=== PATIENT | male | born 1945 | race Caucasian/White ===

== ENCOUNTER → 2017-10-14 08:15 | Outpatient (CLI) | payer MEDICARE, OTHER, SELFPAY ==
[2017-10-14 10:46] LABS: AST(SGOT) 17 U/L (15-37); Alanine Aminotransfer ALT/SGPT 22 U/L (16-61); Albumin, Serum 3.8 g/dL (3.2-5.0); Alkaline Phosphatase 96 U/L (45-117); Bilirubin, Direct 0.12 mg/dL (0.00-0.30); Cholesterol 137 mg/dL (200); Globulin 3.3 g/dL (2.2-4.2); High Density Lipoprotein 37 mg/dL; Protein, Total 7.1 g/dL (6.4-8.2); Triglycerides 101 mg/dL; Very Low Density Lipoprotein 20 mg/dL (5-40)
== END ==
PROVIDERS: Family Provider Internal Medicine; PCP Internal Medicine; Visit Provider Internal Medicine Cardiovascular Disease
DX: E78.5 Hyperlipidemia, unspecified (principal); Z79.899 Other long term (current) drug therapy
CPT/HCPCS: 36415; 80061; 80076

== ENCOUNTER → 2018-06-06 13:16 | Outpatient (CLI) | payer MEDICARE, OTHER, SELFPAY ==
--- NOTE | 2018-06-06 13:20 | CT_ITS ---
STUDY: CT ABDOMEN AND PELVIS WITH AND WITHOUT CONTRAST REASON FOR EXAM: Male, 73 years old. Microhematuria RADIATION DOSAGE (If Supplied By Facility): CTDIvol = ( 22.36 ) mGy, DLP = ( 2009.42 ) mGycm TECHNIQUE: Transaxial images were obtained from the dome of the diaphragm to the symphysis pubis without oral contrast. 100mL ml of Isovue 300 contrast was administered. Sagittal and coronal images were reconstructed. Individualized dose optimization techniques were used for this CT. COMPARISON: None. FINDINGS: The lung bases are clear. Multiple scattered hepatic cysts ranging in size from 4 mm to 3.5 cm.. No dilated intrahepatic biliary radicles. The gallbladder is normal with no calcifications within it. There is no pericholecystic fluid collection or streakiness The spleen is normal. The pancreas is normal. Both adrenals are normal. A solid 1.5 cm left renal mass. Multiple benign right renal cysts. The stomach is normal. There is no bowel distention, acute appendicitis or diverticulitis. No constricting lesions are seen in large bowel. The abdominal wall is intact with no hernias. There is no ascites or any free intraperitoneal air. No indication of epiploic appendagitis The vascular structures in the retroperitoneum are normal. There is no retrocrural, retroperitoneal or mesenteric adenopathy. The bones and joints are normal. The urinary bladder is normal.--The prostate is normal. There is no inguinal or pelvic adenopathy. There is no inguinal hernia. . CT/CT Abd/Pelvis W/WO Contrast IMPRESSION: Multiple benign hepatic cysts. A 1.5 cm solid left renal mass. Multiple benign right renal cyst. No acute appendicitis or diverticulitis Electronically Signed: Madan Marie MD at 5:04 EDT Tel , Service support ,
[2018-06-06 13:31] LABS: EGFR FINGERSTICK > 60.0000 mL/min (>60)
== END ==
PROVIDERS: Family Provider Internal Medicine; PCP Internal Medicine; Referring Provider Nurse Practitioner Adult Health; Visit Provider Nurse Practitioner Adult Health
DX: R31.29 Other microscopic hematuria (principal)
CPT/HCPCS: 74178; Q9967

== ENCOUNTER → 2018-06-10 10:56 | Outpatient (CLI) | payer MEDICARE, OTHER, SELFPAY ==
--- NOTE | 2018-06-10 11:01 | US_ITS ---
STUDY: RENAL ULTRASOUND - COMPLETE REASON FOR EXAM: Male, 73 years old. Left renal mass. Abnormal CT abdomen and pelvis. TECHNIQUE: Ultrasound evaluation of the kidneys was performed with real-time and static rucker-scale imaging. COMPARISON: CT abdomen and pelvis June 06, 2018 FINDINGS: RIGHT KIDNEY: Normal location of the right kidney, which is normal in size. The right kidney measures 11.3 x 5.9 x 6.0 cm. There is a normal cortex of the right kidney. The renal cortex measures 1.8 cm. Reveal cortical cysts are identified. One is at the anterolateral margin of the midpole, measuring 3.0 x 2.6 x 2.7 cm. Another is at the medial margin of the upper pole, measuring 1.1 x 1.2 x 0.9 cm. There is at the anterior midpole, measuring 6 x 9 x 7 mm. There are no right renal calculi. There is no right hydronephrosis. DISTAL RIGHT URETER: There is non-visualization of the distal right ureter. There is no demonstrated right ureterovesical junction calculus. There is a visualized right ureteral jet. LEFT KIDNEY: Normal location of the left kidney, which is normal in size. The left kidney measures 11.2 x 5.7 x 5.7 cm. There is a normal cortex of the left kidney. The renal cortex measures 1.7 cm. An incompletely defined 1.95 x 2.3 x 1.9 cm mildly hypoechoic soft tissue mass is seen at the anterolateral mid to lower pole. There are also cortical cysts. There is a partially septated 2.0 x 1.3 x 1.5 cm cyst in the anterior mid to lower pole. A 1.4 x 1.4 x 1.0 cm cortical cyst is seen in the anterolateral upper to midpole. An 11 x 10 mm cortical cyst emanates from the tip of the lower pole. There are no left renal calculi. There is no left hydronephrosis. DISTAL LEFT URETER: There is non-visualization of the distal left ureter. There is no demonstrated left ureterovesical junction calculus. There is a visualized left ureteral jet. BLADDER: The distended urinary bladder has a volume of 230 ml. The bladder measures 9.9 x 5.8 x 4.6 cm. There is a normal wall thickness of the distended urinary bladder. There is no demonstrated mass within the urinary bladder. There are no demonstrated bladder calculi. US/Kidney and Bladder IMPRESSION: 1. Bilateral renal cortical cysts, as described. No hydronephrosis. 2. 2.3 cm solid mass in the mid to lower pole of the left kidney. The appearance is nonspecific, but neoplastic malignancy must be considered until proven otherwise. One might consider ultrasound-guided kidney biopsy or, if more imaging is performed, MRI. 3. Unremarkable urinary bladder. Electronically Signed: Michael Mackay MD at 18:00 EDT , Service support ,
== END ==
PROVIDERS: Family Provider Internal Medicine; PCP Internal Medicine; Referring Provider Nurse Practitioner Adult Health; Visit Provider Nurse Practitioner Adult Health
DX: N28.89 Other specified disorders of kidney and ureter (principal)
CPT/HCPCS: 76770

== ENCOUNTER → 2018-09-02 10:45 | Outpatient (CLI) | payer MEDICARE, OTHER, SELFPAY ==
--- NOTE | 2018-09-02 10:49 | US_ITS ---
STUDY: THYROID ULTRASOUND REASON FOR EXAM: Male, 73 years old. Follow up thyroid nodules TECHNIQUE: Transverse and longitudinal ultrasound evaluation of the thyroid was performed with real-time and static tong-scale imaging. COMPARISON: October 10, 2015 FINDINGS: RIGHT LOBE: 4.9 x 2.1 x 2.0 cm. Homogeneous echotexture. There is a hypoechoic nodule in the lower pole measuring 16.0 x 12.7 x 14.0 mm. This previously measured 18.4 x 10.3 x 15.9 mm. LEFT LOBE: 4.4 x 2.0 x 2.2 cm. Homogeneous echotexture. There is a heterogeneous mixed echogenicity nodule in the upper pole measuring 8.1 x 4.3 x 6.1 mm. This previously measured 6.2 x 4.3 x 6.9 mm. There is another hypoechoic nodule in the upper pole measuring 3.9 x 4.1 x 4.1 mm. This previously measured 6.5 x 5.1 x 4.5 mm. ISTHMUS: 6.0 mm. The regional lymph nodes are unremarkable. US/Thyroid IMPRESSION: No significant changes in the bilateral thyroid nodules. Electronically Signed: Kimberly Olivas MD at 10:47 EST Tel Direct: [phone], Service support ,
== END ==
PROVIDERS: Family Provider Internal Medicine; PCP Internal Medicine; Referring Provider Internal Medicine; Visit Provider Internal Medicine
DX: E04.1 Nontoxic single thyroid nodule (principal)
CPT/HCPCS: 76536

== ENCOUNTER → 2018-09-16 06:51 | Outpatient (CLI) | payer MEDICARE, OTHER, SELFPAY ==
[2018-09-08 13:40] VITALS: BMI 28.1
--- NOTE | 2018-09-16 12:38 | STRESSREP ---
Stress Test Report Date: 09/16/2018 Procedure: Stress nuclear imaging study Indications: Chest pain; CAD; PCI Consent: Per the patient Procedure: The patient exercised on a Eder protocol for 7 minutes completing stage I and 1 minute of stage II achieving a peak heart rate of 142 beats per minute (95% predicted maximal heart rate) with a peak blood pressure was 184/92 mmHg and a peak MET capacity of 8 METS. The baseline ECG demonstrated normal sinus rhythm. The peak exercise ECG demonstrated no obvious ECG changes. There were no cardiac dysrhythmias pretest, during exercise, or recovery. The functional capacity was considered good. The patient had no complaint of chest discomfort during exercise or recovery. The examination was discontinued secondary to dyspnea. Impression: 1. Technically adequate (percent predicted maximal heart rate greater than 85%) exercise tolerance test 2. Peak exercise ECG with no obvious ECG changes 3. Nuclear images pending Myocardial perfusion imaging study: Technique: The patient was injected with 11.1 mci of technetium 99 M Cardiolite and subsequently rest SPECT Cardiolite nuclear imaging was obtained in the horizontal long, vertical long, and short axis views. The patient exercised on a Eder protocol for 7 minutes completing stage I and 1 minute of stage II achieving a peak heart rate of 142 beats per minute (95% predicted maximal heart rate) with a peak blood pressure was 84/92 mmHg and a peak MET capacity of 8 METS. The patient was injected with 33.5 mci of technetium 99 M Cardiolite and subsequently stress SPECT Cardiolite nuclear imaging was obtained in the horizontal long, vertical long, and short axis views. A gated Cardiolite study at peak stress was obtained. Interpretation: Rest and stress SPECT Cardiolite nuclear imaging status post realignment, normalization, and attenuation correction, demonstrates at rest areas of extra cardiac/gastrointestinal tracer uptake near the inferior segments which appears to be less prominent following stress. At rest there appears to be relative uniform tracer uptake. Following stress there is notation of an area of diminished tracer uptake in portions of the basal towards mid inferior segments. There is end systolic thickening and brightening. The gated Cardiolite study demonstrates myocardial thickening and normal motion. The reported LVEF is 59%. Impression: 1. Rest and stress SPECT Cardiolite nuclear imaging demonstrate myocardial perfusion changes status post stress demonstrating an area of diminished tracer uptake in portions of the basal to mid inferior segments appearing compatible with an area of stress induced myocardial ischemia. 2. The gated Cardiolite study reports an LVEF of 59%. This note was generated using a voice recognition system and there may be incorrect words, spelling or punctuation that were not noted when reviewing the office note prior to saving.
--- OUTSIDE RECORDS SUMMARY | 2018-11-18 07:05 | XMS RPT_ITS | Continuity of Care Document ---
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 Denisse Unavailable Unavailable Slarb 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Noaha Unavailable Unavailable Unavailable Unavailable Problems Name Dates Details Annual Medicare Phyiscal WITHOUT abnormal findings (Renamed from Encounter for general adult medical examination without abnormal findings) (Z00.00, V70.9) Status: Active Anticoagulated (Z79.01, V58.61) Status: Active Anxiety (F41.9, 300.00) Status: Active BMI 27.0-27.9,adult (Z68.27, V85.23) Status: Active BMI 27.0-27.9,adult (Z68.27, V85.23) Status: Active BMI 27.0-27.9,adult (Z68.27, V85.23) Status: Active BMI 28.0-28.9,adult (Z68.28, V85.24) Status: Active CAD (coronary artery disease) (I25.10, 414.00) Status: Active Current nonsmoker (Z78.9, V49.89) Status: Active Encounter for screening for malignant neoplasm of colon (Renamed from Special screening for malignant neoplasms, colon) (Z12.11, V76.51) Comments: last scope 2012 good for 10 yrs Status: Active Hematuria, microscopic (R31.29, 599.72) Status: Active Hyperlipidemia (E78.5, 272.4) Comments: on less statin less achy less tired - # still good Status: Active Hypertensive heart disease without heart failure (I11.9, 402.90) Comments: ID March 17 stents-- mild elevation adn progression -- did dose adj at 12/11 ov Status: Active Need for prophylactic vaccination and inoculation against influenza (Renamed from Need for immunization against influenza) (Z23, V04.81) Status: Active Need for zoster vaccination (Z23, V04.89) Status: Active Nonsmoker (Z78.9, V49.89) Status: Active Non-smoker (Z78.9, V49.89) Status: Active Renal mass, left (N28.89, 593.9) Status: Active Screening for prostate cancer (Z12.5, V76.44) Status: Active Smoker (F17.200, 305.1) Comments: social smoker, only on the weekends will have 1-2 Status: Active Thyroid nodule (E04.1, 241.0) Status: Active Upper respiratory infection (J06.9, 465.9) Status: Active Vitamin B12 deficiency (E53.8, 266.2) Status: Active Vitamin D deficiency, unspecified (E55.9, 268.9) Status: Active Medications Name Dates Details ASPIRIN LOW DOSE, 81MG (Oral Tablet) 1 QD for 0 days Refills: 0 Ordered:09-Aug-2009 Trisha Loya Atorvastatin Calcium 80 MG Oral Tablet 1 Tablet qod for 0 days Quantity: 30 {Tablet} Refills: 3 Ordered:05-May-2018 Sandra Madrigal DO, DO, Kathleen Start : 05-May-2018 Active Escitalopram Oxalate 20 MG Oral Tablet 1 (one) Tablet Tablet qhs for 0 days Quantity: 30 {Tablet} Refills: 3 Ordered:25-Apr-2018 Denisse Alvarado LPN Start : 17-Apr-2018 Active Lexapro 20 MG Oral Tablet 1 Tablet QD for 0 days Quantity: 30 {Tablet} Refills: 3 Ordered:07-Jul-2018 Sandra Madrigal DO, DO, Kathleen Start : 07-Jul-2018 End : 17-Apr-2018 Active Lisinopril 10 MG Oral Tablet 1 (one) Tablet Tablet qd for 0 days Quantity: 30 {Tablet} Refills: 3 Ordered:25-Apr-2018 Denisse Alvarado LPN Start : 17-Apr-2018 Active NITROGLYCERIN, 0.4MG (Sublingual Tablet Sublingual) 1 q 5minutes x3 (0.4 MG) Active Toprol XL 25 MG Oral Tablet Extended Release 24 Hour 1 Tablet ER 24HR qd for 0 days Quantity: 30 {Tablet} Refills: 6 Ordered:07-Jul-2018 Sandra Madrigal DO, DO, Kathleen Start : 07-Jul-2018 Active ALBUTEROL SULFATE, (2.5 MG/3ML)0.083% (Inhalation Nebulization Solution) 1 Nebulized Soln 1-2 puffs q 6h for 0 days Quantity: 1 {Nebulized_Soln} Refills: 0 Ordered:24-Apr-2012 Denisse Alvarado LPN Start : 08-Feb-2009 End : 24-Apr-2012 Inactive Augmentin 875-125 MG Oral Tablet 1 Tablet Tablet bid for 14 days Quantity: 28 {Tablet} Refills: 0 Ordered:14-Nov-2017 Denisse Alvarado LPN Start : 14-Nov-2017 End : 28-Nov-2017 Inactive Comments:Take with food BACTRIM DS, 800-160MG (Oral Tablet) 1 (one) Tablet bid for 0 days Quantity: 20 {Tablet} Refills: 0 Ordered:13-Sep-2009 Denisse Alvarado LPN Start : 03-Aug-2009 Inactive BACTROBAN NASAL, 2% (Nasal Ointment) 1 (one) Ointment bid for 5 days Quantity: 1 {Gram(s)} Refills: 0 Ordered:09-Aug-2009 Allan Darlene Canas Start : 09-Aug-2009 End : 14-Aug-2009 Inactive BIAXIN XL PAC, 500MG (Oral Tablet Extended Release 24 Hour) 2 (two) Tablet ER 24HR daily for 10 days Quantity: 20 {Tablet_ER_24HR} Refills: 0 Ordered:08-Feb-2009 Ivett DAVISSuzanne E Start : 08-Feb-2009 End : 18-Feb-2009 Inactive Brilinta 90 MG Oral Tablet 1 bid for 0 days Refills: 0 Ordered:27-Aug-2017 Denisse Ann Start : 21-Mar-2015 End : 27-Aug-2017 Inactive BYSTOLIC, 5MG (Oral Tablet) 1 Tablet qd for 0 days Quantity: 30 {Tablet} Refills: 3 Ordered:22-Oct-2008 Denisse Alvarado LPN End : 01-Nov-2008 Inactive Cetirizine Hydrochloride 10mg 1 tab PRN Inactive CHERATUSSIN AC, 100-10MG/5ML (Oral Syrup) 1 Teaspoon(s) q6-8 hrs prn for cough for 0 days Quantity: 6 {Ounce(s)} Refills: 0 Ordered:04-Nov-2013 Denisse Alvarado LPN Start : 05-Jun-2013 End : 04-Nov-2013 Inactive Clotrimazole 10 MG Mouth/Throat Cynthia 1 (one) Cynthia Cynthia 5 x daily for 10 days Quantity: 50 {Cynthia} Refills: 0 Ordered:05-Nov-2017 Josselin Sanchez Start : 05-Nov-2017 End : 15-Nov-2017 Inactive CLOTRIMAZOLE, 10MG (Mouth/Throat Lozenge) 1 Lozenge 5 x daily for 14 days Quantity: 60 {Lozenge} Refills: 0 Ordered:05-Jun-2013 Ivett DAVIS Antonette Start : 05-Jun-2013 End : 19-Jun-2013 Inactive ERGOCALCIFEROL, 52355LUVF (Oral Capsule) 1 Capsule weekly for 0 days Quantity: 12 {Capsule} Refills: 3 Ordered:03-Nov-2012 Denisse Alvarado LPN Start : 12-May-2012 End : 03-Nov-2012 Inactive GUAIATUSSIN AC, 100-10MG/5ML (Oral Syrup) 1 Syrup 1tsp qhs for 0 days Quantity: 6 {Syrup} Refills: 0 Ordered:13-Sep-2009 Denisse Alvarado LPN Start : 12-Jan-2009 Inactive KAPIDEX, 60MG (Oral Capsule Delayed Release) 1 (one) Capsule DR qd for 15 days Refills: 0 Ordered:12-Oct-2009 Natalia Ratliff RN Start : 13-Sep-2009 End : 28-Sep-2009 Inactive LEVAQUIN, 500MG (Oral Tablet) 1 Tablet Daily for 10 days Quantity: 10 {Tablet} Refills: 0 Ordered:20-Sep-2009 Natalia Ratliff RN Start : 20-Sep-2009 End : 30-Sep-2009 Inactive LOPRESSOR, 50MG (Oral Tablet) 1 (one) Tablet bid for 0 days Quantity: 60 {Tablet} Refills: 3 Ordered:24-Jul-2011 Rona Painter LPN Start : 23-Jul-2011 End : 24-Jul-2011 Inactive NORVASC, 5MG (Oral Tablet) 1 (one) Tablet qd for 0 days Quantity: 30 {Tablet} Refills: 0 Ordered:07-Dec-2014 Suzanne Root CNP Start : 25-May-2014 End : 07-Dec-2014 Inactive PREDNISONE, 20MG (Oral Tablet) 1 Tablet TAD for 0 days Quantity: 20 {Tablet} Refills: 0 Ordered:13-Sep-2009 Denisse Alvarado LPN Start : 08-Feb-2009 Inactive Comments:Take 2 for 5 days, 1 for 5 days, 1/2 for 5 days PROVENTIL HFA, 108 (90 Base)MCG/ACT (Inhalation Aerosol Solution) 1 or 2 puffs Aerosol Soln q 6hours prn for 0 days Quantity: 1 {Aerosol_Soln} Refills: 1 Ordered:25-May-2014 Denisse Alvarado LPN Start : 04-Nov-2012 End : 25-May-2014 Inactive Comments:called to [facility] 11-04-12 sari ZOSTAVAX, 15337MSO/0.65ML (Subcutaneous Solution Reconstituted) 1 For Solution injection for 0 days Quantity: 1 {For_Solution} Refills: 0 Ordered:24-Apr-2012 Denisse Alvarado LPN Start : 21-Aug-2010 End : 24-Apr-2012 Inactive ANITA-D 12 HOUR, 60-120MG (Oral Tablet Extended Release 12 Hour) 1 (one) Tablet ER 12HR bid for 0 days Refills: 0 Ordered:10-Jan-2009 Lolita Stephenson Start : 10-Jan-2009 End : 08-Feb-2009 Discontinued CIPROFLOXACIN HCL, 0.3% (Ophthalmic Solution) 2 (two) Drop(s) QID for 0 days Quantity: 1 {Bottle(s)} Refills: 0 Ordered:14-Apr-2007 Lolita Stephenson Start : 14-Apr-2007 End : 13-Jul-2008 Discontinued CORICIDIN HBP COLD/FLU, 2-325MG (Oral Tablet) 1 (one) Tablet daily for 0 days Refills: 0 Ordered:13-Jul-2008 Lolita Stephenson Start : 13-Jul-2008 End : 12-Jan-2009 Discontinued Lisinopril-Hydrochlorothiazide 20-25 MG Oral Tablet 1/2 Tablet qd for 30 days Quantity: 30 {Tablet} Refills: 3 Ordered:17-Apr-2018 Sandra Madrigal DO, DO, Kathleen Start : 17-Apr-2018 End : 17-Apr-2018 Discontinued Zithromax Z-Kaiser 250 MG Oral Tablet 1 Tablet TAD for 0 days Quantity: 1 {Tablet} Refills: 0 Ordered:14-Nov-2017 Josselin Sanchez Start : 05-Nov-2017 End : 14-Nov-2017 Discontinued Allergies and Adverse Reactions Name Dates Details No Known Drug Allergies (Allergy) Status: Active Past Medical History Name Dates Details Abdominal pain, acute, left upper quadrant (R10.12, 789.02) Status: Inactive as of 03-Nov-2012 Abdominal pain, acute, right upper quadrant (R10.11, 789.01) Status: Inactive as of 03-Nov-2012 Abnormal blood chemistry (R79.9, 790.6) Comments: low platelets Status: Inactive as of 07-Dec-2014 Abnormal chest x-ray (R93.89, 793.2) Status: Resolved as of 07-Dec-[address] of the abdomen (R93.5, 793.6) Status: Resolved as of 03-Nov-2012 Abnormal CXR (793.1) Status: Resolved as of 07-Dec-2014 Abnormal lung sounds (R09.89, 786.7) Status: Resolved as of 07-Dec-2014 Accelerated essential hypertension (I10, 401.0) Status: Resolved as of 07-Dec-2014 Acute sinusitis, unspecified (J01.90, 461.9) Status: Inactive as of 07-Feb-2009 Asthma (J45.909, 493.90) Status: Inactive as of 07-Dec-2014 Body aches (R52, 780.96) Status: Inactive as of 19-Dec-2017 Bronchitis (J40, 490) Status: Inactive as of 04-Nov-2013 Che infection of mouth (112.0) Status: Resolved as of 07-Dec-2014 Candidiasis (B37.9, 112.9) Status: Inactive as of 19-Dec-2017 Carcinoma in situ of skin, unspecified (D04.9, 232.9) Status: Resolved as of 03-Nov-2012 Ceruminosis, bilateral (Renamed from Excessive cerumen in both ear canals) (H61.23, 380.4) Status: Inactive as of 19-Dec-2017 Ceruminosis, right (Renamed from Excessive cerumen in ear canal, right) (H61.21, 380.4) Status: Inactive as of 19-Dec-2017 Controlled diabetes mellitus (E11.9, 250.00) Comments: such good control if haic stays great can make visit q 6mo Status: Resolved as of 19-Dec-2017 Cough (R05, 786.2) Status: Inactive as of 27-Nov-2017 Cough (R05, 786.2) Status: Inactive as of 21-Mar-2015 Diverticulitis (K57.92, 562.11) Comments: new dx Status: Resolved as of 17-Oct-2009 Dizziness (R42, 780.4) Status: Inactive as of 21-Mar-2015 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) Status: Resolved as of 07-Dec-2014 Encounter for Medicare annual wellness exam (Z00.00, V70.0) Comments: -09-10 colonoscopy 6-14 repeat in 5 years, PSA 11-04-13, all immunizations are up to date, told to get Prevnar 13 at local pharmacy, reviewed all tests and questions Status: Inactive as of 21-Mar-2015 Epigastric pain (R10.13, 789.06) Status: Inactive as of 03-Nov-2012 Folliculitis (L73.9, 704.8) Status: Resolved as of 08-May-2012 Hemorrhoids (K64.9, 455.6) Status: Inactive as of 03-Nov-2012 Hypertension, essential, benign (I10, 401.1) Status: Inactive as of 05-Apr-2016 Low HDL (under 40) (E78.6, 272.5) Status: Inactive as of 07-Dec-2014 Malaise and fatigue (R53.81, 780.79) Status: Resolved as of 03-Nov-2012 Nasal Congestion (478.1) Status: Inactive as of 07-Feb-2009 Nasal congestion (R09.81, 478.19) Comments: mucinex Status: Resolved as of 07-Dec-2014 Nasal drainage (J34.89, 478.19) Status: Inactive as of 19-Dec-2017 Need for prophylactic vaccination and inoculation against influenza (Z23, V04.81) Comments: Lot:[id number]:02/23/16Amt:0.5mlRoute:IMSite: L DltdGiven By: ERLIN Call signed Status: Inactive as of 26-Sep-2015 Need for prophylactic vaccination and inoculation against other specified disease (Z23, V05.8) Status: Inactive as of 21-Mar-2015 Otalgia, right (H92.01, 388.70) Status: Inactive as of 27-Nov-2017 Other fatigue (R53.83, 780.79) Comments: will ck lab and do mid afternoon snack adn chg diet and see how feesl Status: Inactive as of 28-Aug-2018 Other specified viral infection, in conditions classified elsewhere and of unspecified site (B97.89, 079.89) Status: Resolved as of 02-Feb-2009 Preop examination (Z01.818, V72.84) Status: Inactive as of 21-Mar-2015 Preop examination (Z01.818, V72.84) Status: Inactive as of 19-Dec-2017 Serous conjunctivitis, unspecified laterality (H10.239, 372.01) Status: Resolved as of 02-Feb-2009 Smoker (F17.200, 305.1) Status: Inactive as of 26-Sep-2015 SOB (shortness of breath) (R06.02, 786.05) Comments: Wants to do Spirometry on his next OV with Dr. Madrigal 11/27. Status: Inactive as of 19-Dec-2017 Unspecified asthma with (acute) exacerbation (J45.901, 493.92) Status: Resolved as of 08-May-2012 Unspecified Diagnosis Status: Inactive as of 21-Mar-2015 Procedures Procedure Dates Details Angioplasty Completed Comments: x2 [facility] 03-15-15 [facility] Appendectomy Completed Cataract Extraction-Right Completed Comments: Dr. Paul Facial surgery Completed Vasectomy Completed Date Value Details 10-Jun-2018 Kidney and Bladder Result: Comments: See Note; NOTES: [facility] Imaging Services [address] [place] [address] Kidney and Bladder MR#: [id number] Acct: [id number] Name: RICKI BHARDWAJ Rep #: [id number] OB: 1945 M 73 From: Jerome Mackay MD PCP: Catherine Madrigal DO Status: REG CLI Study: Kidney and Bladder Date of Exam: 06/10/18 Exam# [id number] Ordering Dr: Yessica Siu THORACIC SURGEON-C STUDY: RENAL ULT RASOUND - COMPLETE REASON FOR EXAM: Male, 73 years old. Left renal mass. Abnormal CT abdomen and pelvis. TECHNIQUE: Ultrasound evaluation of the kidneys was performed with real-time and static rucker-sc beto imaging. COMPARISON: CT abdomen and pelvis June 06, 2018 FINDINGS: RIGHT KIDNEY: Normal location of the right kidney, which is normal in size. The right kid poonam measures 11.3 x 5.9 x 6.0 cm. There is a normal cortex of the right kidney. The renal cortex measures 1.8 cm. Reveal cortical cysts are identified. One is at the anterolateral margin of the midpole, measuring 3.0 x 2.6 x 2.7 cm. Another is at the medial margin of the upper pole, measuring 1.1 x 1.2 x 0.9 cm. There is at the anterior midpole, measuring 6 x 9 x 7 mm. There are no right renal calculi . There is no right hydronephrosis. DISTAL RIGHT URETER: There is non-visualization of the distal right ureter. There is no demonstrated right ureterovesical junction calculus. There is a visualized ri ght ureteral jet. LEFT KIDNEY: Normal location of the left kidney, which is normal in size. The left kidney measures 11.2 x 5.7 x 5.7 cm. There is a normal cortex of the left kidney. The renal cortex m easures 1.7 cm. An incompletely defined 1.95 x 2.3 x 1.9 cm mildly hypoechoic soft tissue mass is seen at the anterolateral mid to lower pole. There are also cortical cysts. There is a partially septate d 2.0 x 1.3 x 1.5 cm cyst in the anterior mid to lower pole. A 1.4 x 1.4 x 1.0 cm cortical cyst is seen in the anterolateral upper to midpole. An 11 x 10 mm cortical cyst emanates from the tip of the lo wer pole. There are no left renal calculi. There is no left hydronephrosis. DISTAL LEFT URETER: There is non-visualization of the distal left ureter. There is no demonstrated left ureterovesical juncti on calculus. There is a visualized left ureteral jet. BLADDER: The distended urinary bladder has a volume of 230 ml. The bladder measures 9.9 x 5.8 x 4.6 cm. There is a normal wall thickness of the dis tended urinary bladder. There is no demonstrated mass within the urinary bladder. There are no demonstrated bladder calculi. US/Kidney and Bladde r IMPRESSION: 1. Bilateral renal cortical cysts, as described. No hydronephrosis. 2. 2.3 cm solid mass in the mid to lower pole of the left kidney. The appearance is nonspecific, but neoplastic malignan cy must be considered until proven otherwise. One might consider ultrasound-guided kidney biopsy or, if more imaging is performed, MRI. 3. Unremarkable urinary bladder. Electronically Signed: Michael Macaky MD at 18:00 EDT , Service support , CC: Catherine Madrigal DO; Yessica Siu NP Cook Syrup Maker: Signed 06-Jun-2018 CT Abd/Pelvis W/WO Contrast Result: Comments: See Note; NOTES: [facility] Imaging Services [address] [place] [address] Abd/Pelvis W/WO Contrast MR#: [id number] Acct: [id number] Name: RICKI BHARDWAJ Rep #: [id number] : 1945 M 73 From: Madan Marie MD PCP: Catherine Madrigal DO Status: REG CLI Study: CT Abd/Pelvis W/WO Contrast Date of Exam: 06/06/18 Exam# [id number] Ordering Dr: Eb Siu THORACIC SURGEON-C STUDY: CT ABDOMEN AND PELVIS WITH AND WITHOUT CONTRAST REASON FOR EXAM: Male, 73 years old. Microhematuria RADIATION DOSAGE (If Supplied By Facility): CTDIvol = ( 22.36 ) mGy, DLP = ( 2009. 42 ) mGycm TECHNIQUE: Transaxial images were obtained from the dome of the diaphragm to the symphysis pubis without oral contrast. 100mL ml of Isovue 300 contrast was administered. Sagittal and coronal images were reconstructed. Individualized dose optimization techniques were used for this CT. COMPARISON: None. FINDINGS: The lung bases are clear. Multiple scat tered hepatic cysts ranging in size from 4 mm to 3.5 cm.. No dilated intrahepatic biliary radicles. The gallbladder is normal with no calcifications within it. There is no pericholecystic fluid collecti on or streakiness The spleen is normal. The pancreas is normal. Both adrenals are normal. A solid 1.5 cm left renal mass. Multiple benign right renal cysts. The stomach is normal. There is no bowel d istention, acute appendicitis or diverticulitis. No constricting lesions are seen in large bowel. The abdominal wall is intact with no hernias. There is no ascites or any free intraperitoneal air. No i ndication of epiploic appendagitis The vascular structures in the retroperitoneum are normal. There is no retrocrural, retroperitoneal or mesenteric adenopathy. The bones and joints are normal. The urinary bladder is normal.--The prostate is normal. There is no inguinal or pelvic adenopathy. There is no inguinal hernia. . CT/CT Abd/Pelvis W /WO Contrast IMPRESSION: Multiple benign hepatic cysts. A 1.5 cm solid left renal mass. Multiple benign right renal cyst. No acute appendicitis or diverticulitis Electronically Signed: Madan Brooks MD at 5:04 EDT Tel , Service support , CC: Catherine Madrigal DO; Yessica Siu NP Cook Syrup Maker: Signed 24-Oct-2017 Cardiology Visit Report Result: Comments: See Note; NOTES: [facility] [address] [place] [address] OFFICE VISIT Date of Service: 10/23/17 MR#: [id number] Acct: [id number] Name: RICKI BHARDWAJ ep #: [id number] : 1945 Provider: Dana Matute Age/Sex: 72/M Location: [facility] Status: Signed HPI HPI Details: RICKI BHARDWAJ is a 72 M who presents to the office today for for a cardiovasc ular follow-up. He established with us in March of 2015 following an acute inferolateral ST-T segment eevation myocardial infarction. He had a thrombectomy and stenting to his circumflex and OM. From a cardiac standpoint, patient is doing well. He does not have any chest discomfort/heaviness/tightness. His exercise tolerance is stable for his age. He does not have any worsening symptoms of shortnes s of breath. He denies any PND. He does not have any orthopnea. He does not have any symptoms of congestive heart failure. He does not have any palpitations that he is aware of. He does not have any lig htheadedness or dizziness. He does not have any near-syncope or syncope. He does not have any lower extremity edema. He does not have any symptoms of claudication. 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 Ac companied by: None Is patient in pain?: No Allergies No Known Allergies Allergy (Verified 10/23/17 14:37) Medications Aspirin [Aspirin, Baby] 81 mg PO DAILY@0800 04/14/15 [History Confirmed 8] Atorvastatin Calcium [Lipitor] 80 mg PO QHS 04/14/15 [History Confirmed 10/23/17] Citalopram [Celexa] 20 mg PO DAILY 04/14/15 [History Confirmed 10/23/17] Metoprolol(XL)Succ [Toprol Xl (Beta Mackenzie) ] 25 mg PO DAILY 04/14/15 [History Confirmed 10/23/17] Nitroglycerin [Nitrostat] 0.4 mg SUBLINGUAL Q5M PRN 04/14/15 [History Confirmed 10/23/17] ascorbic acid (vitamin C) 500 mg tablet 500 mg PO QDAY [History Confirmed 10/23/17] lisinopril 5 mg tablet 5 mg PO DAILY tab 10/23/17 [History Confirmed 10/23/17] Ejection fraction %: 60 to 64 PFSH Medical History Mitral valve disorder (Chronic) Myocardial infarction (Chronic) Hypertension (Chronic) Hyperlipidemia (Chronic) Atherosclerotic heart disease of [place] coronary artery without angina pectoris (Chronic) 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) Surgical History Postsurgical percutaneous transluminal coronary angioplasty (PTCA) status (Chronic) Family History Father CVA (cerebral vascular accident) Mother Rheumatic fever FH: CABG (coronary artery bypass surgery) Social History Smoking Status: Current some day smoker alcohol intake: current alcohol intake frequency: a few times a week Alcohol type: beer substance use type: does not use caffeine: Yes Type: coffee Number of servings: 3 what type of physical activity do you participate in: none seatbelt use: always do you feel safe at home: Yes ROS Const Cons t: Negative for weakness, fatigue, fever(s) or headache(s) Eyes Eyes: Negative for blind spots, loss of peripheral vision or transient loss of vision ENT ENT: Negative for headache(s), dizziness, tinnit us or Nosebleed/epistaxis Cardio Chest Pain: No Palpitations: No Edema: None Muscle aches with walking: None Resp Respiratory: Negative for SOB with activity, SOB at rest, SOB orthopnea\SOB lying down o r Cough GI GI: Negative nausea, vomiting, heartburn or vomiting blood/hematemesis : Negative for hematuria Musc Musc: Negative for muscle aches/ myalgia Neuro Neuro: Negative for weakness, headache (s), dizziness, near syncope, syncope, lightheadedness or orthostatic symptoms Nicola Hematologic/Lymphatic: Negative for easy bleeding Endo Endo: Negative for fatigue Cardiology Exam Const Appearance: cooperative, no acute distress and well developed Orientation: alert, awake and oriented x3 Head Head: normocephalic and atraumatic Mouth: moist mucous membranes Eyes General: appearance normal, both ey es and all related structures Conjunctivae: conjunctivae normal Pupils: PERRL EOM: EOM intact bilaterally Neck Neck: normal visual inspection, no lymphadenopathy and no JVD Carotids: Negative bruit Neck Mass: Negative Neck mass Chest Chest inspection: normal inspection of the chest and symmetric chest movement Auscultation: Bilateral: Clear to Auscultation Cardio Palpation: normal PMI Rate: regular ra te Rhythm: regular rhythm Heart sounds: S1 normal, S2 normal and murmur; negative rub or gallop Murmur: Grade 2/6, soft and mid systolic GI GI: normal to inspection, soft, no hepatosplenomegaly and william l sounds present; negative tender Neuro General: alert, awake, oriented x3, CN's II-XI intact bilaterally and moves all extremities Extremities Pulses: Normal: Right Posterior Tibial Pulse, Left Posteri or Tibial Pulse, Right Radial Pulse, Left Radial Pulse Lower Extremity Edema: None: Bilateral Psych Psychological: normal affect Supplemental Info Echocardiogram in 2016 demonstrates Left ventricula r systolic function is normal. The estimated ejection fraction is 60 %. Mild concentric left ventricular hypertrophy. Mild (1+) mitral valve insufficiency. Trivial tricuspid valve insufficiency. Mild fo tone aortic valve calcification. Trivial pulmonic valve insufficiency. Assessment AND Plan 1. Atherosclerosis of [place] coronary artery of [place] heart without angina pectoris I25.10 Plan - KAREN Rebolledo Stable, from a cardiac standpoint patient does not have any symptoms of angina. We recommend that they continue with current aggressive medical management and risk factor modification. 2. Essential hypertension I10 Plan - KAREN Rebolledo Slightly elevated today however at home patient states that his been adequately controlled. Will have patient continue to monitor. He will let us know if it is elevated. 3. Pure hypercholesterolemia E78.00; E78.0 Plan - KAREN Rebolledo Recent lipid profile demonstrates total cholesterol of 137, HDL 37, LDL 80. Will continue to monit or. Plan Detail Additional Comments - KAREN Rebolledo The above patient was discussed with Dr. James in Dr. Dueñas's absence, he agrees with plan of care. Thank you for allowing us to part icipate in patient's plan of care, if you have any questions please do not hesitate to call. This note was generated using a voice recognition system and there may be incorrect words, spelling or punct uation errors that were not noted when reviewing the office note prior to saving. Follow Up 9 Months (PFM) Coding Level of Care Code Off vis,est,level 3 Diagnoses Atherosclerosis of [place] coronary a rtery of [place] heart without angina pectoris I25.10 [place] vs. transplanted heart: [place] heart Essential hypertension I10 Hypertension type: essential hypertension Pure hypercholesterolemia E78.00; E7 8.0 Hyperlipidemia type: pure hypercholesterolemia Coding Level of Care Code Off vis,est,level 3 Diagnoses Atherosclerosis of [place] coronary artery of [place] heart without angina pectoris I25.10 [place] vs. transplanted heart: [place] heart Essential hypertension I10 Hypertension type: essential hypertension Pure hypercholesterolemia E78.00; E78.0 Hyperlipidemia type: pure hypercholesterolemia 1055 <Electronically signed by Dana JONES> Date Dana JONES 10/24/17 1241<Electronically maicol d by Pacheco James MD> Cosigner Signature: Date (if applicable) Pacheco James MD CC: Catherine Madrigal 24-Oct-2017 Cardiology Visit Report Result: Comments: See Note; NOTES: [facility] [address] [place] [address] OFFICE VISIT Date of Service: 10/23/17 MR#: [id number] Acct: [id number] Name: RICKI BHARDWAJ ep #: [id number] : 1945 Provider: Dana Matute Age/Sex: 72/M [place] [facility] Status: Signed HPI HPI Details: RICKI BHARDWAJ, is a 72 M who presents to the office today for for a cardiovasc ular follow-up. He established with us in March of 2015 following an acute inferolateral ST-T segment eevation myocardial infarction. He had a thrombectomy and stenting to his circumflex and OM. From a cardiac standpoint, patient is doing well. He does not have any chest discomfort/heaviness/tightness. His exercise tolerance is stable for his age. He does not have any worsening symptoms of shortnes s of breath. He denies any PND. He does not have any orthopnea. He does not have any symptoms of congestive heart failure. He does not have any palpitations that he is aware of. He does not have any lig htheadedness or dizziness. He does not have any near-syncope or syncope. He does not have any lower extremity edema. He does not have any symptoms of claudication. 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 Ac companied by: None Is patient in pain?: No Allergies No Known Allergies Allergy (Verified 10/23/17 14:37) Medications Aspirin [Aspirin, Baby] 81 mg PO DAILY@0800 04/14/15 [History Confirmed 8] Atorvastatin Calcium [Lipitor] 80 mg PO QHS 04/14/15 [History Confirmed 10/23/17] Citalopram [Celexa] 20 mg PO DAILY 04/14/15 [History Confirmed 10/23/17] Metoprolol(XL)Succ [Toprol Xl (Beta Mackenzie) ] 25 mg PO DAILY 04/14/15 [History Confirmed 10/23/17] Nitroglycerin [Nitrostat] 0.4 mg SUBLINGUAL Q5M PRN 04/14/15 [History Confirmed 10/23/17] ascorbic acid (vitamin C) 500 mg tablet 500 mg PO QDAY [History Confirmed 10/23/17] lisinopril 5 mg tablet 5 mg PO DAILY tab 10/23/17 [History Confirmed 10/23/17] Ejection fraction %: 60 to 64 PFSH Medical History Mitral valve disorder (Chronic) Myocardial infarction (Chronic) Hypertension (Chronic) Hyperlipidemia (Chronic) Atherosclerotic heart disease of [place] coronary artery without angina pectoris (Chronic) 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) Surgical History Postsurgical percutaneous transluminal coronary angioplasty (PTCA) status (Chronic) Family History Father CVA (cerebral vascular accident) Mother Rheumatic fever FH: CABG (coronary artery bypass surgery) Social History Smoking Status: Current some day smoker alcohol intake: current alcohol intake frequency: a few times a week Alcohol type: beer substance use type: does not use caffeine: Yes Type: coffee Number of servings: 3 what type of physical activity do you participate in: none seatbelt use: always do you feel safe at home: Yes ROS Const Cons t: Negative for weakness, fatigue, fever(s) or headache(s) Eyes Eyes: Negative for blind spots, loss of peripheral vision or transient loss of vision ENT ENT: Negative for headache(s), dizziness, tinnit us or Nosebleed/epistaxis Cardio Chest Pain: No Palpitations: No Edema: None Muscle aches with walking: None Resp Respiratory: Negative for SOB with activity, SOB at rest, SOB orthopnea\SOB lying down o r Cough GI GI: Negative nausea, vomiting, heartburn or vomiting blood/hematemesis : Negative for hematuria Musc Musc: Negative for muscle aches/ myalgia Neuro Neuro: Negative for weakness, headache (s), dizziness, near syncope, syncope, lightheadedness or orthostatic symptoms Nicola Hematologic/Lymphatic: Negative for easy bleeding Endo Endo: Negative for fatigue Cardiology Exam Const Appearance: cooperative, no acute distress and well developed Orientation: alert, awake and oriented x3 Head Head: normocephalic and atraumatic Mouth: moist mucous membranes Eyes General: appearance normal, both ey es and all related structures Conjunctivae: conjunctivae normal Pupils: PERRL EOM: EOM intact bilaterally Neck Neck: normal visual inspection, no lymphadenopathy and no JVD Carotids: Negative bruit Neck Mass: Negative Neck mass Chest Chest inspection: normal inspection of the chest and symmetric chest movement Auscultation: Bilateral: Clear to Auscultation Cardio Palpation: normal PMI Rate: regular ra te Rhythm: regular rhythm Heart sounds: S1 normal, S2 normal and murmur; negative rub or gallop Murmur: Grade 2/6, soft and mid systolic GI GI: normal to inspection, soft, no hepatosplenomegaly and william l sounds present; negative tender Neuro General: alert, awake, oriented x3, CN's II-XI intact bilaterally and moves all extremities Extremities Pulses: Normal: Right Posterior Tibial Pulse, Left Posteri or Tibial Pulse, Right Radial Pulse, Left Radial Pulse Lower Extremity Edema: None: Bilateral Psych Psychological: normal affect Supplemental Info Echocardiogram in 2016 demonstrates Left ventricula r systolic function is normal. The estimated ejection fraction is 60 %. Mild concentric left ventricular hypertrophy. Mild (1+) mitral valve insufficiency. Trivial tricuspid valve insufficiency. Mild fo tone aortic valve calcification. Trivial pulmonic valve insufficiency. Assessment AND Plan 1. Atherosclerosis of [place] coronary artery of [place] heart without angina pectoris I25.10 Plan - KAREN Rebolledo Stable, from a cardiac standpoint patient does not have any symptoms of angina. We recommend that they continue with current aggressive medical management and risk factor modification. 2. Essential hypertension I10 Plan - KAREN Rebolledo Slightly elevated today however at home patient states that his been adequately controlled. Will have patient continue to monitor. He will let us know if it is elevated. 3. Pure hypercholesterolemia E78.00; E78.0 Plan - KAREN Rebolledo Recent lipid profile demonstrates total cholesterol of 137, HDL 37, LDL 80. Will continue to monit or. Plan Detail Additional Comments - KAREN Rebolledo The above patient was discussed with Dr. James in Dr. Dueñas's absence, he agrees with plan of care. Thank you for allowing us to part icipate in patient's plan of care, if you have any questions please do not hesitate to call. This note was generated using a voice recognition system and there may be incorrect words, spelling or punct uation errors that were not noted when reviewing the office note prior to saving. Follow Up 9 Months (PFM) Coding Level of Care Code Off vis,est,level 3 Diagnoses Atherosclerosis of [place] coronary a rtery of [place] heart without angina pectoris I25.10 [place] vs. transplanted heart: [place] heart Essential hypertension I10 Hypertension type: essential hypertension Pure hypercholesterolemia E78.00; E7 8.0 Hyperlipidemia type: pure hypercholesterolemia Coding Level of Care Code Off vis,est,level 3 Diagnoses Atherosclerosis of [place] coronary artery of [place] heart without angina pectoris I25.10 [place] vs. transplanted heart: [place] heart Essential hypertension I10 Hypertension type: essential hypertension Pure hypercholesterolemia E78.00; E78.0 Hyperlipidemia type: pure hypercholesterolemia 1055 <Electronically signed by Dana JONES> Date Dana JONES 10/24/17 1241<Electronically maicol d by Pacheco James MD> Cosigner Signature: Date (if applicable) Pacheco James MD CC: Catherine Madrigal DO 29-Dec-2015 ELECTROCARDIOGRAM, COMPLETE (ECG) ([id number]) Comments: sinus reyna -no acute changes Result: [MEASUREMENTS ANALYSIS] Date of Test: 12/29/2015 09:54:20; Heart Rate: 59; ME Interval: 176; QRS: 102; QT Interval: 408; Corrected QT Interval (QTc): 407; P Wave [place]: 23; QRS [place]: 11; T Wave [place] : 15; Blood Pressure: 148/84 [ECG DIAGNOSTIC STATEMENTS] Date of Test: 12/29/2015 09:54:20; Summary: 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 ABNORMAL 10-Oct-2015 Thyroid Result: Comments: See Note; NOTES: [facility] Imaging Services [address] [place] [id number] [address]ana 4d Thyroid MR#: [id number] Acct: [id number] Name: RICKI BHARDWAJ Rep # : [id number] : 1945 M 70 From: Franko Julien MD PCP: Catherine Madrigal DO Status: REG CLI Study: Thyroid Date of Exam: 10/10/15 Exam# [id number] Ordering Dr: Catherine Madrigal DO STUDY : THYROID ULTRASOUND REASON FOR EXAM: Male, 70 years old. History of thyroid nodule. TECHNIQUE: Ultrasound evaluation of the thyroid was performed with real-time and static tong-scale imaging. CO MPARISON: Comparison is made with prior study dated May 20, 2012. FINDINGS: RIGHT LOBE: The right lobe of the thyroid gland is enlarged and measures 6.3 c m x 2.6 cm x 2.5 cm. There is a homogeneous echotexture. There is a 1.8 cm x 1.6 cm a 1 cm solid nodule in the lower pole of the right lobe of the thyroid. This is essentially unchanged as compared to prior study. LEFT LOBE: The left lobe of the thyroid gland is enlarged and measures 5.4 cm x 2.2 cm x 2.4 cm. There is a homogeneous echotexture. There are 3 subcentimeter hypoechoic solid and cyst ic nodules scattered throughout the left lobe. The larger measures 7 mm x 5 mm x 5 mm. This is in the posterior aspect of the midportion of the left lobe ISTHMUS: The isthmus measures 6.0 mm. The regional lymph nodes are normal. IMPRESSION: Stable solid nodule in the right lobe of the thyroid. 3 subcentimeter nodules in the left lobe. Enlargement of the thyroid. Electronically Signed: Franko Julien MD at 8:04 EST Tel [phone], Service support [phone], CC: Catherine Madrigal DO Cook Syrup Maker: Signed 04-Oct-2015 Echocardiogram Complete Result: Comments: See Note; NOTES: [facility] Cardiovascular Services [address] [place] [address] Echo Complete 10/04/15 0956 MR#: [id number] Acct: [id number] Name: RICKI MERINO Rep #: [id number] : 1945 70 From: Ranjith Dueñas MD Attending Dr: Ranjith Dueñas MD Status: REG CLI Ordering Dr: Ranjith Dueñas MD Date: 10/04/15 Location: [facility] Sex: M C Admitte d: Procedure This was a 2D Doppler, Color Flow transthoracic echocardiogram. The exam was of adequate technical quality. Exam performed in department. Left Ventricle Normal LV size. Mild conc entric left ventricular hypertrophy. Left ventricular systolic function is normal. The estimated ejection fraction is 60 %. No regional wall motion abnormalities noted. Right Ventricle Normal RV si ze. Normal systolic function. Atria Normal left atrium. Normal right atrium. No doppler evidence for ASD. Mitral Valve There is no mitral annular calcification. Normal mitral valve. Mild (1+) mitr al valve insufficiency. Tricuspid Valve Normal tricuspid valve. Trivial tricuspid valve insufficiency. Aortic Valve Trisinus/trileaflet aortic valve. Mild focal aortic valve calcification. Pulm onic Valve The pulmonic valve is not well visualized. Trivial pulmonic valve insufficiency. Great Vessels Normal sized aortic root. Pericardium/Pleural No pericardial effusion. MMode/2D Measure ments AND Calculations LVIDd: 4.2 cm IVSd: 1.5 cm Ao root diam: 3.5 cm LAV(MOD- bp): 36.4 ml LVIDs: 2.9 cm LVPWd: 1.3 cm Ao root area: 9.4 cm2 LAV(MOD-bp) Indexed: 17.2 ml /m2 RVDd: 3.1 cm FS: 30.9 % LA dimension: 3.6 cm LAV(MOD-sp2): 41.2 ml LAV(MOD-sp4): 30.9 ml LA A4 area: 13.7 cm2 RA A4 area: 12.2 cm2 Doppl er Measurements AND Calculations MV E max lamont: Lat Peak E' Lamont: Med Peak E' Lamont: Ao V2 max: 82.6 cm/sec 4.9 cm/sec 5.8 cm/sec 122.9 cm/sec MV A max lamont: Ao max P.0 mmHg 99.3 cm/sec MV E/A: 0.8 3 LV V1 max: 100.4 cm/sec PA V2 max: 109.4 cm/sec E/E' lat: 16.7 E/E' med: 14.3 LV V1 max P.0 mmHg PA max P. 8 mmHg Interpretation Summary Left ventricular systolic function is normal. The estimated ejection fraction is 60 %. Mild concentric left ventricular hypertrophy. Mild (1+) mitral valve insufficie ncy. Trivial tricuspid valve insufficiency. Mild focal aortic valve calcification. Trivial pulmonic valve insufficiency. Ordering Physician: Ranjith Dueñas Referring Physician: Catherine Madrigal M.D. Performed By: Gina Davalos RVT Electronically signed by: Ranjith Dueñas MD on 04/2016 11:27 AM 10/04/15 1127 Date Ranjith Dueñas MD CC: Catherine Madrigal DO; Ranjith Dueñas MD Date Dictated: 10/04/15 0956 Date Transcrib ed: 10/04/151126 Cook Syrup Maker: Signed 24-Jun-2015 CR - Individual Treatment Plan Result: Comments: See Note; NOTES: [facility] Cardiac Rehab [address] [place] [address] CR - Individual Treatment Plan MR#: [id number] Acct: [id number] Name: RICKI BHARDWAJ Rep #: [id number] : 1945 70 From: Froilan Chan PCP: Catherine Madrigal DO DOS: 06/24/15 Exercise - 60-Day Assessment - Visit Date of Eval: 06/24/15 - Stages of Change Stages of Michelle nge:: Action - Exercise Prescription Mode:: Treadmill, Rower, Airdyne, NuStep Frequency (x/week): 3 Duration (Minutes):: 30-35 METs: 8.5 Target Heart Rate:: 132-141 - Hypertension Resting Bloo d Pressure:: 100/70 Peak Exercise Blood Pressure:: 170/90 Medication Changes:: No - Intervention Home Exercise/Activity Goal:: Sitting Time <3 hrs/day - Education Attended class for:: Wa rm-up, RPE APOLINAR Scale, S/S, Safe Exercise, Self-Monitoring - Exercise Program Goals Exercise Program Goals: Aerobic Activity >30 min, B/P <140/90 Nutrition - 30-Day Assessment - P rogram Goals Nutrition Program Goals: LDL <70. Total Cholesterol <200. HDL >45. Triglycerides <150. HgbA1C <7%. BMI <25 - Diabetes Diabetes:: No Nutrition - 60-Day Assessment - Program Goals Nutrition Program Goals: LDL <70. Total Choles terol <200. HDL >45. Triglycerides <150. HgbA1C <7%. BMI <25 - Visit Date of Assessment:: 06/24/15 - Stages of Change Stages of Change:: Action - Lipids Has the patient seen the dietitian?: No - Diabetes Diabetes:: No - Weight Management Weight:: 88.088 kg - Intervention Referral to dietitian:: No Referral to Diabetic Clinic:: No Will attend diet classes:: Yes - Education Attended class for:: Healthy eating Nutrition - Final Assessment - Program Goals Nutrition Program Goals: LDL <70. Total Cholesterol <200. HDL &am p;#62;45. Triglycerides <150. HgbA1C <7%. BMI <25 - Diabetes Diabetes:: No Tobacco - Initial Assessment - Program Goals Tobacco Program Goals: Complete smoking cessation . Attend education classes. Improve Knowledge Test score - Tobacco Use Tobacco Use: Non-smoker Tobacco - 30-Day Assessment - Program Goals Tobacco Program Goals: Complete smoking cessation. Att end education classes. Improve Knowledge Test score - Tobacco Use Tobacco Use: Non-smoker Tobacco - 60-Day Assessment - Program Goals Tobacco Program Goals: Complete smoking cessation. Attend e ducation classes. Improve Knowledge Test score - Tobacco Use Tobacco Use: Non-smoker - Intervention Individual Education/Counseling:: No Education Schedule Given:: Yes - Education Attended cl ass for:: Coronary artery disease, Risk factors, Sexuality, Medical compliance, Cardiac A AND P, Angina signs AND symptoms Tobacco - Final Assessment - Program Goals Tobacco Program Goals: Complet e smoking cessation. Attend education classes. Improve Knowledge Test score - Tobacco Use Tobacco Use: Non-smoker Psychosocial - 60-Day Assess - Target Goals Target Goals: Assess presence or ab sence of depression. Using a valid screening tool, maximizes coping skills. Positive support system - Stages of Change Stages of Change:: Action - Psychosocial Test Tool Used:: HANDS Depression Q uestionnaire Self-reported stress:: none Tests Completed: Mood Scale Test Total Mood Screening Score:: 1 Self-Efficacy Score:: 9 - Intervention PS - Interventions: Yes Attend Stress Management Cl asses, Yes Uses Stress Management Skills, No Referral to Mental Health, No Referral to [facility] Case Management, No Referral to Physician - Education Attended classes for:: Coping techniques, Signs AND sy mptoms of depression, Stress management, Relaxation techniques - Patient/Program Goal Preventative Medication(s):: Aspirin, ROSANNA inhibitor, Clopidogrel, Beta mackenzie, Statin/lipid - Assistive Devic es Assistive Devices:: None Fall Risk Assessed:: Yes 06/24/15 1421 <Electronically signed by Froilan Chan > Date Froilan Chan Out come assessment reviewed. Exercise plan approved as documented. Treatment plan and goals support patient needs/abilities. Continue with current plan. I certify the patient demonstrates improvement and remains willing and capable of participation. the patient continues to benefit from cardiac rehab services/training. The patient may continue at current intensity, endurance and modality and prog ress per protocol. 06/24/15 5451 <Electronically signed by Ranjith Dueñas MD> Cosigner Signature: Date Ranjith Dueñas MD CC: Signed 25-May-2015 CR - Individual Treatment Plan Result: Comments: See Note; NOTES: [facility] Cardiac Rehab [address] [place] [address] CR - Individual Treatment Plan MR#: [id number] Acct: [id number] Name: RICKI BHARDWAJ Rep #: [id number] : 1945 70 From: Froilan Chan PCP: Catherine Madrigal DO DOS: 05/23/15 Exercise - 30-day Assessment - Visit Date of Eval: 05/23/15 - Stages of Change Stages of Change:: Action - Exercise Prescription Mode:: Treadmill, Rower, Airdyne, NuStep Frequency (x/week): 3 Duration (Minutes):: 30-35 METs - Progression: 0.5-1 MET as tolerated: 6 Target Heart Rate:: 132-141 - Hypertension Resting Blood Pressure:: 120/80 Peak Exercise Blood Pressure:: 180/88 Medication Changes:: No - Intervention Home Exercise/Activity Goal:: Sitting Time <3 hrs/day - Edu cation Attended class for:: Warm-up, RPE APOLINAR Scale, S/S, Safe Exercise, Self- Monitoring - Exercise Program Goals Exercise Program Goals: Aerobic Activity >30 min, B/P <140/90 Nutr ition - 30-Day Assessment - Program Goals Nutrition Program Goals: LDL <70. Total Cholesterol <200. HDL >45. Triglycerides <150. HgbA1C <7%. BMI <25 - Visit Date of Assessment:: 05/23/15 - Stages of Change Stages of Change:: Action - Lipids Has the patient seen the dietitian?: No - Diabetes Diabetes:: No - Weight Management Weight:: 19 6 kg - Intervention Referral to dietitian:: No Will attend diet classes:: Yes - Education Attended class for:: Healthy eating Nutrition - 60-Day Assessment - Program Goals Nutrition Program Goals: LDL <70. Total Cholesterol <200. HDL >45. Triglycerides <150. HgbA1C <7%. BMI <25 - Diabetes Diabetes:: No Nutrition - Final Assessment - Program Goals Nutrition Program Goals: LDL <70. Total Cholesterol <200. HDL > 45. Triglycerides <150. HgbA1C <7%. BMI <25 - Diabetes Diabetes:: No Tobacco - 30-Day Assessment - Program Goals Tobacco Program Goals: Complete smoking cessation. Atten d education classes. Improve Knowledge Test score - Stage of Change Stages of Change:: Action - Learning Barriers Learning Barriers: Participates in education - Family Support Do you have fami ly support?: Yes - Tobacco Use Tobacco Use: Non-smoker Do you use smokeless tobacco?: No - Intervention Education Schedule Given:: Yes - Education Attended class for:: Coronary artery disease, Risk factors, Sexuality, Medical compliance, Cardiac A AND P, Angina signs AND symptoms Psychosocial - 30-Day Assess - Target Goals Target Goals: Assess presence or absence of depression. Using a valid screening tool, maximizes coping skills. Positive support system - Stages of Change Stages of Change:: Action - Psychosocial Test Tool Used:: HANDS Depression Questionnaire Self-reported stress:: none Total Mood Screening Score:: 0 Self-Efficacy Score:: 10 - Intervention PS - Interventions: Yes Attend Stress Management Classes, Yes Uses Stress Management Skills, No Referral to [facility], No Referral to [facility] Case Management, No Referral to Physician - Education Attended classes for:: Coping techniques, Signs AND symptoms of depression, Stress management, Relaxation techniqu es - Patient/Program Goal Preventative Medication(s):: Aspirin, Clopidogrel - Assistive Devices Assistive Devices:: None Fall Risk Assessed:: Yes 05/24/15 1140 <Electronically signed by Froilan Chan > Date Froilan Chan Outcome assessment reviewed. Exercise plan approved as documented. Treatment plan and goals support patie nt needs/abilities. Continue with current plan. I certify the patient demonstrates improvement and remains willing and capable of participation. the patient continues to benefit from cardiac rehab services/training. The patient may continue at current intensity, endurance and modality and progress per protocol. 05/25/15 0815 <Electronically signed by Pacheco James MD> Cosigner Signature: Date Pacheco James MD CC: Signed 15-Apr-2015 CR - Individual Treatment Plan Result: Comments: See Note; NOTES: [facility] Cardiac Rehab [address] [facility] [place] [address] CR - Individual Treatment Plan MR#: [id number] Acct: [id number] Name: RICKI BHARDWAJ #: [id number] : 1945 69 From: Kamron Wilks PCP: Catherine Madrigal DO DOS: 04/14/15 Exercise - Initial Assessment - Visit Date of Eval: 04/14/15 - Stages of Change Stages of Change :: Preparation, Action - Stress Test Date: 04/06/15 HR (bpm):: 141 EKG: NSR MET LEVEL:: 10 Blood Pressure: 176/84 - Exercise Prescription Mode:: Treadmill, Biodyne, Rower, Airdyne, NuStep Ang cris with exercise?: No Target Heart Rate:: 105-120 - Hypertension Do any of the following apply?: Yes, Medication, Diet Resting Blood Pressure:: 130/80 Nutrition - Initial Assessment - Program Goals Nutrition Program Goals: LDL <70. Total Cholesterol <200. HDL >45. Triglycerides <150. HgbA1C <7%. BMI <25 - Visit Date of Assessment:: 5 - Stages of Change Stages of Change:: Preparation, Action - Lipids Total Cholesterol (mg/dL) Goal = less than 200 mg/dL: 147 HDL Cholesterol (mg/dL) Goal = less than 45 mg/dL: 42 LDL Cholester ol (mg/dL) Goal = less than 70 mg/dL: 92 Lipid Medication: ATORVASTATIN - Diabetes Diabetes:: No - Weight Management Height: 1.8 m Weight:: 88.451 kg Weight Goal (kg):: 78.018 kg Goal % Body F at:: 27 - Intervention Referral to dietitian:: No Referral to Diabetic Clinic:: No Will attend diet classes:: Yes Nutrition - 30-Day Assessment - Program Goals Nutrition Program Goals: LDL &am p;#60;70. Total Cholesterol <200. HDL >45. Triglycerides <150. HgbA1C <7%. BMI <25 - Weight Management Weight:: 88.451 kg Nutrition - 60-Day Assessment - Program Goals Nutrition Program Goals: LDL <70. Total Cholesterol <200. HDL &#62 ;45. Triglycerides <150. HgbA1C <7%. BMI <25 - Weight Management Weight:: 88.451 kg Nutrition - Final Assessment - Program Goals Nutrition Program Goals: LDL <70. Total Cholesterol <200. HDL >45. Triglycerides <150. HgbA1C <7%. B ID <25 - Lipids Total Cholesterol (mg/dL) Goal = less than 200 mg/dL: 147 HDL Cholesterol (mg/dL) Goal = less than 45 mg/dL: 42 LDL Cholesterol (mg/dL) Goal = less than 70 mg/dL: 92 - Antonio ght Management Height: 1.8 m Weight:: 88.451 kg Tobacco - Initial Assessment - Program Goals Tobacco Program Goals: Complete smoking cessation. Attend education classes. Improve Knowledge Test s core - Stage of Change Stages of Change:: Preparation, Action - Learning Barriers Learning Barriers: Vision - wears glasses, Ready to Learn - Family Support Do you have family support?: Yes - Tobacco Use Tobacco Use: Cigarettes How long ago did you quit using tobacco products?: Less than 6 months ago How many cigarettes do you smoke per day?: 0 - was at 1ppd How many years have you smok ed?: 4 - quit 14 years, now smoked for 4 years Do you use smokeless tobacco?: No - Intervention Smoking Cessation Referral:: Yes Individual Education/Counseling:: Yes Education Schedule Given:: Chris bragg Psychosocial - Initial Assess - Target Goals Target Goals: Assess presence or absence of depression. Using a valid screening tool, maximizes coping skills. Positive support system - Stages of Change Stages of Change:: Preparation, Action - Psychosocial Test Tool Used:: HANDS Depression Questionnaire Self-reported stress:: no Tests Completed: Mood Scale Test Total Mood Screening Score: : 1 - normal score Self-Efficacy Score:: 10 - Intervention PS - Interventions: Yes Attend Stress Management Classes, Yes Uses Stress Management Skills, No Referral to Mental Health, No Referral to [facility] Case Management, No Referral to Physician - Patient/Program Goal Preventative Medication(s):: Aspirin, ROSANNA inhibitor, Beta mackenzie - on Brilinta, Statin/lipid - Assistive Devices Assistive Ariane nicole:: None Fall Risk Assessed:: Yes Psychosocial - 30-Day Assess - Target Goals Target Goals: Assess presence or absence of depression. Using a valid screening tool, maximizes coping skills. Posi tive support system - Psychosocial Test Tool Used:: HANDS Depression Questionnaire Self-Efficacy Score:: 10 Psychosocial - 60-Day Assess - Target Goals Target Goals: Assess presence or absence of depression. Using a valid screening tool, maximizes coping skills. Positive support system - Psychosocial Test Tool Used:: HANDS Depression Questionnaire Self-Efficacy Score:: 10 Psychosocial - Final Assessmen - Target Goals Target Goals: Assess presence or absence of depression. Using a valid screening tool, maximizes coping skills. Positive support system - Psychosocial Test Tool Us ed:: HANDS Depression Questionnaire Self-Efficacy Score:: 10 04/14/15 1310 <Electronically signed by Kamron Wilks > Date Kamron Molina ins Outcome assessment reviewed. Exercise plan approved as documented. Treatment plan and goals support patient needs/abilities. Continue with current plan. I certify the patient demonstrates im provement and remains willing and capable of participation. the patient continues to benefit from cardiac rehab services/training. The patient may continue at current intensity, endurance and modality and progress per protocol. 04/15/15 0843 <Electronically signed by Ranjith Dueñas MD> Cosigner Signature: Date Ranjith Dueñas MD CC: Signed 06-Apr-2015 Stress Report Result: Comments: See Note; NOTES: [facility] Cardiovascular Services [address] [place] [address] STRESS TEST REPORT 04/05/15 1305 MR#: [id number] Acct: [id number] Name: RICKI ROY Rep #: [id number] : 1945 69 From: Ranjith Dueñas MD Primary Care: Catherine Madrigal DO Status: REG CLI Ordering Dr: Ranjith Dueñas MD Service Date: 04/05/15 Order Date: 04/05/15 Se x: Brigitte Edwards DATE OF SERVICE: 04/05/2015 EXERCISE TOLERANCE TEST: The patient exercised on a Eder protocol for 9 minutes completing stage 3 achieving a peak heart rate of 141 beats per minute (92% predicted maximum heart rate) and a peak blood pressure of 176/84 mmHg and a peak MET capacity of 10 METS. The baseline ECG demonstrated normal sinus rhythm with inferolateral ID of indeterminate ag e. The peak exercise ECG demonstrated no obvious ECG changes. There were no cardiac dysrhythmias pretest, during exercise, or recovery. The functional capacity was considered good. The patient had no complaint of chest discomfort during exercise or recovery. The examination was discontinued secondary to dyspnea and leg discomfort. IMPRESSION: 1. Technically adequate (percent predicted maxim um heart rate greater than 85%) exercise tolerance test. 2. Peak exercise ECG with no obvious ECG changes. Ranjith Dueñas MD T: MARCOS JOB: [id number] 04/06/15 0948 <Electronically maicol d by Ranjith Dueñas MD> Date Ranjith Dueñas MD CC: Catherine Madrigal DO; Ranjith Dueñas MD Date Dictated: 04/05/151304 Date Transcribed: 04/05/151304 Cook Syrup Maker: Signed 06-Apr-2015 Emergency Department Summary Result: Comments: See Note; NOTES: [facility] Medical Records Department [address] [place] [address] Emergency Department Summary MR#: [id number] Acct: [id number] Name: RICKI BHARDWAJ Rep #: [id number] : 1945 69 From: Hong Blair DO PCP: Catherine Madrigal DO Status: [facility] DATE OF SERVICE: 03/15/2015 The patient was seen and assessed by Dr. Jose Alejandro and was found to have an acute myocardial infarction. When the patient went to CT scanner to evaluate his head injury, he became more unresponsive and started to have desaturations. He was brought back to [facility] resuscitation bay while Dr. Alejandro was speaking with the transferring physician, the decision was made to intubate the patient using 20 of etomidate and rocuronium. The patient underwent RSI with a 7. 5 endotracheal tube and it was passed easily on the first attempt without difficulty, secured at 23 cm, good color change, equal breath sounds bilaterally. The patient was started on Versed for [facility]. Please see Dr. Alejandro's dictation for the rest of the ED course and his assessment. Hong Blair DO T: MARCOS JOB: [id number] 04/06/15 08 <Electronically signed by Hong Blair DO&am p;#62; Date Hong Blair Cosigner Signature (If Indicated): Date CC: Catherine Wick Date Dictated: 03/25/151558 Date Transcribed: 03/25/151558 Cook Syrup Maker: Signed 16-Mar-2015 Emergency Department Summary Result: Comments: See Note; NOTES: [facility] Medical Records Department [address] [place] [address] Emergency Department Summary MR#: [id number] Acct: [id number] Name: RICKI BHARDWAJ Rep #: [id number] : 1945 69 From: Jose Alejandro MD PCP: Catherine Madrigal DO Status: [facility] DATE OF SERVICE: 03/15/2015 METHOD OF ARRIVAL: By EMS. CHIEF COMPLAINT: Chest pain. PRIMARY CARE: Dr. Madrigal. BEAVERS HISTORY: A 69-year-old male has a history of heart disease. The patient comes in by squad with chest pain. The patient states it started about an hour ago. It has been continuous, simply describes the pain across his chest. He denies feeling short of breath, but has felt nauseous, no vomiting or diaphoresis. The patient apparently passed out at home causing a lace ration to his right mandaen with this as well. EMS EKG was transmitted and does show an acute inferior lateral ID. The STEMI team was activated prior to his arrival. PHYSICAL EXAMINATION: VITAL SIGN S: Noted. HEENT: Head exam reveals laceration on his right temporal area. His pupils are equal, round and reactive. TMs are pearly white. NECK: Supple. HEART: Regular. I do not appreciate any murmur , rub or gallop. LUNGS: Sound clear. ABDOMEN: Soft, nontender. NEUROLOGIC: He is alert and oriented. He did not know where he was when he was at [facility]. His GCS is 13. TESTS: A chest x-ray read by radiology as no acute pathology. CT of the brain was obtained due to his head injury prior to requiring anticoagulation, was no bleed. EKG again was from the field an acute ID. CBC: His white count is 15.1, hemoglobin 17 with 77 percent neutrophils, 14 percent lymphocytes. Chemistry panel remarkable for BUN is 19, creatinine is 1.6, troponin is negative. EMERGENCY DEPARTM ENT COURSE: The patient was initially again resuscitated. Due to his concern with hitting his head, wanted to make sure there is no bleed before anticoagulation medication was given. Therefore, the C T was obtained and was negative by my read and radiology. The patient was given heparin, aspirin, and Brilinta. I spoke with Dr. Camp from [facility]. Due to his abnormal GCS and acut ID, i t was elected to intubate the patient. Dr. Blair assisted with this while I spoke with cardiology and the family. Please see his dictation. After intubation, the patient did have a transient episode of loss of pulse. I do not believe CPR was done or any medication was required. Dr. Blair was in the room with the patient the whole time. The patient is currently hemodynamically stable. I do not be lieve air ambulance transport is indicated. The patient will be sent by local ground crew. Since the patient did have a cardiac arrest, the patient will not meet criteria for a door to balloon time o f 90 minutes. This will be excluded. The patient was transferred by local ground crew in critical condition. Family was counseled. CLINICAL IMPRESSION: 1. Acute myocardial infarction. 2. Respirator y failure. 3. Intubation by Emergency Department physician. 4. Cardiac arrest. DISPOSITION: Transfer in critical condition. Critical care time is 30 minutes. MD Jerry Carpenter C: Pippa Madrigal DO T: NTS JOB: [id number] 03/16/15 0159 <Electronically signed by Jose Alejandro MD> Date Jose Alejandro MD CC: Catherine Wick Date Dictated: 03/16/157 Date Transcribed: 03/16/157 Cook Syrup Maker: Signed 15-Mar-2015 Brain/Head without Contrast Result: Comments: See Note; NOTES: [facility] Imaging Services [address] [place] [address] CAT Scan Report MR#: [id number] Acct: [id number] Name: RICKI BHARDWAJ Rep #: [id number] : 1945 M 69 From: Jackson Daniel MD PCP: Catherine Madrigal DO Status: REG ER Study: Brain/Head without Contrast Date of Exam: 03/15/15 Exam# [id number] Ordering Dr: Jose Alejandro MD STUDY : CT BRAIN WITHOUT CONTRAST REASON FOR EXAM: Male, 69 years old. Unresponsive status post myocardial infarction RADIATION DOSAGE (If Supplied By Facility): CTDIvol = ( 58.38 ) mGy, DLP = ( 1065.46 ) mGycm TECHNIQUE: Transaxial CT imaging of the brain was performed without administration of intravenous contrast material. COMPARISON: None. FINDINGS: Nor mal soft tissue structures. Normal calvarium. 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 There is mild cavernous carotid calcification Normal size ventricles an d extra-axial spaces for the patient's age. Mild nonspecific periventricular white matter ischemic changes are seen.. Normal basal ganglia and thalami. Normal brainstem. Normal cerebellum. There is no intracranial hemorrhage. There are no findings of an acute ischemic infarction. Normal visualized paranasal sinuses. IMPRESSION: Periventricular white matte r ischemic changes No evidence for acute bleed. MRI is recommended for more definitive evaluation Electronically Signed: Jackson Daniel MD at 17:27 EDT , Service suppo rt [phone], CC: Catherine Madrigal DO; Jose Alejandro MD Cook Syrup Maker: Signed 15-Mar-2015 Chest 1 View (Portable) Result: Comments: See Note; NOTES: [facility] Imaging Services [address] [place] [address] Radiology Report MR#: [id number] Acct: [id number] Name: RICKI BHARDWAJ Rep #: [id number] : 1945 M 69 From: Jackson Daniel MD PCP: Catherine Madrigal DO Status: DEP ER Study: Chest 1 View (Portable) Date of Exam: 03/15/15 Exam# [id number] Ordering Dr: Jose Alejandro MD STUDY: X -RAY CHEST REASON FOR EXAM: Male, 69 years old. Chest pain status post endotracheal tube placement TECHNIQUE: AP portable COMPARISON: None. FINDINGS: Dimi nished inspiratory effort is seen. There is minimal atelectasis or scarring at the lung bases.. There is no demonstrated pleural abnormality. Heart is mildly enlarged. Normal mediastinum and shayan. No rmal visualized pulmonary arteries. Normal visualized aortic arch and descending thoracic aorta. Endotracheal tube placement approximately 3.5 cm proximal to the aguila The dorsal spine demonstrate spondylosis. Normal visualized ribs, clavicles, and shoulders. There is no demonstrated abnormality of the visualized soft tissue structures of the upper abdomen. _ IMPRESSION: No acute cardiopulmonary pathology status post intubation Electronically Signed: Jackson Daniel MD at 22:36 EDT , Service support [phone], Fax RAD/Chest 1 View (Portable) IMPRESSION: No acute cardiopulmonary pathology status post intubation Electronically Signed: Jackson Daniel MD at 22:36 EDT , Service support [phone], CC: Catherine Madrigal DO; Jose Alejandro MD Cook Syrup Maker: Signed 07-Dec-2014 Chest PA and Lateral Result: Comments: See Note; NOTES: [facility] Imaging Services [address] [address] Radiology Report MR#: [id number] Acct: [id number] Name: RICKI BHARDWAJ Rep #: [id number] : 1945 M 69 From: Chris Lo MD PCP: Catherine Madrigal DO Status: REG CLI Study: Chest PA and Lateral Date of Exam: 12/07/14 Exam# [id number] Ordering Dr: Suzanne Root STUDY: X-RAY [facility] [facility] REASON FOR EXAM: Male, 69 years old. Smoker. TECHNIQUE: Frontal and lateral views of the chest. COMPARISON: November 04, 2013 FINDINGS: There is stable hyp erexpansion with granulomatous calcification. There is no demonstrated pleural abnormality. Normal size heart. Normal mediastinum and shayan. Normal visualized pulmonary arteries. Normal visualized ao rtic arch and descending thoracic aorta. Normal visualized thoracic spine. Normal visualized ribs, clavicles, and shoulders. There is no demonstrated abnormality of the visualized soft tissue str uctures of the upper abdomen. IMPRESSION: Stable findings compatible with chronic obstructive pulmonary disease. No acute pathology. Electronically Signed: Oj Lo MD at 17:48 EDT , Service support [phone], RAD/Chest PA and Lateral IMPRESSION: Stable findings compatible with ch ronic obstructive pulmonary disease. No acute pathology. Electronically Signed: Chris Lo MD at 17:48 EDT , Service support [phone], C C: Suzanne Root; Catherine Madrigal DO Cook Syrup Maker: Signed 04-Nov-2013 Chest PA and Lateral Result: Comments: See Note; NOTES: [facility] Imaging Services [address] [place] [address] Radiology Report MR#: [id number] Acct: [id number] Name: RICKI BHARDWAJ Rep #: [id number] : 1945 M 68 From: Angel Davis DO PCP: Catherine Mdarigal DO Status: REG CLI Study: Chest PA and Lateral Date of Exam: 11/04/13 Exam# [id number] Ordering Dr: Catherine Madrigal DO STUDY: X -RAY CHEST REASON FOR EXAM: Male, 68 years old. Cough for one week. Smoking history. TECHNIQUE: PA and lateral views of the chest. COMPARISON: 2012. ____ FINDINGS: The lungs are hyperexpanded but without acute infiltrate or mass. There is no demonstrated pleural abnormality. Normal size heart. Normal mediastinum and shayan. Normal visualized p ulmonary arteries. There is atherosclerotic calcification of the aortic arch with tortuosity. Normal visualized thoracic spine. There is degenerative osteoarthritis of the bilateral shoulders. The re is no demonstrated abnormality of the visualized soft tissue structures of the upper abdomen. IMPRESSION: No evidence of acute cardiopulmonary disease or jesús r change from 2012. Electronically Signed: Angel Davis D.O. 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 Comments: Quit smoking February 2015 following heart attack Status: Active Smoking Status Name Dates Details Former smoker Current every day smoker Vital Signs Date Test Result Details 28-Aug-20189:27 Pulse 73 /min Comments: Pattern: Regular Respiration Rate 18 /min Comments: Pattern: Unlabored O2 SAT 97 % Comments: Room air BP Systolic 148 mm[Hg] Comments: Patient Position: Sitting; Cuff Location: Left Arm; Cuff Size: Large BP Diastolic 82 mm[Hg] Comments: Patient Position: Sitting; Cuff Location: Left Arm; Cuff Size: Large Weight 198.375 lb Height 71.5 in Body Mass Index Calculated 27.28 kg/m2 Body Surface Area Calculated 2.11 m2 :10 Temperature 97.6 f Comments: Method: Temporal Pulse 80 /min Comments: Pattern: Regular Respiration Rate 16 /min Comments: Pattern: Unlabored O2 SAT 95 % Comments: Room air BP Systolic 120 mm[Hg] Comments: Patient Position: Sitting; Cuff Location: Left Arm; Cuff Size: Standard BP Diastolic 80 mm[Hg] Comments: Patient Position: Sitting; Cuff Location: Left Arm; Cuff Size: Standard Weight 201.25 lb Height 71.5 in Body Mass Index Calculated 27.68 kg/m2 Body Surface Area Calculated 2.13 m2 :33 Temperature 98.7 f Comments: Method: Temporal Pulse 18 /min Comments: Pattern: Regular Respiration Rate 18 /min Comments: Pattern: Unlabored O2 SAT 93 % Comments: Room air BP Systolic 128 mm[Hg] Comments: Patient Position: Sitting; Cuff Location: Left Arm; Cuff Size: Large BP Diastolic 82 mm[Hg] Comments: Patient Position: Sitting; Cuff Location: Left Arm; Cuff Size: Large Weight 202.25 lb Height 71.5 in Body Mass Index Calculated 27.81 kg/m2 Body Surface Area Calculated 2.13 m2 :14 Pulse 70 /min Comments: Pattern: Regular Respiration Rate 18 /min Comments: Pattern: Unlabored O2 SAT 97 % Comments: Room air BP Systolic 128 mm[Hg] Comments: Patient Position: Sitting; Cuff Location: Left Arm; Cuff Size: Large BP Diastolic 78 mm[Hg] Comments: Patient Position: Sitting; Cuff Location: Left Arm; Cuff Size: Large Weight 200.375 lb Height 71.5 in Body Mass Index Calculated 27.56 kg/m2 Body Surface Area Calculated 2.12 m2 :13 Pulse 74 /min Comments: Pattern: Regular Respiration Rate 18 /min Comments: Pattern: Unlabored O2 SAT 96 % Comments: Room air BP Systolic 140 mm[Hg] Comments: Patient Position: Sitting; Cuff Location: Left Arm; Cuff Size: Large BP Diastolic 86 mm[Hg] Comments: Patient Position: Sitting; Cuff Location: Left Arm; Cuff Size: Large Weight 201.375 lb Height 71.5 in Body Mass Index Calculated 27.69 kg/m2 Body Surface Area Calculated 2.13 m2 :47 Comments: [facility] Pulse 78 /min Comments: Pattern: Regular Respiration Rate 18 /min Comments: Pattern: Unlabored O2 SAT 94 % Comments: Room air BP Systolic 124 mm[Hg] Comments: Patient Position: Sitting; Cuff Location: Left Arm; Cuff Size: Large BP Diastolic 82 mm[Hg] Comments: Patient Position: Sitting; Cuff Location: Left Arm; Cuff Size: Large Weight 201.375 lb Height 71.5 in Body Mass Index Calculated 27.69 kg/m2 Body Surface Area Calculated 2.13 m2 :45 Temperature 96.7 f Pulse 92 /min Comments: Pattern: Regular Respiration Rate 17 /min Comments: Pattern: Unlabored O2 SAT 94 % Comments: Room air BP Systolic 140 mm[Hg] Comments: Patient Position: Sitting; Cuff Location: Left Arm; Cuff Size: Standard BP Diastolic 80 mm[Hg] Comments: Patient Position: Sitting; Cuff Location: Left Arm; Cuff Size: Standard Weight 204 lb Height 71.5 in Body Mass Index Calculated 28.06 kg/m2 Body Surface Area Calculated 2.14 m2 :37 Temperature 98.3 f Comments: Method: Temporal Pulse 72 /min Comments: Pattern: Regular Respiration Rate 16 /min Comments: Pattern: Unlabored O2 SAT 96 % Comments: Room air BP Systolic 130 mm[Hg] Comments: Patient Position: Sitting; Cuff Location: Left Arm; Cuff Size: Standard BP Diastolic 78 mm[Hg] Comments: Patient Position: Sitting; Cuff Location: Left Arm; Cuff Size: Standard Weight 204 lb Height 71.5 in Body Mass Index Calculated 28.06 kg/m2 Body Surface Area Calculated 2.14 m2 :47 Temperature 98 f Comments: Method: Temporal Pulse 98 /min Comments: Pattern: Regular Respiration Rate 18 /min Comments: Pattern: Unlabored O2 SAT 94 % Comments: Room air BP Systolic 138 mm[Hg] Comments: Patient Position: Sitting; Cuff Location: Left Arm; Cuff Size: Large BP Diastolic 90 mm[Hg] Comments: Patient Position: Sitting; Cuff Location: Left Arm; Cuff Size: Large Weight 204 lb Height 71.5 in Body Mass Index Calculated 28.06 kg/m2 Body Surface Area Calculated 2.14 m2 :09 Pulse 86 /min Comments: Pattern: Regular Respiration Rate 18 /min Comments: Pattern: Unlabored O2 SAT 96 % Comments: Room air BP Systolic 138 mm[Hg] Comments: Patient Position: Sitting; Cuff Location: Right Arm; Cuff Size: Large BP Diastolic 82 mm[Hg] Comments: Patient Position: Sitting; Cuff Location: Right Arm; Cuff Size: Large Weight 204 lb Height 71.5 in Body Mass Index Calculated 28.06 kg/m2 Body Surface Area Calculated 2.14 m2 :31 Temperature 97.9 f Pulse 73 /min Comments: Pattern: Regular Respiration Rate 16 /min Comments: Pattern: Unlabored O2 SAT 95 % Comments: Room air BP Systolic 124 mm[Hg] Comments: Patient Position: Sitting; Cuff Location: Left Arm; Cuff Size: Standard BP Diastolic 76 mm[Hg] Comments: Patient Position: Sitting; Cuff Location: Left Arm; Cuff Size: Standard Weight 203 lb Height 71.5 in Body Mass Index Calculated 27.92 kg/m2 Body Surface Area Calculated 2.13 m2 :51 Temperature 97.9 f Pulse 80 /min Comments: Pattern: Regular Respiration Rate 16 /min Comments: Pattern: Unlabored O2 SAT 96 % Comments: Room air BP Systolic 126 mm[Hg] Comments: Patient Position: Sitting; Cuff Location: Left Arm; Cuff Size: Standard BP Diastolic 84 mm[Hg] Comments: Patient Position: Sitting; Cuff Location: Left Arm; Cuff Size: Standard Weight 202.375 lb Height 71.5 in Body Mass Index Calculated 27.83 kg/m2 Body Surface Area Calculated 2.13 m2 :41 Pulse 79 /min Comments: Pattern: Regular Respiration Rate 18 /min Comments: Pattern: Unlabored O2 SAT 97 % Comments: Room air BP Systolic 128 mm[Hg] Comments: Patient Position: Sitting; Cuff Location: Left Arm; Cuff Size: Large BP Diastolic 84 mm[Hg] Comments: Patient Position: Sitting; Cuff Location: Left Arm; Cuff Size: Large Weight 205.375 lb Height 71.5 in Body Mass Index Calculated 28.24 kg/m2 Body Surface Area Calculated 2.14 m2 :29 Pulse 76 /min Comments: Pattern: Regular Respiration Rate 18 /min Comments: Pattern: Unlabored O2 SAT 96 % Comments: Room air BP Systolic 148 mm[Hg] Comments: Patient Position: Sitting; Cuff Location: Left Arm; Cuff Size: Large BP Diastolic 84 mm[Hg] Comments: Patient Position: Sitting; Cuff Location: Left Arm; Cuff Size: Large Weight 208.5 lb Height 71.5 in Body Mass Index Calculated 28.67 kg/m2 Body Surface Area Calculated 2.16 m2 :04 Temperature 96.2 f Comments: Method: Oral Pulse 84 /min Comments: Pattern: Regular Respiration Rate 16 /min Comments: Pattern: Unlabored O2 SAT 98 % Comments: Room air BP Systolic 115 mm[Hg] Comments: Patient Position: Sitting; Cuff Location: Left Arm; Cuff Size: Standard BP Diastolic 78 mm[Hg] Comments: Patient Position: Sitting; Cuff Location: Left Arm; Cuff Size: Standard Weight 202.375 lb Height 71.5 in Body Mass Index Calculated 27.83 kg/m2 Body Surface Area Calculated 2.13 m2 :23 Comments: pt said wasnt done, but it was, so repeat BP Systolic 118 mm[Hg] Comments: Patient Position: Sitting; Cuff Location: Left Arm; Cuff Size: Standard BP Diastolic 68 mm[Hg] Comments: Patient Position: Sitting; Cuff Location: Left Arm; Cuff Size: Standard :14 Pulse 76 /min Comments: Pattern: Regular Respiration Rate 18 /min Comments: Pattern: Unlabored O2 SAT 98 % Comments: Room air BP Systolic 128 mm[Hg] Comments: Patient Position: Sitting; Cuff Location: Left Arm; Cuff Size: Large BP Diastolic 70 mm[Hg] Comments: Patient Position: Sitting; Cuff Location: Left Arm; Cuff Size: Large Weight 196.375 lb Height 71.5 in Body Mass Index Calculated 27.01 kg/m2 Body Surface Area Calculated 2.1 m2 :50 Temperature 97.9 f Comments: Method: Temporal Pulse 72 /min Comments: Pattern: Regular Respiration Rate 18 /min Comments: Pattern: Unlabored O2 SAT 98 % Comments: Room air BP Systolic 104 mm[Hg] Comments: Patient Position: Sitting; Cuff Location: Left Arm; Cuff Size: Standard BP Diastolic 64 mm[Hg] Comments: Patient Position: Sitting; Cuff Location: Left Arm; Cuff Size: Standard Weight 194 lb Height 71.5 in Body Mass Index Calculated 26.68 kg/m2 Body Surface Area Calculated 2.09 m2 :05 Temperature 97.2 f Pulse 80 /min Comments: Pattern: Regular Respiration Rate 16 /min BP Systolic 112 mm[Hg] Comments: Patient Position: Supine; Cuff Location: Right Arm; Cuff Size: Standard BP Diastolic 70 mm[Hg] Comments: Patient Position: Supine; Cuff Location: Right Arm; Cuff Size: Standard Weight 199.5 lb Height 71.5 in Body Mass Index Calculated 27.44 kg/m2 Body Surface Area Calculated 2.12 m2 :06 Pulse 69 /min Comments: Pattern: Regular Respiration Rate 20 /min Comments: Pattern: Unlabored O2 SAT 98 % Comments: Room air BP Systolic 162 mm[Hg] Comments: Patient Position: Sitting; Cuff Location: Left Arm; Cuff Size: Large BP Diastolic 100 mm[Hg] Comments: Patient Position: Sitting; Cuff Location: Left Arm; Cuff Size: Large Weight 205 lb Height 71 in Body Mass Index Calculated 28.59 kg/m2 Body Surface Area Calculated 2.13 m2 :28 Temperature 97.7 f Comments: Method: Oral Pulse 77 /min Comments: Pattern: Regular Respiration Rate 18 /min Comments: Pattern: Unlabored O2 SAT 95 % Comments: Room air BP Systolic 128 mm[Hg] Comments: Patient Position: Sitting; Cuff Location: Left Arm; Cuff Size: Large BP Diastolic 98 mm[Hg] Comments: Patient Position: Sitting; Cuff Location: Left Arm; Cuff Size: Large Weight 203.3125 lb Height 71 in Body Mass Index Calculated 28.36 kg/m2 Body Surface Area Calculated 2.12 m2 :52 Temperature 98.8 f Comments: Method: Oral Pulse 84 /min Comments: Pattern: Regular Respiration Rate 18 /min O2 SAT 98 % Comments: Room air BP Systolic 120 mm[Hg] Comments: Patient Position: Sitting; Cuff Location: Left Arm; Cuff Size: Standard BP Diastolic 70 mm[Hg] Comments: Patient Position: Sitting; Cuff Location: Left Arm; Cuff Size: Standard Weight 204.0625 lb Height 71 in Body Mass Index Calculated 28.46 kg/m2 Body Surface Area Calculated 2.13 m2 :20 Pulse 80 /min Comments: Pattern: Regular Respiration Rate 20 /min Comments: Pattern: Unlabored BP Systolic 118 mm[Hg] Comments: Patient Position: Sitting; Cuff Location: Left Arm; Cuff Size: Large BP Diastolic 68 mm[Hg] Comments: Patient Position: Sitting; Cuff Location: Left Arm; Cuff Size: Large Weight 204.0625 lb Height 71 in Body Mass Index Calculated 28.46 kg/m2 Body Surface Area Calculated 2.13 m2 52-Ioi-[id number]:05 Temperature 98.2 f Comments: Method: Oral Pulse 76 /min Comments: Pattern: Regular Respiration Rate 17 /min O2 SAT 96 % Comments: Room air BP Systolic 144 mm[Hg] Comments: Patient Position: Sitting; Cuff Location: Left Arm; Cuff Size: Standard BP Diastolic 84 mm[Hg] Comments: Patient Position: Sitting; Cuff Location: Left Arm; Cuff Size: Standard Weight 202.0625 lb Height 71 in Body Mass Index Calculated 28.18 kg/m2 Body Surface Area Calculated 2.12 m2 :08 Temperature 97.9 f Comments: Method: Oral Pulse 60 /min Comments: Pattern: Regular Respiration Rate 18 /min Comments: Pattern: Unlabored BP Systolic 122 mm[Hg] Comments: Patient Position: Sitting; Cuff Location: Left Arm; Cuff Size: Standard BP Diastolic 80 mm[Hg] Comments: Patient Position: Sitting; Cuff Location: Left Arm; Cuff Size: Standard Weight 202.0625 lb Height 71 in Body Mass Index Calculated 28.18 kg/m2 Body Surface Area Calculated 2.12 m2 :28 Comments: Did not take bp meds this am. BP Systolic 138 mm[Hg] Comments: Patient Position: Sitting; Cuff Location: Left Arm; Cuff Size: Standard BP Diastolic 88 mm[Hg] Comments: Patient Position: Sitting; Cuff Location: Left Arm; Cuff Size: Standard :17 Comments: hearing wnlvision with correction ou=20/30 os=20/30 od= 20/50 Temperature 96.7 f Comments: Method: Oral Pulse 76 /min Comments: Pattern: Regular Respiration Rate 20 /min Comments: Pattern: Unlabored BP Systolic 178 mm[Hg] Comments: Patient Position: Sitting; Cuff Location: Left Arm; Cuff Size: Large BP Diastolic 102 mm[Hg] Comments: Patient Position: Sitting; Cuff Location: Left Arm; Cuff Size: Large Weight 202.0625 lb Height 71 in Body Mass Index Calculated 28.18 kg/m2 Body Surface Area Calculated 2.12 m2 :21 Temperature 97.8 f Comments: Method: Oral Pulse 68 /min Comments: Pattern: Regular Respiration Rate 18 /min Comments: Pattern: Unlabored BP Systolic 142 mm[Hg] Comments: Patient Position: Sitting; Cuff Location: Left Arm; Cuff Size: Large BP Diastolic 100 mm[Hg] Comments: Patient Position: Sitting; Cuff Location: Left Arm; Cuff Size: Large Weight 208.0625 lb Height 71 in Body Mass Index Calculated 29.02 kg/m2 Body Surface Area Calculated 2.14 m2 :50 Pulse 68 /min Comments: Pattern: Regular Respiration Rate 14 /min Comments: Pattern: Unlabored Weight 209.0625 lb Height 71 in Body Mass Index Calculated 29.16 kg/m2 Body Surface Area Calculated 2.15 m2 :52 Pulse 76 /min Comments: Pattern: Regular Respiration Rate 20 /min Comments: Pattern: Unlabored BP Systolic 138 mm[Hg] Comments: Patient Position: Sitting; Cuff Location: Left Arm; Cuff Size: Large BP Diastolic 82 mm[Hg] Comments: Patient Position: Sitting; Cuff Location: Left Arm; Cuff Size: Large Weight 209.0625 lb Height 71 in Body Mass Index Calculated 29.16 kg/m2 Body Surface Area Calculated 2.15 m2 :08 Pulse 72 /min Comments: Pattern: Regular Respiration Rate 20 /min Comments: Pattern: Unlabored BP Systolic 124 mm[Hg] Comments: Patient Position: Sitting; Cuff Location: Left Arm; Cuff Size: Large BP Diastolic 78 mm[Hg] Comments: Patient Position: Sitting; Cuff Location: Left Arm; Cuff Size: Large Weight 208.5 lb Height 71 in Body Mass Index Calculated 29.08 kg/m2 Body Surface Area Calculated 2.15 m2 :24 Pulse 68 /min Comments: Pattern: Regular Respiration Rate 20 /min Comments: Pattern: Unlabored BP Systolic 138 mm[Hg] Comments: Patient Position: Sitting; Cuff Location: Left Arm; Cuff Size: Large BP Diastolic 82 mm[Hg] Comments: Patient Position: Sitting; Cuff Location: Left Arm; Cuff Size: Large Weight 208.5 lb Height 71 in Body Mass Index Calculated 29.08 kg/m2 Body Surface Area Calculated 2.15 m2 :35 Temperature 96.2 f Comments: Method: Undefined Pulse 62 /min Comments: Pattern: Regular Respiration Rate 18 /min Comments: Pattern: Undefined BP Systolic 122 mm[Hg] Comments: Patient Position: Sitting; Cuff Location: Left Arm; Cuff Size: Large BP Diastolic 74 mm[Hg] Comments: Patient Position: Sitting; Cuff Location: Left Arm; Cuff Size: Large Weight 0 lb Height 0 in Head Circumference 0.00 cm :29 Temperature 97 f Comments: Method: Undefined Pulse 84 /min Comments: Pattern: Regular Respiration Rate 16 /min Comments: Pattern: Undefined BP Systolic 146 mm[Hg] Comments: Patient Position: Sitting; Cuff Location: Left Arm; Cuff Size: Standard BP Diastolic 100 mm[Hg] Comments: Patient Position: Sitting; Cuff Location: Left Arm; Cuff Size: Standard Weight 0 lb Height 0 in Head Circumference 0.00 cm :03 Pulse 60 /min Comments: Pattern: Regular Respiration Rate 16 /min Comments: Pattern: Unlabored BP Systolic 150 mm[Hg] Comments: Patient Position: Supine; Cuff Location: Left Arm; Cuff Size: Standard BP Diastolic 80 mm[Hg] Comments: Patient Position: Supine; Cuff Location: Left Arm; Cuff Size: Standard Weight 208.5 lb Height 71 in Body Mass Index Calculated 29.08 kg/m2 Body Surface Area Calculated 2.15 m2 Head Circumference 0.00 cm :29 Pulse 60 /min Comments: Pattern: Regular Respiration Rate 16 /min Comments: Pattern: Unlabored BP Systolic 130 mm[Hg] Comments: Patient Position: Supine; Cuff Location: Left Arm; Cuff Size: Standard BP Diastolic 72 mm[Hg] Comments: Patient Position: Supine; Cuff Location: Left Arm; Cuff Size: Standard Weight 201 lb Height 71 in Body Mass Index Calculated 28.03 kg/m2 Body Surface Area Calculated 2.11 m2 Head Circumference 0.00 cm :16 Temperature 98.9 f Comments: Method: Oral Pulse 70 /min Comments: Pattern: Regular Respiration Rate 18 /min Comments: Pattern: Unlabored BP Systolic 118 mm[Hg] Comments: Patient Position: Sitting; Cuff Location: Left Arm; Cuff Size: Large BP Diastolic 80 mm[Hg] Comments: Patient Position: Sitting; Cuff Location: Left Arm; Cuff Size: Large Weight 201 lb Height 0 in Head Circumference 0.00 cm :26 Temperature 98.4 f Comments: Method: Oral Pulse 92 /min Comments: Pattern: Regular Respiration Rate 18 /min Comments: Pattern: Unlabored BP Systolic 122 mm[Hg] Comments: Patient Position: Sitting; Cuff Location: Left Arm; Cuff Size: Standard BP Diastolic 80 mm[Hg] Comments: Patient Position: Sitting; Cuff Location: Left Arm; Cuff Size: Standard Weight 201.125 lb Height 71 in Body Mass Index Calculated 28.05 kg/m2 Body Surface Area Calculated 2.11 m2 Head Circumference 0.00 cm :16 Temperature 98.1 f Comments: Method: Oral Pulse 80 /min Comments: Pattern: Regular Respiration Rate 16 /min Comments: Pattern: Unlabored BP Systolic 132 mm[Hg] Comments: Patient Position: Supine; Cuff Location: Left Arm; Cuff Size: Standard BP Diastolic 72 mm[Hg] Comments: Patient Position: Supine; Cuff Location: Left Arm; Cuff Size: Standard Weight 201.125 lb Height 71 in Body Mass Index Calculated 28.05 kg/m2 Body Surface Area Calculated 2.11 m2 Head Circumference 0.00 cm :02 Temperature 98.7 f Comments: Method: Oral Pulse 94 /min Comments: Pattern: Regular Respiration Rate 18 /min Comments: Pattern: Unlabored O2 SAT 96 % Comments: Room air BP Systolic 118 mm[Hg] Comments: Patient Position: Sitting; Cuff Location: Left Arm; Cuff Size: Standard BP Diastolic 82 mm[Hg] Comments: Patient Position: Sitting; Cuff Location: Left Arm; Cuff Size: Standard Weight 201.125 lb Height 0 in Head Circumference 0.00 cm :08 Temperature 98.5 f Comments: Method: Oral Pulse 70 /min Comments: Pattern: Regular Respiration Rate 20 /min Comments: Pattern: Unlabored BP Systolic 120 mm[Hg] Comments: Patient Position: Sitting; Cuff Location: Left Arm; Cuff Size: Standard BP Diastolic 76 mm[Hg] Comments: Patient Position: Sitting; Cuff Location: Left Arm; Cuff Size: Standard Weight 0 lb Height 0 in Head Circumference 0.00 cm :57 Temperature 98.1 f Comments: Method: Undefined Pulse 72 /min Comments: Pattern: Regular Respiration Rate 16 /min Comments: Pattern: Undefined BP Systolic 124 mm[Hg] Comments: Patient Position: Undefined; Cuff Location: Undefined; Cuff Size: Undefined BP Diastolic 70 mm[Hg] Comments: Patient Position: Undefined; Cuff Location: Undefined; Cuff Size: Undefined Weight 197 lb Height 71.5 in Body Mass Index Calculated 27.09 kg/m2 Body Surface Area Calculated 2.11 m2 Head Circumference 0.00 cm Results Date Description Value Details :24 CREATININE FINGERSTICK Comments: [facility] [place]ndb[address] [address] EGFR WB > 60.0000 mL/min (Normal) CREATININE WB 1.0 mg/dL (Normal) Range: 0.70-1.30 69-Sfm-610417:37 Microscopic Examination Comments: PERFORMED BY: [facility] [id number] Bacteria None seen (Normal) Mucus Threads Present (Normal) Epithelial Cells (non renal) 0-10 {/hpf} (Normal) Range: 0 - 10 RBC 0-2 {/hpf} (Normal) Range: 0 - 2 WBC 0-5 {/hpf} (Normal) Range: 0 - 5 03-Bcp-706415:47 VITAMIN B-12 Comments: PATIENT WAS FASTINGPERFORMED BY: [employer] [id number] BY: [employer]70 [facility] [id number] (CYANOCOBALAMIN) (16472) Vitamin B12 579 pg/mL (Normal) Range: 232-1245 54-Smn-008413:47 TSH (87754) Comments: PATIENT WAS FASTINGPERFORMED BY: [facility] [address] [id number] BY: [employer]70 [facility] HospitalKIWATCHSam[facility] [id number] TSH 0.979 {uIU/mL} (Normal) Range: 0.450-4.500 19-Wai-262618:37 URINALYSIS, W/ MICRO (34540) Comments: PERFORMED BY: [employer] [facility] [id number] Microscopic Examination See below: (Normal) Comments: Microscopic was indicated and was performed. Microscopic Examination MICRON (Normal) Comments: Microscopic follows if indicated. Nitrite, Urine Negative (Normal) Urobilinogen,Semi-Qn 0.2 mg/dL (Normal) Range: 0.2-1.0 Bilirubin Negative (Normal) Occult Blood Negative (Normal) Ketones Negative (Normal) Glucose Negative (Normal) Protein Negative (Normal) WBC Esterase Negative (Normal) Appearance Clear (Normal) Urine-Color Yellow (Normal) pH 6.0 (Normal) Range: 5.0-7.5 Specific [place] 1.018 (Normal) Range: 1.005-1.030 90-Tug-172287:37 MICROALBUMIN: CREATININE RATIO Comments: PERFORMED BY: [facility] GlobalHackettstown Medical CenterWsdril6595 [facility] [id number] (13674) AND (18253) Alb/Creat Ratio 7.5 {mg/g_creat} (Normal) Range: 0.0-30.0 Albumin, Urine 8.7 ug/mL (Normal) Creatinine, Urine 116.0 mg/dL (Normal) 43-Fqd-944175:47 METABOLIC PANEL, Comments: PATIENT WAS FASTINGPERFORMED BY: [facility] [id number] BY: [facility] Resources GlobalHackettstown Medical CenterZpkoeh3187 [facility] [id number] COMPREHENSIVE (55860) ALT (SGPT) 12 [iU]/L (Normal) Range: 0-44 AST (SGOT) 17 [iU]/L (Normal) Range: 0-40 Alkaline Phosphatase 75 [iU]/L (Normal) Range: 39-117 Bilirubin, Total 0.5 mg/dL (Normal) Range: 0.0-1.2 A/G Ratio 2.0 (Normal) Range: 1.2-2.2 Globulin, Total 2.2 g/dL (Normal) Range: 1.5-4.5 Albumin 4.5 g/dL (Normal) Range: 3.5-4.8 Protein, Total 6.7 g/dL (Normal) Range: 6.0-8.5 Calcium 9.3 mg/dL (Normal) Range: 8.6-10.2 Carbon Dioxide, Total 25 mmol/L (Normal) Range: 20-29 Chloride 102 mmol/L (Normal) Range: 96-106 Potassium 5.1 mmol/L (Normal) Range: 3.5-5.2 Sodium 141 mmol/L (Normal) Range: 134-144 BUN/Creatinine Ratio 14 (Normal) Range: 10-24 eGFR If Africn Am 71 mL/min/1.73 (Normal) eGFR If NonAfricn Am 62 mL/min/1.73 (Normal) Creatinine 1.18 mg/dL (Normal) Range: 0.76-1.27 BUN 16 mg/dL (Normal) Range: 8-27 Glucose 78 mg/dL (Normal) Range: 65-99 45-Cci-857708:47 LIPOPROTEIN, BLD, BY NMR Comments: PATIENT WAS FASTINGPERFORMED BY: [facility] Gpjzkplsop0810 [facility] [id number] BY: [facility] Taxxqx9203 [facility] [id number] (15504) LP-IR Score 87 (Abnormal) Comments: INSULIN RESISTANCE MARKER <--Insulin Sensitive Insulin Resistant--> Percentile in Reference PopulationInsulin Resistance ScoreLP-IR Score Low 25th 50th 75th High <27 27 45 63 >63LP-IR Score is inaccurate if patient is non-fasting. .The LP-IR score is a laboratory developed [facility] that has beenassociated with insulin resistance and diabetes risk and should beused as one component of a physician's clinical assessment. TheLP-IR score listed above has not been cleared by the [place] Food andDrug Administration. LDL Size 19.8 nm (Normal) Comments: INTERPRETATIVE INFORMATION PARTICLE CONCENTRATION AND SIZE <--Lower CVD Risk Highe r CVD Risk--> LDL AND HDL PARTICLES Percentile in Reference Population HDL-P (total) High 75th 50th 25th Low >34.9 34.9 30.5 26.7 <26.7 . Small LDL-P Low 25th 50th 75th High <117 117 527 839 >839 . LDL Size <-Large (Pattern A)-> <-Small (Pattern B)-> 23.0 20.6 20.5 19.0 Small LDL-P and LDL Size are associated with CVD risk, but not afterLDL-P is taken into account. .These assays were developed and their performance characteristicsdetermined by [employer]. These assays have not been cleared by [place] Food and Drug Administration. The clinical utility of theselaboratory values have not been fully established. Small LDL-P 1324 nmol/L (Abnormal) HDL-P (Total) 26.3 umol/L (Abnormal) Cholesterol, Total 185 mg/dL (Normal) Range: 100-199 Triglycerides 199 mg/dL (Abnormal) Range: 0-149 HDL-C 34 mg/dL (Abnormal) LDL-C 111 mg/dL (Abnormal) Range: 0-99 Comments: . Optimal < 100 Above optimal 100 - 129 Borderline 1 30 - 159 High 160 - 189 Very high > 189 .LDL-C is inaccurate if patient is non-fasting. LDL-P 1793 nmol/L (Abnormal) Comments: Low < 1000 Moderate 1000 - 1299 Borderline-High 1300 - 1599 High 1600 - 2000 Very High > 2000 34-Qbo-074982:47 CBC W/AUTO DIFF WBC Comments: PATIENT WAS FASTINGPERFORMED BY: BN [facility] [address] [id number] BY: CB [facility] Fzdrrr3044 [facility] [id number] (21020) Immature Grans (Abs) 0.0 {x10E3/uL} (Normal) Range: 0.0-0.1 Immature Granulocytes 0 % (Normal) Baso (Absolute) 0.1 {x10E3/uL} (Normal) Range: 0.0-0.2 Eos (Absolute) 0.4 {x10E3/uL} (Normal) Range: 0.0-0.4 Monocytes(Absolute) 0.5 {x10E3/uL} (Normal) Range: 0.1-0.9 Lymphs (Absolute) 1.5 {x10E3/uL} (Normal) Range: 0.7-3.1 Neutrophils (Absolute) 5.2 {x10E3/uL} (Normal) Range: 1.4-7.0 Basos 1 % (Normal) Eos 5 % (Normal) Monocytes 7 % (Normal) Lymphs 19 % (Normal) Neutrophils 68 % (Normal) Platelets 199 {x10E3/uL} (Normal) Range: 150-379 RDW 14.4 % (Normal) Range: 12.3-15.4 MCHC 34.3 g/dL (Normal) Range: 31.5-35.7 MCH 31.7 pg (Normal) Range: 26.6-33.0 MCV 93 fL (Normal) Range: 79-97 Hematocrit 46.4 % (Normal) Range: 37.5-51.0 Hemoglobin 15.9 g/dL (Normal) Range: 13.0-17.7 RBC 5.01 {x10E6/uL} (Normal) Range: 4.14-5.80 WBC 7.6 {x10E3/uL} (Normal) Range: 3.4-10.8 :34 HgA1C , Office (90533) HgA1C , Office 5.2 % (Normal) Range: 4.6 - 7.1 :34 Blood Glucose , Office (46305) Blood Glucose , Office 89 (Normal) 8-Crv-892222:44 Microscopic Examination Comments: PATIENT WAS FASTINGPERFORMED BY: [employer] [id number] BY: [employer] Urcfrt9072 [facility] [id number] Bacteria None seen (Normal) Mucus Threads Present (Normal) Epithelial Cells (non renal) 0-10 {/hpf} (Normal) Range: 0 - 10 RBC None seen {/hpf} (Normal) Range: 0 - 2 WBC 0-5 {/hpf} (Normal) Range: 0 - 5 0-Ajg-283949:44 CALCIFIDIOL (00173) VIT D Comments: PATIENT WAS FASTINGPERFORMED BY: [employer] [id number] BY: ShipServHackettstown Medical CenterJfslsv5393 [facility] [id number] 25 Vitamin D, 25-Hydroxy 25.7 ng/mL (Abnormal) Range: 30.0-100.0 Comments: Vitamin D deficiency has been defined by the [place] of[place] and an Endocrine Society practice guideline as alevel of serum 25-OH vitamin D less than 20 ng/mL (1,2).The Endocrine Society went on to further define vitamin Dinsufficiency as a level between 21 and 29 ng/mL (2).1. IOM ([place] of [employer]). 2010. Dietary reference intakes for calcium and D. [place]: The National Academies Press.2. Luca MF, Elena AGARWAL, Vini ALVAREZ, et al. Evaluation, treatment, and prevention of vitamin D deficiency: an Endocrine Society clinical practice guideline. JCEM. 2010; 96(7):1911-30. 9-Tah-679526:44 VITAMIN B-12 (CYANOCOBALAMIN) Comments: PATIENT WAS FASTINGPERFORMED BY: [employer] [id number] BY: [employer] Iwfrfo9805 Bishop RoadDublin [place] [id number] (25796) Vitamin B12 362 pg/mL (Normal) Range: 232-1245 3-Wvo-486841:44 TSH (03617) Comments: PATIENT WAS FASTINGPERFORMED BY: [employer] O[address] [id number] BY: [employer] LabPreisbock6370 Bishop RoadDublin [place] [id number] TSH 0.957 {uIU/mL} (Normal) Range: 0.450-4.500 3-Vth-464084:44 URINALYSIS, W/ MICRO Comments: PATIENT WAS FASTINGPERFORMED BY: [employer] [id number] BY: [employer] Otethc5434 Bishop RoadDublin [place] [id number] (96191) Microscopic Examination See below: (Normal) Comments: Microscopic was indicated and was performed. Microscopic Examination MICRON (Normal) Comments: Microscopic follows if indicated. Nitrite, Urine Negative (Normal) Urobilinogen,Semi-Qn 0.2 mg/dL (Normal) Range: 0.2-1.0 Bilirubin Negative (Normal) Occult Blood Negative (Normal) Ketones Negative (Normal) Glucose Negative (Normal) Protein Negative (Normal) WBC Esterase Negative (Normal) Appearance Clear (Normal) Urine-Color Yellow (Normal) pH 7.5 (Normal) Range: 5.0-7.5 Specific [place] 1.018 (Normal) Range: 1.005-1.030 :44 MICROALBUMIN: CREATININE Comments: PATIENT WAS FASTINGPERFORMED BY: [employer] [id number] BY: ShipServHackettstown Medical CenterVbwjzm6722 [facility] [id number] RATIO (20776) AND (40992) Alb/Creat Ratio 8.8 {mg/g_creat} (Normal) Range: 0.0-30.0 Albumin, Urine 8.0 ug/mL (Normal) Creatinine, Urine 91.2 mg/dL (Normal) 1-Pev-043606:44 METABOLIC PANEL, Comments: PATIENT WAS FASTINGPERFORMED BY: [employer] [id number] BY: [employer] Vztrza8087 [facility] [id number] COMPREHENSIVE (42979) ALT (SGPT) 9 [iU]/L (Normal) Range: 0-44 AST (SGOT) 10 [iU]/L (Normal) Range: 0-40 Alkaline Phosphatase 89 [iU]/L (Normal) Range: 39-117 Bilirubin, Total 0.5 mg/dL (Normal) Range: 0.0-1.2 A/G Ratio 1.9 (Normal) Range: 1.2-2.2 Globulin, Total 2.3 g/dL (Normal) Range: 1.5-4.5 Albumin 4.4 g/dL (Normal) Range: 3.5-4.8 Protein, Total 6.7 g/dL (Normal) Range: 6.0-8.5 Calcium 8.9 mg/dL (Normal) Range: 8.6-10.2 Carbon Dioxide, Total 26 mmol/L (Normal) Range: 18-29 Chloride 101 mmol/L (Normal) Range: 96-106 Potassium 4.6 mmol/L (Normal) Range: 3.5-5.2 Sodium 144 mmol/L (Normal) Range: 134-144 BUN/Creatinine Ratio 18 (Normal) Range: 10-24 eGFR If Africn Am 89 mL/min/1.73 (Normal) eGFR If NonAfricn Am 77 mL/min/1.73 (Normal) Creatinine 0.98 mg/dL (Normal) Range: 0.76-1.27 BUN 18 mg/dL (Normal) Range: 8-27 Glucose 74 mg/dL (Normal) Range: 65-99 4-Vfr-252155:44 LIPOPROTEIN, BLD, BY NMR Comments: PATIENT WAS FASTINGPERFORMED BY: BN [facility] Ptrxugbyow6382 [facility] [id number] BY: CB [facility] Qioxwn5942 [facility] [id number] (41363) LP-IR Score 77 (Abnormal) Comments: INSULIN RESISTANCE MARKER <--Insulin Sensitive Insulin Resistant--> Percentile in Reference PopulationInsulin Resistance ScoreLP-IR Score Low 25th 50th 75th High <27 27 45 63 >63LP-IR Score is inaccurate if patient is non-fasting. .The LP-IR score is a laboratory developed i [facility] that has beenassociated with insulin resistance and diabetes risk and should beused as one component of a physician's clinical assessment. TheLP-IR score listed above has not been cleared by the US Food andDrug Administration. LDL Size 20.4 nm (Normal) Comments: INTERPRETATIVE INFORMATION PARTICLE CONCENTRATION AND SIZE <--Lower CVD Risk Highe r CVD Risk--> LDL AND HDL PARTICLES Percentile in Reference Population HDL-P (total) High 75th 50th 25th Low >34.9 34.9 30.5 26.7 <26.7 . Small LDL-P Low 25th 50th 75th High <117 117 527 839 >839 . LDL Size <-Large (Pattern A)-> <-Small (Pattern B)-> 23.0 20.6 20.5 19.0 Small LDL-P and LDL Size are associated with CVD risk, but not afterLDL-P is taken into account. .These assays were developed and their performance characteristicsdetermined by [employer]. These assays have not been cleared by [place] Food and Drug Administration. The clinical utility of theselaboratory values have not been fully established. Small LDL-P 652 nmol/L (Abnormal) HDL-P (Total) 25.7 umol/L (Abnormal) Cholesterol, Total 181 mg/dL (Normal) Range: 100-199 Triglycerides 165 mg/dL (Abnormal) Range: 0-149 HDL-C 34 mg/dL (Abnormal) LDL-C 114 mg/dL (Abnormal) Range: 0-99 Comments: . Optimal < 100 Above optimal 100 - 129 Borderline 1 30 - 159 High 160 - 189 Very high > 189 .LDL-C is inaccurate if patient is non-fasting. LDL-P 1492 nmol/L (Abnormal) Comments: Low < 1000 Moderate 1000 - 1299 Borderline-High 1300 - 1599 High 1600 - 2000 Very High > 2000 [id number]-[id number] CBC W/AUTO DIFF WBC Comments: PATIENT WAS FASTINGPERFORMED BY: BN [facility] [address] [id number] BY: CB [facility] Uglhqb3736 [facility] [id number] ([id number]) Immature Grans (Abs) 0.0 {x10E3/uL} (Normal) Range: 0.0-0.1 Immature Granulocytes 0 % (Normal) Baso (Absolute) 0.1 {x10E3/uL} (Normal) Range: 0.0-0.2 Eos (Absolute) 0.8 {x10E3/uL} (Abnormal) Range: 0.0-0.4 Monocytes(Absolute) 0.5 {x10E3/uL} (Normal) Range: 0.1-0.9 Lymphs (Absolute) 1.6 {x10E3/uL} (Normal) Range: 0.7-3.1 Neutrophils (Absolute) 6.3 {x10E3/uL} (Normal) Range: 1.4-7.0 Basos 1 % (Normal) Eos 9 % (Normal) Monocytes 5 % (Normal) Lymphs 17 % (Normal) Neutrophils 68 % (Normal) Platelets 223 {x10E3/uL} (Normal) Range: 150-379 RDW 14.0 % (Normal) Range: 12.3-15.4 MCHC 34.2 g/dL (Normal) Range: 31.5-35.7 MCH 32.5 pg (Normal) Range: 26.6-33.0 MCV 95 fL (Normal) Range: 79-97 Hematocrit 48.5 % (Normal) Range: 37.5-51.0 Hemoglobin 16.6 g/dL (Normal) Range: 13.0-17.7 RBC 5.10 {x10E6/uL} (Normal) Range: 4.14-5.80 WBC 9.2 {x10E3/uL} (Normal) Range: 3.4-10.8 9-Cae-086073:44 PSA (PROSTATE SPECIFIC Comments: PATIENT WAS FASTINGPERFORMED BY: BN [facility] [address] [id number] BY: CB [facility] Kxydij9225 [facility] [id number] ANTIGEN) (V76.44) Prostate Specific Ag, 0.9 ng/mL (Normal) Range: 0.0-4.0 Serum Comments: [place] ECLIA methodology. .According to the [place] [employer], Serum PSA shoulddecrease and remain at undetectable levels after radicalprostatectomy. The AUA defines biochemical recurrence as an initialPSA value 0.2 ng/mL or greater followed by a subsequent confirmatoryPSA value 0.2 ng/mL or greater.Values obtained with d ifferent assay methods or kits cannot be usedinterchangeably. Results cannot be interpreted as absolute evidenceof the presence or absence of malignant disease. 09-Axu-[id number] Lipid Profile Comments: Order Date: 05/15/17Order Info: [id number] - *Hepatic Function PanelOrder Info: [id number] - *Lipid Profile CC PCPComments: 12 hours fasting, may have water.[facility] [address] [place], [place], [id number] VLDL 20 mg/dL (Normal) Range: 5-40 LDL 80 mg/dL (Normal) Range: 0-130 HDL 37 mg/dL (Abnormal) Comments: The drugs N-Acetylcysteine and Metamizole may falselydepress this assay. Reference Range HDL <40 mg/dL Low HDL Cholesterol HDL >or= 60 mg/dL High HDL Cholesterol TRIG 101 mg/dL (Normal) Comments: The drugs N-Acetylcysteine and Metamizole may falselydepress this assay.Serum Triglycerides Reference Interval Normal <150 mg/dL Borderline high 150 - 199 mg/dL High 200 - 499 mg/dL Very High > or = 500 mg/dL CHOL 137 mg/dL (Normal) Comments: <200 mg/dL Desirable 200-240 mg/dL Borderline >240 mg/dL High Risk 31-Bes-96921:27 Liver Profile Comments: Order Date: 05/15/17Order Info: [id number] - *Hepatic Function PanelOrder Info: [id number] - *Lipid Profile CC PCPComments: 12 hours fasting, may have water.[facility] Amz[address]oh6981 [facility] [place], [address] D BILI 0.12 mg/dL (Normal) Range: 0.00-0.30 T BILI 0.40 mg/dL (Normal) Range: 0.20-1.00 ALT 22 U/L (Normal) Range: 16-61 Comments: Please note revised ALT reference range ktbogywai45/28/2018. ALK P 96 U/L (Normal) Range: 45-117 AST 17 U/L (Normal) Range: 15-37 GLOB 3.3 g/dL (Normal) Range: 2.2-4.2 ALB 3.8 g/dL (Normal) Range: 3.2-5.0 T PROT 7.1 g/dL (Normal) Range: 6.4-8.2 9-Dqx-835807:28 THROAT CULTURE (61602) Comments: PATIENT NOT FASTINGPERFORMED BY: [facility] Gmswpp8133 [facility] [id number] Information: SRC:TH Result 1 RRF (Normal) Comments: Routine respiratory thomas Upper Respiratory Culture Final report (Normal) 92-Kqs-47722:26 Lipid Profile Comments: Order Date: 04/22/17Order Info: [id number] - *Hepatic Function PanelOrder Info: [id number] - *Lipid Profile CC PCPComments: 12 hours fasting, may have water.[facility] [address] [place], [place], [id number] VLDL 22 mg/dL (Normal) Range: 5-40 LDL 68 mg/dL (Normal) Range: 0-130 HDL 41 mg/dL (Normal) Comments: The drugs N-Acetylcysteine and Metamizole may falselydepress this assay. Reference Range HDL <40 mg/dL Low HDL Cholesterol HDL >or= 60 mg/dL High HDL Cholesterol TRIG 110 mg/dL (Normal) Comments: The drugs N-Acetylcysteine and Metamizole may falselydepress this assay.Serum Triglycerides Reference Interval Normal <150 mg/dL Borderline high 150 - 199 mg/dL High 200 - 499 mg/dL Very High > or = 500 mg/dL CHOL 131 mg/dL (Normal) Comments: <200 mg/dL Desirable 200-240 mg/dL Borderline >240 mg/dL High Risk 43-Laz-57960:26 Liver Profile Comments: Order Date: 04/22/17Order Info: [id number] - *Hepatic Function PanelOrder Info: [id number] - *Lipid Profile CC PCPComments: 12 hours fasting, may have water.[facility] [address] [place], [place], [id number] D BILI 0.19 mg/dL (Normal) Range: 0.00-0.30 T BILI 0.70 mg/dL (Normal) Range: 0.20-1.00 ALT 22 U/L (Normal) Range: 12-78 ALK P 87 U/L (Normal) Range: 45-117 AST 15 U/L (Normal) Range: 15-37 GLOB 3.1 g/dL (Normal) Range: 2.3-3.5 ALB 3.7 g/dL (Normal) Range: 3.4-5.0 T PROT 6.8 g/dL (Normal) Range: 6.4-8.2 45-Agr-834052:34 PSA,Total - Annual Screen Comments: [facility] [address] [place], [place], [id number] PSA,TOT SCREEN 1.88 ng/mL (Normal) Range: 0.00-4.00 Comments: This test was performed using the TPSA assay method for [employer] chemistry system. Values obtained with differentassay methods cannot be used interchangably.When changing PSA assays in the course of monitoring apatient, additional sequential testing should be carriedout to confirm baseline values. :28 PT (PROTHROMBIN TIME) (85148) Comments: PATIENT NOT FASTINGPERFORMED BY: [employer] Riqcyw4186 [facility] [id number] Prothrombin Time 10.4 {sec} (Normal) Range: 9.1-12.0 INR 1.0 (Normal) Range: 0.8-1.2 Comments: Reference interval is for non-anticoagulated patients. . Suggested INR therapeutic range for Vitamin K anta gonist therapy: Standard Dose (moderate intensity therapeutic range): 2.0 - 3.0 Higher intensity therapeutic range 2.5 - 3.5 :28 CBC, Platelets & Auto Diff Comments: PATIENT NOT FASTINGPERFORMED BY: [employer] Clcvag9356 [facility] [id number] Information: [id number] (01446) Immature Grans (Abs) 0.0 {x10E3/uL} (Normal) Range: 0.0-0.1 Immature Granulocytes 0 % (Normal) Baso (Absolute) 0.1 {x10E3/uL} (Normal) Range: 0.0-0.2 Eos (Absolute) 0.2 {x10E3/uL} (Normal) Range: 0.0-0.4 Monocytes(Absolute) 0.5 {x10E3/uL} (Normal) Range: 0.1-0.9 Lymphs (Absolute) 1.2 {x10E3/uL} (Normal) Range: 0.7-3.1 Neutrophils (Absolute) 6.4 {x10E3/uL} (Normal) Range: 1.4-7.0 Basos 1 % (Normal) Eos 2 % (Normal) Monocytes 6 % (Normal) Lymphs 15 % (Normal) Neutrophils 76 % (Normal) Platelets 199 {x10E3/uL} (Normal) Range: 150-379 RDW 13.6 % (Normal) Range: 12.3-15.4 MCHC 33.6 g/dL (Normal) Range: 31.5-35.7 MCH 31.4 pg (Normal) Range: 26.6-33.0 MCV 93 fL (Normal) Range: 79-97 Hematocrit 47.3 % (Normal) Range: 37.5-51.0 Hemoglobin 15.9 g/dL (Normal) Range: 12.6-17.7 RBC 5.07 {x10E6/uL} (Normal) Range: 4.14-5.80 WBC 8.4 {x10E3/uL} (Normal) Range: 3.4-10.8 9-Evv-496611:28 Metabolic Panel, Basic (57923) Comments: PATIENT NOT FASTINGPERFORMED BY: [facility] CenterIifaqt1322 [facility] [id number] Calcium, Serum 8.8 mg/dL (Normal) Range: 8.6-10.2 Carbon Dioxide, Total 23 mmol/L (Normal) Range: 18-29 Chloride, Serum 102 mmol/L (Normal) Range: 97-108 Comments: Effective June 11, 2016 the reference interval for Chloride, Serum will be changing to: 97 - 106 Potassium, Serum 4.8 mmol/L (Normal) Range: 3.5-5.2 Comments: Effective June 11, 2016 the reference interval for Potassium, Serum will be changing to: 0 - 7 days 3.7 - 5.2 8 - 30 days 3.7 - 6.4 1 - 6 months 3.8 - 6.0 7 months - 1 year 3.8 - 5.3 >1 year 3.5 - 5.2 Sodium, Serum 143 mmol/L (Normal) Range: 134-144 Comments: Effective June 11, 2016 the reference interval for Sodium, Serum will be changing to: 136 - 144 BUN/Creatinine Ratio 13 (Normal) Range: 10-22 eGFR If Africn Am 73 mL/min/1.73 (Normal) eGFR If NonAfricn Am 63 mL/min/1.73 (Normal) Creatinine, Serum 1.17 mg/dL (Normal) Range: 0.76-1.27 BUN 15 mg/dL (Normal) Range: 8-27 Glucose, Serum 74 mg/dL (Normal) Range: 65-99 :16 Urinalysis, Office (26573) UA - LEUKOCYTE ESTERASE Negative (Normal) UA - NITRITE Negative (Normal) URINE UROBILINGN NELSON TIMED Normal mg/dL (Normal) UA - PROTEIN Negative mg/dL (Normal) UA - PH 7.0 (Normal) UA - BLOOD Non Hemolyzed Moderate (Normal) UA - SPECIFIC GRAVITY 1.010 (Normal) UA - KETONES Negative mg/dL (Normal) UA - BILIRUBIN Negative (Normal) UA - GLUCOSE Negative (Normal) 71-Kkf-861196:07 CBC-Complete Blood Cnt No Diff Comments: [facility] [address] [place], [place], [id number] MPV 10.2 fL (Normal) Range: 6.2-12.0 PLT 192 K/mm3 (Normal) Range: 150-450 RDW SD 44.9 fL (Abnormal) Range: 35.1-43.9 RDW CV 13.0 % (Normal) Range: 11.6-14.6 MCHC 33.3 {g/gl} (Normal) Range: 32-36 MCH 31.6 pg (Normal) Range: 27.0-32.0 MCV 94.8 fL (Abnormal) Range: 80-94 HCT 45.6 % (Normal) Range: 40-54 HGB 15.2 g/dL (Normal) Range: 13.0-16.5 RBC 4.81 {M/mm3} (Normal) Range: 4.6-6.2 WBC 8.7 K/mm3 (Normal) Range: 4.4-11.0 :39 HgA1C , Office (95216) HgA1C , Office 5.2 % (Normal) Range: 4.6 - 7.1 :39 Blood Glucose , Office (26478) Blood Glucose , Office 81 (Normal) :18 Microscopic Examination Comments: PATIENT WAS FASTINGPERFORMED BY: [facility]CoH[facility] CenterQuwpcm8123 [facility] [id number] Bacteria None seen (Normal) Mucus Threads Present (Normal) Crystal Type Calcium Oxalate (Normal) Crystals Present (Abnormal) Epithelial Cells (non renal) 0-10 {/hpf} (Normal) Range: 0 - 10 RBC 0-2 {/hpf} (Normal) Range: 0 - 2 WBC 0-5 {/hpf} (Normal) Range: 0 - 5 :18 TSH (68102) Comments: PATIENT WAS FASTINGPERFORMED BY: [facility]6370 [facility] [id number] TSH 0.790 {uIU/mL} (Normal) Range: 0.450-4.500 :18 URINALYSIS, W/ MICRO (71743) Comments: PATIENT WAS FASTINGPERFORMED BY: [facility]6370 [facility] [id number] Microscopic Examination See below: (Normal) Comments: Microscopic was indicated and was performed. Microscopic Examination MICRON (Normal) Comments: Microscopic follows if indicated. Nitrite, Urine Negative (Normal) Urobilinogen,Semi-Qn 0.2 mg/dL (Normal) Range: 0.2-1.0 Bilirubin Negative (Normal) Occult Blood Negative (Normal) Ketones Negative (Normal) Glucose Negative (Normal) Protein Trace (Normal) WBC Esterase Negative (Normal) Appearance Clear (Normal) Urine-Color Yellow (Normal) pH 6.0 (Normal) Range: 5.0-7.5 Specific [place] 1.028 (Normal) Range: 1.005-1.030 :18 MICROALBUMIN: CREATININE RATIO Comments: PATIENT WAS FASTINGPERFORMED BY: [facility]6370 [facility] [id number] (13163) AND (00431) Microalb/Creat Ratio 7.5 {mg/g_creat} (Normal) Range: 0.0-30.0 Microalbumin, Urine 13.6 ug/mL (Normal) Creatinine, Urine 182.3 mg/dL (Normal) :18 METABOLIC PANEL, COMPREHENSIVE Comments: PATIENT WAS FASTINGPERFORMED BY: [facility]6370 [facility] [id number] (87105) ALT (SGPT) 13 [iU]/L (Normal) Range: 0-44 AST (SGOT) 18 [iU]/L (Normal) Range: 0-40 Alkaline Phosphatase, S 84 [iU]/L (Normal) Range: 39-117 Bilirubin, Total 0.8 mg/dL (Normal) Range: 0.0-1.2 A/G Ratio 1.8 (Normal) Range: 1.1-2.5 Globulin, Total 2.3 g/dL (Normal) Range: 1.5-4.5 Albumin, Serum 4.1 g/dL (Normal) Range: 3.6-4.8 Protein, Total, Serum 6.4 g/dL (Normal) Range: 6.0-8.5 Calcium, Serum 8.7 mg/dL (Normal) Range: 8.6-10.2 Carbon Dioxide, Total 23 mmol/L (Normal) Range: 18-29 Chloride, Serum 101 mmol/L (Normal) Range: 97-108 Potassium, Serum 4.6 mmol/L (Normal) Range: 3.5-5.2 Sodium, Serum 142 mmol/L (Normal) Range: 134-144 BUN/Creatinine Ratio 19 (Normal) Range: 10-22 eGFR If Africn Am 79 mL/min/1.73 (Normal) eGFR If NonAfricn Am 68 mL/min/1.73 (Normal) Creatinine, Serum 1.10 mg/dL (Normal) Range: 0.76-1.27 BUN 21 mg/dL (Normal) Range: 8-27 Glucose, Serum 78 mg/dL (Normal) Range: 65-99 36-Wam-60911:18 LIPID PANEL (17514) Comments: PATIENT WAS FASTINGPERFORMED BY: [facility] Liukru9950 [facility] [id number]; fu 04-05-16 LDL/HDL Ratio 1.8 {ratio_units} (Normal) Range: 0.0-3.6 Comments: LDL/HDL Ratio Men Women 1/2 Avg.Risk 1.0 1.5 Av g.Risk 3.6 3.2 2X Avg.Risk 6.2 5.0 3X Avg.Risk 8.0 6.1 LDL Cholesterol Calc 63 mg/dL (Normal) Range: 0-99 VLDL Cholesterol Tone 19 mg/dL (Normal) Range: 5-40 HDL Cholesterol 35 mg/dL (Abnormal) Comments: According to ATP-III Guidelines, HDL-C >59 mg/dL is considered anegative risk factor for CHD. Triglycerides 96 mg/dL (Normal) Range: 0-149 Cholesterol, Total 117 mg/dL (Normal) Range: 100-199 :18 CBC W/AUTO DIFF WBC Comments: PATIENT WAS FASTINGPERFORMED BY: [facility]CoH[facility] CenterIgnvkq1735 [facility] [id number] Information: [id number] (74059) Immature Grans (Abs) 0.0 {x10E3/uL} (Normal) Range: 0.0-0.1 Immature Granulocytes 0 % (Normal) Baso (Absolute) 0.1 {x10E3/uL} (Normal) Range: 0.0-0.2 Eos (Absolute) 0.2 {x10E3/uL} (Normal) Range: 0.0-0.4 Monocytes(Absolute) 0.5 {x10E3/uL} (Normal) Range: 0.1-0.9 Lymphs (Absolute) 1.6 {x10E3/uL} (Normal) Range: 0.7-3.1 Neutrophils (Absolute) 4.3 {x10E3/uL} (Normal) Range: 1.4-7.0 Basos 1 % (Normal) Eos 4 % (Normal) Monocytes 8 % (Normal) Lymphs 24 % (Normal) Neutrophils 63 % (Normal) Platelets 185 {x10E3/uL} (Normal) Range: 150-379 RDW 13.6 % (Normal) Range: 12.3-15.4 MCHC 33.8 g/dL (Normal) Range: 31.5-35.7 MCH 31.6 pg (Normal) Range: 26.6-33.0 MCV 94 fL (Normal) Range: 79-97 Hematocrit 46.1 % (Normal) Range: 37.5-51.0 Hemoglobin 15.6 g/dL (Normal) Range: 12.6-17.7 RBC 4.93 {x10E6/uL} (Normal) Range: 4.14-5.80 WBC 6.7 {x10E3/uL} (Normal) Range: 3.4-10.8 :26 HgA1C , Office (09798) HgA1C , Office 5.3 % (Normal) Range: 4.6 - 7.1 :26 Blood Glucose , Office (10369) Blood Glucose , Office 86 (Normal) 47-Kmu-25360:36 LIPID PANEL (04688) Comments: PATIENT WAS FASTINGPERFORMED BY: DOROTHY [employer] Xftxbe7126 [facility] [id number] Information: [id number] LDL/HDL Ratio 1.4 {ratio_units} (Normal) Range: 0.0-3.6 Comments: LDL/HDL Ratio Men Women 1/2 Avg.Risk 1.0 1.5 Av g.Risk 3.6 3.2 2X Avg.Risk 6.2 5.0 3X Avg.Risk 8.0 6.1 LDL Cholesterol Calc 48 mg/dL (Normal) Range: 0-99 VLDL Cholesterol Tone 17 mg/dL (Normal) Range: 5-40 HDL Cholesterol 34 mg/dL (Abnormal) Comments: According to ATP-III Guidelines, HDL-C >59 mg/dL is considered anegative risk factor for CHD. Triglycerides 84 mg/dL (Normal) Range: 0-149 Cholesterol, Total 99 mg/dL (Abnormal) Range: 100-199 :08 LIPID PANEL (31095) Comments: copy to [employer]; PATIENT WAS FASTINGPERFORMED BY: DOROTHY [employer]6370 [facility] [id number]; apt. 06-[address]-15 LDL/HDL Ratio 1.7 {ratio_units} (Normal) Range: 0.0-3.6 Comments: LDL/HDL Ratio Men Women 1/2 Avg.Risk 1.0 1.5 Av g.Risk 3.6 3.2 2X Avg.Risk 6.2 5.0 3X Avg.Risk 8.0 6.1 LDL Cholesterol Calc 59 mg/dL (Normal) Range: 0-99 VLDL Cholesterol Tone 18 mg/dL (Normal) Range: 5-40 HDL Cholesterol 35 mg/dL (Abnormal) Comments: According to ATP-III Guidelines, HDL-C >59 mg/dL is considered anegative risk factor for CHD. Triglycerides 89 mg/dL (Normal) Range: 0-149 Cholesterol, Total 112 mg/dL (Normal) Range: 100-199 :08 METABOLIC PANEL, Comments: PATIENT WAS FASTINGPERFORMED BY: [employer]6370 [facility] [id number] Information: [id number] COMPREHENSIVE (27299) ALT (SGPT) 13 [iU]/L (Normal) Range: 0-44 AST (SGOT) 17 [iU]/L (Normal) Range: 0-40 Alkaline Phosphatase, S 91 [iU]/L (Normal) Range: 39-117 Bilirubin, Total 0.5 mg/dL (Normal) Range: 0.0-1.2 A/G Ratio 1.8 (Normal) Range: 1.1-2.5 Globulin, Total 2.3 g/dL (Normal) Range: 1.5-4.5 Albumin, Serum 4.2 g/dL (Normal) Range: 3.6-4.8 Protein, Total, Serum 6.5 g/dL (Normal) Range: 6.0-8.5 Calcium, Serum 8.5 mg/dL (Abnormal) Range: 8.6-10.2 Carbon Dioxide, Total 24 mmol/L (Normal) Range: 18-29 Chloride, Serum 104 mmol/L (Normal) Range: 97-108 Potassium, Serum 4.7 mmol/L (Normal) Range: 3.5-5.2 Sodium, Serum 143 mmol/L (Normal) Range: 134-144 BUN/Creatinine Ratio 23 (Abnormal) Range: 10-22 eGFR If Africn Am 89 mL/min/1.73 (Normal) eGFR If NonAfricn Am 77 mL/min/1.73 (Normal) Creatinine, Serum 0.99 mg/dL (Normal) Range: 0.76-1.27 BUN 23 mg/dL (Normal) Range: 8-27 Glucose, Serum 93 mg/dL (Normal) Range: 65-99 22-Uvk-139254:54 Basic Metabolic Profile (BMP) Comments: Serial Specimen #1, #2 or #3? 1'TROP' Serial specimen #1, #2, #3, or #4: 1Test performed at:[facility] [address] [place], [place] [id number] GAP 5 (Normal) Range: 5-15 CO2 29.0 mmol/L (Normal) Range: 21.0-32.0 CL 102 mmol/L (Normal) Range: 98-107 K 5.1 mmol/L (Normal) Range: 3.5-5.1 NA 136 mmol/L (Normal) Range: 136-145 CA 8.7 mg/dL (Normal) Range: 8.5-10.1 BUN/CRE 11.9 {RATIO} (Normal) Range: 10-20 Estimated CRCL 49.94 ml/min (Normal) EST GFR - AA 56 mL/min (Abnormal) EST GFR 46 mL/min (Abnormal) CREAT,SERUM 1.6 mg/dL (Abnormal) Range: 0.8-1.3 BUN 19 mg/dL (Abnormal) Range: 7-18 GLU 155 mg/dL (Abnormal) Range: 70-110 Comments: Fasting Glucose result greater than or equal to 126 mg/dLsuggests DIABETES MELLITUS per A.D.A. criteria. 13-Yyv-984494:54 CBC W/Diff, Automated Comments: Test performed at:[facility] [address] [place] [address] ; Ordered by another doctor Absolute Lymph 2.16 {X10_3/ul} (Normal) Range: 0.83-4.51 Absolute Neut 11.7 {X10_3/uL} (Abnormal) Range: 2.0-7.7 IM GRAN % 0.300 % (Normal) Range: 0.0-0.9 Comments: IG% - Immature Granulocytes (promyelocytes, myelocytes andmetamyelocytes) > 1% indicates that a LEFT SHIFT is Present. BASO% 0.7 % (Normal) Range: 0-1 EO% 2.0 % (Normal) Range: 0-5 MONO% 5.0 % (Normal) Range: 0-10 LY% 14.3 % (Abnormal) Range: 19-41 NEUT% 77.7 % (Abnormal) Range: 47-70 MPV 9.4 fL (Normal) Range: 6.2-12.0 PLT 300 K/mm3 (Normal) Range: 150-450 RDW SD 44.4 fL (Abnormal) Range: 35.1-43.9 RDW CV 13.3 % (Normal) Range: 11.6-14.6 MCHC 35.1 {g/gl} (Normal) Range: 32-36 MCH 33.1 pg (Abnormal) Range: 27.0-32.0 MCV 94.5 fL (Abnormal) Range: 80-94 HCT 48.5 % (Normal) Range: 40-54 HGB 17.0 g/dL (Abnormal) Range: 13.0-16.5 RBC 5.13 {M/mm3} (Normal) Range: 4.6-6.2 WBC 15.1 K/mm3 (Abnormal) Range: 4.4-11.0 :54 CK-MB Quantitative and Index Comments: Serial Specimen #1, #2 or #3? 1'TROP' Serial specimen #1, #2, #3, or #4: 1Test performed at:[facility] [address] [place], [place] [id number] CPKMB 1.0 ng/mL (Normal) Range: 0.0-5.0 Comments: CK-MB and RI Interpretation MB Relative Index Non-AMI <or= 5 NA Indeterminate > 5 <or= 4 AMI > 5 > 4 CPK TOTAL 101 U/L (Normal) Range: 39-308 :54 Troponin-I Comments: Serial Specimen #1, #2 or #3? 1'TROP' Serial specimen #1, #2, #3, or #4: 1Test performed at:[facility] [address] [place] [address] TROPONIN-I < 0.02 ng/mL (Normal) Comments: TROPONIN-I EXPECTED VALUES <0.05 NEGATIVE 0.06 - 0.59 AT RISK OF ID > OR = 0.60 SUGGEST ID :[id number] Metabolic Panel, Basic Comments: PATIENT NOT FASTINGPERFORMED BY: [facility]CoH[facility] CenterQtsnew3972 [facility] [id number] (20608) Calcium, Serum 9.1 mg/dL (Normal) Range: 8.6-10.2 Carbon Dioxide, Total 23 mmol/L (Normal) Range: 18-29 Chloride, Serum 101 mmol/L (Normal) Range: 97-108 Potassium, Serum 4.2 mmol/L (Normal) Range: 3.5-5.2 Sodium, Serum 142 mmol/L (Normal) Range: 134-144 BUN/Creatinine Ratio 15 (Normal) Range: 10-22 eGFR If Africn Am 83 mL/min/1.73 (Normal) eGFR If NonAfricn Am 72 mL/min/1.73 (Normal) Creatinine, Serum 1.06 mg/dL (Normal) Range: 0.76-1.27 BUN 16 mg/dL (Normal) Range: 8-27 Glucose, Serum 92 mg/dL (Normal) Range: 65-99 :33 PT (Prothrobim Time) (82153) Comments: PATIENT NOT FASTINGPERFORMED BY: [employer]6370 [facility] [id number] Prothrombin Time 10.1 {sec} (Normal) Range: 9.1-12.0 INR 1.0 (Normal) Range: 0.8-1.2 Comments: Reference interval is for non-anticoagulated patients. . Suggested INR therapeutic range for Vitamin K anta gonist therapy: Standard Dose (moderate intensity therapeutic range): 2.0 - 3.0 Higher intensity therapeutic range 2.5 - 3.5 :33 CBC, Platelets & Auto Comments: PATIENT NOT FASTINGPERFORMED BY: [employer]6370 [facility] [id number] Information: [id number] Diff (13495) Immature Grans (Abs) 0.0 {x10E3/uL} (Normal) Range: 0.0-0.1 Immature Granulocytes 0 % (Normal) Baso (Absolute) 0.0 {x10E3/uL} (Normal) Range: 0.0-0.2 Eos (Absolute) 0.3 {x10E3/uL} (Normal) Range: 0.0-0.4 Monocytes(Absolute) 0.8 {x10E3/uL} (Normal) Range: 0.1-0.9 Lymphs (Absolute) 2.2 {x10E3/uL} (Normal) Range: 0.7-3.1 Neutrophils (Absolute) 6.2 {x10E3/uL} (Normal) Range: 1.4-7.0 Basos 0 % (Normal) Eos 4 % (Normal) Monocytes 8 % (Normal) Lymphs 23 % (Normal) Neutrophils 65 % (Normal) Platelets 223 {x10E3/uL} (Normal) Range: 150-379 RDW 13.6 % (Normal) Range: 12.3-15.4 MCHC 34.6 g/dL (Normal) Range: 31.5-35.7 MCH 31.7 pg (Normal) Range: 26.6-33.0 MCV 92 fL (Normal) Range: 79-97 Hematocrit 46.0 % (Normal) Range: 37.5-51.0 Hemoglobin 15.9 g/dL (Normal) Range: 12.6-17.7 RBC 5.02 {x10E6/uL} (Normal) Range: 4.14-5.80 WBC 9.6 {x10E3/uL} (Normal) Range: 3.4-10.8 [id number] TSH (80101) Comments: PATIENT NOT FASTINGPERFORMED BY: [facility] GlobalHack[facility] CenterEvgznq2006 [facility] [id number] TSH 1.090 {uIU/mL} (Normal) Range: 0.450-4.500 :07 CBC, Platelets & Auto Comments: PATIENT NOT FASTINGPERFORMED BY: [facility] GlobalHackett[facility] CenterTkdrro7123 [facility] [id number] Information: [id number] Diff ([id number]) Immature Grans (Abs) 0.0 {x10E3/uL} (Normal) Range: 0.0-0.1 Immature Granulocytes 0 % (Normal) Baso (Absolute) 0.1 {x10E3/uL} (Normal) Range: 0.0-0.2 Eos (Absolute) 0.3 {x10E3/uL} (Normal) Range: 0.0-0.4 Monocytes(Absolute) 0.6 {x10E3/uL} (Normal) Range: 0.1-0.9 Lymphs (Absolute) 2.0 {x10E3/uL} (Normal) Range: 0.7-3.1 Neutrophils (Absolute) 5.5 {x10E3/uL} (Normal) Range: 1.4-7.0 Basos 1 % (Normal) Eos 4 % (Normal) Monocytes 7 % (Normal) Lymphs 24 % (Normal) Neutrophils 64 % (Normal) Platelets 179 {x10E3/uL} (Normal) Range: 150-379 RDW 14.0 % (Normal) Range: 12.3-15.4 MCHC 34.4 g/dL (Normal) Range: 31.5-35.7 MCH 31.7 pg (Normal) Range: 26.6-33.0 MCV 92 fL (Normal) Range: 79-97 Hematocrit 47.4 % (Normal) Range: 37.5-51.0 Hemoglobin 16.3 g/dL (Normal) Range: 12.6-17.7 RBC 5.14 {x10E6/uL} (Normal) Range: 4.14-5.80 WBC 8.6 {x10E3/uL} (Normal) Range: 3.4-10.8 11-Hps-[id number]:07 Metabolic Panel, Comprehensive Comments: PATIENT NOT FASTINGPERFORMED BY: [facility] [id number] [facility] [id number] ([id number]) ALT (SGPT) 15 [iU]/L (Normal) Range: 0-44 AST (SGOT) 14 [iU]/L (Normal) Range: 0-40 Alkaline Phosphatase, S 90 [iU]/L (Normal) Range: 39-117 Bilirubin, Total 0.4 mg/dL (Normal) Range: 0.0-1.2 A/G Ratio 1.7 (Normal) Range: 1.1-2.5 Globulin, Total 2.3 g/dL (Normal) Range: 1.5-4.5 Albumin, Serum 4.0 g/dL (Normal) Range: 3.6-4.8 Protein, Total, Serum 6.3 g/dL (Normal) Range: 6.0-8.5 Calcium, Serum 8.7 mg/dL (Normal) Range: 8.6-10.2 Carbon Dioxide, Total 25 mmol/L (Normal) Range: 18-29 Chloride, Serum 101 mmol/L (Normal) Range: 97-108 Potassium, Serum 4.6 mmol/L (Normal) Range: 3.5-5.2 Sodium, Serum 141 mmol/L (Normal) Range: 134-144 BUN/Creatinine Ratio 15 (Normal) Range: 10-22 eGFR If Africn Am 85 mL/min/1.73 (Normal) eGFR If NonAfricn Am 73 mL/min/1.73 (Normal) Creatinine, Serum 1.04 mg/dL (Normal) Range: 0.76-1.27 BUN 16 mg/dL (Normal) Range: 8-27 Glucose, Serum 80 mg/dL (Normal) Range: 65-99 9-Abc-[id number]:08 METANEPHRINES - URINE (47204) Comments: PATIENT NOT FASTINGPERFORMED BY: [facility] [id number] Metanephrine, U,24hr 135 {ug/24_hr} (Normal) Range: 45-290 Comments: (Hypertensive) >17 years 11 months: 35 - 460 Metanephrine, Ur 82 ug/L (Normal) Normetanephr.,U,24h 343 {ug/24_hr} (Normal) Range: 82-500 Comments: (Hypertensive) >17 years 11 months: 110 - 1050 Normetanephrine, Ur 208 ug/L (Normal) 3-Jnh-601315:08 CATECHOLAMINES TOTAL, URINE Comments: PATIENT NOT FASTINGPERFORMED BY: [facility] [id number] Information: SRC:LEANNA [id number] START 4@6:10AM 1,650ML FINISH 05/28/14@6: ([id number]) Dopamine, Ur, 24hr 117 {ug/24_hr} (Normal) Range: 0-510 Dopamine, Urine 71 ug/L (Normal) Norepinephrine,U,24h 51 {ug/24_hr} (Normal) Range: 0-135 Norepinephrine, Ur 31 ug/L (Normal) Epinephrine, U, 24hr 7 {ug/24_hr} (Normal) Range: 0-20 Epinephrine, Urine 4 ug/L (Normal) 6-Scv-826418:08 URINE VMA (81328) Comments: PATIENT NOT FASTINGPERFORMED BY: [facility] [id number] VMA, Urine, 24hr 3.1 {mg/24_hr} (Normal) Range: 0.0-7.5 VMA, Urine 1.9 mg/L (Normal) 31-Ewz-287644:47 Microscopic Examination Comments: PATIENT WAS FASTINGPERFORMED BY: [facility] Fduzig0488 [facility] [id number] Bacteria Few (Normal) Mucus Threads Present (Normal) Epithelial Cells (non renal) 0-10 {/hpf} (Normal) Range: 0 - 10 RBC 0-3 {/hpf} (Normal) Range: 0 - 3 WBC 0-5 {/hpf} (Normal) Range: 0 - 5 :42 PSA (PROSTATE SPECIFIC Comments: PATIENT WAS FASTINGPERFORMED BY: [employer] Tnwmnx3529 Radient PharmaceuticalsDublin [place] [id number] ANTIGEN) (V76.44) Prostate Specific Ag, 1.5 ng/mL (Normal) Range: 0.0-4.0 Serum Comments: Apt[employer]us ECLIA methodology. .According to the [place] [employer], Serum PSA shoulddecrease and remain at undetectable levels after radicalprostatectomy. The AUA defines biochemical recurrence as an initialPSA value 0.2 ng/mL or greater followed by a subsequent confirmatoryPSA value 0.2 ng/mL or greater.Values obtained with d ifferent assay methods or kits cannot be usedinterchangeably. Results cannot be interpreted as absolute evidenceof the presence or absence of malignant disease. :42 Vitamin D Hydroxy (68814) Comments: PATIENT WAS FASTINGPERFORMED BY: [employer] Yscbjm1749 Kiddie Kist RoadDublin [place] [id number] Vitamin D, 25-Hydroxy 40.9 ng/mL (Normal) Range: 30.0-100.0 Comments: Vitamin D deficiency has been defined by the [place] of[place] and an Endocrine Society practice guideline as alevel of serum 25-OH vitamin D less than 20 ng/mL (1,2).The Endocrine Society went on to further define vitamin Dinsufficiency as a level between 21 and 29 ng/mL (2).1. IOM ([place] of [employer]). 2010. Dietary reference intakes for calcium and D. [place]: The National Academies Press.2. Luca MF, Elena NC, Vini ALVAREZ, et al. Evaluation, treatment, and prevention of vitamin D deficiency: an Endocrine Society clinical practice guideline. JCEM. 2010; 96(7):1911-30. :42 TSH (58167) Comments: PATIENT WAS FASTINGPERFORMED BY: [employer] Yoekfp6517 Bishop RoadDublin [place] [id number] TSH 1.150 {uIU/mL} (Normal) Range: 0.450-4.500 :42 URINALYSIS, W/ MICRO (14541) Comments: PATIENT WAS FASTINGPERFORMED BY: [facility] GlobalHackettstown Medical CenterIxpzet3474 [facility] [id number] Microscopic Examination See below: (Normal) Nitrite, Urine Negative (Normal) Urobilinogen,Semi-Qn 0.2 mg/dL (Normal) Range: 0.0-1.9 Bilirubin Negative (Normal) Occult Blood Negative (Normal) Ketones Negative (Normal) Glucose Negative (Normal) Protein Negative (Normal) WBC Esterase Trace (Abnormal) Appearance Clear (Normal) Urine-Color Yellow (Normal) pH 6.5 (Normal) Range: 5.0-7.5 Specific [place] 1.011 (Normal) Range: 1.005-1.030 :42 MICROALBUMIN: CREATININE RATIO Comments: PATIENT WAS FASTINGPERFORMED BY: [facility] GlobalHackettstown Medical CenterPxhssi9603 [facility] [id number] ([id number]) AND (74322) Microalb/Creat Ratio 17.6 {mg/g_creat} (Normal) Range: 0.0-30.0 Microalbumin, Urine 13.2 ug/mL (Normal) Range: 0.0-17.0 Creatinine, Urine 75.1 mg/dL (Normal) Range: 22.0-328.0 :42 METABOLIC PANEL, COMPREHENSIVE Comments: PATIENT WAS FASTINGPERFORMED BY: [facility] GlobalHackettstown Medical CenterLywfoc3777 [facility] [id number] (83902) ALT (SGPT) 13 [iU]/L (Normal) Range: 0-44 AST (SGOT) 15 [iU]/L (Normal) Range: 0-40 Alkaline Phosphatase, S 96 [iU]/L (Normal) Range: 39-117 Bilirubin, Total 0.5 mg/dL (Normal) Range: 0.0-1.2 A/G Ratio 1.8 (Normal) Range: 1.1-2.5 Globulin, Total 2.5 g/dL (Normal) Range: 1.5-4.5 Albumin, Serum 4.4 g/dL (Normal) Range: 3.6-4.8 Protein, Total, Serum 6.9 g/dL (Normal) Range: 6.0-8.5 Calcium, Serum 9.0 mg/dL (Normal) Range: 8.6-10.2 Carbon Dioxide, Total 25 mmol/L (Normal) Range: 19-28 Chloride, Serum 102 mmol/L (Normal) Range: 97-108 Potassium, Serum 5.5 mmol/L (Abnormal) Range: 3.5-5.2 Sodium, Serum 140 mmol/L (Normal) Range: 134-144 BUN/Creatinine Ratio 16 (Normal) Range: 10-22 eGFR If Africn Am 68 mL/min/1.73 (Normal) eGFR If NonAfricn Am 59 mL/min/1.73 (Abnormal) Creatinine, Serum 1.25 mg/dL (Normal) Range: 0.76-1.27 BUN 20 mg/dL (Normal) Range: 8-27 Glucose, Serum 89 mg/dL (Normal) Range: 65-99 :42 LIPID PANEL (54787) Comments: PATIENT WAS FASTINGPERFORMED BY: [employer]70 [facility] [id number] LDL/HDL Ratio 3.5 {ratio_units} (Normal) Range: 0.0-3.6 LDL Cholesterol Calc 118 mg/dL (Abnormal) Range: 0-99 VLDL Cholesterol Tone 30 mg/dL (Normal) Range: 5-40 HDL Cholesterol 34 mg/dL (Abnormal) Comments: According to ATP-III Guidelines, HDL-C >59 mg/dL is considered anegative risk factor for CHD. Triglycerides 148 mg/dL (Normal) Range: 0-149 Cholesterol, Total 182 mg/dL (Normal) Range: 100-199 :42 CBC WITH MANUAL DIFF Comments: PATIENT WAS FASTINGPERFORMED BY: ShipServHackettstown Medical CenterZfppqh1084 [facility] [id number] Information: [id number] (22389) Immature Grans (Abs) 0.0 {x10E3/uL} (Normal) Range: 0.0-0.1 Immature Granulocytes 0 % (Normal) Range: 0-2 Baso (Absolute) 0.1 {x10E3/uL} (Normal) Range: 0.0-0.2 Eos (Absolute) 0.3 {x10E3/uL} (Normal) Range: 0.0-0.4 Monocytes(Absolute) 0.6 {x10E3/uL} (Normal) Range: 0.1-0.9 Lymphs (Absolute) 1.6 {x10E3/uL} (Normal) Range: 0.7-3.1 Neutrophils (Absolute) 5.6 {x10E3/uL} (Normal) Range: 1.4-7.0 Basos 1 % (Normal) Range: 0-3 Eos 3 % (Normal) Range: 0-5 Monocytes 7 % (Normal) Range: 4-12 Lymphs 20 % (Normal) Range: 14-46 Neutrophils 69 % (Normal) Range: 40-74 Platelets 205 {x10E3/uL} (Normal) Range: 155-379 RDW 13.6 % (Normal) Range: 12.3-15.4 MCHC 35.1 g/dL (Normal) Range: 31.5-35.7 MCH 31.7 pg (Normal) Range: 26.6-33.0 MCV 90 fL (Normal) Range: 79-97 Hematocrit 49.9 % (Normal) Range: 37.5-51.0 Hemoglobin 17.5 g/dL (Normal) Range: 12.6-17.7 RBC 5.52 {x10E6/uL} (Normal) Range: 4.14-5.80 WBC 8.1 {x10E3/uL} (Normal) Range: 3.4-10.8 1-Cxw-503258:47 CBC with manual diff Comments: PATIENT NOT FASTINGPERFORMED BY: LabCoHackettstown Medical CenterSojfxl8114 [facility] [id number] Information: [id number] ([id number]) Immature Grans (Abs) 0.0 {x10E3/uL} (Normal) Range: 0.0-0.1 Immature Granulocytes 0 % (Normal) Range: 0-2 Baso (Absolute) 0.1 {x10E3/uL} (Normal) Range: 0.0-0.2 Eos (Absolute) 0.3 {x10E3/uL} (Normal) Range: 0.0-0.4 Monocytes(Absolute) 0.4 {x10E3/uL} (Normal) Range: 0.1-1.0 Lymphs (Absolute) 1.6 {x10E3/uL} (Normal) Range: 0.7-4.5 Neutrophils (Absolute) 4.3 {x10E3/uL} (Normal) Range: 1.8-7.8 Basos 1 % (Normal) Range: 0-3 Eos 5 % (Normal) Range: 0-7 Monocytes 7 % (Normal) Range: 4-13 Lymphs 24 % (Normal) Range: 14-46 Neutrophils 63 % (Normal) Range: 40-74 Platelets 174 {x10E3/uL} (Normal) Range: 140-415 RDW 13.6 % (Normal) Range: 12.3-15.4 MCHC 34.6 g/dL (Normal) Range: 31.5-35.7 MCH 31.4 pg (Normal) Range: 26.6-33.0 MCV 91 fL (Normal) Range: 79-97 Hematocrit 48.0 % (Normal) Range: 37.5-51.0 Hemoglobin 16.6 g/dL (Normal) Range: 12.6-17.7 RBC 5.28 {x10E6/uL} (Normal) Range: 4.14-5.80 WBC 6.8 {x10E3/uL} (Normal) Range: 4.0-10.5 53-Evf-650307:21 Metabolic Panel, Comprehensive Comments: PATIENT NOT FASTINGPERFORMED BY: LabCoHackettstown Medical CenterMqlqci9423 [facility] [id number] ([id number]) ALT (SGPT) 16 [iU]/L (Normal) Range: 0-44 AST (SGOT) 18 [iU]/L (Normal) Range: 0-40 Alkaline Phosphatase, S 91 [iU]/L (Normal) Range: 25-160 Bilirubin, Total 0.4 mg/dL (Normal) Range: 0.0-1.2 A/G Ratio 1.7 (Normal) Range: 1.1-2.5 Globulin, Total 2.3 g/dL (Normal) Range: 1.5-4.5 Albumin, Serum 4.0 g/dL (Normal) Range: 3.6-4.8 Protein, Total, Serum 6.3 g/dL (Normal) Range: 6.0-8.5 Calcium, Serum 8.7 mg/dL (Normal) Range: 8.6-10.2 Carbon Dioxide, Total 23 mmol/L (Normal) Range: 20-32 Chloride, Serum 104 mmol/L (Normal) Range: 97-108 Potassium, Serum 4.2 mmol/L (Normal) Range: 3.5-5.2 Sodium, Serum 140 mmol/L (Normal) Range: 134-144 BUN/Creatinine Ratio 20 (Normal) Range: 10-22 eGFR If Africn Am 107 mL/min/1.73 (Normal) eGFR If NonAfricn Am 93 mL/min/1.73 (Normal) Creatinine, Serum 0.81 mg/dL (Normal) Range: 0.76-1.27 BUN 16 mg/dL (Normal) Range: 8-27 Glucose, Serum 81 mg/dL (Normal) Range: 65-99 43-Leq-625217:21 CBC, Platelets & Auto Comments: PATIENT NOT FASTINGPERFORMED BY: [facility] Duysba3492 [facility] [id number] Information: [id number] Diff (01404) Immature Grans (Abs) 0.0 {x10E3/uL} (Normal) Range: 0.0-0.1 Immature Granulocytes 0 % (Normal) Range: 0-2 Baso (Absolute) 0.0 {x10E3/uL} (Normal) Range: 0.0-0.2 Eos (Absolute) 0.4 {x10E3/uL} (Normal) Range: 0.0-0.4 Monocytes(Absolute) 0.5 {x10E3/uL} (Normal) Range: 0.1-1.0 Lymphs (Absolute) 1.8 {x10E3/uL} (Normal) Range: 0.7-4.5 Neutrophils (Absolute) 3.6 {x10E3/uL} (Normal) Range: 1.8-7.8 Basos 1 % (Normal) Range: 0-3 Eos 6 % (Normal) Range: 0-7 Monocytes 7 % (Normal) Range: 4-13 Lymphs 29 % (Normal) Range: 14-46 Neutrophils 57 % (Normal) Range: 40-74 Platelets 136 {x10E3/uL} (Abnormal) Range: 140-415 RDW 13.4 % (Normal) Range: 12.3-15.4 MCHC 34.9 g/dL (Normal) Range: 31.5-35.7 MCH 31.7 pg (Normal) Range: 26.6-33.0 MCV 91 fL (Normal) Range: 79-97 Hematocrit 45.6 % (Normal) Range: 37.5-51.0 Hemoglobin 15.9 g/dL (Normal) Range: 12.6-17.7 RBC 5.01 {x10E6/uL} (Normal) Range: 4.14-5.80 WBC 6.3 {x10E3/uL} (Normal) Range: 4.0-10.5 68-Ryy-378173:09 THYROID Radiology Report See Note (Normal) Comments: PROCEDURE: THYROID ULTRASOUND REASON FOR EXAM: Male, 67 years old. Nontoxic goiter. TECHNIQUE: Ultrasound evaluation of the thyroid was performed withreal-time and static tong-scale imaging. COMP ARISON: Comparison is made with prior examination dated . FINDINGS: RIGHT LOBE: The right lobe of the thyroid gland is enlarged and measures6.2 cm x 1.9 cm by 2.2 cm. There is a homo geneous echotexture. Thereisa 2 cm x 1.6 cm x 1.0 cm solid nodule in the lower pole. This hasincreased slightly in size since prior study. LEFT LOBE: The left lobe of the thyroid gland measures 5.2 cm x 2.1 cmby2.1 cm. There is a homogeneous echotexture. There is a 5 mm x 3 mm x 3mmcystic nodule in the midportion of the left lobe. This is unchanged. ISTHMUS: The isthmus measures 3.3 mm. IMPRES CARLOS:There is been a slight increase in size of the solid nodule in the rightlobe of the thyroid. Signed:Franko Julien M.D.May 20, 2012 at 3:49:16 PM [id number] Signed GP/ GP If you are the referring physician and would like to consult with theradiologist who provided this interpretation, please contact Denton Chau at [phone]. If this radiologist is unava ilable, youwill be directed to another radiologist to assist. If you are a patient with a question regarding this report, pleasecontactyour referring physician directly. Professional Interpretation Prov ided By: Guillermo, Phone , These documents contain legally protected and confidential healthinformation intended only for the use of the individual or entity namedabove. If you are not the intended recipient, you are hereby notifiedthatany disclosure, copying, distribution, or other use of these documents isstrictly prohibited. If you have received this information in error,pleasenotify the sender immediately and arrange for the return or destructionofthese documents. Dictated on 05/20/12 1107 by Erich LANG,Cherylranscribed on 05/20/12 1555 by ITS IMPORTSign by Erich LANG,Franko on 05/20/12 1556 Sign by: Franko Julien MD 7-Fpa-519903:48 LIPID PANEL ([id number]) Comments: PATIENT WAS FASTINGPERFORMED BY: [employer] Hrmdzc6865 [facility] HospitalKIWATCHSam[facility] [id number] Information: [id number],2ND ORDER NO DRAW F EE LDL Cholesterol Calc 103 mg/dL (Abnormal) Range: 0-99 LDL/HDL Ratio 3.2 {ratio_units} (Normal) Range: 0.0-3.6 HDL Cholesterol 32 mg/dL (Abnormal) Comments: According to ATP-III Guidelines, HDL-C >59 mg/dL is considered anegative risk factor for CHD. VLDL Cholesterol Tone 33 mg/dL (Normal) Range: 5-40 Triglycerides 163 mg/dL (Abnormal) Range: 0-149 Cholesterol, Total 168 mg/dL (Normal) Range: 100-199 6-Obe-352593:48 CALCIFEDIOL (38620) Comments: PATIENT WAS FASTINGPERFORMED BY: ShipServHackettstown Medical CenterFnkcsb1036 [facility] [id number] Vitamin D, 25-Hydroxy 68.9 ng/mL (Normal) Range: 30.0-100.0 Comments: Vitamin D deficiency has been defined by the [place] of[place] and an Endocrine Society practice guideline as alevel of serum 25-OH vitamin D less than 20 ng/mL (1,2).The Endocrine Society went on to further define vitamin Dinsufficiency as a level between 21 and 29 ng/mL (2).1. IOM ([place] of [employer]). 2010. Dietary reference intakes for calcium and D. [place]: The National Academies Press.2. Luca MF, Elena NC, Vini ALVAREZ, et al. Evaluation, treatment, and prevention of vitamin D deficiency: an Endocrine Society clinical practice guideline. JCEM. 2010; 96(7):1911-30. 52-Stk-79264:33 CHEST, PA AND LATERAL Radiology Report See Note (Normal) Comments: PROCEDURE: X-RAY CHEST REASON FOR EXAM: Male, 67 years old. Routine examination. TECHNIQUE: PA and lateral views of the chest. COMPARISON: Comparison is made with prior study dated January 31, 2009 . FINDINGS: The lungs are expanded. There is no demonstrated parenchymalabnormality.There is evidence of calcified old granulomatous disease. There is nodemonstrated pleural abnormality. Normal heart and pericardium. Normal mediastinum and shayan. Normal visualized pulmonary arteries.Thereis atherosclerotic tortuosity of the aortic arch and descending thoracicaorta. Normal visualized thoracic spine. Normal visualized ribs, clavicles, andshoulders. There is no demonstrated abnormality of the visualized soft tissuestructures of the upper abdomen. IMPRESSION:No acute abnormality is seen. Signed:Bear Julien M.D.2012 at 2:44:05 PM [id number] Signed GP/GP If you are the referring physician and would like to consult with theradiologist who provided this interpre tation, please contact Denton Chau at [phone]. If this radiologist is unavailable, youwill be directed to another radiologist to assist. If you are a patient with a question regarding t his report, pleasecontactyour referring physician directly. Professional Interpretation Provided By: [employer], Phone , These documents contain legally protected and conf idential healthinformation intended only for the use of the individual or entity namedabove. If you are not the intended recipient, you are hereby notifiedthatany disclosure, copying, distribution, or o ther use of these documents isstrictly prohibited. If you have received this information in error,pleasenotify the sender immediately and arrange for the return or destructionofthese documents. Dicta manju on 05/08/12 0900 by Erich LANG,GalileorieleTranscribed on 05/08/12 1450 by ITS IMPORTSign by Erich LANG,Franko on 05/08/12 1451 Sign by: Franko Julien MD :33 Microscopic Examination Comments: PATIENT WAS FASTINGPERFORMED BY: [facility] GlobalHackettstown Medical CenterDknwfd8276 [facility] [id number] Bacteria None seen (Normal) Mucus Threads Present (Normal) Epithelial Cells (non renal) 0-10 {/hpf} (Normal) Range: 0 - 10 RBC 0-3 {/hpf} (Normal) Range: 0 - 3 WBC 0-5 {/hpf} (Normal) Range: 0 - 5 :33 TSH (09885) Comments: PATIENT WAS FASTINGPERFORMED BY: [facility] GlobalHackettstown Medical CenterApqlcb8324 [facility] [id number] TSH 0.773 {uIU/mL} (Normal) Range: 0.450-4.500 :33 URINALYSIS, W/ MICRO (41771) Comments: PATIENT WAS FASTINGPERFORMED BY: [facility] GlobalHackettstown Medical CenterBznrwk7485 [facility] [id number] Microscopic Examination See below: (Normal) Microscopic Examination MICRON (Normal) Comments: Microscopic follows if indicated. Nitrite, Urine Negative (Normal) Urobilinogen,Semi-Qn 1.0 mg/dL (Normal) Range: 0.0-1.9 Bilirubin Negative (Normal) Occult Blood Negative (Normal) Ketones Negative (Normal) Glucose Negative (Normal) Protein Trace (Normal) WBC Esterase Negative (Normal) Appearance Clear (Normal) Urine-Color Yellow (Normal) pH 6.0 (Normal) Range: 5.0-7.5 Specific [place] 1.019 (Normal) Range: 1.005-1.030 :33 MICROALBUMIN: CREATININE RATIO Comments: PATIENT WAS FASTINGPERFORMED BY: [employer]70 [facility] [id number] ([id number]) AND (24336) Microalb/Creat Ratio 3.7 {mg/g_creat} (Normal) Range: 0.0-30.0 Creatinine, Urine 262.2 mg/dL (Normal) Range: 22.0-328.0 Microalbumin, Urine 9.6 ug/mL (Normal) Range: 0.0-17.0 :33 METABOLIC PANEL, COMPREHENSIVE Comments: PATIENT WAS FASTINGPERFORMED BY: [employer]70 [facility] [id number] (14581) ALT (SGPT) 19 [iU]/L (Normal) Range: 0-55 AST (SGOT) 21 [iU]/L (Normal) Range: 0-40 Alkaline Phosphatase, S 93 [iU]/L (Normal) Range: 25-160 Bilirubin, Total 1.1 mg/dL (Normal) Range: 0.0-1.2 A/G Ratio 1.8 (Normal) Range: 1.1-2.5 Globulin, Total 2.4 g/dL (Normal) Range: 1.5-4.5 Albumin, Serum 4.2 g/dL (Normal) Range: 3.6-4.8 Protein, Total, Serum 6.6 g/dL (Normal) Range: 6.0-8.5 Calcium, Serum 8.9 mg/dL (Normal) Range: 8.6-10.2 Carbon Dioxide, Total 23 mmol/L (Normal) Range: 20-32 Chloride, Serum 104 mmol/L (Normal) Range: 97-108 Potassium, Serum 4.6 mmol/L (Normal) Range: 3.5-5.2 Sodium, Serum 141 mmol/L (Normal) Range: 134-144 BUN/Creatinine Ratio 18 (Normal) Range: 10-22 eGFR If Africn Am 88 mL/min/1.73 (Normal) eGFR If NonAfricn Am 76 mL/min/1.73 (Normal) Creatinine, Serum 1.02 mg/dL (Normal) Range: 0.76-1.27 BUN 18 mg/dL (Normal) Range: 8-27 Glucose, Serum 90 mg/dL (Normal) Range: 65-99 :33 LIPID PANEL (70495) Comments: PATIENT WAS FASTINGPERFORMED BY: LabCoHackettstown Medical CenterQsxiko6712 [facility] [id number] LDL/HDL Ratio 3.7 {ratio_units} (Abnormal) Range: 0.0-3.6 LDL Cholesterol Calc 143 mg/dL (Abnormal) Range: 0-99 Comments: Please note reference interval change VLDL Cholesterol Tone 25 mg/dL (Normal) Range: 5-40 HDL Cholesterol 39 mg/dL (Abnormal) Comments: According to ATP-III Guidelines, HDL-C >59 mg/dL is considered anegative risk factor for CHD. Triglycerides 124 mg/dL (Normal) Range: 0-149 Comments: Please note reference interval change Cholesterol, Total 207 mg/dL (Abnormal) Range: 100-199 Comments: Please note reference interval change :33 CBC WITH MANUAL DIFF Comments: PATIENT WAS FASTINGPERFORMED BY: LabCoHackettstown Medical CenterMukxrz8295 [facility] [id number] Information: [id number] ([id number]) Immature Grans (Abs) 0.0 {x10E3/uL} (Normal) Range: 0.0-0.1 Immature Granulocytes 0 % (Normal) Range: 0-2 Baso (Absolute) 0.1 {x10E3/uL} (Normal) Range: 0.0-0.2 Eos (Absolute) 0.5 {x10E3/uL} (Abnormal) Range: 0.0-0.4 Monocytes(Absolute) 0.7 {x10E3/uL} (Normal) Range: 0.1-1.0 Lymphs (Absolute) 1.7 {x10E3/uL} (Normal) Range: 0.7-4.5 Neutrophils (Absolute) 5.7 {x10E3/uL} (Normal) Range: 1.8-7.8 Basos 1 % (Normal) Range: 0-3 Eos 6 % (Normal) Range: 0-7 Monocytes 8 % (Normal) Range: 4-13 Lymphs 20 % (Normal) Range: 14-46 Neutrophils 65 % (Normal) Range: 40-74 Platelets 191 {x10E3/uL} (Normal) Range: 140-415 RDW 13.8 % (Normal) Range: 12.3-15.4 MCHC 34.4 g/dL (Normal) Range: 31.5-35.7 MCH 31.7 pg (Normal) Range: 26.6-33.0 MCV 92 fL (Normal) Range: 79-97 Hematocrit 49.7 % (Normal) Range: 37.5-51.0 Hemoglobin 17.1 g/dL (Normal) Range: 12.6-17.7 RBC 5.39 {x10E6/uL} (Normal) Range: 4.14-5.80 WBC 8.7 {x10E3/uL} (Normal) Range: 4.0-10.5 7-Avu-533776:48 PSA (PROSTATE SPECIFIC Comments: PATIENT NOT FASTINGPERFORMED BY: LabHenry [facility]6370 [facility] [id number] Information: [id number],2ND ORDER NO DRAW F EE ANTIGEN) (V76.44) Prostate Specific Ag, 0.7 ng/mL (Normal) Range: 0.0-4.0 Serum Comments: Apt[employer]us ECLIA methodology. .According to the [place] [employer], Serum PSA shoulddecrease and remain at undetectable levels after radicalprostatectomy. The AUA defines biochemical recurrence as an initialPSA value 0.2 ng/mL or greater followed by a subsequent confirmatoryPSA value 0.2 ng/mL or greater.Values obtained with d ifferent assay methods or kits cannot be usedinterchangeably. Results cannot be interpreted as absolute evidenceof the presence or absence of malignant disease. 1-Cli-906531:51 CBCD,SMEAR DIFF MACROCYTE 1+ (Normal) RED CELL MORPH N CHROM {NORMAL} (Normal) PLT EST SeeNote (Normal) Comments: Result: ADEQUATE EOS 1 % (Normal) Range: 0-5 MONOCYTE 5 % (Normal) Range: 0-10 LYMPH 16 % (Abnormal) Range: 19-41 SEGS 78 % (Abnormal) Range: 47-70 CELLS COUNTED 100 (Normal) ABSOLUTE NEUT 6.3 3/uL (Normal) Range: 2.0-7.7 PLT 220 K/mm3 (Normal) Range: 150-450 RDW 13.4 % (Normal) Range: 11.6-14.6 MCHC 34.6 g/dL (Normal) Range: 32-36 MCH 32.6 pg (Abnormal) Range: 27.0-32.0 MCV 94.3 fL (Abnormal) Range: 80-94 HCT 48.4 % (Normal) Range: 40-54 HGB 16.8 g/dL (Normal) Range: 14.0-18.0 RBC 5.13 {M/mm3} (Normal) Range: 4.6-6.2 WBC 8.7 K/mm3 (Normal) Range: 4.4-11.0 3-Duy-499059:51 COMP METABOLIC GAP 9 (Normal) Range: 5-15 CO2 30.0 mmol/L (Normal) Range: 21.0-32.0 CL 101 mmol/L (Normal) Range: 98-107 K 4.4 mmol/L (Normal) Range: 3.5-5.1 NA 140 mmol/L (Normal) Range: 136-145 T BILI 1.00 mg/dL (Normal) Range: 0.00-1.00 ALT 26 U/L (Normal) Range: 12-78 ALK P 93 U/L (Normal) Range: 50-136 AST 17 U/L (Normal) Range: 15-37 CA 8.5 mg/dL (Normal) Range: 8.5-10.1 A/G 1.2 {RATIO} (Normal) Range: 0.9-2.4 GLOB 3.3 g/dL (Normal) Range: 2.7-4.2 ALB 4.1 g/dL (Normal) Range: 3.4-5.0 T PROT 7.4 g/dL (Normal) Range: 6.4-8.2 BUN/CRE 14.0 {RATIO} (Normal) Range: 10-20 EST GFR - AA 97 mL/min (Normal) EST GFR 80 mL/min (Normal) CREAT,SERUM 1.0 mg/dL (Normal) Range: 0.8-1.3 BUN 14 mg/dL (Normal) Range: 7-18 GLU 75 mg/dL (Normal) Range: 70-110 1-Jyr-271407:51 COMPLETE UA MUCUS, URINE 0 SEEN {/hpf} (Normal) BACTERIA RARE {/hpf} (Normal) SQUAM EPI SeeNote {/hpf} (Normal) Range: 0-5 Comments: Result: 0-5 SEEN RBC-UA 0 SEEN {/hpf} (Normal) Range: 0-5 WBC SeeNote {/hpf} (Normal) Range: 0-5 Comments: Result: 0-5 SEEN LEUK ESTERASE TRACE (Abnormal) OCCULT BLOOD-UR SeeNote (Abnormal) Comments: Result: TRACE-INTACT NITRITE UR SeeNote (Normal) Comments: Result: NEGATIVE UROBILI 0.2 EU/dl (Normal) Range: 0.2 - 1.0 PROT DIPSTX SeeNote (Normal) Comments: Result: NEGATIVE pH UR 6.0 (Normal) Range: 5.0-8.0 SP.GR. DIPSTX 1.015 (Normal) Range: 1.002-1.030 KETONE UR SeeNote mg/dL (Normal) Comments: Result: NEGATIVE BILIRUBIN URINE SeeNote (Normal) Comments: Result: NEGATIVE GLUCOSE, UR SeeNote (Normal) Comments: Result: NEGATIVE CLARITY CLEAR (Normal) COLOR YELLOW (Normal) 3-Tbc-636761:51 LIPID VLDL 35 mg/dL (Normal) Range: 5-40 LDL 119 mg/dL (Normal) Range: 0-130 HDL 34 mg/dL (Abnormal) Comments: Reference Range HDL <40 mg/dL Low HDL Cholesterol HDL >or= 60 mg/dL High HDL Cholesterol TRIG 176 mg/dL (Normal) Comments: Serum Triglycerides Reference Interval Normal <150 mg/dL Borderline high 150 - 199 mg/dL High 200 - 499 mg/dL Very High > or = 500 mg/dL CHOL 188 mg/dL (Normal) Comments: <200 mg/dL Desirable 200-240 mg/dL Borderline >240 mg/dL High Risk 3-Vpv-[id number]:51 MICROALB:CRE UR MALB:CREAT 23.7 {mg/g_CRE} (Normal) MICROALBUMIN,UR 23.6 mg/L (Normal) UR CREAT 99.5 mg/dL (Normal) 4-Stb-515565:51 TSH 1.15 {uIU/mL} (Normal) Range: 0.358-3.74 36-Jiv-08967:19 THYROID (HP) Radiology Report See Note (Normal) Comments: Exam Number: [id number] LINICAL:Goiter. Bilateral thyroid nodules. ULTRASOUND THYROID TECHNIQUE:Multiple ultrasound images of the thyroid gland are submitted forinterpretation with the techn ologist work sheet. COMPARISON:06/14/09 FINDINGS:The right thyroid lobe is enlarged and heterogeneous, measuring 5.7x 1.9 x 2.0 cm. in there is a hypoechoic, solid nodule in the lowerpole of the right thyroid lobe t hat measures 1.7 x 1.6 x 0.9 cm anddoes not appear significantly changed. A small hypoechoic nodule inthe upper pole of the right thyroid lobe measuring 0.4 x 0.5 x 0.2cm appears stable, but was not me asured on the previous exam. The left thyroid lobe is enlarged and heterogeneous measuring 5.2 x2.0 x 1.8 cm. There is a small hypoechoic nodule in the left midthyroid lobe that measures 0.7 x 0.4 x 0. 4 cm and is notsignificantly changed. There is no discrete solid or cystic lesion. Normal thyroid isthmus. There is no perithyroidal pathology. IMPRESSION:Enlarged, heterogeneous thyroid gland containin g scattered nodulesmeasuring up to 1.7 cm in the right inferior thyroid lobe. These donot appear significantly changed compared to the previous exam. Reported By: JENNY DAMON M.D. 03-Sar-76685:45 CBCD,SMEAR DIFF Comments: ORDERED PSA,BMPDR.JOSE ORDERED EVERYTHING BUT PSA PLT EST SeeNote (Normal) Comments: Result: ADEQUATE RED CELL MORPH SeeNote {NORMAL} (Normal) Comments: Result: NORM C+C ABSOLUTE NEUT 4.8 3/uL (Normal) Range: 2.0-7.7 BAND 1 % (Normal) Range: 0-5 CELLS COUNTED 100 (Normal) EOS 1 % (Normal) Range: 0-5 HCT 44.5 % (Normal) Range: 40-54 HGB 15.5 g/dL (Normal) Range: 14.0-18.0 LYMPH 16 % (Abnormal) Range: 19-41 MCH 32.0 pg (Normal) Range: 27.0-32.0 MCHC 34.8 g/dL (Normal) Range: 32-36 MCV 91.8 fL (Normal) Range: 80-94 MONOCYTE 10 % (Normal) Range: 0-10 PLT 207 K/mm3 (Normal) Range: 150-450 RBC 4.84 {M/mm3} (Normal) Range: 4.6-6.2 RDW 13.7 % (Normal) Range: 11.6-14.6 SEGS 72 % (Abnormal) Range: 47-70 WBC 6.9 K/mm3 (Normal) Range: 4.4-11.0 :45 COMP METABOLIC Comments: ORDERED PSA,BMPDRMINH ORDERED EVERYTHING BUT PSA CL 107 mmol/L (Normal) Range: 98-107 CO2 26.0 mmol/L (Normal) Range: 21.0-32.0 GAP 7 (Normal) Range: 5-15 K 4.5 mmol/L (Normal) Range: 3.5-5.1 NA 140 mmol/L (Normal) Range: 136-145 A/G 1.1 {RATIO} (Normal) Range: 0.9-2.4 ALB 3.6 g/dL (Normal) Range: 3.4-5.0 ALK P 88 U/L (Normal) Range: 50-136 ALT 21 U/L (Normal) Range: 12-78 AST 16 U/L (Normal) Range: 15-37 BUN 21 mg/dL (Abnormal) Range: 7-18 BUN/CRE 17.5 {RATIO} (Normal) Range: 10-20 CA 8.2 mg/dL (Abnormal) Range: 8.5-10.1 CREAT,SERUM 1.2 mg/dL (Normal) Range: 0.8-1.3 EST GFR 65 mL/min (Normal) EST GFR - AA 79 mL/min (Normal) GLOB 3.3 g/dL (Normal) Range: 2.7-4.2 GLU 103 mg/dL (Normal) Range: 70-110 T BILI 0.60 mg/dL (Normal) Range: 0.00-1.00 T PROT 6.9 g/dL (Normal) Range: 6.4-8.2 :45 COMPLETE UA Comments: ORDERED PSA,LITO ORDERED EVERYTHING BUT PSA AMORPHOUS 3+ (Normal) BACTERIA 0 SEEN {/hpf} (Normal) CA OX CRYSTAL 1+ {/hpf} (Normal) LEUK ESTERASE SeeNote (Normal) Comments: Result: NEGATIVE MUCUS, URINE 0 SEEN {/hpf} (Normal) NITRITE UR SeeNote (Normal) Comments: Result: NEGATIVE OCCULT BLOOD-UR SeeNote (Abnormal) Comments: Result: TRACE-LYSED RBC-UA 0 SEEN {/hpf} (Normal) Range: 0-5 SQUAM EPI 0 SEEN {/hpf} (Normal) Range: 0-5 WBC 0 SEEN {/hpf} (Normal) Range: 0-5 BILIRUBIN URINE SeeNote (Normal) Comments: Result: NEGATIVE GLUCOSE, UR SeeNote (Normal) Comments: Result: NEGATIVE KETONE UR SeeNote mg/dL (Normal) Comments: Result: NEGATIVE pH UR 6.0 (Normal) Range: 5.0-8.0 PROT DIPSTX SeeNote (Normal) Comments: Result: NEGATIVE SP.GR. DIPSTX >=1.030 (Normal) Range: 1.002-1.030 UROBILI 0.2 EU/dl (Normal) Range: 0.2 - 1.0 CLARITY CLOUDY (Normal) COLOR YELLOW (Normal) :45 FREE T3 3.0 pg/mL (Normal) Comments: ORDERED PSA,LITO ORDERED EVERYTHING BUT PSA Range: 2.18-3.98 :45 LIPID Comments: ORDERED PSA,LITO ORDERED EVERYTHING BUT PSA VLDL 30 mg/dL (Normal) Range: 5-40 CHOL 172 mg/dL (Normal) Comments: <200 mg/dL Bboalsust553-962 mg/dL Borderline>240 mg/dL High Risk HDL 34 mg/dL (Abnormal) Comments: Reference RangeHDL <40 mg/dL Low HDL CholesterolHDL >or= 60 mg/dL High HDL Cholesterol LDL 108 mg/dL (Normal) Range: 0-130 TRIG 149 mg/dL (Normal) Comments: Serum Triglycerides Reference IntervalNormal <150 mg/dLBorderline high 150 - 199 mg/dLHigh 200 - 499 mg/ dLVery High > or = 500 mg/dL :45 MICROALB:CRE UR Comments: ORDERED PSALITO ORDERED EVERYTHING BUT PSA MALB:CREAT 6.5 {mg/g_CRE} (Normal) MICROALBUMIN,UR 17.2 mg/L (Normal) UR CREAT 263.3 mg/dL (Normal) :45 PSA, SCREEN 0.7 ng/mL (Normal) Comments: ORDERED PSA,BMPDR.JOSE ORDERED EVERYTHING BUT PSA Range: 0.0-4.0 :45 T4 FREE DIRECT 0.94 ng/dL (Normal) Comments: ORDERED PSA,BMPDR.JOSE ORDERED EVERYTHING BUT PSA Range: 0.76-1.46 :45 TSH 0.77 {uIU/mL} (Normal) Comments: ORDERED PSA,BMPDR.JOSE ORDERED EVERYTHING BUT PSA Range: 0.358-3.74 91-Cmu-74935:15 HEPATOBILIARY IMAGING Radiology Report See Note (Normal) Comments: Exam Number: [id number] HEPATOBILIARY SCAN WITH KINEVAC HISTORYThimahsa is a 64-year-old male patient with history of left lower quadrantpain. TECHNIQUE5.2 mCi of Tc99m labelled Choletec were given intraveno usly.Multiple scintiphotos of the right upper quadrant were obtained. 1.9micrograms of Kinevac were given intravenously at approximately 30minutes following the injection of Choletec. The gallbladder ejectionfraction was then obtained. FINDINGSThere is homogeneous uptake by the hepatocytes. The gallbladder isopacified within 30 minutes. Following the intravenous injection ofKinevac, the gallbladd er contracted with an ejection fraction of 39%.This is within normal limits. IMPRESSIONNormal hepatobiliary scan with Kinevac. Reported By: FRANKO JULIEN 16-Tjq-[id number]:21 ABDOMEN/PELVIS WITH CONTRAST Radiology Report See Note (Normal) Comments: Exam Number: [id number] CT SCAN OF THE ABDOMEN AND PELVIS Multiple axial tomographic images were obtained from the dome of theliver down to the symphysis pubis following both oral and intrave nouscontrast administration. Coronal and sagittal reconstructions wereobtained as well. HISTORYThis is a 64-year-old male patient with history of stabbing pain inthe central portion of the epigastrium as well as l eft upper quadrantpain. FINDINGSComparison is made with the prior examination dated July 30, 2005. There is a minimal degree of atelectatic changes at the left base. Multiple well-defined hypodense n odules are seen scattered throughoutthe liver. These are unchanged from prior examination and most likelyrepresent hepatic cysts. These are unchanged. The spleen is notenlarged. No focal lesion is s een. The pancreas is of homogeneousdensity. No focal lesion is seen. The adrenal glands areunremarkable. There is good corticomedullary differentiation in bothkidneys. Small cysts are seen in both kidneys as well. There is noevidence of hydronephrosis. There is a mild degree of atheroscleroticchanges of the infrarenal abdominal aorta. There is also evidence ofatherosclerotic changes of the rig ht common iliac artery. No aneurysmis seen. There is no evidence of free air or free fluid within theabdomen or pelvis. There is no evidence of retroperitoneal or pelviclymphadenopathy. There is manuel dence of sigmoid diverticulosis withthickening of the wall of the sigmoid colon. A mild degree ofdiverticulitis should be ruled out. IMPRESSIONMultiple cysts seen throughout the liver. These are uncha nged. Thereis evidence of thickening of the wall of the sigmoid colon suggestinga mild degree of diverticulitis. There is no evidence of free fluidat this time. Reported By: FRANKO JULIEN 20-Ilj-83341:49 GALLBLADDER Radiology Report See Note (Normal) Comments: Exam Number: [id number] CLINICAL:Right upper quadrant pain. LIMITED ABDOMINAL ULTRASOUND TECHNIQUE:Multiple images of the right upper quadrant are submitted forinterpretation with a technologist maximo t. COMPARISON:CT abdomen dated 07/30/05 FINDINGS:Normal liver size, contour and echogenicity. Multiple hepatic cystsare again identified with the largest measuring up to 2.0 x 1.5 x2.2 cm in the right hepatic lobe. The largest cyst in the leftkidney measures 2.3 x 1.9 x 2.1 cm. Normal gallbladder size and contour, with no wall thickening,filling defects or pericholecystic fluid. Normal caliber of th e common bile duct, measuring 3.1 mm. Normalintrahepatic ducts with no intrahepatic biliary ductal dilatation. Normal pancreas without focal or diffuse enlargement, and there areno cysts or calcificati ons. Normal visualized pancreatic duct. Normal right kidney size, contour, and echogenicity, measuring 10.5cm in length. There is a small cortical cyst in the mid to lower pole of the rightkidney that measures approximately 1.4 x 1.2 x 1.2 cm. Normalintrarenal collecting system with no renal calculi or hydronephrosis. IMPRESSION:Multiple hepatic cysts again identified, measuring up to 2.2 cm andthe r ight hepatic lobe. No evidence of cholelithiasis or acute cholecystitis. 1.4- cm cortical cyst in the right kidney. Reported By: JENNY DAMON M.D. 82-Art-[id number]:44 Lipase ([id number]) Comments: PATIENT NOT FASTINGPERFORMED BY: [facility] [id number] [facility] [id number] Lipase, Serum 46 U/L (Normal) Range: 0-59 89-Pku-656374:44 C-REACT PROT HIGH SENS(hsCRP) Comments: PATIENT NOT FASTINGPERFORMED BY: [facility] [id number] [facility] [id number] ([id number]) C-Reactive Protein, Cardiac 2.96 mg/L (Normal) Range: 0.00-3.00 Comments: Relative Risk for Future Cardiovascular EventLow <1.00Average 1.00 - 3.00High >3.00 23-Rlx-512571:44 Amylase ([id number]) Comments: PATIENT NOT FASTINGPERFORMED BY: [facility] [id number] [facility] [id number] Amylase, Serum 44 U/L (Normal) Range: 31-124 81-Zqj-843714:44 CBC WITH MANUAL DIFF Comments: PATIENT NOT FASTINGPERFORMED BY: [facility] [id number] [facility] [id number] Information: [id number] ([id number]) Baso (Absolute) 0.1 {x10E3/uL} (Normal) Range: 0.0-0.2 Eos (Absolute) 0.3 {x10E3/uL} (Normal) Range: 0.0-0.4 Lymphs (Absolute) 1.5 {x10E3/uL} (Normal) Range: 0.7-4.5 Monocytes(Absolute) 0.6 {x10E3/uL} (Normal) Range: 0.1-1.0 Basos 1 % (Normal) Range: 0-3 Eos 4 % (Normal) Range: 0-7 Lymphs 19 % (Normal) Range: 14-46 Monocytes 7 % (Normal) Range: 4-13 Neutrophils 69 % (Normal) Range: 40-74 Neutrophils (Absolute) 5.6 {x10E3/uL} (Normal) Range: 1.8-7.8 MCHC 34.8 g/dL (Normal) Range: 32.0-36.0 Platelets 183 {x10E3/uL} (Normal) Range: 140-415 RDW 13.6 % (Normal) Range: 11.7-15.0 Hematocrit 44.8 % (Normal) Range: 36.0-50.0 MCH 32.3 pg (Normal) Range: 27.0-34.0 MCV 93 fL (Normal) Range: 80-98 Hemoglobin 15.6 g/dL (Normal) Range: 12.5-17.0 RBC 4.82 {x10E6/uL} (Normal) Range: 4.10-5.60 WBC 8.1 {x10E3/uL} (Normal) Range: 4.0-10.5 69-Veb-383252:44 METABOLIC PANEL, COMPREHENSIVE Comments: PATIENT NOT FASTINGPERFORMED BY: [facility] [id number] [facility] [id number] ([id number]) A/G Ratio 1.8 (Normal) Range: 1.1-2.5 Alkaline Phosphatase, S 105 [iU]/L (Normal) Range: 25-160 ALT (SGPT) 22 [iU]/L (Normal) Range: 0-55 AST (SGOT) 21 [iU]/L (Normal) Range: 0-40 Bilirubin, Total 0.6 mg/dL (Normal) Range: 0.1-1.2 Albumin, Serum 4.4 g/dL (Normal) Range: 3.6-4.8 Globulin, Total 2.4 g/dL (Normal) Range: 1.5-4.5 Protein, Total, Serum 6.8 g/dL (Normal) Range: 6.0-8.5 Calcium, Serum 8.9 mg/dL (Normal) Range: 8.6-10.2 Carbon Dioxide, Total 25 mmol/L (Normal) Range: 20-32 Chloride, Serum 104 mmol/L (Normal) Range: 97-108 Potassium, Serum 4.4 mmol/L (Normal) Range: 3.5-5.2 BUN/Creatinine Ratio 18 (Normal) Range: 8-27 eGFR >59 mL/min/1.73 (Normal) eGFR AfricanAmerican >59 mL/min/1.73 Comments: Note: Persistent reduction for 3 months or more in an eGFR<60 mL/min/1.73 m2 defines CKD. Patients with eGFR values>/=60 mL/min/1.73 m2 may also have CKD if evidence of persistentproteinuria is (Normal) present. Additional information may be found [email or web address]. Sodium, Serum 142 mmol/L (Normal) Range: 135-145 BUN 18 mg/dL (Normal) Range: 5-26 Creatinine, Serum 1.01 mg/dL (Normal) Range: 0.76-1.27 Glucose, Serum 75 mg/dL (Normal) Range: 65-99 53-Blm-744030:00 Anaerobic and Aerobic Culture Comments: Clinical Information: SRC:FM LEFT FOREARM PERFORMED BY: [facility] [id number] [facility] [id number] Aerobic Culture Final report (Normal) Anaerobic Culture Final report (Normal) Antimicrobial MIHEAD (Normal) Comments: S = Susceptible; I = Intermediate; R = Resistant P = Positive; N = Negative MICS are expressed in micrograms per mL Antibiotic RSLT#1 RSLT#2 Susceptibility RSLT#3 RSLT#4Amoxicillin/Clavulanic Acid RAmpicillin RCefepime SCeftriaxone SCefuroxime SCephalothin RCiprofloxacin S SClindamycin SErythromycin RGentamicin S SImipenem SLevofloxacin S SLinezolid SOxacillin RPenicillin RQuinup ristin/Dalfopristin STetracycline S STobramycin STrimethoprim/Sulfa S SVancomycin S Result 1 NANG72 (Normal) Comments: No anaerobic growth in 72 hours. Result 1 MRSA (Normal) Comments: Methicillin - resistant Staphylococcus aureusHeavy growthSusceptibility or resistance of staphylococci to oxacillin predictssusceptibility or resistance to (a) other rfup-zajufakrv-vzidggpeb icillins suc h as cloxacillin and dicloxacillin, (b) combinationsof a penicillin and a beta-lactamase inhibitor, and(c) anti-staphylococcal cephalosporins. Routine testing of otherpenicillins, beta-lactam/beta-lacta guerrero inhibitor combinations,cephems, and carbapenems is not advised by the CLSI Standards(I843-F73, 2005). Result 2 Enterobacter cloacae Comments: Heavy growth (Normal) 90-Xpr-26607:53 CHEST WITHOUT CONTRAST Radiology Report See Note (Normal) Comments: Exam Number: [id number] CLINICAL:Follow- up lung nodule. CT CHEST WITHOUT CONTRAST COMPARISON:Chest CT dated February 03, 2009 TECHNIQUE:High resolution transaxial imaging was performed without the administra tion of intravenous contrast material. FINDINGS: There is a stable 9-mm low attenuation lesion in the inferior right thyroid lobe. There has been no significant interval change in atelectasis and/or sca rring in the left lower lobe, lingula and right middle lobe. Scattered bullous changes in the lungs are stable. A 4-mm nodular density in the right lower lobe is unchanged (series 2 image 67). There are no new parenchymal nodules or infiltrates. Normal pleura without pleural thickening, a mass lesion or calcifications. There are no pleural effusions. Normal mediastinum and pulmonary shayan without l ymphadenopathy. Normal cardiac size without demonstrated pericardial fluid or thickening. There are no vascular calcifications of the coronary arteries. There are no valvular calcifications. Normal ma in pulmonary artery with normal right and left pulmonary arteries. Normal bilateral peripheral pulmonary arteries without vascular prominence. There is atherosclerotic tortuosity of the aortic arch and descending thoracic aorta without a demonstrated aneurysm. Normal thoracic esophagus. There is no lymphadenopathy of the axillary or supraclavicular lymph nodes. Innumerable cysts are identified through out the liver which appear unchanged, although they were inadvertently omitted from the prior report. These measure up to 2.4 cm in the right hepatic lobe (series 2 image 72). Normal visualized spleen, gallbladder, pancreas and adrenal glands. Mild degenerative changes of the spine are stable. Normal visualized chest wall structures. IMPRESSION:Stable 4-mm nodular density in the right lower lobe. N o new parenchymal nodules. Stable bullous changes in the lungs with atelectasis and/or scarring at the lung bases. Stable 9-mm right thyroid nodule. Innumerable hepatic cysts, unchanged. These were cris dvertently omitted from the previous report. Reported By: JENNY DAMON M.D. 91-Fjk-95052:51 THYROID (HP) Radiology Report See Note (Normal) Comments: Exam Number: [id number] CLINICAL:Goiter. ULTRASOUND THYROID COMPARISON:Thyroid ultrasound dated 02/24/09 FINDINGS:The right thyroid lobe is prominent in size measuring 5.8 x 1.8 x 1.9 cm. A hypoechoic s olid nodule is again identified in the lower pole of the right thyroid lobe that measures 1.7 x 0.8 x 1.6 cm. This is not significantly changed compared to the previous exam. Normal thyroid isthmus. T here is no perithyroidal pathology. IMPRESSION:Bilateral thyroid nodules, not significantly changed. Reported By: JENNY DAMON M.D. 3-Qyn-784090:15 THYROID Radiology Report See Note (Normal) Comments: Exam Number: [id number] CLINICAL:63-year-old male follow-up nodules seen on CT ULTRASOUND THYROID COMPARISON:CT from 02/03/2009. FINDINGS:Normal size, contour and echotexture of the right lobe of the thyr oid gland, measuring 5.3 x 2 .0 x 1.4 cm in length. There is 1.8 x 1.7 x 1 .0 cm nodule involving the lower pole of right thyroid gland. This nodule is complex. Normal size, contour and echotexture of the left lobe of the thyroid gland, measuring 5.1 x 2 .0 by 1.8 cm in length. There is a 0.7 x 0.5 x 2.4 cm nodule involving the mid pole. This nodule is partially cystic. Normal thyroid isthmus. This measures are .3 cm. There is no perithyroidal pathology. IMPRESSION:Nodules as mentioned above. Differential includes both benign as well as malignant entities. Correlation with clinical medicine thy roid study recommended. Reported By: RUBÉN OREILLY M.D. 32-Kmh-862160:25 CHEST W/WO CONTRAST Radiology Report See Note (Normal) Comments: Exam Number: [id number] CLINICAL:Cough. Abnormal chest x-ray. CT CHEST WITH AND WITHOUT CONTRAST COMPARISON:Chest x- ray dated January 31, 2009 TECHNIQUE:High resolution transaxial imaging was p erformed wit hout and with following the intravenous administration of 100 ml of Isovue 300 contrast material. Coronal and sagittal images were reconstructed. FINDINGS: There is a 1 cm low-attenuation lesion in the inferior right thyroid lobe (series 4, image 7). Scattered bullous changes are noted within the lungs. There is subsegmental atelectasis in the left lower lobe. Mild linear scarring is identified in t he lingula. There is a 4 mm subpleural nodular density in the right lower lobe (series 4 image 70). No other parenchymal nodules are seen. There is no focal consolidation.. Normal pleura without pleu ral thickening, a mass lesion or calcifications. There are no pleural effusions. Normal mediastinum and pulmonary shayan without lymphadenopathy. Normal cardiac size without demonstrated pericardial flui d or thickening. There are no vascular calcifications of the coronary arteries. There are no valvular calcifications. Normal main pulmonary artery with normal right and left pulmonary arteries. Normal bilateral peripheral pulmonary arteries without vascular prominence. There is no demonstrated intraluminal defect of the pulmonary arteries. Specifically, there is no demonstrated pulmonary embolus on this examination. The aorta is ectatic with the ascending aorta measuring up to 4 cm in diameter.. Normal thoracic esophagus. There is no lymphadenopathy of the axillary or supraclavicular lymph nodes. Normal visualized liver, spleen, gallbladder, pancreas and adrenal glands. There is a 1.1 cm cyst in the upper pole of the right kidney (series 4 image 107). A 1 cm cyst is identified in the mid left kidney (series 4 image 123). In the mid to upper pole of the left kidney, there is a 1.5-cm low-attenuation lesion which is not a simple cyst (series 4 image 119). There are mild degenerative changes of the spine. Normal visualized chest wall structures. There is no abnormal contrast enhancement. IMPRESSION:Subsegmental atelectasis in the left lower lobe. No parenchymal infiltrate. 4 mm subpleura l nodular density in the right lower lobe. This is nonspecific and may be related to an infectious or inflammatory process. No other parenchymal nodules are seen. Scattered bullous changes throughout the lungs. Bilateral renal cysts. 1.5-cm low-attenuation lesion in the upper pole of the left kidney which is not a simple cyst. Renal ultrasound may be useful for further evaluation, if clinically wa rranted. 1 cm low-attenuation nodule in the right thyroid lobe. Reported By: JENNY DAMON M.D. 9-Tql-544856:22 CHEST, PA AND LATERAL Radiology Report See Note (Normal) Comments: Exam Number: [id number] TWO VIEWS OF THE CHEST HISTORYThe patient is a 63-year-old man with a history of cough x3 weeks. There is a poor degree of inspiration. This is associated withcrowding of lung ma rkings and slight atelectasis located posteriorly. No acute infiltrate, area of consolidation, pleural effusion orvascular congestion is identified. There is a rectangular densityprojecting over the ri ght 6th anterior rib. This is most likelyrelated to calcification in costal cartilage. On the left, there is a6-mm density identified between the 5th and 6th anterior ribs. Thismay be a nipple shadow . PA view with nipple markers is recommended. IMPRESSION1. There is a small density in the left lung base which may representa nipple shadow. PA view with nipple markers is recommended.2. A triangu lar density is seen at the level of the right 6thanterior rib. This is likely to represent costal calcification. 3. If symptoms persist, a CT could be considered. Reported By: VICTORINO VEGA M.D. 20-Fxb-878675:20 Rapid Flu (90648 x 2) INFLUENZA IMMUNOASSY DIRECT OPTICAL OBSERV neg (Normal) Comments: negative :19 CBC HCT 43.5 % (Normal) Range: 40-54 HGB 14.9 g/dL (Normal) Range: 14.0-18.0 MCH 31.1 pg (Normal) Range: 27.0-32.0 MCHC 34.3 g/dL (Normal) Range: 32-36 MCV 90.7 fL (Normal) Range: 80-94 PLT 232 K/mm3 (Normal) Range: 150-450 RBC 4.80 {M/mm3} (Normal) Range: 4.6-6.2 RDW 13.4 % (Normal) Range: 11.6-14.6 WBC 5.3 K/mm3 (Normal) Range: 4.4-11.0 :19 COMP METABOLIC A/G 1.2 {RATIO} (Normal) Range: 0.9-2.4 ALB 3.8 g/dL (Normal) Range: 3.4-5.0 ALK P 92 U/L (Normal) Range: 50-136 ALT 37 [iU]/L (Normal) Range: 30-65 AST 22 U/L (Normal) Range: 15-37 BUN 21 mg/dL (Abnormal) Range: 7-18 BUN/CRE 21.0 {RATIO} (Abnormal) Range: 10-20 CA 8.2 mg/dL (Abnormal) Range: 8.5-10.1 CL 105 mmol/L (Normal) Range: 98-107 CO2 26.9 mmol/L (Normal) Range: 22.0-29.0 CREAT,SERUM 1.0 mg/dL (Normal) Range: 0.8-1.3 GAP 9 (Normal) Range: 5-15 GLOB 3.1 g/dL (Normal) Range: 2.3-3.5 GLU 81 mg/dL (Normal) Range: 70-110 K 4.0 mmol/L (Normal) Range: 3.5-5.1 NA 141 mmol/L (Normal) Range: 136-145 T BILI 0.56 mg/dL (Normal) Range: 0.00-1.00 T PROT 6.9 g/dL (Normal) Range: 6.4-8.2 :19 PFLIP CHOL 166 mg/dL (Normal) Comments: <200 mg/dL Desirable 200-240 mg/dL Borderline >240 mg/dL High Risk HDL 36 mg/dL (Normal) Comments: Reference Range HDL <40 mg/dL Low HDL Cholesterol HDL >or= 60 mg/dL High HDL Cholesterol LDL 114 mg/dL (Normal) Range: 0-130 TRIG 79 mg/dL (Normal) Comments: Serum Triglycerides Reference Interval Normal <150 mg/dL Borderline high 150 - 199 mg/dL High 200 - 499 mg/dL Very High > or = 500 mg/dL VLDL 16 mg/dL (Normal) Range: 5-40 :19 ROUTINE UA BILIRUBIN URINE SeeNote (Normal) Comments: Result: NEGATIVE CLARITY CLEAR (Normal) COLOR YELLOW (Normal) GLUCOSE, UR SeeNote (Normal) Comments: Result: NEGATIVE KETONE UR SeeNote mg/dL (Normal) Comments: Result: NEGATIVE LEUK ESTERASE SeeNote (Normal) Comments: Result: NEGATIVE NITRITE UR SeeNote (Normal) Comments: Result: NEGATIVE OCCULT BLOOD-UR 1+ (Abnormal) pH UR 5.0 (Normal) Range: 5.0-8.0 PROT DIPSTX SeeNote (Normal) Comments: Result: NEGATIVE SP.GR. DIPSTX >=1.030 (Normal) Range: 1.002-1.030 UROBILI 0.2 EU/dl (Normal) Range: 0.2 - 1.0 77-Bpw-01656:19 TSH 1.04 {uIU/mL} (Normal) Range: 0.34-4.82 Plan of Care Name Dates Details Instructions Hypertensive heart disease without heart failure : Follow up in 4 months Indication: Hypertensive heart disease without heart failure Hypertensive heart disease without heart failure : Continue Current Prescription(s) Indication: Hypertensive heart disease without heart failure CAD (coronary artery disease) : Reviewed Heat Transfer Technician Letter Indication: CAD (coronary artery disease) Hypertensive heart disease without heart failure : HTN/CAD Red Flags Indication: Hypertensive heart disease without heart failure Hyperlipidemia : Cholesterol mgmt Indication: Hyperlipidemia Non-smoker : Eprescribed prescriptions (G8553) Indication: Non-smoker Hematuria, microscopic : Reviewed Diagnostic Tests Indication: Hematuria, microscopic BMI 27.0-27.9,adult : Eprescribed prescriptions (G8553) Indication: BMI 27.0-27.9,adult Hyperlipidemia : Cholesterol mgmt Indication: Hyperlipidemia Hyperlipidemia : Reviewed Lab Indication: Hyperlipidemia Hypertensive heart disease without heart failure : Follow up in 4 months Indication: Hypertensive heart disease without heart failure CAD (coronary artery disease) : Continue Current Prescription(s) Indication: CAD (coronary artery disease) CAD (coronary artery disease) : Reviewed Heat Transfer Technician Letter Indication: CAD (coronary artery disease) Hypertensive heart disease without heart failure : Diet, Exercise, and Wt loss Indication: Hypertensive heart disease without heart failure Hypertensive heart disease without heart failure : HTN/CAD Red Flags Indication: Hypertensive heart disease without heart failure Controlled diabetes mellitus : Reviewed Lab Indication: Controlled diabetes mellitus Hyperlipidemia : Continue Current Prescription(s) Indication: Hyperlipidemia Controlled diabetes mellitus : Follow up in 6 months Indication: Controlled diabetes mellitus Hyperlipidemia : Cholesterol mgmt Indication: Hyperlipidemia Hypertensive heart disease without heart failure : HTN/CAD Red Flags Indication: Hypertensive heart disease without heart failure CAD (coronary artery disease) : Continue Current Prescription(s) Indication: CAD (coronary artery disease) CAD (coronary artery disease) : Reviewed Heat Transfer Technician Letter Indication: CAD (coronary artery disease) Controlled diabetes mellitus : *Diabetes Education Indication: Controlled diabetes mellitus Current nonsmoker : Eprescribed prescriptions (G8553) Indication: Current nonsmoker Annual Medicare Phyiscal WITHOUT abnormal findings (Renamed from Encounter for general adult medical examination without abnormal findings) : advance planning information Indication: Annual Medicare Phyiscal WITHOUT abnormal findings (Renamed from Encounter for general adult medical examination without abnormal findings) Annual Medicare Phyiscal WITHOUT abnormal findings (Renamed from Encounter for general adult medical examination without abnormal findings) : elderly packet given Indication: Annual Medicare Phyiscal WITHOUT abnormal findings (Renamed from Encounter for general adult medical examination without abnormal findings) Annual Medicare Phyiscal WITHOUT abnormal findings (Renamed from Encounter for general adult medical examination without abnormal findings) : fall reduction handout Indication: Annual Medicare Phyiscal WITHOUT abnormal findings (Renamed from Encounter for general adult medical examination without abnormal findings) Encounter for screening for malignant neoplasm of colon (Renamed from Special screening for malignant neoplasms, colon) : *Colon Cancer Screening Indication: Encounter for screening for malignant neoplasm of colon (Renamed from Special screening for malignant neoplasms, colon) Candidiasis : Continue Current Prescription(s) Indication: Candidiasis Cough : Common Cold *: upper respiratory infection Indication: Cough SOB (shortness of breath) : Follow up if no improvement or if symptoms worsen Indication: SOB (shortness of breath) BMI 28.0-28.9,adult : Eprescribed prescriptions (G8553) Indication: BMI 28.0-28.9,adult Current nonsmoker : Follow up if no improvement or if symptoms worsen Indication: Current nonsmoker Cough : *Antibiotic Usage Education - Male Indication: Cough Cough : *URI Treatment Indication: Cough Cough : *URI Symptoms Indication: Cough BMI 28.0-28.9,adult : Eprescribed prescriptions (G8553) Indication: BMI 28.0-28.9,adult Cough : Follow up if no improvement or if symptoms worsen Indication: Cough Upper respiratory infection : Cough: upper respiratory infection Indication: Upper respiratory infection BMI 28.0-28.9,adult : Eprescribed prescriptions (G8553) Indication: BMI 28.0-28.9,adult CAD (coronary artery disease) : Reviewed Diagnostic Tests Indication: CAD (coronary artery disease) Controlled diabetes mellitus : Reviewed Diagnostic Tests Indication: Controlled diabetes mellitus Hyperlipidemia : Reviewed Lab Indication: Hyperlipidemia Hyperlipidemia : Cholesterol mgmt Indication: Hyperlipidemia Controlled diabetes mellitus : *Diabetes Education Indication: Controlled diabetes mellitus Controlled diabetes mellitus : Follow up in 4 months Indication: Controlled diabetes mellitus CAD (coronary artery disease) : Reviewed Heat Transfer Technician Letter Indication: CAD (coronary artery disease) CAD (coronary artery disease) : Reviewed Lab Indication: CAD (coronary artery disease) Hypertensive heart disease without heart failure : HTN/CAD Red Flags Indication: Hypertensive heart disease without heart failure Controlled diabetes mellitus : Diabetes and Exercise: Preventing Low Blood Sugar: blood sugar Indication: Controlled diabetes mellitus Controlled diabetes mellitus : Follow up in 3 months Indication: Controlled diabetes mellitus CAD (coronary artery disease) : Continue Current Prescription(s) Indication: CAD (coronary artery disease) CAD (coronary artery disease) : Reviewed Heat Transfer Technician Letter Indication: CAD (coronary artery disease) Hyperlipidemia : Cholesterol mgmt Indication: Hyperlipidemia Hypertension, essential, benign : HTN/CAD Red Flags Indication: Hypertension, essential, benign Controlled diabetes mellitus : Eprescribed prescriptions (G8553) Indication: Controlled diabetes mellitus Controlled diabetes mellitus : Diabetes and Exercise: Preventing Low Blood Sugar: blood sugar Indication: Controlled diabetes mellitus Controlled diabetes mellitus : Follow up in 3 months Indication: Controlled diabetes mellitus Controlled diabetes mellitus : Diet, Exercise, and Wt loss Indication: Controlled diabetes mellitus Controlled diabetes mellitus : *Diabetes Education Indication: Controlled diabetes mellitus Hyperlipidemia : Cholesterol mgmt Indication: Hyperlipidemia Hyperlipidemia : HTN/CAD Red Flags Indication: Hyperlipidemia Hypertension, essential, benign : HTN/CAD Red Flags Indication: Hypertension, essential, benign CAD (coronary artery disease) : Eprescribed prescriptions (G8553) Indication: CAD (coronary artery disease) Hyperlipidemia : Follow up in 3 months Indication: Hyperlipidemia Hypertension, essential, benign : Reviewed Lab Indication: Hypertension, essential, benign Hyperlipidemia : Cholesterol mgmt Indication: Hyperlipidemia CAD (coronary artery disease) : Reviewed Heat Transfer Technician Letter Indication: CAD (coronary artery disease) Hypertension, essential, benign : HTN/CAD Red Flags Indication: Hypertension, essential, benign Hypertension, essential, benign : Eprescribed prescriptions (G8553) Indication: Hypertension, essential, benign Hypertension, essential, benign : High Blood Pressure (Essential Hypertension) *: blood Indication: Hypertension, essential, benign Smoker : Follow up after consult Indication: Smoker Accelerated essential hypertension : Follow up - Make appt after diagnostic tests Indication: Accelerated essential hypertension Accelerated essential hypertension : HTN/CAD Red Flags Indication: Accelerated essential hypertension Accelerated essential hypertension : HTN/CAD Red Flags Indication: Accelerated essential hypertension Hypertension, essential, benign : Follow up in 6 months Indication: Hypertension, essential, benign Encounter for Medicare annual wellness exam : *Colon Cancer Screening Indication: Encounter for Medicare annual wellness exam Encounter for Medicare annual wellness exam : fall reduction handout Indication: Encounter for Medicare annual wellness exam Encounter for Medicare annual wellness exam : elderly packet given Indication: Encounter for Medicare annual wellness exam Encounter for Medicare annual wellness exam : advance planning information Indication: Encounter for Medicare annual wellness exam Hypertension, essential, benign : HTN/CAD Red Flags Indication: Hypertension, essential, benign Nasal congestion : Follow up if no improvement or if symptoms worsen Indication: Nasal congestion Bronchitis : *URI Treatment Indication: Bronchitis Bronchitis : *URI Symptoms Indication: Bronchitis Hypertension, essential, benign : Follow up in 6 months Indication: Hypertension, essential, benign Hypertension, essential, benign : Reviewed Lab Indication: Hypertension, essential, benign Hypertension, essential, benign : HTN/CAD Red Flags Indication: Hypertension, essential, benign Che infection of mouth : Follow up if no improvement or if symptoms worsen Indication: Che infection of mouth Hypertension, essential, benign : Follow up in 6 months Indication: Hypertension, essential, benign Hypertension, essential, benign : HTN/CAD Red Flags Indication: Hypertension, essential, benign Hypertension, essential, benign : HTN/CAD Red Flags Indication: Hypertension, essential, benign Asthma : Asthma: asthma Indication: Asthma Encounter for Medicare annual wellness exam : advance planning information Indication: Encounter for Medicare annual wellness exam Anxiety : Anxiety: emotional health Indication: Anxiety Hypertension, essential, benign : Follow up in 6 months Indication: Hypertension, essential, benign Hypertension, essential, benign : HTN/CAD Red Flags Indication: Hypertension, essential, benign Hypertension, essential, benign : Diet, Exercise, and Wt loss Indication: Hypertension, essential, benign Need for prophylactic vaccination and inoculation against other specified disease : Shingles Vaccine Education 2005 Indication: Need for prophylactic vaccination and inoculation against other specified disease Anxiety : Continue Current Prescription(s) Indication: Anxiety Hypertension, essential, benign : HTN/CAD Red Flags Indication: Hypertension, essential, benign Diverticulitis : Diverticulosis Indication: Diverticulitis Folliculitis : Antibiotic Usage Education - Male Indication: Folliculitis Abnormal CXR : Colon Cancer Screening Indication: Abnormal CXR Thyroid nodule : FOLLOW UP IN 2 WEEKS Indication: Thyroid nodule Acute sinusitis, unspecified : *URI Treatment Indication: Acute sinusitis, unspecified Acute sinusitis, unspecified : URI Symptoms Indication: Acute sinusitis, unspecified Acute sinusitis, unspecified : Antibiotic Usage Education - Male Indication: Acute sinusitis, unspecified Other specified viral infection, in conditions classified elsewhere and of unspecified site : *URI Treatment Indication: Other specified viral infection, in conditions classified elsewhere and of unspecified site Other specified viral infection, in conditions classified elsewhere and of unspecified site : *URI Symptoms Indication: Other specified viral infection, in conditions classified elsewhere and of unspecified site Other specified viral infection, in conditions classified elsewhere and of unspecified site : *URI Treatment Indication: Other specified viral infection, in conditions classified elsewhere and of unspecified site Reviewed Lab HTN/CAD Red Flags Planned Observations LIPOPROTEIN, BLD, BY NMR ([id number])Indication: Hyperlipidemia On: :38 Request MICROALBUMIN: CREATININE RATIO (04473) AND (37939)Indication: Hypertensive heart disease without heart failure On: :38 Request METABOLIC PANEL, COMPREHENSIVE (52145)Indication: CAD (coronary artery disease) On: :38 Request CBC W/AUTO DIFF WBC (26906)Indication: CAD (coronary artery disease) On: :38 Request VITAMIN B-12 (CYANOCOBALAMIN) (22743)Indication: Vitamin B12 deficiency On: :38 Request TSH (43967)Indication: Thyroid nodule On: :37 Request T4, FREE (THYROXINE) (47458)Indication: Thyroid nodule On: :37 Request T3, FREE (TRIDOTHYRONINE) (09415)Indication: Thyroid nodule On: 6-Hui-220627:37 Request HEPATIC FUNCTION PANEL (60000)Indication: Hyperlipidemia On: 82-Spu-102702:51 Request LIPOPROTEIN, BLD, BY NMR (30349)Indication: Hyperlipidemia On: 38-Hoc-099142:51 Request VITAMIN B-12 (CYANOCOBALAMIN) (42673)Indication: Vitamin B12 deficiency On: 55-Vpf-328625:08 Request Rapid Strep Test, Office (39335)Indication: Body aches On: 7-Cwl-396367:10 Request Rapid Flu (82959 x 2)Indication: Body aches On: 4-Ous-731361:10 Request URINALYSIS, W/ MICRO ([id number])Indication: Hypertension, essential, benign On: :31 Request CBC W/AUTO DIFF WBC (35355)Indication: Hypertension, essential, benign On: :31 Request CBC with auto diff (92130)Indication: Controlled diabetes mellitus On: : Request MICROALBUMIN: CREATININE RATIO (62947) AND (16701)Indication: Controlled diabetes mellitus On: : Request METABOLIC PANEL, COMPREHENSIVE (79827)Indication: Controlled diabetes mellitus On: : Request LIPID PANEL (80215)Indication: Controlled diabetes mellitus On: : Request HgA1C , Office (73780)Indication: Controlled diabetes mellitus On: : Request TSH (07001)Indication: Anxiety On: : Request URINALYSIS, W/ MICRO (84363)Indication: Hypertension, essential, benign On: Request MICROALBUMIN: CREATININE RATIO (97653) AND (00432)Indication: Hypertension, essential, benign On: Request METABOLIC PANEL, COMPREHENSIVE (25733)Indication: Hypertension, essential, benign On: Request LIPID PANEL ([id number])Indication: Hypertension, essential, benign On: 53 Request CBC WITH MANUAL DIFF (40268)Indication: Hypertension, essential, benign On: Request T4, FREE (THYROXINE) ([id number])Indication: Thyroid nodule On: Request T3, FREE (TRIDOTHYRONINE) (34750)Indication: Thyroid nodule On: Request TSH (51588)Indication: Thyroid nodule On: Request URINALYSIS, W/ MICRO (84721)Indication: Hypertension, essential, benign On: Request MICROALBUMIN: CREATININE RATIO (52236) AND (79046)Indication: Hypertension, essential, benign On: Request METABOLIC PANEL, COMPREHENSIVE (63321)Indication: Hypertension, essential, benign On: : Request LIPID PANEL (45557)Indication: Hypertension, essential, benign On: Request CBC WITH MANUAL DIFF (03157)Indication: Hypertension, essential, benign On: 04-May-20109:27 Request BACT CULTURE ANY-ANAEROBIC (32993)Indication: Folliculitis On: 3-Gxw-143246:23 Request EDELMIRA CULTURE-OTHER ([id number])Indication: Folliculitis On: 5-Ycx-309530:23 Request Planned Encounters Medical; [facility] PHY/GEN MED - On: 04-Dec-2018 9:00 [facility] Catherine Madrigal DO, DO, Kathleen Planned Procedures THYROID ULTRASOUND ([id number])By: On: 28-Aug-2018 Intent Catherine Madrigal DO, DO, Kathleen Flu Vaccine (Quadrivalent) On: 12-Jun-2018 Intent [id number]: Keke Mike Comments: Lot #[id number]/30/[id number]-L dltd, IMDose prefilled syringegiven by:ESTHER Boggs reviewed and ABN signed B 12 Injection, 1000 mcg On: 17-Apr-2018 Intent (J3420)By: Catherine Madrigal DO Comments: 1 ml given im lt arm lot [id number] exp 05/14 Catherine Madrigal DO B 12 Injection, 1000 mcg On: 20-Feb-2018 Intent (J3420)By: Visit, Nurse Comments: [id number] exp 11/11 B 12 Injection, 1000 mcg On: 23-Jan-2018 Intent (J3420)By: Catherine Madrigal DO Comments: Vitamin b12 1000mcg injection lot:exp:L DELT IMpt tolerated well 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,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 Catherine Madrigal DO B 12 Injection, 1000 mcg On: 16-Jan-2018 Intent (J3420)By: Florentino Amos Comments: Vitamin b12 1000mcg injection lot:[id number]:05/2019L DELT IMpt tolerated well 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,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 B 12 Injection, 1000 mcg On: 09-Jan-2018 Intent (J3420)By: Catherine Madrigal DO Comments: Vitamin b12 1000mcg injection lot:[id number]:05/2019L DELT IMpt tolerated well 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,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 Catherine Madrigal DO B 12 Injection, 1000 mcg On: 26-Dec-2017 Intent (J3420)By: Catherine Madrigal DO Comments: Vitamin b12 1000mcg injection lot:[id number]:05/2019L DELT IMpt tolerated well BRUNILDA CHOE DO, Kathleen [place] ([id number])By: Jose On: 19-Dec-2017 Catherine Florence DO, DO, Kathleen Comments: [id number]/0.65mlin [id number]/L arm, IM -- dltdMLONGmlong ELECTROCARDIOGRAM, COMPLETE (ECG) On: 19-Dec-2017 Intent (26095)By: Catherine Madrigal DO Comments: nsr no acute chg - Catherine Madrigal DO B 12 Injection, 1000 mcg On: 19-Dec-2017 Intent (J3420)By: Catherine Madrigal DO Comments: lot:[id number]:rte:IM left deltoid dose:1ml given by:BRUNILDA Pedro lpn, DO, Kathleen Wax Currettes ([id number])By: Maggie On: 11-Oct-2016 Intent BRUNILDA Bijal Ear Irrigation (16029)By: Maggie On: 11-Oct-2016 Intent Bijal WORLEY Comments: right ear irrigated with watertolerated well-- used currrette to revomve wax by dr madrigal and denisse butts noted internallymoderate amount light yellow wax removed with some blood residuewax currette used by Denisse Ann CNP Wax Currettes (06452)By: Maggie On: 17-Jul-2016 Intent BRUNILDA, Bijal Ear Irrigation (29033)By: Jose On: 17-Jul-2016 Intent Catherine APARICIO DO, Kathleen Comments: Amount/color removed cerumen:large amt, blackish brown from both earsOUtcome:clearUsed wax curettes:yes and tweezersEar Irrigation done by:Randy ELECTROCARDIOGRAM, COMPLETE (ECG) On: 01-Jun-2016 Intent ([id number])By: Suzanne Root CNP Ultrasound - ThyroidBy: Jose On: 26-Sep-2015 Catherine Florence DO, DO, Kathleen Flu Vaccine (Quadrivalent) On: 23-Jun-2015 Intent 36144Pl: Catherine Madrigal DO, DO, Kathleen Radiology - ChestBy: Ivett DAVIS, On: 07-Dec-2014 Intent Suzanne Duncan ELECTROCARDIOGRAM, COMPLETE (ECG) On: 07-Dec-2014 Intent (39118)By: Ivett DAVIS, Suzanne Duncan Cartoid DopplerBy: Jose APARICIO, On: 25-May-2014 Intent Catherine Mathis DO Renal Duplex ScanBy: Jose APARICIO, On: 25-May-2014 Intent Catherine Mathis DO EKG (90651)By: Jose APARICIO, On: 25-May-2014 Intent Catherine Mathis DO Comments: nsr no acute chg some mild LVH suggested ADMINISTRATION OF PNEUMOCOCCAL On: 04-Nov-2013 Intent VACCINE (G0009)By: Catherine Madrigal DO, DO, Kathleen PNEUM VAC ADLT/IMUMNOSPR, On: 04-Nov-2013 Intent SBC/INTRM ([id number])By: Jose APARICIO, Comments: Lot:[id number]:10/11/14Dose:0.5mgRoute:imSite:l armGiven By:GURDEEP signed Catherine Mathis DO Spirometry (97369)By: Jose APARICIO, On: 04-Nov-2013 Intent Catherine Mathis DO Comments: great curve and technique -- asx Radiology - Chest- PA and LatBy: On: 04-Nov-2013 Intent Catherine Madrigal DO, DO, Kathleen EKG (35649)By: Jose APARICIO, On: 04-Nov-2013 Intent Catherine Mathis DO Comments: nsr no acute chg EKG (67541)By: Jose APARICIO, On: 03-Nov-2012 Intent Catherine Mathis DO Comments: nsr no acute ischemic changes Aerosol Treatment ([id number])By: On: 03-Nov-2012 Intent Catherine Madrigal DO, DO, Kathleen Eprescribed prescriptions On: 03-Nov-2012 Intent (G8553)By: Catherine Madrigal DO, DO, Kathleen Spirometry (29590)By: Jose APARICIO On: 08-May-2012 Intent Catherine Mathis DO Comments: mild obstruciton -- pt asx didnt want inhlaer Ultrasound - ThyroidBy: Jose On: 08-May-2012 Intent Catherine APARICIO DO, Kathleen Radiology - Chest- PA and LatBy: On: 08-May-2012 Intent Catherine Madrigal DO, DO, Kathleen FLU VAC, SPLIT, >3 YEARS, On: 24-Apr-2012 Intent INTRAMUSC (74291)By: Jose APARICIO, Comments: Lot #[id number]/30/13Site-right deltoidgiven by: BRUNILDA Peters DO, Kathleen ADMINISTRATION OF INFLUENZA VIRUS On: 24-Apr-2012 Intent VACCINE (G0008)By: Catherine Madrigal DO, DO, Kathleen Eprescribed prescriptions On: 24-Apr-2012 Intent (G8553)By: Denisse Alvarado LPN EKG ([id number])By: Jose APARICIO, On: 03-Oct-2011 Intent Catherine Mathis DO Comments: nsr no acute chg Eprescribed prescriptions On: 03-Oct-2011 Intent (G8553)By: Catherine Madrigal DO, DO, Kathleen IMMUNIZ ADMNIN, 1 VAC, SNGL/COMBO On: 21-Aug-2010 Intent (47235)By: Fidelina Waters LPN Comments: Lot #[id number]-LarmDose 0.65mlgiven by:Khushi [place] ([id number])By: Jt On: 21-Aug-2010 Intent Fidelina WORLEY TDAP VACCINE >7 IM (43273)By: On: 16-May-2010 Intent Fidelina Waters LPN Comments: Lot #[id number]/17/12Site-L armDose0.5mlgiven by:BRUNILDA KEY Ultrasound - ThyroidBy: Jose On: 04-May-2010 Intent DO, Catherine Mathis DO Comments: please compare to prev us roughly a yr ago EKG (81761)By: Jose APARICIO, On: 04-May-2010 Intent Catherine Mathis DO OtherBy: Catherine Madrigal DO On: 17-Oct-2009 Intent Catherine Madrigal DO Comments: hida scan with cck CT - Abdomen & Pelvis (IV On: 13-Sep-2009 Intent Contrast Needed)By: Catherine Madrigal DO, DO, Kathleen Ultrasound - GallbladderBy: On: 13-Sep-2009 Intent Catherine Madrigal DO, DO, Kathleen Ultrasound - ThyroidBy: Ivett On: 24-May-[address] - ChestBy: Suzanne Root CNP On: 24-May-2009 Intent Comments: follow up from abnormal CT of 02-03-09 CT - ChestBy: Suzanne Root CNP On: 08-Feb-2009 Intent Comments: To be done May 04 Ultrasound - ThyroidBy: Ivett On: 08-Feb-2009 Intent Suzanne DAVIS PFT - CompleteBy: Suzanne Root CNP On: 08-Feb-2009 Intent E Spirometry (49005)By: Ivett DAVIS On: 08-Feb-2009 Intent Suzanne Duncan Comments: done-awModerately severe restriction Inhaler Demo (20959)By: Ivett On: 08-Feb-2009 Intent Suzanne DAVIS Comments: doneAW Pulse Oximetry (54941)By: Ivett On: 08-Feb-2009 Intent Suzanne DAVIS Comments: 94% Solu- Medrol Injection, 125mg On: 08-Feb-2009 Intent (J2930)By: Suzanne Root CNP Comments: Lot #[id number]-left [id number]/2mlgiven by Neville Meier LPN CT - ChestBy: Suzanne Root CNP On: 31-Jan-2009 Intent Radiology - ChestBy: Ivett DAVIS On: 31-Jan-2009 Intent Suzanne Duncan Comments: LEFT PA with NIPPLE MARKERS Aerosol Treatment (11602)By: On: 10-Jan-2009 Intent Suzanne Root CNP Spirometry (69147)By: Jose APARICIO, On: 21-Oct-2006 Intent Catherine Mathis DO Comments: NORMAL SPIROMETRY EKG (10985)By: Jose APARICIO, On: 21-Oct-2006 Intent Catherine Mathis DO Comments: NSR NO ACUTE ISCHEMIC CHANGES Planned Medications Vitamin B-12 1000 MCG/ML Injection Solution Ordered: 19-Dec-2017 Pending Catherine Madrigal DO, DO, Kathleen Vitamin B-12 1000 MCG/ML Injection Solution Ordered: 26-Dec-2017 Pending Catherine Madrigal DO, DO, Kathleen Vitamin B-12 1000 MCG/ML Injection Solution Ordered: 09-Jan-2018 Pending Catherine Madrigal DO, DO, Catherine Vitamin B-12 1000 MCG/ML Injection Solution Ordered: 16-Jan-2018 Pending Florentino Amos Vitamin B-12 1000 MCG/ML Injection Solution Ordered: 23-Jan-2018 Pending Catherine Madrigal DO, DO, Kathleen Vitamin B-12 1000 MCG/ML Injection Solution Ordered: 20-Feb-2018 Pending Nurse Dong Vitamin B-12 1000 MCG/ML Injection Solution Ordered: 17-Apr-2018 Pending Catherine Madrigal DO, DO, Kathleen Instructions Name Dates Details Non-smoker : How to access health information online Indication: Non-smoker Non-smoker : How to access health information online - Detail Indication: Non-smoker Non-smoker : Patient Instructions Indication: Non-smoker BMI 27.0-27.9,adult : How to access health information online Indication: BMI 27.0-27.9,adult BMI 27.0-27.9,adult : How to access health information online Indication: BMI 27.0-27.9,adult BMI 27.0-27.9,adult : How to access health information online - Detail Indication: BMI 27.0-27.9,adult BMI 27.0-27.9,adult : Patient Instructions Indication: BMI 27.0-27.9,adult Smoker : How to access health information online Indication: Smoker Smoker : How to access health information online - Detail Indication: Smoker Smoker : Patient Instructions Indication: Smoker Current nonsmoker : How to access health information online Indication: Current nonsmoker Current nonsmoker : How to access health information online - Detail Indication: Current nonsmoker Current nonsmoker : Patient Instructions Indication: Current nonsmoker Current nonsmoker : How to access health information online Indication: Current nonsmoker Current nonsmoker : How to access health information online - Detail Indication: Current nonsmoker Current nonsmoker : Patient Instructions Indication: Current nonsmoker Current nonsmoker : How to access health information online Indication: Current nonsmoker Current nonsmoker : How to access health information online - Detail Indication: Current nonsmoker Current nonsmoker : Patient Instructions Indication: Current nonsmoker BMI 28.0-28.9,adult : How to access health information online Indication: BMI 28.0-28.9,adult BMI 28.0-28.9,adult : How to access health information online - Detail Indication: BMI 28.0-28.9,adult Cough : Patient Instructions Indication: Cough BMI 28.0-28.9,adult : How to access health information online Indication: BMI 28.0-28.9,adult BMI 28.0-28.9,adult : How to access health information online - Detail Indication: BMI 28.0-28.9,adult BMI 28.0-28.9,adult : Patient Instructions Indication: BMI 28.0-28.9,adult Current nonsmoker : How to access health information online Indication: Current nonsmoker Current nonsmoker : How to access health information online - Detail Indication: Current nonsmoker Cough : Patient Instructions Indication: Cough BMI 28.0-28.9,adult : How to access health information online Indication: BMI 28.0-28.9,adult BMI 28.0-28.9,adult : How to access health information online - Detail Indication: BMI 28.0-28.9,adult BMI 28.0-28.9,adult : Patient Instructions Indication: BMI 28.0-28.9,adult Controlled diabetes mellitus : How to access health information online Indication: Controlled diabetes mellitus Controlled diabetes mellitus : How to access health information online - Detail Indication: Controlled diabetes mellitus Controlled diabetes mellitus : Patient Instructions Indication: Controlled diabetes mellitus CAD (coronary artery disease) : How to access health information online Indication: CAD (coronary artery disease) CAD (coronary artery disease) : How to access health information online - Detail Indication: CAD (coronary artery disease) CAD (coronary artery disease) : Patient Instructions Indication: CAD (coronary artery disease) Hypertension, essential, benign : How to access health information online Indication: Hypertension, essential, benign Hypertension, essential, benign : How to access health information online - Detail Indication: Hypertension, essential, benign Hypertension, essential, benign : Patient Instructions Indication: Hypertension, essential, benign Anxiety : How to access health information online - Detail Indication: Anxiety Anxiety : Patient Instructions Indication: Anxiety Abnormal lung sounds : Patient Instructions Indication: Abnormal lung sounds Asthma : Patient Instructions Indication: Asthma Encounter for Medicare annual wellness exam : Patient Instructionsset up medcial visit in 2 weeks adn come fasting bring bp diaries - Indication: Encounter for Medicare annual wellness exam Anxiety : Patient Instructions Indication: Anxiety Encounters Office Visit On: 28-Aug-2018 9:26 Encounter Reason: Follow up for chronic medical issues - The patient feels well with minor complaints, has good energy level and is sleeping well. Patient has been compliant with instructions. Current medication use: no End: 28-Aug-2018 11:09 side effects and compliant with dosing regimen. Patient sleeps 8 hours per night. Nutrition: balanced diet and supplemental vitamins. The medical issues the patient is following up for include cardiac i ssues and high cholesterol. Note for Follow up for chronic medical issues: bp up today -- ck at home about [place] and up and down -- no stress , sleeping well no painEncounter Diagnosis: BMI 27.0-27.9,adult, Non-smoker, Hypertensive heart disease without heart failure, Vitamin B12 deficiency, Hyperlipidemia, CAD (coronary artery disease), Thyroid nodule [facility] Office Visit On: 12-Jun-2018 10:45 Encounter Reason: Follow up tests - Diagnostic tests include other (CT of abdomen and renal u/s). Date: (06/11/18 imaging). Current symptoms include other (blood in urine per urologist).Encounter Diagnosis: End: 12-Jun-2018 11:54 Need for prophylactic vaccination and inoculation against influenza (Renamed from Need for immunization against influenza), BMI 27.0-27.9,adult, Non-smoker, Hematuria, microscopic, Renal mass, left [facility] Office Visit On: 25-Apr-2018 14:31 Encounter Reason: Follow up tests - Date: (04/17/18 labs).Encounter Diagnosis: BMI 27.0-27.9,adult, Smoker, Hyperlipidemia, CAD (coronary artery disease) End: 25-Apr-2018 14:52 [facility] Office Visit On: 17-Apr-2018 10:06 Encounter Reason: Follow up for chronic medical issues - The patient feels well with minor complaints, has good energy level and is sleeping well. Patient has been compliant with instructions. Current medication use: no End: 17-Apr-2018 12:16 side effects and compliant with dosing regimen. Patient sleeps 8 hours per night. Nutrition: balanced diet and no supplemental vitamins & iron. The medical issues the patient is following up for inc rosie All identified problems below, high blood pressure and high cholesterol. blood pressure range : and weight :.Encounter Diagnosis: BMI 27.0-27.9,adult, Current nonsmoker, Vitamin B12 deficiency, CAD (coronary artery disease), Hyperlipidemia, Hypertensive heart disease without heart failure, Anxiety [facility] Nurse Visit On: 20-Feb-2018 13:40 Encounter Reason: Injections - The medication the patient is here to receive is vitamin B12 IM.Encounter Diagnosis: Vitamin B12 deficiency End: 20-Feb-2018 14:10 [facility] Office Visit On: 23-Jan-2018 9:27 Encounter Reason: Injections - The medication the patient is here to receive is vitamin B12 IM.Encounter Diagnosis: Vitamin B12 deficiency End: 23-Jan-2018 10:52 [facility] Office Visit On: 16-Jan-2018 13:44 Encounter Reason: Injections - The medication the patient is here to receive is vitamin B12 IM.Encounter Diagnosis: Vitamin B12 deficiency End: 16-Jan-2018 14:09 [facility] Office Visit On: 09-Jan-2018 9:36 Encounter Reason: Injections - The medication the patient is here to receive is vitamin B12 IM.Encounter Diagnosis: Vitamin B12 deficiency End: 09-Jan-2018 11:50 [facility] Office Visit On: 26-Dec-2017 8:52 Encounter Reason: Injections - The medication the patient is here to receive is vitamin B12 IM.Encounter Diagnosis: Vitamin B12 deficiency End: 26-Dec-2017 9:59 [facility] Office Visit On: 19-Dec-2017 10:12 Encounter Reason: Follow up for chronic medical issues - The patient feels well with minor complaints, has good energy level and is sleeping well. Patient has been compliant with instructions. Current medication use: no End: 19-Dec-2017 12:23 side effects and compliant with dosing regimen. Patient sleeps 8 hours per night. Nutrition: balanced diet and no supplemental vitamins & iron. The medical issues the patient is following up for inc alyssae All identified problems below, blood sugar issues, high blood pressure and high cholesterol. blood pressure range :, fasting blood sugars : and weight :.Encounter Diagnosis: BMI 27.0-27.9,adult, Current nonsmoker, Controlled diabetes mellitus, CAD (coronary artery disease), Hypertensive heart disease without heart failure, Hyperlipidemia, Vitamin B12 deficiency, Vitamin D deficiency, unspecified, Need for zoster vaccination [facility] Office Visit On: 27-Nov-2017 9:41 Encounter Reason: Annual Medicare Exam - The patient had reviewed and updated the family history, medication/s, past medical history and social history. Yes the patient did have a mini mental status exam done today. The End: 27-Nov-2017 10:32 activities of daily living the patient needs help with are none. The patient has driven in past 6 months and put area rugs through house, but the patient has not had fecal incontinence, had urinary inco ntinence, missed or ran out of medications to soon, fallen in the past 6 months, gotten lost, has a medalert necklace or bracelet or put handrails in bathroom. The patient has completed the following pr eventative measures: PSA testing (2017) and colonoscopy (5 yrs). The patient does have durable power of energy attorney and living will. The patient has noticed lack of energy. Other providers contributing to the patient's care are general service officer. Encounter Diagnosis: BMI 27.0-27.9,adult, Current nonsmoker, Annual Medicare Phyiscal WITHOUT abnormal findings (Renamed from Encounter for general adult medical examination without abnormal findings), Screening for prostate cancer, Encounter for screening for malignant neoplasm of colon (Renamed from Special screening for malignant neoplasms, colon), Controlled diabetes mellitus, Other fatigue [facility] Office Visit On: 14-Nov-2017 8:43 Encounter Reason: Cold Symptoms - Symptoms include nasal congestion, runny nose, postnasal drainage, productive cough (clear mucus) and headache, while symptoms do not include sore throat. Onset was sudden 1 week(s) ago. End: 14-Nov-2017 10:19 The patient describes this as moderate in severity. Associated symptoms include wheezing and fatigue, while associated symptoms do not include shortness of breath, nausea, vomiting, diarrhea, fever or chills. Note for Cold symptoms: Cold symptoms, pt was here 11/05 and states he is not feeling any better-was rx zpakWas seen about 1 week ago-put on zpack- first two days were good and then went back to feeling bad again.-Wheezing, chest congestion, some SOB, fatigue, cough-white, nasal drainage-white, headache, No ear pain or pressure, fever or chills, sore throat. Has had symptoms off and on since August. Had asthma when he was younger and grew out of it. Thrush is better.Encounter Diagnosis: Cough, BMI 28.0-28.9,adult, Candidiasis, Smoker, Upper respiratory infection, Nasal drainage, SOB (shortness of breath) [facility] Office Visit On: 05-Nov-2017 9:35 Encounter Reason: Cold Symptoms - Onset was 1 week(s) ago. Note for Cold symptoms: Cold symptomsEncounter Diagnosis: BMI 28.0-28.9,adult, Current nonsmoker, Candidiasis, Cough End: 05-Nov-2017 10:04 [facility] Office Visit On: 27-Aug-2017 9:47 Encounter Reason: Upper Respiratory Infection (URI) - No changes in management were made at the last visit. Symptoms include nasal congestion, runny nose and productive cough, while symptoms do not include fever, chills End: 27-Aug-2017 10:29 or general malaise. Onset was sudden 4 day(s) ago. The symptoms occur constantly. The patient describes this as moderate in severity and unchanged. Current treatment includes non-prescription cold medic ation. Note for Upper respiratory infection: Symptoms started 4 days ago-fatigue, runny nose-clear, cough, body aches, no energy, No sore throat, fever or chills, sneezing, headaches, SOB, CP. Has taken dayquil and nyquil.Encounter Diagnosis: BMI 28.0-28.9,adult, Current nonsmoker, Cough, Body aches, Upper respiratory infection [facility] Office Visit On: 11-Oct-2016 9:09 Encounter Reason: Earache - The onset of the earache has been sudden and has been occurring in a persistent pattern for 3 months. The course has been constant. The earache is described as a moderate dull ache. It affects End: 11-Oct-2016 11:15 the right ear. The pain affects the internal ear. There has been associated difficulty sleeping, while there has been no chills, crying, decreased hearing or non- purulent discharge from ear.Encounter Diagnosis: Current nonsmoker, BMI 28.0-28.9,adult , Ceruminosis, right (Renamed from Excessive cerumen in ear canal, right), Otalgia, right [facility] Office Visit On: 17-Jul-2016 8:25 Encounter Reason: Earache - The earache has been occurring in a persistent pattern. The earache is described as a pressure sensation. It affects both ears (right more). The pain affects the internal ear.Encounter Diagnosis: BMI 27.0-27.9,adult, End: 17-Jul-2016 12:19 Current nonsmoker, Ceruminosis, bilateral (Renamed from Excessive cerumen in both ear canals) [facility] Office Visit On: 01-Jun-2016 7:15 Encounter Reason: Pre-Op Visit - The procedure scheduled is a Excisional biopsy subcutaneous masses left eyebrow on Jun 2016. The surgeon for the procedure will be Kevin Pelletier. Recent symptoms do not include fever, ch End: 01-Jun-2016 10:46 ills, fatigue, chest pain, cough, dyspnea, dysuria, urinary frequency, nausea, vomiting, diarrhea, abdominal pain, easy bruising, lower extremity swelling or poor exercise tolerance. Pertinent family hi story does not include anesthesia reaction, myocardial infarction, stroke, aneurysm, sudden , clotting disorder or bleeding disorder. Pertinent social history includes aspirin use. After surgery th e patient plans to recover at home with family. Note for Pre-op visit: Facial for surgical scaring to have excisional biopsies of subucutaneous masses Left medial eyebrow, left nasal wall and final in setting forehead flap to nose under MAC anesthesia Encounter Diagnosis: Preop examination, Hypertensive heart disease without heart failure, Controlled diabetes mellitus, Hyperlipidemia, CAD (coronary artery disease), BMI 27.0-27.9,adult, Anxiety, Anticoagulated [facility] Office Visit On: 05-Apr-2016 8:32 Encounter Reason: Follow up tests - Date: (03/22/16 labs)., [ADDITIONAL REASON] Follow up for chronic medical issues - The patient feels well with minor complai End: 05-Apr-2016 9:52 nts, has good energy level and is sleeping well. Patient has been compliant with instructions. Current medication use: no side effects and compliant with dosing regimen. Patient sleeps 8 hours per night . Nutrition: balanced diet and no supplemental vitamins & iron. The medical issues the patient is following up for include All identified problems below, blood sugar issues, high blood pressure and high cholesterol. blood pressure range : and weight :. Encounter Diagnosis: Controlled diabetes mellitus, Nonsmoker, CAD (coronary artery disease), Hyperlipidemia, Hypertensive heart disease without heart failure [facility] Office Visit On: 29-Dec-2015 8:26 Encounter Reason: Follow up for chronic medical issues - The patient feels well with minor complaints, has good energy level and is sleeping well. Patient has been compliant with instructions. Current medication use: no End: 29-Dec-2015 14:20 side effects and compliant with dosing regimen. Patient sleeps 7 hours per night. Nutrition: balanced diet and no supplemental vitamins & iron. The medical issues the patient is following up for inc alyssae All identified problems below, blood sugar issues, cardiac issues, high blood pressure and high cholesterol. blood pressure range :.Encounter Diagnosis: Controlled diabetes mellitus, Hypertension, essential, benign, Hyperlipidemia, CAD (coronary artery disease), Nonsmoker [facility] Office Visit On: 26-Sep-2015 8:03 Encounter Reason: Follow up for chronic medical issues - The patient feels well with minor complaints (getting over a cold), has decreased energy level and is sleeping poorly. Patient has been compliant with instructions End: 26-Sep-2015 13:24 . Current medication use: no side effects and compliant with dosing regimen. Patient sleeps 5 hours per night. Nutrition: balanced diet and no supplemental vitamins & iron. The medical issues the karen lynn is following up for include All identified problems below, cardiac issues (CAD), depression (anxiety), high blood pressure and high cholesterol. blood pressure range :.Encounter Diagnosis: Anxiety, Hypertension, essential, benign, Hyperlipidemia, CAD (coronary artery disease), Controlled diabetes mellitus, Thyroid nodule, Smoker, Nonsmoker [facility] Historical Summary On: 26-Sep-2015 7:21 [facility] End: 26-Sep-2015 7:26 Office Visit On: 23-Jun-2015 8:08 Encounter Reason: Follow up for chronic medical issues - The patient feels well with minor complaints, has good energy level and is sleeping well. Patient has been compliant with instructions. Current medication use: no End: 23-Jun-2015 9:36 side effects and compliant with dosing regimen. Patient sleeps 7 hours per night. Nutrition: balanced diet and no supplemental vitamins & iron. The medical issues the patient is following up for inc lude All identified problems below, cardiac issues (CAD), depression (anxiety), high blood pressure and high cholesterol. blood pressure range :.Encounter Diagnosis: HYPERTENSION, BENIGN ESSENTIAL (401.1), Need for prophylactic vaccination and inoculation against influenza, CAD (coronary artery disease), Hyperlipidemia [facility] Office Visit On: 21-Mar-2015 9:49 Encounter Reason: Follow up hospital - Reason for ER visit: heart attack. The patient feels well with minor complaints and has decreased energy level. Patient has been compliant with instructions. Current medication use: End: 21-Mar-2015 10:30 no side effects, compliant with dosing regimen and considered effective by patient. Patient sleeps 7 hours per night. Impact of disease: emotional impact-mild. Nutrition: balanced diet and supplemental vitamins. Hospital procedures performed were heart catherization (with angioplasty ).Encounter Diagnosis: Anxiety (300.00), Hyperlipidemia, CAD (coronary artery disease), Nontoxic uninodular goiter (241.0), HYPERTENSION, BENIGN ESSENTIAL (401.1), Smoker [facility] Office Visit On: 07-Dec-2014 14:49 Encounter Reason: Preoperative evaluation - The patient feels well with no complaints, has good energy level and is sleeping well. Surgical procedures include: other (Will have flap to nose after a Moh's procedure done o End: 07-Dec-2014 15:40 n 4-[address] Bernard secondary to basal cell cancer). Date of procedure: (12-09-2014) . There have been no problems with general anesthesia or blood/blood products.Encounter Diagnosis: Preop examination, HYPERTENSION, BENIGN ESSENTIAL (401.1), Anxiety (300.00), Smoker [facility] Phone Encounter On: 08-Jun-2014 15:13 Encounter Diagnosis: Dizziness End: 08-Jun-2014 15:14 [facility] Office Visit On: 25-May-2014 13:42 Encounter Diagnosis: HYPERTENSION, BENIGN ESSENTIAL (401.1) End: 25-May-2014 13:43 [facility] Office Visit On: 25-May-2014 11:59 Encounter Reason: Follow up Hypertension - blood pressure range : (ever since he had a pre op a week ago it has been around 130 to 170/60 tp 90).Encounter Diagnosis: Accelerated essential hypertension End: 25-May-2014 13:31 [facility] Office Visit On: 04-Nov-2013 8:26 Encounter Reason: Follow up for chronic medical issues - The patient feels well with minor complaints, has good energy level and is sleeping well. Patient has been compliant with instructions. Current medication use: no End: 04-Nov-2013 12:13 side effects and compliant with dosing regimen. Patient sleeps 8 hours per night. Nutrition: inappropriate diet and no supplemental vitamins & iron. The medical issues the patient is following up fo r include All identified problems below and asthma. blood pressure range :., [ADDITIONAL REASON] Annual Medicare Exam - Yes the patient did have (mms30/30 wisper 10/26) a mini men khadar status exam done today. The activities of daily living the patient needs help with are none. The patient has driven in past 6 months, but the patient has not had fecal incontinence, had urinary inco ntinence, missed or ran out of medications to soon, fallen in the past 6 months, gotten lost, has a medalert necklace or bracelet, put area rugs through house or put handrails in bathroom. The patient h as completed the following preventative measures: PSA testing (2013) and colonoscopy (checking with ananda). The patient does have durable power of energy attorney and living will. The patient has noticed noth ing from the geriatic depression scale. Other providers contributing to the patient's care are urologist and other: (endo ). Encounter Diagnosis: Asthma (493.11), DEFICIENCY, VITAMIN D NOS (268.9), Anxiety (300.00), Low HDL (272.5), HYPERTENSION, BENIGN ESSENTIAL (401.1), Cough (786.2), SCREENING FOR CANCER OF THE PROSTATE (V76.44), Annual Medicare Physical (V70.0), Nontoxic uninodular goiter (241.0) [facility] Office Visit On: 05-Jun-2013 10:47 Encounter Reason: Cough - The onset of the cough has been sudden. The cough is characterized as productive of mucoid sputum. The amount of sputum produced is scanty. The cough occurs all the time. The symptoms are aggra End: 05-Jun-2013 11:28 vated by supine posture. The symptoms have been associated with hoarseness, runny nose and wheezing. the color of the sputum is yellowish.Encounter Diagnosis: Cough (786.2), Nasal congestion (478.19), Che infection of mouth (112.0), BRONCHITIS, NOT SPECIFIED ACUTE OR CHRONIC (490.) [facility] Prescription Refill On: 04-Nov-2012 11:44 Encounter Diagnosis: Asthma (493.11) End: 04-Nov-2012 11:49 [facility] Office Visit On: 03-Nov-2012 10:18 Encounter Reason: Follow up tests - Date: (10/28/12 labs)., [ADDITIONAL REASON] Follow up for chronic medical issues - The patient feels well with minor complai End: 03-Nov-2012 10:59 nts, has good energy level and is sleeping well. Patient has been compliant with instructions. Current medication use: no side effects and compliant with dosing regimen. Patient sleeps 8 hours per night . Nutrition: balanced diet and no supplemental vitamins & iron. The medical issues the patient is following up for include All identified problems below, asthma and depression (anxiety). blood pressure range :. Encounter Diagnosis: HYPERTENSION, BENIGN ESSENTIAL (401.1), Asthma (493.11), Anxiety (300.00), Nontoxic uninodular goiter (241.0), Low HDL (272.5), Malaise and fatigue (780.79), Che infection of mouth (112.0), Skin Cancer, Site Unspecified (232.9), DEFICIENCY, VITAMIN D NOS (268.9), Abnormal CT of Abdomen(794.9), Abnormal Lung Sounds/Rales (786.7) [facility] Annotation/Addendum On: 24-Oct-2012 12:34 Encounter Diagnosis: Abnormal Blood Chemistry (790.6) End: 24-Oct-2012 12:37 [facility] Annotation/Addendum On: 21-Oct-2012 14:51 Encounter Diagnosis: Malaise and fatigue (780.79) End: 21-Oct-2012 14:53 [facility] Office Visit On: 21-Oct-2012 13:59 Encounter Reason: Cold Symptoms - Symptoms include nasal congestion, runny nose, hoarseness and productive cough, while symptoms do not include sore throat, dry cough, facial pressure, facial pain or headache. Onset was End: 21-Oct-2012 14:39 sudden 2 week(s) ago. There is no known event that preceded symptom onset. The symptoms occur constantly. The patient describes this as moderate in severity. Associated symptoms include fatigue, while a ssociated symptoms do not include ear pain, wheezing, shortness of breath, nausea, vomiting, diarrhea or fever.Encounter Diagnosis: Che infection of mouth (112.0) [facility] Phone Encounter On: 12-May-2012 10:48 Encounter Diagnosis: Low HDL (272.5), DEFICIENCY, VITAMIN D NOS (268.9) End: 12-May-2012 11:16 [facility] Office Visit On: 08-May-2012 8:03 Encounter Reason: Follow up for chronic medical issues - The patient feels well with minor complaints, has good energy level and is sleeping well. Patient has been compliant with instructions. Current medication use: no End: 08-May-2012 15:24 side effects and compliant with dosing regimen. Patient sleeps 8 hours per night. Nutrition: balanced diet and no supplemental vitamins & iron. The medical issues the patient is following up for inc lude All identified problems below, asthma and depression (anxiety). blood pressure range :.Encounter Diagnosis: Asthma (493.11), HYPERTENSION, BENIGN ESSENTIAL (401.1), ASTHMA, UNSPECIFIED, WITH ACUTE EXACERBATION (493.92), Foliculitis (704.8), Abnormal CXR (793.1), Abdominal Pain,LUQ (789.02), Epigastric pain (789.06), Nontoxic uninodular goiter (241.0), Skin Cancer, Site Unspecified (232.9) [facility] Office Visit On: 24-Apr-2012 9:17 Encounter Reason: Annual Medicare Exam - The patient had reviewed and updated the family history, medication/s, past medical history and social history. Yes the patient did have a mini mental status exam done today. The End: 24-Apr-2012 11:42 patient would like education and information on weight loss, smoking cessation, meals and exercise programs. The activities of daily living the patient needs help with are none. The patient has driven i n past 6 months, but the patient has not had fecal incontinence, had urinary incontinence, missed or ran out of medications to soon, fallen in the past 6 months, gotten lost, has a medalert necklace or bracelet, put area rugs through house or put handrails in bathroom. The patient has completed the following preventative measures: PSA testing (2 yrs) and colonoscopy (2 or 3 yrs). The patient does have living will, but the patient does not have durable power of energy attorney. The patient has noticed nothing from the geriatic depression scale. Other providers contributing to the patient's care are urologist (Dr. Schmitz).Encounter Diagnosis: Anxiety (300.00), Hypertension (401.0), Annual Medicare Physical (V70.0), Need for prophylactic vaccination and inoculation against influenza (V04.81), SCREENING FOR CANCER OF THE PROSTATE (V76.44) [facility] Office Visit On: 03-Oct-2011 11:13 Encounter Reason: Follow up for chronic medical issues - The patient feels well with minor complaints, has good energy level and is sleeping well. Patient has been compliant with instructions. Current medication use: no End: 03-Oct-2011 12:56 side effects and compliant with dosing regimen. Patient sleeps 7 hours per night. Nutrition: balanced diet and supplemental vitamins. The medical issues the patient is following up for include All ident ified problems below, asthma, depression (anxiety) and high blood pressure. blood pressure range :.Encounter Diagnosis: Anxiety (300.00), HYPERTENSION, BENIGN ESSENTIAL (401.1), Asthma (493.11) [facility] Office Visit On: 21-Aug-2010 15:15 Encounter Reason: Injections - The medication the patient is here to receive is shingles vaccine IM.Encounter Diagnosis: Need for prophylactic vaccination and inoculation against other specified disease (V05.8) End: 21-Aug-2010 16:20 [facility] Phone Encounter On: 24-Jul-2010 9:56 Encounter Diagnosis: Need for prophylactic vaccination and inoculation against other specified disease (V05.8) End: 24-Jul-2010 9:59 [facility] Office Visit On: 16-May-2010 10:45 Encounter Diagnosis: Unspecified Diagnosis End: 16-May-2010 10:57 [facility] Office Visit On: 04-May-2010 8:48 Encounter Reason: Follow up for chronic medical issues - The patient feels well with minor complaints ,has good energy level and is sleeping well. Patient has been compliant with instructions. Current medication use: no End: 04-May-2010 9:49 side effects and compliant with dosing regimen. Patient sleeps 6 hours per night. Nutrition: balanced diet and no supplemental vitamins & iron. The medical issues the patient is following up for inc lude All identified problems below ,high blood pressure and high cholesterol. blood pressure range : and weight :. Encounter Diagnosis: HYPERTENSION, BENIGN ESSENTIAL (401.1), Low HDL (272.5), Nontoxic uninodular goiter (241.0), Anxiety (300.00), Asthma (493.11) [facility] Office Visit On: 17-Oct-2009 13:07 Encounter Reason: Follow up acute care visit - The patient feeling better since last seen. Patient has been compliant with instructions. Current medication use: no side effects and compliant with dosing regimen. Patient End: 17-Oct-2009 14:13 sleeps 7 hours per night. Nutrition: balanced diet and no supplemental vitamins & iron. Encounter Diagnosis: Abdominal Pain,RUQ(789.01), Diverticulitis (562.11) [facility] Phone Encounter On: 20-Sep-2009 10:04 [facility] End: 20-Sep-2009 10:05 Office Visit On: 13-Sep-2009 9:23 Encounter Reason: Abdominal pain - The onset of the pain has been sudden and has been occurring in an intermittent pattern for 3 weeks. The course has been recurrent. The pain is described as a moderate burning and stabb End: 13-Sep-2009 10:26 ing. The pain is described as being located in the upper abdomen. The pain does not radiate. The symptoms are aggravated by lying down. The symptoms have no relieving factors. The symptoms have been ass ociated with bloating, while the symptoms have not been associated with constipation or diarrhea. Encounter Diagnosis: Abdominal Pain,RUQ(789.01), Epigastric pain (789.06), Abdominal Pain,LUQ (789.02) [facility] Office Visit On: 09-Aug-2009 10:35 Encounter Reason: Follow up acute care visit - The patient feeling better since last seen and improving. Patient has been compliant with instructions. Current medication use: no side effects and compliant with dosing reg End: 09-Aug-2009 22:58 imen. The medical issues the patient is following up for include All identified problems below and other (folliculitis of left forearm). Note for Follow up acute care visit: no issue with antiobitoic and feels alot btterEncounter Diagnosis: Foliculitis (704.8) [facility] Office Visit On: 03-Aug-2009 14:29 Encounter Reason: Skin lesion - The skin lesion appeared rapidly and has been occurring for 2 weeks. It has been increasing in size. The skin lesion is characterized as red and raised above the skin. The skin lesion is l End: 04-Aug-2009 7:43 ocated on the upper extremity (left forearm). There has been associated itching, while there has been no chills ,fever ,loss of sensation or pain. Note for Skin lesion: started few pimples now togethe r like abscess- has squezzd pus out- no fever or chills- feels fine otherwiseEncounter Diagnosis: Foliculitis (704.8) [facility] Office Visit On: 24-May-2009 11:11 Encounter Reason: Follow up for chronic medical issues - The patient feels well with no complaints ,has good energy level and is sleeping well. Patient has been compliant with instructions. Current medication use: no lukas End: 24-May-2009 14:14 e effects. Patient sleeps 8 hours per night. Impact of disease: no overall impact. Nutrition: balanced diet. The medical issues the patient is following up for include All identified problems below ,hig h blood pressure and other (anxiety, asthma, Skin CA, abnl x-ray). Encounter Diagnosis: Nontoxic uninodular goiter (241.0), Abnormal CXR (793.1) [facility] Office Visit On: 24-Feb-2009 16:32 Encounter Diagnosis: Nontoxic uninodular goiter (241.0) End: 24-Feb-2009 16:34 [facility] Office Visit On: 22-Feb-2009 9:26 Encounter Reason: Follow up acute care visit - The patient feeling better since last seen. Patient has been compliant with instructions. Current medication use: no side effects. Patient sleeps 8 hours per night. Impact o End: 22-Feb-2009 10:03 f disease: no overall impact. Nutrition: balanced diet. Note for Follow up acute care visit: Was evaluated 2 weeks ago for exacerbation of asthma. Is feeling alot betterEncounter Diagnosis: Abnormal CT of Abdomen(794.9), Nontoxic uninodular goiter (241.0), 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) [facility] Office Visit On: 08-Feb-2009 14:32 Encounter Reason: Follow up, Diagnostic Procedure Results - Diagnostic tests include other (abnormal chest xray, thyroid, results in EMR). Date: (01/31/09 & 02/03/09). Current symptoms include cough and other (allergies). Encounter Diagnosis: End: 08-Feb-2009 16:43 ASTHMA, UNSPECIFIED, WITH ACUTE EXACERBATION (493.92), Abnormal CT of Abdomen(794.9), Nontoxic uninodular goiter (241.0), Abnormal Chest X-Ray (793.99), Cough (786.2) [facility] Annotation/Addendum On: 31-Jan-2009 17:08 Encounter Diagnosis: Abnormal Chest X-Ray (793.99) End: 31-Jan-2009 17:10 [facility] Office Visit On: 12-Jan-2009 15:23 Encounter Diagnosis: Acute sinusitis, unspecified (461.9), Cough (786.2) End: 12-Jan-2009 15:36 [facility] Office Visit On: 10-Jan-2009 15:04 Encounter Reason: Cough - The onset of the cough has been gradual. The cough is characterized as dry. The cough occurs mainly at night. The symptoms are aggravated by supine posture. The symptoms have been associated wit End: 10-Jan-2009 17:02 h runny nose (PND). Note for Cough: Pt notes PND especially at HSEncounter Diagnosis: Nasal Congestion (478.1), Cough (786.2) [facility] Historical Summary On: 01-Nov-2008 13:09 [facility] End: 01-Nov-2008 13:10 Historical Summary On: 22-Oct-2008 12:38 [facility] End: 22-Oct-2008 12:39 Office Visit On: 13-Jul-2008 12:56 Encounter Reason: Flu like symptoms - The onset of the flu like symptoms has been acute and they have been occurring in a persistent pattern for 2 days. The course has been increasing. The flu like symptoms are described as moderate. End: 13-Jul-2008 13:50 Encounter Diagnosis: Viral infection, unspecified (079.99) [facility] Office Visit On: 14-Apr-2007 16:08 Encounter Reason: Eye redness - The onset of the eye redness has been acute and has been occurring in a persistent pattern for 3 days. The course has been constant. The eye redness is described as mild. Note for Eye red End: 14-Apr-2007 16:48 ness: right eye, redness some edema ?pink eye 48 hours only, not painful, some swelling saturday also. is getting better, matter shut last 2 nights better this am, no contacts, Encounter Diagnosis: Acute Conjuctivitis (372.01) [facility] Office Visit On: 21-Oct-2006 14:57 Encounter Reason: Follow up for chronic medical issues - The patient feels well with no complaints ,has good energy level and is sleeping well. Patient has been compliant with instructions. Current medication use: no lukas End: 21-Oct-2006 15:46 e effects. Patient sleeps 8 hours per night. Nutrition: balanced diet. The medical issues the patient is following up for include depression and high blood pressure. Encounter Diagnosis: Hypertension (401.0), Asthma (493.11), Anxiety (300.00), Low HDL (272.5) [facility] Historical Summary On: 10-Sep-2006 13:49 [facility] End: 10-Sep-2006 13:53 Historical Summary On: 16-Jul-2006 9:10 Encounter Diagnosis: Unspecified Diagnosis End: 16-Jul-2006 9:12 [facility] Historical Summary On: 13-May-2006 14:05 [facility] End: 15-May-2006 19:31 Payers MedicareForethought Life InsTRANS JACKIEobert Solomon; a guarantor
--- OUTSIDE RECORDS SUMMARY | 2018-11-18 07:06 | XMS RPT_ITS | Continuity of Care Document ---
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) Comments: WA March 17 stents-- mild elevation adn progression -- did dose adj at 12/11 ov Status: Active Need for prophylactic vaccination and inoculation against influenza (Renamed from Need for immunization against influenza) (Z23, V04.81) Status: Active Need for zoster vaccination (Z23, V04.89) Status: Active Nonsmoker (Z78.9, V49.89) Status: Active Non-smoker (Z78.9, V49.89) Status: Active Other fatigue (R53.83, 780.79) Comments: will ck lab and do mid afternoon snack adn chg diet and see how feesl Status: Active Renal mass, left (N28.89, 593.9) [...] days Quantity: 30 {Tablet} Refills: 6 Ordered:07-Jul-2018 Jose Sandra APARICIO DO, Kathleen Start : 07-Jul-2018 Active ALBUTEROL [...] days Quantity: 1 {Gram(s)} Refills: 0 Ordered:09-Aug-2009 Darlene Lemus DO Start : 09-Aug-2009 End : 14-Aug-2009 Inactive BIAXIN XL PAC, 500MG (Oral Tablet Extended Release 24 Hour) 2 (two) Tablet ER 24HR daily for 10 days Quantity: 20 {Tablet_ER_24HR} Refills: 0 Ordered:08-Feb-2009 Suzanne Root CNP Start : 08-Feb-2009 End : 18-Feb-2009 Inactive [...] Quantity: 60 {Lozenge} Refills: 0 Ordered:05-Jun-2013 Ivett DAVISSuzanne Start : 05-Jun-2013 End : 19-Jun-2013 Inactive ERGOCALCIFEROL, 05998TOQK (Oral Capsule) 1 Capsule weekly for 0 [...] days Quantity: 20 {Tablet} Refills: 0 Ordered:13-Sep-2009 Deinsse Alvarado LPN Start : 08-Feb-2009 Inactive Comments:Take 2 for 5 days, 1 for 5 days, 1/2 for 5 days PROVENTIL HFA, 108 (90 Base)MCG/ACT (Inhalation Aerosol Solution) 1 or 2 puffs Aerosol Soln q 6hours prn for 0 days Quantity: 1 {Aerosol_Soln} Refills: 1 Ordered:25-May-2014 Denisse Alvarado LPN Start : 04-Nov-2012 End : 25-May-2014 Inactive Comments:called to [place] rx 11-04-12 sari ZOSTAVAX, 91856EEP/0.65ML (Subcutaneous Solution Reconstituted) 1 For Solution injection [...] days Quantity: 30 {Tablet} Refills: 3 Ordered:17-Apr-2018 Jose APARICIO CatherineCricketodilon APARICIO Catherine Start : 17-Apr-2018 End : 17-Apr-2018 Discontinued [...] Medicare annual wellness exam (Z00.00, V70.0) Comments: -16 colonoscopy 6-14 repeat in 5 years, PSA [...] 780.79) Status: Resolved as of 03-Nov-2012 Nasal congestion (R09.81, 478.19) Comments: mucinex Status: Resolved as of 07-Dec-2014 Nasal Congestion (478.1) Status: Inactive as of 07-Feb-2009 Nasal drainage (J34.89, 478.19) Status: Inactive as of 19-Dec-2017 Need for prophylactic vaccination and inoculation against influenza (Z23, V04.81) Comments: Lot:56WU9Mmh:02/23/16Amt:0.5mlRoute:IMSite: L DltdGiven By: ERLIN Call signed Status: Inactive as of 26-Sep-2015 Need for prophylactic vaccination and inoculation against other specified disease (Z23, V05.8) Status: Inactive as of 21-Mar-2015 Otalgia, right (H92.01, 388.70) Status: Inactive as of 27-Nov-2017 Other specified viral infection, in conditions classified [...] Procedure Dates Details Angioplasty Completed Comments: x2 [facility] 03-15-15 [facility] Appendectomy Completed Cataract Extraction-Right Completed Comments: Dr. Paul Facial surgery Completed Vasectomy Completed Date Value Details 10-Jun-2018 Kidney and Bladder Result: Comments: See Note; NOTES: [facility] Imaging Services [address] [place] [address] Kidney and Bladder MR#: [id number] Acct: [id number] Name: RICKI BHARDWAJ Rep #: [id number] D OB: 1945 M 73 From: Jerome Mackay MD PCP: Jose DO,Catherine Status: REG CLI Study: Kidney and Bladder Date of Exam: 06/10/18 Exam# [id number] Ordering Dr: Yessica Siu PASTEURIZING SUPERVISOR-C STUDY: RENAL ULT RASOUND - COMPLETE REASON [...] 3. Unremarkable urinary bladder. Electronically Signed: Michael Mackay MD at 18:00 EDT , Service support , CC: Catherine Madrigal DO; Yessica Siu NP Transition Specialist: Signed 06-Jun-2018 CT Abd/Pelvis W/WO Contrast Result: Comments: See Note; NOTES: [facility] Imaging Services [address] [place] [address] Abd/Pelvis W/WO Contrast MR#: [id number] Acct: [id number] Name: RICKI BHARDWAJ Rep #: [id number] : 1945 M 73 From: Madan Marie MD PCP: Catherine Madrigal DO Status: REG CLI Study: CT Abd/Pelvis W/WO Contrast Date of Exam: 06/06/18 Exam# [id number] Ordering Dr: Eb Siu PASTEURIZING SUPERVISOR-C STUDY: CT ABDOMEN AND PELVIS WITH AND [...] CC: Catherine Madrigal DO; Yessica Siu NP Transition Specialist: Signed 24-Oct-2017 Cardiology Visit Report Result: Comments: See Note; NOTES: [facility] [place] [address] OFFICE VISIT Date of Service: 10/23/17 MR#: [id number] Acct: [id number] Name: RICKI BHARDWAJ ep #: [id number] : 1945 Provider: Dana Matute Age/Sex: 72/M Location: [facility] Status: Signed HPI HPI Details: RICKI BHARDWAJ, [...] Lt brachial Intake Visit Reasons: 6 M Lathe Machinist Required: No Ac companied by: None Is [...] (Chronic) Hyperlipidemia (Chronic) Atherosclerotic heart disease of [place] coronary artery without angina pectoris (Chronic) long term care pharmacist use of drug (Chronic) Surgical History Postsurgical [...] insufficiency. Assessment AND Plan 1. Atherosclerosis of [place] coronary artery of [place] heart without angina pectoris I25.10 Plan - [...] Code Off vis,est,level 3 Diagnoses Atherosclerosis of [place] coronary a rtery of [place] heart without angina pectoris I25.10 [place] vs. transplanted heart: [place] heart Essential hypertension I10 Hypertension type: essential hypertension Pure hypercholesterolemia E78.00; E7 8.0 Hyperlipidemia type: pure hypercholesterolemia Coding Level of Care Code Off vis,est,level 3 Diagnoses Atherosclerosis of [place] coronary artery of [place] heart without angina pectoris I25.10 [place] vs. transplanted heart: [place] heart Essential hypertension I10 Hypertension type: essential hypertension Pure hypercholesterolemia E78.00; E78.0 Hyperlipidemia type: pure hypercholesterolemia 1055 <Electronically signed by Dana Matute PA> Date Dana JONES 10/24/17 1241<Electronically maicol d by Pacheco James MD> Cosigner Signature: Date (if applicable) Pacheco James MD CC: Catherine Madrigal DO 24-Oct-2017 Cardiology Visit Report Result: Comments: See Note; NOTES: [facility] [address] [place] [address] OFFICE VISIT Date of Service: 10/23/17 MR#: [id number] Acct: [id number] Name: RICKI BHARDWAJ ep #: [id number] : 1945 Provider: Dana Matute Age/Sex: 72/M Location: [facility] Status: Signed HPI HPI Details: RICKI [...] Lt brachial Intake Visit Reasons: 6 M Lathe Machinist Required: No Ac companied by: None Is [...] (Chronic) Hyperlipidemia (Chronic) Atherosclerotic heart disease of [place] coronary artery without angina pectoris (Chronic) long term care pharmacist use of drug (Chronic) Surgical History Postsurgical [...] insufficiency. Assessment AND Plan 1. Atherosclerosis of [place] coronary artery of [place] heart without angina pectoris I25.10 Plan - [...] Code Off vis,est,level 3 Diagnoses Atherosclerosis of [place] coronary a rtery of [place] heart without angina pectoris I25.10 [place] vs. transplanted heart: [place] heart Essential hypertension I10 Hypertension type: essential hypertension Pure hypercholesterolemia E78.00; E7 8.0 Hyperlipidemia type: pure hypercholesterolemia Coding Level of Care Code Off vis,est,level 3 Diagnoses Atherosclerosis of [place] coronary artery of [place] heart without angina pectoris I25.10 [place] vs. transplanted heart: [place] heart Essential hypertension I10 Hypertension type: essential hypertension Pure hypercholesterolemia E78.00; E78.0 Hyperlipidemia type: pure hypercholesterolemia 1055 <Electronically signed by Dana JONES> Date Dana JONES 10/24/17 1241<Electronically maicol d by Pacheco James MD> Cosigner Signature: Date (if applicable) Pacheco James MD CC: Catherine Madrigal DO 29-Dec-2015 ELECTROCARDIOGRAM, COMPLETE (ECG) (12920) Comments: sinus reyna -no acute changes Result: [MEASUREMENTS ANALYSIS] Date of Test: 12/29/2015 09:54:20; Heart Rate: 59; WA Interval: 176; QRS: 102; QT Interval: 408; Corrected QT Interval (QTc): 407; P Wave [place]: 23; QRS Wave [place]: 11; T Wave [place] : 15; Blood Pressure: 148/84 [ECG DIAGNOSTIC STATEMENTS] Date of Test: 12/29/2015 09:54:20; Summary: 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 ABNORMAL 10-Oct-2015 Thyroid Result: Comments: See Note; NOTES: [facility] Imaging Services [address] [place] [address] Verdana 4d Thyroid MR#: [id number] Acct: [id number] Name: RICKI BHARDWAJ Rep # : [id number] : 1945 M 70 From: Franko Julien MD PCP: Catherine Madrigal DO Status: REG CLI Study: Thyroid Date of Exam: 10/10/15 Exam# [id number] Ordering Dr: Catherine Madrigal DO STUDY : [...] Franko Julien MD at 8:04 EST Tel [phone], Service support [phone], CC: Catherine Madrigal DO Transition Specialist: Signed 04-Oct-2015 Echocardiogram Complete Result: Comments: See Note; NOTES: [facility] Cardiovascular Services [address] [place] [address] Echo Complete 10/04/15 0956 MR#: [id number] Acct: [id number] Name: RICKI MERINO Rep #: [id number] : 1945 70 From: Ranjith Dueñas MD Attending Dr: Ranjith Dueñas MD Status: REG CLI Ordering Dr: Ranjith Dueñas MD Date: 10/04/15 Location: [facility] Sex: M C Admitte d: Procedure This [...] Date Dictated: 10/04/15 0956 Date Transcrib ed: 10/04/157 Transition Specialist: Signed 24-Jun-2015 CR - Individual Treatment Plan Result: Comments: See Note; NOTES: [facility] Cardiac Rehab [address] [place] [address] CR - Individual Treatment Plan MR#: [id number] Acct: [id number] Name: RICKI BHARDWAJ Rep #: [id number] : 1945 70 From: Froilan Chan PCP: [...] Referral to Mental Health, No Referral to [facility] Case Management, No Referral to Physician - [...] modality and prog ress per protocol. 06/24/15 6673 <Electronically signed by Ranjith Dueñas MD> Cosigner Signature: Date Ranjith Dueñas MD CC: Signed 25-May-2015 CR - Individual Treatment Plan Result: Comments: See Note; NOTES: [facility] Cardiac Rehab [address] [place] [address] CR - Individual Treatment Plan MR#: [id number] Acct: [id number] Name: RICKI BHARDWAJ Rep #: [id number] : 1945 70 From: Froilan Chan PCP: [...] Uses Stress Management Skills, No Referral to [facility], No Referral to [facility] Case Management, No Referral to Physician - [...] Treatment Plan Result: Comments: See Note; NOTES: [facility] Cardiac Rehab [address] [place] [address] CR - Individual Treatment Plan MR#: [id number] Acct: [id number] Name: BENTONRICKI Lucian Rep #: [id number] : 1945 69 From: Kamron Wilks PCP: [...] HDL >45. Triglycerides <150. HgbA1C <7%. B WA <25 - Lipids Total Cholesterol (mg/dL) Goal [...] Referral to Mental Health, No Referral to [facility] Case Management, No Referral to Physician - [...] Positive support system - Psychosocial Test Tool ed:: HANDS Depression Questionnaire Self-Efficacy Score:: 10 [...] Stress Report Result: Comments: See Note; NOTES: [facility] Cardiovascular Services [address] [place] [address] STRESS TEST REPORT 04/05/15 1305 MR#: [id number] Acct: [id number] Name: RICKI ROY Rep #: [id number] : 1945 69 From: Ranjith Dueñas MD Primary Care: Catherine Madrigal DO Status: REG CLI Ordering Dr: Ranjith Dueñas MD Service Date: 04/05/15 Order Date: 04/05/15 Se x: Brigitte C DATE OF SERVICE: 04/05/2015 EXERCISE TOLERANCE TEST: The patient exercised on a Eder protocol for 9 minutes completing stage 3 achieving a peak heart rate of 141 beats per minute (92% predicted maximum heart rate) and a peak blood pressure of 176/84 mmHg and a peak MET capacity of 10 METS. The baseline ECG demonstrated normal sinus rhythm with inferolateral WA of indeterminate ag e. The peak exercise [...] changes. Ranjith Dueñas MD T: MARCOS JOB: [id number] 04/06/15 0948 <Electronically maicol d by Ranjith Dueñas MD> Date Ranjith Dueñas MD CC: Catherine Madrigal DO; Ranjith Dueñas MD Date Dictated: 04/05/151304 Date Transcribed: 04/05/151304 Transition Specialist: Signed 06-Apr-2015 Emergency Department Summary Result: Comments: See Note; NOTES: [facility] Medical Records Department [address] [place] [address] Emergency Department Summary MR#: [id number] Acct: [id number] Name: RICKI BHARDWAJ Rep #: [id number] : 1945 69 From: Hong Blair DO PCP: Catherine Madrigal DO Status: [facility] ER DATE OF SERVICE: 03/15/2015 The patient was seen and assessed by Dr. Jose Alejandro and was found to have an acute myocardial infarction. When the patient went to CT scanner to evaluate his head injury, he became more unresponsive and started to have desaturations. He was brought back to [facility] resuscitation bay while Dr. Alejandro was speaking [...] was started on Versed for [facility] er. Please see Dr. Alejandro's dictation for the rest of the ED course and his assessment. Hong Blair DO T: MARCOS JOB: [id number] 04/06/15 0806 <Electronically signed by Hong Blair DO&am p;#62; Date Hong Austin Cosigner Signature (If Indicated): Date CC: Catherine Wick Date Dictated: 03/25/151558 Date Transcribed: 03/25/151558 Transition Specialist: Signed 16-Mar-2015 Emergency Department Summary Result: Comments: See Note; NOTES: [facility] Medical Records Department [address] [place] [address] Emergency Department Summary MR#: [id number] Acct: [id number] Name: RICKI BHARDWAJ Rep #: [id number] : 1945 69 From: Jose Alejandro MD PCP: Catherine Madrigal DO Status: [facility] ER DATE OF SERVICE: 03/15/2015 METHOD OF [...] causing a lace ration to his right restorationist with this as well. EMS EKG was transmitted and does show an acute inferior lateral WA. The STEMI team was activated prior to [...] where he was when he was at [facility]. His GCS is 13. TESTS: A chest x-ray read by radiology as no acute pathology. CT of the brain was obtained due to his head injury prior to requiring anticoagulation, was no bleed. EKG again was from the field an acute WA. CBC: His white count is 15.1, hemoglobin [...] Brilinta. I spoke with Dr. Camp from [facility]. Due to his abnormal GCS and acut WA, i t was elected to intubate the [...] C: Pippa Madrigal DO T: NTS JOB: [id number] 03/16/15 0159 <Electronically signed by Jose Alejandro MD> Date Jose Alejandro MD CC: Catherine Germain O Date Dictated: 03/16/157 Date Transcribed: 03/16/157 Transition Specialist: Signed 15-Mar-2015 Brain/Head without Contrast Result: Comments: See Note; NOTES: [facility] Imaging Services [address] [place] [address] CAT Scan Report MR#: [id number] Acct: [id number] Name: RICKI BHARDWAJ Rep #: [id number] : 1945 M 69 From: Jackson Daniel MD PCP: Catherine Madrigal DO Status: REG ER Study: Brain/Head without Contrast Date of Exam: 03/15/15 Exam# [id number] Ordering Dr: Jose Alejandro MD STUDY : [...] at 17:27 EDT , Service suppo rt [phone], CC: Catherine Madrigal DO; Jose Alejandro MD Transition Specialist: Signed 15-Mar-2015 Chest 1 View (Portable) Result: Comments: See Note; NOTES: [facility] Imaging Services [address] [place] [address] Radiology Report MR#: [id number] Acct: [id number] Name: RICKI BHARDWAJ Rep #: [id number] : 1945 M 69 From: Jackson Daniel MD PCP: Catherine Madrigal DO Status: DEP ER Study: Chest 1 View (Portable) Date of Exam: 03/15/15 Exam# [id number] Ordering Dr: Jose Alejandro MD STUDY: X [...] MD at 22:36 EDT , Service support [phone], Fax RAD/Chest 1 View (Portable) IMPRESSION: No acute cardiopulmonary pathology status post intubation Electronically Signed: Jackson Daniel MD at 22:36 EDT , Service support [phone], CC: Catherine Madrigal DO; Jose Alejandro MD Transition Specialist: Signed 07-Dec-2014 Chest PA and Lateral Result: Comments: See Note; NOTES: [facility] Imaging Services [address] [place] [address] Radiology Report MR#: [id number] Acct: [id number] Name: RICKI BHARDWAJ Rep #: [id number] : 1945 M 69 From: Chris Lo MD PCP: Catherine Madrigal DO Status: REG CLI Study: Chest PA and Lateral Date of Exam: 12/07/14 Exam# [id number] Ordering Dr: Suzanne Root STUDY: X-RAY MINNIE [...] MD at 17:48 EDT , Service support [phone], RAD/Chest PA and Lateral IMPRESSION: Stable findings compatible with ch ronic obstructive pulmonary disease. No acute pathology. Electronically Signed: Chris Lo MD at 17:48 EDT , Service support [phone], C C: Suzanne Root; Catherine Madrigal DO Transition Specialist: Signed 04-Nov-2013 Chest PA and Lateral Result: Comments: See Note; NOTES: [facility] Imaging Services [address] [place] [address] Radiology Report MR#: [id number] Acct: [id number] Name: RICKI BHARDWAJ Rep #: [id number] : 1945 M 68 From: Angel Davis DO PCP: Catherine Madrigal DO Status: REG CLI Study: Chest PA and Lateral Date of Exam: 11/04/13 Exam# [id number] Ordering Dr: Catherine Madrigal DO STUDY: X [...] D.O. 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 Comments: Quit smoking February 2015 following heart attack Status: Active Smoking Status Name Dates Details Former smoker Current every day smoker Vital Signs Date Test Result Details 00-Via-666423:10 Temperature 97.6 f Comments: Method: Temporal Pulse [...] kg/m2 Body Surface Area Calculated 2.13 m2 :05 Temperature 98.2 f Comments: Method: Oral Pulse [...] Description Value Details :24 CREATININE FINGERSTICK Comments: [facility] [address] [address] EGFR WB > 60.0000 mL/min (Normal) CREATININE WB 1.0 mg/dL (Normal) Range: 0.70-1.30 67-Baa-621231:37 Microscopic Examination Comments: PERFORMED BY: [facility] Apnbtg8085 [facility] [id number] Bacteria None seen (Normal) Mucus Threads Present (Normal) Epithelial Cells (non renal) 0-10 {/hpf} (Normal) Range: 0 - 10 RBC 0-2 {/hpf} (Normal) Range: 0 - 2 WBC 0-5 {/hpf} (Normal) Range: 0 - 5 64-Cev-411537:47 VITAMIN B-12 Comments: PATIENT WAS FASTINGPERFORMED BY: [facility] [id number] BY: [facility] [facility] [id number] (CYANOCOBALAMIN) (14467) Vitamin B12 579 pg/mL (Normal) Range: 232-1245 40-Vmp-083361:47 TSH (70376) Comments: PATIENT WAS FASTINGPERFORMED BY: [facility] [id number] BY: [facility] Yhhhxp0821 [facility] [id number] TSH 0.979 {uIU/mL} (Normal) Range: 0.450-4.500 73-Swy-237612:37 URINALYSIS, W/ MICRO (66101) Comments: PERFORMED BY: [facility] [id number] Microscopic Examination See below: (Normal) Comments: Microscopic was indicated and was performed. Microscopic Examination MICRON (Normal) Comments: Microscopic follows if indicated. Nitrite, Urine Negative (Normal) Urobilinogen,Semi-Qn 0.2 mg/dL (Normal) Range: 0.2-1.0 Bilirubin Negative (Normal) Occult Blood Negative (Normal) Ketones Negative (Normal) Glucose Negative (Normal) Protein Negative (Normal) WBC Esterase Negative (Normal) Appearance Clear (Normal) Urine-Color Yellow (Normal) pH 6.0 (Normal) Range: 5.0-7.5 Specific [place] 1.018 (Normal) Range: 1.005-1.030 14-Sdk-607102:37 MICROALBUMIN: CREATININE RATIO Comments: PERFORMED BY: [facility] Wxuoal2845 [facility] [id number] (42290) AND (94815) Alb/Creat Ratio 7.5 {mg/g_creat} (Normal) Range: 0.0-30.0 Albumin, Urine 8.7 ug/mL (Normal) Creatinine, Urine 116.0 mg/dL (Normal) 03-Ivx-635117:47 METABOLIC PANEL, Comments: PATIENT WAS FASTINGPERFORMED BY: [facility]Ysjoccordk8960 [facility] [id number] BY: [facility]6[address] [facility] [id number] COMPREHENSIVE (08884) ALT (SGPT) 12 [iU]/L (Normal) Range: 0-44 [...] 8-27 Glucose 78 mg/dL (Normal) Range: 65-99 16-Zfw-105183:47 LIPOPROTEIN, BLD, BY NMR Comments: PATIENT WAS FASTINGPERFORMED BY: [facility] [id number] BY: DOROTHY [facility]CoR[facility] CenterZngnzz5973 [facility] [id number] (00962) LP-IR Score 87 (Abnormal) Comments: INSULIN RESISTANCE MARKER <--Insulin Sensitive Insulin Resistant--> Percentile in Reference PopulationInsulin Resistance ScoreLP-IR Score Low 25th 50th 75th High <27 27 45 63 >63LP-IR Score is inaccurate if patient is non-fasting. .The LP-IR score is a laboratory developed i [facility] [place] that has beenassociated with insulin resistance and [...] were developed and their performance characteristicsdetermined by [employer]. These assays have not been cleared by [...] 1600 - 2000 Very High > 2000 62-Pln-167119:47 CBC W/AUTO DIFF WBC Comments: PATIENT WAS FASTINGPERFORMED BY: BN [facility] [address] [id number] BY: CB [facility] Ruvfyj6187 [facility] [id number] (28547) Immature Grans (Abs) 0.0 {x10E3/uL} (Normal) Range: [...] 4.14-5.80 WBC 7.6 {x10E3/uL} (Normal) Range: 3.4-10.8 86-Qax-167893:34 HgA1C , Office (67662) HgA1C , Office 5.2 % (Normal) Range: 4.6 - 7.1 89-Xeh-616139:34 Blood Glucose , Office (28016) Blood Glucose , Office 89 (Normal) 1-Jrk-703539:44 Microscopic Examination Comments: PATIENT WAS FASTINGPERFORMED BY: [facility] [id number] BY: [employer] Xfmnnr1895 [facility] [id number] Bacteria None seen (Normal) Mucus Threads Present (Normal) Epithelial Cells (non renal) 0-10 {/hpf} (Normal) Range: 0 - 10 RBC None seen {/hpf} (Normal) Range: 0 - 2 WBC 0-5 {/hpf} (Normal) Range: 0 - 5 0-Eff-054208:44 CALCIFIDIOL (82520) VIT D Comments: PATIENT WAS FASTINGPERFORMED BY: [facility] [id number] BY: [employer]6370 [facility] [id number] 25 Vitamin D, 25-Hydroxy 25.7 ng/mL (Abnormal) Range: 30.0-100.0 Comments: Vitamin D deficiency has been defined by the [place] [employer] and an Endocrine Society practice guideline as alevel of serum 25-OH vitamin D less than 20 ng/mL (1,2).The Endocrine Society went on to further define vitamin Dinsufficiency as a level between 21 and 29 ng/mL (2).1. IOM ([place] [employer]). 2010. Dietary reference intakes for calcium and D. [place]: The National Academies Press.2. Luca MF, Elena NC, Vini ALVAREZ, et al. Evaluation, treatment, and prevention of vitamin D deficiency: an Endocrine Society clinical practice guideline. JCEM. 2010; 96(7):1911-30. 9-Hrx-722549:44 VITAMIN B-12 (CYANOCOBALAMIN) Comments: PATIENT WAS FASTINGPERFORMED BY: [facility] [id number] BY: Koa.la70 Bishop RoadDublin [place] [id number] (26381) Vitamin B12 362 pg/mL (Normal) Range: 232-1245 2-Fqx-289833:44 TSH (37602) Comments: PATIENT WAS FASTINGPERFORMED BY: [employer] [id number] BY: [employer]70 Bishop RoadDublin [place] [id number] TSH 0.957 {uIU/mL} (Normal) Range: 0.450-4.500 2-Gjr-905201:44 URINALYSIS, W/ MICRO Comments: PATIENT WAS FASTINGPERFORMED BY: [employer] [id number] BY: [employer]70 Bishop RoadDublin [place] [id number] (88333) Microscopic Examination See below: (Normal) Comments: Microscopic was indicated and was performed. Microscopic Examination MICRON (Normal) Comments: Microscopic follows if indicated. Nitrite, Urine Negative (Normal) Urobilinogen,Semi-Qn 0.2 mg/dL (Normal) Range: 0.2-1.0 Bilirubin Negative (Normal) Occult Blood Negative (Normal) Ketones Negative (Normal) Glucose Negative (Normal) Protein Negative (Normal) WBC Esterase Negative (Normal) Appearance Clear (Normal) Urine-Color Yellow (Normal) pH 7.5 (Normal) Range: 5.0-7.5 Specific [place] 1.018 (Normal) Range: 1.005-1.030 0-Osg-120823:44 MICROALBUMIN: CREATININE Comments: PATIENT WAS FASTINGPERFORMED BY: [facility] [employer] [id number] BY: Code Rebel Qkqduq2637 Bishop RoadDublin [place] [id number] RATIO (43961) AND (04238) Alb/Creat Ratio 8.8 {mg/g_creat} (Normal) Range: 0.0-30.0 Albumin, Urine 8.0 ug/mL (Normal) Creatinine, Urine 91.2 mg/dL (Normal) 1-Abt-479612:44 METABOLIC PANEL, Comments: PATIENT WAS FASTINGPERFORMED BY: [facility]Cap[facility]Ovdvyokokd8058 [facility] [id number] BY: [facility]la[facility] Hospital6370 [facility] [id number] COMPREHENSIVE (02045) ALT (SGPT) 9 [iU]/L (Normal) Range: 0-44 [...] 8-27 Glucose 74 mg/dL (Normal) Range: 65-99 0-Gki-104071:44 LIPOPROTEIN, BLD, BY NMR Comments: PATIENT WAS FASTINGPERFORMED BY: [employer] [id number] BY: DOROTHY LabCoRiverview Medical CenterSpkebj7536 [facility] [id number] (70791) LP-IR Score 77 (Abnormal) Comments: INSULIN RESISTANCE MARKER <--Insulin Sensitive Insulin Resistant--> Percentile in Reference PopulationInsulin Resistance ScoreLP-IR Score Low 25th 50th 75th High <27 27 45 63 >63LP-IR Score is inaccurate if patient is non-fasting. .The LP-IR score is a laboratory developed i [facility] [place] that has beenassociated with insulin resistance and [...] were developed and their performance characteristicsdetermined by [employer]. These assays have not been cleared by [...] 1600 - 2000 Very High > 2000 8-Ylq-904811:44 CBC W/AUTO DIFF WBC Comments: PATIENT WAS FASTINGPERFORMED BY: BN [facility] [address] [id number] BY: CB [facility] Xmcfdd0671 [facility] [id number] (79982) Immature Grans (Abs) 0.0 {x10E3/uL} (Normal) Range: [...] 4.14-5.80 WBC 9.2 {x10E3/uL} (Normal) Range: 3.4-10.8 8-Kao-275069:44 PSA (PROSTATE SPECIFIC Comments: PATIENT WAS FASTINGPERFORMED BY: BN [facility] Ukzrmpsybi1577 [facility] [id number] BY: CB [facility] Hwpqxp1088 [facility] [id number] ANTIGEN) (V76.44) Prostate Specific Ag, 0.9 ng/mL (Normal) Range: 0.0-4.0 Serum Comments: CydcorIA methodology. .According to the [place] [employer], Serum PSA shoulddecrease and remain at undetectable levels after radicalprostatectomy. The AUA defines biochemical recurrence as an initialPSA value 0.2 ng/mL or greater followed by a subsequent confirmatoryPSA value 0.2 ng/mL or greater.Values obtained with d ifferent assay methods or kits cannot be usedinterchangeably. Results cannot be interpreted as absolute evidenceof the presence or absence of malignant disease. 70-Qww-92761:27 Lipid Profile Comments: Order Date: 05/15/17Order Info: 0788-1 - *Hepatic Function PanelOrder Info: [id number] - *Lipid Profile CC PCPComments: 12 hours fasting, may have water.[facility] [address] [place], [address] VLDL 20 mg/dL (Normal) Range: 5-40 LDL [...] 200-240 mg/dL Borderline >240 mg/dL High Risk 48-Dzz-36479:27 Liver Profile Comments: Order Date: 05/15/17Order Info: 0788-1 - *Hepatic Function PanelOrder Info: [id number] - *Lipid Profile CC PCPComments: 12 hours fasting, may have water.[facility] [address] [place], [place], [id number] D BILI 0.12 mg/dL (Normal) Range: 0.00-0.30 T BILI 0.40 mg/dL (Normal) Range: 0.20-1.00 ALT 22 U/L (Normal) Range: 16-61 Comments: Please note revised ALT reference range ozuvlldvz86/28/2018. ALK P 96 U/L (Normal) Range: 45-117 AST 17 U/L (Normal) Range: 15-37 GLOB 3.3 g/dL (Normal) Range: 2.2-4.2 ALB 3.8 g/dL (Normal) Range: 3.2-5.0 T PROT 7.1 g/dL (Normal) Range: 6.4-8.2 5-Hjc-810128:28 THROAT CULTURE (82188) Comments: PATIENT NOT FASTINGPERFORMED BY: [facility] Ynyway7714 [facility] [id number] Information: SRC:TH Result 1 RRF (Normal) Comments: Routine respiratory thomas Upper Respiratory Culture Final report (Normal) 56-Fcv-95851:26 Lipid Profile Comments: Order Date: 04/22/17Order Info: [id number] - *Hepatic Function PanelOrder Info: [id number] - *Lipid Profile CC PCPComments: 12 hours fasting, may have water.[facility] [address] [place], [place], [address] VLDL 22 mg/dL (Normal) Range: 5-40 LDL [...] 200-240 mg/dL Borderline >240 mg/dL High Risk :26 Liver Profile Comments: Order Date: 04/22/17Order Info: 0788-1 - *Hepatic Function PanelOrder Info: [id number] - *Lipid Profile CC PCPComments: 12 hours fasting, may have water.[facility] [address] [place], [place], [address] D BILI 0.19 mg/dL (Normal) Range: 0.00-0.30 T BILI 0.70 mg/dL (Normal) Range: 0.20-1.00 ALT 22 U/L (Normal) Range: 12-78 ALK P 87 U/L (Normal) Range: 45-117 AST 15 U/L (Normal) Range: 15-37 GLOB 3.1 g/dL (Normal) Range: 2.3-3.5 ALB 3.7 g/dL (Normal) Range: 3.4-5.0 T PROT 6.8 g/dL (Normal) Range: 6.4-8.2 21-Qqf-326113:34 PSA,Total - Annual Screen Comments: [facility] [address] [place], [place], [address] PSA,TOT SCREEN 1.88 ng/mL (Normal) Range: 0.00-4.00 Comments: This test was performed using the TPSA assay method for theHospital For Behavioral Medicinesion chemistry system. Values obtained with differentassay methods cannot be used interchangably.When changing PSA assays in the course of monitoring apatient, additional sequential testing should be carriedout to confirm baseline values. 7-Mnd-872290:28 PT (PROTHROMBIN TIME) (70469) Comments: PATIENT NOT FASTINGPERFORMED BY: LabCoRiverview Medical CenterMzgmhn6377 [facility] [id number] Prothrombin Time 10.4 {sec} (Normal) Range: 9.1-12.0 INR 1.0 (Normal) Range: 0.8-1.2 Comments: Reference interval is for non-anticoagulated patients. . Suggested INR therapeutic range for Vitamin K anta gonist therapy: Standard Dose (moderate intensity therapeutic range): 2.0 - 3.0 Higher intensity therapeutic range 2.5 - 3.5 1-Dde-000442:28 CBC, Platelets & Auto Diff Comments: PATIENT NOT FASTINGPERFORMED BY: LabCoRiverview Medical CenterDccslb4024 [facility] [id number] Information: [id number] (58400) Immature Grans (Abs) 0.0 {x10E3/uL} (Normal) Range: [...] 4.14-5.80 WBC 8.4 {x10E3/uL} (Normal) Range: 3.4-10.8 2-Ncd-440473:28 Metabolic Panel, Basic (28374) Comments: PATIENT NOT FASTINGPERFORMED BY: CB [facility] Sjnbbp1678 [facility] [id number] Calcium, Serum 8.8 mg/dL (Normal) Range: 8.6-10.2 [...] Glucose, Serum 74 mg/dL (Normal) Range: 65-99 01-Jun-20167:16 Urinalysis, Office (49019) UA - LEUKOCYTE ESTERASE Negative (Normal) UA - NITRITE Negative (Normal) URINE UROBILINGN NELSON TIMED Normal mg/dL (Normal) UA - PROTEIN Negative mg/dL (Normal) UA - PH 7.0 (Normal) UA - BLOOD Non Hemolyzed Moderate (Normal) UA - SPECIFIC GRAVITY 1.010 (Normal) UA - KETONES Negative mg/dL (Normal) UA - BILIRUBIN Negative (Normal) UA - GLUCOSE Negative (Normal) 86-Bwk-363551:07 CBC-Complete Blood Cnt No Diff Comments: [facility] [address] [place], [address] MPV 10.2 fL (Normal) Range: 6.2-12.0 PLT [...] (Normal) Range: 4.4-11.0 :39 HgA1C , Office (79495) HgA1C , Office 5.2 % (Normal) Range: 4.6 - 7.1 :39 Blood Glucose , Office (95409) Blood Glucose , Office 81 (Normal) :18 Microscopic Examination Comments: PATIENT WAS FASTINGPERFORMED BY: ZapMe [facility] [id number] Bacteria None seen (Normal) Mucus Threads Present (Normal) Crystal Type Calcium Oxalate (Normal) Crystals Present (Abnormal) Epithelial Cells (non renal) 0-10 {/hpf} (Normal) Range: 0 - 10 RBC 0-2 {/hpf} (Normal) Range: 0 - 2 WBC 0-5 {/hpf} (Normal) Range: 0 - 5 :18 TSH (36595) Comments: PATIENT WAS FASTINGPERFORMED BY: [employer] [facility] [id number] TSH 0.790 {uIU/mL} (Normal) Range: 0.450-4.500 :18 URINALYSIS, W/ MICRO (15207) Comments: PATIENT WAS FASTINGPERFORMED BY: ComparaOnlineox RoadDublin [place] [id number] Microscopic Examination See below: (Normal) Comments: Microscopic was indicated and was performed. Microscopic Examination MICRON (Normal) Comments: Microscopic follows if indicated. Nitrite, Urine Negative (Normal) Urobilinogen,Semi-Qn 0.2 mg/dL (Normal) Range: 0.2-1.0 Bilirubin Negative (Normal) Occult Blood Negative (Normal) Ketones Negative (Normal) Glucose Negative (Normal) Protein Trace (Normal) WBC Esterase Negative (Normal) Appearance Clear (Normal) Urine-Color Yellow (Normal) pH 6.0 (Normal) Range: 5.0-7.5 Specific [place] 1.028 (Normal) Range: 1.005-1.030 :18 MICROALBUMIN: CREATININE RATIO Comments: PATIENT WAS FASTINGPERFORMED BY: [facility]6370 [facility] [id number] (48223) AND (47351) Microalb/Creat Ratio 7.5 {mg/g_creat} (Normal) Range: 0.0-30.0 Microalbumin, Urine 13.6 ug/mL (Normal) Creatinine, Urine 182.3 mg/dL (Normal) :18 METABOLIC PANEL, COMPREHENSIVE Comments: PATIENT WAS FASTINGPERFORMED BY: [facility]6[address] [facility] [id number] (04893) ALT (SGPT) 13 [iU]/L (Normal) Range: 0-44 [...] Glucose, Serum 78 mg/dL (Normal) Range: 65-99 :18 LIPID PANEL (95027) Comments: PATIENT WAS FASTINGPERFORMED BY: [employer]70 TuCloset.comAtrium Health Mercy [id number]; fu 04-05-16 LDL/HDL Ratio 1.8 {ratio_units} (Normal) [...] DIFF WBC Comments: PATIENT WAS FASTINGPERFORMED BY: Sajanlin[address] [facility] [id number] Information: [id number] (59166) Immature Grans (Abs) 0.0 {x10E3/uL} (Normal) Range: [...] (Normal) Range: 3.4-10.8 :26 HgA1C , Office (94347) HgA1C , Office 5.3 % (Normal) Range: 4.6 - 7.1 :26 Blood Glucose , Office (31209) Blood Glucose , Office 86 (Normal) :36 LIPID PANEL (39821) Comments: PATIENT WAS FASTINGPERFORMED BY: LabCoRiverview Medical CenterAjatsv7460 [facility] [id number] Information: [id number] LDL/HDL Ratio 1.4 {ratio_units} (Normal) Range: 0.0-3.6 [...] mg/dL (Abnormal) Range: 100-199 :08 LIPID PANEL (55974) Comments: copy to [employer]; PATIENT WAS FASTINGPERFORMED BY: [employer]6370 PWAAdventHealth [facility] [id number]; apt. 06-23-15 LDL/HDL Ratio 1.7 {ratio_units} (Normal) [...] METABOLIC PANEL, Comments: PATIENT WAS FASTINGPERFORMED BY: Tracked[employer]com6370 [facility] [id number] Information: [id number] COMPREHENSIVE (88530) ALT (SGPT) 13 [iU]/L (Normal) Range: 0-44 [...] Glucose, Serum 93 mg/dL (Normal) Range: 65-99 75-Gzp-300457:54 Basic Metabolic Profile (BMP) Comments: Serial Specimen #1, #2 or #3? 1'TROP' Serial specimen #1, #2, #3, or #4: 1Test performed at:[facility] Onqsvpwcdv[address] [place] [address] GAP 5 (Normal) Range: 5-15 CO2 29.0 [...] 126 mg/dLsuggests DIABETES MELLITUS per A.D.A. criteria. :54 CBC W/Diff, Automated Comments: Test performed at:[facility] Ju[address]at[address] [place] [address] ; Ordered by another doctor Absolute Lymph [...] #1, #2, #3, or #4: 1Test performed at:[facility] [address] [place], [place] [address] CPKMB 1.0 ng/mL (Normal) Range: 0.0-5.0 Comments: CK-MB and RI Interpretation MB Relative Index Non-AMI <or= 5 NA Indeterminate > 5 <or= 4 AMI > 5 > 4 CPK TOTAL 101 U/L (Normal) Range: 39-308 93-Lbl-132722:54 Troponin-I Comments: Serial Specimen #1, #2 or #3? 1'TROP' Serial specimen #1, #2, #3, or #4: 1Test performed at:[facility] [address]uictgl[address] [place], [place] [address] TROPONIN-I < 0.02 ng/mL (Normal) Comments: TROPONIN-I EXPECTED VALUES <0.05 NEGATIVE 0.06 - 0.59 AT RISK OF WA > OR = 0.60 SUGGEST WA 63-Pmn-556689:33 Metabolic Panel, Basic Comments: PATIENT NOT FASTINGPERFORMED BY: [employer] [place] [id number] (19056) Calcium, Serum 9.1 mg/dL (Normal) Range: 8.6-10.2 [...] Glucose, Serum 92 mg/dL (Normal) Range: 65-99 59-Hje-945688:33 PT (Prothrobim Time) (31251) Comments: PATIENT NOT FASTINGPERFORMED BY: [employer] [place] [id number] Prothrombin Time 10.1 {sec} (Normal) Range: 9.1-12.0 INR 1.0 (Normal) Range: 0.8-1.2 Comments: Reference interval is for non-anticoagulated patients. . Suggested INR therapeutic range for Vitamin K anta gonist therapy: Standard Dose (moderate intensity therapeutic range): 2.0 - 3.0 Higher intensity therapeutic range 2.5 - 3.5 22-Bln-484135:33 CBC, Platelets & Auto Comments: PATIENT NOT FASTINGPERFORMED BY: [facility] Klmexs4510 [facility] [id number] Information: [id number] Diff (78842) Immature Grans (Abs) 0.0 {x10E3/uL} (Normal) Range: [...] 4.14-5.80 WBC 9.6 {x10E3/uL} (Normal) Range: 3.4-10.8 81-Aaa-839484:07 TSH (63098) Comments: PATIENT NOT FASTINGPERFORMED BY: [facility] [facility] [id number] TSH 1.090 {uIU/mL} (Normal) Range: 0.450-4.500 66-Icx-040867:07 CBC, Platelets & Auto Comments: PATIENT NOT FASTINGPERFORMED BY: [facility]6[address] [facility] [id number] Information: [id number] Diff (09962) Immature Grans (Abs) 0.0 {x10E3/uL} (Normal) Range: [...] 4.14-5.80 WBC 8.6 {x10E3/uL} (Normal) Range: 3.4-10.8 74-Iah-428225:07 Metabolic Panel, Comprehensive Comments: PATIENT NOT FASTINGPERFORMED BY: DOROTHY [facility] Bvzedm4735 [facility] [id number] (58504) ALT (SGPT) 15 [iU]/L (Normal) Range: 0-44 [...] Glucose, Serum 80 mg/dL (Normal) Range: 65-99 2-Dwd-702451:08 METANEPHRINES - URINE (03886) Comments: PATIENT NOT FASTINGPERFORMED BY: MARIA EUGENIA [facility] Mugdhscmgn5649 [facility] [id number] Metanephrine, U,24hr 135 {ug/24_hr} (Normal) Range: 45-290 Comments: (Hypertensive) >17 years 11 months: 35 - 460 Metanephrine, Ur 82 ug/L (Normal) Normetanephr.,U,24h 343 {ug/24_hr} (Normal) Range: 82-500 Comments: (Hypertensive) >17 years 11 months: 110 - 1050 Normetanephrine, Ur 208 ug/L (Normal) 4-Spk-999129:08 CATECHOLAMINES TOTAL, URINE Comments: PATIENT NOT FASTINGPERFORMED BY: Horse CollaborativeLaura [place] 649547 [facility] [id number] Information: SRC:LEANNA [id number] START 4@6:10AM 1,650ML FINISH 05/28/14@6: (33747) Dopamine, Ur, 24hr 117 {ug/24_hr} (Normal) Range: 0-510 Dopamine, Urine 71 ug/L (Normal) Norepinephrine,U,24h 51 {ug/24_hr} (Normal) Range: 0-135 Norepinephrine, Ur 31 ug/L (Normal) Epinephrine, U, 24hr 7 {ug/24_hr} (Normal) Range: 0-20 Epinephrine, Urine 4 ug/L (Normal) 9-Qaa-661870:08 URINE VMA (69875) Comments: PATIENT NOT FASTINGPERFORMED BY: uberlifeLaura [place] 649547 [facility] [id number] VMA, Urine, 24hr 3.1 {mg/24_hr} (Normal) Range: 0.0-7.5 VMA, Urine 1.9 mg/L (Normal) 50-Qga-039482:47 Microscopic Examination Comments: PATIENT WAS FASTINGPERFORMED BY: Lagiar GeekStatusAdventHealth Hendersonville [id number] Bacteria Few (Normal) Mucus Threads Present (Normal) Epithelial Cells (non renal) 0-10 {/hpf} (Normal) Range: 0 - 10 RBC 0-3 {/hpf} (Normal) Range: 0 - 3 WBC 0-5 {/hpf} (Normal) Range: 0 - 5 06-Mwr-59628:42 PSA (PROSTATE SPECIFIC Comments: PATIENT WAS FASTINGPERFORMED BY: [facility] UndergroundAt[facility] Health [facility]cy [id number] ANTIGEN) (V76.44) Prostate Specific Ag, 1.5 ng/mL (Normal) Range: 0.0-4.0 Serum Comments: [place] ECLIA methodology. .According to the [place] [employer] Association, Serum PSA shoulddecrease and remain [...] of malignant disease. :42 Vitamin D Hydroxy (63339) Comments: PATIENT WAS FASTINGPERFORMED BY: Code Rebel Xmcagf2008 [facility] Hospitalblin [place] [id number] Vitamin D, 25-Hydroxy 40.9 ng/mL (Normal) Range: 30.0-100.0 Comments: Vitamin D deficiency has been defined by the [place] [employer] and an Endocrine Society practice guideline as alevel of serum 25-OH vitamin D less than 20 ng/mL (1,2).The Endocrine Society went on to further define vitamin Dinsufficiency as a level between 21 and 29 ng/mL (2).1. IOM ([place] of [employer]). 2010. Dietary reference intakes for calcium and D. [place]: The National Academies Press.2. Luca MF, Elena NC, Vini ALVAREZ, et al. Evaluation, treatment, and prevention of vitamin D deficiency: an Endocrine Society clinical practice guideline. JCEM. 2010; 96(7):1911-30. :42 TSH (21543) Comments: PATIENT WAS FASTINGPERFORMED BY: [employer] LabSimracewayrp Hoenin5160 [facility] Hospitalblin [place] [id number] TSH 1.150 {uIU/mL} (Normal) Range: 0.450-4.500 :42 URINALYSIS, W/ MICRO (78799) Comments: PATIENT WAS FASTINGPERFORMED BY: [employer] [facility] Kddiby3444 [facility] Hospitalblin [place] [id number] Microscopic Examination See below: (Normal) Nitrite, Urine Negative (Normal) Urobilinogen,Semi-Qn 0.2 mg/dL (Normal) Range: 0.0-1.9 Bilirubin Negative (Normal) Occult Blood Negative (Normal) Ketones Negative (Normal) Glucose Negative (Normal) Protein Negative (Normal) WBC Esterase Trace (Abnormal) Appearance Clear (Normal) Urine-Color Yellow (Normal) pH 6.5 (Normal) Range: 5.0-7.5 Specific [place] 1.011 (Normal) Range: 1.005-1.030 :42 MICROALBUMIN: CREATININE RATIO Comments: PATIENT WAS FASTINGPERFORMED BY: [employer] [facility] Community HospitalShoutOmaticAdventHealth Hendersonville [id number] (98772) AND (79355) Microalb/Creat Ratio 17.6 {mg/g_creat} (Normal) Range: 0.0-30.0 Microalbumin, Urine 13.2 ug/mL (Normal) Range: 0.0-17.0 Creatinine, Urine 75.1 mg/dL (Normal) Range: 22.0-328.0 :42 METABOLIC PANEL, COMPREHENSIVE Comments: PATIENT WAS FASTINGPERFORMED BY: [employer]70 PWAAdventHealth Hendersonville [id number] (09798) ALT (SGPT) 13 [iU]/L (Normal) Range: 0-44 [...] mg/dL (Normal) Range: 65-99 :42 LIPID PANEL (35323) Comments: PATIENT WAS FASTINGPERFORMED BY: [employer]70 [facility] [id number] LDL/HDL Ratio 3.5 {ratio_units} (Normal) Range: 0.0-3.6 [...] MANUAL DIFF Comments: PATIENT WAS FASTINGPERFORMED BY: [employer]70 [facility] [id number] Information: [id number] (70243) Immature Grans (Abs) 0.0 {x10E3/uL} (Normal) Range: [...] 4.14-5.80 WBC 8.1 {x10E3/uL} (Normal) Range: 3.4-10.8 1-Aiq-744221:47 CBC with manual diff Comments: PATIENT NOT FASTINGPERFORMED BY: [facility] Muaakx3159 [facility] [id number] Information: [id number] (72544) Immature Grans (Abs) 0.0 {x10E3/uL} (Normal) Range: [...] 4.14-5.80 WBC 6.8 {x10E3/uL} (Normal) Range: 4.0-10.5 33-Ylv-277049:21 Metabolic Panel, Comprehensive Comments: PATIENT NOT FASTINGPERFORMED BY: [facility] Prgsps8833 [facility] [id number] (15858) ALT (SGPT) 16 [iU]/L (Normal) Range: 0-44 [...] Glucose, Serum 81 mg/dL (Normal) Range: 65-99 16-Ffx-286300:21 CBC, Platelets & Auto Comments: PATIENT NOT FASTINGPERFORMED BY: LabCoRiverview Medical CenterBxrwtu6676 [facility] [id number] Information: [id number] Diff (68704) Immature Grans (Abs) 0.0 {x10E3/uL} (Normal) Range: [...] 4.14-5.80 WBC 6.3 {x10E3/uL} (Normal) Range: 4.0-10.5 89-Qpr-305939:09 THYROID Radiology Report See Note (Normal) Comments: [...] Julien M.D.May 20, 2012 at 3:49:16 PM [phone] Signed GP/ GP If you are the referring physician and would like to consult with theradiologist who provided this interpretation, please contact Denton Chau at [phone]. If this radiologist is unava ilable, youwill be directed to another radiologist to assist. If you are a patient with a question regarding this report, pleasecontactyour referring physician directly. Professional Interpretation Prov ided By: [facility], Phone , These documents contain legally protected [...] Erich LANG,Franko on 05/20/12 1556 Sign by: Frnako Julien MD 7-Yst-757367:48 LIPID PANEL (80067) Comments: PATIENT WAS FASTINGPERFORMED BY: LabCoRiverview Medical CenterSgaexm6626 [facility] [id number] Information: [id number],2ND ORDER NO DRAW F EE LDL Cholesterol Calc 103 mg/dL (Abnormal) Range: 0-99 LDL/HDL Ratio 3.2 {ratio_units} (Normal) Range: 0.0-3.6 HDL Cholesterol 32 mg/dL (Abnormal) Comments: According to ATP-III Guidelines, HDL-C >59 mg/dL is considered anegative risk factor for CHD. VLDL Cholesterol Tone 33 mg/dL (Normal) Range: 5-40 Triglycerides 163 mg/dL (Abnormal) Range: 0-149 Cholesterol, Total 168 mg/dL (Normal) Range: 100-199 3-Gck-623444:48 CALCIFEDIOL (72455) Comments: PATIENT WAS FASTINGPERFORMED BY: LabCoRiverview Medical CenterLzkwxn5245 [facility] [id number] Vitamin D, 25-Hydroxy 68.9 ng/mL (Normal) Range: 30.0-100.0 Comments: Vitamin D deficiency has been defined by the [place] [employer] and an Endocrine Society practice guideline as alevel of serum 25-OH vitamin D less than 20 ng/mL (1,2).The Endocrine Society went on to further define vitamin Dinsufficiency as a level between 21 and 29 ng/mL (2).1. IOM ([place] [employer]). 2010. Dietary reference intakes for calcium and D. [place]: The National Academies Press.2. Luca MF, Elena [place], Vini ALVAREZ, et al. Evaluation, treatment, and prevention of vitamin D deficiency: an Endocrine Society clinical practice guideline. JCEM. 2010; 96(7):1911-30. 86-Gvw-82568:33 CHEST, PA AND LATERAL Radiology Report See [...] seen. Signed:Bear Julien M.D.2012 at 2:44:05 PM [phone] Signed GP/GP If you are the referring physician and would like to consult with theradiologist who provided this interpre tation, please contact Denton Chau at [phone]. If this radiologist is unavailable, youwill be directed to another radiologist to assist. If you are a patient with a question regarding t his report, pleasecontactyour referring physician directly. Professional Interpretation Provided By: [facility], Phone , These documents contain legally protected [...] Dicta manju on 05/08/12 0900 by Erich LANG,Cherylranscribed on 05/08/12 1450 by ITS IMPORTSign by Erich LANG,Franko on 05/08/12 1451 Sign by: Franko Julien MD :33 Microscopic Examination Comments: PATIENT WAS FASTINGPERFORMED BY: [employer] Siuqde7801 [facility] [id number] Bacteria None seen (Normal) Mucus Threads Present (Normal) Epithelial Cells (non renal) 0-10 {/hpf} (Normal) Range: 0 - 10 RBC 0-3 {/hpf} (Normal) Range: 0 - 3 WBC 0-5 {/hpf} (Normal) Range: 0 - 5 :33 TSH (35631) Comments: PATIENT WAS FASTINGPERFORMED BY: [employer] Xdzzkn5165 [facility] [facility] [id number] TSH 0.773 {uIU/mL} (Normal) Range: 0.450-4.500 : URINALYSIS, W/ MICRO (30208) Comments: PATIENT WAS FASTINGPERFORMED BY: [facility]nessFX6370 [facility] [id number] Microscopic Examination See below: (Normal) Microscopic Examination MICRON (Normal) Comments: Microscopic follows if indicated. Nitrite, Urine Negative (Normal) Urobilinogen,Semi-Qn 1.0 mg/dL (Normal) Range: 0.0-1.9 Bilirubin Negative (Normal) Occult Blood Negative (Normal) Ketones Negative (Normal) Glucose Negative (Normal) Protein Trace (Normal) WBC Esterase Negative (Normal) Appearance Clear (Normal) Urine-Color Yellow (Normal) pH 6.0 (Normal) Range: 5.0-7.5 Specific [place] 1.019 (Normal) Range: 1.005-1.030 :33 MICROALBUMIN: CREATININE RATIO Comments: PATIENT WAS FASTINGPERFORMED BY: [facility]zt[address] [facility] [id number] ([id number]) AND ([id number]) Microalb/Creat Ratio 3.7 {mg/g_creat} (Normal) Range: 0.0-30.0 Creatinine, Urine 262.2 mg/dL (Normal) Range: 22.0-328.0 Microalbumin, Urine 9.6 ug/mL (Normal) Range: 0.0-17.0 :33 METABOLIC PANEL, COMPREHENSIVE Comments: PATIENT WAS FASTINGPERFORMED BY: DOROTHY Koa.la70 [facility] [id number] (97943) ALT (SGPT) 19 [iU]/L (Normal) Range: 0-55 [...] mg/dL (Normal) Range: 65-99 :33 LIPID PANEL (86936) Comments: PATIENT WAS FASTINGPERFORMED BY: [facility] [id number] LDL/HDL Ratio 3.7 {ratio_units} (Abnormal) Range: 0.0-3.6 [...] 100-199 Comments: Please note reference interval change 61-Jzk-19387:33 CBC WITH MANUAL DIFF Comments: PATIENT WAS FASTINGPERFORMED BY: [facility] CenterAfwrfn4370 [facility] [id number] Information: [id number] (82339) Immature Grans (Abs) 0.0 {x10E3/uL} (Normal) Range: [...] 4.14-5.80 WBC 8.7 {x10E3/uL} (Normal) Range: 4.0-10.5 :48 PSA (PROSTATE SPECIFIC Comments: PATIENT NOT FASTINGPERFORMED BY: DOROTHY LabCoR[facility]view Medical CenterNrmyyo0356 Dario Méndezjordan [place] [id number] Information: [id number],2ND ORDER NO DRAW F EE ANTIGEN) (V76.44) Prostate Specific Ag, 0.7 ng/mL (Normal) Range: 0.0-4.0 Serum Comments: CytoPherx ECLIA methodology. .According to the [employer] [employer], Serum PSA shoulddecrease and remain at undetectable levels after radicalprostatectomy. The AUA defines biochemical recurrence as an initialPSA value 0.2 ng/mL or greater followed by a subsequent confirmatoryPSA value 0.2 ng/mL or greater.Values obtained with d ifferent assay methods or kits cannot be usedinterchangeably. Results cannot be interpreted as absolute evidenceof the presence or absence of malignant disease. 4-Dix-717083:51 CBCD,SMEAR DIFF MACROCYTE 1+ (Normal) RED CELL [...] 4.6-6.2 WBC 8.7 K/mm3 (Normal) Range: 4.4-11.0 :51 COMP METABOLIC GAP 9 (Normal) Range: 5-15 [...] 7-18 GLU 75 mg/dL (Normal) Range: 70-110 :51 COMPLETE UA MUCUS, URINE 0 SEEN {/hpf} [...] NEGATIVE CLARITY CLEAR (Normal) COLOR YELLOW (Normal) 7-Gsm-311051:51 LIPID VLDL 35 mg/dL (Normal) Range: 5-40 [...] 200-240 mg/dL Borderline >240 mg/dL High Risk 0-Vva-078732:51 MICROALB:CRE UR MALB:CREAT 23.7 {mg/g_CRE} (Normal) MICROALBUMIN,UR 23.6 mg/L (Normal) UR CREAT 99.5 mg/dL (Normal) 4-Qbk-866622:51 TSH 1.15 {uIU/mL} (Normal) Range: 0.358-3.74 20-Iit-57249:19 THYROID (HP) Radiology Report See Note (Normal) Comments: Exam Number: [id number] LINICAL:Goiter. Bilateral thyroid nodules. ULTRASOUND THYROID TECHNIQUE:Multiple [...] previous exam. Reported By: JENNY DAMON M.D. :45 CBCD,SMEAR DIFF Comments: ORDERED PSA,BMPDRMINH ORDERED EVERYTHING BUT PSA PLT EST SeeNote [...] Range: 6.4-8.2 :45 COMPLETE UA Comments: ORDERED PSA,BMPDR.JOSE ORDERED EVERYTHING BUT PSA AMORPHOUS 3+ (Normal) [...] FREE T3 3.0 pg/mL (Normal) Comments: ORDERED PSALITO ORDERED EVERYTHING BUT PSA Range: 2.18-3.98 :45 LIPID Comments: ORDERED PSA,LITO ORDERED EVERYTHING BUT PSA VLDL 30 mg/dL (Normal) Range: 5-40 CHOL 172 mg/dL (Normal) Comments: <200 mg/dL Bztfcmxhq558-054 mg/dL Borderline>240 mg/dL High Risk HDL 34 [...] PSA, SCREEN 0.7 ng/mL (Normal) Comments: ORDERED PSALITO ORDERED EVERYTHING BUT PSA Range: 0.0-4.0 :45 T4 FREE DIRECT 0.94 ng/dL (Normal) Comments: ORDERED PSALITO ORDERED EVERYTHING BUT PSA Range: 0.76-1.46 :45 TSH 0.77 {uIU/mL} (Normal) Comments: ORDERED PSALITO ORDERED EVERYTHING BUT PSA Range: 0.358-3.74 26-Qpz-46563:15 HEPATOBILIARY IMAGING Radiology Report See Note (Normal) Comments: Exam Number: [id number] HEPATOBILIARY SCAN WITH KINEVAC HISTORYThimahsa is a [...] scan with Kinevac. Reported By: FRANKO JULIEN 24-Bbp-224572:21 ABDOMEN/PELVIS WITH CONTRAST Radiology Report See Note (Normal) Comments: Exam Number: [id number] CT SCAN OF THE ABDOMEN AND PELVIS [...] fluidat this time. Reported By: FRANKO JULIEN 36-Axt-52257:49 GALLBLADDER Radiology Report See Note (Normal) Comments: Exam Number: [id number] CLINICAL:Right upper quadrant pain. LIMITED ABDOMINAL ULTRASOUND TECHNIQUE:Multiple images of the right upper quadrant are submitted forinterpretation with a technologist maximo mehta. COMPARISON:CT abdomen dated 07/30/05 FINDINGS:Normal liver size, [...] right kidney. Reported By: JENNY DAMON M.D. 05-Iiy-942373:44 Lipase (96555) Comments: PATIENT NOT FASTINGPERFORMED BY: [facility] [facility] [id number] Lipase, Serum 46 U/L (Normal) Range: 0-59 75-Vrm-094419:44 C-REACT PROT HIGH SENS(hsCRP) Comments: PATIENT NOT FASTINGPERFORMED BY: [facility] [id number] ([id number]) C-Reactive Protein, Cardiac 2.96 mg/L (Normal) Range: 0.00-3.00 Comments: Relative Risk for Future Cardiovascular EventLow <1.00Average 1.00 - 3.00High >3.00 80-Lys-390309:44 Amylase (55862) Comments: PATIENT NOT FASTINGPERFORMED BY: [facility] [facility] [id number] Amylase, Serum 44 U/L (Normal) Range: 31-124 86-Fyh-842812:44 CBC WITH MANUAL DIFF Comments: PATIENT NOT FASTINGPERFORMED BY: [facility] [facility] [id number] Information: [id number] (20836) Baso (Absolute) 0.1 {x10E3/uL} (Normal) Range: 0.0-0.2 [...] 4.10-5.60 WBC 8.1 {x10E3/uL} (Normal) Range: 4.0-10.5 12-Mph-101116:44 METABOLIC PANEL, COMPREHENSIVE Comments: PATIENT NOT FASTINGPERFORMED BY: [facility] CenterMvcxzt2285 [facility] [id number] (20412) A/G Ratio 1.8 (Normal) Range: 1.1-2.5 Alkaline [...] Glucose, Serum 75 mg/dL (Normal) Range: 65-99 50-Tqi-509314:00 Anaerobic and Aerobic Culture Comments: Clinical Information: SRC:FM LEFT FOREARM PERFORMED BY: DOROTHY [facility] Votlre57[address] [facility] [id number] Aerobic Culture Final report (Normal) Anaerobic Culture [...] oxacillin predictssusceptibility or resistance to (a) other ijsh-lbkaiykki-zetdyutfp icillins suc h as cloxacillin and dicloxacillin, (b) combinationsof a penicillin and a beta-lactamase inhibitor, and(c) anti-staphylococcal cephalosporins. Routine testing of otherpenicillins, beta-lactam/beta-lacta guerrero inhibitor combinations,cephems, and carbapenems is not advised by the CLSI Standards(X285-A54, 2005). Result 2 Enterobacter cloacae Comments: Heavy growth (Normal) 25-Aba-53154:53 CHEST WITHOUT CONTRAST Radiology Report See Note (Normal) Comments: Exam Number: [id number] CLINICAL:Follow- up lung nodule. CT CHEST WITHOUT [...] previous report. Reported By: JENNY DAMON M.D. 11-Pov-57158:51 THYROID () Radiology Report See Note (Normal) Comments: Exam Number: [id number] CLINICAL:Goiter. ULTRASOUND THYROID COMPARISON:Thyroid ultrasound dated 02/24/09 [...] significantly changed. Reported By: JENNY DAMON M.D. 5-Fst-100067:15 THYROID Radiology Report See Note (Normal) Comments: Exam Number: [id number] CLINICAL:63-year-old male follow-up nodules seen on CT [...] study recommended. Reported By: RUBÉN OREILLY M.D. 95-Gow-375054:25 CHEST W/WO CONTRAST Radiology Report See Note (Normal) Comments: Exam Number: [id number] CLINICAL:Cough. Abnormal chest x-ray. CT CHEST WITH [...] thyroid lobe. Reported By: JENNY DAMON M.D. 1-Oyv-210020:22 CHEST, PA AND LATERAL Radiology Report See Note (Normal) Comments: Exam Number: [id number] TWO VIEWS OF THE CHEST HISTORYThe patient [...] be considered. Reported By: VICTORINO VEGA M.D. 50-Ith-219818:20 Rapid Flu (74528 x 2) INFLUENZA IMMUNOASSY DIRECT OPTICAL OBSERV [...] 0.2 EU/dl (Normal) Range: 0.2 - 1.0 :19 TSH 1.04 {uIU/mL} (Normal) Range: 0.34-4.82 Plan of Care Name Dates Details Instructions Hematuria, microscopic : Reviewed Diagnostic Tests Indication: [...] disease) CAD (coronary artery disease) : Reviewed Registration Specialist Letter Indication: CAD (coronary artery disease) Hypertensive [...] disease) CAD (coronary artery disease) : Reviewed Registration Specialist Letter Indication: CAD (coronary artery disease) Controlled [...] mellitus CAD (coronary artery disease) : Reviewed Registration Specialist Letter Indication: CAD (coronary artery disease) CAD [...] disease) CAD (coronary artery disease) : Reviewed Registration Specialist Letter Indication: CAD (coronary artery disease) Hyperlipidemia [...] Hyperlipidemia CAD (coronary artery disease) : Reviewed Registration Specialist Letter Indication: CAD (coronary artery disease) Hypertension, [...] Reviewed Lab HTN/CAD Red Flags Planned Observations HEPATIC FUNCTION PANEL (04922)Indication: Hyperlipidemia On: 29-Ggd-840473:51 Request LIPOPROTEIN, BLD, BY NMR (20110)Indication: Hyperlipidemia On: 34-Gzt-667233:51 Request VITAMIN B-12 (CYANOCOBALAMIN) (55993)Indication: Vitamin B12 deficiency On: 96-Kqx-865889:08 Request Rapid Strep Test, Office (26970)Indication: Body aches On: 2-Huo-640521:10 Request Rapid Flu (28548 x 2)Indication: Body aches On: 3-Tjk-011144:10 Request URINALYSIS, W/ MICRO (07992)Indication: Hypertension, essential, benign On: : Request CBC W/AUTO DIFF WBC (59514)Indication: Hypertension, essential, benign On: Request CBC with auto diff (05650)Indication: Controlled diabetes mellitus On: :30 Request MICROALBUMIN: CREATININE RATIO (63125) AND (99301)Indication: Controlled diabetes mellitus On: : Request METABOLIC PANEL, COMPREHENSIVE (36230)Indication: Controlled diabetes mellitus On: : Request LIPID PANEL (40395)Indication: Controlled diabetes mellitus On: : Request HgA1C , Office (48422)Indication: Controlled diabetes mellitus On: : Request TSH (05033)Indication: Anxiety On: :53 Request URINALYSIS, W/ MICRO (09521)Indication: Hypertension, essential, benign On: :53 Request MICROALBUMIN: CREATININE RATIO (67359) AND (47821)Indication: Hypertension, essential, benign On: :53 Request METABOLIC PANEL, COMPREHENSIVE (26753)Indication: Hypertension, essential, benign On: :53 Request LIPID PANEL (25493)Indication: Hypertension, essential, benign On: :53 Request CBC WITH MANUAL DIFF (27067)Indication: Hypertension, essential, benign On: :53 Request T4, FREE (THYROXINE) (35552)Indication: Thyroid nodule On: :31 Request T3, FREE (TRIDOTHYRONINE) (86017)Indication: Thyroid nodule On: : Request TSH (50878)Indication: Thyroid nodule On: : Request URINALYSIS, W/ MICRO (26650)Indication: Hypertension, essential, benign On: : Request MICROALBUMIN: CREATININE RATIO (34675) AND (85694)Indication: Hypertension, essential, benign On: : Request METABOLIC PANEL, COMPREHENSIVE (86010)Indication: Hypertension, essential, benign On: :27 Request LIPID PANEL (84472)Indication: Hypertension, essential, benign On: :27 Request CBC WITH MANUAL DIFF (17736)Indication: Hypertension, essential, benign On: :27 Request BACT CULTURE ANY-ANAEROBIC (88506)Indication: Folliculitis On: 5-Xnn-367542:23 Request EDELMIRA CULTURE-OTHER (27322)Indication: Folliculitis On: 2-Zvu-113598:23 Request Planned Encounters Medical; 4 Month FU - On: 28-Aug-2018 9:30 [facility] Catherine Madrigal DO, DO, Kathleen Planned Procedures Flu Vaccine (Quadrivalent) On: 12-Jun-2018 Intent 72239Hm: Keke Mike Comments: Lot #[id number]/30/2019Site-L dltd, IMDose prefilled syringegiven by:ESTHER Boggs reviewed and ABN signed B 12 Injection, 1000 mcg On: 17-Apr-2018 Intent (J3420)By: Jose APARICIO, Comments: 1 ml given im lt arm lot [id number] exp 05/14 Deepa Mathis DOhleen B 12 Injection, 1000 mcg On: 20-Feb-2018 Intent (J3420)By: Visit, Nurse Comments: [id number] exp 11/11 B 12 Injection, 1000 mcg On: 23-Jan-2018 Intent (J3420)By: Jose APARICIO, Comments: Vitamin b12 1000mcg injection lot:exp:L DELT IMpt tolerated well 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,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 Deepa Mathis DOhleen B 12 Injection, 1000 mcg On: 16-Jan-2018 Intent (J3420)By: Florentino Amos Comments: Vitamin b12 1000mcg injection lot:[id number]:05/2019L DELT IMpt tolerated well 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,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 B 12 Injection, 1000 mcg On: 09-Jan-2018 Intent (J3420)By: Jose APARICIO, Comments: Vitamin b12 1000mcg injection lot:[id number]:05/2019L DELT IMpt tolerated well 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,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 Catherine Madrigal DO, Catherine B 12 Injection, 1000 mcg On: 26-Dec-2017 Intent (J3420)By: Jose APARICIO, Comments: Vitamin b12 1000mcg injection lot:[id number]:05/2019L DELT IMpt tolerated well BRUNILDA CHOE DO, Kathleen [place] (26053)By: On: 19-Dec-2017 Catherine Huerta DO Comments: [id number]/.65mlin [id number]/L arm, IM -- dltdMLONGmlCatherine nuñez DO ELECTROCARDIOGRAM, COMPLETE On: 19-Dec-2017 Intent (ECG) (70861)By: Jose APARICIO, Comments: nsr no acute chg - Catherine Mathis DO B 12 Injection, 1000 mcg On: 19-Dec-2017 Intent (J3420)By: Jose APARICIO, Comments: lot:[id number]:rte:IM left deltoid dose:1ml given by:BRUNILDA Pedro lpn, DO, Kathleen Wax Currettes (17988)By: On: 11-Oct-2016 Intent Maggie WORLEY Bijal Ear Irrigation (42037)By: On: 11-Oct-2016 Intent Bijal Serrano LPN Comments: right ear irrigated with watertolerated well-- used currrette to revomve wax by dr madrigal and denisse butts noted internallymoderate amount light yellow wax removed with some blood residuewax currette used by Denisse Ann CNP Wax Currettes (70061)By: On: 17-Jul-2016 Intent Maggie WORLEY Bijal Ear Irrigation (64715)By: On: 17-Jul-2016 Intent Catherine Madrigal DO Comments: Amount/color removed cerumen:large amt, blackish brown from both earsOUtcome:clearUsed wax curettes:yes and tweezersEar Irrigation done by:Catherine Padilla DO ELECTROCARDIOGRAM, COMPLETE On: 01-Jun-2016 Intent (ECG) (00933)By: Suzanne Root CNP Ultrasound - ThyroidBy: On: 26-Sep-2015 Catherine Huerta DO, DO, Kathleen Flu Vaccine (Quadrivalent) On: 23-Jun-2015 Intent 68738Ad: Catherine Madrigal DO, DO, Kathleen Radiology - ChestBy: Ivett On: 07-Dec-2014 Intent Suzanne DAVIS ELECTROCARDIOGRAM, COMPLETE On: 07-Dec-2014 Intent (ECG) (21864)By: Ivett DAVIS Suzanne Duncan Cartoid DopplerBy: Jose APARICIO, On: 25-May-2014 Intent Catherine Mathis DO Renal Duplex ScanBy: Jose On: 25-May-2014 Intent Catherine APARICIO DOCatherine EKG (79248)By: Jose APARICIO, On: 25-May-2014 Intent Catherine Mathis DO Comments: nsr no acute chg some mild LVH suggested ADMINISTRATION OF On: 04-Nov-2013 Intent PNEUMOCOCCAL VACCINE (G0009)By: Catherine Madrigal DO, DO, Kathleen PNEUM VAC ADLT/IMUMNOSPR, On: 04-Nov-2013 Intent SBC/INTRM (47161)By: Jose Comments: Lot:[id number]:10/11/14Dose:0.5mgRoute:imSite:l armGiven By:Catherine Barr DO, DO, Kathleen Spirometry (30580)By: Jose On: 04-Nov-2013 Intent Catherine APARICIO DO, Comments: great curve and technique -- asx Catherine Radiology - Chest- PA and On: 04-Nov-2013 Intent LatBy: Catherine Madrigal DO, DO, Kathleen EKG (59061)By: Jose APARICIO, On: 04-Nov-2013 Intent Catherine Mathis DO Comments: nsr no acute chg EKG (08414)By: Jose APARICIO, On: 03-Nov-2012 Intent Cathreine Mathis DO Comments: nsr no acute ischemic changes Aerosol Treatment (97892)By: On: 03-Nov-2012 Intent Catherine Madrigal DO, DO, Kathleen Eprescribed prescriptions On: 03-Nov-2012 Intent (G8553)By: Catherine Madrigal DO, DO, Kathleen Spirometry (94444)By: Jose On: 08-May-2012 Intent DO, Catherine Madrigal DO, Comments: mild obstruciton -- pt asx didnt want inhlaer Catherine Ultrasound - ThyroidBy: On: 08-May-2012 Intent Jose APARICIO, Catherine Madrigal DO, Catherine Radiology - Chest- PA and On: 08-May-2012 Intent LatBy: Catherine Madrigal DO, DO, Catherine FLU VAC, SPLIT, >3 YEARS, On: 24-Apr-2012 Intent INTRAMUSC (38468)By: Jose Comments: Lot #[id number]/30/13Site-right deltoidgiven by: Kristina Painter LPN DO, Catherine Mathis DO ADMINISTRATION OF INFLUENZA On: 24-Apr-2012 Intent VIRUS VACCINE (G0008)By: Catherine Madrigal DO, DO, Kathleen Eprescribed prescriptions On: 24-Apr-2012 Intent (G8553)By: Denisse Alvarado LPN EKG (04546)By: Jose APARICIO, On: 03-Oct-2011 Intent Catherine Mathis DO Comments: nsr no acute chg Eprescribed prescriptions On: 03-Oct-2011 Intent (G8553)By: Catherine Madrigal DO, DO, Catherine IMMUNIZ ADMNIN, 1 VAC, On: 21-Aug-2010 Intent SNGL/COMBO (22404)By: Jt Comments: Lot #[id number]/06Site-LarmDose 0.65mlgiven by:Fidelina Puri LPN [place] (01603)By: On: 21-Aug-2010 Intent Fidelina Waters LPN TDAP VACCINE >7 IM (62168)By: On: 16-May-2010 Intent Fidelina Waters LPN Comments: Lot #[id number]/17/12Sijillian-L armDose0.5mlgiven by:BRUNILDA KEY Ultrasound - ThyroidBy: On: 04-May-2010 Intent Catherine Madrigal DO Comments: please compare to prev us roughly a yr ago Catherine APARICIO EKG (24507)By: Jose APARICIO, On: 04-May-2010 Intent Catherine Mathis [...] ChestBy: Suzanne Root CNP On: 24-May-2009 Intent E Comments: follow up from abnormal CT of 02-03-09 CT - ChestBy: Suzanne Root CNP On: 08-Feb-2009 Intent E Comments: To be done May 04 Ultrasound - ThyroidBy: Ivett On: 08-Feb-2009 Intent Suzanne DAVIS PFT - CompleteBy: Ivett DAVIS, On: 08-Feb-2009 Intent Suzanne Duncan Spirometry (15324)By: Ivett On: 08-Feb-2009 Intent Suzanne DAVIS Comments: done-awModerately severe restriction Inhaler Demo (71203)By: Ivett On: 08-Feb-2009 Intent Suzanne DAVIS Comments: doneAW Pulse Oximetry (22911)By: On: 08-Feb-2009 Intent Suzanne Root CNP Comments: 94% Solu- Medrol Injection, 125mg On: 08-Feb-2009 Intent (J2930)By: Suzanne Root CNP Comments: Lot #[id number]/2012Site-left qumPigb084uo/2mlgiven by Neville Meier LPN CT - ChestBy: Suzanne Root CNP On: 31-Jan-2009 Intent E Radiology - ChestBy: Ivett On: 31-Jan-2009 Intent Suzanne DAVIS Comments: LEFT PA with NIPPLE MARKERS Aerosol Treatment (31737)By: On: 10-Jan-2009 Intent Suzanne Root CNP Spirometry (55126)By: Jose On: 21-Oct-2006 Intent Catherine APARICIO DO, Comments: NORMAL SPIROMETRY Catherine EKG (66663)By: Jose APARICIO, On: 21-Oct-2006 Intent Catherine Mathis DO Comments: NSR NO ACUTE ISCHEMIC CHANGES Planned Medications Vitamin B-12 1000 MCG/ML Injection Solution Ordered: 19-Dec-2017 Pending Catherine Madirgal DO, DO, Kathleen Vitamin B-12 1000 MCG/ML Injection Solution Ordered: 26-Dec-2017 Pending Catherine Madrigal DO DO, Catherine Vitamin B-12 1000 MCG/ML Injection [...] DO, DO, Kathleen Instructions Name Dates Details BMI 27.0-27.9,adult : How to access health [...] Instructions Indication: Anxiety Encounters Office Visit On: 12-Jun-2018 10:45 Encounter Reason: [...] for inc lude All identified problems below, high blood pressure [...] for inc lude All identified problems below, blood sugar issues, [...] the following pr eventative measures: PSA testing (2018) and colonoscopy (5 yrs). The patient does have durable power of commercial litigation attorney and living will. The patient has noticed lack of energy. Other providers contributing to the patient's care are dairy laboratory technician. Encounter Diagnosis: BMI 27.0-27.9,adult, Current nonsmoker, Annual [...] for inc lude All identified problems below, blood sugar issues, [...] Yes the patient did have (mms30/30 wisper 3/3) a mini men khadar status exam done [...] The patient does have durable power of commercial litigation attorney and living will. The patient has [...] patient does not have durable power of commercial litigation attorney. The patient has noticed nothing from [...] for Cough: [facility]: Nasal Congestion (478.1), Cough (786.2) Comprehensive [...] End: 15-May-2006 19:31 Payers MedicareForethought Life InsTRANS RXRobert Race; a guarantor
--- OUTSIDE RECORDS SUMMARY | 2018-11-18 07:07 | XMS RPT_ITS | Continuity of Care Document ---
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 Unavailable Unavailable Unavailable Unavailable Problems Name [...] : 05-Jun-2013 End : 19-Jun-2013 Inactive ERGOCALCIFEROL, [id number] (Oral Capsule) 1 Capsule weekly for 0 [...] Comments:called to [place] rx 11-04-12 sari ZOSTAVAX, 56173YPY/0.65ML (Subcutaneous Solution Reconstituted) 1 For Solution injection [...] and inoculation against influenza (Z23, V04.81) Comments: Lot:[id number]:02/23/16Amt:0.5mlRoute:IMSite: L DltdGiven By: ERLIN Call signed Status: [...] Procedure Dates Details Angioplasty Completed Comments: x2 [facility] 03-15-15 [facility] Appendectomy Completed Cataract Extraction-Right Completed Comments: Dr. Paul Facial surgery Completed Vasectomy Completed Date Value Details 10-Jun-2018 Kidney and Bladder Result: Comments: See Note; NOTES: [facility] Imaging Services [address] [place] [address] Kidney and Bladder MR#: [id number] Acct: [id number] Name: RICKI BHARDWAJ Rep #: [id number] D OB: 1945 M 73 From: Jerome Mackay MD PCP: Jose DO,Catherine Status: REG CLI Study: Kidney and Bladder Date of Exam: 06/10/18 Exam# [id number] Ordering Dr: Yessica Siu VIDEOTAPE RECORDING ENGINEER-C STUDY: RENAL ULT RASOUND - COMPLETE REASON [...] CC: Catherine Madrigal DO; Yessica Siu NP Rn Hemodialysis Charge: Signed 06-Jun-2018 CT Abd/Pelvis W/WO Contrast Result: Comments: See Note; NOTES: [facility] Imaging Services [address] [place] [address] Abd/Pelvis W/WO Contrast MR#: [id number] Acct: [id number] Name: RICKI BHARDWAJ Rep #: [id number] : 1945 M 73 From: Madan Marie MD PCP: Catherine Madrigal DO Status: REG CLI Study: CT Abd/Pelvis W/WO Contrast Date of Exam: 06/06/18 Exam# [id number] Ordering Dr: Eb Siu VIDEOTAPE RECORDING ENGINEER-C STUDY: CT ABDOMEN AND PELVIS WITH AND [...] CC: Catherine Madrigal DO; Yessica Siu NP Rn Hemodialysis Charge: Signed 24-Oct-2017 Cardiology Visit Report Result: Comments: See Note; NOTES: [facility] [place] [address] OFFICE VISIT Date of Service: 10/23/17 MR#: [id number] Acct: [id number] Name: RICKI BHARDWAJ ep #: [id number] : 1945 Provider: Dana Matute Age/Sex: 72/M [...] Lt brachial Intake Visit Reasons: 6 M Safety Associate Required: No Ac companied by: None Is [...] (Chronic) Hyperlipidemia (Chronic) Atherosclerotic heart disease of [place] coronary artery without angina pectoris (Chronic) buttermaker use of drug (Chronic) Surgical History Postsurgical [...] insufficiency. Assessment AND Plan 1. Atherosclerosis of [place] coronary artery of [place] heart without angina pectoris I25.10 Plan - [...] Code Off vis,est,level 3 Diagnoses Atherosclerosis of [place] coronary a rtery of [place] heart without angina pectoris I25.10 [place] vs. transplanted heart: [place] heart Essential hypertension I10 Hypertension type: essential hypertension Pure hypercholesterolemia E78.00; E7 8.0 Hyperlipidemia type: pure hypercholesterolemia Coding Level of Care Code Off vis,est,level 3 Diagnoses Atherosclerosis of [place] coronary artery of [place] heart without angina pectoris I25.10 [place] vs. transplanted heart: [place] heart Essential hypertension I10 Hypertension type: essential hypertension Pure hypercholesterolemia E78.00; E78.0 Hyperlipidemia type: pure hypercholesterolemia 1055 <Electronically signed by Dana Matute PA> Date Dana JONES 10/24/17 1241<Electronically maicol d by Pacheco James MD> Cosigner Signature: Date (if applicable) Pacheco James MD CC: Catherine Madrigal DO 24-Oct-2017 Cardiology Visit Report Result: Comments: See Note; NOTES: [facility] [address] [place] [address] OFFICE VISIT Date of Service: 10/23/17 MR#: [id number] Acct: [id number] Name: RICKI BHARDWAJ ep #: [id number] : 1945 Provider: Dana Matute Age/Sex: 72/M Location: [facility] Status: Signed HPI HPI Details: RICKI [...] Lt brachial Intake Visit Reasons: 7 M Safety Associate Required: No Ac companied by: None Is [...] (Chronic) Hyperlipidemia (Chronic) Atherosclerotic heart disease of [place] coronary artery without angina pectoris (Chronic) buttermaker use of drug (Chronic) Surgical History Postsurgical [...] insufficiency. Assessment AND Plan 1. Atherosclerosis of [place] coronary artery of [place] heart without angina pectoris I25.10 Plan - [...] Code Off vis,est,level 3 Diagnoses Atherosclerosis of [place] coronary a rtery of [place] heart without angina pectoris I25.10 [place] vs. transplanted heart: [place] heart Essential hypertension I10 Hypertension type: essential hypertension Pure hypercholesterolemia E78.00; E7 8.0 Hyperlipidemia type: pure hypercholesterolemia Coding Level of Care Code Off vis,est,level 3 Diagnoses Atherosclerosis of [place] coronary artery of [place] heart without angina pectoris I25.10 [place] vs. transplanted heart: [place] heart Essential hypertension I10 Hypertension type: essential hypertension Pure hypercholesterolemia E78.00; E78.0 Hyperlipidemia type: pure hypercholesterolemia 1055 <Electronically signed by Dana JONES> Date Dana JONES 10/24/17 1241<Electronically maicol d by Pacheco James MD> Cosigner Signature: Date (if applicable) Pacheco James MD CC: Catherine Madrigal DO 29-Dec-2015 ELECTROCARDIOGRAM, COMPLETE (ECG) (91001) Comments: sinus reyna -no acute changes Result: [MEASUREMENTS ANALYSIS] Date of Test: 12/29/2015 09:54:20; Heart Rate: 59; UT Interval: 176; QRS: 102; QT Interval: 408; Corrected QT Interval (QTc): 407; P Wave [place]: 23; QRS Wave [place]: 11; T Wave [place] : 15; Blood Pressure: 148/84 [ECG DIAGNOSTIC STATEMENTS] Date of Test: 12/29/2015 09:54:20; Summary: 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 ABNORMAL 10-Oct-2015 Thyroid Result: Comments: See Note; NOTES: [facility] Imaging Services [address] [place] [address] Verdana 4d Thyroid MR#: [id number] Acct: [id number] Name: RICKI BHARDWAJ Rep # : [id number] : 1945 M 70 From: Franko Julien MD PCP: Catherine Madrigal DO Status: REG CLI Study: Thyroid Date of Exam: 10/10/15 Exam# [id number] Ordering Dr: Catherine Madrigal DO STUDY : [...] Franko Julien MD at 8:04 EST Tel [phone], Service support [phone], CC: Catherine Madrigal DO Rn Hemodialysis Charge: Signed 04-Oct-2015 Echocardiogram Complete Result: Comments: See Note; NOTES: [facility] Cardiovascular Services [address] [place] [address] Echo Complete 10/04/15 0956 MR#: [id number] Acct: [id number] Name: RICKI MERINO Rep #: [id number] : 1945 70 From: Ranjith Dueñas MD Attending Dr: Ranjith Dueñas MD Status: REG CLI Ordering Dr: Ranjith Dueñas MD Date: 10/04/15 Location: [facility] Sex: M C Admitte d: Procedure This [...] Dictated: 10/04/15 0956 Date Transcrib ed: 10/04/157 Rn Hemodialysis Charge: Signed 24-Jun-2015 CR - Individual Treatment Plan Result: Comments: See Note; NOTES: [facility] Cardiac Rehab [address] [place] [address] CR - Individual Treatment Plan MR#: [id number] Acct: [id number] Name: RICKI BHARDWAJ Rep #: [id number] : 1945 70 From: Froilan Chan PCP: [...] Referral to Mental Health, No Referral to [facility] Case Management, No Referral to Physician - [...] modality and prog ress per protocol. 06/24/15 5906 <Electronically signed by Ranjith Dueñas MD> Cosigner Signature: Date Ranjith Dueñas MD CC: Signed 25-May-2015 CR - Individual Treatment Plan Result: Comments: See Note; NOTES: [facility] Cardiac Rehab [address] [place] [address] CR - Individual Treatment Plan MR#: [id number] Acct: [id number] Name: RICKI BHARDWAJ Rep #: [id number] : 1945 70 From: Froilan Chan PCP: [...] Uses Stress Management Skills, No Referral to [facility], No Referral to [facility] Case Management, No Referral to Physician - [...] Treatment Plan Result: Comments: See Note; NOTES: [facility] Cardiac Rehab [address] [place] [address] CR - Individual Treatment Plan MR#: [id number] Acct: [id number] Name: BENTONRICKI Lucian Rep #: [id number] : 1945 69 From: Kamron Wilks PCP: [...] Referral to Mental Health, No Referral to [facility] Case Management, No Referral to [...] Stress Report Result: Comments: See Note; NOTES: [facility] Cardiovascular Services [address] [place] [address] STRESS TEST REPORT 04/05/15 1305 MR#: [id number] Acct: [id number] Name: RICKI ROY Rep #: [id number] : 1945 69 From: Ranjith Dueñas MD [...] changes. Ranjith Dueñas MD T: MARCOS JOB: [id number] 04/06/15 0948 <Electronically maicol d by Ranjith Dueñas MD> Date Ranjith Dueñas MD CC: Catherine Madrigal DO; Ranjith Dueñas MD Date Dictated: 04/05/151304 Date Transcribed: 04/05/151304 Rn Hemodialysis Charge: Signed 06-Apr-2015 Emergency Department Summary Result: Comments: See Note; NOTES: [facility] Medical Records Department [address] [place] [address] Emergency Department Summary MR#: [id number] Acct: [id number] Name: RICKI BHRADWAJ Rep #: [id number] : 1945 69 From: Hong Blair DO PCP: Catherine Madrigal DO Status: [facility] ER DATE OF SERVICE: 03/15/2015 The patient was seen and assessed by Dr. Jose Alejandro and was found to have an acute myocardial infarction. When the patient went to CT scanner to evaluate his head injury, he became more unresponsive and started to have desaturations. He was brought back to [facility] resuscitation bay while Dr. Alejandro was speaking [...] The patient was started on Versed for [facility] er. Please see Dr. Alejandro's dictation for the rest of the ED course and his assessment. Hong Blair DO T: MARCOS JOB: [id number] 04/06/15 0806 <Electronically signed by Hong Blair DO&am p;#62; Date Hong [place] Cosigner Signature (If Indicated): Date CC: Catherine Wick Date Dictated: 03/25/151558 Date Transcribed: 03/25/151558 Rn Hemodialysis Charge: Signed 16-Mar-2015 Emergency Department Summary Result: Comments: See Note; NOTES: [facility] Medical Records Department [address] [place] [address] Emergency Department Summary MR#: [id number] Acct: [id number] Name: RICKI BHARDWAJ Rep #: [id number] : 1945 69 From: Jose Aljeandro MD PCP: Catherine Madrigal DO Status: [facility] ER DATE OF SERVICE: 03/15/2015 METHOD OF [...] causing a lace ration to his right caodaism with this as well. EMS EKG was [...] where he was when he was at [facility]. His GCS is 13. TESTS: [...] C: Pippa Madrigal DO T: NTS JOB: [id number] 03/16/15 0159 <Electronically signed by Jose Alejandro MD> Date Jose Alejandro MD CC: Catherine Germain O Date Dictated: 03/16/157 Date Transcribed: 03/16/157 Rn Hemodialysis Charge: Signed 15-Mar-2015 Brain/Head without Contrast Result: Comments: See Note; NOTES: [facility] Imaging Services [address] [place] [address] CAT Scan Report MR#: [id number] Acct: [id number] Name: RICKI BHARDWAJ Rep #: [id number] : 1945 M 69 From: Jackson Daniel MD PCP: Catherine Madrigal DO Status: REG ER Study: Brain/Head without Contrast Date of Exam: 03/15/15 Exam# [id number] Ordering Dr: Jose Alejandro MD STUDY : [...] at 17:27 EDT , Service suppo rt [phone], CC: Catherine Madrigal DO; Jose Alejandro MD Rn Hemodialysis Charge: Signed 15-Mar-2015 Chest 1 View (Portable) Result: Comments: See Note; NOTES: [facility] Imaging Services [address] [place] [address] Radiology Report MR#: [id number] Acct: [id number] Name: RICKI BHARDWAJ Rep #: [id number] : 1945 M 69 From: Jackson Daniel MD PCP: Catherine Madrigal DO Status: DEP ER Study: Chest 1 View (Portable) Date of Exam: 03/15/15 Exam# [id number] Ordering Dr: Jose Alejandro MD STUDY: X [...] MD at 22:36 EDT , Service support [phone], Fax RAD/Chest 1 View (Portable) IMPRESSION: No acute cardiopulmonary pathology status post intubation Electronically Signed: Jackson Daniel MD at 22:36 EDT , Service support [phone], CC: Catherine Madrigal DO; Jose Alejandro MD Rn Hemodialysis Charge: Signed 07-Dec-2014 Chest PA and Lateral Result: Comments: See Note; NOTES: [facility] Imaging Services [address] [place] [address] Radiology Report MR#: [id number] Acct: [id number] Name: RICKI BHARDWAJ Rep #: [id number] : 1945 M 69 From: Chris Lo MD PCP: Catherine Madrigal DO Status: REG CLI Study: Chest PA and Lateral Date of Exam: 12/07/14 Exam# [id number] Ordering Dr: Suzanne Root STUDY: X-RAY MINNIE [...] MD at 17:48 EDT , Service support [phone], RAD/Chest PA and Lateral IMPRESSION: Stable findings compatible with ch ronic obstructive pulmonary disease. No acute pathology. Electronically Signed: Chris Lo MD at 17:48 EDT , Service support [phone], C C: Suzanne Root; Catherine Madrigal DO Rn Hemodialysis Charge: Signed 04-Nov-2013 Chest PA and Lateral Result: Comments: See Note; NOTES: [facility] Imaging Services [address] [place] [address] Radiology Report MR#: [id number] Acct: [id number] Name: RICKI BHARDWAJ Rep #: [id number] : 1945 M 68 From: Angel Davis DO PCP: Catherine Madrigal DO Status: REG CLI Study: Chest PA and Lateral Date of Exam: 11/04/13 Exam# [id number] Ordering Dr: Catherine Madrigal DO STUDY: X [...] D.O. 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 Comments: Quit smoking February 2015 following heart attack Status: Active Smoking Status Name Dates Details Former smoker Current every day smoker Vital Signs Date Test Result Details 34-Pgj-405096:10 Temperature 97.6 f Comments: Method: Temporal Pulse [...] Description Value Details :24 CREATININE FINGERSTICK Comments: [facility] [address] [address] EGFR WB > 60.0000 mL/min (Normal) CREATININE WB 1.0 mg/dL (Normal) Range: 0.70-1.30 50-Hxc-471302:37 Microscopic Examination Comments: PERFORMED BY: [facility] Qbgtae6808 [facility] [id number] Bacteria None seen (Normal) Mucus Threads Present (Normal) Epithelial Cells (non renal) 0-10 {/hpf} (Normal) Range: 0 - 10 RBC 0-2 {/hpf} (Normal) Range: 0 - 2 WBC 0-5 {/hpf} (Normal) Range: 0 - 5 21-Tgg-912093:47 VITAMIN B-12 Comments: PATIENT WAS FASTINGPERFORMED BY: [employer]A [employer] [id number] BY: [facility]6370 [facility] [id number] (CYANOCOBALAMIN) (79189) Vitamin B12 579 pg/mL (Normal) Range: 232-1245 16-Sxs-569784:47 TSH (53781) Comments: PATIENT WAS FASTINGPERFORMED BY: [employer]A [employer] [id number] BY: [employer] Ytfvkj9776 [facility] [id number] TSH 0.979 {uIU/mL} (Normal) Range: 0.450-4.500 99-Emw-032301:37 URINALYSIS, W/ MICRO (67334) Comments: PERFORMED BY: [employer] [facility] [id number] Microscopic Examination See below: (Normal) Comments: Microscopic was indicated and was performed. Microscopic Examination MICRON (Normal) Comments: Microscopic follows if indicated. Nitrite, Urine Negative (Normal) Urobilinogen,Semi-Qn 0.2 mg/dL (Normal) Range: 0.2-1.0 Bilirubin Negative (Normal) Occult Blood Negative (Normal) Ketones Negative (Normal) Glucose Negative (Normal) Protein Negative (Normal) WBC Esterase Negative (Normal) Appearance Clear (Normal) Urine-Color Yellow (Normal) pH 6.0 (Normal) Range: 5.0-7.5 Specific [place] 1.018 (Normal) Range: 1.005-1.030 42-Fcp-962119:37 MICROALBUMIN: CREATININE RATIO Comments: PERFORMED BY: [employer] Xsuqhe6809 [facility] [id number] (49011) AND (96327) Alb/Creat Ratio 7.5 {mg/g_creat} (Normal) Range: 0.0-30.0 Albumin, Urine 8.7 ug/mL (Normal) Creatinine, Urine 116.0 mg/dL (Normal) 19-Xps-404066:47 METABOLIC PANEL, Comments: PATIENT WAS FASTINGPERFORMED BY: TELA BioRehabilitation Hospital of South JerseyCdfxoemdvf2[address] [id number] BY: [facility]6370 [facility] [id number] COMPREHENSIVE (68982) ALT (SGPT) 12 [iU]/L (Normal) Range: 0-44 [...] 8-27 Glucose 78 mg/dL (Normal) Range: 65-99 31-Coj-635416:47 LIPOPROTEIN, BLD, BY NMR Comments: PATIENT WAS FASTINGPERFORMED BY: [employer]ELA [employer] [id number] BY: DOROTHY LabCoChristian Health Care CenterTldqvv7567 [facility] [id number] (09938) LP-IR Score 87 (Abnormal) Comments: INSULIN RESISTANCE MARKER <--Insulin Sensitive Insulin Resistant--> Percentile in Reference PopulationInsulin Resistance ScoreLP-IR Score Low 25th 50th 75th High <27 27 45 63 >63LP-IR Score is inaccurate if patient is non-fasting. .The LP-IR score is a laboratory developed i [facility] that has beenassociated with insulin resistance and [...] were developed and their performance characteristicsdetermined by [employer]. These assays have not been cleared by [...] 1600 - 2000 Very High > 2000 52-Fin-601073:47 CBC W/AUTO DIFF WBC Comments: PATIENT WAS FASTINGPERFORMED BY: BN [facility] [address] [id number] BY: CB [facility] Dvggvl7977 [facility] [id number] (34973) Immature Grans (Abs) 0.0 {x10E3/uL} (Normal) Range: [...] 4.14-5.80 WBC 7.6 {x10E3/uL} (Normal) Range: 3.4-10.8 16-Qfp-904879:34 HgA1C , Office (89683) HgA1C , Office 5.2 % (Normal) Range: 4.6 - 7.1 69-Jtx-491841:34 Blood Glucose , Office (98962) Blood Glucose , Office 89 (Normal) 0-Hfa-369559:44 Microscopic Examination Comments: PATIENT WAS FASTINGPERFORMED BY: [employer] [id number] BY: [employer] Grwrjg2497 [facility] [id number] Bacteria None seen (Normal) Mucus Threads Present (Normal) Epithelial Cells (non renal) 0-10 {/hpf} (Normal) Range: 0 - 10 RBC None seen {/hpf} (Normal) Range: 0 - 2 WBC 0-5 {/hpf} (Normal) Range: 0 - 5 9-Cjd-732955:44 CALCIFIDIOL (55020) VIT D Comments: PATIENT WAS FASTINGPERFORMED BY: [employer] [id number] BY: [employer]6370 [facility] [id number] 25 Vitamin D, 25-Hydroxy 25.7 ng/mL (Abnormal) Range: 30.0-100.0 Comments: Vitamin D deficiency has been defined by the [place] of[place]icine and an Endocrine Society practice guideline as alevel of serum 25-OH vitamin D less than 20 ng/mL (1,2).The Endocrine Society went on to further define vitamin Dinsufficiency as a level between 21 and 29 ng/mL (2).1. IOM ([place] of Medicine). 2010. Dietary reference intakes for calcium and D. [place]: The National Academies Press.2. Luca MF, Elena NC, Vini ALVAREZ, et al. Evaluation, treatment, and prevention of vitamin D deficiency: an Endocrine Society clinical practice guideline. JCEM. 2010; 96(7):1911-30. 9-Liv-092764:44 VITAMIN B-12 (CYANOCOBALAMIN) Comments: PATIENT WAS FASTINGPERFORMED BY: [employer]A [employer] [id number] BY: [employer] RoadDublin [place] [id number] (50687) Vitamin B12 362 pg/mL (Normal) Range: 232-1245 6-Zci-701705:44 TSH (76562) Comments: PATIENT WAS FASTINGPERFORMED BY: [employer] [id number] BY: [employer]70 Bishop RoadDublin [place] [id number] TSH 0.957 {uIU/mL} (Normal) Range: 0.450-4.500 9-Ibk-601396:44 URINALYSIS, W/ MICRO Comments: PATIENT WAS FASTINGPERFORMED BY: [employer] [id number] BY: [employer] RoadDublin [place] [id number] (64184) Microscopic Examination See below: (Normal) Comments: Microscopic was indicated and was performed. Microscopic Examination MICRON (Normal) Comments: Microscopic follows if indicated. Nitrite, Urine Negative (Normal) Urobilinogen,Semi-Qn 0.2 mg/dL (Normal) Range: 0.2-1.0 Bilirubin Negative (Normal) Occult Blood Negative (Normal) Ketones Negative (Normal) Glucose Negative (Normal) Protein Negative (Normal) WBC Esterase Negative (Normal) Appearance Clear (Normal) Urine-Color Yellow (Normal) pH 7.5 (Normal) Range: 5.0-7.5 Specific [place] 1.018 (Normal) Range: 1.005-1.030 3-Pkj-894558:44 MICROALBUMIN: CREATININE Comments: PATIENT WAS FASTINGPERFORMED BY: [employer]A [employer] [id number] BY: [employer]9828 Bishop RoadDublin [place] [id number] RATIO (11694) AND (63112) Alb/Creat Ratio 8.8 {mg/g_creat} (Normal) Range: 0.0-30.0 Albumin, Urine 8.0 ug/mL (Normal) Creatinine, Urine 91.2 mg/dL (Normal) 1-Xbt-665480:44 METABOLIC PANEL, Comments: PATIENT WAS FASTINGPERFORMED BY: TELA BioRehabilitation Hospital of South JerseyEyhidvntop6[address] [id number] BY: [facility]6370 [facility] [id number] COMPREHENSIVE (93320) ALT (SGPT) 9 [iU]/L (Normal) Range: 0-44 [...] 8-27 Glucose 74 mg/dL (Normal) Range: 65-99 3-Orl-205303:44 LIPOPROTEIN, BLD, BY NMR Comments: PATIENT WAS FASTINGPERFORMED BY: [employer]A [employer] [id number] BY: DOROTHY LabCoChristian Health Care CenterVcsbuj6606 [facility] [id number] (41940) LP-IR Score 77 (Abnormal) Comments: INSULIN RESISTANCE MARKER <--Insulin Sensitive Insulin Resistant--> Percentile in Reference PopulationInsulin Resistance ScoreLP-IR Score Low 25th 50th 75th High <27 27 45 63 >63LP-IR Score is inaccurate if patient is non-fasting. .The LP-IR score is a laboratory developed i [facility] that has beenassociated with insulin resistance and [...] were developed and their performance characteristicsdetermined by [employer]. These assays have not been cleared by [...] 1600 - 2000 Very High > 2000 1-Lts-370723:44 CBC W/AUTO DIFF WBC Comments: PATIENT WAS FASTINGPERFORMED BY: BN [facility] [address] [id number] BY: CB [facility] Zimpgd7748 [facility] [id number] (14856) Immature Grans (Abs) 0.0 {x10E3/uL} (Normal) Range: [...] 4.14-5.80 WBC 9.2 {x10E3/uL} (Normal) Range: 3.4-10.8 7-Pwi-573795:44 PSA (PROSTATE SPECIFIC Comments: PATIENT WAS FASTINGPERFORMED BY: BN [facility] Bxxsslltky68[address] [id number] BY: CB [facility] Qchbgr6921 [facility] [id number] ANTIGEN) (V76.44) Prostate Specific Ag, 0.9 ng/mL (Normal) Range: 0.0-4.0 Serum Comments: JoostIA methodology. .According to the [place] [employer], Serum PSA shoulddecrease and remain at undetectable levels after radicalprostatectomy. The AUA defines biochemical recurrence as an initialPSA value 0.2 ng/mL or greater followed by a subsequent confirmatoryPSA value 0.2 ng/mL or greater.Values obtained with d ifferent assay methods or kits cannot be usedinterchangeably. Results cannot be interpreted as absolute evidenceof the presence or absence of malignant disease. 92-Dpb-24319:27 Lipid Profile Comments: Order Date: 05/15/17Order Info: [id number] - *Hepatic Function PanelOrder Info: [id number] - *Lipid Profile CC PCPComments: 12 hours fasting, may have water.[facility] Zksptjhpco[address] [place], [address] VLDL 20 mg/dL (Normal) Range: 5-40 LDL [...] 200-240 mg/dL Borderline >240 mg/dL High Risk 17-Jil-66335:27 Liver Profile Comments: Order Date: 05/15/17Order Info: 0788-1 - *Hepatic Function PanelOrder Info: 57844-7 - *Lipid Profile CC PCPComments: 12 hours fasting, may have water.[facility] [address] [place], [place], [id number] D BILI 0.12 mg/dL (Normal) Range: 0.00-0.30 T BILI 0.40 mg/dL (Normal) Range: 0.20-1.00 ALT 22 U/L (Normal) Range: 16-61 Comments: Please note revised ALT reference range kvftnhcum72/28/2018. ALK P 96 U/L (Normal) Range: 45-117 AST 17 U/L (Normal) Range: 15-37 GLOB 3.3 g/dL (Normal) Range: 2.2-4.2 ALB 3.8 g/dL (Normal) Range: 3.2-5.0 T PROT 7.1 g/dL (Normal) Range: 6.4-8.2 8-Xic-593245:28 THROAT CULTURE (47979) Comments: PATIENT NOT FASTINGPERFORMED BY: [facility] Yqviod1208 [facility] [id number] Information: SRC:TH Result 1 RRF (Normal) Comments: Routine respiratory thomas Upper Respiratory Culture Final report (Normal) 66-Ykk-32624:26 Lipid Profile Comments: Order Date: 04/22/17Order Info: 0788-1 - *Hepatic Function PanelOrder Info: 74875-7 - *Lipid Profile CC PCPComments: 12 hours fasting, may have water.[facility] [address] [place], [place], [address] VLDL 22 mg/dL (Normal) Range: 5-40 LDL [...] Info: 0788-1 - *Hepatic Function PanelOrder Info: 34126-8 - *Lipid Profile CC PCPComments: 12 hours fasting, may have water.[facility] [address] [place], [place], [address] D BILI 0.19 mg/dL (Normal) Range: 0.00-0.30 T BILI 0.70 mg/dL (Normal) Range: 0.20-1.00 ALT 22 U/L (Normal) Range: 12-78 ALK P 87 U/L (Normal) Range: 45-117 AST 15 U/L (Normal) Range: 15-37 GLOB 3.1 g/dL (Normal) Range: 2.3-3.5 ALB 3.7 g/dL (Normal) Range: 3.4-5.0 T PROT 6.8 g/dL (Normal) Range: 6.4-8.2 66-Cxb-767186:34 PSA,Total - Annual Screen Comments: [facility] [address] [place], [place], [address] PSA,TOT SCREEN 1.88 ng/mL (Normal) Range: 0.00-4.00 Comments: This test was performed using the TPSA assay method for theBeth Israel Deaconess Medical Centersion chemistry system. Values obtained with differentassay methods cannot be used interchangably.When changing PSA assays in the course of monitoring apatient, additional sequential testing should be carriedout to confirm baseline values. 4-Bfj-778045:28 PT (PROTHROMBIN TIME) (74452) Comments: PATIENT NOT FASTINGPERFORMED BY: [facility]Co[facility] CenterTlpzdr9913 [facility] [id number] Prothrombin Time 10.4 {sec} (Normal) Range: 9.1-12.0 INR 1.0 (Normal) Range: 0.8-1.2 Comments: Reference interval is for non-anticoagulated patients. . Suggested INR therapeutic range for Vitamin K anta gonist therapy: Standard Dose (moderate intensity therapeutic range): 2.0 - 3.0 Higher intensity therapeutic range 2.5 - 3.5 4-Hbj-394094:28 CBC, Platelets & Auto Diff Comments: PATIENT NOT FASTINGPERFORMED BY: [facility]Co[facility] CenterPztszq4422 [facility] [id number] Information: [id number] (17291) Immature Grans (Abs) 0.0 {x10E3/uL} (Normal) Range: [...] 4.14-5.80 WBC 8.4 {x10E3/uL} (Normal) Range: 3.4-10.8 1-Nys-296940:28 Metabolic Panel, Basic (33148) Comments: PATIENT NOT FASTINGPERFORMED BY: CB [facility] Dspmys9383 [facility] [id number] Calcium, Serum 8.8 mg/dL (Normal) Range: 8.6-10.2 [...] mg/dL (Normal) Range: 65-99 01-Jun-20167:16 Urinalysis, Office (71089) UA - LEUKOCYTE ESTERASE Negative (Normal) UA - NITRITE Negative (Normal) URINE UROBILINGN NELSON TIMED Normal mg/dL (Normal) UA - PROTEIN Negative mg/dL (Normal) UA - PH 7.0 (Normal) UA - BLOOD Non Hemolyzed Moderate (Normal) UA - SPECIFIC GRAVITY 1.010 (Normal) UA - KETONES Negative mg/dL (Normal) UA - BILIRUBIN Negative (Normal) UA - GLUCOSE Negative (Normal) 38-Lkq-733152:07 CBC-Complete Blood Cnt No Diff Comments: [facility] [address] [place], [address] MPV 10.2 fL (Normal) Range: 6.2-12.0 PLT [...] (Normal) Range: 4.4-11.0 :39 HgA1C , Office (18236) HgA1C , Office 5.2 % (Normal) Range: 4.6 - 7.1 :39 Blood Glucose , Office (49894) Blood Glucose , Office 81 (Normal) :18 Microscopic Examination Comments: PATIENT WAS FASTINGPERFORMED BY: Beatrobo [facility] [id number] Bacteria None seen (Normal) Mucus Threads Present (Normal) Crystal Type Calcium Oxalate (Normal) Crystals Present (Abnormal) Epithelial Cells (non renal) 0-10 {/hpf} (Normal) Range: 0 - 10 RBC 0-2 {/hpf} (Normal) Range: 0 - 2 WBC 0-5 {/hpf} (Normal) Range: 0 - 5 :18 TSH (23361) Comments: PATIENT WAS FASTINGPERFORMED BY: [facility] [id number] TSH 0.790 {uIU/mL} (Normal) Range: 0.450-4.500 :18 URINALYSIS, W/ MICRO (70903) Comments: PATIENT WAS FASTINGPERFORMED BY: Virsto Softwareox RoadDublin [place] [id number] Microscopic Examination See below: (Normal) Comments: Microscopic was indicated and was performed. Microscopic Examination MICRON (Normal) Comments: Microscopic follows if indicated. Nitrite, Urine Negative (Normal) Urobilinogen,Semi-Qn 0.2 mg/dL (Normal) Range: 0.2-1.0 Bilirubin Negative (Normal) Occult Blood Negative (Normal) Ketones Negative (Normal) Glucose Negative (Normal) Protein Trace (Normal) WBC Esterase Negative (Normal) Appearance Clear (Normal) Urine-Color Yellow (Normal) pH 6.0 (Normal) Range: 5.0-7.5 Specific [place] 1.028 (Normal) Range: 1.005-1.030 :18 MICROALBUMIN: CREATININE RATIO Comments: PATIENT WAS FASTINGPERFORMED BY: [facility]6370 [facility] [id number] (69964) AND (38941) Microalb/Creat Ratio 7.5 {mg/g_creat} (Normal) Range: 0.0-30.0 Microalbumin, Urine 13.6 ug/mL (Normal) Creatinine, Urine 182.3 mg/dL (Normal) :18 METABOLIC PANEL, COMPREHENSIVE Comments: PATIENT WAS FASTINGPERFORMED BY: [facility]6370 [facility] [id number] (61021) ALT (SGPT) 13 [iU]/L (Normal) Range: 0-44 [...] mg/dL (Normal) Range: 65-99 :18 LIPID PANEL (18857) Comments: PATIENT WAS FASTINGPERFORMED BY: [employer]70 [facility] [id number]; fu 04-05-16 LDL/HDL Ratio 1.8 {ratio_units} (Normal) [...] DIFF WBC Comments: PATIENT WAS FASTINGPERFORMED BY: [employer]sglin6370 [facility] [id number] Information: [id number] (51118) Immature Grans (Abs) 0.0 {x10E3/uL} (Normal) Range: [...] (Normal) Range: 3.4-10.8 :26 HgA1C , Office (31648) HgA1C , Office 5.3 % (Normal) Range: 4.6 - 7.1 :26 Blood Glucose , Office (75465) Blood Glucose , Office 86 (Normal) :36 LIPID PANEL (65054) Comments: PATIENT WAS FASTINGPERFORMED BY: [facility]Co[facility] CenterHgsime5366 [facility] [id number] Information: [id number] LDL/HDL Ratio 1.4 {ratio_units} (Normal) Range: 0.0-3.6 [...] mg/dL (Abnormal) Range: 100-199 :08 LIPID PANEL (47384) Comments: copy to [employer]X FACTORY; PATIENT WAS FASTINGPERFORMED BY: [employer]6370 Rank By SearchFormerly [facility] [id number]; apt. 06-23-15 LDL/HDL Ratio 1.7 {ratio_units} (Normal) [...] METABOLIC PANEL, Comments: PATIENT WAS FASTINGPERFORMED BY: [employer]6370 [facility] [id number] Information: [id number] COMPREHENSIVE (94186) ALT (SGPT) 13 [iU]/L (Normal) Range: 0-44 [...] Glucose, Serum 93 mg/dL (Normal) Range: 65-99 52-Rpp-826971:54 Basic Metabolic Profile (BMP) Comments: Serial Specimen #1, #2 or #3? 1'TROP' Serial specimen #1, #2, #3, or #4: 1Test performed at:[facility] [address] [place] [address] GAP 5 (Normal) Range: 5-15 CO2 29.0 [...] :54 CBC W/Diff, Automated Comments: Test performed at:[facility] [address] [place] [address] ; Ordered by another doctor Absolute Lymph [...] #1, #2, #3, or #4: 1Test performed at:[facility] [address] [place], [place] [address] CPKMB 1.0 ng/mL (Normal) Range: 0.0-5.0 Comments: CK-MB and RI Interpretation MB Relative Index Non-AMI <or= 5 NA Indeterminate > 5 <or= 4 AMI > 5 > 4 CPK TOTAL 101 U/L (Normal) Range: 39-308 82-Ukn-679011:54 Troponin-I Comments: Serial Specimen #1, #2 or #3? 1'TROP' Serial specimen #1, #2, #3, or #4: 1Test performed at:[facility] [address] [place], [place] [address] TROPONIN-I < 0.02 ng/mL (Normal) Comments: TROPONIN-I EXPECTED VALUES <0.05 NEGATIVE 0.06 - 0.59 AT RISK OF WA > OR = 0.60 SUGGEST WA 81-Vam-557787:33 Metabolic Panel, Basic Comments: PATIENT NOT FASTINGPERFORMED BY: [place] [id number] (07937) Calcium, Serum 9.1 mg/dL (Normal) Range: 8.6-10.2 [...] Glucose, Serum 92 mg/dL (Normal) Range: 65-99 31-Gkk-801556:33 PT (Prothrobim Time) (96376) Comments: PATIENT NOT FASTINGPERFORMED BY: [place] [id number] Prothrombin Time 10.1 {sec} (Normal) Range: 9.1-12.0 INR 1.0 (Normal) Range: 0.8-1.2 Comments: Reference interval is for non-anticoagulated patients. . Suggested INR therapeutic range for Vitamin K anta gonist therapy: Standard Dose (moderate intensity therapeutic range): 2.0 - 3.0 Higher intensity therapeutic range 2.5 - 3.5 99-Yix-093264:33 CBC, Platelets & Auto Comments: PATIENT NOT FASTINGPERFORMED BY: [facility] Nqimxy0912 [facility] [id number] Information: [id number] Diff (69901) Immature Grans (Abs) 0.0 {x10E3/uL} (Normal) Range: [...] 4.14-5.80 WBC 9.6 {x10E3/uL} (Normal) Range: 3.4-10.8 56-Aql-624337:07 TSH (30864) Comments: PATIENT NOT FASTINGPERFORMED BY: [facility]6370 [facility] [id number] TSH 1.090 {uIU/mL} (Normal) Range: 0.450-4.500 43-Ray-463746:07 CBC, Platelets & Auto Comments: PATIENT NOT FASTINGPERFORMED BY: [facility]6370 [facility] [id number] Information: [id number] Diff (64036) Immature Grans (Abs) 0.0 {x10E3/uL} (Normal) Range: [...] 4.14-5.80 WBC 8.6 {x10E3/uL} (Normal) Range: 3.4-10.8 02-Nde-149052:07 Metabolic Panel, Comprehensive Comments: PATIENT NOT FASTINGPERFORMED BY: DOROTHY [facility] Bzlhsb0362 [facility] [id number] (46794) ALT (SGPT) 15 [iU]/L (Normal) Range: 0-44 [...] Glucose, Serum 80 mg/dL (Normal) Range: 65-99 4-Vho-354915:08 METANEPHRINES - URINE (50201) Comments: PATIENT NOT FASTINGPERFORMED BY: MARIA EUGENIA [facility] Nemrjheoon4083 [facility] [id number] Metanephrine, U,24hr 135 {ug/24_hr} (Normal) Range: 45-290 Comments: (Hypertensive) >17 years 11 months: 35 - 460 Metanephrine, Ur 82 ug/L (Normal) Normetanephr.,U,24h 343 {ug/24_hr} (Normal) Range: 82-500 Comments: (Hypertensive) >17 years 11 months: 110 - 1050 Normetanephrine, Ur 208 ug/L (Normal) 8-Czb-543143:08 CATECHOLAMINES TOTAL, URINE Comments: PATIENT NOT FASTINGPERFORMED BY: TELA [place] [address] [facility] [id number] Information: SRC:LEANNA [id number] START 4@6:10AM 1,650ML FINISH 05/28/14@6: (62825) Dopamine, Ur, 24hr 117 {ug/24_hr} (Normal) Range: 0-510 Dopamine, Urine 71 ug/L (Normal) Norepinephrine,U,24h 51 {ug/24_hr} (Normal) Range: 0-135 Norepinephrine, Ur 31 ug/L (Normal) Epinephrine, U, 24hr 7 {ug/24_hr} (Normal) Range: 0-20 Epinephrine, Urine 4 ug/L (Normal) 2-Gwn-685633:08 URINE VMA (89646) Comments: PATIENT NOT FASTINGPERFORMED BY: [employer]2 MedtechAndre [place] [address] [facility] [id number] VMA, Urine, 24hr 3.1 {mg/24_hr} (Normal) Range: 0.0-7.5 VMA, Urine 1.9 mg/L (Normal) 68-Etb-851325:47 Microscopic Examination Comments: PATIENT WAS FASTINGPERFORMED BY: [employer] Advanced SystemsFormerly [facility] [id number] Bacteria Few (Normal) Mucus Threads Present (Normal) Epithelial Cells (non renal) 0-10 {/hpf} (Normal) Range: 0 - 10 RBC 0-3 {/hpf} (Normal) Range: 0 - 3 WBC 0-5 {/hpf} (Normal) Range: 0 - 5 30-Vps-29189:42 PSA (PROSTATE SPECIFIC Comments: PATIENT WAS FASTINGPERFORMED BY: [facility] [id number] ANTIGEN) (V76.44) Prostate Specific Ag, 1.5 ng/mL (Normal) Range: 0.0-4.0 Serum Comments: [place] ECLIA methodology. .According to the [place] [employer] Association, Serum PSA shoulddecrease and remain [...] of malignant disease. :42 Vitamin D Hydroxy (26346) Comments: PATIENT WAS FASTINGPERFORMED BY: [employer] Eqtrkx4497 [facility] [place] [id number] Vitamin D, 25-Hydroxy 40.9 ng/mL (Normal) Range: 30.0-100.0 Comments: Vitamin D deficiency has been defined by the [place] of[place]icine and an Endocrine Society practice guideline as alevel of serum 25-OH vitamin D less than 20 ng/mL (1,2).The Endocrine Society went on to further define vitamin Dinsufficiency as a level between 21 and 29 ng/mL (2).1. IOM ([place] of Medicine). 2010. Dietary reference intakes for calcium and D. [place]: The National Academies Press.2. Luca MF, Elena NC, Vini ALVAREZ, et al. Evaluation, treatment, and prevention of vitamin D deficiency: an Endocrine Society clinical practice guideline. JCEM. 2010; 96(7):1911-30. :42 TSH (37250) Comments: PATIENT WAS FASTINGPERFORMED BY: [employer] LabAudioTriprp Djrmet0674 [facility] [place] [id number] TSH 1.150 {uIU/mL} (Normal) Range: 0.450-4.500 :42 URINALYSIS, W/ MICRO (57109) Comments: PATIENT WAS FASTINGPERFORMED BY: [employer] [facility] Jxzpmy4300 [facility] [place] [id number] Microscopic Examination See below: (Normal) Nitrite, Urine Negative (Normal) Urobilinogen,Semi-Qn 0.2 mg/dL (Normal) Range: 0.0-1.9 Bilirubin Negative (Normal) Occult Blood Negative (Normal) Ketones Negative (Normal) Glucose Negative (Normal) Protein Negative (Normal) WBC Esterase Trace (Abnormal) Appearance Clear (Normal) Urine-Color Yellow (Normal) pH 6.5 (Normal) Range: 5.0-7.5 Specific [place] 1.011 (Normal) Range: 1.005-1.030 :42 MICROALBUMIN: CREATININE RATIO Comments: PATIENT WAS FASTINGPERFORMED BY: [employer]70 [facility] HospitalMotionDSPFormerly [facility] [id number] (67201) AND (58794) Microalb/Creat Ratio 17.6 {mg/g_creat} (Normal) Range: 0.0-30.0 Microalbumin, Urine 13.2 ug/mL (Normal) Range: 0.0-17.0 Creatinine, Urine 75.1 mg/dL (Normal) Range: 22.0-328.0 :42 METABOLIC PANEL, COMPREHENSIVE Comments: PATIENT WAS FASTINGPERFORMED BY: [employer]70 Rank By SearchFormerly [facility] [id number] (87512) ALT (SGPT) 13 [iU]/L (Normal) Range: 0-44 [...] mg/dL (Normal) Range: 65-99 :42 LIPID PANEL (90375) Comments: PATIENT WAS FASTINGPERFORMED BY: [employer]70 [facility] [id number] LDL/HDL Ratio 3.5 {ratio_units} (Normal) Range: 0.0-3.6 [...] MANUAL DIFF Comments: PATIENT WAS FASTINGPERFORMED BY: [employer]70 [facility] [id number] Information: [id number] (32810) Immature Grans (Abs) 0.0 {x10E3/uL} (Normal) Range: [...] 4.14-5.80 WBC 8.1 {x10E3/uL} (Normal) Range: 3.4-10.8 2-Bvo-654130:47 CBC with manual diff Comments: PATIENT NOT FASTINGPERFORMED BY: [facility] Fjddrg4778 [facility] [id number] Information: [id number] (59952) Immature Grans (Abs) 0.0 {x10E3/uL} (Normal) Range: [...] 4.14-5.80 WBC 6.8 {x10E3/uL} (Normal) Range: 4.0-10.5 57-Heg-067132:21 Metabolic Panel, Comprehensive Comments: PATIENT NOT FASTINGPERFORMED BY: [facility] Ifzicv4246 [facility] [id number] (37930) ALT (SGPT) 16 [iU]/L (Normal) Range: 0-44 [...] Glucose, Serum 81 mg/dL (Normal) Range: 65-99 56-Mbq-765778:21 CBC, Platelets & Auto Comments: PATIENT NOT FASTINGPERFORMED BY: [facility]CoChristian [facility] Care CenterEwmwav8589 [facility] [id number] Information: [id number] Diff (52833) Immature Grans (Abs) 0.0 {x10E3/uL} (Normal) Range: [...] 4.14-5.80 WBC 6.3 {x10E3/uL} (Normal) Range: 4.0-10.5 84-Cir-467360:09 THYROID Radiology Report See Note (Normal) Comments: [...] Julien M.D.May 20, 2012 at 3:49:16 PM [id number] Signed GP/ GP If you are the referring physician and would like to consult with theradiologist who provided this interpretation, please contact Denton Chau at [phone]. If this radiologist is unava ilable, youwill be directed to another radiologist to assist. If you are a patient with a question regarding this report, pleasecontactyour referring physician directly. Professional Interpretation Prov ided By: [employer], Phone , These documents contain legally protected [...] 05/20/12 1556 Sign by: Franko Julien MD 5-Tkl-161483:48 LIPID PANEL (96925) Comments: PATIENT WAS FASTINGPERFORMED BY: [facility]Co[facility] Care CenterPlsogp2979 [facility] [id number] Information: [id number],2ND ORDER NO DRAW F EE LDL Cholesterol Calc 103 mg/dL (Abnormal) Range: 0-99 LDL/HDL Ratio 3.2 {ratio_units} (Normal) Range: 0.0-3.6 HDL Cholesterol 32 mg/dL (Abnormal) Comments: According to ATP-III Guidelines, HDL-C >59 mg/dL is considered anegative risk factor for CHD. VLDL Cholesterol Tone 33 mg/dL (Normal) Range: 5-40 Triglycerides 163 mg/dL (Abnormal) Range: 0-149 Cholesterol, Total 168 mg/dL (Normal) Range: 100-199 0-Zhb-664515:48 CALCIFEDIOL (08074) Comments: PATIENT WAS FASTINGPERFORMED BY: [facility]Co[facility] Care CenterXubbmv4142 [facility] [id number] Vitamin D, 25-Hydroxy 68.9 ng/mL (Normal) Range: 30.0-100.0 Comments: Vitamin D deficiency has been defined by the [place] of[place]icine and an Endocrine Society practice guideline as alevel of serum 25-OH vitamin D less than 20 ng/mL (1,2).The Endocrine Society went on to further define vitamin Dinsufficiency as a level between 21 and 29 ng/mL (2).1. IOM ([place] of [employer]). 2010. Dietary reference intakes for calcium and D. [place]: The National Academies Press.2. Luca MF, Elena NC, Vini ALVAREZ, et al. Evaluation, treatment, and prevention of vitamin D deficiency: an Endocrine Society clinical practice guideline. JCEM. 2010; 96(7):1911-30. 84-Ypt-36244:33 CHEST, PA AND LATERAL Radiology Report See [...] seen. Signed:Bear Julien M.D.2012 at 2:44:05 PM [id number] Signed GP/GP If you are the referring physician and would like to consult with theradiologist who provided this interpre tation, please contact Denton Chau at [phone]. If this radiologist is unavailable, youwill be directed to another radiologist to assist. If you are a patient with a question regarding t his report, pleasecontactyour referring physician directly. Professional Interpretation Provided By: [employer], Phone , These documents contain legally protected [...] Microscopic Examination Comments: PATIENT WAS FASTINGPERFORMED BY: TELA [employer] Npssfv3594 [facility] [id number] Bacteria None seen (Normal) Mucus Threads Present (Normal) Epithelial Cells (non renal) 0-10 {/hpf} (Normal) Range: 0 - 10 RBC 0-3 {/hpf} (Normal) Range: 0 - 3 WBC 0-5 {/hpf} (Normal) Range: 0 - 5 :33 TSH (91444) Comments: PATIENT WAS FASTINGPERFORMED BY: TELA Bio Zmeaki0730 [facility] [id number] TSH 0.773 {uIU/mL} (Normal) Range: 0.450-4.500 : URINALYSIS, W/ MICRO (55862) Comments: PATIENT WAS FASTINGPERFORMED BY: [employer]6370 [facility] [id number] Microscopic Examination See below: (Normal) Microscopic Examination MICRON (Normal) Comments: Microscopic follows if indicated. Nitrite, Urine Negative (Normal) Urobilinogen,Semi-Qn 1.0 mg/dL (Normal) Range: 0.0-1.9 Bilirubin Negative (Normal) Occult Blood Negative (Normal) Ketones Negative (Normal) Glucose Negative (Normal) Protein Trace (Normal) WBC Esterase Negative (Normal) Appearance Clear (Normal) Urine-Color Yellow (Normal) pH 6.0 (Normal) Range: 5.0-7.5 Specific [place] 1.019 (Normal) Range: 1.005-1.030 :33 MICROALBUMIN: CREATININE RATIO Comments: PATIENT WAS FASTINGPERFORMED BY: TELA Bio Ngdxmw2407 [facility] [id number] (51730) AND (81655) Microalb/Creat Ratio 3.7 {mg/g_creat} (Normal) Range: 0.0-30.0 Creatinine, Urine 262.2 mg/dL (Normal) Range: 22.0-328.0 Microalbumin, Urine 9.6 ug/mL (Normal) Range: 0.0-17.0 :33 METABOLIC PANEL, COMPREHENSIVE Comments: PATIENT WAS FASTINGPERFORMED BY: DOROTHY [employer]70 [facility] [id number] (21603) ALT (SGPT) 19 [iU]/L (Normal) Range: 0-55 [...] mg/dL (Normal) Range: 65-99 :33 LIPID PANEL (41805) Comments: PATIENT WAS FASTINGPERFORMED BY: [employer]6370 [facility] [id number] LDL/HDL Ratio 3.7 {ratio_units} (Abnormal) Range: 0.0-3.6 [...] 100-199 Comments: Please note reference interval change 30-Eyf-10254:33 CBC WITH MANUAL DIFF Comments: PATIENT WAS FASTINGPERFORMED BY: [facility]Co[facility] Care CenterQrwhoz0477 [facility] [id number] Information: [id number] (87204) Immature Grans (Abs) 0.0 {x10E3/uL} (Normal) Range: [...] SPECIFIC Comments: PATIENT NOT FASTINGPERFORMED BY: DOROTHY LabCo[facility] Care CenterIjgppk1625 Dario Méndezjordan [place] [id number] Information: [id number],2ND ORDER NO DRAW F EE ANTIGEN) (V76.44) Prostate Specific Ag, 0.7 ng/mL (Normal) Range: 0.0-4.0 Serum Comments: [employer] ECLIA methodology. .According to the [place] U[employer] Association, Serum PSA shoulddecrease and remain at undetectable levels after radicalprostatectomy. The AUA defines biochemical recurrence as an initialPSA value 0.2 ng/mL or greater followed by a subsequent confirmatoryPSA value 0.2 ng/mL or greater.Values obtained with d ifferent assay methods or kits cannot be usedinterchangeably. Results cannot be interpreted as absolute evidenceof the presence or absence of malignant disease. 3-Yod-473828:51 CBCD,SMEAR DIFF MACROCYTE 1+ (Normal) RED CELL [...] NEGATIVE CLARITY CLEAR (Normal) COLOR YELLOW (Normal) 3-Mqk-583082:51 LIPID VLDL 35 mg/dL (Normal) Range: 5-40 [...] 200-240 mg/dL Borderline >240 mg/dL High Risk 2-Fha-957947:51 MICROALB:CRE UR MALB:CREAT 23.7 {mg/g_CRE} (Normal) MICROALBUMIN,UR 23.6 mg/L (Normal) UR CREAT 99.5 mg/dL (Normal) 4-Aut-018723:51 TSH 1.15 {uIU/mL} (Normal) Range: 0.358-3.74 95-Bjn-13409:19 THYROID (HP) Radiology Report See Note (Normal) Comments: Exam Number: [id number] LINICAL:Goiter. Bilateral thyroid nodules. ULTRASOUND THYROID TECHNIQUE:Multiple [...] CHOL 172 mg/dL (Normal) Comments: <200 mg/dL Jkaghovla878-738 mg/dL Borderline>240 mg/dL High Risk HDL 34 [...] PSALITO ORDERED EVERYTHING BUT PSA Range: 0.358-3.74 40-Fvt-29571:15 HEPATOBILIARY IMAGING Radiology Report See Note (Normal) Comments: Exam Number: [id number] HEPATOBILIARY SCAN WITH KINEVAC HISTORYThimahsa is a [...] scan with Kinevac. Reported By: FRANKO JULIEN 74-Poy-862639:21 ABDOMEN/PELVIS WITH CONTRAST Radiology Report See Note (Normal) Comments: Exam Number: [id number] CT SCAN OF THE ABDOMEN AND PELVIS [...] fluidat this time. Reported By: FRANKO JULIEN 69-Zdg-06429:49 GALLBLADDER Radiology Report See Note (Normal) Comments: Exam Number: [id number] CLINICAL:Right upper quadrant pain. LIMITED ABDOMINAL ULTRASOUND [...] right kidney. Reported By: JENNY DAMON M.D. 17-Ccf-140076:44 Lipase (25737) Comments: PATIENT NOT FASTINGPERFORMED BY: [facility]6370 [facility] [id number] Lipase, Serum 46 U/L (Normal) Range: 0-59 48-Kjg-100601:44 C-REACT PROT HIGH SENS(hsCRP) Comments: PATIENT NOT FASTINGPERFORMED BY: [facility]Asc[facility]6370 [facility] [id number] (55860) C-Reactive Protein, Cardiac 2.96 mg/L (Normal) Range: 0.00-3.00 Comments: Relative Risk for Future Cardiovascular EventLow <1.00Average 1.00 - 3.00High >3.00 21-Snb-222354:44 Amylase (52879) Comments: PATIENT NOT FASTINGPERFORMED BY: [facility]6370 [facility] [id number] Amylase, Serum 44 U/L (Normal) Range: 31-124 16-Vye-396198:44 CBC WITH MANUAL DIFF Comments: PATIENT NOT FASTINGPERFORMED BY: [facility]6370 [facility] [id number] Information: [id number] ([id number]) Baso (Absolute) 0.1 {x10E3/uL} (Normal) Range: 0.0-0.2 [...] 4.10-5.60 WBC 8.1 {x10E3/uL} (Normal) Range: 4.0-10.5 65-Ele-199764:44 METABOLIC PANEL, COMPREHENSIVE Comments: PATIENT NOT FASTINGPERFORMED BY: [facility] [id number] [facility] [id number] ([id number]) A/G Ratio 1.8 (Normal) Range: 1.1-2.5 Alkaline [...] Glucose, Serum 75 mg/dL (Normal) Range: 65-99 10-Oqz-278143:00 Anaerobic and Aerobic Culture Comments: Clinical Information: SRC:FM LEFT FOREARM PERFORMED BY: DOROTHY [facility] [id number] [facility] [id number] Aerobic Culture Final report (Normal) Anaerobic Culture [...] oxacillin predictssusceptibility or resistance to (a) other vrmo-abbrqvvek-nkpbtjvzk icillins suc h as cloxacillin and dicloxacillin, (b) combinationsof a penicillin and a beta-lactamase inhibitor, and(c) anti-staphylococcal cephalosporins. Routine testing of otherpenicillins, beta-lactam/beta-lacta guerrero inhibitor combinations,cephems, and carbapenems is not advised by the CLSI Standards(C707-S68, 2005). Result 2 Enterobacter cloacae Comments: Heavy growth (Normal) 47-Rve-29431:53 CHEST WITHOUT CONTRAST Radiology Report See Note (Normal) Comments: Exam Number: [id number] CLINICAL:Follow- up lung nodule. CT CHEST WITHOUT [...] previous report. Reported By: JENNY DAMON M.D. 04-Bgw-45386:51 THYROID () Radiology Report See Note (Normal) Comments: Exam Number: [id number] CLINICAL:Goiter. ULTRASOUND THYROID COMPARISON:Thyroid ultrasound dated 02/24/09 [...] significantly changed. Reported By: JENNY DAMON M.D. 9-Svx-081542:15 THYROID Radiology Report See Note (Normal) Comments: Exam Number: [id number] CLINICAL:63-year-old male follow-up nodules seen on CT [...] study recommended. Reported By: RUBÉN OREILLY M.D. 85-Ozn-042177:25 CHEST W/WO CONTRAST Radiology Report See Note (Normal) Comments: Exam Number: [id number] CLINICAL:Cough. Abnormal chest x-ray. CT CHEST WITH [...] thyroid lobe. Reported By: JENNY DAMON M.D. 7-Ipk-989696:22 CHEST, PA AND LATERAL Radiology Report See Note (Normal) Comments: Exam Number: [id number] TWO VIEWS OF THE CHEST HISTORYThe patient [...] be considered. Reported By: VICTORINO VEGA M.D. 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 Indication: CAD (coronary artery disease) Hypertensive [...] disease) CAD (coronary artery disease) : 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 Indication: CAD (coronary artery disease) Controlled [...] mellitus CAD (coronary artery disease) : 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 Indication: CAD (coronary artery disease) CAD [...] disease) CAD (coronary artery disease) : 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 Indication: CAD (coronary artery disease) Hyperlipidemia [...] Hyperlipidemia CAD (coronary artery disease) : 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 Indication: CAD (coronary artery disease) Hypertension, [...] Red Flags Planned Observations HEPATIC FUNCTION PANEL (19260)Indication: Hyperlipidemia On: 96-Oju-235125:51 Request LIPOPROTEIN, BLD, BY NMR (48834)Indication: Hyperlipidemia On: 03-Ehs-269658:51 Request VITAMIN B-12 (CYANOCOBALAMIN) (24418)Indication: Vitamin B12 deficiency On: 73-Dkx-506336:08 Request Rapid Strep Test, Office (01458)Indication: Body aches On: 9-Tdf-081426:10 Request Rapid Flu (87885 x 2)Indication: Body aches On: 4-Olb-641345:10 Request URINALYSIS, W/ MICRO (76713)Indication: Hypertension, essential, benign On: : Request CBC W/AUTO DIFF WBC (09528)Indication: Hypertension, essential, benign On: Request CBC with auto diff (76288)Indication: Controlled diabetes mellitus On: :30 Request MICROALBUMIN: CREATININE RATIO (36668) AND (30172)Indication: Controlled diabetes mellitus On: : Request METABOLIC PANEL, COMPREHENSIVE (07065)Indication: Controlled diabetes mellitus On: : Request LIPID PANEL (07256)Indication: Controlled diabetes mellitus On: : Request HgA1C , Office (05886)Indication: Controlled diabetes mellitus On: : Request TSH (88833)Indication: Anxiety On: :53 Request URINALYSIS, W/ MICRO (70111)Indication: Hypertension, essential, benign On: :53 Request MICROALBUMIN: CREATININE RATIO (75582) AND (08410)Indication: Hypertension, essential, benign On: :53 Request METABOLIC PANEL, COMPREHENSIVE (04299)Indication: Hypertension, essential, benign On: :53 Request LIPID PANEL (12628)Indication: Hypertension, essential, benign On: :53 Request CBC WITH MANUAL DIFF (00299)Indication: Hypertension, essential, benign On: :53 Request T4, FREE (THYROXINE) (35212)Indication: Thyroid nodule On: :31 Request T3, FREE (TRIDOTHYRONINE) (80592)Indication: Thyroid nodule On: : Request TSH (69492)Indication: Thyroid nodule On: : Request URINALYSIS, W/ MICRO (56009)Indication: Hypertension, essential, benign On: : Request MICROALBUMIN: CREATININE RATIO (02617) AND (02251)Indication: Hypertension, essential, benign On: : Request METABOLIC PANEL, COMPREHENSIVE (30852)Indication: Hypertension, essential, benign On: :27 Request LIPID PANEL (90664)Indication: Hypertension, essential, benign On: :27 Request CBC WITH MANUAL DIFF (67036)Indication: Hypertension, essential, benign On: :27 Request BACT CULTURE ANY-ANAEROBIC (20324)Indication: Folliculitis On: 1-Opr-027513:23 Request EDELMIRA CULTURE-OTHER ([id number])Indication: Folliculitis On: 0-Heu-633455:23 Request Planned Encounters Medical; 4 Month FU - On: 28-Aug-2018 9:30 [facility] Catherine Madrigal DO, DO, Kathleen Planned Procedures Flu Vaccine (Quadrivalent) On: 12-Jun-2018 Intent 61692Ag: Keke Mike Comments: Lot #[id number]/30/2019Site-L dltd, IMDose prefilled syringegiven by:ESTHER Boggs reviewed and ABN signed B 12 Injection, 1000 mcg On: 17-Apr-2018 Intent (J3420)By: Jose APARICIO, Comments: 1 ml given im lt arm lot [id number] exp 05/14 Deepa Mathis DOhleen B 12 Injection, 1000 mcg On: 20-Feb-2018 Intent (J3420)By: Visit, Nurse Comments: [id number] exp 11/11 B 12 Injection, 1000 mcg On: 23-Jan-2018 Intent (J3420)By: Jose APARICIO, Comments: Vitamin b12 1000mcg injection lot:exp:L DELT IMpt tolerated well 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,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 Deepa Mathis DOhleen B 12 Injection, 1000 mcg On: 16-Jan-2018 Intent (J3420)By: Florentino Amos Comments: Vitamin b12 1000mcg injection lot:[id number]:05/2019L DELT IMpt tolerated well 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,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 B 12 Injection, 1000 mcg On: 09-Jan-2018 Intent (J3420)By: Jose APARICIO, Comments: Vitamin b12 1000mcg injection lot:[id number]:05/2019L DELT IMpt tolerated well 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,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 Catherine Madrigal DO, Catherine B 12 Injection, 1000 mcg On: 26-Dec-2017 Intent (J3420)By: Jose APARICIO, Comments: Vitamin b12 1000mcg injection lot:[id number]:05/2019L DELT IMpt tolerated well BRUNILDA CHOE DO, Kathleen [place] ([id number])By: On: 19-Dec-2017 Catherine Huerta DO Comments: [id number] [id number]/L arm, IM -- dltdMLONGmlCatherine nuñez DO ELECTROCARDIOGRAM, COMPLETE On: 19-Dec-2017 Intent (ECG) (32536)By: Jose APARICIO, Comments: nsr no acute chg - Catherine Mathis DO B 12 Injection, 1000 mcg On: 19-Dec-2017 Intent (J3420)By: Jose APARICIO, Comments: lot:[id number]:rte:IM left deltoid dose:1ml given by:BRUNILDA Pedro lpn, DO, Kathleen Wax Currettes (51568)By: On: 11-Oct-2016 Intent Maggie WORLEY Bijal Ear Irrigation (71458)By: On: 11-Oct-2016 Intent Bijal Serrano LPN Comments: right ear irrigated with watertolerated well-- used currrette to revomve wax by dr madrigal and denisse butts noted internallymoderate amount light yellow wax removed with some blood residuewax currette used by Denisse Ann CNP Wax Currettes (51710)By: On: 17-Jul-2016 Intent Maggie WORLEY Bijal Ear Irrigation (14182)By: On: 17-Jul-2016 Intent Catherine Madrigal DO Comments: Amount/color removed cerumen:large amt, blackish brown from both earsOUtcome:clearUsed wax curettes:yes and tweezersEar Irrigation done by:Catherine Padilla DO ELECTROCARDIOGRAM, COMPLETE On: 01-Jun-2016 Intent (ECG) (48918)By: Suzanne Root CNP Ultrasound - ThyroidBy: On: 26-Sep-2015 Catherine Huerta DO, DO, Kathleen Flu Vaccine (Quadrivalent) On: 23-Jun-2015 Intent 73173Ah: Catherine Madrigal DO, DO, Kathleen Radiology - ChestBy: Ivett On: 07-Dec-2014 Intent Suzanne DAVIS ELECTROCARDIOGRAM, COMPLETE On: 07-Dec-2014 Intent (ECG) (05128)By: Ivett DAVIS Suzanne Duncan Cartoid DopplerBy: Jose APARICIO, On: 25-May-2014 Intent Catherine Mathis DO Renal Duplex ScanBy: Jose On: 25-May-2014 Intent Catherine APARICIO DOCatherine EKG (56988)By: Jose APARICIO, On: 25-May-2014 Intent Catherine Mathis DO Comments: nsr no acute chg some mild LVH suggested ADMINISTRATION OF On: 04-Nov-2013 Intent PNEUMOCOCCAL VACCINE (G0009)By: Catherine Madrigal DO, DO, Kathleen PNEUM VAC ADLT/IMUMNOSPR, On: 04-Nov-2013 Intent SBC/INTRM (22559)By: Jose Comments: Lot:[id number]:10/11/14Dose:0.5mgRoute:imSite:l armGiven By:Catherine Barr DO, DO, Kathleen Spirometry (42350)By: Jose On: 04-Nov-2013 Intent Catherine APARICIO DO, Comments: great curve and technique -- asx Catherine Radiology - Chest- PA and On: 04-Nov-2013 Intent LatBy: Catherine Madrigal DO, DO, Kathleen EKG (43686)By: Jose APARICIO, On: 04-Nov-2013 Intent Catherine Mathis DO Comments: nsr no acute chg EKG (11995)By: Jose APARICIO, On: 03-Nov-2012 Intent Catherine Mathis DO Comments: nsr no acute ischemic changes Aerosol Treatment (04953)By: On: 03-Nov-2012 Intent Catherine Madrigal DO, DO, Kathleen Eprescribed prescriptions On: 03-Nov-2012 Intent (G8553)By: Catherine Madrigal DO, DO, Kathleen Spirometry (16190)By: Jose On: 08-May-2012 Intent DO, Catherine Madrigal DO, Comments: mild obstruciton -- pt asx didnt want inhlaer Catherine Ultrasound - ThyroidBy: On: 08-May-2012 Intent Jose APARICIO, Catherine Madrigal DO, Catherine Radiology - Chest- PA and On: 08-May-2012 Intent LatBy: Catherine Madrigal DO, DO, Catherine FLU VAC, SPLIT, >3 YEARS, On: 24-Apr-2012 Intent INTRAMUSC (78005)By: Jose Comments: Lot #[id number]/30/13Site-right deltoidgiven by: Kristina Painter LPN DO, Catherine Mathis DO ADMINISTRATION OF INFLUENZA On: 24-Apr-2012 Intent VIRUS VACCINE (G0008)By: Catherine Madrigal DO, DO, Kathleen Eprescribed prescriptions On: 24-Apr-2012 Intent (G8553)By: Denisse Alvarado LPN EKG (42068)By: Jose APARICIO, On: 03-Oct-2011 Intent Catherine Mathis DO Comments: nsr no acute chg Eprescribed prescriptions On: 03-Oct-2011 Intent (G8553)By: Catherine Madrigal DO, DO, Catherine IMMUNIZ ADMNIN, 1 VAC, On: 21-Aug-2010 Intent SNGL/COMBO (00305)By: Jt Comments: Lot #[id number]-LarmDose 0.65mlgiven by:Fidelina Puri LPN [place] ([id number])By: On: 21-Aug-2010 Intent Fidelina Waters LPN TDAP VACCINE >7 IM (12752)By: On: 16-May-2010 Intent Fidelina Waters LPN Comments: Lot #[id number]-4/17/12Sijillian-L armDose0.5mlgiven by:BRUNILDA KEY Ultrasound - ThyroidBy: On: 04-May-2010 Intent Catherine Madrigal DO Comments: please compare to prev us roughly a yr ago Catherine APARICIO EKG (53030)By: Jose APARICIO, On: 04-May-2010 Intent Catherine Mathis [...] DAVIS, On: 08-Feb-2009 Intent Suzanne Duncan Spirometry (18873)By: Ivett On: 08-Feb-2009 Intent Suzanne DAVIS Comments: done-awModerately severe restriction Inhaler Demo (91275)By: Ivett On: 08-Feb-2009 Intent Suzanne DAVIS Comments: doneAW Pulse Oximetry (03901)By: On: 08-Feb-2009 Intent Suzanne Root CNP Comments: 94% Solu- Medrol Injection, 125mg On: 08-Feb-2009 Intent (J2930)By: Suzanne Root CNP Comments: Lot #[id number]/2012Site-left nuhKfpm136xh/2mlgiven by Neville Meier LPN CT - ChestBy: Suzanne Root CNP On: 31-Jan-2009 Intent E Radiology - ChestBy: Ivett On: 31-Jan-2009 Intent Suzanne DAVIS Comments: LEFT PA with NIPPLE MARKERS Aerosol Treatment (94895)By: On: 10-Jan-2009 Intent Suzanne Root CNP Spirometry (16184)By: Jose On: 21-Oct-2006 Intent Catherine APARICIO DO, Comments: NORMAL SPIROMETRY Catherine EKG (64841)By: Jose APARICIO, On: 21-Oct-2006 Intent Catherine Mathis [...] The patient does have durable power of litigation attorney and living will. The patient has noticed lack of energy. 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 Encounter Diagnosis: BMI 27.0-27.9,adult, Current nonsmoker, Annual [...] The patient does have durable power of litigation attorney and living will. The patient [...] patient does not have durable power of litigation attorney. The patient has noticed nothing [...] for Cough[facility]: Nasal Congestion (478.1), Cough (786.2) Comprehensive [...]
--- OUTSIDE RECORDS SUMMARY | 2018-11-18 07:09 | XMS RPT_ITS ---
:1945 Author Organization OHIP Care Team Providers Name Role Phone Catherine Cota DO Attending Unavailable Catherine Cota DO Referring Unavailable Catherine Cota DO Consulting Unavailable Catherine Cota Attending Unavailable Catherine Cota Referring Unavailable Catherine Cota Primary Care Unavailable Dana Wade Attending Unavailable Ranjith Dueñas Attending Unavailable Catherine Cota Primary Care Unavailable Jaymie Gutierrez Attending Unavailable Ranjith Dueñas Attending Unavailable Catherine Cota Referring Unavailable Ranjith Dueñas Attending Unavailable Ranjith Dueñas Referring Unavailable Catherine Cota Primary Care Unavailable Dana Matute Attending Unavailable Deepa Cotahleen Referring Unavailable Deepa Cotahleen Primary Care Unavailable Yessica Siu Attending Unavailable Yessica Siu Referring Unavailable Cipriano, Catherine Primary Care Unavailable Yessica Siu Attending Unavailable Yessica Siu Referring Unavailable Deepa Cotahleen Primary Care Unavailable PROBLEMS PROBLEMS DATE TYPE CONDITION / CODE ATTENDING STATUS SOURCE 09/08/2018 Unknown I25.10 - StephanieRanjith rodriguez Atherosclerotic heart [facility] disease of [facility] coronary artery Repository without angina pectoris / I25.10(ICD-10) 09/08/2018 Unknown Z95.5 - Presence of Dankismonroekiley Ranjith Active [place] coronary angioplasty [facility] graft / Hospital Z95.5(ICD-10) Repository 10/14/2017 Unknown Z79.899 - Other long StephaniemonroeRanjith cao Isauro Singhoster term (current) drug Community therapy / Hospital Z79.899(ICD-10) Repository 10/14/2017 Unknown E78.5 - DankisRanjith rodriguez Active [place] Hyperlipidemia, Community unspecified / Hospital E78.5(ICD-10) Repository PROCEDURES PROCEDURES No Procedure Records FoundRESULTS RESULTS STRESS REPORT Observed: 09/16/2018 Status: F Source: [place] 12:55 PM [facility] REPOSITORY [facility] Cardiovascular Services [address] [place] [address] MR#: [id number] Acct: [id number] Name: RICKI BHARDWAJ Rep #: [id number] : 1945 73 From: Ranjith Dueñas MD Primary Care: Catherine Cota DO Status: REG CLI Ordering Dr: Syeda Edwards Stress Test Report Date: 09/16/2018 Procedure: Stress nuclear imaging study Indications: Chest pain; CAD; PCI Consent: Per the patient Procedure: The patient exercised on a Eder protocol for 7 minutes completing stage I and 1 minute of stage II achieving a peak heart rate of 142 beats per minute (95% predicted maximal heart rate) with a peak blood pressure was 184/92 mmHg and a peak MET capacity of 8 METS. The baseline ECG demonstrated normal sinus rhythm. The peak exercise ECG demonstrated no obvious ECG changes. There were no cardiac dysrhythmias pretest, during exercise, or recovery. The functional capacity was considered good. The patient had no complaint of chest discomfort during exercise or recovery. The examination was discontinued secondary to dyspnea. Impression: 1. Technically adequate (percent predicted maximal heart rate greater than 85%) exercise tolerance test 2. Peak exercise ECG with no obvious ECG changes 3. Nuclear images pending Myocardial perfusion imaging study: Technique: The patient was injected with 11.1 mci of technetium 99 M Cardiolite and subsequently rest SPECT Cardiolite nuclear imaging was obtained in the horizontal long, vertical long, and short axis views. The patient exercised on a Eder protocol for 7 minutes completing stage I and 1 minute of stage II achieving a peak heart rate of 142 beats per minute (95% predicted maximal heart rate) with a peak blood pressure was 84/92 mmHg and a peak MET capacity of 8 METS. The patient was injected with 33.5 mci of technetium 99 M Cardiolite and subsequently stress SPECT Cardiolite nuclear imaging was obtained in the horizontal long, vertical long, and short axis views. A gated Cardiolite study at peak stress was obtained. Interpretation: Rest and stress SPECT Cardiolite nuclear imaging status post realignment, normalization, and attenuation correction, demonstrates at rest areas of extra cardiac/gastrointestinal tracer uptake near the inferior segments which appears to be less prominent following stress. At rest there appears to be relative uniform tracer uptake. Following stress there is notation of an area of diminished tracer uptake in portions of the basal towards mid inferior segments. There is end systolic thickening and brightening. The gated Cardiolite study demonstrates myocardial thickening and normal motion. The reported LVEF is 59%. Impression: 1. Rest and stress SPECT Cardiolite nuclear imaging demonstrate myocardial perfusion changes status post stress demonstrating an area of diminished tracer uptake in portions of the basal to mid inferior segments appearing compatible with an area of stress induced myocardial ischemia. 2. The gated Cardiolite study reports an LVEF of 59%. This note was generated using a voice recognition system and there may be incorrect words, spelling or punctuation that were not noted when reviewing the office note prior to saving. 09/16/18 5002 <Electronically signed by Ranjith Dueñas MD> Date Ranjith Dueñas MD CC: Catherine Cota DO; Ranjith Dueñas MD Date Dictated: 09/16/18 1238 Date Transcribed: 09/16/18 1238 Manager Federal: PM Signed CARDIOLOGY VISIT Observed: 09/08/2018 Status: F Source: [place] REPORT 2:23 PM [facility] [place] [place] REPOSITORY [facility] [address] [place], [place] [address] OFFICE VISIT Date of Service: 09/08/18 MR#: [id number] Acct: [id number] Name: RICKI BHARDWAJ Rep #: [id number] : 1945 Provider: Ranjith Dueñas MD Age/Sex: 73/M [place] [facility] [place] Status: Signed HPI HPI Details: RICKI BHARDWAJ, is a 73 M who presents to the office today for Outpatient cardiovascular followup. He states he has some intermittent left-sided chest dullness/aching sensation. That is not necessarily radiate. It is not necessarily associated with other symptoms such as nausea, emesis, or diaphoresis. There has been no orthopnea or PND or peripheral pitting edema. He has had no near syncope or syncope. He have an ECG in the office today. He remains in sinus rhythm. He has an inferior VA pattern of indeterminate age. He does note that his blood pressure has been mildly up recently. He states he was asked to increase his exercise by his PCP with the hopes that this may helped bring his blood pressure under better control. Otherwise he may need adjustment of his antihypertensive therapy. Intake Vital Signs09/08/18 Height 5 ft 11 in 09/08/18 Weight: 202 lb 09/08/18 Body Mass Index (BMI) 28.1 09/08/18 Blood Pressure 144/84 H Intake Visit Reasons: 9 M FU Allergies No Known Allergies Allergy (Verified 09/08/18 13:40) Medications Aspirin [Aspirin, Baby] 81 mg PO DAILY@0800 04/14/15 [History Confirmed 09/08/18] Atorvastatin Calcium [Lipitor] 80 mg PO QHS 04/14/15 [History Confirmed 09/08/18] Citalopram [Celexa] 20 mg PO DAILY 04/14/15 [History Confirmed 09/08/18] Metoprolol(XL)Succ [Toprol Xl (Beta Benjamin)] 25 mg PO DAILY 04/14/15 [History Confirmed 09/08/18] Nitroglycerin [Nitrostat] 0.4 mg SUBLINGUAL Q5M PRN 04/14/15 [History Confirmed 09/08/18] lisinopril 5 mg tablet 5 mg PO DAILY #30 tab 11/05/17 [Rx Confirmed 09/08/18] FOR[facility]LY [facility], [facility] Medical History Nonrheumatic mitral valve disorder (Chronic) Presence of stent in coronary artery (Chronic 03/15/15) Essential hypertension (Chronic) Myocardial infarction (Chronic) Hyperlipidemia (Chronic) 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) Hypertension (Inactive) Mitral valve disorder (Inactive) Surgical History Status post percutaneous transluminal coronary angioplasty (Chronic 02/24/15) History of appendectomy (Resolved) Postsurgical percutaneous transluminal coronary angioplasty (PTCA) status (Inactive) Family History Father CVA (cerebral vascular accident) [...] feel safe at home: Yes ROS Const Const: Negative for fatigue, weakness, weight gain, weight loss, frequent falls or excessive sweating Eyes Eyes: Negative for change in vision, blurry vision or transient loss of vision ENT ENT: Negative for dizziness or balance problems Cardio Chest Pain: Yes Character: tightness (muscle pull) Onset: at rest, exercise Location: left chest Duration: brief Palpitations: No Edema: None Muscle aches with walking: None Resp Respiratory: Negative for SOB with activity or SOB at rest GI GI: Negative vomiting or vomiting blood/hematemesis : Negative for hematuria Musc Musc: Negative for balance problems, muscle aches/ myalgia, muscle weakness or joint pain Skin Skin: Negative non-healing lesions or rash Neuro Neuro: Negative for weakness, blurry vision, dizziness, lightheadedness, frequent falls or orthostatic symptoms Nicola Hematologic/Lymphatic: Negative for easy bleeding Endo Endo: Negative for fatigue or excessive sweating Psych Psych: Negative for anxiety or depression Allergy Allergy/Immunology: Negative for hives, Negative for rash Cardiology Exam Const Appearance: cooperative, no acute distress, well developed, healthy appearing, comfortable and well groomed Nutritional Appearance: overweight Orientation: alert, awake and oriented x3 Head Head: normocephalic, atraumatic and normal to inspection Ears: hearing grossly normal bilaterally Nose: external nose normal Face and Sinus: face symmetric Mouth: moist mucous membranes Eyes General: appearance normal, both eyes and all related structures Conjunctivae: conjunctivae normal Pupils: PERRL EOM: EOM intact bilaterally Neck Neck: normal visual inspection, no JVD and full ROM Carotids: Negative bruit Neck Mass: Negative Neck mass Chest Chest inspection: normal inspection of the chest and symmetric chest movement Auscultation: Bilateral: Clear to Auscultation Cardio Palpation: normal PMI Rate: regular rate Rhythm: regular rhythm Heart sounds: S1 normal, S2 normal, murmur and positive S4; negative rub or gallop Murmur: soft, mid systolic and Grade 1/6 GI GI: normal to inspection, soft and bowel sounds present; negative tender Neuro General: alert, awake, oriented x3 and moves all extremities Skin Skin: no rashes or lesions noted Extremities Pulses: Normal: Right Posterior Tibial Pulse, Left Posterior Tibial Pulse, Right Radial Pulse, Left Radial Pulse Lower Extremity Edema: None: Bilateral Psych Psychological: normal affect Assessment AND Plan 1. Atherosclerosis of [place] coronary artery of [place] heart without angina pectoris I25.10 Plan At the present time it is unclear whether his symptoms are related to his history of underlying CAD. He will have further evaluation with an exercise tolerance test/imaging study. In the meantime he will continue medical management. Orders Orders: 2. Presence of stent in coronary artery Z95.5 PTCA/JENNY to distal L CFX AND OM, distal 60% stenosis mid- RCA not treated 03/15/15 Plan He does have a history of previous PCI as noted above. Again he will continue evaluation and care. This will include his medical therapy and an upcoming exercise tolerance test/imaging study. Orders Orders: 3. Nonrheumatic mitral valve disorder I34.9 Plan He has a history of underlying MR. He will continue to be followed by history, exam, and echocardiogram she is deemed appropriate. 4. Pure hypercholesterolemia E78.00 Plan A copy of his most recent lipid labs will be appreciated for continuity of care. 5. Essential hypertension I10 Plan If his blood pressure does not improve he may need adjustment of other medication such as advancing his lisinopril dose. Plan Detail Additional Comments Thank you for allowing me to participate in the care of your patient. Please don't hesitate to call if any issues arise This note was generated using a voice recognition system and there may be incorrect words, spelling or punctuation that were not noted when reviewing the office note prior to saving. Follow Up 6 Months (PFM) Coding Level of Care Code Off vis,est,level 4 Diagnoses Atherosclerosis of [place] coronary artery of [place] heart without angina pectoris I25.10 [place] vs. transplanted heart: [place] heart Presence of stent in coronary artery Z95.5 Nonrheumatic mitral valve disorder I34.9 Pure hypercholesterolemia E78.00 Hyperlipidemia type: pure hypercholesterolemia Essential hypertension I10 Coding Level of Care Code Off vis,est,level 4 Diagnoses Atherosclerosis of [place] coronary artery of [place] heart without angina pectoris I25.10 [place] vs. transplanted heart: [place] heart Presence of stent in coronary artery Z95.5 Nonrheumatic mitral valve disorder I34.9 Pure hypercholesterolemia E78.00 Hyperlipidemia type: pure hypercholesterolemia Essential hypertension I10 Supplemental Info Supplemental Information Transthoracic echocardiogram: To 05/15/16 Interpretation Summary Left ventricular systolic function is normal. The estimated ejection fraction is 60 %. Mild concentric left ventricular hypertrophy. Mild (1+) mitral valve insufficiency. Trivial tricuspid valve insufficiency. Mild focal aortic valve calcification. Trivial pulmonic valve insufficiency. Stress test: 04/05/2015 The patient exercised on a Eder protocol for 9 minutes completing stage 3 achieving a peak heart rate of 141 beats per minute (92% predicted maximum heart rate) and a peak blood pressure of 176/84 mmHg and a peak MET capacity of 10 METS. The baseline ECG demonstrated normal sinus rhythm with inferolateral VA of indeterminate age. The peak exercise ECG demonstrated no obvious ECG changes. There were no cardiac dysrhythmias pretest, during exercise, or recovery. The functional capacity was considered good. The patient had no complaint of chest discomfort during exercise or recovery. The examination was discontinued secondary to dyspnea and leg discomfort. IMPRESSION: 1. Technically adequate (percent predicted maximum heart rate greater than 85%) exercise tolerance test. 2. Peak exercise ECG with no obvious ECG changes. Labs LDL Cholesterol 80 mg/dL (0-130) 10/14/17 HDL Cholesterol 37 mg/dL (40-) L 10/14/17 Triglycerides 101 mg/dL (-199) 10/14/17 VLDL Cholesterol 20 mg/dL (5-40) 10/14/17 Diagnostics Electrocardiogram 09/08/18 Echocardiogram 10/04/15 Stress Test 04/05/15 Chest X-Ray 03/15/15 09/08/18 1423 <Electronically signed by Ranjith Dueñas MD> Date Ranjith Dueñas MD Cosigner Signature: Date (if applicable) CC: Catherine Cota DO 12 LEAD EKG PERFORMED Observed: 09/08/2018 Status: F Source: [place] [facility] 1:44 PM [facility] [place] [place] REPOSITORY [facility] [address] [place] [address] 12 Lead EKG performed by [facility] 09/08/18 1344 MR#: [id number] Acct: [id number] Name: RICKI BHARDWAJ Rep #: [id number] : 1945 73 From: Ranjith Dueñas MD Attending Dr: Ranjith Dueñas MD Status: DEP AMB Ordering Dr: Ranjith Dueñas MD Date: 09/08/18 Location: [facility] [place] Sex: M C Admitted: BMS/12 Lead EKG performed by [facility] ECG Report Interpretation Sinus Rhythm Inferior VA, age undetermined, cannot be excludedABNORMAL Electronically signed on 09/08/2018 at 17:25 by Ranjith Dueñas Software Version [id number] 09/08/18 2737 Date Ranjith Dueñas MD CC: Catherine Cota DO Date Dictated: 09/08/181343 Date Transcribed: 09/08/181343 Manager Federal: PM Signed THYROID Observed: 09/02/2018 Status: F Source: [place] 10:49 AM [facility] [place] [place] REPOSITORY [facility] Imaging Services [address] [place] [address] Thyroid MR#: [id number] Acct: [id number] Name: RACE,RICKI Cao Rep #: [id number] : 1945 M 73 From: Kimberly Olivas MD PCP: Catherine Cota DO Status: REG CLI Study: Thyroid Date of Exam: 09/02/18 Exam# [id number] Ordering Dr: Catherine Cota DO STUDY: THYROID ULTRASOUND REASON FOR EXAM: Male, 73 years old. Follow up thyroid nodules TECHNIQUE: Transverse and longitudinal ultrasound evaluation of the thyroid was performed with real-time and static tong-scale imaging. COMPARISON: October 10, 2015 FINDINGS: RIGHT LOBE: 4.9 x 2.1 x 2.0 cm. Homogeneous echotexture. There is a hypoechoic nodule in the lower pole measuring 16.0 x 12.7 x 14.0 mm. This previously measured 18.4 x 10.3 x 15.9 mm. LEFT LOBE: 4.4 x 2.0 x 2.2 cm. Homogeneous echotexture. There is a heterogeneous mixed echogenicity nodule in the upper pole measuring 8.1 x 4.3 x 6.1 mm. This previously measured 6.2 x 4.3 x 6.9 mm. There is another hypoechoic nodule in the upper pole measuring 3.9 x 4.1 x 4.1 mm. This previously measured 6.5 x 5.1 x 4.5 mm. ISTHMUS: 6.0 mm. The regional lymph nodes are unremarkable. US/Thyroid IMPRESSION: No significant changes in the bilateral thyroid nodules. Electronically Signed: Kimberly Olivas MD at 10:47 EST Tel Direct: [phone], Service support , CC: Catherine Cota DO Manager Federal: Signed KIDNEY AND BLADDER Observed: 06/10/2018 Status: F Source: [place] 11:01 AM [facility] [place] [place] REPOSITORY [facility] Imaging Services [address] [place] [address] Kidney and Bladder MR#: [id number] Acct: [id number] Name: RICKI BHARDWAJ Rep #: [id number] : 1945 M 73 From: Jerome Mackay MD PCP: Catherine Cota DO Status: REG CLI Study: Kidney and Bladder Date of Exam: 06/10/18 Exam# [id number] Ordering Dr: Yessica Siu CHAINSTITCH BINDER-C STUDY: RENAL ULTRASOUND - COMPLETE REASON FOR EXAM: Male, 73 years old. Left renal mass. Abnormal CT abdomen and pelvis. TECHNIQUE: Ultrasound evaluation of the kidneys was performed with real-time and static rucker-scale imaging. COMPARISON: CT abdomen and pelvis June 06, 2018 FINDINGS: RIGHT KIDNEY: Normal location of the right kidney, which is normal in size. The right kidney measures 11.3 x 5.9 x 6.0 cm. [...] 7 mm. There are no right renal calculi. There is no right hydronephrosis. DISTAL RIGHT URETER: There is non-visualization of the distal right ureter. There is no demonstrated right ureterovesical junction calculus. There is a visualized right ureteral jet. LEFT KIDNEY: Normal location of the left kidney, which is normal in size. The left kidney measures 11.2 x 5.7 x 5.7 cm. There is a normal cortex of the left kidney. The renal cortex measures 1.7 cm. An incompletely defined 1.95 x 2.3 x 1.9 cm mildly hypoechoic soft tissue mass is seen at the anterolateral mid to lower pole. There are also cortical cysts. There is a partially septated 2.0 x 1.3 x 1.5 cm cyst in the anterior mid to lower pole. A 1.4 x 1.4 x 1.0 cm cortical cyst is seen in the anterolateral upper to midpole. An 11 x 10 mm cortical cyst emanates from the tip of the lower pole. There are no left renal calculi. There is no left hydronephrosis. DISTAL LEFT URETER: There is non-visualization of the distal left ureter. There is no demonstrated left ureterovesical junction calculus. There is a visualized left ureteral jet. BLADDER: The distended urinary bladder has a volume of 230 ml. The bladder measures 9.9 x 5.8 x 4.6 cm. There is a normal wall thickness of the distended urinary bladder. There is no demonstrated mass within the urinary bladder. There are no demonstrated bladder calculi. US/Kidney and Bladder IMPRESSION: 1. Bilateral renal cortical cysts, as described. No hydronephrosis. 2. 2.3 cm solid mass in the mid to lower pole of the left kidney. The appearance is nonspecific, but neoplastic malignancy must be considered until proven otherwise. One might consider ultrasound-guided kidney biopsy or, if more imaging is performed, MRI. 3. Unremarkable urinary bladder. Electronically Signed: Michael Mackay MD at 18:00 EDT , Service support , CC: Catherine Cota DO; Yessica Siu NP Manager Federal: Signed CREATININE FINGERSTICK Collected: 06/06/2018 Status: F Source: [place] 1:24 PM [facility] [place] [place] REPOSITORY TYPE CODE TESTS RESULT OUT OF RANGE REFERENCE UNITS LAB L9100.0210 0.70-1.30 mg/dL Normal CREATININE WB 1.0 LAB L9100.0220 >60 mL/min EGFR WB Normal > 60.0000 Performed By: #### L9100.0200 #### [facility] Point of Care [address] [place] [address] CT ABD/PELVIS W/WO Observed: 06/06/2018 Status: F Source: [place] CONTRAST 1:21 PM [facility] [place] [place] REPOSITORY [facility] Imaging Services [address] [place] [address] CT Abd/Pelvis W/WO Contrast MR#: [id number] Acct: [id number] Name: RICKI BHARDWAJ Rep #: [id number] : 1945 M 73 From: Madan Marie MD PCP: Catherine Cota DO Status: REG CLI Study: CT Abd/Pelvis W/WO Contrast Date of Exam: 06/06/18 Exam# [id number] Ordering Dr: Yessica Siu CHAINSTITCH BINDER-C STUDY: CT ABDOMEN AND PELVIS WITH AND WITHOUT CONTRAST REASON FOR EXAM: Male, 73 years old. Microhematuria RADIATION DOSAGE (If Supplied By Facility): CTDIvol = ( 22.36 ) mGy, DLP = ( 2009.42 ) mGycm TECHNIQUE: Transaxial images were obtained from the dome of the diaphragm to the symphysis pubis without oral contrast. 100mL ml of Isovue 300 contrast was administered. Sagittal and coronal images were reconstructed. Individualized dose optimization techniques were used for this CT. COMPARISON: None. FINDINGS: The lung bases are clear. Multiple scattered hepatic cysts ranging in size from 4 mm to 3.5 cm.. No dilated intrahepatic biliary radicles. The gallbladder is normal with no calcifications within it. There is no pericholecystic fluid collection or streakiness The spleen is normal. The pancreas is normal. Both adrenals are normal. A solid 1.5 cm left renal mass. Multiple benign right renal cysts. The stomach is normal. There is no bowel distention, acute appendicitis or diverticulitis. No constricting lesions are seen in large bowel. The abdominal wall is intact with no hernias. There is no ascites or any free intraperitoneal air. No indication of epiploic appendagitis The vascular structures in the retroperitoneum are normal. There is no retrocrural, retroperitoneal or mesenteric adenopathy. The bones and joints are normal. The urinary bladder is normal.--The prostate is normal. There is no inguinal or pelvic adenopathy. There is no inguinal hernia. . CT/CT Abd/Pelvis W/WO Contrast IMPRESSION: Multiple benign hepatic cysts. A 1.5 cm solid left renal mass. Multiple benign right renal cyst. No acute appendicitis or diverticulitis Electronically Signed: Madan Marie MD at 5:04 EDT Tel , Service support , CC: Catherine Cota DO; Yessica Siu NP Manager Federal: Signed CARDIOLOGY VISIT Observed: 10/24/2017 Status: F Source: [place] REPORT 12:42 PM [facility] [place] [place] REPOSITORY [facility] [address] [place] [address]. [address] [place] [address] OFFICE VISIT Date of Service: 10/23/17 MR#: [id number] Acct: [id number] Name: RICKI BHARDWAJ Rep #: [id number] : 1945 Provider: Dana Matute Age/Sex: 72/M Location: [facility] [place] Status: Signed HPI HPI Details: RICKI BHARDWAJ, is a 72 M who presents to the office today for for a cardiovascular follow-up. He established with us in March of 2015 following an acute inferolateral ST-T segment eevation myocardial infarction. He had a thrombectomy and stenting to his circumflex and OM. From a cardiac standpoint, patient is doing well. He does not have any chest discomfort/heaviness/tightness. His exercise tolerance is stable for his age. He does not have any worsening symptoms of shortness of breath. He denies any PND. He does not have any orthopnea. He does not have any symptoms of congestive heart failure. He does not have any palpitations that he is aware of. He does not have any lightheadedness or dizziness. He does not have any near-syncope or syncope. He does not have any lower extremity edema. He does not have any symptoms of claudication. Intake Vital Signs10/23/17 Height 5 ft 11 in 10/23/17 Weight: 203 lb 10/23/17 Body Mass Index (BMI) 28.3 10/23/17 Blood Pressure 138/90 10/23/17 Blood Pressure Location Lt brachial Intake Visit Reasons: 6 M FU Ux Manager Required: No Accompanied by: None Is patient in pain?: No Allergies No Known Allergies Allergy (Verified 10/23/17 14:37) Medications Aspirin [Aspirin, Baby] 81 mg PO DAILY@0800 04/14/15 [History Confirmed 10/23/17] Atorvastatin Calcium [Lipitor] 80 mg PO QHS 04/14/15 [History Confirmed 10/23/17] Citalopram [Celexa] 20 mg PO DAILY 04/14/15 [History Confirmed 10/23/17] Metoprolol(XL)Succ [Toprol Xl (Beta Benjamin)] 25 mg PO DAILY 04/14/15 [History Confirmed 10/23/17] Nitroglycerin [Nitrostat] 0.4 mg SUBLINGUAL Q5M PRN 04/14/15 [History Confirmed 10/23/17] ascorbic acid (vitamin C) 500 mg tablet 500 mg PO QDAY 10/17/17 [History Confirmed 10/23/17] lisinopril 5 mg tablet 5 mg PO DAILY tab 10/23/17 [History Confirmed 10/23/17] Ejection fraction %: 60 to 64 PFSH Medical History Mitral valve disorder (Chronic) Myocardial infarction (Chronic) Hypertension (Chronic) Hyperlipidemia (Chronic) Atherosclerotic heart disease of [place] coronary artery without angina pectoris (Chronic) 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) Surgical History Postsurgical [...] feel safe at home: Yes ROS Const Const: Negative for weakness, fatigue, fever(s) or headache(s) Eyes Eyes: Negative for blind spots, loss of peripheral vision or transient loss of vision ENT ENT: Negative for headache(s), dizziness, tinnitus or Nosebleed/epistaxis Cardio Chest Pain: No Palpitations: No Edema: None Muscle aches with walking: None Resp Respiratory: Negative for SOB with activity, SOB at rest, SOB orthopnea\SOB lying down or Cough GI GI: Negative nausea, vomiting, heartburn or vomiting blood/hematemesis : Negative for hematuria Musc Musc: Negative for muscle aches/ myalgia Neuro Neuro: Negative for weakness, headache(s), dizziness, near syncope, syncope, lightheadedness or orthostatic symptoms Nicola Hematologic/Lymphatic: Negative for easy bleeding Endo Endo: Negative for fatigue Cardiology Exam Const Appearance: cooperative, no acute distress and well developed Orientation: alert, awake and oriented x3 Head Head: normocephalic and atraumatic Mouth: moist mucous membranes Eyes General: appearance normal, both eyes and all related structures Conjunctivae: conjunctivae normal Pupils: PERRL EOM: EOM intact bilaterally Neck Neck: normal visual inspection, no lymphadenopathy and no JVD Carotids: Negative bruit Neck Mass: Negative Neck mass Chest Chest inspection: normal inspection of the chest and symmetric chest movement Auscultation: Bilateral: Clear to Auscultation Cardio Palpation: normal PMI Rate: regular rate Rhythm: regular rhythm Heart sounds: S1 normal, S2 normal and murmur; negative rub or gallop Murmur: Grade 2/6, soft and mid systolic GI GI: normal to inspection, soft, no hepatosplenomegaly and bowel sounds present; negative tender Neuro General: alert, awake, oriented x3, CN's II-XI intact bilaterally and moves all extremities Extremities Pulses: Normal: Right Posterior Tibial Pulse, Left Posterior Tibial Pulse, Right Radial Pulse, Left Radial Pulse Lower Extremity Edema: None: Bilateral Psych Psychological: normal affect Supplemental Info Echocardiogram in 2016 demonstrates Left ventricular systolic function is normal. The estimated ejection fraction is 60 %. Mild concentric left ventricular hypertrophy. Mild (1+) mitral valve insufficiency. Trivial tricuspid valve insufficiency. Mild focal aortic valve calcification. Trivial pulmonic valve insufficiency. Assessment AND Plan 1. Atherosclerosis of [place] coronary artery of [place] heart without angina pectoris I25.10 Plan - MONROE Rebolledo Stable, from a cardiac standpoint patient does not have any symptoms of angina. We recommend that they continue with current aggressive medical management and risk factor modification. 2. Essential hypertension I10 Plan - [place] Rebol[place]o Slightly elevated today however at home patient states that his been adequately controlled. Will have patient continue to monitor. He will let us know if it is elevated. 3. Pure hypercholesterolemia E78.00; E78.0 Plan - [place]E Rebolledo Recent lipid profile demonstrates total cholesterol of 137, HDL 37, LDL 80. Will continue to monitor. Plan Detail Additional Comments - MONROE Rebolledo The above patient was discussed with Dr. James in Dr. Dueñas's absence, he agrees with plan of care. Thank you for allowing us to participate in patient's plan of care, if you have any questions please do not hesitate to call. This note was generated using a voice recognition system and there may be incorrect words, spelling or punctuation errors that were not noted when reviewing the office note prior to saving. Follow Up 9 Months (PFM) Coding Level of Care Code Off vis,est,level 3 Diagnoses Atherosclerosis of [place] coronary artery of [place] heart without angina pectoris I25.10 [place] vs. transplanted heart: [place] heart Essential hypertension I10 Hypertension type: essential hypertension Pure hypercholesterolemia E78.00; E78.0 Hyperlipidemia type: pure hypercholesterolemia Coding Level of Care Code Off vis,est,level 3 Diagnoses Atherosclerosis of [place] coronary artery of [place] heart without angina pectoris I25.10 [place] vs. transplanted heart: [place] heart Essential hypertension I10 Hypertension type: essential hypertension Pure hypercholesterolemia E78.00; E78.0 Hyperlipidemia type: pure hypercholesterolemia 10/24/17 1055 <Electronically signed by Dana JONES> Date Dana JONES 10/24/17 1241<Electronically signed by Pacheco James MD> Cosigner Signature: Date (if applicable) Pacheco James MD CC: Catherine Cota DO LIVER PROFILE Collected: 10/14/2017 Status: F Source: MARLI 8:27 AM [facility] [place] [place] REPOSITORY Order Comment: Order Date: 05/15/17 Order Info: [id number] - *Hepatic Function Panel Order Info: [id number] - *Lipid Profile CC PCP Comments: 12 hours fasting, may have water. TYPE CODE TESTS RESULT OUT OF RANGE REFERENCE UNITS LAB L501.1500 6.4-8.2 g/dL Normal T PROT 7.1 LAB L501.1800 3.2-5.0 g/dL Normal ALB 3.8 LAB L501.1950 2.2-4.2 g/dL Normal GLOB 3.3 LAB L501.4100 15-37 U/L Normal AST 17 LAB L501.4305 45-117 U/L Normal ALK P 96 LAB L501.4405 16-61 U/L Normal ALT 22 Result Comment: Please note revised ALT reference range effective 2017. LAB L501.4600 0.20-1.00 mg/dL Normal T BILI 0.40 LAB L501.4700 0.00-0.30 mg/dL Normal D BILI 0.12 Performed By: #### L500.3400 #### [facility] [address] [place], [address] LIPID PROFILE Collected: 10/14/2017 Status: F Source: MARLI 8:27 AM [facility] [place], [place] REPOSITORY Order Comment: Order Date: 05/15/17 Order Info: [id number] - *Hepatic Function Panel Order Info: [id number] - *Lipid Profile CC PCP Comments: 12 hours fasting, may have water. TYPE CODE TESTS RESULT OUT OF RANGE REFERENCE UNITS LAB L501.4900 200 mg/dL Normal CHOL 137 Result Comment: <200 mg/dL Desirable 200-240 mg/dL Borderline >240 mg/dL High Risk LAB L501.5000 mg/dL Normal TRIG 101 Result Comment: The drugs N-Acetylcysteine and Metamizole may falsely depress this assay. Serum Triglycerides Reference Interval Normal <150 mg/dL Borderline high 150 - 199 mg/dL High 200 - 499 mg/dL Very High > or = 500 mg/dL LAB L501.6400 mg/dL Low HDL 37 Result Comment: The drugs N-Acetylcysteine and Metamizole may falsely depress this assay. Reference Range HDL <40 mg/dL Low HDL Cholesterol HDL >or= 60 mg/dL High HDL Cholesterol LAB L501.6500 0-130 mg/dL Normal LDL 80 LAB L501.6600 5-40 mg/dL Normal VLDL 20 Performed By: #### L500.4100 #### [facility] [address] [place], [address] ALLERGIES ALLERGIES DATE TYPE / CODE NAME / CODE REACTION SEVERITY SOURCE 09/08/2018 Drug No Known Unknown [facility] Allergy/4160 Allergies/F00 Hospital 49457(SNOMED 6001996(RXNOR Repository CT) M) ENCOUNTERS ENCOUNTERS ADMIT/DISCHARGE ACCOUNT ADMITTING ENCOUNTER LOCATION SOURCE NUMBER CLASS 09/16/2018 [id number] Ambulatory [place] 0 [facility] Hospital ing:[facility] Repository 09/08/2018/ [id number] Ambulatory BMSBuilding:B [place] 9 8 [facility] Repository 09/04/2018 [id number] Ambulatory BMSBuilding:B [place] 2 [facility] Repository 09/02/2018 [id number] Ambulatory [place] 9 [facility] Hospital ing:[place] Repository 08/28/2018 [id number] Ambulatory Building:[facility] Repository 06/10/2018 [id number] Ambulatory [place] 3 [facility] Hospital ing:[place] Repository 06/06/2018 [id number] Amb[place] 3 [facility] Hospital ing:CT Repository 10/23/2017/ [id number] Ambulatory BMSBuilding:B [place] 8 3 [facility] Repository 10/23/2017 [id number] Ambulatory BMSBuilding:B [place] 8 [facility] Repository 10/14/2017 [id number] Ambulatory Marli [place] 1 [facility] PAYERS PAYERS ENCOUNTER GUARANTOR PAYER SUBSCRIBER SOURCE 09/16/2018 RICKI Cao [id number] Primary RICKI Calles UNA Insurance:MEDICARE RACEDOB: [place] PART A [facility] [id number] Hospital [address]Kzj: (330) Number: Repository [phone] (HP) [id number] Date:2018-09-09 09/16/2018 Secondary RICKI W [place] Insurance:FORETHOUGHT RACEDOB: Community LIFE INS [facility] [id number] Hospital Number: Repository [id number] Date:2018-09-09[address], [place] [address]RB: 09/16/2018 Tertiary NOT GIVENUNK [place] Insurance:SELF PAY [facility] Number: Effective Repository Date:2018-09-09 09/08/2018 RICKI Kiley [id number] Primary RICKI Calles UNA Insurance:MEDICARE RACEDOB: [place] PART A [facility] [id number] Hospital [address]Zbz: (330) Number: Repository [phone] (HP) [id number] Date:2017-10-23 09/08/2018 Secondary RICKI W [place] Insurance:FORETHOUGHT RACEDOB: Community LIFE [facility] [id number] Hospital Number: Repository [id number] Date:2017-10-23[address], [place] [address]LQ: 09/08/2018 Tertiary NOT GIVENUNK [place] Insurance:SELF PAY [facility] Hospital Number: Effective Repository Date:2018-09-05 09/04/2018 RICKI W [id number] Primary RICKI Kiley Calles UNA Insurance:MEDICARE RACEDOB: [place] PART A [facility] [id number] Hospital [address]Rny: (330) Number: Repository [phone] (HP) [id number] Date:2018-09-04 09/04/2018 Secondary RICKI W [place] Insurance:FORETHOUGHT RACEDOB: Community LIFE INS [facility] [id number] Hospital Number: Repository [id number] Date:2018-09-04[address], [place] [address]YL: 09/04/2018 Tertiary NOT GIVENUNK [place] Insurance:SELF PAY [facility] Number: Effective Repository Date:2018-09-04 09/02/2018 RICKI W [id number] Primary RICKI W [place] U[place] Insurance:MEDICARE RACEDOB[place] [facility] [place] [facility] [id number] Hospital [address]Wgi: (330) Number: Repository [phone] (HP) [id number] Date:2018-08-28 09/02/2018 Secondary RICKI W [place] Insurance:FORETHOUGHT RACEDOB: Community LIFE INS [facility] [id number] Hospital Number: Repository [id number] Date:2018-08-28[address], [place] [address]QX: 09/02/2018 Tertiary NOT GIVENUNK Mar[place] Insurance:SELF PAY [facility] Number: Effective Repository Date:2018-08-28 08/28/2018 Ricki RaceDOB: Primary Ricki RaceDOB: [place] Practices Insurance:MedicarePol [id number] Repository [place] Number: [id number] [place] [address] [place] [id number] [place] [address]Vqo: 330) Date:5627-87-79Qrna [address]Bmh: Name:BOOKING PRIZER [phone] (HP) (HP)Tel: [phone], [place] [phone] (WP) [address]ZK: 08/28/2018 Secondary Ricki RaceDOB: [place] Pract[employer] Insurance:[employer] [id number] [facility] Number: [address] [place] [id number] [address]Rqg: Date:5073-85-10Zkhf ~(3 Name:[address] (HP) [address]kwvs, [place] [id number]: 08/28/2018 Tertiary Ricki RaceDOB: [place] Pract[place] Insurance:[place] [id number] [facility] Number: ERIN Ballester[place] [id number] [address]Ywn: Date:2004-06-13 - ~(3 5479-89-70Tfml 30 (HP) Name:[facility] [address], [place] [address]QY: 08/28/2018 Tertiary Ricki RaceDOB: [place] Pract[place] Insurance:[facility] [id number] Repository icy Number: [place] [id number] ERIN Ballesteros Date:2007-02-23 416[address]Yqq: 8412-13-56Mhyc ~(3 Name:[facility] [address] () [address], [place] [id number]: 06/10/2018 RICKI W [id number] Primary RICKI Kiley Calles UNA Insurance:MEDICARE [facility]AC[facility]OB[facility] [place] [facility] [id number] Hospital [address]Anr: (330) Number: Repository [phone] () [id number] Date:2018-06-09 06/10/2018 Secondary RICKI W [place] Insurance:FORETHOUGHT RACEDOB: [facility] [id number] Hospital Number: Repository [id number] Date:2018-06-09P [facility] [address], [place] [address]TO: 06/10/2018 Tertiary NOT GIVENUNK [place] Insurance:SELF PAY [facility] Number: Effective Repository Date:2018-06-09 06/06/2018 RICKI W [id number] Primary RICKI W Marli UNA Insurance:MEDICARE RACEDOB: [place] PART A [facility] [id number] Hospital [address]Jdj: (330) Number: Repository [phone] () [id number] Date:2018-06-05 06/06/2018 Secondary RICKI W [place] Insurance:FORETHOUGHT RACEDOB: Community LIFE INS COMPolicy [id number] Hospital Number: Repository [id number] Date:2018-06-05 [address], [place] [address]EN: 06/06/2018 Tertiary NOT GIVENUNK [place] Insurance:SELF PAY [facility] Number: Effective Repository Date:2018-06-05 10/23/2017 RICKI DAVIS8 Primary RICKI W Marli [place] Insurance:MEDICARE [place]AC[place]OB[place] olicy [id number] Hospital [address]Igk: (330) Number: Repository [phone] () [id number] Date:2017-08-01 10/23/2017 Secondary RICKI W [place] Insurance:FORETHOUGHT RACEDOB: Community LIFE INS COMPolicy [id number] Hospital Number: Repository [id number] Date:2017-08-01[address], [place] [address]NE: 10/23/2017 Tertiary NOT GIVENUNK [place] Insurance:SELF PAY [facility] Number: Effective Repository Date:2017-08-01 10/23/2017 Ricki Davis8 Primary Ricki [place] Insurance:MED[place]ARE [place] [facility] [id number] Hospital [address]Grj: (330) Number: Repository [phone] () [id number] Date:2017-10-23 10/23/2017 Secondary Ricki W [place] Insurance:FORETHOUGHT RaceDOB: Community LIFE INS COMPolicy [id number] Hospital Number: Repository [id number] Date:2017-10-23[address] [address]JJ: 10/23/2017 Tertiary NOT GIVENUNK [place] Insurance:SELF PAY [facility] Number: Effective Repository Date:2017-10-23 10/14/2017 Ricki Cao [id number] Primary Ricki Kiley [place] Insurance:MEDICARE [place] B[place] [id number] Hospital [address]Pof: (330) Number: Repository [phone] (UY) [id number] Date:2017-10-14 10/14/2017 Secondary Ricki W [place] Insurance:FORETHOUGHT RaceDOB: Community LIFE INS COMPolicy [id number] Hospital Number: Repository [id number] Date:2017-10-14 [address], [place] [address]ZF: 10/14/2017 Tertiary NOT GIVENUNK [place] Insurance:SELF PAY [facility] Number: Effective Repository Date:2017-10-14
--- OUTSIDE RECORDS SUMMARY | 2018-11-18 07:09 | XMS RPT_ITS | Continuity of Care Document ---
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) Comments: MS March 17 stents-- mild elevation adn progression [...] Denisse Alvarado LPN Start : 17-Apr-2018 Active Lisinopril 10 MG Oral [...] 0 days Quantity: 30 {Tablet} Refills: 6 Ordered:09-Dec-2017 Jose APARICIO CatherineHattiepenelope APARICIO Catherine Start : 09-Dec-2017 Active ALBUTEROL SULFATE, (2.5 MG/3ML)0.083% (Inhalation Nebulization [...] days Quantity: 60 {Lozenge} Refills: 0 Ordered:05-Jun-2013 Amiriver SUSANSuzanne Start : 05-Jun-2013 End : 19-Jun-2013 Inactive ERGOCALCIFEROL, 74657QLCM (Oral Capsule) 1 Capsule weekly for 0 [...] Start : 20-Sep-2009 End : 30-Sep-2009 Inactive Lexapro 20 MG Oral Tablet 1 Tablet QD for 0 days Quantity: 30 {Tablet} Refills: 3 Ordered:17-Apr-2018 Denisse Alvarado LPN Start : 10-Mar-2018 End : 17-Apr-2018 Inactive LOPRESSOR, 50MG (Oral Tablet) 1 (one) Tablet bid for 0 days Quantity: 60 {Tablet} Refills: 3 Ordered:24-Jul-2011 Madina BRUNILDARona Start : 23-Jul-2011 End : 24-Jul-2011 Inactive [...] 04-Nov-2012 End : 25-May-2014 Inactive Comments:called to [place] [facility] 11-04-12 sari ZOSTAVAX, 85439JWO/0.65ML (Subcutaneous Solution Reconstituted) 1 For Solution injection [...] Quantity: 30 {Tablet} Refills: 3 Ordered:17-Apr-2018 Jose DO DeepaJodi APARICIO Catherine Start : 17-Apr-2018 End : [...] Medicare annual wellness exam (Z00.00, V70.0) Comments: 2--16 colonoscopy 6-14 repeat in 5 years, PSA [...] and inoculation against influenza (Z23, V04.81) Comments: Lot:23HZ8Plh:02/23/16Amt:0.5mlRoute:IMSite: L DltdGiven By: ERLIN Call signed Status: [...] Procedure Dates Details Angioplasty Completed Comments: x2 [facility] 03-15-15 [facility] Appendectomy Completed Cataract Extraction-Right Completed Comments: Dr. Paul Facial surgery Completed Vasectomy Completed Date Value Details 10-Jun-2018 Kidney and Bladder Result: Comments: See Note; NOTES: [facility] Imaging Services [address] [place] [address] Kidney and Bladder MR#: [id number] Acct: [id number] Name: RICKI BHARDWAJ Rep #: [id number] D OB: 1945 M 73 From: Jerome Mackay MD PCP: Catherine Madrigal DO Status: REG CLI Study: Kidney and Bladder Date of Exam: 06/10/18 Exam# [id number] Ordering Dr: Yessica Siu LIGHT EQUIPMENT OPERATOR-C STUDY: RENAL ULT RASOUND - COMPLETE REASON [...] are no demonstrated bladder calculi. US/Kidney and Samreen r IMPRESSION: 1. Bilateral renal cortical cysts, [...] CC: Catherine Madrigal DO; Yessica Siu NP Senior Quality Assurance Engineer: Signed 06-Jun-2018 CT Abd/Pelvis W/WO Contrast Result: Comments: See Note; NOTES: [facility] Imaging Services [address] [place] [address] Abd/Pelvis W/WO Contrast MR#: [id number] Acct: [id number] Name: RICKI BHARDWAJ Rep #: : 1945 M 73 From: Madan Marie MD PCP: Catherine Madrigal DO Status: REG CLI Study: CT Abd/Pelvis W/WO Contrast Date of Exam: 06/06/18 Exam# [id number] Ordering Dr: Eb Siu LIGHT EQUIPMENT OPERATOR-C STUDY: CT ABDOMEN AND PELVIS WITH AND [...] CC: Catherine Madrigal DO; Yessica Siu NP Senior Quality Assurance Engineer: Signed 24-Oct-2017 Cardiology Visit Report Result: Comments: See Note; NOTES: 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 Assessment AND Plan 1. Atherosclerosis of [place] coronary artery of [place] heart without angina pectoris I25.10 Plan - [...] Code Off vis,est,level 3 Diagnoses Atherosclerosis of [place] coronary a rtery of [place] heart without angina pectoris I25.10 [place] vs. transplanted heart: e[place]p heart Essential hypertension I10 Hypertension type: essential hypertension Pure hypercholesterolemia E78.00; E7 8.0 Hyperlipidemia type: pure hypercholesterolemia Coding Level of Care Code Off vis,est,level 3 Diagnoses Atherosclerosis of [place]wi[place]ayp coronary artery of [place] heart without angina pectoris I25.10 [place] anselmo vs. transplanted heart: ewiiaapaayp heart Essential hypertension I10 Hypertension type: essential hypertension Pure hypercholesterolemia E78.00; E78.0 Hyperlipidemia type: pure hypercholesterolemia 1055 <Electronically signed by Dana Matute PA> Date Dana JONES 10/24/17 1241<Electronically maicol d by Pacheco James MD> Cosigner Signature: Date (if applicable) Pacheco James MD CC: Catherine Madrigal DO 24-Oct-2017 Cardiology Visit Report Result: Comments: See Note; NOTES: [facility] [address] [place] [address]. 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 Assessment AND Plan 1. Atherosclerosis of [place] coronary artery of [place] heart without angina pectoris I25.10 Plan - [...] Code Off vis,est,level 3 Diagnoses Atherosclerosis of [place] coronary a rtery of [place] heart without angina pectoris I25.10 [place] vs. transplanted heart: e[place]p heart Essential hypertension I10 Hypertension type: essential hypertension Pure hypercholesterolemia E78.00; E7 8.0 Hyperlipidemia type: pure hypercholesterolemia Coding Level of Care Code Off vis,est,level 3 Diagnoses Atherosclerosis of [place] coronary artery of [place] heart without angina pectoris I25.10 [place] anselmo vs. transplanted heart: ewi[place]p heart Essential hypertension I10 Hypertension type: essential hypertension Pure hypercholesterolemia E78.00; E78.0 Hyperlipidemia type: pure hypercholesterolemia 1055 <Electronically signed by Dana JONES> Date Dana JONES 10/24/17 1241<Electronically maicol d by Pacheco James MD> Cosigner Signature: Date (if applicable) Pacheco James MD CC: Catherine Madrigal DO 29-Dec-2015 ELECTROCARDIOGRAM, COMPLETE (ECG) (16198) Comments: sinus reyna -no acute changes Result: [MEASUREMENTS ANALYSIS] Date of Test: 12/29/2015 09:54:20; Heart Rate: 59; AR Interval: 176; QRS: 102; QT Interval: 408; Corrected QT Interval (QTc): 407; P Wave [place]: 23; QRS Wave [place]: 11; T Wave [place] : 15; Blood Pressure: 148/84 [ECG DIAGNOSTIC STATEMENTS] Date of Test: 12/29/2015 09:54:20; Summary: 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 ABNORMAL 10-Oct-2015 Thyroid Result: Comments: See Note; NOTES: [facility] Imaging Services [address] [place] [address] Verdana 4d Thyroid MR#: [id number] Acct: [id number] Name: RICKI BHARDWAJ Rep # : [id number] : 1945 M 70 From: Franko Julien MD PCP: Catherine Madrigal DO Status: REG CLI Study: Thyroid Date of Exam: 10/10/15 Exam# [id number] Ordering Dr: Catherine Madrigal DO STUDY : [...] Franko Julien MD at 8:04 EST Tel [phone], Service support [phone], CC: Catherine Madrigal DO Senior Quality Assurance Engineer: Signed 04-Oct-2015 Echocardiogram Complete Result: Comments: See Note; NOTES: [facility] Cardiovascular Services [address] [place] [address] Echo Complete 10/04/15 0956 MR#: [id number] Acct: [id number] Name: RA CHAMPAGNERICKI Lucian Rep #: [id number] : 1945 70 From: Ranjith Dueñas MD Attending Dr: Ranjith Dueñas MD Status: REG CLI Ordering Dr: Ranjith Dueñas MD Date: 10/04/15 Location: [facility] Sex: M C Admitte d: [...] Dictated: 10/04/15 0956 Date Transcrib ed: 10/04/151126 Senior Quality Assurance Engineer: Signed 24-Jun-2015 CR - Individual Treatment Plan Result: Comments: See Note; NOTES: [facility] Cardiac Rehab [address] [place] [address] CR - Individual Treatment Plan MR#: [id number] Acct: [id number] Name: RICKI BHARDWAJ Rep #: [id number] : 1945 70 From: Froilan Chan PCP: Catherine Madrigal DO DOS: 06/24/15 Exercise - 60-Day Assessment - Visit Date of Eval: 06/24/15 - Stages of Change Stages of Mihcelle nge:: Action - Exercise Prescription Mode:: Treadmill, [...] Referral to Mental Health, No Referral to [facility] Case Management, No Referral to Physician - [...] modality and prog ress per protocol. 06/24/15 3636 <Electronically signed by Ranjith Dueñas MD> Cosigner Signature: Date Ranjith Dueñas MD CC: Signed 25-May-2015 CR - Individual Treatment Plan Result: Comments: See Note; NOTES: [facility] Cardiac Rehab [address] [place] [address] CR - Individual Treatment Plan MR#: [id number] Acct: [id number] Name: RICKI BHARDWAJ Rep #: [id number] : 1945 70 From: Froilan Chan PCP: [...] Uses Stress Management Skills, No Referral to [facility], No Referral to [facility] Case Management, No Referral to Physician - [...] Treatment Plan Result: Comments: See Note; NOTES: [facility] Cardiac Rehab [address] [place] [address] CR - Individual Treatment Plan MR#: [id number] Acct: [id number] Name: BENTONRICKI Lucian Rep #: [id number] : 1945 69 From: Kamron Wilks PCP: [...] HDL >45. Triglycerides <150. HgbA1C <7%. B MS <25 - Lipids Total Cholesterol (mg/dL) Goal [...] Yes Individual Education/Counseling:: Yes Education Schedule Given:: Ye mahsa Psychosocial - Initial Assess - Target Goals [...] Referral to Mental Health, No Referral to [facility] Case Management, No Referral to Physician - [...] signed by Kamron Wilks > Date Kamron matamoros Outcome assessment reviewed. Exercise plan approved as [...] Stress Report Result: Comments: See Note; NOTES: [facility] Cardiovascular Services [address] [place] [address] STRESS TEST REPORT 04/05/15 1305 MR#: [id number] Acct: [id number] Name: RICKI ROY Rep #: [id number] : 1945 69 From: Ranjith Dueñas MD [...] ECG demonstrated normal sinus rhythm with inferolateral MS of indeterminate ag e. The peak exercise [...] changes. Ranjith Dueñas MD T: MARCOS JOB: [id number] 04/06/15 0948 <Electronically maicol d by Ranjith Dueñas MD> Date Ranjith Dueñas MD CC: Catherine Madrigal DO; Ranjith Dueñas MD Date Dictated: 04/05/151304 Date Transcribed: 04/05/151304 Senior Quality Assurance Engineer: Signed 06-Apr-2015 Emergency Department Summary Result: Comments: See Note; NOTES: [facility] Medical Records Department [address] [place] [address] Emergency Department Summary MR#: [id number] Acct: [id number] Name: RICKI BHARDWAJ Rep #: [id number] : 1945 69 From: Hong Blair DO PCP: Catherine Madrigal DO Status: DEP ER DATE OF SERVICE: 03/15/2015 The patient was seen and assessed by Dr. Jose Alejandro and was found to have an acute myocardial infarction. When the patient went to CT scanner to evaluate his head injury, he became more unresponsive and started to have desaturations. He was brought back to [facility] resuscitation bay while Dr. Alejandro was speaking [...] The patient was started on Versed [facility]. Please see Dr. Alejandro's dictation for the rest of the ED course and his assessment. Hong Blair DO T: MARCOS JOB: [id number] 04/06/15 08 <Electronically signed by Hong Blair DO&am p;#62; Date Hong Rossy APARICIO Cosigner Signature (If Indicated): Date CC: Catherine Wick Date Dictated: 03/25/151558 Date Transcribed: 03/25/151558 Senior Quality Assurance Engineer: Signed 16-Mar-2015 Emergency Department Summary Result: Comments: See Note; NOTES: [facility] Medical Records Department [address] [place] [address] Emergency Department Summary MR#: [id number] Acct: [id number] Name: RICKI BHARDWAJ Rep #: [id number] : 1945 69 From: Jose Alejandro MD PCP: Catherine Madrigal DO Status: [facility] ER DATE OF SERVICE: 03/15/2015 [...] causing a lace ration to his right worship with this as well. EMS EKG was transmitted and does show an acute inferior lateral MS. The STEMI team was activated prior to [...] where he was when he was at [facility]. His GCS is 13. TESTS: A chest x-ray read by radiology as no acute pathology. CT of the brain was obtained due to his head injury prior to requiring anticoagulation, was no bleed. EKG again was from the field an acute MS. CBC: His white count is 15.1, hemoglobin [...] Brilinta. I spoke with Dr. Camp from [facility]. Due to his abnormal GCS and acut MS, i t was elected to intubate the [...] Jerry Carpenter C: Pippa Madrigal DO T: [facility] JOB: [id number] 03/16/15 0159 <Electronically signed by Jose Alejandro MD> Date Jose Alejandro MD CC: Catherine Wick Date Dictated: 03/16/157 Date Transcribed: 03/16/157 Senior Quality Assurance Engineer: Signed 15-Mar-2015 Brain/Head without Contrast Result: Comments: See Note; NOTES: [facility] Imaging Services [address] [place] [address] CAT Scan Report MR#: [id number] Acct: [id number] Name: RICKI BHARDWAJ Rep #: [id number] : 1945 M 69 From: Jackson Daniel MD PCP: Catherine Madrigal DO Status: REG ER Study: Brain/Head without Contrast Date of Exam: 03/15/15 Exam# [id number] Ordering Dr: Jose Alejandro MD STUDY : [...] at 17:27 EDT , Service suppo rt [phone], CC: Catherine Madrigal DO; Jose Alejandro MD Senior Quality Assurance Engineer: Signed 15-Mar-2015 Chest 1 View (Portable) Result: Comments: See Note; NOTES: [facility] Imaging Services [address] [place] [address] Radiology Report MR#: [id number] Acct: [id number] Name: RICKI BHARDWAJ Rep #: [id number] : 1945 M 69 From: Jackson Daniel MD PCP: Catherine Madrigal DO Status: DEP ER Study: Chest 1 View (Portable) Date of Exam: 03/15/15 Exam# [id number] Ordering Dr: Jose Alejandro MD STUDY: X [...] MD at 22:36 EDT , Service support [phone], Fax RAD/Chest 1 View (Portable) IMPRESSION: No acute cardiopulmonary pathology status post intubation Electronically Signed: Jackson Daniel MD at 22:36 EDT , Service support [phone], CC: Catherine Madrigal DO; Jose Alejandro MD Senior Quality Assurance Engineer: Signed 07-Dec-2014 Chest PA and Lateral Result: Comments: See Note; NOTES: [facility] Imaging Services [address] [place] [address] Radiology Report MR#: [id number] Acct: [id number] Name: RICKI BHARDWAJ Rep #: [id number] : 1945 M 69 From: Chris Lo MD PCP: Catherine Madrigal DO Status: REG CLI Study: Chest PA and Lateral Date of Exam: 12/07/14 Exam# [id number] Ordering Dr: Suzanne Root STUDY: X-RAY MINNIE [...] MD at 17:48 EDT , Service support [phone], RAD/Chest PA and Lateral IMPRESSION: Stable findings compatible with ch ronic obstructive pulmonary disease. No acute pathology. Electronically Signed: Chris Lo MD at 17:48 EDT , Service support [phone], C C: Suzanne Root; Catherine Madrigal DO Senior Quality Assurance Engineer: Signed 04-Nov-2013 Chest PA and Lateral Result: Comments: See Note; NOTES: [facility] Imaging Services [address] [place] [address] Radiology Report MR#: [id number] Acct: [id number] Name: RICKI BHARDWAJ Rep #: [id number] : 1945 M 68 From: Angel Davis DO PCP: Catherine Madrigal DO Status: REG CLI Study: Chest PA and Lateral Date of Exam: 11/04/13 Exam# [id number] Ordering Dr: Catherine Madrigal DO STUDY: X [...] D.O. 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 Comments: Quit smoking February 2015 following heart attack Status: Active Smoking Status Name Dates Details Former smoker Current every day smoker Vital Signs Date Test Result Details 58-Qvq-044803:10 Temperature 97.6 f Comments: Method: Temporal Pulse [...] kg/m2 Body Surface Area Calculated 2.13 m2 43-Kod-000130:33 Temperature 98.7 f Comments: Method: Temporal Pulse [...] kg/m2 Body Surface Area Calculated 2.13 m2 63-Cgb-706276:14 Pulse 70 /min Comments: Pattern: Regular Respiration [...] kg/m2 Body Surface Area Calculated 2.12 m2 89-Frj-119336:13 Pulse 74 /min Comments: Pattern: Regular Respiration [...] Description Value Details :24 CREATININE FINGERSTICK Comments: [facility] Laboratory[facility] of [address] [place] [address] EGFR WB > 60.0000 mL/min (Normal) CREATININE WB 1.0 mg/dL (Normal) Range: 0.70-1.30 72-Cxa-601473:37 Microscopic Examination Comments: PERFORMED BY: DOROTHY Mata6370 [facility] [id number] Bacteria None seen (Normal) Mucus Threads Present (Normal) Epithelial Cells (non renal) 0-10 {/hpf} (Normal) Range: 0 - 10 RBC 0-2 {/hpf} (Normal) Range: 0 - 2 WBC 0-5 {/hpf} (Normal) Range: 0 - 5 28-Wjg-374598:47 VITAMIN B-12 Comments: PATIENT WAS FASTINGPERFORMED BY: [employer] [id number] BY: [employer] D-Share [facility] [id number] (CYANOCOBALAMIN) (79986) Vitamin B12 579 pg/mL (Normal) Range: 232-1245 56-Gmh-803088:47 TSH (27538) Comments: PATIENT WAS FASTINGPERFORMED BY: [employer] [id number] BY: [employer] [facility] [id number] TSH 0.979 {uIU/mL} (Normal) Range: 0.450-4.500 68-Wlu-163710:37 URINALYSIS, W/ MICRO (95530) Comments: PERFORMED BY: [employer] [facility] [facility] [id number] Microscopic Examination See below: (Normal) Comments: Microscopic was indicated and was performed. Microscopic Examination MICRON (Normal) Comments: Microscopic follows if indicated. Nitrite, Urine Negative (Normal) Urobilinogen,Semi-Qn 0.2 mg/dL (Normal) Range: 0.2-1.0 Bilirubin Negative (Normal) Occult Blood Negative (Normal) Ketones Negative (Normal) Glucose Negative (Normal) Protein Negative (Normal) WBC Esterase Negative (Normal) Appearance Clear (Normal) Urine-Color Yellow (Normal) pH 6.0 (Normal) Range: 5.0-7.5 Specific [place] 1.018 (Normal) Range: 1.005-1.030 13-Thz-109127:37 MICROALBUMIN: CREATININE RATIO Comments: PERFORMED BY: [employer] [facility] [id number] (45864) AND (90401) Alb/Creat Ratio 7.5 {mg/g_creat} (Normal) Range: 0.0-30.0 Albumin, Urine 8.7 ug/mL (Normal) Creatinine, Urine 116.0 mg/dL (Normal) 39-Mik-747832:47 METABOLIC PANEL, Comments: PATIENT WAS FASTINGPERFORMED BY: [employer] [id number] BY: LabCoOcean Medical CenterWpucax3769 [facility] [id number] [facility] ([address]) ALT (SGPT) 12 [iU]/L (Normal) Range: 0-44 [...] 8-27 Glucose 78 mg/dL (Normal) Range: 65-99 17-Whu-231957:47 LIPOPROTEIN, BLD, BY NMR Comments: PATIENT WAS FASTINGPERFORMED BY: [employer] [id number] BY: [employer] Ndaikm8519 Dario [facility] [id number] (16034) LP-IR Score 87 (Abnormal) Comments: INSULIN RESISTANCE MARKER <--Insulin Sensitive Insulin Resistant--> Percentile in Reference PopulationInsulin Resistance ScoreLP-IR Score Low 25th 50th 75th High <27 27 45 63 >63LP-IR Score is inaccurate if patient is non-fasting. .The LP-IR score is a laboratory developed i [facility] that has beenassociated with insulin [...] were developed and their performance characteristicsdetermined by [employer] (powering [employer]). These assays have not been cleared by [...] 1600 - 2000 Very High > 2000 49-Fww-862637:47 CBC W/AUTO DIFF WBC Comments: PATIENT WAS FASTINGPERFORMED BY: BN [facility] Brfjzddnab1385 [facility] [id number] BY: CB [facility] Goyyms3116 [facility] [id number] (59386) Immature Grans (Abs) 0.0 {x10E3/uL} (Normal) Range: [...] 4.14-5.80 WBC 7.6 {x10E3/uL} (Normal) Range: 3.4-10.8 34-Edk-551363:34 HgA1C , Office (63333) HgA1C , Office 5.2 % (Normal) Range: 4.6 - 7.1 :34 Blood Glucose , Office (86765) Blood Glucose , Office 89 (Normal) 5-Rjt-221222:44 Microscopic Examination Comments: PATIENT WAS FASTINGPERFORMED BY: [employer] [address] [id number] BY: [employer] SystemsOcean Medical CenterLvbksa9745 [facility] [id number] Bacteria None seen (Normal) Mucus Threads Present (Normal) Epithelial Cells (non renal) 0-10 {/hpf} (Normal) Range: 0 - 10 RBC None seen {/hpf} (Normal) Range: 0 - 2 WBC 0-5 {/hpf} (Normal) Range: 0 - 5 :44 CALCIFIDIOL (82261) VIT D Comments: PATIENT WAS FASTINGPERFORMED BY: [employer] [address] [id number] BY: QuidOcean Medical CenterOimgcy1189 [facility] [id number] 25 Vitamin D, 25-Hydroxy 25.7 ng/mL (Abnormal) Range: 30.0-100.0 Comments: Vitamin D deficiency has been defined by the [place] of[place]icine and an Endocrine Society practice guideline as alevel of serum 25-OH vitamin D less than 20 ng/mL (1,2).The Endocrine Society went on to further define vitamin Dinsufficiency as a level between 21 and 29 ng/mL (2).1. IOM ([place] of Medicine). 2010. Dietary reference intakes for calcium and D. [place]: The National Academies Press.2. Luca MF, Elena AGARWAL, Vini ALVAREZ, et al. Evaluation, treatment, and prevention of vitamin D deficiency: an Endocrine Society clinical practice guideline. JCEM. 2010; 96(6):1911-30. 1-Dye-882455:44 VITAMIN B-12 (CYANOCOBALAMIN) Comments: PATIENT WAS FASTINGPERFORMED BY: [employer] [id number] BY: [employer] Yeiwnc9873 Bishop RoadDublin [place] [id number] ([address]) Vitamin B12 362 pg/mL (Normal) Range: 232-1245 0-Ijd-072735:44 TSH (85328) Comments: PATIENT WAS FASTINGPERFORMED BY: [employer] [id number] BY: [employer] [facility] Onton[facility] HospitalDublin [place] [id number] TSH 0.957 {uIU/mL} (Normal) Range: 0.450-4.500 1-Tls-507364:44 URINALYSIS, W/ MICRO Comments: PATIENT WAS FASTINGPERFORMED BY: [employer] [id number] BY: [employer] [facility] Centerbl[facility] [place] [id number] ([address]) Microscopic Examination See below: (Normal) Comments: Microscopic was indicated and was performed. Microscopic Examination MICRON (Normal) Comments: Microscopic follows if indicated. Nitrite, Urine Negative (Normal) Urobilinogen,Semi-Qn 0.2 mg/dL (Normal) Range: 0.2-1.0 Bilirubin Negative (Normal) Occult Blood Negative (Normal) Ketones Negative (Normal) Glucose Negative (Normal) Protein Negative (Normal) WBC Esterase Negative (Normal) Appearance Clear (Normal) Urine-Color Yellow (Normal) pH 7.5 (Normal) Range: 5.0-7.5 Specific [place] 1.018 (Normal) Range: 1.005-1.030 5-Aag-445823:44 MICROALBUMIN: CREATININE Comments: PATIENT WAS FASTINGPERFORMED BY: [employer] [id number] BY: [employer] Rxygmt3594 Bishop RoadDublin [place] [id number] RATIO (64456) AND (01669) Alb/Creat Ratio 8.8 {mg/g_creat} (Normal) Range: 0.0-30.0 Albumin, Urine 8.0 ug/mL (Normal) Creatinine, Urine 91.2 mg/dL (Normal) 9-Lkh-475220:44 METABOLIC PANEL, Comments: PATIENT WAS FASTINGPERFORMED BY: [employer] [facility]Co[address] [id number] BY: LabCoOcean Medical CenterTphppw3718 [facility] [id number] [facility] (12358) ALT (SGPT) 9 [iU]/L (Normal) Range: 0-44 [...] 8-27 Glucose 74 mg/dL (Normal) Range: 65-99 8-Jzn-332860:44 LIPOPROTEIN, BLD, BY NMR Comments: PATIENT WAS FASTINGPERFORMED BY: [employer] [id number] BY: DOROTHY LabCo Crhrpt2291 [facility] [id number] (72664) LP-IR Score 77 (Abnormal) Comments: INSULIN RESISTANCE MARKER <--Insulin Sensitive Insulin Resistant--> Percentile in Reference PopulationInsulin Resistance ScoreLP-IR Score Low 25th 50th 75th High <27 27 45 63 >63LP-IR Score is inaccurate if patient is non-fasting. .The LP-IR score is a laboratory developed i [facility] that has beenassociated with insulin [...] were developed and their performance characteristicsdetermined by [employer] (powering [employer]). These assays have not been cleared by [...] 1600 - 2000 Very High > 2000 7-Ens-881254:44 CBC W/AUTO DIFF WBC Comments: PATIENT WAS FASTINGPERFORMED BY: BN [facility] Hfayokgzju6310 [facility] [id number] BY: CB [facility] Xqrvcv4601 [facility] [id number] (64491) Immature Grans (Abs) 0.0 {x10E3/uL} (Normal) Range: [...] 4.14-5.80 WBC 9.2 {x10E3/uL} (Normal) Range: 3.4-10.8 4-Oma-081996:44 PSA (PROSTATE SPECIFIC Comments: PATIENT WAS FASTINGPERFORMED BY: BN [facility] Fdtyfvejqt7373 [facility] [id number] BY: CB [facility] Bfeiyu5420 [facility] [id number] ANTIGEN) (V76.44) Prostate Specific Ag, 0.9 ng/mL (Normal) Range: 0.0-4.0 Serum Comments: [employer] Meet[employer] InternationalIA methodology. .According to the [place] Urological Association, Serum PSA shoulddecrease and remain at undetectable levels after radicalprostatectomy. The AUA defines biochemical recurrence as an initialPSA value 0.2 ng/mL or greater followed by a subsequent confirmatoryPSA value 0.2 ng/mL or greater.Values obtained with d ifferent assay methods or kits cannot be usedinterchangeably. Results cannot be interpreted as absolute evidenceof the presence or absence of malignant disease. 66-Wkq-20253:27 Lipid Profile Comments: Order Date: 05/15/17Order Info: 0788-1 - *Hepatic Function PanelOrder Info: 49414-1 - *Lipid Profile CC PCPComments: 12 hours fasting, may have water.[facility] [address] [place], [place], [id number] VLDL 20 mg/dL (Normal) Range: 5-40 LDL [...] 200-240 mg/dL Borderline >240 mg/dL High Risk 59-Xkr-98270:27 Liver Profile Comments: Order Date: 05/15/17Order Info: 0788-1 - *Hepatic Function PanelOrder Info: 19542-0 - *Lipid Profile CC PCPComments: 12 hours fasting, may have water.[facility] [address] [place], [place], [address] D BILI 0.12 mg/dL (Normal) Range: 0.00-0.30 T BILI 0.40 mg/dL (Normal) Range: 0.20-1.00 ALT 22 U/L (Normal) Range: 16-61 Comments: Please note revised ALT reference range bcfqelmzo93/28/2018. ALK P 96 U/L (Normal) Range: 45-117 AST 17 U/L (Normal) Range: 15-37 GLOB 3.3 g/dL (Normal) Range: 2.2-4.2 ALB 3.8 g/dL (Normal) Range: 3.2-5.0 T PROT 7.1 g/dL (Normal) Range: 6.4-8.2 3-Qfk-679974:28 THROAT CULTURE (75208) Comments: PATIENT NOT FASTINGPERFORMED BY: [facility] Viugly5143 [facility] [id number] Information: SRC:TH Result 1 RRF (Normal) Comments: Routine respiratory thomas Upper Respiratory Culture Final report (Normal) 45-Tsc-68671:26 Lipid Profile Comments: Order Date: 04/22/17Order Info: 0788-1 - *Hepatic Function PanelOrder Info: 84889-3 - *Lipid Profile CC PCPComments: 12 hours fasting, may have water.[facility] [address] [place], [place], [address] VLDL 22 mg/dL (Normal) Range: 5-40 LDL [...] Info: 0788-1 - *Hepatic Function PanelOrder Info: 14433-0 - *Lipid Profile CC PCPComments: 12 hours fasting, may have water.[facility] [address] [facility] [address] [place], [place], [address] D BILI 0.19 mg/dL (Normal) Range: 0.00-0.30 T BILI 0.70 mg/dL (Normal) Range: 0.20-1.00 ALT 22 U/L (Normal) Range: 12-78 ALK P 87 U/L (Normal) Range: 45-117 AST 15 U/L (Normal) Range: 15-37 GLOB 3.1 g/dL (Normal) Range: 2.3-3.5 ALB 3.7 g/dL (Normal) Range: 3.4-5.0 T PROT 6.8 g/dL (Normal) Range: 6.4-8.2 01-Otf-444540:34 PSA,Total - Annual Screen Comments: [facility] [address] [place], [place], [address] PSA,TOT SCREEN 1.88 ng/mL (Normal) Range: 0.00-4.00 Comments: This test was performed using the TPSA assay method for theNATURE'S WAY GARDEN HOUSEGloNav chemistry system. Values obtained with differentassay methods cannot be used interchangably.When changing PSA assays in the course of monitoring apatient, additional sequential testing should be carriedout to confirm baseline values. 7-Jzg-886020:28 PT (PROTHROMBIN TIME) (94317) Comments: PATIENT NOT FASTINGPERFORMED BY: LabCoOcean Medical CenterPgofja5137 [facility] [id number] Prothrombin Time 10.4 {sec} (Normal) Range: 9.1-12.0 INR 1.0 (Normal) Range: 0.8-1.2 Comments: Reference interval is for non-anticoagulated patients. . Suggested INR therapeutic range for Vitamin K anta gonist therapy: Standard Dose (moderate intensity therapeutic range): 2.0 - 3.0 Higher intensity therapeutic range 2.5 - 3.5 3-Rpr-833632:28 CBC, Platelets & Auto Diff Comments: PATIENT NOT FASTINGPERFORMED BY: LabCoOcean Medical CenterDlbier0695 [facility] [id number] Information: [id number], [id number] (13034) Immature Grans (Abs) 0.0 {x10E3/uL} (Normal) Range: [...] 4.14-5.80 WBC 8.4 {x10E3/uL} (Normal) Range: 3.4-10.8 1-Bxa-888405:28 Metabolic Panel, Basic (52109) Comments: PATIENT NOT FASTINGPERFORMED BY: [facility] Zwgvpw3040 [facility] [place] [id number] Calcium, Serum 8.8 mg/dL (Normal) Range: 8.6-10.2 [...] mg/dL (Normal) Range: 65-99 01-Jun-20167:16 Urinalysis, Office (99090) UA - LEUKOCYTE ESTERASE Negative (Normal) UA - NITRITE Negative (Normal) URINE UROBILINGN NELSON TIMED Normal mg/dL (Normal) UA - PROTEIN Negative mg/dL (Normal) UA - PH 7.0 (Normal) UA - BLOOD Non Hemolyzed Moderate (Normal) UA - SPECIFIC GRAVITY 1.010 (Normal) UA - KETONES Negative mg/dL (Normal) UA - BILIRUBIN Negative (Normal) UA - GLUCOSE Negative (Normal) 88-Zcd-128808:07 CBC-Complete Blood Cnt No Diff Comments: [facility] [address] [place], [address] MPV 10.2 fL (Normal) Range: 6.2-12.0 PLT [...] (Normal) Range: 4.4-11.0 :39 HgA1C , Office (38574) HgA1C , Office 5.2 % (Normal) Range: 4.6 - 7.1 :39 Blood Glucose , Office (23366) Blood Glucose , Office 81 (Normal) :18 Microscopic Examination Comments: PATIENT WAS FASTINGPERFORMED BY: [employer] [facility] [id number] Bacteria None seen (Normal) Mucus Threads Present (Normal) Crystal Type Calcium Oxalate (Normal) Crystals Present (Abnormal) Epithelial Cells (non renal) 0-10 {/hpf} (Normal) Range: 0 - 10 RBC 0-2 {/hpf} (Normal) Range: 0 - 2 WBC 0-5 {/hpf} (Normal) Range: 0 - 5 :18 TSH (81053) Comments: PATIENT WAS FASTINGPERFORMED BY: [employer]70 [facility] [id number] TSH 0.790 {uIU/mL} (Normal) Range: 0.450-4.500 :18 URINALYSIS, W/ MICRO (21952) Comments: PATIENT WAS FASTINGPERFORMED BY: [employer]-Share [facility] [id number] Microscopic Examination See below: (Normal) Comments: Microscopic was indicated and was performed. Microscopic Examination MICRON (Normal) Comments: Microscopic follows if indicated. Nitrite, Urine Negative (Normal) Urobilinogen,Semi-Qn 0.2 mg/dL (Normal) Range: 0.2-1.0 Bilirubin Negative (Normal) Occult Blood Negative (Normal) Ketones Negative (Normal) Glucose Negative (Normal) Protein Trace (Normal) WBC Esterase Negative (Normal) Appearance Clear (Normal) Urine-Color Yellow (Normal) pH 6.0 (Normal) Range: 5.0-7.5 Specific [place] 1.028 (Normal) Range: 1.005-1.030 :18 MICROALBUMIN: CREATININE RATIO Comments: PATIENT WAS FASTINGPERFORMED BY: [employer] Pcugee3708 [facility] [id number] (35681) AND (96885) Microalb/Creat Ratio 7.5 {mg/g_creat} (Normal) Range: 0.0-30.0 Microalbumin, Urine 13.6 ug/mL (Normal) Creatinine, Urine 182.3 mg/dL (Normal) :18 METABOLIC PANEL, COMPREHENSIVE Comments: PATIENT WAS FASTINGPERFORMED BY: [employer] Cgmwpu0030 [facility] [id number] (69524) ALT (SGPT) 13 [iU]/L (Normal) Range: 0-44 [...] mg/dL (Normal) Range: 65-99 :18 LIPID PANEL (76853) Comments: PATIENT WAS FASTINGPERFORMED BY: [employer] Snktfh3324 [facility] [id number]; fu 04-05-16 LDL/HDL Ratio 1.8 {ratio_units} (Normal) [...] DIFF WBC Comments: PATIENT WAS FASTINGPERFORMED BY: Cantaloupe SystemsOcean Medical CenterOzzyga3420 [facility] [id number] Information: [id number] (66259) Immature Grans (Abs) 0.0 {x10E3/uL} (Normal) Range: [...] (Normal) Range: 3.4-10.8 :26 HgA1C , Office (67742) HgA1C , Office 5.3 % (Normal) Range: 4.6 - 7.1 :26 Blood Glucose , Office (50735) Blood Glucose , Office 86 (Normal) :36 LIPID PANEL (04039) Comments: PATIENT WAS FASTINGPERFORMED BY: LabCoOcean Medical CenterMvkrzv4112 [facility] [id number] Information: [id number] LDL/HDL Ratio 1.4 {ratio_units} (Normal) Range: 0.0-3.6 [...] mg/dL (Abnormal) Range: 100-199 :08 LIPID PANEL (53875) Comments: copy to Sprout; PATIENT WAS FASTINGPERFORMED BY: Oravel6370 [address] [facility]ton[facility] HospitalCentec NetworksDor[facility] Dix Hospital [id number]; apt. 06-23-15 LDL/HDL Ratio 1.7 {ratio_units} (Normal) [...] METABOLIC PANEL, Comments: PATIENT WAS FASTINGPERFORMED BY: Oravel6370 [facility] [id number] Information: [id number] COMPREHENSIVE (31151) ALT (SGPT) 13 [iU]/L (Normal) Range: 0-44 [...] Glucose, Serum 93 mg/dL (Normal) Range: 65-99 90-Hbe-835742:54 Basic Metabolic Profile (BMP) Comments: Serial Specimen #1, #2 or #3? 1'TROP' Serial specimen #1, #2, #3, or #4: 1Test performed at:[facility] [address] [place], [place] [address] GAP 5 (Normal) Range: 5-15 CO2 29.0 [...] :54 CBC W/Diff, Automated Comments: Test performed at:[facility] [address] [place] [address] ; Ordered by another doctor Absolute Lymph [...] #1, #2, #3, or #4: 1Test performed at:[facility] [address] [place], [place] [address] CPKMB 1.0 ng/mL (Normal) Range: 0.0-5.0 Comments: CK-MB and RI Interpretation MB Relative Index Non-AMI <or= 5 NA Indeterminate > 5 <or= 4 AMI > 5 > 4 CPK TOTAL 101 U/L (Normal) Range: 39-308 67-Zfw-616326:54 Troponin-I Comments: Serial Specimen #1, #2 or #3? 1'TROP' Serial specimen #1, #2, #3, or #4: 1Test performed at:[facility] Jqnnfdihkv0938 [facility] [place] [address] TROPONIN-I < 0.02 ng/mL (Normal) Comments: TROPONIN-I EXPECTED VALUES <0.05 NEGATIVE 0.06 - 0.59 AT RISK OF MS > OR = 0.60 SUGGEST MS :33 Metabolic Panel, Basic Comments: PATIENT NOT FASTINGPERFORMED BY: [place] [id number] (79833) Calcium, Serum 9.1 mg/dL (Normal) Range: 8.6-10.2 [...] (Normal) Range: 65-99 :33 PT (Prothrobim Time) (42569) Comments: PATIENT NOT FASTINGPERFORMED BY: [place] [id number] Prothrombin Time 10.1 {sec} (Normal) Range: 9.1-12.0 INR 1.0 (Normal) Range: 0.8-1.2 Comments: Reference interval is for non-anticoagulated patients. . Suggested INR therapeutic range for Vitamin K anta gonist therapy: Standard Dose (moderate intensity therapeutic range): 2.0 - 3.0 Higher intensity therapeutic range 2.5 - 3.5 18-Cjs-396195:33 CBC, Platelets & Auto Comments: PATIENT NOT FASTINGPERFORMED BY: LabCoOcean Medical CenterVvmqal7633 [facility] [id number] Information: [id number] Diff (46312) Immature Grans (Abs) 0.0 {x10E3/uL} (Normal) Range: [...] 4.14-5.80 WBC 9.6 {x10E3/uL} (Normal) Range: 3.4-10.8 15-Vlh-252292:07 TSH (68977) Comments: PATIENT NOT FASTINGPERFORMED BY: LabCoOcean Medical CenterDjiirl2218 [facility] [id number] TSH 1.090 {uIU/mL} (Normal) Range: 0.450-4.500 :07 CBC, Platelets & Auto Comments: PATIENT NOT FASTINGPERFORMED BY: LabCoOcean Medical CenterCxokad3860 [facility] [id number] Information: [id number] Diff (10281) Immature Grans (Abs) 0.0 {x10E3/uL} (Normal) Range: [...] 4.14-5.80 WBC 8.6 {x10E3/uL} (Normal) Range: 3.4-10.8 06-Edh-777235:07 Metabolic Panel, Comprehensive Comments: PATIENT NOT FASTINGPERFORMED BY: CB [facility] Fmtmnf3141 [facility] [id number] (62158) ALT (SGPT) 15 [iU]/L (Normal) Range: 0-44 [...] Glucose, Serum 80 mg/dL (Normal) Range: 65-99 3-Ktg-111034:08 METANEPHRINES - URINE (20614) Comments: PATIENT NOT FASTINGPERFORMED BY: [facility] Fpkhhysxna0755 [facility] [id number] Metanephrine, U,24hr 135 {ug/24_hr} (Normal) Range: 45-290 Comments: (Hypertensive) >17 years 11 months: 35 - 460 Metanephrine, Ur 82 ug/L (Normal) Normetanephr.,U,24h 343 {ug/24_hr} (Normal) Range: 82-500 Comments: (Hypertensive) >17 years 11 months: 110 - 1050 Normetanephrine, Ur 208 ug/L (Normal) 9-Yoz-407865:08 CATECHOLAMINES TOTAL, URINE Comments: PATIENT NOT FASTINGPERFORMED BY: [employer] [id number] Information: SRC:LEANNA [id number] START 4@6:10AM 1,650ML FINISH 05/28/14@6: (19468) Dopamine, Ur, 24hr 117 {ug/24_hr} (Normal) Range: 0-510 Dopamine, Urine 71 ug/L (Normal) Norepinephrine,U,24h 51 {ug/24_hr} (Normal) Range: 0-135 Norepinephrine, Ur 31 ug/L (Normal) Epinephrine, U, 24hr 7 {ug/24_hr} (Normal) Range: 0-20 Epinephrine, Urine 4 ug/L (Normal) 9-Leg-707468:08 URINE VMA (80145) Comments: PATIENT NOT FASTINGPERFORMED BY: [employer] [id number] VMA, Urine, 24hr 3.1 {mg/24_hr} (Normal) Range: 0.0-7.5 VMA, Urine 1.9 mg/L (Normal) 61-Uia-178126:47 Microscopic Examination Comments: PATIENT WAS FASTINGPERFORMED BY: Quid Xdrydh9202 [facility] [id number] Bacteria Few (Normal) Mucus Threads Present (Normal) Epithelial Cells (non renal) 0-10 {/hpf} (Normal) Range: 0 - 10 RBC 0-3 {/hpf} (Normal) Range: 0 - 3 WBC 0-5 {/hpf} (Normal) Range: 0 - 5 12-Nja-56915:42 PSA (PROSTATE SPECIFIC Comments: PATIENT WAS FASTINGPERFORMED BY: QuidOcean Medical CenterHfhlil1050 [facility] [id number] ANTIGEN) (V76.44) Prostate Specific Ag, 1.5 ng/mL (Normal) Range: 0.0-4.0 Serum Comments: [place] ECLIA methodology. .According to the [place] Urological Association, Serum PSA shoulddecrease and remain [...] of malignant disease. :42 Vitamin D Hydroxy (34668) Comments: PATIENT WAS FASTINGPERFORMED BY: Oravel6370 Gaz[employer] Entertainmentblin [place] [id number] Vitamin D, 25-Hydroxy 40.9 ng/mL (Normal) Range: 30.0-100.0 Comments: Vitamin D deficiency has been defined by the [place] of[place]icine and an Endocrine Society practice guideline as alevel of serum 25-OH vitamin D less than 20 ng/mL (1,2).The Endocrine Society went on to further define vitamin Dinsufficiency as a level between 21 and 29 ng/mL (2).1. IOM ([place] of Medicine). 2010. Dietary reference intakes for calcium and D. [place]: The National Academies Press.2. Luca MF, Elena NC, Vini ALVAREZ, et al. Evaluation, treatment, and prevention of vitamin D deficiency: an Endocrine Society clinical practice guideline. JCEM. 2010; 96(7):1911-30. :42 TSH (29818) Comments: PATIENT WAS FASTINGPERFORMED BY: [employer] Wftbub9860 [employer] Entertainmentbl[place] [id number] TSH 1.150 {uIU/mL} (Normal) Range: 0.450-4.500 :42 URINALYSIS, W/ MICRO (29795) Comments: PATIENT WAS FASTINGPERFORMED BY: Oravel6370 [address] [facility] [place] [id number] Microscopic Examination See below: (Normal) Nitrite, Urine Negative (Normal) Urobilinogen,Semi-Qn 0.2 mg/dL (Normal) Range: 0.0-1.9 Bilirubin Negative (Normal) Occult Blood Negative (Normal) Ketones Negative (Normal) Glucose Negative (Normal) Protein Negative (Normal) WBC Esterase Trace (Abnormal) Appearance Clear (Normal) Urine-Color Yellow (Normal) pH 6.5 (Normal) Range: 5.0-7.5 Specific [place] 1.011 (Normal) Range: 1.005-1.030 :42 MICROALBUMIN: CREATININE RATIO Comments: PATIENT WAS FASTINGPERFORMED BY: Quid Lwfgih1822 [facility] [id number] (51341) AND (80420) Microalb/Creat Ratio 17.6 {mg/g_creat} (Normal) Range: 0.0-30.0 Microalbumin, Urine 13.2 ug/mL (Normal) Range: 0.0-17.0 Creatinine, Urine 75.1 mg/dL (Normal) Range: 22.0-328.0 :42 METABOLIC PANEL, COMPREHENSIVE Comments: PATIENT WAS FASTINGPERFORMED BY: Oravel6370 [facility] [id number] (16968) ALT (SGPT) 13 [iU]/L (Normal) Range: 0-44 [...] mg/dL (Normal) Range: 65-99 :42 LIPID PANEL (62329) Comments: PATIENT WAS FASTINGPERFORMED BY: [employer]70 [facility] [id number] LDL/HDL Ratio 3.5 {ratio_units} (Normal) Range: 0.0-3.6 [...] MANUAL DIFF Comments: PATIENT WAS FASTINGPERFORMED BY: Oravel6370 [facility] [id number] Information: [id number] (29937) Immature Grans (Abs) 0.0 {x10E3/uL} (Normal) Range: [...] 4.14-5.80 WBC 8.1 {x10E3/uL} (Normal) Range: 3.4-10.8 5-Qek-370386:47 CBC with manual diff Comments: PATIENT NOT FASTINGPERFORMED BY: LabCoOcean Medical CenterInprhe8731 [facility] [id number] Information: [id number] (22191) Immature Grans (Abs) 0.0 {x10E3/uL} (Normal) Range: [...] 4.14-5.80 WBC 6.8 {x10E3/uL} (Normal) Range: 4.0-10.5 54-Vff-038034:21 Metabolic Panel, Comprehensive Comments: PATIENT NOT FASTINGPERFORMED BY: LabCoOcean Medical CenterQgmycg0509 [facility] [id number] (79278) ALT (SGPT) 16 [iU]/L (Normal) Range: 0-44 [...] Glucose, Serum 81 mg/dL (Normal) Range: 65-99 21-Pez-167866:21 CBC, Platelets & Auto Comments: PATIENT NOT FASTINGPERFORMED BY: DOROTHY [facility] Dpjxdv2551 [facility] [id number] Information: [id number] Diff (83831) Immature Grans (Abs) 0.0 {x10E3/uL} (Normal) Range: [...] 4.14-5.80 WBC 6.3 {x10E3/uL} (Normal) Range: 4.0-10.5 26-Ydt-078715:09 THYROID Radiology Report See Note (Normal) Comments: [...] Julien M.D.May 20, 2012 at 3:49:16 PM [id number] Signed GP/ GP If you are the referring physician and would like to consult with theradiologist who provided this interpretation, please contact Denton Chau at [phone]. If this radiologist is unava ilable, youwill be directed to another radiologist to assist. If you are a patient with a question regarding this report, pleasecontactyour referring physician directly. Professional Interpretation Prov ided By: Fanattac, Phone , These documents contain legally protected [...] documents. Dictated on 05/20/12 1107 by Erich LANG,Mojganscribed on 05/20/12 1555 by ITS IMPORTSign by Erich LANG,Franko on 05/20/12 1556 Sign by: Franko Julien MD 9-Zbo-265139:48 LIPID PANEL (87689) Comments: PATIENT WAS FASTINGPERFORMED BY: LabCoOcean Medical CenterImctmb9477 [facility] [id number] Information: [id number],2ND ORDER NO DRAW F EE LDL Cholesterol Calc 103 mg/dL (Abnormal) Range: 0-99 LDL/HDL Ratio 3.2 {ratio_units} (Normal) Range: 0.0-3.6 HDL Cholesterol 32 mg/dL (Abnormal) Comments: According to ATP-III Guidelines, HDL-C >59 mg/dL is considered anegative risk factor for CHD. VLDL Cholesterol Tone 33 mg/dL (Normal) Range: 5-40 Triglycerides 163 mg/dL (Abnormal) Range: 0-149 Cholesterol, Total 168 mg/dL (Normal) Range: 100-199 3-Zqk-384910:48 CALCIFEDIOL (87780) Comments: PATIENT WAS FASTINGPERFORMED BY: LabCoOcean Medical CenterCujdox8610 [facility] [id number] Vitamin D, 25-Hydroxy 68.9 ng/mL (Normal) Range: 30.0-100.0 Comments: Vitamin D deficiency has been defined by the [place] of[place]icine and an Endocrine Society practice guideline as alevel of serum 25-OH vitamin D less than 20 ng/mL (1,2).The Endocrine Society went on to further define vitamin Dinsufficiency as a level between 21 and 29 ng/mL (2).1. IOM ([place] of [employer]). 2010. Dietary reference intakes for calcium and D. [place]: The National Academies Press.2. Luca MILLS, Elena AGARWAL, Vini ALVAREZ, et al. Evaluation, treatment, and prevention of vitamin D deficiency: an Endocrine Society clinical practice guideline. JCEM. 2010; 96(7):1911-30. 92-Taj-10723:33 CHEST, PA AND LATERAL Radiology Report See [...] seen. Signed:Bear Julien M.D.2012 at 2:44:05 PM [id number] Signed GP/GP If you are the referring physician and would like to consult with theradiologist who provided this interpre tation, please contact Denton Chau at [phone]. If this radiologist is unavailable, youwill be directed to another radiologist to assist. If you are a patient with a question regarding t his report, pleasecontactyour referring physician directly. Professional Interpretation Provided By: Fanattac, Phone , These documents contain legally protected [...] Erich LANG,Franko on 05/08/12 1451 Sign by: Erich LANG,Franko :33 Microscopic Examination Comments: PATIENT WAS FASTINGPERFORMED BY: LabCo Qzlglj3787 [facility] [id number] Bacteria None seen (Normal) Mucus Threads Present (Normal) Epithelial Cells (non renal) 0-10 {/hpf} (Normal) Range: 0 - 10 RBC 0-3 {/hpf} (Normal) Range: 0 - 3 WBC 0-5 {/hpf} (Normal) Range: 0 - 5 :33 TSH (57616) Comments: PATIENT WAS FASTINGPERFORMED BY: LabKoa.la Qwdiej1064 [facility] [id number] TSH 0.773 {uIU/mL} (Normal) Range: 0.450-4.500 : URINALYSIS, W/ MICRO (05217) Comments: PATIENT WAS FASTINGPERFORMED BY: LabKoa.la Dyelib0638 [facility] [id number] Microscopic Examination See below: (Normal) Microscopic Examination MICRON (Normal) Comments: Microscopic follows if indicated. Nitrite, Urine Negative (Normal) Urobilinogen,Semi-Qn 1.0 mg/dL (Normal) Range: 0.0-1.9 Bilirubin Negative (Normal) Occult Blood Negative (Normal) Ketones Negative (Normal) Glucose Negative (Normal) Protein Trace (Normal) WBC Esterase Negative (Normal) Appearance Clear (Normal) Urine-Color Yellow (Normal) pH 6.0 (Normal) Range: 5.0-7.5 Specific [place] 1.019 (Normal) Range: 1.005-1.030 :33 MICROALBUMIN: CREATININE RATIO Comments: PATIENT WAS FASTINGPERFORMED BY: [employer] Dvmbkw0297 [facility] [id number] (75282) AND (46360) Microalb/Creat Ratio 3.7 {mg/g_creat} (Normal) Range: 0.0-30.0 Creatinine, Urine 262.2 mg/dL (Normal) Range: 22.0-328.0 Microalbumin, Urine 9.6 ug/mL (Normal) Range: 0.0-17.0 :33 METABOLIC PANEL, COMPREHENSIVE Comments: PATIENT WAS FASTINGPERFORMED BY: [employer]70 [facility] [id number] (91309) ALT (SGPT) 19 [iU]/L (Normal) Range: 0-55 [...] mg/dL (Normal) Range: 65-99 :33 LIPID PANEL (20658) Comments: PATIENT WAS FASTINGPERFORMED BY: [employer]70 [facility] [id number] LDL/HDL Ratio 3.7 {ratio_units} (Abnormal) Range: 0.0-3.6 [...] MANUAL DIFF Comments: PATIENT WAS FASTINGPERFORMED BY: LabCoOcean Medical CenterVhopfg8459 [facility] [id number] Information: [id number] (84453) Immature Grans (Abs) 0.0 {x10E3/uL} (Normal) Range: [...] 4.14-5.80 WBC 8.7 {x10E3/uL} (Normal) Range: 4.0-10.5 7-Vfk-627299:48 PSA (PROSTATE SPECIFIC Comments: PATIENT NOT FASTINGPERFORMED BY: DOROTHY [facility] Bksbyp5669 Dario Wong [place] [id number] Information: [id number],2ND ORDER NO DRAW F EE ANTIGEN) (V76.44) Prostate Specific Ag, 0.7 ng/mL (Normal) Range: 0.0-4.0 Serum Comments: Red Swoosh ECLIA methodology. .According to the [place] [employer], Serum PSA shoulddecrease and remain at undetectable levels after radicalprostatectomy. The AUA defines biochemical recurrence as an initialPSA value 0.2 ng/mL or greater followed by a subsequent confirmatoryPSA value 0.2 ng/mL or greater.Values obtained with d ifferent assay methods or kits cannot be usedinterchangeably. Results cannot be interpreted as absolute evidenceof the presence or absence of malignant disease. 1-Tvu-610098:51 CBCD,SMEAR DIFF MACROCYTE 1+ (Normal) RED CELL [...] NEGATIVE CLARITY CLEAR (Normal) COLOR YELLOW (Normal) 9-Vsk-581452:51 LIPID VLDL 35 mg/dL (Normal) Range: 5-40 [...] 200-240 mg/dL Borderline >240 mg/dL High Risk 9-Qiu-297667:51 MICROALB:CRE UR MALB:CREAT 23.7 {mg/g_CRE} (Normal) MICROALBUMIN,UR 23.6 mg/L (Normal) UR CREAT 99.5 mg/dL (Normal) 8-Yfu-614978:51 TSH 1.15 {uIU/mL} (Normal) Range: 0.358-3.74 :19 THYROID (HP) Radiology Report See Note (Normal) Comments: Exam Number: [id number] LINICAL:Goiter. Bilateral thyroid nodules. ULTRASOUND THYROID TECHNIQUE:Multiple [...] DAMON M.D. :45 CBCD,SMEAR DIFF Comments: ORDERED PSA,LITO ORDERED EVERYTHING BUT PSA PLT EST SeeNote [...] Range: 4.4-11.0 :45 COMP METABOLIC Comments: ORDERED PSA,LITO ORDERED EVERYTHING BUT PSA CL 107 mmol/L [...] FREE T3 3.0 pg/mL (Normal) Comments: ORDERED PSA,BMP ORDERED EVERYTHING BUT PSA Range: 2.18-3.98 :45 LIPID Comments: ORDERED PSA,BMPDRMINH ORDERED EVERYTHING BUT PSA VLDL 30 mg/dL (Normal) Range: 5-40 CHOL 172 mg/dL (Normal) Comments: <200 mg/dL Csbxuwvhy897-748 mg/dL Borderline>240 mg/dL High Risk HDL 34 [...] PSA, SCREEN 0.7 ng/mL (Normal) Comments: ORDERED PSA,BMP ORDERED EVERYTHING BUT PSA Range: 0.0-4.0 :45 T4 FREE DIRECT 0.94 ng/dL (Normal) Comments: ORDERED PSA,BMP ORDERED EVERYTHING BUT PSA Range: 0.76-1.46 :45 TSH 0.77 {uIU/mL} (Normal) Comments: ORDERED PSA,LITO ORDERED EVERYTHING BUT PSA Range: 0.358-3.74 39-Rax-21801:15 HEPATOBILIARY IMAGING Radiology Report See Note (Normal) Comments: Exam Number: [id number] HEPATOBILIARY SCAN WITH KINEVAC HISTORYThis is a 64-year-old male patient with [...] scan with Kinevac. Reported By: FRANKO JULIEN 29-Ezp-279130:21 ABDOMEN/PELVIS WITH CONTRAST Radiology Report See Note (Normal) Comments: Exam Number: [id number] CT SCAN OF THE ABDOMEN AND PELVIS [...] fluidat this time. Reported By: FRANKO JULIEN 76-Cck-38328:49 GALLBLADDER Radiology Report See Note (Normal) Comments: Exam Number: [id number] CLINICAL:Right upper quadrant pain. LIMITED ABDOMINAL ULTRASOUND [...] right kidney. Reported By: JENNY DAMON M.D. 44-Sgo-546798:44 Lipase (65325) Comments: PATIENT NOT FASTINGPERFORMED BY: [facility] Ifgfoq9027 [facility] [id number] Lipase, Serum 46 U/L (Normal) Range: 0-59 41-Gme-524759:44 C-REACT PROT HIGH SENS(hsCRP) Comments: PATIENT NOT FASTINGPERFORMED BY: [employer] Nitemb3697 [facility] [id number] ([id number]) C-Reactive Protein, Cardiac 2.96 mg/L (Normal) Range: 0.00-3.00 Comments: Relative Risk for Future Cardiovascular EventLow <1.00Average 1.00 - 3.00High >3.00 42-Myj-089101:44 Amylase (41381) Comments: PATIENT NOT FASTINGPERFORMED BY: [facility]Hnkzjt5458 [facility] [id number] Amylase, Serum 44 U/L (Normal) Range: 31-124 13-Ehe-490770:44 CBC WITH MANUAL DIFF Comments: PATIENT NOT FASTINGPERFORMED BY: [facility] [place] [id number] Information: [id number] ([id number]) Baso (Absolute) 0.1 {x10E3/uL} (Normal) Range: 0.0-0.2 [...] 4.10-5.60 WBC 8.1 {x10E3/uL} (Normal) Range: 4.0-10.5 26-Ckv-313627:44 METABOLIC PANEL, COMPREHENSIVE Comments: PATIENT NOT FASTINGPERFORMED BY: [facility] CenterLzjhlo2699 [facility] [id number] (78079) A/G Ratio 1.8 (Normal) Range: 1.1-2.5 Alkaline [...] Glucose, Serum 75 mg/dL (Normal) Range: 65-99 65-Frr-909672:00 Anaerobic and Aerobic Culture Comments: Clinical Information: SRC:FM LEFT FOREARM PERFORMED BY: DOROTHY [facility] Oetcyo0436 [facility] [id number] Aerobic Culture Final report (Normal) Anaerobic Culture [...] oxacillin predictssusceptibility or resistance to (a) other gxvb-delwmaokh-kabigwydg icillins suc h as cloxacillin and dicloxacillin, (b) combinationsof a penicillin and a beta-lactamase inhibitor, and(c) anti-staphylococcal cephalosporins. Routine testing of otherpenicillins, beta-lactam/beta-lacta guerrero inhibitor combinations,cephems, and carbapenems is not advised by the CLSI Standards(V219-X26, 2005). Result 2 Enterobacter cloacae Comments: Heavy growth (Normal) 39-Ddy-57399:53 CHEST WITHOUT CONTRAST Radiology Report See Note (Normal) Comments: Exam Number: [id number] CLINICAL:Follow- up lung nodule. CT CHEST WITHOUT [...] previous report. Reported By: JENNY DAMON M.D. 55-Oey-45680:51 THYROID () Radiology Report See Note (Normal) Comments: Exam Number: [id number] CLINICAL:Goiter. ULTRASOUND THYROID COMPARISON:Thyroid ultrasound dated 02/24/09 [...] significantly changed. Reported By: JENNY DAMON M.D. 0-Jwf-286480:15 THYROID Radiology Report See Note (Normal) Comments: Exam Number: [id number] CLINICAL:63-year-old male follow-up nodules seen on CT [...] study recommended. Reported By: RUBÉN OREILLY M.D. 25-Zqx-922070:25 CHEST W/WO CONTRAST Radiology Report See Note (Normal) Comments: Exam Number: [id number] CLINICAL:Cough. Abnormal chest x-ray. CT CHEST WITH [...] thyroid lobe. Reported By: JENNY DAMON M.D. 1-Jyp-292364:22 CHEST, PA AND LATERAL Radiology Report See Note (Normal) Comments: Exam Number: [id number] TWO VIEWS OF THE CHEST HISTORYThe patient [...] be considered. Reported By: VICTORINO VEGA M.D. 43-Uoi-690697:20 Rapid Flu (92746 x 2) INFLUENZA IMMUNOASSY DIRECT OPTICAL OBSERV [...] disease) CAD (coronary artery disease) : Reviewed Data Entry Technician Letter Indication: CAD (coronary artery disease) [...] disease) CAD (coronary artery disease) : Reviewed Data Entry Technician Letter Indication: CAD (coronary artery disease) [...] mellitus CAD (coronary artery disease) : Reviewed Data Entry Technician Letter Indication: CAD (coronary artery disease) [...] disease) CAD (coronary artery disease) : Reviewed Data Entry Technician Letter Indication: CAD (coronary artery disease) [...] Hyperlipidemia CAD (coronary artery disease) : Reviewed Data Entry Technician Letter Indication: CAD (coronary artery disease) [...] Red Flags Planned Observations HEPATIC FUNCTION PANEL (69153)Indication: Hyperlipidemia On: 04-Ktc-881343:51 Request LIPOPROTEIN, BLD, BY NMR (03837)Indication: Hyperlipidemia On: 57-Iye-607940:51 Request VITAMIN B-12 (CYANOCOBALAMIN) (94471)Indication: Vitamin B12 deficiency On: 77-Fmw-621509:08 Request Rapid Strep Test, Office (62965)Indication: Body aches On: 0-Atl-030604:10 Request Rapid Flu (99332 x 2)Indication: Body aches On: 7-Gjx-165850:10 Request URINALYSIS, W/ MICRO (07332)Indication: Hypertension, essential, benign On: : Request CBC W/AUTO DIFF WBC (27352)Indication: Hypertension, essential, benign On: Request CBC with auto diff (71033)Indication: Controlled diabetes mellitus On: Request MICROALBUMIN: CREATININE RATIO (86839) AND (03505)Indication: Controlled diabetes mellitus On: : Request METABOLIC PANEL, COMPREHENSIVE (42777)Indication: Controlled diabetes mellitus On: : Request LIPID PANEL (23882)Indication: Controlled diabetes mellitus On: Request HgA1C , Office (75217)Indication: Controlled diabetes mellitus On: Request TSH (64723)Indication: Anxiety On: : Request URINALYSIS, W/ MICRO (36468)Indication: Hypertension, essential, benign On: Request MICROALBUMIN: CREATININE RATIO (68256) AND (13489)Indication: Hypertension, essential, benign On: 53 Request METABOLIC PANEL, COMPREHENSIVE (74146)Indication: Hypertension, essential, benign On: 53 Request LIPID PANEL (34998)Indication: Hypertension, essential, benign On: Request CBC WITH MANUAL DIFF (93808)Indication: Hypertension, essential, benign On: :53 Request T4, FREE (THYROXINE) (51932)Indication: Thyroid nodule On: Request T3, FREE (TRIDOTHYRONINE) (40243)Indication: Thyroid nodule On: Request TSH (84912)Indication: Thyroid nodule On: Request URINALYSIS, W/ MICRO (95664)Indication: Hypertension, essential, benign On: Request MICROALBUMIN: CREATININE RATIO (27285) AND (08223)Indication: Hypertension, essential, benign On: Request METABOLIC PANEL, COMPREHENSIVE (22549)Indication: Hypertension, essential, benign On: 9-Sep-25065:27 Request LIPID PANEL (78086)Indication: Hypertension, essential, benign On: :27 Request CBC WITH MANUAL DIFF (26574)Indication: Hypertension, essential, benign On: :27 Request BACT CULTURE ANY-ANAEROBIC (93228)Indication: Folliculitis On: :23 Request EDELMIRA CULTURE-OTHER (13071)Indication: Folliculitis On: :23 Request Planned Procedures Flu Vaccine (Quadrivalent) On: 12-Jun-2018 Intent [id number]: Keke Mike Comments: Lot #[id number]/30/2019Site-L dltd, IMDose prefilled syringegiven by:ESTHER Boggs reviewed and ABN signed B 12 Injection, 1000 mcg On: 17-Apr-2018 Intent (J3420)By: Jose APARIICO, Comments: 1 ml given im lt arm lot [id number] exp 05/14 Catherine Jose APARICIO, Catherine B 12 Injection, 1000 mcg On: 20-Feb-2018 Intent (J3420)By: Visit, Nurse Comments: [id number] exp 11/11 B 12 Injection, 1000 mcg On: 23-Jan-2018 Intent (J3420)By: Jose APARICIO, Comments: Vitamin b12 1000mcg injection lot:exp:L DELT IMpt tolerated well MSMITH,MANAGER REHAB Catherine Jose DO, Catherine B 12 Injection, 1000 mcg On: 16-Jan-2018 Intent (J3420)By: Florentino Amos Comments: Vitamin b12 1000mcg injection lot:[id number]:05/2019L DELT IMpt tolerated well MSMITH,MANAGER REHAB B 12 Injection, 1000 mcg On: 09-Jan-2018 Intent (J3420)By: Jose APARICIO, Comments: Vitamin b12 1000mcg injection lot:[id number]:05/2019L DELT IMpt tolerated well MSMITH,MANAGER REHAB Catherine Jose DO, Catherine B 12 Injection, 1000 mcg On: 26-Dec-2017 Intent (J3420)By: Jose APARICIO, Comments: Vitamin b12 1000mcg injection lot:[id number]:05/2019L DELT IMpt tolerated well MSMITH,MANAGER REHAB Catherine Jose DO, Catherine [place] (94475)By: On: 19-Dec-2017 Intent Catherine Madrigal DO Comments: [id number]/.65mlin [id number]/L arm, IM -- dltdMLONGmlCatherine nuñez DO ELECTROCARDIOGRAM, COMPLETE On: 19-Dec-2017 Intent (ECG) (68520)By: Jose APARICIO, Comments: nsr no acute chg - Catherine Mathis DO B 12 Injection, 1000 mcg On: 19-Dec-2017 Intent (J3420)By: Jose APARICIO, Comments: lot:[id number]:rte:IM left deltoid dose:1ml given by:BRUNILDA Pedro lpn, DO, Kathleen Wax Currettes (27835)By: On: 11-Oct-2016 Intent Maggie WORLEY Bijal Ear Irrigation (19634)By: On: 11-Oct-2016 Intent Maggie WORLEY Bijal Comments: right ear irrigated with watertolerated well-- used currrette to revomve wax by dr madrigal and denisse butts noted internallymoderate amount light yellow wax removed with some blood residuewax currette used by Denisse Ann CNP Wax Currettes (16946)By: On: 17-Jul-2016 Intent Maggie WORLEY Bijal Ear Irrigation (78079)By: On: 17-Jul-2016 Intent Catherine Madrigal DO Comments: Amount/color removed cerumen:large amt, blackish brown from both earsOUtcome:clearUsed wax curettes:yes and tweezersEar Irrigation done by:Catherine Padilla DO ELECTROCARDIOGRAM, COMPLETE On: 01-Jun-2016 Intent (ECG) (83140)By: Ivett DAVIS, Suzanne Duncan Ultrasound - ThyroidBy: On: 26-Sep-2015 Intent Catherine Madrigal DO, DO, Kathleen Flu Vaccine (Quadrivalent) On: 23-Jun-2015 Intent [id number]: Catherine Madrigal DO, DO, Kathleen Radiology - ChestBy: Ivett On: 07-Dec-2014 Intent Suzanne DAVIS ELECTROCARDIOGRAM, COMPLETE On: 07-Dec-2014 Intent (ECG) (87750)By: Ivett DAVISSuzanne Cartoid DopplerBy: Jose APARICIO, On: 25-May-2014 Intent Catherine Mathis DO Renal Duplex ScanBy: Jose On: 25-May-2014 Intent DOCatherine DO, Catherine EKG (95195)By: Jose APARICIO, On: 25-May-2014 Intent Catherine Mathis DO Comments: nsr no acute chg some mild LVH suggested ADMINISTRATION OF On: 04-Nov-2013 Intent PNEUMOCOCCAL VACCINE (G0009)By: Catherine Madrigal DO, DO, Kathleen PNEUM VAC ADLT/IMUMNOSPR, On: 04-Nov-2013 Intent SBC/INTRM (58340)By: Jose Comments: Lot:[id number]:10/11/14Dose:0.5mgRoute:imSite:l armGiven By:GURDEEP signed , Catherine Madrigal DO, Catherine Spirometry (42306)By: Jose On: 04-Nov-2013 Intent Catherine APARICIO DO, Comments: great curve and technique -- asx Catherine Radiology - Chest- PA and On: 04-Nov-2013 Intent LatBy: Catherine Madrigal DO, DO, Catherine EKG (86241)By: Jose APARICIO, On: 04-Nov-2013 Intent Catherine Mathis DO Comments: nsr no acute chg EKG (35217)By: Jose APARICIO, On: 03-Nov-2012 Intent Catherine Mathis DO Comments: nsr no acute ischemic changes Aerosol Treatment (51996)By: On: 03-Nov-2012 Intent Catherine Madrigal DO, DO, Kathleen Eprescribed prescriptions On: 03-Nov-2012 Intent (G8553)By: Catherine Madrigal DO, DO, Catherine Spirometry (14869)By: Jose On: 08-May-2012 Intent Catherine APARICIO DO, Comments: mild obstruciton -- pt asx didnt want inhlaer Catherine Ultrasound - ThyroidBy: On: 08-May-2012 Intent Jose APARICIO, aCtherine Madrigal DO, Catherine Radiology - Chest- PA and On: 08-May-2012 Intent LatBy: Catherine Madrigal DO, DO, Catherine FLU VAC, SPLIT, >3 YEARS, On: 24-Apr-2012 Intent INTRAMUSC (90341)By: Jose Comments: Lot #[id number]/30/13Site-right deltoidgiven by: Kristina Painter LPN DO, Catherine Mathis DO ADMINISTRATION OF INFLUENZA On: 24-Apr-2012 Intent VIRUS VACCINE (G0008)By: Catherine Madrigal DO, DO, Kathleen Eprescribed prescriptions On: 24-Apr-2012 Intent (G8553)By: Denisse Alvarado LPN EKG (79956)By: Jose APARICIO, On: 03-Oct-2011 Intent Catherine Mathis DO Comments: nsr no acute chg Eprescribed prescriptions On: 03-Oct-2011 Intent (G8553)By: Jose APARICIO, Catherine Madrigal DO, Catherine IMMUNIZ ADMNIN, 1 VAC, On: 21-Aug-2010 Intent SNGL/COMBO (54934)By: Jt Comments: Lot #[id number]/06Site-LarmDose 0.65mlgiven by:Fidelina Puri LPN [place], [place] (05171)By: On: 21-Aug-2010 Intent Fidelina Waters LPN TDAP VACCINE >7 IM (45298)By: On: 16-May-2010 Intent Fidelina Waters LPN Comments: Lot #[id number]/17/12Site-L armDose0.5mlgiven by:BRUNILDA KEY Ultrasound - ThyroidBy: On: 04-May-2010 Intent Catherine Madrigal DO Comments: please compare to prev us roughly a yr ago Catherine APARICIO EKG (99492)By: Jose APARICIO, On: 04-May-2010 Intent Catherine Mathis [...] be done May 04 Ultrasound - ThyroidBy: Rosalinajohanna On: 08-Feb-2009 Intent Suzanne DAVIS PFT - CompleteBy: Rosalinajohanna SUSAN, On: 08-Feb-2009 Intent Antonette Spirometry (11532)By: Ivett On: 08-Feb-2009 Intent SUSAN Suzanne Duncan Comments: done-awModerately severe restriction Inhaler Demo (05628)By: Ivett On: 08-Feb-2009 Intent SUSAN Suzanne Duncan Comments: doneAW Pulse Oximetry (59154)By: On: 08-Feb-2009 Intent Rosalinajohanna DAVIS Suzanne Duncan Comments: 94% Solu- Medrol Injection, 125mg On: 08-Feb-2009 Intent (J2930)By: Ivett DAVIS Suzanne Duncan Comments: Lot #[id number]/2012Site-left wojLxsb402jy/2mlgiven by Neville Meier LPN CT - ChestBy: Suzanne Root CNP On: 31-Jan-2009 Intent E Radiology - ChestBy: Ivett On: 31-Jan-2009 Intent SUSAN Suzanne Duncan Comments: LEFT PA with NIPPLE MARKERS Aerosol Treatment (79660)By: On: 10-Jan-2009 Intent Ivett DAVISSuzanne E Spirometry (39457)By: Jose On: 21-Oct-2006 Intent Catherine APARICIO DO, Comments: NORMAL SPIROMETRY Catherine EKG (04265)By: Jose APARICIO, On: 21-Oct-2006 Intent Catherine Mathis DO Comments: NSR NO ACUTE ISCHEMIC CHANGES Planned Medications Vitamin B-12 1000 MCG/ML Injection Solution Ordered: 19-Dec-2017 Pending Catherine Madrigal DO, DO, Kathleen Vitamin B-12 1000 MCG/ML Injection Solution Ordered: 26-Dec-2017 Pending Catherine Madrigal DO, DO, Kathleen Vitamin B-12 1000 MCG/ML Injection Solution Ordered: 09-Jan-2018 Pending Catherine Madrigal DO, DO, Kathleen Vitamin [...] The patient does have durable power of finance attorney and living will. The patient has noticed lack of energy. Other providers contributing to the patient's care are manager rehab. Encounter Diagnosis: BMI 27.0-27.9,adult, Current nonsmoker, Annual [...] The patient does have durable power of finance attorney and living will. The patient has [...] patient does not have durable power of finance attorney. The patient has noticed nothing from [...] End: 15-May-2006 19:31 Payers MedicareForethought Life InsTRANS Allison Bhardwaj; johanna guarantor
== END ==
PROVIDERS: Family Provider Internal Medicine; PCP Internal Medicine; Referring Provider Internal Medicine Cardiovascular Disease; Visit Provider Internal Medicine Cardiovascular Disease
DX: I25.10 Atherosclerotic heart disease of native coronary artery without angina pectoris (principal)
CPT/HCPCS: 78452; 93017; A9500; A4216

== ENCOUNTER 2018-10-21 07:57 | Day surgery (SDC) | payer MEDICARE, OTHER, SELFPAY ==
[2018-09-08 13:40] VITALS: BMI 28.1
--- NOTE | 2018-10-08 10:00 | RAD_ITS ---
STUDY: X-RAY CHEST REASON FOR EXAM: Male, 73 years old. Chest pain. TECHNIQUE: Frontal and lateral views of the chest. COMPARISON: 12/07/2014. FINDINGS: There is hyperinflation of the lungs consistent with chronic obstructive lung disease (COPD). No infiltrates or effusions. Small calcified granuloma in the left lung base. There is no demonstrated pleural abnormality. Normal size heart. Normal mediastinum and shayan. Normal visualized pulmonary arteries. Normal visualized aortic arch and descending thoracic aorta. There are diffuse degenerative changes of the visualized thoracic spine. Normal visualized ribs, clavicles, and shoulders. There is no demonstrated abnormality of the visualized soft tissue structures of the upper abdomen. RAD/Chest PA and Lateral IMPRESSION: There are findings consistent with COPD. There is no evidence of acute chest disease. Electronically Signed: Perry Paul MD at 19:56 EST , Service support ,
[2018-10-08 10:08] VITALS: BMI 28.1
[2018-10-08 11:39] LABS: Hematocrit 50.3 % (40-54); Hemoglobin 16.8 g/dl (13.0-16.5); Mean Corp Hgb Conc 33.4 g/gl (32-36); Mean Corpuscular Hgb 31.6 pg (27.0-32.0); Mean Corpuscular Volume 94.7 fL (80-94); Mean Platelet Vol. 9.6 fl (6.2-12.0); Platelet Count 170 K/mm3 (150-450); RBC Distribution Width CV 12.9 % (11.6-14.6); RBC Distribution Width SD 44.8 fl (35.1-43.9); Red Blood Count 5.31 M/mm3 (4.6-6.2); White Blood Count 8.4 K/mm3 (4.4-11.0)
[2018-10-08 11:42] LABS: Scan Indicated on CBC? Y/N NO
[2018-10-08 11:49] LABS: Partial Thromboplast Time 29.2 Seconds (24.1-36.2)
[2018-10-08 12:17] LABS: Anion Gap 9 (5-15); BUN 20 mg/dL (7-18); BUN/Creat Ratio 19.8 RATIO (10-20); Calcium,Total 8.3 mg/dL (8.5-10.1); Chloride 109 mmol/L (98-107); Creatinine, Serum 1.01 mg/dL (0.70-1.30); EST Glomerular Filtration Rate 77 mL/min (>60); Est Glom Filt Rate - Afr Amer 93 mL/min (>60); Glucose 88 mg/dL (74-106); Potassium 4.2 mmol/L (3.5-5.1); Sodium Level 141 mmol/L (136-145)
[2018-10-20 09:42] VITALS: BMI 27.8
--- NOTE | 2018-10-21 09:49 | CL.D_ITS ---
Patient Name: RICKI BHARDWAJ Study Date: 10/21/2018 Performing: Ranjith Dueñas MD Ht: 70.86 inches 180 cm : 1945 Wt: 200.62 lbs 91 kg Age: 73 Gender: male BSA: 2.11 PROCEDURE(S) PERFORMED [id number] CLINICAL PROFILE AND INDICATIONS Indications: Suspected CAD Heart Failure: None Stress/Imaging Stress Test w/SPECT MPI: Yes Result: PositiveStress Test with SPECT MPI: Positive Angina Classification Anginal Classification w/in 2 Weeks: CCS III CAD Presentations: Stable angina. CONCLUSIONS Normal Left Ventricular End Diastolic Pressure Perserved Left Ventricular systolic function with normal EDP LVEF: by LV gram 55 % [place] Multivessel CAD LCX: Stent: Patent RECOMMENDATIONS Risk factor modification Medical therapy DESCRIPTION OF PROCEDURE The patient arrived to the procedure lab. The risks and benefits of the procedure as well as a full d escription of our services here and current unavailability of surgical backup were fully explained to the patient and/or their significant other prior to the catheterization. The Timeout was completed, verifying the correct patient and procedure. The patient's procedural site was prepped and draped in the usual fashion. Local anesthetic was given subcutaneously to right groin region with Lidocaine 2%. Using a modified Seldinger technique, arterial access was obtained via the right femoral artery, a 4 Fr sheath was inserted Left Coronary Artery selective angiography was performed in multiple views us ing a 4 Fr. JL5 catheter. Right Coronary Artery selective angiography was then performed in multiple views using a 4 Fr. 3DRC catheter. Left Ventriculography was performed in DOMINGUEZ projection using a 4 Fr . Pigtail catheter. LV to AO pullback pressures were then recorded.The arterial sheath was pulled and manual compression applied until hemostasis is achieved. CORONARY ANGIOGRAPHY DOMINANCE: Left Dominant LEFT HEART ASSESSMENT Left Ventricular Ejection Fraction: by LV Gram 55 % Inferior Basal Hypokinesis Normal Left Ventricular End Diastolic Pressure LVEDP: 12 mmHg LEFT MAIN: Angiographically normal LEFT ANTERIOR DECENDING ARTERY: Mild luminal irregularities CIRCUMFLEX ARTERY: Mild luminal irregularities PROX CIRC: Eccentric: 10-25 % Stenosis MID CIRC: Previously placed stent is patent RIGHT CORONARY ARTERY: MID RCA: 25 % Stenosis VALVE FINDINGS: Normal Aortic Valve function Normal Mitral Valve function AORTIC ROOT: Angiographically normal COMPLICATIONS No Complications PROCEDURE MEDICATIONS Versed 1 mg IV Oxygen: 2 L/min via nasal cannula SUMMARY OF HEMODYNAMIC DATA Time AIR REST ECG 08:15:58 AO 150/84 (112) SA 09:18:48 LV 132/0, 14 09:26:29 LV 142/-6, 12 09:26:36 LV 148/-8, 18 09:27:37 LV 144/-5, 17 09:27:43 LVp 146/-11, 14 09:27:49 AOp 156/81 (114) 09:27:54 09:47:35 Signed By Ranjith Dueñas MD On 10/21/2018 09:48:33 Ranjith Dueñas MD
== END 2018-10-21 16:48 | disposition home or self-care (01) ==
LOC: CLSP 07:59
PROVIDERS: Family Provider Internal Medicine; PCP Internal Medicine; Referring Provider Internal Medicine Cardiovascular Disease; Visit Provider Internal Medicine Cardiovascular Disease
DX: I25.118 Atherosclerotic heart disease of native coronary artery with other forms of angina pectoris (principal); I34.9 Nonrheumatic mitral valve disorder, unspecified; I10 Essential (primary) hypertension; E78.00 Pure hypercholesterolemia, unspecified; R07.9 Chest pain, unspecified; F17.200 Nicotine dependence, unspecified, uncomplicated; Z79.02 Long term (current) use of antithrombotics/antiplatelets; Z79.82 Long term (current) use of aspirin; Z79.899 Other long term (current) drug therapy; I25.2 Old myocardial infarction; Z95.5 Presence of coronary angioplasty implant and graft
CPT/HCPCS: 36415; 71046; 80048; 85027; 85610; 85730; 93458; 99152; 99153; J7040; C1769; C1894; Q9967

== ENCOUNTER → 2019-01-05 16:32 | Outpatient (CLI) | payer MEDICARE, OTHER, SELFPAY ==
[2019-01-05 16:32] VITALS: BMI 28.1
[2019-01-05 17:55] LABS: Hematocrit 43.8 % (40-54); Hemoglobin 14.6 g/dl (13.0-16.5); Mean Corp Hgb Conc 33.3 g/gl (32-36); Mean Corpuscular Hgb 31.7 pg (27.0-32.0); Mean Corpuscular Volume 95.2 fL (80-94); Platelet Count 216 K/mm3 (150-450); RBC Distribution Width CV 13.6 % (11.6-14.6); RBC Distribution Width SD 45.4 fl (35.1-43.9); White Blood Count 8.5 K/mm3 (4.4-11.0)
[2019-01-05 17:56] LABS: Scan Indicated on CBC? Y/N NO
== END ==
PROVIDERS: Internal Medicine Gastroenterology; Family Provider Internal Medicine; PCP Internal Medicine; Referring Provider Internal Medicine Rheumatology; Visit Provider Internal Medicine Rheumatology
DX: K62.5 Hemorrhage of anus and rectum (principal)
CPT/HCPCS: 36415; 85027

== ENCOUNTER → 2019-02-10 | Outpatient (CLI) | payer MEDICARE, OTHER, SELFPAY ==
[2019-01-05 16:32] VITALS: BMI 28.1
--- NOTE | 2019-02-10 07:24 | CT_ITS ---
STUDY: CT ABDOMEN AND PELVIS WITH AND WITHOUT CONTRAST REASON FOR EXAM: Male, 73 years old. Abdominal pain and hematuria RADIATION DOSAGE (If Supplied By Facility): CTDIvol = ( 16.36 ) mGy, DLP = ( 1748.04 ) mGycm TECHNIQUE: Transaxial images were obtained from the dome of the diaphragm to the symphysis pubis without oral contrast. 100ml IV Isovue 370 was administered. Sagittal and coronal images were reconstructed. Individualized dose optimization techniques were used for this CT. COMPARISON: : June 06 2018 FINDINGS: The visualized lung bases are unremarkable. The visualized portions of the heart are within normal limits. There is nonspecific fatty infiltration of the liver. There are multiple cysts of varying sizes. Bile ducts are not dilated.. Normal gallbladder and extrahepatic biliary system. Normal spleen. Normal pancreas. Normal bilateral adrenal glands. No evidence for renal obstruction or ureteral calculus. There are 2 simple cysts in each kidney and one small solid nodule in the left Normal visualized stomach. Normal small intestine. Diverticular changes of the descending and sigmoid colon without evidence for acute diverticulitis. There is no evidence for acute appendicitis.. Atherosclerotic changes of the aorta. 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 Normal inferior vena cava. Normal retroperitoneum. Nonspecific prominence of the prostate impinging upon the base of bladder which is incompletely distended and thick-walled. Small bilateral fat-containing inguinal hernias.. Lumbar spine demonstrates mild spondylosis No significant change since prior exam CT/Abdomen/Pelvis W IV Cont ONLY IMPRESSION: Multiple hepatic cysts.. Bilateral renal cysts and small solid left renal nodule unchanged since previous study Enlarged prostate impinging upon the base of bladder which is incompletely distended and thick-walled Diverticulosis of the descending and sigmoid colon without evidence for acute diverticulitis Electronically Signed: Jackson Daniel MD at 17:13 EDT , Service support ,
[2019-02-10 07:36] LABS: CREATININE FINGERSTICK 0.9 mg/dL (0.70-1.30); EGFR FINGERSTICK > 60.0000 mL/min (>60)
== END | disposition home or self-care (01) ==
PROVIDERS: Family Provider Internal Medicine; PCP Internal Medicine; Referring Provider Urology; Visit Provider Urology
DX: R31.9 Hematuria, unspecified (principal); C64.9 Malignant neoplasm of unspecified kidney, except renal pelvis
CPT/HCPCS: 74177; Q9967

== ENCOUNTER → 2020-05-05 10:11 | Outpatient (CLI) | payer MEDICARE, OTHER, SELFPAY ==
[2019-11-02 16:06] VITALS: BMI 27.2
[2020-05-05 13:02] LABS: PSA,Total - Annual Screen 2.67 ng/mL (0.00-4.00)
== END ==
LOC: LAB.FUTURE 10:14 → MTLAB 10:18
PROVIDERS: PCP Internal Medicine; Visit Provider Nurse Practitioner Adult Health
DX: Z12.5 Encounter for screening for malignant neoplasm of prostate (principal)
CPT/HCPCS: 36415; 84153; G0103

== ENCOUNTER → 2020-05-10 06:51 | Outpatient (CLI) | payer MEDICARE, OTHER, SELFPAY ==
[2019-11-02 16:06] VITALS: BMI 27.2
--- NOTE | 2020-05-10 06:55 | CT_ITS ---
STUDY: CT ABDOMEN AND PELVIS WITH AND WITHOUT CONTRAST REASON FOR EXAM: Male, 75 years old. GROSS HEMATURIA. PRIOR APPENDECTOMY. RADIATION DOSAGE (If Supplied By Facility): CTDIvol = ( 14.21 ) mGy, DLP = ( 2429.87 ) mGycm TECHNIQUE: Transaxial images were obtained from the dome of the diaphragm to the symphysis pubis without oral contrast. 100 ML ISOVUE 300 was administered. Sagittal and coronal images were reconstructed. Individualized dose optimization techniques were used for this CT. COMPARISON: Comparison is made with prior study dated 02/11/2019. FINDINGS: The visualized lung bases are unremarkable. Coronary artery calcification. Stable appearance of the multiple hepatic cysts of varying sizes. Normal gallbladder and extrahepatic biliary system. Normal spleen. Normal pancreas. Normal bilateral adrenal glands. There is a 2.2 cm x 2.9 cm cyst in the lateral inferior aspect of the right kidney. There is a 1.4 cm cyst in the midportion of the left kidney as well as a 1.6 on the cyst in the upper posterior aspect of the left kidney. Nonspecific left perinephric stranding. Mild degree of the left hydronephrosis and hydroureter due to a 4.8 mm calculus in the distal portion of the left ureter. Normal visualized stomach. Normal small intestine. There are multiple colonic diverticula consistent with diverticulosis. The patient is status post appendectomy. There is diffuse atherosclerotic calcification of the abdominal aorta. There is evidence of a infrarenal abdominal aortic aneurysm with a transverse dimension of 3 cm. Normal inferior vena cava. There is borderline retroperitoneal lymphadenopathy with enlarged nodes no greater than 10mm in the short axis diameter. There is evidence of diffuse bladder wall thickening. There is enlargement of the prostate gland. It measures 3.4 cm x 4.7 cm. This causes indentation at the bladder base. Normal abdominal wall. There are degenerative changes of the visualized lumbar spine. CT/CT Abd/Pelvis W/WO Contrast IMPRESSION: Multiple hepatic cysts. These are unchanged. Bilateral renal cysts. 4.8 mm calculus in the distal portion of the left ureter with the mild left hydronephrosis and hydroureter. Diffuse bladder wall thickening. Prostatic enlargement with indentation at the bladder base. Stable infrarenal abdominal aortic aneurysm. Electronically Signed: Franko Jung, at 8:25 EDT , Service support ,
[2020-05-10 07:05] LABS: CREATININE FINGERSTICK 0.8 mg/dL (0.70-1.30); EGFR FINGERSTICK > 60.0000 mL/min (>60)
== END ==
PROVIDERS: PCP Internal Medicine; Referring Provider Nurse Practitioner Adult Health; Visit Provider Nurse Practitioner Adult Health
DX: R31.0 Gross hematuria (principal)
CPT/HCPCS: 74178; Q9967

== ENCOUNTER 2020-05-20 10:00 | Day surgery (SDC) | payer MEDICARE, OTHER, SELFPAY ==
[2019-11-02 16:06] VITALS: BMI 27.2
[2020-05-20] VITALS (7 sets, daily range): BP systolic 159–182; BP diastolic 84–105; PULSE 65–71; RESP 16; TEMP 36–37.2; O2SAT 94–99; BMI 25.2
[2020-05-20] MEDS: Lactated Ringers 1,000 ML 75 ML IV (11:06)
[2020-05-20] MEDS: Cefazolin 2 GM in 0.9% Normal Saline 100 ML IV (11:17)
--- NOTE | 2020-05-20 11:54 | PCM.HP.STD ---
Problem List (1) Left ureteral calculus Status: Acute History of Present Illness Date of Admission: 05/20/20 Chief Complaint: Left obstructing ureteral calculi The patient is a 75 year old male with obstructing stone in the distal left ureter plan to proceed with laser lithotripsy of the stone. Past Medical History Past Medical History (Chronic Problems): Chronic Problems (Last Reviewed 11/02/19 @ 16:09 by Dana Wade) Pure hypercholesterolemia (Chronic) Nonrheumatic mitral valve disorder (Chronic) Presence of stent in coronary artery (Chronic ~03/15/15) PTCA/JENNY to distal L CFX & OM, distal 60% stenosis mid-RCA not treated 03/15/15 Essential hypertension (Chronic) Myocardial infarction (Chronic) Atherosclerotic heart disease of [place] coronary artery without angina pectoris (Chronic) PTCA/JENNY to distal L CFX & OM, distal 60% stenosis mid-RCA not treated 03/15/15 Medical History: Medical History (Last Reviewed 05/20/20 @ 11:[address] Torin Quiñonez MD) Pure hypercholesterolemia (Chronic) E78.00 Chest pain (Acute) R07.9 Nonrheumatic mitral valve disorder (Chronic) I34.9 Presence of stent in coronary artery (Chronic) Onset Date: ~03/15/15 Z95.5 PTCA/JENNY to distal L CFX & OM, distal 60% stenosis mid-RCA not treated 03/15/15 Essential hypertension (Chronic) I10 Myocardial infarction (Chronic) I21.9 Atherosclerotic heart disease of [place] coronary artery without angina pectoris (Chronic) I25.10 PTCA/JENNY to distal L CFX & OM, distal 60% stenosis mid-RCA not treated 03/15/15 assisted use of drug Z79.899 Hypertension (Inactive) I10 Mitral valve disorder (Inactive) I05.9 Allergies No Known Allergies Allergy (Verified 05/13/20 13:23) Home Medications: Ambulatory Orders Medication Instructions Recorded Aspirin [Aspirin, Baby] 81 mg PO DAILY@0800 04/14/15 Citalopram [Celexa] 20 mg PO DAILY 04/14/15 B-complex with vitamin C 1 tab PO DAILY 11/02/19 cholecalciferol (vitamin D3) 25 25 mcg PO DAILY 11/02/19 mcg (1,000 unit) tablet metoprolol succinate 50 mg 50 mg PO DAILY 11/02/19 tablet,extended release 24 hr nitroglycerin 0.4 mg sublingual 0.4 mg SUBLINGUAL Q5M PRN #90 tab 11/02/19 tablet thiamine HCl (vitamin B1) 100 mg 100 mg PO DAILY 11/02/19 tablet Pravastatin [Pravachol] 20 mg PO QHS 05/13/20 Surgical History: Surgical History (Last Reviewed 11/02/19 @ 16:09 by Dana Wade) Status post percutaneous transluminal coronary angioplasty Onset Date: ~02/24/15 Z98.61 PTCA/JENNY to distal L CFX & OM, distal 60% stenosis mid-RCA not treated 03/15/15 History of appendectomy Z90.49 Postsurgical percutaneous transluminal coronary angioplasty (PTCA) status (Inactive) Z98.61 PTCA/JENNY to distal L CFX & OM, distal 60% stenosis mid-RCA not treated 03/15/15 Surgical History: appendectomy, - - 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 Smoking Status: Current every day smoker Tobacco Use: Cigarettes Review of Systems Constitutional: Denies: Chills, Fever, Weight Change HEENT: Denies: Head Aches, Sinus Congestion, Sinus Drainage Cardiovascular: Denies: Chest Pain, Palpitations Respiratory: Denies: Cough, Shortness of breath at rest, Sputum production Gastrointestinal: Denies: Abdominal Pain, Nausea, Vomiting Genitourinary: Denies: Dysuria Musculoskeletal: Denies: Joint Pain, Joint Tenderness Skin: Denies: Rash, Wounds Neurological: Denies: Numbness, Tingling, Focal weakness Psychiatric: Denies: Anxiety, Depression, Homicidal Ideations, Suicidal Ideations Hematologic/ Lymphatic: Denies: Easy Bruising, Easy Bleeding VTE Information - Inpt Only VTE Present on Admission: No VTE Mechan Device Prophylaxis: SCD's Patient Problems: Active and Suspected Problems (Last Reviewed 11/02/19 @ 16:09 by Dana Wade) Left ureteral calculus (Acute) - Physical Exam Vitals/I&O's: Vital Signs Temp Pulse Resp BP Pulse Ox 98.7 F 69 16 166/85 H 99 05/20/20 10:15 05/20/20 10:15 05/20/20 10:15 05/20/20 10:15 05/20/20 10:15 Oxygen Delivery Method Room Air Weight: 84.3 kg Body Mass Index (BMI) 25.2 Intake and Output for Last 24 Hours 05/18/20 05/19/20 05/20/20 23:59 23:59 23:59 Intake Total 110 / 110 Balance 110 / 110 General: Alert, Oriented x3, Cooperative HEENT: Atraumatic, PERRLA, EOMI, Normocephalic Neck: Supple, No JVD, Negative Carotid Bruits Lungs: Clear to auscultation, Normal air movement Cardiovascular: Regular rate, No murmurs Abdomen: Bowel Sounds Present, Soft, Non Tender Extremities: No edema, Capillary Refill Less than 3 Seconds Skin: No rashes, No breakdown Musculoskeletal: No Tenderness to Palpation of Joints or Extremities Neurological: Cranial nerves II-XII grossly intact Psych/Mental Status: Normal Affect, Appropriate Current Medications Cefazolin Sodium 2 gm/ Sodium (Chloride) 110 mls @ 150 mls/hr IV PREOP ONE Stop: 05/20/20 12:33 Last Infusion: 05/20/20 11:51 Dose: Infused Documented by: Lactated Ringer's () 1,000 mls @ 75 mls/hr IV .[id number] [facility] Last Admin: 05/20/20 11:06 Dose: 75 mls/hr Documented by: Assessment/Plan All Active Problems (Last Reviewed 11/02/19 @ 16:09 by Dana Wade) Left ureteral calculus (Acute) Chest pain (Acute) Plan for left ureteroscopy and laser of stone.
--- NOTE | 2020-05-20 11:58 | PCM.DC.URO ---
Discharge Diet: No Restrictions Discharge Activity: Return to Normal Activity, May Not Drive - for 2 days. Additional Activity Instructions:: Please be aware that pain medications may cause nausea. You should typically eat light foods as you take your pain medication. Pain medication may cause constipation, if this is a problem for you, please discuss with your doctor. Allergies/Adverse Reactions: Allergies No Known Allergies Allergy (Verified 05/13/20 13:23) Medications to take at Discharge Citalopram [Celexa] 20 mg PO DAILY 04/14/15 B-complex with vitamin C 1 tab PO DAILY 11/02/19 cholecalciferol (vitamin D3) 25 mcg (1,000 unit) tablet 25 mcg PO DAILY 11/02/19 metoprolol succinate 50 mg tablet,extended release 24 hr 50 mg PO DAILY 11/02/19 nitroglycerin 0.4 mg sublingual tablet 0.4 mg SUBLINGUAL Q5M PRN #90 tab 11/02/19 thiamine HCl (vitamin B1) 100 mg tablet 100 mg PO DAILY 11/02/19 Pravastatin [Pravachol] 20 mg PO QHS 05/13/20 Ciprofloxacin [Cipro] 500 mg PO BID #6 tab 05/20/20 Hydrocodone/Acetaminophen [[place] 5-325 Tablet] 1 each PO Q4H PRN PRN 5 Days #14 tablet 05/20/20 The following prescriptions were given: Ciprofloxacin [Cipro] 500 mg PO BID #6 tab Transmission Status: Pending to [facility]/pharmacy #[id number] Hydrocodone/Acetaminophen [[place] 5-325 Tablet] 1 each PO Q4H PRN PRN 5 Days #14 tablet PRN Reason: Pain Score 1-10/10 Transmission Status: Received by [facility]/pharmacy #[id number] Primary Care Physician: Catherine Cota DO [Primary Care Provider] - Test Results: Test results from this visit will be discussed in further detail at your follow-up appointment, if applicable. Please Follow Up With: Torin Quiñonez MD When: please call to make an appointment.
--- NOTE | 2020-05-20 12:00 | BLA_PTH ---
PATIENT: RICKI BHARDWAJ LOC: [facility] [place] U#:[id number] AGE/SX: 75/M ROOM: RE05/20/[address]: Dr. Torin Quiñonez MD : 1945 BED: DIS: 05/20/2020 SPEC #: [id number] RECD: 05/20/20 15:52 STATUS: COOPER MURPHY #: [id number] GARRETT: 05/20/20 12:[address]: Torin Quiñonez DEPT: SURGICAL PATHOLOGY RECD BY: Yanique Guo ENTERED: 05/20/20 13:11 SP TYPE: BLADDER BX OTHR DR: Dr. Catherine Cota DO Tissues: Urinary bladder, NOS Procedures: Surgery Specimen Level IV HEADER OPERATION: Cystoureteroscopy, laser, stent, balloon dilation, biopsy of bladder PRE-OP DIAGNOSIS: Gross hematuria, neoplasm of left kidney TISSUE SUBMITTED: Bladder polyp MICROSCOPIC DIAGNOSIS Urinary bladder polyp, biopsy: Papillary urothelial carcinoma. See comment. 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 There is no evidence of lamina propria invasion. Smooth muscle fiber (detrusor muscle) is not represented in the biopsy. No angiolymphatic invasion is seen. Clinical correlation is suggested. MICROSCOPIC DESCRIPTION Slides are reviewed. GROSS DESCRIPTION Received in fixative is one container labeled with the patient's name and designated bladder polyp. The specimen consists of a piece of mueller soft tissue measuring 0.4 x 0.2 x 0.1 cm. The specimen is totally submitted in one cassette. / SJ:tera 05/20/20 TC:0 CPT: 51014
--- NOTE | 2020-05-20 12:00 | PCM.OPRPT ---
Problem List (1) Left ureteral calculus Status: Acute Report of Operation Date of Procedure: 05/20/20 Pre-Operative Diagnosis: Left ureteral calculi with obstruction Post-Operative Diagnosis: The same plus small bladder polyp Surgery/Procedure Performed:: Cystoscopy biopsy of a bladder polyp and fulguration. Balloon dilation of the left ureter. Left ureteroscopy laser of stone and stent placement Description of Surgical Findings:: 75-year-old male was found to have an obstructing stone in the distal left ureter he had a CAT scan done that demonstrated the stones were taken to surgery today for left ureteroscopy laser of the stone and stent placement. He was taken back to the operating room at the smooth induction of general anesthesia he was placed in dorsolithotomy position. The penis and testicles are prepped and draped in usual sterile fashion went in to the urethra with a 21 Turkish rigid cystourethroscope the urethra severely tortuous urethra but with no strictures there is a little angulation of the went to the prostate past the prostate was clear nonobstructive prostate once again to the bladder there was a polyp be looking like tumor in the left lateral wall the bladder a biopsy of this was taken sent off as a specimen and then we cauterized the base of this with a Bugbee electrode. I then cannulated the left ureteral orifice with a wire advanced a wire up past the stone and then balloon dilated the distal left ureter and the left the wire in place and then over the wire went in with a semirigid ureteroscope I then pulled the wire out got to the stone. I used a 270 ?m laser fiber and perform laser lithotripsy and the stone until all the fragments were small and passed into the bladder and then worked out of the ureter put a wire back up on the left side and over the wire loaded the stent. It was a 6 Turkish by 26 cm stent I put a stent up in the kidney once a stent was a good position I pulled the wire and the stent: The kidney bladder good position I drained the bladder and patient's anesthetic was reversed he was taken back to the PACU in good condition plan to see him back next week for cystoscopy stent removal. Type of Anesthesia:: General Drains: left stent - Admit VTE Documentation VTE Present on Admission: No VTE Mechan Device Prophylaxis: SCD's
[2020-05-20] MEDS: Ketorolac 15 MG/ML Vial IV (12:10)
== END 2020-05-20 14:09 | disposition home or self-care (01) ==
LOC: SDC 10:00 → AC 10:00
PROVIDERS: Anesthesiology; PCP Internal Medicine; Referring Provider Urology; Visit Provider Urology
PROC: 0TJ98ZZ Inspection of Ureter, Via Natural or Artificial Opening Endoscopic (ICD-10-PCS; CPT 52352; principal; 2020-05-20 11:50)
DX: N20.1 Calculus of ureter (principal); C67.2 Malignant neoplasm of lateral wall of bladder; I25.10 Atherosclerotic heart disease of native coronary artery without angina pectoris; I10 Essential (primary) hypertension; E78.5 Hyperlipidemia, unspecified; J45.909 Unspecified asthma, uncomplicated; N40.0 Benign prostatic hyperplasia without lower urinary tract symptoms; F32.9 Major depressive disorder, single episode, unspecified; F17.210 Nicotine dependence, cigarettes, uncomplicated; I25.2 Old myocardial infarction; Z79.82 Long term (current) use of aspirin; Z79.899 Other long term (current) drug therapy; Z95.5 Presence of coronary angioplasty implant and graft
CPT/HCPCS: 00918; 52234; 52356; 87635; 88305; C9803; J7120; C1769; C2617; J2405; U0003

== ENCOUNTER 2021-10-31 16:34 | Outpatient (CLI) | payer MEDICARE, OTHER, SELFPAY ==
--- NOTE | 2021-10-31 | CYSPIN_PTH ---
PATIENT: RICKI BHARDWAJ LOC: [facility] U#:[id number] AGE/SX: 76/M ROOM: RE10/31/[address]: Dr. Torin Quiñonez MD : 1945 BED: DIS: 10/31/2021 SPEC #: [id number] RECD: 11/01/21 09:25 STATUS: COOPER REJulienne #: [id number] GARRETT: 10/31/21 00:[address]: Torin Quiñonez DEPT: CYTOLOGY RECD BY: Flaco Luis ENTERED: 11/01/21 09:25 SP TYPE: CYSPIN FL OTHR DR: Dr. Catherine Cota, DO Tissues: Urine Procedures: Pap Stain (control) Special Stain Group II Cytospin Fluid HEADER OPERATION: Not noted PRE-OP DIAGNOSIS: Malignant neoplasm of bladder TISSUE SUBMITTED: Urine for cytology DIAGNOSIS CYTOLOGY Urine for cytology (cytospin): A few clusters of mildly atypical urothelial cells noted. Mild acute inflammation. SJ:tera 11/01/2021 COMMENT Please make reference to previous specimen ([id number]) urinary bladder polyp, biopsy with diagnosis of ?papillary urothelial carcinoma.? CYTOLOGY STUDY Slides are reviewed. CYTOLOGY GROSS Received is 10 ml of dark yellow cloudy fluid labeled with the patient's name and and designated per the requisition as urine. Submitted for cytology preparation. / tera 10/31/2021 TC:5 CPT: 29915
[2021-10-31 17:26] LABS: Cytology, Body Fluid / CSF SEE PATHOLOGY REPORT
== END 2021-10-31 23:59 | disposition home or self-care (01) ==
LOC: LABSPEC 16:36
PROVIDERS: PCP Internal Medicine; Visit Provider Urology
DX: C67.2 Malignant neoplasm of lateral wall of bladder (principal)
CPT/HCPCS: 88108; 88313

== ENCOUNTER → 2022-02-06 | Outpatient (CLI) | payer MEDICARE, OTHER, SELFPAY ==
--- NOTE | 2022-02-06 12:55 | ECHOD_ITS ---
Reason For Study: MV INSUFFICIENCY Procedure This was a 2D Doppler, Color Flow transthoracic echocardiogram. The exam was of adequate technical quality. Exam performed in department. Left Ventricle Normal LV size. Left ventricular systolic function is normal. The estimated ejection fraction is 60 %. No evidence for diastolic dysfunction. No regional wall motion abnormalities noted. Right Ventricle Normal RV size. Normal systolic function. Atria Normal left atrium. Normal right atrium. No doppler evidence for ASD. Mitral Valve There is no mitral annular calcification. Normal mitral valve. Trivial mitral valve insufficiency. Tricuspid Valve Normal tricuspid valve. Trivial tricuspid valve insufficiency. Right ventricular systolic pressure estimated to be 25 mmHg. Aortic Valve Trisinus/trileaflet aortic valve. Mild focal aortic valve calcification. Trivial aortic valve insufficiency. Pulmonic Valve The pulmonic valve is not well visualized. Trivial pulmonic valve insufficiency. Great Vessels Normal sized aortic root. Pericardium/Pleural No pericardial effusion. MMode/2D Measurements & Calculations LVIDd: 4.2 cm IVSd: 1.2 cm Ao root diam: 3.4 cm LVIDs: 2.9 cm LVPWd: 1.2 cm RVDd: 3.2 cm FS: 32.6 % LAV(MOD-bp): 33.7 ml LVAd ap4: 25.6 cm2 SV(MOD-sp4): 42.5 ml LAV(MOD-bp) Indexed: 16.2 ml/m2 LVLd ap4: 7.8 cm LAV(MOD-sp2): 35.0 ml EDV(MOD-sp4): 70.9 ml LAV(MOD-sp4): 32.6 ml EDV(sp4-el): 71.4 ml LVAs ap4: 14.9 cm2 LVLs ap4: 6.9 cm ESV(MOD-sp4): 28.3 ml ESV(sp4-el): 27.0 ml EF(MOD-sp4): 60.0 % EF(sp4-el): 62.2 % SV(sp4-el): 44.4 ml LA A4 area: 14.2 cm2 LA dimension(2D): 3.3 cm RA A4 area: 14.4 cm2 Time Measurements MV dec time: 0.33 sec Doppler Measurements & Calculations MV E max parth: 68.6 cm/sec Lat Peak E' Parth: 7.8 cm/sec Med Peak E' Parth: 5.9 cm/sec MV A max parth: 96.1 cm/sec E/E' lat: 8.8 E/E' med: 11.5 MV E/A: 0.71 Ao V2 max: 136.3 cm/sec AI max parth: 378.2 cm/sec LV V1 max: 107.5 cm/sec Ao max P.4 mmHg AI max P.2 mmHg LV V1 max P.6 mmHg AI dec slope: 133.2 cm/sec2 AI P1/2t: 831.8 msec PA V2 max: 73.9 cm/sec TR max parth: 231.7 cm/sec TR max P.5 mmHg ECHO/Echo Complete Interpretation Summary Left ventricular systolic function is normal. The estimated ejection fraction is 60 %. Trivial mitral valve insufficiency. Trivial tricuspid valve insufficiency. Mild focal aortic valve calcification. Trivial aortic valve insufficiency. Trivial pulmonic valve insufficiency. Right ventricular systolic pressure estimated to be 25 mmHg. No evidence for diastolic dysfunction. Ordering Physician: Evangelist Gao/Ranjith Dueñas Referring Physician: JOSH GARCIA Performed By: Mary Reyes RDCS
== END | disposition home or self-care (01) ==
LOC: CVS 12:52
PROVIDERS: PCP Internal Medicine; Visit Provider Nurse Practitioner Gerontology
DX: I25.10 Atherosclerotic heart disease of native coronary artery without angina pectoris (principal); I34.9 Nonrheumatic mitral valve disorder, unspecified
CPT/HCPCS: 93306

== ENCOUNTER → 2023-06-25 | Outpatient (CLI) | payer MEDICARE, OTHER, SELFPAY ==
--- NOTE | 2023-06-25 17:21 | STRESSREP ---
Stress Test Report Exercise myocardial perfusion stress test. 78-year-old man with a history of coronary artery disease Stress protocol: Resting EKG demonstrates normal sinus rhythm with a rate of 64 bpm resting blood pressure is 142/92 mmHg. The patient exercised according to the regular Eder protocol for a total duration of 8 minutes attaining a maximum heart rate of 141 bpm which was 98% of maximum predicted heart rate; the maximum workload was 10.1 metabolic equivalents. At rest there were no ST or T wave changes noted to suggest ischemia and at peak exercise upsloping ST changes only were noted which did not meet the criteria for ischemia. No clinical angina was noted the test was terminated due to the target heart rate being achieved/fatigue. The peak blood pressure was 210/98 mmHg. Rate-pressure product was 26,400. Myocardial perfusion protocol. 11.5 mCi of technetium 99m sestamibi was injected at rest. The patient exercised according to regular Eder protocol for total duration of 8 minutes and at peak exercise 33.4 mCi of technetium 99m sestamibi was injected stress images were obtained stress and rest images were reconstructed in comparing the short axis vertical long and horizontal long axis. Gated images were also obtained. Perfusion SPECT analysis: Review of the stress images demonstrate normal uptake of tracer noted in all areas of the myocardium. The resting images similarly demonstrate normal uptake of tracer noted in all areas of the myocardium. No areas of reversibility are noted to suggest ischemia no previous infarct was noted. Gated SPECT analysis: The gated ejection fraction is 56%. Conclusion: Normal exercise myocardial perfusion stress test at a high workload Preserved ejection fraction.
== END | disposition home or self-care (01) ==
LOC: CVS 06:10
PROVIDERS: PCP Internal Medicine; Referring Provider Nurse Practitioner Gerontology; Visit Provider Nurse Practitioner Gerontology
DX: I25.10 Atherosclerotic heart disease of native coronary artery without angina pectoris (principal); Z95.5 Presence of coronary angioplasty implant and graft
CPT/HCPCS: 78452; 93017; A9500; A4216

== ENCOUNTER → 2024-01-07 | Outpatient (CLI) | payer MEDICARE, OTHER, SELFPAY ==
--- NOTE | 2024-01-07 08:15 | CT_ITS ---
STUDY: LOW DOSE CT LUNG CANCER SCREENING REASON FOR EXAM: Male, 78 years old. Current smoker. Patient smokes 1 pack per day for 57 years. RADIATION DOSAGE (If Supplied By Facility): CTDIvol = ( 3.02 ) mGy, DLP = ( 97.42 ) mGycm TECHNIQUE: No contrast was administered. Low dose technique was utilized (average mAS-38 and kVp 120). 1.25 mm axial source images with a slice interval of 1.25-mm were reconstructed in lung windows. 2.5 mm axial source images with a slice interval of 2.5-mm were reconstructed in lung windows. 5.0 mm axial source images with a slice interval of 5.0-mm were reconstructed in soft tissue windows. COMPARISON: None. NODULES: There is an 8.7 mm x 16.3 mm density adherent to the lateral wall of the trachea as seen on axial image #55 and coronal image #120. This may represent secretions. Clinical correlation recommended. Emphysema: Hyperinflation. Mild linear scarring at the lung bases and medial aspect of the right middle lobe. Endobronchial lesion: None Aorta: Atherosclerotic plaque formation of the aortic arch. CORONARY ARTERIES: Coronary artery calcification is seen. Heart: Unremarkable Pulmonary artery: Unremarkable Mediastinal nodes: Small mediastinal lymph nodes. Other chest and abdominal findings: Scattered low density lesions are seen throughout both lobes of the liver. These may represent cysts although correlation with ultrasound recommended. CT/Low Dose CT Lung Screening IMPRESSION: Lung-RADS category 2 - Continue annual screening with LDCT in 12 months. IMPORTANT NOTES FOR USE: ACR Lung-RADS Version 1.1 Assessment Categories Release Date: 2018 Category: Coded 0-4 bases on nodule(s) with highest degree of suspicion. Negative screen is defined as categories 1 and 2; a positive screen is defined as categories 3 and 4. Category 3 and 4A nodules that are unchanged on interval CT should be coded as category 2, and individuals returned to screening in 12 months. Category 4X: Category 3 or 4 nodules with additional imaging findings that increase the suspicion of lung cancer, such as spiculation, GGN that doubles in size in 1 year, enlarged lymph notes, etc. Category Modifiers: S (significant finding unrelated to lung cancer) Electronically Signed: Franko Jung MD at 8:47 EDT ,
== END | disposition home or self-care (01) ==
LOC: CT 08:12
PROVIDERS: PCP Internal Medicine; Referring Provider Internal Medicine; Visit Provider Internal Medicine
DX: F17.211 Nicotine dependence, cigarettes, in remission (principal)
CPT/HCPCS: 71271

== ENCOUNTER 2025-08-01 18:24 | Inpatient (IN) | payer MEDICARE, OTHER, SELFPAY ==
[2025-08-01 18:25] VITALS: TEMP 37.2; BMI 23.3
[2025-08-01 18:31] VITALS: BP 147/81; PULSE 94; RESP 22; TEMP 37.2; O2SAT 92
--- NOTE | 2025-08-01 18:45 | EKG12_ITS ---
Test Reason : Blood Pressure : */* mmHG Vent. Rate : 88 BPM Atrial Rate : 88 BPM P-R Int : 164 ms QRS Dur : 90 ms QT Int : 368 ms P-R-T Axes : 60 45 59 degrees QTcB Int : 445 ms Normal sinus rhythm Inferior infarct , age undetermined Abnormal ECG Confirmed by Yomi Osborne ([id number]), field map editor RONAL SUMNER ([id number]) on 08/03/2025 8:37:33 AM Referred By: Confirmed By: Yomi Osborne
[2025-08-01] MEDS: 0.9% Normal Saline (1000mL) 1,000 ML 1000 ML IV (19:01)
[2025-08-01 19:02] LABS: Hematocrit 47.7 % (40-54); Hemoglobin 15.7 g/dL (13.0-16.5); Immature Granulocytes Count 0.050 X10^3/uL (0.0-0.0); Mean Corp Hgb Conc 32.9 g/dL (32-36); Mean Corpuscular Volume 93.7 fL (80-94); Mean Platelet Vol. 9.8 fl (6.2-12.0); NRBC Flagged by Analyzer 0 % (0-5); POSITIVE DIFFERENTIAL YES; Platelet Count 130 K/mm3 (150-450); RBC Distribution Width CV 12.7 % (11.6-14.6); RBC Distribution Width SD 43.8 fl (35.1-43.9); Red Blood Count 5.09 M/mm3 (4.6-6.2); White Blood Count 10.1 K/mm3 (4.4-11.0)
--- NOTE | 2025-08-01 19:15 | EX.ED.DYSGE1 ---
HPI History of Present Illness Chief Complaint: General Illness Narrative Narrative: Chief complaint and HPI: 80-year-old male with past medical history of HTN, HLD, BPH presents for evaluation of generalized weakness and bilateral back pain. Patient states for the past 2 days he has been fatigued with decreased p.o. intake. States he has been sleeping a lot. States he has had generalized weakness in which he is having difficulty ambulating. States he tried to get out of bed to use the restroom when he was too weak and lowered himself to the ground. Did not hit his head. No LOC. States he was on the ground for approximately 20 minutes until his fianc?e found him and called EMS. He denies any fever, chills, shortness of breath, chest pain, URI symptoms, abdominal pain, nausea, vomiting, dysuria. Review of systems: See HPI Medications: As listed on the chart Allergies: As listed on the chart PFSH: Per chart Vital signs: As listed on the chart. Reviewed. Physical exam: Gen: A&O x3, NAD Head: Normocephalic, atraumatic Eyes: No sclera icterus, conjunctiva clear, PERRL, EOMI ENT: TMs clear BL, dry mucous membranes, posterior oropharynx unremarkable, uvula midline Neck: Trachea midline,Full ROM CV: RRR, no murmurs, no peripheral edema Resp: Lungs CTA BL, no w/r/c GI: Abd soft, non-distended, non-tender, no r/r/g : No CVA tenderness Musc: Moves all extremities, no deformity, strength intact in all extremities, no midline spinal tenderness, no bony step-off Skin: Warm, dry, no rash Neuro: Alert, oriented, grossly intact, sensation intact Psych: Cooperative, appropriate mood and affect [facility] Medical History Right inguinal hernia Cancer Cataracts, bilateral Skin cancer Pure hypercholesterolemia Chest pain Nonrheumatic mitral valve disorder Presence of stent in coronary artery (~03/15/15) Essential hypertension Mitral valve disorder Myocardial infarction Hypertension Atherosclerotic heart disease of tribal coronary artery without angina pectoris 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 Home Medications ?Medication ?Instructions ?Recorded ?Last Taken ?Type B-complex with vitamin C (Super B 1 tab PO DAILY 11/02/19 08/01/25 History Complex-Vitamin C tablet) cholecalciferol (vitamin D3) 25 25 mcg PO DAILY 11/02/19 08/01/25 History mcg (1,000 unit) tablet nitroglycerin 0.4 mg sublingual 0.4 mg sublingual Q5M PRN Chest 11/02/19 Unknown Rx tablet Pain #90 tabs atorvastatin 80 mg tablet 80 mg PO Q OTHER DAY 01/09/22 07/31/25 History escitalopram oxalate 20 mg tablet 20 mg PO QDAY 06/04/24 07/31/25 History isosorbide mononitrate 30 mg 30 mg PO DAILY #90 tabs 12/21/24 08/01/25 Rx tablet,extended release 24 hr aspirin 81 mg tablet,delayed 81 mg PO QDAY #90 tabs 06/08/25 08/01/25 Rx release (Adult Aspirin Regimen) metoprolol tartrate 50 mg tablet 50 mg PO BID 08/01/25 08/01/25 History tamsulosin 0.4 mg capsule 0.4 mg PO QHS 08/01/25 07/31/25 History Allergy/AdvReac Type Severity Reaction Status Date / Time No Known Allergies Allergy Verified 08/01/25 18:32 Family History Father CVA (cerebral vascular accident) Mother Rheumatic fever FH: CABG (coronary artery bypass surgery) Surgical History Status post percutaneous transluminal coronary angioplasty (~02/24/15) History of appendectomy Postsurgical percutaneous transluminal coronary angioplasty (PTCA) status Social History Smoking Status: Current every day smoker tobacco type: cigarettes alcohol intake: current alcohol intake frequency: a few times a week Alcohol type: beer substance use type: does not use caffeine: Yes Type: coffee Number of servings: 3 what type of physical activity do you participate in: none seatbelt use: always do you feel safe at home: Yes EXAM Physical Exam Const Vital Signs: 08/01/25 18:25 08/01/25 18:31 08/01/25 18:32 Temperature 99 F 99 F Temperature Source Oral Oral Pulse Rate 94 Respiratory Rate 22 H Respiratory Effort Normal Non-Labored Respiratory Pattern Normal Blood Pressure 147/81 H Blood Pressure Mean 103 Pulse Ox 92 Oxygen Delivery Method Room Air 08/01/25 18:32 08/01/25 20:37 08/01/25 23:00 Temperature 97.5 F L Temperature Source Oral Pulse Rate 81 77 Respiratory Rate 16 16 Respiratory Effort Normal Non-Labored Respiratory Pattern Normal Blood Pressure 167/96 H 171/93 H Blood Pressure Mean 119 119 Pulse Ox 94 98 Oxygen Delivery Method Room Air Room Air MDM MDM MDM Narrative Medical decision making narrative: 80-year-old male with past medical history of HTN, HLD, BPH presents for evaluation of generalized weakness and bilateral back pain. Patient states for the past 2 days he has been fatigued with decreased p.o. intake. States he has been sleeping a lot. States he has had generalized weakness in which he is having difficulty ambulating. States he tried to get out of bed to use the restroom when he was too weak and lowered himself to the ground. Did not hit his head. No LOC. States he was on the ground for approximately 20 minutes until his fianc?e found him and called EMS. Differential diagnosis includes but is not limited to viral illness, electrolyte abnormality, dehydration, UTI, anemia, ACS. NS bolus ordered. Weakness workup ordered. COVID, flu, RSV negative. CBC without leukocytosis or anemia. Patient does have thrombocytopenia of 130. CMP shows dehydration with an PURA. Creatinine 1.57. No transaminitis. CPK mildly elevated at 201 consistent with dehydration. Troponin unremarkable. UA positive for UTI. Urine culture sent. Rocephin ordered. Repeat troponin 23. Patient will warrant admission for his UTI with PURA however CT abdomen pelvis still pending at this time. Patient and family updated of the results and the plan. Patient has had an extended stay here in the emergency department secondary to radiology not reading imaging. Radiology was contacted multiple times for this and is made aware of the issue. CT abdomen pelvis still pending at this time. Patient signed out to night physician, Dr. Fritz. He will await final read with plans to admit the patient. EKG: Interpreted by me/EM physician: EKG shows normal sinus rhythm without any acute ischemic changes. Heart rate 88 Diagnostic: Interpreted by me/EM physician: Chest x-ray without pneumonia, effusion, cardiomegaly, pneumothorax. Radiology in agreement. Impression: 1. UTI 2. Dehydration with PURA 3. Thrombocytopenia 4. Generalized weakness Lab Data Labs: Laboratory Results - last 24 hr 08/01/25 08/01/25 08/01/25 18:50 20:00 20:40 WBC 10.1 RBC 5.09 Hgb 15.7 Hct 47.7 MCV 93.7 MCH 30.8 MCHC 32.9 RDW Std Deviation 43.8 RDW Coeff of Omega 12.7 Plt Count 130 L MPV 9.8 Immature Gran % (Auto) 0.500 Neut % (Auto) 87.8 H Lymph % (Auto) 3.0 L Luce % (Auto) 8.4 Eos % (Auto) 0.0 Baso % (Auto) 0.3 Absolute Neuts (auto) 8.8 H Absolute Lymphs (auto) 0.30 L Nucleated RBC % 0 Sodium 141 Potassium 4.1 Chloride 103 Carbon Dioxide 21.8 Anion Gap 16 H BUN 30 H Creatinine 1.57 H Estim Creat Clear Calc 39.39 L Est GFR (MDRD) Non-Af 45 L BUN/Creatinine Ratio 18.9 Glucose 149 H Lactic Acid 1.8 Calcium 9.2 Magnesium 2.0 Total Bilirubin 1.27 AST 20 ALT 6 Alkaline Phosphatase 79 Total Creatine Kinase 201 H Troponin T High Sens 20 Troponin T Hi Sens 2 Hr 23 H Total Protein 7.3 Albumin 4.1 Globulin 3.2 Albumin/Globulin Ratio 1.3 Urine Color Yellow Urine Clarity Cloudy Urine pH 6.0 Ur Specific [place] 1.015 Urine Protein 100 H Urine Glucose (UA) Normal Urine Ketones 15 H Urine Occult Blood 250 H Urine Nitrite Negative Urine Bilirubin Negative Urine Urobilinogen Normal Ur Leukocyte Esterase 500 H Urine RBC 25-50 SEEN Urine WBC >100 SEEN Ur Squamous Epith Cells 0-5 SEEN Urine Bacteria 3+ Hyaline Casts 0-5 SEEN Urine Mucus 1+ Radiography Diagnostic Testing: Clinical Impression(s) from Imaging Studies Chest X-Ray 08/01/25 19:22 IMPRESSION: No acute cardiopulmonary abnormality. Reading Location: [facility] Discharge Plan Triage Chief Complaint: General Illness Other Complaint: Fall ED Provider: Sincere Doss Dx/Rx/DC Orders Prescriptions: No Action B-complex with vitamin C [Super B Complex-Vitamin C] Tablet 1 tab PO DAILY cholecalciferol (vitamin D3) 25 mcg (1,000 unit) tablet 25 mcg PO DAILY nitroglycerin 0.4 mg tablet, sublingual 0.4 mg SUBLINGUAL Q5M PRN (Reason: Chest Pain) Qty: 90 6RF atorvastatin 80 mg tablet 80 mg PO Q OTHER DAY escitalopram oxalate 20 mg tablet 20 mg PO QDAY aspirin [Adult Aspirin Regimen] 81 mg tablet,delayed release (DR/EC) 81 mg PO QDAY Qty: 90 3RF metoprolol tartrate 50 mg tablet 50 mg PO BID tamsulosin 0.4 mg capsule 0.4 mg PO QHS isosorbide mononitrate 30 mg tablet extended release 24 hr 30 mg PO DAILY Qty: 90 3RF Primary Care Provider: Catherine Cota Referrals: Catherine Cota DO [Primary Care Provider, Internal Medicine] Print Language: Icelandic
--- NOTE | 2025-08-01 19:22 | RAD_ITS ---
PROCEDURE: CHEST PA AND LATERAL 08/01/2025 REASON FOR EXAM: WEAKNESS TECHNIQUE: Procedure Code: RADCXR Modality: DX Procedure: CHEST PA AND LATERAL COMPARISON: None FINDINGS: Hardware: None Heart: The heart size is normal. Mediastinum: The mediastinal contour is unremarkable. Lungs: The lungs are clear. Bones: The bones are unremarkable. RAD/Chest PA and Lateral IMPRESSION: No acute cardiopulmonary abnormality. Reading Location: [facility]
[2025-08-01 19:26] LABS: CPK Total, Creatine Kinase 201 U/L (24-195); Magnesium 2.0 mg/dL (1.5-2.2); Troponin T High Sensitivity 20 ng/L (<=22)
--- NOTE | 2025-08-01 19:35 | CT_ITS ---
PROCEDURE: ABDOMEN/PELVIS W IV CONT ONLY 08/01/2025 REASON FOR EXAM: BACK PAIN TECHNIQUE: Procedure Code: [id number] Modality: CT Procedure: ABDOMEN/PELVIS W IV CONT ONLY Coronal and Sagittal reconstruction series were provided. CONTRAST: OMNIPAQUE 350 VOLUME: 100 mL One or more dose reduction techniques were used (e.g., Automated exposure control, adjustment of the mA and/or kV according to patient size, use of iterative reconstruction technique. RADIATION DOSE SUMMARY: CTDlvol: 12.5 mGy DLP: 125 mGycm COMPARISON: CT scan on 05/10/2020. FINDINGS: Obstructing stone of the left ureter at L5 measuring 10.3 x 8.7 mm. Moderate to severe left hydroureteronephrosis. Left perinephric fat stranding. Mild bilateral basilar atelectatic pulmonary changes. Multiple well-defined simple hepatic cysts are noted with the largest measuring 4.2 cm, unchanged. Minimal sludge in the gallbladder. Diffuse thickening of the stomach suggestive of gastritis. Mild splenomegaly measuring 15.4 cm. Mild prostatomegaly. Diffuse thickening of the wall of the bladder, probably chronic bladder outlet obstruction. Bilateral fat containing inguinal hernias without incarceration. Uncomplicated colonic diverticulosis. Diffuse spondylosis. Uncomplicated infrarenal abdominal aortic aneurysm measuring 4.8 x 4.2 cm, increased in size since the prior exam. No CT evidence of an associated acute abnormality. Normal extrahepatic biliary system. Normal pancreas. Normal bilateral adrenal glands. Normal size of the right kidney. There are no right renal calculi. There is no right hydronephrosis. Normal visualized right ureter. Normal size of the left kidney. Normal small intestine. The appendix is visualized and appears normal. There is no demonstrated peritoneal fluid. Normal inferior vena cava. Normal retroperitoneum. There is no pelvic mass lesion or lymphadenopathy. There is no pelvic fluid. CT/Abdomen/Pelvis W IV Cont ONLY IMPRESSION: Obstructing stone of the left ureter at L5 measuring 10.3 x 8.7 mm. Moderate to severe left hydroureteronephrosis. Left perinephric fat stranding. Mild bilateral basilar atelectatic pulmonary changes. Multiple well-defined simple hepatic cysts are noted with the largest measuring 4.2 cm, unchanged. Minimal sludge in the gallbladder. Diffuse thickening of the stomach suggestive of gastritis. Mild splenomegaly measuring 15.4 cm. Mild prostatomegaly. Diffuse thickening of the wall of the bladder, probably chronic bladder outlet obstruction. Bilateral fat containing inguinal hernias without incarceration. Uncomplicated colonic diverticulosis. Diffuse spondylosis. Uncomplicated infrarenal abdominal aortic aneurysm measuring 4.8 x 4.2 cm, incr eased in size since the prior exam. No CT evidence of an associated acute abnormality. Reading Location[facility] [address]
[2025-08-01 19:42] LABS: AST(SGOT) 20 U/L (<=37); Alanine Aminotransfer ALT/SGPT 6 U/L (<=46); Albumin, Serum 4.1 g/dL (3.4-4.8); Alkaline Phosphatase 79 U/L (40-129); Anion Gap 16 (5-15); BUN 30 mg/dL (4-19); BUN/Creat Ratio 18.9 RATIO (10-20); Calcium,Total 9.2 mg/dL (7.6-11.0); Carbon Dioxide 21.8 mmol/L (21.0-32.0); Chloride 103 mmol/L (98-108); Estimated Creatinine Clearance 39.39 ml/min (50-250); Globulin 3.2 g/dL (2.2-4.2); Glucose 149 mg/dL (70-99); Potassium 4.1 mmol/L (3.3-5.1)
[2025-08-01 20:09] LABS: Color, Urine Yellow (Yellow); Glucose, Dipstick Normal (Normal); Ketone-Dipstick 15 mg/dl (Negative); Leukocyte Esterase-Dipstick 500 /ul (Negative); Nitrite-Dipstick Negative (Negative); Occult Blood-Urine 250 /ul (Negative); Protein-Dipstick 100 mg/dl (Negative); Specific Gravity, Urine 1.015 (1.002-1.030); Urine Bilirubin Dipstick Negative (Negative)
[2025-08-01 20:21] LABS: Red Blood Cells-Urine 25-50 SEEN /hpf (0-5)
[2025-08-01 20:22] LABS: Mucous, Urine 1+ /hpf (<or=2+); Squamous Epithelial Cells - UA 0-5 SEEN /hpf (0-5)
[2025-08-01 20:37] VITALS: BP 167/96; PULSE 81; RESP 16; TEMP 36.4; O2SAT 94
[2025-08-01 21:20] LABS: Troponin T High Sens 2 HR 23 ng/L (<=22)
[2025-08-01 23:00] VITALS: BP 171/93; PULSE 77; RESP 16; O2SAT 98
[2025-08-02] VITALS (11 sets, daily range): BP systolic 124–172; BP diastolic 65–101; PULSE 72–79; RESP 16–18; TEMP 36.6–37.1; O2SAT 94–96; BMI 22.0
--- NOTE | 2025-08-02 02:36 | PCM.HP.STD ---
HPI - General General Date of Admission: 08/02/25 Date of Service: 08/02/25 Chief Complaint: Generalized weakness, unable to get up from the bed for 2 to 3 days HPI Narrative RICKI BHARDWAJ, is a 80 M who presents ED as he could not get out of the bed for last 2 to 3 days. He felt his legs are too weak and could not stand up or walk along with generalized weakness. He also felt pain in both lower legs which moved to proximally. Complain of left lateral lumbar area pain localized 4-5/10 intensity without radiation. Patient stated his said that he has fever but did not feel any chills or rigors. No nausea vomiting or headache. He did not much eat or drink for the last 2 days In ED, CT scan was done of abdomen which showed left ureteric stone with hydroureter and findings of left pyelonephritis. Urologist consulted and further admitted. Vitals shows blood pressure elevated But no fever. Social history: Current everyday smoker since age of 20. Quit for 2 years but relapsed. [facility] Medical History (Updated 08/02/25 @ 02:[address] 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 Home Medications ?Medication ?Instructions ?Recorded ?Last Taken ?Type B-complex with vitamin C (Super B 1 tab PO DAILY 11/02/19 08/01/25 History Complex-Vitamin C tablet) cholecalciferol (vitamin D3) 25 25 mcg PO DAILY 11/02/19 08/01/25 History mcg (1,000 unit) tablet nitroglycerin 0.4 mg sublingual 0.4 mg sublingual Q5M PRN Chest 11/02/19 Unknown Rx tablet Pain #90 tabs atorvastatin 80 mg tablet 80 mg PO Q OTHER DAY 01/09/22 07/31/25 History escitalopram oxalate 20 mg tablet 20 mg PO QDAY 06/04/24 07/31/25 History isosorbide mononitrate 30 mg 30 mg PO DAILY #90 tabs 12/21/24 08/01/25 Rx tablet,extended release 24 hr aspirin 81 mg tablet,delayed 81 mg PO QDAY #90 tabs 06/08/25 08/01/25 Rx release (Adult Aspirin Regimen) metoprolol tartrate 50 mg tablet 50 mg PO BID 08/01/25 08/01/25 History tamsulosin 0.4 mg capsule 0.4 mg PO QHS 08/01/25 07/31/25 History Allergy/AdvReac Type Severity Reaction Status Date / Time No Known Allergies Allergy Verified 08/01/25 18:32 Family History Father CVA (cerebral vascular accident) Mother Rheumatic fever FH: CABG (coronary artery bypass surgery) Surgical History Status post percutaneous transluminal coronary angioplasty (~02/24/15) History of appendectomy Postsurgical percutaneous transluminal coronary angioplasty (PTCA) status Social History Smoking Status: Current every day smoker tobacco type: cigarettes alcohol intake: current alcohol intake frequency: a few times a week Alcohol type: beer substance use type: does not use caffeine: Yes Type: coffee Number of servings: 3 what type of physical activity do you participate in: none seatbelt use: always do you feel safe at home: Yes ROS ROS Narrative Constitutional: Reports fatigue and generalized weakness. Subjective fever HEENT: Reports systems reviewed and no addt'l complaints, except as documented Respiratory/Chest: No acute shortness of breath or respiratory distress or wheezing. Current everyday smoker CVS: No chest pain or shortness of breath. No CAD with cardiac stent in 2014 Gastrointestinal: Denies coffee ground emesis, hematemesis or vomiting Genitourinary: denies burning urination or new urinary tract symptoms Musculoskeletal: Left lateral lumbar area pain. Denies acute joint pain or limited range of motion. No acute injury Neurologic: Denies seizure-like symptoms. skin: No ulcer. No rash Endocrinology: Reports systems reviewed and no addt'l complaints, except as documented Hematologic/Lymphatic: Reports systems reviewed and no addt'l complaints, except as documented Rest 14 ROS are negative except as mentioned in HPI Vital Signs Vital Signs Vital Signs: 08/01/25 18:25 08/01/25 18:31 08/01/25 18:32 Temperature 99 F 99 F Temperature Source Oral Oral Pulse Rate 94 Respiratory Rate 22 H Respiratory Effort Normal Non-Labored Respiratory Pattern Normal Blood Pressure 147/81 H Blood Pressure Mean 103 Pulse Ox 92 Oxygen Delivery Method Room Air 08/01/25 18:32 08/01/25 20:37 08/01/25 23:00 Temperature 97.5 F L Temperature Source Oral Pulse Rate 81 77 Respiratory Rate 16 16 Respiratory Effort Normal Non-Labored Respiratory Pattern Normal Blood Pressure 167/96 H 171/93 H Blood Pressure Mean 119 119 Pulse Ox 94 98 Oxygen Delivery Method Room Air Room Air Weight Weight: 166 lb 10.711 oz Body Mass Index (BMI) 23.3 Physical Exam Narrative General: Alert, Oriented x3, Cooperative. BMI 23.3 kg/m? HEENT: Atraumatic, PERRLA, EOMI, Normocephalic. Oral: No Gingival or Mucosal Lesions/ Ulcerations Neck: Supple, No JVD, Negative Carotid Bruits Chest wall/Lungs: Air entry diminished in bilateral lung bases. No crepitation/rhonchi Cardiovascular: Regular rate and rhythm, Normal S1,S2, No M/G/R Abdomen: Bowel Sounds Present, Soft, no distention. Right inguinal hernia, reducible. No tenderness over hernia swelling : No dysuria. Mild tenderness present over left hypochondriac/lumbar area. No suprapubic tenderness. Extremities: No edema, Capillary Refill Less than 3 Seconds Skin: No rashes, No breakdown Musculoskeletal: No Tenderness to Palpation of Joints or Extremities. ROM intact. Muscle strength 5/5 at major joints of lower extremities Neurological: Cranial nerves II-XII grossly intact, DTR 2+/4. No acute focal neurological deficit. Psych/Mental Status: Normal Affect, Appropriate. Results Lab / Micro Data 08/01/25 18:50 08/01/25 18:50 Labs: Laboratory Results - last 24 hr 08/01/25 18:50: WBC 10.1, RBC 5.09, Hgb 15.7, Hct 47.7, MCV 93.7, MCH 30.8, MCHC 32.9, RDW Std Deviation 43.8, RDW Coeff of Omega 12.7, Plt Count 130 L, MPV 9.8, Immature Gran % (Auto) 0.500, Neut % (Auto) 87.8 H, Lymph % (Auto) 3.0 L, [place] % (Auto) 8.4, Eos % (Auto) 0.0, Baso % (Auto) 0.3, Absolute Neuts (auto) 8.8 H, Absolute Lymphs (auto) 0.30 L, Nucleated RBC % 0, Sodium 141, Potassium 4.1, Chloride 103, Carbon Dioxide 21.8, Anion Gap 16 H, BUN 30 H, Creatinine 1.57 H, Estim Creat Clear Calc 39.39 L, Est GFR (MDRD) Non-Af 45 L, BUN/Creatinine Ratio 18.9, Glucose 149 H, Lactic Acid 1.8, Calcium 9.2, Magnesium 2.0, Total Bilirubin 1.27, AST 20, ALT 6, Alkaline Phosphatase 79, Total Creatine Kinase 201 H, Troponin T High Sens 20, Total Protein 7.3, Albumin 4.1, Globulin 3.2, Albumin/Globulin Ratio 1.3 08/01/25 20:00: Urine Color Yellow, Urine Clarity Cloudy, Urine pH 6.0, Ur Specific [place] 1.015, Urine Protein 100 H, Urine Glucose (UA) Normal, Urine Ketones 15 H, Urine Occult Blood 250 H, Urine Nitrite Negative, Urine Bilirubin Negative, Urine Urobilinogen Normal, Ur Leukocyte Esterase 500 H, Urine RBC 25-50 SEEN, Urine WBC >100 SEEN, Ur Squamous Epith Cells 0-5 SEEN, Urine Bacteria 3+, Hyaline Casts 0-5 SEEN, Urine Mucus 1+ 08/01/25 20:40: Troponin T Hi Sens 2 Hr 23 H Micro: Microbiology 08/01/25 18:50 Mucosa - Nose SARS-CoV-2, Influenza & RSV (PCR) - Final Imaging Radiology Impression Chest X-Ray 08/01/25 19:22 IMPRESSION: No acute cardiopulmonary abnormality. Reading Location: [facility] Abdomen/Pelvis CT 08/01/25 19:35 IMPRESSION: Obstructing stone of the left ureter at L5 measuring 10.3 x 8.7 mm. Moderate to severe left hydroureteronephrosis. Left perinephric fat stranding. Mild bilateral basilar atelectatic pulmonary changes. Multiple well-defined simple hepatic cysts are noted with the largest measuring 4.2 cm, unchanged. Minimal sludge in the gallbladder. Diffuse thickening of the stomach suggestive of gastritis. Mild splenomegaly measuring 15.4 cm. Mild prostatomegaly. Diffuse thickening of the wall of the bladder, probably chronic bladder outlet obstruction. Bilateral fat containing inguinal hernias without incarceration. Uncomplicated colonic diverticulosis. Diffuse spondylosis. Uncomplicated infrarenal abdominal aortic aneurysm measuring 4.8 x 4.2 cm, increased in size since the prior exam. No CT evidence of an associated acute abnormality. Reading Location: [place] [id number] Assessment & Plan Assessment/Plan (1) Generalized muscle weakness: (2) Kidney stone: (3) Pyelonephritis: (4) Hydroureter on left: PLAN: Plan This 71-year-old gentleman being admitted for evaluation of left kidney stone with pyelonephritis and hydronephrosis 1. Left obstructing ureteric stone at L5 10.3 x 8.7 mm complicating into left hydroureteronephrosis and left pyelonephritis: Patient had CT abdomen pelvis with IV contrast, images individually reviewed. It shows obstructing stone at left ureter with moderate to severe left hydroureteronephrosis and left perinephric fat stranding. Patient denies dysuria or any lower urinary tract symptoms. UA shows LE 500, WBC more than 100 cells, RBC 25-50 cells, squamous epithelial 0-5 cells, bacteria 3+. Urine nitrite negative. Patient was started on IV ceftriaxone in the ED and continued. Urine culture ordered. Urologist, Dr. Quiñonez is consulted. Anticipate possible cystoscopy 2. PURA: Patient creatinine was 1.01 in 2019. Admitting BUN 30 and creatinine 1.57, BUN/creatinine ratio 19. IV fluid ordered. Creatinine was 1.61 time in 2014. Monitor kidney function. 3. Generalized weakness/lower extremity weakness probably due to pyelonephritis/infection: Patient not showing signs and symptoms of sepsis fortunately with WBC count 20.1 thousand. Lactic acid 1.8.. Muscle strength 5/5 at bilateral knee and hip joints. PT and OT ordered. CPK elevated 201 does not meet criteria for rhabdomyolysis. On IV fluid. 4. CT finding of incidental simple hepatic cyst: CT shows multiple well-defined simple hepatic cyst largest 4.2 cm, unchanged. 5. Chronic BPH with bladder outlet obstruction: CT also shows diffuse thickening of bladder wall, chronic bladder outlet obstruction. Patient follows Dr. Quiñonez for long time. On tamsulosin continued 6. Chronic right inguinal hernia: Right inguinal hernia is palpable with impulse on coughing. It is reducible, not incarcerated or inflamed. 7. CAD status post cardiac stent: Patient had cardiac stent in distal left circumflex and OM in 2014. Follows [place] [facility]. On baby aspirin, metoprolol, isosorbide mononitrate and atorvastatin; continued 8. Essential hypertension and dyslipidemia: BP is high 171/93. IV hydralazine as needed. Monitor BP and titrate antihypertensive medication accordingly. 9. DVT prophylaxis, high risk: Started on Lovenox 40 mg subcu daily from tomorrow a.m. Living will/advanced directive/end of life care: Patient does have living will or advanced directive. His son is power of commonwealth attorney for health after discussion of benefits/risks procedures involved with full code, DNR CC arrest and DNR CC, the patient opted for DNR CC arrest with no interval Patient doesn't want artificial life support including intubation, tube feed, ventilator and/chest compression, central venous catheter, vasopressor and DC shock if needed Total time spent in [id number] encounter in discussion of advanced directive 17 minutes. Charges/Coding Visit Charges Inpatient E&M: 79269 Init Hosp L3 Procedures Hospitalists Procedures: 50771 Advncd Care Plan 30 Min
--- OUTSIDE RECORDS SUMMARY | 2025-08-02 02:52 | XMS RPT_ITS | CCD ---
Author Organization [facility] CliniSymn Care Team Providers Care Ell Teacher Name Role Phone Coco SINCLAIR, Dolly Canas Unavailable Unavailable Jaymie Gutierrez Y Unavailable Unavailable Meghan Sanchez Unavailable Unavailable ANDREZ Matute, Dana Quesada Unavailable Brenda, Harumi Y Unavailable Unavailable Ctaherine Garcia Unavailable Chanelle Bailey Unavailable Gravius, Keke Unavailable Unavailable Slarb, Bijal Unavailable Unavailable Unavailable Unavailable Florentino Amos Unavailable Unavailable Meghan Sanchez Unavailable Unavailable Leana LANG, Ranjith Thompson Unavailable Nicho Cage Unavailable [phone] Christiano, Denisse Unavailable Unavailable Myrna Mena Unavailable Unavailable Jt Fidelina L Unavailable Unavailable Florentino Amos Unavailable Unavailable Gravius, Keke Unavailable Unavailable MessengerDenisse Unavailable Unavailable Jt Fidelina L Unavailable Unavailable Ciesa, Antonette Unavailable Florentino Sanchez Unavailable Unavailable Jessi Sheriff Unavailable Unavailable Catherine Garcia DO Unavailable Nicho Cage MD Unavailable Jessi Sheriff LPN Unavailable Unavailable Messenger Denisse SINCLAIR Unavailable Unavailable Fidelina Waters RN Unavailable Unavailable Gravius SALVATORE, Keke Unavailable Unavailable Florentino Sanchez LPN Unavailable Unavailable Slarb SHOE SALESMAN, Bijal Unavailable Unavailable Unavailable Unavailable Tarah Calzada LPN Unavailable Unavailable Ciesa ASSEMBLED WOOD PRODUCTS REPAIRER, Antonette Unavailable Catherine Garcia DO Unavailable Dr. Catherine Garcia Primary Care Provider Dr. Catherine Garcia Referring Provider Seth GAGE, FIRST COOK-C Denisse Attending Provider Dr. Ranjith Dueñas Attending Provider [phone] Ciro SHAHID, Barbara Unavailable Unavailable Naeem ASSEMBLED WOOD PRODUCTS REPAIRER, Demetria Unavailable Carley LIVESTOCK YARD SUPERVISOR, Jersona Unavailable Unavailable Catherine Garcia DO Attending Unavailable Jose APARICIO, Catherine Referring Unavailable Jose APARICIO, Catherine Consulting Unavailable Dr. Catherine Garcia Primary Care Provider [phone] Dr. Catherine Garcia Referring Provider Seth FIRST COOK, FIRST COOKRamu Salcedo Attending Provider Seth GAGE, MERARI-Jerry Salcedo Referring Provider Seth GAGE, MERARI-Jerry Salcedo Other Provider [phone] Dr. Pacheco James Attending Provider [phone] JOSE APARICIO, DR ALEXANDER Primary Care Physician [phone] MATTHEW LANG, DR CHRISTIANSON Attending Unavailabl e JOSE APARICIO, DR ALEXANDER Primary Care Unavailab Ricki Jean Baptiste Attending Unavailable Catherine Garcia Primary Care Unavailable Catherine Garcia Referring Unavailable Catherine Garcia Primary Care Unavailable Catherine Garcia Referring Unavailable Taiwo Knight Attending Unavailable Catherine Garcia Primary Care Unavailable Catherine Garcia Referring Unavailable Evangelist Gao NP Attending Unavailable Jose APARICIO, Dr. Alexander Primary Care Physician Dr. Catherine Garcia DO Referring Provider [phone] Evangelist Cabrera Attending Physician [phone] Medications Current Medications Medication Drug Class(es) Dates Sig (Normalized) Sig (Original) aspirin 81 mg delayed release oral tablet (20 sources) Platelet Aggregation Inhibitor, Nonsteroidal Anti-inflammatory Drug Start: 06-08-2025 take 1 tablet by mouth once daily Aspirin (Adult Aspirin Regimen) 81 mg tablet,delayed release (DR/EC) Active 81 mg PO daily 90 June 08, 2025 12:00am Complies with drug therapy Start: 04-14-2015 End: 05-20-2020 take 1 tablet by mouth five times daily Aspirin 81 MG tablet,chewable Discontinued 81 mg PO DAILY@0800 April 14, 2015 12:00am May 20, 2020 11:59am will stop 5 days Start: 03-30-2015 take 1 tablet by suyapa th once daily ASPIRIN 81 MG TABS One tablet by mouth daily ASPIRIN [id number] Gloria Norton RN Start: 03-30-2015 take 1 tablet by suyapa th once daily ASPIRIN 81 MG TABS One tablet by mouth daily ASPIRIN [id number] Gloria Norton RN Start: 03-30-2015 take 1 tablet by suyapa th once daily ASPIRIN EC 81 MG TBEC Take one tab by mouth daily ASPIRIN [id number] Yuki Santillan LPN atorvastatin 80 mg oral tabl et (20 sources) HMG-CoA Reductase Inhibitor Start: 06-06-2023 Start: 02-15-2023 Start: 11-16-2021 take 1 tablet by suyapa th every other day Atorvastatin 80 mg tablet Active 80 mg PO every other day January 09, 2022 12:00am Complies with drug therapy Start: 02-10-2021 Start: 08-15-2020 Start: 01-13-2020 take 1 tablet by suyapa th every other day Atorvastatin Calcium 80 MG Oral Tablet 1 Tablet qod for 0 days Quantity: 30 {Tablet} Refills: 3 Ordered: 13-Jan-2020 Catherine Garcia DO, DO, Kathleen Start : 13-Jan-2020 Active Start: 05-06-2019 take 1 tablet by suyapa th every other day Atorvastatin Calcium 80 MG Oral Tablet 1 Tablet qod for 0 days Quantity: 30 {Tablet} Refills: 3 Ordered: 06-May-2019 Catherine Garcia DO, DO, Kathleen Start : 06-May-2019 Active Start: 05-05-2018 take 1 tablet by suyapa th every other day Atorvastatin Calcium 80 MG Oral Tablet 1 Tablet qod for 0 days Quantity: 30 {Tablet} Refills: 3 Ordered: 05-May-2018 Catherine Garcia DO, DO, Kathleen Start : 05-May-2018 Active Start: 03-30-2015 take 1 tablet by suyapa th once daily ATORVASTATIN CALCIUM 80 MG TABS One tablet by mouth daily ATORVASTATIN CALCIUM [id number] Gloria Norton RN B-Complex With Vitamin C (Stevens per B Complex-Vitamin C) tablet (3 sources) Start: 11-02-2019 B-Complex With Vitamin C (Super B Complex-Vitamin C) tablet Active 1 {tbl} PO DAILY November 02, 2019 12:00am Complies with drug therapy Start: 11-02-2019 take 1 tablet by suyapa th once daily B-Complex With Vitamin C (Super B Complex-Vitamin C) tablet Active 1 TABLET PO DAILY November 02, 2019 12:00am cholecalciferol 0.025 mg oral tablet (20 sources) Vitamin D Start: 11-02-2019 take 1 tablet by mouth once daily Cholecalciferol (Vitamin D3) 25 mcg (1,000 unit) tablet Active 25 ug PO DAILY November 02, 2019 12:00am Complies with drug therapy Vitamin D3 25 MC G (1000 UT) Oral Capsule (25 MCG (1000 UT)) Active escitalopram 20 mg oral tablet (20 sources) Serotonin Reuptake Inhibitor Start: 06-04-2024 take 1 tablet by mouth once daily Escitalopram Oxalate 20 mg tablet Active 20 mg PO daily June 04, 2024 12:00am Complies with drug therapy Start: 07-19-2021 Start: 07-27-2020 Start: 06-24-2020 take 1 tablet by suyapa th once daily at bedtime Escitalopram Oxalate 20 MG Oral Tablet 1 (one) Tablet qhs for 0 days Quantity: 30 {Tablet} Refills: 0 Ordered: 24-Jun-2020 Catherine Garcia DO, DO, Kathleen Start : 24-Jun-2020 Active Start: 05-13-2020 take 1 tablet by suyapa th once daily at bedtime Escitalopram Oxalate 20 MG Oral Tablet 1 (one) Tablet qhs for 0 days Quantity: 30 {Tablet} Refills: 0 Ordered: 13-May-2020 Catherine Garcia DO, DO, Kathleen Start : 13-May-2020 Active Start: 04-21-2020 take 1 tablet by suyapa th once daily at bedtime Escitalopram Oxalate 20 MG Oral Tablet 1 (one) Tablet qhs for 0 days Quantity: 30 {Tablet} Refills: 0 Ordered: 21-Apr-2020 Catherine Garcia DO, DO, Kathleen Start : 21-Apr-2020 Active Start: 04-13-2020 take 1 tablet by suyapa th once daily at bedtime Escitalopram Oxalate 20 MG Oral Tablet 1 (one) Tablet qhs for 0 days Quantity: 30 {Tablet} Refills: 0 Ordered: 13-Apr-2020 Keke Mike CMA Start : 13-Apr-2020 Active Start: 12-14-2019 take 1 tablet by suyapa th once daily at bedtime Escitalopram Oxalate 20 MG Oral Tablet 1 (one) Tablet qhs for 0 days Quantity: 30 {Tablet} Refills: 3 Ordered: 14-Dec-2019 Catherine Garcia DO, DO, Kathleen Start : 14-Dec-2019 Active Start: 12-10-2018 End: 06-11-2019 Start: 12-10-2018 End: 04-17-2018 take 1 tablet by mouth once daily Lexapro 20 MG Oral Tablet 1 Tablet QD for 0 days Quantity: 30 {Tablet} Refills: 3 Ordered: 10-Dec-2018 Catherine Garcia DO, DO, Kathleen Start : 10-Dec-2018 End : 17-Apr-2018 Active Start: 12-10-2018 End: 04-17-2018 take 1 tablet by mouth once daily Lexapro 20 MG Oral Tablet 1 Tablet QD for 0 days Quantity: 30 {Tablet} Refills: 3 Ordered: 10-Dec-2018 Catherine Garcia DO, DO, Kathleen Start : 10-Dec-2018 End : 17-Apr-2018 Active Start: 12-10-2018 End: 04-17-2018 take 1 tablet by mouth once daily Lexapro 20 MG Oral Tablet 1 Tablet QD for 0 days Quantity: 30 {Tablet} Refills: 3 Ordered: 10-Dec-2018 Jose DOCatherine DO, Kathleen Start : 10-Dec-2018 End : 17-Apr-2018 Active Start: 12-10-2018 End: 04-17-2018 take 1 tablet by mouth once daily Lexapro 20 MG Oral Tablet 1 Tablet QD for 0 days Quantity: 30 {Tablet} Refills: 3 Ordered: 10-Dec-2018 Catherine Garcia DO, DO, Kathleen Start : 10-Dec-2018 End : 17-Apr-2018 Active Start: 12-10-2018 End: 04-17-2018 take 1 tablet by mouth once daily Lexapro 20 MG Oral Tablet 1 Tablet QD for 0 days Quantity: 30 {Tablet} Refills: 3 Ordered: 10-Dec-2018 Catherine Garcia DO, DO, Kathleen Start : 10-Dec-2018 End : 17-Apr-2018 Active Start: 12-10-2018 End: 04-17-2018 take 1 tablet by mouth once daily Lexapro 20 MG Oral Tablet 1 Tablet QD for 0 days Quantity: 30 {Tablet} Refills: 3 Ordered: 10-Dec-2018 Catherine Garcia DO, DO, Kathleen Start : 10-Dec-2018 End : 17-Apr-2018 Active Start: 12-10-2018 End: 04-17-2018 take 1 tablet by mouth once daily Lexapro 20 MG Oral Tablet 1 Tablet QD for 0 days Quantity: 30 {Tablet} Refills: 3 Ordered: 10-Dec-2018 Catherine Garcia DO, DO, Kathleen Start : 10-Dec-2018 End : 17-Apr-2018 Active Start: 12-10-2018 End: 04-17-2018 take 1 tablet by mouth once daily Lexapro 20 MG Oral Tablet 1 Tablet QD for 0 days Quantity: 30 {Tablet} Refills: 3 Ordered: 10-Dec-2018 Catherine Garcia DO, DO, Kathleen Start : 10-Dec-2018 End : 17-Apr-2018 Active Start: 12-10-2018 End: 04-17-2018 take 1 tablet by mouth once daily Lexapro 20 MG Oral Tablet 1 Tablet QD for 0 days Quantity: 30 {Tablet} Refills: 3 Ordered: 10-Dec-2018 Catherine Garcia DO, DO, Kathleen Start : 10-Dec-2018 End : 17-Apr-2018 Active Start: 12-10-2018 End: 04-17-2018 take 1 tablet by mouth once daily Lexapro 20 MG Oral Tablet 1 Tablet QD for 0 days Quantity: 30 {Tablet} Refills: 3 Ordered: 10-Dec-2018 Catherine Garcia DO, DO, Kathleen Start : 10-Dec-2018 End : 17-Apr-2018 Active Start: 12-10-2018 End: 04-17-2018 take 1 tablet by mouth once daily Lexapro 20 MG Oral Tablet 1 Tablet QD for 0 days Quantity: 30 {Tablet} Refills: 3 Ordered: 10-Dec-2018 Jose APARICIOCatherine JoseIrina parker DOeen Start : 10-Dec-2018 End : 17-Apr-2018 Active Start: 07-07-2018 End: 04-17-2018 take 1 tablet by mouth once daily Lexapro 20 MG Oral Tablet 1 Tablet QD for 0 days Quantity: 30 {Tablet} Refills: 3 Ordered: 07-Jul-2018 Jose APARICIOCatherine DO, Kathleen Start : 07-Jul-2018 End : 17-Apr-2018 Active Start: 07-07-2018 End: 04-17-2018 take 1 tablet by mouth once daily Lexapro 20 MG Oral Tablet 1 Tablet QD for 0 days Quantity: 30 {Tablet} Refills: 3 Ordered: 07-Jul-2018 JoseCatherine parker DO, DO, Kathleen Start : 07-Jul-2018 End : 17-Apr-2018 Active Start: 07-07-2018 End: 04-17-2018 take 1 tablet by mouth once daily Lexapro 20 MG Oral Tablet 1 Tablet QD for 0 days Quantity: 30 {Tablet} Refills: 3 Ordered: 07-Jul-2018 Jose Catheirne APARICIO JoseIrina parker DOeen Start : 07-Jul-2018 End : 17-Apr-2018 Active Start: 04-17-2018 take 1 tablet by suyapa th once daily at bedtime Escitalopram Oxalate 20 MG Oral Tablet 1 (one) Tablet Tablet qhs for 0 days Quantity: 30 {Tablet} Refills: 3 Ordered: 25-Apr-2018 Denisse Alvarado LPN Start : 17-Apr-2018 Active 24 hr isosorbide mononitrate 30 mg extended release oral tablet (20 sources) Nitrate Vasodilator Start: 10-21-2020 End: 12-21-2024 take 1 tablet by mouth once daily, then take 1 tablet by mouth every twenty-four hours Isosorbide Mononitrate 30 mg tablet extended release 24 hr Active 30 mg PO DAILY December 21, 2024 10:29am Complies with drug therapy Start: 10-21-2018 End: 10-16-2019 take 1 tablet by mouth once daily, then take 1 tablet by mouth every twenty-four hours Isosorbide Mononitrate 30 mg tablet extended release 24 hr Discontinued 30 mg PO DAILY October 21, 2018 1:00am October 16, 2019 12:55pm 24 hr metoprolol succinate 50 mg extended release oral tablet (20 sources) beta-Adrenergic Mackenzie Start: 06-06-2023 take 1 tablet by mouth once daily Metoprolol Succinate 50 mg tablet extended release 24 hr Active 50 mg PO DAILY June 06, 2023 8:40am Complies with drug therapy Start: 10-31-2022 End: 07-24-2011 Start: 10-31-2022 End: 07-24-2011 Start: 10-31-2022 End: 07-24-2011 Start: 10-31-2022 End: 07-24-2011 Start: 10-31-2022 End: 07-24-2011 Start: 10-31-2022 End: 07-24-2011 Start: 05-21-2022 Metoprolol Tar trate 50 mg oral tablet Dose : 50 mg = 1 tab(s), Oral, BID, # 60 tab(s), 0 Refill(s) Start Date: 05/21/22 Status: Ordered Start: 03-13-2022 End: 06-06-2023 Metoprolol Succinate 50 mg t ablet extended release 24 hr Discontinued 100 mg PO DAILY March 13, 2022 3:38pm June 06, 2023 8:40am Start: 03-13-2022 End: 06-06-2023 take 100 mg by mouth once daily Metoprolol Succinate Discontinued 100 MG PO DAILY March 13, 2022 3:38pm June 06, 2023 8:40am Start: 02-06-2022 End: 03-13-2022 take 1 tablet by mouth twice daily Metoprolol Succinate 50 mg tablet extended release 24 hr Discontinued 50 mg PO TWICE A DAY February 06, 2022 4:32pm March 13, 2022 3:39pm Start: 07-05-2021 End: 07-24-2011 Start: 07-05-2021 End: 07-24-2011 Start: 07-05-2021 End: 07-24-2011 Start: 07-05-2021 End: 07-24-2011 Start: 07-05-2021 End: 07-24-2011 Start: 07-05-2021 End: 07-24-2011 Start: 07-05-2021 End: 07-24-2011 Start: 07-05-2021 End: 07-24-2011 Start: 07-05-2021 End: 07-24-2011 Start: 07-05-2021 End: 07-24-2011 Start: 07-05-2021 End: 07-24-2011 Start: 08-11-2020 End: 07-24-2011 Start: 08-11-2020 End: 07-24-2011 Start: 08-11-2020 End: 07-24-2011 take 1 tablet by mouth twice daily Lopressor 50 MG Oral Tablet 1 (one) Tablet bid for 0 days Quantity: 60 {Tablet} Refills: 0 Ordered: 11-Aug-2020 Jose DOCatherine Jose DO Catherine Start : 11-Aug-2020 End : 24-Jul-2011 Active Start: 08-11-2020 End: 07-24-2011 take 1 tablet by mouth twice daily Lopressor 50 MG Oral Tablet 1 (one) Tablet bid for 0 days Quantity: 60 {Tablet} Refills: 0 Ordered: 11-Aug-2020 Jose DOCatherine Jose DOIrinaCatherine Start : 11-Aug-2020 End : 24-Jul-2011 Active Start: 08-11-2020 End: 07-24-2011 take 1 tablet by mouth twice daily Lopressor 50 MG Oral Tablet 1 (one) Tablet bid for 0 days Quantity: 60 {Tablet} Refills: 0 Ordered: 11-Aug-2020 Jose DOCatherine Jose DO Catherine Start : 11-Aug-2020 End : 24-Jul-2011 Active Start: 08-11-2020 End: 07-24-2011 take 1 tablet by mouth twice daily Lopressor 50 MG Oral Tablet 1 (one) Tablet bid for 0 days Quantity: 60 {Tablet} Refills: 0 Ordered: 11-Aug-2020 Jose DOCatherine Jose DO Catherine Start : 11-Aug-2020 End : 24-Jul-2011 Active Start: 07-18-2020 End: 07-24-2011 take 1 tablet by mouth twice daily Lopressor 50 MG Oral Tablet 1 (one) Tablet bid for 0 days Quantity: 60 {Tablet} Refills: 0 Ordered: 18-Jul-2020 Jose DO Catherine Jose DO Catherine Start : 18-Jul-2020 End : 24-Jul-2011 Active Start: 07-18-2020 End: 07-24-2011 take 1 tablet by mouth twice daily Lopressor 50 MG Oral Tablet 1 (one) Tablet bid for 0 days Quantity: 60 {Tablet} Refills: 0 Ordered: 18-Jul-2020 Catherine Garcia DO, DO, Kathleen Start : 18-Jul-2020 End : 24-Jul-2011 Active Start: 07-18-2020 End: 07-24-2011 take 1 tablet by mouth twice daily Lopressor 50 MG Oral Tablet 1 (one) Tablet bid for 0 days Quantity: 60 {Tablet} Refills: 0 Ordered: 18-Jul-2020 Catherine Garcia DO, DO, Kathleen Start : 18-Jul-2020 End : 24-Jul-2011 Active Start: 07-18-2020 End: 07-24-2011 take 1 tablet by mouth twice daily Lopressor 50 MG Oral Tablet 1 (one) Tablet bid for 0 days Quantity: 60 {Tablet} Refills: 0 Ordered: 18-Jul-2020 Catherine Garcia DO, DO, Kathleen Start : 18-Jul-2020 End : 24-Jul-2011 Active Start: 07-18-2020 End: 07-24-2011 take 1 tablet by mouth twice daily Lopressor 50 MG Oral Tablet 1 (one) Tablet bid for 0 days Quantity: 60 {Tablet} Refills: 0 Ordered: 18-Jul-2020 Catherine Garcia DO, DO, Kathleen Start : 18-Jul-2020 End : 24-Jul-2011 Active Start: 06-20-2020 End: 07-24-2011 take 1 tablet by mouth twice daily Lopressor 50 MG Oral Tablet 1 (one) Tablet bid for 0 days Quantity: 60 {Tablet} Refills: 0 Ordered: 20-Jun-2020 Start : 20-Jun-2020 End : 24-Jul-2011 Active Start: 06-20-2020 End: 07-24-2011 take 1 tablet by mouth twice daily Lopressor 50 MG Oral Tablet 1 (one) Tablet bid for 0 days Quantity: 60 {Tablet} Refills: 0 Ordered: 20-Jun-2020 Start : 20-Jun-2020 End : 24-Jul-2011 Active Start: 06-20-2020 End: 07-24-2011 take 1 tablet by mouth twice daily Lopressor 50 MG Oral Tablet 1 (one) Tablet bid for 0 days Quantity: 60 {Tablet} Refills: 0 Ordered: 20-Jun-2020 Start : 20-Jun-2020 End : 24-Jul-2011 Active Start: 06-20-2020 End: 07-24-2011 take 1 tablet by mouth twice daily Lopressor 50 MG Oral Tablet 1 (one) Tablet bid for 0 days Quantity: 60 {Tablet} Refills: 0 Ordered: 20-Jun-2020 Start : 20-Jun-2020 End : 24-Jul-2011 Active Start: 06-20-2020 End: 07-24-2011 take 1 tablet by mouth twice daily Lopressor 50 MG Oral Tablet 1 (one) Tablet bid for 0 days Quantity: 60 {Tablet} Refills: 0 Ordered: 20-Jun-2020 Start : 20-Jun-2020 End : 24-Jul-2011 Active Start: 05-23-2020 End: 07-24-2011 take 1 tablet by mouth twice daily Lopressor 50 MG Oral Tablet 1 (one) Tablet bid for 0 days Quantity: 60 {Tablet} Refills: 0 Ordered: 23-May-2020 Start : 23-May-2020 End : 24-Jul-2011 Active Start: 04-25-2020 End: 07-24-2011 take 1 tablet by mouth twice daily Lopressor 50 MG Oral Tablet 1 (one) Tablet bid for 0 days Quantity: 60 {Tablet} Refills: 0 Ordered: 25-Apr-2020 Keke Mike CMA Start : 25-Apr-2020 End : 24-Jul-2011 Active Start: 04-25-2020 End: 07-24-2011 take 1 tablet by mouth twice daily Lopressor 50 MG Oral Tablet 1 (one) Tablet bid for 0 days Quantity: 60 {Tablet} Refills: 0 Ordered: 25-Apr-2020 Keke Mike CMA Start : 25-Apr-2020 End : 24-Jul-2011 Active Start: 04-25-2020 End: 07-24-2011 take 1 tablet by mouth twice daily Lopressor 50 MG Oral Tablet 1 (one) Tablet bid for 0 days Quantity: 60 {Tablet} Refills: 0 Ordered: 25-Apr-2020 Keke Mike CMA Start : 25-Apr-2020 End : 24-Jul-2011 Active Start: 04-25-2020 End: 07-24-2011 take 1 tablet by mouth twice daily Lopressor 50 MG Oral Tablet 1 (one) Tablet bid for 0 days Quantity: 60 {Tablet} Refills: 0 Ordered: 25-Apr-2020 Keke Mike CMA Start : 25-Apr-2020 End : 24-Jul-2011 Active Start: 04-25-2020 End: 07-24-2011 take 1 tablet by mouth twice daily Lopressor 50 MG Oral Tablet 1 (one) Tablet bid for 0 days Quantity: 60 {Tablet} Refills: 0 Ordered: 25-Apr-2020 Keke Mike CMA Start : 25-Apr-2020 End : 24-Jul-2011 Active Start: 03-28-2020 End: 07-24-2011 take 1 tablet by mouth twice daily Lopressor 50 MG Oral Tablet 1 (one) Tablet bid for 0 days Quantity: 60 {Tablet} Refills: 0 Ordered: 28-Mar-2020 Keke Mike CMA Start : 28-Mar-2020 End : 24-Jul-2011 Active Start: 03-28-2020 End: 07-24-2011 take 1 tablet by mouth twice daily Lopressor 50 MG Oral Tablet 1 (one) Tablet bid for 0 days Quantity: 60 {Tablet} Refills: 0 Ordered: 28-Mar-2020 Keke Mike CMA Start : 28-Mar-2020 End : 24-Jul-2011 Active Start: 03-28-2020 End: 07-24-2011 take 1 tablet by mouth twice daily Lopressor 50 MG Oral Tablet 1 (one) Tablet bid for 0 days Quantity: 60 {Tablet} Refills: 0 Ordered: 28-Mar-2020 Keke Mike CMA Start : 28-Mar-2020 End : 24-Jul-2011 Active Start: 11-02-2019 End: 02-06-2022 take 1 tablet by mouth once daily Metoprolol Succinate 50 mg tablet extended release 24 hr Discontinued 50 mg PO DAILY November 02, 2019 12:00am February 06, 2022 4:32pm Start: 04-02-2019 End: 07-24-2011 take 1 tablet by mouth twice daily Lopressor 50 MG Oral Tablet 1 (one) Tablet bid for 0 days Quantity: 60 {Tablet} Refills: 3 Ordered: 02-Apr-2019 Catherine Garcia DO, DO, Kathleen Start : 02-Apr-2019 End : 24-Jul-2011 Active Start: 04-02-2019 End: 07-24-2011 take 1 tablet by mouth twice daily Lopressor 50 MG Oral Tablet 1 (one) Tablet bid for 0 days Quantity: 60 {Tablet} Refills: 3 Ordered: 02-Apr-2019 Catherine Garcia DO, DO, Kathleen Start : 02-Apr-2019 End : 24-Jul-2011 Active Start: 04-02-2019 End: 07-24-2011 take 1 tablet by mouth twice daily Lopressor 50 MG Oral Tablet 1 (one) Tablet bid for 0 days Quantity: 60 {Tablet} Refills: 3 Ordered: 02-Apr-2019 Catherine Garcia DO, DO, Kathleen Start : 02-Apr-2019 End : 24-Jul-2011 Active Start: 04-02-2019 End: 07-24-2011 take 1 tablet by mouth twice daily Lopressor 50 MG Oral Tablet 1 (one) Tablet bid for 0 days Quantity: 60 {Tablet} Refills: 3 Ordered: 02-Apr-2019 Catherine Garcia DO, DO, Kathleen Start : 02-Apr-2019 End : 24-Jul-2011 Active Start: 04-02-2019 End: 07-24-2011 take 1 tablet by mouth twice daily Lopressor 50 MG Oral Tablet 1 (one) Tablet bid for 0 days Quantity: 60 {Tablet} Refills: 3 Ordered: 02-Apr-2019 Catherine Garcia DO, DO, Kathleen Start : 02-Apr-2019 End : 24-Jul-2011 Active Start: 04-02-2019 End: 07-24-2011 take 1 tablet by mouth twice daily Lopressor 50 MG Oral Tablet 1 (one) Tablet bid for 0 days Quantity: 60 {Tablet} Refills: 3 Ordered: 02-Apr-2019 Catherine Garcia DO, DO, Kathleen Start : 02-Apr-2019 End : 24-Jul-2011 Active Start: 04-02-2019 End: 07-24-2011 take 1 tablet by mouth twice daily Lopressor 50 MG Oral Tablet 1 (one) Tablet bid for 0 days Quantity: 60 {Tablet} Refills: 3 Ordered: 02-Apr-2019 Catherine Garcia DO, DO, Kathleen Start : 02-Apr-2019 End : 24-Jul-2011 Active Start: 04-02-2019 End: 07-24-2011 take 1 tablet by mouth twice daily Lopressor 50 MG Oral Tablet 1 (one) Tablet bid for 0 days Quantity: 60 {Tablet} Refills: 3 Ordered: 02-Apr-2019 JoseCatherine parker DO, DO, Kathleen Start : 02-Apr-2019 End : 24-Jul-2011 Active Start: 04-02-2019 End: 07-24-2011 take 1 tablet by mouth twice daily Lopressor 50 MG Oral Tablet 1 (one) Tablet bid for 0 days Quantity: 60 {Tablet} Refills: 3 Ordered: 02-Apr-2019 Jose Catherine APARICIO DO, Kathleen Start : 02-Apr-2019 End : 24-Jul-2011 Active Start: 04-02-2019 End: 07-24-2011 take 1 tablet by mouth twice daily Lopressor 50 MG Oral Tablet 1 (one) Tablet bid for 0 days Quantity: 60 {Tablet} Refills: 3 Ordered: 02-Apr-2019 JoseCatherine parker DO, DO, Kathleen Start : 02-Apr-2019 End : 24-Jul-2011 Active Start: 04-02-2019 End: 07-24-2011 take 1 tablet by mouth twice daily Lopressor 50 MG Oral Tablet 1 (one) Tablet bid for 0 days Quantity: 60 {Tablet} Refills: 3 Ordered: 02-Apr-2019 Jose Catherine APARICIO DO, Kathleen Start : 02-Apr-2019 End : 24-Jul-2011 Active Start: 04-02-2019 End: 07-24-2011 take 1 tablet by mouth twice daily Lopressor 50 MG Oral Tablet 1 (one) Tablet bid for 0 days Quantity: 60 {Tablet} Refills: 3 Ordered: 02-Apr-2019 Jose Catherine APARICIO DO, Kathleen Start : 02-Apr-2019 End : 24-Jul-2011 Active Start: 03-30-2015 End: 06-24-2020 take 1 tablet by mouth once daily Metoprolol Succinate 25 MG tablet Discontinued 25 mg PO DAILY April 14, 2015 12:00am November 02, 2019 4:08pm Start: 07-23-2011 End: 07-24-2011 take 1 tablet by mouth twice daily LOPRESSOR, 50MG (Oral Tablet) 1 (one) Tablet bid for 0 days Quantity: 60 {Tablet} Refills: 3 Ordered: 24-Jul-2011 Start : 23-Jul-2011 End : 24-Jul-2011 Inactive Vitamin C 500 mg oral tablet (1 source) Start: 09-26-2022 Vitamin C 500 mg oral tablet Dose : 500 mg = 1 tab(s), Oral, qDay, 0 Refill(s) Start Date: 05/21/22 Status: Ordered Vitamin D3 (1 source) Start: 05-21-2022 Vitamin D3 qDa y, 0 Refill(s) Start Date: 05/21/22 Status: Ordered Vitamin E (1 source) Start: 05-21-2022 vitamin E Oral , qDay, 0 Refill(s) Start Date: 05/21/22 Status: Ordered Completed/Discontinued Medications Medication Drug Class(es) Dates Sig (Normalized) Sig (Original) acetaminophen 325 mg / chlorpheniramine maleate 2 mg oral tablet (20 sources) Histamine-1 Receptor Antagonist Start: 07-13-2008 End: 01-12-2009 Start: 07-13-2008 End: 01-12-2009 take 1 tablet by mouth once daily CORICIDIN HBP COLD/FLU, 2-325MG (Oral Tablet) 1 (one) Tablet daily for 0 days Refills: 0 Ordered: 13-Jul-2008 Lolita Stephenson Start : 13-Jul-2008 End : 12-Jan-2009 Discontinued acetaminophen 325 mg / HYDROcodone bitartrate 5 mg oral tablet (3 sources) Opioid Agonist Start: 05-20-2020 End: 05-25-2020 Hydrocodone-Acetaminophen 1 EACH tablet Discontinued 1 NMA PO EVERY 4 HOURS NEEDED as needed for Pain Score 1-10/10 14 5 0 May 20, 2020 May 24, 2020 12:00am May 25, 2020 12:02am Personal history of urinary calculi Start: 05-20-2020 End: 05-25-2020 Hydrocodone-Acetaminophen Di scontinued 1 EACH PO EVERY 4 HOURS NEEDED 14 5 May 20, 2020 May 25, 2020 12:02am albuterol 0.83 mg/ml inhalat ion solution (20 sources) beta2-Adrenergic Agonist Start: 07-14-2019 End: 06-24-2020 Start: 07-14-2019 End: 06-24-2020 Start: 07-14-2019 End: 06-24-2020 take 2 puff(s) by inhalation three times daily ProAir HFA 108 (90 Base) MCG/ACT Inhalation Aerosol Solution 2 (two) Puff tid for 0 days Quantity: 1 {Inhaler} Refills: 0 Ordered: 24-Jun-2020 GravKeke snell CMA Start : 14-Jul-2019 End : 24-Jun-2020 Inactive Start: 11-04-2012 End: 05-25-2014 Start: 11-04-2012 End: 05-25-2014 PROVENTIL HFA, 108 (90 Base)MCG/ACT (Inhalation Aerosol Solution) 1 or 2 puffs Aerosol Soln q 6hours prn for 0 days Quantity: 1 {Aerosol_Soln} Refills: 1 Ordered: 25-May-2014 Denisse Alvarado RN Start : 04-Nov-2012 End : 25-May-2014 Inactive Comments: called to [facility] 11-04-12 quyenssell Start: 02-08-2009 End: 04-24-2012 ALBUTEROL SULFATE, (2.5 MG/3ML)0.083% (Inhalation Nebulization Solution) 1 Nebulized Soln 1-2 puffs q 6h for 0 days Quantity: 1 {Nebulized_Soln} Refills: 0 Ordered: 24-Apr-2012 Denisse Alvarado SHOE SALESMAN Start : 08-Feb-2009 End : 24-Apr-2012 Inactive Comment on above: called to [facility]04-12 [facility] amLODIPine 5 mg oral tablet (20 sources) Dihydropyridine Calcium Channel Mackenzie Start: 05-25-2014 End: 12-07-2014 amoxicillin 875 mg / clavulanate 125 mg oral tablet (20 sources) Penicillin-class Antibacterial Start: 11-27-2018 End: 12-07-2018 Start: 11-27-2018 End: 12-07-2018 take 1 tablet by mouth twice daily at mealtime Augmentin 875-125 MG Oral Tablet 1 Tablet bid for 10 days Quantity: 20 {Tablet} Refills: 0 Ordered: 27-Nov-2018 Chanelle Bailey MD Start : 27-Nov-2018 End : 07-Dec-2018 Inactive Comments: Take with food Comment on above: Take with food ascorbic acid 250 mg oral tablet (20 sources) Vitamin C Start: 01-09-2022 End: 03-13-2022 take 1 tablet by mouth once daily Ascorbic Acid (Vitamin C) 250 mg tablet Discontinued 250 mg PO DAILY January 09, 2022 12:00am March 13, 2022 3:18pm Start: 10-17-2017 End: 09-08-2018 take 1 tablet by mouth once daily Ascorbic Acid (Vitamin C) 500 mg tablet Discontinued 500 mg PO daily October 17, 2017 1:00am September 08, 2018 2:41pm Start: 04-22-2017 take 1 tablet by suyapa once daily VITAMIN C 500 MG TABS One tablet by mouth daily ASCORBIC ACID [id number] Ranjith Dueñas MD azithromycin 250 mg oral tab let (20 sources) Macrolide Antimicrobial Start: 02-13-2023 Start: 05-21-2022 End: 05-25-2022 azithromycin 250 mg oral tab let Take two (2) tablets day 1-then one (1) tablet, Oral, Daily, # 6 tab(s), 0 Refill(s) Start Date: 05/21/22 Stop Date: 05/25/22 Status: Ordered Start: 05-15-2022 End: 07-30-2022 Start: 07-14-2019 End: 06-24-2020 Start: 11-05-2017 End: 11-14-2017 Zithromax Z-Kaiser 250 MG Oral Tablet 1 Tablet TAD for 0 days Quantity: 1 {Tablet} Refills: 0 Ordered: 14-Nov-2017 Josselin Sanchez Start : 05-Nov-2017 End : 14-Nov-2017 Discontinued Cetirizine (20 sources) Histamine-1 Receptor Antagonist Cetirizine Hydrochloride 10mg 1 tab PRN Inactive ciprofloxacin 500 mg oral tablet (20 sources) Quinolone Antimicrobial Start: 05-20-20 End: 01-10-20 take 1 tablet by mouth twice daily Ciprofloxacin Hcl 500 MG tablet Discontinued 500 mg PO TWICE A DAY 6 0 May 20, 2020 12:00am January 09, 2022 1:11pm Personal history of urinary calculi Start: 11-27-2018 End: 04-30-2019 Start: 11-27-2018 End: 04-30-2019 take 2 drop(s) into the eye(s) four times daily Ciprofloxacin HCl 0.3 % Ophthalmic Solution 2 (two) Drop(s) QID in right ear for 0 days Quantity: 1 {Bottle} Refills: 0 Ordered: 30-Apr-2019 Florentino Sanchez LPN Start : 27-Nov-2018 End : 30-Apr-2019 Inactive citalopram 20 mg oral tablet (17 sources) Serotonin Reuptake Inhibitor Start: 03-30-2015 End: 06-04-2024 take 1 tablet by mouth once daily Citalopram 20 MG tablet Discontinued 20 mg PO DAILY April 14, 2015 12:00am June 04, 2024 8:36am 24 hr clarithromycin 500 mg extended release oral tablet (20 sources) Macrolide Antimicrobial Start: 02-08-2009 End: 02-18-2009 Start: 02-08-2009 End: 02-18-2009 take 2 tablets by mouth once daily BIAXIN XL PAC, 500MG (Oral Tablet Extended Release 24 Hour) 2 (two) Tablet ER 24HR daily for 10 days Quantity: 20 {Tablet_ER_24HR} Refills: 0 Ordered: 08-Feb-2009 Amiriver SUSANSuzanne Start : 08-Feb-2009 End : 18-Feb-2009 Inactive Start: 02-08-2009 End: 02-18-2009 take 2 tablets by mouth once daily BIAXIN XL PAC, 500MG (Oral Tablet Extended Release 24 Hour) 2 (two) Tablet ER 24HR daily for 10 days Quantity: 20 {Tablet_ER_24HR} Refills: 0 Ordered: 08-Feb-2009 Ivett DAVISSuzanne Start : 08-Feb-2009 End : 18-Feb-2009 Inactive clopidogrel 75 mg oral tablet (6 sources) P2Y12 Platelet Inhibitor Start: 09-19-2018 End: 10-22-2018 take 1 tablet by mouth once daily Clopidogrel 75 mg tablet Discontinued 75 mg PO DAILY 30 October 08, 2018 10:54am October 22, 2018 9:44am clotrimazole 10 mg oral lozenge (20 sources) Azole Antifungal Start: 11-05-2017 End: 11-15-2017 Start: 06-05-2013 End: 06-19-2013 codeine phosphate 2 mg/ml / guaiFENesin 20 mg/ml oral solution (20 sources) Opioid Agonist Start: 06-05-2013 End: 11-04-2013 CHERATUSSIN AC, 100-10MG/5ML (Oral Syrup) 1 Teaspoon(s) q6-8 hrs prn for cough for 0 days Quantity: 6 {Ounce(s)} Refills: 0 Ordered: 04-Nov-2013 Denisse Alvarado RN Start : 05-Jun-2013 End : 04-Nov-2013 Inactive Start: 01-12-2009 End: 11-04-2013 Start: 01-12-2009 GUAIATUSSIN AC , 100-10MG/5ML (Oral Syrup) 1 Syrup 1tsp qhs for 0 days Quantity: 6 {Syrup} Refills: 0 Ordered: 13-Sep-2009 Denisse Alvarado RN Start : 12-Jan-2009 Inactive colchicine 0.6 mg oral capsule (10 sources) Start: 10-17-2017 End: 10-23-2017 take 1 tablet by mouth once daily Colchicine 0.6 mg capsule Discontinued 0 PO daily October 17, 2017 1:00am October 23, 2017 3:40pm 0.6 MG, 2 Tablets PO QDAY Start: 04-22-2017 take 2 tablets by mo uth once daily COLCHICINE 0.6 MG CAPS Two tablets by mouth daily COLCHICINE [id number] Ranjith Dueñas MD [id number] 2 (Bio-Immunex) 500 mg capsule (1 source) Start: 06-04-2024 End: 12-21-2024 take 1 capsule by mouth once daily Balfyssqd-Jqavmser-Iaor-Hb112 (Bio-Immunex) 500 mg capsule Discontinued NMA PO daily June 04, 2024 12:00am December 21, 2024 1:56pm dexlansoprazole 60 mg delaye d release oral capsule (20 sources) Proton Pump Inhibi tor Start: 09-13-2009 End: 09-28-2009 ergocalciferol 1.25 mg oral capsule (20 sources) Provit wetzel D2 Compou nd Start: 05-12-2012 End: 11-03-2012 Start: 05-12-2012 End: 11-03-2012 take 1 capsule by mouth every week ERGOCALCIFEROL, [id number] (Oral Capsule) 1 Capsule weekly for 0 days Quantity: 12 {Capsule} Refills: 3 Ordered: 03-Nov-2012 Denisse Alvarado RN Start : 12-May-2012 End : 03-Nov-2012 Inactive 12 hr fexofenadine hydrochloride 60 mg / pseudoephedrine hydrochloride 120 mg extended release oral tablet (20 sources) alpha-Adrenergic Agonist, Histamine-1 Receptor Antagonist Start: 01-10-2009 End: 02-08-2009 Start: 01-10-2009 End: 02-08-2009 take 60-120 mg by mouth twice daily ANITA-D 12 HOUR, 60-120MG (Oral Tablet Extended Release 12 Hour) 1 (one) Tablet ER 12HR bid for 0 days Refills: 0 Ordered: 10-Jan-2009 Lolita Stephenson Start : 10-Jan-2009 End : 08-Feb-2009 Discontinued 12 hr guaiFENesin 600 mg ext ended release oral tablet (20 sources) Start: 07-14-2019 End: 06-24-2020 hydroCHLOROthiazide 25 mg / lisinopril 20 mg oral tablet (20 sources) Thiazide Diuretic, Angiotensin Converting Enzyme Inhibitor Start: 04-17-2018 End: 04-17-2018 Start: 04-17-2018 End: 04-17-2018 take 0.5 tablet by mouth once daily Lisinopril-Hydrochlorothiazide 20-25 MG Oral Tablet 1/2 Tablet qd for 30 days Quantity: 30 {Tablet} Refills: 3 Ordered: 17-Apr-2018 Catherine Garcia DO, DO, Kathleen Start : 17-Apr-2018 End : 17-Apr-2018 Discontinued levoFLOXacin 500 mg oral tab let (20 sources) Quinolone Antimicrobial Start: 09-20-2009 End: 09-30-2009 lisinopril 10 mg oral tablet (20 sources) Angiotensin Converting Enzyme Inhibitor Start: 04-17-2018 End: 12-28-2021 Start: 03-31-2015 End: 02-24-2019 take 1 tablet by mouth once daily Lisinopril 5 MG tablet Discontinued 5 mg PO DAILY 30 November 05, 2017 3:19pm February 24, 2019 1:06pm methylPREDNISolone 4 mg oral tablet (17 sources) Corticosteroid Start: 07-03-2021 End: 11-15-2021 mupirocin 0.02 mg/mg nasal ointment (20 sources) RNA Synthetase Inhibitor Antibacterial Start: 08-09-2009 End: 08-14-2009 nebivolol 5 mg oral tablet (20 sources) End: 11-01-2008 nitroglycerin 0.4 mg sublingual tablet (20 sources) Nitrate Vasodilator Start: 03-30-2015 End: 11-02-2019 Nitroglycerin 0.4 MG tablet Discontinued 0.4 mg SL Q5M as needed for Chest Pain April 14, 2015 12:00am November 02, 2019 4:32pm pravastatin sodium 20 mg oral tablet (6 sources) HMG-CoA Reductase Inhibitor Start: 05-13-2020 End: 01-09-2022 take 1 tablet by mouth at bedtime Pravastatin 20 mg tablet Discontinued 20 mg PO AT BEDTIME 90 3 October 17, 2020 1:07pm January 09, 2022 1:09pm predniSONE 10 mg oral tablet (20 sources) Start: 07-11-2021 End: 11-15-2021 Start: 02-08-2009 Start: 02-08-2009 PREDNISONE, 20 MG (Oral Tablet) 1 Tablet TAD for 0 days Quantity: 20 {Tablet} Refills: 0 Ordered: 13-Sep-2009 Denisse Alvarado RN Start : 08-Feb-2009 Inactive Comments: Take 2 for 5 days, 1 for 5 days, 1/2 for 5 days Comment on above: Take 2 for 5 days, 1 for 5 days, 1/2 for 5 days sulfamethoxazole 800 mg / trimethoprim 160 mg oral tablet (20 sources) Dihydrofolate Reductase Inhibitor Antibacterial, Sulfonamide Antimicrobial Start: 08-03-2009 Start: 08-03-2009 take 1 tablet by suyapa twice daily BACTRIM DS, 800-160MG (Oral Tablet) 1 (one) Tablet bid for 0 days Quantity: 20 {Tablet} Refills: 0 Ordered: 13-Sep-2009 Denisse Alvarado RN Start : 03-Aug-2009 Inactive thiamine 100 mg oral tablet (3 sources) Start: 11-02-2019 End: 01-09-2022 take 1 tablet by mouth once daily Thiamine Hcl (Vitamin B1) 100 mg tablet Discontinued 100 mg PO DAILY November 02, 2019 12:00am January 09, 2022 1:11pm ticagrelor 90 mg oral tablet (20 sources) Start: 03-21-2015 End: 10-23-2017 take 1 tablet by mouth twice daily Ticagrelor 90 MG tablet Discontinued 90 mg PO TWICE A DAY April 14, 2015 12:00am October 23, 2017 3:41pm Tyrosine-Acetylcystein e (Adrenamax) 400-133 mg capsule (1 source) Start: 06-04-2024 End: 12-21-2024 take 1 capsule by mouth once daily Tyrosine-Acetylcysteine (Adrenamax) 400-133 mg capsule Discontinued NMA PO daily June 04, 2024 12:00am December 21, 2024 1:56pm Vitamin B Complex (11 sources) Vitamin B Complex Oral Tablet (20 sources) Vitamin B Comple x Oral Tablet Active vitamin b6 100 mg oral tablet (3 sources) Start: 01-09-2022 End: 03-13-2022 take 1 tablet by mouth once daily Pyridoxine (Vitamin B6) 100 mg tablet Discontinued 100 mg PO DAILY January 09, 2022 12:00am March 13, 2022 3:19pm Vitamins B Complex (8 sources) (7 sources) Problems Active Problems Problem Classification Problem Date Documented Date Episodic/Chronic Abdominal hernia (1 source) Right inguinal hernia ; Translations: [Unilateral inguinal hernia, without obstruction or gangrene, not specified as recurrent] 12-21-2024 Episodic Abdominal pain (20 sources) Epigastric pain; Translations: [Left upper quadrant pain] Resolved: 11-03-2012 07-12-2015 Episodic Acute myocardial infarction (10 sources) Myocardial infarction; Translations: [Acute myocardial infarction, unspecified] Onset: 03-30-2015 03-30-2015 Chronic Anxiety disorders (20 sources) Anxiety; Translations: [Anxiety] 11-27-2018 Chronic Asthma (20 sources) Asthma; Translations: [Acute exacerbation of asthma] Resolved: 12-07-2014 07-12-2015 Chronic Asthma (20 sources) Asthma Calculus of urinary tract (3 sources) Ureteric stone; Translations: [Calculus of ureter] 05-20-2020 Episodic Chronic obstructive pulmonary disease and bronchiectasis (20 sources) Emphysematous bleb; Translations: [Emphysematous bleb] Resolved: 12-07-2014 03-21-2015 Chronic Chronic obstructive pulmonary disease and bronchiectasis (20 sources) Bronchitis; Translations: [Bronchitis] Resolved: 11-04-2013 05-31-2015 Episodic Chronic obstructive pulmonary disease and bronchiectasis (20 sources) Chronic obstructive pulmonary disease and bronchiectasis Conditions associated with dizziness or vertigo (20 sources) Dizziness; Translations: [Dizziness] Resolved: 03-21-2015 03-21-2015 Episodic Coronary atherosclerosis and other heart disease (20 sources) 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; Translations: [Coronary arteriosclerosis] Onset: 03-30-2015 03-30-2015 Chronic Comment on above: 2019- heart cath min dz stent doing well PTCA/JENNY to distal L CFX & OM, distal 60% stenosis mid-RCA not treated 03/15/15 Coronary atherosclerosis and other heart disease (16 sources) Coronary angioplasty status; Translations: [Stented coronary artery] Onset: 02-23-2015 03-30-2015 Episodic Comment on above: PTCA/JENNY to distal L CFX & OM, distal 60% stenosis mid-RCA not treated 03/15/15 Diabetes mellitus without complication (20 sources) Diabetes mellitus; Translations: [Controlled diabetes mellitus] Resolved: 12-19-2017 12-26-2017 Chronic Comment on above: such good control if haic stays great can make visit q 6mo Diabetes mellitus without complication (20 sources) Diabetes mellitus without complication Disorders of lipid metabolism (20 sources) Hyperlipidemia; Translations: [Hyperlipidemia] Onset: 03-30-2015 03-30-2015 Chronic Comment on above: on less statin less achy less tired - # still good Diverticulosis and diverticulitis (20 sources) Diverticulitis of gastrointestinal tract; Translations: [Diverticulitis] Resolved: 10-17-2009 11-03-2012 Chronic Comment on above: new dx Essential hypertension (20 sources) Hypertensive disorder; Translations: [Malignant essential hypertension] Onset: 03-30-2015 Resolved: 04-05-2016 03-30-2015 Chronic Genitourinary symptoms and ill-defined conditions (20 sources) Microscopic hematuria; Translations: [Hematuria, microscopic] 11-27-2018 Episodic Heart valve disorders (16 sources) Mitral valve disorder; Translations: [Non-rheumatic mitral valve disease] Onset: 03-30-2015 03-30-2015 Chronic Hypertension with complications and secondary hypertension (20 sources) Hypertensive heart disease without heart failure; Translations: [Hypertensive heart disease without congestive heart failure] 11-27-2018 Chronic Comment on above: MD March 17 kamilla nts-- mild elevation adn progression -- did dose adj at 12/11 ov Immunizations and screening for infectious disease (20 sources) Need for prophylactic vaccination and inoculation against influenza; Translations: [Need for prophylactic vaccination and inoculation against other specified disease] Resolved: 09-26-2015 06-12-2018 Episodic Inflammation; infection of eye (except that caused by tuberculosis or sexually transmitteddisease) (20 sources) Serous conjunctivitis; Translations: [Serous conjunctivitis, unspecified laterality] Resolved: 02-02-2009 07-15-2015 Episodic Malaise and fatigue (20 sources) Malaise and fatigue; Translations: [Other fatigue] Resolved: 08-28-2018 11-04-2013 Episodic Comment on above: will ck lab and do m id afternoon snack adn chg diet and see how feesl Mycoses (20 sources) Candidiasis; Translations: [Candidiasis of mouth] Resolved: 12-19-2017 03-21-2015 Episodic Nonspecific chest pain (3 sources) Chest pain; Translations: [Chest pain, unspecified] 10-08-2018 Episodic Nutritional deficiencies (20 sources) Vitamin D deficiency; Translations: [Vitamin D deficiency, unspecified] 11-27-2018 Chronic Comment on above: pt taking supplement now - Nutritional deficiencies (20 sources) Vitamin B12 deficiency (non anemic); Translations: [Cobalamin deficiency] 11-27-2018 Episodic Comment on above: went to oral Other aftercare (20 sources) Drug therapy finding; Translations: [Anticoagulated] 12-15-2020 Episodic Other and unspecified benign neoplasm (20 sources) Polyp of colon; Translations: [Sessile colonic polyp] 12-28-2021 Episodic Other circulatory disease (20 sources) Other specified symptoms and signs involving the circulatory and respiratory systems; Translations: [Abnormal chest sounds] Resolved: 12-07-2014 07-12-2015 Episodic Other diseases of kidney and ureters (20 sources) Renal mass; Translations: [Renal mass, left] 12-15-2020 Chronic Other diseases of kidney and ureters (20 sources) Renal mass; Translations: [Renal mass, left] 11-27-2018 Episodic Comment on above: benign -- urology ck yraly Other ear and sense organ disorders (20 sources) Hearing loss; Translations: [Hearing loss] 12-23-2018 Chronic Other ear and sense organ disorders (5 sources) Hearing loss of right ear; Translations: [Hearing loss of right ear due to cerumen impaction] 06-24-2020 Chronic Other ear and sense organ disorders (20 sources) Otalgia, right ear; Translations: [Otalgia of right ear] Resolved: 06-11-2019 12-19-2017 Episodic Other ear and sense organ disorders (20 sources) Excessive cerumen in ear canal ; Translations: [Ceruminosis, right (Renamed from Excessive cerumen in ear canal, right)] Resolved: 07-30-2022 12-19-2017 Episodic Other ear and sense organ disorders (20 sources) Hearing loss of right ear; Translations: [Hearing loss of right ear due to cerumen impaction] 12-15-2020 Episodic Other eye disorders (1 source) Blepharochalasis right upper eyelid; Translations: [Blepharochalasis of both upper eyelids] 08-27-2024 Episodic Other lower respiratory disease (20 sources) Cough; Translations: [Cough] Resolved: 11-27-2017 03-21-2015 Episodic Other lower respiratory disease (20 sources) Dyspnea; Translations: [SOB (shortness of breath)] Resolved: 12-19-2017 12-19-2017 Episodic Comment on above: Wants to do Spiromet ry on his next OV with Dr. Garcia 11/27. Other lower respiratory disease (20 sources) Nonspecific abnormal findings on radiological and other examination of lung field; Translations: [Abnormal CXR] Resolved: 12-07-2014 03-21-2015 Episodic Other lower respiratory disease (20 sources) Postviral cough; Translations: [Post-viral cough syndrome] 07-14-2019 Episodic Other non-epithelial cancer of skin (20 sources) Carcinoma in situ of skin; Translations: [Carcinoma in situ of skin, unspecified] Resolved: 11-03-2012 08-03-2015 Episodic Other non-traumatic joint disorders (20 sources) Pain in elbow; Translations: [Elbow pain, right] 07-14-2019 Episodic Comment on above: use elbow strap and if not improving return to get referal elsewhere. Other nutritional; endocrine; and metabolic disorders (20 sources) Cholesterol level - finding; Translations: [Low HDL (under 40)] Resolved: 12-07-2014 07-11-2015 Chronic Other nutritional; endocrine; and metabolic disorders (20 sources) Body mass index 25-29 - overweight; Translations: [BMI 27.0-27.9,adult] 07-17-2016 Chronic Other nutritional; endocrine; and metabolic disorders (20 sources) Body mass index 25-29 - overweight; Translations: [BMI 26.0-26.9,adult] 12-23-2018 Episodic Other nutritional; endocrine; and metabolic disorders (20 sources) Overweight in adulthood with body mass index of 25 or more but less than 30; Translations: [BMI 26.0-26.9,adult] 05-15-2022 Episodic Other screening for suspected conditions (not mental disorders or infectious disease) (20 sources) Imaging of thorax abnormal; Translations: [Abnormal chest x-ray] Resolved: 12-07-2014 07-13-2015 Chronic Other screening for suspected conditions (not mental disorders or infectious disease) (20 sources) Imaging of thorax abnormal; Translations: [Abnormal findings on diagnostic imaging of other abdominal regions, including retroperitoneum] Onset: 11-18-2023 Resolved: 12-07-2014 07-13-2015 Episodic Comment on above: low platelets Other skin disorders (20 sources) Folliculitis; Translations: [Folliculitis] Resolved: 2012 07-15-2015 Episodic Other skin disorders (20 sources) Eruption; Translations: [Rash] 07-11-2021 Episodic Other upper respiratory disease (20 sources) Allergic rhinitis; Translations: [Allergic rhinitis due to other allergen] 12-15-2020 Chronic Other upper respiratory disease (20 sources) Nasal congestion; Translations: [Other diseases of nasal cavity and sinuses] Resolved: 12-07-2014 03-21-2015 Episodic Comment on above: mucinex Other upper respiratory disease (20 sources) Nasal discharge; Translations: [Nasal drainage] Resolved: 12-19-2017 12-19-2017 Episodic Other upper respiratory disease (20 sources) Other diseases of nasal cavity and sinuses; Translations: [Nasal Congestion] Resolved: 02-07-2009 11-03-2012 Episodic Other upper respiratory infections (20 sources) Upper respiratory infection; Translations: [Acute sinusitis] Resolved: 02-07-2009 11-27-2018 Episodic Otitis media and related conditions (20 sources) Otitis media, unspecified, left ear; Translations: [Otitis media of left ear] Resolved: 06-11-2019 11-27-2018 Episodic Comment on above: getting better Pneumonia (except that caused by tuberculosis or sexually transmitted disease) (14 sources) Severe acute respiratory syndrome; Translations: [SARS (severe acute respiratory syndrome)] 07-30-2022 Episodic Residual codes; unclassified (20 sources) Generalized aches and pains; Translations: [Body aches] Resolved: 12-19-2017 12-19-2017 Episodic Residual codes; unclassified (20 sources) Needs influenza immunization; Translations: [Need for prophylactic vaccination and inoculation against influenza (Renamed from Need for immunization against influenza)] Resolved: 09-26-2015 11-27-2018 Episodic Comment on above: Lot:[id number]:02/23/16 Amt:0.5mlRoute:IMSite: L DltdGiven By: ERLIN Call signed Residual codes; unclassified (20 sources) Requires varicella vaccination; Translations: [Need for zoster vaccination] 06-12-2018 Episodic Residual codes; unclassified (20 sources) Current non-smoker ; Translations: [Current nonsmoker] 06-12-2018 Episodic Residual codes; unclassified (20 sources) Non-smoker; Translations: [Nonsmoker] 07-17-2016 Episodic Substance-related disorders (20 sources) Smoker; Translations: [Smoker] Resolved: 09-26-2015 11-27-2018 Chronic Comment on above: social smoker, only on the weekends will have 1-2 Thyroid disorders (20 sources) Non-toxic uninodular goiter; Translations: [Thyroid nodule] 11-27-2018 Chronic Unclassified (4 sources) Long-term drug therapy; Translations: [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] Onset: 03-30-2015 03-30-2015 Unclassified (20 sources) Low HDL (272.5) Unclassified (20 sources) Unclassified (20 sources) Current non-smoker ; Translations: [Current nonsmoker] 06-12-2018 Unclassified (20 sources) Abnormal CT of Abdomen(794.9) Unclassified (20 sources) Non-smoker; Translations: [Nonsmoker] 07-17-2016 Unclassified (20 sources) Abnormal CXR (793.1) Unclassified (20 sources) Foliculitis (704.8) Unclassified (20 sources) Abdominal Pain,LUQ (789.02) Unclassified (20 sources) HYPERTENSION, BENIGN ESSENTIAL (401.1) Unclassified (20 sources) Skin Cancer, Site Unspecified (232.9) Unclassified (20 sources) DEFICIENCY, VITAMIN D NOS (268.9) Unclassified (20 sources) Che infection of mouth (112.0) Unclassified (20 sources) Abnormal Lung Sounds/Rales (786.7) Unclassified (20 sources) BMI 27.0-27.9,adult Unclassified (20 sources) Non-smoker Unclassified (20 sources) CAD (coronary artery disease) Unclassified (20 sources) Hypertension, essential, benign Unclassified (20 sources) Need for zoster vaccination Unclassified (20 sources) BMI 26.0-26.9,adult Viral infection (20 sources) Viral disease; Translations: [Viral infection, unspecified] Resolved: 02-02-2009 07-11-2015 Episodic Past or Other Problems Problem Classification Problem Date Documented Date Episodic/Chronic Coronary atherosclerosis and other heart disease (20 sources) Coronary atherosclerosis and other heart disease Essential hypertension (20 sources) Essential hypertension Hemorrhoids (20 sources) Hemorrhoids; Translations: [Hemorrhoids] Resolved: 11-03-2012 06-07-2015 Episodic Other aftercare (3 sources) Other correction (current) drug therapy; Translations: [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] Onset: 03-30-2015 03-30-2015 Episodic Other ear and sense organ disorders (20 sources) Otalgia of right ear; Translations: [Otalgia, right] Resolved: 06-11-2019 12-19-2017 Other eye disorders (2 sources) Dermatochalasis of right lower eyelid; Translations: [Dermatochalasis of both lower eyelids] Onset: 12-15-2024 08-27-2024 Episodic Other eye disorders (1 source) Dermatochalasis of left lower eyelid; Translations: [Dermatochalasis of left lower eyelid] Onset: 12-15-2024 Episodic Other nutritional; endocrine; and metabolic disorders (14 sources) Body mass index (BMI) 28.0-28.9, adult; Translations: [Body Mass Index 27.0-27.9, adult] Onset: 03-31-2015 07-07-2015 Episodic Otitis media and related conditions (20 sources) Otitis media and related conditions; Translations: [Otitis media of left ear] Resolved: 06-11-2019 12-23-2018 Comment on above: getting better Residual codes; unclassified (7 sources) Family history of stroke; Translations: [Family history of stroke] 10-06-2015 Episodic Residual codes; unclassified (20 sources) Vaccination required; Translations: [Need for prophylactic vaccination and inoculation against other specified disease] Resolved: 03-21-2015 03-21-2015 Episodic Unclassified (20 sources) Patient encounter status; Translations: [Annual Medicare Phyiscal WITHOUT abnormal findings (Renamed from Encounter for general adult medical examination without abnormal findings)] Resolved: 12-19-2017 11-27-2018 Comment on above: 2-1-16 colonoscopy 6 -14 repeat in 5 years, PSA 3-12-14, all immunizations are up to date, told to get Prevnar 13 at local pharmacy, reviewed all tests and questions Unclassified (20 sources) Unspecified Diagnosis Resolved: 03-21-2015 03-21-2015 Unclassified (20 sources) Acute Conjuctivitis (372.01) Unclassified (20 sources) Screening status; Translations: [Encounter for screening for malignant neoplasm of colon (Renamed from Special screening for malignant neoplasms, colon)] 11-27-2018 Comment on above: last scope 2013 good for 10 yrs last scope 2017 good for 5yrs psa done by urology and up to date- loi last scope 2017 good for 5yrs/jabour Unclassified (20 sources) Abnormal Chest X-Ray (793.99) Unclassified (20 sources) Abdominal Pain,RUQ(789.01) Unclassified (20 sources) SCREENING FOR CANCER OF THE PROSTATE (V76.44) Unclassified (20 sources) Annual Medicare Physical (V70.0) Unclassified (20 sources) Abnormal Blood Chemistry (790.6) Unclassified (20 sources) Preprocedural examination done; Translations: [Preop examination] Resolved: 12-19-2017 03-21-2015 Unclassified (20 sources) Hematuria, microscopic Unclassified (20 sources) Renal mass, left Unclassified (20 sources) Screening for prostate cancer Unclassified (20 sources) Anticoagulated; Translations: [Drug therapy finding] 11-27-2018 Unclassified (20 sources) BMI 28.0-28.9,adult Unclassified (20 sources) Nasal drainage Unclassified (20 sources) Ceruminosis, bilateral (Renamed from Excessive cerumen in both ear canals) Unclassified (20 sources) Body aches Unclassified (20 sources) Otalgia, right Unclassified (20 sources) Ceruminosis, right (Renamed from Excessive cerumen in ear canal, right) Unclassified (20 sources) Annual Medicare Physical WITH abnormal findings (Renamed from Encounter for general adult medical examination with abnormal findings) Unclassified (20 sources) Hearing loss of right ear due to cerumen impaction Unclassified (20 sources) Ear pain, right Unclassified (20 sources) Post-viral cough syndrome Unclassified (20 sources) Elbow pain, right Unclassified (5 sources) Physical exam WITHOUT abnormal findings (Renamed from Encounter for routine adult health examination without abnormal findings) Results Test Name Value Interpretation Reference Range Facility Cardiology Visit Reporton Cardiology Visit Report [facility] [address] [place] [address] OFFICE VISIT Date of Service: 06/08/25 MR#: [id number] Acct: [id number] Name: RICKI BHARDWAJ Rep #: [id number] : 1945 Provider: DEVIN thompson Age/Sex: 80/M Location: [facility] Status: Signed HPI HPI History of Present Illness Details: RICKI BHARDWAJ, is a 80 year old white male who presents to the office today for a cardiovascular outpatient follow-up visit. He has a history of an acute inferolateral ST-T segment elevation myocardial infarction in February of 2015 with thrombectomy and stenting to his circumflex and OM. He also has a history of mitral valve disease, hypertension, and hyperlipidemia. He denies chest, arm, jaw, or neck discomfort. He denies palpitations. He denies bilateral lower extremity edema. He denies claudication. He denies shortness of breath with activity, shortness of breath at rest, orthopnea, or PND. He denies chronic cough. He denies significant, sudden weight gain. He denies lightheadedness, dizziness, near-syncope, or syncope. He denies blood in urine, blood in stool, or epistaxis. He denies fever with chills. He denies myalgia. He denies fatigue. His exercise level has remained stable via golfing and part-time work. Intake Vital Signs 06/04/24 08:34 06/08/25 07:12 Height 6 ft 5 ft 11 in Weight: 173 lb BMI 24.1 BP 133/81 H Pulse 61 Pulse Oximetry (%) 96 Intake Visit Reasons: 1 Y FU/PREV PFM PT Allergies No Known Allergies Allergy (Verified 12/21/24 13:56) Medications ???Medication ???Instructions ???Recorded ???Confirmed ???Type B-complex with vitamin C (Super B 1 tab PO DAILY 11/02/19 06/08/25 History Complex-Vitamin C tablet) cholecalciferol (vitamin D3) 25 25 mcg PO DAILY 11/02/19 06/08/25 History mcg (1,000 unit) tablet nitroglycerin 0.4 mg sublingual 0.4 mg sublingual Q5M PRN Chest 06/08/25 Rx tablet Pain #90 tabs atorvastatin 80 mg tablet 80 mg PO Q OTHER DAY 01/09/2205/26 History metoprolol succinate 50 mg 50 mg PO DAILY 06/06/23 06/08/25 H istory tablet,extended release 24 hr escitalopram oxalate 20 mg tablet 20 mg PO QDAY 06/04/24 06/08/25 H istory isosorbide mononitrate 30 mg 30 mg PO DAILY #90 tabs 12/21/24 1 Rx tablet,extended release 24 hr aspirin 81 mg tablet,delayed 81 mg PO QDAY #90 tabs 06/08/25 Rx release (Adult Aspirin Regimen) Ejection fraction %: 60 Have you fallen in the past year?: No PFSH Medical History (Updated 12/21/24 @ 13:55 by Poornima Santos LPN) Right inguinal hernia Cancer Cataracts, bilateral Skin cancer Pure hypercholesterolemia Chest pain Nonrheumatic mitral valve disorder Presence of stent in coronary artery ( 03/15/15) Essential hypertension Mitral valve disorder Myocardial infarction Hypertension 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 Surgical History Status post percutaneous transluminal coronary angioplasty ( 02/24/15) History of appendectomy Postsurgical percutaneous transluminal coronary angioplasty (PTCA) status Family History Father CVA (cerebral vascular accident) Mother Rheumatic fever FH: CABG (coronary artery bypass surgery) Social History Smoking Status: Current every day smoker alcohol intake: current alcohol intake frequency: a few times a week Alcohol type: beer substance use type: does not use caffeine: Yes Type: coffee Number of servings: 3 what type of physical activity do you participate in: none seatbelt use: always do you feel safe at home: Yes ROS Const Const: Negative for fatigue, weakness, headache(s) or frequent falls Eyes Eyes: Negative for blurry vision ENT ENT: Negative for headache(s), dizziness or Nosebleed/epistaxis Cardio Chest Pain: No Palpitations: No Edema: None Muscle aches with walking: None Resp Respiratory: Negative for SOB with activity, SOB at rest or SOB orthopnea SOB lying down GI GI: Negative nausea, vomiting, heartburn, bright, red blood in stools or black,tarry stools : Negative for hematuria Musc Musc: Negative for muscle aches/ myalgia Skin Skin: Negative non-healing lesions or rash Neuro Neuro: Negative for dizziness, lightheadedness, near syncope, syncope, frequent falls, headache(s), weakness or blurry vision Endo Endo: Negative for fatigue Allergy Allergy/Immunology: Negative for rash Cardiology Exam Const Appearance: cooperative, healthy appearing, comfortable and no acute distress Nutritional Appearance: average gurinder (more content not included)... Normal [facility] Surgery Visit Reporton 12-21 Surgery Visit Report [facility] [address] [place] [address] OFFICE VISIT Date of Service: 12/21/24 MR#: [id number] Acct: [id number] Name: RICKI BHARDWAJ Rep #: [id number] : 1945 Provider: Dr. Taiwo goodwin MD Age/Sex: 79/M Location: [facility] Status: Signed Intake Vital Signs 08/27/24 09:11 12/21/24 13:55 Height 5 ft 11 in 5 ft 11 in Weight: 179 lb 175 lb BMI 25.0 24.4 BP 152/81 H 156/60 H Blood Pressure Location Rt brachial Lt brachial Position Sitting Sitting Respiration 18 17 Pulse 87 72 Pulse Source Monitor Temp 97.9 F 97.3 F L Temp Source Oral Temporal Pulse Oximetry (%) 97 99 Oxygen Delivery Method room air room air Intake Visit Reasons: INGUINAL HERNIA Chief Complaint: right inguinal hernia Is patient in pain?: No Allergies No Known Allergies Allergy (Verified 12/21/24 13:56) Medications ???Medication ???Instructions ???Recorded ???Confirmed ???Type B-complex with vitamin C (Super B 1 tab PO DAILY 11/02/19 12/21/24 History Complex-Vitamin C tablet) cholecalciferol (vitamin D3) 25 25 mcg PO DAILY 11/02/19 12/21/24 History mcg (1,000 unit) tablet nitroglycerin 0.4 mg sublingual 0.4 mg sublingual Q5M PRN Chest 12/21/24 Rx tablet Pain #90 tabs atorvastatin 80 mg tablet 80 mg PO Q OTHER DAY 01/09/2211/25 History metoprolol succinate 50 mg 50 mg PO DAILY 06/06/23 12/21/24 H istory tablet,extended release 24 hr escitalopram oxalate 20 mg tablet 20 mg PO QDAY 06/04/24 12/21/24 H istory isosorbide mononitrate 30 mg 30 mg PO DAILY #90 tabs 12/21/24 0 12/21/24 Rx tablet,extended release 24 hr Have you fallen in the past year?: No PFSH Medical History (Updated 12/21/24 @ 13:55 by Poornima Santos LPN) Right inguinal hernia Cancer Cataracts, bilateral Skin cancer Pure hypercholesterolemia Chest pain Nonrheumatic mitral valve disorder Presence of stent in coronary artery ( 03/15/15) Essential hypertension Mitral valve disorder Myocardial infarction Hypertension 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 Surgical History Status post percutaneous transluminal coronary angioplasty ( 02/24/15) History of appendectomy Postsurgical percutaneous transluminal coronary angioplasty (PTCA) status Family History Father CVA (cerebral vascular accident) Mother Rheumatic fever FH: CABG (coronary artery bypass surgery) Social History Smoking Status: Current every day smoker alcohol intake: current alcohol intake frequency: a few times a week Alcohol type: beer substance use type: does not use caffeine: Yes Type: coffee Number of servings: 3 what type of physical activity do you participate in: none seatbelt use: always do you feel safe at home: Yes HPI HPI HPI: Patient is a 79-year-old male here for right inguinal hernia. Patient notes that has been there for a long time and it is bulging but is easily pushed back again and has not causing any pain ROS General General: Yes weight change; No appetite, fatigue, colon cancer, breast cancer or weakness HEENT HEENT: Yes eye surgery; No difficulty swallowing, eye injury, swollen glands or hoarseness Additional Details: cataract Endo Endocrine: No thyroid disease, diabetes mellitus, thyroid cancer, Hair loss, heat intolerance or cold intolerance Skin Skin: No rash or changing moles Musc Musculoskeletal: No back problems, arthritis, rheumatoid arthritis, gout or joint pain Cardio Cardiovascular: Yes heart attack and heart stent; No murmur, pacemaker, heart disease, atrial fibrillation, high blood pressure, palpitations, shortness of breath with exertion or chest pain Psych Psychiatric: No depression, anxiety or hearing voices Resp Respiratory: No shortness of breath, No sleep apnea, No cough, No COPD, No asthma, No emphysema and No wheezing Gastro Gastrointestinal: No abdominal pain, No nausea or vomiting, No diarrhea, No constipation, No blood in stool, No acid reflux, No hemorrhoids, No ulcers, No gallbladder problem and No black,tarry stools Nicola Hematologic: Yes blood thinners, No blood disorders, No bleeding, No anemia and No blood clots Additional Details: 81mg aspirin Neuro Neurologic: No numbness, No tingling and No weakness Exam Const General: cooperative Orientation: alert and oriented x3 HENMT Head: normal to inspection Neck Neck: normal visual inspection and full ROM Chest Chest palpation inspection: normal inspection of the chest Resp Effor (more content not included)... Normal [facility] Plastic Surgery Visit Report on 08-27-2024 Plastic Surgery Visit Report [facility] [address], [address] [place] [address] OFFICE VISIT Date of Service: 08/27/24 MR#: [id number] Acct: [id number] Name: RICKI BHARDWAJ Rep #: [id number] : 1945 Provider: Dr. Ricki Fournier MD Age/Sex: 79/M Location: [facility] Status: Signed with Addenda ADDENDUM by Dr. Ricki Fournier MD on 08/27/24 at 0932 Assessment and Plan (No Qualifiers) Assessment and Plan (1) Dermatochalasis of both lower eyelids: Status: Acute (2) Blepharochalasis of both upper eyelids: Status: Acute 08/27/2432 Date Ricki Fournier MD cc: * Signed Intake Vital Signs 06/04/24 08:34 08/27/24 09:11 Height 6 ft 5 ft 11 in Weight: 178 lb 179 lb BMI 24.1 25.0 BP 111/75 152/81 H Blood Pressure Location Lt brachial Rt brachial Position Sitting Sitting Respiration 16 18 Pulse 90 87 Pulse Source NIBP Temp 97.9 F Temp Source Oral Pulse Oximetry (%) 97 Oxygen Delivery Method room air Intake Visit Reasons: BLEPHAROCHALASIS Chief Complaint: discusss options for left blepharochalasis Is patient in pain?: No Allergies No Known Allergies Allergy (Verified 08/27/24 09:09) Medications ???Medication ???Instructions ???Recorded ???Confirmed ???Type B-complex with vitamin C (Super B 1 tab PO DAILY 11/02/19 06/04/24 History Complex-Vitamin C tablet) cholecalciferol (vitamin D3) 25 25 mcg PO DAILY 11/02/19 06/04/24 History mcg (1,000 unit) tablet nitroglycerin 0.4 mg sublingual 0.4 mg sublingual Q5M PRN Chest 11/02/19 06/04/24 Rx tablet Pain #90 tabs atorvastatin 80 mg tablet 80 mg PO Q OTHER DAY 01/09/22 06/04/24 History metoprolol succinate 50 mg 50 mg PO DAILY 06/06/23 06/04/24 History tablet,extended release 24 hr isosorbide mononitrate 30 mg 30 mg PO DAILY #90 tabs 10/30/23 06/04/24 Rx tablet,extended release 24 hr wqassahlw-itoyavks-qgxy-hb 112 500 cap PO QDAY 06/04/24 06/04/24 History mg capsule (Bio-Immunex) escitalopram oxalate 20 mg tablet 20 mg PO QDAY 06/04/24 06/04/24 History tyrosine 400 mg-acetylcysteine 133 cap PO QDAY 06/04/24 06/04/24 History mg capsule (AdrenaMax) Have you fallen in the past year?: No PFSH Medical History Cancer Cataracts, bilateral Skin cancer Pure hypercholesterolemia Chest pain Nonrheumatic mitral valve disorder Presence of stent in coronary artery ( 03/15/15) Essential hypertension Mitral valve disorder Myocardial infarction Hypertension 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 Surgical History Status post percutaneous transluminal coronary angioplasty ( 02/24/15) History of appendectomy Postsurgical percutaneous transluminal coronary angioplasty (PTCA) status Family History Father CVA (cerebral vascular accident) Mother Rheumatic fever FH: CABG (coronary artery bypass surgery) Social History Smoking Status: Current every day smoker alcohol intake: current alcohol intake frequency: a few times a week Alcohol type: beer substance use type: does not use caffeine: Yes Type: coffee Number of servings: 3 what type of physical activity do you participate in: none seatbelt use: always do you feel safe at home: Yes HPI BLEPHAROCHALASIS Details: Ricki Bhardwaj is a delightful 79-year-old male with past medical history of heart attack in 2014 status post stenting (negative stress test in 2022 with a recent ejection fraction of 55%, follows with cardiology) who is not on any blood thinners or antiplatelet agents at this time, who also has a history of essential hypertension, who presents today for evaluation as a referral from [facility] dermatology for lower eyelid deformity. He reports episodic swelling over the bottom of the lower eyelids bilaterally. Skin appears stretched. Of note, he also had stroke 2 decades ago that affects his left eye vision (burly), but he's 20/20 out of the right. He has some watering of the left eye. Had upper eyelid blepharoplasty in the past. No personal or family history of bleeding or clotting problems, no personal or family history of problems with anesthesia. He is a current smoker (1 pack/day). ROS General General: Yes good health; No fatigue, fever(s) or weight loss HENMT HENMT: No rhinitis, sore throat/mouth sore, nasal congestion, contacts or glaucoma Endo Endocrine: No thyroid disease, polydipsia, heat intolerance, cold intolerance, hepatitis or excessive urine Sk (more content not included)... [facility] Final Surgical Pathology Rep eva 11-20-2023 Final Surgical Pathology Report . Pathology Reports Accession: Collected Date/Time: Received Date/Time: Pathologist: [id number] 11/18/2023 08:58 EDT 11/19/2023 07:22 EDT HONG VALLADARES MD Final Surgical Pathology Report DIAGNOSIS: A. TRANSVERSE COLON, POLYPECTOMY: - TUBULAR ADENOMA B. CECUM, POLYPECTOMY: - TUBULAR ADENOMA CLINICAL INFORMATION: PROCEDURE: COLONOSCOPY PREOPERATIVE DIAGNOSIS: HISTORY OF MULTIPLE ADENOMAS, COLON POSTOPERATIVE DIAGNOSIS: HISTORY OF MULTIPLE ADENOMAS, COLON SPECIMEN: A TRANSVERSE COLON POLYP B CECAL POLYP GROSS DESCRIPTION: All parts labelled with patient name and [id number] A. Received in formalin labeled transverse colon polyp is 1 mueller tissue fragment measuring 0.3 cm. TS-1 B. Received in formalin labeled cecal polyp are 3 mueller tissue fragments measuring 0.2 to 0.5 x 0.1 cm. TS-1 Oriana Ridley, Grossing Power Marketer/ Dr. Hong Valladares, Pathologist Dictated by Oriana Ridley MICROSCOPIC DESCRIPTION: The microscopic examination is performed, except in the case of Gross Only. Electronically Signed by Pathology Report verified by [facility] HONG VALLADARES Sign out Date: 11/20/2023 14:45 Performing Lab: [facility], [address] [place] [address] Pathology Dept Disclaimer If ancillary studies were utilized, the following Laboratory Developed Test (LDT) disclaimer will apply: Under CLIA requirements, [facility] Pathology Laboratory is qualified to perform high complexity testing. For all ancillary stains, positive and negative controls stain appropriately. Performance characteristics of immunohistochemical and chromogenic in-situ hybridization tests have been determined by [facility] Pathology Laboratory. These tests are used for clinical purposes, They should not be regarded as investigational or for research. Normal [facility] ([place]) 2019 Novel Coronavirus (COVI D-19), KEN ([id number])Ordered By: Nutritionist on 05-15-20222018 Novel Coronavirus (COVID-19), KEN ([id number]) Not detected Normal [facility]; [facility] Work Phone: HEPATITIS C ANTIBODY ([id number]) Ordered By: Nutritionist on 12-28-2021 HCV Ab Signal/Cutoff IA [Rel units/Vol] {ratio} Normal 0.0-0.9 [facility]; [facility] Work Phone: PSA (Medicare - [id number]) ([id number])Ordered By: Nutritionist on 12-28-2021 Prostate specific Ag [Mass/Vol] 1.8 ng/mL Normal 0.0-4.0 [facility]; [facility] Work Phone: Cytology report of Body flui d Cyto stainon 10-31-2021 Cytology report Cyto stain Doc (Body fld) SEE PATHOLOGY REPORT [facility] Work Phone: Comment on above: Specimen submitted t o Anatomical Pathology Department for testing. CALCIFEDIOL ([id number])Ordered B y: Nutritionist on 06-24-2020 25-Hydroxyvitamin D2+25-Hydroxyvitamin D3 [Mass/Vol] 44.7 ng/mL Normal 30.0-100.0 [facility] Work Phone: Comment on above: Vitamin D deficiency has been defined by the [place] ofMedicine and an Endocrine Society practice guideline as alevel of serum 25-OH vitamin D less than 20 ng/mL (1,2).The Endocrine Society went on to further define vitamin Dinsufficiency as a level between 21 and 29 ng/mL (2).1. IOM ([place] of Medicine). 2010. Dietary reference intakes for calcium and D. [place]: The National Academies Press.2. Luca MF, Elena NC, David-Ben ALVAREZ, et al. Evaluation, treatment, and prevention of vitamin D deficiency: an Endocrine Society clinical practice guideline. JCEM. 2010; 96(7):1911-30. PATIENT WAS FASTINGP ERFORMED BY: [facility] Center[facility]hpbco8066 [facility] [id number] CBC W/AUTO DIFF WBC ([id number])O rdered By: Nutritionist on 06-24-2020 Basophils (Bld) [#/Vol] 0.1 {x10E3/uL} Normal 0.0-0.2 [facility] Work Phone: Comment on above: PATIENT WAS FASTINGP ERFORMED BY: DOROTHY GilbertoRenuka Hnxeku0793 [facility] [id number] Basophils (Bld) [#/Vol] 0.1 10*3/uL Normal 0.0-0.2 [facility]; [facility] Work Phone: Basophils/100 WBC (Bld) 1 % Normal [facility] Work Phone: Comment on above: PATIENT WAS FASTINGP ERFORMED BY: DOROTHY [facility] Urxzry3606 [facility] [id number] Eosinophils (Bld) [#/Vol] 0.4 {x10E3/uL} Normal 0.0-0.4 [facility] Work Phone: Comment on above: PATIENT WAS FASTINGP ERFORMED BY: DOROTHY [place] [id number] [facility] [id number] Eosinophils (Bld) [#/Vol] 0.4 10*3/uL Normal 0.0-0.4 [facility]; [facility] Work Phone: Eosinophils/100 WBC (Bld) 5 % Normal [facility] Work Phone: Comment on above: PATIENT WAS FASTINGP ERFORMED BY: [place] [id number] [facility] [id number] Erythrocyte distribution width (RBC) [Ratio] 13.5 % Normal 11.6-15.4 [facility] Work Phone: Comment on above: PATIENT WAS FASTINGP ERFORMED BY: DOROTHY [place] [id number] [facility] [id number] Hematocrit (Bld) [Volume fraction] 41.3 % Normal 37.5-51.0 [facility] Work Phone: Comment on above: PATIENT WAS FASTINGP ERFORMED BY: [address] [id number] Hemoglobin (Bld) [Mass/Vol] 14.1 g/dL Normal 13.0-17.7 [facility] Work Phone: Comment on above: PATIENT WAS FASTINGP ERFORMED BY: DOROTHY [facility]6370 [facility] [id number] Immature granulocytes (Bld) [#/Vol] 0.0 {x10E3/uL} Normal 0.0-0.1 [facility] Work Phone: Comment on above: PATIENT WAS FASTINGP ERFORMED BY: [place] [id number] [facility] [id number] Immature granulocytes (Bld) [#/Vol] 0.0 10*3/uL Normal 0.0-0.1 [facility]; [facility] Work Phone: Immature granulocytes/100 WBC (Bld) 1 % Normal [facility] Work Phone: Comment on above: PATIENT WAS FASTINGP ERFORMED BY: [place] [id number] [facility] [id number] Lymphocytes (Bld) [#/Vol] 1.5 {x10E3/uL} Normal 0.7-3.1 [facility] Work Phone: Comment on above: PATIENT WAS FASTINGP ERFORMED BY: [place] [id number] [facility] [id number] Lymphocytes (Bld) [#/Vol] 1.5 10*3/uL Normal 0.7-3.1 [facility]; [facility] Work Phone: Lymphocytes/100 WBC (Bld) 19 % Normal [facility] Work Phone: Comment on above: PATIENT WAS FASTINGP ERFORMED BY: [place] [id number] [facility] [id number] MCH (RBC) [Entitic mass] 31.1 pg Normal 26.6-33.0 [facility] Work Phone: Comment on above: PATIENT WAS FASTINGP ERFORMED BY: [place] [id number] [facility] [id number] MCHC (RBC) [Mass/Vol] 34.1 g/dL Normal 31.5-35.7 [facility] Work Phone: Comment on above: PATIENT WAS FASTINGP ERFORMED BY: DOROTHY [facility] Cjiksc9317 [facility] [id number] MCV (RBC) [Entitic vol] 91 fL Normal 79-97 [facility] Work Phone: Comment on above: PATIENT WAS FASTINGP ERFORMED BY: DOROTHY [facility] Wshcfy9006 [facility] [id number] Monocytes (Bld) [#/Vol] 0.5 {x10E3/uL} Normal 0.1-0.9 [facility] Work Phone: Comment on above: PATIENT WAS FASTINGP ERFORMED BY: DOROTHY [facility] Luqgcd3077 [facility] [id number] Monocytes (Bld) [#/Vol] 0.5 10*3/uL Normal 0.1-0.9 [facility]; [facility] Work Phone: Monocytes/100 WBC (Bld) 7 % Normal [facility] Work Phone: Comment on above: PATIENT WAS FASTINGP ERFORMED BY: DOROTHY [facility] Kstmdj6566 [facility] [id number] Neutrophils (Bld) [#/Vol] 5.6 {x10E3/uL} Normal 1.4-7.0 [facility] Work Phone: Comment on above: PATIENT WAS FASTINGP ERFORMED BY: [facility]6370 [facility] [id number] Neutrophils (Bld) [#/Vol] 5.6 10*3/uL Normal 1.4-7.0 [facility]; [facility] Work Phone: Neutrophils/100 WBC (Bld) 67 % Normal [facility] Work Phone: Comment on above: PATIENT WAS FASTINGP ERFORMED BY: CB [facility]6370 [facility] [id number] Platelets (Bld) [#/Vol] 195 {x10E3/uL} Normal 150-450 [facility] Work Phone: Comment on above: PATIENT WAS FASTINGP ERFORMED BY: DOROTHY Castillolin6370 [facility] [id number] Platelets (Bld) [#/Vol] 195 10*3/uL Normal 150-450 [facility]; [facility] Work Phone: RBC (Bld) [#/Vol] 4.54 {x10E6/uL} Normal 4.14-5.80 [facility] Internal Medicine Work Phone: Comment on above: PATIENT WAS FASTINGP ERFORMED BY: DOROTHY Castillolin6370 [facility] [id number] RBC (Bld) [#/Vol] 4.54 10*6/uL Normal 4.14-5.80 [facility] Internal Medicine; [facility] Work Phone: WBC (Bld) [#/Vol] 8.1 {x10E3/uL} Normal 3.4-10.8 [facility] Work Phone: Comment on above: PATIENT WAS FASTINGP ERFORMED BY: DOROTHY [place] Aaygdi6154 [facility] [id number] WBC (Bld) [#/Vol] 8.1 10*3/uL Normal 3.4-10.8 [facility] [place] [facility]; [facility] Work Phone: LIPID PANEL ([id number])Ordered B y: Nutritionist on 06-24-2020 Cholesterol [Mass/Vol] 108 mg/dL Normal 100-199 [facility] Work Phone: Comment on above: PATIENT WAS FASTINGP ERFORMED BY: DOROTHY GilbertoJessenia Rvzvcf8991 [facility] [id number] Cholesterol in HDL [Mass/Vol] 36 mg/dL Abnormal [facility] Work Phone: Comment on above: PATIENT WAS FASTINGP ERFORMED BY: CB [facility] Qfaqaz0254 [facility] [place] [id number] Cholesterol in LDL/Cholesterol in HDL [Mass ratio] 1.5 {ratio} Normal 0.0-3.6 [facility] Work Phone: Comment on above: LDL/HDL Ratio Men Wo men 1/2 Avg.Risk 1.0 1.5 Avg.Risk 3.6 3.2 2X Avg.Risk 6.2 5.0 3X Avg.Risk 8.0 6.1 PATIENT WAS FASTINGP ERFORMED BY: CB [facility] Xjzbxi8165 [facility] [place] [id number] Triglyceride [Mass/Vol] 83 mg/dL Normal 0-149 [facility] Work Phone: Comment on above: PATIENT WAS FASTINGP ERFORMED BY: DOROTHY [facility] Cmzxcl8319 [facility]in [place] [id number] LIPID PANEL (38659) 17 mg/dL Normal 5-40 [facility] Internal Medicine Work Phone: Comment on above: PATIENT WAS FASTINGP ERFORMED BY: DOROTHY [facility] Yiysgp1958 [facility]in [place] [id number] LIPID PANEL (14750) 55 mg/dL Normal 0-99 [facility] Internal Medicine Work Phone: Comment on above: PATIENT WAS FASTINGP ERFORMED BY: DOROTHY [facility] Ifjohc5855 [facility]in [place] [id number] LIPID PANEL (72268) 1.5 {ratio} Normal 0.0-3.6 [facility]erens[facility]; [facility] Work Phone: METABOLIC PANEL, COMPREHENSI VE (47752)Ordered By: Nutritionist on 06-24-2020 Albumin [Mass/Vol] 4.1 g/dL Normal 3.7-4.7 [facility] [place] Internal Medicine Work Phone: Comment on above: PATIENT WAS FASTINGP ERFORMED BY: CB [facility] Zsambv7028 [facility] [place] [id number] Albumin/Globulin [Mass ratio] 1.9 {ratio} Normal 1.2-2.2 [facility] Work Phone: Comment on above: PATIENT WAS FASTINGP ERFORMED BY: [facility] Jnoyht0025 [address] RoadDublin [place] [id number] ALP [Catalytic activity/Vol] 91 [iU]/L Normal 39-117 [facility] Work Phone: Comment on above: PATIENT WAS FASTINGP ERFORMED BY: [facility] Arwugz5607 [address] RoadDublin [place] [id number] ALP [Catalytic activity/Vol] 91 U/L Normal 39-117 [facility]; [facility] Work Phone: ALT [Catalytic activity/Vol] 22 [iU]/L Normal 0-44 [facility] Work Phone: Comment on above: PATIENT WAS FASTINGP ERFORMED BY: [facility] Vdxvzy8643 [address] RoadDublin [place] [id number] ALT [Catalytic activity/Vol] 22 U/L Normal 0-44 [facility]; [facility] Work Phone: AST [Catalytic activity/Vol] 22 [iU]/L Normal 0-40 [facility] Work Phone: Comment on above: PATIENT WAS FASTINGP ERFORMED BY: [facility]Ell[facility] Yepyod8041 [address] RoadDublin [place] [id number] AST [Catalytic activity/Vol] 22 U/L Normal 0-40 [facility]; [facility] Work Phone: Bilirubin [Mass/Vol] 0.5 mg/dL Normal 0.0-1.2 [facility]erens[facility] Work Phone: Comment on above: PATIENT WAS FASTINGP ERFORMED BY: [facility] Vmkcwf7741 [address] RoadDublin [place] [id number] Calcium [Mass/Vol] 8.6 mg/dL Normal 8.6-10.2 [facility] [place] Internal Medicine Work Phone: Comment on above: PATIENT WAS FASTINGP ERFORMED BY: [facility] Dwcznc8106 [address] RoadDublin [place] [id number] Chloride [Moles/Vol] 106 mmol/L Normal 96-106 [facility] Work Phone: Comment on above: PATIENT WAS FASTINGP ERFORMED BY: CB [facility] Spacxl5696 [address] RoadDublin [place] [id number] CO2 [Moles/Vol] 25 mmol/L Normal 20-29 [facility] Internal Medicine Work Phone: Comment on above: PATIENT WAS FASTINGP ERFORMED BY: CB [facility] Wmjund6854 [address] RoadDublin [place] [id number] Creatinine [Mass/Vol] 1.13 mg/dL Normal 0.76-1.27 [facility] Work Phone: Comment on above: PATIENT WAS FASTINGP ERFORMED BY: CB [facility] Gjzqpr8021 [address] RoadDublin [place] [id number] GFR/1.73 sq M predicted among blacks CKD-EPI (S/P/Bld) [Vol rate/Area] 74 mL/min/1.73 Normal [facility] Work Phone: Comment on above: PATIENT WAS FASTINGP ERFORMED BY: [facility] Gmaemi4069 [address] RoadDublin [place] [id number] GFR/1.73 sq M predicted among non-blacks CKD-EPI (S/P/Bld) [Vol rate/Area] 64 mL/min/1.73 Normal [facility] Work Phone: Comment on above: PATIENT WAS FASTINGP ERFORMED BY: CB [facility] Mnukga3606 [address] RoadUnc Medical Centerin [place] [id number] Globulin (S) [Mass/Vol] 2.2 g/dL Normal 1.5-4.5 [facility] Internal Medicine Work Phone: Comment on above: PATIENT WAS FASTINGP ERFORMED BY: CB [facility] Djampa7532 [address] RoadDublin [place] [id number] Glucose [Mass/Vol] 82 mg/dL Normal 65-99 [facility] [place] Internal Medicine Work Phone: Comment on above: PATIENT WAS FASTINGP ERFORMED BY: CB [facility] Spuvtn4350 [address] RoadDublin [place] [id number] Potassium [Moles/Vol] 4.9 mmol/L Normal 3.5-5.2 [facility] Work Phone: Comment on above: PATIENT WAS FASTINGP ERFORMED BY: DOROTHY LabComonserrat CastilloHcyobf0685 [address] [place] [facility] CommerceUnc Medical Centerin [place] [id number] Protein [Mass/Vol] 6.3 g/dL Normal 6.0-8.5 [facility] Internal [facility] Work Phone: Comment on above: PATIENT WAS FASTINGP ERFORMED BY: DOROTHY LabComonserrat CastilloYgqwhm3550 [address] [facility]in [place] [id number] Sodium [Moles/Vol] 143 mmol/L Normal 134-144 [facility] Work Phone: Comment on above: PATIENT WAS FASTINGP ERFORMED BY: DOROTHY LabJessenia CastilloXcemlc6908 [address] [facility] CommerceAt[facility] Pine[facility] [id number] Urea nitrogen [Mass/Vol] 21 mg/dL Normal 8-27 [facility] Work Phone: Comment on above: PATIENT WAS FASTINGP ERFORMED BY: DOROTHY LabJessenia CastilloUdydjl9920 [address] [facility] CommerceAt[facility] Health Pine[facility] [id number] Urea nitrogen/Creatinine [Mass ratio] 19 mg/mg Normal 10-24 [facility] Work Phone: Comment on above: PATIENT WAS FASTINGP ERFORMED BY: DOROTHY Castillolin6370 [address] [facility] CommerceAt[facility] Health Pine[facility] [id number] MICROALBUMINOrdered By: Syst em Ion Implant Machine Operator on 06-24-2020 Albumin DL <= 20 mg/L (U) [Mass/Vol] 29.0 ug/mL Normal Comprehensiv e Internal Medicine Work Phone: Comment on above: PATIENT WAS FASTINGP ERFORMED BY: DOROTHY [facility] Louvfm5923 [facility]in [place] [id number] Albumin/Creatinine (U) [Mass ratio] 14 {mg/g_creat} Normal 0-29 [facility] Work Phone: Comment on above: Normal: 0 - 29 Moder ately increased: 30 - 300 Severely increased: >300 PATIENT WAS FASTINGP ERFORMED BY: DOROTHY [facility]6370 [facility] [id number] Creatinine (U) [Mass/Vol] 200.1 mg/dL Normal [facility] Work Phone: Comment on above: PATIENT WAS FASTINGP ERFORMED BY: DOROTHY Nicol Yqzbug7459 [address] [facility]in [place] [id number] TSH ([id number])Ordered By: Designlabe m Ion Implant Machine Operator on 06-24-2020 TSH Qn 0.675 {uIU/mL} Normal 0.450-4.50 0 [facility] Work Phone: Comment on above: PATIENT WAS FASTINGP ERFORMED BY: DOROTHY [facility] Bijnfi4440 [facility] [id number] URINALYSIS, W/ MICRO (30076) Ordered By: Nutritionist on 06-24-2020 Appearance (U) Clear Normal Comprehens anselmo Internal Medicine Work Phone: Comment on above: PATIENT WAS FASTINGP ERFORMED BY: DOROTHY GilbertoEllis Fischel [facility] Sfkcmh8659 [facility] [id number] Bilirubin Ql (U) Negative Normal Comprehe nsive Internal Medicine Work Phone: Comment on above: PATIENT WAS FASTINGP ERFORMED BY: DOROTHY GilbertoEllis [facility]ische[facility] Wzmjlq6419 [facility] [id number] Bilirubin Ql (U) Negative Normal Comprehe nsive Internal Medicine; [facility] Work Phone: Color (U) Yellow Normal [facility] Work Phone: Comment on above: PATIENT WAS FASTINGP ERFORMED BY: [facility]Stra[facility]6370 [address] [facility]in [place] [id number] Glucose Ql (U) Negative Normal Comprehens anselmo Internal Medicine Work Phone: Comment on above: PATIENT WAS FASTINGP ERFORMED BY: [facility] Uakpyc4136 [address] [facility] Hospitalblin [place] [id number] Glucose Ql (U) Negative Normal Comprehens anselmo Internal Medicine; [facility] Work Phone: Hemoglobin Ql (U) Negative Normal Compreh ensive Internal Medicine Work Phone: Comment on above: PATIENT WAS FASTINGP ERFORMED BY: DOROTHY [facility] Bnnuio5022 [address] RoadDublin [place] [id number] Hemoglobin Ql (U) Negative Normal Compreh ensive Internal Medicine; [facility] Work Phone: Ketones Ql (U) Negative Normal Comprehens anselmo Internal Medicine Work Phone: Comment on above: PATIENT WAS FASTINGP ERFORMED BY: DOROTHY [facility] Yaggsx5523 [address] RoadDublin [place] [id number] Ketones Ql (U) Negative Normal Comprehens anselmo Internal Medicine; [facility] Work Phone: Leukocyte esterase Test strip Ql (U) Negative Normal [facility] Work Phone: Comment on above: PATIENT WAS FASTINGP ERFORMED BY: DOROTHY LabComonserrat CastilloEmbjyb6229 [address] RoadDublin [place] [id number] Leukocyte esterase Test strip Ql (U) Negative Normal [facility]; [facility] Work Phone: Microscopic observation LM Nom (Urine sed) MICRON Normal [facility] Work Phone: Comment on above: Microscopic follows if indicated. PATIENT WAS FASTINGP ERFORMED BY: DOROTHY [facility] Bkvczq6846 [address] RoadDublin [place] [id number] Microscopic observation LM Nom (Urine sed) See below: Normal [facility] Work Phone: Comment on above: Microscopic was clayton cated and was performed. PATIENT WAS FASTINGP ERFORMED BY: DOROTHY [facility] Dpgsyk7466 [address] RoadDublin [place] [id number] Nitrite Ql (U) Negative Normal Comprehens anselmo Internal Medicine Work Phone: Comment on above: PATIENT WAS FASTINGP ERFORMED BY: DOROTHY [facility] Vxjvbl2304 [address] RoadDublin [place] [id number] Nitrite Ql (U) Negative Normal Comprehens anselmo Internal Medicine; [facility] Work Phone: pH (U) 5.0 [pH] Normal 5.0-7.5 [facility] Work Phone: Comment on above: PATIENT WAS FASTINGP ERFORMED BY: DOROTHY LabComonserrat Jtfoyg1621 [address] RoadDublin [place] [id number] Protein Ql (U) Trace Normal [facility] Internal Medicine Work Phone: Comment on above: PATIENT WAS FASTINGP ERFORMED BY: DOROTHY GilbertoCorp Kagbmm0766 [address] RoadDublin [place] [id number] Specific gravity (U) [Rel density] 1.028 1 Normal 1.005-1.03 0 [facility] Internal Medicine Work Phone: Comment on above: PATIENT WAS FASTINGP ERFORMED BY: DOROTHY [facility] Tqvfjs1567 [address] RoadDublin [place] [id number] Urobilinogen (U) [Mass/Vol] 0.2 mg/dL Normal 0.2-1.0 [facility] Internal Medicine; [facility] Internal Medicine Work Phone: Urobilinogen Test strip (U) [Mass/Vol] 0.2 mg/dL Normal 0.2-1.[address] [facility]erenst[facility] Internal Medicine Work Phone: Comment on above: PATIENT WAS FASTINGP ERFORMED BY: DOROTHY LabEll[facility] Aoebto7570 [address] RoadDublin [place] [id number] VITAMIN B-12 (CYANOCOBALAMIN ) ([id number])Ordered By: Nutritionist on 06-24-2020 Cobalamin (Vitamin B12) [Mass/Vol] 402 pg/mL Normal 232-1245 [facility] Internal Medicine Work Phone: Comment on above: PATIENT WAS FASTINGP ERFORMED BY: DOROTHY [facility] Jfmygm3580 [address] RoadDublin [place] [id number] C-REACTIVE PROTEIN (32937)Or dered By: Nutritionist on 04-30-2019 CRP [Mass/Vol] 1 mg/L Normal 0-[address] [facility] Internal Medicine Work Phone: Comment on above: PATIENT WAS FASTINGP ERFORMED BY: DOROTHY [facility] Hiygnk1778 [address] RoadDublin [place] [id number] CALCIFIDIOL (91288) VIT D 25 Ordered By: Nutritionist on 04-30-2019 25-Hydroxyvitamin D2+25-Hydroxyvitamin D3 [Mass/Vol] 34.7 ng/mL Normal 30.0-100.0 [facility] Work Phone: Comment on above: Vitamin D deficiency has been defined by the [place] ofMedicine and an Endocrine Society practice guideline as alevel of serum 25-OH vitamin D less than 20 ng/mL (1,2).The Endocrine Society went on to further define vitamin Dinsufficiency as a level between 21 and 29 ng/mL (2).1. IOM (Bennett of Medicine). 2010. Dietary reference intakes for calcium and D. [place]: The National AcademEnergid Technologies Press.2. Luca MF, Eelna NC, Vini ALVAREZ, et al. Evaluation, treatment, and prevention of vitamin D deficiency: an Endocrine Society clinical practice guideline. JCEM. 2010; 96(7):1911-30. PATIENT WAS FASTINGP ERFORMED BY: [employer] Sczbym6803 [address] RoadDublin [place] [id number] CBC (AUTO) (09231)Ordered By : Nutritionist on 04-30-2019 Erythrocyte distribution width (RBC) [Ratio] 12.8 % Normal 12.3-15.4 [facility] Work Phone: Comment on above: PATIENT WAS FASTINGP ERFORMED BY: [employer] LabCareToSaverp Dsiovz8738 [address] [place] [employer] CommerceDublin [place] [id number] Hematocrit (Bld) [Volume fraction] 46.2 % Normal 37.5-51.0 [facility] Work Phone: Comment on above: PATIENT WAS FASTINGP ERFORMED BY: [employer] [facility] Uymxyy8897 [address] RoadDublin [place] [id number] Hemoglobin (Bld) [Mass/Vol] 16.0 g/dL Normal 13.0-17.7 [facility] Work Phone: Comment on above: PATIENT WAS FASTINGP ERFORMED BY: [employer] LabCareToSaverp Tsnhpi2461 [address] RoadDublin [place] [id number] MCH (RBC) [Entitic mass] 32.7 pg Normal 26.6-33.0 [facility] Work Phone: Comment on above: PATIENT WAS FASTINGP ERFORMED BY: [employer] [facility] Fjgfrk8179 [facility]in [place] [id number] MCHC (RBC) [Mass/Vol] 34.6 g/dL Normal 31.5-35.7 [facility] Work Phone: Comment on above: PATIENT WAS FASTINGP ERFORMED BY: DOROTHY [facility] Iuyvjj0754 [address] [facility] Hospitalbl[facility] [place] [id number] MCV (RBC) [Entitic vol] 94 fL Normal 79-97 [facility] Work Phone: Comment on above: PATIENT WAS FASTINGP ERFORMED BY: DOROTHY [facility] Fekpum5865 [address] RoadUnc Medical Centerin [place] [id number] Platelets (Bld) [#/Vol] 216 {x10E3/uL} Normal 150-450 [facility] Work Phone: Comment on above: PATIENT WAS FASTINGP ERFORMED BY: DOROTHY LabEll[facility] Xudgbl5925 [facility] [id number] Platelets (Bld) [#/Vol] 216 10*3/uL Normal 150-450 [facility]; [facility] Work Phone: RBC (Bld) [#/Vol] 4.90 {x10E6/uL} Normal 4.14-5.80 [facility] Internal Medicine Work Phone: Comment on above: PATIENT WAS FASTINGP ERFORMED BY: DOROTHY [facility]Stra[facility]6370 [facility] [id number] RBC (Bld) [#/Vol] 4.90 10*6/uL Normal 4.14-5.80 [facility] Internal Medicine; [facility] Work Phone: WBC (Bld) [#/Vol] 9.9 {x10E3/uL} Normal 3.4-10.8 [facility] Internal Medicine Work Phone: Comment on above: PATIENT WAS FASTINGP ERFORMED BY: DOROTHY [facility] Iqeyem6762 [address] [facility]in [place] [id number] WBC (Bld) [#/Vol] 9.9 10*3/uL Normal 3.4-10.8 [facility] [place] [facility]; [facility] Work Phone: METABOLIC PANEL, COMPREHENSI VE ([id number])Ordered By: Nutritionist on 04-30-2019 Albumin [Mass/Vol] 4.3 g/dL Normal 3.5-4.8 [facility] Internal Medicine Work Phone: Comment on above: PATIENT WAS FASTINGP ERFORMED BY: CB [facility] Ktzuja5659 [facility] [id number] Information: [id number], [id number] Albumin/Globulin [Mass ratio] 2.0 {ratio} Normal 1.2-2.2 [facility] Work Phone: Comment on above: PATIENT WAS FASTINGP ERFORMED BY: DOROTHY [facility] Squqha0978 [facility] [id number] Information: [id number], [id number] ALP [Catalytic activity/Vol] 95 [iU]/L Normal 39-117 [facility] Work Phone: Comment on above: PATIENT WAS FASTINGP ERFORMED BY: DOROTHY [facility] Ebzibz6706 [facility] [id number] Information: [id number], [id number] ALP [Catalytic activity/Vol] 95 U/L Normal 39-117 [facility]; [facility] Work Phone: ALT [Catalytic activity/Vol] 16 [iU]/L Normal 0-44 [facility] Work Phone: Comment on above: PATIENT WAS FASTINGP ERFORMED BY: [facility] Xsasxt0719 [facility] [id number] Information: [id number], [id number] ALT [Catalytic activity/Vol] 16 U/L Normal 0-44 [facility]; [facility] Work Phone: AST [Catalytic activity/Vol] 22 [iU]/L Normal 0-40 [facility] Work Phone: Comment on above: PATIENT WAS FASTINGP ERFORMED BY: [facility] Qnwifb1353 [facility] [id number] Information: [id number], [id number] AST [Catalytic activity/Vol] 22 U/L Normal 0-40 [facility]; [facility] Work Phone: Bilirubin [Mass/Vol] 0.5 mg/dL Normal 0.0-1.2 [facility]eren[facility] Internal Medicine Work Phone: Comment on above: PATIENT WAS FASTINGP ERFORMED BY: CB [facility] Ypusuv8350 [address] RoadDublin [place] [id number] Information: [id number], [id number] Calcium [Mass/Vol] 8.7 mg/dL Normal 8.6-10.2 [facility] Internal Medicine Work Phone: Comment on above: PATIENT WAS FASTINGP ERFORMED BY: CB [facility] Syljty1115 [address] RoadDublin [place] [id number] Information: [id number], [id number] Chloride [Moles/Vol] 105 mmol/L Normal 96-106 [facility] Internal Medicine Work Phone: Comment on above: PATIENT WAS FASTINGP ERFORMED BY: CB [facility] Fjzbzg6709 [address] RoadDublin [place] [id number] Information: [id number], [id number] CO2 [Moles/Vol] 24 mmol/L Normal 20-29 [facility] Internal Medicine Work Phone: Comment on above: PATIENT WAS FASTINGP ERFORMED BY: CB [facility] Qbrrpp2533 [address] RoadUnc Medical Centerin [place] [id number] Information: [id number], [id number] Creatinine [Mass/Vol] 1.04 mg/dL Normal 0.76-1.27 [facility] Internal Medicine Work Phone: Comment on above: PATIENT WAS FASTINGP ERFORMED BY: CB [facility] Zrczzi3070 [address] RoadUnc Medical Centerin [place] [id number] Information: [id number], [id number] GFR/1.73 sq M predicted among blacks CKD-EPI (S/P/Bld) [Vol rate/Area] 83 mL/min/1.73 Normal [facility] Internal Medicine Work Phone: Comment on above: PATIENT WAS FASTINGP ERFORMED BY: [facility]6370 [facility] [id number] Information: [id number], 609191 GFR/1.73 sq M predicted among non-blacks CKD-EPI (S/P/Bld) [Vol rate/Area] 71 mL/min/1.73 Normal [facility] Work Phone: Comment on above: PATIENT WAS FASTINGP ERFORMED BY: [facility]6370 [facility] [id number] Information: [id number], [id number] Globulin (S) [Mass/Vol] 2.2 g/dL Normal 1.5-4.5 [facility] Work Phone: Comment on above: PATIENT WAS FASTINGP ERFORMED BY: [facility]6370 [facility] [id number] Information: [id number] Glucose [Mass/Vol] 92 mg/dL Normal 65-99 [facility] Internal Medicine Work Phone: Comment on above: PATIENT WAS FASTINGP ERFORMED BY: [facility]6370 [facility] [id number] Information: [id number], [id number] Potassium [Moles/Vol] 4.3 mmol/L Normal 3.5-5.2 [facility] Work Phone: Comment on above: PATIENT WAS FASTINGP ERFORMED BY: LabStraith [facility]6370 [facility] [id number] Information: [id number], [id number] Protein [Mass/Vol] 6.5 g/dL Normal 6.0-8.5 [facility] [place] Internal [facility] Work Phone: Comment on above: PATIENT WAS FASTINGP ERFORMED BY: [facility] Gnbxoq8511 [facility] [id number] Information: [id number], [id number] Sodium [Moles/Vol] 144 mmol/L Normal 134-144 [facility] [place] [facility] Work Phone: Comment on above: PATIENT WAS FASTINGP ERFORMED BY: [facility] Bzvvkb0093 Bishop RoadDublin [place] [id number] Information: [id number], [id number] Urea nitrogen [Mass/Vol] 17 mg/dL Normal 8-27 [facility] Work Phone: Comment on above: PATIENT WAS FASTINGP ERFORMED BY: CB [facility] Emxzom6886 Bishop RoadDublin [place] [id number] Information: [id number], [id number] Urea nitrogen/Creatinine [Mass ratio] 16 mg/mg Normal 10-24 [facility] Work Phone: Comment on above: PATIENT WAS FASTINGP ERFORMED BY: CB [facility] Rvxjec7646 Bishop RoadDublin [place] [id number] Information: [id number], [id number] SED RATE ERYTHROCYTE (88410) Ordered By: Nutritionist on 04-30-2019 ESR (Bld) [Velocity] 2 mm/h Normal 0-30 [facility] Work Phone: Comment on above: PATIENT WAS FASTINGP ERFORMED BY: [facility] Ctymtg5412 Bishop RoadDublin [place] [id number] TSH (91872)Ordered By: Olga m [employer] Implant Machine Operator on 04-30-2019 TSH Qn 1.010 {uIU/mL} Normal 0.450-4.50 0 [facility] Work Phone: Comment on above: PATIENT WAS FASTINGP ERFORMED BY: [facility] Frzyik5525 Bishop RoadDublin [place] [id number] VITAMIN B-12 (CYANOCOBALAMIN ) (13110)Ordered By: Nutritionist on 04-30-2019 Cobalamin (Vitamin B12) [Mass/Vol] 525 pg/mL Normal 232-1245 [facility] Work Phone: Comment on above: PATIENT WAS FASTINGP ERFORMED BY: CB [facility] Qprput4451 Bishop RoadDublin [place] [id number] Basic Metabolic Profile (BMP )Ordered By: Nutritionist on 10-08-2018 Basic metabolic 2000 panel 19.8 {RATIO} Normal 10-20 [facility] Work Phone: Comment on above: [facility] [address] [place], [place], [phone] Basic metabolic 2000 panel 9 1 Normal 5-15 [facility] Work Phone: Comment on above: [facility] [address] [place], [place], [address] Basic metabolic 2000 panel 93 mL/min Normal [facility] Work Phone: Comment on above: GFR Calc [facility] [address] [place], [place], [phone] Basic metabolic 2000 panel 77 mL/min Normal [facility] Work Phone: Comment on above: Non- GFR Calc [facility] [address] [place], [place], [phone] Basic metabolic 2000 panel 1.01 mg/dL Normal 0.70-1.30 [facility] Work Phone: Comment on above: The validity of the calculated GFR AND GFRAA in patients over70 years has not been determined. Clinical correlation isessential. [facility] [address] [place], [place], [phone] Basic metabolic 2000 panel 20 mg/dL Abnormal 7-18 [facility] Work Phone: Comment on above: [facility] [address] [place], [place], [address] Basic metabolic 2000 panel 4.2 mmol/L Normal 3.5-5.1 [facility] Work Phone: Comment on above: [facility] [address] [place], [place], [phone] Basic metabolic 2000 panel 141 mmol/L Normal 136-145 [facility] Work Phone: Comment on above: [facility] [address]rxaf[address] [place], [place], [address] Basic metabolic 2000 panel 88 mg/dL Normal 74-106 [facility] Work Phone: Comment on above: Please note revised GLUCOSE reference range tcotlqifu17/02/2018. [facility] [address] [place], [place], [address] Basic metabolic 2000 panel 8.3 mg/dL Abnormal 8.5-10.1 [facility] Work Phone: Comment on above: [facility] N[address] [place], [address] Basic metabolic 2000 panel 109 mmol/L Abnormal 98-107 [facility] Work Phone: Comment on above: [facility] S[address] [place], [address] Basic metabolic 2000 panel 23.0 mmol/L Normal 21.0-32.0 [facility] Work Phone: Comment on above: [facility] Gr[address] [place], [place], [phone] CBC-Complete Blood Cnt No Di ffOrdered By: Nutritionist on 10-08-2018 Erythrocyte distribution width (RBC) [Ratio] 12.9 % Normal 11.6-14.6 [facility] Work Phone: Comment on above: [facility] T[address] [place], [address] Hematocrit (Bld) [Volume fraction] 50.3 % Normal 40-54 [facility] Work Phone: Comment on above: [facility] [address] [place], [address] Hemoglobin (Bld) [Mass/Vol] 16.8 g/dL Abnormal 13.0-16.5 [facility] Work Phone: Comment on above: [facility] [address] [place], [address] MCH (RBC) [Entitic mass] 31.6 pg Normal 27.0-32.0 [facility] Work Phone: Comment on above: [facility] [address] [place], [address] MCHC (RBC) [Mass/Vol] 33.4 {g/gl} Normal 32-36 [facility] Work Phone: Comment on above: [facility] Le[address] [place], [address] MCV (RBC) [Entitic vol] 94.7 fL Abnormal 80-94 [facility] Work Phone: Comment on above: [facility] [address] [place], [address] Platelet mean volume (Bld) [Entitic vol] 9.6 fL Normal 6.2-12.0 [facility] Internal Medicine Work Phone: Comment on above: [facility] [address] [place], [address] Platelets (Bld) [#/Vol] 170 10*3/uL Normal 150-450 [facility] Work Phone: Comment on above: [facility] [address] [place], [address] RBC (Bld) [#/Vol] 5.31 {M/mm3} Normal 4.6-6.2 Com[facility] Internal Medicine Work Phone: Comment on above: [facility] Ak[address]hl[address]pf[address] [place], [address] WBC (Bld) [#/Vol] 8.4 10*3/uL Normal 4.4-11.0 Comprcox [facility] Internal Medicine Work Phone: Comment on above: [facility] [address] [place], [address] CBC-Complete Blood Cnt No Diff 44.8 fL Abnormal 35.1-43.9 [facility] Work Phone: Comment on above: [facility] [address] [place], [place], [phone] Partial Thromboplast TimeOrd ered By: Nutritionist on 10-08-2018 aPTT Coag (PPP) [Time] 29.2 s Normal 24.1-36.2 [facility] Work Phone: Comment on above: [facility] [address] [place], [place], [phone] Prothrombin Time w/INROrdere d By: Nutritionist on 10-08-2018 INR Coag (PPP) [Relative time] 1.0 {INR} Normal [facility] Work Phone: Comment on above: [facility] [address] [place], [place], [phone] PT Coag (PPP) [Time] 13.0 s Normal 11.7-14.9 [facility] Work Phone: Comment on above: [facility] [address] [place], [place], [address] CBC W/AUTO DIFF WBC (73267)O rdered By: Nutritionist on 08-28-2018 Basophils (Bld) [#/Vol] 0.1 {x10E3/uL} Normal 0.0-0.2 [facility] Work Phone: Comment on above: PATIENT WAS FASTINGP ERFORMED BY: [employer] [address] [id number] BY: iContactHoboken University Medical CenterQfbqoi6866 [facility] [id number] Basophils (Bld) [#/Vol] 0.1 10*3/uL Normal 0.0-0.2 [facility]; [facility] Work Phone: Basophils/100 WBC (Bld) 1 % Normal [facility] Work Phone: Comment on above: PATIENT WAS FASTINGP ERFORMED BY: [employer] [address] [id number] BY: LabStraith [facility]6[address] [facility]in [place] [id number] Eosinophils (Bld) [#/Vol] 0.3 {x10E3/uL} Normal 0.0-0.4 [facility] Work Phone: Comment on above: PATIENT WAS FASTINGP ERFORMED BY: [address] [id number] BY: [place] 7958370 [facility] [id number] Eosinophils (Bld) [#/Vol] 0.3 10*3/uL Normal 0.0-0.4 [facility]; [facility] Work Phone: Eosinophils/100 WBC (Bld) 3 % Normal [facility] Work Phone: Comment on above: PATIENT WAS FASTINGP ERFORMED BY: [address] [id number] BY: [place] 7958370 [facility] [id number] Erythrocyte distribution width (RBC) [Ratio] 13.5 % Normal 12.3-15.4 [facility] Work Phone: Comment on above: PATIENT WAS FASTINGP ERFORMED BY: [address] [id number] BY: [place] 7958370 [facility] [id number] Hematocrit (Bld) [Volume fraction] 49.4 % Normal 37.5-51.0 [facility] Work Phone: Comment on above: PATIENT WAS FASTINGP ERFORMED BY: [address] [id number] BY: [facility]6370 [facility] [id number] Hemoglobin (Bld) [Mass/Vol] 17.1 g/dL Normal 13.0-17.7 [facility] Work Phone: Comment on above: PATIENT WAS FASTINGP ERFORMED BY: [address] [id number] BY: LabCoHoboken University Medical CenterKkxryl0691 [facility] [id number] Immature granulocytes (Bld) [#/Vol] 0.0 {x10E3/uL} Normal 0.0-0.1 [facility] Work Phone: Comment on above: PATIENT WAS FASTINGP ERFORMED BY: Lab[address] [id number] BY: LabCoHoboken University Medical CenterUeuxzt1007 [facility] [id number] Immature granulocytes (Bld) [#/Vol] 0.0 10*3/uL Normal 0.0-0.1 [facility]; [facility] Work Phone: Immature granulocytes/100 WBC (Bld) 0 % Normal [facility] Work Phone: Comment on above: PATIENT WAS FASTINGP ERFORMED BY: [employer] [id number] BY: LabCoHoboken University Medical CenterAzrgum7899 [facility] [id number] Lymphocytes (Bld) [#/Vol] 1.7 {x10E3/uL} Normal 0.7-3.1 [facility] Work Phone: Comment on above: PATIENT WAS FASTINGP ERFORMED BY: [address] [id number] BY: [place] 7958370 [facility] [id number] Lymphocytes (Bld) [#/Vol] 1.7 10*3/uL Normal 0.7-3.1 [facility]; [facility] Work Phone: Lymphocytes/100 WBC (Bld) 18 % Normal [facility] Work Phone: Comment on above: PATIENT WAS FASTINGP ERFORMED BY: [address] [id number] BY: [facility]Co Wfcnvu4731 [facility] [id number] MCH (RBC) [Entitic mass] 32.4 pg Normal 26.6-33.0 [facility] Work Phone: Comment on above: PATIENT WAS FASTINGP ERFORMED BY: [address] [id number] BY: LabCoJoseph [place] 7220570 [facility] [id number] MCHC (RBC) [Mass/Vol] 34.6 g/dL Normal 31.5-35.7 [facility] Work Phone: Comment on above: PATIENT WAS FASTINGP ERFORMED BY: [address] [id number] BY: LabElizabeth [place] 8571170 [facility] [id number] MCV (RBC) [Entitic vol] 94 fL Normal 79-97 [facility] Work Phone: Comment on above: PATIENT WAS FASTINGP ERFORMED BY: [employer] [id number] BY: LabElizabeth [place] 8571170 [facility] [id number] Monocytes (Bld) [#/Vol] 0.6 {x10E3/uL} Normal 0.1-0.9 [facility] Work Phone: Comment on above: PATIENT WAS FASTINGP ERFORMED BY: [employer] [id number] BY: LabStraith [facility]6370 [facility] [id number] Monocytes (Bld) [#/Vol] 0.6 10*3/uL Normal 0.1-0.9 [facility]; [facility] Work Phone: Monocytes/100 WBC (Bld) 6 % Normal [facility] Work Phone: Comment on above: PATIENT WAS FASTINGP ERFORMED BY: Lab[address] [id number] BY: [facility] Pijqtc3153 Bishop RoadDuin [place] [id number] Neutrophils (Bld) [#/Vol] 7.0 {x10E3/uL} Normal 1.4-7.0 [facility] Work Phone: Comment on above: PATIENT WAS FASTINGP ERFORMED BY: LabCo[address] [id number] BY: [facility] Kwexce0071 Bishop RoadUnc Medical Centerin [place] [id number] Neutrophils (Bld) [#/Vol] 7.0 10*3/uL Normal 1.4-7.0 [facility]; [facility] Work Phone: Neutrophils/100 WBC (Bld) 72 % Normal [facility] Work Phone: Comment on above: PATIENT WAS FASTINGP ERFORMED BY: LabCo[address] [id number] BY: LabCoHoboken University Medical CenterKlyhem2939 [facility] [id number] Platelets (Bld) [#/Vol] 202 {x10E3/uL} Normal 150-379 [facility] Work Phone: Comment on above: PATIENT WAS FASTINGP ERFORMED BY: [address] [id number] BY: LabStraith [facility]6370 [facility] [id number] Platelets (Bld) [#/Vol] 202 10*3/uL Normal 150-379 [facility]; [facility] Work Phone: RBC (Bld) [#/Vol] 5.27 {x10E6/uL} Normal 4.14-5.80 [facility] Internal Medicine Work Phone: Comment on above: PATIENT WAS FASTINGP ERFORMED BY: Lab[address] [id number] BY: DOROTHY [employer] Rnpuzz4397 [facility] [id number] RBC (Bld) [#/Vol] 5.27 10*6/uL Normal 4.14-5.80 [facility]; [facility] Work Phone: WBC (Bld) [#/Vol] 9.7 {x10E3/uL} Normal 3.4-10.8 [facility] Centerensive Internal [facility] Work Phone: Comment on above: PATIENT WAS FASTINGP ERFORMED BY: [employer] [id number] BY: iContactHoboken University Medical CenterVmsove1228 [facility] [id number] WBC (Bld) [#/Vol] 9.7 10*3/uL Normal 3.4-10.8 [facility] [place] [facility]; [facility] Work Phone: LIPOPROTEIN, BLD, BY NMR (83 70)Ordered By: Nutritionist on 08-28-2018 Cholesterol [Mass/Vol] 167 mg/dL Normal 100-199 [facility] Work Phone: Comment on above: PATIENT WAS FASTINGP ERFORMED BY: [employer] [id number] BY: iContactHoboken University Medical CenterBvlrqi0394 [facility] [id number] Cholesterol in HDL [Mass/Vol] 33 mg/dL Abnormal [facility] Work Phone: Comment on above: PATIENT WAS FASTINGP ERFORMED BY: [employer] [id number] BY: iContactHoboken University Medical CenterBmkadw0639 [facility] [id number] Cholesterol in LDL [Mass/Vol] 99 mg/dL Normal 0-99 [facility] Work Phone: Comment on above: . Optimal < 100 Abov e optimal 100 - 129 Borderline 130 - 159 High 160 - 189 Very high > 189 .LDL-C is inaccurate if patient is non-fasting. PATIENT WAS FASTINGP ERFORMED BY: [employer] [address] [id number] BY: [employer] Jjehxe1798 [facility] [id number] Lipoprotein.alpha [Moles/Vol] 25.2 umol/L Abnormal [facility] Work Phone: Comment on above: PATIENT WAS FASTINGP ERFORMED BY: [employer]Contact[address] [id number] BY: [employer] Xnypqq5182 [facility] [id number] Lipoprotein.beta.sub particle [Entitic length] 20.3 nm Abnormal [facility] Work Phone: Comment on above: INTERPRETATIVE INFORMATION PARTICLE CONCENTRATION AND SIZE <--Lower CVD Risk Higher CVD Risk--> LDL AND HDL PARTICLES Percentile [...] were developed and their performance characteristicsdetermined by [employer]. These assays have not been cleared by [place] Food and Drug Administration. The clinical utility of theselaboratory values have not been fully established. PATIENT WAS FASTINGP ERFORMED BY: Qritiqr[address] [id number] BY: [facility]Co Gjldhd3609 Bishop RoadUnc Medical Centerin [place] [id number] Lipoprotein.beta.sub particle [Moles/Vol] 1188 nmol/L Abnormal Comprehensi ve Internal Medicine Work Phone: Comment on above: Low < 1000 Moderate 1000 - 1299 Borderline-High 1300 - 1599 High 1600 - 2000 Very High > 2000 PATIENT WAS FASTINGP ERFORMED BY: LabCo[address] [id number] BY: [facility] Yknpzq1050 [facility]in [place] [id number] Lipoprotein.beta.sub particle.small [Moles/Vol] 552 nmol/L Abnormal [facility] Work Phone: Comment on above: PATIENT WAS FASTINGP ERFORMED BY: [employer]Contact[address] [id number] BY: LabDoctors Hospital Of SpringfieldNellvc0437 [facility] [id number] Triglyceride [Mass/Vol] 177 mg/dL Abnormal 0-149 [facility] Work Phone: Comment on above: PATIENT WAS FASTINGP ERFORMED BY: [employer] [id number] BY: LabCoHoboken University Medical CenterZkopqg2066 [facility] [id number] METABOLIC PANEL, COMPREHENSI VE (36061)Ordered By: Nutritionist on 08-28-2018 Albumin [Mass/Vol] 4.5 g/dL Normal 3.5-4.8 [facility] [place] [facility] Work Phone: Comment on above: PATIENT WAS FASTINGP ERFORMED BY: [employer] [id number] BY: LabStraith [facility]6370 [facility] [id number] Albumin/Globulin [Mass ratio] 1.8 {ratio} Normal 1.2-2.2 [facility] Work Phone: Comment on above: PATIENT WAS FASTINGP ERFORMED BY: [employer] [id number] BY: LabCoHoboken University Medical CenterBrywsj6233 [facility] [id number] ALP [Catalytic activity/Vol] 88 [iU]/L Normal 39-117 [facility] Work Phone: Comment on above: PATIENT WAS FASTINGP ERFORMED BY: Lab[address] [id number] BY: LabCoJoseph [place] 7220570 [facility] [id number] ALP [Catalytic activity/Vol] 88 U/L Normal 39-117 [facility]; [facility] Work Phone: ALT [Catalytic activity/Vol] 14 [iU]/L Normal 0-44 [facility] Work Phone: Comment on above: PATIENT WAS FASTINGP ERFORMED BY: iContact[address] [id number] BY: LabCoJoseph [place] 7220570 [facility] [id number] ALT [Catalytic activity/Vol] 14 U/L Normal 0-44 [facility]; [facility] Work Phone: AST [Catalytic activity/Vol] 15 [iU]/L Normal 0-40 [facility] Work Phone: Comment on above: PATIENT WAS FASTINGP ERFORMED BY: [employer] [id number] BY: LabStra[facility]6370 [facility] [id number] AST [Catalytic activity/Vol] 15 U/L Normal 0-40 [facility]; [facility] Work Phone: Bilirubin [Mass/Vol] 0.6 mg/dL Normal 0.0-1.2 Comp rehensive Internal Medicine Work Phone: Comment on above: PATIENT WAS FASTINGP ERFORMED BY: [employer] [id number] BY: CB [facility] Mbdcmv3070 [address] RoadDublin [place] [id number] Calcium [Mass/Vol] 9.1 mg/dL Normal 8.6-10.2 [facility] [place] [facility] Work Phone: Comment on above: PATIENT WAS FASTINGP ERFORMED BY: BN [facility] Psohzfweoj[address] [id number] BY: DOROTHY [facility] Lgyfew4928 Bishop RoadDublin [place] [id number] Chloride [Moles/Vol] 102 mmol/L Normal 96-106 Comp [facility]ensive Internal [facility] Work Phone: Comment on above: PATIENT WAS FASTINGP ERFORMED BY: BN [facility] [address] [id number] BY: DOROTHY [facility] Xyavtb6469 Bishop RoadDublin [place] [id number] CO2 [Moles/Vol] 24 mmol/L Normal 20-29 [facility] Internal Medicine Work Phone: Comment on above: PATIENT WAS FASTINGP ERFORMED BY: [facility] [address] [id number] BY: DOROTHY [facility] Uipffi0949 [address] RoadDublin [place] [id number] Creatinine [Mass/Vol] 0.99 mg/dL Normal 0.76-1.27 [facility] Work Phone: Comment on above: PATIENT WAS FASTINGP ERFORMED BY: [facility] [address] [id number] BY: CB [facility] Aqnzxh4229 Bishop RoadDublin [place] [id number] GFR/1.73 sq M predicted among blacks CKD-EPI (S/P/Bld) [Vol rate/Area] 88 mL/min/1.73 Normal [facility] Work Phone: Comment on above: PATIENT WAS FASTINGP ERFORMED BY: [facility] [address] [id number] BY: DOROTHY [facility] Fcwtgs1657 [address] RoadDublin [place] [id number] GFR/1.73 sq M predicted among non-blacks CKD-EPI (S/P/Bld) [Vol rate/Area] 76 mL/min/1.73 Normal [facility] Work Phone: Comment on above: PATIENT WAS FASTINGP ERFORMED BY: Lab[address] [id number] BY: LabCo Zedaaa9802 Bishop RoadUnc Medical Centerin [place] [id number] Globulin (S) [Mass/Vol] 2.5 g/dL Normal 1.5-4.5 [facility] Work Phone: Comment on above: PATIENT WAS FASTINGP ERFORMED BY: Lab[address] [id number] BY: [facility] Eidcis2312 [facility]in [place] [id number] Glucose [Mass/Vol] 82 mg/dL Normal 65-99 [facility] [place] [facility] Work Phone: Comment on above: PATIENT WAS FASTINGP ERFORMED BY: Lab[address] [id number] BY: LabDoctors Hospital Of SpringfieldZaxpfb8588 [facility] Hospitalin [place] [id number] Potassium [Moles/Vol] 5.0 mmol/L Normal 3.5-5.2 [facility] Internal Medicine Work Phone: Comment on above: PATIENT WAS FASTINGP ERFORMED BY: Lab[address] [id number] BY: [facility] Gzegkt4258 Bishop Roadblin [place] [id number] Protein [Mass/Vol] 7.0 g/dL Normal 6.0-8.5 [facility] [place] [facility] Work Phone: Comment on above: PATIENT WAS FASTINGP ERFORMED BY: Lab[address] [id number] BY: [facility]Co Xlrcuv7283 [facility] [id number] Sodium [Moles/Vol] 141 mmol/L Normal 134-144 [facility] Internal Medicine Work Phone: Comment on above: PATIENT WAS FASTINGP ERFORMED BY: LabCo[address] [id number] BY: DOROTHY [facility] Yipgwv4414 [facility] [id number] Urea nitrogen [Mass/Vol] 15 mg/dL Normal 8-27 [facility] Work Phone: Comment on above: PATIENT WAS FASTINGP ERFORMED BY: LabCareToSave[address] [id number] BY: DOROTHY LabCoHoboken University Medical CenterZxkavy8067 [facility] [id number] Urea nitrogen/Creatinine [Mass ratio] 15 mg/mg Normal 10-24 [facility] Work Phone: Comment on above: PATIENT WAS FASTINGP ERFORMED BY: iContact[address] [id number] BY: DOROTHY [facility] Eedplu4553 [facility] [id number] MICROALBUMINOrdered By: Syst em Ion Implant Machine Operator on 08-28-2018 Albumin DL <= 20 mg/L (U) [Mass/Vol] 8.0 ug/mL Normal Comprehensiv e Internal Medicine Work Phone: Comment on above: PATIENT WAS FASTINGP ERFORMED BY: iContact[address] [id number] BY: LabStraith [facility] Surgery6370 [facility] [id number] Albumin/Creatinine (U) [Mass ratio] 8.6 {mg/g_creat} Normal 0.0-30.0 [facility] Work Phone: Comment on above: Normal: 0.0 - 30.0 A lbuminuria: 31.0 - 300.0 Clinical albuminuria: >300.0 PATIENT WAS FASTINGP ERFORMED BY: iContact[address] [id number] BY: iContactHoboken University Medical CenterXmrhiv2612 Bishop RoadDublin [place] [id number] Creatinine (U) [Mass/Vol] 92.7 mg/dL Normal [facility] Internal Medicine Work Phone: Comment on above: PATIENT WAS FASTINGP ERFORMED BY: iContact[address] [id number] BY: iContactHoboken University Medical CenterOixtxv9958 Bishop RoadDublin [place] [id number] T3, FREE (TRIDOTHYRONINE) (5 0403)Ordered By: Nutritionist on 08-28-2018 Free T3 [Mass/Vol] 3.2 pg/mL Normal 2.0-4.4 [facility] [place] Internal Medicine Work Phone: Comment on above: PATIENT WAS FASTINGP ERFORMED BY: iContact[address] [id number] BY: iContactJoseph [place] 7220570 Bishop RoadUnc Medical Centerin [place] [id number] T4, FREE (THYROXINE) (78349) Ordered By: Nutritionist on 08-28-2018 Free T4 [Mass/Vol] 1.09 ng/dL Normal 0.82-1.77 [facility] [place] Internal Medicine Work Phone: Comment on above: PATIENT WAS FASTINGP ERFORMED BY: iContact[address] [id number] BY: iContactHoboken University Medical CenterEbrrcw7805 [address] [facility] Hospitalin [place] [id number] TSH (45868)Ordered By: Krowder Ion Implant Machine Operator on 08-28-2018 TSH Qn 1.030 {uIU/mL} Normal 0.450-4.50 0 [facility] Work Phone: Comment on above: PATIENT WAS FASTINGP ERFORMED BY: iContact[address] [id number] BY: iContactHoboken University Medical CenterIgwzmq3912 Bishop RoadDublin [place] [id number] VITAMIN B-12 (CYANOCOBALAMIN ) (59939)Ordered By: Nutritionist on 08-28-2018 Cobalamin (Vitamin B12) [Mass/Vol] 437 pg/mL Normal 232-1245 [facility] Work Phone: Comment on above: PATIENT WAS FASTINGP ERFORMED BY: [employer] ([place])[address] [id number] BY: [employer] Tguoxc2182 [facility] [id number] CREATININE FINGERSTICKOrdere d By: Nutritionist on 06-06-2018 Creatinine [Mass/Vol] 1.0 mg/dL Normal 0.70-1.30 [facility] Work Phone: Comment on above: [facility] LaboratoryPoint of Fjjp[address] [place] [address] GFR/1.73 sq M predicted among non-blacks MDRD (S/P/Bld) [Vol rate/Area] mL/min/{1.73_m2} Normal [facility] Work Phone: Comment on above: [facility] LaboratoryPoint of Zjzu[address] [place], [place] [address] CBC W/AUTO DIFF WBC (98715)O rdered By: Nutritionist on 04-17-2018 Basophils (Bld) [#/Vol] 0.1 {x10E3/uL} Normal 0.0-0.2 [facility] Work Phone: Comment on above: PATIENT WAS FASTINGP ERFORMED BY: [employer] ([place])[address] [id number] BY: iContactHoboken University Medical CenterSmfuhb6002 [facility] [id number] Basophils (Bld) [#/Vol] 0.1 10*3/uL Normal 0.0-0.2 [facility]; [facility] Work Phone: Basophils/100 WBC (Bld) 1 % Normal [facility] Work Phone: Comment on above: PATIENT WAS FASTINGP ERFORMED BY: [employer] ([place])[address] [id number] BY: LabStraith [facility] For [facility] Surgery6370 [address] [facility] [id number] Eosinophils (Bld) [#/Vol] 0.4 {x10E3/uL} Normal 0.0-0.4 [facility] Work Phone: Comment on above: PATIENT WAS FASTINGP ERFORMED BY: [address] [id number] BY: [place] 7958370 [facility] [id number] Eosinophils (Bld) [#/Vol] 0.4 10*3/uL Normal 0.0-0.4 [facility]; [facility] Work Phone: Eosinophils/100 WBC (Bld) 5 % Normal [facility] Work Phone: Comment on above: PATIENT WAS FASTINGP ERFORMED BY: [address] [id number] BY: [place] 7958370 [facility] [id number] Erythrocyte distribution width (RBC) [Ratio] 14.4 % Normal 12.3-15.4 [facility] Work Phone: Comment on above: PATIENT WAS FASTINGP ERFORMED BY: [address] [id number] BY: LabElizabeth Ville 8571170 [facility] [id number] Hematocrit (Bld) [Volume fraction] 46.4 % Normal 37.5-51.0 [facility] Work Phone: Comment on above: PATIENT WAS FASTINGP ERFORMED BY: [address] [id number] BY: [facility]6370 [facility] [id number] Hemoglobin (Bld) [Mass/Vol] 15.9 g/dL Normal 13.0-17.7 [facility] Work Phone: Comment on above: PATIENT WAS FASTINGP ERFORMED BY: [address] [id number] BY: [facility]6370 [facility] [id number] Immature granulocytes (Bld) [#/Vol] 0.0 {x10E3/uL} Normal 0.0-0.1 [facility] Work Phone: Comment on above: PATIENT WAS FASTINGP ERFORMED BY: [address] [id number] BY: LabStraith [facility] Surgery6370 [facility] [id number] Immature granulocytes (Bld) [#/Vol] 0.0 10*3/uL Normal 0.0-0.1 [facility]; [facility] Work Phone: Immature granulocytes/100 WBC (Bld) 0 % Normal [facility] Work Phone: Comment on above: PATIENT WAS FASTINGP ERFORMED BY: [address] [id number] BY: LabStraith [facility] Surgery6370 [facility] [id number] Lymphocytes (Bld) [#/Vol] 1.5 {x10E3/uL} Normal 0.7-3.1 [facility] Work Phone: Comment on above: PATIENT WAS FASTINGP ERFORMED BY: [address] [id number] BY: [facility]6370 [facility] [id number] Lymphocytes (Bld) [#/Vol] 1.5 10*3/uL Normal 0.7-3.1 [facility]; [facility] Work Phone: Lymphocytes/100 WBC (Bld) 19 % Normal [facility] Work Phone: Comment on above: PATIENT WAS FASTINGP ERFORMED BY: [address] [id number] BY: [facility] Zvbccu3456 [facility] [id number] MCH (RBC) [Entitic mass] 31.7 pg Normal 26.6-33.0 [facility] Work Phone: Comment on above: PATIENT WAS FASTINGP ERFORMED BY: [address] [id number] BY: LabElizabeth V[place] 8571170 [facility] [id number] MCHC (RBC) [Mass/Vol] 34.3 g/dL Normal 31.5-35.7 [facility] Work Phone: Comment on above: PATIENT WAS FASTINGP ERFORMED BY: iContact[address] [id number] BY: [place] 7958370 [facility] [id number] MCV (RBC) [Entitic vol] 93 fL Normal 79-97 [facility] Work Phone: Comment on above: PATIENT WAS FASTINGP ERFORMED BY: [employer] [id number] BY: [place] 7958370 [facility] [id number] Monocytes (Bld) [#/Vol] 0.5 {x10E3/uL} Normal 0.1-0.9 [facility] Work Phone: Comment on above: PATIENT WAS FASTINGP ERFORMED BY: [employer] [id number] BY: [facility]6370 [facility] [id number] Monocytes (Bld) [#/Vol] 0.5 10*3/uL Normal 0.1-0.9 [facility]; [facility] Work Phone: Monocytes/100 WBC (Bld) 7 % Normal [facility] Work Phone: Comment on above: PATIENT WAS FASTINGP ERFORMED BY: [employer] [id number] BY: LabCo Lyufvz2289 Bishop RoadDuin [place] [id number] Neutrophils (Bld) [#/Vol] 5.2 {x10E3/uL} Normal 1.4-7.0 [facility] Work Phone: Comment on above: PATIENT WAS FASTINGP ERFORMED BY: Lab[address] [id number] BY: LabCo Nehled1215 Bishop RoadAtrium Health Pineville [id number] Neutrophils (Bld) [#/Vol] 5.2 10*3/uL Normal 1.4-7.0 [facility]; [facility] Work Phone: Neutrophils/100 WBC (Bld) 68 % Normal [facility] Work Phone: Comment on above: PATIENT WAS FASTINGP ERFORMED BY: Lab[address] [id number] BY: [facility]Co Kkjtij9692 [address] [facility] [id number] Platelets (Bld) [#/Vol] 199 {x10E3/uL} Normal 150-379 [facility] Work Phone: Comment on above: PATIENT WAS FASTINGP ERFORMED BY: [address] [id number] BY: LabStraith [facility] Surgery6370 [facility] [id number] Platelets (Bld) [#/Vol] 199 10*3/uL Normal 150-379 [facility]; [facility] Work Phone: RBC (Bld) [#/Vol] 5.01 {x10E6/uL} Normal 4.14-5.80 [facility] Internal Medicine Work Phone: Comment on above: PATIENT WAS FASTINGP ERFORMED BY: [address] [id number] BY: LabDoctors Hospital Of SpringfieldOckjyi8466 [facility] [id number] RBC (Bld) [#/Vol] 5.01 10*6/uL Normal 4.14-5.80 [facility] Internal Medicine; [facility] Work Phone: WBC (Bld) [#/Vol] 7.6 {x10E3/uL} Normal 3.4-10.8 [facility] Centerensive Internal Medicine Work Phone: Comment on above: PATIENT WAS FASTINGP ERFORMED BY: tribalX [address] [id number] BY: iContactHoboken University Medical CenterFuhuiv3148 [facility] [id number] WBC (Bld) [#/Vol] 7.6 10*3/uL Normal 3.4-10.8 [facility] [place] Internal [facility]; [facility] Work Phone: LIPOPROTEIN, BLD, BY NMR (83 704)Ordered By: Nutritionist on 04-17-2018 Cholesterol [Mass/Vol] 185 mg/dL Normal 100-199 [facility] Work Phone: Comment on above: PATIENT WAS FASTINGP ERFORMED BY: [employer] ([place])[address] [id number] BY: SavorfullHoboken University Medical CenterFytatb1556 [facility] [id number] Cholesterol in HDL [Mass/Vol] 34 mg/dL Abnormal [facility] Work Phone: Comment on above: PATIENT WAS FASTINGP ERFORMED BY: tribalX [address] [id number] BY: iContactHoboken University Medical CenterFzciwg6926 [facility] [id number] Cholesterol in LDL [Mass/Vol] 111 mg/dL Abnormal 0-99 [facility] Work Phone: Comment on above: . Optimal < 100 Abov e optimal 100 - 129 Borderline 130 - 159 High 160 - 189 Very high > 189 .LDL-C is inaccurate if patient is non-fasting. PATIENT WAS FASTINGP ERFORMED BY: [employer] ([place])[address] [id number] BY: iContact Icbrwc3989 [facility] [id number] Lipoprotein.alpha [Moles/Vol] 26.3 umol/L Abnormal [facility] Work Phone: Comment on above: PATIENT WAS FASTINGP ERFORMED BY: iContact[address] [id number] BY: iContact Ovsnvw4593 [facility] [id number] Lipoprotein.beta.sub particle [Entitic length] 19.8 nm Normal [facility] Work Phone: Comment on above: INTERPRETATIVE INFORMATION PARTICLE CONCENTRATION AND SIZE <--Lower CVD Risk Higher CVD Risk--> LDL AND HDL PARTICLES Percentile [...] were developed and their performance characteristicsdetermined by [employer]. These assays have not been cleared by [place] Food and Drug Administration. The clinical utility of theselaboratory values have not been fully established. PATIENT WAS FASTINGP ERFORMED BY: iContact[address] [id number] BY: LabCo Biauha9790 [facility] [id number] Lipoprotein.beta.sub particle [Moles/Vol] 1793 nmol/L Abnormal Comprehensi ve Internal Medicine Work Phone: Comment on above: Low < 1000 Moderate 1000 - 1299 Borderline-High 1300 - 1599 High 1600 - 2000 Very High > 2000 PATIENT WAS FASTINGP ERFORMED BY: LabCo[address] [id number] BY: LabCo Qhyyyh2990 [facility] [id number] Lipoprotein.beta.sub particle.small [Moles/Vol] 1324 nmol/L Abnormal [facility] Work Phone: Comment on above: PATIENT WAS FASTINGP ERFORMED BY: LabCareToSave[address] [id number] BY: LabCoHoboken University Medical CenterPwraki1815 [facility] [id number] Triglyceride [Mass/Vol] 199 mg/dL Abnormal 0-149 [facility] Work Phone: Comment on above: PATIENT WAS FASTINGP ERFORMED BY: [employer] [id number] BY: LabCoHoboken University Medical CenterFkwyrh5765 [facility] [id number] METABOLIC PANEL, COMPREHENSI VE (20079)Ordered By: Nutritionist on 04-17-2018 Albumin [Mass/Vol] 4.5 g/dL Normal 3.5-4.8 [facility] Internal Medicine Work Phone: Comment on above: PATIENT WAS FASTINGP ERFORMED BY: [employer] [id number] BY: LabStraith [facility] Surgery6370 [facility] [id number] Albumin/Globulin [Mass ratio] 2.0 {ratio} Normal 1.2-2.2 [facility] Work Phone: Comment on above: PATIENT WAS FASTINGP ERFORMED BY: [address] [id number] BY: LabCoHoboken University Medical CenterDtgmmo4980 [facility] [id number] ALP [Catalytic activity/Vol] 75 [iU]/L Normal 39-117 [facility] Work Phone: Comment on above: PATIENT WAS FASTINGP ERFORMED BY: [address] [id number] BY: LabCoJoseph Ville 7220570 [facility] [id number] ALP [Catalytic activity/Vol] 75 U/L Normal 39-117 [facility]; [facility] Work Phone: ALT [Catalytic activity/Vol] 12 [iU]/L Normal 0-44 [facility] Work Phone: Comment on above: PATIENT WAS FASTINGP ERFORMED BY: iContact[address] [id number] BY: LabElizabeth Ville 8571170 [facility] [id number] ALT [Catalytic activity/Vol] 12 U/L Normal 0-44 [facility]; [facility] Work Phone: AST [Catalytic activity/Vol] 17 [iU]/L Normal 0-40 [facility] Work Phone: Comment on above: PATIENT WAS FASTINGP ERFORMED BY: [employer] [id number] BY: LabStraith [facility] Surgery6370 [facility] [id number] AST [Catalytic activity/Vol] 17 U/L Normal 0-40 [facility]; [facility] Work Phone: Bilirubin [Mass/Vol] 0.5 mg/dL Normal 0.0-1.2 Comp rehensive Internal Medicine Work Phone: Comment on above: PATIENT WAS FASTINGP ERFORMED BY: [address] [id number] BY: CB [facility] Kfufmh1474 Bishop RoadDublin [place] [id number] Calcium [Mass/Vol] 9.3 mg/dL Normal 8.6-10.2 [facility] Internal [facility] Work Phone: Comment on above: PATIENT WAS FASTINGP ERFORMED BY: BN [facility] Yfvfuodbsd7[address] [id number] BY: CB [facility] Dgqcma1739 [address] RoadDublin [place] [id number] Chloride [Moles/Vol] 102 mmol/L Normal 96-106 Comp [facility] hospitalensive Internal Medicine Work Phone: Comment on above: PATIENT WAS FASTINGP ERFORMED BY: [facility] [address] [id number] BY: DOROTHY [facility] Rnluaa2222 Bishop RoadDublin [place] [id number] CO2 [Moles/Vol] 25 mmol/L Normal 20-[address] [facility] Internal Medicine Work Phone: Comment on above: PATIENT WAS FASTINGP ERFORMED BY: [facility] [address] [id number] BY: DOROTHY [facility] Rjspcx3460 [address] RoadDublin [place] [id number] Creatinine [Mass/Vol] 1.18 mg/dL Normal 0.76-1.27 [facility] Work Phone: Comment on above: PATIENT WAS FASTINGP ERFORMED BY: [facility] [address] [id number] BY: CB [facility] Lmkgix4084 [address] RoadDublin [place] [id number] GFR/1.73 sq M predicted among blacks CKD-EPI (S/P/Bld) [Vol rate/Area] 71 mL/min/1.73 Normal [facility] Work Phone: Comment on above: PATIENT WAS FASTINGP ERFORMED BY: [facility] [address] [id number] BY: CB [facility] Rhszkm4615 [address] RoadDublin [place] [id number] GFR/1.73 sq M predicted among non-blacks CKD-EPI (S/P/Bld) [Vol rate/Area] 62 mL/min/1.73 Normal [facility] Work Phone: Comment on above: PATIENT WAS FASTINGP ERFORMED BY: Lab[address] [id number] BY: LabCo Cilogr3949 [address] Roadblin [place] [id number] Globulin (S) [Mass/Vol] 2.2 g/dL Normal 1.5-4.5 [facility] Work Phone: Comment on above: PATIENT WAS FASTINGP ERFORMED BY: Lab[address] [id number] BY: DOROTHY [facility] Otryrx7167 [address] [facility] Hospitalin [place] [id number] Glucose [Mass/Vol] 78 mg/dL Normal 65-99 [facility] Internal Medicine Work Phone: Comment on above: PATIENT WAS FASTINGP ERFORMED BY: Lab[address] [id number] BY: LabEllis [facility] Hmmzpg6548 [address] Roane General Hospitalblin [place] [id number] Potassium [Moles/Vol] 5.1 mmol/L Normal 3.5-5.2 [facility] Internal Medicine Work Phone: Comment on above: PATIENT WAS FASTINGP ERFORMED BY: Lab[address] [id number] BY: [facility] Ugakyp1808 [address] RoadDublin [place] [id number] Protein [Mass/Vol] 6.7 g/dL Normal 6.0-8.5 [facility] [place] Internal Medicine Work Phone: Comment on above: PATIENT WAS FASTINGP ERFORMED BY: Lab[address] [id number] BY: [facility] Slsrpr9368 [address] RoadDublin [place] [id number] Sodium [Moles/Vol] 141 mmol/L Normal 134-144 Compre hensive Internal Medicine Work Phone: Comment on above: PATIENT WAS FASTINGP ERFORMED BY: [employer] [address] [id number] BY: [facility] Zaikva3719 [address] RoadDublin [place] [id number] Urea nitrogen [Mass/Vol] 16 mg/dL Normal 8-27 [facility] Work Phone: Comment on above: PATIENT WAS FASTINGP ERFORMED BY: Qritiqrrp [address] [id number] BY: Savorfullrp Vwwklg0543 [address] RoadDublin [place] [id number] Urea nitrogen/Creatinine [Mass ratio] 14 mg/mg Normal 10-24 [facility] Work Phone: Comment on above: PATIENT WAS FASTINGP ERFORMED BY: Qritiqrrp Pouohpykjs[address] [id number] BY: [employer] Ktcroo5283 [address] RoadDublin [place] [id number] MICROALBUMINOrdered By: Syst em Ion Implant Machine Operator on 04-17-2018 Albumin DL <= 20 mg/L (U) [Mass/Vol] 8.7 ug/mL Normal Comprehensiv e Internal Medicine Work Phone: Comment on above: PERFORMED BY: [employer] Qszomg2758 [address] RoadDublin [place] [id number] Albumin/Creatinine (U) [Mass ratio] 7.5 {mg/g_creat} Normal 0.0-30.0 [facility] Work Phone: Comment on above: PERFORMED BY: [employer] Bxeoea9223 [address] RoadDublin [place] [id number] Creatinine (U) [Mass/Vol] 116.0 mg/dL Normal [facility] Work Phone: Comment on above: PERFORMED BY: [employer] Jggocz6303 [address] RoadDublin [place] [id number] Microscopic ExaminationOrder ed By: Nutritionist on 04-17-2018 Bacteria LM.HPF (Urine sed) [#/Area] None seen Normal Comprehensi ve Internal Medicine Work Phone: Comment on above: PERFORMED BY: [employer]70 adRiseFirstHealth [facility] [id number] Epithelial cells LM.HPF (Urine sed) [#/Area] 0-10 Normal 0 - 10 [facility] Work Phone: Comment on above: PERFORMED BY: Bold TechnologiesWilliamson ARH Hospital [id number] Mucus Ql (Urine sed) Present Normal Comp rehensive Internal Medicine Work Phone: Comment on above: PERFORMED BY: Anuway CorporationFirstHealth [facility] [id number] RBC LM.HPF (Urine sed) [#/Area] 0-2 Normal 0 - 2 [facility] Work Phone: Comment on above: PERFORMED BY: Anu[employer] CorporationFirstHealth [facility] [place] [id number] WBC LM.HPF (Urine sed) [#/Area] 0-5 Normal 0 - 5 [facility] Work Phone: Comment on above: PERFORMED BY: Anuway CorporationFirstHealth [facility] [place] [id number] TSH ([id number])Ordered By: Designlabe m Ion Implant Machine Operator on 04-17-2018 TSH Qn 0.979 {uIU/mL} Normal 0.450-4.50 0 [facility] Work Phone: Comment on above: PATIENT WAS FASTINGP ERFORMED BY: [facility] Qppxykkrjq1948 [facility] [id number] BY: [employer] [facility] Izibvw6342 adRiseFirstHealth [facility] [place] [id number] URINALYSIS, W/ MICRO ([id number]) Ordered By: Nutritionist on 04-17-2018 Appearance (U) Clear Normal Comprehens anselmo Internal Medicine Work Phone: Comment on above: PERFORMED BY: Anu[employer] CorporationFirstHealth [facility] [place] [id number] Bilirubin Ql (U) Negative Normal Comprehe nsive Internal Medicine Work Phone: Comment on above: PERFORMED BY: [employer]chMe6[address] RoadDublin [place] [id number] Bilirubin Ql (U) Negative Normal Comprehe nsive Internal Medicine; [facility] Work Phone: Color (U) Yellow Normal [facility] Work Phone: Comment on above: PERFORMED BY: MerchMe6[address] RoadDublin [place] [id number] Glucose Ql (U) Negative Normal Comprehens anselmo Internal Medicine Work Phone: Comment on above: PERFORMED BY: [employer] RoadDublin [place] [id number] Glucose Ql (U) Negative Normal Comprehens anselmo Internal Medicine; [facility] Work Phone: Hemoglobin Ql (U) Negative Normal Compreh ensive Internal Medicine Work Phone: Comment on above: PERFORMED BY: [employer]chMe6[address] RoadDublin [place] [id number] Hemoglobin Ql (U) Negative Normal Compreh ensive Internal Medicine; [facility] Work Phone: Ketones Ql (U) Negative Normal Comprehens anselmo Internal Medicine Work Phone: Comment on above: PERFORMED BY: [employer]70 [address] RoadDublin [place] [id number] Ketones Ql (U) Negative Normal Comprehens anselmo Internal Medicine; [facility] Work Phone: Leukocyte esterase Test strip Ql (U) Negative Normal [facility] Work Phone: Comment on above: PERFORMED BY: [employer]70 [address] RoadDublin [place] [id number] Leukocyte esterase Test strip Ql (U) Negative Normal [facility]; [facility] Work Phone: Microscopic observation LM Nom (Urine sed) MICRON Normal [facility] Work Phone: Comment on above: Microscopic follows if indicated. PERFORMED BY: bTendoox Night Node Softwareblin [place] [id number] Microscopic observation LM Nom (Urine sed) See below: Normal [facility] Work Phone: Comment on above: Microscopic was clayton cated and was performed. PERFORMED BY: MerchMe6[address] RoadDublin [place] [id number] Nitrite Ql (U) Negative Normal Comprehens anselmo [facility] Work Phone: Comment on above: PERFORMED BY: [employer] [employer] [id number] Nitrite Ql (U) Negative Normal Comprehens [facility]; [facility] Work Phone: pH (U) 6.0 [pH] Normal 5.0-7.5 [facility] Work Phone: Comment on above: PERFORMED BY: [employer] [place] [employer] [place] [id number] Protein Ql (U) Negative Normal Comprehens ansemlo Internal Medicine Work Phone: Comment on above: PERFORMED BY: MerchMe6370 [address] [employer] [id number] Protein Ql (U) Negative Normal Comprehens anselmo [facility]; [facility] Work Phone: Specific gravity (U) [Rel density] 1.018 1 Normal 1.005-1.03 0 [facility] Work Phone: Comment on above: PERFORMED BY: MerchMe6370 [place] [employer] [id number] Urobilinogen (U) [Mass/Vol] 0.2 mg/dL Normal 0.2-1.0 [facility]; [facility] Work Phone: Urobilinogen Test strip (U) [Mass/Vol] 0.2 mg/dL Normal 0.2-1.0 Comprehensi ve Internal Medicine Work Phone: Comment on above: PERFORMED BY: WordWatch70 [employer]ise[employer] [place] [id number] VITAMIN B-12 (CYANOCOBALAMIN ) (39867)Ordered By: Nutritionist on 04-17-2018 Cobalamin (Vitamin B12) [Mass/Vol] 579 pg/mL Normal 232-1245 [facility] Work Phone: Comment on above: PATIENT WAS FASTINGP ERFORMED BY: [employer] ([place])[address] [id number] BY: LabVoIPshield Systems6370 [facility] [id number] Blood Glucose , Office ([phone])Ordered By: Denisse Alvarado on 12-19-2017 Glucose Glucometer (BldC) [Moles/Vol] 89 1 Normal [facility] Work Phone: HgA1C , Office (71497)Ordere d By: Josselin Sanchez on 12-19-2017 HbA1c (Bld) [Mass fraction] 5.2 % Normal 4.6 - 7.1 [facility] Work Phone: CALCIFIDIOL (65185) VIT D 25 Ordered By: Nutritionist on 11-27-2017 25-Hydroxyvitamin D2+25-Hydroxyvitamin D3 [Mass/Vol] 25.7 ng/mL Abnormal 30.0-100.0 [facility] Work Phone: Comment on above: Vitamin D deficiency has been defined by the Bennett ofMedicine and an Endocrine Society practice guideline as alevel of serum 25-OH vitamin D less than 20 ng/mL (1,2).The Endocrine Society went on to further define vitamin Dinsufficiency as a level between 21 and 29 ng/mL (2).1. IOM (Bennett of Medicine). 2010. Dietary reference intakes for calcium and D. [place]: The National Academies Press.2. Luca MF, Elena NC, Vini ALVAREZ, et al. Evaluation, treatment, and prevention of vitamin D deficiency: an Endocrine Society clinical practice guideline. JCEM. 2010; 96(7):1911-30. PATIENT WAS FASTINGP ERFORMED BY: [employer] ([place])[address] [id number] BY: [employer] Rwfjit0938 [facility] [id number] CBC W/AUTO DIFF WBC (14168)O rdered By: Nutritionist on 11-27-2017 Basophils (Bld) [#/Vol] 0.1 {x10E3/uL} Normal 0.0-0.2 [facility] Work Phone: Comment on above: PATIENT WAS FASTINGP ERFORMED BY: Beauty Works[address] [id number] BY: iContactJoseph Ville 7220570 [facility] [id number] Basophils (Bld) [#/Vol] 0.1 10*3/uL Normal 0.0-0.2 [facility]; [facility] Work Phone: Basophils/100 WBC (Bld) 1 % Normal [facility] Work Phone: Comment on above: PATIENT WAS FASTINGP ERFORMED BY: iContact[address] [id number] BY: iContactJoseph [place] 7220570 [facility] [id number] Eosinophils (Bld) [#/Vol] 0.8 {x10E3/uL} Abnormal 0.0-0.4 [facility] Work Phone: Comment on above: PATIENT WAS FASTINGP ERFORMED BY: iContact[address] [id number] BY: iContactJoseph [place] 7220570 [facility] [id number] Eosinophils (Bld) [#/Vol] 0.8 10*3/uL Abnormal 0.0-0.4 [facility]; [facility] Work Phone: Eosinophils/100 WBC (Bld) 9 % Normal [facility] Work Phone: Comment on above: PATIENT WAS FASTINGP ERFORMED BY: [employer] [id number] BY: [facility]6370 [facility] [id number] Erythrocyte distribution width (RBC) [Ratio] 14.0 % Normal 12.3-15.4 [facility] Work Phone: Comment on above: PATIENT WAS FASTINGP ERFORMED BY: LabCo[address] [id number] BY: DOROTHY LabCo Bqaowo7586 [facility] [id number] Hematocrit (Bld) [Volume fraction] 48.5 % Normal 37.5-51.0 [facility] Work Phone: Comment on above: PATIENT WAS FASTINGP ERFORMED BY: LabCo[address] [id number] BY: DOROTHY LabCo Isczap1536 [facility] [id number] Hemoglobin (Bld) [Mass/Vol] 16.6 g/dL Normal 13.0-17.7 [facility] Work Phone: Comment on above: PATIENT WAS FASTINGP ERFORMED BY: iContact[address] [id number] BY: DOROTHY LabCo Gfwjyy6419 [facility] [id number] Immature granulocytes (Bld) [#/Vol] 0.0 {x10E3/uL} Normal 0.0-0.1 [facility] Work Phone: Comment on above: PATIENT WAS FASTINGP ERFORMED BY: [employer] [id number] BY: [facility]Ell[facility] Ojxzxf7122 [facility] [id number] Immature granulocytes (Bld) [#/Vol] 0.0 10*3/uL Normal 0.0-0.1 [facility]; [facility] Work Phone: Immature granulocytes/100 WBC (Bld) 0 % Normal [facility] Work Phone: Comment on above: PATIENT WAS FASTINGP ERFORMED BY: [address] [id number] BY: [facility]Ell[facility] Zrxftz0193 [facility] [id number] Lymphocytes (Bld) [#/Vol] 1.6 {x10E3/uL} Normal 0.7-3.1 [facility] Work Phone: Comment on above: PATIENT WAS FASTINGP ERFORMED BY: [address] [id number] BY: LabStraith [facility] Surgery6370 [facility] [id number] Lymphocytes (Bld) [#/Vol] 1.6 10*3/uL Normal 0.7-3.1 [facility]; [facility] Work Phone: Lymphocytes/100 WBC (Bld) 17 % Normal [facility] Work Phone: Comment on above: PATIENT WAS FASTINGP ERFORMED BY: [address] [id number] BY: LabElizabeth Ville 8571170 [facility] [id number] MCH (RBC) [Entitic mass] 32.5 pg Normal 26.6-33.0 [facility] Work Phone: Comment on above: PATIENT WAS FASTINGP ERFORMED BY: Lab[address] [id number] BY: LabStra[facility] Surgery6370 [facility] [id number] MCHC (RBC) [Mass/Vol] 34.2 g/dL Normal 31.5-35.7 [facility] Work Phone: Comment on above: PATIENT WAS FASTINGP ERFORMED BY: Lab[address] [id number] BY: LabElizabeth [place]ille 8571170 [facility] [id number] MCV (RBC) [Entitic vol] 95 fL Normal 79-97 [facility] Work Phone: Comment on above: PATIENT WAS FASTINGP ERFORMED BY: Lab[address] [id number] BY: LabCo Gaudaf0725 Bishop RoadDublin [place] [id number] Monocytes (Bld) [#/Vol] 0.5 {x10E3/uL} Normal 0.1-0.9 [facility] Work Phone: Comment on above: PATIENT WAS FASTINGP ERFORMED BY: [address] [id number] BY: LabEll[facility] Bwlcjc1018 Bishop RoadDublin [place] [id number] Monocytes (Bld) [#/Vol] 0.5 10*3/uL Normal 0.1-0.9 [facility]; [facility] Work Phone: Monocytes/100 WBC (Bld) 5 % Normal [facility] Work Phone: Comment on above: PATIENT WAS FASTINGP ERFORMED BY: [address] [id number] BY: [place] 7958370 Bishop RoadDublin [place] [id number] Neutrophils (Bld) [#/Vol] 6.3 {x10E3/uL} Normal 1.4-7.0 [facility] Work Phone: Comment on above: PATIENT WAS FASTINGP ERFORMED BY: [address] [id number] BY: [facility]6370 [address] RoadDublin [place] [id number] Neutrophils (Bld) [#/Vol] 6.3 10*3/uL Normal 1.4-7.0 [facility]; [facility] Work Phone: Neutrophils/100 WBC (Bld) 68 % Normal [facility] Work Phone: Comment on above: PATIENT WAS FASTINGP ERFORMED BY: [address] [id number] BY: LabEll[facility] Vfbsow4198 [address] RoadDublin [place] [id number] Platelets (Bld) [#/Vol] 223 {x10E3/uL} Normal 150-379 [facility] Work Phone: Comment on above: PATIENT WAS FASTINGP ERFORMED BY: iContact[address] [id number] BY: iContactHoboken University Medical CenterHizpth5805 [facility] [id number] Platelets (Bld) [#/Vol] 223 10*3/uL Normal 150-379 [facility]; [facility] Work Phone: RBC (Bld) [#/Vol] 5.10 {x10E6/uL} Normal 4.14-5.80 [facility] Internal Medicine Work Phone: Comment on above: PATIENT WAS FASTINGP ERFORMED BY: tribalX [address] [id number] BY: iContactHoboken University Medical CenterUdlcbm2835 [facility] [id number] RBC (Bld) [#/Vol] 5.10 10*6/uL Normal 4.14-5.80 [facility] Internal Medicine; [facility] Work Phone: WBC (Bld) [#/Vol] 9.2 {x10E3/uL} Normal 3.4-10.8 [facility] Internal Medicine Work Phone: Comment on above: PATIENT WAS FASTINGP ERFORMED BY: iContact[address] [id number] BY: iContactHoboken University Medical CenterQweepl1297 [facility] [id number] WBC (Bld) [#/Vol] 9.2 10*3/uL Normal 3.4-10.8 [facility] [place] [facility]; [facility] Work Phone: LIPOPROTEIN, BLD, BY NMR (83 701)Ordered By: Nutritionist on 11-27-2017 Cholesterol [Mass/Vol] 181 mg/dL Normal 100-199 [facility] Work Phone: Comment on above: PATIENT WAS FASTINGP ERFORMED BY: Qritiqr[address] [id number] BY: iContactJoseph [place] 7220570 [facility] [id number] Cholesterol in HDL [Mass/Vol] 34 mg/dL Abnormal [facility] Work Phone: Comment on above: PATIENT WAS FASTINGP ERFORMED BY: iContact[address] [id number] BY: iContact Gvdfio3297 [facility] [id number] Cholesterol in LDL [Mass/Vol] 114 mg/dL Abnormal 0-99 [facility] Work Phone: Comment on above: . Optimal < 100 Abov e optimal 100 - 129 Borderline 130 - 159 High 160 - 189 Very high > 189 .LDL-C is inaccurate if patient is non-fasting. PATIENT WAS FASTINGP ERFORMED BY: Qritiqr[address] [id number] BY: iContact Jaoliv0558 [facility] [id number] Lipoprotein.alpha [Moles/Vol] 25.7 umol/L Abnormal [facility] Work Phone: Comment on above: PATIENT WAS FASTINGP ERFORMED BY: Qritiqr[address] [id number] BY: iContactJoseph [place] 7220570 [facility] [id number] Lipoprotein.beta.sub particle [Entitic length] 20.4 nm Normal [facility] Work Phone: Comment on above: INTERPRETATIVE INFORMATION PARTICLE CONCENTRATION AND SIZE <--Lower CVD Risk Higher CVD Risk--> LDL AND HDL PARTICLES Percentile [...] were developed and their performance characteristicsdetermined by [employer]. These assays have not been cleared by [place] Food and Drug Administration. The clinical utility of theselaboratory values have not been fully established. PATIENT WAS FASTINGP ERFORMED BY: [employer] ([place])ton1447 [facility] [id number] BY: TappInAtrium Health Pineville [id number] Lipoprotein.beta.sub particle [Moles/Vol] 1492 nmol/L Abnormal Comprehensi Internal Medicine Work Phone: Comment on above: Low < 1000 Moderate 1000 - 1299 Borderline-High 1300 - 1599 High 1600 - 2000 Very High > 2000 PATIENT WAS FASTINGP ERFORMED BY: [employer] [place] [address] [id number] BY: [employer]70 CMS Global TechnologiesAtrium Health Pineville [id number] Lipoprotein.beta.sub particle.small [Moles/Vol] 652 nmol/L Abnormal [facility] Work Phone: Comment on above: PATIENT WAS FASTINGP ERFORMED BY: adicate timeads1447 [facility] [id number] BY: [employer]70 [place] [employer] of CommerceAtrium Health Pineville [id number] Triglyceride [Mass/Vol] 165 mg/dL Abnormal 0-149 [facility] Work Phone: Comment on above: PATIENT WAS FASTINGP ERFORMED BY: ThundersoftCareToSave[address] [id number] BY: [facility] Gnbcxd0020 [address] RoadDublin [place] [id number] METABOLIC PANEL, COMPREHENSI VE (31089)Ordered By: Nutritionist on 11-27-2017 Albumin [Mass/Vol] 4.4 g/dL Normal 3.5-4.8 [facility] [place] [facility] Work Phone: Comment on above: PATIENT WAS FASTINGP ERFORMED BY: Lab[address] [id number] BY: LabCo Pxtgox7217 Bishop RoadDublin [place] [id number] Albumin/Globulin [Mass ratio] 1.9 {ratio} Normal 1.2-2.2 [facility] Work Phone: Comment on above: PATIENT WAS FASTINGP ERFORMED BY: Beauty Works[address] [id number] BY: LabEll[facility] Tzjbnd6182 [address] RoadDublin [place] [id number] ALP [Catalytic activity/Vol] 89 [iU]/L Normal 39-117 [facility] Work Phone: Comment on above: PATIENT WAS FASTINGP ERFORMED BY: iContact[address] [id number] BY: LabCo Snlara5657 [address] RoadDublin [place] [id number] ALP [Catalytic activity/Vol] 89 U/L Normal 39-117 [facility]; [facility] Work Phone: ALT [Catalytic activity/Vol] 9 [iU]/L Normal 0-44 [facility] Work Phone: Comment on above: PATIENT WAS FASTINGP ERFORMED BY: [employer] [id number] BY: Lab[facility] Xsuoxo0835 [address] RoadDublin [place] [id number] ALT [Catalytic activity/Vol] 9 U/L Normal 0-44 [facility]; [facility] Work Phone: AST [Catalytic activity/Vol] 10 [iU]/L Normal 0-40 [facility] Work Phone: Comment on above: PATIENT WAS FASTINGP ERFORMED BY: [facility] [address] [id number] BY: DOROTHY [facility] Hvcebv2049 Bishop RoadDublin [place] [id number] AST [Catalytic activity/Vol] 10 U/L Normal 0-40 [facility]; [facility] Work Phone: Bilirubin [Mass/Vol] 0.5 mg/dL Normal 0.0-1.2 Comp rehensive Internal Medicine Work Phone: Comment on above: PATIENT WAS FASTINGP ERFORMED BY: [facility] [address] [id number] BY: DOROTHY [facility] Oxqdvv3499 Bishop RoadAtrium Health Pineville [id number] Calcium [Mass/Vol] 8.9 mg/dL Normal 8.6-10.2 [facility] [place] [facility] Work Phone: Comment on above: PATIENT WAS FASTINGP ERFORMED BY: [facility] [address] [id number] BY: DOROTHY [facility] Mriwmt7712 Bishop RoadDuin [place] [id number] Chloride [Moles/Vol] 101 mmol/L Normal 96-106 Comp [facility] hospitalensive Internal Medicine Work Phone: Comment on above: PATIENT WAS FASTINGP ERFORMED BY: [facility] [address] [id number] BY: DOROTHY [facility] Erexpx9297 [address] RoadDublin [place] [id number] CO2 [Moles/Vol] 26 mmol/L Normal 18-29 Com[facility]hen [facility] Internal Medicine Work Phone: Comment on above: PATIENT WAS FASTINGP ERFORMED BY: [facility] [address] [id number] BY: [facility] Xllbll0359 [address] RoadDublin [place] [id number] Creatinine [Mass/Vol] 0.98 mg/dL Normal 0.76-1.27 [facility] Work Phone: Comment on above: PATIENT WAS FASTINGP ERFORMED BY: LabCareToSave[address] [id number] BY: [facility] Npvmew8308 [address] RoadDublin [place] [id number] GFR/1.73 sq M predicted among blacks CKD-EPI (S/P/Bld) [Vol rate/Area] 89 mL/min/1.73 Normal [facility] Work Phone: Comment on above: PATIENT WAS FASTINGP ERFORMED BY: iContact[address] [id number] BY: Lab[facility] Auxfuh7581 [address] RoadDuin [place] [id number] GFR/1.73 sq M predicted among non-blacks CKD-EPI (S/P/Bld) [Vol rate/Area] 77 mL/min/1.73 Normal [facility] Work Phone: Comment on above: PATIENT WAS FASTINGP ERFORMED BY: iContact[address] [id number] BY: [facility] Lodbgi6621 [facility] [id number] Globulin (S) [Mass/Vol] 2.3 g/dL Normal 1.5-4.5 [facility] Work Phone: Comment on above: PATIENT WAS FASTINGP ERFORMED BY: iContact[address] [id number] BY: [facility] Vctyxo9985 [facility] [id number] Glucose [Mass/Vol] 74 mg/dL Normal 65-99 [facility] Work Phone: Comment on above: PATIENT WAS FASTINGP ERFORMED BY: LabCareToSave[address] [id number] BY: DOROTHY [facility] Appiuy3179 [address] RoadDublin [place] [id number] Potassium [Moles/Vol] 4.6 mmol/L Normal 3.5-5.2 [facility] Internal Medicine Work Phone: Comment on above: PATIENT WAS FASTINGP ERFORMED BY: [facility] [address] [id number] BY: DOROTHY [facility] Wuvyyo4374 [address] RoadDublin [place] [id number] Protein [Mass/Vol] 6.7 g/dL Normal 6.0-8.5 [facility] Work Phone: Comment on above: PATIENT WAS FASTINGP ERFORMED BY: [facility] [address] [id number] BY: DOROTHY [facility] Eobfsg4589 [address] RoadDublin [place] [id number] Sodium [Moles/Vol] 144 mmol/L Normal 134-144 [facility] Work Phone: Comment on above: PATIENT WAS FASTINGP ERFORMED BY: [facility] [address] [id number] BY: DOROTHY [facility] Kduuhh2443 [address] RoadDublin [place] [id number] Urea nitrogen [Mass/Vol] 18 mg/dL Normal 8-27 [facility] Work Phone: Comment on above: PATIENT WAS FASTINGP ERFORMED BY: [facility] [address] [id number] BY: DOROTHY [facility] Vzzegr1751 [address] RoadDublin [place] [id number] Urea nitrogen/Creatinine [Mass ratio] 18 mg/mg Normal 10-24 [facility] Work Phone: Comment on above: PATIENT WAS FASTINGP ERFORMED BY: [facility] [address] [id number] BY: DOROTHY [facility] Qbqajw8255 [address] RoadDublin [place] [id number] MICROALBUMINOrdered By: Syst em Ion Implant Machine Operator on 11-27-2017 Albumin DL <= 20 mg/L (U) [Mass/Vol] 8.0 ug/mL Normal Comprehensiv e Internal Medicine Work Phone: Comment on above: PATIENT WAS FASTINGP ERFORMED BY: iContact[address] [id number] BY: DOROTHY [facility] Qvxxnl8711 [address] RoadDublin [place] [id number] Albumin/Creatinine (U) [Mass ratio] 8.8 {mg/g_creat} Normal 0.0-30.0 [facility] Work Phone: Comment on above: PATIENT WAS FASTINGP ERFORMED BY: Lab[address] [id number] BY: DOROTHY [facility] Udwgop4542 [address] RoadDublin [place] [id number] Creatinine (U) [Mass/Vol] 91.2 mg/dL Normal [facility] Work Phone: Comment on above: PATIENT WAS FASTINGP ERFORMED BY: iContact[address] [id number] BY: Lab[facility] Caznka7768 [address] [facility] Hospitalin [place] [id number] Microscopic ExaminationOrder ed By: Nutritionist on 11-27-2017 Bacteria LM.HPF (Urine sed) [#/Area] None seen Normal Comprehensi ve Internal Medicine Work Phone: Comment on above: PATIENT WAS FASTINGP ERFORMED BY: LabCareToSave[address] [id number] BY: [facility] Rwosmv4087 [address] RoadDublin [place] [id number] Epithelial cells LM.HPF (Urine sed) [#/Area] 0-10 Normal 0 - 10 [facility] Work Phone: Comment on above: PATIENT WAS FASTINGP ERFORMED BY: [employer] [id number] BY: LabCoHoboken University Medical CenterSafctq1462 [facility] [id number] Mucus Ql (Urine sed) Present Normal Comp rehensive Internal Medicine Work Phone: Comment on above: PATIENT WAS FASTINGP ERFORMED BY: Lab[address] [id number] BY: LabStraith Hospital For Special Surgery6370 [facility] [id number] RBC LM.HPF (Urine sed) [#/Area] None seen Normal 0 - 2 [facility] Work Phone: Comment on above: PATIENT WAS FASTINGP ERFORMED BY: [employer] [id number] BY: [place] 7958370 [facility] [id number] WBC LM.HPF (Urine sed) [#/Area] 0-5 Normal 0 - 5 [facility] Work Phone: Comment on above: PATIENT WAS FASTINGP ERFORMED BY: [employer] [id number] BY: [facility]6370 [facility] [id number] PSA (PROSTATE SPECIFIC ANTIG EN) (V76.44)Ordered By: Nutritionist on 11-27-2017 Prostate specific Ag [Mass/Vol] 0.9 ng/mL Normal 0.0-4.0 [facility] Work Phone: Comment on above: German ECLIA methodol ogy. .According to the [place] U[employer], Serum PSA shoulddecrease and remain at undetectable levels after radicalprostatectomy. The AUA defines biochemical recurrence as an initialPSA value 0.2 ng/mL or greater followed by a subsequent confirmatoryPSA value 0.2 ng/mL or greater.Values obtained with different assay methods or kits cannot be usedinterchangeably. Results cannot be interpreted as absolute evidenceof the presence or absence of malignant disease. PATIENT WAS FASTINGP ERFORMED BY: [employer] [id number] BY: [place] 7958370 [address] RoadDublin [place] [id number] TSH ([id number])Ordered By: Designlabe m Ion Implant Machine Operator on 11-27-2017 TSH Qn 0.957 {uIU/mL} Normal 0.450-4.50 0 [facility] Work Phone: Comment on above: PATIENT WAS FASTINGP ERFORMED BY: LabCo[address] [id number] BY: DOROTHY [facility] Eooefk4215 [address] RoadDublin [place] [id number] URINALYSIS, W/ MICRO ([id number]) Ordered By: Nutritionist on 11-27-2017 Appearance (U) Clear Normal Comprehens anselmo Internal Medicine Work Phone: Comment on above: PATIENT WAS FASTINGP ERFORMED BY: LabCo[address] [id number] BY: DOROTHY [facility] Vwebku9094 [address] RoadDublin [place] [id number] Bilirubin Ql (U) Negative Normal Comprehe nsive Internal Medicine Work Phone: Comment on above: PATIENT WAS FASTINGP ERFORMED BY: LabCo[address] [id number] BY: DOROTHY [facility] Tikcqf1786 [address] RoadDublin [place] [id number] Bilirubin Ql (U) Negative Normal Comprehe nsive Internal Medicine; [facility] Work Phone: Color (U) Yellow Normal [facility] Work Phone: Comment on above: PATIENT WAS FASTINGP ERFORMED BY: [facility] [address] [id number] BY: DOROTHY [facility] Nfgati8692 [address] RoadDublin [place] [id number] Glucose Ql (U) Negative Normal Comprehens anselmo Internal Medicine Work Phone: Comment on above: PATIENT WAS FASTINGP ERFORMED BY: LabCo[address] [id number] BY: DOROTHY [facility] Zhkglb2601 [address] RoadDublin [place] [id number] Glucose Ql (U) Negative Normal Comprehens anselmo Internal Medicine; Comprehensive Internal Medicine Work Phone: Hemoglobin Ql (U) Negative Normal Compreh ensive Internal Medicine Work Phone: Comment on above: PATIENT WAS FASTINGP ERFORMED BY: [employer] [id number] BY: [facility] Fovwih9874 Bishop RoadDuin [place] [id number] Hemoglobin Ql (U) Negative Normal Compreh ensive Internal Medicine; [facility] Work Phone: Ketones Ql (U) Negative Normal Comprehens anselmo Internal Medicine Work Phone: Comment on above: PATIENT WAS FASTINGP ERFORMED BY: iContact[address] [id number] BY: [facility] Oohovz4000 [address] RoadAtrium Health Pineville [id number] Ketones Ql (U) Negative Normal Comprehens anselmo Internal Medicine; [facility] Work Phone: Leukocyte esterase Test strip Ql (U) Negative Normal [facility] Work Phone: Comment on above: PATIENT WAS FASTINGP ERFORMED BY: iContact[address] [id number] BY: [facility] Poitim7927 Bishop RoadDuin [place] [id number] Leukocyte esterase Test strip Ql (U) Negative Normal [facility]; [facility] Work Phone: Microscopic observation LM Nom (Urine sed) MICRON Normal [facility] Work Phone: Comment on above: Microscopic follows if indicated. PATIENT WAS FASTINGP ERFORMED BY: [employer] [id number] BY: [facility] Bydnlj6938 Bishop RoadDublin [place] [id number] Microscopic observation LM Nom (Urine sed) See below: Normal [facility] Work Phone: Comment on above: Microscopic was clayton cated and was performed. PATIENT WAS FASTINGP ERFORMED BY: [address] [id number] BY: [facility] Vjsgoa0496 Bishop RoadDublin [place] [id number] Nitrite Ql (U) Negative Normal Comprehens anselmo Internal Medicine Work Phone: Comment on above: PATIENT WAS FASTINGP ERFORMED BY: [address] [id number] BY: [facility] Iyohpm9702 Bishop RoadDublin [place] [id number] Nitrite Ql (U) Negative Normal Comprehens anselmo Internal Medicine; [facility] Work Phone: pH (U) 7.5 [pH] Normal 5.0-7.5 [facility] Work Phone: Comment on above: PATIENT WAS FASTINGP ERFORMED BY: [employer] [id number] BY: [place] 7958370 Bishop RoadDublin [place] [id number] Protein Ql (U) Negative Normal Comprehens anselmo Internal Medicine Work Phone: Comment on above: PATIENT WAS FASTINGP ERFORMED BY: [address] [id number] BY: [facility] Ppxtxk8900 Bishop RoadDublin [place] [id number] Protein Ql (U) Negative Normal Comprehens anselmo Internal Medicine; [facility] Work Phone: Specific gravity (U) [Rel density] 1.018 1 Normal 1.005-1.03 0 [facility] Work Phone: Comment on above: PATIENT WAS FASTINGP ERFORMED BY: [address] [id number] BY: [facility] Jthtpg5403 [address] RoadDublin [place] [id number] Urobilinogen (U) [Mass/Vol] 0.2 mg/dL Normal 0.2-1.0 [facility]; [facility] Work Phone: Urobilinogen Test strip (U) [Mass/Vol] 0.2 mg/dL Normal 0.2-1.0 Comprehensi Internal Medicine Work Phone: Comment on above: PATIENT WAS FASTINGP ERFORMED BY: [employer] Boiebztnfs9568 [facility] [id number] BY: LabCoGo[employer]y Dmxmwq2267 [facility] [id number] VITAMIN B-12 (CYANOCOBALAMIN ) (71979)Ordered By: Nutritionist on 11-27-2017 Cobalamin (Vitamin B12) [Mass/Vol] 362 pg/mL Normal 232-1245 [facility] Internal Medicine Work Phone: Comment on above: PATIENT WAS FASTINGP ERFORMED BY: [employer] ([place])ton1447 [facility] [id number] BY: LabAcceleforcePqqqor5452 [facility] [id number] Lab Report: Lipid Profileon 10-14-2017 Cholesterol 137 mg/dL Normal [facility] Work Phone: Comment on above: <200 mg/dL Desirable 200-240 mg/dL Borderline >240 mg/dL High Risk Order Date: 05/15/17 Order Info: 0788-1 - *Hepatic Function PanelOrder Info: [id number] - *Lipid Profile CC PCPComments: 12 hours fasting, may have water.[facility] [address] [place], [address] HDL Cholesterol 37 mg/dL Abnormal [facility] Work Phone: Comment on above: The drugs N-Acetylcy steine and Metamizole may falselydepress this assay. Reference Range HDL <40 mg/dL Low HDL Cholesterol HDL >or= 60 mg/dL High HDL Cholesterol Order Date: 05/15/17 Order Info: 0788-1 - *Hepatic Function PanelOrder Info: 14289-8 - *Lipid Profile CC PCPComments: 12 hours fasting, may have water.[facility] [address] [place], [address] LDL Cholesterol 80 mg/dL Normal 0-130 [facility] eart Group Work Phone: Comment on above: Order Date: 05/15/17 Order Info: 0788-1 - *Hepatic Function PanelOrder Info: 40720-0 - *Lipid Profile CC PCPComments: 12 hours fasting, may have water.[facility] [address] [place], [address] Triglyceride 101 mg/dL Normal [facility] t Group Work Phone: Comment on above: The drugs N-Acetylcy steine and Metamizole may falselydepress this assay.Serum Triglycerides Reference Interval Normal <150 mg/dL Borderline high 150 - 199 mg/dL High 200 - 499 mg/dL Very High > or = 500 mg/dL Order Date: 05/15/17 Order Info: 0788-1 - *Hepatic Function PanelOrder Info: 78295-4 - *Lipid Profile CC PCPComments: 12 hours fasting, may have water.[facility] [address] [place], [place], [address] very low density lipoproteins 20 mg/dL Invalid Interpretation Code 5-40 [place] katena Group Work Phone: Lab Report: Liver Profileon 10-14-2017 Alanine aminotransferase (ALT) 22 U/L Normal 16-61 [place] [facility] Work Phone: Comment on above: Please note revised ALT reference range lfkcmejvo50/28/2018. Order Date: 05/15/17 Order Info: 0788-1 - *Hepatic Function PanelOrder Info: 27671-1 - *Lipid Profile CC PCPComments: 12 hours fasting, may have water.[facility] [address] [place], [phone] Albumin 3.8 g/dL Normal 3.2-5.0 [place] katena [facility] Work Phone: Comment on above: Order Date: 05/15/17 Order Info: 0788-1 - *Hepatic Function PanelOrder Info: 65658-4 - *Lipid Profile CC PCPComments: 12 hours fasting, may have water.[facility] [address] [place], [address] Alkaline phosphatase (ALP) 96 U/L Normal 45-117 [facility] [employer] Work Phone: Comment on above: Order Date: 05/15/17 Order Info: 0788-1 - *Hepatic Function PanelOrder Info: 50013-6 - *Lipid Profile CC PCPComments: 12 hours fasting, may have water.[facility] [address] [place], [address] Aspartate aminotransferase (AST) 17 U/L Normal 15-37 [facility] [employer] Work Phone: Comment on above: Order Date: 05/15/17 Order Info: 0788-1 - *Hepatic Function PanelOrder Info: 07617-9 - *Lipid Profile CC PCPComments: 12 hours fasting, may have water.[facility] [address] [place], [address] Bilirubin (direct) 0.12 mg/dL Normal 0.00-0.30 [facility] [employer] Work Phone: Comment on above: Order Date: 05/15/17 Order Info: 0788-1 - *Hepatic Function PanelOrder Info: 13621-7 - *Lipid Profile CC PCPComments: 12 hours fasting, may have water.[facility] [address] [place], [address] Bilirubin (total) 0.40 mg/dL Normal 0.20-1.00 [facility] [employer] Work Phone: Comment on above: Order Date: 05/15/17 Order Info: 0788-1 - *Hepatic Function PanelOrder Info: 75682-6 - *Lipid Profile CC PCPComments: 12 hours fasting, may have water.[facility] [address] [place], 123507(484) Protein 7.1 g/dL Normal 6.4-8.2 [place] [employer] Work Phone: Comment on above: Order Date: 05/15/17 Order Info: 0788-1 - *Hepatic Function PanelOrder Info: 46091-7 - *Lipid Profile CC PCPComments: 12 hours fasting, may have water.[facility] [address] [place], [address] Globulin 3.3 g/dL Invalid Interpretation Code 2.2-4.2 [facility] Work Phone: Lipid ProfileOrdered By: [employer] tem Ion Implant Machine Operator on 10-14-2017 Cholesterol in VLDL [Mass/Vol] 20 mg/dL Normal 5-40 [facility] Work Phone: Comment on above: Order Date: 05/15/17 Order Info: 0788-1 - *Hepatic Function PanelOrder Info: [id number] - *Lipid Profile CC PCPComments: 12 hours fasting, may have water.[facility] [address] [place], [address] Liver ProfileOrdered By: [employer] tem Ion Implant Machine Operator on 10-14-2017 Globulin (S) [Mass/Vol] 3.3 g/dL Normal 2.2-4.2 [facility] Work Phone: Comment on above: Order Date: 05/15/17 Order Info: 0788-1 - *Hepatic Function PanelOrder Info: 85068-9 - *Lipid Profile CC PCPComments: 12 hours fasting, may have water.[facility] [address] [place], [address] Hepatic function 2000 panel - Serum or Plasma 7.1 g/dL Normal 6.4-8.2 [facility] Work Phone: Comment on above: Order Date: 05/15/17 Order Info: 0788-1 - *Hepatic Function PanelOrder Info: 96618-8 - *Lipid Profile CC PCPComments: 12 hours fasting, may have water.[facility] [address] [place], [address] Hepatic function 2000 panel - Serum or Plasma 96 U/L Normal 45-117 [facility] Work Phone: Comment on above: Order Date: 05/15/17 Order Info: 0788-1 - *Hepatic Function PanelOrder Info: 45386-0 - *Lipid Profile CC PCPComments: 12 hours fasting, may have water.[facility] [address] [place], [address] THROAT CULTURE (12177)Ordere d By: Nutritionist on 08-27-2017 Bacteria identified Respiratory culture Nom (Unsp spec) RRF Normal [facility] Work Phone: Comment on above: Routine respiratory thomas PATIENT NOT FASTINGP ERFORMED BY: [facility] Qfaqad2808 Bishop RoadAtrium Health [facility] [id number] Information: SRC:TH Bacteria identified Respiratory culture Nom (Unsp spec) Final report Normal [facility] Work Phone: Comment on above: PATIENT NOT FASTINGP ERFORMED BY: [facility] Whhmzn6980 Bishop RoadAtrium Health [facility] [id number] Information: SRC:TH Lab Report: Lipid Profileon 05-14-2017 Cholesterol in HDL mass conc 41 mg/dL Normal [facility] Work Phone: Comment on above: The drugs N-Acetylcy steine and Metamizole may falselydepress this assay. Reference Range HDL <40 mg/dL Low HDL Cholesterol HDL >or= 60 mg/dL High HDL Cholesterol Order Date: 04/22/17 Order Info: 0788-1 - *Hepatic Function PanelOrder Info: 13450-5 - *Lipid Profile CC PCPComments: 12 hours fasting, may have water.[facility] [address] [place], [address] Cholesterol in LDL mass conc 68 mg/dL Normal 0-130 [place] [facility] Work Phone: Comment on above: Order Date: 04/22/17 Order Info: 0788-1 - *Hepatic Function PanelOrder Info: 34866-5 - *Lipid Profile CC PCPComments: 12 hours fasting, may have water.[facility] [address] [place], [id number] Cholesterol mass conc 131 mg/dL Normal [facility] Work Phone: Comment on above: <200 mg/dL Desirable 200-240 mg/dL Borderline >240 mg/dL High Risk Order Date: 04/22/17 Order Info: 0788-1 - *Hepatic Function PanelOrder Info: 24883-4 - *Lipid Profile CC PCPComments: 12 hours fasting, may have water.[facility] [address] [place], [place], [address] Triglyceride mass conc 110 mg/dL Normal [place] [employer] Work Phone: Comment on above: The drugs N-Acetylcy steine and Metamizole may falselydepress this assay.Serum Triglycerides Reference Interval Normal <150 mg/dL Borderline high 150 - 199 mg/dL High 200 - 499 mg/dL Very High > or = 500 mg/dL Order Date: 04/22/17 Order Info: 0788-1 - *Hepatic Function PanelOrder Info: 73410-9 - *Lipid Profile CC PCPComments: 12 hours fasting, may have water.[facility] [address] [place], [place], [address] Lipoprotein.pre-beta mass conc 22 mg/dL Invalid Interpretation Code 540 [place] [employer] Work Phone: Lab Report: Liver Profileon 05-14-2017 Albumin mass conc 3.7 g/dL Normal 3.4-5.0 [place] [facility] Work Phone: Comment on above: Order Date: 04/22/17 Order Info: 0788-1 - *Hepatic Function PanelOrder Info: 71542-7 - *Lipid Profile CC PCPComments: 12 hours fasting, may have water.[facility] [address] [place], [place], [address] Alkaline phosphatase (ALP) 87 U/L Normal 45-117 [place] [employer] Work Phone: Comment on above: Order Date: 04/22/17 Order Info: 0788-1 - *Hepatic Function PanelOrder Info: 82601-1 - *Lipid Profile CC PCPComments: 12 hours fasting, may have water.[facility] [address] [place], [place], [address] ALT enzyme act/vol 22 U/L Normal 12-78 [facility] Work Phone: Comment on above: Order Date: 04/22/17 Order Info: 0788-1 - *Hepatic Function PanelOrder Info: 03047-3 - *Lipid Profile CC PCPComments: 12 hours fasting, may have water.[facility] [address] [place], [phone] AST enzyme act/vol 15 U/L Normal 15-37 [facility] Work Phone: Comment on above: Order Date: 04/22/17 Order Info: 0788-1 - *Hepatic Function PanelOrder Info: 57325-1 - *Lipid Profile CC PCPComments: 12 hours fasting, may have water.[facility] [address] [place], [phone] Bilirubin mass conc 0.70 mg/dL Normal 0.20-1.00 [facility] Work Phone: Comment on above: Order Date: 04/22/17 Order Info: 0788-1 - *Hepatic Function PanelOrder Info: 04448-2 - *Lipid Profile CC PCPComments: 12 hours fasting, may have water.[facility] [address] [place], [address] Bilirubin.direct mass conc 0.19 mg/dL Normal 0.00-0.30 [facility] Work Phone: Comment on above: Order Date: 04/22/17 Order Info: 0788-1 - *Hepatic Function PanelOrder Info: 82501-5 - *Lipid Profile CC PCPComments: 12 hours fasting, may have water.[facility] [address] [place], [phone] Protein mass conc 6.8 g/dL Normal 6.4-8.2 [facility] Work Phone: Comment on above: Order Date: 04/22/17 Order Info: 0788-1 - *Hepatic Function PanelOrder Info: 64733-3 - *Lipid Profile CC PCPComments: 12 hours fasting, may have water.[facility] [address] [place], [address] Globulin 3.1 g/dL Invalid Interpretation Code 2.3-3.5 [facility] Work Phone: Lipid ProfileOrdered By: [employer] tem Ion Implant Machine Operator on 05-14-2017 Cholesterol in VLDL [Mass/Vol] 22 mg/dL Normal 5-40 [facility] Work Phone: Comment on above: Order Date: 04/22/17 Order Info: 0788-1 - *Hepatic Function PanelOrder Info: 66997-3 - *Lipid Profile CC PCPComments: 12 hours fasting, may have water.[facility] [address] [place], [address] Liver ProfileOrdered By: [employer] Ion Implant Machine Operator on 05-14-2017 Globulin mass conc (S) 3.1 g/dL Normal 2.3-3.5 [facility] Work Phone: Comment on above: Order Date: 04/22/17 Order Info: 0788-1 - *Hepatic Function PanelOrder Info: 98256-5 - *Lipid Profile CC PCPComments: 12 hours fasting, may have water.[facility] [address] [place], [address] Hepatic function 2000 panel - Serum or Plasma 6.8 g/dL Normal 6.4-8.2 [facility] Work Phone: Comment on above: Order Date: 04/22/17 Order Info: 0788-1 - *Hepatic Function PanelOrder Info: 16637-1 - *Lipid Profile CC PCPComments: 12 hours fasting, may have water.[facility] [address] [place], [address] Hepatic function 2000 panel - Serum or Plasma 87 U/L Normal 45-117 [facility] Work Phone: Comment on above: Order Date: 04/22/17 Order Info: 0788-1 - *Hepatic Function PanelOrder Info: 93523-6 - *Lipid Profile CC PCPComments: 12 hours fasting, may have water.[facility] [address] [place], [address] Replaced Document: Liver Pro fileon 05-14-2017 ALP enzyme act/vol (Bld) 87 U/L Invalid Interpretation Code 45-117 [facility] Work Phone: Office Visiton 04-22-2017 Dietary management education, guidance, and counseling (procedure) yes Invalid Interpretation Code [facility] Work Phone: Documentation of current medications (procedure) Done Invalid Interpretation Code [facility] Work Phone: Fall risk assessment No Invalid Interpretation Code [facility] Work Phone: Protein mass conc Done Invalid Interpretation Code [facility] Work Phone: Tobacco smoking status NHIS Tobacco smoking status NHIS Invalid Interpretation Code [facility] Work Phone: Tobacco smoking status NHIS Current every day smoker Invalid Interpretation Code [facility] Work Phone: Tobacco use HS Current every day smoker Invali d Interpretation Code [facility] Work Phone: PSA,Total - Annual ScreenOrd ered By: Nutritionist on 11-19-2016 Prostate specific Ag [Mass/Vol] 1.88 ng/mL Normal 0.00-4.00 [facility] Work Phone: Comment on above: This test was perfor med using the TPSA assay method for theAceable chemistry system. Values obtained with differentassay methods cannot be used interchangably.When changing PSA assays in the course of monitoring apatient, additional sequential testing should be carriedout to confirm baseline values. [facility] [address] 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 Invalid Interpretation Code [employer] Work Phone: P [place] 33 deg Invalid Interpretation Code [employer] Work Phone: P wave axis, electrocardiogram 33 deg Invalid Interpretation Code [employer] Work Phone: NM Interval 166 ms Invalid Interpretation Code [employer] Work Phone: NM interval, electrocardiogram 166 ms Invalid Interpretation Code [employer] Work Phone: Pulse (Heart Rate) 90 /min Invalid Interpretation Code [employer] Work Phone: QRS axis, electrocardiogram 22 deg Invalid Interpretation Code [employer] Work Phone: QRS Duration 100 ms Invalid Interpretation Code [employer] Work Phone: QRS duration, electrocardiogram 100 ms Invalid Interpretation Code [employer] Work Phone: QT Interval new path ms Invalid Interpretation Code [employer] Work Phone: QT interval, electrocardiogram new path ms Invalid Interpretation Code [employer] Work Phone: QTc Marie 416 ms Invalid Interpretation Code [employer] Work Phone: T [place] 20 deg Invalid Interpretation Code [employer] Work Phone: T wave axis, electrocardiogram 20 deg Invalid Interpretation Code [employer] Work Phone: Clinical Lists 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 Left ventricular Ejection fraction 60 % Invalid Interpretation Code [employer] Work Phone: CBC, Platelets & Auto Diff ( 16949)Ordered By: Nutritionist on 06-01-2016 Basophils (Bld) [#/Vol] 0.1 {x10E3/uL} Normal 0.0-0.2 [facility] Work Phone: Comment on above: PATIENT NOT FASTINGP ERFORMED BY: LabCoHoboken University Medical CenterPlarxp3098 [facility] [id number] Information: [id number], [id number] Basophils (Bld) [#/Vol] 0.1 10*3/uL Normal 0.0-0.2 [facility]; [facility] Work Phone: Basophils/100 WBC (Bld) 1 % Normal [facility] Work Phone: Comment on above: PATIENT NOT FASTINGP ERFORMED BY: [facility] Lzhifw9055 [facility] [id number] Information: [id number], [id number] Eosinophils (Bld) [#/Vol] 0.2 {x10E3/uL} Normal 0.0-0.4 [facility] Work Phone: Comment on above: PATIENT NOT FASTINGP ERFORMED BY: [place] 7958370 [facility] [id number] Information: [id number] Eosinophils (Bld) [#/Vol] 0.2 10*3/uL Normal 0.0-0.4 [facility]; [facility] Work Phone: Eosinophils/100 WBC (Bld) 2 % Normal [facility] Work Phone: Comment on above: PATIENT NOT FASTINGP ERFORMED BY: [facility] [address] [id number] Information: [id number], [id number] Erythrocyte distribution width (RBC) [Ratio] 13.6 % Normal 12.3-15.4 [facility] Work Phone: Comment on above: PATIENT NOT FASTINGP ERFORMED BY: [facility]6370 [facility] [id number] Information: [id number], [id number] Hematocrit (Bld) [Volume fraction] 47.3 % Normal 37.5-51.0 [facility] Work Phone: Comment on above: PATIENT NOT FASTINGP ERFORMED BY: [facility]6370 [facility] [id number] Information: [id number], [id number] Hemoglobin (Bld) [Mass/Vol] 15.9 g/dL Normal 12.6-17.7 [facility] Work Phone: Comment on above: PATIENT NOT FASTINGP ERFORMED BY: DOROTHY Mata6370 [facility] [id number] Information: [id number], [id number] Immature granulocytes (Bld) [#/Vol] 0.0 {x10E3/uL} Normal 0.0-0.1 [facility] Work Phone: Comment on above: PATIENT NOT FASTINGP ERFORMED BY: [facility]6370 [facility] [id number] Information: [id number], [id number] Immature granulocytes (Bld) [#/Vol] 0.0 10*3/uL Normal 0.0-0.1 [facility]; [facility] Work Phone: Immature granulocytes/100 WBC (Bld) 0 % Normal [facility] Work Phone: Comment on above: PATIENT NOT FASTINGP ERFORMED BY: [facility] Udwtym3648 [facility] [id number] Information: [id number], [id number] Lymphocytes (Bld) [#/Vol] 1.2 {x10E3/uL} Normal 0.7-3.1 [facility] Work Phone: Comment on above: PATIENT NOT FASTINGP ERFORMED BY: [facility]6370 [facility] [id number] Information: [id number], [id number] Lymphocytes (Bld) [#/Vol] 1.2 10*3/uL Normal 0.7-3.1 [facility]; [facility] Work Phone: Lymphocytes/100 WBC (Bld) 15 % Normal [facility] Work Phone: Comment on above: PATIENT NOT FASTINGP ERFORMED BY: DOROTHY [facility] Dasjyl3627 [facility] [id number] Information: [id number], [id number] MCH (RBC) [Entitic mass] 31.4 pg Normal 26.6-33.0 [facility] Work Phone: Comment on above: PATIENT NOT FASTINGP ERFORMED BY: DOROTHY Mata6370 [facility] [id number] Information: [id number], [id number] MCHC (RBC) [Mass/Vol] 33.6 g/dL Normal 31.5-35.7 [facility] Work Phone: Comment on above: PATIENT NOT FASTINGP ERFORMED BY: DOROTHY Mata6370 [facility] [id number] Information: [id number], [id number] MCV (RBC) [Entitic vol] 93 fL Normal 79-97 [facility] Work Phone: Comment on above: PATIENT NOT FASTINGP ERFORMED BY: DOROTHY Mata6370 [facility] [id number] Information: [id number] Monocytes (Bld) [#/Vol] 0.5 {x10E3/uL} Normal 0.1-0.9 [facility] Work Phone: Comment on above: PATIENT NOT FASTINGP ERFORMED BY: DOROTHY Mata6370 [facility] [id number] Information: [id number], [id number] Monocytes (Bld) [#/Vol] 0.5 10*3/uL Normal 0.1-0.9 [facility]; [facility] Work Phone: Monocytes/100 WBC (Bld) 6 % Normal [facility] Work Phone: Comment on above: PATIENT NOT FASTINGP ERFORMED BY: DOROTHY MaciasCo Yfkhit8382 [facility] [id number] Information: [id number] Neutrophils (Bld) [#/Vol] 6.4 {x10E3/uL} Normal 1.4-7.0 [facility] Work Phone: Comment on above: PATIENT NOT FASTINGP ERFORMED BY: DOROTHY Camarena Lxywgj3889 [facility] [id number] Information: [id number], [id number] Neutrophils (Bld) [#/Vol] 6.4 10*3/uL Normal 1.4-7.0 [facility]; [facility] Work Phone: Neutrophils/100 WBC (Bld) 76 % Normal [facility] Internal Medicine Work Phone: Comment on above: PATIENT NOT FASTINGP ERFORMED BY: DOROTHY Tello70 [facility] [id number] Information: [id number], [id number] Platelets (Bld) [#/Vol] 199 {x10E3/uL} Normal 150-379 [facility] Internal Medicine Work Phone: Comment on above: PATIENT NOT FASTINGP ERFORMED BY: DOROTHY Shweta Mata6370 [facility] [id number] Information: [id number], [id number] Platelets (Bld) [#/Vol] 199 10*3/uL Normal 150-379 [facility] Internal Medicine; [facility] Medicine Work Phone: RBC (Bld) [#/Vol] 5.07 {x10E6/uL} Normal 4.14-5.80 [facility] Internal Medicine Work Phone: Comment on above: PATIENT NOT FASTINGP ERFORMED BY: DOROTHY Castillolin6370 [facility] [id number] Information: [id number], [id number] RBC (Bld) [#/Vol] 5.07 10*6/uL Normal 4.14-5.80 [facility] Internal Medicine; [facility] Internal Medicine Work Phone: WBC (Bld) [#/Vol] 8.4 {x10E3/uL} Normal 3.4-10.8 [facility] Internal Medicine Work Phone: Comment on above: PATIENT NOT FASTINGP ERFORMED BY: DOROTHY Camarena Cibyhy0268 [facility] [id number] Information: [id number], [id number] WBC (Bld) [#/Vol] 8.4 10*3/uL Normal 3.4-10.8 [facility]; [facility] Work Phone: Metabolic Panel, Basic ([phone])Ordered By: Nutritionist on 06-01-2016 Calcium [Mass/Vol] 8.8 mg/dL Normal 8.6-10.2 [facility] Work Phone: Comment on above: PATIENT NOT FASTINGP ERFORMED BY: CB [facility] Wiprih8[address] RoadDublin [place] [id number] Chloride [Moles/Vol] 102 mmol/L Normal 97-108 [facility] Work Phone: Comment on above: Effective June 11, 2016 the reference interval for Chloride, Serum will be changing to: 97 - 106 PATIENT NOT FASTINGP ERFORMED BY: CB [facility] Zbsolp4244 [address] RoadDublin [place] [id number] CO2 [Moles/Vol] 23 mmol/L Normal 18-29 [facility] Internal Medicine Work Phone: Comment on above: PATIENT NOT FASTINGP ERFORMED BY: CB [facility] Otxywy9341 [address] RoadDublin [place] [id number] Creatinine [Mass/Vol] 1.17 mg/dL Normal 0.76-1.27 [facility] Work Phone: Comment on above: PATIENT NOT FASTINGP ERFORMED BY: CB [facility] Xefmfm0253 [address] RoadDublin [place] [id number] GFR/1.73 sq M predicted among blacks CKD-EPI (S/P/Bld) [Vol rate/Area] 73 mL/min/1.73 Normal [facility] Work Phone: Comment on above: PATIENT NOT FASTINGP ERFORMED BY: CB [facility] Lhxbzf7269 [address] RoadDublin [place] [id number] GFR/1.73 sq M predicted among non-blacks CKD-EPI (S/P/Bld) [Vol rate/Area] 63 mL/min/1.73 Normal [facility] Work Phone: Comment on above: PATIENT NOT FASTINGP ERFORMED BY: DOROTHY [facility] Ulhzvx2359 [facility] [id number] Glucose [Mass/Vol] 74 mg/dL Normal 65-99 [facility] Work Phone: Comment on above: PATIENT NOT FASTINGP ERFORMED BY: DOROTHY Camarena Voyrbt6210 [facility] [id number] Potassium [Moles/Vol] 4.8 mmol/L Normal 3.5-5.2 [facility] Internal Medicine Work Phone: Comment on above: Effective June 11, 2016 the reference interval for Potassium, Serum will be changing to: 0 - 7 days 3.7 - 5.2 8 - 30 days 3.7 - 6.4 1 - 6 months 3.8 - 6.0 7 months - 1 year 3.8 - 5.3 >1 year 3.5 - 5.2 PATIENT NOT FASTINGP ERFORMED BY: [facility]toEll[facility] Xsratj0776 [facility] [id number] Sodium [Moles/Vol] 143 mmol/L Normal 134-144 [facility] Work Phone: Comment on above: Effective June 11, 2016 the reference interval for Sodium, Serum will be changing to: 136 - 144 PATIENT NOT FASTINGP ERFORMED BY: DOROTHY Camarena Ewqxfw2340 [facility] [id number] Urea nitrogen [Mass/Vol] 15 mg/dL Normal 8-27 [facility] Internal Medicine Work Phone: Comment on above: PATIENT NOT FASTINGP ERFORMED BY: LabStraith [facility] Surgery6370 [facility] [id number] Urea nitrogen/Creatinine [Mass ratio] 13 mg/mg Normal 10-22 [facility] Work Phone: Comment on above: PATIENT NOT FASTINGP ERFORMED BY: DOROTHY LabRenuka Tvnont8844 [facility] [id number] PT (PROTHROMBIN TIME) ([id number] )Ordered By: Nutritionist on 06-01-2016 INR Coag (PPP) [Relative time] 1.0 {INR} Normal 0.8-1.2 [facility] Work Phone: Comment on above: Reference interval i s for non-anticoagulated patients. . Suggested INR therapeutic range for Vitamin K antagonist therapy: Standard Dose (moderate intensity therapeutic range): 2.0 - 3.0 Higher intensity therapeutic range 2.5 - 3.5 PATIENT NOT FASTINGP ERFORMED BY: CB [facility] Iacdsi3944 [address] RoadDublin [place] [id number] PT Coag (PPP) [Time] 10.4 {sec} Normal 9.1-12.0 Comp rehensive Internal Medicine Work Phone: Comment on above: PATIENT NOT FASTINGP ERFORMED BY: CB [facility] Ewasue5251 [address] RoadDublin [place] [id number] PT Coag (PPP) [Time] 10.4 s Normal 9.1-12.0 Comp rehensive [facility]; [facility] Work Phone: Urinalysis, Office ([phone])Or dered By: Bijal Serrano on 06-01-2016 Bilirubin Ql (U) Negative Normal Comprehe nsive Internal Medicine Work Phone: Bilirubin Ql (U) Negative Normal Comprehe nsive Internal Medicine; [facility] Work Phone: Glucose Test strip (U) [Mass/Vol] Negative Normal [facility] Work Phone: Glucose Test strip (U) [Mass/Vol] Negative Normal [facility]; [facility] Work Phone: Hemoglobin Ql (U) Non Hemolyzed Moderate Normal [facility] Work Phone: Ketones Ql (U) Negative Normal Comprehens anselmo Internal Medicine Work Phone: Ketones Ql (U) Negative Normal Comprehens anselmo [facility]; [facility] Work Phone: Leukocyte esterase Test strip Ql (U) Negative Normal [facility] Work Phone: Leukocyte esterase Test strip Ql (U) Negative Normal [facility]; [facility] Work Phone: Nitrite Ql (U) Negative Normal Comprehens [facility] Work Phone: Nitrite Ql (U) Negative Normal Comprehens [facility]; [facility] Work Phone: pH (U) 7.0 [pH] Normal [facility] Work Phone: Protein Ql (U) Negative Normal Comprehens an[facility]mo [facility] Work Phone: Protein Ql (U) Negative Normal Comprehens anselmo [facility]; [facility] Work Phone: Specific gravity (U) [Rel density] 1.010 1 Normal [facility] Work Phone: Urobilinogen (24H U) [Mass/Time] Normal Normal [facility] Work Phone: CBC-Complete Blood Cnt No Di ffOrdered By: Nutritionist on 05-16-2016 Erythrocyte distribution width (RBC) [Ratio] 13.0 % Normal 11.6-14.6 [facility] Work Phone: Comment on above: [facility] [address] [place], [place], [phone] Hematocrit (Bld) [Volume fraction] 45.6 % Normal 40-54 [facility] Work Phone: Comment on above: [facility] [address] [place], [address] Hemoglobin (Bld) [Mass/Vol] 15.2 g/dL Normal 13.0-16.5 [facility] Work Phone: Comment on above: [facility] Bug[address] [place], [address] MCH (RBC) [Entitic mass] 31.6 pg Normal 27.0-32.0 [facility] Work Phone: Comment on above: [facility] [address] [place], [place], [phone] MCHC (RBC) [Mass/Vol] 33.3 {g/gl} Normal 32-36 [facility] Work Phone: Comment on above: [facility] [address] [place], [address] MCV (RBC) [Entitic vol] 94.8 fL Abnormal 80-94 [facility] Work Phone: Comment on above: [facility] [address] [place], [address] Platelet mean volume (Bld) [Entitic vol] 10.2 fL Normal 6.2-12.0 Comprehensiv e [facility] Medicine Work Phone: Comment on above: [facility] [address] [place], [phone] Platelets (Bld) [#/Vol] 192 10*3/uL Normal 150-450 [facility] Work Phone: Comment on above: [facility] [address] [place], [address] RBC (Bld) [#/Vol] 4.81 {M/mm3} Normal 4.6-6.2 Compr ehensive [facility] Medicine Work Phone: Comment on above: [facility] [address] [place], [address] WBC (Bld) [#/Vol] 8.7 10*3/uL Normal 4.4-11.0 Compre hensive Internal Medicine Work Phone: Comment on above: [facility] In[address] [place], [address] CBC-Complete Blood Cnt No Diff 44.9 fL Abnormal 35.1-43.9 [facility] Work Phone: Comment on above: [facility] [address] [place], [address] Blood Glucose , Office ([phone])Ordered By: Denisse Alvarado on 04-05-2016 Glucose Glucometer (BldC) [Moles/Vol] 81 1 Normal [facility] Work Phone: HgA1C , Office ([phone])Ordere d By: Denisse Alvarado on 04-05-2016 HbA1c (Bld) [Mass fraction] 5.2 % Normal 4.6 - 7.1 [facility] Work Phone: CBC W/AUTO DIFF WBC ([phone])O rdered By: Nutritionist on 03-22-2016 Basophils (Bld) [#/Vol] 0.1 {x10E3/uL} Normal 0.0-0.2 [facility] Work Phone: Comment on above: PATIENT WAS FASTINGP ERFORMED BY: DOROTHY Dish.fm [address] [place] [facility] CommerceAt[facility] Health [facility] [id number] Information: [id number] Basophils (Bld) [#/Vol] 0.1 10*3/uL Normal 0.0-0.2 [facility]; [facility] Work Phone: Basophils/100 WBC (Bld) 1 % Normal [facility] Work Phone: Comment on above: PATIENT WAS FASTINGP ERFORMED BY: DOROTHY iContact Ctarjj8058 [employer] Global TechnologiesAt[facility] Health [facility] [id number] Information: [id number] Eosinophils (Bld) [#/Vol] 0.2 {x10E3/uL} Normal 0.0-0.4 [facility] Work Phone: Comment on above: PATIENT WAS FASTINGP ERFORMED BY: DOROTHY [employer]6370 [address] [place] [employer] [facility] CommerceAt[facility] Health [facility] [id number] Information: [id number] Eosinophils (Bld) [#/Vol] 0.2 10*3/uL Normal 0.0-0.4 [facility]; [facility] Work Phone: Eosinophils/100 WBC (Bld) 4 % Normal [facility] Work Phone: Comment on above: PATIENT WAS FASTINGP ERFORMED BY: DOROTHY Raumfeld70 [address] [place] [employer] CommerceAt[facility] Health [facility] [id number] Information: [id number] Erythrocyte distribution width (RBC) [Ratio] 13.6 % Normal 12.3-15.4 [facility] Work Phone: Comment on above: PATIENT WAS FASTINGP ERFORMED BY: DOROTHY GilbertoElizabeth Ville 8571170 [facility] [id number] Information: [id number] Hematocrit (Bld) [Volume fraction] 46.1 % Normal 37.5-51.0 [facility] Work Phone: Comment on above: PATIENT WAS FASTINGP ERFORMED BY: DOROTHY Gilberto[address] [id number] Information: [id number] Hemoglobin (Bld) [Mass/Vol] 15.6 g/dL Normal 12.6-17.7 [facility] Work Phone: Comment on above: PATIENT WAS FASTINGP ERFORMED BY: DOROTHY Macias[address] [id number] Information: [id number] Immature granulocytes (Bld) [#/Vol] 0.0 {x10E3/uL} Normal 0.0-0.1 [facility] Work Phone: Comment on above: PATIENT WAS FASTINGP ERFORMED BY: DORTOHY Castillolin6370 [facility] [id number] Information: [id number] Immature granulocytes (Bld) [#/Vol] 0.0 10*3/uL Normal 0.0-0.1 [facility]; [facility] Work Phone: Immature granulocytes/100 WBC (Bld) 0 % Normal [facility] Work Phone: Comment on above: PATIENT WAS FASTINGP ERFORMED BY: DOROTHY [address] [id number] Information: [id number] Lymphocytes (Bld) [#/Vol] 1.6 {x10E3/uL} Normal 0.7-3.1 [facility] Work Phone: Comment on above: PATIENT WAS FASTINGP ERFORMED BY: [place] 7958370 [facility] [id number] Information: [id number] Lymphocytes (Bld) [#/Vol] 1.6 10*3/uL Normal 0.7-3.1 [facility]; [facility] Work Phone: Lymphocytes/100 WBC (Bld) 24 % Normal [facility] Work Phone: Comment on above: PATIENT WAS FASTINGP ERFORMED BY: [address] [id number] Information: [id number] MCH (RBC) [Entitic mass] 31.6 pg Normal 26.6-33.0 [facility] Work Phone: Comment on above: PATIENT WAS FASTINGP ERFORMED BY: [address] [id number] Information: [id number] MCHC (RBC) [Mass/Vol] 33.8 g/dL Normal 31.5-35.7 [facility] Work Phone: Comment on above: PATIENT WAS FASTINGP ERFORMED BY: [address] [id number] Information: [id number] MCV (RBC) [Entitic vol] 94 fL Normal 79-97 [facility] Work Phone: Comment on above: PATIENT WAS FASTINGP ERFORMED BY: [address] [id number] Information: [id number] Monocytes (Bld) [#/Vol] 0.5 {x10E3/uL} Normal 0.1-0.9 [facility] Work Phone: Comment on above: PATIENT WAS FASTINGP ERFORMED BY: [address] [id number] Information: [id number] Monocytes (Bld) [#/Vol] 0.5 10*3/uL Normal 0.1-0.9 [facility]; [facility] Work Phone: Monocytes/100 WBC (Bld) 8 % Normal [facility] Work Phone: Comment on above: PATIENT WAS FASTINGP ERFORMED BY: DOROTHY GilbertoJessenia CastilloBidnal8607 [facility] [id number] Information: [id number] Neutrophils (Bld) [#/Vol] 4.3 {x10E3/uL} Normal 1.4-7.0 [facility] Work Phone: Comment on above: PATIENT WAS FASTINGP ERFORMED BY: DOROTHY [facility] CenterJessenia CastilloQddejb4772 [facility] [id number] Information: [id number] Neutrophils (Bld) [#/Vol] 4.3 10*3/uL Normal 1.4-7.0 [facility]; [facility] Work Phone: Neutrophils/100 WBC (Bld) 63 % Normal [facility] Work Phone: Comment on above: PATIENT WAS FASTINGP ERFORMED BY: DOROTHY [facility] Hospitalmonserrat CastilloZwynht1887 [facility] [id number] Information: [id number] Platelets (Bld) [#/Vol] 185 {x10E3/uL} Normal 150-379 [facility] Work Phone: Comment on above: PATIENT WAS FASTINGP ERFORMED BY: DOROTHY [place] 6278870 [facility] [id number] Information: [id number] Platelets (Bld) [#/Vol] 185 10*3/uL Normal 150-379 [facility]; [facility] Internal Medicine Work Phone: RBC (Bld) [#/Vol] 4.93 {x10E6/uL} Normal 4.14-5.80 [facility] Internal Medicine Work Phone: Comment on above: PATIENT WAS FASTINGP ERFORMED BY: DOROTHY [place] 6278870 [facility] [id number] Information: [id number] RBC (Bld) [#/Vol] 4.93 10*6/uL Normal 4.14-5.80 [facility]; [facility] Work Phone: WBC (Bld) [#/Vol] 6.7 {x10E3/uL} Normal 3.4-10.8 [facility] Internal Medicine Work Phone: Comment on above: PATIENT WAS FASTINGP ERFORMED BY: DOROTHY Castillolin6370 [facility] [id number] Information: [id number] WBC (Bld) [#/Vol] 6.7 10*3/uL Normal 3.4-10.8 [facility]; [facility] Work Phone: Clinical Lists 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 PATIENT WAS FASTINGP ERFORMED BY: DOROTHY Mata6370 [facility] [id number]; fu 04-05-16 Cholesterol in LDL mass conc 63 mg/dL Normal 0-99 [employer] Work Phone: Comment on above: PATIENT WAS FASTINGP ERFORMED BY: DOROTHY Castillolin6370 [facility] [id number]; fu 04-05-16 Cholesterol mass conc 117 mg/dL Normal 100-199 [employer] Work Phone: Comment on above: PATIENT WAS FASTINGP ERFORMED BY: DOROTHY LabJessenia CastilloJuiaxp9187 [facility] [id number]; fu 04-05-16 Triglyceride mass conc 96 mg/dL Normal 0-149 [employer] Work Phone: Comment on above: PATIENT WAS FASTINGP ERFORMED BY: DOROTHY Beauty WorksJessenia CastilloOoggot5873 [facility] [id number]; fu 04-05-16 Cholesterol in LDL/Cholesterol in HDL mass ratio 1.8 Invalid Interpretation Code [facility] Work Phone: Lipoprotein.pre-beta mass conc 19 mg/dL Invalid Interpretation Code [facility] Work Phone: LIPID PANEL ([phone])Ordered B y: Nutritionist on 03-22-2016 Cholesterol in LDL/Cholesterol in HDL [Mass ratio] 1.8 {ratio_units} Normal 0.0-3.6 [facility] Work Phone: Comment on above: LDL/HDL Ratio Men Wo men 1/2 Avg.Risk 1.0 1.5 Avg.Risk 3.6 3.2 2X Avg.Risk 6.2 5.0 3X Avg.Risk 8.0 6.1 PATIENT WAS FASTINGP ERFORMED BY: CB [facility] Clcyjt9509 [address] [employer] SoftwareFirstHealth [facility] [id number]; fu 04-05-16 Cholesterol in VLDL [Mass/Vol] 19 mg/dL Normal 5-40 [facility] Work Phone: Comment on above: PATIENT WAS FASTINGP ERFORMED BY: CB [facility] Pzdsaz2663 [address] [place] [employer] [place] CommerceDublin [place] [id number]; fu 04-05-16 METABOLIC PANEL, COMPREHENSI VE ([phone])Ordered By: Nutritionist on 03-22-2016 Albumin [Mass/Vol] 4.1 g/dL Normal 3.6-4.8 [facility] Work Phone: Comment on above: PATIENT WAS FASTINGP ERFORMED BY: CB [facility] Wwtrfu6065 [address] [place] [employer] [place] CommerceDublin [place] [id number] Albumin/Globulin [Mass ratio] 1.8 {ratio} Normal 1.1-2.5 [facility] Work Phone: Comment on above: PATIENT WAS FASTINGP ERFORMED BY: CB [facility] Lbnfov1098 [address] [place] [employer] [place] Commerceblin [place] [id number] ALP [Catalytic activity/Vol] 84 [iU]/L Normal 39-117 [facility] Work Phone: Comment on above: PATIENT WAS FASTINGP ERFORMED BY: [facility] Ackpog6328 [address] RoadDublin [place] [id number] ALP [Catalytic activity/Vol] 84 U/L Normal 39-117 [facility]; [facility] Work Phone: ALT [Catalytic activity/Vol] 13 [iU]/L Normal 0-44 [facility] Work Phone: Comment on above: PATIENT WAS FASTINGP ERFORMED BY: [facility] Bzexxt3183 [address] RoadDublin [place] [id number] ALT [Catalytic activity/Vol] 13 U/L Normal 0-44 [facility]; [facility] Work Phone: AST [Catalytic activity/Vol] 18 [iU]/L Normal 0-40 [facility] Work Phone: Comment on above: PATIENT WAS FASTINGP ERFORMED BY: LabDoctors Hospital Of SpringfieldCtrncq4902 [address] RoadDublin [place] [id number] AST [Catalytic activity/Vol] 18 U/L Normal 0-40 [facility]; [facility] Work Phone: Bilirubin [Mass/Vol] 0.8 mg/dL Normal 0.0-1.2 Comp rehensive Internal Medicine Work Phone: Comment on above: PATIENT WAS FASTINGP ERFORMED BY: [facility] Zpscgy6909 [address] RoadDublin [place] [id number] Calcium [Mass/Vol] 8.7 mg/dL Normal 8.6-10.2 [facility] Work Phone: Comment on above: PATIENT WAS FASTINGP ERFORMED BY: [facility] Fedyqb0058 [address] RoadDublin [place] [id number] Chloride [Moles/Vol] 101 mmol/L Normal 97-108 Comp rehensive Internal Medicine Work Phone: Comment on above: PATIENT WAS FASTINGP ERFORMED BY: [facility] Nwqszs6499 [address] RoadDublin [place] [id number] CO2 [Moles/Vol] 23 mmol/L Normal 18-29 [facility] Internal Medicine Work Phone: Comment on above: PATIENT WAS FASTINGP ERFORMED BY: [facility] Jordzm2191 [address] RoadDublin [place] [id number] Creatinine [Mass/Vol] 1.10 mg/dL Normal 0.76-1.27 [facility] Work Phone: Comment on above: PATIENT WAS FASTINGP ERFORMED BY: [facility] Ldvtil7161 [address] RoadDublin [place] [id number] GFR/1.73 sq M predicted among blacks CKD-EPI (S/P/Bld) [Vol rate/Area] 79 mL/min/1.73 Normal [facility] Work Phone: Comment on above: PATIENT WAS FASTINGP ERFORMED BY: [facility] Ceyorl0334 [address]ohp RoadDublin [place] [id number] GFR/1.73 sq M predicted among non-blacks CKD-EPI (S/P/Bld) [Vol rate/Area] 68 mL/min/1.73 Normal [facility] Work Phone: Comment on above: PATIENT WAS FASTINGP ERFORMED BY: [facility] Zcofii2033 [address] RoadD[address] [place] [id number] Globulin (S) [Mass/Vol] 2.3 g/dL Normal 1.5-4.5 [facility] Work Phone: Comment on above: PATIENT WAS FASTINGP ERFORMED BY: [facility] Qyzbwc2027 [address] RoadD[address] [place] [id number] Glucose [Mass/Vol] 78 mg/dL Normal 65-99 [facility] Work Phone: Comment on above: PATIENT WAS FASTINGP ERFORMED BY: [facility] Ibnong6259 [address] RoadDublin [place] [id number] Potassium [Moles/Vol] 4.6 mmol/L Normal 3.5-5.2 [facility] Work Phone: Comment on above: PATIENT WAS FASTINGP ERFORMED BY: [facility] Eavmdj3785 Bishop RoadDublin [place] [id number] Protein [Mass/Vol] 6.4 g/dL Normal 6.0-8.5 [facility] [place] [facility] Work Phone: Comment on above: PATIENT WAS FASTINGP ERFORMED BY: DOROTHY LabComonserrat Shquin4354 [address] RoadDublin [place] [id number] Sodium [Moles/Vol] 142 mmol/L Normal 134-144 [facility] [place] [facility] Work Phone: Comment on above: PATIENT WAS FASTINGP ERFORMED BY: DOROTHY LabJessenia CastilloWozmul0828 [address] RoadDublin [place] [id number] Urea nitrogen [Mass/Vol] 21 mg/dL Normal 8-27 [facility] Work Phone: Comment on above: PATIENT WAS FASTINGP ERFORMED BY: DOROTHY LabJessenia CastilloTryrcd1868 [address] RoadDublin [place] [id number] Urea nitrogen/Creatinine [Mass ratio] 19 mg/mg Normal 10-22 [facility] Work Phone: Comment on above: PATIENT WAS FASTINGP ERFORMED BY: ODROTHY Castillolin6370 [address] RoadDublin [place] [id number] MICROALBUMINOrdered By: Syst em Ion Implant Machine Operator on 03-22-2016 Albumin DL <= 20 mg/L (U) [Mass/Vol] 13.6 ug/mL Normal Comprehensiv e Internal Medicine Work Phone: Comment on above: PATIENT WAS FASTINGP ERFORMED BY: DOROTHY LabJessenia CastilloQybjaa0553 [address] RoadDublin [place] [id number] Albumin/Creatinine (U) [Mass ratio] 7.5 {mg/g_creat} Normal 0.0-30.0 [facility] Work Phone: Comment on above: PATIENT WAS FASTINGP ERFORMED BY: DOROTHY LabCo Ouhfrs0829 [address] RoadDublin [place] [id number] Creatinine (U) [Mass/Vol] 182.3 mg/dL Normal [facility] Work Phone: Comment on above: PATIENT WAS FASTINGP ERFORMED BY: DOROTHY LabJessenia Kgtqaj2737 [address] RoadDublin [place] [id number] Microscopic ExaminationOrder ed By: Nutritionist on 03-22-2016 Bacteria LM.HPF (Urine sed) [#/Area] None seen Normal Comprehensi ve Internal Medicine Work Phone: Comment on above: PATIENT WAS FASTINGP ERFORMED BY: DOROTHY [facility] Nfajmp[address] [facility]in [place] [id number] Crystals LM Nom (Urine sed) Calcium Oxalate Normal [facility] Work Phone: Comment on above: PATIENT WAS FASTINGP ERFORMED BY: [facility] Lbatzg8633 [facility] [id number] Epithelial cells LM.HPF (Urine sed) [#/Area] 0-10 Normal 0 - 10 [facility] Work Phone: Comment on above: PATIENT WAS FASTINGP ERFORMED BY: DOROTHY [facility] Jlczdv0581 [address] [facility] [id number] Mucus Ql (Urine sed) Present Normal Comp rehensive Internal Medicine Work Phone: Comment on above: PATIENT WAS FASTINGP ERFORMED BY: DOROTHY [facility] Ugsjgl7897 [facility] [id number] RBC LM.HPF (Urine sed) [#/Area] 0-2 Normal 0 - 2 [facility] Work Phone: Comment on above: PATIENT WAS FASTINGP ERFORMED BY: DOROTHY [facility] Gmxofe4646 [facility] [id number] Unidentified crystals LM Ql (Urine sed) Present Abnormal [facility] Work Phone: Comment on above: PATIENT WAS FASTINGP ERFORMED BY: [facility] Wuyxkv2265 [facility] [id number] WBC LM.HPF (Urine sed) [#/Area] 0-5 Normal 0 - 5 [facility] Work Phone: Comment on above: PATIENT WAS FASTINGP ERFORMED BY: [facility] Xcpyxp2442 [facility] [id number] TSH ([id number])Ordered By: Olga Mcgee on 03-22-2016 TSH Qn 0.790 {uIU/mL} Normal 0.450-4.50 0 [facility] Work Phone: Comment on above: PATIENT WAS FASTINGP ERFORMED BY: DOROTHY [facility] Tovgmq8614 [address] RoadDublin [place] [id number] URINALYSIS, W/ MICRO ([id number]) Ordered By: Nutritionist on 03-22-2016 Appearance (U) Clear Normal Comprehens anselmo Internal Medicine Work Phone: Comment on above: PATIENT WAS FASTINGP ERFORMED BY: DOROTHY [facility] Vowuop7902 [address] RoadDublin [place] [id number] Bilirubin Ql (U) Negative Normal Comprehe nsive Internal Medicine Work Phone: Comment on above: PATIENT WAS FASTINGP ERFORMED BY: DOROTHY LabJessenia CastilloNlwnic2494 [address] RoadDublin [place] [id number] Bilirubin Ql (U) Negative Normal Comprehe nsive Internal Medicine; [facility] Work Phone: Color (U) Yellow Normal [facility] Work Phone: Comment on above: PATIENT WAS FASTINGP ERFORMED BY: DOROTHY Castillolin6370 [address] RoadDublin [place] [id number] Glucose Ql (U) Negative Normal Comprehens anselmo [facility] Medicine Work Phone: Comment on above: PATIENT WAS FASTINGP ERFORMED BY: DOROTHY Castillolin6370 [address] RoadDublin [place] [id number] Glucose Ql (U) Negative Normal Comprehens anselmo [facility]; [facility] Work Phone: Hemoglobin Ql (U) Negative Normal Compreh ensive Internal Medicine Work Phone: Comment on above: PATIENT WAS FASTINGP ERFORMED BY: DOROTHY [facility] Hhvwkm0828 [address] RoadDublin [place] [id number] Hemoglobin Ql (U) Negative Normal Compreh ensive Internal Medicine; [facility] Work Phone: Ketones Ql (U) Negative Normal Comprehens anselmo [facility] Work Phone: Comment on above: PATIENT WAS FASTINGP ERFORMED BY: DOROTHY [facility] Jydogy4874 [address] RoadDublin [place] [id number] Ketones Ql (U) Negative Normal Comprehens anselmo [facility] Medicine; [facility] Work Phone: Leukocyte esterase Test strip Ql (U) Negative Normal [facility] Work Phone: Comment on above: PATIENT WAS FASTINGP ERFORMED BY: DOROTHY GilbertoRenukamonserrat MataLghajf6798 [address] RoadDublin [place] [id number] Leukocyte esterase Test strip Ql (U) Negative Normal [facility]; [facility] Work Phone: Microscopic observation LM Nom (Urine sed) See below: Normal [facility] Work Phone: Comment on above: Microscopic was clayton cated and was performed. PATIENT WAS FASTINGP ERFORMED BY: DOROTHY LabJessenia CastilloLelion6349 [address] RoadDublin [place] [id number] Microscopic observation LM Nom (Urine sed) MICRON Normal [facility] Work Phone: Comment on above: Microscopic follows if indicated. PATIENT WAS FASTINGP ERFORMED BY: DOROTHY Castillolin6370 [address] RoadDublin [place] [id number] Nitrite Ql (U) Negative Normal Comprehens anselmo [facility] Work Phone: Comment on above: PATIENT WAS FASTINGP ERFORMED BY: DOROTHY Castillolin6370 [address] RoadDublin [place] [id number] Nitrite Ql (U) Negative Normal Comprehens anselmo [facility]; [facility] Work Phone: pH (U) 6.0 [pH] Normal 5.0-7.5 [facility] Work Phone: Comment on above: PATIENT WAS FASTINGP ERFORMED BY: DOROTHY LabEll[facility] Criloc2876 [address] RoadDublin [place] [id number] Protein Ql (U) Trace Normal Comprehens anselmo Internal Medicine Work Phone: Comment on above: PATIENT WAS FASTINGP ERFORMED BY: DOROTHY LabJessenia Xxnpyc2267 [address] RoadDublin [place] [id number] Specific gravity (U) [Rel density] 1.028 1 Normal 1.005-1.03 0 [facility] Work Phone: Comment on above: PATIENT WAS FASTINGP ERFORMED BY: DOROTHY Mata6370 [facility] [id number] Urobilinogen (U) [Mass/Vol] 0.2 mg/dL Normal 0.2-1.0 [facility]; [facility] Work Phone: Urobilinogen Test strip (U) [Mass/Vol] 0.2 mg/dL Normal 0.2-1.[address] [facility] Work Phone: Comment on above: PATIENT WAS FASTINGP ERFORMED BY: DOROTHY Mata6370 [facility] [id number] Blood Glucose , Office ([phone])Ordered By: Denisse Alvarado on 12-29-2015 Glucose Glucometer (BldC) [Moles/Vol] 86 1 Normal [facility] Work Phone: HgA1C , Office ([phone])Ordere d By: Denisse Alvarado on 12-29-2015 HbA1c (Bld) [Mass fraction] 5.3 % Normal 4.6 - 7.1 [facility] Work Phone: LIPID PANEL ([id number])Ordered B y: Nutritionist on 09-23-2015 Cholesterol [Mass/Vol] 99 mg/dL Abnormal 100-199 [facility] Work Phone: Comment on above: PATIENT WAS FASTINGP ERFORMED BY: DOROTHY Castillolin6370 [facility] [id number] Information: [id number] Cholesterol in HDL [Mass/Vol] 34 mg/dL Abnormal [facility] Work Phone: Comment on above: According to ATP-III Guidelines, HDL-C >59 mg/dL is considered anegative risk factor for CHD. PATIENT WAS FASTINGP ERFORMED BY: DOROTHY LabRenuka Twwynp5440 [facility] [id number] Information: [id number] Cholesterol in LDL [Mass/Vol] 48 mg/dL Normal 0-99 [facility] Work Phone: Comment on above: PATIENT WAS FASTINGP ERFORMED BY: CB [facility]6370 [facility] [id number] Information: [id number] Cholesterol in LDL/Cholesterol in HDL [Mass ratio] 1.4 {ratio_units} Normal 0.0-3.6 [facility] Work Phone: Comment on above: LDL/HDL Ratio Men Wo men 1/2 Avg.Risk 1.0 1.5 Avg.Risk 3.6 3.2 2X Avg.Risk 6.2 5.0 3X Avg.Risk 8.0 6.1 PATIENT WAS FASTINGP ERFORMED BY: DOROTHY [place] 6278870 [facility] [id number] Information: [id number] Cholesterol in VLDL [Mass/Vol] 17 mg/dL Normal 5-40 [facility] Work Phone: Comment on above: PATIENT WAS FASTINGP ERFORMED BY: DOROTHY [place] 6278870 [facility] [id number] Information: [id number] Triglyceride [Mass/Vol] 84 mg/dL Normal 0-149 [facility] Work Phone: Comment on above: PATIENT WAS FASTINGP ERFORMED BY: DOROTHY [place] 6278870 [facility] [id number] Information: [id number] LIPID PANEL ([id number])Ordered B y: Nutritionist on 05-27-2015 Cholesterol [Mass/Vol] 112 mg/dL Normal 100-199 [facility] Work Phone: Comment on above: copy to Numbrs AGpaw; P ATIENT WAS FASTINGPERFORMED BY: DOROTHY [place] 6278870 [facility] [id number]; apt. 06-23-15 Cholesterol in HDL [Mass/Vol] 35 mg/dL Abnormal [facility] Work Phone: Comment on above: According to ATP-III Guidelines, HDL-C >59 mg/dL is considered anegative risk factor for CHD. copy to moodispaw; P ATIENT WAS FASTINGPERFORMED BY: DOROTHY [facility] Cuuykg6710 [address] RoadDublin [place] [id number]; apt. 06-23-15 Cholesterol in LDL [Mass/Vol] 59 mg/dL Normal 0-99 [facility] Work Phone: Comment on above: copy to moodispaw; P ATIENT WAS FASTINGPERFORMED BY: DOROTHY [facility] Gopgxo5843 [address] RoadDublin [place] [id number]; apt. 06-23-15 Cholesterol in LDL/Cholesterol in HDL [Mass ratio] 1.7 {ratio_units} Normal 0.0-3.6 [facility] Work Phone: Comment on above: LDL/HDL Ratio Men Wo men 1/2 Avg.Risk 1.0 1.5 Avg.Risk 3.6 3.2 2X Avg.Risk 6.2 5.0 3X Avg.Risk 8.0 6.1 copy to moodispaw; P ATIENT WAS FASTINGPERFORMED BY: DOROTHY [facility] Nyayyg5076 [address] Roadblin [place] [id number]; apt. 06-23-15 Cholesterol in VLDL [Mass/Vol] 18 mg/dL Normal 5-40 [facility] Work Phone: Comment on above: copy to moodispaw; P ATIENT WAS FASTINGPERFORMED BY: DOROTHY [facility] Labluk8267 [address] Roadblin [place] [id number]; apt. 06-23-15 Triglyceride [Mass/Vol] 89 mg/dL Normal 0-149 [facility] Work Phone: Comment on above: copy to moodispaw; P ATIENT WAS FASTINGPERFORMED BY: CB [facility] Rwyoiu7915 [address] RoadDublin [place] [id number]; apt. 06-23-15 METABOLIC PANEL, COMPREHENSI VE ([id number])Ordered By: Nutritionist on 05-27-2015 Albumin [Mass/Vol] 4.2 g/dL Normal 3.6-4.8 [facility] [place] [facility] Work Phone: Comment on above: PATIENT WAS FASTINGP ERFORMED BY: DOROTHY [facility] Jkijri3193 [address] [facility] Hospitalbl[place] [id number] Information: [id number] Albumin/Globulin [Mass ratio] 1.8 {ratio} Normal 1.1-2.5 [facility] Work Phone: Comment on above: PATIENT WAS FASTINGP ERFORMED BY: [place] 7958370 [facility] [id number] Information: [id number] ALP [Catalytic activity/Vol] 91 [iU]/L Normal 39-117 [facility] Work Phone: Comment on above: PATIENT WAS FASTINGP ERFORMED BY: [address] [id number] Information: [id number] ALP [Catalytic activity/Vol] 91 U/L Normal 39-117 [facility]; [facility] Work Phone: ALT [Catalytic activity/Vol] 13 [iU]/L Normal 0-44 [facility] Work Phone: Comment on above: PATIENT WAS FASTINGP ERFORMED BY: [place] 7958370 [facility] [id number] Information: [id number] ALT [Catalytic activity/Vol] 13 U/L Normal 0-44 [facility]; [facility] Work Phone: AST [Catalytic activity/Vol] 17 [iU]/L Normal 0-40 [facility] Work Phone: Comment on above: PATIENT WAS FASTINGP ERFORMED BY: [address] [id number] Information: [id number] AST [Catalytic activity/Vol] 17 U/L Normal 0-40 [facility]; [facility] Work Phone: Bilirubin [Mass/Vol] 0.5 mg/dL Normal 0.0-1.2 [facility] Work Phone: Comment on above: PATIENT WAS FASTINGP ERFORMED BY: [address] [id number] Information: [id number] Calcium [Mass/Vol] 8.5 mg/dL Abnormal 8.6-10.2 [facility] [place] [facility] Work Phone: Comment on above: PATIENT WAS FASTINGP ERFORMED BY: [facility] Twynrx1902 [facility] [id number] Information: [id number] Chloride [Moles/Vol] 104 mmol/L Normal 97-108 Comp [facility] Work Phone: Comment on above: PATIENT WAS FASTINGP ERFORMED BY: [facility] Znnqxr0144 [facility] [id number] Information: [id number] CO2 [Moles/Vol] 24 mmol/L Normal 18-29 [facility] Work Phone: Comment on above: PATIENT WAS FASTINGP ERFORMED BY: [facility] Vachrz4993 [facility] [id number] Information: [id number] Creatinine [Mass/Vol] 0.99 mg/dL Normal 0.76-1.27 [facility] Work Phone: Comment on above: PATIENT WAS FASTINGP ERFORMED BY: [facility] Rwloqq5243 [facility] [id number] Information: [id number] GFR/1.73 sq M predicted among blacks CKD-EPI (S/P/Bld) [Vol rate/Area] 89 mL/min/1.73 Normal [facility] Work Phone: Comment on above: PATIENT WAS FASTINGP ERFORMED BY: [facility] Kdpxis6786 [facility] [id number] Information: [id number] GFR/1.73 sq M predicted among non-blacks CKD-EPI (S/P/Bld) [Vol rate/Area] 77 mL/min/1.73 Normal [facility] Work Phone: Comment on above: PATIENT WAS FASTINGP ERFORMED BY: [place] 7958370 [facility] [id number] Information: [id number] Globulin (S) [Mass/Vol] 2.3 g/dL Normal 1.5-4.5 [facility] Work Phone: Comment on above: PATIENT WAS FASTINGP ERFORMED BY: [place] 7958370 [facility] [id number] Information: [id number] Glucose [Mass/Vol] 93 mg/dL Normal 65-99 [facility] [place] [facility] Work Phone: Comment on above: PATIENT WAS FASTINGP ERFORMED BY: [place] 7958370 [facility] [id number] Information: [id number] Potassium [Moles/Vol] 4.7 mmol/L Normal 3.5-5.2 [facility] Work Phone: Comment on above: PATIENT WAS FASTINGP ERFORMED BY: [place] 7958370 [facility] [id number] Information: [id number] Protein [Mass/Vol] 6.5 g/dL Normal 6.0-8.5 [facility] [place] [facility] Work Phone: Comment on above: PATIENT WAS FASTINGP ERFORMED BY: [place] 7958370 [facility] [id number] Information: [id number] Sodium [Moles/Vol] 143 mmol/L Normal 134-144 [facility] [place] [facility] Work Phone: Comment on above: PATIENT WAS FASTINGP ERFORMED BY: [facility]6370 [facility] [id number] Information: [id number] Urea nitrogen [Mass/Vol] 23 mg/dL Normal 8-27 [facility] Work Phone: Comment on above: PATIENT WAS FASTINGP ERFORMED BY: LabElizabeth [place] 8571170 [facility] [id number] Information: [id number] Urea nitrogen/Creatinine [Mass ratio] 23 mg/mg Abnormal 10- [facility] Work Phone: Comment on above: PATIENT WAS FASTINGP ERFORMED BY: DOROTHY [facility] Hrrlkq0599 [address] [facility] [id number] Information: [id number] Office Visiton 03-31-2015 cardiac risk group C Invalid Interpretation Code [employer] [facility] [employer] Work Phone: General cardiovascular disease 10Y risk [#] [place].D'Agostin o N/A Invalid Interpretation Code [employer] Work Phone: Clinical Lists Update: 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 Chloride molar conc 105 mmol/L Invalid Interpretation Code [employer] Work Phone: CO2 27 mmol/L Invalid Interpretation Code [employer] Work Phone: CO2 ppres (BldV) 27 mmol/L Invalid Interpretation Code [employer] Work Phone: Creatinine mass conc 1.10 mg/dL Invalid Interpretation Code [employer] Work Phone: Hematocrit (HCT) 40.7 % Invalid Interpretation Code [employer] Work Phone: Hematocrit Volume Fraction (Bld) 40.7 % [employer] Work Phone: Hemoglobin mass conc (Bld) 13.7 g/dL Invalid Interpretation Code [employer] Work Phone: Magnesium mass conc 2.1 mg/dL Invalid Interpretation Code [employer] [facility] [employer] Work Phone: Platelets 190 10*3/mm3 Invalid Interpretation Code [employer] Work Phone: Platelets #/vol (Bld) 190 10*3/mm3 [employer] Work Phone: Potassium molar conc 3.5 mmol/L Invalid Interpretation Code [employer] Work Phone: Sodium molar conc 140 mmol/L Invalid Interpretation Code [employer] Work Phone: Urea nitrogen mass conc 25 mg/dL Invalid Interpretation Code [employer] [facility] Work Phone: WBC #/vol (Bld) 9.8 10*3/uL [facility] Work Phone: WBC (Leukocytes) 9.8 10*3/uL Invalid Interpretation Code [facility] Work Phone: Clinical Lists Update: 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 1'TROP' Serial specimen #1, #2, #3, or #4: 1Test performed at:[facility] [address] [place] [address] Basic metabolic 2000 panel 136 mmol/L Normal 136-145 [facility] Work Phone: Comment on above: Serial Specimen #1, #2 or #3? 1'TROP' Serial specimen #1, #2, #3, or #4: 1Test performed at:[facility] [address] [place] [address] Basic metabolic 2000 panel 155 mg/dL Abnormal 70-110 [facility] Work Phone: Comment on above: Fasting Glucose resu lt greater than or equal to 126 mg/dLsuggests DIABETES MELLITUS per A.D.A. criteria. Serial Specimen #1, #2 or #3? 1'TROP' Serial specimen #1, #2, #3, or #4: 1Test performed at:[facility] [address] [place] [address] [place] [id number] Basic metabolic 2000 panel 19 mg/dL Abnormal 7-18 [facility] Work Phone: Comment on above: Serial Specimen #1, #2 or #3? 1'TROP' Serial specimen #1, #2, #3, or #4: 1Test performed at:[facility] [address] [place], [place] [id number] Basic metabolic 2000 panel 1.6 mg/dL Abnormal 0.8-1.3 [facility] Work Phone: Comment on above: Serial Specimen #1, #2 or #3? 1'TROP' Serial specimen #1, #2, #3, or #4: 1Test performed at:[facility] [address] [place] [address] Basic metabolic 2000 panel 46 mL/min Abnormal [facility] Work Phone: Comment on above: Serial Specimen #1, #2 or #3? 1'TROP' Serial specimen #1, #2, #3, or #4: 1Test performed at:[facility] [address] [place] [address] Basic metabolic 2000 panel 56 mL/min Abnormal [facility] Work Phone: Comment on above: Serial Specimen #1, #2 or #3? 1'TROP' Serial specimen #1, #2, #3, or #4: 1Test performed at:[facility] [address] [place] [address] Basic metabolic 2000 panel 5 1 Normal 5-15 [facility] Work Phone: Comment on above: Serial Specimen #1, #2 or #3? 1'TROP' Serial specimen #1, #2, #3, or #4: 1Test performed at:[facility] [address] [place], [place] [id number] Basic metabolic 2000 panel 11.9 {RATIO} Normal 10-20 [facility] Work Phone: Comment on above: Serial Specimen #1, #2 or #3? 1'TROP' Serial specimen #1, #2, #3, or #4: 1Test performed at:[facility] Ircpijoblr0810 [facility] [address] Basic metabolic 2000 panel 8.7 mg/dL Normal 8.5-10.1 [facility] Work Phone: Comment on above: Serial Specimen #1, #2 or #3? 1'TROP' Serial specimen #1, #2, #3, or #4: 1Test performed at:[facility] [address] [place] [id number] Basic metabolic 2000 panel 5.1 mmol/L Normal 3.5-5.1 [facility] Work Phone: Comment on above: Serial Specimen #1, #2 or #3? 1'TROP' Serial specimen #1, #2, #3, or #4: 1Test performed at:[facility] [address] [place] [address] Basic metabolic 2000 panel 102 mmol/L Normal 98-107 [facility] Work Phone: Comment on above: Serial Specimen #1, #2 or #3? 1'TROP' Serial specimen #1, #2, #3, or #4: 1Test performed at:[facility] [address] [place] [address] Basic metabolic 2000 panel 29.0 mmol/L Normal 21.0-32.0 [facility] Work Phone: Comment on above: Serial Specimen #1, #2 or #3? 1'TROP' Serial specimen #1, #2, #3, or #4: 1Test performed at:[facility] [address] [place] [address] CBC W/Diff, AutomatedOrdered By: Nutritionist on 03-15-2015 Absolute Neut 11.7 {X10_3/uL} Abnormal 2.0-7.7 [facility] [place] [facility] Work Phone: Comment on above: Test performed at:[facility] [address] [place] [address] ; Ordered by another doctor Basophils/100 WBC (Bld) 0.7 % Normal 0-1 [facility] Work Phone: Comment on above: Test performed at:[facility] [address] [place] [address] ; Ordered by another doctor Eosinophils/100 WBC (Bld) 2.0 % Normal 0-5 [facility] Work Phone: Comment on above: Test performed at:[facility] [address] [place] [address] ; Ordered by another doctor Erythrocyte distribution width (RBC) [Ratio] 13.3 % Normal 11.6-14.6 [facility] Work Phone: Comment on above: Test performed at:[facility] [address] [place] [address] ; Ordered by another doctor Hematocrit (Bld) [Volume fraction] 48.5 % Normal 40-54 [facility] Work Phone: Comment on above: Test performed at:[facility] [address] [place] [address] ; Ordered by another doctor Hemoglobin (Bld) [Mass/Vol] 17.0 g/dL Abnormal 13.0-16.5 [facility] Work Phone: Comment on above: Test performed at:[facility] [address] [place] [address] ; Ordered by another doctor IM GRAN % 0.300 % Normal 0.0-0.9 [facility] Work Phone: Comment on above: IG% - Immature Granu locytes (promyelocytes, myelocytes andmetamyelocytes) > 1% indicates that a LEFT SHIFT is Present. Test performed at:[facility] [address] [place], [place] [address] ; Ordered by another doctor Lymphocytes (Bld) [#/Vol] 2.16 {X10_3/ul} Normal 0.83-4.51 [facility] Work Phone: Comment on above: Test performed at:[facility] [address] [place] [address] ; Ordered by another doctor Lymphocytes/100 WBC (Bld) 14.3 % Abnormal 19-41 [facility] Work Phone: Comment on above: Test performed at:[facility] [address] [place] [address] ; Ordered by another doctor MCH (RBC) [Entitic mass] 33.1 pg Abnormal 27.0-32.0 [facility] Work Phone: Comment on above: Test performed at:[facility] [address] [place] [address] ; Ordered by another doctor MCHC (RBC) [Mass/Vol] 35.1 {g/gl} Normal 32-36 [facility] Work Phone: Comment on above: Test performed at:[facility] [address] [place] [address] ; Ordered by another doctor MCV (RBC) [Entitic vol] 94.5 fL Abnormal 80-94 [facility] Work Phone: Comment on above: Test performed at:[facility] [address] [place] [address] ; Ordered by another doctor Monocytes/100 WBC (Bld) 5.0 % Normal 0-10 [facility] Work Phone: Comment on above: Test performed at:[facility] [address] [place] [address] ; Ordered by another doctor Neutrophils/100 WBC (Bld) 77.7 % Abnormal 47-70 [facility] Work Phone: Comment on above: Test performed at:[facility] [address] [place] [address] ; Ordered by another doctor Platelet mean volume (Bld) [Entitic vol] 9.4 fL Normal 6.2-12.0 [facility] Work Phone: Comment on above: Test performed at:[facility] [address] [place] [address] ; Ordered by another doctor Platelets (Bld) [#/Vol] 300 10*3/uL Normal 150-450 [facility] Work Phone: Comment on above: Test performed at:[facility] [address] [place] [address] ; Ordered by another doctor RBC (Bld) [#/Vol] 5.13 {M/mm3} Normal 4.6-6.2 [facility] Internal Medicine Work Phone: Comment on above: Test performed at:[facility] [address] [place] [address] ; Ordered by another doctor RDW SD 44.4 fL Abnormal 35.1-43.9 [facility] Internal Medicine Work Phone: Comment on above: Test performed at:[facility] [address] [place] [address] ; Ordered by another doctor WBC (Bld) [#/Vol] 15.1 10*3/uL Abnormal 4.4-11.0 [facility] Internal Medicine Work Phone: Comment on above: Test performed at:[facility] [address] [place] [address] ; Ordered by another doctor CK-MB Quantitative and Index Ordered By: Nutritionist on 03-15-2015 CK.MB [Mass/Vol] 1.0 ng/mL Normal 0.0-5.0 Comprehe nsive Internal Medicine Work Phone: Comment on above: CK-MB and RI Interpr etation MB Relative Index Non-AMI 5 5 > 4 Serial Specimen #1, #2 or #3? 1'TROP' Serial specimen #1, #2, #3, or #4: 1Test performed at:[facility] [address] [place] [address] CK-MB Quantitative and Index 101 U/L Normal 39-308 [facility] Work Phone: Comment on above: Serial Specimen #1, #2 or #3? 1'TROP' Serial specimen #1, #2, #3, or #4: 1Test performed at:[facility] [address] [place] [address] Troponin-IOrdered By: Nutritionist on 03-15-2015 Troponin I.cardiac [Mass/Vol] ng/mL Normal [facility] Work Phone: Comment on above: TROPONIN-I EXPECTED VALUES <0.05 NEGATIVE 0.06 - 0.59 AT RISK OF MD > OR = 0.60 SUGGEST MD Serial Specimen #1, #2 or #3? 1'TROP' Serial specimen #1, #2, #3, or #4: 1Test performed at:[facility] [address] [place] [address] CBC, Platelets & Auto Diff ( [id number])Ordered By: Nutritionist on 12-07-2014 Basophils (Bld) [#/Vol] 0.0 {x10E3/uL} Normal 0.0-0.2 [facility] Work Phone: Comment on above: PATIENT NOT FASTINGP ERFORMED BY: [facility] [id number] Information: [id number] Basophils (Bld) [#/Vol] 0.0 10*3/uL Normal 0.0-0.2 [facility]; [facility] Work Phone: Basophils/100 WBC (Bld) 0 % Normal [facility] Work Phone: Comment on above: PATIENT NOT FASTINGP ERFORMED BY: [facility]ongo.[facility]First[facility] [id number] Information: [id number] Eosinophils (Bld) [#/Vol] 0.3 {x10E3/uL} Normal 0.0-0.4 [facility] Work Phone: Comment on above: PATIENT NOT FASTINGP ERFORMED BY: DOROTHY Castillolin6370 [facility] [id number] Information: [id number] Eosinophils (Bld) [#/Vol] 0.3 10*3/uL Normal 0.0-0.4 [facility]; [facility] Work Phone: Eosinophils/100 WBC (Bld) 4 % Normal [facility] Work Phone: Comment on above: PATIENT NOT FASTINGP ERFORMED BY: DOROTHY Camarena [address] [id number] Information: [id number] Erythrocyte distribution width (RBC) [Ratio] 13.6 % Normal 12.3-15.4 [facility] Work Phone: Comment on above: PATIENT NOT FASTINGP ERFORMED BY: [address] [id number] Information: [id number] Hematocrit (Bld) [Volume fraction] 46.0 % Normal 37.5-51.0 [facility] Work Phone: Comment on above: PATIENT NOT FASTINGP ERFORMED BY: [address] [id number] Information: [id number] Hemoglobin (Bld) [Mass/Vol] 15.9 g/dL Normal 12.6-17.7 [facility] Work Phone: Comment on above: PATIENT NOT FASTINGP ERFORMED BY: DOROTHY [address] [id number] Information: [id number] Immature granulocytes (Bld) [#/Vol] 0.0 {x10E3/uL} Normal 0.0-0.1 [facility] Work Phone: Comment on above: PATIENT NOT FASTINGP ERFORMED BY: DOROTHY [facility]Stra[facility] Surgery6370 [facility] [id number] Information: [id number] Immature granulocytes (Bld) [#/Vol] 0.0 10*3/uL Normal 0.0-0.1 [facility]; [facility] Work Phone: Immature granulocytes/100 WBC (Bld) 0 % Normal [facility] Work Phone: Comment on above: PATIENT NOT FASTINGP ERFORMED BY: DOROTHY [place] 6[address]8870 [facility] [id number] Information: [id number] Lymphocytes (Bld) [#/Vol] 2.2 {x10E3/uL} Normal 0.7-3.1 [facility] Work Phone: Comment on above: PATIENT NOT FASTINGP ERFORMED BY: DOROTHY [address] [id number] Information: [id number] Lymphocytes (Bld) [#/Vol] 2.2 10*3/uL Normal 0.7-3.1 [facility]; [facility] Work Phone: Lymphocytes/100 WBC (Bld) 23 % Normal [facility] Work Phone: Comment on above: PATIENT NOT FASTINGP ERFORMED BY: DOROTHY [place] 6278870 [facility] [id number] Information: [id number] MCH (RBC) [Entitic mass] 31.7 pg Normal 26.6-33.0 [facility] Work Phone: Comment on above: PATIENT NOT FASTINGP ERFORMED BY: [place] 7958370 [facility] [id number] Information: [id number] MCHC (RBC) [Mass/Vol] 34.6 g/dL Normal 31.5-35.7 [facility] Work Phone: Comment on above: PATIENT NOT FASTINGP ERFORMED BY: [facility]6370 [facility] [id number] Information: [id number] MCV (RBC) [Entitic vol] 92 fL Normal 79-97 [facility] Work Phone: Comment on above: PATIENT NOT FASTINGP ERFORMED BY: [address] [id number] Information: [id number] Monocytes (Bld) [#/Vol] 0.8 {x10E3/uL} Normal 0.1-0.9 [facility] Work Phone: Comment on above: PATIENT NOT FASTINGP ERFORMED BY: [facility] I[address]vir[address] [id number] Information: [id number] Monocytes (Bld) [#/Vol] 0.8 10*3/uL Normal 0.1-0.9 [facility]; [facility] Work Phone: Monocytes/100 WBC (Bld) 8 % Normal [facility] Work Phone: Comment on above: PATIENT NOT FASTINGP ERFORMED BY: [facility] [address] [id number] Information: [id number] Neutrophils (Bld) [#/Vol] 6.2 {x10E3/uL} Normal 1.4-7.0 [facility] Work Phone: Comment on above: PATIENT NOT FASTINGP ERFORMED BY: [place] 7958370 [facility] [id number] Information: [id number] Neutrophils (Bld) [#/Vol] 6.2 10*3/uL Normal 1.4-7.0 [facility]; [facility] Work Phone: Neutrophils/100 WBC (Bld) 65 % Normal [facility] Work Phone: Comment on above: PATIENT NOT FASTINGP ERFORMED BY: [place] 7958370 [facility] [id number] Information: [id number] Platelets (Bld) [#/Vol] 223 {x10E3/uL} Normal 150-379 [facility] Internal Medicine Work Phone: Comment on above: PATIENT NOT FASTINGP ERFORMED BY: DOROTHY Tello70 [facility] [id number] Information: [id number] Platelets (Bld) [#/Vol] 223 10*3/uL Normal 150-379 [facility] Internal Medicine; [facility] Work Phone: RBC (Bld) [#/Vol] 5.02 {x10E6/uL} Normal 4.14-5.80 [facility] Internal Medicine Work Phone: Comment on above: PATIENT NOT FASTINGP ERFORMED BY: DOROTHY Castillolin6370 [facility] [id number] Information: [id number] RBC (Bld) [#/Vol] 5.02 10*6/uL Normal 4.14-5.80 [facility] Internal Medicine; [facility] Work Phone: WBC (Bld) [#/Vol] 9.6 {x10E3/uL} Normal 3.4-10.8 [facility] Internal Medicine Work Phone: Comment on above: PATIENT NOT FASTINGP ERFORMED BY: DOROTHY Castillolin6370 [facility] [id number] Information: [id number] WBC (Bld) [#/Vol] 9.6 10*3/uL Normal 3.4-10.8 [facility] Internal Medicine; [facility] Work Phone: Metabolic Panel, Basic ([phone])Ordered By: Nutritionist on 12-07-2014 Calcium [Mass/Vol] 9.1 mg/dL Normal 8.6-10.2 [facility] Internal [facility] Work Phone: Comment on above: PATIENT NOT FASTINGP ERFORMED BY: DOROTHY Castillolin6370 [facility] [id number] Chloride [Moles/Vol] 101 mmol/L Normal 97-108 Comp rehensive Internal Medicine Work Phone: Comment on above: PATIENT NOT FASTINGP ERFORMED BY: DOROTHY LabComonserrat CastilloWihgqr2167 [facility] [id number] CO2 [Moles/Vol] 23 mmol/L Normal 18-29 [facility]hen [facility] Internal Medicine Work Phone: Comment on above: PATIENT NOT FASTINGP ERFORMED BY: DOROTHY LabCoHoboken University Medical CenterEfabgd8052 [facility] [id number] Creatinine [Mass/Vol] 1.06 mg/dL Normal 0.76-1.27 [facility] Work Phone: Comment on above: PATIENT NOT FASTINGP ERFORMED BY: DOROTHY LabEllis [facility] Atauxu3064 [facility] [id number] GFR/1.73 sq M predicted among blacks CKD-EPI (S/P/Bld) [Vol rate/Area] 83 mL/min/1.73 Normal [facility] Work Phone: Comment on above: PATIENT NOT FASTINGP ERFORMED BY: DOROTHY Camarena Sdithz2057 [facility] [id number] GFR/1.73 sq M predicted among non-blacks CKD-EPI (S/P/Bld) [Vol rate/Area] 72 mL/min/1.73 Normal [facility] Work Phone: Comment on above: PATIENT NOT FASTINGP ERFORMED BY: DOROTHY LabCo Dikcwq1546 [facility] [id number] Glucose [Mass/Vol] 92 mg/dL Normal 65-99 Compre [facility] Internal Medicine Work Phone: Comment on above: PATIENT NOT FASTINGP ERFORMED BY: DOROTHY LabRenuka Kddbma4178 [facility] [id number] Potassium [Moles/Vol] 4.2 mmol/L Normal 3.5-5.2 [facility] Work Phone: Comment on above: PATIENT NOT FASTINGP ERFORMED BY: DOROTHY LabEllis [facility] Kmhlxn5905 [facility] [id number] Sodium [Moles/Vol] 142 mmol/L Normal 134-144 [facility] [place] Internal Medicine Work Phone: Comment on above: PATIENT NOT FASTINGP ERFORMED BY: LabCo Lkrzzs9536 [facility] [id number] Urea nitrogen [Mass/Vol] 16 mg/dL Normal 8-27 [facility] Work Phone: Comment on above: PATIENT NOT FASTINGP ERFORMED BY: LabStraith [facility] Surgery6370 [facility] [id number] Urea nitrogen/Creatinine [Mass ratio] 15 mg/mg Normal 10- [facility] Work Phone: Comment on above: PATIENT NOT FASTINGP ERFORMED BY: [facility] Mkvmrl4225 [facility] [id number] PT (Prothrobim Time) ([id number]) Ordered By: Nutritionist on 12-07-2014 INR Coag (PPP) [Relative time] 1.0 {INR} Normal 0.8-1.2 [facility] Work Phone: Comment on above: Reference interval i s for non-anticoagulated patients. . Suggested INR therapeutic range for Vitamin K antagonist therapy: Standard Dose (moderate intensity therapeutic range): 2.0 - 3.0 Higher intensity therapeutic range 2.5 - 3.5 PATIENT NOT FASTINGP ERFORMED BY: [facility]Stra[facility] Surgery6370 [facility] [id number] PT Coag (PPP) [Time] 10.1 {sec} Normal 9.1-12.0 Comp [facility] Internal [facility] Work Phone: Comment on above: PATIENT NOT FASTINGP ERFORMED BY: LabStraith [facility] Surgery6370 [facility] [id number] PT Coag (PPP) [Time] 10.1 s Normal 9.1-12.0 Comp rehensive Internal Medicine; [facility] Work Phone: CATECHOLAMINES TOTAL, URINE ([id number])Ordered By: Nutritionist on 05-28-2014 Dopamine (24H U) [Mass/Time] 117 {ug/24_hr} Normal 0-510 [facility] Work Phone: Comment on above: PATIENT NOT FASTINGP ERFORMED BY: BN [facility] Mocqvqmyik9878 [facility] [id number] Information: SRC:LEANNA [id number] START 4@6:10AM 1,650ML FINISH 05/28/14@6: Dopamine (U) [Mass/Vol] 71 ug/L Normal [facility] Work Phone: Comment on above: PATIENT NOT FASTINGP ERFORMED BY: BN [facility] [address] [id number] Information: SRC:LEANNA [id number] START 4@6:10AM 1,650ML FINISH 05/28/14@6: Epinephrine (24H U) [Mass/Time] 7 {ug/24_hr} Normal 0-20 [facility] Work Phone: Comment on above: PATIENT NOT FASTINGP ERFORMED BY: BN [facility] Xqyv[address] [id number] Information: SRC:LEANNA [id number] START 4@6:10AM 1,650ML FINISH 05/28/14@6: Epinephrine (U) [Mass/Vol] 4 ug/L Normal [facility] Work Phone: Comment on above: PATIENT NOT FASTINGP ERFORMED BY: BN [facility] Yxdtphxq[address] [id number] Information: SRC:LEANNA [id number] START 4@6:10AM 1,650ML FINISH 05/28/14@6: Norepinephrine (24H U) [Mass/Time] 51 {ug/24_hr} Normal 0-135 [facility] Work Phone: Comment on above: PATIENT NOT FASTINGP ERFORMED BY: BN [facility] W[address]ft[address] [id number] Information: SRC:LEANNA [id number] START 4@6:10AM 1,650ML FINISH 05/28/14@6: Norepinephrine (U) [Mass/Vol] 31 ug/L Normal [facility] Work Phone: Comment on above: PATIENT NOT FASTINGP ERFORMED BY: BN [facility] Bxxlmxucpb3052 [facility] [id number] Information: SRC:LEANNA [id number] START 4@6:10AM 1,650ML FINISH 05/28/14@6: METANEPHRINES - URINE ([id number] )Ordered By: Nutritionist on 05-28-2014 Metanephrine (24H U) [Mass/Time] 135 {ug/24_hr} Normal 45-290 [facility] Work Phone: Comment on above: (Hypertensive) >17 y ears 11 months: 35 - 460 PATIENT NOT FASTINGP ERFORMED BY: BN [facility] [address] [id number] Metanephrines (24H U) [Mass/Vol] 82 ug/L Normal [facility] Work Phone: Comment on above: PATIENT NOT FASTINGP ERFORMED BY: BN [facility] Nxqhhpflpo6538 [facility] [id number] Normetanephrine (24H U) [Mass/Time] 343 {ug/24_hr} Normal 82-500 [facility] Work Phone: Comment on above: (Hypertensive) >17 y ears 11 months: 110 - 1050 PATIENT NOT FASTINGP ERFORMED BY: BN [facility] Eobkbaxghz8641 [facility] [id number] Normetanephrine (24H U) [Mass/Vol] 208 ug/L Normal [facility] Work Phone: Comment on above: PATIENT NOT FASTINGP ERFORMED BY: BN [facility] Mwtodokpyq0375 [facility] [id number] URINE VMA ([id number])Ordered By: Nutritionist on 05-28-2014 Vanillylmandelate (24H U) [Mass/Time] 3.1 {mg/24_hr} Normal 0.0-7.5 Comprehensiv e Internal Medicine Work Phone: Comment on above: PATIENT NOT FASTINGP ERFORMED BY: iContactCape Regional Medical CenterYizemzduza3224 [facility] [id number] Vanillylmandelate (U) [Mass/Vol] 1.9 mg/L Normal [facility] Work Phone: Comment on above: PATIENT NOT FASTINGP ERFORMED BY: LabCoCape Regional Medical CenterDofjctbaea3959 [facility] [id number] CBC, Platelets & Auto Diff ( [id number])Ordered By: Nutritionist on 05-25-2014 Basophils (Bld) [#/Vol] 0.1 {x10E3/uL} Normal 0.0-0.2 [facility] Work Phone: Comment on above: PATIENT NOT FASTINGP ERFORMED BY: iContactHoboken University Medical CenterAgihcf0651 [facility] [id number] Information: [id number] Basophils (Bld) [#/Vol] 0.1 10*3/uL Normal 0.0-0.2 [facility]; [facility] Work Phone: Basophils/100 WBC (Bld) 1 % Normal [facility] Work Phone: Comment on above: PATIENT NOT FASTINGP ERFORMED BY: iContactHoboken University Medical CenterBrnxug1156 [facility] [id number] Information: [id number] Eosinophils (Bld) [#/Vol] 0.3 {x10E3/uL} Normal 0.0-0.4 [facility] Work Phone: Comment on above: PATIENT NOT FASTINGP ERFORMED BY: iContactHoboken University Medical CenterFnsznm7200 [facility] [id number] Information: [id number] Eosinophils (Bld) [#/Vol] 0.3 10*3/uL Normal 0.0-0.4 [facility]; [facility] Work Phone: Eosinophils/100 WBC (Bld) 4 % Normal [facility] Work Phone: Comment on above: PATIENT NOT FASTINGP ERFORMED BY: DOROTHY MaciasCoJoseph [place] 7220570 [facility] [id number] Information: [id number] Erythrocyte distribution width (RBC) [Ratio] 14.0 % Normal 12.3-15.4 [facility] Work Phone: Comment on above: PATIENT NOT FASTINGP ERFORMED BY: [facility] HospitalCo[address] [id number] Information: [id number] Hematocrit (Bld) [Volume fraction] 47.4 % Normal 37.5-51.0 [facility] Work Phone: Comment on above: PATIENT NOT FASTINGP ERFORMED BY: DOROTHY MaciasEllis Fische[facility] Center Xhyisy42[address] [id number] Information: [id number] Hemoglobin (Bld) [Mass/Vol] 16.3 g/dL Normal 12.6-17.7 [facility] Work Phone: Comment on above: PATIENT NOT FASTINGP ERFORMED BY: [address] [id number] Information: [id number] Immature granulocytes (Bld) [#/Vol] 0.0 {x10E3/uL} Normal 0.0-0.1 [facility] Work Phone: Comment on above: PATIENT NOT FASTINGP ERFORMED BY: [address] [id number] Information: [id number] Immature granulocytes (Bld) [#/Vol] 0.0 10*3/uL Normal 0.0-0.1 [facility]; [facility] Work Phone: Immature granulocytes/100 WBC (Bld) 0 % Normal [facility] Work Phone: Comment on above: PATIENT NOT FASTINGP ERFORMED BY: [address] [id number] Information: [id number] Lymphocytes (Bld) [#/Vol] 2.0 {x10E3/uL} Normal 0.7-3.1 [facility] Work Phone: Comment on above: PATIENT NOT FASTINGP ERFORMED BY: DOROTHY Mata6370 [facility] [id number] Information: [id number] Lymphocytes (Bld) [#/Vol] 2.0 10*3/uL Normal 0.7-3.1 [facility]; [facility] Work Phone: Lymphocytes/100 WBC (Bld) 24 % Normal [facility] Work Phone: Comment on above: PATIENT NOT FASTINGP ERFORMED BY: DOROTHY Nicol Xcnkgu[address] [id number] Information: [id number] MCH (RBC) [Entitic mass] 31.7 pg Normal 26.6-33.0 [facility] Work Phone: Comment on above: PATIENT NOT FASTINGP ERFORMED BY: [facility]Ell[facility] Zhjiyf552[address] [id number] Information: [id number] MCHC (RBC) [Mass/Vol] 34.4 g/dL Normal 31.5-35.7 [facility] Work Phone: Comment on above: PATIENT NOT FASTINGP ERFORMED BY: [address] [id number] Information: [id number] MCV (RBC) [Entitic vol] 92 fL Normal 79-97 [facility] Work Phone: Comment on above: PATIENT NOT FASTINGP ERFORMED BY: [address] [id number] Information: [id number] Monocytes (Bld) [#/Vol] 0.6 {x10E3/uL} Normal 0.1-0.9 [facility] Work Phone: Comment on above: PATIENT NOT FASTINGP ERFORMED BY: [facility]6370 [facility] [id number] Information: [id number] Monocytes (Bld) [#/Vol] 0.6 10*3/uL Normal 0.1-0.9 [facility]; [facility] Work Phone: Monocytes/100 WBC (Bld) 7 % Normal [facility] Work Phone: Comment on above: PATIENT NOT FASTINGP ERFORMED BY: [place] 7958370 [facility] [id number] Information: [id number] Neutrophils (Bld) [#/Vol] 5.5 {x10E3/uL} Normal 1.4-7.0 [facility] Work Phone: Comment on above: PATIENT NOT FASTINGP ERFORMED BY: [address] [id number] Information: [id number] Neutrophils (Bld) [#/Vol] 5.5 10*3/uL Normal 1.4-7.0 [facility]; [facility] Work Phone: Neutrophils/100 WBC (Bld) 64 % Normal [facility] Work Phone: Comment on above: PATIENT NOT FASTINGP ERFORMED BY: [place] 7958370 [facility] [id number] Information: [id number] Platelets (Bld) [#/Vol] 179 {x10E3/uL} Normal 150-379 [facility] Work Phone: Comment on above: PATIENT NOT FASTINGP ERFORMED BY: [place] [id number] [facility] [id number] Information: [id number] Platelets (Bld) [#/Vol] 179 10*3/uL Normal 150-379 [facility]; [facility] Work Phone: RBC (Bld) [#/Vol] 5.14 {x10E6/uL} Normal 4.14-5.80 [facility] Internal Medicine Work Phone: Comment on above: PATIENT NOT FASTINGP ERFORMED BY: DOROTHY LabComonserrat Yiobgb2389 [facility] [id number] Information: [id number] RBC (Bld) [#/Vol] 5.14 10*6/uL Normal 4.14-5.80 [facility] Internal Medicine; [facility] Work Phone: WBC (Bld) [#/Vol] 8.6 {x10E3/uL} Normal 3.4-10.8 [facility] Internal Medicine Work Phone: Comment on above: PATIENT NOT FASTINGP ERFORMED BY: DOROTHY LabComonserrat CastilloPtjqak9548 [facility] [id number] Information: [id number] WBC (Bld) [#/Vol] 8.6 10*3/uL Normal 3.4-10.8 [facility] Medicine; [facility] Work Phone: Metabolic Panel, Comprehensi ve ([id number])Ordered By: Nutritionist on 05-25-2014 Albumin [Mass/Vol] 4.0 g/dL Normal 3.6-4.8 [facility] Internal Medicine Work Phone: Comment on above: PATIENT NOT FASTINGP ERFORMED BY: DOROTHY LabComonserrat CastilloPhmkdm5662 [facility] [id number] Albumin/Globulin [Mass ratio] 1.7 {ratio} Normal 1.1-2.5 [facility] Internal Medicine Work Phone: Comment on above: PATIENT NOT FASTINGP ERFORMED BY: DOROTHY [facility] Zdzzaq6043 [facility] [id number] ALP [Catalytic activity/Vol] 90 [iU]/L Normal 39-117 [facility] Work Phone: Comment on above: PATIENT NOT FASTINGP ERFORMED BY: DOROTHY [facility] Irrtzx2383 [facility] [id number] ALP [Catalytic activity/Vol] 90 U/L Normal 39-117 [facility]; [facility] Work Phone: ALT [Catalytic activity/Vol] 15 [iU]/L Normal 0-44 [facility] Work Phone: Comment on above: PATIENT NOT FASTINGP ERFORMED BY: CB [facility] Hbrism1323 [address] RoadDublin [place] [id number] ALT [Catalytic activity/Vol] 15 U/L Normal 0-44 [facility]; [facility] Work Phone: AST [Catalytic activity/Vol] 14 [iU]/L Normal 0-40 [facility] Work Phone: Comment on above: PATIENT NOT FASTINGP ERFORMED BY: CB [facility] Zodkvf3407 Bishop RoadDublin [place] [id number] AST [Catalytic activity/Vol] 14 U/L Normal 0-40 [facility]; [facility] Internal Medicine Work Phone: Bilirubin [Mass/Vol] 0.4 mg/dL Normal 0.0-1.2 [facility] Work Phone: Comment on above: PATIENT NOT FASTINGP ERFORMED BY: CB [facility] Gfdant7608 [address] RoadDublin [place] [id number] Calcium [Mass/Vol] 8.7 mg/dL Normal 8.6-10.2 [facility] Internal Medicine Work Phone: Comment on above: PATIENT NOT FASTINGP ERFORMED BY: CB [facility] Hxwxcf1222 [address] RoadDublin [place] [id number] Chloride [Moles/Vol] 101 mmol/L Normal 97-108 [facility] Work Phone: Comment on above: PATIENT NOT FASTINGP ERFORMED BY: CB [facility] Hmuuxw1785 [address] RoadDublin [place] [id number] CO2 [Moles/Vol] 25 mmol/L Normal 18-29 [facility] Internal Medicine Work Phone: Comment on above: PATIENT NOT FASTINGP ERFORMED BY: CB [facility] Dkyhrp1968 [address] RoadDublin [place] [id number] Creatinine [Mass/Vol] 1.04 mg/dL Normal 0.76-1.27 [facility] Work Phone: Comment on above: PATIENT NOT FASTINGP ERFORMED BY: DOROTHY LabComonserrat Onsikg5498 [address] Roadblin [place] [id number] GFR/1.73 sq M predicted among blacks CKD-EPI (S/P/Bld) [Vol rate/Area] 85 mL/min/1.73 Normal [facility] Work Phone: Comment on above: PATIENT NOT FASTINGP ERFORMED BY: CB [facility] Smkshu9537 [address] RoadDublin [place] [id number] GFR/1.73 sq M predicted among non-blacks CKD-EPI (S/P/Bld) [Vol rate/Area] 73 mL/min/1.73 Normal [facility] Work Phone: Comment on above: PATIENT NOT FASTINGP ERFORMED BY: DOROTHY [facility] Lmvssf8378 Bishop RoadUnc Medical Centerin [place] [id number] Globulin (S) [Mass/Vol] 2.3 g/dL Normal 1.5-4.5 [facility] Work Phone: Comment on above: PATIENT NOT FASTINGP ERFORMED BY: DOROTHY [facility] Tpqfhb0142 [facility]in [place] [id number] Glucose [Mass/Vol] 80 mg/dL Normal 65-99 [facility] Internal Medicine Work Phone: Comment on above: PATIENT NOT FASTINGP ERFORMED BY: DOROTHY [facility] Lpydqj7005 [facility]in [place] [id number] Potassium [Moles/Vol] 4.6 mmol/L Normal 3.5-5.2 [facility] Work Phone: Comment on above: PATIENT NOT FASTINGP ERFORMED BY: CB [facility] Rehxas7130 [address] [facility] Hospitalbl[facility] [place] [id number] Protein [Mass/Vol] 6.3 g/dL Normal 6.0-8.5 [facility] Internal Medicine Work Phone: Comment on above: PATIENT NOT FASTINGP ERFORMED BY: CB [facility] Zekdbn8076 [facility] [place] [id number] Sodium [Moles/Vol] 141 mmol/L Normal 134-144 [facility] Internal Medicine Work Phone: Comment on above: PATIENT NOT FASTINGP ERFORMED BY: DOROTHY Camarena Lebedr2114 [facility] [id number] Urea nitrogen [Mass/Vol] 16 mg/dL Normal 8-27 [facility] Work Phone: Comment on above: PATIENT NOT FASTINGP ERFORMED BY: [facility]6370 [facility] [id number] Urea nitrogen/Creatinine [Mass ratio] 15 mg/mg Normal 10-22 [facility] Work Phone: Comment on above: PATIENT NOT FASTINGP ERFORMED BY: [facility]6370 [facility] [id number] TSH ([id number])Ordered By: Olga m Ion Implant Machine Operator on 05-25-2014 TSH Qn 1.090 {uIU/mL} Normal 0.450-4.50 0 [facility] Work Phone: Comment on above: PATIENT NOT FASTINGP ERFORMED BY: [facility]6370 [facility] [id number] CBC WITH MANUAL DIFF ([id number]) Ordered By: Nutritionist on 11-04-2013 Basophils (Bld) [#/Vol] 0.1 {x10E3/uL} Normal 0.0-0.2 [facility] Work Phone: Comment on above: PATIENT WAS FASTINGP ERFORMED BY: [facility]6370 [facility] [id number] Information: [id number] Basophils (Bld) [#/Vol] 0.1 10*3/uL Normal 0.0-0.2 [facility]; [facility] Work Phone: Basophils/100 WBC (Bld) 1 % Normal 0-3 [facility] Work Phone: Comment on above: PATIENT WAS FASTINGP ERFORMED BY: LabCoJoseph Ville [id number] [facility] [id number] Information: [id number] Eosinophils (Bld) [#/Vol] 0.3 {x10E3/uL} Normal 0.0-0.4 [facility] Work Phone: Comment on above: PATIENT WAS FASTINGP ERFORMED BY: [address] [id number] Information: [id number] Eosinophils (Bld) [#/Vol] 0.3 10*3/uL Normal 0.0-0.4 [facility]; [facility] Work Phone: Eosinophils/100 WBC (Bld) 3 % Normal 0-5 [facility] Work Phone: Comment on above: PATIENT WAS FASTINGP ERFORMED BY: [address] [id number] Information: [id number] Erythrocyte distribution width (RBC) [Ratio] 13.6 % Normal 12.3-15.4 [facility] Work Phone: Comment on above: PATIENT WAS FASTINGP ERFORMED BY: [address] [id number] Information: [id number] Hematocrit (Bld) [Volume fraction] 49.9 % Normal 37.5-51.0 [facility] Work Phone: Comment on above: PATIENT WAS FASTINGP ERFORMED BY: [address] [id number] Information: [id number] Hemoglobin (Bld) [Mass/Vol] 17.5 g/dL Normal 12.6-17.7 [facility] Work Phone: Comment on above: PATIENT WAS FASTINGP ERFORMED BY: [address] [id number] Information: [id number] Immature granulocytes (Bld) [#/Vol] 0.0 {x10E3/uL} Normal 0.0-0.1 [facility] Work Phone: Comment on above: PATIENT WAS FASTINGP ERFORMED BY: [place] 7958370 [facility] [id number] Information: [id number] Immature granulocytes (Bld) [#/Vol] 0.0 10*3/uL Normal 0.0-0.1 [facility]; [facility] Work Phone: Immature granulocytes/100 WBC (Bld) 0 % Normal 0-2 [facility] Work Phone: Comment on above: PATIENT WAS FASTINGP ERFORMED BY: [address] [id number] Information: [id number] Lymphocytes (Bld) [#/Vol] 1.6 {x10E3/uL} Normal 0.7-3.1 [facility] Work Phone: Comment on above: PATIENT WAS FASTINGP ERFORMED BY: [facility]6370 [facility] [id number] Information: [id number] Lymphocytes (Bld) [#/Vol] 1.6 10*3/uL Normal 0.7-3.1 [facility]; [facility] Work Phone: Lymphocytes/100 WBC (Bld) 20 % Normal 14-46 [facility] Work Phone: Comment on above: PATIENT WAS FASTINGP ERFORMED BY: [place] 7958370 [facility] [id number] Information: [id number] MCH (RBC) [Entitic mass] 31.7 pg Normal 26.6-33.0 [facility] Work Phone: Comment on above: PATIENT WAS FASTINGP ERFORMED BY: [place] 7958370 [facility] [id number] Information: [id number] MCHC (RBC) [Mass/Vol] 35.1 g/dL Normal 31.5-35.7 [facility] Work Phone: Comment on above: PATIENT WAS FASTINGP ERFORMED BY: DOROTHY Camarena Mrgglx1558 [facility] [id number] Information: [id number] MCV (RBC) [Entitic vol] 90 fL Normal 79-97 [facility] Work Phone: Comment on above: PATIENT WAS FASTINGP ERFORMED BY: [address] [id number] Information: [id number] Monocytes (Bld) [#/Vol] 0.6 {x10E3/uL} Normal 0.1-0.9 [facility] Work Phone: Comment on above: PATIENT WAS FASTINGP ERFORMED BY: [address] [id number] Information: [id number] Monocytes (Bld) [#/Vol] 0.6 10*3/uL Normal 0.1-0.9 [facility]; [facility] Work Phone: Monocytes/100 WBC (Bld) 7 % Normal 4-12 [facility] Work Phone: Comment on above: PATIENT WAS FASTINGP ERFORMED BY: [facility]6370 [facility] [id number] Information: [id number] Neutrophils (Bld) [#/Vol] 5.6 {x10E3/uL} Normal 1.4-7.0 [facility] Work Phone: Comment on above: PATIENT WAS FASTINGP ERFORMED BY: [place] 7958370 [facility] [id number] Information: [id number] Neutrophils (Bld) [#/Vol] 5.6 10*3/uL Normal 1.4-7.0 [facility]; [facility] Work Phone: Neutrophils/100 WBC (Bld) 69 % Normal 40-74 [facility] Work Phone: Comment on above: PATIENT WAS FASTINGP ERFORMED BY: [facility] Rhpnry9625 [facility] [id number] Information: [id number] Platelets (Bld) [#/Vol] 205 {x10E3/uL} Normal 155-379 [facility] Work Phone: Comment on above: PATIENT WAS FASTINGP ERFORMED BY: [place] 7958370 [facility] [id number] Information: [id number] Platelets (Bld) [#/Vol] 205 10*3/uL Normal 155-379 [facility]; [facility] Work Phone: RBC (Bld) [#/Vol] 5.52 {x10E6/uL} Normal 4.14-5.80 [facility] Internal Medicine Work Phone: Comment on above: PATIENT WAS FASTINGP ERFORMED BY: [facility]6370 [facility] [id number] Information: [id number] RBC (Bld) [#/Vol] 5.52 10*6/uL Normal 4.14-5.80 [facility] Internal Medicine; [facility] Work Phone: WBC (Bld) [#/Vol] 8.1 {x10E3/uL} Normal 3.4-10.8 [facility] Internal Medicine Work Phone: Comment on above: PATIENT WAS FASTINGP ERFORMED BY: [facility]6370 [facility] [id number] Information: [id number] WBC (Bld) [#/Vol] 8.1 10*3/uL Normal 3.4-10.8 [facility]; [facility] Work Phone: LIPID PANEL ([id number])Ordered B y: Nutritionist on 11-04-2013 Cholesterol [Mass/Vol] 182 mg/dL Normal 100-199 [facility] Work Phone: Comment on above: PATIENT WAS FASTINGP ERFORMED BY: CB [facility] Hejpae3226 [address] RoadDublin [place] [id number] Cholesterol in HDL [Mass/Vol] 34 mg/dL Abnormal [facility] Work Phone: Comment on above: According to ATP-III Guidelines, HDL-C >59 mg/dL is considered anegative risk factor for CHD. PATIENT WAS FASTINGP ERFORMED BY: CB [facility] Hthdrn7753 [address] RoadDublin [place] [id number] Cholesterol in LDL [Mass/Vol] 118 mg/dL Abnormal 0-99 [facility] Work Phone: Comment on above: PATIENT WAS FASTINGP ERFORMED BY: CB [facility] Xomhyr7605 [address] RoadDublin [place] [id number] Cholesterol in LDL/Cholesterol in HDL [Mass ratio] 3.5 {ratio_units} Normal 0.0-3.6 [facility] Work Phone: Comment on above: PATIENT WAS FASTINGP ERFORMED BY: CB [facility] Dzyekj4038 [address] RoadDublin [place] [id number] Cholesterol in VLDL [Mass/Vol] 30 mg/dL Normal 5-40 [facility] Work Phone: Comment on above: PATIENT WAS FASTINGP ERFORMED BY: CB [facility] Beaidg5376 [address] RoadDublin [place] [id number] Triglyceride [Mass/Vol] 148 mg/dL Normal 0-149 [facility] Work Phone: Comment on above: PATIENT WAS FASTINGP ERFORMED BY: CB [facility] Cxbyvw0436 [address] RoadDublin [place] [id number] METABOLIC PANEL, COMPREHENSI VE ([id number])Ordered By: Nutritionist on 11-04-2013 Albumin [Mass/Vol] 4.4 g/dL Normal 3.6-4.8 [facility] Internal Medicine Work Phone: Comment on above: PATIENT WAS FASTINGP ERFORMED BY: CB [facility] Ktkiuu0283 [address] RoadDublin [place] [id number] Albumin/Globulin [Mass ratio] 1.8 {ratio} Normal 1.1-2.5 [facility] Work Phone: Comment on above: PATIENT WAS FASTINGP ERFORMED BY: DOROTHY LabJessenia Mata6370 [address] RoadDublin [place] [id number] ALP [Catalytic activity/Vol] 96 [iU]/L Normal 39-117 [facility] Work Phone: Comment on above: PATIENT WAS FASTINGP ERFORMED BY: DOROTHY [facility] Nbdjzp5906 [address] RoadDublin [place] [id number] ALP [Catalytic activity/Vol] 96 U/L Normal 39-117 [facility]; [facility] Work Phone: ALT [Catalytic activity/Vol] 13 [iU]/L Normal 0-44 [facility] Work Phone: Comment on above: PATIENT WAS FASTINGP ERFORMED BY: DOROTHY [facility]Ell[facility] Xoktii9111 [address] RoadDublin [place] [id number] ALT [Catalytic activity/Vol] 13 U/L Normal 0-44 [facility]; [facility] Work Phone: AST [Catalytic activity/Vol] 15 [iU]/L Normal 0-40 [facility] Work Phone: Comment on above: PATIENT WAS FASTINGP ERFORMED BY: DOROTHY Shweta Castillolin6370 [address] RoadDublin [place] [id number] AST [Catalytic activity/Vol] 15 U/L Normal 0-40 [facility]; [facility] Work Phone: Bilirubin [Mass/Vol] 0.5 mg/dL Normal 0.0-1.2 Comp [facility] Internal [facility] Work Phone: Comment on above: PATIENT WAS FASTINGP ERFORMED BY: DOROTHY [facility] Hmzaxl1458 [address] RoadDublin [place] [id number] Calcium [Mass/Vol] 9.0 mg/dL Normal 8.6-10.2 [facility] Work Phone: Comment on above: PATIENT WAS FASTINGP ERFORMED BY: DOROTHY [facility] Fbdigz0001 [address] RoadDublin [place] [id number] Chloride [Moles/Vol] 102 mmol/L Normal 97-108 Comp rehensive Internal Medicine Work Phone: Comment on above: PATIENT WAS FASTINGP ERFORMED BY: CB [facility] Vrehnp6467 [address] RoadDublin [place] [id number] CO2 [Moles/Vol] 25 mmol/L Normal 19-28 [facility]hst. [facility] Internal Medicine Work Phone: Comment on above: PATIENT WAS FASTINGP ERFORMED BY: CB [facility] Trpciu3302 Bishop RoadUnc Medical Centerin [place] [id number] Creatinine [Mass/Vol] 1.25 mg/dL Normal 0.76-1.27 [facility] Work Phone: Comment on above: PATIENT WAS FASTINGP ERFORMED BY: DOROTHY [facility] Nqqest4136 [facility] [id number] GFR/1.73 sq M predicted among blacks CKD-EPI (S/P/Bld) [Vol rate/Area] 68 mL/min/1.73 Normal [facility] Work Phone: Comment on above: PATIENT WAS FASTINGP ERFORMED BY: [facility] Uxslcn4584 [address] RoadRo[place] [id number] GFR/1.73 sq M predicted among non-blacks CKD-EPI (S/P/Bld) [Vol rate/Area] 59 mL/min/1.73 Abnormal [facility] Work Phone: Comment on above: PATIENT WAS FASTINGP ERFORMED BY: [facility] Zipjro6442 [facility] [id number] Globulin (S) [Mass/Vol] 2.5 g/dL Normal 1.5-4.5 [facility] Work Phone: Comment on above: PATIENT WAS FASTINGP ERFORMED BY: CB [facility] Haiint5164 [facility]in [place] [id number] Glucose [Mass/Vol] 89 mg/dL Normal 65-99 Compre [facility] Internal Medicine Work Phone: Comment on above: PATIENT WAS FASTINGP ERFORMED BY: CB [facility] Rekyah7773 [facility] [place] [id number] Potassium [Moles/Vol] 5.5 mmol/L Abnormal 3.5-5.2 [facility] Work Phone: Comment on above: PATIENT WAS FASTINGP ERFORMED BY: DOROTHY Castillolin6370 [facility]in [place] [id number] Protein [Mass/Vol] 6.9 g/dL Normal 6.0-8.5 [facility] Internal [facility] Work Phone: Comment on above: PATIENT WAS FASTINGP ERFORMED BY: DOROTHY Mata6370 [facility]in [place] [id number] Sodium [Moles/Vol] 140 mmol/L Normal 134-144 [facility] Internal [facility] Work Phone: Comment on above: PATIENT WAS FASTINGP ERFORMED BY: DOROTHY Mata6370 [facility] [id number] Urea nitrogen [Mass/Vol] 20 mg/dL Normal 8-27 [facility] Work Phone: Comment on above: PATIENT WAS FASTINGP ERFORMED BY: DOROTHY Mata6370 [facility] [id number] Urea nitrogen/Creatinine [Mass ratio] 16 mg/mg Normal 10-22 [facility] Work Phone: Comment on above: PATIENT WAS FASTINGP ERFORMED BY: DOROTHY Castillolin6370 [facility] [id number] MICROALBUMINOrdered By: Syst em Ion Implant Machine Operator on 11-04-2013 Albumin DL <= 20 mg/L (U) [Mass/Vol] 13.2 ug/mL Normal 0.0-17.0 Comprehensiv e Internal Medicine Work Phone: Comment on above: PATIENT WAS FASTINGP ERFORMED BY: DOROTHY Castillolin6370 [facility]in [place] [id number] Albumin/Creatinine (U) [Mass ratio] 17.6 {mg/g_creat} Normal 0.0-30.0 [facility] Work Phone: Comment on above: PATIENT WAS FASTINGP ERFORMED BY: CB [facility] Mvcygb6003 [facility] [id number] Creatinine (U) [Mass/Vol] 75.1 mg/dL Normal 22.0-328.0 [facility] Work Phone: Comment on above: PATIENT WAS FASTINGP ERFORMED BY: DOROTHY [facility] Aarrrc1829 [facility] [id number] Microscopic ExaminationOrder ed By: Nutritionist on 11-04-2013 Bacteria LM.HPF (Urine sed) [#/Area] Few Normal Comprehensi ve Internal Medicine Work Phone: Comment on above: PATIENT WAS FASTINGP ERFORMED BY: DOROTHY [facility] Ificmq3260 [facility] [id number] Epithelial cells LM.HPF (Urine sed) [#/Area] 0-10 Normal 0 - 10 [facility] Work Phone: Comment on above: PATIENT WAS FASTINGP ERFORMED BY: DOROTHY [facility] Tniuno4014 [facility] [id number] Mucus Ql (Urine sed) Present Normal Comp rehensive Internal Medicine Work Phone: Comment on above: PATIENT WAS FASTINGP ERFORMED BY: DOROTHY [facility]Stra[facility] Surgery6370 [facility] [id number] RBC LM.HPF (Urine sed) [#/Area] 0-3 Normal 0 - 3 [facility] Work Phone: Comment on above: PATIENT WAS FASTINGP ERFORMED BY: [facility]Stra[facility] Surgery6370 [facility] [id number] WBC LM.HPF (Urine sed) [#/Area] 0-5 Normal 0 - 5 [facility] Work Phone: Comment on above: PATIENT WAS FASTINGP ERFORMED BY: [facility]Stra[facility]6370 [facility] [id number] PSA (PROSTATE SPECIFIC ANTIG EN) (V76.44)Ordered By: Nutritionist on 11-04-2013 Prostate specific Ag [Mass/Vol] 1.5 ng/mL Normal 0.0-4.0 [facility] Work Phone: Comment on above: German ECLIA methodol ogy. .According to the [employer] [employer], Serum PSA shoulddecrease and remain at undetectable levels after radicalprostatectomy. The AUA defines biochemical recurrence as an initialPSA value 0.2 ng/mL or greater followed by a subsequent confirmatoryPSA value 0.2 ng/mL or greater.Values obtained with different assay methods or kits cannot be usedinterchangeably. Results cannot be interpreted as absolute evidenceof the presence or absence of malignant disease. PATIENT WAS FASTINGP ERFORMED BY: CB [facility] Fsqftu9698 [address] RoadDublin [place] [id number] TSH ([id number])Ordered By: Krowder m Ion Implant Machine Operator on 11-04-2013 TSH Qn 1.150 {uIU/mL} Normal 0.450-4.50 0 [facility] Work Phone: Comment on above: PATIENT WAS FASTINGP ERFORMED BY: CB [facility] Foxmot7625 [address] RoadDublin [place] [id number] URINALYSIS, W/ MICRO ([id number]) Ordered By: Nutritionist on 11-04-2013 Appearance (U) Clear Normal Comprehens anselmo Internal Medicine Work Phone: Comment on above: PATIENT WAS FASTINGP ERFORMED BY: CB [facility] Nbkaqw6966 [address] RoadDublin [place] [id number] Bilirubin Ql (U) Negative Normal Comprehe nsive Internal Medicine Work Phone: Comment on above: PATIENT WAS FASTINGP ERFORMED BY: CB [facility] Eaqzid0904 [address] RoadDublin [place] [id number] Bilirubin Ql (U) Negative Normal Comprehe nsive Internal Medicine; [facility] Work Phone: Color (U) Yellow Normal [facility] Work Phone: Comment on above: PATIENT WAS FASTINGP ERFORMED BY: CB [facility] Oigtxe5470 [address] RoadDublin [place] [id number] Glucose Ql (U) Negative Normal Comprehens anselmo Internal Medicine Work Phone: Comment on above: PATIENT WAS FASTINGP ERFORMED BY: CB [facility] Riuynr4711 [address] RoadDublin [place] [id number] Glucose Ql (U) Negative Normal Comprehens anselmo Internal Medicine; [facility] Work Phone: Hemoglobin Ql (U) Negative Normal Compreh ensive Internal Medicine Work Phone: Comment on above: PATIENT WAS FASTINGP ERFORMED BY: DOROTHY [facility] Esadth5174 [address] RoadDublin [place] [id number] Hemoglobin Ql (U) Negative Normal Compreh ensive Internal Medicine; [facility] Work Phone: Ketones Ql (U) Negative Normal Comprehens anselmo Internal Medicine Work Phone: Comment on above: PATIENT WAS FASTINGP ERFORMED BY: DOROTHY LabJessenia CastilloVfgdso1242 [address] RoadDublin [place] [id number] Ketones Ql (U) Negative Normal Comprehens anselmo Internal Medicine; [facility] Work Phone: Leukocyte esterase Test strip Ql (U) Trace Abnormal [facility] Work Phone: Comment on above: PATIENT WAS FASTINGP ERFORMED BY: DOROTHY LabJessenia CastilloJpmtwr8395 Bishop RoadDublin [place] [id number] Microscopic observation LM Nom (Urine sed) See below: Normal [facility] Work Phone: Comment on above: PATIENT WAS FASTINGP ERFORMED BY: DOROTHY LabJessenia CastilloMprlsx7185 Bishop RoadDublin [place] [id number] Nitrite Ql (U) Negative Normal Comprehens [facility] Work Phone: Comment on above: PATIENT WAS FASTINGP ERFORMED BY: DOROTHY [facility] Jikmyq2144 Bishop RoadDublin [place] [id number] Nitrite Ql (U) Negative Normal Comprehens [facility]; [facility] Work Phone: pH (U) 6.5 [pH] Normal 5.0-7.5 [facility] Work Phone: Comment on above: PATIENT WAS FASTINGP ERFORMED BY: DOROTHY [facility] Ckvzsq7320 Bishop RoadDublin [place] [id number] Protein Ql (U) Negative Normal Comprehens [facility] Work Phone: Comment on above: PATIENT WAS FASTINGP ERFORMED BY: iContactrp Phqaxz1148 [address] RoadDublin [place] [id number] Protein Ql (U) Negative Normal Comprehens [facility]; [facility] Work Phone: Specific gravity (U) [Rel density] 1.011 1 Normal 1.005-1.03 0 [facility] Work Phone: Comment on above: PATIENT WAS FASTINGP ERFORMED BY: iContact Zifpat8749 Bishop RoadDublin [place] [id number] Urobilinogen (U) [Mass/Vol] 0.2 mg/dL Normal 0.0-1.9 [facility]; [facility] Work Phone: Urobilinogen Test strip (U) [Mass/Vol] 0.2 mg/dL Normal 0.0-1.9 Comprehensi [facility] Work Phone: Comment on above: PATIENT WAS FASTINGP ERFORMED BY: [employer] Byttyy1632 [address] Roadblin [place] [id number] Vitamin D Hydroxy (33173)Ord ered By: Nutritionist on 11-04-2013 25-Hydroxyvitamin D2+25-Hydroxyvitamin D3 [Mass/Vol] 40.9 ng/mL Normal 30.0-100.0 [facility] Work Phone: Comment on above: Vitamin D deficiency has been defined by the [facility] and an Endocrine Society practice guideline as alevel of serum 25-OH vitamin D less than 20 ng/mL (1,2).The Endocrine Society went on to further define vitamin Dinsufficiency as a level between 21 and 29 ng/mL (2).1. IOM (Bennett of Medicine). 2010. Dietary reference intakes for calcium and D. [place]: The National Academies Press.2. Luca MF, Elena AGARWAL, Vini ALVAREZ, et al. Evaluation, treatment, and prevention of vitamin D deficiency: an Endocrine Society clinical practice guideline. JCEM. 2010; 96(7):1911-30. PATIENT WAS FASTINGP ERFORMED BY: Fritterlin6370 [facility] [id number] CALCIFEDIOL (45402)Ordered B y: Nutritionist on 10-28-2012 25-Hydroxyvitamin D2+25-Hydroxyvitamin D3 [Mass/Vol] 68.9 ng/mL Normal 30.0-100.0 [facility] Work Phone: Comment on above: Vitamin D deficiency has been defined by the [facility] and an Endocrine Society practice guideline as alevel of serum 25-OH vitamin D less than 20 ng/mL (1,2).The Endocrine Society went on to further define vitamin Dinsufficiency as a level between 21 and 29 ng/mL (2).1. IOM (Bennett of Medicine). 2010. Dietary reference intakes for calcium and D. [place]: The National Academies Press.2. Luca MF, Elena AGARWAL, Vini ALVAREZ, et al. Evaluation, treatment, and prevention of vitamin D deficiency: an Endocrine Society clinical practice guideline. JCEM. 2010; 96(7):1911-30. PATIENT WAS FASTINGP ERFORMED BY: iContact Rwyjah4579 [facility] [id number] CBC with manual diff (50301) Ordered By: Nutritionist on 10-28-2012 Basophils (Bld) [#/Vol] 0.1 {x10E3/uL} Normal 0.0-0.2 [facility] Work Phone: Comment on above: PATIENT NOT FASTINGP ERFORMED BY: iContactHoboken University Medical CenterBmvbqf5054 [facility] [id number] Information: [id number] Basophils (Bld) [#/Vol] 0.1 10*3/uL Normal 0.0-0.2 [facility]; [facility] Work Phone: Basophils/100 WBC (Bld) 1 % Normal 0-3 [facility] Work Phone: Comment on above: PATIENT NOT FASTINGP ERFORMED BY: iContactHoboken University Medical CenterYmwduo3552 [facility] [id number] Information: [id number] Eosinophils (Bld) [#/Vol] 0.3 {x10E3/uL} Normal 0.0-0.4 [facility] Work Phone: Comment on above: PATIENT NOT FASTINGP ERFORMED BY: DOROTHY Castillolin6370 [facility] [id number] Information: [id number] Eosinophils (Bld) [#/Vol] 0.3 10*3/uL Normal 0.0-0.4 [facility]; [facility] Work Phone: Eosinophils/100 WBC (Bld) 5 % Normal 0-7 [facility] Work Phone: Comment on above: PATIENT NOT FASTINGP ERFORMED BY: DOROTHY Camarena Rxwcry26[address] [id number] Information: [id number] Erythrocyte distribution width (RBC) [Ratio] 13.6 % Normal 12.3-15.4 [facility] Work Phone: Comment on above: PATIENT NOT FASTINGP ERFORMED BY: DOROTHY [address] [id number] Information: [id number] Hematocrit (Bld) [Volume fraction] 48.0 % Normal 37.5-51.0 [facility] Work Phone: Comment on above: PATIENT NOT FASTINGP ERFORMED BY: [facility] HospitalCo[address] [id number] Information: [id number] Hemoglobin (Bld) [Mass/Vol] 16.6 g/dL Normal 12.6-17.7 [facility] Work Phone: Comment on above: PATIENT NOT FASTINGP ERFORMED BY: DOROTHY Lab[address] [id number] Information: [id number] Immature granulocytes (Bld) [#/Vol] 0.0 {x10E3/uL} Normal 0.0-0.1 [facility] Work Phone: Comment on above: PATIENT NOT FASTINGP ERFORMED BY: DOROTHY CamarenaHoboken University Medical CenterLpxjcx1323 [facility] [id number] Information: [id number] Immature granulocytes (Bld) [#/Vol] 0.0 10*3/uL Normal 0.0-0.1 [facility]; [facility] Work Phone: Immature granulocytes/100 WBC (Bld) 0 % Normal 0-2 [facility] Work Phone: Comment on above: PATIENT NOT FASTINGP ERFORMED BY: DOROTHY Macias[address] [id number] Information: [id number] Lymphocytes (Bld) [#/Vol] 1.6 {x10E3/uL} Normal 0.7-4.5 [facility] Work Phone: Comment on above: PATIENT NOT FASTINGP ERFORMED BY: [address] [id number] Information: [id number] Lymphocytes (Bld) [#/Vol] 1.6 10*3/uL Normal 0.7-4.5 [facility]; [facility] Work Phone: Lymphocytes/100 WBC (Bld) 24 % Normal 14-46 [facility] Work Phone: Comment on above: PATIENT NOT FASTINGP ERFORMED BY: [place] 7958370 [facility] [id number] Information: [id number] MCH (RBC) [Entitic mass] 31.4 pg Normal 26.6-33.0 [facility] Work Phone: Comment on above: PATIENT NOT FASTINGP ERFORMED BY: [place] 7958370 [facility] [id number] Information: [id number] MCHC (RBC) [Mass/Vol] 34.6 g/dL Normal 31.5-35.7 [facility] Work Phone: Comment on above: PATIENT NOT FASTINGP ERFORMED BY: DOROTHY Shweta Castillolin6370 [facility] [id number] Information: [id number] MCV (RBC) [Entitic vol] 91 fL Normal 79-97 [facility] Work Phone: Comment on above: PATIENT NOT FASTINGP ERFORMED BY: DOROTHY Castillolin6370 [facility] [id number] Information: [id number] Monocytes (Bld) [#/Vol] 0.4 {x10E3/uL} Normal 0.1-1.0 [facility] Work Phone: Comment on above: PATIENT NOT FASTINGP ERFORMED BY: DOROTHY Nicolmonserrat CastilloWixbkk8732 [facility] [id number] Information: [id number] Monocytes (Bld) [#/Vol] 0.4 10*3/uL Normal 0.1-1.0 [facility]; [facility] Work Phone: Monocytes/100 WBC (Bld) 7 % Normal 4-13 [facility] Work Phone: Comment on above: PATIENT NOT FASTINGP ERFORMED BY: DOROTHY Nicolmonserrat CastilloKgyivw7578 [facility] [id number] Information: [id number] Neutrophils (Bld) [#/Vol] 4.3 {x10E3/uL} Normal 1.8-7.8 [facility] Work Phone: Comment on above: PATIENT NOT FASTINGP ERFORMED BY: DOROTHY CamarenaHoboken University Medical CenterHcpbbj1419 [facility] [id number] Information: [id number] Neutrophils (Bld) [#/Vol] 4.3 10*3/uL Normal 1.8-7.8 [facility]; [facility] Work Phone: Neutrophils/100 WBC (Bld) 63 % Normal 40-74 [facility] Work Phone: Comment on above: PATIENT NOT FASTINGP ERFORMED BY: DOROTYH LabJessenia Mata6370 [facility] [id number] Information: [id number] Platelets (Bld) [#/Vol] 174 {x10E3/uL} Normal 140-415 [facility] Work Phone: Comment on above: PATIENT NOT FASTINGP ERFORMED BY: DOROTHY Nicol Urvafi0494 [facility] [id number] Information: [id number] Platelets (Bld) [#/Vol] 174 10*3/uL Normal 140-415 [facility]; [facility] Work Phone: RBC (Bld) [#/Vol] 5.28 {x10E6/uL} Normal 4.14-5.80 [facility] Internal Medicine Work Phone: Comment on above: PATIENT NOT FASTINGP ERFORMED BY: DOROTHY [facility] CenterJessenia CastilloTrrymx4483 [facility] [id number] Information: [id number] RBC (Bld) [#/Vol] 5.28 10*6/uL Normal 4.14-5.80 [facility]; [facility] Work Phone: WBC (Bld) [#/Vol] 6.8 {x10E3/uL} Normal 4.0-10.5 [facility] Internal Medicine Work Phone: Comment on above: PATIENT NOT FASTINGP ERFORMED BY: DOROTHY [facility] CenterRenukaHoboken University Medical CenterAzqfsa3716 [facility] [id number] Information: [id number] WBC (Bld) [#/Vol] 6.8 10*3/uL Normal 4.0-10.5 [facility] [place] [facility]; [facility] Work Phone: LIPID PANEL ([id number])Ordered B y: Nutritionist on 10-28-2012 Cholesterol [Mass/Vol] 168 mg/dL Normal 100-199 [facility] Work Phone: Comment on above: PATIENT WAS FASTINGP ERFORMED BY: DOROTHY [place] 6278870 [facility] [id number] Information: Z23174,2ND ORDER NO DRAW F EE Cholesterol in HDL [Mass/Vol] 32 mg/dL Abnormal [facility] Work Phone: Comment on above: According to ATP-III Guidelines, HDL-C >59 mg/dL is considered anegative risk factor for CHD. PATIENT WAS FASTINGP ERFORMED BY: [place] 7958370 [facility] [id number] Information: T43014,2ND ORDER NO DRAW F EE Cholesterol in LDL [Mass/Vol] 103 mg/dL Abnormal 0-99 [facility] Work Phone: Comment on above: PATIENT WAS FASTINGP ERFORMED BY: [place] 7958370 [facility] [id number] Information: Z12005,2ND ORDER NO DRAW F EE Cholesterol in LDL/Cholesterol in HDL [Mass ratio] 3.2 {ratio_units} Normal 0.0-3.6 [facility] Work Phone: Comment on above: PATIENT WAS FASTINGP ERFORMED BY: [place] 7958370 [facility] [id number] Information: S64660,2ND ORDER NO DRAW F EE Cholesterol in VLDL [Mass/Vol] 33 mg/dL Normal 5-40 [facility] Work Phone: Comment on above: PATIENT WAS FASTINGP ERFORMED BY: [place] 7958370 [facility] [id number] Information: D48311,2ND ORDER NO DRAW F EE Triglyceride [Mass/Vol] 163 mg/dL Abnormal 0-149 [facility] Work Phone: Comment on above: PATIENT WAS FASTINGP ERFORMED BY: [place] 7958370 [facility] [id number] Information: A10561,2ND ORDER NO DRAW F EE PSA (PROSTATE SPECIFIC ANTIG EN) (V76.44)Ordered By: Nutritionist on 10-28-2012 Prostate specific Ag [Mass/Vol] 0.7 ng/mL Normal 0.0-4.0 [facility] Work Phone: Comment on above: German ECLIA methodol ogy. .According to the [place] [employer], Serum PSA shoulddecrease and remain at undetectable levels after radicalprostatectomy. The AUA defines biochemical recurrence as an initialPSA value 0.2 ng/mL or greater followed by a subsequent confirmatoryPSA value 0.2 ng/mL or greater.Values obtained with different assay methods or kits cannot be usedinterchangeably. Results cannot be interpreted as absolute evidenceof the presence or absence of malignant disease. PATIENT NOT FASTINGP ERFORMED BY: [employer]70 BishopProfessional Logical SolutionsAtrium Health Pineville [id number] Information: I16520,2ND ORDER NO DRAW F EE CBC, Platelets & Auto Diff ( 48669)Ordered By: Nutritionist on 10-21-2012 Basophils (Bld) [#/Vol] 0.0 {x10E3/uL} Normal 0.0-0.2 [facility] Work Phone: Comment on above: PATIENT NOT FASTINGP ERFORMED BY: Savorfull Ocdurf4893 BishopProfessional Logical SolutionsAtrium Health Pineville [id number] Information: [id number] Basophils (Bld) [#/Vol] 0.0 10*3/uL Normal 0.0-0.2 [facility]; [facility] Work Phone: Basophils/100 WBC (Bld) 1 % Normal 0-3 [facility] Work Phone: Comment on above: PATIENT NOT FASTINGP ERFORMED BY: Savorfull Exzmhz9092 CMS Global TechnologiesAtrium Health Pineville [id number] Information: [id number] Eosinophils (Bld) [#/Vol] 0.4 {x10E3/uL} Normal 0.0-0.4 [facility] Work Phone: Comment on above: PATIENT NOT FASTINGP ERFORMED BY: [employer] Beqjgy4600 BishopProfessional Logical SolutionsAtrium Health Pineville [id number] Information: [id number] Eosinophils (Bld) [#/Vol] 0.4 10*3/uL Normal 0.0-0.4 [facility]; [facility] Work Phone: Eosinophils/100 WBC (Bld) 6 % Normal 0-7 [facility] Work Phone: Comment on above: PATIENT NOT FASTINGP ERFORMED BY: [place] 7958370 [facility] [id number] Information: [id number] Erythrocyte distribution width (RBC) [Ratio] 13.4 % Normal 12.3-15.4 [facility] Work Phone: Comment on above: PATIENT NOT FASTINGP ERFORMED BY: Lab[address] [id number] Information: [id number] Hematocrit (Bld) [Volume fraction] 45.6 % Normal 37.5-51.0 [facility] Work Phone: Comment on above: PATIENT NOT FASTINGP ERFORMED BY: [place] 7958370 [facility] [id number] Information: [id number] Hemoglobin (Bld) [Mass/Vol] 15.9 g/dL Normal 12.6-17.7 [facility] Work Phone: Comment on above: PATIENT NOT FASTINGP ERFORMED BY: [address] [id number] Information: [id number] Immature granulocytes (Bld) [#/Vol] 0.0 {x10E3/uL} Normal 0.0-0.1 [facility] Work Phone: Comment on above: PATIENT NOT FASTINGP ERFORMED BY: LabElizabeth Ville 8571170 [facility] [id number] Information: [id number],[id number] Immature granulocytes (Bld) [#/Vol] 0.0 10*3/uL Normal 0.0-0.1 [facility]; [facility] Work Phone: Immature granulocytes/100 WBC (Bld) 0 % Normal 0-2 [facility] Work Phone: Comment on above: PATIENT NOT FASTINGP ERFORMED BY: DOROTHY Castillolin6370 [facility] [id number] Information: [id number] Lymphocytes (Bld) [#/Vol] 1.8 {x10E3/uL} Normal 0.7-4.5 [facility] Work Phone: Comment on above: PATIENT NOT FASTINGP ERFORMED BY: [address] [id number] Information: [id number] Lymphocytes (Bld) [#/Vol] 1.8 10*3/uL Normal 0.7-4.5 [facility]; [facility] Work Phone: Lymphocytes/100 WBC (Bld) 29 % Normal 14-46 [facility] Work Phone: Comment on above: PATIENT NOT FASTINGP ERFORMED BY: GilbertoElizabeth [place] 8571170 [facility] [id number] Information: [id number] MCH (RBC) [Entitic mass] 31.7 pg Normal 26.6-33.0 [facility] Work Phone: Comment on above: PATIENT NOT FASTINGP ERFORMED BY: [address] [id number] Information: [id number] MCHC (RBC) [Mass/Vol] 34.9 g/dL Normal 31.5-35.7 [facility] Work Phone: Comment on above: PATIENT NOT FASTINGP ERFORMED BY: [place] 7958370 [facility] [id number] Information: [id number] MCV (RBC) [Entitic vol] 91 fL Normal 79-97 [facility] Work Phone: Comment on above: PATIENT NOT FASTINGP ERFORMED BY: [address] [id number] Information: [id number],[id number] Monocytes (Bld) [#/Vol] 0.5 {x10E3/uL} Normal 0.1-1.0 [facility] Work Phone: Comment on above: PATIENT NOT FASTINGP ERFORMED BY: DOROTHY GilbertoJessenia CastilloJilhnf4877 [facility] [id number] Information: [id number] Monocytes (Bld) [#/Vol] 0.5 10*3/uL Normal 0.1-1.0 [facility]; [facility] Work Phone: Monocytes/100 WBC (Bld) 7 % Normal 4-13 [facility] Work Phone: Comment on above: PATIENT NOT FASTINGP ERFORMED BY: DOROTHY GilbertoJessenia CastilloYmdeee7284 [facility] [id number] Information: [id number] Neutrophils (Bld) [#/Vol] 3.6 {x10E3/uL} Normal 1.8-7.8 [facility] Work Phone: Comment on above: PATIENT NOT FASTINGP ERFORMED BY: DOROTHY Castillolin6370 [facility] [id number] Information: [id number] Neutrophils (Bld) [#/Vol] 3.6 10*3/uL Normal 1.8-7.8 [facility]; [facility] Work Phone: Neutrophils/100 WBC (Bld) 57 % Normal 40-74 [facility] Work Phone: Comment on above: PATIENT NOT FASTINGP ERFORMED BY: DOROTHY LabCo Tkxxal2943 [facility] [id number] Information: [id number] Platelets (Bld) [#/Vol] 136 {x10E3/uL} Abnormal 140-415 [facility] Work Phone: Comment on above: PATIENT NOT FASTINGP ERFORMED BY: DOROTHY LabCo Ieudkb3610 [facility] [id number] Information: [id number] Platelets (Bld) [#/Vol] 136 10*3/uL Abnormal 140-415 [facility] Internal Medicine; [facility] Work Phone: RBC (Bld) [#/Vol] 5.01 {x10E6/uL} Normal 4.14-5.80 [facility] Internal Medicine Work Phone: Comment on above: PATIENT NOT FASTINGP ERFORMED BY: DOROTHY LabComonserrat MataCybsdd9811 [facility] [id number] Information: [id number] RBC (Bld) [#/Vol] 5.01 10*6/uL Normal 4.14-5.80 [facility] Internal Medicine; [facility] Work Phone: WBC (Bld) [#/Vol] 6.3 {x10E3/uL} Normal 4.0-10.5 [facility] Internal Medicine Work Phone: Comment on above: PATIENT NOT FASTINGP ERFORMED BY: DOROTHY Mata6370 [facility] [id number] Information: [id number] WBC (Bld) [#/Vol] 6.3 10*3/uL Normal 4.0-10.5 [facility]; [facility] Internal Medicine Work Phone: Metabolic Panel, Comprehensi ve (77648)Ordered By: Nutritionist on 10-21-2012 Albumin [Mass/Vol] 4.0 g/dL Normal 3.6-4.8 [facility] Medicine Work Phone: Comment on above: PATIENT NOT FASTINGP ERFORMED BY: DOROTHY LabComonserrat CastilloFcvkdn6937 [facility] [id number] Albumin/Globulin [Mass ratio] 1.7 {ratio} Normal 1.1-2.5 [facility] Internal Medicine Work Phone: Comment on above: PATIENT NOT FASTINGP ERFORMED BY: DOROTHY LabComonserrat Bkshqh4242 [facility] [id number] ALP [Catalytic activity/Vol] 91 [iU]/L Normal 25-160 [facility] Work Phone: Comment on above: PATIENT NOT FASTINGP ERFORMED BY: DOROTHY Mata6370 [facility] [place] [id number] ALP [Catalytic activity/Vol] 91 U/L Normal 25-160 [facility]; [facility] Work Phone: ALT [Catalytic activity/Vol] 16 [iU]/L Normal 0-44 [facility] Work Phone: Comment on above: PATIENT NOT FASTINGP ERFORMED BY: DOROTHY Shweta Castillolin6370 [address] [facility] [id number] ALT [Catalytic activity/Vol] 16 U/L Normal 0-44 [facility]; [facility] Work Phone: AST [Catalytic activity/Vol] 18 [iU]/L Normal 0-40 [facility] Work Phone: Comment on above: PATIENT NOT FASTINGP ERFORMED BY: DOROTHY Castillolin6370 [address] [facility] [id number] AST [Catalytic activity/Vol] 18 U/L Normal 0-40 [facility]; [facility] Work Phone: Bilirubin [Mass/Vol] 0.4 mg/dL Normal 0.0-1.2 Comp rehensive Internal Medicine Work Phone: Comment on above: PATIENT NOT FASTINGP ERFORMED BY: DOROTHY Nicol Lhtqqx8979 [facility] [id number] Calcium [Mass/Vol] 8.7 mg/dL Normal 8.6-10.2 [facility] Internal Medicine Work Phone: Comment on above: PATIENT NOT FASTINGP ERFORMED BY: DOROTHY Camarena Xjoecu5964 [facility] [id number] Chloride [Moles/Vol] 104 mmol/L Normal 97-108 Comp rehensive Internal Medicine Work Phone: Comment on above: PATIENT NOT FASTINGP ERFORMED BY: DOROTHY NicolHoboken University Medical CenterRihwkf2184 [facility] [id number] CO2 [Moles/Vol] 23 mmol/L Normal 20-32 [facility] Internal Medicine Work Phone: Comment on above: PATIENT NOT FASTINGP ERFORMED BY: DOROTHY LabComonserrat CastilloBydcrb8602 [facility] [id number] Creatinine [Mass/Vol] 0.81 mg/dL Normal 0.76-1.27 [facility] Work Phone: Comment on above: PATIENT NOT FASTINGP ERFORMED BY: DOROTHY LabCoHoboken University Medical CenterSkggxz5907 [facility] [id number] GFR/1.73 sq M predicted among blacks CKD-EPI (S/P/Bld) [Vol rate/Area] 107 mL/min/1.73 Normal [facility] Work Phone: Comment on above: PATIENT NOT FASTINGP ERFORMED BY: DOROTHY LabStraith [facility] For [facility] Surgery6370 [facility] [id number] GFR/1.73 sq M predicted among non-blacks CKD-EPI (S/P/Bld) [Vol rate/Area] 93 mL/min/1.73 Normal [facility] Work Phone: Comment on above: PATIENT NOT FASTINGP ERFORMED BY: DOROTHY LabCo Imzxah0903 [facility] [id number] Globulin (S) [Mass/Vol] 2.3 g/dL Normal 1.5-4.5 [facility] Work Phone: Comment on above: PATIENT NOT FASTINGP ERFORMED BY: CB LabCo Euvzlu0939 [facility] [id number] Glucose [Mass/Vol] 81 mg/dL Normal 65-99 [facility] Internal Medicine Work Phone: Comment on above: PATIENT NOT FASTINGP ERFORMED BY: DOROTHY LabCo Occrod5599 [facility] [id number] Potassium [Moles/Vol] 4.2 mmol/L Normal 3.5-5.2 [facility] Work Phone: Comment on above: PATIENT NOT FASTINGP ERFORMED BY: DOROTHY LabCoHoboken University Medical CenterJknlgo6109 Bishop RoadDublin [place] [id number] Protein [Mass/Vol] 6.3 g/dL Normal 6.0-8.5 [facility] [place] Internal Medicine Work Phone: Comment on above: PATIENT NOT FASTINGP ERFORMED BY: CB [facility] Vtueod4866 [address] RoadDublin [place] [id number] Sodium [Moles/Vol] 140 mmol/L Normal 134-144 [facility] [place] [facility] Work Phone: Comment on above: PATIENT NOT FASTINGP ERFORMED BY: CB [facility] Qhlune1403 [address] RoadDublin [place] [id number] Urea nitrogen [Mass/Vol] 16 mg/dL Normal 8-27 [facility] Internal Medicine Work Phone: Comment on above: PATIENT NOT FASTINGP ERFORMED BY: CB [facility] Flbvvi4539 [address] RoadDublin [place] [id number] Urea nitrogen/Creatinine [Mass ratio] 20 mg/mg Normal 10- [facility] Work Phone: Comment on above: PATIENT NOT FASTINGP ERFORMED BY: CB [facility] Xdtkrd5856 [address] RoadDublin [place] [id number] THYROIDOrdered By: Crista allison on 05-20-2012 THYROID See Note Normal [facility] Work Phone: Comment on above: PROCEDURE: THYROID U LTRASOUND REASON FOR EXAM: Male, 67 years old. Nontoxic goiter. TECHNIQUE: Ultrasound evaluation of the thyroid was performed withreal-time and static tong-scale imaging. COMPARISON: Comparison is made with prior examination dated . FINDINGS: RIGHT LOBE: The right lobe of the thyroid gland is enlarged and measures6.2 cm x 1.9 cm by 2.2 cm. There is a homogeneous echotexture. Thereisa 2 cm x 1.6 cm [...] unchanged. ISTHMUS: The isthmus measures 3.3 mm. IMPRESSION:There is been a slight increase in size of the solid nodule in the rightlobe of the thyroid. Signed:Franko Julien M.D.May 20, 2012 at 3:49:16 PM [phone] Signed GP/GP If you are the referring physician and would like to consult with theradiologist who provided this interpretation, please contact Denton Chau at [phone]. If this radiologist is unavailable, youwill be directed to another radiologist to assist. If you are a patient with a question regarding this report, pleasecontactyour referring physician directly. Professional Interpretation Provided By: [employer], Phone , These documents contain legally protected [...] destructionofthese documents. Dictated on 05/20/12 1107 by Cheryl Julien MDranscribed on 05/20/12 1555 by ITS IMPORTSign by Franko Julien MD on 05/20/12 1556 Sign by: Franko Julien MD CBC WITH MANUAL DIFF ([id number]) Ordered By: Nutritionist on 2012 Basophils (Bld) [#/Vol] 0.1 {x10E3/uL} Normal 0.0-0.2 [facility] Work Phone: Comment on above: PATIENT WAS FASTINGP ERFORMED BY: LabCoHoboken University Medical CenterJbriva4648 [facility] [id number] Information: [id number] Basophils (Bld) [#/Vol] 0.1 10*3/uL Normal 0.0-0.2 [facility]; [facility] Work Phone: Basophils/100 WBC (Bld) 1 % Normal 0-3 [facility] Work Phone: Comment on above: PATIENT WAS FASTINGP ERFORMED BY: [address] [id number] Information: [id number] Eosinophils (Bld) [#/Vol] 0.5 {x10E3/uL} Abnormal 0.0-0.4 [facility] Work Phone: Comment on above: PATIENT WAS FASTINGP ERFORMED BY: [address] [id number] Information: [id number] Eosinophils (Bld) [#/Vol] 0.5 10*3/uL Abnormal 0.0-0.4 [facility]; [facility] Work Phone: Eosinophils/100 WBC (Bld) 6 % Normal 0-7 [facility] Work Phone: Comment on above: PATIENT WAS FASTINGP ERFORMED BY: [address] [id number] Information: [id number] Erythrocyte distribution width (RBC) [Ratio] 13.8 % Normal 12.3-15.4 [facility] Work Phone: Comment on above: PATIENT WAS FASTINGP ERFORMED BY: [address] [id number] Information: [id number] Hematocrit (Bld) [Volume fraction] 49.7 % Normal 37.5-51.0 [facility] Work Phone: Comment on above: PATIENT WAS FASTINGP ERFORMED BY: [place] 7958370 [facility] [id number] Information: [id number] Hemoglobin (Bld) [Mass/Vol] 17.1 g/dL Normal 12.6-17.7 [facility] Work Phone: Comment on above: PATIENT WAS FASTINGP ERFORMED BY: [place] 7958370 [facility] [id number] Information: [id number] Immature granulocytes (Bld) [#/Vol] 0.0 {x10E3/uL} Normal 0.0-0.1 [facility] Work Phone: Comment on above: PATIENT WAS FASTINGP ERFORMED BY: [place] 7958370 [facility] [id number] Information: [id number] Immature granulocytes (Bld) [#/Vol] 0.0 10*3/uL Normal 0.0-0.1 [facility]; [facility] Work Phone: Immature granulocytes/100 WBC (Bld) 0 % Normal 0-2 [facility] Work Phone: Comment on above: PATIENT WAS FASTINGP ERFORMED BY: [place] 7958370 [facility] [id number] Information: [id number] Lymphocytes (Bld) [#/Vol] 1.7 {x10E3/uL} Normal 0.7-4.5 [facility] Work Phone: Comment on above: PATIENT WAS FASTINGP ERFORMED BY: [facility]6370 [facility] [id number] Information: [id number] Lymphocytes (Bld) [#/Vol] 1.7 10*3/uL Normal 0.7-4.5 [facility]; [facility] Work Phone: Lymphocytes/100 WBC (Bld) 20 % Normal 14-46 [facility] Work Phone: Comment on above: PATIENT WAS FASTINGP ERFORMED BY: [facility]6370 [facility] [id number] Information: [id number] MCH (RBC) [Entitic mass] 31.7 pg Normal 26.6-33.0 [facility] Work Phone: Comment on above: PATIENT WAS FASTINGP ERFORMED BY: DOROTHY [facility] Xreszy5194 [facility] [id number] Information: [id number] MCHC (RBC) [Mass/Vol] 34.4 g/dL Normal 31.5-35.7 [facility] Work Phone: Comment on above: PATIENT WAS FASTINGP ERFORMED BY: DOROTHY [address] [id number] Information: [id number] MCV (RBC) [Entitic vol] 92 fL Normal 79-97 [facility] Work Phone: Comment on above: PATIENT WAS FASTINGP ERFORMED BY: DOROTHY [address] [id number] Information: [id number] Monocytes (Bld) [#/Vol] 0.7 {x10E3/uL} Normal 0.1-1.0 [facility] Work Phone: Comment on above: PATIENT WAS FASTINGP ERFORMED BY: DOROTHY [facility]6370 [facility] [id number] Information: [id number] Monocytes (Bld) [#/Vol] 0.7 10*3/uL Normal 0.1-1.0 [facility]; [facility] Work Phone: Monocytes/100 WBC (Bld) 8 % Normal 4-13 [facility] Work Phone: Comment on above: PATIENT WAS FASTINGP ERFORMED BY: DOROTHY [facility]6370 [facility] [id number] Information: [id number] Neutrophils (Bld) [#/Vol] 5.7 {x10E3/uL} Normal 1.8-7.8 [facility] Work Phone: Comment on above: PATIENT WAS FASTINGP ERFORMED BY: DOROTHY [place] [id number] [facility] [id number] Information: [id number] Neutrophils (Bld) [#/Vol] 5.7 10*3/uL Normal 1.8-7.8 [facility]; [facility] Work Phone: Neutrophils/100 WBC (Bld) 65 % Normal 40-74 [facility] Internal Medicine Work Phone: Comment on above: PATIENT WAS FASTINGP ERFORMED BY: [place] [address]958370 [facility] [id number] Information: [id number] Platelets (Bld) [#/Vol] 191 {x10E3/uL} Normal 140-415 [facility] Internal Medicine Work Phone: Comment on above: PATIENT WAS FASTINGP ERFORMED BY: [place] 7958370 [facility] [id number] Information: [id number] Platelets (Bld) [#/Vol] 191 10*3/uL Normal 140-415 [facility] Internal Medicine; [facility] Internal Medicine Work Phone: RBC (Bld) [#/Vol] 5.39 {x10E6/uL} Normal 4.14-5.80 [facility] Internal Medicine Work Phone: Comment on above: PATIENT WAS FASTINGP ERFORMED BY: [facility]6370 [facility] [id number] Information: [id number] RBC (Bld) [#/Vol] 5.39 10*6/uL Normal 4.14-5.80 [facility] Internal Medicine; [facility] Internal Medicine Work Phone: WBC (Bld) [#/Vol] 8.7 {x10E3/uL} Normal 4.0-10.5 [facility] Internal Medicine Work Phone: Comment on above: PATIENT WAS FASTINGP ERFORMED BY: [facility]6370 [facility] [id number] Information: [id number] WBC (Bld) [#/Vol] 8.7 10*3/uL Normal 4.0-10.5 Compre americ[facility] healthcare systemsive Internal [facility]; [facility] Work Phone: CHEST, PA AND LATERALOrdered By: Nutritionist on 2012 CHEST, PA AND LATERAL See Note Normal [facility] Work Phone: Comment on above: PROCEDURE: X-RAY MIN[place] ST REASON FOR EXAM: Male, 67 years old. Routine examination. TECHNIQUE: PA and lateral views of the chest. COMPARISON: Comparison is made with prior study dated January 31, 2009. FINDINGS: The lungs are expanded. There is [...] upper abdomen. IMPRESSION:No acute abnormality is seen. Signed:Franko Julien M.D.2012 at 2:44:05 PM [phone] Signed GP/GP If you are the referring physician and would like to consult with theradiologist who provided this interpretation, please contact Denton Chau at [phone]. If this radiologist is unavailable, youwill be directed to another radiologist to assist. If you are a patient with a question regarding this report, pleasecontactyour referring physician directly. Professional Interpretation Provided By: [employer], Phone , These documents contain legally protected [...] the return or destructionofthese documents. Dictated on 05/08/12 0900 by Mojgan Julien MDscribed on 05/08/12 1450 by ITS IMPORTSign by Franko Julien MD on 05/08/12 1451 Sign by: Franko Julien MD LIPID PANEL ([id number])Ordered B y: Nutritionist on 2012 Cholesterol [Mass/Vol] 207 mg/dL Abnormal 100-199 [facility] Work Phone: Comment on above: Please note refere nce interval change PATIENT WAS FASTINGP ERFORMED BY: CB [facility] Thqeoh0453 [address] RoadDublin [place] [id number] Cholesterol in HDL [Mass/Vol] 39 mg/dL Abnormal [facility] Work Phone: Comment on above: According to ATP-III Guidelines, HDL-C >59 mg/dL is considered anegative risk factor for CHD. PATIENT WAS FASTINGP ERFORMED BY: CB [facility] Tvczdz7046 [address] RoadDublin [place] [id number] Cholesterol in LDL [Mass/Vol] 143 mg/dL Abnormal 0-99 [facility] Work Phone: Comment on above: Please note refere nce interval change PATIENT WAS FASTINGP ERFORMED BY: CB [facility] Cmtylx0783 [address] RoadDublin [place] [id number] Cholesterol in LDL/Cholesterol in HDL [Mass ratio] 3.7 {ratio_units} Abnormal 0.0-3.6 [facility] Work Phone: Comment on above: PATIENT WAS FASTINGP ERFORMED BY: CB [facility] Etxzdv4402 [address] RoadDublin [place] [id number] Cholesterol in VLDL [Mass/Vol] 25 mg/dL Normal 5-40 [facility] Work Phone: Comment on above: PATIENT WAS FASTINGP ERFORMED BY: CB [facility] Edjovy7761 [address] RoadDublin [place] [id number] Triglyceride [Mass/Vol] 124 mg/dL Normal 0-149 [facility] Work Phone: Comment on above: Please note refere nce interval change PATIENT WAS FASTINGP ERFORMED BY: CB [facility] Jhxrmz3428 [address] RoadDublin [place] [id number] METABOLIC PANEL, COMPREHENSI VE ([id number])Ordered By: Nutritionist on 2012 Albumin [Mass/Vol] 4.2 g/dL Normal 3.6-4.8 [facility] [place] [facility] Work Phone: Comment on above: PATIENT WAS FASTINGP ERFORMED BY: CB [facility] Qznkal9852 [address] RoadDublin [place] [id number] Albumin/Globulin [Mass ratio] 1.8 {ratio} Normal 1.1-2.5 [facility] Work Phone: Comment on above: PATIENT WAS FASTINGP ERFORMED BY: CB [facility] Qcnict4288 [address] RoadDublin [place] [id number] ALP [Catalytic activity/Vol] 93 [iU]/L Normal 25-160 [facility] Work Phone: Comment on above: PATIENT WAS FASTINGP ERFORMED BY: CB [facility] Akzckp4571 [address] RoadDublin [place] [id number] ALP [Catalytic activity/Vol] 93 U/L Normal 25-160 [facility]; [facility] Work Phone: ALT [Catalytic activity/Vol] 19 [iU]/L Normal 0-55 [facility] Work Phone: Comment on above: PATIENT WAS FASTINGP ERFORMED BY: CB [facility] Ypnmqp1460 [address] RoadDublin [place] [id number] ALT [Catalytic activity/Vol] 19 U/L Normal 0-55 [facility]; [facility] Work Phone: AST [Catalytic activity/Vol] 21 [iU]/L Normal 0-40 [facility] Work Phone: Comment on above: PATIENT WAS FASTINGP ERFORMED BY: CB [facility] Sofimx8805 [address] RoadDublin [place] [id number] AST [Catalytic activity/Vol] 21 U/L Normal 0-40 [facility]; [facility] Work Phone: Bilirubin [Mass/Vol] 1.1 mg/dL Normal 0.0-1.2 [facility] Centerensive Internal [facility] Work Phone: Comment on above: PATIENT WAS FASTINGP ERFORMED BY: DOROTHY [facility] Thbwxj0131 [address] RoadDublin [place] [id number] Calcium [Mass/Vol] 8.9 mg/dL Normal 8.6-10.2 [facility] [place] [facility] Work Phone: Comment on above: PATIENT WAS FASTINGP ERFORMED BY: CB [facility] Ibtbyj8983 [address] RoadDublin [place] [id number] Chloride [Moles/Vol] 104 mmol/L Normal 97-108 [facility] Work Phone: Comment on above: PATIENT WAS FASTINGP ERFORMED BY: DOROTHY [facility] Dinpwp0268 [address] RoadDublin [place] [id number] CO2 [Moles/Vol] 23 mmol/L Normal 20-32 [facility]prehst. [facility] Work Phone: Comment on above: PATIENT WAS FASTINGP ERFORMED BY: CB [facility] Izqbyy9781 [address] RoadDublin [place] [id number] Creatinine [Mass/Vol] 1.02 mg/dL Normal 0.76-1.27 [facility] Work Phone: Comment on above: PATIENT WAS FASTINGP ERFORMED BY: [facility] Zhefxo9362 [address] RoadDublin [place] [id number] GFR/1.73 sq M predicted among blacks CKD-EPI (S/P/Bld) [Vol rate/Area] 88 mL/min/1.73 Normal [facility] Work Phone: Comment on above: PATIENT WAS FASTINGP ERFORMED BY: CB [facility] Hguids7570 [address] RoadDublin [place] [id number] GFR/1.73 sq M predicted among non-blacks CKD-EPI (S/P/Bld) [Vol rate/Area] 76 mL/min/1.73 Normal [facility] Work Phone: Comment on above: PATIENT WAS FASTINGP ERFORMED BY: DOROTHY [facility] Blnqex4962 [address] RoadDublin [place] [id number] Globulin (S) [Mass/Vol] 2.4 g/dL Normal 1.5-4.5 [facility] Work Phone: Comment on above: PATIENT WAS FASTINGP ERFORMED BY: DOROTHY LabComonserrat CastilloUaosbi3047 [address] RoadDublin [place] [id number] Glucose [Mass/Vol] 90 mg/dL Normal 65-99 [facility] [place] [facility] Work Phone: Comment on above: PATIENT WAS FASTINGP ERFORMED BY: DOROTHY LabEll[facility] Yvwubz0763 [address] RoadDublin [place] [id number] Potassium [Moles/Vol] 4.6 mmol/L Normal 3.5-5.2 [facility] Work Phone: Comment on above: PATIENT WAS FASTINGP ERFORMED BY: DOROTHY [facility]iasEll[facility] Ayxhnd8427 [address] RoadDublin [place] [id number] Protein [Mass/Vol] 6.6 g/dL Normal 6.0-8.5 [facility] [place] [facility] Work Phone: Comment on above: PATIENT WAS FASTINGP ERFORMED BY: DOROTHY LabJessenia CastilloKvqotf7036 [address] RoadDublin [place] [id number] Sodium [Moles/Vol] 141 mmol/L Normal 134-144 [facility] [place] [facility] Work Phone: Comment on above: PATIENT WAS FASTINGP ERFORMED BY: DOROTHY LabEll[facility] Epesxq6844 [address] RoadDublin [place] [id number] Urea nitrogen [Mass/Vol] 18 mg/dL Normal 8-27 [facility] Work Phone: Comment on above: PATIENT WAS FASTINGP ERFORMED BY: DOROTHY [facility] Zsuhhs3154 [address] RoadDublin [place] [id number] Urea nitrogen/Creatinine [Mass ratio] 18 mg/mg Normal 10-22 [facility] Work Phone: Comment on above: PATIENT WAS FASTINGP ERFORMED BY: DOROTHY LabRenuka Lpmhyp4783 [address] RoadDublin [place] [id number] MICROALBUMINOrdered By: Syst em Ion Implant Machine Operator on 2012 Albumin DL <= 20 mg/L (U) [Mass/Vol] 9.6 ug/mL Normal 0.0-17.0 Comprehensiv e Internal Medicine Work Phone: Comment on above: PATIENT WAS FASTINGP ERFORMED BY: [facility]6370 [facility] [id number] Albumin/Creatinine (U) [Mass ratio] 3.7 {mg/g_creat} Normal 0.0-30.0 [facility] Work Phone: Comment on above: PATIENT WAS FASTINGP ERFORMED BY: [facility]6370 [facility] [id number] Creatinine (U) [Mass/Vol] 262.2 mg/dL Normal 22.0-328.0 [facility] Work Phone: Comment on above: PATIENT WAS FASTINGP ERFORMED BY: [facility]6370 [facility] [id number] Microscopic ExaminationOrder ed By: Nutritionist on 2012 Bacteria LM.HPF (Urine sed) [#/Area] None seen Normal Comprehensi ve Internal Medicine Work Phone: Comment on above: PATIENT WAS FASTINGP ERFORMED BY: [facility]6370 [facility] [id number] Epithelial cells LM.HPF (Urine sed) [#/Area] 0-10 Normal 0 - 10 [facility] Work Phone: Comment on above: PATIENT WAS FASTINGP ERFORMED BY: [facility]Stra[facility]6370 [facility] [id number] Mucus Ql (Urine sed) Present Normal Comp rehensive Internal Medicine Work Phone: Comment on above: PATIENT WAS FASTINGP ERFORMED BY: [facility]Stra[facility]6370 [facility] [id number] RBC LM.HPF (Urine sed) [#/Area] 0-3 Normal 0 - 3 [facility] Work Phone: Comment on above: PATIENT WAS FASTINGP ERFORMED BY: DOROTHY [facility] Bverze8049 [address] RoadDublin [place] [id number] WBC LM.HPF (Urine sed) [#/Area] 0-5 Normal 0 - 5 [facility] Work Phone: Comment on above: PATIENT WAS FASTINGP ERFORMED BY: DOROTHY [facility] Okmgwz1463 [address] RoadDublin [place] [id number] TSH ([id number])Ordered By: Designlabe m Ion Implant Machine Operator on 2012 TSH Qn 0.773 {uIU/mL} Normal 0.450-4.50 0 [facility] Work Phone: Comment on above: PATIENT WAS FASTINGP ERFORMED BY: DROOTHY LabEll[facility] Agglfh4221 [address] RoadDublin [place] [id number] URINALYSIS, W/ MICRO ([id number]) Ordered By: Nutritionist on 2012 Appearance (U) Clear Normal Comprehens anselmo Internal Medicine Work Phone: Comment on above: PATIENT WAS FASTINGP ERFORMED BY: DOROTHY LabEll[facility] Rzhgsy6470 [address] RoadDublin [place] [id number] Bilirubin Ql (U) Negative Normal Comprehe nsive Internal Medicine Work Phone: Comment on above: PATIENT WAS FASTINGP ERFORMED BY: DOROTHY LabEll[facility] Zgreqz0541 [address] RoadDublin [place] [id number] Bilirubin Ql (U) Negative Normal Comprehe nsive Internal Medicine; [facility] Work Phone: Color (U) Yellow Normal [facility] Work Phone: Comment on above: PATIENT WAS FASTINGP ERFORMED BY: [facility] Zpeaqk4771 [address] RoadDublin [place] [id number] Glucose Ql (U) Negative Normal Comprehens anselmo Internal Medicine Work Phone: Comment on above: PATIENT WAS FASTINGP ERFORMED BY: [facility] Drbbym0487 [address] RoadDublin [place] [id number] Glucose Ql (U) Negative Normal Comprehens anselmo Internal Medicine; [facility] Work Phone: Hemoglobin Ql (U) Negative Normal Compreh ensive Internal Medicine Work Phone: Comment on above: PATIENT WAS FASTINGP ERFORMED BY: DOROTHY [facility] Bromyo4578 [address] Roadblin [place] [id number] Hemoglobin Ql (U) Negative Normal Compreh ensive Internal Medicine; [facility] Work Phone: Ketones Ql (U) Negative Normal Comprehens anselmo Internal Medicine Work Phone: Comment on above: PATIENT WAS FASTINGP ERFORMED BY: DOROTHY [facility] Zpcrkc8784 [address] RoadDublin [place] [id number] Ketones Ql (U) Negative Normal Comprehens anselmo Internal Medicine; [facility] Work Phone: Leukocyte esterase Test strip Ql (U) Negative Normal [facility] Work Phone: Comment on above: PATIENT WAS FASTINGP ERFORMED BY: DOROTHY [facility] Qylaks7647 [address] RoadDuin [place] [id number] Leukocyte esterase Test strip Ql (U) Negative Normal [facility]; [facility] Work Phone: Microscopic observation LM Nom (Urine sed) MICRON Normal [facility] Work Phone: Comment on above: Microscopic follows if indicated. PATIENT WAS FASTINGP ERFORMED BY: DOROTHY [facility] Grxzgo0683 [address] [facility] [id number] Microscopic observation LM Nom (Urine sed) See below: Normal [facility] Work Phone: Comment on above: PATIENT WAS FASTINGP ERFORMED BY: DOROTHY [facility] Pncoep1910 [address] [facility]in [place] [id number] Nitrite Ql (U) Negative Normal Comprehens anselmo Internal Medicine Work Phone: Comment on above: PATIENT WAS FASTINGP ERFORMED BY: DOROTHY [facility] Bmxmww6475 Bishop RoadUnc Medical Centerin [place] [id number] Nitrite Ql (U) Negative Normal Comprehens anselmo Internal Medicine; [facility] Work Phone: pH (U) 6.0 [pH] Normal 5.0-7.5 [facility] Work Phone: Comment on above: PATIENT WAS FASTINGP ERFORMED BY: [facility] Hdlezu7576 [address] [facility] CommerceAt[facility] Health Pine[facility] [id number] Protein Ql (U) Trace Normal Comprehens anselmo Internal Medicine Work Phone: Comment on above: PATIENT WAS FASTINGP ERFORMED BY: [facility] Bzolmc2665 [facility] [id number] Specific gravity (U) [Rel density] 1.019 1 Normal 1.005-1.03 0 [facility] Internal Medicine Work Phone: Comment on above: PATIENT WAS FASTINGP ERFORMED BY: [facility] Kawnqu4147 [address] [place] [facility] CommerceAt[facility] Health [facility] [id number] Urobilinogen (U) [Mass/Vol] 1.0 mg/dL Normal 0.0-1.9 [facility]; [facility] Work Phone: Urobilinogen Test strip (U) [Mass/Vol] 1.0 mg/dL Normal 0.0-1.[address] [facility]erensi Internal Medicine Work Phone: Comment on above: PATIENT WAS FASTINGP ERFORMED BY: iContact Ofgwdk0208 [facility] [id number] CBCD,SMEAR DIFFOrdered By: Payam woodte Ion Implant Machine Operator on 10-03-2011 Eosinophils/100 WBC (Bld) 1 % Normal 0-5 [facility] Work Phone: Erythrocyte distribution width (RBC) [Ratio] 13.4 % Normal 11.6-14.6 [facility] Work Phone: Hematocrit (Bld) [Volume fraction] 48.4 % Normal 40-54 [facility] Work Phone: Hemoglobin (Bld) [Mass/Vol] 16.8 g/dL Normal 14.0-18.0 [facility] Work Phone: Lymphocytes/100 WBC (Bld) 16 % Abnormal 19-41 [facility] Work Phone: MCH (RBC) [Entitic mass] 32.6 pg Abnormal 27.0-32.0 [facility] Work Phone: MCHC (RBC) [Mass/Vol] 34.6 g/dL Normal 32-36 [facility] Internal Medicine Work Phone: MCV (RBC) [Entitic vol] 94.3 fL Abnormal 80-94 [facility] Internal Medicine Work Phone: Monocytes/100 WBC (Bld) 5 % Normal 0-10 [facility] Internal Medicine Work Phone: Neutrophils (Bld) [#/Vol] 6.3 3/uL Normal 2.0-7.7 [facility] [facility] Work Phone: Platelets (Bld) [#/Vol] 220 10*3/uL Normal 150-450 [facility] Internal Medicine Work Phone: Platelets (Bld) [#/Vol] SeeNote Normal [facility] Internal Medicine Work Phone: Comment on above: Result: ADEQUATE RBC (Bld) [#/Vol] 5.13 {M/mm3} Normal 4.6-6.2 [facility] Internal Medicine Work Phone: WBC (Bld) [#/Vol] 8.7 10*3/uL Normal 4.4-11.0 [facility] [place] Internal Medicine Work Phone: CBCD,SMEAR DIFF 78 % Abnormal 47-70 [facility] Internal Medicine Work Phone: CBCD,SMEAR DIFF 100 1 Normal [facility] Internal Medicine Work Phone: CBCD,SMEAR DIFF N CHROM Normal [facility] Internal Medicine Work Phone: CBCD,SMEAR DIFF 1+ Normal [facility] Internal Medicine Work Phone: COMP METABOLICOrdered By: Maury stem Ion Implant Machine Operator on 10-03-2011 Albumin [Mass/Vol] 4.1 g/dL Normal 3.4-5.0 [facility] [place] Internal Medicine Work Phone: Albumin/Globulin [Mass ratio] 1.2 {RATIO} Normal 0.9-2.4 [facility] Internal Medicine Work Phone: ALP [Catalytic activity/Vol] 93 U/L Normal 50-136 [facility] Internal Medicine Work Phone: ALT [Catalytic activity/Vol] 26 U/L Normal 12-78 [facility] Work Phone: Anion gap [Moles/Vol] 9 mmol/L Normal 5-15 [facility] Work Phone: AST [Catalytic activity/Vol] 17 U/L Normal 15-37 [facility] Work Phone: Bilirubin [Mass/Vol] 1.00 mg/dL Normal 0.00-1.00 [facility] Work Phone: Calcium [Mass/Vol] 8.5 mg/dL Normal 8.5-10.1 [facility] Internal [facility] Work Phone: Chloride [Moles/Vol] 101 mmol/L Normal 98-107 [facility] Work Phone: CO2 [Moles/Vol] 30.0 mmol/L Normal 21.0-32.0 [facility] Work Phone: Creatinine [Mass/Vol] 1.0 mg/dL Normal 0.8-1.3 [facility] Work Phone: GFR/1.73 sq M predicted among blacks MDRD (S/P/Bld) [Vol rate/Area] 97 mL/min/{1.73_m2} Normal [facility] Work Phone: GFR/1.73 sq M.predicted MDRD (S/P/Bld) [Vol rate/Area] 80 mL/min/{1.73_m2} Normal [facility] Work Phone: GFR/1.73 sq M.predicted MDRD vol rate/area 80 mL/min/{1.73_m2} Normal [facility] Work Phone: Globulin (S) [Mass/Vol] 3.3 g/dL Normal 2.7-4.2 [facility] Work Phone: Glucose [Mass/Vol] 75 mg/dL Normal 70-110 [facility] [place] Internal Medicine Work Phone: Potassium [Moles/Vol] 4.4 mmol/L Normal 3.5-5.1 [facility] Work Phone: Protein [Mass/Vol] 7.4 g/dL Normal 6.4-8.2 [facility] Internal Medicine Work Phone: Sodium [Moles/Vol] 140 mmol/L Normal 136-145 [facility] [place] Internal Medicine Work Phone: Urea nitrogen [Mass/Vol] 14 mg/dL Normal 7-18 [facility] Work Phone: Urea nitrogen/Creatinine [Mass ratio] 14.0 {RATIO} Normal 10-20 [facility] Internal Medicine Work Phone: COMPLETE UAOrdered By: Olga quesada Ion Implant Machine Operator on 10-03-2011 Bacteria LM.HPF (Urine sed) [#/Area] RARE Normal [facility] Work Phone: Clarity (U) CLEAR Normal [facility] Internal Medicine Work Phone: Color (U) YELLOW Normal [facility] Work Phone: Glucose mass conc SeeNote Normal [facility] Work Phone: Comment on above: Result: NEGATIVE Protein mass conc SeeNote Normal [facility] Work Phone: Comment on above: Result: NEGATIVE RBC (U) [#/Vol] 0 SEEN Normal 0-5 [facility] Internal Medicine Work Phone: WBC (Bld) [#/Vol] SeeNote Normal 0-5 [facility] Work Phone: Comment on above: Result: 0-5 SEEN COMPLETE UA 0 SEEN Normal [facility] Work Phone: COMPLETE UA SeeNote Normal [facility] Work Phone: Comment on above: Result: 0-5 SEEN Result: TRACE-INTACT Result: NEGATIVE COMPLETE UA TRACE Abnormal [facility] Work Phone: COMPLETE UA 0.2 EU/dl Normal 0.2 - 1.0 [facility] Work Phone: COMPLETE UA 6.0 1 Normal 5.0-8.0 [facility] Work Phone: COMPLETE UA 1.015 1 Normal 1.002-1.03 0 [facility] Work Phone: LIPIDOrdered By: Crista worrell on 10-03-2011 Cholesterol [Mass/Vol] 188 mg/dL Normal [facility] Work Phone: Comment on above: <200 mg/dL Desirable 200-240 mg/dL Borderline >240 mg/dL High Risk Cholesterol in HDL [Mass/Vol] 34 mg/dL Abnormal [facility] Work Phone: Comment on above: Reference Range HDL <40 mg/dL Low HDL Cholesterol HDL >or= 60 mg/dL High HDL Cholesterol Cholesterol in LDL [Mass/Vol] 119 mg/dL Normal 0-130 [facility] Work Phone: Cholesterol in VLDL [Mass/Vol] 35 mg/dL Normal 5-40 [facility] Work Phone: Triglyceride [Mass/Vol] 176 mg/dL Normal [facility] Work Phone: Comment on above: Serum Triglycerides Reference Interval Normal <150 mg/dL Borderline high 150 - 199 mg/dL High 200 - 499 mg/dL Very High > or = 500 mg/dL MICROALBOrdered By: Crista olivia on 10-03-2011 Creatinine [Mass/Vol] 99.5 mg/dL Normal [facility] Work Phone: Creatinine [Mass/Vol] 23.7 {mg/g_CRE} Normal [facility] Work Phone: MICROALB 23.6 mg/L Normal [facility] Work Phone: TSHOrdered By: System Manage r on 10-03-2011 TSH Qn 1.15 {uIU/mL} Normal 0.358-3.74 [facility] Work Phone: THYROID (HP)Ordered By: Syst em Ion Implant Machine Operator on 05-23-2010 THYROID (HP) See Note Normal [facility] Work Phone: Comment on above: Exam Number: [id number] LINICAL:Goiter. Bilateral thyroid nodules. ULTRASOUND THYROID TECHNIQUE:Multiple ultrasound images of the thyroid gland are submitted forinterpretation with the technologist worksheet. COMPARISON:06/14/09 FINDINGS:The right thyroid lobe is enlarged and heterogeneous, measuring 5.7x 1.9 x 2.0 cm. in there is a hypoechoic, solid nodule in the lowerpole of the right thyroid lobe that measures 1.7 x 1.6 x 0.9 cm anddoes not appear significantly changed. A small hypoechoic nodule inthe upper pole of the right thyroid lobe measuring 0.4 x 0.5 x 0.2cm appears stable, but was not measured on the previous exam. The left thyroid lobe is enlarged and heterogeneous measuring 5.2 x2.0 x 1.8 cm. There is a small hypoechoic nodule in the left midthyroid lobe that measures 0.7 x 0.4 x 0.4 cm and is notsignificantly changed. There is no discrete solid or cystic lesion. Normal thyroid isthmus. There is no perithyroidal pathology. IMPRESSION:Enlarged, heterogeneous thyroid gland containing scattered nodulesmeasuring up to 1.7 cm in the right inferior thyroid lobe. These donot appear significantly changed compared to the previous exam. Reported By: JENNY DAMON M.D. CBCD,SMEAR DIFFOrdered By: Payam [facility] Ion Implant Machine Operator on 05-18-2010 Band form neutrophils/100 WBC (Bld) 1 % Normal 0-5 [facility] Work Phone: Comment on above: ORDERED P SA,LITO ORDERED EVERYTHING BUT PSA Eosinophils/100 WBC (Bld) 1 % Normal 0-5 [facility] Work Phone: Comment on above: ORDERED P SA,BMP ORDERED EVERYTHING BUT PSA Erythrocyte distribution width (RBC) [Ratio] 13.7 % Normal 11.6-14.6 [facility] Work Phone: Comment on above: ORDERED P SA,BMP ORDERED EVERYTHING BUT PSA Hematocrit (Bld) [Volume fraction] 44.5 % Normal 40-54 [facility] Work Phone: Comment on above: ORDERED P SA,BMP ORDERED EVERYTHING BUT PSA Hemoglobin (Bld) [Mass/Vol] 15.5 g/dL Normal 14.0-18.0 [facility] Work Phone: Comment on above: ORDERED P SA,BMPDR.JOSE ORDERED EVERYTHING BUT PSA Lymphocytes/100 WBC (Bld) 16 % Abnormal 19-41 [facility] Work Phone: Comment on above: ORDERED P SA,BMPDRMINH ORDERED EVERYTHING BUT PSA MCH (RBC) [Entitic mass] 32.0 pg Normal 27.0-32.0 [facility] Work Phone: Comment on above: ORDERED P SA,BMPDRMINH ORDERED EVERYTHING BUT PSA MCHC (RBC) [Mass/Vol] 34.8 g/dL Normal 32-36 [facility] Work Phone: Comment on above: ORDERED P SA,BMPDRZACKJOSE ORDERED EVERYTHING BUT PSA MCV (RBC) [Entitic vol] 91.8 fL Normal 80-94 [facility] Work Phone: Comment on above: ORDERED P SA,BMPDR.JOSE ORDERED EVERYTHING BUT PSA Monocytes/100 WBC (Bld) 10 % Normal 0-10 [facility] Work Phone: Comment on above: ORDERED P SA,BMPDR.JOSE ORDERED EVERYTHING BUT PSA Neutrophils (Bld) [#/Vol] 4.8 3/uL Normal 2.0-7.7 [facility] Work Phone: Comment on above: ORDERED P SA,BMP ORDERED EVERYTHING BUT PSA Platelets (Bld) [#/Vol] SeeNote Normal [facility] Work Phone: Comment on above: Result: ADEQUATE ORDERED P SA,BMP ORDERED EVERYTHING BUT PSA Platelets (Bld) [#/Vol] 207 10*3/uL Normal 150-450 [facility] Work Phone: Comment on above: ORDERED P SA,BMP ORDERED EVERYTHING BUT PSA RBC (Bld) [#/Vol] 4.84 {M/mm3} Normal 4.6-6.2 [facility] Medicine Work Phone: Comment on above: ORDERED P SA,BMPDR.JOSE ORDERED EVERYTHING BUT PSA WBC (Bld) [#/Vol] 6.9 10*3/uL Normal 4.4-11.0 [facility] Work Phone: Comment on above: ORDERED P SA,BMPDR.JOSE ORDERED EVERYTHING BUT PSA CBCD,SMEAR DIFF 100 1 Normal [email or web address] Work Phone: Comment on above: ORDERED P SA,BMPDR.JOSE ORDERED EVERYTHING BUT PSA CBCD,SMEAR DIFF 72 % Abnormal 47-70 [facility] [[email or web address] Work Phone: Comment on above: ORDERED P SA,BMPDR.JOSE ORDERED EVERYTHING BUT PSA CBCD,SMEAR DIFF 1 % Normal 0-5 [facility] [[email or web address] Work Phone: Comment on above: ORDERED P SA,BMPDR.JOSE ORDERED EVERYTHING BUT PSA COMP METABOLICOrdered By: stem Ion Implant Machine Operator on 05-18-2010 Albumin [Mass/Vol] 3.6 g/dL Normal 3.4-5.0 [facility] Work Phone: Comment on above: ORDERED P SA,BMPDR.JOSE ORDERED EVERYTHING BUT PSA Albumin/Globulin [Mass ratio] 1.1 {RATIO} Normal 0.9-2.4 [facility] Internal Medicine Work Phone: Comment on above: ORDERED P SA,BMPDR.JOSE ORDERED EVERYTHING BUT PSA ALP [Catalytic activity/Vol] 88 U/L Normal 50-136 [facility] Internal Medicine Work Phone: Comment on above: ORDERED P SA,BMPDR.JOSE ORDERED EVERYTHING BUT PSA ALT [Catalytic activity/Vol] 21 U/L Normal 12-78 [facility] Internal Medicine Work Phone: Comment on above: ORDERED P SA,BMPDR.JOSE ORDERED EVERYTHING BUT PSA Anion gap [Moles/Vol] 7 mmol/L Normal 5-15 [facility] Internal Medicine Work Phone: Comment on above: ORDERED P SA,BMPDR.JOSE ORDERED EVERYTHING BUT PSA AST [Catalytic activity/Vol] 16 U/L Normal 15-37 [facility] Work Phone: Comment on above: ORDERED P SA,BMPDR.JOSE ORDERED EVERYTHING BUT PSA Bilirubin [Mass/Vol] 0.60 mg/dL Normal 0.00-1.00 [facility] Work Phone: Comment on above: ORDERED P SA,BMPDR.JOSE ORDERED EVERYTHING BUT PSA Calcium [Mass/Vol] 8.2 mg/dL Abnormal 8.5-10.1 [facility] [place] [facility] Work Phone: Comment on above: ORDERED P SA,BMPDR.JOSE ORDERED EVERYTHING BUT PSA Chloride [Moles/Vol] 107 mmol/L Normal 98-107 [facility] Work Phone: Comment on above: ORDERED P SA,BMPDR.JOSE ORDERED EVERYTHING BUT PSA CO2 [Moles/Vol] 26.0 mmol/L Normal 21.0-32.0 [facility] Internal Medicine Work Phone: Comment on above: ORDERED P SA,BMPDR.JOSE ORDERED EVERYTHING BUT PSA Creatinine [Mass/Vol] 1.2 mg/dL Normal 0.8-1.3 [facility] Internal Medicine Work Phone: Comment on above: ORDERED P SA,BMPDR.JOSE ORDERED EVERYTHING BUT PSA GFR/1.73 sq M predicted among blacks MDRD (S/P/Bld) [Vol rate/Area] 79 mL/min/{1.73_m2} Normal [facility] Work Phone: Comment on above: ORDERED P SA,BMPDR.JOSE ORDERED EVERYTHING BUT PSA GFR/1.73 sq M.predicted MDRD (S/P/Bld) [Vol rate/Area] 65 mL/min/{1.73_m2} Normal [facility] Work Phone: Comment on above: ORDERED P SA,BMPDR.JOSE ORDERED EVERYTHING BUT PSA GFR/1.73 sq M.predicted MDRD vol rate/area 65 mL/min/{1.73_m2} Normal [facility] Work Phone: Comment on above: ORDERED P SA,BMPDR.JOSE ORDERED EVERYTHING BUT PSA Globulin (S) [Mass/Vol] 3.3 g/dL Normal 2.7-4.2 [facility] Internal Medicine Work Phone: Comment on above: ORDERED P SA,BMPDR.JOSE ORDERED EVERYTHING BUT PSA Glucose [Mass/Vol] 103 mg/dL Normal 70-110 [facility] [place] [facility] Medicine Work Phone: Comment on above: ORDERED P SA,BMPDR.JOSE ORDERED EVERYTHING BUT PSA Potassium [Moles/Vol] 4.5 mmol/L Normal 3.5-5.1 [facility] Internal Medicine Work Phone: Comment on above: ORDERED P SA,BMPDR.JOSE ORDERED EVERYTHING BUT PSA Protein [Mass/Vol] 6.9 g/dL Normal 6.4-8.2 [facility] Work Phone: Comment on above: ORDERED P SA,BMPDR.JOSE ORDERED EVERYTHING BUT PSA Sodium [Moles/Vol] 140 mmol/L Normal 136-145 [facility] Work Phone: Comment on above: ORDERED P SA,BMPDR.JOSE ORDERED EVERYTHING BUT PSA Urea nitrogen [Mass/Vol] 21 mg/dL Abnormal 7-18 [facility] Internal Medicine Work Phone: Comment on above: ORDERED P SA,BMPDR.JOSE ORDERED EVERYTHING BUT PSA Urea nitrogen/Creatinine [Mass ratio] 17.5 {RATIO} Normal 10-20 [facility] Internal Medicine Work Phone: Comment on above: ORDERED P SA,BMPDR.JOSE ORDERED EVERYTHING BUT PSA COMPLETE UAOrdered By: Olga quesada Ion Implant Machine Operator on 05-18-2010 Bacteria LM.HPF (Urine sed) [#/Area] 0 SEEN Normal [facility] Work Phone: Comment on above: ORDERED P SA,BMPDR.JOSE ORDERED EVERYTHING BUT PSA Clarity (U) CLOUDY Normal [facility] Work Phone: Comment on above: ORDERED P SA,BMPDR.JOSE ORDERED EVERYTHING BUT PSA Color (U) YELLOW Normal [facility] Work Phone: Comment on above: ORDERED P SA,BMPDR.JOSE ORDERED EVERYTHING BUT PSA Glucose mass conc SeeNote Normal [facility] Medicine Work Phone: Comment on above: Result: NEGATIVE ORDERED P SA,BMPDR.JOSE ORDERED EVERYTHING BUT PSA Protein mass conc SeeNote Normal [facility] Work Phone: Comment on above: Result: NEGATIVE ORDERED P SA,BMPDR.JOSE ORDERED EVERYTHING BUT PSA RBC (U) [#/Vol] 0 SEEN Normal 0-5 [facility] Internal Medicine Work Phone: Comment on above: ORDERED P SA,BMPDR.JOSE ORDERED EVERYTHING BUT PSA WBC (Bld) [#/Vol] 0 SEEN Normal 0-5 [facility] Work Phone: Comment on above: ORDERED P SA,BMPDR.JOSE ORDERED EVERYTHING BUT PSA COMPLETE UA 1+ Normal [facility] Work Phone: Comment on above: ORDERED P SA,BMPDR.JOSE ORDERED EVERYTHING BUT PSA COMPLETE UA SeeNote Normal [facility] Work Phone: Comment on above: Result: NEGATIVE ORDERED P SA,BMPDR.JOSE ORDERED EVERYTHING BUT PSA Result: TRACE-LYSED Result: NORM C+C COMPLETE UA 0 SEEN Normal [facility] Work Phone: Comment on above: ORDERED P SA,BMPDR.JOSE ORDERED EVERYTHING BUT PSA COMPLETE UA 6.0 1 Normal 5.0-8.0 [facility] Work Phone: Comment on above: ORDERED P SA,BMPDR.JOSE ORDERED EVERYTHING BUT PSA COMPLETE UA >=1.030 Normal 1.002-1.03 0 [facility] Internal Medicine Work Phone: Comment on above: ORDERED P SA,BMPDR.JOSE ORDERED EVERYTHING BUT PSA COMPLETE UA 0.2 EU/dl Normal 0.2 - 1.0 [facility] Internal Medicine Work Phone: Comment on above: ORDERED P SA,BMPDR.JOSE ORDERED EVERYTHING BUT PSA COMPLETE UA 3+ Normal [facility] Internal Medicine Work Phone: Comment on above: ORDERED P SA,BMPDR.JOSE ORDERED EVERYTHING BUT PSA FREE [id number] By: System Ma nager on 05-18-2010 Free T3 [Mass/Vol] 3.0 pg/mL Normal 2.18-3.98 [facility] Work Phone: Comment on above: ORDERED P SA,BMPDR.JOSE ORDERED EVERYTHING BUT PSA LIPIDOrdered By: System Mariaelena anaid on 05-18-2010 Cholesterol [Mass/Vol] 172 mg/dL Normal [facility] Internal Medicine Work Phone: Comment on above: <200 mg/dL Desirable 200-240 mg/dL Borderline>240 mg/dL High Risk ORDERED P SA,BMPDR.JOSE ORDERED EVERYTHING BUT PSA Cholesterol in HDL [Mass/Vol] 34 mg/dL Abnormal [facility] Work Phone: Comment on above: Reference RangeHDL < 40 mg/dL Low HDL CholesterolHDL >or= 60 mg/dL High HDL Cholesterol ORDERED P SA,BMPDR.JOSE ORDERED EVERYTHING BUT PSA Cholesterol in LDL [Mass/Vol] 108 mg/dL Normal 0-130 [facility] Work Phone: Comment on above: ORDERED P SA,BMPDR.JOSE ORDERED EVERYTHING BUT PSA Cholesterol in VLDL [Mass/Vol] 30 mg/dL Normal 5-40 [facility] Work Phone: Comment on above: ORDERED P SA,BMPDR.JOSE ORDERED EVERYTHING BUT PSA Triglyceride [Mass/Vol] 149 mg/dL Normal [facility] Work Phone: Comment on above: Serum Triglycerides Reference IntervalNormal <150 mg/dLBorderline high 150 - 199 mg/dLHigh 200 - 499 mg/dLVery High > or = 500 mg/dL ORDERED P SA,BMPDR.JOSE ORDERED EVERYTHING BUT PSA MICROALBOrdered By: System Brigitte olivia on 05-18-2010 Creatinine [Mass/Vol] 263.3 mg/dL Normal [facility] Work Phone: Comment on above: ORDERED P SA,BMPDR.JOSE ORDERED EVERYTHING BUT PSA Creatinine [Mass/Vol] 6.5 {mg/g_CRE} Normal [facility] Work Phone: Comment on above: ORDERED P SA,BMPDR.JOSE ORDERED EVERYTHING BUT PSA MICROALB 17.2 mg/L Normal [facility] Work Phone: Comment on above: ORDERED P SA,BMPDR.JOSE ORDERED EVERYTHING BUT PSA PSA, SCREENOrdered By: Designlabjayne m Ion Implant Machine Operator on 05-18-2010 Prostate specific Ag [Mass/Vol] 0.7 ng/mL Normal 0.0-4.0 [facility] Work Phone: Comment on above: ORDERED P SA,BMPDR.JOSE ORDERED EVERYTHING BUT PSA T4 FREE DIRECTOrdered By: [employer] stem Ion Implant Machine Operator on 05-18-2010 Free T4 [Mass/Vol] 0.94 ng/dL Normal 0.76-1.46 [facility] [place] [facility] Work Phone: Comment on above: ORDERED P SA,BMPDR.JOSE ORDERED EVERYTHING BUT PSA TSHOrdered By: System Manage r on 05-18-2010 TSH Qn 0.77 {uIU/mL} Normal 0.358-3.74 [facility] Work Phone: Comment on above: ORDERED P SA,BMPDR.JOSE ORDERED EVERYTHING BUT PSA HEPATOBILIARY IMAGINGOrdered By: Nutritionist on 11-04-2009 HEPATOBILIARY IMAGING See Note Normal [facility] Work Phone: Comment on above: Exam Number: [id number] HEPATOBILIARY SCAN WITH KINEVAC HISTORYThis is a 64-year-old male patient with history of left lower quadrantpain. TECHNIQUE5.2 mCi of Tc99m labelled Choletec were given intravenously.Multiple scintiphotos of the right upper quadrant were obtained. 1.9micrograms of Kinevac were given intravenously at approximately 30minutes following the injection of Choletec. The gallbladder ejectionfraction was then obtained. FINDINGSThere is homogeneous uptake by the hepatocytes. The gallbladder isopacified within 30 minutes. Following the intravenous injection ofKinevac, the gallbladder contracted with an ejection fraction of 39%.This is within normal limits. IMPRESSIONNormal hepatobiliary scan with Kinevac. Reported By: FRANKO JULIEN ABDOMEN/PELVIS WITH CONTRAST Ordered By: Nutritionist on 09-19-2009 ABDOMEN/PELVIS WITH CONTRAST See Note Normal [facility] Work Phone: Comment on above: Exam Number: [id number] CT SCAN OF THE ABDOMEN AND PELVIS Multiple axial tomographic images were obtained from the dome of theliver down to the symphysis pubis following both oral and intravenouscontrast administration. Coronal and sagittal reconstructions wereobtained as well. HISTORYThis is a 64-year-old male patient with history of stabbing pain inthe central portion of the epigastrium as well as left upper quadrantpain. FINDINGSComparison is made with the prior examination dated July 30, 2005. There is a minimal degree of atelectatic changes at the left base. Multiple well-defined hypodense nodules are seen scattered throughoutthe liver. These are unchanged from prior examination and most likelyrepresent hepatic cysts. These are unchanged. The spleen is notenlarged. No focal lesion is seen. The pancreas is of homogeneousdensity. No focal lesion is seen. The adrenal glands areunremarkable. There is good corticomedullary differentiation in bothkidneys. Small cysts are seen in both kidneys as well. There is noevidence of hydronephrosis. There is a mild degree of atheroscleroticchanges of the infrarenal abdominal aorta. There is also evidence ofatherosclerotic changes of the right common iliac artery. No aneurysmis seen. There is no evidence of free air or free fluid within theabdomen or pelvis. There is no evidence of retroperitoneal or pelviclymphadenopathy. There is evidence of sigmoid diverticulosis withthickening of the wall of the sigmoid colon. A mild degree ofdiverticulitis should be ruled out. IMPRESSIONMultiple cysts seen throughout the liver. These are unchanged. Thereis evidence of thickening of the wall of the sigmoid colon suggestinga mild degree of diverticulitis. There is no evidence of free fluidat this time. Reported By: FRANKO JULIEN GALLBLADDEROrdered By: Olga quesada Ion Implant Machine Operator on 09-15-2009 GALLBLADDER See Note Normal [facility] Work Phone: Comment on above: Exam Number: [id number] CLINICAL:Right upper quadrant pain. LIMITED ABDOMINAL ULTRASOUND TECHNIQUE:Multiple images of the right upper quadrant are submitted forinterpretation with a technologist worksheet. COMPARISON:CT abdomen dated 07/30/05 FINDINGS:Normal liver size, contour and echogenicity. Multiple hepatic cystsare again identified with the largest measuring up to 2.0 x 1.5 x2.2 cm in the right hepatic lobe. The largest cyst in the leftkidney measures 2.3 x 1.9 x 2.1 cm. Normal gallbladder size and contour, with no wall thickening,filling defects or pericholecystic fluid. Normal caliber of the common bile duct, measuring 3.1 mm. Normalintrahepatic ducts with no intrahepatic biliary ductal dilatation. Normal pancreas without focal or diffuse enlargement, and there areno cysts or calcifications. Normal visualized pancreatic duct. Normal right kidney size, contour, and echogenicity, measuring 10.5cm in length. There is a small cortical cyst in the mid to lower pole of the rightkidney that measures approximately 1.4 x 1.2 x 1.2 cm. Normalintrarenal collecting system with no renal calculi or hydronephrosis. IMPRESSION:Multiple hepatic cysts again identified, measuring up to 2.2 cm andthe right hepatic lobe. No evidence of cholelithiasis or acute cholecystitis. 1.4-cm cortical cyst in the right kidney. Reported By: JENNY DAMON M.D. Amylase ([id number])Ordered By: Payam prieto Ion Implant Machine Operator on 09-13-2009 Amylase [Catalytic activity/Vol] 44 U/L Normal 31-124 [facility] Work Phone: Comment on above: PATIENT NOT FASTINGP ERFORMED BY: [id number] [facility] [id number] C-REACT PROT HIGH SENS(hsCRP ) ([id number])Ordered By: Nutritionist on 09-13-2009 CRP High sensitivity method [Mass/Vol] 2.96 mg/L Normal 0.00-3.00 [facility] Work Phone: Comment on above: Relative Risk for Fu ture Cardiovascular EventLow <1.00Average 1.00 - 3.00High >3.00 PATIENT NOT FASTINGP ERFORMED BY: [facility]Stra[facility] Surgery[address] [place] [address] [id number] CBC WITH MANUAL DIFF ([id number]) Ordered By: Nutritionist on 09-13-2009 Basophils (Bld) [#/Vol] 0.1 {x10E3/uL} Normal 0.0-0.2 [facility] Work Phone: Comment on above: PATIENT NOT FASTINGP ERFORMED BY: [facility] HospitalCareToSaveHoboken University Medical CenterTekhyh9753 [facility] [id number] Information: [id number] Basophils (Bld) [#/Vol] 0.1 10*3/uL Normal 0.0-0.2 [facility]; [facility] Work Phone: Basophils/100 WBC (Bld) 1 % Normal 0-3 [facility] Work Phone: Comment on above: PATIENT NOT FASTINGP ERFORMED BY: iContactHoboken University Medical CenterOdfhhg1957 [facility] [id number] Information: [id number] Eosinophils (Bld) [#/Vol] 0.3 {x10E3/uL} Normal 0.0-0.4 [facility] Work Phone: Comment on above: PATIENT NOT FASTINGP ERFORMED BY: [facility]6370 [facility] [id number] Information: [id number] Eosinophils (Bld) [#/Vol] 0.3 10*3/uL Normal 0.0-0.4 [facility]; [facility] Work Phone: Eosinophils/100 WBC (Bld) 4 % Normal 0-7 [facility] Work Phone: Comment on above: PATIENT NOT FASTINGP ERFORMED BY: DOROTHY MaciasCo Wdzbst6764 [facility] [id number] Information: [id number] Erythrocyte distribution width (RBC) [Ratio] 13.6 % Normal 11.7-15.0 [facility] Work Phone: Comment on above: PATIENT NOT FASTINGP ERFORMED BY: CB [facility] Idmwkh5491 [facility] [id number] Information: [id number] Hematocrit (Bld) [Volume fraction] 44.8 % Normal 36.0-50.0 [facility] Work Phone: Comment on above: PATIENT NOT FASTINGP ERFORMED BY: DOROTHY [employer] Jttbhn3919 [facility] [id number] Information: [id number] Hemoglobin (Bld) [Mass/Vol] 15.6 g/dL Normal 12.5-17.0 [facility] Work Phone: Comment on above: PATIENT NOT FASTINGP ERFORMED BY: DOROTHY [employer] Wkunxm0194 [facility] [id number] Information: [id number] Lymphocytes (Bld) [#/Vol] 1.5 {x10E3/uL} Normal 0.7-4.5 [facility] Work Phone: Comment on above: PATIENT NOT FASTINGP ERFORMED BY: [facility] Wycgmn7783 [facility] [id number] Information: [id number] Lymphocytes (Bld) [#/Vol] 1.5 10*3/uL Normal 0.7-4.5 [facility]; [facility] Work Phone: Lymphocytes/100 WBC (Bld) 19 % Normal 14-46 [facility] Work Phone: Comment on above: PATIENT NOT FASTINGP ERFORMED BY: DOROTHY LabCoHoboken University Medical CenterKwgtnk1223 [facility] [id number] Information: [id number] MCH (RBC) [Entitic mass] 32.3 pg Normal 27.0-34.0 [facility] Work Phone: Comment on above: PATIENT NOT FASTINGP ERFORMED BY: [address] [id number] Information: [id number] MCHC (RBC) [Mass/Vol] 34.8 g/dL Normal 32.0-36.0 [facility] Work Phone: Comment on above: PATIENT NOT FASTINGP ERFORMED BY: [address] [id number] Information: [id number] MCV (RBC) [Entitic vol] 93 fL Normal 80-98 [facility] Work Phone: Comment on above: PATIENT NOT FASTINGP ERFORMED BY: [address] [id number] Information: [id number] Monocytes (Bld) [#/Vol] 0.6 {x10E3/uL} Normal 0.1-1.0 [facility] Work Phone: Comment on above: PATIENT NOT FASTINGP ERFORMED BY: [address] [id number] Information: [id number] Monocytes (Bld) [#/Vol] 0.6 10*3/uL Normal 0.1-1.0 [facility]; [facility] Work Phone: Monocytes/100 WBC (Bld) 7 % Normal 4-13 [facility] Work Phone: Comment on above: PATIENT NOT FASTINGP ERFORMED BY: [place] 7958370 [facility] [id number] Information: [id number] Neutrophils (Bld) [#/Vol] 5.6 {x10E3/uL} Normal 1.8-7.8 [facility] Work Phone: Comment on above: PATIENT NOT FASTINGP ERFORMED BY: DOROTHY Mata6370 [facility] [id number] Information: [id number] Neutrophils (Bld) [#/Vol] 5.6 10*3/uL Normal 1.8-7.8 [facility]; [facility] Work Phone: Neutrophils/100 WBC (Bld) 69 % Normal 40-74 [facility] Work Phone: Comment on above: PATIENT NOT FASTINGP ERFORMED BY: DOROTHY Nicol Wmuwrw3990 [facility] [id number] Information: [id number] Platelets (Bld) [#/Vol] 183 {x10E3/uL} Normal 140-415 [facility] Work Phone: Comment on above: PATIENT NOT FASTINGP ERFORMED BY: DOROTHY Nicol Gkpenq2775 [facility] [id number] Information: [id number] Platelets (Bld) [#/Vol] 183 10*3/uL Normal 140-415 [facility]; [facility] Work Phone: RBC (Bld) [#/Vol] 4.82 {x10E6/uL} Normal 4.10-5.60 [facility] Internal Medicine Work Phone: Comment on above: PATIENT NOT FASTINGP ERFORMED BY: DOROTHY LabStra[facility] Surgery6370 [facility] [id number] Information: [id number] RBC (Bld) [#/Vol] 4.82 10*6/uL Normal 4.10-5.60 [facility] Internal Medicine; [facility] Work Phone: WBC (Bld) [#/Vol] 8.1 {x10E3/uL} Normal 4.0-10.5 [facility] Internal Medicine Work Phone: Comment on above: PATIENT NOT FASTINGP ERFORMED BY: DOROTHY LabElizabeth Ville 8571170 [facility] [place] [id number] Information: [id number] WBC (Bld) [#/Vol] 8.1 10*3/uL Normal 4.0-10.5 [facility]; [facility] Internal Medicine Work Phone: Lipase ([id number])Ordered By: Sy stem Ion Implant Machine Operator on 09-13-2009 Lipase [Catalytic activity/Vol] 46 U/L Normal 0-59 [facility] Work Phone: Comment on above: PATIENT NOT FASTINGP ERFORMED BY: [facility] Cllgfb6028 [address] RoadDublin [place] [id number] METABOLIC PANEL, COMPREHENSI VE ([id number])Ordered By: Nutritionist on 09-13-2009 Albumin [Mass/Vol] 4.4 g/dL Normal 3.6-4.8 [facility] Work Phone: Comment on above: PATIENT NOT FASTINGP ERFORMED BY: CB [facility] Exycvz3645 [address] Roadbl[address] [place] [id number] Albumin/Globulin [Mass ratio] 1.8 {ratio} Normal 1.1-2.5 [facility] Work Phone: Comment on above: PATIENT NOT FASTINGP ERFORMED BY: CB [facility] Hjzekk5517 [address] Roadblin [place] [id number] ALP [Catalytic activity/Vol] 105 [iU]/L Normal 25-160 [facility] Work Phone: Comment on above: PATIENT NOT FASTINGP ERFORMED BY: CB [facility] Cteiou4314 [address] RoadDublin [place] [id number] ALP [Catalytic activity/Vol] 105 U/L Normal 25-160 [facility]; [facility] Work Phone: ALT [Catalytic activity/Vol] 22 [iU]/L Normal 0-55 [facility] Work Phone: Comment on above: PATIENT NOT FASTINGP ERFORMED BY: [facility] Vdynyp9705 [address] RoadDublin [place] [id number] ALT [Catalytic activity/Vol] 22 U/L Normal 0-55 [facility]; [facility] Work Phone: AST [Catalytic activity/Vol] 21 [iU]/L Normal 0-40 [facility] Work Phone: Comment on above: PATIENT NOT FASTINGP ERFORMED BY: DOROTHY [facility] Qypxgp2323 [address] RoadDublin [place] [id number] AST [Catalytic activity/Vol] 21 U/L Normal 0-40 [facility]; [facility] Work Phone: Bilirubin [Mass/Vol] 0.6 mg/dL Normal 0.1-1.2 Comp rehensive Internal Medicine Work Phone: Comment on above: PATIENT NOT FASTINGP ERFORMED BY: [facility] Ohidul4016 Bishop RoadUnc Medical Centerin [place] [id number] Calcium [Mass/Vol] 8.9 mg/dL Normal 8.6-10.2 [facility] Work Phone: Comment on above: PATIENT NOT FASTINGP ERFORMED BY: [facility] Qynhax[address] [facility]in [place] [id number] Chloride [Moles/Vol] 104 mmol/L Normal 97-108 [facility] Centerensive [facility] Work Phone: Comment on above: PATIENT NOT FASTINGP ERFORMED BY: [facility] Ltqufo6655 [address] [facility]in [place] [id number] CO2 [Moles/Vol] 25 mmol/L Normal 20-32 [facility] Work Phone: Comment on above: PATIENT NOT FASTINGP ERFORMED BY: [facility] Mvuvje2365 [address] [facility]in [place] [id number] Creatinine [Mass/Vol] 1.01 mg/dL Normal 0.76-1.27 [facility] Internal Medicine Work Phone: Comment on above: PATIENT NOT FASTINGP ERFORMED BY: [facility] Gailcb3307 [address] [facility] [place] [id number] GFR/1.73 sq M predicted among blacks MDRD (S/P/Bld) [Vol rate/Area] mL/min/{1.73_m2} Normal [facility] Work Phone: Comment on above: Note: Persistent red uction for 3 months or more in an eGFR<60 mL/min/1.73 m2 defines CKD. Patients with eGFR values>/=60 mL/min/1.73 m2 may also have CKD if evidence of persistentproteinuria is present. Additional information may be found [email or web address]. PATIENT NOT FASTINGP ERFORMED BY: CB [facility] Qpxmzo8387 [address] RoadDublin [place] [id number] GFR/1.73 sq M.predicted MDRD (S/P/Bld) [Vol rate/Area] mL/min/{1.73_m2} Normal [facility] Work Phone: Comment on above: PATIENT NOT FASTINGP ERFORMED BY: CB [facility] Ocjwbm6718 [address] RoadDublin [place] [id number] GFR/1.73 sq M.predicted MDRD vol rate/area mL/min/{1.73_m2} Normal [facility] Work Phone: Comment on above: PATIENT NOT FASTINGP ERFORMED BY: CB [facility] Xqphvu6959 [address] RoadDublin [place] [id number] Globulin (S) [Mass/Vol] 2.4 g/dL Normal 1.5-4.5 [facility] Internal Medicine Work Phone: Comment on above: PATIENT NOT FASTINGP ERFORMED BY: CB [facility] Jiiudx9118 [address] RoadDublin [place] [id number] Glucose [Mass/Vol] 75 mg/dL Normal 65-99 [facility] Internal [facility] Work Phone: Comment on above: PATIENT NOT FASTINGP ERFORMED BY: [facility] Ybwqkd3005 [address] RoadDublin [place] [id number] Potassium [Moles/Vol] 4.4 mmol/L Normal 3.5-5.2 [facility] Work Phone: Comment on above: PATIENT NOT FASTINGP ERFORMED BY: [facility] Jlcpyw0861 [address] RoadDublin [place] [id number] Protein [Mass/Vol] 6.8 g/dL Normal 6.0-8.5 [facility] Work Phone: Comment on above: PATIENT NOT FASTINGP ERFORMED BY: DOROTHY LabStra[facility]6370 [facility] [id number] Sodium [Moles/Vol] 142 mmol/L Normal 135-145 [facility] Work Phone: Comment on above: PATIENT NOT FASTINGP ERFORMED BY: LabStra[facility]6370 [facility] [id number] Urea nitrogen [Mass/Vol] 18 mg/dL Normal 5-26 [facility] Work Phone: Comment on above: PATIENT NOT FASTINGP ERFORMED BY: LabStra[facility]6370 [facility] [id number] Urea nitrogen/Creatinine [Mass ratio] 18 mg/mg Normal 8-27 [facility] Work Phone: Comment on above: PATIENT NOT FASTINGP ERFORMED BY: LabStra[facility]6370 [facility] [id number] Anaerobic and Aerobic Cultur eOrdered By: Nutritionist on 08-04-2009 Bacteria identified Aer cx Nom (Unsp spec) Final report Normal [facility] Work Phone: Comment on above: Clinical Information : SRC:FM LEFT FOREARM PERFORMED BY: LabStraith [facility] Surgery6370 [facility] [id number] Bacteria identified Anaer cx Nom (Unsp spec) Final report Normal [facility] Work Phone: Comment on above: Clinical Information : SRC:FM LEFT FOREARM PERFORMED BY: [facility]Ell[facility] Zkxrwx2586 [facility] [id number] Bacteria identified Cx Nom (Unsp spec) MRSA Normal [facility] Work Phone: Comment on above: Methicillin - resist ant Staphylococcus aureusHeavy growthSusceptibility or resistance of staphylococci to oxacillin predictssusceptibility or resistance to (a) other xkcp-fcbxyvkim-feuzcnqlgubdgtvum such as cloxacillin and dicloxacillin, (b) combinationsof a penicillin and a beta-lactamase inhibitor, and(c) anti-staphylococcal cephalosporins. Routine testing of otherpenicillins, beta-lactam/beta-lactamase inhibitor combinations,cephems, and carbapenems is not advised by the CLSI Standards(M313-K07, 2005). Clinical Information : SRC:FM LEFT FOREARM PERFORMED BY: [employer] Rdincw4483 [place] [id number] Bacteria identified Cx Nom (Unsp spec) [id number] Normal [facility] Work Phone: Comment on above: No anaerobic growth in 72 hours. Clinical Information : SRC:FM LEFT FOREARM PERFORMED BY: [employer] Tcuyqb[address]bl[place] [id number] Bacteria identified Cx Nom (Unsp spec) Enterobacter cloacae Normal Comprehe nsive Internal Medicine Work Phone: Comment on above: Heavy growth Clinical Information : SRC:FM LEFT FOREARM PERFORMED BY: [employer]70 adRiseFirstHealth [facility] [id number] Other Antibiotic [Susc] MIHEAD Normal [facility] Work Phone: Comment on above: S = Susceptibl e; I = Intermediate; R = Resistant P = Positive; N = Negative MICS are expressed in micrograms per mL Antibiotic RSLT#1 RSLT#2 RSLT#3 RSLT#4Amoxicillin/Clavulanic Acid RAmpicillin RCefepime SCeftriaxone SCefuroxime SCephalothin RCiprofloxacin S SClindamycin SErythromycin RGentamicin S SImipenem SLevofloxacin S SLinezolid SOxacillin RPenicillin RQuinupristin/Dalfopristin STetracycline S STobramycin STrimethoprim/Sulfa S SVancomycin S Clinical Information : SRC:FM LEFT FOREARM PERFORMED BY: [employer]70 [facility]iseFirst[facility] [place] [id number] CHEST WITHOUT CONTRASTOrdere d By: Nutritionist on 06-14-2009 CHEST WITHOUT CONTRAST See Note Normal [facility] Work Phone: Comment on above: Exam Number: [id number] CLINICAL:Follow-up lung nodule. CT CHEST WITHOUT CONTRAST COMPARISON:Chest CT dated February 03, 2009 TECHNIQUE:High resolution transaxial imaging was performed without the administration of intravenous contrast material. FINDINGS: There is a stable 9-mm low attenuation lesion in the inferior right thyroid lobe. There has been no significant interval change in atelectasis and/or scarring in the left lower lobe, lingula and [...] lymphadenopathy. Normal cardiac size without demonstrated pericardial fluid [...] supraclavicular lymph nodes. Innumerable cysts are identified throughout the liver which appear unchanged, although they were inadvertently omitted from the prior report. These measure up to 2.4 cm in the right hepatic lobe (series 2 image 72). Normal visualized spleen, gallbladder, pancreas and adrenal glands. Mild degenerative changes of the spine are stable. Normal visualized chest wall structures. IMPRESSION:Stable 4-mm nodular density in the right lower lobe. No new parenchymal nodules. Stable bullous changes in the lungs with atelectasis and/or scarring at the lung bases. Stable 9-mm right thyroid nodule. Innumerable hepatic cysts, unchanged. These were inadvertently omitted from the previous report. Reported By: JENNY DAMON M.D. Exam Number: [id number] CLINICAL:Goiter. ULTRASOUND THYROID COMPARISON:Thyroid ultrasound dated 02/24/09 FINDINGS:The right thyroid lobe is prominent in size measuring 5.8 x 1.8 x 1.9 cm. A hypoechoic solid nodule is again identified in the lower pole of the right thyroid lobe that measures 1.7 x 0.8 x 1.6 cm. This is not significantly changed compared to the previous exam. Normal thyroid isthmus. There is no perithyroidal pathology. IMPRESSION:Bilateral thyroid nodules, not significantly changed. Reported By: JENNY DAMON M.D. THYROIDOrdered By: System Az estefany on 02-24-2009 THYROID See Note Normal [facility] Work Phone: Comment on above: Exam Number: [id number] CLINICAL:63-year-old male follow-up nodules seen on CT ULTRASOUND THYROID COMPARISON:CT from 02/03/2009. FINDINGS:Normal size, contour and echotexture of the right lobe of the thyroid gland, measuring 5.3 x 2 .0 x [...] as malignant entities. Correlation with clinical medicine thyroid study recommended. Reported By: RUBÉN OREILLY M.D. CHEST W/WO CONTRASTOrdered B y: Nutritionist on 02-03-2009 CHEST W/WO CONTRAST See Note Normal Compr ensive Internal Medicine Work Phone: Comment on above: Exam Number: [id number] CLINICAL:Cough. Abnormal chest x-ray. CT CHEST WITH AND WITHOUT CONTRAST COMPARISON:Chest x-ray dated January 31, 2009 TECHNIQUE:High resolution transaxial imaging was performed without and with following the intravenous administration of 100 ml of Isovue 300 contrast material. Coronal and sagittal images were reconstructed. FINDINGS: There is a 1 cm low-attenuation lesion in the inferior right thyroid lobe (series 4, image 7). Scattered bullous changes are noted within the lungs. There is subsegmental atelectasis in the left lower lobe. Mild linear scarring is identified in the lingula. There is a 4 mm subpleural nodular density in the right lower lobe (series 4 image 70). No other parenchymal nodules are seen. There is no focal consolidation.. Normal pleura without pleural thickening, a mass lesion or calcifications. There are no pleural effusions. Normal mediastinum and pulmonary shayan without lymphadenopathy. Normal cardiac size without demonstrated pericardial fluid [...] lower lobe. No parenchymal infiltrate. 4 mm subpleural nodular density in the right lower lobe. This is nonspecific and may be related to an infectious or inflammatory process. No other parenchymal nodules are seen. Scattered bullous changes throughout the lungs. Bilateral renal cysts. 1.5-cm low-attenuation lesion in the upper pole of the left kidney which is not a simple cyst. Renal ultrasound may be useful for further evaluation, if clinically warranted. 1 cm low-attenuation nodule in the right thyroid lobe. Reported By: JENNY DAMON M.D. CHEST, PA AND LATERALOrdered By: Nutritionist on 01-31-2009 CHEST, PA AND LATERAL See Note Normal [facility] Work Phone: Comment on above: Exam Number: [id number] TWO VIEWS OF THE CHEST HISTORYThe patient is a 63-year-old man with a history of cough x3 weeks. There is a poor degree of inspiration. This is associated withcrowding of lung markings and slight atelectasis located posteriorly. No acute infiltrate, area of consolidation, pleural effusion orvascular congestion is identified. There is a rectangular densityprojecting over the right 6th anterior rib. This is most likelyrelated to calcification in costal cartilage. On the left, there is a6-mm density identified between the 5th and 6th anterior ribs. Thismay be a nipple shadow. PA view with nipple markers is recommended. IMPRESSION1. There is a small density in the left lung base which may representa nipple shadow. PA view with nipple markers is recommended.2. A triangular density is seen at the level of the right 6thanterior rib. This is likely to represent costal calcification. 3. If symptoms persist, a CT could be considered. Reported By: YUKI VEGA M.D. Rapid Flu (46068 x 2)Ordered By: Lolita Stephenson on 07-13-2008 FLUAV Ag IA Ql (Throat) Negative Normal [facility] Work Phone: Comment on above: negative FLUAV Ag IA Ql (Throat) Negative Normal [facility]; [facility] Work Phone: CBCOrdered By: System Manage r on 10-11-2006 Erythrocyte distribution width (RBC) [Ratio] 13.4 % Normal 11.6-14.6 [facility] Work Phone: Hematocrit (Bld) [Volume fraction] 43.5 % Normal 40-54 [facility] Internal Medicine Work Phone: Hemoglobin (Bld) [Mass/Vol] 14.9 g/dL Normal 14.0-18.0 [facility] Internal Medicine Work Phone: MCH (RBC) [Entitic mass] 31.1 pg Normal 27.0-32.0 [facility] Work Phone: MCHC (RBC) [Mass/Vol] 34.3 g/dL Normal 32-36 [facility] Work Phone: MCV (RBC) [Entitic vol] 90.7 fL Normal 80-94 [facility] Internal Medicine Work Phone: Platelets (Bld) [#/Vol] 232 10*3/uL Normal 150-450 [facility] Internal Medicine Work Phone: RBC (Bld) [#/Vol] 4.80 {M/mm3} Normal 4.6-6.2 Compr [facility] Internal Medicine Work Phone: WBC (Bld) [#/Vol] 5.3 10*3/uL Normal 4.4-11.0 [facility] Internal [facility] Work Phone: COMP METABOLICOrdered By: Maury stem Ion Implant Machine Operator on 10-11-2006 Albumin [Mass/Vol] 3.8 g/dL Normal 3.4-5.0 [facility] Work Phone: Albumin/Globulin [Mass ratio] 1.2 {RATIO} Normal 0.9-2.4 [facility] Work Phone: ALP [Catalytic activity/Vol] 92 U/L Normal 50-136 [facility] Work Phone: ALT [Catalytic activity/Vol] 37 [iU]/L Normal 30-65 [facility] Work Phone: Anion gap [Moles/Vol] 9 mmol/L Normal 5-15 [facility] Internal Medicine Work Phone: AST [Catalytic activity/Vol] 22 U/L Normal 15-37 [facility] Internal Medicine Work Phone: Bilirubin [Mass/Vol] 0.56 mg/dL Normal 0.00-1.00 Comp rehensive Internal Medicine Work Phone: Calcium [Mass/Vol] 8.2 mg/dL Abnormal 8.5-10.1 [facility] Work Phone: Chloride [Moles/Vol] 105 mmol/L Normal 98-107 Comp rehensive Internal Medicine Work Phone: CO2 [Moles/Vol] 26.9 mmol/L Normal 22.0-29.0 [facility]pre[facility]idd[facility] Work Phone: Creatinine [Mass/Vol] 1.0 mg/dL Normal 0.8-1.3 [facility] Internal Medicine Work Phone: Globulin (S) [Mass/Vol] 3.1 g/dL Normal 2.3-3.5 [facility] Internal Medicine Work Phone: Glucose [Mass/Vol] 81 mg/dL Normal 70-110 [facility] Work Phone: Potassium [Moles/Vol] 4.0 mmol/L Normal 3.5-5.1 [facility] Work Phone: Protein [Mass/Vol] 6.9 g/dL Normal 6.4-8.2 [facility] Work Phone: Sodium [Moles/Vol] 141 mmol/L Normal 136-145 [facility] Work Phone: Urea nitrogen [Mass/Vol] 21 mg/dL Abnormal 7-18 [facility] Work Phone: Urea nitrogen/Creatinine [Mass ratio] 21.0 {RATIO} Abnormal 10-20 [facility] Work Phone: PFLIPOrdered By: Crista worrell on 10-11-2006 Cholesterol [Mass/Vol] 166 mg/dL Normal [facility] Work Phone: Comment on above: <200 mg/dL Desirable 200-240 mg/dL Borderline >240 mg/dL High Risk Cholesterol in HDL [Mass/Vol] 36 mg/dL Normal [facility] Work Phone: Comment on above: Reference Range HDL <40 mg/dL Low HDL Cholesterol HDL >or= 60 mg/dL High HDL Cholesterol Cholesterol in LDL [Mass/Vol] 114 mg/dL Normal 0-130 [facility] Work Phone: Cholesterol in VLDL [Mass/Vol] 16 mg/dL Normal 5-40 [facility] Work Phone: Triglyceride [Mass/Vol] 79 mg/dL Normal [facility] Work Phone: Comment on above: Serum Triglycerides Reference Interval Normal <150 mg/dL Borderline high 150 - 199 mg/dL High 200 - 499 mg/dL Very High > or = 500 mg/dL ROUTINE UAOrdered By: Nutritionist on 10-11-2006 Clarity (U) CLEAR Normal [facility] Work Phone: Color (U) YELLOW Normal [facility] Work Phone: Glucose mass conc SeeNote Normal Compreh ensive Internal Medicine Work Phone: Comment on above: Result: NEGATIVE Protein mass conc SeeNote Normal Compreh ensive Internal Medicine Work Phone: Comment on above: Result: NEGATIVE ROUTINE UA SeeNote Normal [facility] Work Phone: Comment on above: Result: NEGATIVE ROUTINE UA >=1.030 Normal 1.002-1.03 0 [facility] Work Phone: ROUTINE UA 1+ Abnormal [facility] Work Phone: ROUTINE UA 5.0 1 Normal 5.0-8.0 [facility] Work Phone: ROUTINE UA 0.2 EU/dl Normal 0.2 - 1.0 [facility] Work Phone: TSHOrdered By: System Manage r on 10-11-2006 TSH Qn 1.04 {uIU/mL} Normal 0.34-4.82 [facility] Work Phone: Vital Signs Date Time Vital Sign Value Performing Clinician Facility 06-08-2025 07:12-0400 Body mass index (BMI) [Ratio] 24.1 kg/m2 Dr. Catherine Garcia DO Work Phone: [facility] 06-08-2025 07:12-0400 Body weight 78.[address] Catherine Garcia DO Work Phone: [facility] 06-08-2025 07:12-0400 Diastolic blood pressure 81 mm[Hg] Dr. Catherine Garcia DO Work Phone: [facility] 06-08-2025 07:12-0400 Heart rate 61 /min Dr. Catherine Garcia DO Work Phone: [facility] 06-08-2025 07:12-0400 SaO2% (BldA) [Mass fraction] 96 % Dr. Catherine Garcia DO Work Phone: [facility] 06-08-2025 07:12-0400 Systolic blood pressure 133 mm[Hg] Dr. Catherine Garcia DO Work Phone: [facility] 11-18-2023 09:51-0400 Diastolic Blood Pressure Non-Invasive 84 mm[Hg] DR SAMMY CASTRO MD [facility] 11-18-2023 09:51-0400 Heart rate 73 /min DR SAMMY CASTRO MD [facility] 11-18-2023 09:51-0400 Respiratory rate 17 /min DR SAMMY CASTRO MD [facility] 11-18-2023 09:51-0400 Systolic Blood Pressure Non-Invasive 148 mm[Hg] DR SAMMY CASTRO MD [facility] 11-18-2023 09:46-0400 Diastolic Blood Pressure Non-Invasive 77 mm[Hg] DR SAMMY CASTRO MD [facility] 11-18-2023 09:46-0400 Heart rate 69 /min DR SAMMY CASTRO MD [facility] 11-18-2023 09:46-0400 Respiratory rate 17 /min DR SAMMY CASTRO MD [facility] 11-18-2023 09:46-0400 Systolic Blood Pressure Non-Invasive 141 mm[Hg] DR SAMMY CASTRO MD [facility] 11-18-2023 09:40-0400 Diastolic Blood Pressure Non-Invasive 76 mm[Hg] DR SAMMY CASTRO MD [facility] 11-18-2023 09:40-0400 Heart rate 71 /min DR SAMMY CASTRO MD [facility] 11-18-2023 09:40-0400 Respiratory rate 14 /min DR SAMMY CASTRO MD [facility] 11-18-2023 09:40-0400 Systolic Blood Pressure Non-Invasive 124 mm[Hg] DR SAMMY CASTRO MD [facility] 11-18-2023 09:25-0400 Respiratory Rate - Anes 11 br/min DR SAMMY CASTRO MD [facility] 11-18-2023 09:20-0400 Respiratory Rate - Anes 11 br/min DR SAMMY CASTRO MD [facility] 11-18-2023 09:15-0400 Respiratory Rate - Anes 14 br/min DR SAMMY CASTRO MD [facility] 11-18-2023 07:45-0400 Blood Pressure Cuff Size DR SAMMY CASTRO MD [facility] 11-18-2023 07:45-[address] SAMMY CASTRO MD [facility] 11-18-2023 07:45-[address] SAMMY CASTRO MD [facility] 11-18-2023 07:45-0400 Body height [address] SAMMY CASTRO MD [facility] 11-18-2023 07:45-0400 Body temperature 98.24 [degF] DR SAMMY CASTRO MD [facility] 11-18-2023 07:45-0400 Body weight 86.[address] SAMMY CASTRO MD [facility] 11-18-2023 07:45-0400 Body weight 26.67 kg/m2 DR SAMMY CASTRO MD [facility] 11-18-2023 07:45-0400 Heart rate 89 /min DR SAMMY CASTRO MD [facility] 06-06-2023 08:41-0400 Body height 182.[address] Catherine Garcia Work Phone: [facility] 06-06-2023 08:39-0400 Body mass index (BMI) [Ratio] 25.2 kg/m2 Dr. Catherine Garcia Work Phone: [facility] 06-06-2023 08:39-0400 Body weight 84.[address] Catherine Garcia Work Phone: [facility] 06-06-2023 08:39-0400 Diastolic blood pressure 79 mm[Hg] Dr. Catherine Garcia Work Phone: [facility] 06-06-2023 08:39-0400 Heart rate 68 /min Dr. Catherine Garcia Work Phone: [facility] 06-06-2023 08:39-0400 Respiratory rate 18 /min Dr. Catherine Garcia Work Phone: [facility] 06-06-2023 08:39-0400 SaO2% (BldA) [Mass fraction] 96 % Dr. Catherine Garcia Work Phone: [facility] 06-06-2023 08:39-0400 Systolic blood pressure 137 mm[Hg] Dr. Catherine Garcia Work Phone: [facility] 11-15-2022 09:38-0400 Body height 181.61 cm [facility]; [facility] Work Phone: 11-15-2022 09:38-0400 Body mass index (BMI) [Ratio] 26.7 kg/m2 [facility]; [facility] Work Phone: 11-15-2022 09:38-0400 Body surface area Derived from formula 2.09 m2 [facility]; [facility] Work Phone: 11-15-2022 09:38-0400 Body temperature 96.9 [degF] [facility]; [facility] Work Phone: 11-15-2022 09:38-0400 Body weight 88.06 kg [facility]; [facility] Work Phone: 11-15-2022 09:38-0400 Diastolic blood pressure 82 mm[Hg] [facility]; [facility] Work Phone: 11-15-2022 09:38-0400 Heart rate 76 /min [facility]; [facility] Work Phone: 11-15-2022 09:38-0400 Respiratory rate 16 /min [facility]; [facility] Work Phone: 11-15-2022 09:38-0400 SaO2% (BldA) [Mass fraction] 96 % [facility]; [facility] Work Phone: 11-15-2022 09:38-0400 Systolic blood pressure 120 mm[Hg] [facility]; [facility] Work Phone: 07-30-2022 10:16-0500 Body temperature 98 [degF] Catherine Jose DO Work Phone: [facility]; [facility] Work Phone: 07-30-2022 10:16-0500 Diastolic blood pressure 80 mm[Hg] Catherine Jose DO Work Phone: [facility]; [facility] Work Phone: 07-30-2022 10:16-0500 Heart rate 74 /min Catherine Jose DO Work Phone: [facility]; [facility] Work Phone: 07-30-2022 10:16-0500 Systolic blood pressure 124 mm[Hg] Catherine Jose DO Work Phone: [facility]; [facility] Work Phone: 05-15-2022 09:32-0400 Body height 181.61 cm Barbara Tnaner MA [facility]; [facility] Work Phone: 05-15-2022 09:32-0400 Body mass index (BMI) [Ratio] 27.09 kg/m2 Barbara Tanner MA [facility]; [facility] Work Phone: 05-15-2022 09:32-0400 Body surface area Derived from formula 2.11 m2 Barbara Tanner MA [facility]; [facility] Work Phone: 05-15-2022 09:32-0400 Body temperature 97.5 [degF] Barbara Tanner MA [facility]; [facility] Work Phone: 05-15-2022 09:32-0400 Body weight 89.36 kg Barbara Tanner MA [facility]; [facility] Work Phone: 05-15-2022 09:32-0400 Diastolic blood pressure 82 mm[Hg] Barbara Tanner MA [facility]; [facility] Work Phone: 05-15-2022 09:32-0400 Heart rate 74 /min Barbara Tanner MA [facility]; [facility] Work Phone: 05-15-2022 09:32-0400 Respiratory rate 16 /min Barbara Tanner MA [facility]; [facility] Work Phone: 05-15-2022 09:32-0400 SaO2% (BldA) [Mass fraction] 95 % Barbara Tanner MA [facility]; [facility] Work Phone: 05-15-2022 09:32-0400 Systolic blood pressure 130 mm[Hg] Barbara Tanner MA [facility]; [facility] Work Phone: 01-09-2022 13:03-0400 Body height 182.[address] Catherine Garcia Work Phone: [facility] Work Phone: 01-09-2022 13:03-0400 Body mass index (BMI) [Ratio] 26.6 kg/m2 Dr. Catherine Garcia Work Phone: [facility] Work Phone: 01-09-2022 13:03-0400 Body weight 88.[address] Catherine Garcia Work Phone: [facility] Work Phone: 01-09-2022 13:03-0400 Diastolic blood pressure 85 mm[Hg] Dr. Catherine Garcia Work Phone: [facility] Work Phone: 01-09-2022 13:03-0400 Heart rate 69 /min Dr. Cathernie Garcia Work Phone: [facility] Work Phone: 01-09-2022 13:03-0400 Respiratory rate 16 /min Dr. Catherine Garcia Work Phone: [facility] Work Phone: 01-09-2022 13:03-0400 Systolic blood pressure 142 mm[Hg] Dr. Catherine Garcia Work Phone: [facility] Work Phone: 12-28-2021 07:14-0400 Body height 181.61 cm Tarah Calzada LPN [facility]; [facility] Work Phone: 12-28-2021 07:14-0400 Body mass index (BMI) [Ratio] 27.09 kg/m2 Tarah Calzada LPN [facility]; [facility] Work Phone: 12-28-2021 07:14-0400 Body surface area Derived from formula 2.11 m2 Tarah Calzada LPN [facility]; [facility] Work Phone: 12-28-2021 07:14-0400 Body temperature 97.1 [degF] Tarah Calzada LPN [facility]; [facility] Work Phone: 12-28-2021 07:14-0400 Body weight 89.36 kg Tarah Calzada LPN [facility]; [facility] Work Phone: 12-28-2021 07:14-0400 Diastolic blood pressure 78 mm[Hg] Tarah Calzada LPN [facility]; [facility] Work Phone: 12-28-2021 07:14-0400 Heart rate 81 /min Tarah Calzada LPN [facility]; [facility] Work Phone: 12-28-2021 07:14-0400 Respiratory rate 16 /min Tarah Calzada LPN [facility]; [facility] Work Phone: 12-28-2021 07:140400 SaO2% (BldA) [Mass fraction] 98 % Tarah Calzada LPN [facility]; [facility] Work Phone: 12-28-2021 07:14-0400 Systolic blood pressure 142 mm[Hg] Tarah Calzada LPN [facility]; [facility] Work Phone: 11-15-2021 09:18-0400 Body height 181.61 cm Florentino Sanchez LPN [facility]; [facility] Work Phone: 11-15-2021 09:18-0400 Body mass index (BMI) [Ratio] 26.82 kg/m2 Florentino Sanchez LPN [facility]; [facility] Work Phone: 11-15-2021 09:18-0400 Body surface area Derived from formula 2.1 m2 Florentino Sanchez LPN [facility]; [facility] Work Phone: 11-15-2021 09:18-0400 Body temperature 97.6 [degF] Florentino Sanchez LPN [facility]; [facility] Work Phone: 11-15-2021 09:18-0400 Body weight 88.46 kg Florentino Sanchez LPN [facility]; [facility] Work Phone: 11-15-2021 09:18-0400 Diastolic blood pressure 80 mm[Hg] Florentino Sanchez LPN [facility]; [facility] Work Phone: 11-15-2021 09:18-0400 Heart rate 74 /min Florentino Sanchez LPN [facility]; [facility] Work Phone: 11-15-2021 09:18-0400 Respiratory rate 16 /min Florentino Sanchez LPN [facility]; [facility] Work Phone: 11-15-2021 09:18-0400 SaO2% (BldA) [Mass fraction] 96 % Florentino Sanchez LPN [facility]; [facility] Work Phone: 11-15-2021 09:18-0400 Systolic blood pressure 110 mm[Hg] Florentino Sanchez LPN [facility]; [facility] Work Phone: 07-11-2021 11:15-0500 Body height 181.61 cm Tarah Calzada LPN [facility]; [facility] Work Phone: 07-11-2021 11:15-0500 Body mass index (BMI) [Ratio] 26.82 kg/m2 Tarah Calzada LPN [facility]; [facility] Work Phone: 07-11-2021 11:15-0500 Body surface area Derived from formula 2.1 m2 Tarah Calzada LPN [facility]; [facility] Work Phone: 07-11-2021 11:15-0500 Body temperature 97.1 [degF] Tarah Calzada LPN [facility]; [facility] Work Phone: 07-11-2021 11:15-0500 Body weight 88.46 kg Tarah Calzada LPN [facility]; [facility] Work Phone: 07-11-2021 11:15-0500 Diastolic blood pressure 84 mm[Hg] Tarah Calzada LPN [facility]; [facility] Work Phone: 07-11-2021 11:15-0500 Heart rate 77 /min Tarah Calzada LPN [facility]; [facility] Work Phone: 07-11-2021 11:15-0500 Respiratory rate 16 /min Tarah Calzada BRUNILDA [facility]; [facility] Work Phone: 07-11-2021 11:15-0500 SaO2% (BldA) [Mass fraction] 97 % Tarah Calzada BRUNILDA [facility]; [facility] Work Phone: 07-11-2021 11:15-0500 Systolic blood pressure 138 mm[Hg] Tarahmame Calzada BRUNILDA [facility]; [facility] Work Phone: 07-03-2021 13:59-0500 Body height 181.61 cm Catherine Jose DO Work Phone: [facility]; [facility] Work Phone: 07-03-2021 13:59-0500 Body mass index (BMI) [Ratio] 26.82 kg/m2 Catherine Jose DO Work Phone: [facility]; [facility] Work Phone: 07-03-2021 13:59-0500 Body surface area Derived from formula 2.1 m2 Catherine Jose DO Work Phone: [facility]; [facility] Work Phone: 07-03-2021 13:59-0500 Body temperature 96.9 [degF] Catherine Jose DO Work Phone: [facility]; [facility] Work Phone: 07-03-2021 13:59-0500 Body weight 88.46 kg Catherine Jose DO Work Phone: [facility]; [facility] Work Phone: 07-03-2021 13:59-0500 Diastolic blood pressure 78 mm[Hg] Catherine Jose DO Work Phone: [facility]; [facility] Work Phone: 07-03-2021 13:59-0500 Heart rate 76 /min Catherine Jose DO Work Phone: [facility]; [facility] Work Phone: 07-03-2021 13:59-0500 Respiratory rate 16 /min Catherine Jose DO Work Phone: [facility]; [facility] Work Phone: 07-03-2021 13:59-0500 SaO2% (BldA) [Mass fraction] 95 % Catherine Jose DO Work Phone: [facility]; [facility] Work Phone: 07-03-2021 13:59-0500 Systolic blood pressure 128 mm[Hg] Catherine Jose DO Work Phone: [facility]; [facility] Work Phone: 12-15-2020 07:12-0400 Body height 181.61 cm Keke Mike [facility]; [facility] Work Phone: 12-15-2020 07:12-0400 Body mass index (BMI) [Ratio] 26.82 kg/m2 Keke Mike [facility]; [facility] Work Phone: 12-15-2020 07:12-0400 Body surface area Derived from formula 2.1 m2 Keke Mike [facility]; [facility] Work Phone: 12-15-2020 07:12-0400 Body temperature 97.1 [degF] Keke Mike [facility]; [facility] Work Phone: 12-15-2020 07:12-0400 Body weight 88.46 kg Keke Mike [facility]; [facility] Work Phone: 12-15-2020 07:12-0400 Diastolic blood pressure 80 mm[Hg] Keke Videsius [facility]; [facility] Work Phone: 12-15-2020 07:12-0400 Heart rate 72 /min Keke Mike [facility]; [facility] Work Phone: 12-15-2020 07:12-0400 Respiratory rate 16 /min Keke Mike [facility]; [facility] Work Phone: 12-15-2020 07:12-0400 SaO2% (BldA) [Mass fraction] 97 % Keke Mike [facility]; [facility] Work Phone: 12-15-2020 07:12-0400 Systolic blood pressure 120 mm[Hg] Keke Mike [facility]; [facility] Work Phone: 08-03-2020 08:21-0500 BMI (Body Mass Index) 26.13 kg/m2 [facility]; [facility] Work Phone: 08-03-2020 08:21-0500 Body weight 86.19 kg [facility]; [facility] Work Phone: 08-03-2020 08:21-0500 BSA (Body Surface Area) 2.07 m2 [facility]; [facility] Work Phone: 08-03-2020 08:21-0500 Height 181.61 cm [facility]; [facility] Work Phone: 06-24-2020 11:19-0400 BMI (Body Mass Index) 26.13 kg/m2 Keke Mike [facility] Work Phone: 06-24-2020 11:19-0400 Body Temperature 97.1 [degF] Keke Mike [facility] Work Phone: Comment on above: Method: Infrared 06-24-2020 11:19-0400 Body weight 86.19 kg Keke Mike [facility] Work Phone: 06-24-2020 11:19-0400 BP Diastolic 74 mm[Hg] Keke Mike [facility] Work Phone: Comment on above: Patient Position: Sitting; Cuff Location : Left Arm; Cuff Size: Standard 06-24-2020 11:19-0400 BP Systolic 118 mm[Hg] Keke Mike [facility] Work Phone: Comment on above: Patient Position: Sitting; Cuff Location : Left Arm; Cuff Size: Standard 06-24-2020 11:19-0400 BSA (Body Surface Area) 2.07 m2 Keke Mike [facility] Work Phone: 06-24-2020 11:19-0400 Height 181.61 cm Keke Mike [facility] Work Phone: 06-24-2020 11:19-0400 Pulse (Heart Rate) 69 /min Keke Mike [facility] Work Phone: Comment on above: Pattern: Regular 06-24-2020 11:19-0400 Pulse Oximetry 95 % Catherine Garcia [facility] Work Phone: Comment on above: Room air 06-24-2020 11:19-0400 Respiratory Rate 16 /min Keke Mike [facility] Work Phone: Comment on above: Pattern: Unlabored 06-24-2020 11:19-0400 SaO2% (BldA) [Mass fraction] 95 % Keke Mike [facility]; [facility] Work Phone: 07-14-2019 11:43-0500 BMI (Body Mass Index) 26.68 kg/m2 Florentino Sanchez LPN [facility] Work Phone: 07-14-2019 11:43-0500 Body Temperature 97.8 [degF] Florentino Sanchez LPN [facility] Work Phone: Comment on above: Method: Temporal 07-14-2019 11:43-0500 Body weight 88 kg Florentino Sanchez LPN [facility] Work Phone: 07-14-2019 11:43-0500 BP Diastolic 70 mm[Hg] Florentino Sanchez LPN [facility] Work Phone: Comment on above: Patient Position: Sitting; Cuff Location : Left Arm; Cuff Size: Standard 07-14-2019 11:43-0500 BP Systolic 118 mm[Hg] Florentino Sanchez LPN [facility] Work Phone: Comment on above: Patient Position: Sitting; Cuff Location : Left Arm; Cuff Size: Standard 07-14-2019 11:43-0500 BSA (Body Surface Area) 2.09 m2 Florentino Sanchez LPN [facility] Work Phone: 07-14-2019 11:43-0500 Height 181.61 cm Florentino Sanchez LPN [facility] Work Phone: 07-14-2019 11:43-0500 Pulse (Heart Rate) 78 /min Florentino Sanchez LPN [facility] Work Phone: Comment on above: Pattern: Regular 07-14-2019 11:43-0500 Pulse Oximetry 95 % Catherine Garcia [facility] Work Phone: Comment on above: Room air 07-14-2019 11:43-0500 Respiratory Rate 16 /min Florentino Sanchez LPN [facility] Work Phone: Comment on above: Pattern: Unlabored 07-14-2019 11:43-0500 SaO2% (BldA) [Mass fraction] 95 % Florentino Sanchez LPN [facility]; [facility] Work Phone: 07-02-2019 11:30-0500 BMI (Body Mass Index) 26.82 kg/m2 Fidelina Waters RN [facility] Work Phone: 07-02-2019 11:30-0500 Body Temperature 98.2 [degF] Fidelina Waters RN [facility] Work Phone: Comment on above: Method: Temporal 07-02-2019 11:30-0500 Body weight 88.45 kg Fidelina Waters RN [facility] Work Phone: 07-02-2019 11:30-0500 BP Diastolic 76 mm[Hg] Fidelina Waters RN [facility] Work Phone: Comment on above: Patient Position: Sitting; Cuff Location : Left Arm; Cuff Size: Standard 07-02-2019 11:30-0500 BP Systolic 124 mm[Hg] Fidelina Waters RN [facility] Work Phone: Comment on above: Patient Position: Sitting; Cuff Location : Left Arm; Cuff Size: Standard 07-02-2019 11:30-0500 BSA (Body Surface Area) 2.1 m2 Fidelina Tarango Jt [facility] Work Phone: 07-02-2019 11:30-0500 Height 181.61 cm Fidelina Tarango Jt RN [facility] Work Phone: 07-02-2019 11:30-0500 Pulse (Heart Rate) 72 /min Fidelina Tarango Jt RN [facility] Work Phone: Comment on above: Pattern: Regular 07-02-2019 11:30-0500 Respiratory Rate 16 /min Fidelina Sukhdeep Jt RN [facility] Work Phone: Comment on above: Pattern: Unlabored 06-11-2019 10:10-0400 BMI (Body Mass Index) 27.11 kg/m2 Denisse Alvarado RN [facility] Work Phone: 06-11-2019 10:10-0400 Body weight 89.42 kg Denisse Alvarado RN [facility] Work Phone: 06-11-2019 10:10-0400 BP Diastolic 84 mm[Hg] Denisse Alvarado RN [facility] Work Phone: Comment on above: Patient Position: Sitting; Cuff Location : Left Arm; Cuff Size: Large 06-11-2019 10:10-0400 BP Systolic 132 mm[Hg] Denisse Alvarado RN [facility] Work Phone: Comment on above: Patient Position: Sitting; Cuff Location : Left Arm; Cuff Size: Large 06-11-2019 10:10-0400 BSA (Body Surface Area) 2.11 m2 Denisse Alvarado RN [facility] Work Phone: 06-11-2019 10:10-0400 Height 181.61 cm Denisse Alvarado RN [facility] Work Phone: 06-11-2019 10:10-0400 Pulse (Heart Rate) 86 /min Denisse Alvarado RN [facility] Work Phone: Comment on above: Pattern: Regular 06-11-2019 10:10-0400 Pulse Oximetry 97 % Catherine Jose [facility] Work Phone: Comment on above: Room air 06-11-2019 10:10-0400 Respiratory Rate 18 /min Denisse Alvarado RN [facility] Work Phone: Comment on above: Pattern: Unlabored 06-11-2019 10:10-0400 SaO2% (BldA) [Mass fraction] 97 % Denisse Alvarado RN [facility]; [facility] Work Phone: 04-30-2019 07:39-0400 BMI (Body Mass Index) 26.13 kg/m2 Florentino Sanchez LPN [facility] Work Phone: 04-30-2019 07:39-0400 Body weight 86.2 kg Florentino Sanchez LPN [facility] Work Phone: 04-30-2019 07:39-0400 BP Diastolic 88 mm[Hg] Florentino Sanchez LPN [facility] Work Phone: Comment on above: Patient Position: Sitting; Cuff Location : Left Arm; Cuff Size: Standard 04-30-2019 07:39-0400 BP Systolic 140 mm[Hg] Florentino Sanchez LPN [facility] Work Phone: Comment on above: Patient Position: Sitting; Cuff Location : Left Arm; Cuff Size: Standard 04-30-2019 07:39-0400 BSA (Body Surface Area) 2.07 m2 Florentino Sanchez LPN [facility] Work Phone: 04-30-2019 07:39-0400 Height 181.61 cm Florentino Sanchez LPN [facility] Work Phone: 04-30-2019 07:39-0400 Pulse (Heart Rate) 81 /min Florentino Sanchez LPN [facility] Work Phone: Comment on above: Pattern: Regular 04-30-2019 07:39-0400 Pulse Oximetry 95 % Catherine Garcia [facility] Work Phone: Comment on above: Room air 04-30-2019 07:39-0400 Respiratory Rate 16 /min Florentino Sanchez LPN [facility] Work Phone: Comment on above: Pattern: Unlabored 04-30-2019 07:39-0400 SaO2% (BldA) [Mass fraction] 95 % Florentino Sanchez LPN [facility]; [facility] Work Phone: 12-23-2018 13:52-0400 BMI (Body Mass Index) 26.82 kg/m2 Denisse Alvarado RN [facility] Work Phone: 12-23-2018 13:52-0400 Body weight 88.47 kg Denisse Alvarado RN [facility] Work Phone: 12-23-2018 13:52-0400 BP Diastolic 80 mm[Hg] Denisse Alvarado RN [facility] Work Phone: Comment on above: Patient Position: Sitting; Cuff Location : Left Arm; Cuff Size: Large 12-23-2018 13:52-0400 BP Systolic 122 mm[Hg] Denisse Alvarado RN [facility] Work Phone: Comment on above: Patient Position: Sitting; Cuff Location : Left Arm; Cuff Size: Large 12-23-2018 13:52-0400 BSA (Body Surface Area) 2.1 m2 Denisse Alvarado RN [facility] Work Phone: 12-23-2018 13:52-0400 Height 181.61 cm Denisse Alvarado RN [facility] Work Phone: 12-23-2018 13:52-0400 Pulse (Heart Rate) 100 /min Denisse Alvarado RN [facility] Work Phone: Comment on above: Pattern: Regular 12-23-2018 13:52-0400 Pulse Oximetry 95 % Catherine Garcia [facility] Work Phone: Comment on above: Room air 12-23-2018 13:52-0400 Respiratory Rate 18 /min Denisse Alvarado RN [facility] Work Phone: Comment on above: Pattern: Unlabored 12-23-2018 13:52-0400 SaO2% (BldA) [Mass fraction] 95 % Denisse Alvarado RN [facility]; [facility] Work Phone: 12-23-2018 13:52-0400 Weight 88.47 kg Catherine Bravoon [facility] Work Phone: 12-19-2018 08:16-0400 BMI (Body Mass Index) 26.82 kg/m2 Florentino Daniel [employer] [facility] Work Phone: 12-19-2018 08:16-0400 Body Temperature 97 [degF] Florentino Sanchez LPN [facility] Work Phone: Comment on above: Method: Temporal 12-19-2018 08:16-0400 Body weight 88.47 kg Florentino Daniel WORLEY [facility] Work Phone: 12-19-2018 08:16-0400 BP Diastolic 82 mm[Hg] Florentino Sanchez LPN [facility] Work Phone: Comment on above: Patient Position: Sitting; Cuff Location : Left Arm; Cuff Size: Standard 12-19-2018 08:16-0400 BP Systolic 122 mm[Hg] Florentino Sanchez LPN [facility] Work Phone: Comment on above: Patient Position: Sitting; Cuff Location : Left Arm; Cuff Size: Standard 12-19-2018 08:16-0400 BSA (Body Surface Area) 2.1 m2 Florentino Sanchez LPN [facility] Work Phone: 12-19-2018 08:16-0400 Height 181.61 cm Florentino Sanchez LPN [facility] Work Phone: 12-19-2018 08:16-0400 Pulse (Heart Rate) 92 /min Florentino Sanchez LPN [facility] Work Phone: Comment on above: Pattern: Regular 12-19-2018 08:16-0400 Pulse Oximetry 95 % Catherine Garcia [facility] Work Phone: Comment on above: Room air 12-19-2018 08:16-0400 Respiratory Rate 16 /min Florentino Sanchez LPN [facility] Work Phone: Comment on above: Pattern: Unlabored 12-19-2018 08:16-0400 SaO2% (BldA) [Mass fraction] 95 % Florentino Sanchez LPN [facility]; [facility] Work Phone: 12-19-2018 08:16-0400 Weight 88.47 kg Catherine Garcia [facility] Work Phone: 12-04-2018 09:12-0400 BMI (Body Mass Index) 26.82 kg/m2 Florentino Sanchez LPN [facility] Work Phone: 12-04-2018 09:12-0400 Body weight 88.47 kg Florentino Sanchez LPN [facility] Work Phone: 12-04-2018 09:12-0400 BP Diastolic 66 mm[Hg] Florentino Sanchez LPN [facility] Work Phone: Comment on above: Patient Position: Sitting; Cuff Location : Left Arm; Cuff Size: Standard 12-04-2018 09:12-0400 BP Systolic 110 mm[Hg] Florentino Sanchez LPN [facility] Work Phone: Comment on above: Patient Position: Sitting; Cuff Location : Left Arm; Cuff Size: Standard 12-04-2018 09:12-0400 BSA (Body Surface Area) 2.1 m2 Florentino Sanchez LPN [facility] Work Phone: 12-04-2018 09:12-0400 Height 181.61 cm Florentino Sanchez LPN [facility] Work Phone: 12-04-2018 09:12-0400 Pulse (Heart Rate) 83 /min Florentino Sanchez LPN [facility] Work Phone: Comment on above: Pattern: Regular 12-04-2018 09:12-0400 Pulse Oximetry 95 % Catherine Garcia [facility] Work Phone: Comment on above: Room air 12-04-2018 09:12-0400 Respiratory Rate 16 /min Florentino Sanchez LPN [facility] Work Phone: Comment on above: Pattern: Unlabored 12-04-2018 09:12-0400 SaO2% (BldA) [Mass fraction] 95 % Florentino Sanchez LPN [facility]; [facility] Work Phone: 12-04-2018 09:12-0400 Weight 88.47 kg Catherinecolumba Bravoon [facility] Work Phone: 11-27-2018 11:12-0400 BMI (Body Mass Index) 27.23 kg/m2 AGGIE Shaffer LPN [facility] Work Phone: 11-27-2018 11:12-0400 Body Temperature 97.9 [degF] AGGIE Shaffer LPN [facility] Work Phone: Comment on above: Method: Temporal 11-27-2018 11:12-0400 Body weight 89.81 kg AGGIE Shaffer LPN [facility] Work Phone: 11-27-2018 11:12-0400 BP Diastolic 80 mm[Hg] AGGIE Shaffer LPN [facility] Work Phone: Comment on above: Patient Position: Sitting; Cuff Location : Left Arm; Cuff Size: Standard 11-27-2018 11:12-0400 BP Systolic 126 mm[Hg] AGGIE Shaffer LPN [facility] Work Phone: Comment on above: Patient Position: Sitting; Cuff Location : Left Arm; Cuff Size: Standard 11-27-2018 11:12-0400 BSA (Body Surface Area) 2.11 m2 AGGIE Shaffer LPN [facility] Work Phone: 11-27-2018 11:12-0400 Height 181.61 cm AGGIE Shaffer LPN [facility] Work Phone: 11-27-2018 11:12-0400 Pulse (Heart Rate) 74 /min AGGIE Shaffer LPN [facility] Work Phone: Comment on above: Pattern: Regular 11-27-2018 11:12-0400 Pulse Oximetry 97 % Catherine Garcia [facility] Work Phone: Comment on above: Room air 11-27-2018 11:12-0400 Respiratory Rate 18 /min AGGIE Shaffer LPN [facility] Work Phone: Comment on above: Pattern: Unlabored 11-27-2018 11:12-0400 SaO2% (BldA) [Mass fraction] 97 % AGGIE Shaffer LPN [facility]; [facility] Work Phone: 11-27-2018 11:12-0400 Weight 89.81 kg Catherine Garcia [facility] Work Phone: 08-28-2018 09:27-0500 BMI (Body Mass Index) 27.28 kg/m2 Denisse Alvarado RN [facility] Work Phone: 08-28-2018 09:27-0500 Body weight 89.98 kg Denisse Alvarado RN [facility] Work Phone: 08-28-2018 09:27-0500 BP Diastolic 82 mm[Hg] Denisse Alvarado RN [facility] Work Phone: Comment on above: Patient Position: Sitting; Cuff Location : Left Arm; Cuff Size: Large 08-28-2018 09:27-0500 BP Systolic 148 mm[Hg] Denisse Alvarado RN [facility] Work Phone: Comment on above: Patient Position: Sitting; Cuff Location : Left Arm; Cuff Size: Large 08-28-2018 09:27-0500 BSA (Body Surface Area) 2.11 m2 Denisse Alvarado RN [facility] Work Phone: 08-28-2018 09:27-0500 Height 181.61 cm Denisse Alvarado RN [facility] Work Phone: 08-28-2018 09:27-0500 Pulse (Heart Rate) 73 /min Denisse Alvarado RN [facility] Work Phone: Comment on above: Pattern: Regular 08-28-2018 09:27-0500 Pulse Oximetry 97 % Catherine Jose [facility] Work Phone: Comment on above: Room air 08-28-2018 09:27-0500 Respiratory Rate 18 /min Denisse Alvarado RN [facility] Work Phone: Comment on above: Pattern: Unlabored 08-28-2018 09:27-0500 SaO2% (BldA) [Mass fraction] 97 % Denisse Alvarado RN [facility]; [facility] Work Phone: 08-28-2018 09:27-0500 Weight 89.98 kg Catherine Garcia [facility] Work Phone: 06-12-2018 11:10-0400 BMI (Body Mass Index) 27.68 kg/m2 Keke Videschanning [employer] [facility] Work Phone: 06-12-2018 11:10-0400 Body Temperature 97.6 [degF] Keke Gravius [employer] [facility] Work Phone: Comment on above: Method: Temporal 06-12-2018 11:10-0400 Body weight 91.29 kg Keke Mike CMA [facility] Work Phone: 06-12-2018 11:10-0400 BP Diastolic 80 mm[Hg] Keke Mike CMA [facility] Work Phone: Comment on above: Patient Position: Sitting; Cuff Location : Left Arm; Cuff Size: Standard 06-12-2018 11:10-0400 BP Systolic 120 mm[Hg] Keke Mike [facility] Work Phone: Comment on above: Patient Position: Sitting; Cuff Location : Left Arm; Cuff Size: Standard 06-12-2018 11:100400 BSA (Body Surface Area) 2.13 m2 Keke Mike [facility] Work Phone: 06-12-2018 11:10-0400 Height 181.61 cm Keke Mike [facility] Work Phone: 06-12-2018 11:10-0400 Pulse (Heart Rate) 80 /min Keke Mike [facility] Work Phone: Comment on above: Pattern: Regular 06-12-2018 11:10-0400 Pulse Oximetry 95 % Catherine Garcia [facility] Work Phone: Comment on above: Room air 06-12-2018 11:10-0400 Respiratory Rate 16 /min Keke Mike [facility] Work Phone: Comment on above: Pattern: Unlabored 06-12-2018 11:10-0400 SaO2% (BldA) [Mass fraction] 95 % Keke Mike [facility]; [facility] Work Phone: 06-12-2018 11:10-0400 Weight 91.29 kg Catherine Garcia [facility] Work Phone: 04-25-2018 14:33-0400 BMI (Body Mass Index) 27.81 kg/m2 Denisse Alvarado RN [facility] Work Phone: 04-25-2018 14:33-0400 Body Temperature 98.7 [degF] Denisse Alvarado RN [facility] Work Phone: Comment on above: Method: Temporal 04-25-2018 14:33-0400 Body weight 91.74 kg Denisse Alvarado RN [facility] Work Phone: 04-25-2018 14:33-0400 BP Diastolic 82 mm[Hg] Denisse Alvarado RN [facility] Work Phone: Comment on above: Patient Position: Sitting; Cuff Location : Left Arm; Cuff Size: Large 04-25-2018 14:33-0400 BP Systolic 128 mm[Hg] Denisse Alvarado RN [facility] Work Phone: Comment on above: Patient Position: Sitting; Cuff Location : Left Arm; Cuff Size: Large 04-25-2018 14:33-0400 BSA (Body Surface Area) 2.13 m2 Denisse Alvarado RN [facility] Work Phone: 04-25-2018 14:33-0400 Height 181.61 cm Denisse Alvarado RN [facility] Work Phone: 04-25-2018 14:33-0400 Pulse (Heart Rate) 18 /min Denisse Alvarado RN [facility] Work Phone: Comment on above: Pattern: Regular 04-25-2018 14:33-0400 Pulse Oximetry 93 % Catherine Bravoon [facility] Work Phone: Comment on above: Room air 04-25-2018 14:33-0400 Respiratory Rate 18 /min Denisse Alvarado RN [facility] Work Phone: Comment on above: Pattern: Unlabored 04-25-2018 14:33-0400 SaO2% (BldA) [Mass fraction] 93 % Denisse Alvarado RN [facility]; [facility] Work Phone: 04-25-2018 14:33-0400 Weight 91.74 kg Catherine Bravoon [facility] Work Phone: 04-17-2018 10:14-0400 BMI (Body Mass Index) 27.56 kg/m2 Denisse Alvarado RN [facility] Work Phone: 04-17-2018 10:14-0400 Body weight 90.89 kg Denisse Alvarado RN [facility] Work Phone: 04-17-2018 10:14-0400 BP Diastolic 78 mm[Hg] Denisse Alvarado RN [facility] Work Phone: Comment on above: Patient Position: Sitting; Cuff Location : Left Arm; Cuff Size: Large 04-17-2018 10:14-0400 BP Systolic 128 mm[Hg] Denisse Alvarado RN [facility] Work Phone: Comment on above: Patient Position: Sitting; Cuff Location : Left Arm; Cuff Size: Large 04-17-2018 10:140400 BSA (Body Surface Area) 2.12 m2 Denisse Alvarado RN [facility] Work Phone: 04-17-2018 10:140400 Height 181.61 cm Denisse Alvarado RN [facility] Work Phone: 04-17-2018 10:14-0400 Pulse (Heart Rate) 70 /min Denisse Alvarado RN [facility] Work Phone: Comment on above: Pattern: Regular 04-17-2018 10:140400 Pulse Oximetry 97 % Catherine Jose [facility] Work Phone: Comment on above: Room air 04-17-2018 10:140400 Respiratory Rate 18 /min Denisse Alvarado RN [facility] Work Phone: Comment on above: Pattern: Unlabored 04-17-2018 10:140400 SaO2% (BldA) [Mass fraction] 97 % Denisse Alvarado RN [facility]; [facility] Work Phone: 04-17-2018 10:140400 Weight 90.89 kg Catherine Garcia [facility] Work Phone: 12-19-2017 10:13-0400 BMI (Body Mass Index) 27.69 kg/m2 Denisse Alvarado RN [facility] Work Phone: 12-19-2017 10:13-0400 Body weight 91.34 kg Denisse Alvarado RN [facility] Work Phone: 12-19-2017 10:13-0400 BP Diastolic 86 mm[Hg] Denisse Alvarado RN [facility] Work Phone: Comment on above: Patient Position: Sitting; Cuff Location : Left Arm; Cuff Size: Large 12-19-2017 10:13-0400 BP Systolic 140 mm[Hg] Denisse Alvarado RN [facility] Work Phone: Comment on above: Patient Position: Sitting; Cuff Location : Left Arm; Cuff Size: Large 12-19-2017 10:13-0400 BSA (Body Surface Area) 2.13 m2 Denisse Alvarado RN [facility] Work Phone: 12-19-2017 10:130400 Height 181.61 cm Denisse Alvarado RN [facility] Work Phone: 12-19-2017 10:13-0400 Pulse (Heart Rate) 74 /min Denisse Alvarado RN [facility] Work Phone: Comment on above: Pattern: Regular 12-19-2017 10:13-0400 Pulse Oximetry 96 % Catherine Garcia [facility] Work Phone: Comment on above: Room air 12-19-2017 10:13-0400 Respiratory Rate 18 /min Denisse Alvarado RN [facility] Work Phone: Comment on above: Pattern: Unlabored 12-19-2017 10:13-0400 SaO2% (BldA) [Mass fraction] 96 % Denisse Alvarado RN [facility]; [facility] Work Phone: 12-19-2017 10:13-0400 Weight 91.34 kg Catherine Garcia [facility] Work Phone: 11-27-2017 09:47-0400 BMI (Body Mass Index) 27.69 kg/m2 Denisse Alvarado RN [facility] Work Phone: Comment on above: hearing [facility] 11-27-2017 09:47-0400 Body weight 91.34 kg Denisse Alvarado RN [facility] Work Phone: Comment on above: hearing [facility] 11-27-2017 09:47-0400 BP Diastolic 82 mm[Hg] Denisse Alvarado RN [facility] Work Phone: Comment on above: Patient Position: Sitting; Cuff Location : Left Arm; Cuff Size: Large hearing [facility] 11-27-2017 09:47-0400 BP Systolic 124 mm[Hg] Denisse Alvarado RN [facility] Work Phone: Comment on above: Patient Position: Sitting; Cuff Location : Left Arm; Cuff Size: Large hearing [facility] 11-27-2017 09:47-0400 BSA (Body Surface Area) 2.13 m2 Denisse Alvarado RN [facility] Work Phone: Comment on above: hearing Tanisha [facility] 11-27-2017 09:47-0400 Height 181.61 cm Denisse Alvarado RN [facility] Work Phone: Comment on above: [facility] 11-27-2017 09:47-0400 Pulse (Heart Rate) 78 /min Denisse Alvarado RN [facility] Work Phone: Comment on above: Pattern: Regular hearing [facility] 11-27-2017 09:47-0400 Pulse Oximetry 94 % Catherine Garcia [facility] Work Phone: Comment on above: Room air hearing [facility] 11-27-2017 09:47-0400 Respiratory Rate 18 /min Denisse Alvarado RN [facility] Work Phone: Comment on above: Pattern: Unlabored hearing [facility] 11-27-2017 09:47-0400 SaO2% (BldA) [Mass fraction] 94 % Denisse Alvarado RN [facility]; [facility] Work Phone: 11-27-2017 09:47-0400 Weight 91.34 kg Catherine Garcia [facility] Work Phone: Comment on above: [facility] 11-14-2017 08:45-0400 BMI (Body Mass Index) 28.06 kg/m2 Josselin William [facility] Work Phone: 11-14-2017 08:45-0400 Body Temperature 96.7 [degF] Josselin Sanchez [facility] Work Phone: 11-14-2017 08:45-0400 Body weight 92.[address] [facility] Work Phone: 11-14-2017 08:45-0400 BP [facility]astolic 80 mm[Hg] [facility]: Comment on above: Patient Position: Sitting; Cuff Location : Left Arm; Cuff Size: Standard 11-14-2017 08:45-0400 BP Systolic 140 mm[Hg] Josselin [facility] Work Phone: Comment on above: Patient Position: Sitting; Cuff Location : Left Arm; Cuff Size: Standard 11-14-2017 08:45-0400 BSA (Body Surface Area) 2.[address] [facility] Work Phone: 11-14-2017 08:45-0400 Height 181.[address] [facility] Work Phone: 11-14-2017 08:45-0400 Pulse (Heart Rate) 92 /min [facility] Work [facility]: Comment on above: Pattern: Regular 11-14-2017 08:45-0400 Pulse Oximetry 94 % Catherine Garcia [facility] Work Phone: Comment on above: Room air 11-14-2017 08:45-0400 Respiratory Rate 17 /min [facility]osselin [facility] Work Phone: Comment on above: Pattern: Unlabored 11-14-2017 08:45-0400 SaO2% (BldA) [Mass fraction] 94 % [facility] Work Phone: 11-14-2017 08:45-0400 Weight 92.53 kg Catherine Garcia [facility] Work Phone: 11-05-2017 09:37-0400 BMI (Body Mass Index) 28.06 kg/m2 Fidelina Waters RN [facility] Work Phone: 11-05-2017 09:37-0400 Body Temperature 98.3 [degF] Fidelina Waters RN [facility] Work Phone: Comment on above: Method: Temporal 11-05-2017 09:37-0400 Body weight 92.53 kg Fidelina Waters RN [facility] Work Phone: 11-05-2017 09:37-0400 BP Diastolic 78 mm[Hg] Fidelina Waters RN [facility] Work Phone: Comment on above: Patient Position: Sitting; Cuff Location : Left Arm; Cuff Size: Standard 11-05-2017 09:37-0400 BP Systolic 130 mm[Hg] Fidelina Waters RN [facility] Work Phone: Comment on above: Patient Position: Sitting; Cuff Location : Left Arm; Cuff Size: Standard 11-05-2017 09:37-0400 BSA (Body Surface Area) 2.14 m2 Fidelina Waters RN [facility] Work Phone: 11-05-2017 09:37-0400 Height 181.61 cm Fidelina Waters RN [facility] Work Phone: 11-05-2017 09:37-0400 Pulse (Heart Rate) 72 /min Fidelina Waters RN [facility] Work Phone: Comment on above: Pattern: Regular 11-05-2017 09:37-0400 Pulse Oximetry 96 % Catherine Garcia [facility] Work Phone: Comment on above: Room air 11-05-2017 09:37-0400 Respiratory Rate 16 /min Fidelina Waters RN [facility] Work Phone: Comment on above: Pattern: Unlabored 11-05-2017 09:37-0400 SaO2% (BldA) [Mass fraction] 96 % Fidelina Waters RN [facility]; [facility] Work Phone: 11-05-2017 09:37-0400 Weight 92.53 kg Catherine Jose [facility] Work Phone: 08-27-2017 09:47-0500 BMI (Body Mass Index) 28.06 kg/m2 Denisse Alvarado RN [facility] Work Phone: 08-27-2017 09:47-0500 Body Temperature 98 [degF] Denisse Alvarado RN [facility] Work Phone: Comment on above: Method: Temporal 08-27-2017 09:47-0500 Body weight 92.53 kg Denisse Alvarado RN [facility] Work Phone: 08-27-2017 09:47-0500 BP Diastolic 90 mm[Hg] Denisse Alvarado RN [facility] Work Phone: Comment on above: Patient Position: Sitting; Cuff Location : Left Arm; Cuff Size: Large 08-27-2017 09:47-0500 BP Systolic 138 mm[Hg] Denisse Alvarado RN [facility] Work Phone: Comment on above: Patient Position: Sitting; Cuff Location : Left Arm; Cuff Size: Large 08-27-2017 09:47-0500 BSA (Body Surface Area) 2.14 m2 Denisse Alvarado RN [facility] Work Phone: 08-27-2017 09:47-0500 Height 181.61 cm Denisse Alvarado RN [facility] Work Phone: 08-27-2017 09:47-0500 Pulse (Heart Rate) 98 /min Denisse Alvarado RN [facility] Work Phone: Comment on above: Pattern: Regular 08-27-2017 09:47-0500 Pulse Oximetry 94 % Catherine Garcia [facility] Work Phone: Comment on above: Room air 08-27-2017 09:47-0500 Respiratory Rate 18 /min Denisse Alvarado RN [facility] Work Phone: Comment on above: Pattern: Unlabored 08-27-2017 09:47-0500 SaO2% (BldA) [Mass fraction] 94 % Denisse Alvarado RN [facility]; [facility] Work Phone: 08-27-2017 09:47-0500 Weight 92.53 kg Catherine Garcia [facility] Work Phone: 04-22-2017 15:00-0400 BMI (Body Mass Index) 27.89 kg/m2 Meghan [facility] Work Phone: 04-22-2017 15:00-0400 BP Diastolic 70 mm[Hg] [facility] Work Phone: 04-22-2017 15:00-0400 BP Systolic 110 mm[Hg] [facility] Work Phone: 04-22-2017 15:00-0400 Height 180.34 cm [facility] Work Phone: 04-22-2017 15:00-0400 Pulse (Heart Rate) 76 /min [facility] Work Phone: 04-22-2017 15:00-0400 Respiratory Rate 18 /min [facility] Work Phone: 04-22-2017 15:00-0400 Weight 90.72 kg [facility] Work Phone: 10-17-2016 16:24-0500 Heart rate 90 /min [facility] Work Phone: 10-17-2016 15:27-0500 BSA (Body Surface Area) 2.13 m2 [facility] Work Phone: 10-17-2016 15:27-0500 Pulse Oximetry 96 % [facility] Work Phone: 10-11-2016 09:09-0500 BMI (Body Mass Index) 28.06 kg/m2 Denisse Alvarado RN [facility] Work Phone: 10-11-2016 09:09-0500 Body weight 92.53 kg Denisse Alvarado RN [facility] Work Phone: 10-11-2016 09:09-0500 BP Diastolic 82 mm[Hg] Denisse Alvarado RN [facility] Work Phone: Comment on above: Patient Position: Sitting; Cuff Location : Right Arm; Cuff Size: Large 10-11-2016 09:09-0500 BP Systolic 138 mm[Hg] Denisse Alvarado RN [facility] Work Phone: Comment on above: Patient Position: Sitting; Cuff Location : Right Arm; Cuff Size: Large 10-11-2016 09:09-0500 BSA (Body Surface Area) 2.14 m2 Denisse Alvarado RN [facility] Work Phone: 10-11-2016 09:09-0500 Height 181.61 cm Denisse Alvarado RN [facility] Work Phone: 10-11-2016 09:09-0500 Pulse (Heart Rate) 86 /min Denisse Alvarado RN [facility] Work Phone: Comment on above: Pattern: Regular 10-11-2016 09:09-0500 Pulse Oximetry 96 % Catherine Garcia [facility] Work Phone: Comment on above: Room air 10-11-2016 09:09-0500 Respiratory Rate 18 /min Denisse Alvarado RN [facility] Work Phone: Comment on above: Pattern: Unlabored 10-11-2016 09:09-0500 SaO2% (BldA) [Mass fraction] 96 % Denisse Alvarado RN [facility]; [facility] Work Phone: 10-11-2016 09:09-0500 Weight 92.53 kg Catherine Jose [facility] Work Phone: 07-17-2016 08:31-0500 BMI (Body Mass Index) 27.92 kg/m2 Bijal Serrano LPN [facility] Work Phone: 07-17-2016 08:31-0500 Body Temperature 97.9 [degF] Bijal Serrano LPN [facility] Work Phone: 07-17-2016 08:31-0500 Body weight 92.08 kg Bijal Maggie WORLEY [facility] Work Phone: 07-17-2016 08:31-0500 BP Diastolic 76 mm[Hg] Bijal Serrano LPN [facility] Work Phone: Comment on above: Patient Position: Sitting; Cuff Location : Left Arm; Cuff Size: Standard 07-17-2016 08:31-0500 BP Systolic 124 mm[Hg] Bijal Slarb [employer] [facility] Work Phone: Comment on above: Patient Position: Sitting; Cuff Location : Left Arm; Cuff Size: Standard 07-17-2016 08:31-0500 BSA (Body Surface Area) 2.13 m2 Bijal Slarb [employer] [facility] Work Phone: 07-17-2016 08:31-0500 Height 181.61 cm Bijal Slarb [employer] [facility] Work Phone: 07-17-2016 08:31-0500 Pulse (Heart Rate) 73 /min Bijal Slarb [employer] [facility] Work Phone: Comment on above: Pattern: Regular 07-17-2016 08:31-0500 Pulse Oximetry 95 % Catherine Garcia [facility] Work Phone: Comment on above: Room air 07-17-2016 08:31-0500 Respiratory Rate 16 /min Bijal Slarb [employer] [facility] Work Phone: Comment on above: Pattern: Unlabored 07-17-2016 08:31-0500 SaO2% (BldA) [Mass fraction] 95 % Bijal Slarb [employer] [facility]; [facility] Work Phone: 07-17-2016 08:31-0500 Weight 92.08 kg Catherine Garcia [facility] Work Phone: 06-01-2016 09:51-0400 BMI (Body Mass Index) 27.83 kg/m2 Bijal Slarb [employer] [facility] Work Phone: 06-01-2016 09:51-0400 Body Temperature 97.9 [degF] Bijal Slarb [employer] [facility] Work Phone: 06-01-2016 09:51-0400 Body weight 91.8 kg Bijal Slarb [employer] [facility] Work Phone: 06-01-2016 09:51-0400 BP Diastolic 84 mm[Hg] Bijal Slarb [employer] [facility] Work Phone: Comment on above: Patient Position: Sitting; Cuff Location : Left Arm; Cuff Size: Standard 06-01-2016 09:51-0400 BP Systolic 126 mm[Hg] Bijal Serrano [employer] [facility] Work Phone: Comment on above: Patient Position: Sitting; Cuff Location : Left Arm; Cuff Size: Standard 06-01-2016 09:51-0400 BSA (Body Surface Area) 2.13 m2 Bijal Maggie [employer] [facility] Work Phone: 06-01-2016 09:51-0400 Height 181.61 cm Bijal Slarb [employer] [facility] Work Phone: 06-01-2016 09:51-0400 Pulse (Heart Rate) 80 /min Bijal Serrano LPN [facility] Work Phone: Comment on above: Pattern: Regular 06-01-2016 09:51-0400 Pulse Oximetry 96 % Catherine Garcia [facility] Work Phone: Comment on above: Room air 06-01-2016 09:51-0400 Respiratory Rate 16 /min Bijal Josuerb [employer] [facility] Work Phone: Comment on above: Pattern: Unlabored 06-01-2016 09:51-0400 SaO2% (BldA) [Mass fraction] 96 % Bijal Josuerb [employer] [facility]; [facility] Work Phone: 06-01-2016 09:51-0400 Weight 91.8 kg Catherine Garcia [facility] Work Phone: 04-05-2016 08:41-0400 BMI (Body Mass Index) 28.24 kg/m2 Denisse Alvarado RN [facility] Work Phone: 04-05-2016 08:41-0400 Body weight 93.16 kg Denisse Alvarado RN [facility] Work Phone: 04-05-2016 08:41-0400 BP Diastolic 84 mm[Hg] Denisse Alvarado RN [facility] Work Phone: Comment on above: Patient Position: Sitting; Cuff Location : Left Arm; Cuff Size: Large 04-05-2016 08:41-0400 BP Systolic 128 mm[Hg] Denisse Alvarado RN [facility] Work Phone: Comment on above: Patient Position: Sitting; Cuff Location : Left Arm; Cuff Size: Large 04-05-2016 08:41-0400 BSA (Body Surface Area) 2.14 m2 Denisse Alvarado RN [facility] Work Phone: 04-05-2016 08:41-0400 Height 181.61 cm Denisse Alvarado RN [facility] Work Phone: 04-05-2016 08:41-0400 Pulse (Heart Rate) 79 /min Denisse Alvarado RN [facility] Work Phone: Comment on above: Pattern: Regular 04-05-2016 08:41-0400 Pulse Oximetry 97 % Catherine Garcia [facility] Work Phone: Comment on above: Room air 04-05-2016 08:41-0400 Respiratory Rate 18 /min Denisse Alvarado RN [facility] Work Phone: Comment on above: Pattern: Unlabored 04-05-2016 08:41-0400 SaO2% (BldA) [Mass fraction] 97 % Denisse Alvarado RN [facility]; [facility] Work Phone: 04-05-2016 08:41-0400 Weight 93.16 kg Catherine Jose [facility] Work Phone: 12-29-2015 08:29-0400 BMI (Body Mass Index) 28.67 kg/m2 Denisse Alvarado RN [facility] Work Phone: 12-29-2015 08:29-0400 Body weight 94.58 kg Denisse Alvarado RN [facility] Work Phone: 12-29-2015 08:29-0400 BP Diastolic 84 mm[Hg] Denisse Alvarado RN [facility] Work Phone: Comment on above: Patient Position: Sitting; Cuff Location : Left Arm; Cuff Size: Large 12-29-2015 08:29-0400 BP Systolic 148 mm[Hg] Denisse Alvarado RN [facility] Work Phone: Comment on above: Patient Position: Sitting; Cuff Location : Left Arm; Cuff Size: Large 12-29-2015 08:29-0400 BSA (Body Surface Area) 2.16 m2 Denisse Alvarado RN [facility] Work Phone: 12-29-2015 08:29-0400 Height 181.61 cm Denisse Alvarado RN [facility] Work Phone: 12-29-2015 08:29-0400 Pulse (Heart Rate) 76 /min Denisse Alvarado RN [facility] Work Phone: Comment on above: Pattern: Regular 12-29-2015 08:29-0400 Pulse Oximetry 96 % Catherine Garcia [facility] Work Phone: Comment on above: Room air 12-29-2015 08:29-0400 Respiratory Rate 18 /min Denisse Alvarado RN [facility] Work Phone: Comment on above: Pattern: Unlabored 12-29-2015 08:29-0400 SaO2% (BldA) [Mass fraction] 96 % Denisse Alvarado RN [facility]; [facility] Work Phone: 12-29-2015 08:29-0400 Weight 94.58 kg Catherinecolumba Bravoon [facility] Work Phone: 09-26-2015 08:04-0500 BMI (Body Mass Index) 27.83 kg/m2 Nirali Morales [facility] Work Phone: 09-26-2015 08:04-0500 Body Temperature 96.2 [degF] Nirali Morales [facility] Work Phone: Comment on above: Method: Oral 09-26-2015 08:04-0500 Body weight 91.8 kg Nirali Morales [facility] Work Phone: 09-26-2015 08:04-0500 BP Diastolic 78 mm[Hg] Nirali Morales [facility] Work Phone: Comment on above: Patient Position: Sitting; Cuff Location : Left Arm; Cuff Size: Standard 09-26-2015 08:04-0500 BP Systolic 115 mm[Hg] Nirali Morales [facility] Work Phone: Comment on above: Patient Position: Sitting; Cuff Location : Left Arm; Cuff Size: Standard 09-26-2015 08:04-0500 BSA (Body Surface Area) 2.13 m2 Nirali Morales [facility] Work Phone: 09-26-2015 08:04-0500 Height 181.61 cm Nirali Morales [facility] Work Phone: 09-26-2015 08:04-0500 Pulse (Heart Rate) 84 /min Nirali Morales [facility] Work Phone: Comment on above: Pattern: Regular 09-26-2015 08:04-0500 Pulse Oximetry 98 % Catherine Garcia [facility] Work Phone: Comment on above: Room air 09-26-2015 08:04-0500 Respiratory Rate 16 /min Nirali Morales [facility] Work Phone: Comment on above: Pattern: Unlabored 09-26-2015 08:04-0500 SaO2% (BldA) [Mass fraction] 98 % Nirali Morales [facility]; [facility] Work Phone: 09-26-2015 08:04-0500 Weight 91.8 kg Catherine Garcia [facility] Work Phone: 06-23-2015 09:23-0400 BP Diastolic 68 mm[Hg] Catherine Garcia [facility] Work Phone: Comment on above: Patient Position: Sitting; Cuff Location : Left Arm; Cuff Size: Standard pt said wasnt done, but it was, so repeat 06-23-2015 09:23-0400 BP Systolic 118 mm[Hg] Catherine Garcia [facility] Work Phone: Comment on above: Patient Position: Sitting; Cuff Location : Left Arm; Cuff Size: Standard pt said wasnt done, but it was, so repeat 06-23-2015 08:14-0400 BMI (Body Mass Index) 27.01 kg/m2 Denisse Alvarado RN [facility] Work Phone: 06-23-2015 08:14-0400 Body weight 89.08 kg Denisse Alvarado RN [facility] Work Phone: 06-23-2015 08:14-0400 BP Diastolic 70 mm[Hg] Denisse Alvarado RN [facility] Work Phone: Comment on above: Patient Position: Sitting; Cuff Location : Left Arm; Cuff Size: Large 06-23-2015 08:14-0400 BP Systolic 128 mm[Hg] Denisse Alvarado RN [facility] Work Phone: Comment on above: Patient Position: Sitting; Cuff Location : Left Arm; Cuff Size: Large 06-23-2015 08:14-0400 BSA (Body Surface Area) 2.1 m2 Denisse Alvarado RN [facility] Work Phone: 06-23-2015 08:14-0400 Height 181.61 cm Denisse Alvarado RN [facility] Work Phone: 06-23-2015 08:14-0400 Pulse (Heart Rate) 76 /min Denisse Alvarado RN [facility] Work Phone: Comment on above: Pattern: Regular 06-23-2015 08:14-0400 Pulse Oximetry 98 % Catherine Garcia [facility] Work Phone: Comment on above: Room air 06-23-2015 08:14-0400 Respiratory Rate 18 /min Denisse Alvarado RN [facility] Work Phone: Comment on above: Pattern: Unlabored 06-23-2015 08:14-0400 SaO2% (BldA) [Mass fraction] 98 % Denisse Alvarado RN [facility]; [facility] Work Phone: 06-23-2015 08:14-0400 Weight 89.08 kg Catherine Bravoon [facility] Work Phone: 03-31-2015 11:33-0400 Height 180.34 cm [facility] Work Phone: 03-21-2015 09:50-0400 BMI (Body Mass Index) 26.68 kg/m2 AGGIE Shaffer LPN [facility] Work Phone: 03-21-2015 09:50-0400 Body Temperature 97.9 [degF] AGGIE Shaffer LPN [facility] Work Phone: Comment on above: Method: Temporal 03-21-2015 09:50-0400 Body weight 88 kg AGGIE Shaffer LPN [facility] Work Phone: 03-21-2015 09:50-0400 BP Diastolic 64 mm[Hg] AGGIE Shaffer LPN [facility] Work Phone: Comment on above: Patient Position: Sitting; Cuff Location : Left Arm; Cuff Size: Standard 03-21-2015 09:50-0400 BP Systolic 104 mm[Hg] AGGIE Shaffer LPN [facility] Work Phone: Comment on above: Patient Position: Sitting; Cuff Location : Left Arm; Cuff Size: Standard 03-21-2015 09:50-0400 BSA (Body Surface Area) 2.09 m2 AGGIE Shaffer LPN [facility] Work Phone: 03-21-2015 09:50-0400 Height 181.61 cm AGGIE Shaffer LPN [facility] Work Phone: 03-21-2015 09:50-0400 Pulse (Heart Rate) 72 /min AGGIE Shaffer LPN [facility] Work Phone: Comment on above: Pattern: Regular 03-21-2015 09:50-0400 Pulse Oximetry 98 % Catherine Garcia [facility] Work Phone: Comment on above: Room air 03-21-2015 09:50-0400 Respiratory Rate 18 /min AGGIE Shaffer LPN [facility] Work Phone: Comment on above: Pattern: Unlabored 03-21-2015 09:50-0400 SaO2% (BldA) [Mass fraction] 98 % AGGIE Shaffer LPN [facility]; [facility] Work Phone: 03-21-2015 09:50-0400 Weight 88 kg Catherine Garcia [facility] Work Phone: 12-07-2014 15:05-0400 BMI (Body Mass Index) 27.44 kg/m2 Suzanne Root CNP Work Phone: [facility] Work Phone: 12-07-2014 15:05-0400 Body Temperature 97.2 [degF] Suzanne Root CNP Work Phone: [facility] Work Phone: 12-07-2014 15:05-0400 Body weight 90.49 kg Suzanne Root CNP Work Phone: [facility] Work Phone: 12-07-2014 15:05-0400 BP Diastolic 70 mm[Hg] Suzanne Root CNP Work Phone: [facility] Work Phone: Comment on above: Patient Position: Supine; Cuff Location: Right Arm; Cuff Size: Standard 12-07-2014 15:05-0400 BP Systolic 112 mm[Hg] Suzanne Root CNP Work Phone: [facility] Work Phone: Comment on above: Patient Position: Supine; Cuff Location: Right Arm; Cuff Size: Standard 12-07-2014 15:05-0400 BSA (Body Surface Area) 2.12 m2 Suzanne Root CNP Work Phone: [facility] Work Phone: 12-07-2014 15:05-0400 Height 181.61 cm Suzanne Root CNP Work Phone: [facility] Work Phone: 12-07-2014 15:05-0400 Pulse (Heart Rate) 80 /min Suzanne Root CNP Work Phone: [facility] Work Phone: Comment on above: Pattern: Regular 12-07-2014 15:05-0400 Respiratory Rate 16 /min Suzanne Root CNP Work Phone: [facility] Work Phone: 12-07-2014 15:05-0400 Weight 90.49 kg Catherine Jose [facility] Work Phone: 05-25-2014 12:06-0400 BMI (Body Mass Index) 28.59 kg/m2 Denisse Alvarado RN [facility] Work Phone: 05-25-2014 12:06-0400 Body weight 92.99 kg Denisse Alvarado RN [facility] Work Phone: 05-25-2014 12:06-0400 BP Diastolic 100 mm[Hg] Denisse Alvarado RN [facility] Work Phone: Comment on above: Patient Position: Sitting; Cuff Location : Left Arm; Cuff Size: Large 05-25-2014 12:06-0400 BP Systolic 162 mm[Hg] Denisse Alvarado RN [facility] Work Phone: Comment on above: Patient Position: Sitting; Cuff Location : Left Arm; Cuff Size: Large 05-25-2014 12:06-0400 BSA (Body Surface Area) 2.13 m2 Denisse Alvarado RN [facility] Work Phone: 05-25-2014 12:06-0400 Height 180.34 cm Denisse Alvarado RN [facility] Work Phone: 05-25-2014 12:06-0400 Pulse (Heart Rate) 69 /min Denisse Alvarado RN [facility] Work Phone: Comment on above: Pattern: Regular 05-25-2014 12:06-0400 Pulse Oximetry 98 % Catherine Garcia [facility] Work Phone: Comment on above: Room air 05-25-2014 12:06-0400 Respiratory Rate 20 /min Denisse Alvarado RN [facility] Work Phone: Comment on above: Pattern: Unlabored 05-25-2014 12:06-0400 SaO2% (BldA) [Mass fraction] 98 % Denisse Alvarado RN [facility]; [facility] Work Phone: 05-25-2014 12:06-0400 Weight 92.99 kg Catherine Garcia [facility] Work Phone: 11-04-2013 08:28-0400 BMI (Body Mass Index) 28.36 kg/m2 Denisse Alvarado RN [facility] Work Phone: 11-04-2013 08:28-0400 Body Temperature 97.7 [degF] Denisse Alvarado RN [facility] Work Phone: Comment on above: Method: Oral 11-04-2013 08:28-0400 Body weight 92.22 kg Denisse Alvarado RN [facility] Work Phone: 11-04-2013 08:28-0400 BP Diastolic 98 mm[Hg] Denisse Alvarado RN [facility] Work Phone: Comment on above: Patient Position: Sitting; Cuff Location : Left Arm; Cuff Size: Large 11-04-2013 08:28-0400 BP Systolic 128 mm[Hg] Denisse Alvarado RN [facility] Work Phone: Comment on above: Patient Position: Sitting; Cuff Location : Left Arm; Cuff Size: Large 11-04-2013 08:28-0400 BSA (Body Surface Area) 2.12 m2 Denisse Alvarado RN [facility] Work Phone: 11-04-2013 08:28-0400 Height 180.34 cm Denisse Alvarado RN [facility] Work Phone: 11-04-2013 08:28-0400 Pulse (Heart Rate) 77 /min Denisse Alvarado RN [facility] Work Phone: Comment on above: Pattern: Regular 11-04-2013 08:28-0400 Pulse Oximetry 95 % Catherine Garcia [facility] Work Phone: Comment on above: Room air 11-04-2013 08:28-0400 Respiratory Rate 18 /min Denisse Alvarado RN [facility] Work Phone: Comment on above: Pattern: Unlabored 11-04-2013 08:28-0400 SaO2% (BldA) [Mass fraction] 95 % Denisse Alvarado RN [facility]; [facility] Work Phone: 11-04-2013 08:28-0400 Weight 92.22 kg Catherine Jose [facility] Work Phone: 06-05-2013 10:52-0400 BMI (Body Mass Index) 28.46 kg/m2 Catherine Kosan [facility] Work Phone: 06-05-2013 10:52-0400 Body Temperature 98.8 [degF] Catherine Garcia [facility] Work Phone: Comment on above: Method: Oral 06-05-2013 10:52-0400 Body weight 92.56 kg Catherine Garcia [facility] Work Phone: 06-05-2013 10:52-0400 BP Diastolic 70 mm[Hg] Catherine Garcia [facility] Work Phone: Comment on above: Patient Position: Sitting; Cuff Location : Left Arm; Cuff Size: Standard 06-05-2013 10:52-0400 BP Systolic 120 mm[Hg] Catherine Garcia [facility] Work Phone: Comment on above: Patient Position: Sitting; Cuff Location : Left Arm; Cuff Size: Standard 06-05-2013 10:52-0400 BSA (Body Surface Area) 2.13 m2 Catherine Garcia [facility] Work Phone: 06-05-2013 10:52-0400 Height 180.34 cm Catherine Garcia [facility] Work Phone: 06-05-2013 10:52-0400 Pulse (Heart Rate) 84 /min Catherine Garcia [facility] Work Phone: Comment on above: Pattern: Regular 06-05-2013 10:52-0400 Pulse Oximetry 98 % Catherine Garcia [facility] Work Phone: Comment on above: Room air 06-05-2013 10:52-0400 Respiratory Rate 18 /min Catherine Garcia [facility] Work Phone: 06-05-2013 10:52-0400 SaO2% (BldA) [Mass fraction] 98 % Catherine Garcia DO Work Phone: [facility]; [facility] Work Phone: 06-05-2013 10:52-0400 Weight 92.56 kg Catherine Garcia [facility] Work Phone: 11-03-2012 10:20-0400 BMI (Body Mass Index) 28.46 kg/m2 Denisse Alvarado RN [facility] Work Phone: 11-03-2012 10:20-0400 Body weight 92.56 kg Denisse Alvarado RN [facility] Work Phone: 11-03-2012 10:20-0400 BP Diastolic 68 mm[Hg] Denisse Alvarado RN [facility] Work Phone: Comment on above: Patient Position: Sitting; Cuff Location : Left Arm; Cuff Size: Large 11-03-2012 10:20-0400 BP Systolic 118 mm[Hg] Denisse Alvarado RN [facility] Work Phone: Comment on above: Patient Position: Sitting; Cuff Location : Left Arm; Cuff Size: Large 11-03-2012 10:20-0400 BSA (Body Surface Area) 2.13 m2 Denisse Alvarado RN [facility] Work Phone: 11-03-2012 10:20-0400 Height 180.34 cm Denisse Alvarado RN [facility] Work Phone: 11-03-2012 10:20-0400 Pulse (Heart Rate) 80 /min Denisse Alvarado RN [facility] Work Phone: Comment on above: Pattern: Regular 11-03-2012 10:20-0400 Respiratory Rate 20 /min Denisse Alvarado RN [facility] Work Phone: Comment on above: Pattern: Unlabored 11-03-2012 10:20-0400 Weight 92.56 kg Catherine Garcia [facility] Work Phone: 10-21-2012 14:05-0500 BMI (Body Mass Index) 28.18 kg/m2 Catherine Garcia [facility] Work Phone: 10-21-2012 14:05-0500 Body Temperature 98.2 [degF] Catherine Garcia [facility] Work Phone: Comment on above: Method: Oral 10-21-2012 14:05-0500 Body weight 91.66 kg Catherine Garcia [facility] Work Phone: 10-21-2012 14:05-0500 BP Diastolic 84 mm[Hg] Catherine Garcia [facility] Work Phone: Comment on above: Patient Position: Sitting; Cuff Location : Left Arm; Cuff Size: Standard 10-21-2012 14:05-0500 BP Systolic 144 mm[Hg] Catherine Garcia [facility] Work Phone: Comment on above: Patient Position: Sitting; Cuff Location : Left Arm; Cuff Size: Standard 10-21-2012 14:05-0500 BSA (Body Surface Area) 2.12 m2 Catherine Garcia [facility] Work Phone: 10-21-2012 14:05-0500 Height 180.34 cm Catherine Garcia [facility] Work Phone: 10-21-2012 14:05-0500 Pulse (Heart Rate) 76 /min Catherine Garcia [facility] Work Phone: Comment on above: Pattern: Regular 10-21-2012 14:05-0500 Pulse Oximetry 96 % Catherine Garcia [facility] Work Phone: Comment on above: Room air 10-21-2012 14:05-0500 Respiratory Rate 17 /min Catherine Garcia [facility] Work Phone: 10-21-2012 14:05-0500 SaO2% (BldA) [Mass fraction] 96 % Catherine Garcia DO Work Phone: [facility]; [facility] Work Phone: 10-21-2012 14:05-0500 Weight 91.66 kg Catherine Garcia [facility] Work Phone: 2012 08:08-0400 BMI (Body Mass Index) 28.18 kg/m2 Denisse Alvarado RN [facility] Work Phone: 2012 08:08-0400 Body Temperature 97.9 [degF] Denisse Alvarado RN [facility] Work Phone: Comment on above: Method: Oral 2012 08:08-0400 Body weight 91.66 kg Denisse Alvarado RN [facility] Work Phone: 2012 08:08-0400 BP Diastolic 80 mm[Hg] Denisse Alvarado RN [facility] Work Phone: Comment on above: Patient Position: Sitting; Cuff Location : Left Arm; Cuff Size: Standard 2012 08:08-0400 BP Systolic 122 mm[Hg] Denisse Alvarado RN [facility] Work Phone: Comment on above: Patient Position: Sitting; Cuff Location : Left Arm; Cuff Size: Standard 2012 08:08-0400 BSA (Body Surface Area) 2.12 m2 Denisse Alvarado RN [facility] Work Phone: 2012 08:08-0400 Height 180.34 cm eDnisse Alvarado RN [facility] Work Phone: 2012 08:08-0400 Pulse (Heart Rate) 60 /min Denisse Alvarado RN [facility] Work Phone: Comment on above: Pattern: Regular 2012 08:08-0400 Respiratory Rate 18 /min Denisse Alvarado RN [facility] Work Phone: Comment on above: Pattern: Unlabored 2012 08:08-0400 Weight 91.66 kg Catherine Bravoon [facility] Work Phone: 04-24-2012 10:28-0400 BP Diastolic 88 mm[Hg] Catherinecolumba Bravoon [facility] Work Phone: Comment on above: Patient Position: Sitting; Cuff Location : Left Arm; Cuff Size: Standard Did not take bp meds this am. 04-24-2012 10:28-0400 BP Systolic 138 mm[Hg] Catherinecolumba Bravoon [facility] Work Phone: Comment on above: Patient Position: Sitting; Cuff Location : Left Arm; Cuff Size: Standard Did not take bp meds this am. 04-24-2012 09:17-0400 BMI (Body Mass Index) 28.18 kg/m2 Denisse Alvarado RN [facility] Work Phone: Comment on above: hearing wnlvision with correction ou=20/ 30 os=20/30 od= 20/50 04-24-2012 09:17-0400 Body Temperature 96.7 [degF] Denisse Alvarado RN [facility] Work Phone: Comment on above: Method: Oral hearing wnlvision wi th correction ou=20/30 os=20/30 od= 20/50 04-24-2012 09:17-0400 Body weight 91.66 kg Denisse Alvarado RN [facility] Work Phone: Comment on above: hearing wnlvision with correction ou=20/ 30 os=20/30 od= 20/50 04-24-2012 09:17-0400 BP Diastolic 102 mm[Hg] Denisse Alvarado RN [facility] Work Phone: Comment on above: Patient Position: Sitting; Cuff Location : Left Arm; Cuff Size: Large hearing wnlvision wi th correction ou=20/30 os=20/30 od= 20/50 04-24-2012 09:17-0400 BP Systolic 178 mm[Hg] Denisse Alvarado RN [facility] Work Phone: Comment on above: Patient Position: Sitting; Cuff Location : Left Arm; Cuff Size: Large hearing wnlvision wi th correction ou=20/30 os=20/30 od= 20/50 04-24-2012 09:17-0400 BSA (Body Surface Area) 2.12 m2 Denisse Alvarado RN [facility] Work Phone: Comment on above: hearing wnlvision with correction ou=20/ 30 os=20/30 od= 20/50 04-24-2012 09:17-0400 Height 180.34 cm Denisse Alvarado RN [facility] Work Phone: Comment on above: hearing wnlvision with correction ou=20/ 30 os=20/30 od= 20/50 04-24-2012 09:17-0400 Pulse (Heart Rate) 76 /min Denisse Alvarado RN [facility] Work Phone: Comment on above: Pattern: Regular hearing wnlvision wi th correction ou=20/30 os=20/30 od= 20/50 04-24-2012 09:17-0400 Respiratory Rate 20 /min Denisse Alvarado RN [facility] Work Phone: Comment on above: Pattern: Unlabored hearing wnlvision wi th correction ou=20/30 os=20/30 od= 2050 04-24-2012 09:17-0400 Weight 91.66 kg Catherine Garcia [facility] Work Phone: Comment on above: hearing wnlvision with correction ou=20/ 30 os=20/30 od= 20/50 10-03-2011 11:21-0500 BMI (Body Mass Index) 29.02 kg/m2 Denisse Alvarado RN [facility] Work Phone: 10-03-2011 11:21-0500 Body Temperature 97.8 [degF] Denisse Alvarado RN [facility] Work Phone: Comment on above: Method: Oral 10-03-2011 11:21-0500 Body weight 94.38 kg Denisse Alvarado RN [facility] Work Phone: 10-03-2011 11:21-0500 BP Diastolic 100 mm[Hg] Denisse Alvarado RN [facility] Work Phone: Comment on above: Patient Position: Sitting; Cuff Location : Left Arm; Cuff Size: Large 10-03-2011 11:21-0500 BP Systolic 142 mm[Hg] Denisse Alvarado RN [facility] Work Phone: Comment on above: Patient Position: Sitting; Cuff Location : Left Arm; Cuff Size: Large 10-03-2011 11:21-0500 BSA (Body Surface Area) 2.14 m2 Denisse Alvarado RN [facility] Work Phone: 10-03-2011 11:21-0500 Height 180.34 cm Denisse Alvarado RN [facility] Work Phone: 10-03-2011 11:21-0500 Pulse (Heart Rate) 68 /min Denisse Alvarado RN [facility] Work Phone: Comment on above: Pattern: Regular 10-03-2011 11:21-0500 Respiratory Rate 18 /min Denisse Alvarado RN [facility] Work Phone: Comment on above: Pattern: Unlabored 10-03-2011 11:21-0500 Weight 94.38 kg Catherine Garcia [facility] Work Phone: 05-16-2010 10:50-0400 BMI (Body Mass Index) 29.16 kg/m2 Fidelina Waters RN [facility] Work Phone: 05-16-2010 10:50-0400 Body weight 94.83 kg Fidelina Waters RN [facility] Work Phone: 05-16-2010 10:50-0400 BSA (Body Surface Area) 2.15 m2 Fidelina Waters RN [facility] Work Phone: 05-16-2010 10:50-0400 Height 180.34 cm Fidelina Waters RN [facility] Work Phone: 05-16-2010 10:50-0400 Pulse (Heart Rate) 68 /min Fidelina Waters RN [facility] Work Phone: Comment on above: Pattern: Regular 05-16-2010 10:50-0400 Respiratory Rate 14 /min Fidelina Waters RN [facility] Work Phone: Comment on above: Pattern: Unlabored 05-16-2010 10:50-0400 Weight 94.83 kg Catherine Garcia [facility] Work Phone: 05-04-2010 08:52-0400 BMI (Body Mass Index) 29.16 kg/m2 Denisse Alvarado RN [facility] Work Phone: 05-04-2010 08:52-0400 Body weight 94.83 kg Denisse Alvarado RN [facility] Work Phone: 05-04-2010 08:52-0400 BP Diastolic 82 mm[Hg] Denisse Alvarado RN [facility] Work Phone: Comment on above: Patient Position: Sitting; Cuff Location : Left Arm; Cuff Size: Large 05-04-2010 08:52-0400 BP Systolic 138 mm[Hg] Denisse Alvarado RN [facility] Work Phone: Comment on above: Patient Position: Sitting; Cuff Location : Left Arm; Cuff Size: Large 05-04-2010 08:52-0400 BSA (Body Surface Area) 2.15 m2 Denisse Alvarado RN [facility] Work Phone: 05-04-2010 08:52-0400 Height 180.34 cm Denisse Alvarado RN [facility] Work Phone: 05-04-2010 08:52-0400 Pulse (Heart Rate) 76 /min Denisse Alvarado RN [facility] Work Phone: Comment on above: Pattern: Regular 05-04-2010 08:52-0400 Respiratory Rate 20 /min Denisse Alvarado RN [facility] Work Phone: Comment on above: Pattern: Unlabored 05-04-2010 08:52-0400 Weight 94.83 kg Catherine Garcia [facility] Work Phone: 10-17-2009 13:08-0500 BMI (Body Mass Index) 29.08 kg/m2 Denisse Alvarado RN [facility] Work Phone: 10-17-2009 13:08-0500 Body weight 94.58 kg Denisse Alvarado RN [facility] Work Phone: 10-17-2009 13:08-0500 BP Diastolic 78 mm[Hg] Denisse Alvarado RN [facility] Work Phone: Comment on above: Patient Position: Sitting; Cuff Location : Left Arm; Cuff Size: Large 10-17-2009 13:08-0500 BP Systolic 124 mm[Hg] Denisse Alvarado RN [facility] Work Phone: Comment on above: Patient Position: Sitting; Cuff Location : Left Arm; Cuff Size: Large 10-17-2009 13:08-0500 BSA (Body Surface Area) 2.15 m2 Denisse Alvarado RN [facility] Work Phone: 10-17-2009 13:08-0500 Height 180.34 cm Denisse Alvarado RN [facility] Work Phone: 10-17-2009 13:08-0500 Pulse (Heart Rate) 72 /min Denisse Alvarado RN [facility] Work Phone: Comment on above: Pattern: Regular 10-17-2009 13:08-0500 Respiratory Rate 20 /min Denisse Alvarado RN [facility] Work Phone: Comment on above: Pattern: Unlabored 10-17-2009 13:08-0500 Weight 94.58 kg Catherine Garcia [facility] Work Phone: 09-13-2009 09:24-0500 BMI (Body Mass Index) 29.08 kg/m2 Denisse Alvarado RN [facility] Work Phone: 09-13-2009 09:24-0500 Body weight 94.58 kg Denisse Alvarado RN [facility] Work Phone: 09-13-2009 09:24-0500 BP Diastolic 82 mm[Hg] Denisse Alvarado RN [facility] Work Phone: Comment on above: Patient Position: Sitting; Cuff Location : Left Arm; Cuff Size: Large 09-13-2009 09:24-0500 BP Systolic 138 mm[Hg] Denisse Alvarado RN [facility] Work Phone: Comment on above: Patient Position: Sitting; Cuff Location : Left Arm; Cuff Size: Large 09-13-2009 09:24-0500 BSA (Body Surface Area) 2.15 m2 Denisse Alvarado RN [facility] Work Phone: 09-13-2009 09:24-0500 Height 180.34 cm Denisse Alvarado RN [facility] Work Phone: 09-13-2009 09:24-0500 Pulse (Heart Rate) 68 /min Denisse Alvarado RN [facility] Work Phone: Comment on above: Pattern: Regular 09-13-2009 09:24-0500 Respiratory Rate 20 /min Denisse Alvarado RN [facility] Work Phone: Comment on above: Pattern: Unlabored 09-13-2009 09:24-0500 Weight 94.58 kg Catherine Garcia [facility] Work Phone: 08-09-2009 10:35-0500 Body Temperature 96.2 [degF] Kimberly Loya [facility] Work Phone: Comment on above: Method: Undefined 08-09-2009 10:35-0500 Body weight 0 kg Kimberly Loya [facility] Work Phone: 08-09-2009 10:35-0500 BP Diastolic 74 mm[Hg] Kimberly Romejordanjayashree [facility] Work Phone: Comment on above: Patient Position: Sitting; Cuff Location : Left Arm; Cuff Size: Large 08-09-2009 10:35-0500 BP Systolic 122 mm[Hg] Kimberly Romecarlito [facility] Work Phone: Comment on above: Patient Position: Sitting; Cuff Location : Left Arm; Cuff Size: Large 08-09-2009 10:35-0500 Head Circumference 0 cm Catherine Garcia [facility] Work Phone: 08-09-2009 10:35-0500 Head Occipital-frontal circumference 0 cm Kimberly Vincenzo [facility]; [facility] Work Phone: 08-09-2009 10:35-0500 Height 0 cm Kimberly Vincenzo [facility] Work Phone: 08-09-2009 10:35-0500 Pulse (Heart Rate) 62 /min [facility] Work [facility]: Comment on above: Pattern: Regular 08-09-2009 10:35-0500 Respiratory Rate 18 /min Kimberly Romecarlito [facility] Work Phone: Comment on above: Pattern: Undefined 08-09-2009 10:35-0500 Weight 0 kg Catherine Garcia [facility] Work Phone: 08-03-2009 14:29-0500 Body Temperature 97 [degF] Kimberly Romecarlito [facility] Work Phone: Comment on above: Method: Undefined 08-03-2009 14:29-0500 Body weight 0 kg Kimberly Vincenzo [facility] Work Phone: 08-03-2009 14:29-0500 BP Diastolic 100 mm[Hg] Kimberly Vincenzo [facility] Work Phone: Comment on above: Patient Position: Sitting; Cuff Location : Left Arm; Cuff Size: Standard 08-03-2009 14:29-0500 BP Systolic 146 mm[Hg] Kimberly Romecarlito [facility] Work Phone: Comment on above: Patient Position: Sitting; Cuff Location : Left Arm; Cuff Size: Standard 08-03-2009 14:29-0500 Head Circumference 0 cm Catherine Garcia [facility] Work Phone: 08-03-2009 14:29-0500 Head Occipital-frontal circumference 0 cm Kimberly Vincenzo [facility]; [facility] Work Phone: 08-03-2009 14:29-0500 Height 0 cm Kimberly Romecarlito [facility] Work Phone: 08-03-2009 14:29-0500 Pulse (Heart Rate) 84 /min Kimberly Dyejayashree [facility] Work Phone: Comment on above: Pattern: Regular 08-03-2009 14:29-0500 Respiratory Rate 16 /min Kimberly Vincenzo [facility] Work Phone: Comment on above: Pattern: Undefined 08-03-2009 14:29-0500 Weight 0 kg Catherine Garcia [facility] Work Phone: 05-24-2009 13:03-0400 BMI (Body Mass Index) 29.08 kg/m2 Buffy [facility] Work Phone: 05-24-2009 13:03-0400 Body weight 94.58 kg [facility] Work Phone: 05-24-2009 13:03-0400 BP Diastolic 80 mm[Hg] [facility] Work Phone: Comment on above: Patient Position: Supine; Cuff Location: Left Arm; Cuff Size: Standard 05-24-2009 13:03-0400 BP Systolic 150 mm[Hg] [facility] Work Phone: Comment on above: Patient Position: Supine; Cuff Location: Left Arm; Cuff Size: Standard 05-24-2009 13:03-0400 BSA (Body Surface Area) 2.15 m2 [facility] Work Phone: 05-24-2009 13:03-0400 Head Circumference 0 cm Catherine Garcia [facility] Work Phone: 05-24-2009 13:03-0400 Head Occipital-frontal circumference 0 cm Buffy Gu [facility]: 05-24-2009 13:03-0400 Height 180.34 cm Buffy [facility] Work Phone: 05-24-2009 13:03-0400 Pulse (Heart Rate) 60 /min Buffy [facility] Work Phone: Comment on above: Pattern: Regular 05-24-2009 13:03-0400 Respiratory Rate 16 /min Buffy [facility] Work Phone: Comment on above: Pattern: Unlabored 05-24-2009 13:03-0400 Weight 94.58 kg Catherine Garcia [facility] Work Phone: 02-22-2009 09:29-0400 BMI (Body Mass Index) 28.03 kg/m2 Buffy Gu [facility] Work Phone: 02-22-2009 09:29-0400 Body weight 91.17 kg Buffy [facility] Work Phone: 02-22-2009 09:29-0400 BP Diastolic 72 mm[Hg] Buffy [facility] Work Phone: Comment on above: Patient Position: Supine; Cuff Location: Left Arm; Cuff Size: Standard 02-22-2009 09:29-0400 BP Systolic 130 mm[Hg] Buffy [facility] Work Phone: Comment on above: Patient Position: Supine; Cuff Location: Left Arm; Cuff Size: Standard 02-22-2009 09:29-0400 BSA (Body Surface Area) 2.11 m2 Buffy [facility] Work Phone: 02-22-2009 09:29-0400 Head Circumference 0 cm [facility] Work Phone: 02-22-2009 09:29-0400 Head Occipital-frontal circumference 0 cm Buffy [facility]; [facility] Work Phone: 02-22-2009 09:29-0400 Height 180.34 cm Buffy [facility] Work Phone: 02-22-2009 09:29-0400 Pulse (Heart Rate) 60 /min Buffy [facility] Work Phone: Comment on above: Pattern: Regular 02-22-2009 09:29-0400 Respiratory Rate 16 /min Buffy [facility] Work Phone: Comment on above: Pattern: Unlabored 02-22-2009 09:29-0400 Weight 91.17 kg Catherine Garcia [facility] Medicine Work Phone: 02-08-2009 15:16-0400 Body Temperature 98.9 [degF] [facility] Internal [facility] Work Phone: Comment on above: Method: Oral 02-08-2009 15:16-0400 Body weight 91.17 kg [facility] Work Phone: 02-08-2009 15:16-0400 BP Diastolic 80 mm[Hg] [facility] Work Phone: Comment on above: Patient Position: Sitting; Cuff Location : Left Arm; Cuff Size: Large 02-08-2009 15:16-0400 BP Systolic 118 mm[Hg] [facility] Work Phone: Comment on above: Patient Position: Sitting; Cuff Location : Left Arm; Cuff Size: Large 02-08-2009 15:16-0400 Head Circumference 0 cm Catherine Garcia [facility] Work Phone: 02-08-2009 15:16-0400 Head Occipital-frontal circumference 0 cm [facility]; [facility] Work Phone: 02-08-2009 15:16-0400 Height 0 cm [facility] Work Phone: 02-08-2009 15:16-0400 Pulse (Heart Rate) 70 /min [facility] Work Phone: Comment on above: Pattern: Regular 02-08-2009 15:16-0400 Respiratory Rate 18 /min Lolita [facility] Work Phone: Comment on above: Pattern: Unlabored 02-08-2009 15:16-0400 Weight 91.17 kg Catherine Garcia [facility] Work Phone: 01-12-2009 15:26-0400 BMI (Body Mass Index) 28.05 kg/m2 [facility] Work Phone: 01-12-2009 15:26-0400 Body Temperature 98.4 [degF] Lolita [facility] Work Phone: Comment on above: Method: Oral 01-12-2009 15:26-0400 Body weight 91.23 kg Lolita [facility] Work Phone: 01-12-2009 15:26-0400 BP Diastolic 80 mm[Hg] [facility] Work Phone: Comment on above: Patient Position: Sitting; Cuff Location : Left Arm; Cuff Size: Standard 01-12-2009 15:26-0400 BP Systolic 122 mm[Hg] Lolita [facility] Medicine Work Phone: Comment on above: Patient Position: Sitting; Cuff Location : Left Arm; Cuff Size: Standard 01-12-2009 15:26-0400 BSA (Body Surface Area) 2.11 m2 Lolita [facility] Work Phone: 01-12-2009 15:26-0400 Head Circumference 0 cm Catherine Garcia [facility] Medicine Work Phone: 01-12-2009 15:26-0400 Head Occipital-frontal circumference 0 cm Lolita [facility]; [facility] Internal Medicine Work Phone: 01-12-2009 15:26-0400 Height 180.34 cm Lolita [facility] Medicine Work Phone: 01-12-2009 15:26-0400 Pulse (Heart Rate) 92 /min [facility] Medicine Work Phone: Comment on above: Pattern: Regular 01-12-2009 15:26-0400 Respiratory Rate 18 /min Lolita Stephenson [facility] Internal Medicine Work Phone: Comment on above: Pattern: Unlabored 01-12-2009 15:26-0400 Weight 91.23 kg Catherine Garcia [facility] Internal Medicine Work Phone: 01-10-2009 15:16-0400 BMI (Body Mass Index) 28.05 kg/m2 Buffy Gu [facility] Internal Medicine Work Phone: 01-10-2009 15:16-0400 Body Temperature 98.1 [degF] Buffy [facility] Internal Medicine Work Phone: Comment on above: Method: Oral 01-10-2009 15:16-0400 Body weight 91.23 kg Buffy [facility] Internal Medicine Work Phone: 01-10-2009 15:16-0400 BP Diastolic 72 mm[Hg] [facility] Work Phone: Comment on above: Patient Position: Supine; Cuff Location: Left Arm; Cuff Size: Standard 01-10-2009 15:16-0400 BP Systolic 132 mm[Hg] [facility] Internal Medicine Work Phone: Comment on above: Patient Position: Supine; Cuff Location: Left Arm; Cuff Size: Standard 01-10-2009 15:16-0400 BSA (Body Surface Area) 2.11 m2 Buffy [facility] Internal Medicine Work Phone: 01-10-2009 15:16-0400 Head Circumference 0 cm Catehrine Garcia [facility] Internal Medicine Work Phone: 01-10-2009 15:16-0400 Head Occipital-frontal circumference 0 cm Buffy [facility]; [facility] Work Phone: 01-10-2009 15:16-0400 Height 180.34 cm [facility] Internal Medicine Work Phone: 01-10-2009 15:16-0400 Pulse (Heart Rate) 80 /min [facility] Work Phone: Comment on above: Pattern: Regular 01-10-2009 15:16-0400 Respiratory Rate 16 /min Buffy Gu [facility] Medicine Work Phone: Comment on above: Pattern: Unlabored 01-10-2009 15:16-0400 Weight 91.23 kg Catherine Garcia [facility] Internal Medicine Work Phone: 07-13-2008 13:02-0500 Body Temperature 98.7 [degF] Lolita [facility] Internal Medicine Work Phone: Comment on above: Method: Oral 07-13-2008 13:02-0500 Body weight 91.23 kg Lolita [facility] Work Phone: 07-13-2008 13:02-0500 BP Diastolic 82 mm[Hg] Lolita [facility] Work Phone: Comment on above: Patient Position: Sitting; Cuff Location : Left Arm; Cuff Size: Standard 07-13-2008 13:02-0500 BP Systolic 118 mm[Hg] Lolita [facility] Medicine Work Phone: Comment on above: Patient Position: Sitting; Cuff Location : Left Arm; Cuff Size: Standard 07-13-2008 13:02-0500 Head Circumference 0 cm Catherine Garcia [facility] Medicine Work Phone: 07-13-2008 13:02-0500 Head Occipital-frontal circumference 0 cm Lolita [facility]; [facility] Work Phone: 07-13-2008 13:02-0500 Height 0 cm Lolita [facility] Medicine Work Phone: 07-13-2008 13:02-0500 Pulse (Heart Rate) 94 /min Lolita [facility] Work Phone: Comment on above: Pattern: Regular 07-13-2008 13:02-0500 Pulse Oximetry 96 % Catherine Garcia [facility] Medicine Work Phone: Comment on above: Room air 07-13-2008 13:02-0500 Respiratory Rate 18 /min Lolita [facility] Work Phone: Comment on above: Pattern: Unlabored 07-13-2008 13:02-0500 SaO2% (BldA) [Mass fraction] 96 % Lolita Sachin [facility]; [facility] Work Phone: 07-13-2008 13:02-0500 Weight 91.23 kg Catherine Garcia [facility] Work Phone: 04-14-2007 16:08-0400 Body Temperature 98.5 [degF] AGGIE Shaffer [employer] [facility] Work Phone: Comment on above: Method: Oral 04-14-2007 16:08-0400 Body weight 0 kg AGGIE Shaffer [employer] [facility] Medicine Work Phone: 04-14-2007 16:08-0400 BP Diastolic 76 mm[Hg] AGGIE Shaffer [employer] [facility] Work Phone: Comment on above: Patient Position: Sitting; Cuff Location : Left Arm; Cuff Size: Standard 04-14-2007 16:08-0400 BP Systolic 120 mm[Hg] AGGIE Shaffer [facility] Work Phone: Comment on above: Patient Position: Sitting; Cuff Location : Left Arm; Cuff Size: Standard 04-14-2007 16:08-0400 Head Circumference 0 cm Catherine Garcia [facility] Work Phone: 04-14-2007 16:08-0400 Head Occipital-frontal circumference 0 cm AGGIE Shaffer [employer] [facility]; [facility] Work Phone: 04-14-2007 16:08-0400 Height 0 cm AGGIE Shaffer [employer] [facility] Work Phone: 04-14-2007 16:08-0400 Pulse (Heart Rate) 70 /min AGGIE Shaffer [employer] [facility] Medicine Work Phone: Comment on above: Pattern: Regular 04-14-2007 16:08-0400 Respiratory Rate 20 /min AGGIE Shaffer [employer] [facility] Work Phone: Comment on above: Pattern: Unlabored 04-14-2007 16:08-0400 Weight 0 kg Catherine Garcia [facility] Medicine Work Phone: 10-21-2006 14:57-0500 BMI (Body Mass Index) 27.09 kg/m2 Catherine Kosan [facility] Internal Medicine Work Phone: 10-21-2006 14:57-0500 Body Temperature 98.1 [degF] Catherine Garcia [facility] Medicine Work Phone: Comment on above: Method: Undefined 10-21-2006 14:57-0500 Body weight 89.36 kg Catherine Garcia [facility] Medicine Work Phone: 10-21-2006 14:57-0500 BP Diastolic 70 mm[Hg] Catherine Garcia [facility] Work Phone: Comment on above: Patient Position: Undefined; Cuff Locati on: Undefined; Cuff Size: Undefined 10-21-2006 14:57-0500 BP Systolic 124 mm[Hg] Catherine Garcia [facility] Medicine Work Phone: Comment on above: Patient Position: Undefined; Cuff Locati on: Undefined; Cuff Size: Undefined 10-21-2006 14:57-0500 BSA (Body Surface Area) 2.11 m2 Catherine Garcia [facility] Medicine Work Phone: 10-21-2006 14:57-0500 Head Circumference 0 cm Catherine Garcia [facility] Work Phone: 10-21-2006 14:57-0500 Head Occipital-frontal circumference 0 cm Catherine Garcia DO Work Phone: [facility]; [facility] Work Phone: 10-21-2006 14:57-0500 Height 181.61 cm Catherine Garcia [facility] Work Phone: 10-21-2006 14:57-0500 Pulse (Heart Rate) 72 /min Catherine Garcia [facility] Work Phone: Comment on above: Pattern: Regular 10-21-2006 14:57-0500 Respiratory Rate 16 /min Catherine Garcia [facility] Work Phone: Comment on above: Pattern: Undefined 10-21-2006 14:570500 Weight 89.36 kg Catherine Garcia [facility] Work Phone: Encounters Encounter Date Encounter Type Care Provider Facility Start: 06-08-2025 End: 06-08-2025 Patient encounter procedure Evangelist Garima Murray [facility] Work Phone: Start: 06-08-2025 End: 06-08-2025 ambulatory Catherine Garcia Facility:[facility] Start: 12-21-2024 End: 12-21-2024 ambulatory Catherine Jose [facility] Start: 08-27-2024 End: 08-27-2024 ambulatory Ricki Shantanu Facility:[facility] Start: 11-18-2023 End: 11-18-[address] SAMMY CASTRO MD Facility:[facility] Start: 11-18-2023 End: 11-18-[address] SAMMY CASTRO MD [facility] Start: 06-26-2023 Non-patient / Non-visit Dr. Bhakti Garcia Work Phone: [facility] Work Phone: Start: 06-25-2023 Non-patient / Non-visit Dr. Bhakti Garcia Work Phone: [facility] Start: 06-25-2023 End: 06-25-[address] Catherine Garcia Work Phone: [facility] Work Phone: Start: 06-25-2023 End: 06-25-[address] Catherine [facility] Start: 06-06-2023 End: 06-06-[address] Catherine Garcia Work Phone: [facility] Work Phone: Start: 02-13-2023 End: 02-13-2023 Catherine Jose DO Work Phone: [facility] Start: 11-15-2022 End: 11-15-2022 Patient encounter procedure Robert Howe [facility] Start: 11-05-2022 ambulatory Catherine Jose DO [facility] Start: 07-30-2022 End: 07-30-2022 Office outpatient visit 10 minutes Catherine Jose DO Work Phone: [facility] Start: 05-15-2022 End: 05-15-2022 Office outpatient visit 15 minutes Catherine Jose DO Work Phone: [facility] Start: 02-06-2022 Non-patient / Non-visit Dr. Bhakti Garcia Work Phone: [facility] Start: 02-06-2022 End: 02-06-[address] Catherine Garcia Work Phone: [facility] Start: 01-09-2022 End: 01-09-[address] Catherine Garcia Work Phone: [facility] Start: 12-28-2021 End: 12-28-2021 Patient encounter procedure Keke Mike [facility]; [facility] Work Phone: Start: 12-28-2021 End: 12-28-2021 Periodic preventive med est patient 65yrs& older Catherine Jose DO Work Phone: [facility] Start: 11-15-2021 End: 11-15-2021 Office outpatient visit 10 minutes Catherine Jose DO Work Phone: [facility] Start: 11-13-2021 End: 11-13-2021 Catherine Jose DO Work Phone: [facility] Start: 10-31-2021 End: 10-31-[address] Catherine Garcia Work Phone: [facility]-Laboratory, Specimen Start: 07-11-2021 End: 07-11-2021 Office outpatient visit 15 minutes Catherine Garcia DO Work Phone: [facility] Start: 07-03-2021 End: 07-03-2021 Office outpatient visit 15 minutes Catherine Garcia DO Work Phone: [facility] Start: 12-15-2020 End: 12-16-2020 Office outpatient visit 15 minutes Catherine Garcia DO Work Phone: [facility] Start: 08-03-2020 Review Catherine Garcia [facility] Start: 08-03-2020 End: 08-03-2020 Periodic preventive med est patient 65yrs& older Catherinecolumba Bravoon [facility] Start: 08-03-2020 End: 08-03-2020 Physical examination Catherine Garcia DO Work Phone: [facility] Start: 06-24-2020 End: 06-24-2020 Office outpatient visit 25 minutes Catherine Garcia [facility] Start: 06-24-2020 Review Catherine Garcia [facility] Start: 07-14-2019 End: 07-14-2019 Office outpatient visit 15 minutes Catherine Garcia [facility] Start: 07-02-2019 End: 07-02-2019 Office outpatient visit 15 minutes Catherine Garcia [facility] Start: 06-11-2019 End: 06-11-2019 Office outpatient visit 5 minutes Catherine Garcia [facility] Start: 06-11-2019 Review Catherine Garcia [facility] Start: 04-30-2019 End: 04-30-2019 Office outpatient visit 25 minutes Catherine Garcia [facility] Start: 04-30-2019 Review Catherine Garcia [facility] Start: 12-23-2018 End: 12-23-2018 Office outpatient visit 10 minutes Catherine Jose [facility] Start: 12-19-2018 End: 12-19-2018 Office outpatient visit 10 minutes Catherine Garcia [facility] Start: 12-04-2018 End: 12-04-2018 Patient encounter procedure Catherine Garcia DO Work Phone: [facility] Start: 12-04-2018 End: 12-04-2018 Periodic preventive med est patient 65yrs& older Catherine Garcia [facility] Start: 11-27-2018 End: 11-27-2018 Office outpatient visit 10 minutes Catherine [facility] Start: 08-28-2018 End: 08-28-2018 Office outpatient visit 25 minutes Catherine Garcia [facility] Start: 06-12-2018 End: 06-12-2018 Office outpatient visit 15 minutes Catherine Garcia [facility] Start: 04-25-2018 End: 04-25-2018 Office outpatient visit 10 minutes Catherine Garcia [facility] Start: 04-17-2018 End: 04-17-2018 Office outpatient visit 25 minutes Catherine Garcia [facility] Start: 02-20-2018 End: 02-20-2018 Office outpatient visit 5 minutes Catherine [facility] Start: 01-23-2018 End: 01-23-2018 Office outpatient visit 5 minutes Catherine Garcia [facility] Start: 01-16-2018 End: 01-16-2018 Office outpatient visit 5 minutes Catherine Garcia [facility] Start: 01-09-2018 End: 01-09-2018 Office outpatient visit 5 minutes Catherine Garcia [facility] Start: 12-26-2017 End: 12-26-2017 Office outpatient visit 5 minutes Catherine Garcia [facility] Start: 12-19-2017 End: 12-19-2017 Office outpatient visit 25 minutes Catherine Garcia [facility] Start: 11-27-2017 End: 11-27-2017 Patient encounter procedure Catherine Jose DO Work Phone: [facility] Start: 11-27-2017 End: 11-27-2017 Periodic preventive med est patient 65yrs& older Catherine Garcia [facility] Start: 11-14-2017 End: 11-14-2017 Office outpatient visit 15 minutes Catherine [facility] Start: 11-05-2017 End: 11-05-2017 Office outpatient visit 15 minutes Catherine Garcia [facility] Start: 08-27-2017 End: 08-27-2017 Office outpatient visit 15 minutes Catherine Garcia [facility] Start: 10-11-2016 End: 10-11-2016 Office outpatient visit 15 minutes Catherine Garcia [facility] Start: 07-17-2016 End: 07-17-2016 Office outpatient visit 15 minutes Catherine Jose [facility] Start: 06-01-2016 End: 06-01-2016 Office outpatient visit 25 minutes Catherine Jose [facility] Start: 06-01-2016 End: 06-01-2016 Preprocedural examination done Catherine Garcia DO Work Phone: [facility] Start: 04-05-2016 End: 04-05-2016 Office outpatient visit 15 minutes Catherine Garcia [facility] Start: 12-29-2015 End: 12-29-2015 Office outpatient visit 25 minutes Catherine Jose [facility] Start: 09-26-2015 End: 09-26-2015 Office outpatient visit 25 minutes Catherine Jose [facility] Start: 09-26-2015 End: 09-26-2015 Historical Summary Catherine Garcia [facility] Start: 09-26-2015 End: 09-26-2015 Catherine Jose DO Work Phone: [facility] Start: 06-23-2015 End: 06-23-2015 Office outpatient visit 25 minutes Catherine Jose [facility] Start: 03-21-2015 End: 03-21-2015 Office outpatient new 10 minutes Catherine Jose [facility] Start: 12-07-2014 End: 12-07-2014 Office outpatient visit 25 minutes Catherine Jose [facility] Start: 12-07-2014 End: 12-07-2014 Preprocedural examination done Catherine Garcia DO Work Phone: [facility] Start: 06-08-2014 End: 06-08-2014 Phone Encounter Catherine Garcia [facility] Start: 06-08-2014 End: 06-08-2014 Catherine Garcia DO Work Phone: [facility] Start: 05-25-2014 End: 05-25-2014 Patient encounter procedure Catherine Garcia [facility] Start: 05-25-2014 End: 05-25-2014 Catherine Garcia DO Work Phone: [facility] Start: 05-25-2014 End: 05-25-2014 Office outpatient visit 25 minutes Catherine Garcia [facility] Start: 11-04-2013 End: 11-04-2013 Patient encounter procedure Catherine Garcia [facility] Start: 11-04-2013 End: 11-04-2013 Catherine Garcia DO Work Phone: [facility] Start: 06-05-2013 End: 06-05-2013 Office outpatient visit 15 minutes Catherine Garcia [facility] Start: 11-04-2012 End: 11-04-2012 Prescription Refill Catherine Garcia [facility] Start: 11-04-2012 End: 11-04-2012 Catherine Garcia DO Work Phone: [facility] Start: 11-03-2012 End: 11-03-2012 Patient encounter procedure Catherine Garcia [facility] Start: 11-03-2012 End: 11-03-2012 Catherine Garcia DO Work Phone: [facility] Start: 10-24-2012 End: 10-24-2012 Annotation/Addendum Catherine Garcia [facility] Start: 10-24-2012 End: 10-24-2012 Catherine Garcia DO Work Phone: [facility] Start: 10-21-2012 End: 10-21-2012 Annotation/Addendum Catherine Garcia [facility] Start: 10-21-2012 End: 10-21-2012 Catherine Garcia DO Work Phone: [facility] Start: 10-21-2012 End: 10-21-2012 Office outpatient visit 15 minutes Catherine Garcia [facility] Start: 05-12-2012 End: 05-12-2012 Phone Encounter Catherine Garcia [facility] Start: 05-12-2012 End: 05-12-2012 Catherine Garcia DO Work Phone: [facility] Start: 2012 End: 2012 Patient encounter procedure Catherine Garcia [facility] Start: 2012 End: 2012 Catherine Garcia DO Work Phone: [facility] Start: 04-24-2012 End: 04-24-2012 Patient encounter procedure Catherine Garcia [facility] Start: 04-24-2012 End: 04-24-2012 Catherine Garcia DO Work Phone: [facility] Start: 10-03-2011 End: 10-03-2011 Patient encounter procedure Catherine Garcia [facility] Start: 10-03-2011 End: 10-03-2011 Catherine Garcia DO Work Phone: [facility] Start: 08-21-2010 End: 08-21-2010 Patient encounter procedure Catherine Garcia [facility] Start: 08-21-2010 End: 08-21-2010 Catherine Garcia DO Work Phone: [facility] Start: 07-24-2010 End: 07-24-2010 Phone Encounter Catherine Garcia [facility] Start: 07-24-2010 End: 07-24-2010 Catherine Garcia DO Work Phone: [facility] Start: 05-16-2010 End: 05-16-2010 Patient encounter procedure Catherine Garcia [facility] Start: 05-16-2010 End: 05-16-2010 Catherine Garcia DO Work Phone: [facility] Start: 05-04-2010 End: 05-04-2010 Patient encounter procedure Catherine Garcia [facility] Start: 05-04-2010 End: 05-04-2010 Catherine Garcia DO Work Phone: [facility] Start: 10-17-2009 End: 10-17-2009 Patient encounter procedure Catherine Garcia [facility] Start: 10-17-2009 End: 10-17-2009 Catherine Garcia DO Work Phone: [facility] Start: 09-20-2009 End: 09-20-2009 Phone Encounter Catherine Garcia [facility] Start: 09-20-2009 End: 09-20-2009 Catherine Garcia DO Work Phone: [facility] Start: 09-13-2009 End: 09-13-2009 Patient encounter procedure Catherine Garcia [facility] Start: 09-13-2009 End: 09-13-2009 Catherine Garcia DO Work Phone: [facility] Start: 08-09-2009 End: 08-09-2009 Patient encounter procedure Catherine Garcia [facility] Start: 08-09-2009 End: 08-09-2009 Catherine Garcia DO Work Phone: [facility] Start: 08-03-2009 End: 08-04-2009 Patient encounter procedure Catherine Garcia [facility] Start: 08-03-2009 End: 08-04-2009 Catherine Garcia DO Work Phone: [facility] Start: 05-24-2009 End: 05-24-2009 Office outpatient visit 15 minutes Catherine Garcia [facility] Start: 02-24-2009 End: 02-24-2009 Patient encounter procedure Catherine Garcia [facility] Start: 02-24-2009 End: 02-24-2009 Catherine Garcia DO Work Phone: [facility] Start: 02-22-2009 End: 02-22-2009 Office outpatient visit 25 minutes Catherine Garcia [facility] Start: 02-08-2009 End: 02-08-2009 Office outpatient visit 40 minutes Catherine Garcia [facility] Start: 01-31-2009 End: 01-31-2009 Annotation/Addendum Catherine Garcia [facility] Start: 01-31-2009 End: 01-31-2009 Catherine Garcia DO Work Phone: [facility] Start: 01-12-2009 End: 01-12-2009 Office outpatient visit 25 minutes Catherine Garcia [facility] Start: 01-10-2009 End: 01-10-2009 Office outpatient visit 15 minutes Catherine Garcia [facility] Start: 11-01-2008 End: 11-01-2008 Historical Summary Catherine Garcia [facility] Start: 11-01-2008 End: 11-01-2008 Catherine Garcia DO Work Phone: [facility] Start: 10-22-2008 End: 10-22-2008 Historical Summary Catherine Garcia [facility] Start: 10-22-2008 End: 10-22-2008 Catherine Garcia DO Work Phone: [facility] Start: 07-13-2008 End: 07-13-2008 Office outpatient visit 15 minutes Catherine Garcia [facility] Start: 04-14-2007 End: 04-14-2007 Patient encounter procedure Catherine Garcia [facility] Start: 04-14-2007 End: 04-14-2007 Catherine Garcia DO Work Phone: [facility] Start: 10-21-2006 End: 10-21-2006 Patient encounter procedure Catherine Garcia [facility] Start: 10-21-2006 End: 10-21-2006 Catherine Garcia DO Work Phone: [facility] Start: 09-10-2006 End: 09-10-2006 Historical Summary Catherine Garcia [facility] Start: 09-10-2006 End: 09-10-2006 Catherine Garcia DO Work Phone: [facility] Start: 07-16-2006 End: 07-16-2006 Historical Summary Catherine Garcia [facility] Start: 07-16-2006 End: 07-16-2006 Catherine Garcia DO Work Phone: [facility] Start: 05-13-2006 End: 05-15-2006 Historical Summary Catherine Garcia [facility] Start: 05-13-2006 End: 05-15-2006 Catherine Garcia DO Work Phone: [facility] Patient encounter procedure Jessi Sheriff LPN [facility]; [facility] Work Phone: Patient encounter procedure Jessi Sheriff LPN [facility]; [facility] Work Phone: End: 03-21-2015 Patient encounter procedure Denisse Alvarado RN [facility]; [facility] Work Phone: Patient encounter procedure Tarah Calzada LPN [facility]; [facility] Work Phone: Patient encounter procedure Catherine Garcia DO Work Phone: [facility]; [facility] Work Phone: Patient encounter procedure Barbara Tanner MA [facility]; [facility] Work Phone: Patient encounter procedure Robert Howe CMA [facility]; [facility] Work Phone: Physical examination Jessi Jaziel [employer] SALESM[employer] [facility]; [facility] Work Phone: Physical examination Tarah Calzada [employer] SALESM[employer] [facility]; [facility] Work Phone: Physical examination Keke Mike [facility]; [facility] Work Phone: Physical examination Robert Howe [employer] [facility]; [facility] Work Phone: End: 03-21-2015 Preprocedural examination done AGGIE Shaffer [employer] SAL[employer] [facility]; [facility] Work Phone: End: 12-19-2017 Preprocedural examination done Denisse Alvarado RN [facility]; [facility] Work Phone: Procedures Date Procedure Procedure Detail Performing Clinician Start: 06-25-2023 Radionuclide imaging of perfusion of myocardium under exercise stress Dr. Catherine Garcia Work Phone: Start: 06-06-2023 End: 06-06-2023 Procedure Note: See Note; NOTES: [facility]. [address] [place], [place] [address] OFFICE VISIT Date of Service: 06/06/23 MR#: [id number] Acct: [id number] Name: RICKI BHARDWAJ Rep #: [id number] 10 : 1945 Provider: DEVIN francois Age/Sex: 78/M Location[place] [facility] [place] Status: Signed [facility] History of Present Illness Details: RICKI BHARDWAJ, is a 78 year old white male who presents to the office today for a cardiovascular outpatient follow-up visit. He has a history of an acute inferolateral ST-T segment elevation myocardial infarction in February of 2015 with thrombectomy and stenting to his circumflex and OM. He also has a history of mitral valve disease, hypertension, and hyperlipidemia. From a cardiac standpoint, the patient is doing well. He denies any palpitations, chest pain, pressure or heaviness. He denies SOB, Orthopnea, and PND. He does not have bleeding issues; no blood in urine, stool or nosebleeds. He denies any decrease in energy level, myalgias, or claudication. He does not have edema, or sudden weight gain. He denies dizziness, lightheadedness, syncopal or near syncopal episodes, and headaches. Intake Vital Signs 09/11/22 10:03 06/06/23 08:39 06/06/23 08:41 Height 6 ft 6 ft 6 ft Weight: 186 lb BMI 25.2 BP 137/79 H Blood Pressure Location Lt brachial Position Sitting Respiration 18 Pulse 68 Pulse Source Monitor Pulse Oximetry (%) 96 Intake Visit Reasons: [facility] Required: No Is patient in pain?: No Allergies No Known Allergies Allergy (Verified 06/06/23 08:48) Medications citalopram 20 mg tablet 20 mg PO DAILY 04/14/15 [History Confirmed 06/06/23] B-complex with vitamin C (Super B Complex-Vitamin C tablet) 1 tab PO DAILY 11/02/19 [History Confirmed 06/06/23] cholecalciferol (vitamin D3) 25 mcg (1,000 unit) tablet 25 mcg PO DAILY 11/02/19 [History Confirmed 06/06/23] nitroglycerin 0.4 mg sublingual tablet 0.4 mg sublingual Q5M PRN Chest Pain #90 tabs 11/02/19 [Rx Confirmed 06/06/23] atorvastatin 80 mg tablet 80 mg PO Q OTHER DAY 01/09/22 [History Confirmed 06/06/23] isosorbide mononitrate 30 mg tablet,extended release 24 hr 30 mg PO DAILY #90 tabs 10/25/22 [Rx Confirmed 06/06/23] metoprolol succinate 50 mg tablet,extended release 24 hr 50 mg PO DAILY 06/06/23 [History Confirmed 06/06/23] [facility] Medical History 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 Chest pain Essential hypertension 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 Mitral valve disorder Myocardial infarction Nonrheumatic mitral valve disorder Presence of stent in coronary artery ( 03/15/15) Pure hypercholesterolemia Surgical History History of appendectomy Postsurgical percutaneous transluminal coronary angioplasty (PTCA) status Status post percutaneous transluminal coronary angioplasty ( 02/24/15) Family History Father CVA (cerebral vascular accident) Mother Rheumatic fever FH: CABG (coronary artery bypass surgery) Social History Smoking Status: Current every day smoker alcohol intake: current alcohol intake frequency: a few times a week Alcohol type: beer substance use type: does not use caffeine: Yes Type: coffee Number of servings: 3 what type of physical activity do you participate in: none seatbelt use: always do you feel safe at home: Yes ROS Const Const: Negative for fatigue, weakness, fever(s), headache(s), chills, frequent falls, weight gain or weight loss Eyes Eyes: Negative for blind spots, loss of peripheral vision, transient loss of vision, blurry vision, change in vision, double vision, floaters or tunnel vision ENT ENT: Negative for headache(s), dizziness, Nosebleed/epistaxis, balance problems or neck pain Cardio Chest Pain: No Palpitations: No Edema: None Muscle aches with walking: None Resp Respiratory: Negative for SOB with activity, SOB at rest or SOB orthopnea SOB lying down GI GI: Negative nausea, vomiting, heartburn, bloating, vomiting blood/hematemesis, bright, red blood in stools or black,tarry stools Musc Musc: Negative for muscle aches/ myalgia, muscle weakness, joint pain or balance problems Neuro Neuro: Negative for dizziness, lightheadedness, near syncope, syncope, orthostatic symptoms, frequent falls, headache(s), weakness, blurry vision or double vision Nicola Hematologic/Lymphatic: Negative for easy bleeding or easy bruising Endo Endo: Negative for fatigue Cardiology Exam Const Appearance: cooperative and no acute distress Nutritional Appearance: average body habitus Orientation: alert and oriented x3 Head Head: normal to inspection Ears: hearing grossly normal bilaterally Nose: external nose normal Face and Sinus: face symmetric Eyes General: appearance normal, both eyes and all related structures Eyelids: eyelids normal Conjunctivae: conjunctivae normal Pupils: PERRL and pupil size EOM: EOM intact bilaterally Neck Neck: normal visual inspection Carotids: Negative bruit Chest Chest inspection: normal inspection of the chest and normal respiratory effort Auscultation: Bilateral: Clear to Auscultation Cardio Palpation: normal PMI Rate: regular rate Rhythm: regular rhythm Heart sounds: S1 normal and S2 normal; Negative rub, gallop or murmur GI GI: normal to inspection Neuro General: patient alert, patient oriented x3 and CN's II-XI intact bilaterally Skin Skin: no rashes or lesions noted Extremities Pulses: Normal: Right Posterior Tibial Pulse, Left Posterior Tibial Pulse, Right Radial Pulse and Left Radial Pulse Lower Extremity Edema: None: Bilateral Psych Psychological: normal affect Supplemental Info Supplemental Information Echocardiogram 02/06/2022: Interpretation Summary Left ventricular systolic function is normal. The estimated ejection fraction is 60 %. Trivial mitral valve insufficiency. Trivial tricuspid valve insufficiency. Mild focal aortic valve calcification. Trivial aortic valve insufficiency. Trivial pulmonic valve insufficiency. Right ventricular systolic pressure estimated to be 25 mmHg. No evidence for diastolic dysfunction. Cardiac Catheterization 10/21/2018: PROCEDURE(S) PERFORMED [id number]-YZW/COR/LV CLINICAL PROFILE AND INDICATIONS Indications: Suspected CAD Heart Failure: None Stress/Imaging Stress Test w/SPECT MPI: Yes Result: PositiveStress Test with SPECT MPI: Positive Angina Classification Anginal Classification w/in 2 Weeks: CCS III CAD Presentations: Stable angina. CONCLUSIONS Normal Left Ventricular End Diastolic Pressure Perserved Left Ventricular systolic function with normal EDP LVEF: by LV gram 55 % [place] Multivessel CAD LCX: Stent: Patent RECOMMENDATIONS Risk factor modification Medical therapy DESCRIPTION OF PROCEDURE The patient arrived to the procedure lab. The risks and benefits of the procedure as well as a full description of our services here and current unavailability of surgical backup were fully explained to the patient and/or their significant other prior to the catheterization. The Timeout was completed, verifying the correct patient and procedure. The patient's procedural site was prepped and draped in the usual fashion. Local anesthetic was given subcutaneously to right groin region with Lidocaine 2%. Using a modified Seldinger technique, arterial access was obtained via the right femoral artery, a 4Fr sheath was inserted Left Coronary Artery selective angiography was performed in multiple views using a 4 Fr. JL5 catheter. Right Coronary Artery selective angiography was then performed in multiple views using a 4 Fr. 3DRC catheter. Left Ventriculography was performed in DOMINGUEZ projection using a 4 Fr. Pigtail catheter. LV to AO pullback pressures were then recorded.The arterial sheath was pulled and manual compression applied until hemostasis is achieved. CORONARY ANGIOGRAPHY DOMINANCE: Left Dominant LEFT HEART ASSESSMENT Left Ventricular Ejection Fraction: by LV Gram 55 % Inferior Basal Hypokinesis Normal Left Ventricular End Diastolic Pressure LVEDP: 12 mmHg LEFT MAIN: Angiographically normal LEFT ANTERIOR DECENDING ARTERY: Mild luminal irregularities CIRCUMFLEX ARTERY: Mild luminal irregularities PROX CIRC: Eccentric: 10-25 % Stenosis MID CIRC: Previously placed stent is patent RIGHT CORONARY ARTERY: MID RCA: 25 % Stenosis VALVE FINDINGS: Normal Aortic Valve function Normal Mitral Valve function AORTIC ROOT: Angiographically normal Echocardiogram 2016: Interpretation Summary Left ventricular systolic function is normal. The estimated ejection fraction is 60 %. Mild concentric left ventricular hypertrophy. Mild (1+) mitral valve insufficiency. Trivial tricuspid valve insufficiency. Mild focal aortic valve calcification. Trivial pulmonic valve insufficiency. Labs: LDL Cholesterol 80 mg/dL (0-130) HDL Cholesterol 37 mg/dL (40-) L Cholesterol 137 mg/dL (200) Triglycerides 101 mg/dL (-199) Diagnostics: Electrocardiogram Echocardiogram Stress Test Stress Test Nuclear Medicine Cardiac Catheterization Chest X-Ray Abdomen/Pelvis CT Pulmonary: No Data to Display Past Visits: Cardiology Visit 06/06/23 Assessment and Plan Assessment and Plan (1) Presence of stent in coronary artery: Status: Chronic Comment: PTCA/JENNY to distal L CFX OM, distal 60% stenosis mid-RCA not treated 03/15/15 Plan: Patient has a history of coronary artery disease with stent placement in 2014. His most recent cardiac catheterization in 2019 demonstrated pala multivessel CAD, and patent LCX stent. He appears stable at this time, and denies any recent symptoms or events. We will obtain a surveillance stress test to assess for any ischemia. Depending on the results, further recommendations will be made. He will continue with his current medical therapy, along with aggressive risk factor and lifestyle modifications. (2) Nonrheumatic mitral valve disorder: Status: Chronic Plan: Patient has a history of nonrheumatic mitral valve disorder. His most recent echocardiogram from 02/06/2022 demonstrated an ejection fraction of 60%, and trivial mitral valve insufficiency. He appears stable at this time. We will continue to monitor with history, exam, and echocardiograms as deemed appropriate. (3) Essential hypertension: Status: Chronic Plan: Patient has a history of hypertension. His blood pressure is well controlled at this time. He will continue metoprolol succinate 50mg daily, and isosorbide 30mg daily. He will continue to monitor his blood pressures at home, and notify our office of any persistently high or low blood pressure readings. (4) Pure hypercholesterolemia: Status: Chronic Plan: Patient has a history of hypercholesterolemia. His PCP monitors this. He will continue atorvastatin 80mg every other day, along with aggressive risk factor and lifestyle modifications. A copy of his most recent lipid panel would be greatly appreciated for continuity of care. Orders: Orders Nuclear Stress Test - Treadmil Today I25.10 - 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, Z95.5 - Presence of coronary angioplasty implant and graft Plan Details Additional Comments: Patient will follow up in 12 months, or sooner if needed. Thank you for allowing me to participate in the care of your patient. Please don't hesitate to call if any issues arise. This note was generated using a voice recognition system and there may be incorrect words, spelling, or punctuation that were not noted when reviewing the office note prior to saving. Portions of this documentation were copied and pasted from previous office visit notes to provide a cohesive continuity of the history. The note has been reviewed, edited, and updated, as necessary. Follow Up: 1 Year ([facility]) Coding Level of Care Code Off vis,est,level 4 Diagnoses Presence of stent in coronary artery Z95.5 Nonrheumatic mitral valve disorder I34.9 Essential hypertension I10 Pure hypercholesterolemia E78.00 Coding Level of Care Code Off vis,est,level 4 Diagnoses Presence of stent in coronary artery Z95.5 Nonrheumatic mitral valve disorder I34.9 Essential hypertension I10 Pure hypercholesterolemia E78.00 06/06/23 0906 <Electronically signed by Denisse Ann NP [facility]> Date Denisse OSCARC Cosigner Signature: Date (if applicable) CC: Catherine Jose DO Work Phone: Start: 09-11-2022 End: 09-11-2022 Procedure Note: See Note; NOTES: [facility] [address] [place], [place] [address] OFFICE VISIT Date of Service: 09/11/22 MR#: [id number] Acct: [id number] Name: RICKI BHARDWAJ Rep #: [id number] : 1945 Provider: DEVIN francois Age/Sex: 77/M Location: [facility] Status: Signed HPI HPI History of Present Illness Details: RICKI BHARDWAJ, is a 77 year old white male who presents to the office today for a cardiovascular outpatient follow-up visit. He has a history of an acute inferolateral ST-T segment elevation myocardial infarction in February of 2015 with thrombectomy and stenting to his circumflex and OM. He also has a history of mitral valve disease, hypertension, and hyperlipidemia. From a cardiac standpoint, the patient is doing well. He denies any palpitations, chest pain, pressure or heaviness. He denies SOB, Orthopnea, and PND. He does not have bleeding issues; no blood in urine, stool or nosebleeds. He denies any decrease in energy level, myalgias, or claudication. He does not have edema, or sudden weight gain. He denies dizziness, lightheadedness, syncopal or near syncopal episodes, and headaches. Intake Vital Signs 09/11/22 09:55 09/11/22 10:03 Height 6 ft 6 ft Weight: 190 lb 6 oz BMI 25.8 BP 138/78 H Blood Pressure Location Lt brachial Position Sitting Respiration 16 Pulse 69 Pulse Source Monitor Pulse Oximetry (%) 96 Oxygen Delivery Method room air Intake Visit Reasons: 6 M FU Allergies No Known Allergies Allergy (Verified 09/11/22 10:21) Medications citalopram 20 mg tablet 20 mg PO DAILY 04/14/15 [History Confirmed 09/11/22] B-complex with vitamin C (Super B Complex-Vitamin C tablet) 1 tab PO DAILY 11/02/19 [History Confirmed 09/11/22] cholecalciferol (vitamin D3) 25 mcg (1,000 unit) tablet 25 mcg PO DAILY 11/02/19 [History Confirmed 09/11/22] nitroglycerin 0.4 mg sublingual tablet 0.4 mg sublingual Q5M PRN Chest Pain #90 tabs 11/02/19 [Rx Confirmed 09/11/22] isosorbide mononitrate 30 mg tablet,extended release 24 hr 30 mg PO DAILY #90 tabs 10/23/21 [Rx Confirmed 09/11/22] atorvastatin 80 mg tablet 80 mg PO Q OTHER DAY 01/09/22 [History Confirmed 09/11/22] metoprolol succinate 50 mg tablet,extended release 24 hr 100 mg PO DAILY 03/13/22 [History Confirmed 09/11/22] [facility] Medical History 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 Chest pain Essential hypertension 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 Mitral valve disorder Myocardial infarction Nonrheumatic mitral valve disorder Presence of stent in coronary artery ( 03/15/15) Pure hypercholesterolemia Surgical History History of appendectomy Postsurgical percutaneous transluminal coronary angioplasty (PTCA) status Status post percutaneous transluminal coronary angioplasty ( 02/24/15) Family History Father CVA (cerebral vascular accident) Mother Rheumatic fever FH: CABG (coronary artery bypass surgery) Social History Smoking Status: Current every day smoker alcohol intake: current alcohol intake frequency: a few times a week Alcohol type: beer substance use type: does not use caffeine: Yes Type: coffee Number of servings: 3 what type of physical activity do you participate in: none seatbelt use: always do you feel safe at home: Yes ROS Const Const: Negative for fatigue, weakness, fever(s), headache(s), chills, frequent falls, weight gain or weight loss Eyes Eyes: Negative for blind spots, loss of peripheral vision, transient loss of vision, blurry vision, change in vision, double vision, floaters or tunnel vision ENT ENT: Negative for headache(s), dizziness, Nosebleed/epistaxis, balance problems or neck pain Cardio Chest Pain: No Palpitations: No Edema: None Muscle aches with walking: None Resp Respiratory: Negative for SOB with activity, SOB at rest or SOB orthopnea SOB lying down GI GI: Negative nausea, vomiting, heartburn, bloating, vomiting blood/hematemesis, bright, red blood in stools or black,tarry stools Musc Musc: Negative for muscle aches/ myalgia, muscle weakness, joint pain or balance problems Neuro Neuro: Negative for dizziness, lightheadedness, near syncope, syncope, orthostatic symptoms, frequent falls, headache(s), weakness, blurry vision or double vision Nicola Hematologic/Lymphatic: Negative for easy bleeding or easy bruising Endo Endo: Negative for fatigue Cardiology Exam Const Appearance: cooperative and no acute distress Orientation: alert and oriented x3 Head Head: normal to inspection Ears: hearing grossly normal bilaterally Nose: external nose normal Face and Sinus: face symmetric Eyes General: appearance normal, both eyes and all related structures Eyelids: eyelids normal Conjunctivae: conjunctivae normal Pupils: PERRL and pupil size EOM: EOM intact bilaterally Neck Neck: normal visual inspection Carotids: Negative bruit Chest Chest inspection: normal inspection of the chest and normal respiratory effort Auscultation: Bilateral: Clear to Auscultation Cardio Palpation: normal PMI Rate: regular rate Rhythm: regular rhythm Heart sounds: S1 normal and S2 normal; Negative rub, gallop or murmur GI GI: normal to inspection Neuro General: patient alert, patient oriented x3 and CN's II-XI intact bilaterally Skin Skin: no rashes or lesions noted Extremities Pulses: Normal: Right Posterior Tibial Pulse, Left Posterior Tibial Pulse, Right Radial Pulse and Left Radial Pulse Lower Extremity Edema: None: Bilateral Psych Psychological: normal affect Supplemental Info Supplemental Information Echocardiogram 02/06/2022: Interpretation Summary Left ventricular systolic function is normal. The estimated ejection fraction is 60 %. Trivial mitral valve insufficiency. Trivial tricuspid valve insufficiency. Mild focal aortic valve calcification. Trivial aortic valve insufficiency. Trivial pulmonic valve insufficiency. Right ventricular systolic pressure estimated to be 25 mmHg. No evidence for diastolic dysfunction. Cardiac Catheterization 10/21/2018: PROCEDURE(S) PERFORMED IN52-LIT/COR/LV CLINICAL PROFILE AND INDICATIONS Indications: Suspected CAD Heart Failure: None Stress/Imaging Stress Test w/SPECT MPI: Yes Result: PositiveStress Test with SPECT MPI: Positive Angina Classification Anginal Classification w/in 2 Weeks: CCS III CAD Presentations: Stable angina. CONCLUSIONS Normal Left Ventricular End Diastolic Pressure Perserved Left Ventricular systolic function with normal EDP LVEF: by LV gram 55 % [place] Multivessel CAD LCX: Stent: Patent RECOMMENDATIONS Risk factor modification Medical therapy DESCRIPTION OF PROCEDURE The patient arrived to the procedure lab. The risks and benefits of the procedure as well as a full description of our services here and current unavailability of surgical backup were fully explained to the patient and/or their significant other prior to the catheterization. The Timeout was completed, verifying the correct patient and procedure. The patient's procedural site was prepped and draped in the usual fashion. Local anesthetic was given subcutaneously to right groin region with Lidocaine 2%. Using a modified Seldinger technique, arterial access was obtained via the right femoral artery, a 4Fr sheath was inserted Left Coronary Artery selective angiography was performed in multiple views using a 4 Fr. JL5 catheter. Right Coronary Artery selective angiography was then performed in multiple views using a 4 Fr. 3DRC catheter. Left Ventriculography was performed in DOMINGUEZ projection using a 4 Fr. Pigtail catheter. LV to AO pullback pressures were then recorded.The arterial sheath was pulled and manual compression applied until hemostasis is achieved. CORONARY ANGIOGRAPHY DOMINANCE: Left Dominant LEFT HEART ASSESSMENT Left Ventricular Ejection Fraction: by LV Gram 55 % Inferior Basal Hypokinesis Normal Left Ventricular End Diastolic Pressure LVEDP: 12 mmHg LEFT MAIN: Angiographically normal LEFT ANTERIOR DECENDING ARTERY: Mild luminal irregularities CIRCUMFLEX ARTERY: Mild luminal irregularities PROX CIRC: Eccentric: 10-25 % Stenosis MID CIRC: Previously placed stent is patent RIGHT CORONARY ARTERY: MID RCA: 25 % Stenosis VALVE FINDINGS: Normal Aortic Valve function Normal Mitral Valve function AORTIC ROOT: Angiographically normal Echocardiogram 2016: Interpretation Summary Left ventricular systolic function is normal. The estimated ejection fraction is 60 %. Mild concentric left ventricular hypertrophy. Mild (1+) mitral valve insufficiency. Trivial tricuspid valve insufficiency. Mild focal aortic valve calcification. Trivial pulmonic valve insufficiency. Labs: LDL Cholesterol 80 mg/dL (0-130) HDL Cholesterol 37 mg/dL (40-) L Triglycerides 101 mg/dL (-199) VLDL Cholesterol 20 mg/dL (5-40) Diagnostics: Electrocardiogram Echocardiogram Stress Test NM Stress Test Cardiac Catheterization Chest X-Ray Pulmonary: No Data to Display Assessment and Plan Assessment and Plan (1) Presence of stent in coronary artery: Status: Chronic Comment: PTCA/JENNY to distal L CFX OM, distal 60% stenosis mid-RCA not treated 03/15/15 Plan: Patient has a history of coronary artery disease with stent placement in 2014. His most recent cardiac catheterization in 2019 demonstrated pala multivessel CAD, and patent LCX stent. He appears stable at this time, and denies any recent symptoms or events. He will continue with his current medical therapy, along with aggressive risk factor and lifestyle modifications. We may consider a surveillance stress test at his next office visit. (2) Nonrheumatic mitral valve disorder: Status: Chronic Plan: Patient has a history of nonrheumatic mitral valve disorder. His most recent echocardiogram from 02/06/2022 demonstrated an ejection fraction of 60%, and trivial mitral valve insufficiency. He appears stable at this time. We will continue to monitor with history, exam, and echocardiograms as deemed appropriate. (3) Essential hypertension: Status: Chronic Plan: Patient has a history of hypertension. His blood pressure is well controlled at this time. He will continue metoprolol succinate 100mg daily, and isosorbide 30mg daily. He will continue to monitor his blood pressures at home, and notify our office of any persistently high or low blood pressure readings. (4) Pure hypercholesterolemia: Status: Chronic Plan: Patient has a history of hypercholesterolemia. His PCP monitors this. He will continue atorvastatin 80mg every other day, along with aggressive risk factor and lifestyle modifications. Plan Details Additional Comments: Patient will follow up in 6 months, or sooner if needed. Thank you for allowing me to participate in the care of your patient. Please don't hesitate to call if any issues arise. This note was generated using a voice recognition system and there may be incorrect words, spelling, or punctuation that were not noted when reviewing the office note prior to saving. Portions of this documentation were copied and pasted from previous office visit notes to provide a cohesive continuity of the history. The note has been reviewed, edited, and updated, as necessary. Follow Up: Keep as in (PFM) Coding Level of Care Code Off vis,est,level 3 Diagnoses Presence of stent in coronary artery Z95.5 Nonrheumatic mitral valve disorder I34.9 Essential hypertension I10 Pure hypercholesterolemia E78.00 Coding Level of Care Code Off vis,est,level 3 Diagnoses Presence of stent in coronary artery Z95.5 Nonrheumatic mitral valve disorder I34.9 Essential hypertension I10 Pure hypercholesterolemia E78.00 09/11/22 1025 <Electronically signed by Denisse BELTRAN> Date Denisse BELTRAN Cosigner Signature: Date (if applicable) CC: Dr. Catherine Garcia, DO Catherine Garcia DO Work Phone: Start: 03-13-2022 End: 03-13-2022 Procedure Note: See Note; NOTES: [facility] [address] [place], [place] [address] OFFICE VISIT Date of Service: 03/13/22 MR#: [id number] Acct: [id number] Name: RICKI BHARDWAJ Rep #: [id number] : 1945 Provider: DEVIN francois Age/Sex: 76/M Location: [facility] Status: Signed HPI HPI History of Present Illness Details: RICKI BHARDWAJ, is a 76 year old white male who presents to the office today for a cardiovascular outpatient follow-up with a history of an acute inferolateral ST-T segment elevation myocardial infarction in February of 2015 with thrombectomy and stenting to his circumflex and OM. He also has a history of mitral valve disease, hypertension, and hyperlipidemia. From a cardiac standpoint, the patient is doing well. He denies any palpitations, chest pain, pressure or heaviness. He denies SOB, Orthopnea, and PND. He does not have bleeding issues; no blood in urine, stool or nosebleeds. He denies any decrease in energy level, myalgias, or claudication. He does not have edema, or sudden weight gain. He denies dizziness, lightheadedness, syncopal or near syncopal episodes, and headaches. Intake Vital Signs 03/13/22 15:14 03/13/22 15:14 Height 6 ft 6 ft Weight: 195 lb BMI 26.4 BP 135/81 H Blood Pressure Location Lt brachial Position Sitting Respiration 18 Pulse 65 Pulse Source Monitor Pulse Oximetry (%) 93 Intake Visit Reasons: 2 M FU [facility] Chaplain Required: No Is patient in pain?: No Allergies No Known Allergies Allergy (Verified 03/13/22 15:23) Medications citalopram 20 mg tablet 20 mg PO DAILY 04/14/15 [History Confirmed 03/13/22] B-complex with vitamin C (Super B Complex-Vitamin C tablet) 1 tab PO DAILY 11/02/19 [History Confirmed 03/13/22] cholecalciferol (vitamin D3) 25 mcg (1,000 unit) tablet 25 mcg PO DAILY 11/02/19 [History Confirmed 03/13/22] nitroglycerin 0.4 mg sublingual tablet 0.4 mg sublingual Q5M PRN Chest Pain #90 tabs 11/02/19 [Rx Confirmed 03/13/22] isosorbide mononitrate 30 mg tablet,extended release 24 hr 30 mg PO DAILY #90 tabs 10/23/21 [Rx Confirmed 03/13/22] atorvastatin 80 mg tablet 80 mg PO Q OTHER DAY 01/09/22 [History Confirmed 03/13/22] metoprolol succinate 50 mg tablet,extended release 24 hr 100 mg PO DAILY 03/13/22 [History Confirmed 03/13/22] [facility] Medical History 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 Chest pain Essential hypertension 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 Mitral valve disorder Myocardial infarction Nonrheumatic mitral valve disorder Presence of stent in coronary artery ( 03/15/15) Pure hypercholesterolemia Surgical History History of appendectomy Postsurgical percutaneous transluminal coronary angioplasty (PTCA) status Status post percutaneous transluminal coronary angioplasty ( 02/24/15) Family History Father CVA (cerebral vascular accident) Mother Rheumatic fever FH: CABG (coronary artery bypass surgery) Social History Smoking Status: Current every day smoker alcohol intake: current alcohol intake frequency: a few times a week Alcohol type: beer substance use type: does not use caffeine: Yes Type: coffee Number of servings: 3 what type of physical activity do you participate in: none seatbelt use: always do you feel safe at home: Yes ROS Const Const: Negative for fatigue, weakness, fever(s), headache(s), chills, frequent falls, weight gain or weight loss Eyes Eyes: Negative for blind spots, loss of peripheral vision, transient loss of vision, blurry vision, change in vision, double vision, floaters or tunnel vision ENT ENT: Negative for headache(s), dizziness, Nosebleed/epistaxis, balance problems or neck pain Cardio Chest Pain: No Palpitations: No Edema: None Muscle aches with walking: None Resp Respiratory: Negative for SOB with activity, SOB at rest or SOB orthopnea SOB lying down GI GI: Negative nausea, vomiting, heartburn, bloating, vomiting blood/hematemesis, bright, red blood in stools or black,tarry stools Musc Musc: Negative for muscle aches/ myalgia, muscle weakness, joint pain or balance problems Neuro Neuro: Negative for dizziness, lightheadedness, near syncope, syncope, orthostatic symptoms, frequent falls, headache(s), weakness, blurry vision or double vision Nicola Hematologic/Lymphatic: Negative for easy bleeding or easy bruising Endo Endo: Negative for fatigue Cardiology Exam Const Appearance: cooperative and no acute distress Nutritional Appearance: average body habitus and well nourished Orientation: alert and oriented x3 Head Head: normal to inspection Ears: hearing grossly normal bilaterally Nose: external nose normal Face and Sinus: face symmetric Eyes General: appearance normal, both eyes and all related structures Eyelids: eyelids normal Conjunctivae: conjunctivae normal Pupils: PERRL and pupil size EOM: EOM intact bilaterally Neck Neck: normal visual inspection Carotids: Negative bruit Chest Chest inspection: normal inspection of the chest and normal respiratory effort Auscultation: Bilateral: Clear to Auscultation Cardio Palpation: normal PMI Rate: regular rate Rhythm: regular rhythm Heart sounds: S1 normal and S2 normal; Negative rub, gallop or murmur GI GI: normal to inspection and soft; Negative no hepatosplenomegaly Neuro General: patient alert, patient oriented x3 and CN's II-XI intact bilaterally Skin Skin: no rashes or lesions noted Extremities Pulses: Normal: Right Posterior Tibial Pulse, Left Posterior Tibial Pulse, Right Radial Pulse and Left Radial Pulse Lower Extremity Edema: None: Bilateral Psych Psychological: normal affect Supplemental Info Supplemental Information Echocardiogram 02/06/2022: Interpretation Summary Left ventricular systolic function is normal. The estimated ejection fraction is 60 %. Trivial mitral valve insufficiency. Trivial tricuspid valve insufficiency. Mild focal aortic valve calcification. Trivial aortic valve insufficiency. Trivial pulmonic valve insufficiency. Right ventricular systolic pressure estimated to be 25 mmHg. No evidence for diastolic dysfunction. Cardiac Catheterization 10/21/2018: PROCEDURE(S) PERFORMED [id number]-TMV/COR/LV CLINICAL PROFILE AND INDICATIONS Indications: Suspected CAD Heart Failure: None Stress/Imaging Stress Test w/SPECT MPI: Yes Result: PositiveStress Test with SPECT MPI: Positive Angina Classification Anginal Classification w/in 2 Weeks: CCS III CAD Presentations: Stable angina. CONCLUSIONS Normal Left Ventricular End Diastolic Pressure Perserved Left Ventricular systolic function with normal EDP LVEF: by LV gram 55 % [place] Multivessel CAD LCX: Stent: Patent RECOMMENDATIONS Risk factor modification Medical therapy DESCRIPTION OF PROCEDURE The patient arrived to the procedure lab. The risks and benefits of the procedure as well as a full description of our services here and current unavailability of surgical backup were fully explained to the patient and/or their significant other prior to the catheterization. The Timeout was completed, verifying the correct patient and procedure. The patient's procedural site was prepped and draped in the usual fashion. Local anesthetic was given subcutaneously to right groin region with Lidocaine 2%. Using a modified Seldinger technique, arterial access was obtained via the right femoral artery, a 4Fr sheath was inserted Left Coronary Artery selective angiography was performed in multiple views using a 4 Fr. JL5 catheter. Right Coronary Artery selective angiography was then performed in multiple views using a 4 Fr. 3DRC catheter. Left Ventriculography was performed in DOMING[place]Z projection using a 4 Fr. Pigtail catheter. LV to AO pullback pressures were then recorded.The arterial sheath was pulled and manual compression applied until hemostasis is achieved. CORONARY ANGIOGRAPHY DOMINANCE: Left Dominant LEFT HEART ASSESSMENT Left Ventricular Ejection Fraction: by LV Gram 55 % Inferior Basal Hypokinesis Normal Left Ventricular End Diastolic Pressure LVEDP: 12 mmHg LEFT MAIN: Angiographically normal LEFT ANTERIOR DECENDING ARTERY: Mild luminal irregularities CIRCUMFLEX ARTERY: Mild luminal irregularities PROX CIRC: Eccentric: 10-25 % Stenosis MID CIRC: Previously placed stent is patent RIGHT CORONARY ARTERY: MID RCA: 25 % Stenosis VALVE FINDINGS: Normal Aortic Valve function Normal Mitral Valve function AORTIC ROOT: Angiographically normal Echocardiogram 2016: Interpretation Summary Left ventricular systolic function is normal. The estimated ejection fraction is 60 %. Mild concentric left ventricular hypertrophy. Mild (1+) mitral valve insufficiency. Trivial tricuspid valve insufficiency. Mild focal aortic valve calcification. Trivial pulmonic valve insufficiency. Labs: No Data to Display Diagnostics: Echocardiogram Chest X-Ray Pulmonary: No Data to Display Assessment and Plan Assessment and Plan (1) Presence of stent in coronary artery: Status: Chronic Comment: PTCA/JENNY to distal L CFX OM, distal 60% stenosis mid-RCA not treated 03/15/15 Plan: Patient has a history of coronary artery disease with stent placement in 2014. His most recent cardiac catheterization in 2019 demonstrated pala multivessel CAD, and patent LCX stent. He appears stable at this time, and denies any recent symptoms or events. He will continue with his current medical therapy, along with aggressive risk factor and lifestyle modifications. (2) Nonrheumatic mitral valve disorder: Status: Chronic Plan: Patient has a history of nonrheumatic mitral valve disorder. His most recent echocardiogram from 02/06/2022 demonstrated trivial mitral valve insufficiency. He appears stable at this time. We will continue to monitor with history, exam, and echocardiograms as deemed appropriate. (3) Essential hypertension: Status: Chronic Plan: Patient has a history of hypertension. His blood pressure is well controlled at this time. He will continue metoprolol succinate 100mg daily, and isosorbide 30mg daily. He will continue to monitor his blood pressures at home, and notify our office of any persistently high or low blood pressure readings. (4) Pure hypercholesterolemia: Status: Chronic Plan: Patient has a history of hypercholesterolemia. His PCP monitors this. He will continue atorvastatin 80mg every other day, along with aggressive risk factor and lifestyle modifications. Medications: Changed From metoprolol succinate ER 50 mg PO BID To metoprolol succinate ER 100 mg PO DAILY Plan Details Additional Comments: Patient will follow up in 6 months, or sooner if needed. Thank you for allowing me to participate in the care of your patient. Please don't hesitate to call if any issues arise. This note was generated using a voice recognition system and there may be incorrect words, spelling, or punctuation that were not noted when reviewing the office note prior to saving. Portions of this documentation were copied and pasted from previous office visit notes to provide a cohesive continuity of the history. The note has been reviewed, edited, and updated, as necessary. Follow Up: 6 Months (FIRST COOK/PA) Coding Level of Care Code Off vis,est,level 3 Diagnoses Presence of stent in coronary artery Z95.5 Nonrheumatic mitral valve disorder I34.9 Essential hypertension I10 Pure hypercholesterolemia E78.00 Coding Level of Care Code Off vis,est,level 3 Diagnoses Presence of stent in coronary artery Z95.5 Nonrheumatic mitral valve disorder I34.9 Essential hypertension I10 Pure hypercholesterolemia E78.00 03/13/22 1540 <Electronically signed by Denisse Ann NP FIRST COOK-C> Date Denisse Ann NP FIRST COOK-C 03/13/22 1656<Electronically signed by Ranjith Dueñas MD> Cosigner Signature: Date (if applicable) Ranjith Dueñas MD CC: Dr. Catherine Garcia, DO Catherine Garcia DO Work Phone: Start: 02-06-2022 End: 02-06-2022 Procedure Note: See Note; NOTES: [facility] Cardiovascular Services [address] [place] [address] Echo Complete 02/06/22 1308 MR#: [id number] Acct: [id number] Name: RICKI BHARDWAJ Rep #: [id number] : 1945 76 From: Ranjith Dueñas MD Attending Dr: Denisse Ann, FIRST COOK-C Status: [facility] Ordering Dr: Denisse Ann NP FIRST COOK-C Date: 02/06/22 Location: [facility] Sex: M C Admitted: Reason For Study: MV INSUFFICIENCY Procedure This was a 2D Doppler, Color Flow transthoracic echocardiogram. The exam was of adequate technical quality. Exam performed in department. Left Ventricle Normal LV size. Left ventricular systolic function is normal. The estimated ejection fraction is 60 %. No evidence for diastolic dysfunction. No regional wall motion abnormalities noted. Right Ventricle Normal RV size. Normal systolic function. Atria Normal left atrium. Normal right atrium. No doppler evidence for ASD. Mitral Valve There is no mitral annular calcification. Normal mitral valve. Trivial mitral valve insufficiency. Tricuspid Valve Normal tricuspid valve. Trivial tricuspid valve insufficiency. Right ventricular systolic pressure estimated to be 25 mmHg. Aortic Valve Trisinus/trileaflet aortic valve. Mild focal aortic valve calcification. Trivial aortic valve insufficiency. Pulmonic Valve The pulmonic valve is not well visualized. Trivial pulmonic valve insufficiency. Great Vessels Normal sized aortic root. Pericardium/Pleural No pericardial effusion. MMode/2D Measurements Calculations LVIDd: 4.2 cm IVSd: 1.2 cm Ao root diam: 3.4 cm LVIDs: 2.9 cm LVPWd: 1.2 cm RVDd: 3.2 cm FS: 32.6 % LAV(MOD-bp): 33.7 ml LVAd ap4: 25.6 cm2 SV(MOD-sp4): 42.5 ml LAV(MOD-bp) Indexed: 16.2 ml/m2 LVLd ap4: 7.8 cm LAV(MOD-sp2): 35.0 ml EDV(MOD-sp4): 70.9 ml LAV(MOD-sp4): 32.6 ml EDV(sp4-el): 71.4 ml LVAs ap4: 14.9 cm2 LVLs ap4: 6.9 cm ESV(MOD-sp4): 28.3 ml ESV(sp4-el): 27.0 ml EF(MOD-sp4): 60.0 % EF(sp4-el): 62.2 % SV(sp4-el): 44.4 ml LA A4 area: 14.2 cm2 LA dimension(2D): 3.3 cm RA A4 area: 14.4 cm2 Time Measurements MV dec time: 0.33 sec Doppler Measurements Calculations MV E max lamont: 68.6 cm/sec Lat Peak E' Lamont: 7.8 cm/sec Med Peak E' Lamont: 5.9 cm/sec MV A max lamont: 96.1 cm/sec E/E' lat: 8.8 E/E' med: 11.5 MV E/A: 0.71 Ao V2 max: 136.3 cm/sec AI max lamont: 378.2 cm/sec LV V1 max: 107.5 cm/sec Ao max P.4 mmHg AI max P.2 mmHg LV V1 max P.6 mmHg AI dec slope: 133.2 cm/sec2 AI P1/2t: 831.8 msec PA V2 max: 73.9 cm/sec TR max lamont: 231.7 cm/sec TR max P.5 mmHg ECHO/Echo Complete Interpretation Summary Left ventricular systolic function is normal. The estimated ejection fraction is 60 %. Trivial mitral valve insufficiency. Trivial tricuspid valve insufficiency. Mild focal aortic valve calcification. Trivial aortic valve insufficiency. Trivial pulmonic valve insufficiency. Right ventricular systolic pressure estimated to be 25 mmHg. No evidence for diastolic dysfunction. _ Ordering Physician: Evangelist Gao/Ranjith Dueñas Referring Physician: CATHERINE GARCIA Performed By: Mary Reyes RDCS 02/06/22 1601 Date Ranjith Dueñas MD CC: DEVIN Ann; Dr. Catherine Garcia DO Date Dictated: 02/06/22 1308 Date Transcribed: 02/06/22 160 Forestry Pilot: Kellen Garcia DO Work Phone: Start: 01-09-2022 End: 01-09-2022 Procedure Note: See Note; NOTES: [facility] [place], [place] [address] OFFICE VISIT Date of Service: 01/09/22 MR#: [id number] Acct: [id number] Name: RICKI BHARDWAJ Rep #: [id number] : 1945 Provider: DEVIN francois Age/Sex: 76/M Location: [facility] Status: Signed HPI HPI History of Present Illness Details: RICKI BHARDWAJ is a 76 year old white male who presents to the office today for a cardiovascular outpatient follow-up with a history of an acute inferolateral ST-T segment elevation myocardial infarction in February of 2015 with thrombectomy and stenting to his circumflex and OM. He also has a history of mitral valve disease, hypertension, and hyperlipidemia. He underwent noninvasive/invasive evaluation in 2019. The results are as noted below. From a cardiac standpoint, the patient is doing well. He denies any palpitations, chest pain, pressure or heaviness. He denies SOB, Orthopnea, and PND. He does not have bleeding issues; no blood in urine, stool or nosebleeds. He denies any decrease in energy level, myalgias, or claudication. He does not have edema, or sudden weight gain. He denies dizziness, lightheadedness, syncopal or near syncopal episodes, and headaches. Intake Vital Signs 01/09/22 13:03 Height 6 ft Weight: 196 lb BMI 26.6 BP 142/85 H Blood Pressure Location Lt brachial Position Sitting Respiration 16 Pulse 69 Pulse Source Monitor Intake Visit Reasons: OVERDUE FOR OV [facility] Chaplain Required: No Accompanied by: None Is patient in pain?: No Allergies No Known Allergies Allergy (Verified 01/09/22 13:23) Medications citalopram 20 mg PO DAILY 04/14/15 [History Confirmed 01/09/22] B-complex with vitamin C 1 tab PO DAILY 11/02/19 [History Confirmed 01/09/22] cholecalciferol (vitamin D3) 25 mcg (1,000 unit) tablet 25 mcg PO DAILY 11/02/19 [History Confirmed 01/09/22] metoprolol succinate 50 mg tablet,extended release 24 hr 50 mg PO DAILY 11/02/19 [History Confirmed 01/09/22] nitroglycerin 0.4 mg sublingual tablet 0.4 mg SUBLINGUAL Q5M PRN #90 tab 11/02/19 [Rx Confirmed 01/09/22] isosorbide mononitrate 30 mg tablet,extended release 24 hr 30 mg PO DAILY #90 tab 10/23/21 [Rx Confirmed 01/09/22] ascorbic acid (vitamin C) 250 mg tablet 250 mg PO DAILY 01/09/22 [History Confirmed 01/09/22] atorvastatin 80 mg tablet 80 mg PO Q OTHER DAY tab 01/09/22 [History Confirmed 01/09/22] pyridoxine (vitamin B6) 100 mg tablet 100 mg PO DAILY 01/09/22 [History Confirmed 01/09/22] Ejection fraction %: 60 to 64 [facility] Medical History 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 Chest pain Essential hypertension 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 Mitral valve disorder Myocardial infarction Nonrheumatic mitral valve disorder Presence of stent in coronary artery ( 03/15/15) Pure hypercholesterolemia Surgical History History of appendectomy Postsurgical percutaneous transluminal coronary angioplasty (PTCA) status Status post percutaneous transluminal coronary angioplasty ( 02/24/15) Family History Father CVA (cerebral vascular accident) Mother Rheumatic fever FH: CABG (coronary artery bypass surgery) Social History Smoking Status: Current every day smoker alcohol intake: current alcohol intake frequency: a few times a week Alcohol type: beer substance use type: does not use caffeine: Yes Type: coffee Number of servings: 3 what type of physical activity do you participate in: none seatbelt use: always do you feel safe at home: Yes ROS Const Const: Negative for fatigue, weakness, fever(s), headache(s), chills, frequent falls, weight gain or weight loss Eyes Eyes: Negative for blind spots, loss of peripheral vision, transient loss of vision, blurry vision, change in vision, double vision, floaters or tunnel vision ENT ENT: Negative for headache(s), dizziness, Nosebleed/epistaxis, balance problems or neck pain Cardio Chest Pain: No Palpitations: No Edema: None Muscle aches with walking: None Resp Respiratory: Negative for SOB with activity, SOB at rest or SOB orthopnea SOB lying down GI GI: Negative nausea, vomiting, heartburn, bloating, vomiting blood/hematemesis, bright, red blood in stools or black,tarry stools : Negative for hematuria Musc Musc: Negative for muscle aches/ myalgia, muscle weakness, joint pain or balance problems Neuro Neuro: Negative for dizziness, lightheadedness, near syncope, syncope, orthostatic symptoms, frequent falls, headache(s), weakness, blurry vision or double vision Nicola Hematologic/Lymphatic: Negative for easy bleeding or easy bruising Endo Endo: Negative for fatigue Cardiology Exam Const Appearance: cooperative and no acute distress Orientation: alert and oriented x3 Head Head: normal to inspection Ears: hearing grossly normal bilaterally Nose: external nose normal Face and Sinus: face symmetric Eyes General: appearance normal, both eyes and all related structures Eyelids: eyelids normal Conjunctivae: conjunctivae normal Pupils: PERRL and pupil size EOM: EOM intact bilaterally Neck Neck: normal visual inspection Carotids: Negative bruit Chest Chest inspection: normal inspection of the chest and normal respiratory effort Auscultation: Bilateral: Clear to Auscultation Cardio Palpation: normal PMI Rate: regular rate Rhythm: regular rhythm Heart sounds: S1 normal and S2 normal; Negative rub, gallop or murmur GI GI: normal to inspection and soft; Negative no hepatosplenomegaly Neuro General: patient alert, patient oriented x3 and CN's II-XI intact bilaterally Skin Skin: no rashes or lesions noted Extremities Pulses: Normal: Right Posterior Tibial Pulse, Left Posterior Tibial Pulse, Right Radial Pulse and Left Radial Pulse Lower Extremity Edema: None: Bilateral Psych Psychological: normal affect Assessment and Plan Assessment and Plan (1) Presence of stent in coronary artery: Status: Chronic Comment: PTCA/JENNY to distal L CFX OM, distal 60% stenosis mid-RCA not treated 03/15/15 Plan - Denisse Ann NP, FIRST COOK-C: Patient has a history of coronary artery disease with stent placement in 2014. His most recent cardiac catheterization in 2019 demonstrated pala multivessel CAD, and patent LCX stent. He appears stable at this time, and denies any recent symptoms or events. He will continue with his current medical therapy, along with aggressive risk factor and lifestyle modifications. (2) Nonrheumatic mitral valve disorder: Status: Chronic Orders: Orders: Echo Complete Today Jose - Denisse Ann NP, FIRST COOK-C: Patient has a history of nonrheumatic mitral valve disorder. His most recent echocardiogram from 2016 demonstrated mild mitral valve insufficiency. He appears stable at this time. We will obtain a surveillance echocardiogram to evaluate his mitral valve. (3) Essential hypertension: Status: Chronic Plan - Denisse Ann FIRST COOK, FIRST COOK-C: Patient has a history of hypertension. His blood pressure is elevated in the office today. At this time, he will continue metoprolol 50mg daily, and isosorbide 30mg daily. He will monitor his blood pressures at home, and notify our office of blood pressure readings in 2-3 weeks. If deemed appropriate, we may need to increase his metoprolol to twice daily. (4) Pure hypercholesterolemia: Status: Chronic Plan - Denisse Ann FIRST COOK, FIRST COOK-C: Patient has a history of hypercholesterolemia. His PCP monitors this. He will continue atorvastatin 80mg every other day, along with aggressive risk factor and lifestyle modifications. Plan Details Other Orders: Orders: Echo Complete Today I25.10 Additional Comments: Patient will follow up in 2 months, or sooner if needed. Thank you for allowing me to participate in the care of your patient. Please don't hesitate to call if any issues arise. This note was generated using a voice recognition system and there may be incorrect words, spelling, or punctuation that were not noted when reviewing the office note prior to saving. Follow Up: 2 Months (FIRST COOK/PA) 12-14 Months (PFM) Coding Level of Care Code Off vis,est,level 4 Diagnoses Presence of stent in coronary artery Z95.5 Nonrheumatic mitral valve disorder I34.9 Essential hypertension I10 Pure hypercholesterolemia E78.00 Coding Level of Care Code Off vis,est,level 4 Diagnoses Presence of stent in coronary artery Z95.5 Nonrheumatic mitral valve disorder I34.9 Essential hypertension I10 Pure hypercholesterolemia E78.00 Supplemental Info Supplemental Information Cardiac Catheterization 10/21/2018: PROCEDURE(S) PERFORMED BY97-SFP/COR/LV CLINICAL PROFILE AND INDICATIONS Indications: Suspected CAD Heart Failure: None Stress/Imaging Stress Test w/SPECT MPI: Yes Result: PositiveStress Test with SPECT MPI: Positive Angina Classification Anginal Classification w/in 2 Weeks: CCS III CAD Presentations: Stable angina. CONCLUSIONS Normal Left Ventricular End Diastolic Pressure Perserved Left Ventricular systolic function with normal EDP LVEF: by LV gram 55 % [place] Multivessel CAD LCX: Stent: Patent RECOMMENDATIONS Risk factor modification Medical therapy DESCRIPTION OF PROCEDURE The patient arrived to the procedure lab. The risks and benefits of the procedure as well as a full description of our services here and current unavailability of surgical backup were fully explained to the patient and/or their significant other prior to the catheterization. The Timeout was completed, verifying the correct patient and procedure. The patient's procedural site was prepped and draped in the usual fashion. Local anesthetic was given subcutaneously to right groin region with Lidocaine 2%. Using a modified Seldinger technique, arterial access was obtained via the right femoral artery, a 4Fr sheath was inserted Left Coronary Artery selective angiography was performed in multiple views using a 4 Fr. JL5 catheter. Right Coronary Artery selective angiography was then performed in multiple views using a 4 Fr. 3DRC catheter. Left Ventriculography was performed in DOMING[place]Z projection using a 4 Fr. Pigtail catheter. LV to AO pullback pressures were then recorded.The arterial sheath was pulled and manual compression applied until hemostasis is achieved. CORONARY ANGIOGRAPHY DOMINANCE: Left Dominant LEFT HEART ASSESSMENT Left Ventricular Ejection Fraction: by LV Gram 55 % Inferior Basal Hypokinesis Normal Left Ventricular End Diastolic Pressure LVEDP: 12 mmHg LEFT MAIN: Angiographically normal LEFT ANTERIOR DECENDING ARTERY: Mild luminal irregularities CIRCUMFLEX ARTERY: Mild luminal irregularities PROX CIRC: Eccentric: 10-25 % Stenosis MID CIRC: Previously placed stent is patent RIGHT CORONARY ARTERY: MID RCA: 25 % Stenosis VALVE FINDINGS: Normal Aortic Valve function Normal Mitral Valve function AORTIC ROOT: Angiographically normal Echocardiogram 2016: Interpretation Summary Left ventricular systolic function is normal. The estimated ejection fraction is 60 %. Mild concentric left ventricular hypertrophy. Mild (1+) mitral valve insufficiency. Trivial tricuspid valve insufficiency. Mild focal aortic valve calcification. Trivial pulmonic valve insufficiency. Labs: No Data to Display Diagnostics: Electrocardiogram Cardiac Catheterization Chest X-Ray Pulmonary: No Data to Display 01/09/22 4813 <Electronically signed by Denisse Ann NP FIRST COOK-C> Date Denisse Ann NP FIRST COOK-C 01/09/22 1160<Electronically signed by Ranjith Dueñas MD> Cosigner Signature: Date (if applicable) Ranjith Dueñas MD CC: Dr. DO Catherine Mathis DO Work Phone: Start: 12-15-2020 End: 12-15-2020 Comments: See Note; NOTES: [facility]iology [address] [place] [address] Chest PA and Lateral MR#: [id number] Acct: [id number] Name: RICKI BHARDWAJ Rep #: [id number] : 1945 M 75 From: Yosvany Polo MD PCP: Dr. Catherine Garcia DO Status: DEP AMB Study: Chest PA and Lateral Date of Exam: 12/15/20 Exam# [id number] Ordering Dr: Catherine Garcia DO STUDY: X-RAY CHEST REASON FOR EXAM: Male, 75 years old. Cough x 6 weeks TECHNIQUE: PA and lateral views of the chest. COMPARISON: 10/08/2018 FINDINGS: The lungs are clear and expanded. There is no demonstrated pleural abnormality. Normal size heart. Normal mediastinum and shayan. Normal visualized pulmonary arteries. Normal visualized aortic arch and descending thoracic aorta. Normal visualized thoracic spine. Normal visualized ribs, clavicles, and shoulders. There is no demonstrated abnormality of the visualized soft tissue structures of the upper abdomen. RAD/Chest PA and Lateral IMPRESSION: Normal x-ray examination of the chest. Electronically Signed: Yosvany Polo MD at 17:00 EDT Tel , Service support , CC: Dr. Catherine Garcia DO Forestry Pilot: Signed Catherine Garcia DO Work Phone: Start: 05-20-2020 End: 05-20-2020 Operative Report Comments: See Note; NOTES: [facility] Medical Records Department [address] [place] [address] Operative Report 05/20/20 1200 MR#: [id number] Acct: [id number] Name: RICKI BHARDWAJ Rep #: [id number] : 1945 75 From: Torin Quiñonez MD PCP: Dr. Catherine Garcia, DO Status:[facility] Location: [place] [address] Problem List (1) Left ureteral calculus Status: Acute Report of Operation Date of Procedure: 05/20/20 Pre-Operative Diagnosis: Left ureteral calculi with obstruction Post-Operative Diagnosis: The same plus small bladder polyp Surgery/Procedure Performed:: Cystoscopy biopsy of a bladder polyp and fulguration. Balloon dilation of the left ureter. Left ureteroscopy laser of stone and stent placement Description of Surgical Findings:: 75-year-old male was found to have an obstructing stone in the distal left ureter he had a CAT scan done that demonstrated the stones were taken to surgery today for left ureteroscopy laser of the stone and stent placement. He was taken back to the operating room at the smooth induction of general anesthesia he was placed in dorsolithotomy position. The penis and testicles are prepped and draped in usual sterile fashion went in to the urethra with a 21 [place] rigid cystourethroscope the urethra severely tortuous urethra but with no strictures there is a little angulation of the went to the prostate past the prostate was clear nonobstructive prostate once again to the bladder there was a polyp be looking like tumor in the left lateral wall the bladder a biopsy of this was taken sent off as a specimen and then we cauterized the base of this with a Bugbee electrode. I then cannulated the left ureteral orifice with a wire advanced a wire up past the stone and then balloon dilated the distal left ureter and the left the wire in place and then over the wire went in with a semirigid ureteroscope I then pulled the wire out got to the stone. I used a 270 ???m laser fiber and perform laser lithotripsy and the stone until all the fragments were small and passed into the bladder and then worked out of the ureter put a wire back up on the left side and over the wire loaded the stent. It was a 6 [place] by 26 cm stent I put a stent up in the kidney once a stent was a good position I pulled the wire and the stent: The kidney bladder good position I drained the bladder and patient's anesthetic was reversed he was taken back to the PACU in good condition plan to see him back next week for cystoscopy stent removal. Type of Anesthesia:: General Drains: left stent - Admit VTE Documentation VTE Present on Admission: No VTE Mechan Device Prophylaxis: SCD's 05/20/20 1203 <Electronically signed by Torin Quiñonez MD> Date Torin Quiñonez MD CC: Dr. Torin Quiñonez MD; Dr. Catherine Garcia, DO Signed Catherine Garcia Start: 05-20-2020 End: 05-20-2020 Discharge Instruction Comments: See Note; NOTES: [facility] Medical Records Department [address] [place] [address] Instructions for Home/Discharge Instructions 05/20/20 1158 MR#: [id number] Acct: [id number] Name: RICKI BHARDWAJ Rep #: [id number] : 1945 75 From: Torin Quiñonez MD PCP: Dr. Catherine Garcia, DO Status:REG [facility] Discharge Diet: No Restrictions Discharge Activity: Return to Normal Activity, May Not Drive - for 2 days. Additional Activity Instructions:: Please be aware that pain medications may cause nausea. You should typically eat light foods as you take your pain medication. Pain medication may cause constipation, if this is a problem for you, please discuss with your doctor. Allergies/Adverse Reactions: Allergies No Known Allergies Allergy (Verified 05/13/20 13:23) Medications to take at Discharge Citalopram [Celexa] 20 mg PO DAILY 04/14/15 B-complex with vitamin C 1 tab PO DAILY 11/02/19 cholecalciferol (vitamin D3) 25 mcg (1,000 unit) tablet 25 mcg PO DAILY 11/02/19 metoprolol succinate 50 mg tablet,extended release 24 hr 50 mg PO DAILY 11/02/19 nitroglycerin 0.4 mg sublingual tablet 0.4 mg SUBLINGUAL Q5M PRN #90 tab 11/02/19 thiamine HCl (vitamin B1) 100 mg tablet 100 mg PO DAILY 11/02/19 Pravastatin [Pravachol] 20 mg PO QHS 05/13/20 Ciprofloxacin [Cipro] 500 mg PO BID #6 tab 05/20/20 Hydrocodone/Acetaminophen [[place] 5-325 Tablet] 1 each PO Q4H PRN PRN 5 Days #14 tablet 05/20/20 The following prescriptions were given: Ciprofloxacin [Cipro] 500 mg PO BID #6 tab Transmission Status: Pending to [id number] Hydrocodone/Acetaminophen [[place]um[place] 5-325 Tablet] 1 each PO Q4H PRN PRN 5 Days #14 tablet PRN Reason: Pain Score 1-06/04 Transmission Status: Received by [id number] Primary Care Physician: Catherine Garcia DO [Primary Care Provider] - Test Results: Test results from this visit will be discussed in further detail at your follow-up appointment, if applicable. Please Follow Up With: Torin Quiñonez MD When: please call to make an appointment. 05/20/20 1159 <Electronically signed by Torin Quiñonez MD> Date Torin Quiñonez MD CC: Dr. Catherine Garcia DO Signed Catherine Garcia Start: 05-20-2020 End: 05-20-2020 History and Physical Exam Comments: See Note; NOTES: [facility] Medical Records Department [address] [place] [id number] History and Physical 05/20/20 1154 MR#: [id number] Acct: [id number] Name: RICKI BHARDWAJ Rep #: [id number] : 1945 75 From: Torin Quiñonez MD PCP: Dr. Catherine Garcia DO Status:REG [facility] Y Location: [place] [address] Problem List (1) Left ureteral calculus Status: Acute History of Present Illness Date of Admission: 05/20/20 Chief Complaint: Left obstructing ureteral calculi The patient is a 75 year old male with obstructing stone in the distal left ureter plan to proceed with laser lithotripsy of the stone. 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 Hypertension (Inactive) I10 Mitral valve disorder (Inactive) I05.9 Allergies No Known Allergies Allergy (Verified 05/13/20 13:23) Home Medications: Ambulatory Orders Medication Instructions Recorded Aspirin [Aspirin, Baby] 81 mg PO DAILY@0800 04/14/15 Citalopram [Celexa] 20 mg PO DAILY 04/14/15 B-complex with vitamin C 1 tab PO DAILY 11/02/19 cholecalciferol (vitamin D3) 25 25 mcg PO DAILY 11/02/19 mcg (1,000 unit) tablet metoprolol succinate 50 mg 50 mg PO DAILY 11/02/19 tablet,extended release 24 hr nitroglycerin 0.4 mg sublingual 0.4 mg SUBLINGUAL Q5M PRN #90 tab 11/02/19 tablet thiamine HCl (vitamin B1) 100 mg 100 mg PO DAILY 11/02/19 tablet Pravastatin [Pravachol] 20 mg PO QHS 05/13/20 Surgical History: Surgical History (Last Reviewed 11/02/19 @ 16:09 by Dana Wade) Status post percutaneous transluminal coronary angioplasty Onset Date: 02/24/15 Z98.61 PTCA/JENNY to distal L CFX OM, distal 60% stenosis mid-RCA not treated 03/15/15 History of appendectomy Z90.49 Postsurgical percutaneous transluminal coronary angioplasty (PTCA) status (Inactive) Z98.61 PTCA/JENNY to distal L CFX OM, distal 60% stenosis mid-RCA not treated 03/15/15 Surgical History: appendectomy, - - 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 Smoking Status: Current every day smoker Tobacco Use: Cigarettes Review of Systems Constitutional: Denies: Chills, Fever, Weight Change HEENT: Denies: Head Aches, Sinus Congestion, Sinus Drainage Cardiovascular: Denies: Chest Pain, Palpitations Respiratory: Denies: Cough, Shortness of breath at rest, Sputum production Gastrointestinal: Denies: Abdominal Pain, Nausea, Vomiting Genitourinary: Denies: Dysuria Musculoskeletal: Denies: Joint Pain, Joint Tenderness Skin: Denies: Rash, Wounds Neurological: Denies: Numbness, Tingling, Focal weakness Psychiatric: Denies: Anxiety, Depression, Homicidal Ideations, Suicidal Ideations Hematologic/ Lymphatic: Denies: Easy Bruising, Easy Bleeding VTE Information - Inpt Only VTE Present on Admission: No VTE Mechan Device Prophylaxis: SCD's Patient Problems: Active and Suspected Problems (Last Reviewed 11/02/19 @ 16:09 by Dana Wade) Left ureteral calculus (Acute) - Physical Exam Vitals/I O's: Vital Signs Temp Pulse Resp BP Pulse Ox 98.7 F 69 16 166/85 H 99 05/20/20 10:15 05/20/20 10:15 05/20/20 10:15 05/20/20 10:15 05/20/20 10:15 Oxygen Delivery Method Room Air Weight: 84.3 kg Body Mass Index (BMI) 25.2 Intake and Output for Last 24 Hours 05/18/20 05/19/20 05/20/20 23:59 23:59 23:59 Intake Total 110 / 110 Balance 110 / 110 General: Alert, Oriented x3, Cooperative HEENT: Atraumatic, PERRLA, EOMI, Normocephalic Neck: Supple, No JVD, Negative Carotid Bruits Lungs: Clear to auscultation, Normal air movement Cardiovascular: Regular rate, No murmurs Abdomen: Bowel Sounds Present, Soft, Non Tender Extremities: No edema, Capillary Refill Less than 3 Seconds Skin: No rashes, No breakdown Musculoskeletal: No Tenderness to Palpation of Joints or Extremities Neurological: Cranial nerves II-XII grossly intact Psych/Mental Status: Normal Affect, Appropriate Current Medications Cefazolin Sodium 2 gm/ Sodium (Chloride) 110 mls @ 150 mls/hr IV PREOP ONE Stop: 05/20/20 12:33 Last Infusion: 05/20/20 11:51 Dose: Infused Documented by: Lactated Ringer's () 1,000 mls @ 75 mls/hr IV .[id number] [facility] Last Admin: 05/20/20 11:06 Dose: 75 mls/hr Documented by: Assessment/Plan All Active Problems (Last Reviewed 11/02/19 @ 16:09 by Dana Wade) Left ureteral calculus (Acute) Chest pain (Acute) Plan for left ureteroscopy and laser of stone. 05/20/20 1155 <Electronically signed by Torin Quiñonez MD> Date Torin Quiñonez MD Cosigner Signature: Date (if applicable) CC: Dr. Torin Quiñonez MD; Dr. Catherine Garcia, DO Signed Catherine Garcia Start: 05-10-2020 End: 05-10-2020 CT Abd/Pelvis W/WO Contrast Comments: See Note; NOTES: [facility] Imaging Services [address] [place] [address] CT Abd/Pelvis W/WO Contrast MR#: [id number] Acct: [id number] Name: RICIK BHARDWAJ Rep #: [id number] : 1945 M 75 From: Franko pereira MD PCP: Dr. Catherine Garcia, DO Status: REG CLI Study: CT Abd/Pelvis W/WO Contrast Date of Exam: 04/26 01/12 Exam# [id number] Ordering Dr: Yessica Siu FIRST COOK FIRST COOK-C STUDY: CT ABDOMEN AND PELVIS WITH AND WITHOUT CONTRAST REASON FOR EXAM: Male, 75 years old. GROSS HEMATURIA. PRIOR APPENDECTOMY. RADIATION DOSAGE (If Supplied By Facility): CTDIvol = ( 14.21 ) mGy, DLP = ( 2429.87 ) mGycm TECHNIQUE: Transaxial images were obtained from the dome of the diaphragm to the symphysis pubis without oral contrast. 100 ML ISOVUE 300 was administered. Sagittal and coronal images were reconstructed. Individualized dose optimization techniques were used for this CT. COMPARISON: Comparison is made with prior study dated 02/11/2019. FINDINGS: The visualized lung bases are unremarkable. Coronary artery calcification. Stable appearance of the multiple hepatic cysts of varying sizes. Normal gallbladder and extrahepatic biliary system. Normal spleen. Normal pancreas. Normal bilateral adrenal glands. There is a 2.2 cm x 2.9 cm cyst in the lateral inferior aspect of the right kidney. There is a 1.4 cm cyst in the midportion of the left kidney as well as a 1.6 on the cyst in the upper posterior aspect of the left kidney. Nonspecific left perinephric stranding. Mild degree of the left hydronephrosis and hydroureter due to a 4.8 mm calculus in the distal portion of the left ureter. Normal visualized stomach. Normal small intestine. There are multiple colonic diverticula consistent with diverticulosis. The patient is status post appendectomy. There is diffuse atherosclerotic calcification of the abdominal aorta. There is evidence of a infrarenal abdominal aortic aneurysm with a transverse dimension of 3 cm. Normal inferior vena cava. There is borderline retroperitoneal lymphadenopathy with enlarged nodes no greater than 10mm in the short axis diameter. There is evidence of diffuse bladder wall thickening. There is enlargement of the prostate gland. It measures 3.4 cm x 4.7 cm. This causes indentation at the bladder base. Normal abdominal wall. There are degenerative changes of the visualized lumbar spine. CT/CT Abd/Pelvis W/WO Contrast IMPRESSION: Multiple hepatic cysts. These are unchanged. Bilateral renal cysts. 4.8 mm calculus in the distal portion of the left ureter with the mild left hydronephrosis and hydroureter. Diffuse bladder wall thickening. Prostatic enlargement with indentation at the bladder base. Stable infrarenal abdominal aortic aneurysm. Electronically Signed: Franko Erich, at 8:25 EDT , Service support , CC: DEVIN Siu; Dr. Catherine Garcia DO Forestry Pilot: Signed Catherine Garcia Work Phone: Start: 11-02-2019 End: 11-02-2019 Cardiology Visit Report Comments: See Note; NOTES: [facility] [address] [place] [address] OFFICE VISIT Date of Service: 11/02/19 MR#: [id number] Acct: [id number] Name: RICKI BHARDWAJ Rep #: [id number] : 1945 Provider: Ranjith Dueñas MD Age/Sex: 74/M Location: [facility] Status: Signed [facility] History of Present Illness Details: RICKI BHARDWAJ is a 74 year old white male who presents to the office today for a cardiovascular outpatient follow-up with a history of an acute inferolateral ST-T segment elevation myocardial infarction in February of 2015 with thrombectomy and stenting to his circumflex and OM. He also has a history of mitral valve disease, hypertension, and hyperlipidemia. At the present time he denies any ongoing issues of classic angina pectoris at rest or with exertion. There is been no issues of overt CHF or pulmonary edema. There has been no near syncope or syncope. He has not had use nitroglycerin sublingual. He underwent noninvasive/invasive evaluation in 2018. The results are as noted below. Intake Vital Signs11/02/19 Height 5 ft 11.5 in 11/02/19 Weight: 198 lb 4 oz 11/02/19 BP 140/84 H Intake Visit Reasons: 9 M FU\[facility] Chaplain Required: No Accompanied by: Self Allergies No Known Allergies Allergy (Verified 11/02/19 16:07) Medications Aspirin [Aspirin, Baby] 81 mg PO DAILY@0800 04/14/15 [History Confirmed 11/02/19] Atorvastatin Calcium [Lipitor] 80 mg PO QHS 04/14/15 [History Confirmed 11/02/19] Citalopram [Celexa] 20 mg PO DAILY 04/14/15 [History Confirmed 11/02/19] isosorbide mononitrate 30 mg tablet,extended release 24 hr 30 mg PO DAILY #90 tab 10/16/19 [Rx Confirmed 11/02/19] B-complex with vitamin C 1 tab PO DAILY 11/02/19 [History Confirmed 11/02/19] cholecalciferol (vitamin D3) 25 mcg (1,000 unit) tablet 25 mcg PO DAILY 11/02/19 [History Confirmed 11/02/19] metoprolol succinate 50 mg tablet,extended release 24 hr 50 mg PO DAILY 11/02/19 [History Confirmed 11/02/19] nitroglycerin 0.4 mg sublingual tablet 0.4 mg SUBLINGUAL Q5M PRN #90 tab 11/02/19 [Rx Confirmed 11/02/19] thiamine HCl (vitamin B1) 100 mg tablet 100 mg PO DAILY 11/02/19 [History Confirmed 11/02/19] [facility] Medical History Pure hypercholesterolemia (Chronic) Chest pain (Acute) Nonrheumatic mitral valve disorder (Chronic) Presence of stent in coronary artery (Chronic 03/15/15) Essential hypertension (Chronic) Myocardial infarction (Chronic) 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 Ranjith Dueñas MD) Smoking Status: Current some day smoker alcohol intake: current alcohol intake frequency: a few times a week Alcohol type: beer substance use type: does not use caffeine: Yes Type: coffee Number of servings: 3 what type of physical activity do you participate in: none seatbelt use: always do you feel safe at home: Yes ROS Const Const: Negative for fatigue, weakness, frequent falls, excessive sweating, weight gain or weight loss Eyes Eyes: Negative for transient loss of vision, blurry vision or change in vision ENT ENT: Negative for dizziness or balance problems Cardio Chest Pain: No Palpitations: No Edema: None Muscle aches with walking: None Resp Respiratory: Negative for SOB with activity or SOB at rest GI GI: Negative vomiting or vomiting blood/hematemesis : Negative for hematuria Musc Musc: Negative for muscle aches/ myalgia, muscle weakness, joint pain or balance problems Skin Skin: Negative non-healing lesions or rash Neuro Neuro: Negative for dizziness, lightheadedness, orthostatic symptoms, frequent falls, weakness or blurry vision [place]ola Hematologic/Lymphatic: Negative for easy bleeding Endo Endo: Negative for fatigue or excessive sweating Psych Psych: Negative for anxiety or depression Allergy Allergy/Immunology: Negative for hives, Negative for rash Cardiology Exam Const Appearance: cooperative, healthy appearing, comfortable, no acute distress, well developed and well groomed Nutritional Appearance: average body habitus and well nourished Orientation: alert, awake and oriented x3 Head Head: normal to inspection, normocephalic and atraumatic Ears: hearing grossly normal bilaterally Nose: external nose normal Face and Sinus: face symmetric Mouth: oral mucosae normal Teeth and gingiva: fair dentition Eyes Eyelids: eyelids normal Conjunctivae: conjunctivae normal Pupils: PERRL EOM: EOM intact bilaterally Neck Neck: normal visual inspection, full ROM and no JVD Carotids: normal carotid upstroke Chest Chest inspection: normal inspection of the chest, symmetric chest movement and normal respiratory effort; negative cough Auscultation: Bilateral: Clear to Auscultation Cardio Palpation: normal PMI Rate: regular rate Rhythm: regular rhythm Heart sounds: S1 normal and S2 normal; negative rub, gallop or murmur GI GI: normal to inspection, soft and bowel sounds present Neuro General: alert, awake, oriented x3 and moves all extremities Skin Skin: no rashes or lesions noted Extremities Pulses: Normal: Right Posterior Tibial Pulse, Left Posterior Tibial Pulse, Right Radial Pulse, Left Radial Pulse Lower Extremity Edema: None: Bilateral Psych Psychological: normal affect Assessment AND Plan 1. Atherosclerosis of pala coronary artery of pala heart without angina pectoris I25.10 PTCA/JENNY to distal L CFX AND OM, distal 60% stenosis mid-RCA not treated 03/15/15 Plan At the present time he appears to be doing well. He will continue his current medical management. It was not felt he required further cardiac diagnostic studies or therapeutic intervention. 2. Presence of stent in coronary artery Z95.5 PTCA/JENNY to distal L CFX AND OM, distal 60% stenosis mid-RCA not treated 03/15/15 Plan Again he appears to be doing well overall. We will continue his current medical therapy and follow-up. 3. Nonrheumatic mitral valve disorder I34.9 Plan He does have a history of MR. He appears to be doing well. There is been no significant change based upon history or examination. He will be monitored for any change. Over time he may need future outpatient cardiovascular follow-up with echocardiographic studies. 4. Pure hypercholesterolemia E78.00 Plan A copy of his lipid labs will be appreciated for continuity of care. 5. Essential hypertension I10 Plan He does check his blood pressure at home. He states for the most part his blood pressure is under good control. If his blood pressure does elevate then he may need further adjustment of his medications. Plan Detail Other Medications New: Additional Comments Otherwise he will be scheduled for an outpatient visit approximately 6 months and as needed sooner. Thank you for allowing me to participate in the care of your patient. Please don't hesitate to call if any issues arise. This note was generated using a voice recognition system and there may be incorrect words, spelling or punctuation that were not noted when reviewing the office note prior to saving. Follow Up 6 Months (PFM) Coding Level of Care Code Off vis,est,level 3 Diagnoses Atherosclerosis of pala coronary artery of pala heart without angina pectoris I25.10 [place] vs. transplanted heart: pala heart Presence of stent in coronary artery Z95.5 Nonrheumatic mitral valve disorder I34.9 Pure hypercholesterolemia E78.00 Essential hypertension I10 Coding Level of Care Code Off vis,est,level 3 Diagnoses Atherosclerosis of pala coronary artery of pala heart without angina pectoris I25.10 [place] vs. transplanted heart: pala heart Presence of stent in coronary artery Z95.5 Nonrheumatic mitral valve disorder I34.9 Pure hypercholesterolemia E78.00 Essential hypertension I10 Supplemental Info Supplemental Information Heart catheterization from 10/21/2018: CORONARY ANGIOGRAPHY DOMINANCE: Left Dominant LEFT HEART ASSESSMENT Left Ventricular Ejection Fraction: by LV Gram 55 % Inferior Basal Hypokinesis Normal Left Ventricular End Diastolic Pressure LVEDP: 12 mmHg LEFT MAIN: Angiographically normal LEFT ANTERIOR DESCENDING ARTERY: Mild luminal irregularities CIRCUMFLEX ARTERY: Mild luminal irregularities PROX CIRC: Eccentric: 10-25 % Stenosis MID CIRC: Previously placed stent is patent RIGHT CORONARY ARTERY: MID RCA: 25 % Stenosis VALVE FINDINGS: Normal Aortic Valve function Normal Mitral Valve function AORTIC ROOT: Angiographically normal Echocardiogram from 10/04/2015: Interpretation Summary Left ventricular systolic function is normal. The estimated ejection fraction is 60 %. Mild concentric left ventricular hypertrophy. Mild (1+) mitral valve insufficiency. Trivial tricuspid valve insufficiency. Mild focal aortic valve calcification. Trivial pulmonic valve insufficiency. Nuclear stress test from 09/16/2018: Procedure: Stress nuclear imaging study Indications: Chest [...] Cardiolite study reports an LVEF of 59%. Labs LDL Cholesterol 80 mg/dL (0-130) 10/14/17 HDL Cholesterol 37 mg/dL (40-) L 10/14/17 Triglycerides 101 mg/dL (-199) 10/14/17 VLDL Cholesterol 20 mg/dL (5-40) 10/14/17 Diagnostics Electrocardiogram 10/08/18 Echocardiogram 10/04/15 Stress Test Nuclear Medicine 09/16/18 Stress Test 09/16/18 Cardiac Catheterization 10/21/18 Chest X-Ray 10/08/18 11/02/19 4194 <Electronically signed by Ranjith Dueñas MD> Date Ranjith Dueñas MD Cosigner Signature: Date (if applicable) CC: Catherine Palumbo Start: 02-24-2019 End: 02-24-2019 Cardiology Visit Report Comments: See Note; NOTES: [facility] [address] [place] [address] OFFICE VISIT Date of Service: 02/24/19 MR#: [id number] Acct: [id number] Name: RICKI BHARDWAJ Rep #: [id number] : 1945 Provider: MERARI Gao Age/Sex: 73/M Location: [facility] Status: Signed HPI HPI History of Present Illness Details: RICKI BHARDWAJ, is a 73 M who presents to the office today for a cardiovascular outpatient follow-up. He has a history of an acute inferolateral ST-T segment elevation myocardial infarction in February of 2015 with thrombectomy and stenting to his circumflex and OM. He also has a history of mitral valve disease, hypertension, and hyperlipidemia. He denies chest, arm, jaw, or neck discomfort. His exercise tolerance is stable. He denies symptoms of CHF, palpitations, lightheadedness, dizziness, near syncope, or syncopal episodes. He denies edema or claudication issues. He denies orthopnea, PND, fever, chills, blood in urine, blood in stool, myalgia, or unexplainable fatigue. Intake Vital Signs02/24/19 Height 5 ft 11.5 in 02/24/19 Weight: 192 lb 4 oz 02/24/19 Body Mass Index (BMI) 26.4 Intake Visit Reasons: 6 m [facility] Chaplain Required: No Is patient in pain?: No Allergies No Known Allergies Allergy (Verified 02/24/19 13:04) Medications Aspirin [Aspirin, Baby] 81 mg PO DAILY@0800 04/14/15 [History Confirmed 02/24/19] Atorvastatin Calcium [Lipitor] 80 mg PO QHS 04/14/15 [History Confirmed 02/24/19] Citalopram [Celexa] 20 mg PO DAILY 04/14/15 [History Confirmed 02/24/19] Metoprolol(XL)Succ [Toprol Xl (Beta Mackenzie)] 25 mg PO DAILY 04/14/15 [History Confirmed 02/24/19] Nitroglycerin (INPATIENT USE) [Nitrostat] 0.4 mg SUBLINGUAL Q5M PRN 04/14/15 [History Confirmed 02/24/19] isosorbide mononitrate ER 30 mg tablet,extended release 24 hr 30 mg PO DAILY #90 tab 10/21/18 [Rx Confirmed 02/24/19] PFSH Medical History Chest pain (Acute) Nonrheumatic mitral valve disorder (Chronic) Presence of stent in coronary artery (Chronic 03/15/15) Essential hypertension (Chronic) Myocardial infarction (Chronic) Hyperlipidemia (Chronic) 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) 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 (Chronic) Hypertension (Inactive) Mitral valve disorder (Inactive) Surgical History Status post percutaneous transluminal coronary angioplasty (Chronic 02/24/15) History of appendectomy (Resolved) Postsurgical percutaneous transluminal coronary angioplasty (PTCA) status (Inactive) Family History Father CVA (cerebral vascular accident) Mother Rheumatic fever FH: CABG (coronary artery bypass surgery) Social History (Updated 02/24/19 @ 13:38 by CELESTINA GoldbergC) Smoking Status: Current some day smoker alcohol intake: current alcohol intake frequency: a few times a week Alcohol type: beer substance use type: does not use caffeine: Yes Type: coffee Number of servings: 3 what type of physical activity do you participate in: none seatbelt use: always do you feel safe at home: Yes ROS Const Const: Negative for fatigue, weakness, body ache, fever(s) or chills ENT ENT: Negative for dizziness Cardio Chest Pain: No Palpitations: No Edema: None Muscle aches with walking: None Resp Respiratory: Negative for SOB with activity, SOB at rest, SOB orthopnea\SOB lying down or paroxysmal nocturnal dyspnea GI GI: Negative nausea, vomiting blood/hematemesis, bright, red blood in stools or black,tarry stools : Negative for hematuria or frequent nighttime urination/ nocturia Musc Musc: Negative for muscle aches/ myalgia Skin Skin: Negative non-healing lesions or rash Neuro Neuro: Negative for dizziness, lightheadedness, near syncope, syncope, orthostatic symptoms or weakness Endo Endo: Negative for fatigue Allergy Allergy/Immunology: Negative for rash Cardiology Exam Const Appearance: cooperative, healthy appearing, comfortable and no acute distress Nutritional Appearance: average body habitus and well nourished Orientation: alert, awake and oriented x3 Head Head: normal to inspection Ears: hearing grossly normal bilaterally Nose: external nose normal Face and Sinus: face symmetric Mouth: oral mucosae normal Eyes General: appearance normal, both eyes and all related structures Eyelids: eyelids normal EOM: EOM intact bilaterally Neck Neck: normal visual inspection and no JVD Carotids: normal carotid upstroke Chest Chest inspection: normal inspection of the chest, symmetric chest movement and normal respiratory effort; negative cough Auscultation: Bilateral: Clear to Auscultation Cardio Rate: regular rate Rhythm: regular rhythm Heart sounds: S1 normal and S2 normal; negative rub, gallop or murmur GI GI: normal to inspection Neuro General: alert, awake, oriented x3 and CN's II-XI intact bilaterally Skin Skin: no rashes or lesions noted Extremities Pulses: Normal: Right Posterior Tibial Pulse, Left Posterior Tibial Pulse, Right Radial Pulse, Left Radial Pulse Lower Extremity Edema: None: Bilateral Psych Psychological: normal affect Assessment AND Plan 1. 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 Patient denies any chest pain, arm pain, jaw pain, neck pain, shortness of breath, or fatigue suggestive of angina at this time. We will continue to monitor. We will not make any medication regimen changes and will continue risk factor modification. 2. Presence of stent in coronary artery Z95.5 PTCA/JENNY to distal L CFX AND OM, distal 60% stenosis mid-RCA not treated 03/15/15 Plan His previously placed stent was noted to be patent in his mid circumflex. He will continue with her stress and lifestyle modification. We will continue to monitor. 3. Essential hypertension I10 Plan We will not make any medication regimen changes. When reviewing medications he is no longer on lisinopril. The exact reason for discontinuation is unclear at this time. He was asked to confirm medications at home. It is possible that after his heart catheterization when isosorbide was added his lisinopril was discontinued, though this is not documented. It is also possible that his prescription ran out and it was not refilled. However, his blood pressure is well controlled and he is clinically doing well. Thus, we will continue to monitor. 4. Pure hypercholesterolemia E78.00 Plan Lipid panel from September 2017 showed cholesterol: 137, HDL: 37, LDL: 80, triglycerides: 101. He will continue the current high-dose statin medication. He states this is being monitored by primary care physician. Plan Detail Additional Comments Thank you for allowing us to participate in the patient's plan of care, if you have any questions please do not hesitate to call. This note was generated using a voice recognition system and there may be incorrect words, spelling, or punctuation that were not noted upon reviewing the office note prior to saving. Follow Up 6 Months (PFM) Coding Level of Care Code Off vis,est,level 3 Diagnoses Atherosclerosis of pala coronary artery of pala heart without angina pectoris I25.10 [place] vs. transplanted heart: pala heart Presence of stent in coronary artery Z95.5 Essential hypertension I10 Pure hypercholesterolemia E78.00 Hyperlipidemia type: pure hypercholesterolemia Coding Level of Care Code Off vis,est,level 3 Diagnoses Atherosclerosis of pala coronary artery of pala heart without angina pectoris I25.10 [place] vs. transplanted heart: pala heart Presence of stent in coronary artery Z95.5 Essential hypertension I10 Pure hypercholesterolemia E78.00 Hyperlipidemia type: pure hypercholesterolemia Supplemental Info Supplemental Information Heart catheterization from 10/21/2018: CORONARY ANGIOGRAPHY DOMINANCE: Left Dominant LEFT HEART ASSESSMENT Left Ventricular Ejection Fraction: by LV Gram 55 % Inferior Basal Hypokinesis Normal Left Ventricular End Diastolic Pressure LVEDP: 12 mmHg LEFT MAIN: Angiographically normal LEFT ANTERIOR DESCENDING ARTERY: Mild luminal irregularities CIRCUMFLEX ARTERY: Mild luminal irregularities PROX CIRC: Eccentric: 10-25 % Stenosis MID CIRC: Previously placed stent is patent RIGHT CORONARY ARTERY: MID RCA: 25 % Stenosis VALVE FINDINGS: Normal Aortic Valve function Normal Mitral Valve function AORTIC ROOT: Angiographically normal Echocardiogram from 10/04/2015: Interpretation Summary Left ventricular systolic function is normal. The estimated ejection fraction is 60 %. Mild concentric left ventricular hypertrophy. Mild (1+) mitral valve insufficiency. Trivial tricuspid valve insufficiency. Mild focal aortic valve calcification. Trivial pulmonic valve insufficiency. Nuclear stress test from 09/16/2018: Procedure: Stress nuclear imaging study Indications: Chest [...] Cardiolite study reports an LVEF of 59%. Diagnostics Electrocardiogram 10/08/18 Stress Test Nuclear Medicine 09/16/18 Stress Test 09/16/18 Cardiac Catheterization 10/21/18 Chest X-Ray 10/08/18 02/24/19 1338 <Electronically signed by Evangelist BELTRAN> Date Evangelist BELTRAN Cosigner Signature: Date (if applicable) CC: Catherine Palumbo Start: 02-10-2019 End: 02-10-2019 Abdomen/Pelvis W IV Cont ONLY Comments: See Note; NOTES: [facility] Imaging Services [address] [place] [id number] Abdomen/Pelvis W IV Cont ONLY MR#: [id number] Acct: [id number] Name: RICKI BHARDWAJ Rep #: [id number] : 1945 M 73 From: Jackson Daniel MD PCP: Catherine Garcia DO Status: REG CLI Study: Abdomen/Pelvis W IV Cont ONLY Date of Exam: 02/10/19 Exam# [id number] Ordering Dr: Torin Quiñonez MD STUDY: CT ABDOMEN AND PELVIS WITH AND WITHOUT CONTRAST REASON FOR EXAM: Male, 73 years old. Abdominal pain and hematuria RADIATION DOSAGE (If Supplied By Facility): CTDIvol = ( 16.36 ) mGy, DLP = ( 1748.04 ) mGycm TECHNIQUE: Transaxial images were obtained from the dome of the diaphragm to the symphysis pubis without oral contrast. 100ml IV Isovue 370 was administered. Sagittal and coronal images were reconstructed. Individualized dose optimization techniques were used for this CT. COMPARISON: : June 06 2018 FINDINGS: The visualized lung bases are unremarkable. The visualized portions of the heart are within normal limits. There is nonspecific fatty infiltration of the liver. There are multiple cysts of varying sizes. Bile ducts are not dilated.. Normal gallbladder and extrahepatic biliary system. Normal spleen. Normal pancreas. Normal bilateral adrenal glands. No evidence for renal obstruction or ureteral calculus. There are 2 simple cysts in each kidney and one small solid nodule in the left Normal visualized stomach. Normal small intestine. Diverticular changes of the descending and sigmoid colon without evidence for acute diverticulitis. There is no evidence for acute appendicitis.. Atherosclerotic changes of the aorta. 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 Normal inferior vena cava. Normal retroperitoneum. Nonspecific prominence of the prostate impinging upon the base of bladder which is incompletely distended and thick-walled. Small bilateral fat-containing inguinal hernias.. Lumbar spine demonstrates mild spondylosis No significant change since prior exam CT/Abdomen/Pelvis W IV Cont ONLY IMPRESSION: Multiple hepatic cysts.. Bilateral renal cysts and small solid left renal nodule unchanged since previous study Enlarged prostate impinging upon the base of bladder which is incompletely distended and thick-walled Diverticulosis of the descending and sigmoid colon without evidence for acute diverticulitis Electronically Signed: Jackson Daniel MD at 17:13 EDT , Service support , CC: Torin Quiñonez MD; Catherine Garcia DO Forestry Pilot: Signed Catherine Garcia Start: 10-08-2018 End: 10-08-2018 Chest PA and Lateral Comments: See Note; NOTES: [facility] Imaging Services [address] [place] [address] Chest PA and Lateral MR#: [id number] Acct: [id number] Name: RICKI BHARDWAJ Rep #: [id number] : 1945 M 73 From: Perry Paul MD PCP: Catherine Garcia DO Status: PRE [facility] [place] Study: Chest PA and Lateral Date of Exam: 10/08/18 Exam# [id number] Ordering Dr: Ranjith Dueñas MD STUDY: X-RAY CHEST REASON FOR EXAM: Male, 73 years old. Chest pain. TECHNIQUE: Frontal and lateral views of the chest. COMPARISON: 12/07/2014. FINDINGS: There is hyperinflation of the lungs consistent with chronic obstructive lung disease (COPD). No infiltrates or effusions. Small calcified granuloma in the left lung base. There is no demonstrated pleural abnormality. Normal size heart. Normal mediastinum and shayan. Normal visualized pulmonary arteries. Normal visualized aortic arch and descending thoracic aorta. There are diffuse degenerative changes of the visualized thoracic spine. Normal visualized ribs, clavicles, and shoulders. There is no demonstrated abnormality of the visualized soft tissue structures of the upper abdomen. RAD/Chest PA and Lateral IMPRESSION: There are findings consistent with COPD. There is no evidence of acute chest disease. Electronically Signed: Perry Paul MD at 19:56 EST , Service support , CC: Catherine Garcia DO; Ranjith Dueñas MD Forestry Pilot: Signed Catherine Garcia Start: 10-08-2018 End: 10-08-2018 Cardiology Visit Report Comments: See Note; NOTES: [facility] [address] [place] [address]. [address] [place], [place] [address] OFFICE VISIT Date of Service: 10/08/18 MR#: [id number] Acct: [id number] Name: RICKI BHARDWAJ Rep #: [id number] : 1945 Provider: MERARI Gao Age/Sex: 73/M Location[place] [facility] [place] Status: Signed HPI HPI Details: RICKI BHARDWAJ, is a 73 M who presents to the office today for a cardiovascular outpatient follow-up. He has a history of an acute inferolateral ST-T segment elevation myocardial infarction in February of 2015 with thrombectomy and stenting to his circumflex and OM. He also has a history of mitral valve disease, hypertension, and hyperlipidemia. After office appointment on 09/08/18 patient underwent a nuclear stress test for further evaluation. This was considered positive for stress-induced myocardial ischemia. Because of this, he will undergo a left heart catheterization for further evaluation. Patient continues to have the center chest ache. This is not associated with secondary symptoms. This is not nicely worse with exertion or activity. Pt. denies arm, jaw, or neck discomfort. His exercise tolerance is stable. Pt. denies symptoms of CHF, palpitations, lightheadedness, dizziness, near syncope, or syncopal episodes. Pt. denies edema or claudication issues. Pt. denies orthopnea, PND, fever, chills, blood in urine, blood in stool, myalgia, or unexplainable fatigue. Intake Vital Signs10/08/18 Height 5 ft 11 in 10/08/18 Weight: 200 lb 10/08/18 Body Mass Index (BMI) 27.8 10/08/18 Blood Pressure 156/96 H 10/08/18 Blood Pressure Location Lt brachial Intake Visit Reasons: update [facility] Chaplain Required: No Is patient in pain?: No Allergies No Known Allergies Allergy (Verified 10/08/18 09:34) Medications Aspirin [Aspirin, Baby] 81 mg PO DAILY@0800 04/14/15 [History Confirmed 09/08/18] Atorvastatin Calcium [Lipitor] 80 mg PO QHS 04/14/15 [History Confirmed 09/08/18] Citalopram [Celexa] 20 mg PO DAILY 04/14/15 [History Confirmed 09/08/18] Metoprolol(XL)Succ [Toprol Xl (Beta Mackenzie)] 25 mg PO DAILY 04/14/15 [History Confirmed 09/08/18] Nitroglycerin [Nitrostat] 0.4 mg SUBLINGUAL Q5M PRN 04/14/15 [History Confirmed 09/08/18] lisinopril 5 mg tablet 5 mg PO DAILY #30 tab 11/05/17 [Rx Confirmed 09/08/18] clopidogrel 75 mg tablet 75 mg PO DAILY #30 tab 10/08/18 [Rx Confirmed 10/08/18] PFSH Medical History Chest pain (Acute) Nonrheumatic mitral valve disorder (Chronic) Presence of stent in coronary artery (Chronic 03/15/15) Essential hypertension (Chronic) Myocardial infarction (Chronic) Hyperlipidemia (Chronic) 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) 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) Hypertension (Inactive) Mitral [...] ROS Const Const: Negative for fatigue, weakness, body ache, fever(s) or chills ENT ENT: Negative for dizziness Cardio Chest Pain: Yes Palpitations: No Edema: None Muscle aches with walking: None Resp Respiratory: Negative for SOB with activity, SOB at rest, SOB orthopnea\SOB lying down or paroxysmal nocturnal dyspnea GI GI: Negative nausea, vomiting blood/hematemesis, bright, red blood in stools or black,tarry stools : Negative for hematuria or frequent nighttime urination/ nocturia Musc Musc: Negative for muscle aches/ myalgia Skin Skin: Negative non-healing lesions or rash Neuro Neuro: Negative for dizziness, lightheadedness, near syncope, syncope, orthostatic symptoms or weakness Endo Endo: Negative for fatigue Allergy Allergy/Immunology: Negative for rash Cardiology Exam Const Appearance: cooperative, healthy appearing, comfortable and no acute distress Nutritional Appearance: well nourished and overweight Orientation: alert, awake and oriented x3 Head Head: normal to inspection Ears: hearing grossly normal bilaterally Nose: external nose normal Face and Sinus: face symmetric Mouth: oral mucosae normal Eyes General: appearance normal, both eyes and all related structures Eyelids: eyelids normal EOM: EOM intact bilaterally Neck Neck: normal visual inspection and no JVD Carotids: normal carotid upstroke Chest Chest inspection: normal inspection of the chest, symmetric chest movement and normal respiratory effort; negative cough Auscultation: Bilateral: Clear to Auscultation Cardio Rate: regular rate Rhythm: regular rhythm Heart sounds: S1 normal and S2 normal; negative rub, gallop or murmur GI GI: normal to inspection Neuro General: alert, awake, oriented x3 and CN's II-XI intact bilaterally Skin Skin: no rashes or lesions noted Extremities Pulses: Normal: Right Posterior Tibial Pulse, Left Posterior Tibial Pulse, Right Radial Pulse, Left Radial Pulse Lower Extremity Edema: None: Bilateral Psych Psychological: normal affect Assessment AND Plan 1. Atherosclerosis of pala coronary artery of pala heart without angina pectoris I25.10 PTCA/JENNY to distal L CFX AND OM, distal 60% stenosis mid-RCA not treated 03/15/15 Plan His most recent nuclear stress test in August 2018 was noted to be abnormal. He will undergo a left heart catheterization for further recommendation. He will continue with current medications. He was reminded of the importance of lifestyle and risk factor modification. Orders Orders: 2. Presence of stent in coronary artery Z95.5 PTCA/JENNY to distal L CFX AND OM, distal 60% stenosis mid-RCA not treated 03/15/15 Plan He will continue current treatment as outlined above. His heart catheterization at [facility] in February 2015 showed residual 50% stenosis in a small nondominant mid RCA. This will be further evaluated with the upcoming heart catheterization. Orders Orders: 3. Nonrheumatic mitral valve disorder I34.9 Plan His most recent echocardiogram in September 2015 showed ejection fraction of 60% and mild mitral valve insufficiency. He will continue current medications. We will continue to monitor through history, exam, and repeat echocardiogram as needed. Orders Orders: 4. Essential hypertension I10 Plan Patient's blood pressure is well-controlled. We will continue to monitor this. We will not make any medication regimen changes. His renal ultrasound from May 2018 showed a 2.3 similar solid mass in the mid to lower pole of the left kidney. 5. Pure hypercholesterolemia E78.00 Plan Lipid panel from September 2017 showed cholesterol: 137, HDL: 37, LDL: 80, triglycerides: 101. He will continue the current high-dose statin medication. Plan Detail Other Medications New: Additional Comments Thank you for allowing us to participate in the patient's plan of care, if you have any questions please do not hesitate to call. This note was generated using a voice recognition system and there may be incorrect words, spelling, or punctuation that were not noted upon reviewing the office note prior to saving. Coding Level of Care Code Off vis,est,level 2 Diagnoses Atherosclerosis of pala coronary artery of pala heart without angina pectoris I25.10 [place] vs. transplanted heart: pala heart Presence of stent in coronary artery Z95.5 Nonrheumatic mitral valve disorder I34.9 Essential hypertension I10 Pure hypercholesterolemia E78.00 Hyperlipidemia type: pure hypercholesterolemia Coding Level of Care Code Off vis,est,level 2 Diagnoses Atherosclerosis of pala coronary artery of pala heart without angina pectoris I25.10 [place] vs. transplanted heart: pala heart Presence of stent in coronary artery Z95.5 Nonrheumatic mitral valve disorder I34.9 Essential hypertension I10 Pure hypercholesterolemia E78.00 Hyperlipidemia type: pure hypercholesterolemia Supplemental Info Supplemental Information Echocardiogram from 10/04/15: Interpretation Summary Left ventricular systolic function is normal. The estimated ejection fraction is 60 %. Mild concentric left ventricular hypertrophy. Mild (1+) mitral valve insufficiency. Trivial tricuspid valve insufficiency. Mild focal aortic valve calcification. Trivial pulmonic valve insufficiency. Nuclear stress test from 09/16/18: Impression: 1. Technically adequate (percent predicted maximal [...] Cardiolite study reports an LVEF of 59%. Labs LDL Cholesterol 80 mg/dL (0-130) 10/14/17 HDL Cholesterol 37 mg/dL (40-) L 10/14/17 Triglycerides 101 mg/dL (-199) 10/14/17 VLDL Cholesterol 20 mg/dL (5-40) 10/14/17 Diagnostics Electrocardiogram 09/08/18 Echocardiogram 10/04/15 Stress Test Nuclear Medicine 09/16/18 Stress Test 09/16/18 Chest X-Ray 03/15/15 10/08/18 1008 <Electronically signed by Evangelist BELTRAN> Date Evangelist BELTRAN Cosigner Signature: Date (if applicable) CC: Catherine Palumbo Start: 10-08-2018 End: 10-13-2018 12 Lead EKG performed by KEILY Comments: See Note; NOTES: [facility] [address] [place] [address] 12 Lead EKG performed by KEILY 10/08/18 0940 MR#: [id number] Acct: [id number] Name: BENTONRICKI Lucian Rep #: [id number] : 1945 73 From: Evangelist H Roof FIRST COOK-C Attending Dr: Evangelist Gao NP Status: DEP AMB Ordering Dr: Evangelist Gao FIRST COOK-C Date: 10/08/18 Location: [facility] 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 ABNORMAL 10/09/18 1209 <Electronically signed by Evangelist Gao FIRST COOK-C> Date Evangelist Gao FIRST COOK-C CC: Catherine Garcia DO Date Dictated: 10/08/18939 Date Transcribed: 10/08/18939 Forestry Pilot: XANDER Signed Catherine Garcia Start: 09-16-2018 End: 09-16-2018 Stress Report Comments: See Note; NOTES: [facility] Cardiovascular Services [address] [place] [address] MR#: [id number] Acct: [id number] Name: RICKI BHARDWAJ Rep #: [id number] : 1945 73 From: Ranjith Dueñas MD Primary Care: Catherine Garcia DO Status: REG CLI Ordering Dr: Sex: Brigitte Edwards Stress Test Report Date: 09/16/2018 Procedure: [...] the office note prior to saving. 09/16/18 1255 <Electronically signed by Ranjith Dueñas MD> Date Ranjith Dueñas MD CC: Catherine Garcia DO; Ranjith Dueñas MD Date Dictated: 09/16/18 1238 Date Transcribed: 09/16/18 1238 Forestry Pilot: PM Signed Catherine Garcia Start: 09-08-2018 End: 09-08-2018 Cardiology Visit Report Comments: See Note; NOTES: [facility] [address] [place] [address] OFFICE VISIT Date of Service: 09/08/18 MR#: [id number] Acct: [id number] Name: RICKI BHARDWAJ Rep #: [id number] : 1945 Provider: Ranjith Dueñas MD Age/Sex: 73/M Location: [facility] [place] Status: Signed HPI HPI Details: RICKI BHARDWAJ, [...] in sinus rhythm. He has an inferior MD pattern of indeterminate age. 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 Atherosclerosis of pala coronary artery of pala heart without angina pectoris I25.10 Plan At the present time it is unclear whether his symptoms are related to his history of underlying CAD. He will have further evaluation with an exercise tolerance test/imaging study. In the meantime he will continue medical management. Orders Orders: 2. Presence of stent in coronary artery Z95.5 PTCA/JENNY to distal L CFX AND OM, distal 60% stenosis mid-RCA not treated 03/15/15 Plan He does have [...] Code Off vis,est,level 4 Diagnoses Atherosclerosis of pala coronary artery of pala heart without angina pectoris I25.10 [place] vs. 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 transplanted heart: pala heart Presence of stent in coronary artery [...] ECG demonstrated normal sinus rhythm with inferolateral MD of indeterminate age. The peak exercise ECG [...] Cosigner Signature: Date (if applicable) CC: Catherine Palumbo Start: 09-08-2018 End: 09-08-2018 12 Lead EKG performed by [facility] Comments: See Note; NOTES: [facility] [address] [place] [address] 12 Lead EKG performed by [facility] 09/08/18 1344 MR#: [id number] Acct: [id number] Name: RICKI BHARDWAJ Rep #: [id number] : 1945 73 From: Ranjith Dueñas MD Attending Dr: Ranjith Dueñas MD Status: DEP AMB Ordering Dr: Ranjith Dueñas MD Date: 09/08/18 Location[place] [facility] [place] Sex: M C Admitted: BMS/12 Lead EKG performed by [facility] ECG Report Interpretation Si nus Rhythm Inferior MD, age undetermined, cannot be excludedABNORMAL Electronically signed on 09/08/2018 at 17:25 by Ranjith Dueñas Software Version 8610 09/08/18 1727 Date Ranjith Dueñas MD CC: Catherine Garcia DO Date Dictated: 09/08/18 1344 Date Transcribed: 09/08/181343 Forestry Pilot: PM Signed Catherine Garcia Start: 09-02-2018 End: 09-03-2018 Thyroid Comments: See Note; NOTES: [facility] Imaging Services [address] [place] [address] Thyroid MR#: [id number] Acct: [id number] Name: RICKI BHARDWAJ Rep #: [id number] : 1945 M 73 From: Kimberly Olivas MD PCP: Catherine Garcia DO Status: REG CLI Study: Thyroid Date of Exam: 09/02/18 Exam# [id number] Ordering Dr: Catherine Garcia DO STUDY: THYROID ULTRASOUND REASON FOR EXAM: [...] Olivas MD at 10:47 EST Tel Direct: [phone], Service support , CC: Catherine Garcia DO Forestry Pilot: Signed Catherine Jose Work Phone: Start: 06-10-2018 End: 06-11-2018 Kidney and Bladder Comments: See Note; NOTES: [facility] Imaging Services [address] [place] [address] Kidney and Bladder MR#: [id number] Acct: [id number] Name: RICKI BHARDWAJ Rep #: [id number] : 1945 M 73 From: Jerome Mackay MD PCP: Catherine Garcia DO Status: REG CLI Study: Kidney and Bladder Date of Exam: 06/10/18 Exam# [id number] Ordering Dr: Yessica Siu FIRST COOK-C STUDY: RENAL ULTRASOUND - COMPLETE REASON FOR [...] EDT , Service support , CC: Catherine Garcia DO; Yessica Siu NP Forestry Pilot: Signed Catherine Garcia Work Phone: Start: 06-06-2018 End: 06-07-2018 CT Abd/Pelvis W/WO Contrast Comments: See Note; NOTES: [facility] Imaging Services [address] [place] [address] [address] Abd/Pelvis W/WO Contrast MR#: [id number] Acct: [id number] Name: RICKI BHARDWAJ Rep #: [id number] : 1945 M 73 From: Madan Marie MD PCP: Catherine Garcia DO Status: REG CLI Study: CT Abd/Pelvis W/WO Contrast Date of Exam: 06/06/18 Exam# [id number] Ordering Dr: Yessica Siu FIRST C[employer]-C STUDY: CT ABDOMEN AND PELVIS WITH AND [...] Tel , Service support , CC: Catherine Garcia DO; Yessica Siu NP Forestry Pilot: Signed Catherine Garcia Work Phone: Start: 10-24-2017 End: 10-24-2017 Cardiology Visit Report Comments: See Note; NOTES: [facility] [address] [place] [address] OFFICE VISIT Date of Service: 10/23/17 MR#: [id number] Acct: [id number] Name: RICKI BHARDWAJ Rep #: [id number] : 1945 Provider: Dana Matute Age/Sex: 72/M Location: [facility] Status: Signed HPI HPI Details: RICKI BHARDWAJ, [...] well. He does not have any chest discomfort/heaviness/tightne ss. His exercise tolerance is stable for his [...] Lt brachial Intake Visit Reasons: 6 M [facility] Chaplain Required: No Accompanied by: None Is patient in pain?: No Allergies No Known Allergies Allergy (Verified 10/23/17 14:37) Medications Aspirin [Aspirin, Baby] 81 mg PO DAILY@0800 04/14/15 [History Confirmed 10/23/17] Atorvastatin Calcium [Lipitor] 80 mg PO QHS 04/14/15 [History Confirmed 10/23/17] Citalopram [Celexa] 20 mg PO DAILY 04/14/15 [History Confirmed 10/23/17] Metoprolol(XL)Succ [Toprol Xl (Beta Mackenzie)] 25 mg PO DAILY 04/14/15 [History Confirmed [...] (Chronic) Hyperlipidemia (Chronic) 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 Assessment AND Plan 1. 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 We recommend that they continue with current aggressive medical management and risk factor modification. 2. Essential hypertension I10 KAREN Herman Slightly elevated today however at home patient states that his been adequately controlled. Will have patient continue to monitor. He will let us know if it is elevated. 3. Pure hypercholesterolemia E78.00; E78.0 KAREN Herman Recent lipid profile demonstrates total cholesterol of 137, HDL 37, LDL 80. Will continue to monitor. 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 transplanted heart: pala heart Essential hypertension I10 Hypertension type: essential hypertension Pure hypercholesterolemia E78.00; E78.0 Hyperlipidemia type: pure hypercholesterolemia 10/24/17 1055 <Electronically signed by Dana JONES> Date Dana JONES 10/24/17 1241<Electronically signed by Pacheco James MD> Cosigner Signature: Date (if applicable) Pacheco James MD CC: Catherine Palumbo Start: 10-14-2017 End: 10-14-2017 *Hepatic Function Panel Ranjith Dueñas MD Start: 10-14-2017 End: 10-14-2017 Lipid panel [AGGREGATE] Ranjith Dueñas MD Start: 04-22-2017 End: 04-22-2017 Dietary management education, guidance, and counseling Meghan Sanchez Start: 04-22-2017 End: 05-14-2017 *Hepatic Function Panel Ranjith Dueñas MD Start: 04-22-2017 End: 04-22-2017 Follow Up Appt 6 months Ranjith Dueñas MD Start: 04-22-2017 End: 05-14-2017 Lipid 1996 panel - Serum or Plasma Ranjith Dueñas MD Start: 04-22-2017 End: 04-22-2017 MMM Ranjith Dueñas MD Start: 04-22-2017 End: 05-14-2017 *Hepatic Function Panel Ranjith Dueñas MD Start: 04-22-2017 End: 04-22-2017 Follow Up Appt 6 months Ranjith Dueñas MD Start: 04-22-2017 End: 05-14-2017 Lipid panel [AGGREGATE] Ranjith Dueñas MD Start: 04-22-2017 End: 04-22-2017 MMM Ranjith Dueñas MD Start: 10-17-2016 End: 10-17-2016 Ecg routine ecg w/least 12 lds w/i&r Demetria Hartley FIRST [employer]OOK Work Phone: Start: 10-17-2016 End: 04-02-2017 Follow Up Appt Other Demetria Hartley NP Work Phone: Start: 10-17-2016 End: 10-17-2016 Electrocardiogram, complete Demetria Hartley FIRST [employer] Work Phone: Start: 10-17-2016 End: 04-02-2017 Follow Up Appt Other Demetria Hartley FIRST [employer] Work Phone: Start: 04-20-2016 End: 10-05-2016 Follow Up Appt 6 months Ranjith Dueñas MD Start: 04-20-2016 End: 04-02-2017 Follow Up Appt Other Ranjith Dueñas MD Start: 04-20-2016 End: 10-05-2016 MMM Ranjith Dueñas MD Start: 04-20-2016 End: 10-05-2016 Follow Up Appt 6 months Ranjith Dueñas MD Start: 04-20-2016 End: 04-02-2017 Follow Up Appt Other Ranjith Dueñas MD Start: 04-20-2016 End: 10-05-2016 MMM Ranjith Dueñas MD Start: 12-29-2015 End: 12-29-2015 Ecg routine ecg w/least 12 lds w/i&r [MEASUREMENTS ANALYSIS] Date of Test: 12/29/2015 09:54:20; Heart Rate: 59; NM Interval: 176; QRS: 102; QT Interval: 408; Corrected QT Interval (QTc): 407; P Wave [place]: 23; QRS Wave [place]: 11; T Wave [place]: 15; Blood Pressure: 148/84 [ECG DIAGNOSTIC STATEMENTS] Date of Test: 12/29/2015 09:54:20; Summary: 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 ABNORMAL Catherine Jose Work Phone: Comment on above: sinus reyna -no acute changes Start: 10-10-2015 End: 10-11-2015 Thyroid Comments: See Note; NOTES: [facility] Imaging Services [address] [place] [address] Verdana 4d Thyroid MR#: [id number] Acct: [id number] Name: RICKI BHARDWAJ Rep #: [id number] : 1945 M 70 From: Franko Julien MD PCP: Catherine Garcia DO Status: REG CLI Study: Thyroid Date of Exam: 10/10/15 Exam# [id number] Ordering Dr: Catherine Garcia DO STUDY: THYROID ULTRASOUND REASON FOR EXAM: Male, 70 years old. History of thyroid nodule. TECHNIQUE: Ultrasound evaluation of the thyroid was performed with real-time and static tong-scale imaging. COMPARISON: Comparison is made with prior study dated May 20, 2012. FINDINGS: RIGHT LOBE: The right lobe of the thyroid gland is enlarged and measures 6.3 cm x 2.6 cm x 2.5 cm. There [...] There are 3 subcentimeter hypoechoic solid and cystic nodules scattered throughout the left lobe. The [...] Franko Julien MD at 8:04 EST Tel [phone], Service support [phone], CC: Catherine Garcia DO Forestry Pilot: Signed Catherine Garcia Work Phone: Start: 10-06-2015 End: 10-06-2015 Follow Up Appt 6 months Dana Matute PA-C Work Phone: Start: 10-06-2015 End: 10-05-2016 Follow Up Appt Other Dana Matute PA-C Work Phone: Start: 10-06-2015 End: 10-06-2015 PF Dana Matute PA-C Work Phone: Start: 10-06-2015 End: 10-06-2015 Follow Up Appt 6 months Dana Matute PA-C Work Phone: Start: 10-06-2015 End: 10-05-2016 Follow Up Appt Other Dana Matute PA-C Work Phone: Start: 10-06-2015 End: 10-06-2015 PFM Dana Matute PA-C Work Phone: Start: 10-04-2015 End: 10-04-2015 Echocardiogram Complete Comments: See Note; NOTES: [facility] Cardiovascular Services [address] [place] [address] Echo Complete 10/04/15 0956 MR#: [id number] Acct: [id number] Name: RICKI BHARDWAJ Rep #: [id number] : 1945 70 From: Ranjith Dueñas MD Attending Dr: Ranjith Dueñas MD Status: REG CLI Ordering Dr: Ranjith Dueñas MD Date: 10/04/15 Location: [facility] Sex: M C Admitted: Procedure This was a 2D Doppler, Color Flow transthoracic echocardiogram. The exam was of adequate technical quality. Exam performed in department. Left Ventricle Normal LV size. Mild concentric left ventricular hypertrophy. Left ventricular systolic function is normal. The estimated ejection fraction is 60 %. No regional wall motion abnormalities noted. Right Ventricle Normal RV size. Normal systolic function. Atria Normal left atrium. Normal right atrium. No doppler evidence for ASD. Mitral Valve There is no mitral annular calcification. Normal mitral valve. Mild (1+) mitral valve insufficiency. Tricuspid Valve Normal tricuspid valve. Trivial tricuspid valve insufficiency. Aortic Valve Trisinus/trileaflet aortic valve. Mild focal aortic valve calcification. Pulmonic Valve The pulmonic valve is not well visualized. Trivial pulmonic valve insufficiency. Great Vessels Normal sized aortic root. Pericardium/Pleural No pericardial effusion. MMode/2D Measurements AND Calculations LVIDd: 4.2 cm IVSd: 1.5 cm Ao root diam: 3.5 cm LAV(MOD-bp): 36.4 ml LVIDs: 2.9 cm LVPWd: 1.3 cm Ao root area: 9.4 cm2 LAV(MOD-bp) Indexed: 17.2 ml /m2 RVDd: 3.1 cm FS: 30.9 % LA dimension: 3.6 cm LAV(MOD-sp2): 41.2 ml LAV(MOD-sp4): 30.9 ml LA A4 area: 13.7 cm2 RA A4 area: 12.2 cm2 Doppler Measurements AND Calculations MV E max lamont: Lat Peak E' Lamont: Med Peak E' Lamont: Ao V2 max: 82.6 cm/sec 4.9 cm/sec 5.8 cm/sec 122.9 cm/sec MV A max lamont: Ao max P.0 mmHg 99.3 cm/sec MV E/A: 0.83 LV V1 max: 100.4 cm/sec PA V2 max: 109.4 cm/sec E/E' lat: 16.7 E/E' med: 14.3 LV V1 max P.0 mmHg PA max P.8 mmHg Interpretation Summary Left ventricular systolic function is normal. The estimated ejection fraction is 60 %. Mild concentric left ventricular hypertrophy. Mild (1+) mitral valve insufficiency. Trivial tricuspid valve insufficiency. Mild focal aortic valve calcification. Trivial pulmonic valve insufficiency. Ordering Physician: Ranjith Dueñas Referring Physician: Catherine Garcia M.D. Performed By: Gina Davalos RVT 10/04/15 1127 Date Ranjith Dueñas MD CC: Catherine Garcia DO; Ranjith Dueñas MD Date Dictated: 10/04/1556 Date Transcribed: 10/04/151126 Forestry Pilot: Signed Catherine Garcia Start: 07-07-2015 End: 10-05-2016 Echocardiography Ranjith Dueñas MD Start: 07-07-2015 End: 09-29-2015 Follow Up Appt 3 months Ranjith Dueñas MD Start: 07-07-2015 End: 09-29-2015 JIN Dueñas MD Start: 07-07-2015 End: 10-05-2016 Echocardiography Ranjith Dueñas MD Start: 07-07-2015 End: 09-29-2015 Follow Up Appt 3 months Ranjith Dueñas MD Start: 07-07-2015 End: 09-29-2015 JIN Dueñas MD Start: 06-24-2015 End: 06-24-2015 CR - Individual Treatment Plan Comments: See Note; NOTES: [facility] Cardiac Rehab [address] [place] [address] CR - Individual Treatment Plan MR#: [id number] Acct: [id number] Name: RICKI BHARDWAJ Rep #: [id number] : 1945 70 From: Froilan Chan PCP: Catherine Garcia DO DOS: 06/24/15 Exercise - 60-Day Assessment - Visit Date of Eval: 06/24/15 - Stages of Change Stages of Change:: Action - Exercise Prescription Mode:: Treadmill, Rower, Airdyne, NuStep Frequency (x/week): 3 Duration (Minutes):: 30-35 METs: 8.5 Target Heart Rate:: 132-141 - Hypertension Resting Blood Pressure:: 100/70 Peak Exercise Blood Pressure:: 170/90 Medication Changes:: No - Intervention Home Exercise/Activity Goal:: Sitting Time <3 hrs/day - Education Attended class for:: Warm-up, RPE APOLINAR Scale, S/S, Safe Exercise, Self-Monitoring - Exercise Program Goals Exercise Program Goals: Aerobic Activity >30 min, B/P <140/90 Nutrition - 30-Day Assessment - Program Goals [...] Used:: HANDS Depression Questionnaire Self-reported stress:: none Tests Completed: Mood Scale Test Total Mood Screening Score:: 1 Self-Efficacy Score:: 9 - Intervention PS - Interventions: Yes Attend Stress Management Classes, Yes Uses Stress Management Skills, No Referral to Mental Health, No Referral to [facility] Case Management, No Referral to Physician - Education Attended classes for:: Coping techniques, Signs AND symptoms of depression, Stress management, Relaxation techniques - Patient/Program Goal Preventative Medication(s):: Aspirin, ROSANNA inhibitor, Clopidogrel, Beta mackenzie, Statin/lipid - Assistive Devices Assistive Devices:: None Fall [...] endurance and modality and progress per protocol. 06/24/15 8056 <Electronically signed by Ranjith Dueñas MD> Cosigner Signature: Date Ranjith Dueñas MD CC: Signed Catherine Garcia Start: 05-25-2015 End: 05-25-2015 CR - Individual Treatment Plan Comments: See Note; NOTES: [facility] Cardiac Rehab [address] [place] [address] CR - Individual Treatment Plan MR#: [id number] Acct: [id number] Name: RICKI BHARDWAJ Rep #: [id number] : 1945 70 From: Froilan Chan PCP: Catherine Garcia DO DOS: 05/23/15 Exercise - 30-day Assessment [...] <3 hrs/day - Education Attended class for:: Warm-up, RPE APOLINAR Scale, S/S, Safe Exercise, Self-Monitoring - Exercise Program Goals Exercise Program Goals: Aerobic Activity >30 min, B/P <140/90 Nutrition - 30-Day Assessment - Program Goals Nutrition Program Goals: LDL <70. Total Cholesterol <200. HDL >45. Triglycerides <150. HgbA1C <7%. BMI <25 - Visit Date of Assessment:: 05/23/15 - Stages of Change Stages of Change:: Action - Lipids Has the patient seen the dietitian?: No - Diabetes Diabetes:: No - Weight Management Weight:: 196 kg - Intervention Referral to dietitian:: No [...] education - Family Support Do you have family [...] Referral to Mental Health, No Referral to [facility] Case Management, No Referral to Physician - Education Attended classes for:: Coping techniques, Signs AND symptoms of depression, Stress management, Relaxation techniques - Patient/Program Goal Preventative Medication(s):: Aspirin, Clopidogrel [...] Signature: Date Pacheco James MD CC: Signed Catherine Garcia Start: 04-15-2015 End: 04-15-2015 CR - Individual Treatment Plan Comments: See Note; NOTES: [facility] Cardiac Rehab [address] [place] [address] CR - Individual Treatment Plan MR#: [id number] Acct: [id number] Name: RICKI BHARDWAJ Rep #: [id number] : 1945 69 From: Kamron Wilks PCP: Catherine Garcia DO DOS: 04/14/15 Exercise - Initial Assessment - Visit Date of Eval: 04/14/15 - Stages of Change Stages of Change:: Preparation, Action - Stress Test Date: 04/06/15 HR (bpm):: 141 EKG: NSR MET LEVEL:: 10 Blood Pressure: 176/84 - Exercise Prescription Mode:: Treadmill, Biodyne, Rower, Airdyne, NuStep Angina with exercise?: No Target Heart Rate:: 105-120 - Hypertension Do any of the following apply?: Yes, Medication, Diet Resting Blood Pressure:: 130/80 Nutrition - Initial Assessment - Program Goals Nutrition Program Goals: LDL <70. Total Cholesterol <200. HDL >45. Triglycerides <150. HgbA1C <7%. BMI <25 - Visit Date of Assessment:: 04/14/15 - Stages of Change Stages of Change:: [...] Goal (kg):: 78.018 kg Goal % Body Fat:: 27 - Intervention Referral to dietitian:: No [...] Triglycerides <150. HgbA1C <7%. BMI <25 - Lipids Total Cholesterol (mg/dL) Goal = less than 200 mg/dL: 147 HDL Cholesterol (mg/dL) Goal = less than 45 mg/dL: 42 LDL Cholesterol (mg/dL) Goal = less than 70 mg/dL: 92 - Weight Management Height: 1.8 m Weight:: [...] at 1ppd How many years have you smoked?: 4 - quit 14 years, now smoked for 4 years Do you use smokeless tobacco?: No - Intervention Smoking Cessation Referral:: Yes Individual Education/Counseling:: Yes Education Schedule Given:: Yes Psychosocial - Initial Assess - Target Goals Target Goals: Assess presence or absence of depression. Using a valid screening tool, maximizes coping skills. Positive support system - Stages of Change Stages of Change:: Preparation, Action - Psychosocial Test Tool Used:: HANDS Depression Questionnaire Self-reported stress:: no Tests Completed: Mood Scale Test Total Mood Screening Score:: 1 - normal score Self-Efficacy Score:: 10 - Intervention PS - Interventions: Yes Attend Stress Management Classes, Yes Uses Stress Management Skills, No Referral to Mental Health, No Referral to [facility] Case Management, No Referral to Physician - Patient/Program Goal Preventative Medication(s):: Aspirin, ROSANNA inhibitor, Beta mackenzie - on Brilinta, Statin/lipid - Assistive Devices Assistive Devices:: None Fall Risk Assessed:: Yes Psychosocial - [...] Used:: HANDS Depression Questionnaire Self-Efficacy Score:: 10 04/14/15 1310 <Electronically signed by Kamron Wilks > Date Kamron Wilks Outcome assessment reviewed. Exercise plan approved as [...] Signature: Date Ranjith Dueñas MD CC: Signed Catherine Garcia Start: 04-06-2015 End: 04-06-2015 Stress Report Comments: See Note; NOTES: [facility] Cardiovascular Services [address] [place] [address] STRESS TEST REPORT 04/05/15 1305 MR#: [id number] Acct: [id number] Name: RICKI BHARDWAJ Rep #: [id number] : 1945 69 From: Ranjith Dueñas MD Primary Care: Catherine Garcia DO Status: REG CLI Ordering Dr: Ranjith Dueñas MD Service Date: 04/05/15 Order Date: 04/05/15 Sex: M C DATE OF SERVICE: 04/05/2015 EXERCISE TOLERANCE TEST: The patient exercised on a Eder protocol for 9 minutes completing stage 3 achieving a peak heart rate of 141 beats per minute (92% predicted maximum heart rate) and a peak blood pressure of 176/84 mmHg and a peak MET capacity of 10 METS. The baseline ECG demonstrated normal sinus rhythm with inferolateral MD of indeterminate age. The peak exercise ECG [...] changes. Ranjith Dueñas MD T: MARCOS JOB: [id number] 04/06/15 0948 <Electronically signed by Ranjith Dueñas MD> Date Ranjith Dueñas MD CC: Catherine Garcia DO; Ranjith Dueñas MD Date Dictated: 04/05/151304 Date Transcribed: 04/05/151304 Forestry Pilot: Signed Catherine Garcia Start: 04-06-2015 End: 04-06-2015 Emergency Department Summary Comments: See Note; NOTES: [facility] Medical Records Department [address] [place] [address] Emergency Department Summary MR#: [id number] Acct: [id number] Name: RICKI BHARDWAJ Rep #: [id number] : 1945 69 From: Hong Blair DO PCP: Catherine Garcia DO Status: [facility] DATE OF SERVICE: 03/15/2015 The patient was seen and assessed by Dr. Jose Alejandro and was found to have an acute myocardial infarction. When the patient went to CT scanner to evaluate his head injury, he became more unresponsive and started to have desaturations. He was brought back to the resuscitation bay while Dr. Alejandro was speaking with the transferring physician, the decision was made to intubate the patient using 20 of etomidate and rocuronium. The patient underwent RSI with a 7.5 endotracheal tube and it was passed easily on the first attempt without difficulty, secured at 23 cm, good color change, equal breath sounds bilaterally. The patient was started on Versed for transfer. Please see Dr. Alejandro's dictation for the rest of the ED course and his assessment. Hong Blair DO T: MARCOS JOB: [id number] 04/06/15805 <Electronically signed by Hong Blair DO> Date Hong Rossy DO [facility] Signature (If Indicated): Date CC: Catherine Garcia DO Date Dictated: 03/25/15 155 Date Transcribed: 03/25/151558 Forestry Pilot: Signed Catherine Garcia Start: 03-31-2015 End: 09-29-2015 Cardiac Rehab Ranjith Dueñas MD Start: 03-31-2015 End: 09-29-2015 Cardiovascular stress test using treadmill Ranjith Dueñas MD Start: 03-31-2015 End: 04-01-2015 Documentation of current medications Ranjith Dueñas MD Start: 03-31-2015 End: 03-31-2015 Ecg routine ecg w/least 12 lds w/i&r Ranjith Dueñas MD Start: 03-31-2015 End: 03-31-2015 Follow Up Appt 3 months Ranjith Dueñas MD Start: 03-31-2015 End: 03-31-2015 PFM Ranjith Dueñas MD Start: 03-31-2015 End: 09-29-2015 Cardiac Rehab Ranjith Dueñas MD Start: 03-31-2015 End: 09-29-2015 Cardiovascular stress test using treadmill Ranjith Dueñas MD Start: 03-31-2015 End: 04-01-2015 Documentation of current medications Ranjith Dueñas MD Start: 03-31-2015 End: 03-31-2015 Electrocardiogram, complete Ranjith Dueñas MD Start: 03-31-2015 End: 03-31-2015 Follow Up Appt 3 months Ranjith Dueñas MD Start: 03-31-2015 End: 03-31-2015 PF Ranjith Dueñas MD Start: 03-16-2015 End: 03-16-2015 Emergency Department Summary Comments: See Note; NOTES: [facility] Medical Records Department [address] [place] [address] Emergency Department Summary MR#: [id number] Acct: [id number] Name: RICKI BHARDWAJ Rep #: [id number] : 1945 69 From: Jose Alejandro MD PCP: Catherine Garcia DO Status: [facility] ER DATE OF SERVICE: 03/15/2015 METHOD OF ARRIVAL: By EMS. CHIEF COMPLAINT: Chest pain. PRIMARY CARE: Dr. Garcia. BEAVERS HISTORY: A 69-year-old male has a history of heart disease. The patient comes in by squad with chest pain. The patient states it started about an hour ago. It has been continuous, simply describes the pain across his chest. He denies feeling short of breath, but has felt nauseous, no vomiting or diaphoresis. The patient apparently passed out at home causing a laceration to his right gnosticism with this as well. EMS EKG was transmitted and does show an acute inferior lateral MD. The STEMI team was activated prior to his arrival. PHYSICAL EXAMINATION: VITAL SIGNS: Noted. HEENT: Head exam reveals laceration on his right temporal area. His pupils are equal, round and reactive. TMs are pearly white. NECK: Supple. HEART: Regular. I do not appreciate any murmur, rub or gallop. LUNGS: Sound clear. ABDOMEN: Soft, nontender. NEUROLOGIC: He is alert and oriented. He did not know where he was when he was at [facility]. His GCS is 13. TESTS: A chest x-ray read by radiology as no acute pathology. CT of the brain was obtained due to his head injury prior to requiring anticoagulation, was no bleed. EKG again was from the field an acute MD. CBC: His white count is 15.1, hemoglobin 17 with 77 percent neutrophils, 14 percent lymphocytes. Chemistry panel remarkable for BUN is 19, creatinine is 1.6, troponin is negative. EMERGENCY DEPARTMENT COURSE: The patient was initially again resuscitated. Due to his concern with hitting his head, wanted to make sure there is no bleed before anticoagulation medication was given. Therefore, the CT was obtained and was negative by my read and radiology. The patient was given heparin, aspirin, and Brilinta. I spoke with Dr. Camp from [facility]. Due to his abnormal GCS and acut MD, it was elected to intubate the patient. Dr. [...] is currently hemodynamically stable. I do not believe air ambulance transport is indicated. The patient will be sent by local ground crew. Since the patient did have a cardiac arrest, the patient will not meet criteria for a door to balloon time of 90 minutes. This will be excluded. The patient was transferred by local ground crew in critical condition. Family was counseled. CLINICAL IMPRESSION: 1. Acute myocardial infarction. 2. Respiratory failure. 3. Intubation by Emergency Department physician. 4. Cardiac arrest. DISPOSITION: Transfer in critical condition. Critical care time is 30 minutes. Jose Alejandro MD C C: Catherine Garcia DO T: NTS JOB: [id number] 03/16/159 <Electronically signed by Jose Alejandro MD> Date Jose Alejandro MD CC: Catherine Garcia DO Date Dictated: 03/16/157 Date Transcribed: 03/16/157 Forestry Pilot: Signed Catherine Garcai Start: 03-15-2015 End: 03-15-2015 Brain/Head without Contrast Comments: See Note; NOTES: [facility] Imaging Services [address] [place] [address] CAT Scan Report MR#: [id number] Acct: [id number] Name: RICKI BHARDWAJ Rep #: [id number] : 1945 M 69 From: Jackson Daniel MD PCP: Catherine Garcia DO Status: REG ER Study: Brain/Head without Contrast Date of Exam: 03/15/15 Exam# [id number] Ordering Dr: Jose Alejandro MD STUDY: CT BRAIN WITHOUT CONTRAST REASON FOR EXAM: Male, 69 years old. Unresponsive status post myocardial infarction RADIATION DOSAGE (If Supplied By Facility): CTDIvol = ( 58.38 ) mGy, DLP = ( 1065.46 ) mGycm TECHNIQUE: Transaxial CT imaging of the brain was performed without administration of intravenous contrast material. COMPARISON: None. FINDINGS: Normal soft tissue structures. Normal calvarium. 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 There is mild cavernous carotid calcification Normal size ventricles and extra-axial spaces for the patient's age. Mild nonspecific periventricular white matter ischemic changes are seen.. Normal basal ganglia and thalami. Normal brainstem. Normal cerebellum. There is no intracranial hemorrhage. There are no findings of an acute ischemic infarction. Normal visualized paranasal sinuses. IMPRESSION: Periventricular white matter ischemic changes No evidence for acute bleed. MRI is recommended for more definitive evaluation Electronically Signed: Jackson Daniel MD at 17:27 EDT , Service support [phone], CC: Catherine Garcia DO; Jose Alejandro MD Forestry Pilot: Signed Catherine Garcia Start: 03-15-2015 End: 03-15-2015 Chest 1 View (Portable) Comments: See Note; NOTES: [facility] Imaging Services [address] [place] [id number] Radiology Report MR#: [id number] Acct: [id number] Name: RICKI BHARDWAJ Rep #: [id number] : 1945 M 69 From: Jackson Daniel MD PCP: Catherine Garcia DO Status: DEP ER Study: Chest 1 View (Portable) Date of Exam: 03/15/15 Exam# [id number] Ordering Dr: Jose Alejandro MD STUDY: X-RAY CHEST REASON FOR EXAM: Male, 69 years old. Chest pain status post endotracheal tube placement TECHNIQUE: AP portable COMPARISON: None. FINDINGS: Diminished inspiratory effort is seen. There is minimal atelectasis or scarring at the lung bases.. There is no demonstrated pleural abnormality. Heart is mildly enlarged. Normal mediastinum and shayan. Normal visualized pulmonary arteries. Normal visualized aortic arch and descending thoracic aorta. Endotracheal tube placement approximately 3.5 cm proximal to the aguila The dorsal spine demonstrate spondylosis. Normal visualized ribs, clavicles, and shoulders. There is no demonstrated abnormality of the visualized soft tissue structures of the upper abdomen. IMPRESSION: No acute cardiopulmonary pathology status post intubation Electronically Signed: Jackson Daniel MD at 22:36 EDT , Service support [phone], RAD/Chest 1 View (Portable) IMPRESSION: No acute cardiopulmonary pathology status post intubation Electronically Signed: Jackson Daniel MD at 22:36 EDT , Service support [phone], CC: Catherine Garcia DO; Jose Alejandro MD Forestry Pilot: Signed Catherine Garcia Start: 12-07-2014 End: 12-07-2014 Chest PA and Lateral Comments: See Note; NOTES: [facility] Imaging Services [address] [place] [address] Radiology Report MR#: [id number] Acct: [id number] Name: RICKI BHARDWAJ Rep #: [id number] : 1945 M 69 From: Chris Lo MD PCP: Catherine Garcia DO Status: REG CLI Study: Chest PA and Lateral Date of Exam: 12/07/14 Exam# [id number] Ordering Dr: Suzanne Root STUDY: X-RAY CHEST REASON FOR EXAM: Male, 69 years old. Smoker. TECHNIQUE: Frontal and lateral views of the chest. COMPARISON: November 04, 2013 FINDINGS: There is stable hyperexpansion with granulomatous calcification. There is no demonstrated pleural abnormality. Normal size heart. Normal mediastinum and shayan. Normal visualized pulmonary arteries. Normal visualized aortic arch and descending thoracic aorta. Normal visualized thoracic spine. Normal visualized ribs, clavicles, and shoulders. There is no demonstrated abnormality of the visualized soft tissue structures of the upper abdomen. IMPRESSION: Stable findings compatible with chronic obstructive pulmonary disease. No acute pathology. Electronically Signed: Chris Lo MD at 17:48 EDT , Service support [phone], RAD/Chest PA and Lateral IMPRESSION: Stable findings compatible with chronic obstructive pulmonary disease. No acute pathology. Electronically Signed: Chris Lo MD at 17:48 EDT , Service support [phone], CC: Suzanne Root; Catherine Garcia DO Forestry Pilot: Signed Suzanne Root Work Phone: Start: 11-04-2013 End: 11-04-2013 Chest PA and Lateral Comments: See Note; NOTES: [facility] Imaging Services [address] [place] [address] Radiology Report MR#: [id number] Acct: [id number] Name: RICKI BHARDWAJ Rep #: [id number] : 1945 M 68 From: Angel Davis DO PCP: Catherine Garcia DO Status: REG CLI Study: Chest PA and Lateral Date of Exam: 11/04/13 Exam# [id number] Ordering Dr: Jose, Catherine DO STUDY: X-RAY CHEST REASON FOR EXAM: Male, 68 years old. Cough for one week. Smoking history. TECHNIQUE: PA and lateral views of the chest. COMPARISON: 2012. FINDINGS: The lungs are hyperexpanded but without acute infiltrate or mass. There is no demonstrated pleural abnormality. Normal size heart. Normal mediastinum and shayan. Normal visualized pulmonary arteries. There is atherosclerotic calcification of the aortic arch with tortuosity. Normal visualized thoracic spine. There is degenerative osteoarthritis of the bilateral shoulders. There is no demonstrated abnormality of the visualized soft tissue structures of the upper abdomen. IMPRESSION: No evidence of acute cardiopulmonary disease or major change from 2012. Electronically Signed: Angel Davis D.O. at 11:25 EDT , Service support [phone], CC: Catherine Garcia DO Forestry Pilot: Signed Catherine Garcia Work Phone: Angioplasty Chanelle Bailey Work Phone: Comment on above: x2 [facility] 03-15-15 [facility] Angioplasty Florentino Amos Comment on above: x2 [facility] 03-15-15 [facility] Angioplasty Denisse [employer] Comment on above: x2 [facility] 03-15-15 [facility] Angioplasty Florentino Amos Comment on above: x2 [facility] 03-15-15 [place] [facility] Angioplasty Denisse Alvarado Comment on above: x2 [facility] 03-15-15 [facility] Angioplasty Fidelina Waters Comment on above: x2 [facility] 03-15-15 [place] [facility] Angioplasty Florentino Amos Comment on above: x2 [facility] 03-15-15 [facility] Angioplasty Keke Mike Comment on above: x2 [facility] 03-15-15 [facility] Angioplasty Jessi Sheriff Comment on above: x2 [facility] 03-15-15 [facility] Appendectomy Chanelle Bailey Work Phone: Appendectomy Florentino Amos Appendectomy Denisse Messenger Appendectomy Florentino Amos Appendectomy Denisse Messenger Appendectomy Fidelina L Long Appendectomy Florentino Amos Appendectomy Keke Gravius Appendectomy DR SAMMY RAM MD Extraction of cataract Chanelle Quesada Ceferinoesha Work Phone: Comment on above: Dr. Paul Extraction of cataract Toby n Amos Comment on above: Dr. Paul Extraction of cataract Denisse Messenger Comment on above: Dr. Paul Extraction of cataract Toby n Amos Comment on above: Dr. Paul Extraction of cataract Denisse Messenger Comment on above: Dr. Paul Extraction of cataract Fidelina L Long Comment on above: Dr. Paul Extraction of cataract Toby n Amos Comment on above: Dr. Paul Extraction of cataract Jasmi n Gravius Comment on above: Dr. Paul Extraction of cataract Ashle y Cross Comment on above: Dr. Paul Extraction of cataract Ashle y Cross SHOE SALESMAN Extraction of cataract Tarah Zheng SHOE SALESMAN Extraction of cataract Jasmi n Gravius [employer] SUPERVISOR Extraction of cataract Ivanna n Ciro MA Extraction of cataract Kayel a Carley [employer]ARD SUPERVISOR Extraction of cataract Kayel a Carley [employer] YARD SUPERVISOR Facial surgery Chanellejohanna De La Vega i Work Phone: Facial surgery Florentino Amos [facility] Florentino Amos Facial [facility] Fidelina L Long Facial surgery Florentino Amos Facial surgery Keke Graviu s Facial surgery Jessi Cross History of appendectomy Ashl ey Cross History of appendectomy Ashl ey Cross SHOE SALESMAN History of appendectomy Trac y Zheng SHOE SALESMAN History of appendectomy Jasm in Gravius [employer] Y[employer] SUPERVISOR History of appendectomy Troy en [place] History of appendectomy Lacie la Carley [employer] YARD SUPERVISOR History of appendectomy Lacie la Carley [employer] YARD SUPERVISOR Placement of stent i n cardiac conduit DR SAMMY CASTRO MD Comment on above: X1 Vasectomy Chanelle M Lynn Work Phone: Vasectomy Florentino Amos Vasectomy Denisse Messenger Vasectomy Florentino Amos Vasectomy Denisse Messenger Vasectomy Fidelina L Long Vasectomy Florentino Amos Vasectomy Keke Gravius Vasectomy planned Jessi [employer] Vasectomy planned Jessi [employer] SHOE SALESMAN Vasectomy planned Tarah Coff man SHOE SALESMAN Vasectomy planned Keke Gra vius [employer] YARD SUPERVISOR Vasectomy planned Barbara Gwi nn MA Vasectomy planned Kayela Rad benjamin [employer] YARD SUPERVISOR Vasectomy planned Kayela Rad benjamin [employer] SUPERVISOR Jessi Sheriff [facility] N Tarah [place] PN Keke Mike [employer] YARD SUPERVISOR Barbara Tanner MA Kayela Carley [facility] Kayela Carley [facility] Plan of Treatment Date Care Activity Detail Author Start: 11-15-2022 Procedure Education [facility]; [facility] Work Phone: Start: 11-15-2022 Provider Instructions for Treatment [facility]; [facility] Work Phone: Start: 07-30-2022 Procedure Education [facility]; [facility] Work Phone: Start: 05-15-2022 Procedure Education [facility]; [facility] Work Phone: Start: 05-15-2022 Provider Instructions for Treatment [facility]; [facility] Work Phone: Start: 05-15-2022 Iaadiadoo influenza [facility]; [facility] Work Phone: Start: 12-28-2021 Procedure Education [facility]; [facility] Work Phone: Start: 12-28-2021 Provider Instructions for Treatment [facility]; [facility] Work Phone: Start: 11-15-2021 Procedure Education [facility]; [facility] Work Phone: Start: 07-11-2021 Procedure Education [facility]; [facility] Work Phone: Start: 07-11-2021 Provider Instructions for Treatment [facility]; [facility] Work Phone: Start: 07-03-2021 Procedure Education [facility]; [facility] Work Phone: Start: 07-03-2021 Provider Instructions for Treatment [facility]; [facility] Work Phone: Start: 12-15-2020 Procedure Education [facility]; [facility] Work Phone: Start: 12-15-2020 Provider Instructions for Treatment [facility]; [facility] Work Phone: Start: 08-03-2020 Procedure Education [facility]; [facility] Work Phone: Start: 08-03-2020 Provider Instructions for Treatment [facility]; [facility] Work Phone: Start: 06-24-2020 Procedure Education [facility] Work Phone: Start: 06-24-2020 Provider Instructions for Treatment [facility] Work Phone: Start: 06-24-2020 25 hydroxy includes fractions if performed CALCIFEDIOL (90295) [facility] Work Phone: Start: 06-24-2020 Cobalamin (Vitamin B12) [Mass/Vol] VITAMIN B-12 (CYANOCOBALAMIN) (50456) [facility] Work Phone: Start: 06-24-2020 TSH Qn TSH (10528) [facility] Work Phone: Start: 06-24-2020 Urnls dip stick/tablet reagent auto microscopy URINALYSIS, W/ MICRO (88685) [facility] Work Phone: Start: 06-24-2020 Urine albumin quantitative MICROALBUMIN: CREATININE RATIO (20585) AND (99158) [facility] Work Phone: Start: 06-24-2020 Comprehensive metabolic panel METABOLIC PANEL, COMPREHENSIVE (68116) [facility] Work Phone: Start: 06-24-2020 Blood count complete auto&auto difrntl wbc CBC W/AUTO DIFF WBC (34272) [facility] Work Phone: Start: 06-24-2020 Lipid panel LIPID PANEL (81487) [facility] Work Phone: Start: 07-14-2019 Procedure Education [facility] Work Phone: Start: 07-14-2019 Provider Instructions for Treatment [facility] Work Phone: Start: 07-02-2019 Procedure Education [facility] Work Phone: Start: 07-02-2019 Provider Instructions for Treatment [facility] Work Phone: Start: 04-30-2019 Procedure Education [facility] Work Phone: Start: 04-30-2019 Provider Instructions for Treatment [facility] Work Phone: Start: 04-30-2019 25 hydroxy includes fractions if performed CALCIFIDIOL (83709) VIT D 25 [facility] Work Phone: Start: 04-30-2019 Cobalamin (Vitamin B12) [Mass/Vol] VITAMIN B-12 (CYANOCOBALAMIN) (70906) [facility] Work Phone: Start: 04-30-2019 TSH Qn TSH (18192) [facility] Work Phone: Start: 04-30-2019 Sedimentation rate rbc non-automated SED RATE ERYTHROCYTE (01241) [facility] Work Phone: Start: 04-30-2019 Comprehensive metabolic panel METABOLIC PANEL, COMPREHENSIVE (54713) [facility] Work Phone: Start: 04-30-2019 CRP [Mass/Vol] C-REACTIVE PROTEIN (82393) [facility] Work Phone: Start: 04-30-2019 Blood count complete automated CBC (AUTO) (12311) [facility] Work Phone: Start: 12-19-2018 Procedure Education [facility] Work Phone: Start: 12-04-2018 Procedure Education [facility] Work Phone: Start: 12-04-2018 Provider Instructions for Treatment [facility] Work Phone: Start: 12-04-2018 Lipoprotein blood issa numbers & subclasses [facility] Work Phone: Start: 12-04-2018 Protein mass conc NMR Profile (02488) [facility] Work Phone: Start: 12-04-2018 Cobalamin (Vitamin B12) mass conc VITAMIN B-12 (CYANOCOBALAMIN) (57657) [facility] Work Phone: Start: 12-04-2018 Cyanocobalamin vitamin b-12 [facility]; [facility] Work Phone: Start: 12-04-2018 Assay of thyroid stimulating hormone tsh [facility]; [facility] Work Phone: Start: 12-04-2018 Thyrotropin Qn TSH (50366) [facility] Work Phone: Start: 12-04-2018 Urnls dip stick/tablet reagent auto microscopy [facility] Work Phone: Start: 12-04-2018 Urine albumin quantitative [facility] Work Phone: Start: 12-04-2018 Comprehensive metabolic panel [facility] Work Phone: Start: 12-04-2018 Blood count complete auto&auto difrntl wbc [facility] Work Phone: Start: 08-28-2018 Procedure Education [facility] Work Phone: Start: 08-28-2018 Provider Instructions for Treatment [facility] Work Phone: Start: 06-12-2018 Procedure Education [facility] Work Phone: Start: 06-12-2018 Provider Instructions for Treatment [facility] Work Phone: Start: 04-25-2018 Hepatic function panel [facility] Work Phone: Start: 04-25-2018 Lipoprotein blood issa numbers & subclasses [facility]; [facility] Work Phone: Start: 04-25-2018 Protein mass conc LIPOPROTEIN, BLD, BY NMR (96675) [facility] Work Phone: Start: 04-25-2018 Provider Instructions for Treatment [facility] Work Phone: Start: 04-17-2018 Provider Instructions for Treatment [facility] Work Phone: Start: 12-19-2017 Procedure Education [facility] Work Phone: Start: 12-19-2017 Provider Instructions for Treatment [facility] Work Phone: Start: 12-19-2017 Cobalamin (Vitamin B12) mass conc VITAMIN B-12 (CYANOCOBALAMIN) (68523) [facility] Work Phone: Start: 12-19-2017 Cyanocobalamin vitamin b-12 [facility]; [facility] Work Phone: Start: 11-27-2017 Provider Instructions for Treatment [facility] Work Phone: Start: 11-14-2017 Patient Education [facility] Work Phone: Start: 11-14-2017 Procedure Education [facility] Work Phone: Start: 11-14-2017 Provider Instructions for Treatment [facility] Work Phone: Start: 11-12-2017 End: 05-15-2017 *Hepatic Function Panel *Hepatic Function Panel [facility] Work Phone: Start: 11-12-2017 End: 05-15-2017 Lipid 1996 panel *Lipid Profile CC PCP [facility] Work Phone: Start: 11-12-2017 End: 10-14-2017 *Hepatic Function Panel *Hepatic Function Panel [facility] Work Phone: Start: 11-12-2017 End: 10-14-2017 Lipid panel [AGGREGATE] *Lipid Profile CC PCP [facility] Work Phone: Start: 11-05-2017 Procedure Education [facility] Work Phone: Start: 11-05-2017 Provider Instructions for Treatment [facility] Work Phone: Start: 10-23-2017 End: 10-23-2017 Appointment Appointment [facility] Work Phone: Start: 08-27-2017 Patient Education [facility] Work Phone: Start: 08-27-2017 Provider Instructions for Treatment [facility] Work Phone: Start: 08-27-2017 Iaadiadoo streptococcus group a [facility]; [facility] Work Phone: Start: 08-27-2017 S. pyogenes Ag IA Ql (Unsp spec) Rapid Strep Test, Office (77652) [facility] Work Phone: Start: 08-27-2017 [place]adiadoo influenza [facility] Work Phone: Start: 04-22-2017 End: 04-22-2017 Appointment Appointment [facility] Work Phone: Start: 04-22-2017 End: 05-14-2017 *Hepatic Function Panel *Hepatic Function Panel [facility] Work Phone: Start: 04-22-2017 End: 04-22-2017 Follow Up Appt 6 months Follow Up Appt 6 months [facility] Work Phone: Start: 04-22-2017 End: 05-14-2017 Lipid 1996 panel *Lipid Profile CC PCP [facility] Work Phone: Start: 04-22-2017 End: 04-22-2017 MMM MMM [facility] Work Phone: Start: 04-22-2017 End: 05-14-2017 *Hepatic Function Panel *Hepatic Function Panel [facility] Work Phone: Start: 04-22-2017 End: 04-22-2017 Follow Up Appt 6 months Follow Up Appt 6 months [facility] Work Phone: Start: 04-22-2017 End: 05-14-2017 Lipid panel [AGGREGATE] *Lipid Profile CC PCP [facility] Work Phone: Start: 04-22-2017 End: 04-22-2017 MMM MMM [facility] Work Phone: Start: 10-17-2016 End: 10-17-2016 Ecg routine ecg w/least 12 lds w/i&r EKG (In office) [facility] Work Phone: Start: 10-17-2016 End: 04-02-2017 Follow Up Appt Other Follow Up Appt Other [facility] Work Phone: Start: 10-17-2016 End: 10-17-2016 Electrocardiogram, complete EKG (In office) [facility] Work Phone: Start: 10-17-2016 End: 04-02-2017 Follow Up Appt Other Follow Up Appt Other [facility] Work Phone: Start: 10-11-2016 Procedure Education [facility] Work Phone: Start: 06-01-2016 Provider Instructions for Treatment [facility] Work Phone: Start: 04-20-2016 End: 10-05-2016 Follow Up Appt 6 months Follow Up Appt 6 months [facility] Work Phone: Start: 04-20-2016 End: 04-02-2017 Follow Up Appt Other Follow Up Appt Other [facility] Work Phone: Start: 04-20-2016 End: 10-05-2016 MMM MMM [facility] Work Phone: Start: 04-20-2016 End: 10-05-2016 Follow Up Appt 6 months Follow Up Appt 6 months [facility] Work Phone: Start: 04-20-2016 End: 04-02-2017 Follow Up Appt Other Follow Up Appt Other [facility] Work Phone: Start: 04-20-2016 End: 10-05-2016 MMM MMM [facility] Work Phone: Start: 04-05-2016 Patient Education [facility] Work Phone: Start: 04-05-2016 Provider Instructions for Treatment [facility] Work Phone: Start: 12-29-2015 Patient Education [facility] Work Phone: Start: 12-29-2015 Procedure Education [facility] Work Phone: Start: 12-29-2015 Provider Instructions for Treatment [facility] Work Phone: Start: 10-06-2015 End: 10-06-2015 Follow Up Appt 6 months Follow Up Appt 6 months [facility] Work Phone: Start: 10-06-2015 End: 10-05-2016 Follow Up Appt Other Follow Up Appt Other [facility] Work Phone: Start: 10-06-2015 End: 10-06-2015 PFM PFM [facility] Work Phone: Start: 10-06-2015 End: 10-06-2015 Follow Up Appt 6 months Follow Up Appt 6 months [facility] Work Phone: Start: 10-06-2015 End: 10-05-2016 Follow Up Appt Other Follow Up Appt Other [facility] Work Phone: Start: 10-06-2015 End: 10-06-2015 PFM PFM [facility] Work Phone: Start: 09-26-2015 Procedure Education [facility] Work Phone: Start: 09-26-2015 Provider Instructions for Treatment [facility] Work Phone: Start: 09-26-2015 Urnls dip stick/tablet reagent auto microscopy [facility] Work Phone: Start: 09-26-2015 Blood count complete auto&auto difrntl wbc [facility] Work Phone: Start: 09-26-2015 Comprehensive metabolic panel [facility] Work Phone: Start: 09-26-2015 Hemoglobin A1c/Hemoglobin.total mass fraction (Bld) HgA1C , Office (61527) [facility] Work Phone: Start: 09-26-2015 Hemoglobin glycosylated a1c [facility] Work Phone: Start: 09-26-2015 Lipid panel [facility] Work Phone: Start: 09-26-2015 Urine albumin quantitative [facility] Work Phone: Start: 07-07-2015 End: 07-07-2015 Echocardiography Echocardiogram (complete) [facility] Work Phone: Start: 07-07-2015 End: 09-29-2015 Follow Up Appt 3 months Follow Up Appt 3 months [facility] Work Phone: Start: 07-07-2015 End: 09-29-2015 MMM MMM [facility] Work Phone: Start: 07-07-2015 End: 07-07-2015 Echocardiography Echocardiogram (complete) [facility] Work Phone: Start: 07-07-2015 End: 09-29-2015 Follow Up Appt 3 months Follow Up Appt 3 months [facility] Work Phone: Start: 07-07-2015 End: 09-29-2015 MMM MMM [facility] Work Phone: Start: 06-23-2015 Patient Education [facility] Work Phone: Start: 06-23-2015 Procedure Education [facility] Work Phone: Start: 06-23-2015 Provider Instructions for Treatment [facility] Work Phone: Start: 03-31-2015 End: 09-29-2015 Cardiac Rehab Cardiac Rehab [facility] Work Phone: Start: 03-31-2015 End: 03-31-2015 Cardiovascular stress test using treadmill Treadmill stress test (no imaging) [facility] Work Phone: Start: 03-31-2015 End: 03-31-2015 Ecg routine ecg w/least 12 lds w/i&r EKG (In office) [facility] Work Phone: Start: 03-31-2015 End: 03-31-2015 Follow Up Appt 3 months Follow Up Appt 3 months [facility] Work Phone: Start: 03-31-2015 End: 03-31-2015 PFM PFM [facility] Work Phone: Start: 03-31-2015 End: 09-29-2015 Cardiac Rehab Cardiac Rehab [facility] Work Phone: Start: 03-31-2015 End: 03-31-2015 Cardiovascular stress test using treadmill Treadmill stress test (no imaging) [facility] Work Phone: Start: 03-31-2015 End: 03-31-2015 Electrocardiogram, complete EKG (In office) [facility] Work Phone: Start: 03-31-2015 End: 03-31-2015 Follow Up Appt 3 months Follow Up Appt 3 months [facility] Work Phone: Start: 03-31-2015 End: 03-31-2015 PFM PFM [facility] Work Phone: Start: 12-07-2014 Provider Instructions for Treatment [facility] Work Phone: Start: 05-25-2014 Provider Instructions for Treatment [facility] Work Phone: Start: 11-04-2013 Provider Instructions for Treatment [facility] Work Phone: Start: 06-05-2013 Provider Instructions for Treatment [facility] Work Phone: Start: 11-03-2012 Provider Instructions for Treatment [facility] Work Phone: Start: 10-21-2012 Provider Instructions for Treatment [facility] Work Phone: Start: 2012 Patient Education [facility] Work Phone: Start: 2012 Provider Instructions for Treatment [facility] Work Phone: Start: 04-24-2012 Patient Education [facility] Work Phone: Start: 04-24-2012 Provider Instructions for Treatment [facility] Work Phone: Start: 10-03-2011 Provider Instructions for Treatment [facility] Work Phone: Start: 10-03-2011 Assay of thyroid stimulating hormone tsh [facility] Work Phone: Start: 10-03-2011 Thyrotropin Qn TSH (90969) [facility] Work Phone: Start: 10-03-2011 Urnls dip stick/tablet reagent auto microscopy [facility] Work Phone: Start: 10-03-2011 Urine albumin quantitative [facility] Work Phone: Start: 10-03-2011 Comprehensive metabolic panel [facility] Work Phone: Start: 10-03-2011 Lipid panel [facility] Work Phone: Start: 10-03-2011 Blood count manual cell count each [facility] Work Phone: Start: 08-21-2010 Provider Instructions for Treatment [facility] Work Phone: Start: 05-04-2010 Provider Instructions for Treatment [facility] Work Phone: Start: 05-04-2010 Assay of free thyroxine [facility] Work Phone: Start: 05-04-2010 T4 free mass conc T4, FREE (THYROXINE) (72484) [facility] Work Phone: Start: 05-04-2010 Assay of triiodothyronine t3 free [facility]; [facility] Work Phone: Start: 05-04-2010 T3 free mass conc T3, FREE (TRIDOTHYRONINE) (95021) [facility] Work Phone: Start: 05-04-2010 Assay of thyroid stimulating hormone tsh [facility] Work Phone: Start: 05-04-2010 Thyrotropin Qn TSH (15737) [facility] Work Phone: Start: 05-04-2010 Urine albumin quantitative [facility] Work Phone: Start: 05-04-2010 Urnls dip stick/tablet reagent auto microscopy [facility] Work Phone: Start: 05-04-2010 Comprehensive metabolic panel [facility] Work Phone: Start: 05-04-2010 Lipid panel [facility] Work Phone: Start: 05-04-2010 Blood count manual cell count each [facility] Work Phone: Start: 10-17-2009 Provider Instructions for Treatment [facility] Work Phone: Start: 08-04-2009 Provider Instructions for Treatment [facility] Work Phone: Start: 08-03-2009 Culture bacterial any source anaerobic iso&id [facility] Work Phone: Start: 08-03-2009 Cul bact xcpt urine blood/stool aerobic isol [facility] Work Phone: Start: 05-24-2009 Provider Instructions for Treatment [facility] Work Phone: Start: 02-08-2009 Provider Instructions for Treatment [facility] Work Phone: Start: 01-12-2009 Provider Instructions for Treatment [facility] Work Phone: Start: 07-13-2008 Provider Instructions for Treatment [facility] Work Phone: Start: 10-21-2006 Provider Instructions for Treatment [facility] Work Phone: [facility] Work [facility]: [facility] Work Phone: [facility] Work Phone: [facility] Work Phone: [facility] Work Phone[facility] Work Phone: [facility] Work Phone: [facility] Work [facility]: [facility] Work Phone: [facility] Work Phone: [facility] Work Phone: [facility] Work Phone: [facility] Work Phone: [facility] Work Phone: [facility] Work Phone: [facility] Work Phone: [facility] Work Phone: [facility] Work Phone: [facility] Work Phone: [facility] Work Phone: [facility] Work Phone: [facility] Work Phone: [facility] Work Phone: [facility] Work Phone: [facility] Work Phone: [facility] Work Phone: [facility] Work Phone: [facility] Work Phone: [facility] Work Phone: [facility] Work Phone: [facility] Work Phone: [facility] Work Phone: [facility] Work Phone: [facility] Work Phone: [facility] Work Phone: [facility] Work Phone: [facility] Work Phone: [facility] Work Phone: [facility] Work Phone: [facility] Phone: [facility] Work Phone: [facility] Work Phone: [facility] Work Phone: [facility] Work Phone: [facility] Work Phone: [facility] Work Phone: [facility] Work Phone: [facility] Work Phone[facility] Work Phone[facility] Work Phone: [facility] Work Phone: [facility] Work Phone: [facility] Work Phone: [facility]; [facility] Work Phone: Immunizations Immunization Date Immunization Notes Care Provider Fa [facility] 08-21-2010 varicella zoster immune globulin; Translations: [ZOSTAVAX, 57822VWR/0.65ML (Subcutaneous Solution Reconstituted)] Catherine Jose [facility] Work Phone: Payers Date Payer Category Payer Self-pay [id number] 2021 Medicare [id number] 2021 Unknown [id number] 2018 Unknown [id number] 2011 Medicare [id number] 2007 Unknown [id number] 2004 Private Health Insurance [id number] 1945 Unknown [id number] 1945 Unknown [id number] [id number] Unknown Unknown [id number] [id number] Unknown [id number] [id number] [id number] Unknown [id number] [id number] [id number] Social History Date Type Detail Facility Caffeine Use Former smoker [facility] Work Phone: Comment on above: 3 QD 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 [facility] Work Phone: Comment on above: Quit smoking March 14 following heart attack Former smoker. [facility]; [facility] Work Phone: Start: 01-09-2022 End: 06-06-2023 Tobacco smoking status [facility] Unknown if ever smoked [facility] Start: 05-13-2020 Cigarettes [facility] Start: 1945 Sex Assigned At Male W [facility] Start: 05-21-2022 Tobacco smoking status Heavy tobacco smoker (finding) [facility] Start: 06-06-2023 Tobacco smoking status [facility] Smokes tobacco daily (finding) [facility] Sex Male [facility] Medical Equipment Procedure Code Equipment Code Equipment Origin al Text Equipment Identifier Dates STENT,URETERAL PIGTAIL [id number] FDA Start: 05-20-2020 STENT,URETERAL PIGTAIL [id number] FDA Start: 05-20-2020 STENT,URETERAL PIGTAIL [id number] FDA Start: 05-20-2020 Functional Status Date Assessment Result Facility 11-18-2023 Functional Status Awake [facility] 11-18-2023 Functional Status Maintained [facility] 08-28-2018 LP-IR Score 72 [facility] Work Phone: Comment on above: INSULIN RESISTANCE Brigitte BECERRA <--Insulin Sensitive Insulin Resistant--> Percentile in Reference PopulationInsulin Resistance ScoreLP-IR Score Low 25th 50th 75th High <27 27 45 63 >63LP-IR Score is inaccurate if patient is non-fasting. .The LP-IR score is a laboratory developed index that has beenassociated with insulin resistance and diabetes risk and should beused as one component of a physician's clinical assessment. TheLP-IR score listed above has not been cleared by the [place] Food andDrug Administration. PATIENT WAS FASTINGP ERFORMED BY: [place] [address] [facility] [id number] BY: DOROTHY iContact [id number] [facility] [id number] 04-17-2018 LP-IR Score 87 [facility] Work Phone: Comment on above: INSULIN RESISTANCE M ARKER <--Insulin Sensitive Insulin Resistant--> Percentile in Reference PopulationInsulin Resistance ScoreLP-IR Score Low 25th 50th 75th High <27 27 45 63 >63LP-IR Score is inaccurate if patient is non-fasting. .The LP-IR score is a laboratory developed index that has beenassociated with insulin resistance and diabetes risk and should beused as one component of a physician's clinical assessment. TheLP-IR score listed above has not been cleared by the [place] Food andDrug Administration. PATIENT WAS FASTINGP ERFORMED BY: [employer] [facility] [id number] BY: [facility]6370 [facility] [id number] 11-27-2017 LP-IR Score 77 [facility] Work Phone: Comment on above: INSULIN RESISTANCE M ARKER <--Insulin Sensitive Insulin Resistant--> Percentile in Reference PopulationInsulin Resistance ScoreLP-IR Score Low 25th 50th 75th High <27 27 45 63 >63LP-IR Score is inaccurate if patient is non-fasting. .The LP-IR score is a laboratory developed index that has beenassociated with insulin resistance and diabetes risk and should beused as one component of a physician's clinical assessment. TheLP-IR score listed above has not been cleared by the [place] Food andDrug Administration. PATIENT WAS FASTINGP ERFORMED BY: [employer] ([place])ton1447 [facility] [id number] BY: [employer] Quybyd1730 [facility] [id number] Clinical Notes 02-23-2015 to 06-08-2025 Note Date & Type Note Facility 06-08-[address] [facility] 11-18-2023 Hospital Discharge instructions Patient Education 11/18/2023 09:34:10 Colon Polyps Colon Polyps Polyps are tissue growths inside the body. Polyps can grow in many places, including the large intestine (colon). A polyp may be a round bump or a mushroom-shaped growth. You could have one polyp or several. Most colon polyps are noncancerous (benign). However, some colon polyps can become cancerous over time. Finding and removing the polyps early can help prevent this. What are the causes? The exact cause of colon polyps is not known. What increases the risk? You are more likely to develop this condition if you: Have a family history of colon cancer or colon polyps. Are older than 50 or older than 45 if you are . Have inflammatory bowel disease, such as ulcerative colitis or Crohn's disease. Have certain hereditary conditions, such as: ?Familial adenomatous polyposis. ?Colby syndrome. ?Turcot syndrome. ?Peutz Jeghers syndrome. Are overweight. Smoke cigarettes. Do not get enough exercise. Drink too much alcohol. Eat a diet that is high in fat and red meat and low in fiber. Had childhood cancer that was treated with abdominal radiation. What are the signs or symptoms? Most polyps do not cause symptoms. If you have symptoms, they may include: Blood coming from your rectum when having a bowel movement. Blood in your stool. The stool may look dark red or black. Abdominal pain. A change in bowel habits, such as constipation or diarrhea. How is this diagnosed? This condition is diagnosed with a colonoscopy. This is a procedure in which a lighted, flexible scope is inserted into the anus and then passed into the colon to examine the area. Polyps are sometimes found when a colonoscopy is done as part of routine cancer screening tests. How is this treated? Treatment for this condition involves removing any polyps that are found. Most polyps can be removed during a colonoscopy. Those polyps will then be tested for cancer. Additional treatment may be needed depending on the results of testing. Follow these instructions at home: Lifestyle Maintain a healthy weight, or lose weight if recommended by your health care provider. Exercise every day or as told by your health care provider. Do not use any products that contain nicotine or tobacco, such as cigarettes and e-cigarettes. If you need help quitting, ask your health care provider. If you drink alcohol, limit how much you have: ?0 1 drink a day for women. ? 0 2 drinks a day for men. Be aware of how much alcohol is in your drink. In the [place] one drink equals one 12 oz bottle of beer (355 mL), one 5 oz glass of wine (148 mL), or one 1 oz shot of hard liquor (44 mL). Eating and drinking Eat foods that are high in fiber, such as fruits, vegetables, and whole grains. Eat foods that are high in calcium and vitamin D, such as milk, cheese, yogurt, eggs, liver, fish, and broccoli. Limit foods that are high in fat, such as fried foods and desserts. Limit the amount of red meat and processed meat you eat, such as hot dogs, sausage, umaña, and lunch meats. General instructions Keep all follow-up visits as told by your health care provider. This is important. ?This includes having regularly scheduled colonoscopies. ?Talk to your health care provider about when you need a colonoscopy. Contact a health care provider if: You have new or worsening bleeding during a bowel movement. You have new or increased blood in your stool. You have a change in bowel habits. You lose weight for no known reason. Summary Polyps are tissue growths inside the body. Polyps can grow in many places, including the colon. Most colon polyps are noncancerous (benign), but some can become cancerous over time. This condition is diagnosed with a colonoscopy. Treatment for this condition involves removing any polyps that are found. Most polyps can be removed during a colonoscopy. This information is not intended to replace advice given to you by your health care provider. Make sure you discuss any questions you have with your health care provider. Document Released: 2005 Document Revised: 11/27/2018 Document Reviewed: 11/27/2018 [facility] Patient Education 2020 [employer]. 11/18/2023 09:34:04 Colonoscopy, Adult, Care After Colonoscopy, Adult, Care After This sheet gives you information about how to care for yourself after your procedure. Your health care provider may also give you more specific instructions. If you have problems or questions, contact your health care provider. What can I expect after the procedure? After the procedure, it is common to have: A small amount of blood in your stool for 24 hours after the procedure. Some gas. Mild abdominal cramping or bloating. Follow these instructions at home: General instructions For the first 24 hours after the procedure: ?Do not drive or use machinery. ?Do not sign important documents. ?Do not drink alcohol. ?Do your regular daily activities at a slower pace than normal. ?Eat soft, bgyt-jf-iqlnbg foods. Take fwoy-fso-ypeipgk or prescription medicines only as told by your health care provider. Relieving cramping and bloating Try walking around when you have cramps or feel bloated. Apply heat to your abdomen as told by your health care provider. Use a heat source that your health care provider recommends, such as a moist heat pack or a heating pad. ?Place a towel between your skin and the heat source. ?Leave the heat on for 20 30 minutes. ?Remove the heat if your skin turns bright red. This is especially important if you are unable to feel pain, heat, or cold. You may have a greater risk of getting burned. Eating and drinking Drink enough fluid to keep your urine pale yellow. Resume your normal diet as instructed by your health care provider. Avoid heavy or fried foods that are hard to digest. Avoid drinking alcohol for as long as instructed by your health care provider. Contact a health care provider if: You have blood in your stool 2 3 days after the procedure. Get help right away if: You have more than a small spotting of blood in your stool. You pass large blood clots in your stool. Your abdomen is swollen. You have nausea or vomiting. You have a fever. You have increasing abdominal pain that is not relieved with medicine. Summary After the procedure, it is common to have a small amount of blood in your stool. You may also have mild abdominal cramping and bloating. For the first 24 hours after the procedure, do not drive or use machinery, sign important documents, or drink alcohol. Contact your health care provider if you have a lot of blood in your stool, nausea or vomiting, a fever, or increased abdominal pain. This information is not intended to replace advice given to you by your health care provider. Make sure you discuss any questions you have with your health care provider. Document Released: 03/26/2005 Document Revised: 06/04/2018 Document Reviewed: 10/23/2016 [facility] Patient Education 2020 [employer]. 11/18/2023 09:33:59 Monitored Anesthesia Care, Care After Monitored Anesthesia Care, Care After These instructions provide you with information about caring for yourself after your procedure. Your health care provider may also give you more specific instructions. Your treatment has been planned according to current medical practices, but problems sometimes occur. Call your health care provider if you have any problems or questions after your procedure. What can I expect after the procedure? After your procedure, you may: Feel sleepy for several hours. Feel clumsy and have poor balance for several hours. Feel forgetful about what happened after the procedure. Have poor judgment for several hours. Feel nauseous or vomit. Have a sore throat if you had a breathing tube during the procedure. Follow these instructions at home: For at least 24 hours after the procedure: Have a responsible adult stay with you. It is important to have someone help care for you until you are awake and alert. Rest as needed. Do not: ?Participate in activities in which you could fall or become injured. ?Drive. ?Use heavy machinery. ?Drink alcohol. ?Take sleeping pills or medicines that cause drowsiness. ?Make important decisions or sign legal documents. ?Take care of children on your own. Eating and drinking Follow the diet that is recommended by your health care provider. If you vomit, drink water, juice, or soup when you can drink without vomiting. Make sure you have little or no nausea before eating solid foods. General instructions Take vpwy-riu-gsrzewt and prescription medicines only as told by your health care provider. If you have sleep apnea, surgery and certain medicines can increase your risk for breathing problems. Follow instructions from your health care provider about wearing your sleep device: ?Anytime you are sleeping, including during daytime naps. ?While taking prescription pain medicines, sleeping medicines, or medicines that make you drowsy. If you smoke, do not smoke without supervision. Keep all follow-up visits as told by your health care provider. This is important. Contact a health care provider if: You keep feeling nauseous or you keep vomiting. You feel light-headed. You develop a rash. You have a fever. Get help right away if: You have trouble breathing. Summary For several hours after your procedure, you may feel sleepy and have poor judgment. Have a responsible adult stay with you for at least 24 hours or until you are awake and alert. This information is not intended to replace advice given to you by your health care provider. Make sure you discuss any questions you have with your health care provider. Document Released: 12/02/2016 Document Revised: 11/10/2018 Document Reviewed: 12/02/2016 [facility] Patient Education 2020 [employer]. Follow Up Care 11/06/2023 12:59:05 With:SAMMY CASTRO MD Address: [address] [facility] [place] [phone]- [phone] When: Unknown Comments:[facility] Summary of episode note Discharge Instructions Thank you for allowing [facility] to assist you with your healthcare needs. The following is important discharge information regarding your hospital visit. Your Care Team CATHERINE GARCIA DO Your Diagnosis Colonoscopy What to do next Follow Up Appointments Follow Up with SAMMY CASTRO MD When Why: Follow-up as needed Where: [facility] [place] [address]- [phone] Allergies NKA Medications Please ask your primary doctor or pharmacist before taking any other medication not listed, including over the counter drugs, herbal medications, vitamins and or supplements as they may interact with your home medications. What How Much When Instructions Last Dose Unchanged ascorbic acid (Vitamin C 500 mg oral tablet) 1 tab(s) by mouth Once a day Unchanged atorvastatin (atorvastatin 80 mg oral tablet) 1 tab(s) by mouth Every day Unchanged azithromycin (azithromycin 250 mg oral tablet) Take two (2) tablets day 1-then one (1) tablet by mouth Every day Duration: 5 Days Unchanged cholecalciferol (Vitamin D3) Once a day Unchanged escitalopram (escitalopram 20 mg oral tablet) 1 tab(s) by mouth Every day Unchanged isosorbide mononitrate (isosorbide mononitrate 30 mg oral tablet, extended release) 1 tab(s) by mouth Once a day (in the morning) Unchanged metoprolol (Metoprolol Tartrate 50 mg oral tablet) 1 tab(s) by mouth Two (2) times a day Unchanged vitamin E by mouth Once a day Please take this list to your next doctor s visit. Bring all medications you take, including over the counter medications, herbals and other supplements with you to your doctor s visit. Patients and families are reminded to discard old lists and to update any records with all medication providers or retail pharmacies. Education Materials Colon Polyps Polyps are tissue growths inside the body. Polyps can grow in many places, including the large intestine (colon). A polyp may be a round bump or a mushroom-shaped growth. You could have one polyp or several. Most colon polyps are noncancerous (benign). However, some colon polyps can become cancerous over time. Finding and removing the polyps early can help prevent this. What are the causes? The exact cause of colon polyps is not known. What increases the risk? You are more likely to develop this condition if you: Have a family history of colon cancer or colon polyps. Are older than 50 or older than 45 if you are . Have inflammatory bowel disease, such as ulcerative colitis or Crohn's disease. Have certain hereditary conditions, such as: ? Familial adenomatous polyposis. ? Colby syndrome. ? Turcot syndrome. ? Peutz Jeghers syndrome. Are overweight. Smoke cigarettes. Do not get enough exercise. Drink too much alcohol. Eat a diet that is high in fat and red meat and low in fiber. Had childhood cancer that was treated with abdominal radiation. What are the signs or symptoms? Most polyps do not cause symptoms. If you have symptoms, they may include: Blood coming from your rectum when having a bowel movement. Blood in your stool. The stool may look dark red or black. Abdominal pain. A change in bowel habits, such as constipation or diarrhea. How is this diagnosed? This condition is diagnosed with a colonoscopy. This is a procedure in which a lighted, flexible scope is inserted into the anus and then passed into the colon to examine the area. Polyps are sometimes found when a colonoscopy is done as part of routine cancer screening tests. How is this treated? Treatment for this condition involves removing any polyps that are found. Most polyps can be removed during a colonoscopy. Those polyps will then be tested for cancer. Additional treatment may be needed depending on the results of testing. Follow these instructions at home: Lifestyle Maintain a healthy weight, or lose weight if recommended by your health care provider. Exercise every day or as told by your health care provider. Do not use any products that contain nicotine or tobacco, such as cigarettes and e-cigarettes. If you need help quitting, ask your health care provider. If you drink alcohol, limit how much you have: ? 0 1 drink a day for women. ? 0 2 drinks a day for men. Be aware of how much alcohol is in your drink. In the [place] one drink equals one 12 oz bottle of beer (355 mL), one 5 oz glass of wine (148 mL), or one 1 oz shot of hard liquor (44 mL). Eating and drinking Eat foods that are high in fiber, such as fruits, vegetables, and whole grains. Eat foods that are high in calcium and vitamin D, such as milk, cheese, yogurt, eggs, liver, fish, and broccoli. Limit foods that are high in fat, such as fried foods and desserts. Limit the amount of red meat and processed meat you eat, such as hot dogs, sausage, umaña, and lunch meats. General instructions Keep all follow-up visits as told by your health care provider. This is important. ? This includes having regularly scheduled colonoscopies. ? Talk to your health care provider about when you need a colonoscopy. Contact a health care provider if: You have new or worsening bleeding during a bowel movement. You have new or increased blood in your stool. You have a change in bowel habits. You lose weight for no known reason. Summary Polyps are tissue growths inside the body. Polyps can grow in many places, including the colon. Most colon polyps are noncancerous (benign), but some can become cancerous over time. This condition is diagnosed with a colonoscopy. Treatment for this condition involves removing any polyps that are found. Most polyps can be removed during a colonoscopy. This information is not intended to replace advice given to you by your health care provider. Make sure you discuss any questions you have with your health care provider. Document Released: 2005 Document Revised: 11/27/2018 Document Reviewed: 11/27/2018 [employer] Patient Education 2020 [employer] Colonoscopy, Adult, Care After This sheet gives you information about how to care for yourself after your procedure. Your health care provider may also give you more specific instructions. If you have problems or questions, contact your health care provider. What can I expect after the procedure? After the procedure, it is common to have: A small amount of blood in your stool for 24 hours after the procedure. Some gas. Mild abdominal cramping or bloating. Follow these instructions at home: General instructions For the first 24 hours after the procedure: ? Do not drive or use machinery. ? Do not sign important documents. ? Do not drink alcohol. ? Do your regular daily activities at a slower pace than normal. ? Eat soft, ejjo-tx-dctrge foods. Take tgic-zth-qascvaq or prescription medicines only as told by your health care provider. Relieving cramping and bloating Try walking around when you have cramps or feel bloated. Apply heat to your abdomen as told by your health care provider. Use a heat source that your health care provider recommends, such as a moist heat pack or a heating pad. ? Place a towel between your skin and the heat source. ? Leave the heat on for 20 30 minutes. ? Remove the heat if your skin turns bright red. This is especially important if you are unable to feel pain, heat, or cold. You may have a greater risk of getting burned. Eating and drinking Drink enough fluid to keep your urine pale yellow. Resume your normal diet as instructed by your health care provider. Avoid heavy or fried foods that are hard to digest. Avoid drinking alcohol for as long as instructed by your health care provider. Contact a health care provider if: You have blood in your stool 2 3 days after the procedure. Get help right away if: You have more than a small spotting of blood in your stool. You pass large blood clots in your stool. Your abdomen is swollen. You have nausea or vomiting. You have a fever. You have increasing abdominal pain that is not relieved with medicine. Summary After the procedure, it is common to have a small amount of blood in your stool. You may also have mild abdominal cramping and bloating. For the first 24 hours after the procedure, do not drive or use machinery, sign important documents, or drink alcohol. Contact your health care provider if you have a lot of blood in your stool, nausea or vomiting, a fever, or increased abdominal pain. This information is not intended to replace advice given to you by your health care provider. Make sure you discuss any questions you have with your health care provider. Document Released: 03/26/2005 Document Revised: 06/04/2018 Document Reviewed: 10/23/2016 [employer] Patient Education 2020 [employer] Monitored Anesthesia Care, Care After These instructions provide you with information about caring for yourself after your procedure. Your health care provider may also give you more specific instructions. Your treatment has been planned according to current medical practices, but problems sometimes occur. Call your health care provider if you have any problems or questions after your procedure. What can I expect after the procedure? After your procedure, you may: Feel sleepy for several hours. Feel clumsy and have poor balance for several hours. Feel forgetful about what happened after the procedure. Have poor judgment for several hours. Feel nauseous or vomit. Have a sore throat if you had a breathing tube during the procedure. Follow these instructions at home: For at least 24 hours after the procedure: Have a responsible adult stay with you. It is important to have someone help care for you until you are awake and alert. Rest as needed. Do not: ? Participate in activities in which you could fall or become injured. ? Drive. ? Use heavy machinery. ? Drink alcohol. ? Take sleeping pills or medicines that cause drowsiness. ? Make important decisions or sign legal documents. ? Take care of children on your own. Eating and drinking Follow the diet that is recommended by your health care provider. If you vomit, drink water, juice, or soup when you can drink without vomiting. Make sure you have little or no nausea before eating solid foods. General instructions Take sirh-gmu-izzytwp and prescription medicines only as told by your health care provider. If you have sleep apnea, surgery and certain medicines can increase your risk for breathing problems. Follow instructions from your health care provider about wearing your sleep device: ? Anytime you are sleeping, including during daytime naps. ? While taking prescription pain medicines, sleeping medicines, or medicines that make you drowsy. If you smoke, do not smoke without supervision. Keep all follow-up visits as told by your health care provider. This is important. Contact a health care provider if: You keep feeling nauseous or you keep vomiting. You feel light-headed. You develop a rash. You have a fever. Get help right away if: You have trouble breathing. Summary For several hours after your procedure, you may feel sleepy and have poor judgment. Have a responsible adult stay with you for at least 24 hours or until you are awake and alert. This information is not intended to replace advice given to you by your health care provider. Make sure you discuss any questions you have with your health care provider. Document Released: 12/02/2016 Document Revised: 11/10/2018 Document Reviewed: 12/02/2016 [employer] Patient Education 2020 [employer] Additional Information VACCINATE! IT SAVES LIVES! Members of the community who have not yet received the COVID-19 vaccine and would like to receive it can visit one of [facility] vaccine clinics. There are many vaccine clinic locations within the [facility]. For locations and available times, please visit https://gettheshot.coronavirus.[place].gov/. It is important to note that some COVID mobile vaccine clinics are held outdoors and may be canceled in rainy or stormy conditions. To learn more about pediatric vaccinations (ages 5-11), we invite you to visit the [facility] webpage. https://www.[facility] [facility] [employer]ys.org/pag es/7062-Bfqgd-Twbmugtjihs-Frequent nx-Jefjs-Iwidhjucr.html To learn more about the COVID-19 vaccine, we invite you to visit the CDC website for a list of frequently asked questions.https://www.cdc.gov/evelina navirus/2019-ncov/vaccines/faq.htm l [facility] Patient Portal Access Instructions: Stay connected with your healthcare team and access your personal medical information anytime with the [facility] Patient Portal. Please follow the directions below to create your [facility] account: 1.Access the email account you provided upon registration to the hospital/physician office.2.Look for an invitation email from [facility].3.Open the email and access the invitation link: Accept Invitation to [facility].4.Fill in the required isabel to create your account. To access your account, visit [email or web address]. Click the blue button labeled Access Patient Portal and then log in with the username and password that you created in the steps above. You will be able to view your test results, lab results, a summary of your visits, upcoming appointments and more. There is also a convenient messaging option where you can send secure messages to your provider. In addition, you will have the ability to download any documents or summaries to your computer and/or send the information securely to a physician. Remember that your healthcare information is confidential, so carefully consider who you will allow to register on the [facility] Patient Portal for access to your information. You can also access the [facility] Patient Portal on the [facility] ivory. Simply click on Patient Portal and then log into your account. If you would like to receive a full copy of your medical records, please contact the [facility] Medical Records Department by calling [phone], Saturday through Saturday between 8 a.m. and 4:30 p.m. HOW TO SAFELY DISPOSE OF PRESCRIPTION MEDICATIONS Please use one of the following methods to safely dispose of your unused medications. 1.Use a drug disposal kit: the drug disposal pouch allows you to safely discard your old and unused drugs. Ask your nurse to give you one when you are discharged.2.Visit a local take-back location: Many local pharmacies and police departments have programs that collect old and unwanted prescription drugs. Call your local pharmacy or go to http://HomeViva.HopsFrom[place].com/5G4Ea0t to find one close to you.3.Make use of household items: Use cat litter or old coffee grounds to dispose medications if other options are not available. Mix your drugs with these household products, seal them in an airtight container and throw it into the garbage. Call [facility]: [phone] to be sure your drugs can be disposed of in this way. Some medicines may require a different approach.4.Never flush your medications down the toilet. IF YOU HAVE BEEN PRESCRIBED AN OPIOID FOR PAIN If you have been prescribed an opioid (such as hydrocodone, oxycodone or morphine), it is critical to understand the possible side effects and risks of opioid pain medications. Even when taken as directed, opioids can have several side effects including: Tolerance, meaning you might need to take more of a medication for the same pain relief. Nausea, vomiting and/or constipation. Sleepiness, dizziness, dry mouth, confusion, depression or itching. Physical dependence, meaning you have withdrawal symptoms when a medication is stopped, can develop within a few days. KNOW YOUR RESPONSIBILITIES It is important to know exactly how much and how often to take the opioid pain medications you are prescribed. Never take opioids in higher amounts or more often than prescribed. Do not combine opioids with alcohol or other drugs that cause drowsiness, such as benzodiazepines, also known as benzos, including diazepam and alprazolam, muscle relaxants or sleep aids. Never sell or share prescription opioids. This is illegal. Store opioids in a secure place and out of reach of others (including children, family, friends and visitors). The last page of this document has been signed and retained as a CHART COPY. Signatures Patient Education Materials Colon Polyps Colonoscopy, Adult, Care After Monitored Anesthesia Care, Care After Medication Leaflets My discharge plan and instructions have been reviewed and explained to me and I,RICKI BHARDWAJ understand my current condition and have read and understand these discharge instructions. I have received a written copy of the plan/instructions. If I have questions, I am aware that I should contact my doctor. 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 TECHNICIAN Assessment Postanesthesia assessment Vitals: Vital signs from flowsheet : Vital Signs 11/18/2023 9:25 EDT Heart Rate Monitored 70 bpm bpm Respiratory Rate - Anes 11 br/min br/min 11/18/2023 9:20 EDT Heart Rate Monitored 70 bpm bpm Respiratory Rate - Anes 11 br/min br/min Systolic Blood Pressure Non-Invasive 117 mmHg mmHg Diastolic Blood Pressure Non-Invasive 71 mmHg mmHg 11/18/2023 9:15 EDT Heart Rate Monitored 73 bpm bpm Respiratory Rate - Anes 14 br/min br/min Systolic Blood Pressure Non-Invasive 110 mmHg mmHg Diastolic Blood Pressure Non-Invasive 79 mmHg mmHg 11/18/2023 9:10 EDT Heart Rate Monitored 72 bpm bpm Respiratory Rate - Anes 14 br/min br/min Systolic Blood Pressure Non-Invasive 112 mmHg mmHg Diastolic Blood Pressure Non-Invasive 63 mmHg mmHg 11/18/2023 9:05 EDT Heart Rate Monitored 70 bpm bpm Respiratory Rate - Anes 14 br/min br/min Systolic Blood Pressure Non-Invasive 123 mmHg mmHg Diastolic Blood Pressure Non-Invasive 99 mmHg mmHg 11/18/2023 9:00 EDT Heart Rate Monitored 75 bpm bpm Respiratory Rate - Anes 18 br/min br/min Systolic Blood Pressure Non-Invasive 117 mmHg mmHg Diastolic Blood Pressure Non-Invasive 75 mmHg mmHg 11/18/2023 8:56 EDT Systolic Blood Pressure Non-Invasive 134 mmHg mmHg Diastolic Blood Pressure Non-Invasive 76 mmHg mmHg 11/18/2023 8:55 EDT Respiratory Rate - Anes 0 br/min br/min 11/18/2023 7:45 EDT Temperature Temporal Artery 36.8 DegC Apical Heart Rate 89 bpm Respiratory Rate 19 br/min Systolic Blood Pressure Non-Invasive 166 mmHg HI Diastolic Blood Pressure Non-Invasive 91 mmHg HI Blood Pressure Method Automatic Blood Pressure Location Left arm Blood Pressure Cuff Size Large , Measurements from flowsheet . Mental status: alert & oriented x 4. Respiratory function: respirations are non-labored. Respiratory support: none. CV function: Normal rate. Cardiovascular support: none. Pain. Nausea status: see nursing documentation of medications. Postoperative hydration status: within normal limits. Digitally Signed by NATANAEL LILLY on 11/18/2023 09:28 AM [facility] 11-18-2023 Anesthesiology Consult note Patient: RICKI BHARDWAJ Age: 78 years Sex: Male : 1945 Associated Diagnoses: None Author: NATANAEL LILLY Preoperative Information Time of last solid food intake: 11/18/2023 00:00:00 Time of last clear liquid intake: 11/18/2023 05:30:00 Anesthesia history Patient's history: negative. Family's history: negative. Health Status Allergies: Allergic Reactions (Selected) NKA, Allergies (1) ActiveReaction NKANone Documented Current medications: (Selected) Inpatient Medications Ordered LR 1,000 mL: 50 mL/hr, Intravenous Documented Medications Documented Metoprolol Tartrate 50 mg oral tablet: 50 mg, 1 tab(s), Oral, BID, 60 tab(s), 0 Refill(s) Vitamin C 500 mg oral tablet: 500 mg, 1 tab(s), Oral, qDay, 0 Refill(s) Vitamin D3: qDay, 0 Refill(s) atorvastatin 80 mg oral tablet: 80 mg, 1 tab(s), Oral, Daily, 0 Refill(s) azithromycin 250 mg oral tablet: Take two (2) tablets day 1-then one (1) tablet, Oral, Daily, for 5 day(s), 6 tab(s), 0 Refill(s) escitalopram 20 mg oral tablet: 20 mg, 1 tab(s), Oral, Daily, 0 Refill(s) isosorbide mononitrate 30 mg oral tablet, extended release: 30 mg, 1 tab(s), Oral, qAM, 30 tab(s), 0 Refill(s) vitamin E: Oral, qDay, 0 Refill(s), Medications (1) Active Scheduled: (0) Continuous: (1) Lactated Ringers Infusion 1,000 mL 1,000 mL, Intravenous, 50 mL/hr PRN: (0) Problem list: Active Problems (5) CAD (coronary artery disease) Diverticula of colon History of colon polyps History of rectal bleeding Tobacco use Histories Past Medical History: No active or resolved past medical history items have been selected or recorded. Family History: CAD - Coronary artery disease Mother Procedure history: Appendectomy ([id number]). Placement of stent in cardiac conduit ([id number]). Comments: 05/21/2022 8:19 JONOT - Yamini Harvey RN X1 Social History Social & Psychosocial Habits Alcohol 05/21/2022 Use: Current Type: Liquor Frequency: 1-2 times per week Substance Abuse 05/21/2022 Use: Never Tobacco 05/21/2022 Tobacco Use: 10 or more cigarettes (1/ Type: Cigarettes . Physical Examination Vital Signs 11/18/2023 7:45 EDT Temperature Temporal Artery 36.8 DegC Apical Heart Rate 89 bpm Respiratory Rate 19 br/min Systolic Blood Pressure Non-Invasive 166 mmHg HI Diastolic Blood Pressure Non-Invasive 91 mmHg HI Blood Pressure Method Automatic Blood Pressure Location Left arm Blood Pressure Cuff Size Large Vital Signs(last 24 hrs) Last Charted SBPH 166mmHg (NOV 17 07:45) DBPH 91mmHg (NOV 17 07:45) BMI26.67 (NOV 17 07:45) Measurements from flowsheet : Measurements 11/18/2023 7:45 EDT Height 180 cm Admission Weight 86.4 kg Weight Method Stated [place] Body Weight 74.99 kg BSA Admission 2.06 Body Mass Index 26.67 kg/m2 Pain assessment: Pain Assessment 11/18/2023 7:45 EDT Primary Pain Intensity 0 Pain Scale Type 0-10 Pain scale . General: Alert and oriented. Airway: Normal temporomandibular joint mobility, Normal mouth. Mallampati classification: III (soft palate, base of uvula visible). Dentition Evaluation: Denies loose/chipped teeth. Respiratory: Respirations are non-labored. Cardiovascular: Normal rate. Neurologic: Alert, Oriented. Review / Management Results review: No qualifying data available , Lab results 11/18/2023 8:56 EDT SN - CAt - Case Attendee SN - CAt - Case Attendee SN - CAt - Case Attendee SN - CAt - Case Attendee SN - CAt - Case Attendee SN - CAt - Case Attendee SN - CAt - Case Attendee SN - CAt - Case Attendee SN - CAt - Role Performed Primary Surgeon SN - CAt - Role Performed Credit Control Officer 1 SN - CAt - Role Performed Jaw Skinner SN - CAt - Role Performed MILITARY PAY TECHNICIAN 11/18/2023 8:01 EDT Urinary Elimination Voiding, no difficulties IV Present Present Allergies No Anesthesia Extension Set Applied Yes Tester/Lift Trucker On Yes Consent Form Signed Yes Patient Dressed In Hospital gown History & Physical Update On Chart Yes History & Physical On Chart Yes Belongings At Bedside Pants, Shirt, Shoes, Socks, Undergarments NPO Status Maintained Allergy Band on and Verified No Patient ID Band on and Verified Yes Implants Verified Yes Pacemaker/AICD Verified Yes Site Verified by Patient/Family Yes Last Fluid Intake 11/18/2023 5:30 Last Food Intake 11/16/2023 8:00 Last Void 11/18/2023 6:00 11/18/2023 8:00 EDT Lactated Ringers Injection Begin Bag 1,000 mL mL 11/18/2023 7:53 EDT Continuous IV Infusions LR Antecubital Right 11/18/2023 22 gauge Peripheral IV Activity: Insert new site Peripheral IV Dressing Condition: Clean, Dry, Intact Peripheral IV Dressing Activity: Applied, Transparent dressing Peripheral IV Line Status/Patency: Flushes easily, Continuous infusion Peripheral IV Site Condition: No complications Peripheral IV Equipment: Extension set 11/18/2023 7:45 EDT Designated Person #1 We May Share [facility] Pat- [phone] Designated Person #1 Relationship Significant other Height 180 cm Admission Weight 86.4 kg Weight Method Stated [place] Body Weight 74.99 kg BSA Admission 2.06 Body Mass Index 26.67 kg/m2 Temperature Temporal Artery 36.8 DegC Apical Heart Rate 89 bpm Respiratory Rate 19 br/min Systolic Blood Pressure Non-Invasive 166 mmHg HI Diastolic Blood Pressure Non-Invasive 91 mmHg HI Blood Pressure Method Automatic Blood Pressure Location Left arm Blood Pressure Cuff Size Large Primary Pain Intensity 0 Pain Scale Type 0-10 Pain scale Oxygen Therapy Room air Oxygen Saturation 96 % Status N/A Sensory Deficits None Infectious Disease Symptoms Patient states no symptoms Infectious Disease Recent Exposure No Alcohol and Drug Use No Employee of Institutional Living No Health Care Employee No History of Exposure to TB No History of Positive Chest X-Ray for TB No History of Positive TB Skin Test No Homeless No Known Immunosuppression No Recent Immigrant No Resident of Institutional Living No Bloody Sputum No Fatigue No Fever No Loss of Appetite No Night Sweats No Persistent Cough > 3 Weeks No Weight Loss No Accompanied By On Arrival Family Contact Name and Number pat - spouse GI Prep Miralax GI Prep Completed Yes GI Prep Results Yellow, Clear Barriers to Learning None evident Teaching Method Explanation, Printed materials Preferred Spoken Language Stateless Preferred Written Language Stateless Information Given by Patient Patient's Current Physicians Jose Discharge To, Anticipated Home independently Activity Status ADL Awake Standard Safety ID band on, Call device within reach, Bed in low position, Wheels locked, Upper/Half-Length side-rails up, Safety level maintained Prev Test Positive/Diagnosis w/COVID-19 No Current Quarantine/Isolated any Illness No Any Contact with Sick Animals/Birds No Traveled Anywhere in Last 30 Days No N/A Personal Devices, Patient Valuables None Admission Note-Nursing Procedure/Therapy Intake . Assessment and Plan [employer] ([employer]A) physical status classification: Class III. Anesthetic Preoperative Plan Anesthetic technique: MAC. Informed consent: signed by patient. Digitally Signed by NATANAEL LILLY on 11/18/2023 09:00 AM [facility] 02-23-2015 Evaluation note Diagnosis Onset Date Essential hypertension chron ic Nonrheumatic mitral valve disorder chronic Presence of stent in coronar y artery February, chronic Pure hypercholesterolemia [facility] Work Phone: [phone] 227-979207-01-2015 Evaluation note* Diagnosis Onset Date Resolution Status Admit Date Essential hypertension chronic Oc tob2024 8:25am Nonrheumatic mitral valve disorder c hronic June 08, 2025 8:25am Presence of stent in coronar y artery February, chronic June 08 8:25am Pure hypercholesterolemia chronic June 08, 2025 8:25am [facility] Work Phone: Evaluation + Plan note No data available for this section [facility] Instructions* Name Dates Details How to Access Health Informa tion Online using Patient Portal and [employer] Indication:Non-smoker Start:15-Dec-2020 Instruction Type:Patient Education Patient Instructions Indication:Non-smoker Start:15-Dec-2020 Instruction Type:Provider Instructions for Treatment How to Access Health Informa tion Online using Patient Portal and [employer] Indication:Non-smoker Start:03-Aug-2020 Instruction Type:Patient Education Patient Instructions Indication:Non-smoker Start:03-Aug-2020 Instruction Type:Provider Instructions for Treatment How to access health informa tion online Indication:Non-smoker Start:24-Jun-2020 Instruction Type:Patient Education How to access health informa tion online - Detail Indication:Non-smoker Start:24-Jun-2020 Instruction Type:Patient Education Patient Instructions Indication:Non-smoker Start:24-Jun-2020 Instruction Type:Provider Instructions for Treatment How to access health informa tion online Indication:Non-smoker Start:14-Jul-2019 Instruction Type:Patient Education How to access health informa tion online - Detail Indication:Non-smoker Start:14-Jul-2019 Instruction Type:Patient Education Patient Instructions Indication:Non-smoker Start:14-Jul-2019 Instruction Type:Provider Instructions for Treatment How to access health informa tion online Indication:BMI 26.0-26.9,adult Start:02-Jul-2019 Instruction Type:Patient Education Patient Instructions Indication:BMI 26.0-26.9,adult Start:02-Jul-2019 Instruction Type:Provider Instructions for Treatment How to access health informa tion online Indication:Non-smoker Start:11-Jun-2019 Instruction Type:Patient Education How to access health informa tion online - Detail Indication:Non-smoker Start:11-Jun-2019 Instruction Type:Patient Education Patient Instructions Indication:Non-smoker Start:11-Jun-2019 Instruction Type:Provider Instructions for Treatment How to access health informa tion online Indication:Non-smoker Start:30-Apr-2019 Instruction Type:Patient Education How to access health informa tion online - Detail Indication:Non-smoker Start:30-Apr-2019 Instruction Type:Patient Education Patient Instructions Indication:Non-smoker Start:30-Apr-2019 Instruction Type:Provider Instructions for Treatment How to access health informa tion online Indication:Ceruminosis, right (Renamed from Excessive cerumen in ear canal, right) Start:23-Dec-2018 Instruction Type:Patient Education How to access health informa tion online - Detail Indication:Ceruminosis, right (Renamed from Excessive cerumen in ear canal, right) Start:23-Dec-2018 Instruction Type:Patient Education Patient Instructions Indication:Ceruminosis, right (Renamed from Excessive cerumen in ear canal, right) Start:23-Dec-2018 Instruction Type:Provider Instructions for Treatment How to access health informa tion online Indication:Non-smoker Start:19-Dec-2018 Instruction Type:Patient Education How to access health informa tion online - Detail Indication:Non-smoker Start:19-Dec-2018 Instruction Type:Patient Education Patient Instructions Indication:Non-smoker Start:19-Dec-2018 Instruction Type:Provider Instructions for Treatment cardiovascular counseling Indication:CAD (coronary artery disease) Start:04-Dec-2018 Instruction Type:Provider Instructions for Treatment How to access health informa tion online Indication:Non-smoker Start:04-Dec-2018 Instruction Type:Patient Education How to access health informa tion online - Detail Indication:Non-smoker Start:04-Dec-2018 Instruction Type:Patient Education Patient Instructions Indication:Non-smoker Start:04-Dec-2018 Instruction Type:Provider Instructions for Treatment How to access health informa tion online Indication:Non-smoker Start:28-Aug-2018 Instruction Type:Patient Education How to access health informa tion online - Detail Indication:Non-smoker Start:28-Aug-2018 Instruction Type:Patient Education Patient Instructions Indication:Non-smoker Start:28-Aug-2018 Instruction Type:Provider Instructions for Treatment How to access health informa tion online Indication:BMI 27.0-27.9,adult Start:12-Jun-2018 Instruction Type:Patient Education How to access health informa tion online Indication:BMI 27.0-27.9,adult Start:12-Jun-2018 Instruction Type:Patient Education How to access health informa tion online - Detail Indication:BMI 27.0-27.9,adult Start:12-Jun-2018 Instruction Type:Patient Education Patient Instructions Indication:BMI 27.0-27.9,adult Start:12-Jun-2018 Instruction Type:Provider Instructions for Treatment How to access health informa tion online Indication:Smoker Start:25-Apr-2018 Instruction Type:Patient Education How to access health informa tion online - Detail Indication:Smoker Start:25-Apr-2018 Instruction Type:Patient Education Patient Instructions Indication:Smoker Start:25-Apr-2018 Instruction Type:Provider Instructions for Treatment How to access health informa tion online Indication:Current nonsmoker Start:17-Apr-2018 Instruction Type:Patient Education How to access health informa tion online - Detail Indication:Current nonsmoker Start:17-Apr-2018 Instruction Type:Patient Education Patient Instructions Indication:Current nonsmoker Start:17-Apr-2018 Instruction Type:Provider Instructions for Treatment How to access health informa tion online Indication:Current nonsmoker Start:19-Dec-2017 Instruction Type:Patient Education How to access health informa tion online - Detail Indication:Current nonsmoker Start:19-Dec-2017 Instruction Type:Patient Education Patient Instructions Indication:Current nonsmoker Start:19-Dec-2017 Instruction Type:Provider Instructions for Treatment How to access health informa tion online Indication:Current nonsmoker Start:27-Nov-2017 Instruction Type:Patient Education How to access health informa tion online - Detail Indication:Current nonsmoker Start:27-Nov-2017 Instruction Type:Patient Education Patient Instructions Indication:Current nonsmoker Start:27-Nov-2017 Instruction Type:Provider Instructions for Treatment How to access health informa tion online Indication:BMI 28.0-28.9,adult Start:14-Nov-2017 Instruction Type:Patient Education How to access health informa tion online - Detail Indication:BMI 28.0-28.9,adult Start:14-Nov-2017 Instruction Type:Patient Education Patient Instructions Indication:Cough Start:14-Nov-2017 Instruction Type:Provider Instructions for Treatment How to access health informa tion online Indication:BMI 28.0-28.9,adult Start:05-Nov-2017 Instruction Type:Patient Education How to access health informa tion online - Detail Indication:BMI 28.0-28.9,adult Start:05-Nov-2017 Instruction Type:Patient Education Patient Instructions Indication:BMI 28.0-28.9,adult Start:05-Nov-2017 Instruction Type:Provider Instructions for Treatment How to access health informa tion online Indication:Current nonsmoker Start:27-Aug-2017 Instruction Type:Patient Education How to access health informa tion online - Detail Indication:Current nonsmoker Start:27-Aug-2017 Instruction Type:Patient Education Patient Instructions Indication:Cough Start:27-Aug-2017 Instruction Type:Provider Instructions for Treatment How to access health informa tion online Indication:BMI 28.0-28.9,adult Start:11-Oct-2016 Instruction Type:Patient Education How to access health informa tion online - Detail Indication:BMI 28.0-28.9,adult Start:11-Oct-2016 Instruction Type:Patient Education Patient Instructions Indication:BMI 28.0-28.9,adult Start:11-Oct-2016 Instruction Type:Provider Instructions for Treatment How to access health informa tion online Indication:Controlled diabetes mellitus Start:29-Dec-2015 Instruction Type:Patient Education How to access health informa tion online - Detail Indication:Controlled diabetes mellitus Start:29-Dec-2015 Instruction Type:Patient Education Patient Instructions Indication:Controlled diabetes mellitus Start:29-Dec-2015 Instruction Type:Provider Instructions for Treatment How to access health informa tion online Indication:CAD (coronary artery disease) Start:26-Sep-2015 Instruction Type:Patient Education How to access health informa tion online - Detail Indication:CAD (coronary artery disease) Start:26-Sep-2015 Instruction Type:Patient Education Patient Instructions Indication:CAD (coronary artery disease) Start:26-Sep-2015 Instruction Type:Provider Instructions for Treatment How to access health informa tion online Indication:Hypertension, essential, benign Start:23-Jun-2015 Instruction Type:Patient Education How to access health informa tion online - Detail Indication:Hypertension, essential, benign Start:23-Jun-2015 Instruction Type:Patient Education Patient Instructions Indication:Hypertension, essential, benign Start:23-Jun-2015 Instruction Type:Provider Instructions for Treatment How to access health informa tion online - Detail Indication:Anxiety Start:21-Mar-2015 Instruction Type:Patient Education Patient Instructions Indication:Anxiety Start:21-Mar-2015 Instruction Type:Provider Instructions for Treatment Patient Instructions Indication:Abnormal lung sounds Start:03-Nov-2012 Instruction Type:Provider Instructions for Treatment Patient Instructions Indication:Asthma Start:08-May-2012 Instruction Type:Provider Instructions for Treatment Patient Instructionsset up m edcial visit in 2 weeks adn come fasting bring bp diaries - Indication:Encounter for Medicare annual wellness exam Start:24-Apr-2012 Instruction Type:Provider Instructions for Treatment Patient Instructions Indication:Anxiety Start:24-Apr-2012 Instruction Type:Provider Instructions for Treatment [facility]; [facility] Work Phone: Instructions* Name Dates Details Patient Instructions Indication:Non-smoker Start:11-Jul-2021 Instruction Type:Provider Instructions for Treatment How to Access Health Informa tion Online using Patient Portal and [employer] Apps Indication:Non-smoker Start:11-Jul-2021 Instruction Type:Patient Education Patient Instructions Indication:BMI 26.0-26.9,adult Start:03-Jul-2021 Instruction Type:Provider Instructions for Treatment How to Access Health Informa tion Online using Patient Portal and [employer] Indication:BMI 26.0-26.9,adult Start:03-Jul-2021 Instruction Type:Patient Education How to Access Health Informa tion Online using Patient Portal and [employer] Apps Indication:Non-smoker Start:15-Dec-2020 Instruction Type:Patient Education Patient Instructions Indication:Non-smoker Start:15-Dec-2020 Instruction Type:Provider Instructions for Treatment How to Access Health Informa tion Online using Patient Portal and [employer] Apps Indication:Non-smoker Start:03-Aug-2020 Instruction Type:Patient Education Patient Instructions Indication:Non-smoker Start:03-Aug-2020 Instruction Type:Provider Instructions for Treatment How to access health informa tion online Indication:Non-smoker Start:24-Jun-2020 Instruction Type:Patient Education How to access health informa tion online - Detail Indication:Non-smoker Start:24-Jun-2020 Instruction Type:Patient Education Patient Instructions Indication:Non-smoker Start:24-Jun-2020 Instruction Type:Provider Instructions for Treatment How to access health informa tion online Indication:Non-smoker Start:14-Jul-2019 Instruction Type:Patient Education How to access health informa tion online - Detail Indication:Non-smoker Start:14-Jul-2019 Instruction Type:Patient Education Patient Instructions Indication:Non-smoker Start:14-Jul-2019 Instruction Type:Provider Instructions for Treatment How to access health informa tion online Indication:BMI 26.0-26.9,adult Start:02-Jul-2019 Instruction Type:Patient Education Patient Instructions Indication:BMI 26.0-26.9,adult Start:02-Jul-2019 Instruction Type:Provider Instructions for Treatment How to access health informa tion online Indication:Non-smoker Start:11-Jun-2019 Instruction Type:Patient Education How to access health informa tion online - Detail Indication:Non-smoker Start:11-Jun-2019 Instruction Type:Patient Education Patient Instructions Indication:Non-smoker Start:11-Jun-2019 Instruction Type:Provider Instructions for Treatment How to access health informa tion online Indication:Non-smoker Start:30-Apr-2019 Instruction Type:Patient Education How to access health informa tion online - Detail Indication:Non-smoker Start:30-Apr-2019 Instruction Type:Patient Education Patient Instructions Indication:Non-smoker Start:30-Apr-2019 Instruction Type:Provider Instructions for Treatment How to access health informa tion online Indication:Ceruminosis, right (Renamed from Excessive cerumen in ear canal, right) Start:23-Dec-2018 Instruction Type:Patient Education How to access health informa tion online - Detail Indication:Ceruminosis, right (Renamed from Excessive cerumen in ear canal, right) Start:23-Dec-2018 Instruction Type:Patient Education Patient Instructions Indication:Ceruminosis, right (Renamed from Excessive cerumen in ear canal, right) Start:23-Dec-2018 Instruction Type:Provider Instructions for Treatment How to access health informa tion online Indication:Non-smoker Start:19-Dec-2018 Instruction Type:Patient Education How to access health informa tion online - Detail Indication:Non-smoker Start:19-Dec-2018 Instruction Type:Patient Education Patient Instructions Indication:Non-smoker Start:19-Dec-2018 Instruction Type:Provider Instructions for Treatment cardiovascular counseling Indication:CAD (coronary artery disease) Start:04-Dec-2018 Instruction Type:Provider Instructions for Treatment How to access health informa tion online Indication:Non-smoker Start:04-Dec-2018 Instruction Type:Patient Education How to access health informa tion online - Detail Indication:Non-smoker Start:04-Dec-2018 Instruction Type:Patient Education Patient Instructions Indication:Non-smoker Start:04-Dec-2018 Instruction Type:Provider Instructions for Treatment How to access health informa tion online Indication:Non-smoker Start:28-Aug-2018 Instruction Type:Patient Education How to access health informa tion online - Detail Indication:Non-smoker Start:28-Aug-2018 Instruction Type:Patient Education Patient Instructions Indication:Non-smoker Start:28-Aug-2018 Instruction Type:Provider Instructions for Treatment How to access health informa tion online Indication:BMI 27.0-27.9,adult Start:12-Jun-2018 Instruction Type:Patient Education How to access health informa tion online Indication:BMI 27.0-27.9,adult Start:12-Jun-2018 Instruction Type:Patient Education How to access health informa tion online - Detail Indication:BMI 27.0-27.9,adult Start:12-Jun-2018 Instruction Type:Patient Education Patient Instructions Indication:BMI 27.0-27.9,adult Start:12-Jun-2018 Instruction Type:Provider Instructions for Treatment How to access health informa tion online Indication:Smoker Start:25-Apr-2018 Instruction Type:Patient Education How to access health informa tion online - Detail Indication:Smoker Start:25-Apr-2018 Instruction Type:Patient Education Patient Instructions Indication:Smoker Start:25-Apr-2018 Instruction Type:Provider Instructions for Treatment How to access health informa tion online Indication:Current nonsmoker Start:17-Apr-2018 Instruction Type:Patient Education How to access health informa tion online - Detail Indication:Current nonsmoker Start:17-Apr-2018 Instruction Type:Patient Education Patient Instructions Indication:Current nonsmoker Start:17-Apr-2018 Instruction Type:Provider Instructions for Treatment How to access health informa tion online Indication:Current nonsmoker Start:19-Dec-2017 Instruction Type:Patient Education How to access health informa tion online - Detail Indication:Current nonsmoker Start:19-Dec-2017 Instruction Type:Patient Education Patient Instructions Indication:Current nonsmoker Start:19-Dec-2017 Instruction Type:Provider Instructions for Treatment How to access health informa tion online Indication:Current nonsmoker Start:27-Nov-2017 Instruction Type:Patient Education How to access health informa tion online - Detail Indication:Current nonsmoker Start:27-Nov-2017 Instruction Type:Patient Education Patient Instructions Indication:Current nonsmoker Start:27-Nov-2017 Instruction Type:Provider Instructions for Treatment How to access health informa tion online Indication:BMI 28.0-28.9,adult Start:14-Nov-2017 Instruction Type:Patient Education How to access health informa tion online - Detail Indication:BMI 28.0-28.9,adult Start:14-Nov-2017 Instruction Type:Patient Education Patient Instructions Indication:Cough Start:14-Nov-2017 Instruction Type:Provider Instructions for Treatment How to access health informa tion online Indication:BMI 28.0-28.9,adult Start:05-Nov-2017 Instruction Type:Patient Education How to access health informa tion online - Detail Indication:BMI 28.0-28.9,adult Start:05-Nov-2017 Instruction Type:Patient Education Patient Instructions Indication:BMI 28.0-28.9,adult Start:05-Nov-2017 Instruction Type:Provider Instructions for Treatment How to access health informa tion online Indication:Current nonsmoker Start:27-Aug-2017 Instruction Type:Patient Education How to access health informa tion online - Detail Indication:Current nonsmoker Start:27-Aug-2017 Instruction Type:Patient Education Patient Instructions Indication:Cough Start:27-Aug-2017 Instruction Type:Provider Instructions for Treatment How to access health informa tion online Indication:BMI 28.0-28.9,adult Start:11-Oct-2016 Instruction Type:Patient Education How to access health informa tion online - Detail Indication:BMI 28.0-28.9,adult Start:11-Oct-2016 Instruction Type:Patient Education Patient Instructions Indication:BMI 28.0-28.9,adult Start:11-Oct-2016 Instruction Type:Provider Instructions for Treatment How to access health informa tion online Indication:Controlled diabetes mellitus Start:29-Dec-2015 Instruction Type:Patient Education How to access health informa tion online - Detail Indication:Controlled diabetes mellitus Start:29-Dec-2015 Instruction Type:Patient Education Patient Instructions Indication:Controlled diabetes mellitus Start:29-Dec-2015 Instruction Type:Provider Instructions for Treatment How to access health informa tion online Indication:CAD (coronary artery disease) Start:26-Sep-2015 Instruction Type:Patient Education How to access health informa tion online - Detail Indication:CAD (coronary artery disease) Start:26-Sep-2015 Instruction Type:Patient Education Patient Instructions Indication:CAD (coronary artery disease) Start:26-Sep-2015 Instruction Type:Provider Instructions for Treatment How to access health informa tion online Indication:Hypertension, essential, benign Start:23-Jun-2015 Instruction Type:Patient Education How to access health informa tion online - Detail Indication:Hypertension, essential, benign Start:23-Jun-2015 Instruction Type:Patient Education Patient Instructions Indication:Hypertension, essential, benign Start:23-Jun-2015 Instruction Type:Provider Instructions for Treatment How to access health informa tion online - Detail Indication:Anxiety Start:21-Mar-2015 Instruction Type:Patient Education Patient Instructions Indication:Anxiety Start:21-Mar-2015 Instruction Type:Provider Instructions for Treatment Patient Instructions Indication:Abnormal lung sounds Start:03-Nov-2012 Instruction Type:Provider Instructions for Treatment Patient Instructions Indication:Asthma Start:08-May-2012 Instruction Type:Provider Instructions for Treatment Patient Instructionsset up m edcial visit in 2 weeks adn come fasting bring bp diaries - Indication:Encounter for Medicare annual wellness exam Start:24-Apr-2012 Instruction Type:Provider Instructions for Treatment Patient Instructions Indication:Anxiety Start:24-Apr-2012 Instruction Type:Provider Instructions for Treatment [facility]; [facility] Work Phone: Instructions* Name Dates Details Patient Instructions Indication:Non-smoker Start:28-Dec-2021 Instruction Type:Provider Instructions for Treatment How to Access Health Informa tion Online using Patient Portal and [employer] Indication:Non-smoker Start:28-Dec-2021 Instruction Type:Patient Education Patient Instructions Indication:BMI 26.0-26.9,adult Start:15-Nov-2021 Instruction Type:Provider Instructions for Treatment How to Access Health Informa tion Online using Patient Portal and [employer] Indication:Ceruminosis, bilateral (Renamed from Excessive cerumen in both ear canals) Start:15-Nov-2021 Instruction Type:Patient Education Patient Instructions Indication:Non-smoker Start:11-Jul-2021 Instruction Type:Provider Instructions for Treatment How to Access Health Informa tion Online using Patient Portal and [employer] Apps Indication:Non-smoker Start:11-Jul-2021 Instruction Type:Patient Education Patient Instructions Indication:BMI 26.0-26.9,adult Start:03-Jul-2021 Instruction Type:Provider Instructions for Treatment How to Access Health Informa tion Online using Patient Portal and [employer] Indication:BMI 26.0-26.9,adult Start:03-Jul-2021 Instruction Type:Patient Education How to Access Health Informa tion Online using Patient Portal and [employer] Apps Indication:Non-smoker Start:15-Dec-2020 Instruction Type:Patient Education Patient Instructions Indication:Non-smoker Start:15-Dec-2020 Instruction Type:Provider Instructions for Treatment How to Access Health Informa tion Online using Patient Portal and [employer] Indication:Non-smoker Start:03-Aug-2020 Instruction Type:Patient Education Patient Instructions Indication:Non-smoker Start:03-Aug-2020 Instruction Type:Provider Instructions for Treatment How to access health informa tion online Indication:Non-smoker Start:24-Jun-2020 Instruction Type:Patient Education How to access health informa tion online - Detail Indication:Non-smoker Start:24-Jun-2020 Instruction Type:Patient Education Patient Instructions Indication:Non-smoker Start:24-Jun-2020 Instruction Type:Provider Instructions for Treatment How to access health informa tion online Indication:Non-smoker Start:14-Jul-2019 Instruction Type:Patient Education How to access health informa tion online - Detail Indication:Non-smoker Start:14-Jul-2019 Instruction Type:Patient Education Patient Instructions Indication:Non-smoker Start:14-Jul-2019 Instruction Type:Provider Instructions for Treatment How to access health informa tion online Indication:BMI 26.0-26.9,adult Start:02-Jul-2019 Instruction Type:Patient Education Patient Instructions Indication:BMI 26.0-26.9,adult Start:02-Jul-2019 Instruction Type:Provider Instructions for Treatment How to access health informa tion online Indication:Non-smoker Start:11-Jun-2019 Instruction Type:Patient Education How to access health informa tion online - Detail Indication:Non-smoker Start:11-Jun-2019 Instruction Type:Patient Education Patient Instructions Indication:Non-smoker Start:11-Jun-2019 Instruction Type:Provider Instructions for Treatment How to access health informa tion online Indication:Non-smoker Start:30-Apr-2019 Instruction Type:Patient Education How to access health informa tion online - Detail Indication:Non-smoker Start:30-Apr-2019 Instruction Type:Patient Education Patient Instructions Indication:Non-smoker Start:30-Apr-2019 Instruction Type:Provider Instructions for Treatment How to access health informa tion online Indication:Ceruminosis, right (Renamed from Excessive cerumen in ear canal, right) Start:23-Dec-2018 Instruction Type:Patient Education How to access health informa tion online - Detail Indication:Ceruminosis, right (Renamed from Excessive cerumen in ear canal, right) Start:23-Dec-2018 Instruction Type:Patient Education Patient Instructions Indication:Ceruminosis, right (Renamed from Excessive cerumen in ear canal, right) Start:23-Dec-2018 Instruction Type:Provider Instructions for Treatment How to access health informa tion online Indication:Non-smoker Start:19-Dec-2018 Instruction Type:Patient Education How to access health informa tion online - Detail Indication:Non-smoker Start:19-Dec-2018 Instruction Type:Patient Education Patient Instructions Indication:Non-smoker Start:19-Dec-2018 Instruction Type:Provider Instructions for Treatment cardiovascular counseling Indication:CAD (coronary artery disease) Start:04-Dec-2018 Instruction Type:Provider Instructions for Treatment How to access health informa tion online Indication:Non-smoker Start:04-Dec-2018 Instruction Type:Patient Education How to access health informa tion online - Detail Indication:Non-smoker Start:04-Dec-2018 Instruction Type:Patient Education Patient Instructions Indication:Non-smoker Start:04-Dec-2018 Instruction Type:Provider Instructions for Treatment How to access health informa tion online Indication:Non-smoker Start:28-Aug-2018 Instruction Type:Patient Education How to access health informa tion online - Detail Indication:Non-smoker Start:28-Aug-2018 Instruction Type:Patient Education Patient Instructions Indication:Non-smoker Start:28-Aug-2018 Instruction Type:Provider Instructions for Treatment How to access health informa tion online Indication:BMI 27.0-27.9,adult Start:12-Jun-2018 Instruction Type:Patient Education How to access health informa tion online Indication:BMI 27.0-27.9,adult Start:12-Jun-2018 Instruction Type:Patient Education How to access health informa tion online - Detail Indication:BMI 27.0-27.9,adult Start:12-Jun-2018 Instruction Type:Patient Education Patient Instructions Indication:BMI 27.0-27.9,adult Start:12-Jun-2018 Instruction Type:Provider Instructions for Treatment How to access health informa tion online Indication:Smoker Start:25-Apr-2018 Instruction Type:Patient Education How to access health informa tion online - Detail Indication:Smoker Start:25-Apr-2018 Instruction Type:Patient Education Patient Instructions Indication:Smoker Start:25-Apr-2018 Instruction Type:Provider Instructions for Treatment How to access health informa tion online Indication:Current nonsmoker Start:17-Apr-2018 Instruction Type:Patient Education How to access health informa tion online - Detail Indication:Current nonsmoker Start:17-Apr-2018 Instruction Type:Patient Education Patient Instructions Indication:Current nonsmoker Start:17-Apr-2018 Instruction Type:Provider Instructions for Treatment How to access health informa tion online Indication:Current nonsmoker Start:19-Dec-2017 Instruction Type:Patient Education How to access health informa tion online - Detail Indication:Current nonsmoker Start:19-Dec-2017 Instruction Type:Patient Education Patient Instructions Indication:Current nonsmoker Start:19-Dec-2017 Instruction Type:Provider Instructions for Treatment How to access health informa tion online Indication:Current nonsmoker Start:27-Nov-2017 Instruction Type:Patient Education How to access health informa tion online - Detail Indication:Current nonsmoker Start:27-Nov-2017 Instruction Type:Patient Education Patient Instructions Indication:Current nonsmoker Start:27-Nov-2017 Instruction Type:Provider Instructions for Treatment How to access health informa tion online Indication:BMI 28.0-28.9,adult Start:14-Nov-2017 Instruction Type:Patient Education How to access health informa tion online - Detail Indication:BMI 28.0-28.9,adult Start:14-Nov-2017 Instruction Type:Patient Education Patient Instructions Indication:Cough Start:14-Nov-2017 Instruction Type:Provider Instructions for Treatment How to access health informa tion online Indication:BMI 28.0-28.9,adult Start:05-Nov-2017 Instruction Type:Patient Education How to access health informa tion online - Detail Indication:BMI 28.0-28.9,adult Start:05-Nov-2017 Instruction Type:Patient Education Patient Instructions Indication:BMI 28.0-28.9,adult Start:05-Nov-2017 Instruction Type:Provider Instructions for Treatment How to access health informa tion online Indication:Current nonsmoker Start:27-Aug-2017 Instruction Type:Patient Education How to access health informa tion online - Detail Indication:Current nonsmoker Start:27-Aug-2017 Instruction Type:Patient Education Patient Instructions Indication:Cough Start:27-Aug-2017 Instruction Type:Provider Instructions for Treatment How to access health informa tion online Indication:BMI 28.0-28.9,adult Start:11-Oct-2016 Instruction Type:Patient Education How to access health informa tion online - Detail Indication:BMI 28.0-28.9,adult Start:11-Oct-2016 Instruction Type:Patient Education Patient Instructions Indication:BMI 28.0-28.9,adult Start:11-Oct-2016 Instruction Type:Provider Instructions for Treatment How to access health informa tion online Indication:Controlled diabetes mellitus Start:29-Dec-2015 Instruction Type:Patient Education How to access health informa tion online - Detail Indication:Controlled diabetes mellitus Start:29-Dec-2015 Instruction Type:Patient Education Patient Instructions Indication:Controlled diabetes mellitus Start:29-Dec-2015 Instruction Type:Provider Instructions for Treatment How to access health informa tion online Indication:CAD (coronary artery disease) Start:26-Sep-2015 Instruction Type:Patient Education How to access health informa tion online - Detail Indication:CAD (coronary artery disease) Start:26-Sep-2015 Instruction Type:Patient Education Patient Instructions Indication:CAD (coronary artery disease) Start:26-Sep-2015 Instruction Type:Provider Instructions for Treatment How to access health informa tion online Indication:Hypertension, essential, benign Start:23-Jun-2015 Instruction Type:Patient Education How to access health informa tion online - Detail Indication:Hypertension, essential, benign Start:23-Jun-2015 Instruction Type:Patient Education Patient Instructions Indication:Hypertension, essential, benign Start:23-Jun-2015 Instruction Type:Provider Instructions for Treatment How to access health informa tion online - Detail Indication:Anxiety Start:21-Mar-2015 Instruction Type:Patient Education Patient Instructions Indication:Anxiety Start:21-Mar-2015 Instruction Type:Provider Instructions for Treatment Patient Instructions Indication:Abnormal lung sounds Start:03-Nov-2012 Instruction Type:Provider Instructions for Treatment Patient Instructions Indication:Asthma Start:08-May-2012 Instruction Type:Provider Instructions for Treatment Patient Instructionsset up m edcial visit in 2 weeks adn come fasting bring bp diaries - Indication:Encounter for Medicare annual wellness exam Start:24-Apr-2012 Instruction Type:Provider Instructions for Treatment Patient Instructions Indication:Anxiety Start:24-Apr-2012 Instruction Type:Provider Instructions for Treatment [facility]; [facility] Work Phone: Instructions* Name Dates Details Patient Instructions Indication:BMI 26.0-26.9,adult Start:15-May-2022 Instruction Type:Provider Instructions for Treatment How to Access Health Informa tion Online using Patient Portal and [employer] Indication:BMI 26.0-26.9,adult Start:15-May-2022 Instruction Type:Patient Education Patient Instructions Indication:Non-smoker Start:28-Dec-2021 Instruction Type:Provider Instructions for Treatment How to Access Health Informa tion Online using Patient Portal and [employer] Indication:Non-smoker Start:28-Dec-2021 Instruction Type:Patient Education Patient Instructions Indication:BMI 26.0-26.9,adult Start:15-Nov-2021 Instruction Type:Provider Instructions for Treatment How to Access Health Informa tion Online using Patient Portal and [employer] [facility] Indication:Ceruminosis, bilateral (Renamed from Excessive cerumen in both ear canals) Start:15-Nov-2021 Instruction Type:Patient Education Patient Instructions Indication:Non-smoker Start:11-Jul-2021 Instruction Type:Provider Instructions for Treatment How to Access Health Informa tion Online using Patient Portal and [employer] Indication:Non-smoker Start:11-Jul-2021 Instruction Type:Patient Education Patient Instructions Indication:BMI 26.0-26.9,adult Start:03-Jul-2021 Instruction Type:Provider Instructions for Treatment How to Access Health Informa tion Online using Patient Portal and [employer] Indication:BMI 26.0-26.9,adult Start:03-Jul-2021 Instruction Type:Patient Education How to Access Health Informa tion Online using Patient Portal and [employer] Indication:Non-smoker Start:15-Dec-2020 Instruction Type:Patient Education Patient Instructions Indication:Non-smoker Start:15-Dec-2020 Instruction Type:Provider Instructions for Treatment How to Access Health Informa tion Online using Patient Portal and [employer] Indication:Non-smoker Start:03-Aug-2020 Instruction Type:Patient Education Patient Instructions Indication:Non-smoker Start:03-Aug-2020 Instruction Type:Provider Instructions for Treatment How to access health informa tion online Indication:Non-smoker Start:24-Jun-2020 Instruction Type:Patient Education How to access health informa tion online - Detail Indication:Non-smoker Start:24-Jun-2020 Instruction Type:Patient Education Patient Instructions Indication:Non-smoker Start:24-Jun-2020 Instruction Type:Provider Instructions for Treatment How to access health informa tion online Indication:Non-smoker Start:14-Jul-2019 Instruction Type:Patient Education How to access health informa tion online - Detail Indication:Non-smoker Start:14-Jul-2019 Instruction Type:Patient Education Patient Instructions Indication:Non-smoker Start:14-Jul-2019 Instruction Type:Provider Instructions for Treatment How to access health informa tion online Indication:BMI 26.0-26.9,adult Start:02-Jul-2019 Instruction Type:Patient Education Patient Instructions Indication:BMI 26.0-26.9,adult Start:02-Jul-2019 Instruction Type:Provider Instructions for Treatment How to access health informa tion online Indication:Non-smoker Start:11-Jun-2019 Instruction Type:Patient Education How to access health informa tion online - Detail Indication:Non-smoker Start:11-Jun-2019 Instruction Type:Patient Education Patient Instructions Indication:Non-smoker Start:11-Jun-2019 Instruction Type:Provider Instructions for Treatment How to access health informa tion online Indication:Non-smoker Start:30-Apr-2019 Instruction Type:Patient Education How to access health informa tion online - Detail Indication:Non-smoker Start:30-Apr-2019 Instruction Type:Patient Education Patient Instructions Indication:Non-smoker Start:30-Apr-2019 Instruction Type:Provider Instructions for Treatment How to access health informa tion online Indication:Ceruminosis, right (Renamed from Excessive cerumen in ear canal, right) Start:23-Dec-2018 Instruction Type:Patient Education How to access health informa tion online - Detail Indication:Ceruminosis, right (Renamed from Excessive cerumen in ear canal, right) Start:23-Dec-2018 Instruction Type:Patient Education Patient Instructions Indication:Ceruminosis, right (Renamed from Excessive cerumen in ear canal, right) Start:23-Dec-2018 Instruction Type:Provider Instructions for Treatment How to access health informa tion online Indication:Non-smoker Start:19-Dec-2018 Instruction Type:Patient Education How to access health informa tion online - Detail Indication:Non-smoker Start:19-Dec-2018 Instruction Type:Patient Education Patient Instructions Indication:Non-smoker Start:19-Dec-2018 Instruction Type:Provider Instructions for Treatment cardiovascular counseling Indication:CAD (coronary artery disease) Start:04-Dec-2018 Instruction Type:Provider Instructions for Treatment How to access health informa tion online Indication:Non-smoker Start:04-Dec-2018 Instruction Type:Patient Education How to access health informa tion online - Detail Indication:Non-smoker Start:04-Dec-2018 Instruction Type:Patient Education Patient Instructions Indication:Non-smoker Start:04-Dec-2018 Instruction Type:Provider Instructions for Treatment How to access health informa tion online Indication:Non-smoker Start:28-Aug-2018 Instruction Type:Patient Education How to access health informa tion online - Detail Indication:Non-smoker Start:28-Aug-2018 Instruction Type:Patient Education Patient Instructions Indication:Non-smoker Start:28-Aug-2018 Instruction Type:Provider Instructions for Treatment How to access health informa tion online Indication:BMI 27.0-27.9,adult Start:12-Jun-2018 Instruction Type:Patient Education How to access health informa tion online Indication:BMI 27.0-27.9,adult Start:12-Jun-2018 Instruction Type:Patient Education How to access health informa tion online - Detail Indication:BMI 27.0-27.9,adult Start:12-Jun-2018 Instruction Type:Patient Education Patient Instructions Indication:BMI 27.0-27.9,adult Start:12-Jun-2018 Instruction Type:Provider Instructions for Treatment How to access health informa tion online Indication:Smoker Start:25-Apr-2018 Instruction Type:Patient Education How to access health informa tion online - Detail Indication:Smoker Start:25-Apr-2018 Instruction Type:Patient Education Patient Instructions Indication:Smoker Start:25-Apr-2018 Instruction Type:Provider Instructions for Treatment How to access health informa tion online Indication:Current nonsmoker Start:17-Apr-2018 Instruction Type:Patient Education How to access health informa tion online - Detail Indication:Current nonsmoker Start:17-Apr-2018 Instruction Type:Patient Education Patient Instructions Indication:Current nonsmoker Start:17-Apr-2018 Instruction Type:Provider Instructions for Treatment How to access health informa tion online Indication:Current nonsmoker Start:19-Dec-2017 Instruction Type:Patient Education How to access health informa tion online - Detail Indication:Current nonsmoker Start:19-Dec-2017 Instruction Type:Patient Education Patient Instructions Indication:Current nonsmoker Start:19-Dec-2017 Instruction Type:Provider Instructions for Treatment How to access health informa tion online Indication:Current nonsmoker Start:27-Nov-2017 Instruction Type:Patient Education How to access health informa tion online - Detail Indication:Current nonsmoker Start:27-Nov-2017 Instruction Type:Patient Education Patient Instructions Indication:Current nonsmoker Start:27-Nov-2017 Instruction Type:Provider Instructions for Treatment How to access health informa tion online Indication:BMI 28.0-28.9,adult Start:14-Nov-2017 Instruction Type:Patient Education How to access health informa tion online - Detail Indication:BMI 28.0-28.9,adult Start:14-Nov-2017 Instruction Type:Patient Education Patient Instructions Indication:Cough Start:14-Nov-2017 Instruction Type:Provider Instructions for Treatment How to access health informa tion online Indication:BMI 28.0-28.9,adult Start:05-Nov-2017 Instruction Type:Patient Education How to access health informa tion online - Detail Indication:BMI 28.0-28.9,adult Start:05-Nov-2017 Instruction Type:Patient Education Patient Instructions Indication:BMI 28.0-28.9,adult Start:05-Nov-2017 Instruction Type:Provider Instructions for Treatment How to access health informa tion online Indication:Current nonsmoker Start:27-Aug-2017 Instruction Type:Patient Education How to access health informa tion online - Detail Indication:Current nonsmoker Start:27-Aug-2017 Instruction Type:Patient Education Patient Instructions Indication:Cough Start:27-Aug-2017 Instruction Type:Provider Instructions for Treatment How to access health informa tion online Indication:BMI 28.0-28.9,adult Start:11-Oct-2016 Instruction Type:Patient Education How to access health informa tion online - Detail Indication:BMI 28.0-28.9,adult Start:11-Oct-2016 Instruction Type:Patient Education Patient Instructions Indication:BMI 28.0-28.9,adult Start:11-Oct-2016 Instruction Type:Provider Instructions for Treatment How to access health informa tion online Indication:Controlled diabetes mellitus Start:29-Dec-2015 Instruction Type:Patient Education How to access health informa tion online - Detail Indication:Controlled diabetes mellitus Start:29-Dec-2015 Instruction Type:Patient Education Patient Instructions Indication:Controlled diabetes mellitus Start:29-Dec-2015 Instruction Type:Provider Instructions for Treatment How to access health informa tion online Indication:CAD (coronary artery disease) Start:26-Sep-2015 Instruction Type:Patient Education How to access health informa tion online - Detail Indication:CAD (coronary artery disease) Start:26-Sep-2015 Instruction Type:Patient Education Patient Instructions Indication:CAD (coronary artery disease) Start:26-Sep-2015 Instruction Type:Provider Instructions for Treatment How to access health informa tion online Indication:Hypertension, essential, benign Start:23-Jun-2015 Instruction Type:Patient Education How to access health informa tion online - Detail Indication:Hypertension, essential, benign Start:23-Jun-2015 Instruction Type:Patient Education Patient Instructions Indication:Hypertension, essential, benign Start:23-Jun-2015 Instruction Type:Provider Instructions for Treatment How to access health informa tion online - Detail Indication:Anxiety Start:21-Mar-2015 Instruction Type:Patient Education Patient Instructions Indication:Anxiety Start:21-Mar-2015 Instruction Type:Provider Instructions for Treatment Patient Instructions Indication:Abnormal lung sounds Start:03-Nov-2012 Instruction Type:Provider Instructions for Treatment Patient Instructions Indication:Asthma Start:08-May-2012 Instruction Type:Provider Instructions for Treatment Patient Instructionsset up m edcial visit in 2 weeks adn come fasting bring bp diaries - Indication:Encounter for Medicare annual wellness exam Start:24-Apr-2012 Instruction Type:Provider Instructions for Treatment Patient Instructions Indication:Anxiety Start:24-Apr-2012 Instruction Type:Provider Instructions for Treatment [facility]; [facility] Work Phone: Instructions* Name Dates Details Patient Instructions Indication:BMI 26.0-26.9,adult Start:15-May-2022 Instruction Type:Provider Instructions for Treatment How to Access Health Informa tion Online using Patient Portal and [employer] Indication:BMI 26.0-26.9,adult Start:15-May-2022 Instruction Type:Patient Education Patient Instructions Indication:Non-smoker Start:28-Dec-2021 Instruction Type:Provider Instructions for Treatment How to Access Health Informa tion Online using Patient Portal and [employer] Indication:Non-smoker Start:28-Dec-2021 Instruction Type:Patient Education Patient Instructions Indication:BMI 26.0-26.9,adult Start:15-Nov-2021 Instruction Type:Provider Instructions for Treatment How to Access Health Informa tion Online using Patient Portal and [employer] Indication:Ceruminosis, bilateral (Renamed from Excessive cerumen in both ear canals) Start:15-Nov-2021 Instruction Type:Patient Education Patient Instructions Indication:Non-smoker Start:11-Jul-2021 Instruction Type:Provider Instructions for Treatment How to Access Health Informa tion Online using Patient Portal and [employer] Indication:Non-smoker Start:11-Jul-2021 Instruction Type:Patient Education Patient Instructions Indication:BMI 26.0-26.9,adult Start:03-Jul-2021 Instruction Type:Provider Instructions for Treatment How to Access Health Informa tion Online using Patient Portal and [email or web address] Indication:BMI 26.0-26.9,adult Start:03-Jul-2021 Instruction Type:Patient Education How to Access Health Informa tion Online using Patient Portal and [email or web address] Indication:Non-smoker Start:15-Dec-2020 Instruction Type:Patient Education Patient Instructions Indication:Non-smoker Start:15-Dec-2020 Instruction Type:Provider Instructions for Treatment How to Access Health Informa tion Online using Patient Portal and [employer] Indication:Non-smoker Start:03-Aug-2020 Instruction Type:Patient Education Patient Instructions Indication:Non-smoker Start:03-Aug-2020 Instruction Type:Provider Instructions for Treatment How to access health informa tion online Indication:Non-smoker Start:24-Jun-2020 Instruction Type:Patient Education How to access health informa tion online - Detail Indication:Non-smoker Start:24-Jun-2020 Instruction Type:Patient Education Patient Instructions Indication:Non-smoker Start:24-Jun-2020 Instruction Type:Provider Instructions for Treatment How to access health informa tion online Indication:Non-smoker Start:14-Jul-2019 Instruction Type:Patient Education How to access health informa tion online - Detail Indication:Non-smoker Start:14-Jul-2019 Instruction Type:Patient Education Patient Instructions Indication:Non-smoker Start:14-Jul-2019 Instruction Type:Provider Instructions for Treatment How to access health informa tion online Indication:BMI 26.0-26.9,adult Start:02-Jul-2019 Instruction Type:Patient Education Patient Instructions Indication:BMI 26.0-26.9,adult Start:02-Jul-2019 Instruction Type:Provider Instructions for Treatment How to access health informa tion online Indication:Non-smoker Start:11-Jun-2019 Instruction Type:Patient Education How to access health informa tion online - Detail Indication:Non-smoker Start:11-Jun-2019 Instruction Type:Patient Education Patient Instructions Indication:Non-smoker Start:11-Jun-2019 Instruction Type:Provider Instructions for Treatment How to access health informa tion online Indication:Non-smoker Start:30-Apr-2019 Instruction Type:Patient Education How to access health informa tion online - Detail Indication:Non-smoker Start:30-Apr-2019 Instruction Type:Patient Education Patient Instructions Indication:Non-smoker Start:30-Apr-2019 Instruction Type:Provider Instructions for Treatment How to access health informa tion online Indication:Ceruminosis, right (Renamed from Excessive cerumen in ear canal, right) Start:23-Dec-2018 Instruction Type:Patient Education How to access health informa tion online - Detail Indication:Ceruminosis, right (Renamed from Excessive cerumen in ear canal, right) Start:23-Dec-2018 Instruction Type:Patient Education Patient Instructions Indication:Ceruminosis, right (Renamed from Excessive cerumen in ear canal, right) Start:23-Dec-2018 Instruction Type:Provider Instructions for Treatment How to access health informa tion online Indication:Non-smoker Start:19-Dec-2018 Instruction Type:Patient Education How to access health informa tion online - Detail Indication:Non-smoker Start:19-Dec-2018 Instruction Type:Patient Education Patient Instructions Indication:Non-smoker Start:19-Dec-2018 Instruction Type:Provider Instructions for Treatment cardiovascular counseling Indication:CAD (coronary artery disease) Start:04-Dec-2018 Instruction Type:Provider Instructions for Treatment How to access health informa tion online Indication:Non-smoker Start:04-Dec-2018 Instruction Type:Patient Education How to access health informa tion online - Detail Indication:Non-smoker Start:04-Dec-2018 Instruction Type:Patient Education Patient Instructions Indication:Non-smoker Start:04-Dec-2018 Instruction Type:Provider Instructions for Treatment How to access health informa tion online Indication:Non-smoker Start:28-Aug-2018 Instruction Type:Patient Education How to access health informa tion online - Detail Indication:Non-smoker Start:28-Aug-2018 Instruction Type:Patient Education Patient Instructions Indication:Non-smoker Start:28-Aug-2018 Instruction Type:Provider Instructions for Treatment How to access health informa tion online Indication:BMI 27.0-27.9,adult Start:12-Jun-2018 Instruction Type:Patient Education How to access health informa tion online Indication:BMI 27.0-27.9,adult Start:12-Jun-2018 Instruction Type:Patient Education How to access health informa tion online - Detail Indication:BMI 27.0-27.9,adult Start:12-Jun-2018 Instruction Type:Patient Education Patient Instructions Indication:BMI 27.0-27.9,adult Start:12-Jun-2018 Instruction Type:Provider Instructions for Treatment How to access health informa tion online Indication:Smoker Start:25-Apr-2018 Instruction Type:Patient Education How to access health informa tion online - Detail Indication:Smoker Start:25-Apr-2018 Instruction Type:Patient Education Patient Instructions Indication:Smoker Start:25-Apr-2018 Instruction Type:Provider Instructions for Treatment How to access health informa tion online Indication:Current nonsmoker Start:17-Apr-2018 Instruction Type:Patient Education How to access health informa tion online - Detail Indication:Current nonsmoker Start:17-Apr-2018 Instruction Type:Patient Education Patient Instructions Indication:Current nonsmoker Start:17-Apr-2018 Instruction Type:Provider Instructions for Treatment How to access health informa tion online Indication:Current nonsmoker Start:19-Dec-2017 Instruction Type:Patient Education How to access health informa tion online - Detail Indication:Current nonsmoker Start:19-Dec-2017 Instruction Type:Patient Education Patient Instructions Indication:Current nonsmoker Start:19-Dec-2017 Instruction Type:Provider Instructions for Treatment How to access health informa tion online Indication:Current nonsmoker Start:27-Nov-2017 Instruction Type:Patient Education How to access health informa tion online - Detail Indication:Current nonsmoker Start:27-Nov-2017 Instruction Type:Patient Education Patient Instructions Indication:Current nonsmoker Start:27-Nov-2017 Instruction Type:Provider Instructions for Treatment How to access health informa tion online Indication:BMI 28.0-28.9,adult Start:14-Nov-2017 Instruction Type:Patient Education How to access health informa tion online - Detail Indication:BMI 28.0-28.9,adult Start:14-Nov-2017 Instruction Type:Patient Education Patient Instructions Indication:Cough Start:14-Nov-2017 Instruction Type:Provider Instructions for Treatment How to access health informa tion online Indication:BMI 28.0-28.9,adult Start:05-Nov-2017 Instruction Type:Patient Education How to access health informa tion online - Detail Indication:BMI 28.0-28.9,adult Start:05-Nov-2017 Instruction Type:Patient Education Patient Instructions Indication:BMI 28.0-28.9,adult Start:05-Nov-2017 Instruction Type:Provider Instructions for Treatment How to access health informa tion online Indication:Current nonsmoker Start:27-Aug-2017 Instruction Type:Patient Education How to access health informa tion online - Detail Indication:Current nonsmoker Start:27-Aug-2017 Instruction Type:Patient Education Patient Instructions Indication:Cough Start:27-Aug-2017 Instruction Type:Provider Instructions for Treatment How to access health informa tion online Indication:BMI 28.0-28.9,adult Start:11-Oct-2016 Instruction Type:Patient Education How to access health informa tion online - Detail Indication:BMI 28.0-28.9,adult Start:11-Oct-2016 Instruction Type:Patient Education Patient Instructions Indication:BMI 28.0-28.9,adult Start:11-Oct-2016 Instruction Type:Provider Instructions for Treatment How to access health informa tion online Indication:Controlled diabetes mellitus Start:29-Dec-2015 Instruction Type:Patient Education How to access health informa tion online - Detail Indication:Controlled diabetes mellitus Start:29-Dec-2015 Instruction Type:Patient Education Patient Instructions Indication:Controlled diabetes mellitus Start:29-Dec-2015 Instruction Type:Provider Instructions for Treatment How to access health informa tion online Indication:CAD (coronary artery disease) Start:26-Sep-2015 Instruction Type:Patient Education How to access health informa tion online - Detail Indication:CAD (coronary artery disease) Start:26-Sep-2015 Instruction Type:Patient Education Patient Instructions Indication:CAD (coronary artery disease) Start:26-Sep-2015 Instruction Type:Provider Instructions for Treatment How to access health informa tion online Indication:Hypertension, essential, benign Start:23-Jun-2015 Instruction Type:Patient Education How to access health informa tion online - Detail Indication:Hypertension, essential, benign Start:23-Jun-2015 Instruction Type:Patient Education Patient Instructions Indication:Hypertension, essential, benign Start:23-Jun-2015 Instruction Type:Provider Instructions for Treatment How to access health informa tion online - Detail Indication:Anxiety Start:21-Mar-2015 Instruction Type:Patient Education Patient Instructions Indication:Anxiety Start:21-Mar-2015 Instruction Type:Provider Instructions for Treatment Patient Instructions Indication:Abnormal lung sounds Start:03-Nov-2012 Instruction Type:Provider Instructions for Treatment Patient Instructions Indication:Asthma Start:08-May-2012 Instruction Type:Provider Instructions for Treatment Patient Instructionsset up m edcial visit in 2 weeks adn come fasting bring bp diaries - Indication:Encounter for Medicare annual wellness exam Start:24-Apr-2012 Instruction Type:Provider Instructions for Treatment Patient Instructions Indication:Anxiety Start:24-Apr-2012 Instruction Type:Provider Instructions for Treatment [facility]; [facility] Work Phone: Instructions* Name Dates Details Patient Instructions Indication:Non-smoker Start:30-Jul-2022 Instruction Type:Provider Instructions for Treatment How to Access Health Informa tion Online using Patient Portal and [employer] Apps Indication:Non-smoker Start:30-Jul-2022 Instruction Type:Patient Education Patient Instructions Indication:BMI 26.0-26.9,adult Start:15-May-2022 Instruction Type:Provider Instructions for Treatment How to Access Health Informa tion Online using Patient Portal and [email or web address] Apps Indication:BMI 26.0-26.9,adult Start:15-May-2022 Instruction Type:Patient Education Patient Instructions Indication:Non-smoker Start:28-Dec-2021 Instruction Type:Provider Instructions for Treatment How to Access Health Informa tion Online using Patient Portal and [employer] Apps Indication:Non-smoker Start:28-Dec-2021 Instruction Type:Patient Education Patient Instructions Indication:BMI 26.0-26.9,adult Start:15-Nov-2021 Instruction Type:Provider Instructions for Treatment How to Access Health Informa tion Online using Patient Portal and [employer] Apps Indication:Ceruminosis, bilateral (Renamed from Excessive cerumen in both ear canals) Start:15-Nov-2021 Instruction Type:Patient Education Patient Instructions Indication:Non-smoker Start:11-Jul-2021 Instruction Type:Provider Instructions for Treatment How to Access Health Informa tion Online using Patient Portal and [employer] Apps Indication:Non-smoker Start:11-Jul-2021 Instruction Type:Patient Education Patient Instructions Indication:BMI 26.0-26.9,adult Start:03-Jul-2021 Instruction Type:Provider Instructions for Treatment How to Access Health Informa tion Online using Patient Portal and [employer] Apps Indication:BMI 26.0-26.9,adult Start:03-Jul-2021 Instruction Type:Patient Education How to Access Health Informa tion Online using Patient Portal and [employer] Apps Indication:Non-smoker Start:15-Dec-2020 Instruction Type:Patient Education Patient Instructions Indication:Non-smoker Start:15-Dec-2020 Instruction Type:Provider Instructions for Treatment How to Access Health Informa tion Online using Patient Portal and [employer] Apps Indication:Non-smoker Start:03-Aug-2020 Instruction Type:Patient Education Patient Instructions Indication:Non-smoker Start:03-Aug-2020 Instruction Type:Provider Instructions for Treatment How to access health informa tion online Indication:Non-smoker Start:24-Jun-2020 Instruction Type:Patient Education How to access health informa tion online - Detail Indication:Non-smoker Start:24-Jun-2020 Instruction Type:Patient Education Patient Instructions Indication:Non-smoker Start:24-Jun-2020 Instruction Type:Provider Instructions for Treatment How to access health informa tion online Indication:Non-smoker Start:14-Jul-2019 Instruction Type:Patient Education How to access health informa tion online - Detail Indication:Non-smoker Start:14-Jul-2019 Instruction Type:Patient Education Patient Instructions Indication:Non-smoker Start:14-Jul-2019 Instruction Type:Provider Instructions for Treatment How to access health informa tion online Indication:BMI 26.0-26.9,adult Start:02-Jul-2019 Instruction Type:Patient Education Patient Instructions Indication:BMI 26.0-26.9,adult Start:02-Jul-2019 Instruction Type:Provider Instructions for Treatment How to access health informa tion online Indication:Non-smoker Start:11-Jun-2019 Instruction Type:Patient Education How to access health informa tion online - Detail Indication:Non-smoker Start:11-Jun-2019 Instruction Type:Patient Education Patient Instructions Indication:Non-smoker Start:11-Jun-2019 Instruction Type:Provider Instructions for Treatment How to access health informa tion online Indication:Non-smoker Start:30-Apr-2019 Instruction Type:Patient Education How to access health informa tion online - Detail Indication:Non-smoker Start:30-Apr-2019 Instruction Type:Patient Education Patient Instructions Indication:Non-smoker Start:30-Apr-2019 Instruction Type:Provider Instructions for Treatment How to access health informa tion online Indication:Ceruminosis, right (Renamed from Excessive cerumen in ear canal, right) Start:23-Dec-2018 Instruction Type:Patient Education How to access health informa tion online - Detail Indication:Ceruminosis, right (Renamed from Excessive cerumen in ear canal, right) Start:23-Dec-2018 Instruction Type:Patient Education Patient Instructions Indication:Ceruminosis, right (Renamed from Excessive cerumen in ear canal, right) Start:23-Dec-2018 Instruction Type:Provider Instructions for Treatment How to access health informa tion online Indication:Non-smoker Start:19-Dec-2018 Instruction Type:Patient Education How to access health informa tion online - Detail Indication:Non-smoker Start:19-Dec-2018 Instruction Type:Patient Education Patient Instructions Indication:Non-smoker Start:19-Dec-2018 Instruction Type:Provider Instructions for Treatment cardiovascular counseling Indication:CAD (coronary artery disease) Start:04-Dec-2018 Instruction Type:Provider Instructions for Treatment How to access health informa tion online Indication:Non-smoker Start:04-Dec-2018 Instruction Type:Patient Education How to access health informa tion online - Detail Indication:Non-smoker Start:04-Dec-2018 Instruction Type:Patient Education Patient Instructions Indication:Non-smoker Start:04-Dec-2018 Instruction Type:Provider Instructions for Treatment How to access health informa tion online Indication:Non-smoker Start:28-Aug-2018 Instruction Type:Patient Education How to access health informa tion online - Detail Indication:Non-smoker Start:28-Aug-2018 Instruction Type:Patient Education Patient Instructions Indication:Non-smoker Start:28-Aug-2018 Instruction Type:Provider Instructions for Treatment How to access health informa tion online Indication:BMI 27.0-27.9,adult Start:12-Jun-2018 Instruction Type:Patient Education How to access health informa tion online Indication:BMI 27.0-27.9,adult Start:12-Jun-2018 Instruction Type:Patient Education How to access health informa tion online - Detail Indication:BMI 27.0-27.9,adult Start:12-Jun-2018 Instruction Type:Patient Education Patient Instructions Indication:BMI 27.0-27.9,adult Start:12-Jun-2018 Instruction Type:Provider Instructions for Treatment How to access health informa tion online Indication:Smoker Start:25-Apr-2018 Instruction Type:Patient Education How to access health informa tion online - Detail Indication:Smoker Start:25-Apr-2018 Instruction Type:Patient Education Patient Instructions Indication:Smoker Start:25-Apr-2018 Instruction Type:Provider Instructions for Treatment How to access health informa tion online Indication:Current nonsmoker Start:17-Apr-2018 Instruction Type:Patient Education How to access health informa tion online - Detail Indication:Current nonsmoker Start:17-Apr-2018 Instruction Type:Patient Education Patient Instructions Indication:Current nonsmoker Start:17-Apr-2018 Instruction Type:Provider Instructions for Treatment How to access health informa tion online Indication:Current nonsmoker Start:19-Dec-2017 Instruction Type:Patient Education How to access health informa tion online - Detail Indication:Current nonsmoker Start:19-Dec-2017 Instruction Type:Patient Education Patient Instructions Indication:Current nonsmoker Start:19-Dec-2017 Instruction Type:Provider Instructions for Treatment How to access health informa tion online Indication:Current nonsmoker Start:27-Nov-2017 Instruction Type:Patient Education How to access health informa tion online - Detail Indication:Current nonsmoker Start:27-Nov-2017 Instruction Type:Patient Education Patient Instructions Indication:Current nonsmoker Start:27-Nov-2017 Instruction Type:Provider Instructions for Treatment How to access health informa tion online Indication:BMI 28.0-28.9,adult Start:14-Nov-2017 Instruction Type:Patient Education How to access health informa tion online - Detail Indication:BMI 28.0-28.9,adult Start:14-Nov-2017 Instruction Type:Patient Education Patient Instructions Indication:Cough Start:14-Nov-2017 Instruction Type:Provider Instructions for Treatment How to access health informa tion online Indication:BMI 28.0-28.9,adult Start:05-Nov-2017 Instruction Type:Patient Education How to access health informa tion online - Detail Indication:BMI 28.0-28.9,adult Start:05-Nov-2017 Instruction Type:Patient Education Patient Instructions Indication:BMI 28.0-28.9,adult Start:05-Nov-2017 Instruction Type:Provider Instructions for Treatment How to access health informa tion online Indication:Current nonsmoker Start:27-Aug-2017 Instruction Type:Patient Education How to access health informa tion online - Detail Indication:Current nonsmoker Start:27-Aug-2017 Instruction Type:Patient Education Patient Instructions Indication:Cough Start:27-Aug-2017 Instruction Type:Provider Instructions for Treatment How to access health informa tion online Indication:BMI 28.0-28.9,adult Start:11-Oct-2016 Instruction Type:Patient Education How to access health informa tion online - Detail Indication:BMI 28.0-28.9,adult Start:11-Oct-2016 Instruction Type:Patient Education Patient Instructions Indication:BMI 28.0-28.9,adult Start:11-Oct-2016 Instruction Type:Provider Instructions for Treatment How to access health informa tion online Indication:Controlled diabetes mellitus Start:29-Dec-2015 Instruction Type:Patient Education How to access health informa tion online - Detail Indication:Controlled diabetes mellitus Start:29-Dec-2015 Instruction Type:Patient Education Patient Instructions Indication:Controlled diabetes mellitus Start:29-Dec-2015 Instruction Type:Provider Instructions for Treatment How to access health informa tion online Indication:CAD (coronary artery disease) Start:26-Sep-2015 Instruction Type:Patient Education How to access health informa tion online - Detail Indication:CAD (coronary artery disease) Start:26-Sep-2015 Instruction Type:Patient Education Patient Instructions Indication:CAD (coronary artery disease) Start:26-Sep-2015 Instruction Type:Provider Instructions for Treatment How to access health informa tion online Indication:Hypertension, essential, benign Start:23-Jun-2015 Instruction Type:Patient Education How to access health informa tion online - Detail Indication:Hypertension, essential, benign Start:23-Jun-2015 Instruction Type:Patient Education Patient Instructions Indication:Hypertension, essential, benign Start:23-Jun-2015 Instruction Type:Provider Instructions for Treatment How to access health informa tion online - Detail Indication:Anxiety Start:21-Mar-2015 Instruction Type:Patient Education Patient Instructions Indication:Anxiety Start:21-Mar-2015 Instruction Type:Provider Instructions for Treatment Patient Instructions Indication:Abnormal lung sounds Start:03-Nov-2012 Instruction Type:Provider Instructions for Treatment Patient Instructions Indication:Asthma Start:08-May-2012 Instruction Type:Provider Instructions for Treatment Patient Instructionsset up m edcial visit in 2 weeks adn come fasting bring bp diaries - Indication:Encounter for Medicare annual wellness exam Start:24-Apr-2012 Instruction Type:Provider Instructions for Treatment Patient Instructions Indication:Anxiety Start:24-Apr-2012 Instruction Type:Provider Instructions for Treatment [facility]; [facility] Work Phone: Instructions* Name Dates Details Patient Instructions Indication:Non-smoker Start:30-Jul-2022 Instruction Type:Provider Instructions for Treatment How to Access Health Informa tion Online using Patient Portal and [email or web address] Apps Indication:Non-smoker Start:30-Jul-2022 Instruction Type:Patient Education Patient Instructions Indication:BMI 26.0-26.9,adult Start:15-May-2022 Instruction Type:Provider Instructions for Treatment How to Access Health Informa tion Online using Patient Portal and [email or web address] Apps Indication:BMI 26.0-26.9,adult Start:15-May-2022 Instruction Type:Patient Education Patient Instructions Indication:Non-smoker Start:28-Dec-2021 Instruction Type:Provider Instructions for Treatment How to Access Health Informa tion Online using Patient Portal and [employer] Indication:Non-smoker Start:28-Dec-2021 Instruction Type:Patient Education Patient Instructions Indication:BMI 26.0-26.9,adult Start:15-Nov-2021 Instruction Type:Provider Instructions for Treatment How to Access Health Informa tion Online using Patient Portal and [employer] Apps Indication:Ceruminosis, bilateral (Renamed from Excessive cerumen in both ear canals) Start:15-Nov-2021 Instruction Type:Patient Education Patient Instructions Indication:Non-smoker Start:11-Jul-2021 Instruction Type:Provider Instructions for Treatment How to Access Health Informa tion Online using Patient Portal and [employer] Apps Indication:Non-smoker Start:11-Jul-2021 Instruction Type:Patient Education Patient Instructions Indication:BMI 26.0-26.9,adult Start:03-Jul-2021 Instruction Type:Provider Instructions for Treatment How to Access Health Informa tion Online using Patient Portal and [employer] Indication:BMI 26.0-26.9,adult Start:03-Jul-2021 Instruction Type:Patient Education How to Access Health Informa tion Online using Patient Portal and [employer] Apps Indication:Non-smoker Start:15-Dec-2020 Instruction Type:Patient Education Patient Instructions Indication:Non-smoker Start:15-Dec-2020 Instruction Type:Provider Instructions for Treatment How to Access Health Informa tion Online using Patient Portal and [employer] Apps Indication:Non-smoker Start:03-Aug-2020 Instruction Type:Patient Education Patient Instructions Indication:Non-smoker Start:03-Aug-2020 Instruction Type:Provider Instructions for Treatment How to access health informa tion online Indication:Non-smoker Start:24-Jun-2020 Instruction Type:Patient Education How to access health informa tion online - Detail Indication:Non-smoker Start:24-Jun-2020 Instruction Type:Patient Education Patient Instructions Indication:Non-smoker Start:24-Jun-2020 Instruction Type:Provider Instructions for Treatment How to access health informa tion online Indication:Non-smoker Start:14-Jul-2019 Instruction Type:Patient Education How to access health informa tion online - Detail Indication:Non-smoker Start:14-Jul-2019 Instruction Type:Patient Education Patient Instructions Indication:Non-smoker Start:14-Jul-2019 Instruction Type:Provider Instructions for Treatment How to access health informa tion online Indication:BMI 26.0-26.9,adult Start:02-Jul-2019 Instruction Type:Patient Education Patient Instructions Indication:BMI 26.0-26.9,adult Start:02-Jul-2019 Instruction Type:Provider Instructions for Treatment How to access health informa tion online Indication:Non-smoker Start:11-Jun-2019 Instruction Type:Patient Education How to access health informa tion online - Detail Indication:Non-smoker Start:11-Jun-2019 Instruction Type:Patient Education Patient Instructions Indication:Non-smoker Start:11-Jun-2019 Instruction Type:Provider Instructions for Treatment How to access health informa tion online Indication:Non-smoker Start:30-Apr-2019 Instruction Type:Patient Education How to access health informa tion online - Detail Indication:Non-smoker Start:30-Apr-2019 Instruction Type:Patient Education Patient Instructions Indication:Non-smoker Start:30-Apr-2019 Instruction Type:Provider Instructions for Treatment How to access health informa tion online Indication:Ceruminosis, right (Renamed from Excessive cerumen in ear canal, right) Start:23-Dec-2018 Instruction Type:Patient Education How to access health informa tion online - Detail Indication:Ceruminosis, right (Renamed from Excessive cerumen in ear canal, right) Start:23-Dec-2018 Instruction Type:Patient Education Patient Instructions Indication:Ceruminosis, right (Renamed from Excessive cerumen in ear canal, right) Start:23-Dec-2018 Instruction Type:Provider Instructions for Treatment How to access health informa tion online Indication:Non-smoker Start:19-Dec-2018 Instruction Type:Patient Education How to access health informa tion online - Detail Indication:Non-smoker Start:19-Dec-2018 Instruction Type:Patient Education Patient Instructions Indication:Non-smoker Start:19-Dec-2018 Instruction Type:Provider Instructions for Treatment cardiovascular counseling Indication:CAD (coronary artery disease) Start:04-Dec-2018 Instruction Type:Provider Instructions for Treatment How to access health informa tion online Indication:Non-smoker Start:04-Dec-2018 Instruction Type:Patient Education How to access health informa tion online - Detail Indication:Non-smoker Start:04-Dec-2018 Instruction Type:Patient Education Patient Instructions Indication:Non-smoker Start:04-Dec-2018 Instruction Type:Provider Instructions for Treatment How to access health informa tion online Indication:Non-smoker Start:28-Aug-2018 Instruction Type:Patient Education How to access health informa tion online - Detail Indication:Non-smoker Start:28-Aug-2018 Instruction Type:Patient Education Patient Instructions Indication:Non-smoker Start:28-Aug-2018 Instruction Type:Provider Instructions for Treatment How to access health informa tion online Indication:BMI 27.0-27.9,adult Start:12-Jun-2018 Instruction Type:Patient Education How to access health informa tion online Indication:BMI 27.0-27.9,adult Start:12-Jun-2018 Instruction Type:Patient Education How to access health informa tion online - Detail Indication:BMI 27.0-27.9,adult Start:12-Jun-2018 Instruction Type:Patient Education Patient Instructions Indication:BMI 27.0-27.9,adult Start:12-Jun-2018 Instruction Type:Provider Instructions for Treatment How to access health informa tion online Indication:Smoker Start:25-Apr-2018 Instruction Type:Patient Education How to access health informa tion online - Detail Indication:Smoker Start:25-Apr-2018 Instruction Type:Patient Education Patient Instructions Indication:Smoker Start:25-Apr-2018 Instruction Type:Provider Instructions for Treatment How to access health informa tion online Indication:Current nonsmoker Start:17-Apr-2018 Instruction Type:Patient Education How to access health informa tion online - Detail Indication:Current nonsmoker Start:17-Apr-2018 Instruction Type:Patient Education Patient Instructions Indication:Current nonsmoker Start:17-Apr-2018 Instruction Type:Provider Instructions for Treatment How to access health informa tion online Indication:Current nonsmoker Start:19-Dec-2017 Instruction Type:Patient Education How to access health informa tion online - Detail Indication:Current nonsmoker Start:19-Dec-2017 Instruction Type:Patient Education Patient Instructions Indication:Current nonsmoker Start:19-Dec-2017 Instruction Type:Provider Instructions for Treatment How to access health informa tion online Indication:Current nonsmoker Start:27-Nov-2017 Instruction Type:Patient Education How to access health informa tion online - Detail Indication:Current nonsmoker Start:27-Nov-2017 Instruction Type:Patient Education Patient Instructions Indication:Current nonsmoker Start:27-Nov-2017 Instruction Type:Provider Instructions for Treatment How to access health informa tion online Indication:BMI 28.0-28.9,adult Start:14-Nov-2017 Instruction Type:Patient Education How to access health informa tion online - Detail Indication:BMI 28.0-28.9,adult Start:14-Nov-2017 Instruction Type:Patient Education Patient Instructions Indication:Cough Start:14-Nov-2017 Instruction Type:Provider Instructions for Treatment How to access health informa tion online Indication:BMI 28.0-28.9,adult Start:05-Nov-2017 Instruction Type:Patient Education How to access health informa tion online - Detail Indication:BMI 28.0-28.9,adult Start:05-Nov-2017 Instruction Type:Patient Education Patient Instructions Indication:BMI 28.0-28.9,adult Start:05-Nov-2017 Instruction Type:Provider Instructions for Treatment How to access health informa tion online Indication:Current nonsmoker Start:27-Aug-2017 Instruction Type:Patient Education How to access health informa tion online - Detail Indication:Current nonsmoker Start:27-Aug-2017 Instruction Type:Patient Education Patient Instructions Indication:Cough Start:27-Aug-2017 Instruction Type:Provider Instructions for Treatment How to access health informa tion online Indication:BMI 28.0-28.9,adult Start:11-Oct-2016 Instruction Type:Patient Education How to access health informa tion online - Detail Indication:BMI 28.0-28.9,adult Start:11-Oct-2016 Instruction Type:Patient Education Patient Instructions Indication:BMI 28.0-28.9,adult Start:11-Oct-2016 Instruction Type:Provider Instructions for Treatment How to access health informa tion online Indication:Controlled diabetes mellitus Start:29-Dec-2015 Instruction Type:Patient Education How to access health informa tion online - Detail Indication:Controlled diabetes mellitus Start:29-Dec-2015 Instruction Type:Patient Education Patient Instructions Indication:Controlled diabetes mellitus Start:29-Dec-2015 Instruction Type:Provider Instructions for Treatment How to access health informa tion online Indication:CAD (coronary artery disease) Start:26-Sep-2015 Instruction Type:Patient Education How to access health informa tion online - Detail Indication:CAD (coronary artery disease) Start:26-Sep-2015 Instruction Type:Patient Education Patient Instructions Indication:CAD (coronary artery disease) Start:26-Sep-2015 Instruction Type:Provider Instructions for Treatment How to access health informa tion online Indication:Hypertension, essential, benign Start:23-Jun-2015 Instruction Type:Patient Education How to access health informa tion online - Detail Indication:Hypertension, essential, benign Start:23-Jun-2015 Instruction Type:Patient Education Patient Instructions Indication:Hypertension, essential, benign Start:23-Jun-2015 Instruction Type:Provider Instructions for Treatment How to access health informa tion online - Detail Indication:Anxiety Start:21-Mar-2015 Instruction Type:Patient Education Patient Instructions Indication:Anxiety Start:21-Mar-2015 Instruction Type:Provider Instructions for Treatment Patient Instructions Indication:Abnormal lung sounds Start:03-Nov-2012 Instruction Type:Provider Instructions for Treatment Patient Instructions Indication:Asthma Start:08-May-2012 Instruction Type:Provider Instructions for Treatment Patient Instructionsset up m edcial visit in 2 weeks adn come fasting bring bp diaries - Indication:Encounter for Medicare annual wellness exam Start:24-Apr-2012 Instruction Type:Provider Instructions for Treatment Patient Instructions Indication:Anxiety Start:24-Apr-2012 Instruction Type:Provider Instructions for Treatment [facility]; [facility] Work Phone: Instructions* Name Dates Details cardiovascular counseling Indication:CAD (coronary artery disease) Start:15-Nov-2022 Instruction Type:Provider Instructions for Treatment Patient Instructions Indication:BMI 26.0-26.9,adult Start:15-Nov-2022 Instruction Type:Provider Instructions for Treatment How to Access Health Informa tion Online using Patient Portal and [employer] Apps Indication:BMI 26.0-26.9,adult Start:15-Nov-2022 Instruction Type:Patient Education Patient Instructions Indication:Non-smoker Start:30-Jul-2022 Instruction Type:Provider Instructions for Treatment How to Access Health Informa tion Online using Patient Portal and [employer] Apps Indication:Non-smoker Start:30-Jul-2022 Instruction Type:Patient Education Patient Instructions Indication:BMI 26.0-26.9,adult Start:15-May-2022 Instruction Type:Provider Instructions for Treatment How to Access Health Informa tion Online using Patient Portal and [employer] Apps Indication:BMI 26.0-26.9,adult Start:15-May-2022 Instruction Type:Patient Education Patient Instructions Indication:Non-smoker Start:28-Dec-2021 Instruction Type:Provider Instructions for Treatment How to Access Health Informa tion Online using Patient Portal and [employer] Apps Indication:Non-smoker Start:28-Dec-2021 Instruction Type:Patient Education Patient Instructions Indication:BMI 26.0-26.9,adult Start:15-Nov-2021 Instruction Type:Provider Instructions for Treatment How to Access Health Informa tion Online using Patient Portal and [employer] Apps Indication:Ceruminosis, bilateral (Renamed from Excessive cerumen in both ear canals) Start:15-Nov-2021 Instruction Type:Patient Education Patient Instructions Indication:Non-smoker Start:11-Jul-2021 Instruction Type:Provider Instructions for Treatment How to Access Health Informa tion Online using Patient Portal and [employer] Apps Indication:Non-smoker Start:11-Jul-2021 Instruction Type:Patient Education Patient Instructions Indication:BMI 26.0-26.9,adult Start:03-Jul-2021 Instruction Type:Provider Instructions for Treatment How to Access Health Informa tion Online using Patient Portal and [employer] Apps Indication:BMI 26.0-26.9,adult Start:03-Jul-2021 Instruction Type:Patient Education How to Access Health Informa tion Online using Patient Portal and [employer] Apps Indication:Non-smoker Start:15-Dec-2020 Instruction Type:Patient Education Patient Instructions Indication:Non-smoker Start:15-Dec-2020 Instruction Type:Provider Instructions for Treatment How to Access Health Informa tion Online using Patient Portal and [employer] Apps Indication:Non-smoker Start:03-Aug-2020 Instruction Type:Patient Education Patient Instructions Indication:Non-smoker Start:03-Aug-2020 Instruction Type:Provider Instructions for Treatment How to access health informa tion online Indication:Non-smoker Start:24-Jun-2020 Instruction Type:Patient Education How to access health informa tion online - Detail Indication:Non-smoker Start:24-Jun-2020 Instruction Type:Patient Education Patient Instructions Indication:Non-smoker Start:24-Jun-2020 Instruction Type:Provider Instructions for Treatment How to access health informa tion online Indication:Non-smoker Start:14-Jul-2019 Instruction Type:Patient Education How to access health informa tion online - Detail Indication:Non-smoker Start:14-Jul-2019 Instruction Type:Patient Education Patient Instructions Indication:Non-smoker Start:14-Jul-2019 Instruction Type:Provider Instructions for Treatment How to access health informa tion online Indication:BMI 26.0-26.9,adult Start:02-Jul-2019 Instruction Type:Patient Education Patient Instructions Indication:BMI 26.0-26.9,adult Start:02-Jul-2019 Instruction Type:Provider Instructions for Treatment How to access health informa tion online Indication:Non-smoker Start:11-Jun-2019 Instruction Type:Patient Education How to access health informa tion online - Detail Indication:Non-smoker Start:11-Jun-2019 Instruction Type:Patient Education Patient Instructions Indication:Non-smoker Start:11-Jun-2019 Instruction Type:Provider Instructions for Treatment How to access health informa tion online Indication:Non-smoker Start:30-Apr-2019 Instruction Type:Patient Education How to access health informa tion online - Detail Indication:Non-smoker Start:30-Apr-2019 Instruction Type:Patient Education Patient Instructions Indication:Non-smoker Start:30-Apr-2019 Instruction Type:Provider Instructions for Treatment How to access health informa tion online Indication:Ceruminosis, right (Renamed from Excessive cerumen in ear canal, right) Start:23-Dec-2018 Instruction Type:Patient Education How to access health informa tion online - Detail Indication:Ceruminosis, right (Renamed from Excessive cerumen in ear canal, right) Start:23-Dec-2018 Instruction Type:Patient Education Patient Instructions Indication:Ceruminosis, right (Renamed from Excessive cerumen in ear canal, right) Start:23-Dec-2018 Instruction Type:Provider Instructions for Treatment How to access health informa tion online Indication:Non-smoker Start:19-Dec-2018 Instruction Type:Patient Education How to access health informa tion online - Detail Indication:Non-smoker Start:19-Dec-2018 Instruction Type:Patient Education Patient Instructions Indication:Non-smoker Start:19-Dec-2018 Instruction Type:Provider Instructions for Treatment cardiovascular counseling Indication:CAD (coronary artery disease) Start:04-Dec-2018 Instruction Type:Provider Instructions for Treatment How to access health informa tion online Indication:Non-smoker Start:04-Dec-2018 Instruction Type:Patient Education How to access health informa tion online - Detail Indication:Non-smoker Start:04-Dec-2018 Instruction Type:Patient Education Patient Instructions Indication:Non-smoker Start:04-Dec-2018 Instruction Type:Provider Instructions for Treatment How to access health informa tion online Indication:Non-smoker Start:28-Aug-2018 Instruction Type:Patient Education How to access health informa tion online - Detail Indication:Non-smoker Start:28-Aug-2018 Instruction Type:Patient Education Patient Instructions Indication:Non-smoker Start:28-Aug-2018 Instruction Type:Provider Instructions for Treatment How to access health informa tion online Indication:BMI 27.0-27.9,adult Start:12-Jun-2018 Instruction Type:Patient Education How to access health informa tion online Indication:BMI 27.0-27.9,adult Start:12-Jun-2018 Instruction Type:Patient Education How to access health informa tion online - Detail Indication:BMI 27.0-27.9,adult Start:12-Jun-2018 Instruction Type:Patient Education Patient Instructions Indication:BMI 27.0-27.9,adult Start:12-Jun-2018 Instruction Type:Provider Instructions for Treatment How to access health informa tion online Indication:Smoker Start:25-Apr-2018 Instruction Type:Patient Education How to access health informa tion online - Detail Indication:Smoker Start:25-Apr-2018 Instruction Type:Patient Education Patient Instructions Indication:Smoker Start:25-Apr-2018 Instruction Type:Provider Instructions for Treatment How to access health informa tion online Indication:Current nonsmoker Start:17-Apr-2018 Instruction Type:Patient Education How to access health informa tion online - Detail Indication:Current nonsmoker Start:17-Apr-2018 Instruction Type:Patient Education Patient Instructions Indication:Current nonsmoker Start:17-Apr-2018 Instruction Type:Provider Instructions for Treatment How to access health informa tion online Indication:Current nonsmoker Start:19-Dec-2017 Instruction Type:Patient Education How to access health informa tion online - Detail Indication:Current nonsmoker Start:19-Dec-2017 Instruction Type:Patient Education Patient Instructions Indication:Current nonsmoker Start:19-Dec-2017 Instruction Type:Provider Instructions for Treatment How to access health informa tion online Indication:Current nonsmoker Start:27-Nov-2017 Instruction Type:Patient Education How to access health informa tion online - Detail Indication:Current nonsmoker Start:27-Nov-2017 Instruction Type:Patient Education Patient Instructions Indication:Current nonsmoker Start:27-Nov-2017 Instruction Type:Provider Instructions for Treatment How to access health informa tion online Indication:BMI 28.0-28.9,adult Start:14-Nov-2017 Instruction Type:Patient Education How to access health informa tion online - Detail Indication:BMI 28.0-28.9,adult Start:14-Nov-2017 Instruction Type:Patient Education Patient Instructions Indication:Cough Start:14-Nov-2017 Instruction Type:Provider Instructions for Treatment How to access health informa tion online Indication:BMI 28.0-28.9,adult Start:05-Nov-2017 Instruction Type:Patient Education How to access health informa tion online - Detail Indication:BMI 28.0-28.9,adult Start:05-Nov-2017 Instruction Type:Patient Education Patient Instructions Indication:BMI 28.0-28.9,adult Start:05-Nov-2017 Instruction Type:Provider Instructions for Treatment How to access health informa tion online Indication:Current nonsmoker Start:27-Aug-2017 Instruction Type:Patient Education How to access health informa tion online - Detail Indication:Current nonsmoker Start:27-Aug-2017 Instruction Type:Patient Education Patient Instructions Indication:Cough Start:27-Aug-2017 Instruction Type:Provider Instructions for Treatment How to access health informa tion online Indication:BMI 28.0-28.9,adult Start:11-Oct-2016 Instruction Type:Patient Education How to access health informa tion online - Detail Indication:BMI 28.0-28.9,adult Start:11-Oct-2016 Instruction Type:Patient Education Patient Instructions Indication:BMI 28.0-28.9,adult Start:11-Oct-2016 Instruction Type:Provider Instructions for Treatment How to access health informa tion online Indication:Controlled diabetes mellitus Start:29-Dec-2015 Instruction Type:Patient Education How to access health informa tion online - Detail Indication:Controlled diabetes mellitus Start:29-Dec-2015 Instruction Type:Patient Education Patient Instructions Indication:Controlled diabetes mellitus Start:29-Dec-2015 Instruction Type:Provider Instructions for Treatment How to access health informa tion online Indication:CAD (coronary artery disease) Start:26-Sep-2015 Instruction Type:Patient Education How to access health informa tion online - Detail Indication:CAD (coronary artery disease) Start:26-Sep-2015 Instruction Type:Patient Education Patient Instructions Indication:CAD (coronary artery disease) Start:26-Sep-2015 Instruction Type:Provider Instructions for Treatment How to access health informa tion online Indication:Hypertension, essential, benign Start:23-Jun-2015 Instruction Type:Patient Education How to access health informa tion online - Detail Indication:Hypertension, essential, benign Start:23-Jun-2015 Instruction Type:Patient Education Patient Instructions Indication:Hypertension, essential, benign Start:23-Jun-2015 Instruction Type:Provider Instructions for Treatment How to access health informa tion online - Detail Indication:Anxiety Start:21-Mar-2015 Instruction Type:Patient Education Patient Instructions Indication:Anxiety Start:21-Mar-2015 Instruction Type:Provider Instructions for Treatment Patient Instructions Indication:Abnormal lung sounds Start:03-Nov-2012 Instruction Type:Provider Instructions for Treatment Patient Instructions Indication:Asthma Start:08-May-2012 Instruction Type:Provider Instructions for Treatment Patient Instructionsset up m edcial visit in 2 weeks adn come fasting bring bp diaries - Indication:Encounter for Medicare annual wellness exam Start:24-Apr-2012 Instruction Type:Provider Instructions for Treatment Patient Instructions Indication:Anxiety Start:24-Apr-2012 Instruction Type:Provider Instructions for Treatment [facility]; [facility] Work Phone: Instructions* Name Dates Details cardiovascular counseling Indication:CAD (coronary artery disease) Start:15-Nov-2022 Instruction Type:Provider Instructions for Treatment Patient Instructions Indication:BMI 26.0-26.9,adult Start:15-Nov-2022 Instruction Type:Provider Instructions for Treatment How to Access Health Informa tion Online using Patient Portal and [employer] Indication:BMI 26.0-26.9,adult Start:15-Nov-2022 Instruction Type:Patient Education Patient Instructions Indication:Non-smoker Start:30-Jul-2022 Instruction Type:Provider Instructions for Treatment How to Access Health Informa tion Online using Patient Portal and [employer] Indication:Non-smoker Start:30-Jul-2022 Instruction Type:Patient Education Patient Instructions Indication:BMI 26.0-26.9,adult Start:15-May-2022 Instruction Type:Provider Instructions for Treatment How to Access Health Informa tion Online using Patient Portal and [employer] Indication:BMI 26.0-26.9,adult Start:15-May-2022 Instruction Type:Patient Education Patient Instructions Indication:Non-smoker Start:28-Dec-2021 Instruction Type:Provider Instructions for Treatment How to Access Health Informa tion Online using Patient Portal and [employer] Indication:Non-smoker Start:28-Dec-2021 Instruction Type:Patient Education Patient Instructions Indication:BMI 26.0-26.9,adult Start:15-Nov-2021 Instruction Type:Provider Instructions for Treatment How to Access Health Informa tion Online using Patient Portal and [employer] Apps Indication:Ceruminosis, bilateral (Renamed from Excessive cerumen in both ear canals) Start:15-Nov-2021 Instruction Type:Patient Education Patient Instructions Indication:Non-smoker Start:11-Jul-2021 Instruction Type:Provider Instructions for Treatment How to Access Health Informa tion Online using Patient Portal and [employer] Apps Indication:Non-smoker Start:11-Jul-2021 Instruction Type:Patient Education Patient Instructions Indication:BMI 26.0-26.9,adult Start:03-Jul-2021 Instruction Type:Provider Instructions for Treatment How to Access Health Informa tion Online using Patient Portal and [employer] Indication:BMI 26.0-26.9,adult Start:03-Jul-2021 Instruction Type:Patient Education How to Access Health Informa tion Online using Patient Portal and [employer] Apps Indication:Non-smoker Start:15-Dec-2020 Instruction Type:Patient Education Patient Instructions Indication:Non-smoker Start:15-Dec-2020 Instruction Type:Provider Instructions for Treatment How to Access Health Informa tion Online using Patient Portal and [employer] Apps Indication:Non-smoker Start:03-Aug-2020 Instruction Type:Patient Education Patient Instructions Indication:Non-smoker Start:03-Aug-2020 Instruction Type:Provider Instructions for Treatment How to access health informa tion online Indication:Non-smoker Start:24-Jun-2020 Instruction Type:Patient Education How to access health informa tion online - Detail Indication:Non-smoker Start:24-Jun-2020 Instruction Type:Patient Education Patient Instructions Indication:Non-smoker Start:24-Jun-2020 Instruction Type:Provider Instructions for Treatment How to access health informa tion online Indication:Non-smoker Start:14-Jul-2019 Instruction Type:Patient Education How to access health informa tion online - Detail Indication:Non-smoker Start:14-Jul-2019 Instruction Type:Patient Education Patient Instructions Indication:Non-smoker Start:14-Jul-2019 Instruction Type:Provider Instructions for Treatment How to access health informa tion online Indication:BMI 26.0-26.9,adult Start:02-Jul-2019 Instruction Type:Patient Education Patient Instructions Indication:BMI 26.0-26.9,adult Start:02-Jul-2019 Instruction Type:Provider Instructions for Treatment How to access health informa tion online Indication:Non-smoker Start:11-Jun-2019 Instruction Type:Patient Education How to access health informa tion online - Detail Indication:Non-smoker Start:11-Jun-2019 Instruction Type:Patient Education Patient Instructions Indication:Non-smoker Start:11-Jun-2019 Instruction Type:Provider Instructions for Treatment How to access health informa tion online Indication:Non-smoker Start:30-Apr-2019 Instruction Type:Patient Education How to access health informa tion online - Detail Indication:Non-smoker Start:30-Apr-2019 Instruction Type:Patient Education Patient Instructions Indication:Non-smoker Start:30-Apr-2019 Instruction Type:Provider Instructions for Treatment How to access health informa tion online Indication:Ceruminosis, right (Renamed from Excessive cerumen in ear canal, right) Start:23-Dec-2018 Instruction Type:Patient Education How to access health informa tion online - Detail Indication:Ceruminosis, right (Renamed from Excessive cerumen in ear canal, right) Start:23-Dec-2018 Instruction Type:Patient Education Patient Instructions Indication:Ceruminosis, right (Renamed from Excessive cerumen in ear canal, right) Start:23-Dec-2018 Instruction Type:Provider Instructions for Treatment How to access health informa tion online Indication:Non-smoker Start:19-Dec-2018 Instruction Type:Patient Education How to access health informa tion online - Detail Indication:Non-smoker Start:19-Dec-2018 Instruction Type:Patient Education Patient Instructions Indication:Non-smoker Start:19-Dec-2018 Instruction Type:Provider Instructions for Treatment cardiovascular counseling Indication:CAD (coronary artery disease) Start:04-Dec-2018 Instruction Type:Provider Instructions for Treatment How to access health informa tion online Indication:Non-smoker Start:04-Dec-2018 Instruction Type:Patient Education How to access health informa tion online - Detail Indication:Non-smoker Start:04-Dec-2018 Instruction Type:Patient Education Patient Instructions Indication:Non-smoker Start:04-Dec-2018 Instruction Type:Provider Instructions for Treatment How to access health informa tion online Indication:Non-smoker Start:28-Aug-2018 Instruction Type:Patient Education How to access health informa tion online - Detail Indication:Non-smoker Start:28-Aug-2018 Instruction Type:Patient Education Patient Instructions Indication:Non-smoker Start:28-Aug-2018 Instruction Type:Provider Instructions for Treatment How to access health informa tion online Indication:BMI 27.0-27.9,adult Start:12-Jun-2018 Instruction Type:Patient Education How to access health informa tion online Indication:BMI 27.0-27.9,adult Start:12-Jun-2018 Instruction Type:Patient Education How to access health informa tion online - Detail Indication:BMI 27.0-27.9,adult Start:12-Jun-2018 Instruction Type:Patient Education Patient Instructions Indication:BMI 27.0-27.9,adult Start:12-Jun-2018 Instruction Type:Provider Instructions for Treatment How to access health informa tion online Indication:Smoker Start:25-Apr-2018 Instruction Type:Patient Education How to access health informa tion online - Detail Indication:Smoker Start:25-Apr-2018 Instruction Type:Patient Education Patient Instructions Indication:Smoker Start:25-Apr-2018 Instruction Type:Provider Instructions for Treatment How to access health informa tion online Indication:Current nonsmoker Start:17-Apr-2018 Instruction Type:Patient Education How to access health informa tion online - Detail Indication:Current nonsmoker Start:17-Apr-2018 Instruction Type:Patient Education Patient Instructions Indication:Current nonsmoker Start:17-Apr-2018 Instruction Type:Provider Instructions for Treatment How to access health informa tion online Indication:Current nonsmoker Start:19-Dec-2017 Instruction Type:Patient Education How to access health informa tion online - Detail Indication:Current nonsmoker Start:19-Dec-2017 Instruction Type:Patient Education Patient Instructions Indication:Current nonsmoker Start:19-Dec-2017 Instruction Type:Provider Instructions for Treatment How to access health informa tion online Indication:Current nonsmoker Start:27-Nov-2017 Instruction Type:Patient Education How to access health informa tion online - Detail Indication:Current nonsmoker Start:27-Nov-2017 Instruction Type:Patient Education Patient Instructions Indication:Current nonsmoker Start:27-Nov-2017 Instruction Type:Provider Instructions for Treatment How to access health informa tion online Indication:BMI 28.0-28.9,adult Start:14-Nov-2017 Instruction Type:Patient Education How to access health informa tion online - Detail Indication:BMI 28.0-28.9,adult Start:14-Nov-2017 Instruction Type:Patient Education Patient Instructions Indication:Cough Start:14-Nov-2017 Instruction Type:Provider Instructions for Treatment How to access health informa tion online Indication:BMI 28.0-28.9,adult Start:05-Nov-2017 Instruction Type:Patient Education How to access health informa tion online - Detail Indication:BMI 28.0-28.9,adult Start:05-Nov-2017 Instruction Type:Patient Education Patient Instructions Indication:BMI 28.0-28.9,adult Start:05-Nov-2017 Instruction Type:Provider Instructions for Treatment How to access health informa tion online Indication:Current nonsmoker Start:27-Aug-2017 Instruction Type:Patient Education How to access health informa tion online - Detail Indication:Current nonsmoker Start:27-Aug-2017 Instruction Type:Patient Education Patient Instructions Indication:Cough Start:27-Aug-2017 Instruction Type:Provider Instructions for Treatment How to access health informa tion online Indication:BMI 28.0-28.9,adult Start:11-Oct-2016 Instruction Type:Patient Education How to access health informa tion online - Detail Indication:BMI 28.0-28.9,adult Start:11-Oct-2016 Instruction Type:Patient Education Patient Instructions Indication:BMI 28.0-28.9,adult Start:11-Oct-2016 Instruction Type:Provider Instructions for Treatment How to access health informa tion online Indication:Controlled diabetes mellitus Start:29-Dec-2015 Instruction Type:Patient Education How to access health informa tion online - Detail Indication:Controlled diabetes mellitus Start:29-Dec-2015 Instruction Type:Patient Education Patient Instructions Indication:Controlled diabetes mellitus Start:29-Dec-2015 Instruction Type:Provider Instructions for Treatment How to access health informa tion online Indication:CAD (coronary artery disease) Start:26-Sep-2015 Instruction Type:Patient Education How to access health informa tion online - Detail Indication:CAD (coronary artery disease) Start:26-Sep-2015 Instruction Type:Patient Education Patient Instructions Indication:CAD (coronary artery disease) Start:26-Sep-2015 Instruction Type:Provider Instructions for Treatment How to access health informa tion online Indication:Hypertension, essential, benign Start:23-Jun-2015 Instruction Type:Patient Education How to access health informa tion online - Detail Indication:Hypertension, essential, benign Start:23-Jun-2015 Instruction Type:Patient Education Patient Instructions Indication:Hypertension, essential, benign Start:23-Jun-2015 Instruction Type:Provider Instructions for Treatment How to access health informa tion online - Detail Indication:Anxiety Start:21-Mar-2015 Instruction Type:Patient Education Patient Instructions Indication:Anxiety Start:21-Mar-2015 Instruction Type:Provider Instructions for Treatment Patient Instructions Indication:Abnormal lung sounds Start:03-Nov-2012 Instruction Type:Provider Instructions for Treatment Patient Instructions Indication:Asthma Start:08-May-2012 Instruction Type:Provider Instructions for Treatment Patient Instructionsset up m edcial visit in 2 weeks adn come fasting bring bp diaries - Indication:Encounter for Medicare annual wellness exam Start:24-Apr-2012 Instruction Type:Provider Instructions for Treatment Patient Instructions Indication:Anxiety Start:24-Apr-2012 Instruction Type:Provider Instructions for Treatment [facility] Work Phone: Instructions* Name Dates Details cardiovascular counseling Indication:CAD (coronary artery disease) Start:15-Nov-2022 Instruction Type:Provider Instructions for Treatment Patient Instructions Indication:BMI 26.0-26.9,adult Start:15-Nov-2022 Instruction Type:Provider Instructions for Treatment How to Access Health Informa tion Online using Patient Portal and [employer] Indication:BMI 26.0-26.9,adult Start:15-Nov-2022 Instruction Type:Patient Education Patient Instructions Indication:Non-smoker Start:30-Jul-2022 Instruction Type:Provider Instructions for Treatment How to Access Health Informa tion Online using Patient Portal and [employer] Indication:Non-smoker Start:30-Jul-2022 Instruction Type:Patient Education Patient Instructions Indication:BMI 26.0-26.9,adult Start:15-May-2022 Instruction Type:Provider Instructions for Treatment How to Access Health Informa tion Online using Patient Portal and [employer] Indication:BMI 26.0-26.9,adult Start:15-May-2022 Instruction Type:Patient Education Patient Instructions Indication:Non-smoker Start:28-Dec-2021 Instruction Type:Provider Instructions for Treatment How to Access Health Informa tion Online using Patient Portal and [employer] Indication:Non-smoker Start:28-Dec-2021 Instruction Type:Patient Education Patient Instructions Indication:BMI 26.0-26.9,adult Start:15-Nov-2021 Instruction Type:Provider Instructions for Treatment How to Access Health Informa tion Online using Patient Portal and [employer] Apps Indication:Ceruminosis, bilateral (Renamed from Excessive cerumen in both ear canals) Start:15-Nov-2021 Instruction Type:Patient Education Patient Instructions Indication:Non-smoker Start:11-Jul-2021 Instruction Type:Provider Instructions for Treatment How to Access Health Informa tion Online using Patient Portal and [employer] Apps Indication:Non-smoker Start:11-Jul-2021 Instruction Type:Patient Education Patient Instructions Indication:BMI 26.0-26.9,adult Start:03-Jul-2021 Instruction Type:Provider Instructions for Treatment How to Access Health Informa tion Online using Patient Portal and [employer] Apps Indication:BMI 26.0-26.9,adult Start:03-Jul-2021 Instruction Type:Patient Education How to Access Health Informa tion Online using Patient Portal and [email or web address] Apps Indication:Non-smoker Start:15-Dec-2020 Instruction Type:Patient Education Patient Instructions Indication:Non-smoker Start:15-Dec-2020 Instruction Type:Provider Instructions for Treatment How to Access Health Informa tion Online using Patient Portal and [employer] Apps Indication:Non-smoker Start:03-Aug-2020 Instruction Type:Patient Education Patient Instructions Indication:Non-smoker Start:03-Aug-2020 Instruction Type:Provider Instructions for Treatment How to access health informa tion online Indication:Non-smoker Start:24-Jun-2020 Instruction Type:Patient Education How to access health informa tion online - Detail Indication:Non-smoker Start:24-Jun-2020 Instruction Type:Patient Education Patient Instructions Indication:Non-smoker Start:24-Jun-2020 Instruction Type:Provider Instructions for Treatment How to access health informa tion online Indication:Non-smoker Start:14-Jul-2019 Instruction Type:Patient Education How to access health informa tion online - Detail Indication:Non-smoker Start:14-Jul-2019 Instruction Type:Patient Education Patient Instructions Indication:Non-smoker Start:14-Jul-2019 Instruction Type:Provider Instructions for Treatment How to access health informa tion online Indication:BMI 26.0-26.9,adult Start:02-Jul-2019 Instruction Type:Patient Education Patient Instructions Indication:BMI 26.0-26.9,adult Start:02-Jul-2019 Instruction Type:Provider Instructions for Treatment How to access health informa tion online Indication:Non-smoker Start:11-Jun-2019 Instruction Type:Patient Education How to access health informa tion online - Detail Indication:Non-smoker Start:11-Jun-2019 Instruction Type:Patient Education Patient Instructions Indication:Non-smoker Start:11-Jun-2019 Instruction Type:Provider Instructions for Treatment How to access health informa tion online Indication:Non-smoker Start:30-Apr-2019 Instruction Type:Patient Education How to access health informa tion online - Detail Indication:Non-smoker Start:30-Apr-2019 Instruction Type:Patient Education Patient Instructions Indication:Non-smoker Start:30-Apr-2019 Instruction Type:Provider Instructions for Treatment How to access health informa tion online Indication:Ceruminosis, right (Renamed from Excessive cerumen in ear canal, right) Start:23-Dec-2018 Instruction Type:Patient Education How to access health informa tion online - Detail Indication:Ceruminosis, right (Renamed from Excessive cerumen in ear canal, right) Start:23-Dec-2018 Instruction Type:Patient Education Patient Instructions Indication:Ceruminosis, right (Renamed from Excessive cerumen in ear canal, right) Start:23-Dec-2018 Instruction Type:Provider Instructions for Treatment How to access health informa tion online Indication:Non-smoker Start:19-Dec-2018 Instruction Type:Patient Education How to access health informa tion online - Detail Indication:Non-smoker Start:19-Dec-2018 Instruction Type:Patient Education Patient Instructions Indication:Non-smoker Start:19-Dec-2018 Instruction Type:Provider Instructions for Treatment cardiovascular counseling Indication:CAD (coronary artery disease) Start:04-Dec-2018 Instruction Type:Provider Instructions for Treatment How to access health informa tion online Indication:Non-smoker Start:04-Dec-2018 Instruction Type:Patient Education How to access health informa tion online - Detail Indication:Non-smoker Start:04-Dec-2018 Instruction Type:Patient Education Patient Instructions Indication:Non-smoker Start:04-Dec-2018 Instruction Type:Provider Instructions for Treatment How to access health informa tion online Indication:Non-smoker Start:28-Aug-2018 Instruction Type:Patient Education How to access health informa tion online - Detail Indication:Non-smoker Start:28-Aug-2018 Instruction Type:Patient Education Patient Instructions Indication:Non-smoker Start:28-Aug-2018 Instruction Type:Provider Instructions for Treatment How to access health informa tion online Indication:BMI 27.0-27.9,adult Start:12-Jun-2018 Instruction Type:Patient Education How to access health informa tion online Indication:BMI 27.0-27.9,adult Start:12-Jun-2018 Instruction Type:Patient Education How to access health informa tion online - Detail Indication:BMI 27.0-27.9,adult Start:12-Jun-2018 Instruction Type:Patient Education Patient Instructions Indication:BMI 27.0-27.9,adult Start:12-Jun-2018 Instruction Type:Provider Instructions for Treatment How to access health informa tion online Indication:Smoker Start:25-Apr-2018 Instruction Type:Patient Education How to access health informa tion online - Detail Indication:Smoker Start:25-Apr-2018 Instruction Type:Patient Education Patient Instructions Indication:Smoker Start:25-Apr-2018 Instruction Type:Provider Instructions for Treatment How to access health informa tion online Indication:Current nonsmoker Start:17-Apr-2018 Instruction Type:Patient Education How to access health informa tion online - Detail Indication:Current nonsmoker Start:17-Apr-2018 Instruction Type:Patient Education Patient Instructions Indication:Current nonsmoker Start:17-Apr-2018 Instruction Type:Provider Instructions for Treatment How to access health informa tion online Indication:Current nonsmoker Start:19-Dec-2017 Instruction Type:Patient Education How to access health informa tion online - Detail Indication:Current nonsmoker Start:19-Dec-2017 Instruction Type:Patient Education Patient Instructions Indication:Current nonsmoker Start:19-Dec-2017 Instruction Type:Provider Instructions for Treatment How to access health informa tion online Indication:Current nonsmoker Start:27-Nov-2017 Instruction Type:Patient Education How to access health informa tion online - Detail Indication:Current nonsmoker Start:27-Nov-2017 Instruction Type:Patient Education Patient Instructions Indication:Current nonsmoker Start:27-Nov-2017 Instruction Type:Provider Instructions for Treatment How to access health informa tion online Indication:BMI 28.0-28.9,adult Start:14-Nov-2017 Instruction Type:Patient Education How to access health informa tion online - Detail Indication:BMI 28.0-28.9,adult Start:14-Nov-2017 Instruction Type:Patient Education Patient Instructions Indication:Cough Start:14-Nov-2017 Instruction Type:Provider Instructions for Treatment How to access health informa tion online Indication:BMI 28.0-28.9,adult Start:05-Nov-2017 Instruction Type:Patient Education How to access health informa tion online - Detail Indication:BMI 28.0-28.9,adult Start:05-Nov-2017 Instruction Type:Patient Education Patient Instructions Indication:BMI 28.0-28.9,adult Start:05-Nov-2017 Instruction Type:Provider Instructions for Treatment How to access health informa tion online Indication:Current nonsmoker Start:27-Aug-2017 Instruction Type:Patient Education How to access health informa tion online - Detail Indication:Current nonsmoker Start:27-Aug-2017 Instruction Type:Patient Education Patient Instructions Indication:Cough Start:27-Aug-2017 Instruction Type:Provider Instructions for Treatment How to access health informa tion online Indication:BMI 28.0-28.9,adult Start:11-Oct-2016 Instruction Type:Patient Education How to access health informa tion online - Detail Indication:BMI 28.0-28.9,adult Start:11-Oct-2016 Instruction Type:Patient Education Patient Instructions Indication:BMI 28.0-28.9,adult Start:11-Oct-2016 Instruction Type:Provider Instructions for Treatment How to access health informa tion online Indication:Controlled diabetes mellitus Start:29-Dec-2015 Instruction Type:Patient Education How to access health informa tion online - Detail Indication:Controlled diabetes mellitus Start:29-Dec-2015 Instruction Type:Patient Education Patient Instructions Indication:Controlled diabetes mellitus Start:29-Dec-2015 Instruction Type:Provider Instructions for Treatment How to access health informa tion online Indication:CAD (coronary artery disease) Start:26-Sep-2015 Instruction Type:Patient Education How to access health informa tion online - Detail Indication:CAD (coronary artery disease) Start:26-Sep-2015 Instruction Type:Patient Education Patient Instructions Indication:CAD (coronary artery disease) Start:26-Sep-2015 Instruction Type:Provider Instructions for Treatment How to access health informa tion online Indication:Hypertension, essential, benign Start:23-Jun-2015 Instruction Type:Patient Education How to access health informa tion online - Detail Indication:Hypertension, essential, benign Start:23-Jun-2015 Instruction Type:Patient Education Patient Instructions Indication:Hypertension, essential, benign Start:23-Jun-2015 Instruction Type:Provider Instructions for Treatment How to access health informa tion online - Detail Indication:Anxiety Start:21-Mar-2015 Instruction Type:Patient Education Patient Instructions Indication:Anxiety Start:21-Mar-2015 Instruction Type:Provider Instructions for Treatment Patient Instructions Indication:Abnormal lung sounds Start:03-Nov-2012 Instruction Type:Provider Instructions for Treatment Patient Instructions Indication:Asthma Start:08-May-2012 Instruction Type:Provider Instructions for Treatment Patient Instructionsset up m edcial visit in 2 weeks adn come fasting bring bp diaries - Indication:Encounter for Medicare annual wellness exam Start:24-Apr-2012 Instruction Type:Provider Instructions for Treatment Patient Instructions Indication:Anxiety Start:24-Apr-2012 Instruction Type:Provider Instructions for Treatment [facility] Work Phone: progress note Author Evangelist [facility] Note Date/Time June 08, 2025 8 :57am [address] [place] [address] OFFICE VISIT Date of Service: 06/08/25 MR#: [id number] Acct: [id number] Name: RICKI BHARDWAJ Rep #: [id number] : 1945 Provider: DEVIN Gao Age/Sex: 80/M [place] [facility] [place]: Signed HPI HPI History of Present Illness Details: RICKI BHARDWAJ is a 80 year old white male who presents to the office today for a cardiovascular outpatient follow-up visit. He has a history of an acute inferolateral ST-T segment elevation myocardial infarction in February of 2015 with thrombectomy and stenting to his circumflex and OM. He also has a history of mitral valve disease, hypertension, and hyperlipidemia. He denies chest, arm, jaw, or neck discomfort. He denies palpitations. He denies bilateral lower extremity edema. He denies claudication. He denies shortness of breath with activity, shortness of breath at rest, orthopnea, or PND. He denies chronic cough. He denies significant, sudden weight gain. He denies lightheadedness, dizziness, near-syncope, or syncope. He denies blood inurine, blood in stool, or epistaxis. He denies fever with chills. He denies myalgia. He denies fatigue. His exercise level has remained stable via [employer] part-time work. Intake Vital Signs 06/04/24 08:34 06/08/25 07:12 Height 6 ft 5 ft 11 in Weight: 173 lb BMI 24.1 BP 133/81 H Pulse 61 Pulse Oximetry (%) 96 Intake Visit Reasons: 1 Y FU/PREV PFM PT Allergies No Known Allergies Allergy (Verified 12/21/24 13:56) Medications ?Medication ?Instructions ?Recorded ?Confirmed ?Type B-complex with vitamin C (Super B 1 tab PO DAILY 11/0106/08/25 History Complex-Vitamin C tablet) cholecalciferol (vitamin D3) 25 25 mcg PO DAILY 06/08/25 History mcg (1,000 unit) tablet nitroglycerin 0.4 mg sublingual 0.4 mg sublingual Q5M PRN Chest 11/02/19 06/08/25 Rx tablet Pain #90 tabs atorvastatin 80 mg tablet 80 mg PO Q OTHER DAY 2 06/08/25 History metoprolol succinate 50 mg 50 mg PO DAILY 06/06/23 History tablet,extended release 24 hr escitalopram oxalate 20 mg tablet 20 mg PO QDAY 06/08/25 History isosorbide mononitrate 30 mg 30 mg PO DAILY #90 tabs 0 12/21/24 06/08/25 Rx tablet,extended release 24 hr aspirin 81 mg tablet,delayed 81 mg PO QDAY #90 tabs 06/08/25 Rx release (Adult Aspirin Regimen) Ejection fraction %: 60 Have you fallen in the past year?: No PFSH Medical History (Updated 12/21/24 @ 13:55 by Poornima Santos LPN) Right inguinal hernia Cancer Cataracts, bilateral Skin cancer Pure hypercholesterolemia Chest pain Nonrheumatic mitral valve disorder Presence of stent in coronary artery (~03/15/15) Essential hypertension Mitral valve disorder Myocardial infarction Hypertension 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 Surgical History Status post percutaneous transluminal coronary angioplasty (~02/24/15) History of appendectomy Postsurgical percutaneous transluminal coronary angioplasty (PTCA) status Family History Father CVA (cerebral vascular accident) Mother Rheumatic fever FH: CABG (coronary artery bypass surgery) Social History Smoking Status: Current every day smoker alcohol intake: current alcohol intake frequency: a few times a week Alcohol type: beer substance use type: does not use caffeine: Yes Type: coffee Number of servings: 3 what type of physical activity do you participate in: none seatbelt use: always do you feel safe at home: Yes ROS Const Const: Negative for fatigue, weakness, headache(s) or frequent falls Eyes Eyes: Negative for blurry vision ENT ENT: Negative for headache(s), dizziness or Nosebleed/epistaxis Cardio Chest Pain: No Palpitations: No Edema: None Muscle aches with walking: None Resp Respiratory: Negative for SOB with activity, SOB at rest or SOB orthopnea\SOB lying down GI GI: Negative nausea, vomiting, heartburn, bright, red blood in stools or black,tarry stools : Negative for hematuria Musc Musc: Negative for muscle aches/ myalgia Skin Skin: Negative non-healing lesions or rash Neuro Neuro: Negative for dizziness, lightheadedness, near syncope, syncope, frequent falls, headache(s), weakness or blurry vision Endo Endo: Negative for fatigue Allergy Allergy/Immunology: Negative for rash Cardiology Exam Const Appearance: cooperative, healthy appearing, comfortable and no acute distress Nutritional Appearance: average body habitus and well nourished Orientation: alert, awake and oriented x3 Head Head: normal to inspection Ears: hearing grossly normal bilaterally Nose: external nose normal Face and Sinus: face symmetric Mouth: moist mucous membranes Eyes General: appearance normal, both eyes and all related structures Eyelids: eyelids normal EOM: EOM intact bilaterally Neck Neck: normal visual inspection and no JVD Carotids: normal carotid upstroke Chest Chest inspection: normal inspection of the chest, symmetric chest movement and normal respiratory effort; Negative cough Auscultation: Bilateral: Clear to Auscultation Cardio Rate: regular rate Rhythm: regular rhythm Heart sounds: S1 normal and S2 normal; Negative rub, gallop or murmur GI GI: normal to inspection Neuro General: patient alert, patient awake, patient oriented x3 and CN's II-XI intactbilaterally Skin Skin: no rashes or lesions noted Extremities Pulses: Normal: Right Posterior Tibial Pulse, Left Posterior Tibial Pulse, RightRadial Pulse and Left Radial Pulse Lower Extremity Edema: None: Bilateral Psych Psychological: normal affect Supplemental Info Supplemental Information Stress Test 06/25/2023: Exercise myocardial perfusion stress test. 78-year-old man with a history of coronary artery disease Stress protocol: Resting EKG demonstrates normal sinus rhythm with a rate of 64 bpm resting bloodpressure is 142/92 mmHg. The patient exercised according to the regular Eder protocol for a total duration of 8 minutes attaining a maximum heart rate of 141bpm which was 98% of maximum predicted heart rate; the maximum workload was 10.1metabolic equivalents. At rest there were no ST or T wave changes noted to suggest ischemia and at peak exercise upsloping ST changes only were noted whichdid not meet the criteria for ischemia. No clinical angina was noted the test was terminated due to the target heart rate being achieved/fatigue. The peak blood pressure was 210/98 mmHg. Rate-pressure product was 26,400. Myocardial perfusion protocol. 11.5 mCi of technetium 99m sestamibi was injected at rest. The patient exercised according to regular Eder protocol for total duration of 8 minutes and at peak exercise 33.4 mCi of technetium 99m sestamibi was injected stress images were obtained stress and rest images were reconstructed in comparing the short axis vertical long and horizontal long axis. Gated images were also obtained. Perfusion SPECT analysis: Review of the stress images demonstrate normal uptake of tracer noted in all areas of the myocardium. The resting images similarly demonstrate normal uptakeof tracer noted in all areas of the myocardium. No areas of reversibility are noted to suggest ischemia no previous infarct was noted. Gated SPECT analysis: The gated ejection fraction is 56%. Conclusion: Normal exercise myocardial perfusion stress test at a high workload Preserved ejection fraction. Echocardiogram 02/06/2022: Interpretation Summary Left ventricular systolic function is normal. The estimated ejection fraction is 60 %. Trivial mitral valve insufficiency. Trivial tricuspid valve insufficiency. Mild focal aortic valve calcification. Trivial aortic valve insufficiency. Trivial pulmonic valve insufficiency. Right ventricular systolic pressure estimated to be 25 mmHg. No evidence for diastolic dysfunction. Cardiac Catheterization 10/21/2018: PROCEDURE(S) PERFORMED FL62-QFC/COR/LV CLINICAL PROFILE AND INDICATIONS Indications: Suspected CAD Heart Failure: None Stress/Imaging Stress Test w/SPECT MPI: Yes Result: PositiveStress Test withSPECT MPI: Positive Angina Classification Anginal Classification w/in 2 Weeks: CCS III CAD Presentations: Stable angina. CONCLUSIONS Normal Left Ventricular End Diastolic Pressure Perserved Left Ventricular systolic function with normal EDP LVEF: by LV gram 55 % [place] Multivessel CAD LCX: Stent: Patent RECOMMENDATIONS Risk factor modification Medical therapy DESCRIPTION OF PROCEDURE The patient arrived to the procedure lab. The risks and benefits of the procedure as well as a full description of our services here and current unavailability of surgical backup were fully explained to the patient and/or their significant other prior to the catheterization. The Timeout was completed,verifying the correct patient and procedure. The patient's procedural site was prepped and draped in the usual fashion. Local anesthetic was given subcutaneously to right groin region with Lidocaine 2%. Using a modified Seldinger technique, arterial access was obtained via the right femoral artery, a 4Fr sheath was inserted Left Coronary Artery selective angiography was performed in multiple views using a 4 Fr. JL5 catheter. Right Coronary Artery selective angiography was then performed in multiple views using a 4 Fr. 3DRC catheter. Left Ventriculography was performed in DOMINGUEZ projection using a 4 Fr. Pigtail catheter. LV to AO pullback pressures were then recorded.The arterial sheath was pulled and manual compression applied until hemostasis is achieved. CORONARY ANGIOGRAPHY DOMINANCE: Left Dominant LEFT HEART ASSESSMENT Left Ventricular Ejection Fraction: by LV Gram 55 % Inferior Basal Hypokinesis Normal Left Ventricular End Diastolic Pressure LVEDP: 12 mmHg LEFT MAIN: Angiographically normal LEFT ANTERIOR DECENDING ARTERY: Mild luminal irregularities CIRCUMFLEX ARTERY: Mild luminal irregularities PROX CIRC: Eccentric: 10-25 % Stenosis MID CIRC: Previously placed stent is patent RIGHT CORONARY ARTERY: MID RCA: 25 % Stenosis VALVE FINDINGS: Normal Aortic Valve function Normal Mitral Valve function AORTIC ROOT: Angiographically normal Echocardiogram 2016: Interpretation Summary Left ventricular systolic function is normal. The estimated ejection fraction is 60 %. Mild concentric left ventricular hypertrophy. Mild (1+) mitral valve insufficiency. Trivial tricuspid valve insufficiency. Mild focal aortic valve calcification. Trivial pulmonic valve insufficiency. Labs: LDL Cholesterol, (0-130) 80 mg/dL HDL Cholesterol, (40-) 37 mg/dL L Cholesterol, (200) 137 mg/dL Triglycerides, (-199) 101 mg/dL Diagnostics: Electrocardiogram Echocardiogram Stress Test Stress Test Nuclear Medicine Cardiac Catheterization Chest X-Ray Abdomen/Pelvis CT Past Visits: Cardiology Visit Today Assessment and Plan Assessment and Plan (1) Presence of stent in coronary artery: Status: Chronic Comment: PTCA/JENNY to distal L CFX & OM, distal 60% stenosis mid-RCA not treated 03/15/15 Plan: Patient has a history of coronary artery disease with stent placement in 2014. His most recent cardiac catheterization in 2019 demonstrated [place] multivessel CAD, and patent LCX stent. His most recent stress test from 06/25/2023 was negative for ischemia. This appears stable. We will continue to monitor and not make any medication regimen changes. We will continue to promote risk factor and lifestyle modification. (2) Nonrheumatic mitral valve disorder: Status: Chronic Plan: Patient has a history of nonrheumatic mitral valve disorder. His most recent echocardiogram from 02/06/2022 demonstrated an ejection fraction of 60%, and trivial mitral valve insufficiency. He appears stable at this time. We will continue to monitor with history, exam, and echocardiograms as deemed appropriate. (3) Essential hypertension: Status: Chronic Plan: Patient's blood pressure is well-controlled today in the office. We will continue to monitor. We will not make any medication regimen changes. (4) Pure hypercholesterolemia: Status: Chronic Plan: His PCP monitors this. He will continue atorvastatin 80mg every other day. The patient was reminded of LDL goal of 70 and below for secondary prevention. Medications: New aspirin (Adult Aspirin Regimen) 81 mg PO QDAY 90 tabs 3RF Plan Details Additional Comments: Thank you for allowing us to participate in the patients plan of care, if you have any questions please do not hesitate to call. Plan was reviewed with patient/family member along with red flag symptoms. Understanding was acknowledged. Questions were answered to apparent satisfaction. This note was generated using a voice recognition system and there may be incorrect words, spelling or punctuation that were not noted when reviewing the office note prior to saving. Portions of this documentation were copied and pasted from previous office visitnotes to provide a cohesive continuity of the history. The note has been reviewed, edited, and updated, as necessary. Follow Up: 12 Months () Coding Level of Care Code Off vis,est,level 4 Diagnoses Presence of stent in coronary artery Z95.5 Nonrheumatic mitral valve disorder I34.9 Essential hypertension I10 Pure hypercholesterolemia E78.00 Coding Level of Care Code Off vis,est,level 4 Diagnoses Presence of stent in coronary artery Z95.5 Nonrheumatic mitral valve disorder I34.9 Essential hypertension I10 Pure hypercholesterolemia E78.00 Clinical Quality Measures Falls Risk Screening/Assistive Devices Have you fallen in the past year?: No Cardiac Ejection fraction %: 60 06/08/25 0858 <Electronically signed by Evangelist BELTRAN> Date _ Evangelist Gao NP, NP-C Cosigner Signature: Date (if applicable) CC: Dr. Catherine Garcia, DO ~ [facility] Work Phone: Reason for referral (narrative)No reason for referral information availableSt[facility]: Instructions Name Dates Details Non-smoker : How to access h ealth information online Indication:Non-smoker Non-smoker : How to access h ealth information online - Detail Indication:Non-smoker Non-smoker : Patient Instruc tions Indication:Non-smoker BMI 27.0-27.9,adult : How to access health information online Indication:BMI 27.0-27.9,adult BMI 27.0-27.9,adult : How to access health information online - Detail Indication:BMI 27.0-27.9,adult BMI 27.0-27.9,adult : Patien t Instructions Indication:BMI 27.0-27.9,adult Smoker : How to access healt h information online Indication:Smoker Smoker : How to access healt h information online - Detail Indication:Smoker Smoker : Patient Instruction s Indication:Smoker Current nonsmoker : How to a ccess health information online Indication:Current nonsmoker Current nonsmoker : How to a ccess health information online - Detail Indication:Current nonsmoker Current nonsmoker : Patient Instructions Indication:Current nonsmoker BMI 28.0-28.9,adult : How to access health information online Indication:BMI 28.0-28.9,adult BMI 28.0-28.9,adult : How to access health information online - Detail Indication:BMI 28.0-28.9,adult Cough : Patient Instructions Indication:Cough BMI 28.0-28.9,adult : Patien t Instructions Indication:BMI 28.0-28.9,adult Controlled diabetes mellitus : How to access health information online Indication:Controlled diabetes mellitus Controlled diabetes mellitus : How to access health information online - Detail Indication:Controlled diabetes mellitus Controlled diabetes mellitus : Patient Instructions Indication:Controlled diabetes mellitus CAD (coronary artery disease ) : How to access health information online Indication:CAD (coronary artery disease) CAD (coronary artery disease ) : How to access health information online - Detail Indication:CAD (coronary artery disease) CAD (coronary artery disease ) : Patient Instructions Indication:CAD (coronary artery disease) Hypertension, essential, selina ign : How to access health information online Indication:Hypertension, essential, benign Hypertension, essential, selina ign : How to access health information online - Detail Indication:Hypertension, essential, benign Hypertension, essential, selina ign : Patient Instructions Indication:Hypertension, essential, benign Anxiety : How to access heal th information online - Detail Indication:Anxiety Anxiety : Patient Instructio ns Indication:Anxiety Abnormal lung sounds : Patie nt Instructions Indication:Abnormal lung sounds Asthma : Patient Instruction s Indication:Asthma Encounter for Medicare annua l wellness exam : Patient Instructionsset up medcial visit in 2 weeks adn come fasting bring bp diaries - Indication:Encounter for Medicare annual wellness exam Name Dates Details CAD (coronary artery disease ) : cardiovascular counseling Indication:CAD (coronary artery disease) Non-smoker : How to access h ealth information online Indication:Non-smoker Non-smoker : How to access h ealth information online - Detail Indication:Non-smoker Non-smoker : Patient Instruc tions Indication:Non-smoker BMI 27.0-27.9,adult : How to access health information online Indication:BMI 27.0-27.9,adult BMI 27.0-27.9,adult : How to access health information online - Detail Indication:BMI 27.0-27.9,adult BMI 27.0-27.9,adult : Patien t Instructions Indication:BMI 27.0-27.9,adult Smoker : How to access healt h information online Indication:Smoker Smoker : How to access healt h information online - Detail Indication:Smoker Smoker : Patient Instruction s Indication:Smoker Current nonsmoker : How to a ccess health information online Indication:Current nonsmoker Current nonsmoker : How to a ccess health information online - Detail Indication:Current nonsmoker Current nonsmoker : Patient Instructions Indication:Current nonsmoker BMI 28.0-28.9,adult : How to access health information online Indication:BMI 28.0-28.9,adult BMI 28.0-28.9,adult : How to access health information online - Detail Indication:BMI 28.0-28.9,adult Cough : Patient Instructions Indication:Cough BMI 28.0-28.9,adult : Patien t Instructions Indication:BMI 28.0-28.9,adult Controlled diabetes mellitus : How to access health information online Indication:Controlled diabetes mellitus Controlled diabetes mellitus : How to access health information online - Detail Indication:Controlled diabetes mellitus Controlled diabetes mellitus : Patient Instructions Indication:Controlled diabetes mellitus CAD (coronary artery disease ) : How to access health information online Indication:CAD (coronary artery disease) CAD (coronary artery disease ) : How to access health information online - Detail Indication:CAD (coronary artery disease) CAD (coronary artery disease ) : Patient Instructions Indication:CAD (coronary artery disease) Hypertension, essential, selina ign : How to access health information online Indication:Hypertension, essential, benign Hypertension, essential, selina ign : How to access health information online - Detail Indication:Hypertension, essential, benign Hypertension, essential, selina ign : Patient Instructions Indication:Hypertension, essential, benign Anxiety : How to access heal th information online - Detail Indication:Anxiety Anxiety : Patient Instructio ns Indication:Anxiety Abnormal lung sounds : Patie nt Instructions Indication:Abnormal lung sounds Asthma : Patient Instruction s Indication:Asthma Encounter for Medicare ann l wellness exam : Patient Instructionsset up medcial visit in 2 weeks adn come fasting bring bp diaries - Indication:Encounter for Medicare annual wellness exam Name Dates Details How to access health informa tion online Indication:Ceruminosis, right (Renamed from Excessive cerumen in ear canal, right) Start:23-Dec-2018 Instruction Type:Patient Education How to access health informa tion online - Detail Indication:Ceruminosis, right (Renamed from Excessive cerumen in ear canal, right) Start:23-Dec-2018 Instruction Type:Patient Education Patient Instructions Indication:Ceruminosis, right (Renamed from Excessive cerumen in ear canal, right) Start:23-Dec-2018 Instruction Type:Provider Instructions for Treatment How to access health informa tion online Indication:Non-smoker Start:19-Dec-2018 Instruction Type:Patient Education How to access health informa tion online - Detail Indication:Non-smoker Start:19-Dec-2018 Instruction Type:Patient Education Patient Instructions Indication:Non-smoker Start:19-Dec-2018 Instruction Type:Provider Instructions for Treatment cardiovascular counseling Indication:CAD (coronary artery disease) Start:04-Dec-2018 Instruction Type:Provider Instructions for Treatment How to access health informa tion online Indication:Non-smoker Start:04-Dec-2018 Instruction Type:Patient Education How to access health informa tion online - Detail Indication:Non-smoker Start:04-Dec-2018 Instruction Type:Patient Education Patient Instructions Indication:Non-smoker Start:04-Dec-2018 Instruction Type:Provider Instructions for Treatment How to access health informa tion online Indication:Non-smoker Start:28-Aug-2018 Instruction Type:Patient Education How to access health informa tion online - Detail Indication:Non-smoker Start:28-Aug-2018 Instruction Type:Patient Education Patient Instructions Indication:Non-smoker Start:28-Aug-2018 Instruction Type:Provider Instructions for Treatment How to access health informa tion online Indication:BMI 27.0-27.9,adult Start:12-Jun-2018 Instruction Type:Patient Education How to access health informa tion online - Detail Indication:BMI 27.0-27.9,adult Start:12-Jun-2018 Instruction Type:Patient Education Patient Instructions Indication:BMI 27.0-27.9,adult Start:12-Jun-2018 Instruction Type:Provider Instructions for Treatment How to access health informa tion online Indication:Smoker Start:25-Apr-2018 Instruction Type:Patient Education How to access health informa tion online - Detail Indication:Smoker Start:25-Apr-2018 Instruction Type:Patient Education Patient Instructions Indication:Smoker Start:25-Apr-2018 Instruction Type:Provider Instructions for Treatment How to access health informa tion online Indication:Current nonsmoker Start:17-Apr-2018 Instruction Type:Patient Education How to access health informa tion online - Detail Indication:Current nonsmoker Start:17-Apr-2018 Instruction Type:Patient Education Patient Instructions Indication:Current nonsmoker Start:17-Apr-2018 Instruction Type:Provider Instructions for Treatment How to access health informa tion online Indication:Current nonsmoker Start:19-Dec-2017 Instruction Type:Patient Education How to access health informa tion online - Detail Indication:Current nonsmoker Start:19-Dec-2017 Instruction Type:Patient Education Patient Instructions Indication:Current nonsmoker Start:19-Dec-2017 Instruction Type:Provider Instructions for Treatment How to access health informa tion online Indication:Current nonsmoker Start:27-Nov-2017 Instruction Type:Patient Education How to access health informa tion online - Detail Indication:Current nonsmoker Start:27-Nov-2017 Instruction Type:Patient Education Patient Instructions Indication:Current nonsmoker Start:27-Nov-2017 Instruction Type:Provider Instructions for Treatment How to access health informa tion online Indication:BMI 28.0-28.9,adult Start:14-Nov-2017 Instruction Type:Patient Education How to access health informa tion online - Detail Indication:BMI 28.0-28.9,adult Start:14-Nov-2017 Instruction Type:Patient Education Patient Instructions Indication:Cough Start:14-Nov-2017 Instruction Type:Provider Instructions for Treatment How to access health informa tion online Indication:BMI 28.0-28.9,adult Start:05-Nov-2017 Instruction Type:Patient Education How to access health informa tion online - Detail Indication:BMI 28.0-28.9,adult Start:05-Nov-2017 Instruction Type:Patient Education Patient Instructions Indication:BMI 28.0-28.9,adult Start:05-Nov-2017 Instruction Type:Provider Instructions for Treatment How to access health informa tion online Indication:Current nonsmoker Start:27-Aug-2017 Instruction Type:Patient Education How to access health informa tion online - Detail Indication:Current nonsmoker Start:27-Aug-2017 Instruction Type:Patient Education Patient Instructions Indication:Cough Start:27-Aug-2017 Instruction Type:Provider Instructions for Treatment How to access health informa tion online Indication:BMI 28.0-28.9,adult Start:11-Oct-2016 Instruction Type:Patient Education How to access health informa tion online - Detail Indication:BMI 28.0-28.9,adult Start:11-Oct-2016 Instruction Type:Patient Education Patient Instructions Indication:BMI 28.0-28.9,adult Start:11-Oct-2016 Instruction Type:Provider Instructions for Treatment How to access health informa tion online Indication:Controlled diabetes mellitus Start:29-Dec-2015 Instruction Type:Patient Education How to access health informa tion online - Detail Indication:Controlled diabetes mellitus Start:29-Dec-2015 Instruction Type:Patient Education Patient Instructions Indication:Controlled diabetes mellitus Start:29-Dec-2015 Instruction Type:Provider Instructions for Treatment How to access health informa tion online Indication:CAD (coronary artery disease) Start:26-Sep-2015 Instruction Type:Patient Education How to access health informa tion online - Detail Indication:CAD (coronary artery disease) Start:26-Sep-2015 Instruction Type:Patient Education Patient Instructions Indication:CAD (coronary artery disease) Start:26-Sep-2015 Instruction Type:Provider Instructions for Treatment How to access health informa tion online Indication:Hypertension, essential, benign Start:23-Jun-2015 Instruction Type:Patient Education How to access health informa tion online - Detail Indication:Hypertension, essential, benign Start:23-Jun-2015 Instruction Type:Patient Education Patient Instructions Indication:Hypertension, essential, benign Start:23-Jun-2015 Instruction Type:Provider Instructions for Treatment How to access health informa tion online - Detail Indication:Anxiety Start:21-Mar-2015 Instruction Type:Patient Education Patient Instructions Indication:Anxiety Start:21-Mar-2015 Instruction Type:Provider Instructions for Treatment Patient Instructions Indication:Abnormal lung sounds Start:03-Nov-2012 Instruction Type:Provider Instructions for Treatment Patient Instructions Indication:Asthma Start:08-May-2012 Instruction Type:Provider Instructions for Treatment Patient Instructionsset up m edcial visit in 2 weeks adn come fasting bring bp diaries - Indication:Encounter for Medicare annual wellness exam Start:24-Apr-2012 Instruction Type:Provider Instructions for Treatment Patient Instructions Indication:Anxiety Start:24-Apr-2012 Instruction Type:Provider Instructions for Treatment Name Dates Details How to access health informa tion online Indication:Ceruminosis, right (Renamed from Excessive cerumen in ear canal, right) Start:23-Dec-2018 Instruction Type:Patient Education How to access health informa tion online - Detail Indication:Ceruminosis, right (Renamed from Excessive cerumen in ear canal, right) Start:23-Dec-2018 Instruction Type:Patient Education Patient Instructions Indication:Ceruminosis, right (Renamed from Excessive cerumen in ear canal, right) Start:23-Dec-2018 Instruction Type:Provider Instructions for Treatment How to access health informa tion online Indication:Non-smoker Start:19-Dec-2018 Instruction Type:Patient Education How to access health informa tion online - Detail Indication:Non-smoker Start:19-Dec-2018 Instruction Type:Patient Education Patient Instructions Indication:Non-smoker Start:19-Dec-2018 Instruction Type:Provider Instructions for Treatment cardiovascular counseling Indication:CAD (coronary artery disease) Start:04-Dec-2018 Instruction Type:Provider Instructions for Treatment How to access health informa tion online Indication:Non-smoker Start:04-Dec-2018 Instruction Type:Patient Education How to access health informa tion online - Detail Indication:Non-smoker Start:04-Dec-2018 Instruction Type:Patient Education Patient Instructions Indication:Non-smoker Start:04-Dec-2018 Instruction Type:Provider Instructions for Treatment How to access health informa tion online Indication:Non-smoker Start:28-Aug-2018 Instruction Type:Patient Education How to access health informa tion online - Detail Indication:Non-smoker Start:28-Aug-2018 Instruction Type:Patient Education Patient Instructions Indication:Non-smoker Start:28-Aug-2018 Instruction Type:Provider Instructions for Treatment How to access health informa tion online Indication:BMI 27.0-27.9,adult Start:12-Jun-2018 Instruction Type:Patient Education How to access health informa tion online - Detail Indication:BMI 27.0-27.9,adult Start:12-Jun-2018 Instruction Type:Patient Education Patient Instructions Indication:BMI 27.0-27.9,adult Start:12-Jun-2018 Instruction Type:Provider Instructions for Treatment How to access health informa tion online Indication:Smoker Start:25-Apr-2018 Instruction Type:Patient Education How to access health informa tion online - Detail Indication:Smoker Start:25-Apr-2018 Instruction Type:Patient Education Patient Instructions Indication:Smoker Start:25-Apr-2018 Instruction Type:Provider Instructions for Treatment How to access health informa tion online Indication:Current nonsmoker Start:17-Apr-2018 Instruction Type:Patient Education How to access health informa tion online - Detail Indication:Current nonsmoker Start:17-Apr-2018 Instruction Type:Patient Education Patient Instructions Indication:Current nonsmoker Start:17-Apr-2018 Instruction Type:Provider Instructions for Treatment How to access health informa tion online Indication:Current nonsmoker Start:19-Dec-2017 Instruction Type:Patient Education How to access health informa tion online - Detail Indication:Current nonsmoker Start:19-Dec-2017 Instruction Type:Patient Education Patient Instructions Indication:Current nonsmoker Start:19-Dec-2017 Instruction Type:Provider Instructions for Treatment How to access health informa tion online Indication:Current nonsmoker Start:27-Nov-2017 Instruction Type:Patient Education How to access health informa tion online - Detail Indication:Current nonsmoker Start:27-Nov-2017 Instruction Type:Patient Education Patient Instructions Indication:Current nonsmoker Start:27-Nov-2017 Instruction Type:Provider Instructions for Treatment How to access health informa tion online Indication:BMI 28.0-28.9,adult Start:14-Nov-2017 Instruction Type:Patient Education How to access health informa tion online - Detail Indication:BMI 28.0-28.9,adult Start:14-Nov-2017 Instruction Type:Patient Education Patient Instructions Indication:Cough Start:14-Nov-2017 Instruction Type:Provider Instructions for Treatment How to access health informa tion online Indication:BMI 28.0-28.9,adult Start:05-Nov-2017 Instruction Type:Patient Education How to access health informa tion online - Detail Indication:BMI 28.0-28.9,adult Start:05-Nov-2017 Instruction Type:Patient Education Patient Instructions Indication:BMI 28.0-28.9,adult Start:05-Nov-2017 Instruction Type:Provider Instructions for Treatment How to access health informa tion online Indication:Current nonsmoker Start:27-Aug-2017 Instruction Type:Patient Education How to access health informa tion online - Detail Indication:Current nonsmoker Start:27-Aug-2017 Instruction Type:Patient Education Patient Instructions Indication:Cough Start:27-Aug-2017 Instruction Type:Provider Instructions for Treatment How to access health informa tion online Indication:BMI 28.0-28.9,adult Start:11-Oct-2016 Instruction Type:Patient Education How to access health informa tion online - Detail Indication:BMI 28.0-28.9,adult Start:11-Oct-2016 Instruction Type:Patient Education Patient Instructions Indication:BMI 28.0-28.9,adult Start:11-Oct-2016 Instruction Type:Provider Instructions for Treatment How to access health informa tion online Indication:Controlled diabetes mellitus Start:29-Dec-2015 Instruction Type:Patient Education How to access health informa tion online - Detail Indication:Controlled diabetes mellitus Start:29-Dec-2015 Instruction Type:Patient Education Patient Instructions Indication:Controlled diabetes mellitus Start:29-Dec-2015 Instruction Type:Provider Instructions for Treatment How to access health informa tion online Indication:CAD (coronary artery disease) Start:26-Sep-2015 Instruction Type:Patient Education How to access health informa tion online - Detail Indication:CAD (coronary artery disease) Start:26-Sep-2015 Instruction Type:Patient Education Patient Instructions Indication:CAD (coronary artery disease) Start:26-Sep-2015 Instruction Type:Provider Instructions for Treatment How to access health informa tion online Indication:Hypertension, essential, benign Start:23-Jun-2015 Instruction Type:Patient Education How to access health informa tion online - Detail Indication:Hypertension, essential, benign Start:23-Jun-2015 Instruction Type:Patient Education Patient Instructions Indication:Hypertension, essential, benign Start:23-Jun-2015 Instruction Type:Provider Instructions for Treatment How to access health informa tion online - Detail Indication:Anxiety Start:21-Mar-2015 Instruction Type:Patient Education Patient Instructions Indication:Anxiety Start:21-Mar-2015 Instruction Type:Provider Instructions for Treatment Patient Instructions Indication:Abnormal lung sounds Start:03-Nov-2012 Instruction Type:Provider Instructions for Treatment Patient Instructions Indication:Asthma Start:08-May-2012 Instruction Type:Provider Instructions for Treatment Patient Instructionsset up m edcial visit in 2 weeks adn come fasting bring bp diaries - Indication:Encounter for Medicare annual wellness exam Start:24-Apr-2012 Instruction Type:Provider Instructions for Treatment Patient Instructions Indication:Anxiety Start:24-Apr-2012 Instruction Type:Provider Instructions for Treatment Name Dates Details How to access health informa tion online Indication:Ceruminosis, right (Renamed from Excessive cerumen in ear canal, right) Start:23-Dec-2018 Instruction Type:Patient Education How to access health informa tion online - Detail Indication:Ceruminosis, right (Renamed from Excessive cerumen in ear canal, right) Start:23-Dec-2018 Instruction Type:Patient Education Patient Instructions Indication:Ceruminosis, right (Renamed from Excessive cerumen in ear canal, right) Start:23-Dec-2018 Instruction Type:Provider Instructions for Treatment How to access health informa tion online Indication:Non-smoker Start:19-Dec-2018 Instruction Type:Patient Education How to access health informa tion online - Detail Indication:Non-smoker Start:19-Dec-2018 Instruction Type:Patient Education Patient Instructions Indication:Non-smoker Start:19-Dec-2018 Instruction Type:Provider Instructions for Treatment cardiovascular counseling Indication:CAD (coronary artery disease) Start:04-Dec-2018 Instruction Type:Provider Instructions for Treatment How to access health informa tion online Indication:Non-smoker Start:04-Dec-2018 Instruction Type:Patient Education How to access health informa tion online - Detail Indication:Non-smoker Start:04-Dec-2018 Instruction Type:Patient Education Patient Instructions Indication:Non-smoker Start:04-Dec-2018 Instruction Type:Provider Instructions for Treatment How to access health informa tion online Indication:Non-smoker Start:28-Aug-2018 Instruction Type:Patient Education How to access health informa tion online - Detail Indication:Non-smoker Start:28-Aug-2018 Instruction Type:Patient Education Patient Instructions Indication:Non-smoker Start:28-Aug-2018 Instruction Type:Provider Instructions for Treatment How to access health informa tion online Indication:BMI 27.0-27.9,adult Start:12-Jun-2018 Instruction Type:Patient Education How to access health informa tion online - Detail Indication:BMI 27.0-27.9,adult Start:12-Jun-2018 Instruction Type:Patient Education Patient Instructions Indication:BMI 27.0-27.9,adult Start:12-Jun-2018 Instruction Type:Provider Instructions for Treatment How to access health informa tion online Indication:Smoker Start:25-Apr-2018 Instruction Type:Patient Education How to access health informa tion online - Detail Indication:Smoker Start:25-Apr-2018 Instruction Type:Patient Education Patient Instructions Indication:Smoker Start:25-Apr-2018 Instruction Type:Provider Instructions for Treatment How to access health informa tion online Indication:Current nonsmoker Start:17-Apr-2018 Instruction Type:Patient Education How to access health informa tion online - Detail Indication:Current nonsmoker Start:17-Apr-2018 Instruction Type:Patient Education Patient Instructions Indication:Current nonsmoker Start:17-Apr-2018 Instruction Type:Provider Instructions for Treatment How to access health informa tion online Indication:Current nonsmoker Start:19-Dec-2017 Instruction Type:Patient Education How to access health informa tion online - Detail Indication:Current nonsmoker Start:19-Dec-2017 Instruction Type:Patient Education Patient Instructions Indication:Current nonsmoker Start:19-Dec-2017 Instruction Type:Provider Instructions for Treatment How to access health informa tion online Indication:Current nonsmoker Start:27-Nov-2017 Instruction Type:Patient Education How to access health informa tion online - Detail Indication:Current nonsmoker Start:27-Nov-2017 Instruction Type:Patient Education Patient Instructions Indication:Current nonsmoker Start:27-Nov-2017 Instruction Type:Provider Instructions for Treatment How to access health informa tion online Indication:BMI 28.0-28.9,adult Start:14-Nov-2017 Instruction Type:Patient Education How to access health informa tion online - Detail Indication:BMI 28.0-28.9,adult Start:14-Nov-2017 Instruction Type:Patient Education Patient Instructions Indication:Cough Start:14-Nov-2017 Instruction Type:Provider Instructions for Treatment How to access health informa tion online Indication:BMI 28.0-28.9,adult Start:05-Nov-2017 Instruction Type:Patient Education How to access health informa tion online - Detail Indication:BMI 28.0-28.9,adult Start:05-Nov-2017 Instruction Type:Patient Education Patient Instructions Indication:BMI 28.0-28.9,adult Start:05-Nov-2017 Instruction Type:Provider Instructions for Treatment How to access health informa tion online Indication:Current nonsmoker Start:27-Aug-2017 Instruction Type:Patient Education How to access health informa tion online - Detail Indication:Current nonsmoker Start:27-Aug-2017 Instruction Type:Patient Education Patient Instructions Indication:Cough Start:27-Aug-2017 Instruction Type:Provider Instructions for Treatment How to access health informa tion online Indication:BMI 28.0-28.9,adult Start:11-Oct-2016 Instruction Type:Patient Education How to access health informa tion online - Detail Indication:BMI 28.0-28.9,adult Start:11-Oct-2016 Instruction Type:Patient Education Patient Instructions Indication:BMI 28.0-28.9,adult Start:11-Oct-2016 Instruction Type:Provider Instructions for Treatment How to access health informa tion online Indication:Controlled diabetes mellitus Start:29-Dec-2015 Instruction Type:Patient Education How to access health informa tion online - Detail Indication:Controlled diabetes mellitus Start:29-Dec-2015 Instruction Type:Patient Education Patient Instructions Indication:Controlled diabetes mellitus Start:29-Dec-2015 Instruction Type:Provider Instructions for Treatment How to access health informa tion online Indication:CAD (coronary artery disease) Start:26-Sep-2015 Instruction Type:Patient Education How to access health informa tion online - Detail Indication:CAD (coronary artery disease) Start:26-Sep-2015 Instruction Type:Patient Education Patient Instructions Indication:CAD (coronary artery disease) Start:26-Sep-2015 Instruction Type:Provider Instructions for Treatment How to access health informa tion online Indication:Hypertension, essential, benign Start:23-Jun-2015 Instruction Type:Patient Education How to access health informa tion online - Detail Indication:Hypertension, essential, benign Start:23-Jun-2015 Instruction Type:Patient Education Patient Instructions Indication:Hypertension, essential, benign Start:23-Jun-2015 Instruction Type:Provider Instructions for Treatment How to access health informa tion online - Detail Indication:Anxiety Start:21-Mar-2015 Instruction Type:Patient Education Patient Instructions Indication:Anxiety Start:21-Mar-2015 Instruction Type:Provider Instructions for Treatment Patient Instructions Indication:Abnormal lung sounds Start:03-Nov-2012 Instruction Type:Provider Instructions for Treatment Patient Instructions Indication:Asthma Start:08-May-2012 Instruction Type:Provider Instructions for Treatment Patient Instructionsset up m edcial visit in 2 weeks adn come fasting bring bp diaries - Indication:Encounter for Medicare annual wellness exam Start:24-Apr-2012 Instruction Type:Provider Instructions for Treatment Patient Instructions Indication:Anxiety Start:24-Apr-2012 Instruction Type:Provider Instructions for Treatment Name Dates Details How to access health informa tion online Indication:Non-smoker Start:30-Apr-2019 Instruction Type:Patient Education How to access health informa tion online - Detail Indication:Non-smoker Start:30-Apr-2019 Instruction Type:Patient Education Patient Instructions Indication:Non-smoker Start:30-Apr-2019 Instruction Type:Provider Instructions for Treatment How to access health informa tion online Indication:Ceruminosis, right (Renamed from Excessive cerumen in ear canal, right) Start:23-Dec-2018 Instruction Type:Patient Education How to access health informa tion online - Detail Indication:Ceruminosis, right (Renamed from Excessive cerumen in ear canal, right) Start:23-Dec-2018 Instruction Type:Patient Education Patient Instructions Indication:Ceruminosis, right (Renamed from Excessive cerumen in ear canal, right) Start:23-Dec-2018 Instruction Type:Provider Instructions for Treatment How to access health informa tion online Indication:Non-smoker Start:19-Dec-2018 Instruction Type:Patient Education How to access health informa tion online - Detail Indication:Non-smoker Start:19-Dec-2018 Instruction Type:Patient Education Patient Instructions Indication:Non-smoker Start:19-Dec-2018 Instruction Type:Provider Instructions for Treatment cardiovascular counseling Indication:CAD (coronary artery disease) Start:04-Dec-2018 Instruction Type:Provider Instructions for Treatment How to access health informa tion online Indication:Non-smoker Start:04-Dec-2018 Instruction Type:Patient Education How to access health informa tion online - Detail Indication:Non-smoker Start:04-Dec-2018 Instruction Type:Patient Education Patient Instructions Indication:Non-smoker Start:04-Dec-2018 Instruction Type:Provider Instructions for Treatment How to access health informa tion online Indication:Non-smoker Start:28-Aug-2018 Instruction Type:Patient Education How to access health informa tion online - Detail Indication:Non-smoker Start:28-Aug-2018 Instruction Type:Patient Education Patient Instructions Indication:Non-smoker Start:28-Aug-2018 Instruction Type:Provider Instructions for Treatment How to access health informa tion online Indication:BMI 27.0-27.9,adult Start:12-Jun-2018 Instruction Type:Patient Education How to access health informa tion online - Detail Indication:BMI 27.0-27.9,adult Start:12-Jun-2018 Instruction Type:Patient Education Patient Instructions Indication:BMI 27.0-27.9,adult Start:12-Jun-2018 Instruction Type:Provider Instructions for Treatment How to access health informa tion online Indication:Smoker Start:25-Apr-2018 Instruction Type:Patient Education How to access health informa tion online - Detail Indication:Smoker Start:25-Apr-2018 Instruction Type:Patient Education Patient Instructions Indication:Smoker Start:25-Apr-2018 Instruction Type:Provider Instructions for Treatment How to access health informa tion online Indication:Current nonsmoker Start:17-Apr-2018 Instruction Type:Patient Education How to access health informa tion online - Detail Indication:Current nonsmoker Start:17-Apr-2018 Instruction Type:Patient Education Patient Instructions Indication:Current nonsmoker Start:17-Apr-2018 Instruction Type:Provider Instructions for Treatment How to access health informa tion online Indication:Current nonsmoker Start:19-Dec-2017 Instruction Type:Patient Education How to access health informa tion online - Detail Indication:Current nonsmoker Start:19-Dec-2017 Instruction Type:Patient Education Patient Instructions Indication:Current nonsmoker Start:19-Dec-2017 Instruction Type:Provider Instructions for Treatment How to access health informa tion online Indication:Current nonsmoker Start:27-Nov-2017 Instruction Type:Patient Education How to access health informa tion online - Detail Indication:Current nonsmoker Start:27-Nov-2017 Instruction Type:Patient Education Patient Instructions Indication:Current nonsmoker Start:27-Nov-2017 Instruction Type:Provider Instructions for Treatment How to access health informa tion online Indication:BMI 28.0-28.9,adult Start:14-Nov-2017 Instruction Type:Patient Education How to access health informa tion online - Detail Indication:BMI 28.0-28.9,adult Start:14-Nov-2017 Instruction Type:Patient Education Patient Instructions Indication:Cough Start:14-Nov-2017 Instruction Type:Provider Instructions for Treatment How to access health informa tion online Indication:BMI 28.0-28.9,adult Start:05-Nov-2017 Instruction Type:Patient Education How to access health informa tion online - Detail Indication:BMI 28.0-28.9,adult Start:05-Nov-2017 Instruction Type:Patient Education Patient Instructions Indication:BMI 28.0-28.9,adult Start:05-Nov-2017 Instruction Type:Provider Instructions for Treatment How to access health informa tion online Indication:Current nonsmoker Start:27-Aug-2017 Instruction Type:Patient Education How to access health informa tion online - Detail Indication:Current nonsmoker Start:27-Aug-2017 Instruction Type:Patient Education Patient Instructions Indication:Cough Start:27-Aug-2017 Instruction Type:Provider Instructions for Treatment How to access health informa tion online Indication:BMI 28.0-28.9,adult Start:11-Oct-2016 Instruction Type:Patient Education How to access health informa tion online - Detail Indication:BMI 28.0-28.9,adult Start:11-Oct-2016 Instruction Type:Patient Education Patient Instructions Indication:BMI 28.0-28.9,adult Start:11-Oct-2016 Instruction Type:Provider Instructions for Treatment How to access health informa tion online Indication:Controlled diabetes mellitus Start:29-Dec-2015 Instruction Type:Patient Education How to access health informa tion online - Detail Indication:Controlled diabetes mellitus Start:29-Dec-2015 Instruction Type:Patient Education Patient Instructions Indication:Controlled diabetes mellitus Start:29-Dec-2015 Instruction Type:Provider Instructions for Treatment How to access health informa tion online Indication:CAD (coronary artery disease) Start:26-Sep-2015 Instruction Type:Patient Education How to access health informa tion online - Detail Indication:CAD (coronary artery disease) Start:26-Sep-2015 Instruction Type:Patient Education Patient Instructions Indication:CAD (coronary artery disease) Start:26-Sep-2015 Instruction Type:Provider Instructions for Treatment How to access health informa tion online Indication:Hypertension, essential, benign Start:23-Jun-2015 Instruction Type:Patient Education How to access health informa tion online - Detail Indication:Hypertension, essential, benign Start:23-Jun-2015 Instruction Type:Patient Education Patient Instructions Indication:Hypertension, essential, benign Start:23-Jun-2015 Instruction Type:Provider Instructions for Treatment How to access health informa tion online - Detail Indication:Anxiety Start:21-Mar-2015 Instruction Type:Patient Education Patient Instructions Indication:Anxiety Start:21-Mar-2015 Instruction Type:Provider Instructions for Treatment Patient Instructions Indication:Abnormal lung sounds Start:03-Nov-2012 Instruction Type:Provider Instructions for Treatment Patient Instructions Indication:Asthma Start:08-May-2012 Instruction Type:Provider Instructions for Treatment Patient Instructionsset up m edcial visit in 2 weeks adn come fasting bring bp diaries - Indication:Encounter for Medicare annual wellness exam Start:24-Apr-2012 Instruction Type:Provider Instructions for Treatment Patient Instructions Indication:Anxiety Start:24-Apr-2012 Instruction Type:Provider Instructions for Treatment Name Dates Details How to access health informa tion online Indication:Non-smoker Start:30-Apr-2019 Instruction Type:Patient Education How to access health informa tion online - Detail Indication:Non-smoker Start:30-Apr-2019 Instruction Type:Patient Education Patient Instructions Indication:Non-smoker Start:30-Apr-2019 Instruction Type:Provider Instructions for Treatment How to access health informa tion online Indication:Ceruminosis, right (Renamed from Excessive cerumen in ear canal, right) Start:23-Dec-2018 Instruction Type:Patient Education How to access health informa tion online - Detail Indication:Ceruminosis, right (Renamed from Excessive cerumen in ear canal, right) Start:23-Dec-2018 Instruction Type:Patient Education Patient Instructions Indication:Ceruminosis, right (Renamed from Excessive cerumen in ear canal, right) Start:23-Dec-2018 Instruction Type:Provider Instructions for Treatment How to access health informa tion online Indication:Non-smoker Start:19-Dec-2018 Instruction Type:Patient Education How to access health informa tion online - Detail Indication:Non-smoker Start:19-Dec-2018 Instruction Type:Patient Education Patient Instructions Indication:Non-smoker Start:19-Dec-2018 Instruction Type:Provider Instructions for Treatment cardiovascular counseling Indication:CAD (coronary artery disease) Start:04-Dec-2018 Instruction Type:Provider Instructions for Treatment How to access health informa tion online Indication:Non-smoker Start:04-Dec-2018 Instruction Type:Patient Education How to access health informa tion online - Detail Indication:Non-smoker Start:04-Dec-2018 Instruction Type:Patient Education Patient Instructions Indication:Non-smoker Start:04-Dec-2018 Instruction Type:Provider Instructions for Treatment How to access health informa tion online Indication:Non-smoker Start:28-Aug-2018 Instruction Type:Patient Education How to access health informa tion online - Detail Indication:Non-smoker Start:28-Aug-2018 Instruction Type:Patient Education Patient Instructions Indication:Non-smoker Start:28-Aug-2018 Instruction Type:Provider Instructions for Treatment How to access health informa tion online Indication:BMI 27.0-27.9,adult Start:12-Jun-2018 Instruction Type:Patient Education How to access health informa tion online - Detail Indication:BMI 27.0-27.9,adult Start:12-Jun-2018 Instruction Type:Patient Education Patient Instructions Indication:BMI 27.0-27.9,adult Start:12-Jun-2018 Instruction Type:Provider Instructions for Treatment How to access health informa tion online Indication:Smoker Start:25-Apr-2018 Instruction Type:Patient Education How to access health informa tion online - Detail Indication:Smoker Start:25-Apr-2018 Instruction Type:Patient Education Patient Instructions Indication:Smoker Start:25-Apr-2018 Instruction Type:Provider Instructions for Treatment How to access health informa tion online Indication:Current nonsmoker Start:17-Apr-2018 Instruction Type:Patient Education How to access health informa tion online - Detail Indication:Current nonsmoker Start:17-Apr-2018 Instruction Type:Patient Education Patient Instructions Indication:Current nonsmoker Start:17-Apr-2018 Instruction Type:Provider Instructions for Treatment How to access health informa tion online Indication:Current nonsmoker Start:19-Dec-2017 Instruction Type:Patient Education How to access health informa tion online - Detail Indication:Current nonsmoker Start:19-Dec-2017 Instruction Type:Patient Education Patient Instructions Indication:Current nonsmoker Start:19-Dec-2017 Instruction Type:Provider Instructions for Treatment How to access health informa tion online Indication:Current nonsmoker Start:27-Nov-2017 Instruction Type:Patient Education How to access health informa tion online - Detail Indication:Current nonsmoker Start:27-Nov-2017 Instruction Type:Patient Education Patient Instructions Indication:Current nonsmoker Start:27-Nov-2017 Instruction Type:Provider Instructions for Treatment How to access health informa tion online Indication:BMI 28.0-28.9,adult Start:14-Nov-2017 Instruction Type:Patient Education How to access health informa tion online - Detail Indication:BMI 28.0-28.9,adult Start:14-Nov-2017 Instruction Type:Patient Education Patient Instructions Indication:Cough Start:14-Nov-2017 Instruction Type:Provider Instructions for Treatment How to access health informa tion online Indication:BMI 28.0-28.9,adult Start:05-Nov-2017 Instruction Type:Patient Education How to access health informa tion online - Detail Indication:BMI 28.0-28.9,adult Start:05-Nov-2017 Instruction Type:Patient Education Patient Instructions Indication:BMI 28.0-28.9,adult Start:05-Nov-2017 Instruction Type:Provider Instructions for Treatment How to access health informa tion online Indication:Current nonsmoker Start:27-Aug-2017 Instruction Type:Patient Education How to access health informa tion online - Detail Indication:Current nonsmoker Start:27-Aug-2017 Instruction Type:Patient Education Patient Instructions Indication:Cough Start:27-Aug-2017 Instruction Type:Provider Instructions for Treatment How to access health informa tion online Indication:BMI 28.0-28.9,adult Start:11-Oct-2016 Instruction Type:Patient Education How to access health informa tion online - Detail Indication:BMI 28.0-28.9,adult Start:11-Oct-2016 Instruction Type:Patient Education Patient Instructions Indication:BMI 28.0-28.9,adult Start:11-Oct-2016 Instruction Type:Provider Instructions for Treatment How to access health informa tion online Indication:Controlled diabetes mellitus Start:29-Dec-2015 Instruction Type:Patient Education How to access health informa tion online - Detail Indication:Controlled diabetes mellitus Start:29-Dec-2015 Instruction Type:Patient Education Patient Instructions Indication:Controlled diabetes mellitus Start:29-Dec-2015 Instruction Type:Provider Instructions for Treatment How to access health informa tion online Indication:CAD (coronary artery disease) Start:26-Sep-2015 Instruction Type:Patient Education How to access health informa tion online - Detail Indication:CAD (coronary artery disease) Start:26-Sep-2015 Instruction Type:Patient Education Patient Instructions Indication:CAD (coronary artery disease) Start:26-Sep-2015 Instruction Type:Provider Instructions for Treatment How to access health informa tion online Indication:Hypertension, essential, benign Start:23-Jun-2015 Instruction Type:Patient Education How to access health informa tion online - Detail Indication:Hypertension, essential, benign Start:23-Jun-2015 Instruction Type:Patient Education Patient Instructions Indication:Hypertension, essential, benign Start:23-Jun-2015 Instruction Type:Provider Instructions for Treatment How to access health informa tion online - Detail Indication:Anxiety Start:21-Mar-2015 Instruction Type:Patient Education Patient Instructions Indication:Anxiety Start:21-Mar-2015 Instruction Type:Provider Instructions for Treatment Patient Instructions Indication:Abnormal lung sounds Start:03-Nov-2012 Instruction Type:Provider Instructions for Treatment Patient Instructions Indication:Asthma Start:08-May-2012 Instruction Type:Provider Instructions for Treatment Patient Instructionsset up m edcial visit in 2 weeks adn come fasting bring bp diaries - Indication:Encounter for Medicare annual wellness exam Start:24-Apr-2012 Instruction Type:Provider Instructions for Treatment Patient Instructions Indication:Anxiety Start:24-Apr-2012 Instruction Type:Provider Instructions for Treatment Name Dates Details How to access health informa tion online Indication:Non-smoker Start:30-Apr-2019 Instruction Type:Patient Education How to access health informa tion online - Detail Indication:Non-smoker Start:30-Apr-2019 Instruction Type:Patient Education Patient Instructions Indication:Non-smoker Start:30-Apr-2019 Instruction Type:Provider Instructions for Treatment How to access health informa tion online Indication:Ceruminosis, right (Renamed from Excessive cerumen in ear canal, right) Start:23-Dec-2018 Instruction Type:Patient Education How to access health informa tion online - Detail Indication:Ceruminosis, right (Renamed from Excessive cerumen in ear canal, right) Start:23-Dec-2018 Instruction Type:Patient Education Patient Instructions Indication:Ceruminosis, right (Renamed from Excessive cerumen in ear canal, right) Start:23-Dec-2018 Instruction Type:Provider Instructions for Treatment How to access health informa tion online Indication:Non-smoker Start:19-Dec-2018 Instruction Type:Patient Education How to access health informa tion online - Detail Indication:Non-smoker Start:19-Dec-2018 Instruction Type:Patient Education Patient Instructions Indication:Non-smoker Start:19-Dec-2018 Instruction Type:Provider Instructions for Treatment cardiovascular counseling Indication:CAD (coronary artery disease) Start:04-Dec-2018 Instruction Type:Provider Instructions for Treatment How to access health informa tion online Indication:Non-smoker Start:04-Dec-2018 Instruction Type:Patient Education How to access health informa tion online - Detail Indication:Non-smoker Start:04-Dec-2018 Instruction Type:Patient Education Patient Instructions Indication:Non-smoker Start:04-Dec-2018 Instruction Type:Provider Instructions for Treatment How to access health informa tion online Indication:Non-smoker Start:28-Aug-2018 Instruction Type:Patient Education How to access health informa tion online - Detail Indication:Non-smoker Start:28-Aug-2018 Instruction Type:Patient Education Patient Instructions Indication:Non-smoker Start:28-Aug-2018 Instruction Type:Provider Instructions for Treatment How to access health informa tion online Indication:BMI 27.0-27.9,adult Start:12-Jun-2018 Instruction Type:Patient Education How to access health informa tion online - Detail Indication:BMI 27.0-27.9,adult Start:12-Jun-2018 Instruction Type:Patient Education Patient Instructions Indication:BMI 27.0-27.9,adult Start:12-Jun-2018 Instruction Type:Provider Instructions for Treatment How to access health informa tion online Indication:Smoker Start:25-Apr-2018 Instruction Type:Patient Education How to access health informa tion online - Detail Indication:Smoker Start:25-Apr-2018 Instruction Type:Patient Education Patient Instructions Indication:Smoker Start:25-Apr-2018 Instruction Type:Provider Instructions for Treatment How to access health informa tion online Indication:Current nonsmoker Start:17-Apr-2018 Instruction Type:Patient Education How to access health informa tion online - Detail Indication:Current nonsmoker Start:17-Apr-2018 Instruction Type:Patient Education Patient Instructions Indication:Current nonsmoker Start:17-Apr-2018 Instruction Type:Provider Instructions for Treatment How to access health informa tion online Indication:Current nonsmoker Start:19-Dec-2017 Instruction Type:Patient Education How to access health informa tion online - Detail Indication:Current nonsmoker Start:19-Dec-2017 Instruction Type:Patient Education Patient Instructions Indication:Current nonsmoker Start:19-Dec-2017 Instruction Type:Provider Instructions for Treatment How to access health informa tion online Indication:Current nonsmoker Start:27-Nov-2017 Instruction Type:Patient Education How to access health informa tion online - Detail Indication:Current nonsmoker Start:27-Nov-2017 Instruction Type:Patient Education Patient Instructions Indication:Current nonsmoker Start:27-Nov-2017 Instruction Type:Provider Instructions for Treatment How to access health informa tion online Indication:BMI 28.0-28.9,adult Start:14-Nov-2017 Instruction Type:Patient Education How to access health informa tion online - Detail Indication:BMI 28.0-28.9,adult Start:14-Nov-2017 Instruction Type:Patient Education Patient Instructions Indication:Cough Start:14-Nov-2017 Instruction Type:Provider Instructions for Treatment How to access health informa tion online Indication:BMI 28.0-28.9,adult Start:05-Nov-2017 Instruction Type:Patient Education How to access health informa tion online - Detail Indication:BMI 28.0-28.9,adult Start:05-Nov-2017 Instruction Type:Patient Education Patient Instructions Indication:BMI 28.0-28.9,adult Start:05-Nov-2017 Instruction Type:Provider Instructions for Treatment How to access health informa tion online Indication:Current nonsmoker Start:27-Aug-2017 Instruction Type:Patient Education How to access health informa tion online - Detail Indication:Current nonsmoker Start:27-Aug-2017 Instruction Type:Patient Education Patient Instructions Indication:Cough Start:27-Aug-2017 Instruction Type:Provider Instructions for Treatment How to access health informa tion online Indication:BMI 28.0-28.9,adult Start:11-Oct-2016 Instruction Type:Patient Education How to access health informa tion online - Detail Indication:BMI 28.0-28.9,adult Start:11-Oct-2016 Instruction Type:Patient Education Patient Instructions Indication:BMI 28.0-28.9,adult Start:11-Oct-2016 Instruction Type:Provider Instructions for Treatment How to access health informa tion online Indication:Controlled diabetes mellitus Start:29-Dec-2015 Instruction Type:Patient Education How to access health informa tion online - Detail Indication:Controlled diabetes mellitus Start:29-Dec-2015 Instruction Type:Patient Education Patient Instructions Indication:Controlled diabetes mellitus Start:29-Dec-2015 Instruction Type:Provider Instructions for Treatment How to access health informa tion online Indication:CAD (coronary artery disease) Start:26-Sep-2015 Instruction Type:Patient Education How to access health informa tion online - Detail Indication:CAD (coronary artery disease) Start:26-Sep-2015 Instruction Type:Patient Education Patient Instructions Indication:CAD (coronary artery disease) Start:26-Sep-2015 Instruction Type:Provider Instructions for Treatment How to access health informa tion online Indication:Hypertension, essential, benign Start:23-Jun-2015 Instruction Type:Patient Education How to access health informa tion online - Detail Indication:Hypertension, essential, benign Start:23-Jun-2015 Instruction Type:Patient Education Patient Instructions Indication:Hypertension, essential, benign Start:23-Jun-2015 Instruction Type:Provider Instructions for Treatment How to access health informa tion online - Detail Indication:Anxiety Start:21-Mar-2015 Instruction Type:Patient Education Patient Instructions Indication:Anxiety Start:21-Mar-2015 Instruction Type:Provider Instructions for Treatment Patient Instructions Indication:Abnormal lung sounds Start:03-Nov-2012 Instruction Type:Provider Instructions for Treatment Patient Instructions Indication:Asthma Start:08-May-2012 Instruction Type:Provider Instructions for Treatment Patient Instructionsset up m edcial visit in 2 weeks adn come fasting bring bp diaries - Indication:Encounter for Medicare annual wellness exam Start:24-Apr-2012 Instruction Type:Provider Instructions for Treatment Patient Instructions Indication:Anxiety Start:24-Apr-2012 Instruction Type:Provider Instructions for Treatment Name Dates Details How to access health informa tion online Indication:Non-smoker Start:11-Jun-2019 Instruction Type:Patient Education How to access health informa tion online - Detail Indication:Non-smoker Start:11-Jun-2019 Instruction Type:Patient Education Patient Instructions Indication:Non-smoker Start:11-Jun-2019 Instruction Type:Provider Instructions for Treatment How to access health informa tion online Indication:Non-smoker Start:30-Apr-2019 Instruction Type:Patient Education How to access health informa tion online - Detail Indication:Non-smoker Start:30-Apr-2019 Instruction Type:Patient Education Patient Instructions Indication:Non-smoker Start:30-Apr-2019 Instruction Type:Provider Instructions for Treatment How to access health informa tion online Indication:Ceruminosis, right (Renamed from Excessive cerumen in ear canal, right) Start:23-Dec-2018 Instruction Type:Patient Education How to access health informa tion online - Detail Indication:Ceruminosis, right (Renamed from Excessive cerumen in ear canal, right) Start:23-Dec-2018 Instruction Type:Patient Education Patient Instructions Indication:Ceruminosis, right (Renamed from Excessive cerumen in ear canal, right) Start:23-Dec-2018 Instruction Type:Provider Instructions for Treatment How to access health informa tion online Indication:Non-smoker Start:19-Dec-2018 Instruction Type:Patient Education How to access health informa tion online - Detail Indication:Non-smoker Start:19-Dec-2018 Instruction Type:Patient Education Patient Instructions Indication:Non-smoker Start:19-Dec-2018 Instruction Type:Provider Instructions for Treatment cardiovascular counseling Indication:CAD (coronary artery disease) Start:04-Dec-2018 Instruction Type:Provider Instructions for Treatment How to access health informa tion online Indication:Non-smoker Start:04-Dec-2018 Instruction Type:Patient Education How to access health informa tion online - Detail Indication:Non-smoker Start:04-Dec-2018 Instruction Type:Patient Education Patient Instructions Indication:Non-smoker Start:04-Dec-2018 Instruction Type:Provider Instructions for Treatment How to access health informa tion online Indication:Non-smoker Start:28-Aug-2018 Instruction Type:Patient Education How to access health informa tion online - Detail Indication:Non-smoker Start:28-Aug-2018 Instruction Type:Patient Education Patient Instructions Indication:Non-smoker Start:28-Aug-2018 Instruction Type:Provider Instructions for Treatment How to access health informa tion online Indication:BMI 27.0-27.9,adult Start:12-Jun-2018 Instruction Type:Patient Education How to access health informa tion online - Detail Indication:BMI 27.0-27.9,adult Start:12-Jun-2018 Instruction Type:Patient Education Patient Instructions Indication:BMI 27.0-27.9,adult Start:12-Jun-2018 Instruction Type:Provider Instructions for Treatment How to access health informa tion online Indication:Smoker Start:25-Apr-2018 Instruction Type:Patient Education How to access health informa tion online - Detail Indication:Smoker Start:25-Apr-2018 Instruction Type:Patient Education Patient Instructions Indication:Smoker Start:25-Apr-2018 Instruction Type:Provider Instructions for Treatment How to access health informa tion online Indication:Current nonsmoker Start:17-Apr-2018 Instruction Type:Patient Education How to access health informa tion online - Detail Indication:Current nonsmoker Start:17-Apr-2018 Instruction Type:Patient Education Patient Instructions Indication:Current nonsmoker Start:17-Apr-2018 Instruction Type:Provider Instructions for Treatment How to access health informa tion online Indication:Current nonsmoker Start:19-Dec-2017 Instruction Type:Patient Education How to access health informa tion online - Detail Indication:Current nonsmoker Start:19-Dec-2017 Instruction Type:Patient Education Patient Instructions Indication:Current nonsmoker Start:19-Dec-2017 Instruction Type:Provider Instructions for Treatment How to access health informa tion online Indication:Current nonsmoker Start:27-Nov-2017 Instruction Type:Patient Education How to access health informa tion online - Detail Indication:Current nonsmoker Start:27-Nov-2017 Instruction Type:Patient Education Patient Instructions Indication:Current nonsmoker Start:27-Nov-2017 Instruction Type:Provider Instructions for Treatment How to access health informa tion online Indication:BMI 28.0-28.9,adult Start:14-Nov-2017 Instruction Type:Patient Education How to access health informa tion online - Detail Indication:BMI 28.0-28.9,adult Start:14-Nov-2017 Instruction Type:Patient Education Patient Instructions Indication:Cough Start:14-Nov-2017 Instruction Type:Provider Instructions for Treatment How to access health informa tion online Indication:BMI 28.0-28.9,adult Start:05-Nov-2017 Instruction Type:Patient Education How to access health informa tion online - Detail Indication:BMI 28.0-28.9,adult Start:05-Nov-2017 Instruction Type:Patient Education Patient Instructions Indication:BMI 28.0-28.9,adult Start:05-Nov-2017 Instruction Type:Provider Instructions for Treatment How to access health informa tion online Indication:Current nonsmoker Start:27-Aug-2017 Instruction Type:Patient Education How to access health informa tion online - Detail Indication:Current nonsmoker Start:27-Aug-2017 Instruction Type:Patient Education Patient Instructions Indication:Cough Start:27-Aug-2017 Instruction Type:Provider Instructions for Treatment How to access health informa tion online Indication:BMI 28.0-28.9,adult Start:11-Oct-2016 Instruction Type:Patient Education How to access health informa tion online - Detail Indication:BMI 28.0-28.9,adult Start:11-Oct-2016 Instruction Type:Patient Education Patient Instructions Indication:BMI 28.0-28.9,adult Start:11-Oct-2016 Instruction Type:Provider Instructions for Treatment How to access health informa tion online Indication:Controlled diabetes mellitus Start:29-Dec-2015 Instruction Type:Patient Education How to access health informa tion online - Detail Indication:Controlled diabetes mellitus Start:29-Dec-2015 Instruction Type:Patient Education Patient Instructions Indication:Controlled diabetes mellitus Start:29-Dec-2015 Instruction Type:Provider Instructions for Treatment How to access health informa tion online Indication:CAD (coronary artery disease) Start:26-Sep-2015 Instruction Type:Patient Education How to access health informa tion online - Detail Indication:CAD (coronary artery disease) Start:26-Sep-2015 Instruction Type:Patient Education Patient Instructions Indication:CAD (coronary artery disease) Start:26-Sep-2015 Instruction Type:Provider Instructions for Treatment How to access health informa tion online Indication:Hypertension, essential, benign Start:23-Jun-2015 Instruction Type:Patient Education How to access health informa tion online - Detail Indication:Hypertension, essential, benign Start:23-Jun-2015 Instruction Type:Patient Education Patient Instructions Indication:Hypertension, essential, benign Start:23-Jun-2015 Instruction Type:Provider Instructions for Treatment How to access health informa tion online - Detail Indication:Anxiety Start:21-Mar-2015 Instruction Type:Patient Education Patient Instructions Indication:Anxiety Start:21-Mar-2015 Instruction Type:Provider Instructions for Treatment Patient Instructions Indication:Abnormal lung sounds Start:03-Nov-2012 Instruction Type:Provider Instructions for Treatment Patient Instructions Indication:Asthma Start:08-May-2012 Instruction Type:Provider Instructions for Treatment Patient Instructionsset up m edcial visit in 2 weeks adn come fasting bring bp diaries - Indication:Encounter for Medicare annual wellness exam Start:24-Apr-2012 Instruction Type:Provider Instructions for Treatment Patient Instructions Indication:Anxiety Start:24-Apr-2012 Instruction Type:Provider Instructions for Treatment Name Dates Details How to access health informa tion online Indication:BMI 26.0-26.9,adult Start:02-Jul-2019 Instruction Type:Patient Education Patient Instructions Indication:BMI 26.0-26.9,adult Start:02-Jul-2019 Instruction Type:Provider Instructions for Treatment How to access health informa tion online Indication:Non-smoker Start:11-Jun-2019 Instruction Type:Patient Education How to access health informa tion online - Detail Indication:Non-smoker Start:11-Jun-2019 Instruction Type:Patient Education Patient Instructions Indication:Non-smoker Start:11-Jun-2019 Instruction Type:Provider Instructions for Treatment How to access health informa tion online Indication:Non-smoker Start:30-Apr-2019 Instruction Type:Patient Education How to access health informa tion online - Detail Indication:Non-smoker Start:30-Apr-2019 Instruction Type:Patient Education Patient Instructions Indication:Non-smoker Start:30-Apr-2019 Instruction Type:Provider Instructions for Treatment How to access health informa tion online Indication:Ceruminosis, right (Renamed from Excessive cerumen in ear canal, right) Start:23-Dec-2018 Instruction Type:Patient Education How to access health informa tion online - Detail Indication:Ceruminosis, right (Renamed from Excessive cerumen in ear canal, right) Start:23-Dec-2018 Instruction Type:Patient Education Patient Instructions Indication:Ceruminosis, right (Renamed from Excessive cerumen in ear canal, right) Start:23-Dec-2018 Instruction Type:Provider Instructions for Treatment How to access health informa tion online Indication:Non-smoker Start:19-Dec-2018 Instruction Type:Patient Education How to access health informa tion online - Detail Indication:Non-smoker Start:19-Dec-2018 Instruction Type:Patient Education Patient Instructions Indication:Non-smoker Start:19-Dec-2018 Instruction Type:Provider Instructions for Treatment cardiovascular counseling Indication:CAD (coronary artery disease) Start:04-Dec-2018 Instruction Type:Provider Instructions for Treatment How to access health informa tion online Indication:Non-smoker Start:04-Dec-2018 Instruction Type:Patient Education How to access health informa tion online - Detail Indication:Non-smoker Start:04-Dec-2018 Instruction Type:Patient Education Patient Instructions Indication:Non-smoker Start:04-Dec-2018 Instruction Type:Provider Instructions for Treatment How to access health informa tion online Indication:Non-smoker Start:28-Aug-2018 Instruction Type:Patient Education How to access health informa tion online - Detail Indication:Non-smoker Start:28-Aug-2018 Instruction Type:Patient Education Patient Instructions Indication:Non-smoker Start:28-Aug-2018 Instruction Type:Provider Instructions for Treatment How to access health informa tion online Indication:BMI 27.0-27.9,adult Start:12-Jun-2018 Instruction Type:Patient Education How to access health informa tion online - Detail Indication:BMI 27.0-27.9,adult Start:12-Jun-2018 Instruction Type:Patient Education Patient Instructions Indication:BMI 27.0-27.9,adult Start:12-Jun-2018 Instruction Type:Provider Instructions for Treatment How to access health informa tion online Indication:Smoker Start:25-Apr-2018 Instruction Type:Patient Education How to access health informa tion online - Detail Indication:Smoker Start:25-Apr-2018 Instruction Type:Patient Education Patient Instructions Indication:Smoker Start:25-Apr-2018 Instruction Type:Provider Instructions for Treatment How to access health informa tion online Indication:Current nonsmoker Start:17-Apr-2018 Instruction Type:Patient Education How to access health informa tion online - Detail Indication:Current nonsmoker Start:17-Apr-2018 Instruction Type:Patient Education Patient Instructions Indication:Current nonsmoker Start:17-Apr-2018 Instruction Type:Provider Instructions for Treatment How to access health informa tion online Indication:Current nonsmoker Start:19-Dec-2017 Instruction Type:Patient Education How to access health informa tion online - Detail Indication:Current nonsmoker Start:19-Dec-2017 Instruction Type:Patient Education Patient Instructions Indication:Current nonsmoker Start:19-Dec-2017 Instruction Type:Provider Instructions for Treatment How to access health informa tion online Indication:Current nonsmoker Start:27-Nov-2017 Instruction Type:Patient Education How to access health informa tion online - Detail Indication:Current nonsmoker Start:27-Nov-2017 Instruction Type:Patient Education Patient Instructions Indication:Current nonsmoker Start:27-Nov-2017 Instruction Type:Provider Instructions for Treatment How to access health informa tion online Indication:BMI 28.0-28.9,adult Start:14-Nov-2017 Instruction Type:Patient Education How to access health informa tion online - Detail Indication:BMI 28.0-28.9,adult Start:14-Nov-2017 Instruction Type:Patient Education Patient Instructions Indication:Cough Start:14-Nov-2017 Instruction Type:Provider Instructions for Treatment How to access health informa tion online Indication:BMI 28.0-28.9,adult Start:05-Nov-2017 Instruction Type:Patient Education How to access health informa tion online - Detail Indication:BMI 28.0-28.9,adult Start:05-Nov-2017 Instruction Type:Patient Education Patient Instructions Indication:BMI 28.0-28.9,adult Start:05-Nov-2017 Instruction Type:Provider Instructions for Treatment How to access health informa tion online Indication:Current nonsmoker Start:27-Aug-2017 Instruction Type:Patient Education How to access health informa tion online - Detail Indication:Current nonsmoker Start:27-Aug-2017 Instruction Type:Patient Education Patient Instructions Indication:Cough Start:27-Aug-2017 Instruction Type:Provider Instructions for Treatment How to access health informa tion online Indication:BMI 28.0-28.9,adult Start:11-Oct-2016 Instruction Type:Patient Education How to access health informa tion online - Detail Indication:BMI 28.0-28.9,adult Start:11-Oct-2016 Instruction Type:Patient Education Patient Instructions Indication:BMI 28.0-28.9,adult Start:11-Oct-2016 Instruction Type:Provider Instructions for Treatment How to access health informa tion online Indication:Controlled diabetes mellitus Start:29-Dec-2015 Instruction Type:Patient Education How to access health informa tion online - Detail Indication:Controlled diabetes mellitus Start:29-Dec-2015 Instruction Type:Patient Education Patient Instructions Indication:Controlled diabetes mellitus Start:29-Dec-2015 Instruction Type:Provider Instructions for Treatment How to access health informa tion online Indication:CAD (coronary artery disease) Start:26-Sep-2015 Instruction Type:Patient Education How to access health informa tion online - Detail Indication:CAD (coronary artery disease) Start:26-Sep-2015 Instruction Type:Patient Education Patient Instructions Indication:CAD (coronary artery disease) Start:26-Sep-2015 Instruction Type:Provider Instructions for Treatment How to access health informa tion online Indication:Hypertension, essential, benign Start:23-Jun-2015 Instruction Type:Patient Education How to access health informa tion online - Detail Indication:Hypertension, essential, benign Start:23-Jun-2015 Instruction Type:Patient Education Patient Instructions Indication:Hypertension, essential, benign Start:23-Jun-2015 Instruction Type:Provider Instructions for Treatment How to access health informa tion online - Detail Indication:Anxiety Start:21-Mar-2015 Instruction Type:Patient Education Patient Instructions Indication:Anxiety Start:21-Mar-2015 Instruction Type:Provider Instructions for Treatment Patient Instructions Indication:Abnormal lung sounds Start:03-Nov-2012 Instruction Type:Provider Instructions for Treatment Patient Instructions Indication:Asthma Start:08-May-2012 Instruction Type:Provider Instructions for Treatment Patient Instructionsset up m edcial visit in 2 weeks adn come fasting bring bp diaries - Indication:Encounter for Medicare annual wellness exam Start:24-Apr-2012 Instruction Type:Provider Instructions for Treatment Patient Instructions Indication:Anxiety Start:24-Apr-2012 Instruction Type:Provider Instructions for Treatment Name Dates Details How to access health informa tion online Indication:Non-smoker Start:14-Jul-2019 Instruction Type:Patient Education How to access health informa tion online - Detail Indication:Non-smoker Start:14-Jul-2019 Instruction Type:Patient Education Patient Instructions Indication:Non-smoker Start:14-Jul-2019 Instruction Type:Provider Instructions for Treatment How to access health informa tion online Indication:BMI 26.0-26.9,adult Start:02-Jul-2019 Instruction Type:Patient Education Patient Instructions Indication:BMI 26.0-26.9,adult Start:02-Jul-2019 Instruction Type:Provider Instructions for Treatment How to access health informa tion online Indication:Non-smoker Start:11-Jun-2019 Instruction Type:Patient Education How to access health informa tion online - Detail Indication:Non-smoker Start:11-Jun-2019 Instruction Type:Patient Education Patient Instructions Indication:Non-smoker Start:11-Jun-2019 Instruction Type:Provider Instructions for Treatment How to access health informa tion online Indication:Non-smoker Start:30-Apr-2019 Instruction Type:Patient Education How to access health informa tion online - Detail Indication:Non-smoker Start:30-Apr-2019 Instruction Type:Patient Education Patient Instructions Indication:Non-smoker Start:30-Apr-2019 Instruction Type:Provider Instructions for Treatment How to access health informa tion online Indication:Ceruminosis, right (Renamed from Excessive cerumen in ear canal, right) Start:23-Dec-2018 Instruction Type:Patient Education How to access health informa tion online - Detail Indication:Ceruminosis, right (Renamed from Excessive cerumen in ear canal, right) Start:23-Dec-2018 Instruction Type:Patient Education Patient Instructions Indication:Ceruminosis, right (Renamed from Excessive cerumen in ear canal, right) Start:23-Dec-2018 Instruction Type:Provider Instructions for Treatment How to access health informa tion online Indication:Non-smoker Start:19-Dec-2018 Instruction Type:Patient Education How to access health informa tion online - Detail Indication:Non-smoker Start:19-Dec-2018 Instruction Type:Patient Education Patient Instructions Indication:Non-smoker Start:19-Dec-2018 Instruction Type:Provider Instructions for Treatment cardiovascular counseling Indication:CAD (coronary artery disease) Start:04-Dec-2018 Instruction Type:Provider Instructions for Treatment How to access health informa tion online Indication:Non-smoker Start:04-Dec-2018 Instruction Type:Patient Education How to access health informa tion online - Detail Indication:Non-smoker Start:04-Dec-2018 Instruction Type:Patient Education Patient Instructions Indication:Non-smoker Start:04-Dec-2018 Instruction Type:Provider Instructions for Treatment How to access health informa tion online Indication:Non-smoker Start:28-Aug-2018 Instruction Type:Patient Education How to access health informa tion online - Detail Indication:Non-smoker Start:28-Aug-2018 Instruction Type:Patient Education Patient Instructions Indication:Non-smoker Start:28-Aug-2018 Instruction Type:Provider Instructions for Treatment How to access health informa tion online Indication:BMI 27.0-27.9,adult Start:12-Jun-2018 Instruction Type:Patient Education How to access health informa tion online - Detail Indication:BMI 27.0-27.9,adult Start:12-Jun-2018 Instruction Type:Patient Education Patient Instructions Indication:BMI 27.0-27.9,adult Start:12-Jun-2018 Instruction Type:Provider Instructions for Treatment How to access health informa tion online Indication:Smoker Start:25-Apr-2018 Instruction Type:Patient Education How to access health informa tion online - Detail Indication:Smoker Start:25-Apr-2018 Instruction Type:Patient Education Patient Instructions Indication:Smoker Start:25-Apr-2018 Instruction Type:Provider Instructions for Treatment How to access health informa tion online Indication:Current nonsmoker Start:17-Apr-2018 Instruction Type:Patient Education How to access health informa tion online - Detail Indication:Current nonsmoker Start:17-Apr-2018 Instruction Type:Patient Education Patient Instructions Indication:Current nonsmoker Start:17-Apr-2018 Instruction Type:Provider Instructions for Treatment How to access health informa tion online Indication:Current nonsmoker Start:19-Dec-2017 Instruction Type:Patient Education How to access health informa tion online - Detail Indication:Current nonsmoker Start:19-Dec-2017 Instruction Type:Patient Education Patient Instructions Indication:Current nonsmoker Start:19-Dec-2017 Instruction Type:Provider Instructions for Treatment How to access health informa tion online Indication:Current nonsmoker Start:27-Nov-2017 Instruction Type:Patient Education How to access health informa tion online - Detail Indication:Current nonsmoker Start:27-Nov-2017 Instruction Type:Patient Education Patient Instructions Indication:Current nonsmoker Start:27-Nov-2017 Instruction Type:Provider Instructions for Treatment How to access health informa tion online Indication:BMI 28.0-28.9,adult Start:14-Nov-2017 Instruction Type:Patient Education How to access health informa tion online - Detail Indication:BMI 28.0-28.9,adult Start:14-Nov-2017 Instruction Type:Patient Education Patient Instructions Indication:Cough Start:14-Nov-2017 Instruction Type:Provider Instructions for Treatment How to access health informa tion online Indication:BMI 28.0-28.9,adult Start:05-Nov-2017 Instruction Type:Patient Education How to access health informa tion online - Detail Indication:BMI 28.0-28.9,adult Start:05-Nov-2017 Instruction Type:Patient Education Patient Instructions Indication:BMI 28.0-28.9,adult Start:05-Nov-2017 Instruction Type:Provider Instructions for Treatment How to access health informa tion online Indication:Current nonsmoker Start:27-Aug-2017 Instruction Type:Patient Education How to access health informa tion online - Detail Indication:Current nonsmoker Start:27-Aug-2017 Instruction Type:Patient Education Patient Instructions Indication:Cough Start:27-Aug-2017 Instruction Type:Provider Instructions for Treatment How to access health informa tion online Indication:BMI 28.0-28.9,adult Start:11-Oct-2016 Instruction Type:Patient Education How to access health informa tion online - Detail Indication:BMI 28.0-28.9,adult Start:11-Oct-2016 Instruction Type:Patient Education Patient Instructions Indication:BMI 28.0-28.9,adult Start:11-Oct-2016 Instruction Type:Provider Instructions for Treatment How to access health informa tion online Indication:Controlled diabetes mellitus Start:29-Dec-2015 Instruction Type:Patient Education How to access health informa tion online - Detail Indication:Controlled diabetes mellitus Start:29-Dec-2015 Instruction Type:Patient Education Patient Instructions Indication:Controlled diabetes mellitus Start:29-Dec-2015 Instruction Type:Provider Instructions for Treatment How to access health informa tion online Indication:CAD (coronary artery disease) Start:26-Sep-2015 Instruction Type:Patient Education How to access health informa tion online - Detail Indication:CAD (coronary artery disease) Start:26-Sep-2015 Instruction Type:Patient Education Patient Instructions Indication:CAD (coronary artery disease) Start:26-Sep-2015 Instruction Type:Provider Instructions for Treatment How to access health informa tion online Indication:Hypertension, essential, benign Start:23-Jun-2015 Instruction Type:Patient Education How to access health informa tion online - Detail Indication:Hypertension, essential, benign Start:23-Jun-2015 Instruction Type:Patient Education Patient Instructions Indication:Hypertension, essential, benign Start:23-Jun-2015 Instruction Type:Provider Instructions for Treatment How to access health informa tion online - Detail Indication:Anxiety Start:21-Mar-2015 Instruction Type:Patient Education Patient Instructions Indication:Anxiety Start:21-Mar-2015 Instruction Type:Provider Instructions for Treatment Patient Instructions Indication:Abnormal lung sounds Start:03-Nov-2012 Instruction Type:Provider Instructions for Treatment Patient Instructions Indication:Asthma Start:08-May-2012 Instruction Type:Provider Instructions for Treatment Patient Instructionsset up m edcial visit in 2 weeks adn come fasting bring bp diaries - Indication:Encounter for Medicare annual wellness exam Start:24-Apr-2012 Instruction Type:Provider Instructions for Treatment Patient Instructions Indication:Anxiety Start:24-Apr-2012 Instruction Type:Provider Instructions for Treatment Name Dates Details How to access health informa tion online Indication:Non-smoker Start:14-Jul-2019 Instruction Type:Patient Education How to access health informa tion online - Detail Indication:Non-smoker Start:14-Jul-2019 Instruction Type:Patient Education Patient Instructions Indication:Non-smoker Start:14-Jul-2019 Instruction Type:Provider Instructions for Treatment How to access health informa tion online Indication:BMI 26.0-26.9,adult Start:02-Jul-2019 Instruction Type:Patient Education Patient Instructions Indication:BMI 26.0-26.9,adult Start:02-Jul-2019 Instruction Type:Provider Instructions for Treatment How to access health informa tion online Indication:Non-smoker Start:11-Jun-2019 Instruction Type:Patient Education How to access health informa tion online - Detail Indication:Non-smoker Start:11-Jun-2019 Instruction Type:Patient Education Patient Instructions Indication:Non-smoker Start:11-Jun-2019 Instruction Type:Provider Instructions for Treatment How to access health informa tion online Indication:Non-smoker Start:30-Apr-2019 Instruction Type:Patient Education How to access health informa tion online - Detail Indication:Non-smoker Start:30-Apr-2019 Instruction Type:Patient Education Patient Instructions Indication:Non-smoker Start:30-Apr-2019 Instruction Type:Provider Instructions for Treatment How to access health informa tion online Indication:Ceruminosis, right (Renamed from Excessive cerumen in ear canal, right) Start:23-Dec-2018 Instruction Type:Patient Education How to access health informa tion online - Detail Indication:Ceruminosis, right (Renamed from Excessive cerumen in ear canal, right) Start:23-Dec-2018 Instruction Type:Patient Education Patient Instructions Indication:Ceruminosis, right (Renamed from Excessive cerumen in ear canal, right) Start:23-Dec-2018 Instruction Type:Provider Instructions for Treatment How to access health informa tion online Indication:Non-smoker Start:19-Dec-2018 Instruction Type:Patient Education How to access health informa tion online - Detail Indication:Non-smoker Start:19-Dec-2018 Instruction Type:Patient Education Patient Instructions Indication:Non-smoker Start:19-Dec-2018 Instruction Type:Provider Instructions for Treatment cardiovascular counseling Indication:CAD (coronary artery disease) Start:04-Dec-2018 Instruction Type:Provider Instructions for Treatment How to access health informa tion online Indication:Non-smoker Start:04-Dec-2018 Instruction Type:Patient Education How to access health informa tion online - Detail Indication:Non-smoker Start:04-Dec-2018 Instruction Type:Patient Education Patient Instructions Indication:Non-smoker Start:04-Dec-2018 Instruction Type:Provider Instructions for Treatment How to access health informa tion online Indication:Non-smoker Start:28-Aug-2018 Instruction Type:Patient Education How to access health informa tion online - Detail Indication:Non-smoker Start:28-Aug-2018 Instruction Type:Patient Education Patient Instructions Indication:Non-smoker Start:28-Aug-2018 Instruction Type:Provider Instructions for Treatment How to access health informa tion online Indication:BMI 27.0-27.9,adult Start:12-Jun-2018 Instruction Type:Patient Education How to access health informa tion online - Detail Indication:BMI 27.0-27.9,adult Start:12-Jun-2018 Instruction Type:Patient Education Patient Instructions Indication:BMI 27.0-27.9,adult Start:12-Jun-2018 Instruction Type:Provider Instructions for Treatment How to access health informa tion online Indication:Smoker Start:25-Apr-2018 Instruction Type:Patient Education How to access health informa tion online - Detail Indication:Smoker Start:25-Apr-2018 Instruction Type:Patient Education Patient Instructions Indication:Smoker Start:25-Apr-2018 Instruction Type:Provider Instructions for Treatment How to access health informa tion online Indication:Current nonsmoker Start:17-Apr-2018 Instruction Type:Patient Education How to access health informa tion online - Detail Indication:Current nonsmoker Start:17-Apr-2018 Instruction Type:Patient Education Patient Instructions Indication:Current nonsmoker Start:17-Apr-2018 Instruction Type:Provider Instructions for Treatment How to access health informa tion online Indication:Current nonsmoker Start:19-Dec-2017 Instruction Type:Patient Education How to access health informa tion online - Detail Indication:Current nonsmoker Start:19-Dec-2017 Instruction Type:Patient Education Patient Instructions Indication:Current nonsmoker Start:19-Dec-2017 Instruction Type:Provider Instructions for Treatment How to access health informa tion online Indication:Current nonsmoker Start:27-Nov-2017 Instruction Type:Patient Education How to access health informa tion online - Detail Indication:Current nonsmoker Start:27-Nov-2017 Instruction Type:Patient Education Patient Instructions Indication:Current nonsmoker Start:27-Nov-2017 Instruction Type:Provider Instructions for Treatment How to access health informa tion online Indication:BMI 28.0-28.9,adult Start:14-Nov-2017 Instruction Type:Patient Education How to access health informa tion online - Detail Indication:BMI 28.0-28.9,adult Start:14-Nov-2017 Instruction Type:Patient Education Patient Instructions Indication:Cough Start:14-Nov-2017 Instruction Type:Provider Instructions for Treatment How to access health informa tion online Indication:BMI 28.0-28.9,adult Start:05-Nov-2017 Instruction Type:Patient Education How to access health informa tion online - Detail Indication:BMI 28.0-28.9,adult Start:05-Nov-2017 Instruction Type:Patient Education Patient Instructions Indication:BMI 28.0-28.9,adult Start:05-Nov-2017 Instruction Type:Provider Instructions for Treatment How to access health informa tion online Indication:Current nonsmoker Start:27-Aug-2017 Instruction Type:Patient Education How to access health informa tion online - Detail Indication:Current nonsmoker Start:27-Aug-2017 Instruction Type:Patient Education Patient Instructions Indication:Cough Start:27-Aug-2017 Instruction Type:Provider Instructions for Treatment How to access health informa tion online Indication:BMI 28.0-28.9,adult Start:11-Oct-2016 Instruction Type:Patient Education How to access health informa tion online - Detail Indication:BMI 28.0-28.9,adult Start:11-Oct-2016 Instruction Type:Patient Education Patient Instructions Indication:BMI 28.0-28.9,adult Start:11-Oct-2016 Instruction Type:Provider Instructions for Treatment How to access health informa tion online Indication:Controlled diabetes mellitus Start:29-Dec-2015 Instruction Type:Patient Education How to access health informa tion online - Detail Indication:Controlled diabetes mellitus Start:29-Dec-2015 Instruction Type:Patient Education Patient Instructions Indication:Controlled diabetes mellitus Start:29-Dec-2015 Instruction Type:Provider Instructions for Treatment How to access health informa tion online Indication:CAD (coronary artery disease) Start:26-Sep-2015 Instruction Type:Patient Education How to access health informa tion online - Detail Indication:CAD (coronary artery disease) Start:26-Sep-2015 Instruction Type:Patient Education Patient Instructions Indication:CAD (coronary artery disease) Start:26-Sep-2015 Instruction Type:Provider Instructions for Treatment How to access health informa tion online Indication:Hypertension, essential, benign Start:23-Jun-2015 Instruction Type:Patient Education How to access health informa tion online - Detail Indication:Hypertension, essential, benign Start:23-Jun-2015 Instruction Type:Patient Education Patient Instructions Indication:Hypertension, essential, benign Start:23-Jun-2015 Instruction Type:Provider Instructions for Treatment How to access health informa tion online - Detail Indication:Anxiety Start:21-Mar-2015 Instruction Type:Patient Education Patient Instructions Indication:Anxiety Start:21-Mar-2015 Instruction Type:Provider Instructions for Treatment Patient Instructions Indication:Abnormal lung sounds Start:03-Nov-2012 Instruction Type:Provider Instructions for Treatment Patient Instructions Indication:Asthma Start:08-May-2012 Instruction Type:Provider Instructions for Treatment Patient Instructionsset up m edcial visit in 2 weeks adn come fasting bring bp diaries - Indication:Encounter for Medicare annual wellness exam Start:24-Apr-2012 Instruction Type:Provider Instructions for Treatment Patient Instructions Indication:Anxiety Start:24-Apr-2012 Instruction Type:Provider Instructions for Treatment Name Dates Details How to access health informa tion online Indication:Non-smoker Start:14-Jul-2019 Instruction Type:Patient Education How to access health informa tion online - Detail Indication:Non-smoker Start:14-Jul-2019 Instruction Type:Patient Education Patient Instructions Indication:Non-smoker Start:14-Jul-2019 Instruction Type:Provider Instructions for Treatment How to access health informa tion online Indication:BMI 26.0-26.9,adult Start:02-Jul-2019 Instruction Type:Patient Education Patient Instructions Indication:BMI 26.0-26.9,adult Start:02-Jul-2019 Instruction Type:Provider Instructions for Treatment How to access health informa tion online Indication:Non-smoker Start:11-Jun-2019 Instruction Type:Patient Education How to access health informa tion online - Detail Indication:Non-smoker Start:11-Jun-2019 Instruction Type:Patient Education Patient Instructions Indication:Non-smoker Start:11-Jun-2019 Instruction Type:Provider Instructions for Treatment How to access health informa tion online Indication:Non-smoker Start:30-Apr-2019 Instruction Type:Patient Education How to access health informa tion online - Detail Indication:Non-smoker Start:30-Apr-2019 Instruction Type:Patient Education Patient Instructions Indication:Non-smoker Start:30-Apr-2019 Instruction Type:Provider Instructions for Treatment How to access health informa tion online Indication:Ceruminosis, right (Renamed from Excessive cerumen in ear canal, right) Start:23-Dec-2018 Instruction Type:Patient Education How to access health informa tion online - Detail Indication:Ceruminosis, right (Renamed from Excessive cerumen in ear canal, right) Start:23-Dec-2018 Instruction Type:Patient Education Patient Instructions Indication:Ceruminosis, right (Renamed from Excessive cerumen in ear canal, right) Start:23-Dec-2018 Instruction Type:Provider Instructions for Treatment How to access health informa tion online Indication:Non-smoker Start:19-Dec-2018 Instruction Type:Patient Education How to access health informa tion online - Detail Indication:Non-smoker Start:19-Dec-2018 Instruction Type:Patient Education Patient Instructions Indication:Non-smoker Start:19-Dec-2018 Instruction Type:Provider Instructions for Treatment cardiovascular counseling Indication:CAD (coronary artery disease) Start:04-Dec-2018 Instruction Type:Provider Instructions for Treatment How to access health informa tion online Indication:Non-smoker Start:04-Dec-2018 Instruction Type:Patient Education How to access health informa tion online - Detail Indication:Non-smoker Start:04-Dec-2018 Instruction Type:Patient Education Patient Instructions Indication:Non-smoker Start:04-Dec-2018 Instruction Type:Provider Instructions for Treatment How to access health informa tion online Indication:Non-smoker Start:28-Aug-2018 Instruction Type:Patient Education How to access health informa tion online - Detail Indication:Non-smoker Start:28-Aug-2018 Instruction Type:Patient Education Patient Instructions Indication:Non-smoker Start:28-Aug-2018 Instruction Type:Provider Instructions for Treatment How to access health informa tion online Indication:BMI 27.0-27.9,adult Start:12-Jun-2018 Instruction Type:Patient Education How to access health informa tion online - Detail Indication:BMI 27.0-27.9,adult Start:12-Jun-2018 Instruction Type:Patient Education Patient Instructions Indication:BMI 27.0-27.9,adult Start:12-Jun-2018 Instruction Type:Provider Instructions for Treatment How to access health informa tion online Indication:Smoker Start:25-Apr-2018 Instruction Type:Patient Education How to access health informa tion online - Detail Indication:Smoker Start:25-Apr-2018 Instruction Type:Patient Education Patient Instructions Indication:Smoker Start:25-Apr-2018 Instruction Type:Provider Instructions for Treatment How to access health informa tion online Indication:Current nonsmoker Start:17-Apr-2018 Instruction Type:Patient Education How to access health informa tion online - Detail Indication:Current nonsmoker Start:17-Apr-2018 Instruction Type:Patient Education Patient Instructions Indication:Current nonsmoker Start:17-Apr-2018 Instruction Type:Provider Instructions for Treatment How to access health informa tion online Indication:Current nonsmoker Start:19-Dec-2017 Instruction Type:Patient Education How to access health informa tion online - Detail Indication:Current nonsmoker Start:19-Dec-2017 Instruction Type:Patient Education Patient Instructions Indication:Current nonsmoker Start:19-Dec-2017 Instruction Type:Provider Instructions for Treatment How to access health informa tion online Indication:Current nonsmoker Start:27-Nov-2017 Instruction Type:Patient Education How to access health informa tion online - Detail Indication:Current nonsmoker Start:27-Nov-2017 Instruction Type:Patient Education Patient Instructions Indication:Current nonsmoker Start:27-Nov-2017 Instruction Type:Provider Instructions for Treatment How to access health informa tion online Indication:BMI 28.0-28.9,adult Start:14-Nov-2017 Instruction Type:Patient Education How to access health informa tion online - Detail Indication:BMI 28.0-28.9,adult Start:14-Nov-2017 Instruction Type:Patient Education Patient Instructions Indication:Cough Start:14-Nov-2017 Instruction Type:Provider Instructions for Treatment How to access health informa tion online Indication:BMI 28.0-28.9,adult Start:05-Nov-2017 Instruction Type:Patient Education How to access health informa tion online - Detail Indication:BMI 28.0-28.9,adult Start:05-Nov-2017 Instruction Type:Patient Education Patient Instructions Indication:BMI 28.0-28.9,adult Start:05-Nov-2017 Instruction Type:Provider Instructions for Treatment How to access health informa tion online Indication:Current nonsmoker Start:27-Aug-2017 Instruction Type:Patient Education How to access health informa tion online - Detail Indication:Current nonsmoker Start:27-Aug-2017 Instruction Type:Patient Education Patient Instructions Indication:Cough Start:27-Aug-2017 Instruction Type:Provider Instructions for Treatment How to access health informa tion online Indication:BMI 28.0-28.9,adult Start:11-Oct-2016 Instruction Type:Patient Education How to access health informa tion online - Detail Indication:BMI 28.0-28.9,adult Start:11-Oct-2016 Instruction Type:Patient Education Patient Instructions Indication:BMI 28.0-28.9,adult Start:11-Oct-2016 Instruction Type:Provider Instructions for Treatment How to access health informa tion online Indication:Controlled diabetes mellitus Start:29-Dec-2015 Instruction Type:Patient Education How to access health informa tion online - Detail Indication:Controlled diabetes mellitus Start:29-Dec-2015 Instruction Type:Patient Education Patient Instructions Indication:Controlled diabetes mellitus Start:29-Dec-2015 Instruction Type:Provider Instructions for Treatment How to access health informa tion online Indication:CAD (coronary artery disease) Start:26-Sep-2015 Instruction Type:Patient Education How to access health informa tion online - Detail Indication:CAD (coronary artery disease) Start:26-Sep-2015 Instruction Type:Patient Education Patient Instructions Indication:CAD (coronary artery disease) Start:26-Sep-2015 Instruction Type:Provider Instructions for Treatment How to access health informa tion online Indication:Hypertension, essential, benign Start:23-Jun-2015 Instruction Type:Patient Education How to access health informa tion online - Detail Indication:Hypertension, essential, benign Start:23-Jun-2015 Instruction Type:Patient Education Patient Instructions Indication:Hypertension, essential, benign Start:23-Jun-2015 Instruction Type:Provider Instructions for Treatment How to access health informa tion online - Detail Indication:Anxiety Start:21-Mar-2015 Instruction Type:Patient Education Patient Instructions Indication:Anxiety Start:21-Mar-2015 Instruction Type:Provider Instructions for Treatment Patient Instructions Indication:Abnormal lung sounds Start:03-Nov-2012 Instruction Type:Provider Instructions for Treatment Patient Instructions Indication:Asthma Start:08-May-2012 Instruction Type:Provider Instructions for Treatment Patient Instructionsset up m edcial visit in 2 weeks adn come fasting bring bp diaries - Indication:Encounter for Medicare annual wellness exam Start:24-Apr-2012 Instruction Type:Provider Instructions for Treatment Patient Instructions Indication:Anxiety Start:24-Apr-2012 Instruction Type:Provider Instructions for Treatment Name Dates Details How to access health informa tion online Indication:Non-smoker Start:24-Jun-2020 Instruction Type:Patient Education How to access health informa tion online - Detail Indication:Non-smoker Start:24-Jun-2020 Instruction Type:Patient Education Patient Instructions Indication:Non-smoker Start:24-Jun-2020 Instruction Type:Provider Instructions for Treatment How to access health informa tion online Indication:Non-smoker Start:14-Jul-2019 Instruction Type:Patient Education How to access health informa tion online - Detail Indication:Non-smoker Start:14-Jul-2019 Instruction Type:Patient Education Patient Instructions Indication:Non-smoker Start:14-Jul-2019 Instruction Type:Provider Instructions for Treatment How to access health informa tion online Indication:BMI 26.0-26.9,adult Start:02-Jul-2019 Instruction Type:Patient Education Patient Instructions Indication:BMI 26.0-26.9,adult Start:02-Jul-2019 Instruction Type:Provider Instructions for Treatment How to access health informa tion online Indication:Non-smoker Start:11-Jun-2019 Instruction Type:Patient Education How to access health informa tion online - Detail Indication:Non-smoker Start:11-Jun-2019 Instruction Type:Patient Education Patient Instructions Indication:Non-smoker Start:11-Jun-2019 Instruction Type:Provider Instructions for Treatment How to access health informa tion online Indication:Non-smoker Start:30-Apr-2019 Instruction Type:Patient Education How to access health informa tion online - Detail Indication:Non-smoker Start:30-Apr-2019 Instruction Type:Patient Education Patient Instructions Indication:Non-smoker Start:30-Apr-2019 Instruction Type:Provider Instructions for Treatment How to access health informa tion online Indication:Ceruminosis, right (Renamed from Excessive cerumen in ear canal, right) Start:23-Dec-2018 Instruction Type:Patient Education How to access health informa tion online - Detail Indication:Ceruminosis, right (Renamed from Excessive cerumen in ear canal, right) Start:23-Dec-2018 Instruction Type:Patient Education Patient Instructions Indication:Ceruminosis, right (Renamed from Excessive cerumen in ear canal, right) Start:23-Dec-2018 Instruction Type:Provider Instructions for Treatment How to access health informa tion online Indication:Non-smoker Start:19-Dec-2018 Instruction Type:Patient Education How to access health informa tion online - Detail Indication:Non-smoker Start:19-Dec-2018 Instruction Type:Patient Education Patient Instructions Indication:Non-smoker Start:19-Dec-2018 Instruction Type:Provider Instructions for Treatment cardiovascular counseling Indication:CAD (coronary artery disease) Start:04-Dec-2018 Instruction Type:Provider Instructions for Treatment How to access health informa tion online Indication:Non-smoker Start:04-Dec-2018 Instruction Type:Patient Education How to access health informa tion online - Detail Indication:Non-smoker Start:04-Dec-2018 Instruction Type:Patient Education Patient Instructions Indication:Non-smoker Start:04-Dec-2018 Instruction Type:Provider Instructions for Treatment How to access health informa tion online Indication:Non-smoker Start:28-Aug-2018 Instruction Type:Patient Education How to access health informa tion online - Detail Indication:Non-smoker Start:28-Aug-2018 Instruction Type:Patient Education Patient Instructions Indication:Non-smoker Start:28-Aug-2018 Instruction Type:Provider Instructions for Treatment How to access health informa tion online Indication:BMI 27.0-27.9,adult Start:12-Jun-2018 Instruction Type:Patient Education How to access health informa tion online - Detail Indication:BMI 27.0-27.9,adult Start:12-Jun-2018 Instruction Type:Patient Education Patient Instructions Indication:BMI 27.0-27.9,adult Start:12-Jun-2018 Instruction Type:Provider Instructions for Treatment How to access health informa tion online Indication:Smoker Start:25-Apr-2018 Instruction Type:Patient Education How to access health informa tion online - Detail Indication:Smoker Start:25-Apr-2018 Instruction Type:Patient Education Patient Instructions Indication:Smoker Start:25-Apr-2018 Instruction Type:Provider Instructions for Treatment How to access health informa tion online Indication:Current nonsmoker Start:17-Apr-2018 Instruction Type:Patient Education How to access health informa tion online - Detail Indication:Current nonsmoker Start:17-Apr-2018 Instruction Type:Patient Education Patient Instructions Indication:Current nonsmoker Start:17-Apr-2018 Instruction Type:Provider Instructions for Treatment How to access health informa tion online Indication:Current nonsmoker Start:19-Dec-2017 Instruction Type:Patient Education How to access health informa tion online - Detail Indication:Current nonsmoker Start:19-Dec-2017 Instruction Type:Patient Education Patient Instructions Indication:Current nonsmoker Start:19-Dec-2017 Instruction Type:Provider Instructions for Treatment How to access health informa tion online Indication:Current nonsmoker Start:27-Nov-2017 Instruction Type:Patient Education How to access health informa tion online - Detail Indication:Current nonsmoker Start:27-Nov-2017 Instruction Type:Patient Education Patient Instructions Indication:Current nonsmoker Start:27-Nov-2017 Instruction Type:Provider Instructions for Treatment How to access health informa tion online Indication:BMI 28.0-28.9,adult Start:14-Nov-2017 Instruction Type:Patient Education How to access health informa tion online - Detail Indication:BMI 28.0-28.9,adult Start:14-Nov-2017 Instruction Type:Patient Education Patient Instructions Indication:Cough Start:14-Nov-2017 Instruction Type:Provider Instructions for Treatment How to access health informa tion online Indication:BMI 28.0-28.9,adult Start:05-Nov-2017 Instruction Type:Patient Education How to access health informa tion online - Detail Indication:BMI 28.0-28.9,adult Start:05-Nov-2017 Instruction Type:Patient Education Patient Instructions Indication:BMI 28.0-28.9,adult Start:05-Nov-2017 Instruction Type:Provider Instructions for Treatment How to access health informa tion online Indication:Current nonsmoker Start:27-Aug-2017 Instruction Type:Patient Education How to access health informa tion online - Detail Indication:Current nonsmoker Start:27-Aug-2017 Instruction Type:Patient Education Patient Instructions Indication:Cough Start:27-Aug-2017 Instruction Type:Provider Instructions for Treatment How to access health informa tion online Indication:BMI 28.0-28.9,adult Start:11-Oct-2016 Instruction Type:Patient Education How to access health informa tion online - Detail Indication:BMI 28.0-28.9,adult Start:11-Oct-2016 Instruction Type:Patient Education Patient Instructions Indication:BMI 28.0-28.9,adult Start:11-Oct-2016 Instruction Type:Provider Instructions for Treatment How to access health informa tion online Indication:Controlled diabetes mellitus Start:29-Dec-2015 Instruction Type:Patient Education How to access health informa tion online - Detail Indication:Controlled diabetes mellitus Start:29-Dec-2015 Instruction Type:Patient Education Patient Instructions Indication:Controlled diabetes mellitus Start:29-Dec-2015 Instruction Type:Provider Instructions for Treatment How to access health informa tion online Indication:CAD (coronary artery disease) Start:26-Sep-2015 Instruction Type:Patient Education How to access health informa tion online - Detail Indication:CAD (coronary artery disease) Start:26-Sep-2015 Instruction Type:Patient Education Patient Instructions Indication:CAD (coronary artery disease) Start:26-Sep-2015 Instruction Type:Provider Instructions for Treatment How to access health informa tion online Indication:Hypertension, essential, benign Start:23-Jun-2015 Instruction Type:Patient Education How to access health informa tion online - Detail Indication:Hypertension, essential, benign Start:23-Jun-2015 Instruction Type:Patient Education Patient Instructions Indication:Hypertension, essential, benign Start:23-Jun-2015 Instruction Type:Provider Instructions for Treatment How to access health informa tion online - Detail Indication:Anxiety Start:21-Mar-2015 Instruction Type:Patient Education Patient Instructions Indication:Anxiety Start:21-Mar-2015 Instruction Type:Provider Instructions for Treatment Patient Instructions Indication:Abnormal lung sounds Start:03-Nov-2012 Instruction Type:Provider Instructions for Treatment Patient Instructions Indication:Asthma Start:08-May-2012 Instruction Type:Provider Instructions for Treatment Patient Instructionsset up m edcial visit in 2 weeks adn come fasting bring bp diaries - Indication:Encounter for Medicare annual wellness exam Start:24-Apr-2012 Instruction Type:Provider Instructions for Treatment Patient Instructions Indication:Anxiety Start:24-Apr-2012 Instruction Type:Provider Instructions for Treatment Name Dates Details How to access health informa tion online Indication:Non-smoker Start:24-Jun-2020 Instruction Type:Patient Education How to access health informa tion online - Detail Indication:Non-smoker Start:24-Jun-2020 Instruction Type:Patient Education Patient Instructions Indication:Non-smoker Start:24-Jun-2020 Instruction Type:Provider Instructions for Treatment How to access health informa tion online Indication:Non-smoker Start:14-Jul-2019 Instruction Type:Patient Education How to access health informa tion online - Detail Indication:Non-smoker Start:14-Jul-2019 Instruction Type:Patient Education Patient Instructions Indication:Non-smoker Start:14-Jul-2019 Instruction Type:Provider Instructions for Treatment How to access health informa tion online Indication:BMI 26.0-26.9,adult Start:02-Jul-2019 Instruction Type:Patient Education Patient Instructions Indication:BMI 26.0-26.9,adult Start:02-Jul-2019 Instruction Type:Provider Instructions for Treatment How to access health informa tion online Indication:Non-smoker Start:11-Jun-2019 Instruction Type:Patient Education How to access health informa tion online - Detail Indication:Non-smoker Start:11-Jun-2019 Instruction Type:Patient Education Patient Instructions Indication:Non-smoker Start:11-Jun-2019 Instruction Type:Provider Instructions for Treatment How to access health informa tion online Indication:Non-smoker Start:30-Apr-2019 Instruction Type:Patient Education How to access health informa tion online - Detail Indication:Non-smoker Start:30-Apr-2019 Instruction Type:Patient Education Patient Instructions Indication:Non-smoker Start:30-Apr-2019 Instruction Type:Provider Instructions for Treatment How to access health informa tion online Indication:Ceruminosis, right (Renamed from Excessive cerumen in ear canal, right) Start:23-Dec-2018 Instruction Type:Patient Education How to access health informa tion online - Detail Indication:Ceruminosis, right (Renamed from Excessive cerumen in ear canal, right) Start:23-Dec-2018 Instruction Type:Patient Education Patient Instructions Indication:Ceruminosis, right (Renamed from Excessive cerumen in ear canal, right) Start:23-Dec-2018 Instruction Type:Provider Instructions for Treatment How to access health informa tion online Indication:Non-smoker Start:19-Dec-2018 Instruction Type:Patient Education How to access health informa tion online - Detail Indication:Non-smoker Start:19-Dec-2018 Instruction Type:Patient Education Patient Instructions Indication:Non-smoker Start:19-Dec-2018 Instruction Type:Provider Instructions for Treatment cardiovascular counseling Indication:CAD (coronary artery disease) Start:04-Dec-2018 Instruction Type:Provider Instructions for Treatment How to access health informa tion online Indication:Non-smoker Start:04-Dec-2018 Instruction Type:Patient Education How to access health informa tion online - Detail Indication:Non-smoker Start:04-Dec-2018 Instruction Type:Patient Education Patient Instructions Indication:Non-smoker Start:04-Dec-2018 Instruction Type:Provider Instructions for Treatment How to access health informa tion online Indication:Non-smoker Start:28-Aug-2018 Instruction Type:Patient Education How to access health informa tion online - Detail Indication:Non-smoker Start:28-Aug-2018 Instruction Type:Patient Education Patient Instructions Indication:Non-smoker Start:28-Aug-2018 Instruction Type:Provider Instructions for Treatment How to access health informa tion online Indication:BMI 27.0-27.9,adult Start:12-Jun-2018 Instruction Type:Patient Education How to access health informa tion online - Detail Indication:BMI 27.0-27.9,adult Start:12-Jun-2018 Instruction Type:Patient Education Patient Instructions Indication:BMI 27.0-27.9,adult Start:12-Jun-2018 Instruction Type:Provider Instructions for Treatment How to access health informa tion online Indication:Smoker Start:25-Apr-2018 Instruction Type:Patient Education How to access health informa tion online - Detail Indication:Smoker Start:25-Apr-2018 Instruction Type:Patient Education Patient Instructions Indication:Smoker Start:25-Apr-2018 Instruction Type:Provider Instructions for Treatment How to access health informa tion online Indication:Current nonsmoker Start:17-Apr-2018 Instruction Type:Patient Education How to access health informa tion online - Detail Indication:Current nonsmoker Start:17-Apr-2018 Instruction Type:Patient Education Patient Instructions Indication:Current nonsmoker Start:17-Apr-2018 Instruction Type:Provider Instructions for Treatment How to access health informa tion online Indication:Current nonsmoker Start:19-Dec-2017 Instruction Type:Patient Education How to access health informa tion online - Detail Indication:Current nonsmoker Start:19-Dec-2017 Instruction Type:Patient Education Patient Instructions Indication:Current nonsmoker Start:19-Dec-2017 Instruction Type:Provider Instructions for Treatment How to access health informa tion online Indication:Current nonsmoker Start:27-Nov-2017 Instruction Type:Patient Education How to access health informa tion online - Detail Indication:Current nonsmoker Start:27-Nov-2017 Instruction Type:Patient Education Patient Instructions Indication:Current nonsmoker Start:27-Nov-2017 Instruction Type:Provider Instructions for Treatment How to access health informa tion online Indication:BMI 28.0-28.9,adult Start:14-Nov-2017 Instruction Type:Patient Education How to access health informa tion online - Detail Indication:BMI 28.0-28.9,adult Start:14-Nov-2017 Instruction Type:Patient Education Patient Instructions Indication:Cough Start:14-Nov-2017 Instruction Type:Provider Instructions for Treatment How to access health informa tion online Indication:BMI 28.0-28.9,adult Start:05-Nov-2017 Instruction Type:Patient Education How to access health informa tion online - Detail Indication:BMI 28.0-28.9,adult Start:05-Nov-2017 Instruction Type:Patient Education Patient Instructions Indication:BMI 28.0-28.9,adult Start:05-Nov-2017 Instruction Type:Provider Instructions for Treatment How to access health informa tion online Indication:Current nonsmoker Start:27-Aug-2017 Instruction Type:Patient Education How to access health informa tion online - Detail Indication:Current nonsmoker Start:27-Aug-2017 Instruction Type:Patient Education Patient Instructions Indication:Cough Start:27-Aug-2017 Instruction Type:Provider Instructions for Treatment How to access health informa tion online Indication:BMI 28.0-28.9,adult Start:11-Oct-2016 Instruction Type:Patient Education How to access health informa tion online - Detail Indication:BMI 28.0-28.9,adult Start:11-Oct-2016 Instruction Type:Patient Education Patient Instructions Indication:BMI 28.0-28.9,adult Start:11-Oct-2016 Instruction Type:Provider Instructions for Treatment How to access health informa tion online Indication:Controlled diabetes mellitus Start:29-Dec-2015 Instruction Type:Patient Education How to access health informa tion online - Detail Indication:Controlled diabetes mellitus Start:29-Dec-2015 Instruction Type:Patient Education Patient Instructions Indication:Controlled diabetes mellitus Start:29-Dec-2015 Instruction Type:Provider Instructions for Treatment How to access health informa tion online Indication:CAD (coronary artery disease) Start:26-Sep-2015 Instruction Type:Patient Education How to access health informa tion online - Detail Indication:CAD (coronary artery disease) Start:26-Sep-2015 Instruction Type:Patient Education Patient Instructions Indication:CAD (coronary artery disease) Start:26-Sep-2015 Instruction Type:Provider Instructions for Treatment How to access health informa tion online Indication:Hypertension, essential, benign Start:23-Jun-2015 Instruction Type:Patient Education How to access health informa tion online - Detail Indication:Hypertension, essential, benign Start:23-Jun-2015 Instruction Type:Patient Education Patient Instructions Indication:Hypertension, essential, benign Start:23-Jun-2015 Instruction Type:Provider Instructions for Treatment How to access health informa tion online - Detail Indication:Anxiety Start:21-Mar-2015 Instruction Type:Patient Education Patient Instructions Indication:Anxiety Start:21-Mar-2015 Instruction Type:Provider Instructions for Treatment Patient Instructions Indication:Abnormal lung sounds Start:03-Nov-2012 Instruction Type:Provider Instructions for Treatment Patient Instructions Indication:Asthma Start:08-May-2012 Instruction Type:Provider Instructions for Treatment Patient Instructionsset up m edcial visit in 2 weeks adn come fasting bring bp diaries - Indication:Encounter for Medicare annual wellness exam Start:24-Apr-2012 Instruction Type:Provider Instructions for Treatment Patient Instructions Indication:Anxiety Start:24-Apr-2012 Instruction Type:Provider Instructions for Treatment Name Dates Details How to Access Health Informa tion Online using Patient Portal and [employer] Indication:Non-smoker Start:03-Aug-2020 Instruction Type:Patient Education Patient Instructions Indication:Non-smoker Start:03-Aug-2020 Instruction Type:Provider Instructions for Treatment How to access health informa tion online Indication:Non-smoker Start:24-Jun-2020 Instruction Type:Patient Education How to access health informa tion online - Detail Indication:Non-smoker Start:24-Jun-2020 Instruction Type:Patient Education Patient Instructions Indication:Non-smoker Start:24-Jun-2020 Instruction Type:Provider Instructions for Treatment How to access health informa tion online Indication:Non-smoker Start:14-Jul-2019 Instruction Type:Patient Education How to access health informa tion online - Detail Indication:Non-smoker Start:14-Jul-2019 Instruction Type:Patient Education Patient Instructions Indication:Non-smoker Start:14-Jul-2019 Instruction Type:Provider Instructions for Treatment How to access health informa tion online Indication:BMI 26.0-26.9,adult Start:02-Jul-2019 Instruction Type:Patient Education Patient Instructions Indication:BMI 26.0-26.9,adult Start:02-Jul-2019 Instruction Type:Provider Instructions for Treatment How to access health informa tion online Indication:Non-smoker Start:11-Jun-2019 Instruction Type:Patient Education How to access health informa tion online - Detail Indication:Non-smoker Start:11-Jun-2019 Instruction Type:Patient Education Patient Instructions Indication:Non-smoker Start:11-Jun-2019 Instruction Type:Provider Instructions for Treatment How to access health informa tion online Indication:Non-smoker Start:30-Apr-2019 Instruction Type:Patient Education How to access health informa tion online - Detail Indication:Non-smoker Start:30-Apr-2019 Instruction Type:Patient Education Patient Instructions Indication:Non-smoker Start:30-Apr-2019 Instruction Type:Provider Instructions for Treatment How to access health informa tion online Indication:Ceruminosis, right (Renamed from Excessive cerumen in ear canal, right) Start:23-Dec-2018 Instruction Type:Patient Education How to access health informa tion online - Detail Indication:Ceruminosis, right (Renamed from Excessive cerumen in ear canal, right) Start:23-Dec-2018 Instruction Type:Patient Education Patient Instructions Indication:Ceruminosis, right (Renamed from Excessive cerumen in ear canal, right) Start:23-Dec-2018 Instruction Type:Provider Instructions for Treatment How to access health informa tion online Indication:Non-smoker Start:19-Dec-2018 Instruction Type:Patient Education How to access health informa tion online - Detail Indication:Non-smoker Start:19-Dec-2018 Instruction Type:Patient Education Patient Instructions Indication:Non-smoker Start:19-Dec-2018 Instruction Type:Provider Instructions for Treatment cardiovascular counseling Indication:CAD (coronary artery disease) Start:04-Dec-2018 Instruction Type:Provider Instructions for Treatment How to access health informa tion online Indication:Non-smoker Start:04-Dec-2018 Instruction Type:Patient Education How to access health informa tion online - Detail Indication:Non-smoker Start:04-Dec-2018 Instruction Type:Patient Education Patient Instructions Indication:Non-smoker Start:04-Dec-2018 Instruction Type:Provider Instructions for Treatment How to access health informa tion online Indication:Non-smoker Start:28-Aug-2018 Instruction Type:Patient Education How to access health informa tion online - Detail Indication:Non-smoker Start:28-Aug-2018 Instruction Type:Patient Education Patient Instructions Indication:Non-smoker Start:28-Aug-2018 Instruction Type:Provider Instructions for Treatment How to access health informa tion online Indication:BMI 27.0-27.9,adult Start:12-Jun-2018 Instruction Type:Patient Education How to access health informa tion online - Detail Indication:BMI 27.0-27.9,adult Start:12-Jun-2018 Instruction Type:Patient Education Patient Instructions Indication:BMI 27.0-27.9,adult Start:12-Jun-2018 Instruction Type:Provider Instructions for Treatment How to access health informa tion online Indication:Smoker Start:25-Apr-2018 Instruction Type:Patient Education How to access health informa tion online - Detail Indication:Smoker Start:25-Apr-2018 Instruction Type:Patient Education Patient Instructions Indication:Smoker Start:25-Apr-2018 Instruction Type:Provider Instructions for Treatment How to access health informa tion online Indication:Current nonsmoker Start:17-Apr-2018 Instruction Type:Patient Education How to access health informa tion online - Detail Indication:Current nonsmoker Start:17-Apr-2018 Instruction Type:Patient Education Patient Instructions Indication:Current nonsmoker Start:17-Apr-2018 Instruction Type:Provider Instructions for Treatment How to access health informa tion online Indication:Current nonsmoker Start:19-Dec-2017 Instruction Type:Patient Education How to access health informa tion online - Detail Indication:Current nonsmoker Start:19-Dec-2017 Instruction Type:Patient Education Patient Instructions Indication:Current nonsmoker Start:19-Dec-2017 Instruction Type:Provider Instructions for Treatment How to access health informa tion online Indication:Current nonsmoker Start:27-Nov-2017 Instruction Type:Patient Education How to access health informa tion online - Detail Indication:Current nonsmoker Start:27-Nov-2017 Instruction Type:Patient Education Patient Instructions Indication:Current nonsmoker Start:27-Nov-2017 Instruction Type:Provider Instructions for Treatment How to access health informa tion online Indication:BMI 28.0-28.9,adult Start:14-Nov-2017 Instruction Type:Patient Education How to access health informa tion online - Detail Indication:BMI 28.0-28.9,adult Start:14-Nov-2017 Instruction Type:Patient Education Patient Instructions Indication:Cough Start:14-Nov-2017 Instruction Type:Provider Instructions for Treatment How to access health informa tion online Indication:BMI 28.0-28.9,adult Start:05-Nov-2017 Instruction Type:Patient Education How to access health informa tion online - Detail Indication:BMI 28.0-28.9,adult Start:05-Nov-2017 Instruction Type:Patient Education Patient Instructions Indication:BMI 28.0-28.9,adult Start:05-Nov-2017 Instruction Type:Provider Instructions for Treatment How to access health informa tion online Indication:Current nonsmoker Start:27-Aug-2017 Instruction Type:Patient Education How to access health informa tion online - Detail Indication:Current nonsmoker Start:27-Aug-2017 Instruction Type:Patient Education Patient Instructions Indication:Cough Start:27-Aug-2017 Instruction Type:Provider Instructions for Treatment How to access health informa tion online Indication:BMI 28.0-28.9,adult Start:11-Oct-2016 Instruction Type:Patient Education How to access health informa tion online - Detail Indication:BMI 28.0-28.9,adult Start:11-Oct-2016 Instruction Type:Patient Education Patient Instructions Indication:BMI 28.0-28.9,adult Start:11-Oct-2016 Instruction Type:Provider Instructions for Treatment How to access health informa tion online Indication:Controlled diabetes mellitus Start:29-Dec-2015 Instruction Type:Patient Education How to access health informa tion online - Detail Indication:Controlled diabetes mellitus Start:29-Dec-2015 Instruction Type:Patient Education Patient Instructions Indication:Controlled diabetes mellitus Start:29-Dec-2015 Instruction Type:Provider Instructions for Treatment How to access health informa tion online Indication:CAD (coronary artery disease) Start:26-Sep-2015 Instruction Type:Patient Education How to access health informa tion online - Detail Indication:CAD (coronary artery disease) Start:26-Sep-2015 Instruction Type:Patient Education Patient Instructions Indication:CAD (coronary artery disease) Start:26-Sep-2015 Instruction Type:Provider Instructions for Treatment How to access health informa tion online Indication:Hypertension, essential, benign Start:23-Jun-2015 Instruction Type:Patient Education How to access health informa tion online - Detail Indication:Hypertension, essential, benign Start:23-Jun-2015 Instruction Type:Patient Education Patient Instructions Indication:Hypertension, essential, benign Start:23-Jun-2015 Instruction Type:Provider Instructions for Treatment How to access health informa tion online - Detail Indication:Anxiety Start:21-Mar-2015 Instruction Type:Patient Education Patient Instructions Indication:Anxiety Start:21-Mar-2015 Instruction Type:Provider Instructions for Treatment Patient Instructions Indication:Abnormal lung sounds Start:03-Nov-2012 Instruction Type:Provider Instructions for Treatment Patient Instructions Indication:Asthma Start:08-May-2012 Instruction Type:Provider Instructions for Treatment Patient Instructionsset up m edcial visit in 2 weeks adn come fasting bring bp diaries - Indication:Encounter for Medicare annual wellness exam Start:24-Apr-2012 Instruction Type:Provider Instructions for Treatment Patient Instructions Indication:Anxiety Start:24-Apr-2012 Instruction Type:Provider Instructions for Treatment Name Dates Details How to Access Health Informa tion Online using Patient Portal and [employer] Indication:Non-smoker Start:03-Aug-2020 Instruction Type:Patient Education Patient Instructions Indication:Non-smoker Start:03-Aug-2020 Instruction Type:Provider Instructions for Treatment How to access health informa tion online Indication:Non-smoker Start:24-Jun-2020 Instruction Type:Patient Education How to access health informa tion online - Detail Indication:Non-smoker Start:24-Jun-2020 Instruction Type:Patient Education Patient Instructions Indication:Non-smoker Start:24-Jun-2020 Instruction Type:Provider Instructions for Treatment How to access health informa tion online Indication:Non-smoker Start:14-Jul-2019 Instruction Type:Patient Education How to access health informa tion online - Detail Indication:Non-smoker Start:14-Jul-2019 Instruction Type:Patient Education Patient Instructions Indication:Non-smoker Start:14-Jul-2019 Instruction Type:Provider Instructions for Treatment How to access health informa tion online Indication:BMI 26.0-26.9,adult Start:02-Jul-2019 Instruction Type:Patient Education Patient Instructions Indication:BMI 26.0-26.9,adult Start:02-Jul-2019 Instruction Type:Provider Instructions for Treatment How to access health informa tion online Indication:Non-smoker Start:11-Jun-2019 Instruction Type:Patient Education How to access health informa tion online - Detail Indication:Non-smoker Start:11-Jun-2019 Instruction Type:Patient Education Patient Instructions Indication:Non-smoker Start:11-Jun-2019 Instruction Type:Provider Instructions for Treatment How to access health informa tion online Indication:Non-smoker Start:30-Apr-2019 Instruction Type:Patient Education How to access health informa tion online - Detail Indication:Non-smoker Start:30-Apr-2019 Instruction Type:Patient Education Patient Instructions Indication:Non-smoker Start:30-Apr-2019 Instruction Type:Provider Instructions for Treatment How to access health informa tion online Indication:Ceruminosis, right (Renamed from Excessive cerumen in ear canal, right) Start:23-Dec-2018 Instruction Type:Patient Education How to access health informa tion online - Detail Indication:Ceruminosis, right (Renamed from Excessive cerumen in ear canal, right) Start:23-Dec-2018 Instruction Type:Patient Education Patient Instructions Indication:Ceruminosis, right (Renamed from Excessive cerumen in ear canal, right) Start:23-Dec-2018 Instruction Type:Provider Instructions for Treatment How to access health informa tion online Indication:Non-smoker Start:19-Dec-2018 Instruction Type:Patient Education How to access health informa tion online - Detail Indication:Non-smoker Start:19-Dec-2018 Instruction Type:Patient Education Patient Instructions Indication:Non-smoker Start:19-Dec-2018 Instruction Type:Provider Instructions for Treatment cardiovascular counseling Indication:CAD (coronary artery disease) Start:04-Dec-2018 Instruction Type:Provider Instructions for Treatment How to access health informa tion online Indication:Non-smoker Start:04-Dec-2018 Instruction Type:Patient Education How to access health informa tion online - Detail Indication:Non-smoker Start:04-Dec-2018 Instruction Type:Patient Education Patient Instructions Indication:Non-smoker Start:04-Dec-2018 Instruction Type:Provider Instructions for Treatment How to access health informa tion online Indication:Non-smoker Start:28-Aug-2018 Instruction Type:Patient Education How to access health informa tion online - Detail Indication:Non-smoker Start:28-Aug-2018 Instruction Type:Patient Education Patient Instructions Indication:Non-smoker Start:28-Aug-2018 Instruction Type:Provider Instructions for Treatment How to access health informa tion online Indication:BMI 27.0-27.9,adult Start:12-Jun-2018 Instruction Type:Patient Education How to access health informa tion online - Detail Indication:BMI 27.0-27.9,adult Start:12-Jun-2018 Instruction Type:Patient Education Patient Instructions Indication:BMI 27.0-27.9,adult Start:12-Jun-2018 Instruction Type:Provider Instructions for Treatment How to access health informa tion online Indication:Smoker Start:25-Apr-2018 Instruction Type:Patient Education How to access health informa tion online - Detail Indication:Smoker Start:25-Apr-2018 Instruction Type:Patient Education Patient Instructions Indication:Smoker Start:25-Apr-2018 Instruction Type:Provider Instructions for Treatment How to access health informa tion online Indication:Current nonsmoker Start:17-Apr-2018 Instruction Type:Patient Education How to access health informa tion online - Detail Indication:Current nonsmoker Start:17-Apr-2018 Instruction Type:Patient Education Patient Instructions Indication:Current nonsmoker Start:17-Apr-2018 Instruction Type:Provider Instructions for Treatment How to access health informa tion online Indication:Current nonsmoker Start:19-Dec-2017 Instruction Type:Patient Education How to access health informa tion online - Detail Indication:Current nonsmoker Start:19-Dec-2017 Instruction Type:Patient Education Patient Instructions Indication:Current nonsmoker Start:19-Dec-2017 Instruction Type:Provider Instructions for Treatment How to access health informa tion online Indication:Current nonsmoker Start:27-Nov-2017 Instruction Type:Patient Education How to access health informa tion online - Detail Indication:Current nonsmoker Start:27-Nov-2017 Instruction Type:Patient Education Patient Instructions Indication:Current nonsmoker Start:27-Nov-2017 Instruction Type:Provider Instructions for Treatment How to access health informa tion online Indication:BMI 28.0-28.9,adult Start:14-Nov-2017 Instruction Type:Patient Education How to access health informa tion online - Detail Indication:BMI 28.0-28.9,adult Start:14-Nov-2017 Instruction Type:Patient Education Patient Instructions Indication:Cough Start:14-Nov-2017 Instruction Type:Provider Instructions for Treatment How to access health informa tion online Indication:BMI 28.0-28.9,adult Start:05-Nov-2017 Instruction Type:Patient Education How to access health informa tion online - Detail Indication:BMI 28.0-28.9,adult Start:05-Nov-2017 Instruction Type:Patient Education Patient Instructions Indication:BMI 28.0-28.9,adult Start:05-Nov-2017 Instruction Type:Provider Instructions for Treatment How to access health informa tion online Indication:Current nonsmoker Start:27-Aug-2017 Instruction Type:Patient Education How to access health informa tion online - Detail Indication:Current nonsmoker Start:27-Aug-2017 Instruction Type:Patient Education Patient Instructions Indication:Cough Start:27-Aug-2017 Instruction Type:Provider Instructions for Treatment How to access health informa tion online Indication:BMI 28.0-28.9,adult Start:11-Oct-2016 Instruction Type:Patient Education How to access health informa tion online - Detail Indication:BMI 28.0-28.9,adult Start:11-Oct-2016 Instruction Type:Patient Education Patient Instructions Indication:BMI 28.0-28.9,adult Start:11-Oct-2016 Instruction Type:Provider Instructions for Treatment How to access health informa tion online Indication:Controlled diabetes mellitus Start:29-Dec-2015 Instruction Type:Patient Education How to access health informa tion online - Detail Indication:Controlled diabetes mellitus Start:29-Dec-2015 Instruction Type:Patient Education Patient Instructions Indication:Controlled diabetes mellitus Start:29-Dec-2015 Instruction Type:Provider Instructions for Treatment How to access health informa tion online Indication:CAD (coronary artery disease) Start:26-Sep-2015 Instruction Type:Patient Education How to access health informa tion online - Detail Indication:CAD (coronary artery disease) Start:26-Sep-2015 Instruction Type:Patient Education Patient Instructions Indication:CAD (coronary artery disease) Start:26-Sep-2015 Instruction Type:Provider Instructions for Treatment How to access health informa tion online Indication:Hypertension, essential, benign Start:23-Jun-2015 Instruction Type:Patient Education How to access health informa tion online - Detail Indication:Hypertension, essential, benign Start:23-Jun-2015 Instruction Type:Patient Education Patient Instructions Indication:Hypertension, essential, benign Start:23-Jun-2015 Instruction Type:Provider Instructions for Treatment How to access health informa tion online - Detail Indication:Anxiety Start:21-Mar-2015 Instruction Type:Patient Education Patient Instructions Indication:Anxiety Start:21-Mar-2015 Instruction Type:Provider Instructions for Treatment Patient Instructions Indication:Abnormal lung sounds Start:03-Nov-2012 Instruction Type:Provider Instructions for Treatment Patient Instructions Indication:Asthma Start:08-May-2012 Instruction Type:Provider Instructions for Treatment Patient Instructionsset up m edcial visit in 2 weeks adn come fasting bring bp diaries - Indication:Encounter for Medicare annual wellness exam Start:24-Apr-2012 Instruction Type:Provider Instructions for Treatment Patient Instructions Indication:Anxiety Start:24-Apr-2012 Instruction Type:Provider Instructions for Treatment Name Dates Details How to Access Health Informa tion Online using Patient Portal and [email or web address] Apps Indication:Non-smoker Start:03-Aug-2020 Instruction Type:Patient Education Patient Instructions Indication:Non-smoker Start:03-Aug-2020 Instruction Type:Provider Instructions for Treatment How to access health informa tion online Indication:Non-smoker Start:24-Jun-2020 Instruction Type:Patient Education How to access health informa tion online - Detail Indication:Non-smoker Start:24-Jun-2020 Instruction Type:Patient Education Patient Instructions Indication:Non-smoker Start:24-Jun-2020 Instruction Type:Provider Instructions for Treatment How to access health informa tion online Indication:Non-smoker Start:14-Jul-2019 Instruction Type:Patient Education How to access health informa tion online - Detail Indication:Non-smoker Start:14-Jul-2019 Instruction Type:Patient Education Patient Instructions Indication:Non-smoker Start:14-Jul-2019 Instruction Type:Provider Instructions for Treatment How to access health informa tion online Indication:BMI 26.0-26.9,adult Start:02-Jul-2019 Instruction Type:Patient Education Patient Instructions Indication:BMI 26.0-26.9,adult Start:02-Jul-2019 Instruction Type:Provider Instructions for Treatment How to access health informa tion online Indication:Non-smoker Start:11-Jun-2019 Instruction Type:Patient Education How to access health informa tion online - Detail Indication:Non-smoker Start:11-Jun-2019 Instruction Type:Patient Education Patient Instructions Indication:Non-smoker Start:11-Jun-2019 Instruction Type:Provider Instructions for Treatment How to access health informa tion online Indication:Non-smoker Start:30-Apr-2019 Instruction Type:Patient Education How to access health informa tion online - Detail Indication:Non-smoker Start:30-Apr-2019 Instruction Type:Patient Education Patient Instructions Indication:Non-smoker Start:30-Apr-2019 Instruction Type:Provider Instructions for Treatment How to access health informa tion online Indication:Ceruminosis, right (Renamed from Excessive cerumen in ear canal, right) Start:23-Dec-2018 Instruction Type:Patient Education How to access health informa tion online - Detail Indication:Ceruminosis, right (Renamed from Excessive cerumen in ear canal, right) Start:23-Dec-2018 Instruction Type:Patient Education Patient Instructions Indication:Ceruminosis, right (Renamed from Excessive cerumen in ear canal, right) Start:23-Dec-2018 Instruction Type:Provider Instructions for Treatment How to access health informa tion online Indication:Non-smoker Start:19-Dec-2018 Instruction Type:Patient Education How to access health informa tion online - Detail Indication:Non-smoker Start:19-Dec-2018 Instruction Type:Patient Education Patient Instructions Indication:Non-smoker Start:19-Dec-2018 Instruction Type:Provider Instructions for Treatment cardiovascular counseling Indication:CAD (coronary artery disease) Start:04-Dec-2018 Instruction Type:Provider Instructions for Treatment How to access health informa tion online Indication:Non-smoker Start:04-Dec-2018 Instruction Type:Patient Education How to access health informa tion online - Detail Indication:Non-smoker Start:04-Dec-2018 Instruction Type:Patient Education Patient Instructions Indication:Non-smoker Start:04-Dec-2018 Instruction Type:Provider Instructions for Treatment How to access health informa tion online Indication:Non-smoker Start:28-Aug-2018 Instruction Type:Patient Education How to access health informa tion online - Detail Indication:Non-smoker Start:28-Aug-2018 Instruction Type:Patient Education Patient Instructions Indication:Non-smoker Start:28-Aug-2018 Instruction Type:Provider Instructions for Treatment How to access health informa tion online Indication:BMI 27.0-27.9,adult Start:12-Jun-2018 Instruction Type:Patient Education How to access health informa tion online - Detail Indication:BMI 27.0-27.9,adult Start:12-Jun-2018 Instruction Type:Patient Education Patient Instructions Indication:BMI 27.0-27.9,adult Start:12-Jun-2018 Instruction Type:Provider Instructions for Treatment How to access health informa tion online Indication:Smoker Start:25-Apr-2018 Instruction Type:Patient Education How to access health informa tion online - Detail Indication:Smoker Start:25-Apr-2018 Instruction Type:Patient Education Patient Instructions Indication:Smoker Start:25-Apr-2018 Instruction Type:Provider Instructions for Treatment How to access health informa tion online Indication:Current nonsmoker Start:17-Apr-2018 Instruction Type:Patient Education How to access health informa tion online - Detail Indication:Current nonsmoker Start:17-Apr-2018 Instruction Type:Patient Education Patient Instructions Indication:Current nonsmoker Start:17-Apr-2018 Instruction Type:Provider Instructions for Treatment How to access health informa tion online Indication:Current nonsmoker Start:19-Dec-2017 Instruction Type:Patient Education How to access health informa tion online - Detail Indication:Current nonsmoker Start:19-Dec-2017 Instruction Type:Patient Education Patient Instructions Indication:Current nonsmoker Start:19-Dec-2017 Instruction Type:Provider Instructions for Treatment How to access health informa tion online Indication:Current nonsmoker Start:27-Nov-2017 Instruction Type:Patient Education How to access health informa tion online - Detail Indication:Current nonsmoker Start:27-Nov-2017 Instruction Type:Patient Education Patient Instructions Indication:Current nonsmoker Start:27-Nov-2017 Instruction Type:Provider Instructions for Treatment How to access health informa tion online Indication:BMI 28.0-28.9,adult Start:14-Nov-2017 Instruction Type:Patient Education How to access health informa tion online - Detail Indication:BMI 28.0-28.9,adult Start:14-Nov-2017 Instruction Type:Patient Education Patient Instructions Indication:Cough Start:14-Nov-2017 Instruction Type:Provider Instructions for Treatment How to access health informa tion online Indication:BMI 28.0-28.9,adult Start:05-Nov-2017 Instruction Type:Patient Education How to access health informa tion online - Detail Indication:BMI 28.0-28.9,adult Start:05-Nov-2017 Instruction Type:Patient Education Patient Instructions Indication:BMI 28.0-28.9,adult Start:05-Nov-2017 Instruction Type:Provider Instructions for Treatment How to access health informa tion online Indication:Current nonsmoker Start:27-Aug-2017 Instruction Type:Patient Education How to access health informa tion online - Detail Indication:Current nonsmoker Start:27-Aug-2017 Instruction Type:Patient Education Patient Instructions Indication:Cough Start:27-Aug-2017 Instruction Type:Provider Instructions for Treatment How to access health informa tion online Indication:BMI 28.0-28.9,adult Start:11-Oct-2016 Instruction Type:Patient Education How to access health informa tion online - Detail Indication:BMI 28.0-28.9,adult Start:11-Oct-2016 Instruction Type:Patient Education Patient Instructions Indication:BMI 28.0-28.9,adult Start:11-Oct-2016 Instruction Type:Provider Instructions for Treatment How to access health informa tion online Indication:Controlled diabetes mellitus Start:29-Dec-2015 Instruction Type:Patient Education How to access health informa tion online - Detail Indication:Controlled diabetes mellitus Start:29-Dec-2015 Instruction Type:Patient Education Patient Instructions Indication:Controlled diabetes mellitus Start:29-Dec-2015 Instruction Type:Provider Instructions for Treatment How to access health informa tion online Indication:CAD (coronary artery disease) Start:26-Sep-2015 Instruction Type:Patient Education How to access health informa tion online - Detail Indication:CAD (coronary artery disease) Start:26-Sep-2015 Instruction Type:Patient Education Patient Instructions Indication:CAD (coronary artery disease) Start:26-Sep-2015 Instruction Type:Provider Instructions for Treatment How to access health informa tion online Indication:Hypertension, essential, benign Start:23-Jun-2015 Instruction Type:Patient Education How to access health informa tion online - Detail Indication:Hypertension, essential, benign Start:23-Jun-2015 Instruction Type:Patient Education Patient Instructions Indication:Hypertension, essential, benign Start:23-Jun-2015 Instruction Type:Provider Instructions for Treatment How to access health informa tion online - Detail Indication:Anxiety Start:21-Mar-2015 Instruction Type:Patient Education Patient Instructions Indication:Anxiety Start:21-Mar-2015 Instruction Type:Provider Instructions for Treatment Patient Instructions Indication:Abnormal lung sounds Start:03-Nov-2012 Instruction Type:Provider Instructions for Treatment Patient Instructions Indication:Asthma Start:08-May-2012 Instruction Type:Provider Instructions for Treatment Patient Instructionsset up m edcial visit in 2 weeks adn come fasting bring bp diaries - Indication:Encounter for Medicare annual wellness exam Start:24-Apr-2012 Instruction Type:Provider Instructions for Treatment Patient Instructions Indication:Anxiety Start:24-Apr-2012 Instruction Type:Provider Instructions for Treatment Name Dates Details CAD (coronary artery disease ) : cardiovascular counseling Indication:CAD (coronary artery disease) Non-smoker : How to access h ealth information online Indication:Non-smoker Non-smoker : How to access h ealth information online - Detail Indication:Non-smoker Non-smoker : Patient Instruc tions Indication:Non-smoker BMI 27.0-27.9,adult : How to access health information online Indication:BMI 27.0-27.9,adult BMI 27.0-27.9,adult : How to access health information online - Detail Indication:BMI 27.0-27.9,adult BMI 27.0-27.9,adult : Patien t Instructions Indication:BMI 27.0-27.9,adult Smoker : How to access healt h information online Indication:Smoker Smoker : How to access healt h information online - Detail Indication:Smoker Smoker : Patient Instruction s Indication:Smoker Current nonsmoker : How to a ccess health information online Indication:Current nonsmoker Current nonsmoker : How to a ccess health information online - Detail Indication:Current nonsmoker Current nonsmoker : Patient Instructions Indication:Current nonsmoker BMI 28.0-28.9,adult : How to access health information online Indication:BMI 28.0-28.9,adult BMI 28.0-28.9,adult : How to access health information online - Detail Indication:BMI 28.0-28.9,adult Cough : Patient Instructions Indication:Cough BMI 28.0-28.9,adult : Patien t Instructions Indication:BMI 28.0-28.9,adult Controlled diabetes mellitus : How to access health information online Indication:Controlled diabetes mellitus Controlled diabetes mellitus : How to access health information online - Detail Indication:Controlled diabetes mellitus Controlled diabetes mellitus : Patient Instructions Indication:Controlled diabetes mellitus CAD (coronary artery disease ) : How to access health information online Indication:CAD (coronary artery disease) CAD (coronary artery disease ) : How to access health information online - Detail Indication:CAD (coronary artery disease) CAD (coronary artery disease ) : Patient Instructions Indication:CAD (coronary artery disease) Hypertension, essential, selina ign : How to access health information online Indication:Hypertension, essential, benign Hypertension, essential, selina ign : How to access health information online - Detail Indication:Hypertension, essential, benign Hypertension, essential, selina ign : Patient Instructions Indication:Hypertension, essential, benign Anxiety : How to access heal th information online - Detail Indication:Anxiety Anxiety : Patient Instructio ns Indication:Anxiety Abnormal lung sounds : Patie nt Instructions Indication:Abnormal lung sounds Asthma : Patient Instruction s Indication:Asthma Encounter for Medicare annua l wellness exam : Patient Instructionsset up medcial visit in 2 weeks adn come fasting bring bp diaries - Indication:Encounter for Medicare annual wellness exam Name Dates Details How to access health informa tion online Indication:Non-smoker Start:11-Jun-2019 Instruction Type:Patient Education How to access health informa tion online - Detail Indication:Non-smoker Start:11-Jun-2019 Instruction Type:Patient Education Patient Instructions Indication:Non-smoker Start:11-Jun-2019 Instruction Type:Provider Instructions for Treatment How to access health informa tion online Indication:Non-smoker Start:30-Apr-2019 Instruction Type:Patient Education How to access health informa tion online - Detail Indication:Non-smoker Start:30-Apr-2019 Instruction Type:Patient Education Patient Instructions Indication:Non-smoker Start:30-Apr-2019 Instruction Type:Provider Instructions for Treatment How to access health informa tion online Indication:Ceruminosis, right (Renamed from Excessive cerumen in ear canal, right) Start:23-Dec-2018 Instruction Type:Patient Education How to access health informa tion online - Detail Indication:Ceruminosis, right (Renamed from Excessive cerumen in ear canal, right) Start:23-Dec-2018 Instruction Type:Patient Education Patient Instructions Indication:Ceruminosis, right (Renamed from Excessive cerumen in ear canal, right) Start:23-Dec-2018 Instruction Type:Provider Instructions for Treatment How to access health informa tion online Indication:Non-smoker Start:19-Dec-2018 Instruction Type:Patient Education How to access health informa tion online - Detail Indication:Non-smoker Start:19-Dec-2018 Instruction Type:Patient Education Patient Instructions Indication:Non-smoker Start:19-Dec-2018 Instruction Type:Provider Instructions for Treatment cardiovascular counseling Indication:CAD (coronary artery disease) Start:04-Dec-2018 Instruction Type:Provider Instructions for Treatment How to access health informa tion online Indication:Non-smoker Start:04-Dec-2018 Instruction Type:Patient Education How to access health informa tion online - Detail Indication:Non-smoker Start:04-Dec-2018 Instruction Type:Patient Education Patient Instructions Indication:Non-smoker Start:04-Dec-2018 Instruction Type:Provider Instructions for Treatment How to access health informa tion online Indication:Non-smoker Start:28-Aug-2018 Instruction Type:Patient Education How to access health informa tion online - Detail Indication:Non-smoker Start:28-Aug-2018 Instruction Type:Patient Education Patient Instructions Indication:Non-smoker Start:28-Aug-2018 Instruction Type:Provider Instructions for Treatment How to access health informa tion online Indication:BMI 27.0-27.9,adult Start:12-Jun-2018 Instruction Type:Patient Education How to access health informa tion online - Detail Indication:BMI 27.0-27.9,adult Start:12-Jun-2018 Instruction Type:Patient Education Patient Instructions Indication:BMI 27.0-27.9,adult Start:12-Jun-2018 Instruction Type:Provider Instructions for Treatment How to access health informa tion online Indication:Smoker Start:25-Apr-2018 Instruction Type:Patient Education How to access health informa tion online - Detail Indication:Smoker Start:25-Apr-2018 Instruction Type:Patient Education Patient Instructions Indication:Smoker Start:25-Apr-2018 Instruction Type:Provider Instructions for Treatment How to access health informa tion online Indication:Current nonsmoker Start:17-Apr-2018 Instruction Type:Patient Education How to access health informa tion online - Detail Indication:Current nonsmoker Start:17-Apr-2018 Instruction Type:Patient Education Patient Instructions Indication:Current nonsmoker Start:17-Apr-2018 Instruction Type:Provider Instructions for Treatment How to access health informa tion online Indication:Current nonsmoker Start:19-Dec-2017 Instruction Type:Patient Education How to access health informa tion online - Detail Indication:Current nonsmoker Start:19-Dec-2017 Instruction Type:Patient Education Patient Instructions Indication:Current nonsmoker Start:19-Dec-2017 Instruction Type:Provider Instructions for Treatment How to access health informa tion online Indication:Current nonsmoker Start:27-Nov-2017 Instruction Type:Patient Education How to access health informa tion online - Detail Indication:Current nonsmoker Start:27-Nov-2017 Instruction Type:Patient Education Patient Instructions Indication:Current nonsmoker Start:27-Nov-2017 Instruction Type:Provider Instructions for Treatment How to access health informa tion online Indication:BMI 28.0-28.9,adult Start:14-Nov-2017 Instruction Type:Patient Education How to access health informa tion online - Detail Indication:BMI 28.0-28.9,adult Start:14-Nov-2017 Instruction Type:Patient Education Patient Instructions Indication:Cough Start:14-Nov-2017 Instruction Type:Provider Instructions for Treatment How to access health informa tion online Indication:BMI 28.0-28.9,adult Start:05-Nov-2017 Instruction Type:Patient Education How to access health informa tion online - Detail Indication:BMI 28.0-28.9,adult Start:05-Nov-2017 Instruction Type:Patient Education Patient Instructions Indication:BMI 28.0-28.9,adult Start:05-Nov-2017 Instruction Type:Provider Instructions for Treatment How to access health informa tion online Indication:Current nonsmoker Start:27-Aug-2017 Instruction Type:Patient Education How to access health informa tion online - Detail Indication:Current nonsmoker Start:27-Aug-2017 Instruction Type:Patient Education Patient Instructions Indication:Cough Start:27-Aug-2017 Instruction Type:Provider Instructions for Treatment How to access health informa tion online Indication:BMI 28.0-28.9,adult Start:11-Oct-2016 Instruction Type:Patient Education How to access health informa tion online - Detail Indication:BMI 28.0-28.9,adult Start:11-Oct-2016 Instruction Type:Patient Education Patient Instructions Indication:BMI 28.0-28.9,adult Start:11-Oct-2016 Instruction Type:Provider Instructions for Treatment How to access health informa tion online Indication:Controlled diabetes mellitus Start:29-Dec-2015 Instruction Type:Patient Education How to access health informa tion online - Detail Indication:Controlled diabetes mellitus Start:29-Dec-2015 Instruction Type:Patient Education Patient Instructions Indication:Controlled diabetes mellitus Start:29-Dec-2015 Instruction Type:Provider Instructions for Treatment How to access health informa tion online Indication:CAD (coronary artery disease) Start:26-Sep-2015 Instruction Type:Patient Education How to access health informa tion online - Detail Indication:CAD (coronary artery disease) Start:26-Sep-2015 Instruction Type:Patient Education Patient Instructions Indication:CAD (coronary artery disease) Start:26-Sep-2015 Instruction Type:Provider Instructions for Treatment How to access health informa tion online Indication:Hypertension, essential, benign Start:23-Jun-2015 Instruction Type:Patient Education How to access health informa tion online - Detail Indication:Hypertension, essential, benign Start:23-Jun-2015 Instruction Type:Patient Education Patient Instructions Indication:Hypertension, essential, benign Start:23-Jun-2015 Instruction Type:Provider Instructions for Treatment How to access health informa tion online - Detail Indication:Anxiety Start:21-Mar-2015 Instruction Type:Patient Education Patient Instructions Indication:Anxiety Start:21-Mar-2015 Instruction Type:Provider Instructions for Treatment Patient Instructions Indication:Abnormal lung sounds Start:03-Nov-2012 Instruction Type:Provider Instructions for Treatment Patient Instructions Indication:Asthma Start:08-May-2012 Instruction Type:Provider Instructions for Treatment Patient Instructionsset up m edcial visit in 2 weeks adn come fasting bring bp diaries - Indication:Encounter for Medicare annual wellness exam Start:24-Apr-2012 Instruction Type:Provider Instructions for Treatment Patient Instructions Indication:Anxiety Start:24-Apr-2012 Instruction Type:Provider Instructions for Treatment Name Dates Details How to access health informa tion online Indication:Non-smoker Start:24-Jun-2020 Instruction Type:Patient Education How to access health informa tion online - Detail Indication:Non-smoker Start:24-Jun-2020 Instruction Type:Patient Education Patient Instructions Indication:Non-smoker Start:24-Jun-2020 Instruction Type:Provider Instructions for Treatment How to access health informa tion online Indication:Non-smoker Start:14-Jul-2019 Instruction Type:Patient Education How to access health informa tion online - Detail Indication:Non-smoker Start:14-Jul-2019 Instruction Type:Patient Education Patient Instructions Indication:Non-smoker Start:14-Jul-2019 Instruction Type:Provider Instructions for Treatment How to access health informa tion online Indication:BMI 26.0-26.9,adult Start:02-Jul-2019 Instruction Type:Patient Education Patient Instructions Indication:BMI 26.0-26.9,adult Start:02-Jul-2019 Instruction Type:Provider Instructions for Treatment How to access health informa tion online Indication:Non-smoker Start:11-Jun-2019 Instruction Type:Patient Education How to access health informa tion online - Detail Indication:Non-smoker Start:11-Jun-2019 Instruction Type:Patient Education Patient Instructions Indication:Non-smoker Start:11-Jun-2019 Instruction Type:Provider Instructions for Treatment How to access health informa tion online Indication:Non-smoker Start:30-Apr-2019 Instruction Type:Patient Education How to access health informa tion online - Detail Indication:Non-smoker Start:30-Apr-2019 Instruction Type:Patient Education Patient Instructions Indication:Non-smoker Start:30-Apr-2019 Instruction Type:Provider Instructions for Treatment How to access health informa tion online Indication:Ceruminosis, right (Renamed from Excessive cerumen in ear canal, right) Start:23-Dec-2018 Instruction Type:Patient Education How to access health informa tion online - Detail Indication:Ceruminosis, right (Renamed from Excessive cerumen in ear canal, right) Start:23-Dec-2018 Instruction Type:Patient Education Patient Instructions Indication:Ceruminosis, right (Renamed from Excessive cerumen in ear canal, right) Start:23-Dec-2018 Instruction Type:Provider Instructions for Treatment How to access health informa tion online Indication:Non-smoker Start:19-Dec-2018 Instruction Type:Patient Education How to access health informa tion online - Detail Indication:Non-smoker Start:19-Dec-2018 Instruction Type:Patient Education Patient Instructions Indication:Non-smoker Start:19-Dec-2018 Instruction Type:Provider Instructions for Treatment cardiovascular counseling Indication:CAD (coronary artery disease) Start:04-Dec-2018 Instruction Type:Provider Instructions for Treatment How to access health informa tion online Indication:Non-smoker Start:04-Dec-2018 Instruction Type:Patient Education How to access health informa tion online - Detail Indication:Non-smoker Start:04-Dec-2018 Instruction Type:Patient Education Patient Instructions Indication:Non-smoker Start:04-Dec-2018 Instruction Type:Provider Instructions for Treatment How to access health informa tion online Indication:Non-smoker Start:28-Aug-2018 Instruction Type:Patient Education How to access health informa tion online - Detail Indication:Non-smoker Start:28-Aug-2018 Instruction Type:Patient Education Patient Instructions Indication:Non-smoker Start:28-Aug-2018 Instruction Type:Provider Instructions for Treatment How to access health informa tion online Indication:BMI 27.0-27.9,adult Start:12-Jun-2018 Instruction Type:Patient Education How to access health informa tion online - Detail Indication:BMI 27.0-27.9,adult Start:12-Jun-2018 Instruction Type:Patient Education Patient Instructions Indication:BMI 27.0-27.9,adult Start:12-Jun-2018 Instruction Type:Provider Instructions for Treatment How to access health informa tion online Indication:Smoker Start:25-Apr-2018 Instruction Type:Patient Education How to access health informa tion online - Detail Indication:Smoker Start:25-Apr-2018 Instruction Type:Patient Education Patient Instructions Indication:Smoker Start:25-Apr-2018 Instruction Type:Provider Instructions for Treatment How to access health informa tion online Indication:Current nonsmoker Start:17-Apr-2018 Instruction Type:Patient Education How to access health informa tion online - Detail Indication:Current nonsmoker Start:17-Apr-2018 Instruction Type:Patient Education Patient Instructions Indication:Current nonsmoker Start:17-Apr-2018 Instruction Type:Provider Instructions for Treatment How to access health informa tion online Indication:Current nonsmoker Start:19-Dec-2017 Instruction Type:Patient Education How to access health informa tion online - Detail Indication:Current nonsmoker Start:19-Dec-2017 Instruction Type:Patient Education Patient Instructions Indication:Current nonsmoker Start:19-Dec-2017 Instruction Type:Provider Instructions for Treatment How to access health informa tion online Indication:Current nonsmoker Start:27-Nov-2017 Instruction Type:Patient Education How to access health informa tion online - Detail Indication:Current nonsmoker Start:27-Nov-2017 Instruction Type:Patient Education Patient Instructions Indication:Current nonsmoker Start:27-Nov-2017 Instruction Type:Provider Instructions for Treatment How to access health informa tion online Indication:BMI 28.0-28.9,adult Start:14-Nov-2017 Instruction Type:Patient Education How to access health informa tion online - Detail Indication:BMI 28.0-28.9,adult Start:14-Nov-2017 Instruction Type:Patient Education Patient Instructions Indication:Cough Start:14-Nov-2017 Instruction Type:Provider Instructions for Treatment How to access health informa tion online Indication:BMI 28.0-28.9,adult Start:05-Nov-2017 Instruction Type:Patient Education How to access health informa tion online - Detail Indication:BMI 28.0-28.9,adult Start:05-Nov-2017 Instruction Type:Patient Education Patient Instructions Indication:BMI 28.0-28.9,adult Start:05-Nov-2017 Instruction Type:Provider Instructions for Treatment How to access health informa tion online Indication:Current nonsmoker Start:27-Aug-2017 Instruction Type:Patient Education How to access health informa tion online - Detail Indication:Current nonsmoker Start:27-Aug-2017 Instruction Type:Patient Education Patient Instructions Indication:Cough Start:27-Aug-2017 Instruction Type:Provider Instructions for Treatment How to access health informa tion online Indication:BMI 28.0-28.9,adult Start:11-Oct-2016 Instruction Type:Patient Education How to access health informa tion online - Detail Indication:BMI 28.0-28.9,adult Start:11-Oct-2016 Instruction Type:Patient Education Patient Instructions Indication:BMI 28.0-28.9,adult Start:11-Oct-2016 Instruction Type:Provider Instructions for Treatment How to access health informa tion online Indication:Controlled diabetes mellitus Start:29-Dec-2015 Instruction Type:Patient Education How to access health informa tion online - Detail Indication:Controlled diabetes mellitus Start:29-Dec-2015 Instruction Type:Patient Education Patient Instructions Indication:Controlled diabetes mellitus Start:29-Dec-2015 Instruction Type:Provider Instructions for Treatment How to access health informa tion online Indication:CAD (coronary artery disease) Start:26-Sep-2015 Instruction Type:Patient Education How to access health informa tion online - Detail Indication:CAD (coronary artery disease) Start:26-Sep-2015 Instruction Type:Patient Education Patient Instructions Indication:CAD (coronary artery disease) Start:26-Sep-2015 Instruction Type:Provider Instructions for Treatment How to access health informa tion online Indication:Hypertension, essential, benign Start:23-Jun-2015 Instruction Type:Patient Education How to access health informa tion online - Detail Indication:Hypertension, essential, benign Start:23-Jun-2015 Instruction Type:Patient Education Patient Instructions Indication:Hypertension, essential, benign Start:23-Jun-2015 Instruction Type:Provider Instructions for Treatment How to access health informa tion online - Detail Indication:Anxiety Start:21-Mar-2015 Instruction Type:Patient Education Patient Instructions Indication:Anxiety Start:21-Mar-2015 Instruction Type:Provider Instructions for Treatment Patient Instructions Indication:Abnormal lung sounds Start:03-Nov-2012 Instruction Type:Provider Instructions for Treatment Patient Instructions Indication:Asthma Start:08-May-2012 Instruction Type:Provider Instructions for Treatment Patient Instructionsset up m edcial visit in 2 weeks adn come fasting bring bp diaries - Indication:Encounter for Medicare annual wellness exam Start:24-Apr-2012 Instruction Type:Provider Instructions for Treatment Patient Instructions Indication:Anxiety Start:24-Apr-2012 Instruction Type:Provider Instructions for Treatment Name Dates Details Non-smoker : How to access h ealth information online Indication:Non-smoker Non-smoker : How to access h ealth information online - Detail Indication:Non-smoker Non-smoker : Patient Instruc tions Indication:Non-smoker BMI 27.0-27.9,adult : How to access health information online Indication:BMI 27.0-27.9,adult BMI 27.0-27.9,adult : How to access health information online - Detail Indication:BMI 27.0-27.9,adult BMI 27.0-27.9,adult : Patien t Instructions Indication:BMI 27.0-27.9,adult Smoker : How to access healt h information online Indication:Smoker Smoker : How to access healt h information online - Detail Indication:Smoker Smoker : Patient Instruction s Indication:Smoker Current nonsmoker : How to a ccess health information online Indication:Current nonsmoker Current nonsmoker : How to a ccess health information online - Detail Indication:Current nonsmoker Current nonsmoker : Patient Instructions Indication:Current nonsmoker BMI 28.0-28.9,adult : How to access health information online Indication:BMI 28.0-28.9,adult BMI 28.0-28.9,adult : How to access health information online - Detail Indication:BMI 28.0-28.9,adult Cough : Patient Instructions Indication:Cough BMI 28.0-28.9,adult : Patien t Instructions Indication:BMI 28.0-28.9,adult Controlled diabetes mellitus : How to access health information online Indication:Controlled diabetes mellitus Controlled diabetes mellitus : How to access health information online - Detail Indication:Controlled diabetes mellitus Controlled diabetes mellitus : Patient Instructions Indication:Controlled diabetes mellitus CAD (coronary artery disease ) : How to access health information online Indication:CAD (coronary artery disease) CAD (coronary artery disease ) : How to access health information online - Detail Indication:CAD (coronary artery disease) CAD (coronary artery disease ) : Patient Instructions Indication:CAD (coronary artery disease) Hypertension, essential, selina ign : How to access health information online Indication:Hypertension, essential, benign Hypertension, essential, selina ign : How to access health information online - Detail Indication:Hypertension, essential, benign Hypertension, essential, selina ign : Patient Instructions Indication:Hypertension, essential, benign Anxiety : How to access heal th information online - Detail Indication:Anxiety Anxiety : Patient Instructio ns Indication:Anxiety Abnormal lung sounds : Patie nt Instructions Indication:Abnormal lung sounds Asthma : Patient Instruction s Indication:Asthma Encounter for Medicare annua l wellness exam : Patient Instructionsset up medcial visit in 2 weeks adn come fasting bring bp diaries - Indication:Encounter for Medicare annual wellness exam Chief Complaint and Reason for Visit Chief Complaint OVERDUE FOR OV Atherosclerotic heart disease of pala coronary a Reason for Visit Essential hypertensi on Nonrheumatic mitral valve disorder Presence of stent in coronary artery Pure hypercholesterolemia Chief Complaint 1 Y FU CAD Coronary artery disease Amb Documentation Reason for Visit Essential hypertensi on Nonrheumatic mitral valve disorder Presence of stent in coronary artery Pure hypercholesterolemia Chief Complaint Admit Date 1 Y FU/PREV PFM PT June 08, 2025 8 :25am Reason for Visit Admit Date Essential hypertension June 08 8:25am Nonrheumatic mitral valve disorder Octob er 2024 8:25am Presence of stent in coronary artery Oct dimitri 2024 8:25am Pure hypercholesterolemia June 08, 2025 8:25am Family History Relationship Condition Age at Onset Recorded Date/T andreia father Cerebrovascular accident (CVA) Unknown mother Rheumatic fever Unknown Family history of co ronary artery bypass surgery Unknown Advance Directives Advance Directive Response Recorded Date/ Time Advance Directives Yes September 9:12am Living Will Yes May 13, 2020 1:27pm Power of Supervisor Fleshing Yes April 1:27pm Advance Directive Response Recorded Date/ Time Living Will Yes May 13, 2020 1:27pm Do you have a Healthcare Power of Supervisor Fleshing? Yes May 13, 2020 1:27pm Advance Directives Yes September 9:12am Summary Purpose Additional Source Comments Goals (unrecognized section and content) Goals may be documented in a n alternate sectionGoals may be documented in an alternate section No data available for this sectionGoals may be documented in an alternate section (unrecognized sect ion and content) No Status Records FoundNo Status Records FoundNo Status Records Found INFORMATION SOURCE (unrecogn ized section and content) DATE CREATED AUTHOR 11/05/2022 [facility] DATE CREATED AUTHOR AUTHOR'S ORGANIZ ATION 12/22/2023 [facility] ([place] DATE CREATED AUTHOR AUTHOR'S ORGANIZ ATION 06/08/2025 [facility] Care Teams (unrecognized sec tion and content) Team Status: Active Member Role Status Dates Dr. Catherine Garcia DO Family Provider Active Dr. Catherine Garcia DO Primary Care Provider Active Team Status: Inactive Member Role Status Dates Dr. Catherine Garcia DO Primary Care Provider, Referr ing Provider Active Denisse Ann FIRST COOK, FIRST COOK-C Attending Provider Active Team Status: Active Member Role Status Dates Dr. Catherine Garcia DO Primary Care Provider Active Denisse Ann FIRST COOK, FIRST COOK-C Referring Provider, Other Provi desire Active Dr. Pacheco James MD Attending Provider Active Team Status: Active Member Role Status Dates Dr. Catherine Garcia DO Primary Care Provider Active Denisse Ann NP, FIRST COOK-C Attending Provider Active Team Status: Inactive Member Role Status Dates Dr. Catherine Garcia DO Primary Care Provider Active Denisse Ann NP, FIRST COOK-C Attending Provider, Referring P richy Active Team Status: Active Member Role/Relationship Status Dates Dr. Catherine Garcia DO Primary care physician Active Team Status: Inactive Member Role/Relationship Status Dates Dr. Catherine Garcia DO Primary care physician Active Start: June 08, 2025 End: June 08, 2025 Dr. Catherine Garcia DO Referring Provider Active Start: June 08, 2025 End: June 08, 2025 Evangelist Gao [employer], [employer]-C Attending physician Active Start: June 08, 2025 End: June 08, 2025 FOR RECORDS PERTAINING TO PATIENTS WHO ARE OR HAVE BEEN ENROLLED IN A CHEMICAL DEPENDENCY/SUBSTANCEABUSE PROGRAM, SOME INFORMATION MAY BE OMITTED. This clinical summary was aggregated from multiple sources. Caution should be exercised in using it in the provision of clinical care. This summary normalizes information from multiple sources, and as a consequence, information in this document may materially change the coding, format and clinical context of patient data. In addition, data may be omitted in some cases. CLINICAL DECISIONS SHOULD BE BASED ON THE PRIMARY CLINICAL RECORDS. [facility]. provides no warranty or guarantee of the accuracy or completeness of information in this document.
[2025-08-02] MEDS: 0.9% Saline Lock 10 ML Syringe IV ×2 (03:36→21:09)
[2025-08-02] MEDS: 0.45% Normal Saline 1,000 ML 100 ML IV ×2 (03:36→13:37)
[2025-08-02 06:28] LABS: Hematocrit 44.2 % (40-54); Hemoglobin 14.7 g/dL (13.0-16.5); Immature Granulocytes Count 0.050 X10^3/uL (0.0-0.0); Mean Corp Hgb Conc 33.3 g/dL (32-36); Mean Corpuscular Volume 93.4 fL (80-94); Mean Platelet Vol. 9.9 fl (6.2-12.0); NRBC Flagged by Analyzer 0 % (0-5); Platelet Count 130 K/mm3 (150-450); RBC Distribution Width CV 12.8 % (11.6-14.6); RBC Distribution Width SD 44.1 fl (35.1-43.9); Red Blood Count 4.73 M/mm3 (4.6-6.2); White Blood Count 9.5 K/mm3 (4.4-11.0)
[2025-08-02 06:48] LABS: Anion Gap 12 (5-15); BUN 28 mg/dL (4-19); BUN/Creat Ratio 20.7 RATIO (10-20); Calcium,Total 8.6 mg/dL (7.6-11.0); Carbon Dioxide 23.1 mmol/L (21.0-32.0); Chloride 105 mmol/L (98-108); Estimated Creatinine Clearance 46.31 ml/min (50-250); Glucose 99 mg/dL (70-99); Potassium 3.7 mmol/L (3.3-5.1)
--- NOTE | 2025-08-02 07:26 | CON.PCM_ITS ---
Assessment & Plan Assessment/Plan (1) Hydroureter on left: PLAN: NPO been night tonight and went on for the schedule for tomorrow for cystoscopy left stent placement at noon (2) Pyelonephritis: HPI Consult Data Date of Consult: 08/02/25 HPI Narrative Reason for Consultation: stone in the mid left ureter HPI Narrative: RICKI BHARDWAJ, is a 80 male with multiple medical problems who was brought in because of the UTI and back pain CAT scan was done at demonstrated the stone in the mid ureter on the left side with severe hydronephrosis is appears a be a chronic obstruction not acute. Patient was admitted for pain control and want to take the patient the surgery for cystoscopy and stent placement. Plan to put him on the schedule for tomorrow for cystoscopy and stent placement. As possible stent may not build a plate place a stone looks impacted but will attempt stent placement [facility] Medical History Right inguinal hernia Cancer Cataracts, bilateral Skin cancer Pure hypercholesterolemia Chest pain Nonrheumatic mitral valve disorder Presence of stent in coronary artery (~03/15/15) Essential hypertension Mitral valve disorder Myocardial infarction Hypertension Atherosclerotic heart disease of [place] coronary artery without angina pectoris [facility] use of drug Home Medications ?Medication ?Instructions ?Recorded ?Last Taken ?Type B-complex with vitamin C (Super B 1 tab PO DAILY 11/0108/01/25 History Complex-Vitamin C tablet) cholecalciferol (vitamin D3) 25 25 mcg PO DAILY 08/01/25 History mcg (1,000 unit) tablet nitroglycerin 0.4 mg sublingual 0.4 mg sublingual Q5M PRN Chest 11/02/19 Unknown Rx tablet Pain #90 tabs atorvastatin 80 mg tablet 80 mg PO Q OTHER DAY 2 07/31/25 History escitalopram oxalate 20 mg tablet 20 mg PO QDAY 07/31/25 History isosorbide mononitrate 30 mg 30 mg PO DAILY #90 tabs 0 12/21/24 08/01/25 Rx tablet,extended release 24 hr aspirin 81 mg tablet,delayed 81 mg PO QDAY #90 tabs 08/01/25 Rx release (Adult Aspirin Regimen) metoprolol tartrate 50 mg tablet 50 mg PO BID 08/01/25 08/01/25 History tamsulosin 0.4 mg capsule 0.4 mg PO QHS 08/01/2507/31 History Allergy/AdvReac Type Severity Reaction Status Date / Time No Known Allergies Allergy Verified 08/01/25 18:32 Family History Father CVA (cerebral vascular accident) Mother Rheumatic fever FH: CABG (coronary artery bypass surgery) Surgical History Status post percutaneous transluminal coronary angioplasty (~02/24/15) History of appendectomy Postsurgical percutaneous transluminal coronary angioplasty (PTCA) status Social History Smoking Status: Current every day smoker tobacco type: cigarettes alcohol intake: current alcohol intake frequency: a few times a week Alcohol type: beer substance use type: does not use caffeine: Yes Type: coffee Number of servings: 3 what type of physical activity do you participate in: none seatbelt use: always do you feel safe at home: Yes ROS Constitutional Constitutional: Denies chills, fever(s) or malaise Eyes Eyes: Denies blurry vision or change in vision ENT HEENT: Reports none Cardiovascular Cardiovascular: Denies chest pain or palpitations Respiratory/Chest Respiratory/Chest: Denies cough or shortness of breath with exertion Gastrointestinal Gastrointestinal: Denies abdominal pain, constipation or diarrhea Musculoskeletal Musculoskeletal: Denies back pain, joint stiffness or joint swelling Integumentary Integumentary: Denies dry skin, jaundice, lesions or rash Neurologic Neurologic: Denies confusion, syncope or weakness Psychiatric Psychiatric: Reports none; Denies anxiety or depression Endocrine Endocrinology: Denies excessive sweating, fatigue or flushing Hematologic/Lymphatic Hematologic/Lymphatic: Denies anemia, easy bleeding or easy bruising Medical Records Data Attestation: I reviewed the patient's medical records Lab / Micro Data 08/02/25 06:09 08/02/25 06:09 Labs: Laboratory Results - last 24 hr 08/01/25 18:50: WBC 10.1, RBC 5.09, Hgb 15.7, Hct 47.7, MCV 93.7, MCH 30.8, MCHC 32.9, RDW Std Deviation 43.8, RDW Coeff of Omega 12.7, Plt Count 130 L, MPV 9.8, Immature Gran % (Auto) 0.500, Neut % (Auto) 87.8 H, Lymph % (Auto) 3.0 L, [place] % (Auto) 8.4, Eos % (Auto) 0.0, Baso % (Auto) 0.3, Absolute Neuts (auto) 8.8 H, A bsolute Lymphs (auto) 0.30 L, Nucleated RBC % 0, Sodium 141, Potassium 4.1, Chloride 103, Carbon Dioxide 21.8, Anion Gap 16 H, BUN 30 H, Creatinine 1.57 H, Estim Creat Clear Calc 39.39 L, Est GFR (MDRD) Non-Af 45 L, BUN/Creatinine Ratio 18.9, Glucose 149 H, Lactic Acid 1.8, Calcium 9.2, Magnesium 2.0, Total Bilirubin 1.27, AST 20, ALT 6, Alkaline Phosphatase 79, Total Creatine Kinase 201 H, Troponin T High Sens 20, Total Protein 7.3, Albumin 4.1, Globulin 3.2, Albumin/Globulin Ratio 1.3 08/01/25 20:00: Urine Color Yellow, Urine Clarity Cloudy, Urine pH 6.0, Ur Specific [place] 1.015, Urine Protein 100 H, Urine Glucose (UA) Normal, Urine Ketones 15 H, Urine Occult Blood 250 H, Urine Nitrite Negative, Urine Bilirubin Negative, Urine Urobilinogen Normal, Ur Leukocyte Esterase 500 H, Urine RBC 25- 50 SEEN, Urine WBC >100 SEEN, Ur Squamous Epith Cells 0-5 SEEN, Urine Bacteria 3+, Hyaline Casts 0-5 SEEN, Urine Mucus 1+ 08/01/25 20:40: Troponin T Hi Sens 2 Hr 23 H 08/02/25 06:09: WBC 9.5, RBC 4.73, Hgb 14.7, Hct 44.2, MCV 93.4, MCH 31.1, MCHC 33.3, RDW Std Deviation 44.1 H, RDW Coeff of Omega 12.8, Plt Count 130 L, MPV 9.9, Immature Gran % (Auto) 0.500, Neut % (Auto) 80.5 H, Lymph % (Auto) 7.4 L, [place] % (Auto) 11.1 H, Eos % (Auto) 0.1, Baso % (Auto) 0.4, Absolute Neuts (auto) 7.6, A bsolute Lymphs (auto) 0.70 L, Nucleated RBC % 0, Sodium 140, Potassium 3.7, Chloride 105, Carbon Dioxide 23.1, Anion Gap 12, BUN 28 H, Creatinine 1.35 H, E stim Creat Clear Calc 46.31 L, Est GFR (MDRD) Non-Af 53 L, BUN/Creatinine Ratio 20.7 H, Glucose 99, Calcium 8.6 Micro: Microbiology 08/01/25 18:50 Mucosa - Nose SARS-CoV-2, Influenza & RSV (PCR) - Final Imaging Radiology Impression Chest X-Ray 08/01/25 19:22 IMPRESSION: No acute cardiopulmonary abnormality. Reading Location: [facility] Abdomen/Pelvis CT 08/01/25 19:35 IMPRESSION: Obstructing stone of the left ureter at L5 measuring 10.3 x 8.7 mm. Moderate to severe left hydroureteronephrosis. Left perinephric fat stranding. Mild bilateral basilar atelectatic pulmonary changes. Multiple well-defined simple hepatic cysts are noted with the largest measuring 4.2 cm, unchanged. Minimal sludge in the gallbladder. Diffuse thickening of the stomach suggestive of gastritis. Mild splenomegaly measuring 15.4 cm. Mild prostatomegaly. Diffuse thickening of the wall of the bladder, probably chronic bladder outlet obstruction. Bilateral fat containing inguinal hernias without incarceration. Uncomplicated colonic diverticulosis. Diffuse spondylosis. Uncomplicated infrarenal abdominal aortic aneurysm measuring 4.8 x 4.2 cm, increased in size since the prior exam. No CT evidence of an associated acute abnormality. Reading Location[facility]
--- NOTE | 2025-08-02 09:08 | PCM.PN.HOSP ---
Reason for Visit Chief Complaint: Generalized weakness, unable to get up from the bed for 2 to 3 days Subjective Subjective Feeling much better overall. Has some joint aches. Objective Data Objective Data Vital Signs: Vital Signs Temp Pulse Resp BP Pulse Ox O2 Del Method 36.8 C 79 18 164/84 H 95 Room Air 08/02/25 03:29 08/02/25 03:29 08/02/25 03:29 08/02/25 03:29 08/02/25 04:19 08/02/25 04:19 Oxygen Delivery Method Room Air Weight: 73.8 kg Body Mass Index (BMI) 22.0 Intake & Output: Intake and Output for Last 24 Hours 07/31/25 08/01/25 08/02/25 23:59 23:59 23:59 Intake Total 1050 / 1050 Balance 1050 / 1050 Lab / Micro Data 08/02/25 06:09 08/02/25 06:09 Labs: Laboratory Results - last 24 hr 08/01/25 18:50: WBC 10.1, RBC 5.09, Hgb 15.7, Hct 47.7, MCV 93.7, MCH 30.8, MCHC 32.9, RDW Std Deviation 43.8, RDW Coeff of Omega 12.7, Plt Count 130 L, MPV 9.8, Immature Gran % (Auto) 0.500, Neut % (Auto) 87.8 H, Lymph % (Auto) 3.0 L, [place] % (Auto) 8.4, Eos % (Auto) 0.0, Baso % (Auto) 0.3, Absolute Neuts (auto) 8.8 H, Absolute Lymphs (auto) 0.30 L, Nucleated RBC % 0, Sodium 141, Potassium 4.1, Chloride 103, Carbon Dioxide 21.8, Anion Gap 16 H, BUN 30 H, Creatinine 1.57 H, Estim Creat Clear Calc 39.39 L, Est GFR (MDRD) Non-Af 45 L, BUN/Creatinine Ratio 18.9, Glucose 149 H, Lactic Acid 1.8, Calcium 9.2, Magnesium 2.0, Total Bilirubin 1.27, AST 20, ALT 6, Alkaline Phosphatase 79, Total Creatine Kinase 201 H, Troponin T High Sens 20, Total Protein 7.3, Albumin 4.1, Globulin 3.2, Albumin/Globulin Ratio 1.3 08/01/25 20:00: Urine Color Yellow, Urine Clarity Cloudy, Urine pH 6.0, Ur Specific [place] 1.015, Urine Protein 100 H, Urine Glucose (UA) Normal, Urine Ketones 15 H, Urine Occult Blood 250 H, Urine Nitrite Negative, Urine Bilirubin Negative, Urine Urobilinogen Normal, Ur Leukocyte Esterase 500 H, Urine RBC 25-50 SEEN, Urine WBC >100 SEEN, Ur Squamous Epith Cells 0-5 SEEN, Urine Bacteria 3+, Hyaline Casts 0-5 SEEN, Urine Mucus 1+ 08/01/25 20:40: Troponin T Hi Sens 2 Hr 23 H 08/02/25 06:09: WBC 9.5, RBC 4.73, Hgb 14.7, Hct 44.2, MCV 93.4, MCH 31.1, MCHC 33.3, RDW Std Deviation 44.1 H, RDW Coeff of Omega 12.8, Plt Count 130 L, MPV 9.9, Immature Gran % (Auto) 0.500, Neut % (Auto) 80.5 H, Lymph % (Auto) 7.4 L, [place] % (Auto) 11.1 H, Eos % (Auto) 0.1, Baso % (Auto) 0.4, Absolute Neuts (auto) 7.6, Absolute Lymphs (auto) 0.70 L, Nucleated RBC % 0, Sodium 140, Potassium 3.7, Chloride 105, Carbon Dioxide 23.1, Anion Gap 12, BUN 28 H, Creatinine 1.35 H, Estim Creat Clear Calc 46.31 L, Est GFR (MDRD) Non-Af 53 L, BUN/Creatinine Ratio 20.7 H, Glucose 99, Calcium 8.6 Micro: Microbiology 08/01/25 18:50 Mucosa - Nose SARS-CoV-2, Influenza & RSV (PCR) - Final Radiography Diagnostic Testing: Radiology Impression Chest X-Ray 08/01/25 19:22 IMPRESSION: No acute cardiopulmonary abnormality. Reading Location: [facility] Abdomen/Pelvis CT 08/01/25 19:35 IMPRESSION: Obstructing stone of the left ureter at L5 measuring 10.3 x 8.7 mm. Moderate to severe left hydroureteronephrosis. Left perinephric fat stranding. Mild bilateral basilar atelectatic pulmonary changes. Multiple well-defined simple hepatic cysts are noted with the largest measuring 4.2 cm, unchanged. Minimal sludge in the gallbladder. Diffuse thickening of the stomach suggestive of gastritis. Mild splenomegaly measuring 15.4 cm. Mild prostatomegaly. Diffuse thickening of the wall of the bladder, probably chronic bladder outlet obstruction. Bilateral fat containing inguinal hernias without incarceration. Uncomplicated colonic diverticulosis. Diffuse spondylosis. Uncomplicated infrarenal abdominal aortic aneurysm measuring 4.8 x 4.2 cm, increased in size since the prior exam. No CT evidence of an associated acute abnormality. Reading Location: [place] [id number] Physical Exam Const alert and no apparent distress HEENT head/scalp atraumatic and moist oral mucous membranes Resp normal respiratory effort, no retractions, no use of accessory muscles and clear to auscultation bilaterally Cardio regular rate, regular rhythm, S1 normal heart sound and S2 normal heart sound GI normal to inspection, nondistended, normoactive bowel sounds, soft to palpation, non-tender and non-distended Neuro Sensorium / Orientation: awake and alert Psych affect normal Assessment & Plan Assessment/Plan (1) Generalized muscle weakness: (2) Kidney stone: (3) Pyelonephritis: (4) Hydroureter on left: PLAN: Plan Left obstructing ureteric stone L5 10.3 x 8.7 mm complicating into left hydroureteronephrosis and left pyelonephritis: Patient had CT abdomen pelvis with IV contrast. It shows obstructing stone at left ureter with moderate to severe left hydroureteronephrosis and left perinephric fat stranding. Patient denies dysuria or any lower urinary tract symptoms. Urologist, Dr. Quiñonez is consulted. Cystoscopy pending. Pyelonephritis perinephric stranding on CT. on CTX follow up UCx. PURA: Patient creatinine was 1.01 in 2019. Admitting BUN 30 and creatinine 1.57, BUN/creatinine ratio 19. IV fluid ordered. Creatinine was 1.61 time in 2015. Monitor kidney function. likely post-obstructive continue to monitor. Generalized weakness/lower extremity weakness probably due to pyelonephritis/infection: Patient not showing signs and symptoms of sepsis fortunately with WBC count 20.1 thousand. Lactic acid 1.8.. Muscle strength 5/5 at bilateral knee and hip joints. PT and OT ordered. CPK elevated 201 does not meet criteria for rhabdomyolysis. On IV fluid. Chronic BPH with bladder outlet obstruction: CT also shows diffuse thickening of bladder wall, chronic bladder outlet obstruction. Patient follows Dr. Quiñonez for long time. On tamsulosin continued Chronic right inguinal hernia: Right inguinal hernia is palpable with impulse on coughing. It is reducible, not incarcerated or inflamed. CAD status post cardiac stent: Patient had cardiac stent in distal left circumflex and OM in 2014. Follows [place] cardiology. On baby aspirin, metoprolol, isosorbide mononitrate and atorvastatin; continued Essential hypertension and dyslipidemia: BP is high 171/93. IV hydralazine as needed. Monitor BP and titrate antihypertensive medication accordingly. DVT prophylaxis, high risk: Started on Lovenox 40 mg subcu Charges/Coding Visit Charges Inpatient E&M: 49562 Subs Hosp L2
--- NOTE | 2025-08-02 09:14 | CASEMGMT ---
Dx: Left Kidney Stone, Pyelonephritis LACE: 2 6-Clicks: 24 Medical record reviewed and patient evaluated for identification of discharge planning needs. Based on this review, at this time criteria are not present to indicate a need for discharge planning. Will remain available to assist with discharge planning needs as identified or requested.
[2025-08-02] MEDS: Aspirin E.C. 81 MG Tablet PO (13:04)
[2025-08-02] MEDS: Cholecalciferol (VIT D3) 25 MCG TABLET (1,000 UNITS) PO (13:04)
[2025-08-02] MEDS: Vitamin B Comp W-C Capsule 1 CAP PO (13:04)
[2025-08-03] VITALS (10 sets, daily range): BP systolic 132–165; BP diastolic 85–106; PULSE 62–74; RESP 16–17; TEMP 36.4–37.1; O2SAT 93–99; BMI 21.9
[2025-08-03] MEDS: 0.9% Saline Lock 10 ML Syringe IV (00:09)
[2025-08-03 05:58] LABS: Hematocrit 41.8 % (40-54); Hemoglobin 14.0 g/dL (13.0-16.5); Immature Granulocytes Count 0.040 X10^3/uL (0.0-0.0); Mean Corp Hgb Conc 33.5 g/dL (32-36); Mean Corpuscular Volume 93.1 fL (80-94); Mean Platelet Vol. 9.9 fl (6.2-12.0); NRBC Flagged by Analyzer 0 % (0-5); Platelet Count 139 K/mm3 (150-450); RBC Distribution Width CV 12.9 % (11.6-14.6); RBC Distribution Width SD 44.1 fl (35.1-43.9); Red Blood Count 4.49 M/mm3 (4.6-6.2); White Blood Count 8.5 K/mm3 (4.4-11.0)
[2025-08-03 06:25] LABS: Anion Gap 10 (5-15); BUN 26 mg/dL (4-19); BUN/Creat Ratio 20.6 RATIO (10-20); Calcium,Total 8.4 mg/dL (7.6-11.0); Carbon Dioxide 22.7 mmol/L (21.0-32.0); Chloride 104 mmol/L (98-108); Estimated Creatinine Clearance 48.65 ml/min (50-250); Glucose 93 mg/dL (70-99); Potassium 3.8 mmol/L (3.3-5.1)
--- NOTE | 2025-08-03 08:59 | PN.HOSP_ITS ---
Reason for Visit Chief Complaint: Generalized weakness, unable to get up from the bed for 2 to 3 days Subjective Subjective Feeling well post cystoscopy. Much of the pressure has been relieved. Objective Data Objective Data Vital Signs: Vital Signs Temp Pulse Resp BP Pulse Ox O2 Del Method 37.1 C 74 16 132/86 H 94 Room Air 08/03/25 02:25 08/03/25 02:25 08/03/25 02:25 08/03/25 02:25 08/03/25 02:25 08/03/25 07:54 Oxygen Delivery Method Room Air Weight: 73.5 kg Body Mass Index (BMI) 21.9 Intake & Output: Intake and Output for Last 24 Hours 08/01/25 08/02/25 08/03/25 23:59 23:59 23:59 Intake Total 1050 / 1050 1720 / 1820 1150 / 1150 Balance 1050 / 1050 1720 / 1820 1150 / 1150 Lab / Micro Data 08/03/25 05:35 08/03/25 05:35 Labs: Laboratory Results - last 24 hr 08/03/25 05:35: WBC 8.5, RBC 4.49 L, Hgb 14.0, Hct 41.8, MCV 93.1, MCH 31.2, MCHC 33.5, RDW Std Deviation 44.1 H, RDW Coeff of Omega 12.9, Plt Count 139 L, MPV 9.9, Immature Gran % (Auto) 0.500, Neut % (Auto) 71.3 H, Lymph % (Auto) 12.0 L, [place] % (Auto) 14.4 H, Eos % (Auto) 1.3, Baso % (Auto) 0.5, Absolute Neuts (auto) 6.0, Absolute Lymphs (auto) 1.02, Nucleated RBC % 0, Sodium 137, Potassium 3.8, Chloride 104, Carbon Dioxide 22.7, Anion Gap 10, BUN 26 H, Creatinine 1.28 H, E stim Creat Clear Calc 48.65 L, Est GFR (MDRD) Non-Af 57 L, BUN/Creatinine Ratio 20.6 H, Glucose 93, Calcium 8.4 Micro: Microbiology 08/01/25 18:50 Mucosa - Nose SARS-CoV-2, Influenza & RSV (PCR) - Final Physical Exam Const alert and no apparent distress Constitutional Narrative: Up in the chair. Nontoxic. Assessment & Plan Assessment/Plan (1) Generalized muscle weakness: (2) Kidney stone: (3) Pyelonephritis: (4) Hydroureter on left: PLAN: Plan Left obstructing ureteric stone * L5 10.3 x 8.7 mm complicating into left hydroureteronephrosis and left pyelonephritis: * Patient had CT abdomen pelvis with IV contrast. It shows obstructing stone at left ureter with moderate to severe left hydroureteronephrosis and left perinephric fat stranding. * Patient denies dysuria or any lower urinary tract symptoms. * Cystoscopy performed today and patient had manipulation of the ureteral calculi and left stent placement. * Patient will follow-up with urology for further removal of the stone. Pyelonephritis * perinephric stranding on CT. * on CTX * follow up UCx shows multiple organisms. Given the concern that there could be pyelonephritis, patient will be on antibiotics for 1 more week. * Will discharge with levofloxacin PURA: * Patient creatinine was 1.01 in 2019. Admitting BUN 30 and creatinine 1.57, BUN/creatinine ratio 19. IV fluid ordered. Creatinine was 1.61 time in 2014. Monitor kidney function. * likely post-obstructive * continue to monitor. Generalized weakness/lower extremity weakness probably due to pyelonephritis/infection: * Patient not showing signs and symptoms of sepsis fortunately with WBC count 20.1 thousand. Lactic acid 1.8.. Muscle strength 5/5 at bilateral knee and hip joints. PT and OT ordered. CPK elevated 201 does not meet criteria for rhabdomyolysis. On IV fluid. Chronic BPH with bladder outlet obstruction: CT also shows diffuse thickening of bladder wall, chronic bladder outlet obstruction. Patient follows Dr. Quiñonez for long time. On tamsulosin continued Chronic right inguinal hernia: Right inguinal hernia is palpable with impulse on coughing. It is reducible, not incarcerated or inflamed. CAD status post cardiac stent: Patient had cardiac stent in distal left circumflex and OM in 2014. Follows [place] cardiology. On baby aspirin, metoprolol, isosorbide mononitrate and atorvastatin; continued Essential hypertension and dyslipidemia: BP is high 171/93. IV hydralazine as needed. Monitor BP and titrate antihypertensive medication accordingly. Discharge home today.
--- NOTE | 2025-08-03 11:13 | PCM.PRE.AN2 ---
ASA Classification* ASA Classification ASA Classification: 2 and E Assessment & Plan Anesthesia* Anesthesia Assessment Anesthesia Assessment: Discussed sedation and/or anesthesia options, risks, benefits, and alternatives with patient/parents/legal guardian/POA. Questions invited. The patient/parents/legal guardian/POA seems to understand and agrees to proceed with anesthesia plan. Reviewed the physical assessment, medical history, allergy history and patient home medications list prior to surgery/procedure/anesthetic and documented any changes. Performed airway and anesthesia risk assessments. Anesthesia Type Anesthesia Type: General History Source History Obtained from:: Patient and Chart Anesthesia Focused Assessment* Temperature: 98.5 F Pulse Rate: 65 Blood Pressure: 138/85 Respiratory Rate: 17 Pulse Ox: 94 Oxygen Delivery Method: Room Air Airway Assessment Mouth opens: >3 cm Mallampati Score: II Teeth Condition: Missing Neck Range of motion (ROM): Full ROM Labs Anesthesia Preop lab: CBC WBC, (4.4-11.0) 8.5 K/mm3 Today, 05:35 RBC, (4.6-6.2) 4.49 M/mm3 L Today, 05:35 Hgb, (13.0-16.5) 14.0 g/dL Today, 05:35 Hct, (40-54) 41.8 % Today, 05:35 Plt Count, (150-450) 139 K/mm3 L Today, 05:35 CHEMISTRY Potassium, (3.3-5.1) 3.8 mmol/L Today, 05:35 Sodium, (133-145) 137 mmol/L Today, 05:35 Magnesium, (1.5-2.2) 2.0 mg/dL 08/01/25, 18:50 BUN, (4-19) 26 mg/dL H Today, 05:35 Creatinine, (0.70-1.20) 1.28 mg/dL H Today, 05:35 Glucose, (70-99) 93 mg/dL Today, 05:35 COAG PT, (11.7-14.9) 13.0 SECONDS 10/08/18, 11:06 Pre-Assessment Diagnosis/Proposed Procedure Planned Operative Procedure(s): Retrograde cystoscopy, stent insertion Anesthesia History Anesthesia 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 When Was Last Pacemaker Check QUESTION #4 FULL TEXT: You/Your Family Experience fever (hyperthermia) with Anesthesia Last Oral Intake Last Oral intake: Last Oral Intake NPO since Meds taken in AM with sips of water? Meds patient instructed to take am of surgery PONV PONV - security advisor: PONV - security advisor Female HX of Motion Sickness HX of N/V After Surgery Non-Smoker Duration of Surgery greater than 60 minutes Number of Risk Factors PONV Score Height & Weight Height & Weight: Anesthesia: Height & Weight Height 6 ft 08/02/25 10:43 Weight: 73.5 kg 08/03/25 03:40 Body Mass Index (BMI) 21.9 08/03/25 03:40 Respiratory Assessment Respiratory Assessment - security advisor: Respiratory Tract Infection Hx - security advisor Hx Respiratory Tract Infection No 08/02/25 03:32 STOP Sleep Apnea STOP Sleep Apnea - security advisor: STOP Sleep Apnea - security advisor Hx Hypertension No 08/02/25 12:13 Hx Sleep Apnea No 08/02/25 03:10 CPAP BIPAP Do you snore loudly (louder Yes 08/02/25 03:10 than talking or can be heard Do you often feel tired/ Yes 08/02/25 03:10 fatigued/ sleepy during daytime? Has anyone observed you stop No 08/02/25 03:10 breathing during sleep? STOP Results Positive 08/02/25 03:10 QUESTION #5 FULL TEXT : Do you snore loudly (louder than talking or can be heard through closed doors)? 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 Specify any problems Hx of Preganancy in last 3 N/A 08/02/25 03:10 Months Nurse Filling Out Transfusion EAFFOLTER 08/02/25 03:10 & Questions: Date: 08/02/25 08/02/25 03:10 Time: 03:12 08/02/25 03:10 Patient unable to answer at this time (ie. confused, unrespo /Reproduction History /Reproductive History - security advisor: /Reproductive Hx- security advisor Hx Now No 08/02/25 03:32 Gestational Age (in weeks): EDC: Hx Hx Para Hx Section SAB No 08/02/25 03:32 Does the father of the baby or his family experience fever w Father of the baby Malignant Hypertension history comment Active Medications Active Medications: Current Medications Generic Name Dose Route Start Last Admin Trade Name Freq PRN Reason Stop Dose Admin Acetaminophen 650 mg 08/02/25 03:04 08/02/25 03:41 Acetaminophen 325 Mg Tablet PO 650 mg Q6H PRN PRN Administration Pain 1-10 Or Fever>100.7 Aspirin 81 mg 08/02/25 08:00 08/02/25 13:04 Aspirin E.C. 81 Mg Tablet PO 81 mg BREAKFAST CHARLES Administration Atorvastatin Calcium 80 mg 08/02/25 22:00 08/02/25 20:58 Atorvastatin Calcium 80 Mg Tablet PO 80 mg QODAY@2200 CHARLES Administration Cholecalciferol 25 mcg 08/02/25 10:00 08/02/25 13:04 Cholecalciferol (Vit D3) 25 Mcg Tablet (1,000 Units) PO 25 mcg DAILY CHARLES Administration Enoxaparin Sodium 40 mg 08/02/25 14:00 08/02/25 13:04 Enoxaparin 40 Mg/0.4 Ml Syringe SC 40 mg DAILY CHARLES Administration Escitalopram Oxalate 20 mg 08/02/25 10:00 08/02/25 13:04 Escitalopram Oxalate 20 Mg Tablet PO 20 mg DAILY CHARLES Administration Ceftriaxone Sodium 1 gm in 50 mls @ 100 mls/hr 08/02/25 22:00 08/03/25 00:08 Rocephin IV Infused 2200 CHARLES Infusion Sodium Chloride 250 mls @ 15 mls/hr 08/02/25 03:04 IV .[id number] PRN Saline Flush Sodium Chloride 250 mls @ 15 mls/hr 08/02/25 03:04 IV .[id number] PRN Additional IVPB Infusion Lactated Ringer's 1,000 mls @ 15 mls/hr 08/03/25 11:00 IV .Q48H CHARLES Isosorbide Mononitrate 30 mg 08/02/25 10:00 08/02/25 10:17 Isosorbide Mononitrate 30 Mg Tablet PO 30 mg DAILY CHARLES Administration Protocol Metoprolol Tartrate 50 mg 08/02/25 10:00 08/03/25 09:33 Metoprolol Tartrate 50 Mg Tablet PO 50 mg BID CHARLES Administration Protocol Multivitamins 1 cap 08/02/25 10:00 08/02/25 13:04 Vitamin B Comp W-C Capsule PO 1 cap DAILY CHARLES Administration Nitroglycerin 0.4 mg 08/02/25 03:04 Nitroglycerin (Inpatient Use) 0.4 Mg Tab.Subl SL Q5M PRN Chest Pain Oxycodone HCl 2.5 - 5 mg 08/02/25 03:04 Oxycodone 5 Mg Tablet PO Q4H PRN PRN Pain Score 4-10 Senna/Docusate Sodium 2 tablet 08/02/25 03:04 Senna/Docusate Sodium 1 Tablet PO BID PRN PRN Constipation Sodium Chloride 10 - 40 ml 08/02/25 03:04 08/03/25 00:09 0.9% Saline Lock 10 Ml Syringe IV 10 ml UD PRN Administration SALINE FLUSH Tamsulosin HCl 0.4 mg 08/02/25 22:00 08/02/25 20:59 Tamsulosin Hcl 0.4 Mg Capsule PO 0.4 mg QHS CHARLES Administration PFSH Medical History Right inguinal hernia Cancer Cataracts, bilateral Skin cancer Pure hypercholesterolemia Chest pain Nonrheumatic mitral valve disorder Presence of stent in coronary artery (~03/15/15) Essential hypertension Mitral valve disorder Myocardial infarction Hypertension Atherosclerotic heart disease of [place] coronary artery without angina pectoris intermediate designer use of drug Home Medications ?Medication ?Instructions ?Recorded ?Last Taken ?Type B-complex with vitamin C (Super B 1 tab PO DAILY 11/02/19 08/01/25 History Complex-Vitamin C tablet) cholecalciferol (vitamin D3) 25 25 mcg PO DAILY 11/02/19 08/01/25 History mcg (1,000 unit) tablet nitroglycerin 0.4 mg sublingual 0.4 mg sublingual Q5M PRN Chest 11/02/19 Unknown Rx tablet Pain #90 tabs atorvastatin 80 mg tablet 80 mg PO Q OTHER DAY 01/09/22 07/31/25 History escitalopram oxalate 20 mg tablet 20 mg PO QDAY 06/04/24 07/31/25 History isosorbide mononitrate 30 mg 30 mg PO DAILY #90 tabs 12/21/24 08/01/25 Rx tablet,extended release 24 hr aspirin 81 mg tablet,delayed 81 mg PO QDAY #90 tabs 06/08/25 08/01/25 Rx release (Adult Aspirin Regimen) metoprolol tartrate 50 mg tablet 50 mg PO BID 08/01/25 08/01/25 History tamsulosin 0.4 mg capsule 0.4 mg PO QHS 08/01/25 07/31/25 History Allergy/AdvReac Type Severity Reaction Status Date / Time No Known Allergies Allergy Verified 08/01/25 18:32 Family History Father CVA (cerebral vascular accident) Mother Rheumatic fever FH: CABG (coronary artery bypass surgery) Surgical History Status post percutaneous transluminal coronary angioplasty (~02/24/15) History of appendectomy Postsurgical percutaneous transluminal coronary angioplasty (PTCA) status Social History Smoking Status: Current every day smoker tobacco type: cigarettes alcohol intake: current alcohol intake frequency: a few times a week Alcohol type: beer substance use type: does not use caffeine: Yes Type: coffee Number of servings: 3 what type of physical activity do you participate in: none seatbelt use: always do you feel safe at home: Yes Review of Systems (Anesthesia) ROS Narrative System reviewed and no additional complaints, except as documented.
[2025-08-03] MEDS: Lidocaine 1% (5 ml sdv) 5 ML Vial IV (12:12)
[2025-08-03] MEDS: fentaNYL 100 MCG/2 ML Ampul 50 MCG IV (12:21)
--- NOTE | 2025-08-03 12:31 | OP.PCM_ITS ---
Operative Report (Standard) Operative Information Date of Procedure: 08/03/25 Pre-Operative Diagnosis: Impacted left ureteral calculi with hydronephrosis Post-Operative Diagnosis: The same Surgery/Procedure Performed: Cystoscopy, manipulation of ureteral calculi and left stent placement bead machine operator: No Type of Anesthesia: General RN Documented Start/Stop Times: Operation Date: 08/03/25 12:00 Case Time Into Pre-Op 08/03/25 11:00 Out of Pre-Op 08/03/25 12:06 Anesthesia Start 08/03/25 12:10 Into Room 08/03/25 12:10 Procedure Start 08/03/25 12:17 Procedure Start Time: 12:10 Procedure Stop Time: 12:31 Select all DRAINS/GRAFTS/IMPLANTS that apply: Drains Drain details: 6 x 26 stent Estimated Blood Loss: None Specimen collected: No Description of surgery: Patient was taken back to the operating room after induction of general anesthesia, the patient was placed in dorsolithotomy position. The urethra and genitals were prepped and draped in usual sterile fashion. Using a 21 Chinese rigid cystourethroscope the entire length of the urethra was normal then went into the bladder. Identified the trigone the left and right ureteral orifice. I then cannulated the left orifice and advanced a wire up into the kidney. Stone was impacted in the mid left ureter the stent and the wire would not go past initially tried multiple wires different sizes used the backside of the wire injected lidocaine and jelly lubricating Lyracaine up there finally was able to dislodge the stone little bit after manipulation and was able to get a wire past the stone quite difficult and then I got a Super Stiff wire passed the stone and then over the Super Stiff wire was able to place a stent I then backloaded a 5 Chinese open ended catheter over the wire and injected contrast to delineate the anatomy. After the retrograde was performed I then used fluoroscopic images and guidance to advanced a wire up into the kidney and over the 0.038 glidewire I advanced a 6 Chinese by 26 cm double pigtail stent. I then pulled the 0.038 Glidewire off and the stent coiled in the kidney bladder good position. The bladder was then drained. We confirmed the position of the stent by fluoroscopy. Patient anesthetic was reversed and was taken back to the PACU in good condition. Surgical Findings: Impacted stone in the left ureter had to use multiple wires and and manipulation of the stone to get the stent in Complications Complications: No Admit VTE Documentation VTE Present on Admission: No VTE Mechan Device Prophylaxis: SCD's VTE Pharm Prophylaxis ordered?: No
--- NOTE | 2025-08-03 12:41 | PCM.POST.ANE ---
Anesthesia: Postop Eval I Current Vital Signs Temperature: 97.6 F Pulse Rate: 64 Blood Pressure: 146/88 Respiratory Rate: 16 Pulse Ox: 99 Oxygen Delivery Method: Room Air Assessment Airway patent: Yes Spontaneous unlabored respirations: Yes Mental status: Awake and Calm nausea: No Vomiting: No Anesthesia Complication: No Fluid Hydration Crystalloid volume administer (ml): 400 Total IV fluid infused: 400 Progress Note Anesthesia document: Postop Eval 1 completed: Yes
[2025-08-03] MEDS: Vitamin B Comp W-C Capsule 1 CAP PO (14:01)
[2025-08-03] MEDS: Aspirin E.C. 81 MG Tablet PO (14:01)
[2025-08-03] MEDS: Cholecalciferol (VIT D3) 25 MCG TABLET (1,000 UNITS) PO (14:02)
--- NOTE | 2025-08-03 15:26 | DS.PCM_ITS ---
Providers Date of Admission: 08/02/25 Primary Care Physician: Dr. Catherine Cota, DO Consultations 08/02/25 02:57 Consult: Urology Routine Consulting Provider: Torin Quiñonez Reason for Consult: Left hydroureteronephrosis, large ureteric stone. EMERGENT Consult: No MD Notified: Yes Date Notified: 08/02/25 Time Notified: 01:57 Method of Notification: ED Physician Initiated Reason For Visit: LEFT KIDNEY STONE WITH PYSLONEPHRITIS Diagnosis Discharge Diagnosis (1) Generalized muscle weakness: Status: Acute Code(s): M62.81 - Muscle weakness (generalized) (2) Kidney stone: Status: Acute Code(s): N20.0 - Calculus of kidney (3) Pyelonephritis: Status: Acute Code(s): N12 - Tubulo-interstitial nephritis, not specified as acute or chronic (4) Hydroureter on left: Status: Acute Code(s): N13.4 - Hydroureter Plan Left obstructing ureteric stone * L5 10.3 x 8.7 mm complicating into left hydroureteronephrosis and left pyelonephritis: * Patient had CT abdomen pelvis with IV contrast. It shows obstructing stone at left ureter with moderate to severe left hydroureteronephrosis and left perinephric fat stranding. * Patient denies dysuria or any lower urinary tract symptoms. * Cystoscopy performed today and patient had manipulation of the ureteral calculi and left stent placement. * Patient will follow-up with urology for further removal of the stone. Pyelonephritis * perinephric stranding on CT. * on CTX * follow up UCx shows multiple organisms. Given the concern that there could be pyelonephritis, patient will be on antibiotics for 1 more week. * Will discharge with levofloxacin PURA: * Patient creatinine was 1.01 in 2019. Admitting BUN 30 and creatinine 1.57, BUN/creatinine ratio 19. IV fluid ordered. Creatinine was 1.61 time in 2015. Monitor kidney function. * likely post-obstructive * continue to monitor. Generalized weakness/lower extremity weakness probably due to pyelonephritis/infection: * Patient not showing signs and symptoms of sepsis fortunately with WBC count 20.1 thousand. Lactic acid 1.8.. Muscle strength 5/5 at bilateral knee and hip joints. PT and OT ordered. CPK elevated 201 does not meet criteria for rhabdomyolysis. On IV fluid. Chronic BPH with bladder outlet obstruction: CT also shows diffuse thickening of bladder wall, chronic bladder outlet obstruction. Patient follows Dr. Quiñonez for long time. On tamsulosin continued Chronic right inguinal hernia: Right inguinal hernia is palpable with impulse on coughing. It is reducible, not incarcerated or inflamed. CAD status post cardiac stent: Patient had cardiac stent in distal left circumflex and OM in 2014. Follows [place] [facility]. On baby aspirin, metoprolol, isosorbide mononitrate and atorvastatin; continued Essential hypertension and dyslipidemia: BP is high 171/93. IV hydralazine as needed. Monitor BP and titrate antihypertensive medication accordingly. Discharge home today. Medications at Discharge Home Medications B-complex with vitamin C (Super B Complex-Vitamin C tablet) 1 tab PO DAILY 11/02/19 cholecalciferol (vitamin D3) 25 mcg (1,000 unit) tablet 25 mcg PO DAILY 11/02/19 nitroglycerin 0.4 mg sublingual tablet 0.4 mg sublingual Q5M PRN Chest Pain #90 tabs 11/02/19 atorvastatin 80 mg tablet 80 mg PO Q OTHER DAY 01/09/22 escitalopram oxalate 20 mg tablet 20 mg PO QDAY 06/04/24 isosorbide mononitrate 30 mg tablet,extended release 24 hr 30 mg PO DAILY #90 tabs 12/21/24 aspirin 81 mg tablet,delayed release (Adult Aspirin Regimen) 81 mg PO QDAY #90 tabs 06/08/25 metoprolol tartrate 50 mg tablet 50 mg PO BID 08/01/25 tamsulosin 0.4 mg capsule 0.4 mg PO QHS 08/01/25 levofloxacin 500 mg tablet 500 mg PO DAILY #7 tabs 08/03/25 Hospital Course Operations - (cystoscopy) Procedures None Summary of Care Provided Hospital Course: Greater than 30-minute spent on discharge Weight / BMI Weight Weight: 73.5 kg Body Mass Index (BMI) 21.9 ABG / Lab / Microbiology Data 08/03/25 05:35 08/03/25 05:35 Laboratory: Laboratory Results - last 24 hr 08/03/25 05:35: WBC 8.5, RBC 4.49 L, Hgb 14.0, Hct 41.8, MCV 93.1, MCH 31.2, MCHC 33.5, RDW Std Deviation 44.1 H, RDW Coeff of Omega 12.9, Plt Count 139 L, MPV 9.9, Immature Gran % (Auto) 0.500, Neut % (Auto) 71.3 H, Lymph % (Auto) 12.0 L, [facility] % (Auto) 14.4 H, Eos % (Auto) 1.3, Baso % (Auto) 0.5, Absolute Neuts (auto) 6.0, Absolute Lymphs (auto) 1.02, Nucleated RBC % 0, Sodium 137, Potassium 3.8, Chloride 104, Carbon Dioxide 22.7, Anion Gap 10, BUN 26 H, Creatinine 1.28 H, E stim Creat Clear Calc 48.65 L, Est GFR (MDRD) Non-Af 57 L, BUN/Creatinine Ratio 20.6 H, Glucose 93, Calcium 8.4 Microbiology: Microbiology 08/01/25 20:00 Urine, Clean Catch Urine Culture - Preliminary Mixed Gram Positive Organisms 08/01/25 18:50 Mucosa - Nose SARS-CoV-2, Influenza & RSV (PCR) - Final D/C Instructions DC O2, CPAP, BIPAP Needs Home O2 Discharge instructions: No Meaningful Use Info Meaningful Use Meaningful Use Diagnoses (Choose all that apply): None applicable Discharge Plan Admission Admit Date/Time: 08/02/25 02:31 Primary Reason for Your Visit: Left ureteral calculi. Pyelonephritis. Attending Provider: De Siddiqui Primary Care Provider: Catherine Cota Consulting Providers: Torin Quiñonez; Jasvir Molina Discharge Orders/Prescriptions Prescriptions: New levofloxacin 500 mg tablet 500 mg PO DAILY Qty: 7 0RF Continued B-complex with vitamin C [Super B Complex-Vitamin C] Tablet 1 tab PO DAILY cholecalciferol (vitamin D3) 25 mcg (1,000 unit) tablet 25 mcg PO DAILY nitroglycerin 0.4 mg tablet, sublingual 0.4 mg SUBLINGUAL Q5M PRN (Reason: Chest Pain) Qty: 90 6RF atorvastatin 80 mg tablet 80 mg PO Q OTHER DAY escitalopram oxalate 20 mg tablet 20 mg PO QDAY aspirin [Adult Aspirin Regimen] 81 mg tablet,delayed release (DR/EC) 81 mg PO QDAY Qty: 90 3RF metoprolol tartrate 50 mg tablet 50 mg PO BID tamsulosin 0.4 mg capsule 0.4 mg PO QHS isosorbide mononitrate 30 mg tablet extended release 24 hr 30 mg PO DAILY Qty: 90 3RF Referrals / Follow Up: Torin Quiñonez MD [Med Staff - Active Staff, Urology] - Within 1 Week Catherine Cota DO [Primary Care Provider, Internal Medicine] - Within 2 Weeks Disposition Disposition (needs filled in before D/C Order can be placed): Home, Self Care Charges/Coding Visit Charges Inpatient E&M: [id number] Disch Hosp >30min
--- NOTE | 2025-08-03 15:35 | POSTOPAN2_ITS ---
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.SKOBY Spontaneous unlabored Yes 08/03/25 12:42 MEDICAL LABORATORY ASSISTANT.JARED respirations Mental status Awake,Calm 08/03/25 12:42 MEDICAL LABORATORY ASSISTANT.SKOBY nausea No 08/03/25 12:42 MEDICAL LABORATORY ASSISTANT.DANAOBY Vomiting No 08/03/25 12:42 MEDICAL LABORATORY ASSISTANT.DANAOBIndira Anesthesia Postop Eval I: Fluid Summary Crystalloid volume administer 400 08/03/25 12:42 MEDICAL LABORATORY ASSISTANT.SKOBY (ml) Colloids volume administered ( ml) Blood Product volume administered (ml) Total IV fluid infused 400 08/03/25 12:42 MEDICAL LABORATORY ASSISTANT.DANAOBIndira Anesthesia Postop Eval I: Summary Notes Anesthesia Complication No 08/03/25 12:42 MEDICAL LABORATORY ASSISTANT.JARED Anesthesia Complication Comment: Post-operative progress note Anesthesia: Postop Eval II Evaluation Mental status: Awake and Calm Pain Level: 1 nausea: No Vomiting: No Complications Anesthesia Complication: No
--- NOTE | 2025-08-03 15:35 | PCM.POSTANE2 ---
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 CRUST MIXER.[email or web address] Spontaneous unlabored Yes 08/03/25 12:42 PIE CRUST MIXER.JARED respirations Mental status Awake,Calm 08/03/25 12:42 PIE CRUST MIXER.SKOBY nausea No 08/03/25 12:42 PIE CRUST MIXER.DANAOBY Vomiting No 08/03/25 12:42 PIE CRUST MIXER.DANAOBIndira Anesthesia Postop Eval I: Fluid Summary Crystalloid volume administer 400 08/03/25 12:42 PIE CRUST MIXER.SKOBY (ml) Colloids volume administered ( ml) Blood Product volume administered (ml) Total IV fluid infused 400 08/03/25 12:42 PIE CRUST MIXER.DANAOBIndira Anesthesia Postop Eval I: Summary Notes Anesthesia Complication No 08/03/25 12:42 PIE CRUST MIXER.JARED Anesthesia Complication Comment: Post-operative progress note Anesthesia: Postop Eval II Evaluation Mental status: Awake and Calm Pain Level: 1 nausea: No Vomiting: No Complications Anesthesia Complication: No
--- NOTE | 2025-08-03 15:59 | CASEMGMT ---
Patient has order for discharge. RN CM in to discuss needs at discharge, family at bedside. Patient denies needs or help at discharge. Patient had no further questions or concerns.
== END 2025-08-03 17:22 | disposition home or self-care (01) | DRG 660 ==
LOC: ED 08-02 02:21 → PCU 08-02 02:38
PROVIDERS: Urology; Admitting Provider Internal Medicine; Emergency Provider Surgery; PCP Internal Medicine
PROC: 0T778DZ Dilation of Left Ureter with Intraluminal Device, Via Natural or Artificial Opening Endoscopic (ICD-10-PCS; CPT 52332; principal; 2025-08-03 11:50)
DX: N10 Acute pyelonephritis (principal); N13.8 Other obstructive and reflux uropathy; Z66 Do not resuscitate; I10 Essential (primary) hypertension; N17.9 Acute kidney failure, unspecified; E78.00 Pure hypercholesterolemia, unspecified; I25.10 Atherosclerotic heart disease of native coronary artery without angina pectoris; F17.210 Nicotine dependence, cigarettes, uncomplicated; E86.0 Dehydration; I25.2 Old myocardial infarction; N13.6 Pyonephrosis; N40.1 Benign prostatic hyperplasia with lower urinary tract symptoms; N32.0 Bladder-neck obstruction; M62.81 Muscle weakness (generalized); Z95.5 Presence of coronary angioplasty implant and graft; Z79.82 Long term (current) use of aspirin; Z79.899 Other long term (current) drug therapy
CPT/HCPCS: 36415; 71046; 74177; 76000; 80048; 80053; 81001; 82550; 83605; 83735; 84484; 85025; 87086; 87088; 87631; 93005; 97162; 97166; 99285; C1769; Q9967; A4216; C2617; J2405

== ENCOUNTER → 2025-08-06 | Outpatient (CLI) | payer MEDICARE, OTHER, SELFPAY ==
[2025-08-06 10:40] LABS: Anion Gap 9 (5-15); BUN 27 mg/dL (4-19); BUN/Creat Ratio 17.6 RATIO (10-20); Calcium,Total 9.0 mg/dL (7.6-11.0); Carbon Dioxide 28.1 mmol/L (21.0-32.0); Chloride 104 mmol/L (98-108); Glucose 92 mg/dL (70-99); Potassium 4.0 mmol/L (3.3-5.1)
== END | disposition home or self-care (01) ==
LOC: CIMLAB 08:15
PROVIDERS: PCP Internal Medicine; Referring Provider Internal Medicine; Visit Provider Internal Medicine
DX: N17.9 Acute kidney failure, unspecified (principal)
CPT/HCPCS: 36415; 80048

== ENCOUNTER → 2025-08-09 | Outpatient (CLI) | payer MEDICARE, OTHER, SELFPAY ==
[2025-08-10 16:09] LABS: PSA, Total 3.9 ng/mL (0.0-4.0)
== END | disposition home or self-care (01) ==
LOC: CIMLAB 08:45
PROVIDERS: PCP Internal Medicine; Referring Provider Internal Medicine; Visit Provider Internal Medicine
DX: Z12.5 Encounter for screening for malignant neoplasm of prostate (principal)
CPT/HCPCS: 36415; 84153